=== PATIENT | male | born 1960 | race Caucasian/White ===

== ENCOUNTER 2023-10-28 09:11 | Outpatient (OUT) | payer OTHER, SELFPAY ==
[2023-10-28 10:10] LABS: Estimated Average Glucose 111 mg/dL; Glycohemoglobin A1C 5.5 % (4.5-6.2)
[2023-10-28 10:23] LABS: Basophils Absolute Auto 0.1 10^3/uL (0.0-0.1); Basophils Percent Auto 0.8 % (0.2-2.0); Eosinophils Absolute Auto 0.1 10^3/uL (0.0-0.7); Eosinophils Percent Auto 1.1 % (0.9-7.0); Hematocrit 40.8 % (42.0-54.0); Hemoglobin 12.8 g/dL (14.0-18.0); Immature Granulocytes Abs Auto 0.09 10^3/uL (0.00-0.03); Immature Granulocytes Pct Auto 0.8 % (0.0-0.5); Lymphocytes Absolute Auto 1.6 10^3/uL (1.2-3.8); Lymphocytes Percent Auto 14.5 % (20.5-60.0); Mean Corpuscular HGB Conc 31.4 g/dL (29.9-35.2); Mean Corpuscular Hemoglobin 26.3 pg (25.9-34.0); Mean Platelet Volume 9.5 fL (9.5-13.5); Monocytes Absolute Auto 0.8 10^3/uL (0.3-0.8); Monocytes Percent Auto 7.4 % (1.7-12.0); Neutrophils Absolute Auto 8.4 10^3/uL (1.4-6.5); Neutrophils Percent Auto 75.4 % (43.0-75.0); Platelet Count 280 10^3/uL (150-450); Red Blood Count 4.86 10^6/uL (4.70-6.10); White Blood Count 11.1 10^3/uL (4.0-11.0)
[2023-10-28 12:57] LABS: Alanine Aminotransferase 21 U/L (16-63); Albumin Globulin Ratio 0.7; Albumin Level 3.2 g/dL (3.4-5.0); Alkaline Phosphatase 62 U/L (46-116); Anion Gap 11.7; Aspartate Amino Transferase 21 U/L (15-37); Bilirubin Total 0.1 mg/dL (0.2-1.0); Calcium 8.9 mg/dL (8.5-10.1); Carbon Dioxide 30.3 mmol/L (21.0-32.0); Chloride 101 mmol/L (98-107); Chol HDL Ratio 3.5; Cholesterol 130 mg/dL (<=200); Estimated GFR (African America 52 (>=60); Estimated GFR (Non-African Ame 43 (>=60); Globulin 4.7 g/dL; Glucose 103 mg/dL (74-106); HDL Cholesterol 37 mg/dL (40-60); Sodium 139 mmol/L (136-145); Total Protein 7.9 g/dL (6.4-8.2); Triglycerides 166 mg/dL (<=150); Uric Acid 4.2 mg/dL (3.5-7.2); VLDL CHOLESTEROL 33.2 mg/dL
[2023-10-28 13:05] LABS: Prostate Specific Antigen Scrn 0.45 ng/mL (<=4.00)
[2023-10-29 14:07] LABS: Insulin 31.8 uIU/mL (2.6-24.9)
== END 2023-10-28 09:12 | disposition home or self-care (01) ==
PROVIDERS: PCP Nurse Practitioner Family; Visit Provider Nurse Practitioner Family
DX: Z00.00 Encounter for general adult medical examination without abnormal findings (principal); Z12.5 Encounter for screening for malignant neoplasm of prostate
CPT/HCPCS: 36415; 80053; 80061; 83036; 83525; 84550; 85025; G0103

== ENCOUNTER 2024-03-01 21:07 | Emergency (ER) | payer OTHER, SELFPAY ==
--- OUTSIDE RECORDS SUMMARY | 2024-03-01 21:13 | XMS_ITS | CCD ---
Author Organization [facility] Inform ion Partnership [facility] Care Team Providers Care Attendant Child Activity Name Role Phone JANESSA DAVALOS Attending Unavailable JANESSA DAVALOS Consulting Unavailable JANESSA DAVALOS Primary Care Unavailable JANESSA DAVALOS Admitting Unavailable Results Test Name Value Interpretation Reference Range Facil ity CBC AUTO DIFFon 08-29-2022 BASO # 0.1 103/ul Normal 0.0-0.1 [facility] Comment on above: Performed By: #### C BC #### [facility] [address] [place] [address] Dr. Med Angulo Basophils/100 WBC (Bld) 0.6 % Normal 0.2-2.0 [facility] Comment on above: Performed By: #### C BC #### [facility] [address] [address] [address] Med Angulo EO # 0.2 103/ul Normal 0.0-0.7 [facility] Comment on above: Performed By: #### C BC #### [facility] [address] [address] [address] Med Angulo Eosinophils/100 WBC (Bld) 1.3 % Normal 0.9-7.[address] [facility] Comment on above: Performed By: #### C BC #### [facility] [address] [address] [address] Med Anguol Erythrocyte distribution width (RBC) [Ratio] 13.8 % Normal 11.0-15.0 [facility] Comment on above: Performed By: #### C BC #### [facility] [address] [place] [address] Dr. Med Angulo Hematocrit (Bld) [Volume fraction] 40.6 % Critically low 42.0-54.0 [facility] Comment on above: Performed By: #### C BC #### [facility] [address] [place] [address] Dr. Med Angulo Hemoglobin (Bld) [Mass/Vol] 13.7 g/dL Critically low 14.0-18.0 [facility] Comment on above: Performed By: #### C BC #### [facility] [address] [place] [address] Dr. Med Angulo IG # 0.13 10e3/ul Critically high 0.00-0.03 [facility] Comment on above: Performed By: #### C BC #### [facility] [address] [place] [address] Dr. Med Angulo IG % 1.0 % Critically high 0.0-0.5 [facility] Comment on above: Performed By: #### C BC #### [facility] [address] [place] [address] Dr. Med Angulo LYMPH # 2.1 103/ul Normal 1.2-3.8 [facility] Comment on above: Performed By: #### C BC #### [facility] [address] [place] [address] Dr. Med Angulo Lymphocytes/100 WBC (Bld) 16.9 % Critically low 20.5-60.0 [facility] Comment on above: Performed By: #### C BC #### [facility] [address] [place] [address] Dr. Med Angulo MANUAL DIFF REQ NO Normal [facility] Comment on above: Performed By: #### C BC #### [facility] [address] [place] [address] Dr. Med Angulo MCH (RBC) [Entitic mass] 28.7 pg Normal 25.9-34.0 [facility] Comment on above: Performed By: #### C BC #### [facility] [address] [place] [address] Dr. Med Angulo MCHC (RBC) [Mass/Vol] 33.7 g/dL Normal 29.9-35.[address] [facility] Comment on above: Performed By: #### C BC #### [facility] [address] [address] [address] Med Angulo MCV (RBC) [Entitic vol] 85.1 fL Normal 80.0-94.0 [facility] Comment on above: Performed By: #### C BC #### [facility] [id number] Med Angulo MONO # 0.8 103/ul Normal 0.3-0.[address] [facility] Comment on above: Performed By: #### C BC #### [facility] [address] [address] [address] Med Angulo Monocytes/100 WBC (Bld) 6.4 % Normal 1.7-12.0 [facility] Comment on above: Performed By: #### C BC #### [facility] [address] [place] [address] Dr. Med Angulo NEUT # 9.3 103/ul Critically high 1.4-6.5 [facility] Comment on above: Performed By: #### C BC #### [facility] [address] [place] [address] Dr. Med Angulo Neutrophils/100 WBC (Bld) 73.8 % Normal 43.0-75.0 [facility] Comment on above: Performed By: #### C BC #### [facility] [address] [place] [address] Dr. Med Angulo Platelet mean volume (Bld) [Entitic vol] 9.8 fL Normal 9.5-13.[address] [facility] Comment on above: Performed By: #### C BC #### [facility] [address] [place] [address] Dr. Med Angulo PLT 292 103/ul Normal 150-[address] [facility] Comment on above: Performed By: #### C BC #### [facility] [address] [place], [place] [id number] Dr. Med Angulo RBC 4.77 106/ul Normal 4.70-6.[address] [facility] Comment on above: Performed By: #### C BC #### [facility] [address] [place], [place] [id number] Dr. Med Angulo WBC 12.6 103/ul Critically high 4.0-11.0 [facility] Comment on above: Performed By: #### C BC #### [facility] [address] [place] [address] Dr. Med Angulo GLYCOHEMOGLOBIN A1Con 2021 ADA RECOMMENDATION SEE BELOW Normal [facility] Comment on above: Result Comment: ADA RECOMMENDED LIMIT 4.0 - 6.0 ADA THERAPEUTIC TARGET < 7.0 ACTION SUGGESTED > 7.0 Performed By: #### A 1C #### [facility] [address] [place] [address] Dr. Med Angulo Glucose [Mass/Vol] 111 mg/dL Normal [facility] Comment on above: Performed By: #### A 1C #### [facility] [address] [place] [address] Dr. Med Angulo HbA1c (Bld) [Mass fraction] 5.5 % Normal 4.5-6.2 [facility] Comment on above: Performed By: #### A 1C #### [facility] [address] [place] [address] Dr. Med Angulo LIPID PROFILEon 08-29-2022 CHOL-HDL RATIO NORM SEE BELOW Normal [facility] Comment on above: Result Comment: 3.3 - 4.4 LOW RISK 4.4 - 7.1 AVERAGE RISK 7.1 - 11.0 MODERATE RISK >11.0 HIGH RISK Performed By: #### L IPID, CMP #### [facility] [address] [place] [address] Dr. Med Angulo Cholesterol [Mass/Vol] 128 mg/dL Normal <=[address] [facility] Comment on above: Performed By: #### L IPID, CMP #### [facility] [address] [place] [address] Dr. Med Angulo Cholesterol in HDL [Mass/Vol] 31 mg/dL Critically low 40-60 [facility] Comment on above: Performed By: #### L IPID, CMP #### [facility] [address] [place] [address] Dr. Med Angulo Cholesterol in LDL [Mass/Vol] 43.4 mg/dL Normal [facility] Comment on above: Performed By: #### L IPID, CMP #### [facility] [address] [address] [address] Med Angulo Cholesterol.total/Cho lesterol in HDL [Mass ratio] 4.1 {ratio} Normal [facility] Comment on above: Performed By: #### L IPID, CMP #### [facility] [address] [address] [address] Med Angulo HDL NORMAL > or = 60 mg/dl - LOW CARDIOVASCULAR RISK <40 mg/dl - HIGH CARDIOVASCULAR RISK Normal [facility] Comment on above: Performed By: #### L IPID, CMP #### [facility] [address] [address] [address] Med Angulo LDL CALC NORMAL SEE BELOW Normal [facility] Comment on above: Result Comment: <100 mg/dl OPTIMAL 100 - 129 mg/dl NEAR OR ABOVE OPTIMAL 130 - 159 mg/dl BORDERLINE HIGH 160 - 189 mg/dl HIGH >190 mg/dl VERY HIGH Performed By: #### L IPID, CMP #### [facility] [address] [address] [address] Med Angulo Triglyceride [Mass/Vol] 268 mg/dL Critically high <=[address] [facility] Comment on above: Performed By: #### L IPID, CMP #### [facility] [address] [address] [address] Med Angulo VLDL CALC 53.6 mg/dL Normal [facility] Comment on above: Performed By: #### L IPID, CMP #### [facility] [address] [address] [address] Med Angulo PROF 14(COMP METB)on 022 Albumin [Mass/Vol] 3.8 g/dL Normal 3.4-5.0 [facility] Comment on above: Performed By: #### L IPID, CMP #### [facility] [address] [address] [address] Med Angulo Albumin/Globulin [Mass ratio] 0.9 {ratio} Normal [facility] Comment on above: Performed By: #### L IPID, CMP #### [facility] [address] [address] [address] Med Angulo ALP [Catalytic activity/Vol] 63 U/L Normal 46-116 [facility] Comment on above: Performed By: #### L IPID, CMP #### [facility] [address] [address] [address] Med Angulo ALT [Catalytic activity/Vol] 60 U/L Normal 16-63 [facility] Comment on above: Performed By: #### L IPID, CMP #### [facility] [address] [address] [address] Med Angulo Anion gap [Moles/Vol] 12.5 mmol/L Normal [facility] Comment on above: Performed By: #### L IPID, CMP #### [facility] [address] [address] [address] Med Angulo AST [Catalytic activity/Vol] 40 U/L Critically high 15-37 [facility] Comment on above: Performed By: #### L IPID, CMP #### [facility] [address] [address] [address] Med Angulo Bilirubin [Mass/Vol] 0.5 mg/dL Normal 0.2-1.0 [facility] Comment on above: Performed By: #### L IPID, CMP #### [facility] [address] [address] [address] Med Angulo Calcium [Mass/Vol] 9.2 mg/dL Normal 8.5-10.1 [facility] Comment on above: Performed By: #### L IPID, CMP #### [facility] [address] [address] [address] Med Angulo Chloride [Moles/Vol] 99 mmol/L Normal 98-107 [facility] Comment on above: Performed By: #### L IPID, CMP #### [facility] [address] [address] [address] Med Angulo CO2 [Moles/Vol] 29.9 mmol/L Normal 21.0-32.0 [facility] Comment on above: Performed By: #### L IPID, CMP #### [facility] [address] [place] [address] Dr. Med Angulo Creatinine [Mass/Vol] 1.83 mg/dL Critically high 0.70-1.30 [facility] Comment on above: Performed By: #### L IPID, CMP #### [facility] [address] [place] [address] Dr. Med Angulo EGFR-AF GUATEMALAN 46 mL/min/1.73m2 Critically low >=60 [facility] Comment on above: Performed By: #### L IPID, CMP #### [facility] [address] [place] [address] Dr. Med Angulo EGFR-NON AF GUATEMALAN 38 mL/min/1.73m2 Critically low >=60 [facility] Comment on above: Performed By: #### L IPID, CMP #### [facility] [address] [place] [address] Dr. Med Angulo Globulin (S) [Mass/Vol] 4.4 g/dL Normal [facility] Comment on above: Performed By: #### L IPID, CMP #### [facility] [address] [place] [address] Dr. Med Angulo Glucose [Mass/Vol] 95 mg/dL Normal 74-106 [facility] Comment on above: Performed By: #### L IPID, CMP #### [facility] [address] [place] [address] Dr. Med Angulo Potassium [Moles/Vol] 4.4 mmol/L Normal 3.5-5.[address] [facility] Comment on above: Performed By: #### L IPID, CMP #### [facility] [address] [place] [address] Dr. Med Angulo Protein [Mass/Vol] 8.2 g/dL Normal 6.4-8.2 [facility] Comment on above: Performed By: #### L IPID, CMP #### [facility] [address] [place] [address] Dr. Med Angulo Sodium [Moles/Vol] 137 mmol/L Normal 136-145 [facility] Comment on above: Performed By: #### L IPID, CMP #### [facility] [address] [address] [address] Med Angulo Urea nitrogen [Mass/Vol] 26.0 mg/dL Critically high 7.0-18.0 [facility] Comment on above: Performed By: #### L IPID, CMP #### [facility] [address] [address] [address] Med Angulo Urea nitrogen/Creatinine [Mass ratio] 14.2 mg/mg Normal [facility] Comment on above: Performed By: #### L IPID, CMP #### [facility] [address] [place] [address] Dr. Mde Angulo Encounters Encounter Date Encounter Type Care Provider Facility Start: 09-03-2022 Encounter for genera l adult medical examination without abnormal findings JANESSA DAVALOS [facility] Start: 08-29-2022 End: 08-30-2022 ambulatory JANESSAGUZMAN DAVALOS Facility:[facility] Start: 08-29-2022 End: 08-30-2022 Encounter for general adult medical examination without abnormal findings JANESSA DAVALOS Facility:[facility] Payers Date Payer Category Payer Unknown [id number] 1960 Unknown [id number] Summary Purpose Family History No Family History Records Found Advance Directives No Advanced Directives Records Found Additional Source Comments (unrecognized sect ion and content) No Status Records Found INFORMATION SOURCE (unrecogn ized section and content) DATE CREATED AUTHOR 09/03/2022 [facility] FOR RECORDS PERTAINING TO PATIENTS WHO ARE OR HAVE BEEN ENROLLED IN A CHEMICAL DEPENDENCY/SUBSTANCEABUSE PROGRAM, SOME INFORMATION MAY BE OMITTED. This clinical summary was aggregated from multiple sources. Caution should be exercised in using it in the provision of clinical care. This summary normalizes information from multiple sources, and as a consequence, information in this document may materially change the coding, format and clinical context of patient data. In addition, data may be omitted in some cases. CLINICAL DECISIONS SHOULD BE BASED ON THE PRIMARY CLINICAL RECORDS. [facility] provides no warranty or guarantee of the accuracy or completeness of information in this document.
[2024-03-01 21:21] VITALS: BP 164/82; PULSE 55; TEMP 37.2; O2SAT 98; BMI 38.7
--- NOTE | 2024-03-01 21:39 | ED.SKABFB1 ---
HPI - Skin/Abscess/Foreign Bdy General Chief complaint: Skin/Abscess/Foreign Body Stated complaint: POSS POISON JAVIER/RASH Time Seen by Provider: 03/01/24 21:20 Source: patient Mode of arrival: walk-in Limitations: no limitations History of Present Illness HPI narrative: 64-year-old male presents for what he believes is poison javier. He is complaining of a pruritic red rash present on his face and hands. It started a few days ago after pulling some weeds which in retrospect he believes was poison javier. No difficulty breathing or swallowing. No drainage. Related Data Home Medications ?Medication ?Instructions ?Recorded ?Confirmed lisinopril 20 1 tab PO DAILY 03/01/24 03/01/24 mg-hydrochlorothiazide 12.5 mg tablet metformin 1,000 mg tablet 500 mg PO BID 03/01/24 03/01/24 metoprolol tartrate 100 mg tablet 100 mg PO Q12H 03/01/24 03/01/24 spironolactone 25 mg tablet 25 mg PO Q12H 03/01/24 03/01/24 Previous Rx's ?Medication ?Instructions ?Recorded prednisone 10 mg tablet See Rx Instructions .Route 03/01/24 .COMPLEX #18 tabs Allergies Allergy/AdvReac Type Severity Reaction Status Date / Time No Known Drug Allergies Allergy Verified 03/01/24 21:27 Review of Systems ROS Narrative A ten point review of systems is negative except as noted above. Exam Narrative Exam Narrative: Nurses note and vital signs reviewed and patient is not hypoxic. General: The patient appears well and in no apparent distress. Patient is resting comfortably on cart. Skin: Warm, dry, no pallor noted. There is erythematous raised rash present on his face and both hands. Head: Normocephalic, atraumatic Eye: Normal conjunctiva, no drainage Ears, Nose, Mouth, and Throat: oral mucosa is moist. Nares patent. Cardiovascular: Regular Rate and Rhythm Respiratory: Patient is in no distress, no accessory muscle use Back: non-tender GI: Soft and nontender Musculoskeletal: The patient has no evidence of calf tenderness, no pitting edema, symmetrical pulses noted bilaterally Neurological: A&O, normal speech Psychiatric: Cooperative Constitutional Vital Signs, click to edit/add: Last Vital Signs Temp 99 F 03/01/24 21:21 Pulse 55 L 03/01/24 21:21 Resp 20 03/01/24 21:21 BP 164/82 H 03/01/24 21:21 Pulse Ox 98 03/01/24 21:21 O2 Del Method Room Air 03/01/24 21:21 Course Vital Signs Vital signs: Vital Signs Temperature 99 F 03/01/24 21:21 Pulse Rate 55 L 03/01/24 21:21 Respiratory Rate 20 03/01/24 21:21 Blood Pressure 164/82 H 03/01/24 21:21 Pulse Oximetry 98 03/01/24 21:21 Oxygen Delivery Method Room Air 03/01/24 21:21 Temperature 99 F 03/01/24 21:21 Pulse Rate 55 L 03/01/24 21:21 Respiratory Rate 20 03/01/24 21:21 Blood Pressure 164/82 H 03/01/24 21:21 Pulse Oximetry 98 03/01/24 21:21 Oxygen Delivery Method Room Air 03/01/24 21:21 MDM - Skin/Abscess/Foreign Bdy MDM Narrative Medical decision making narrative: My clinical impression is that the patient has poison javier dermatitis. He was given IM Solu-Medrol and placed on a short course of prednisone. He is on metformin but does not have the ability to check his blood sugars at home. Treatment diagnosis and follow-up were discussed with the patient. Differential Diagnosis Differential diagnosis: Likely viral exanthem, cellulitis and contact dermatitis Discharge Plan Discharge Stand Alone Forms: Portal Instructions Chief Complaint: Skin/Abscess/Foreign Body Clinical Impression: Poison javier dermatitis Patient Disposition: Home, Self-Care Time of Disposition Decision: 21:37 Condition: Good Mode of Transportation: Private Vehicle Prescriptions / Home Meds: New prednisone 10 mg tablet See Rx Instructions .ROUTE .COMPLEX Qty: 18 0RF Rx Instructions: 3 by mouth daily for three days then 2 by mouth daily for three days then 1 by mouth daily for three days No Action lisinopril-hydrochlorothiazide 20-12.5 mg tablet 1 tab PO DAILY metformin 1,000 mg tablet 500 mg PO BID metoprolol tartrate 100 mg tablet 100 mg PO Q12H spironolactone 25 mg tablet 25 mg PO Q12H Print Language: Turkish Instructions: Poison Javier (ED) Referrals: JANESSA DAVALOS [Primary Care Provider] - 1 week
[2024-03-01] MEDS: METHYLPREDNISOLONE SOD SUCC PF 125 MG/2 ML VIAL IM (21:44)
== END 2024-03-01 21:50 | disposition home or self-care (01) ==
PROVIDERS: Emergency Provider Emergency Medicine; PCP Nurse Practitioner Family
DX: L23.7 Allergic contact dermatitis due to plants, except food (principal)
CPT/HCPCS: 96372; 99284; J2919

== ENCOUNTER 2024-03-30 10:40 | Outpatient (OUT) | payer OTHER, SELFPAY ==
--- OUTSIDE RECORDS SUMMARY | 2024-03-30 10:44 | XMS_ITS | CCD ---
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 Med Angulo Basophils/100 WBC (Bld) 0.6 % Normal 0.2-2.0 [facility] Comment on above: Performed By: #### C BC #### [facility] [address] [address] [address] Med Angulo EO # 0.2 103/ul Normal 0.0-0.7 [facility] Comment on above: Performed By: #### C BC #### [facility] [address] [address] [address] Med Angulo Eosinophils/100 WBC (Bld) 1.3 % Normal 0.9-7.0 [facility] Comment on above: Performed By: #### C BC #### [facility] [address] [address] [address] Med Angulo Erythrocyte distribution width (RBC) [Ratio] 13.8 % Normal 11.0-15.0 [facility] Comment on above: Performed By: #### C BC #### [facility] [address] [place] [address] Dr. Med Angulo Hematocrit (Bld) [Volume fraction] 40.6 % Critically low 42.0-54.0 [facility] Comment on above: Performed By: #### C BC #### [facility] [address] [place] [address] Dr. Med Angulo Hemoglobin (Bld) [Mass/Vol] 13.7 g/dL Critically low 14.0-18.0 [facility] Comment on above: Performed By: #### C BC #### [facility] [address] [place] [address] Dr. Med Angulo IG # 0.13 10e3/ul Critically high 0.00-0.03 [facility] Comment on above: Performed By: #### C BC #### [facility] [address] [place] [address] Dr. Med Angulo IG % 1.0 % Critically high 0.0-0.5 [facility] Comment on above: Performed By: #### C BC #### [facility] [address] [place] [address] Dr. Med Angulo LYMPH # 2.1 103/ul Normal 1.2-3.8 [facility] Comment on above: Performed By: #### C BC #### [facility] [address] [place] [address] Dr. Med Angulo Lymphocytes/100 WBC (Bld) 16.9 % Critically low 20.5-60.0 [facility] Comment on above: Performed By: #### C BC #### [facility] [address] [place] [address] Dr. Med Angulo MANUAL DIFF REQ NO Normal [facility] Comment on above: Performed By: #### C BC #### [facility] [address] [place] [address] Dr. Med Angulo MCH (RBC) [Entitic mass] 28.7 pg Normal 25.9-34.0 [facility] Comment on above: Performed By: #### C BC #### [facility] [address] [place] [address] Dr. Med Angulo MCHC (RBC) [Mass/Vol] 33.7 g/dL Normal 29.9-35.2 [facility] Comment on above: Performed By: #### C BC #### [facility] [address] [address] [address] Med Angulo MCV (RBC) [Entitic vol] 85.1 fL Normal 80.0-94.0 [facility] Comment on above: Performed By: #### C BC #### [facility] [id number] Med Angulo MONO # 0.8 103/ul Normal 0.3-0.8 [facility] Comment on above: Performed By: #### C BC #### [facility] [address] [address] [address] Med Angulo Monocytes/100 WBC (Bld) 6.4 % Normal 1.7-12.0 [facility] Comment on above: Performed By: #### C BC #### [facility] [address] [place] [address] Dr. Med Angulo NEUT # 9.3 103/ul Critically high 1.4-6.5 [facility] Comment on above: Performed By: #### C BC #### [facility] [address] [place] [address] Dr. Med Angulo Neutrophils/100 WBC (Bld) 73.8 % Normal 43.0-75.0 [facility] Comment on above: Performed By: #### C BC #### [facility] [address] [place] [address] Dr. Med Angulo Platelet mean volume (Bld) [Entitic vol] 9.8 fL Normal 9.5-13.5 [facility] Comment on above: Performed By: #### C BC #### [facility] [address] [place] [address] Dr. Med Angulo PLT 292 103/ul Normal 150-450 [facility] Comment on above: Performed By: #### C BC #### [facility] [address] [place], [place] [id number] Dr. Med Angulo RBC 4.77 106/ul Normal 4.70-6.10 [facility] Comment on above: Performed By: #### C BC #### [facility] [address] [place], [place] [id number] Dr. Med Angulo WBC 12.6 103/ul Critically high 4.0-11.0 [facility] Comment on above: Performed By: #### C BC #### [facility] [address] [place] [address] Dr. Med Angulo GLYCOHEMOGLOBIN A1Con 2021 ADA RECOMMENDATION SEE BELOW Normal [facility] Comment on above: Result Comment: ADA RECOMMENDED LIMIT 4.0 - 6.0 ADA THERAPEUTIC TARGET < 7.0 ACTION SUGGESTED > 7.0 Performed By: #### A 1C #### [facility] [address] [place] [address] Dr. Med Angulo Glucose [Mass/Vol] 111 mg/dL Normal [facility] Comment on above: Performed By: #### A 1C #### [facility] [address] [place] [address] Dr. Med Angulo HbA1c (Bld) [Mass fraction] 5.5 % Normal 4.5-6.2 [facility] Comment on above: Performed By: #### A 1C #### [facility] [address] [place] [address] Dr. Med Angulo LIPID PROFILEon 08-29-2022 CHOL-HDL RATIO NORM SEE BELOW Normal [facility] Comment on above: Result Comment: 3.3 - 4.4 LOW RISK 4.4 - 7.1 AVERAGE RISK 7.1 - 11.0 MODERATE RISK >11.0 HIGH RISK Performed By: #### L IPID, CMP #### [facility] [address] [place] [address] Dr. Med Angulo Cholesterol [Mass/Vol] 128 mg/dL Normal <=200 [facility] Comment on above: Performed By: #### L IPID, CMP #### [facility] [address] [place] [address] Dr. Med Angulo Cholesterol in HDL [Mass/Vol] 31 mg/dL Critically low 40-60 [facility] Comment on above: Performed By: #### L IPID, CMP #### [facility] [address] [place] [address] Dr. Med Angulo Cholesterol in LDL [Mass/Vol] 43.4 mg/dL Normal [facility] Comment on above: Performed By: #### L IPID, CMP #### [facility] [address] [address] [address] Med Angulo Cholesterol.total/Cho lesterol in HDL [Mass ratio] 4.1 {ratio} Normal [facility] Comment on above: Performed By: #### L IPID, CMP #### [facility] [address] [address] [address] Med Angulo HDL NORMAL > or = 60 mg/dl - LOW CARDIOVASCULAR RISK <40 mg/dl - HIGH CARDIOVASCULAR RISK Normal [facility] Comment on above: Performed By: #### L IPID, CMP #### [facility] [address] [address] [address] Med Angulo LDL CALC NORMAL SEE BELOW Normal [facility] Comment on above: Result Comment: <100 mg/dl OPTIMAL 100 - 129 mg/dl NEAR OR ABOVE OPTIMAL 130 - 159 mg/dl BORDERLINE HIGH 160 - 189 mg/dl HIGH >190 mg/dl VERY HIGH Performed By: #### L IPID, CMP #### [facility] [address] [address] [address] Med Angulo Triglyceride [Mass/Vol] 268 mg/dL Critically high <=150 [facility] Comment on above: Performed By: #### L IPID, CMP #### [facility] [address] [address] [address] Med Angulo VLDL CALC 53.6 mg/dL Normal [facility] Comment on above: Performed By: #### L IPID, CMP #### [facility] [address] [address] [address] Med Angulo PROF 14(COMP METB)on 022 Albumin [Mass/Vol] 3.8 g/dL Normal 3.4-5.0 [facility] Comment on above: Performed By: #### L IPID, CMP #### [facility] [address] [address] [address] Med Angulo Albumin/Globulin [Mass ratio] 0.9 {ratio} Normal [facility] Comment on above: Performed By: #### L IPID, CMP #### [facility] [address] [address] [address] Med Angulo ALP [Catalytic activity/Vol] 63 U/L Normal 46-116 [facility] Comment on above: Performed By: #### L IPID, CMP #### [facility] [address] [address] [address] Med Angulo ALT [Catalytic activity/Vol] 60 U/L Normal 16-63 [facility] Comment on above: Performed By: #### L IPID, CMP #### [facility] [address] [address] [address] Med Angulo Anion gap [Moles/Vol] 12.5 mmol/L Normal Th [facility] Comment on above: Performed By: #### L IPID, CMP #### [facility] [address] [address] [address] Med Angulo AST [Catalytic activity/Vol] 40 U/L Critically high 15-37 [facility] Comment on above: Performed By: #### L IPID, CMP #### [facility] [address] [address] [address] Med Angulo Bilirubin [Mass/Vol] 0.5 mg/dL Normal 0.2-1.0 [facility] Comment on above: Performed By: #### L IPID, CMP #### [facility] [address] [address] [address] Med Angulo Calcium [Mass/Vol] 9.2 mg/dL Normal 8.5-10.1 [facility] Comment on above: Performed By: #### L IPID, CMP #### [facility] [address] [address] [address] Med Angulo Chloride [Moles/Vol] 99 mmol/L Normal 98-107 [facility] Comment on above: Performed By: #### L IPID, CMP #### [facility] [address] [address] [address] Med Angulo CO2 [Moles/Vol] 29.9 mmol/L Normal 21.0-32.0 [facility] Comment on above: Performed By: #### L IPID, CMP #### [facility] [address] [place] [address] Dr. Med Angulo Creatinine [Mass/Vol] 1.83 mg/dL Critically high 0.70-1.30 [facility] Comment on above: Performed By: #### L IPID, CMP #### [facility] [address] [place] [address] Dr. Med Angulo EGFR-AF LUXEMBOURGER 46 mL/min/1.73m2 Critically low >=60 [facility] Comment on above: Performed By: #### L IPID, CMP #### [facility] [address] [place] [address] Dr. Med Angulo EGFR-NON AF LUXEMBOURGER 38 mL/min/1.73m2 Critically low >=60 [facility] Comment on above: Performed By: #### L IPID, CMP #### [facility] [address] [place] [address] Dr. Med Angulo Globulin (S) [Mass/Vol] 4.4 g/dL Normal [facility] Comment on above: Performed By: #### L IPID, CMP #### [facility] [address] [place] [address] Dr. Med Angulo Glucose [Mass/Vol] 95 mg/dL Normal 74-106 [facility] Comment on above: Performed By: #### L IPID, CMP #### [facility] [address] [place] [address] Dr. Med Angulo Potassium [Moles/Vol] 4.4 mmol/L Normal 3.5-5.1 [facility] Comment on above: Performed By: #### L IPID, CMP #### [facility] [address] [place] [address] Dr. Med Angulo Protein [Mass/Vol] 8.2 g/dL Normal 6.4-8.2 [facility] Comment on above: Performed By: #### L IPID, CMP #### [facility] [address] [place] [address] Dr. Med Angulo Sodium [Moles/Vol] 137 mmol/L Normal 136-145 [facility] Comment on above: Performed By: #### L IPID, CMP #### [facility] [address] [address] [address] Med Angulo Urea nitrogen [Mass/Vol] 26.0 mg/dL Critically high 7.0-18.0 [facility] Comment on above: Performed By: #### L IPID, CMP #### [facility] [address] [address] [address] Med Angulo Urea nitrogen/Creatinine [Mass ratio] 14.2 mg/mg Normal [facility] Comment on above: Performed By: #### L IPID, CMP #### [facility] [address] [place] [address] Dr. Med Angulo Encounters Encounter Date Encounter Type Care Provider Facility Start: 09-03-2022 Encounter for genera l adult medical examination without abnormal findings JANESSA DAVALOS [facility] Start: 08-29-2022 End: 08-30-2022 ambulatory JANESSAGUZMAN DAVALOS Facility:[facility] Start: 08-29-2022 End: 08-30-2022 Encounter for general adult medical examination without abnormal findings JANESSA DAVALOS Facility:[facility] Payers Date Payer Category Payer Unknown [id number] 1960 Unknown [id number] Summary Purpose Family History No Family History Records Found Advance Directives No Advanced Directives Records Found Additional Source Comments (unrecognized sect ion and content) No Status Records Found INFORMATION SOURCE (unrecogn ized section and content) DATE CREATED AUTHOR 09/03/2022 [facility] FOR RECORDS PERTAINING TO PATIENTS WHO ARE [...] BE BASED ON THE PRIMARY CLINICAL RECORDS. [facility] provides no warranty or guarantee of the accuracy or completeness of information in this document.
[2024-03-30 12:02] LABS: Estimated Average Glucose 120 mg/dL; Glycohemoglobin A1C 5.8 % (4.5-6.2)
== END 2024-03-30 10:41 | disposition home or self-care (01) ==
PROVIDERS: PCP Nurse Practitioner Family; Visit Provider Nurse Practitioner Family
DX: E11.9 Type 2 diabetes mellitus without complications (principal)
CPT/HCPCS: 36415; 83036

== ENCOUNTER 2024-09-20 09:45 | Outpatient (OUT) | payer OTHER, SELFPAY ==
--- OUTSIDE RECORDS SUMMARY | 2024-09-20 10:04 | XMS_ITS | CCD ---
Author Organization [facility] Inform ion Partnership [facility] Care Team Providers Care Mental Retardation Nurse Name Role Phone JANESSA DAVALOS Attending Unavailable JANESSA DAVALOS Consulting Unavailable JANESSA DAVALOS Primary Care Unavailable JANESSA DAVALOS Admitting Unavailable Results Test Name Value Interpretation Reference Range Facil ity CBC AUTO DIFFon 08-29-2022 BASO # 0.1 103/ul Normal 0.0-0.1 [facility] Comment on above: Performed By: #### C BC #### [facility] [address] [place] [address] Dr. Med Angulo Basophils/100 WBC (Bld) 0.6 % Normal 0.2-2.0 [facility] Comment on above: Performed By: #### C BC #### [facility] [address] [address] [address] Med Angulo EO # 0.2 103/ul Normal 0.0-0.7 [facility] Comment on above: Performed By: #### C BC #### [facility] [address] [address] [address] Med Angulo Eosinophils/100 WBC (Bld) 1.3 % Normal 0.9-7.0 [facility] Comment on above: Performed By: #### C BC #### [facility] [address] [address] [address] Med Angulo Erythrocyte distribution width (RBC) [Ratio] 13.8 % Normal 11.0-15.0 [facility] Comment on above: Performed By: #### C BC #### [facility] [address] [place] [address] Dr. Med Angulo Hematocrit (Bld) [Volume fraction] 40.6 % Critically low 42.0-54.0 [facility] Comment on above: Performed By: #### C BC #### [facility] [address] [place] [address] Dr. Med Angulo Hemoglobin (Bld) [Mass/Vol] 13.7 g/dL Critically low 14.0-18.0 [facility] Comment on above: Performed By: #### C BC #### [facility] [address] [place] [address] Dr. Med Angulo IG # 0.13 10e3/ul Critically high 0.00-0.03 [facility] Comment on above: Performed By: #### C BC #### [facility] [address] [place] [address] Dr. Med Angulo IG % 1.0 % Critically high 0.0-0.5 [facility] Comment on above: Performed By: #### C BC #### [facility] [address] [place] [address] Dr. Med Angulo LYMPH # 2.1 103/ul Normal 1.2-3.8 [facility] Comment on above: Performed By: #### C BC #### [facility] [address] [place] [address] Dr. Med Angulo Lymphocytes/100 WBC (Bld) 16.9 % Critically low 20.5-60.0 [facility] Comment on above: Performed By: #### C BC #### [facility] [address] [place] [address] Dr. Med Angulo MANUAL DIFF REQ NO Normal [facility] Comment on above: Performed By: #### C BC #### [facility] [address] [place] [address] Dr. Med Angulo MCH (RBC) [Entitic mass] 28.7 pg Normal 25.9-34.0 [facility] Comment on above: Performed By: #### C BC #### [facility] [address] [place] [address] Dr. Med Angulo MCHC (RBC) [Mass/Vol] 33.7 g/dL Normal 29.9-35.2 [facility] Comment on above: Performed By: #### C BC #### [facility] [address] [address] [address] Med Angulo MCV (RBC) [Entitic vol] 85.1 fL Normal 80.0-94.0 [facility] Comment on above: Performed By: #### C BC #### [facility] [id number] Med Angulo MONO # 0.8 103/ul Normal 0.3-0.8 [facility] Comment on above: Performed By: #### C BC #### [facility] [address] [address] [address] Med Angulo Monocytes/100 WBC (Bld) 6.4 % Normal 1.7-12.0 [facility] Comment on above: Performed By: #### C BC #### [facility] [address] [place] [address] Dr. Med Angulo NEUT # 9.3 103/ul Critically high 1.4-6.5 [facility] Comment on above: Performed By: #### C BC #### [facility] [address] [place] [address] Dr. Med Angulo Neutrophils/100 WBC (Bld) 73.8 % Normal 43.0-75.0 [facility] Comment on above: Performed By: #### C BC #### [facility] [address] [place] [address] Dr. Med Angulo Platelet mean volume (Bld) [Entitic vol] 9.8 fL Normal 9.5-13.5 [facility] Comment on above: Performed By: #### C BC #### [facility] [address] [place] [address] Dr. Med Angulo PLT 292 103/ul Normal 150-450 [facility] Comment on above: Performed By: #### C BC #### [facility] [address] [place], [place] [id number] Dr. Med Angulo RBC 4.77 106/ul Normal 4.70-6.10 [facility] Comment on above: Performed By: #### C BC #### [facility] [address] [place], [place] [id number] Dr. Med Angulo WBC 12.6 103/ul Critically high 4.0-11.0 [facility] Comment on above: Performed By: #### C BC #### [facility] [address] [place] [address] Dr. Med Angulo GLYCOHEMOGLOBIN A1Con 2021 ADA RECOMMENDATION SEE BELOW Normal [facility] Comment on above: Result Comment: ADA RECOMMENDED LIMIT 4.0 - 6.0 ADA THERAPEUTIC TARGET < 7.0 ACTION SUGGESTED > 7.0 Performed By: #### A 1C #### [facility] [address] [place] [address] Dr. Med Angulo Glucose [Mass/Vol] 111 mg/dL Normal [facility] Comment on above: Performed By: #### A 1C #### [facility] [address] [place] [address] Dr. Med Angulo HbA1c (Bld) [Mass fraction] 5.5 % Normal 4.5-6.2 [facility] Comment on above: Performed By: #### A 1C #### [facility] [address] [place] [address] Dr. Med Angulo LIPID PROFILEon 08-29-2022 CHOL-HDL RATIO NORM SEE BELOW Normal [facility] Comment on above: Result Comment: 3.3 - 4.4 LOW RISK 4.4 - 7.1 AVERAGE RISK 7.1 - 11.0 MODERATE RISK >11.0 HIGH RISK Performed By: #### L IPID, CMP #### [facility] [address] [place] [address] Dr. Med Angulo Cholesterol [Mass/Vol] 128 mg/dL Normal <=200 [facility] Comment on above: Performed By: #### L IPID, CMP #### [facility] [address] [place] [address] Dr. Med Angulo Cholesterol in HDL [Mass/Vol] 31 mg/dL Critically low 40-60 [facility] Comment on above: Performed By: #### L IPID, CMP #### [facility] [address] [place] [address] Dr. Med Angulo Cholesterol in LDL [Mass/Vol] 43.4 mg/dL Normal [facility] Comment on above: Performed By: #### L IPID, CMP #### [facility] [address] [address] [address] Med Angulo Cholesterol.total/Cho lesterol in HDL [Mass ratio] 4.1 {ratio} Normal [facility] Comment on above: Performed By: #### L IPID, CMP #### [facility] [address] [address] [address] Med Angulo HDL NORMAL > or = 60 mg/dl - LOW CARDIOVASCULAR RISK <40 mg/dl - HIGH CARDIOVASCULAR RISK Normal [facility] Comment on above: Performed By: #### L IPID, CMP #### [facility] [address] [address] [address] Med Angulo LDL CALC NORMAL SEE BELOW Normal [facility] Comment on above: Result Comment: <100 mg/dl OPTIMAL 100 - 129 mg/dl NEAR OR ABOVE OPTIMAL 130 - 159 mg/dl BORDERLINE HIGH 160 - 189 mg/dl HIGH >190 mg/dl VERY HIGH Performed By: #### L IPID, CMP #### [facility] [address] [address] [address] Med Angulo Triglyceride [Mass/Vol] 268 mg/dL Critically high <=150 [facility] Comment on above: Performed By: #### L IPID, CMP #### [facility] [address] [address] [address] Med Angulo VLDL CALC 53.6 mg/dL Normal [facility] Comment on above: Performed By: #### L IPID, CMP #### [facility] [address] [address] [address] Med Angulo PROF 14(COMP METB)on 022 Albumin [Mass/Vol] 3.8 g/dL Normal 3.4-5.0 [facility] Comment on above: Performed By: #### L IPID, CMP #### [facility] [address] [address] [address] Med Angulo Albumin/Globulin [Mass ratio] 0.9 {ratio} Normal [facility] Comment on above: Performed By: #### L IPID, CMP #### [facility] [address] [address] [address] Med Angulo ALP [Catalytic activity/Vol] 63 U/L Normal 46-116 [facility] Comment on above: Performed By: #### L IPID, CMP #### [facility] [address] [address] [address] Med Angulo ALT [Catalytic activity/Vol] 60 U/L Normal 16-63 [facility] Comment on above: Performed By: #### L IPID, CMP #### [facility] [address] [address] [address] Med Angulo Anion gap [Moles/Vol] 12.5 mmol/L Normal [facility] Comment on above: Performed By: #### L IPID, CMP #### [facility] [address] [address] [address] Med Angulo AST [Catalytic activity/Vol] 40 U/L Critically high 15-37 [facility] Comment on above: Performed By: #### L IPID, CMP #### [facility] [address] [address] [address] Med Angulo Bilirubin [Mass/Vol] 0.5 mg/dL Normal 0.2-1.0 [facility] Comment on above: Performed By: #### L IPID, CMP #### [facility] [address] [address] [address] Med Angulo Calcium [Mass/Vol] 9.2 mg/dL Normal 8.5-10.1 [facility] Comment on above: Performed By: #### L IPID, CMP #### [facility] [address] [address] [address] Med Angulo Chloride [Moles/Vol] 99 mmol/L Normal 98-107 [facility] Comment on above: Performed By: #### L IPID, CMP #### [facility] [address] [address] [address] Med Angulo CO2 [Moles/Vol] 29.9 mmol/L Normal 21.0-32.0 [facility] Comment on above: Performed By: #### L IPID, CMP #### [facility] [address] [place] [address] Dr. Med Angulo Creatinine [Mass/Vol] 1.83 mg/dL Critically high 0.70-1.30 [facility] Comment on above: Performed By: #### L IPID, CMP #### [facility] [address] [place] [address] Dr. Med Angulo EGFR-AF TUNISIAN 46 mL/min/1.73m2 Critically low >=60 [facility] Comment on above: Performed By: #### L IPID, CMP #### [facility] [address] [place] [address] Dr. Med Angulo EGFR-NON AF TUNISIAN 38 mL/min/1.73m2 Critically low >=60 [facility] Comment on above: Performed By: #### L IPID, CMP #### [facility] [address] [place] [address] Dr. Med Angulo Globulin (S) [Mass/Vol] 4.4 g/dL Normal [facility] Comment on above: Performed By: #### L IPID, CMP #### [facility] [address] [place] [address] Dr. Med Angulo Glucose [Mass/Vol] 95 mg/dL Normal 74-106 [facility] Comment on above: Performed By: #### L IPID, CMP #### [facility] [address] [place] [address] Dr. Med Angulo Potassium [Moles/Vol] 4.4 mmol/L Normal 3.5-5.1 [facility] Comment on above: Performed By: #### L IPID, CMP #### [facility] [address] [place] [address] Dr. Med Angulo Protein [Mass/Vol] 8.2 g/dL Normal 6.4-8.2 [facility] Comment on above: Performed By: #### L IPID, CMP #### [facility] [address] [place] [address] Dr. Med Angulo Sodium [Moles/Vol] 137 mmol/L Normal 136-145 [facility] Comment on above: Performed By: #### L IPID, CMP #### [facility] [address] [address] [address] Med Angulo Urea nitrogen [Mass/Vol] 26.0 mg/dL Critically high 7.0-18.0 [facility] Comment on above: Performed By: #### L IPID, CMP #### [facility] [address] [address] [address] Med Angulo Urea nitrogen/Creatinine [Mass ratio] 14.2 mg/mg Normal [facility] Comment on above: Performed By: #### L IPID, CMP #### [facility] [address] [place] [address] Dr. Med Angulo Encounters Encounter Date Encounter Type Care Provider Facility Start: 09-03-2022 Encounter for genera l adult medical examination without abnormal findings JANESSA DAVALOS [facility] Start: 08-29-2022 End: 08-30-2022 ambulatory JANESSAGUZMAN DAVALOS Facility:[facility] Start: 08-29-2022 End: 08-30-2022 Encounter for general adult medical examination without abnormal findings JANESSA DAVALOS Facility:[facility] Payers Date Payer Category Payer Unknown [id number] 1960 Unknown [id number] Summary Purpose Family History No Family History Records Found Advance Directives No Advanced Directives Records Found Additional Source Comments (unrecognized sect ion and content) No Status Records Found INFORMATION SOURCE (unrecogn ized section and content) DATE CREATED AUTHOR 09/03/2022 [facility] FOR RECORDS PERTAINING TO PATIENTS WHO [...] BE BASED ON THE PRIMARY CLINICAL RECORDS. [facility]. provides no warranty or guarantee of the accuracy or completeness of information in this document.
[2024-09-20 10:05] LABS: Bilirubin Urine NEGATIVE (NEGATIVE); Blood Urine MODERATE (NEGATIVE); Clarity Urine CLEAR (CLEAR); Color Urine LT. YELLOW (YELLOW); Glucose Urine UA NEGATIVE (NEGATIVE); Ketones Urine NEGATIVE (NEGATIVE); Leukocyte Esterase Urine SMALL (NEGATIVE); Nitrite Urine POSITIVE (NEGATIVE); Protein Urine TRACE mg/dL (NEG/TRACE); Urobilinogen Urine 0.2 EU/dL (0.2-1.0)
[2024-09-20 10:40] LABS: Bacteria Urine SMALL #/HPF (NONE SEEN); Mucus Urine NONE SEEN (NONE SEEN)
[2024-09-20 10:41] LABS: Cast Seen? NONE SEEN #/LPF (NONE SEEN); Crystals Seen? None Seen #/HPF (None Seen); Squamous Epithelial Cell Urine RARE #/LPF (NONE/RARE); Urine Culture Indicated ALREADY ORDERED
== END 2024-09-20 09:46 | disposition home or self-care (01) ==
LOC: LAB 09:46
PROVIDERS: PCP Nurse Practitioner Family; Visit Provider Nurse Practitioner Family
DX: R31.9 Hematuria, unspecified (principal)
CPT/HCPCS: 81001; 87086; 87150; 87186

== ENCOUNTER 2024-10-08 07:12 | Outpatient (OUT) | payer OTHER, SELFPAY ==
[2024-10-08 07:53] LABS: Bilirubin Urine NEGATIVE (NEGATIVE); Blood Urine SMALL (NEGATIVE); Clarity Urine CLEAR (CLEAR); Color Urine LT. YELLOW (YELLOW); Glucose Urine UA NEGATIVE (NEGATIVE); Ketones Urine NEGATIVE (NEGATIVE); Leukocyte Esterase Urine NEGATIVE (NEGATIVE); Nitrite Urine NEGATIVE (NEGATIVE); Protein Urine NEGATIVE (NEG/TRACE); Urobilinogen Urine 0.2 EU/dL (0.2-1.0)
[2024-10-08 08:04] LABS: Bacteria Urine TRACE #/HPF (NONE SEEN); Cast Seen? NONE SEEN #/LPF (NONE SEEN); Crystals Seen? None Seen #/HPF (None Seen); Mucus Urine NONE SEEN (NONE SEEN); Squamous Epithelial Cell Urine FEW #/LPF (NONE/RARE); WBC Urine 0-2 #/HPF (NONE SEEN)
[2024-10-08 17:34] LABS: BOX Test Reference Lab FIRELANDS
== END 2024-10-08 07:13 | disposition home or self-care (01) ==
LOC: LAB 07:13
PROVIDERS: PCP Nurse Practitioner Family; Visit Provider Nurse Practitioner Family
DX: N39.0 Urinary tract infection, site not specified (principal)
CPT/HCPCS: 36415; 81001; 87086

== ENCOUNTER 2024-11-11 08:02 | Day surgery (SDC) | payer OTHER, SELFPAY ==
--- OUTSIDE RECORDS SUMMARY | 2024-11-11 08:06 | XMS_ITS | CCD ---
Author Organization [facility] Team Providers Care Special Education Inclusion Teacher Name Role Phone JESSICA MURPHY Attending Unavailable JESSICA MURPHY Consulting Unavailable JESSICA MURPHY Primary Care Unavailable JESSICA MURPHY Admitting Unavailable NAKITA MENJIVAR Attending Unavailable JESSICA MURPHY Referring Unavailable NAKITA MENJIVAR Attending Unavailable NAKITA MENJIVAR Admitting Unavailable JESSICA MURPHY Primary Care Physician [phone] Nikolai ACOSTA Attending Unavailable Allergies Allergy Classification Reported Allergen(s) Allergy Type Date of Onset Reaction(s) Facility (2 sources) No Known Medication Allergies; Translations: [No Known Medication Allergies] Propensity to adverse reactions (disorder) [facility] Repository Medications Current Medications Medication Drug Class(es) Dates Sig (Normalized) Sig (Original) allopurinol 300 mg oral tablet (2 sources) Xanthine Oxidase Inhibitor Start: 5 allopurinol 300 mg Tab Oral, Refills(s) 0 Start Date: 10/24/24 Status: Ordered FLUoxetine 10 mg oral capsule (2 sources) Serotonin Reuptake Inhibitor Start: 5 FLUoxetine 10 mg Cap 10 mg = 1 cap(s), Refills(s) 0 Start Date: 10/24/24 Status: Ordered hydroCHLOROthiazide 12.5 mg / lisinopril 20 mg oral tablet (2 sources) Thiazide Diuretic, Angiotensin Converting Enzyme Inhibitor Start: 5 hydrochlorothiazid e-lisinopril 12.5 mg-20 mg Tab 1 tab(s), Refill(s) 0 Start Date: 10/24/24 Status: Ordered metFORMIN hydrochloride 1000 mg oral tablet (2 sources) Biguanide Start: 5 metformin 1000 mg Tab 1,000 mg = 1 tab(s), Refills(s) 0 Start Date: 10/24/24 Status: Ordered 24 hr metoprolol succinate 100 mg extended release oral tablet (2 sources) beta-Adrenergic Jenn Start: 5 take 1 tablet by mouth once daily metoprolol succinate 100 mg ER Tab 100 mg = 1 tab(s), Oral, Daily, Refills(s) 0 Start Date: 10/24/24 Status: Ordered spironolactone 25 mg oral tablet (2 sources) Aldosterone Antagonist Start: 5 take 1 tablet by mouth twice daily spironolactone 25 mg Tab 25 mg, Oral, BID, Refills(s) 0 Start Date: 10/24/24 Status: Ordered sulfamethoxazole 800 mg / trimethoprim 160 mg oral tablet (2 sources) Dihydrofolate Reductase Inhibitor Antibacterial, Sulfonamide Antimicrobial Start: 5 End: 5 Bactrim D.S. 800 mg-160 mg Tab See Instructions, 24 tab(s), Refill(s) 0, 1 tab po BID x 7d, then 1 tab po QD x 10d, [id number], 182, cm, 10/24/24 9:12:00 EST, Height/Length Dosing, 130, kg, 10/24/24 9:12:00 EST, Weight Dosing Start Date: 10/24/24 Stop Date: 11/11/24 Status: Ordered Problems Problem Classification Problem Date Documented Da te Episodic/Chronic Essential hypertension (2 sources) Benign hypertension 10-24-2024 Chronic Genitourinary symptoms and ill-defined conditions (3 sources) Giorgio hematuria; Translations: [Blood in urine] Onset: 10-23-2024 10-23-2024 Episodic Hyperplasia of prostate (3 sources) Benign prostatic hypertrophy with outflow obstruction; Translations: [Benign prostatic hyperplasia with lower urinary tract symptoms] Onset: 10-24-2024 10-24-2024 Chronic Other diseases of kidney and ureters (1 source) Urinary tract obstruction; Translations: [Other obstructive and reflux uropathy] Onset: 10-24-2024 Episodic Other gastrointestinal disorders (2 sources) Constipation 10-24-2024 Episodic Other gastrointestinal disorders (1 source) Constipation, unspecified; Translations: [Constipation, unspecified] Onset: 10-24-2024 Episodic Other screening for suspected conditions (not mental disorders or infectious disease) (1 source) Encounter for screening for malignant neoplasm of prostate; Translations: [Screening for malignant neoplasm done] Onset: 10-24-2024 Episodic Unclassified (2 sources) Patient encounter status 10-24-2024 Results Test Name Value Interpretation Reference Range Facil itkandice C Urineon 10-26-2024 Bacteria identified Cx Nom (U) Microbiology PROCEDURE: Urine Culture [R1] SOURCE: U Random BODY SITE: COLLECTED DATE/TIME: 10/24/2024 09:29 EST RECEIVED DATE/TIME: 10/24/2024 17:59 EST START DATE/TIME: 10/24/2024 17:59 EST FREE TEXT SOURCE: NAKITA MENJIVAR PA-C, PA-C, NAKITA Madison FINAL REPORTS Final Report [] Verified Date/Time: 10/26/2024 09:28 EST No growth at 2 days. Performing Locations R1: This test was performed at: [facility], [address] [place] [address], [id number] , , Normal [facility] Comment on above: Performed By: #### [id number] #### [facility] [address] [place] [address] Urology Office/Clinic Noteon 10-24-2024 Urology Office/Clinic Note Urology Office/Clinic Note Chief Complaint gross hematuria HPI Staff 64yr old male referred by Jessica Murphy NP for gross hematuria. Had gross hematuria several times over the past year. Saw PCP late September after having another episode. Asx at the time, however Urine Cx did end up showing E Coli. Did not always have culture-proven UTIs at the time of hematuria. Repeat urine Cx in early Oct was negative. Dysuria: denies Incomplete bladder emptying: denies Hematuria: pt states he started seeing the blood again last night after straining to pass a hard stool Frequency: almost always Urgency: less than 1 in 5x Nocturia: Stream: 4x for the past few years Leaking: sometimes Post void dripping: denies Wearing pads/ Depends: denies Urge incontinence: denies Stress incontinence: denies Incontinence without Sensory Awareness: denies Abdominal pain: denies Flank pain: denies Sexual complaints: denies Review of Systems PHQ Score Initial Depression Screen Score: 0 SCORE no fever, chills, malaise, myalgia. no rash/lesions. no chest pain, palpitations, or SOB. no abdominal pain, nausea, vomiting. Physical Exam Vitals & Measurements T: 37 ???C(Temporal Artery) HR: 75(Peripheral) RR: 16 BP: 138/70 HT: 72 in HT: 182 cm WT: 130 kg WT: 286.601 lb BMI: 39.25 General: nontoxic, NAD Mouth: moist mucosa Lungs: normal respiratory effort Cardio: regular rate, good distal perfusion Abdomen: nondistended, no suprapubic distention or tenderness, no CVA tenderness Neurologic: Grossly normal Skin: No rashes or suspicious lesions Assessment/Plan 1. Gross hematuria (R31.0: Gross hematuria) Urine today is dark red/brown. Still able to see through it. Pt Asx. 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 The patient is aware that a distinct etiology of the hematuria may not be clear upon conclusion of the workup. Will initiate hematuria workup to include upper urinary tract imaging, as well as evaluation of the urinary cells with urine cytology and possible a FISH test. A cystoscopy will be scheduled to rule out lower urinary tract pathology. The rationale for this workup has been discussed, and all questions have been answered. The risks and benefits for cystoscopy have been discussed. The risks include bleeding, infection, and irritation of the bladder and urinary channel, among others. The patient, after being informed of procedural details and after questions have been answered, wishes to proceed. Full informed consent has been obtained. Will order Local anesthesia. Antibiotics have been sent to pharmacy for procedure. -Urine sent for Cx today, will start empiric abx. Bactrim BID x 7d. Then will reduce to QD until scope to hopefully prevent him from re-bleed (so that PRW able to see during scope). -Schedule CTU. -Return for scope & cytology collection. Ordered: E&M of New Patient Moderate 45-59 Min 62308 Urine Culture 2. Constipation (K59.00: Constipation, unspecified) Recommended aggressive bowel management. Ordered: E&M of New Patient Moderate 45-59 Min [id number] 3. BPH with obstruction/lower urinary tract symptoms (N40.1: Benign prostatic hyperplasia with lower urinary tract symptoms) IPSS 13 QOL 3 - frequency (5), urgency (1), weak stream (3), nocturia (4) Has never tried meds previously. Can consider starting alpha jenn after scope (pt seemed a bit overwhelmed by information today so focused on #1). 4. Prostate cancer screening (Z12.5: Encounter for screening for malignant neoplasm of prostate) Called PCP office, they are faxing over result from Oct 2023. Can update once the bleeding stops/scope complete. Other obstructive and reflux uropathy (N13.8: Other obstructive and reflux uropathy) Orders: sulfamethoxazole-tri methoprim, See Instructions, 24 tab(s), Refill(s) 0, 1 tab po BID x 7d, then 1 tab po QD x 10d, [facility] #[id number], 182, cm, 10/24/24 9:12:00 EST, Height/Length Dosing, 130, kg, 10/24/24 9:12:00 EST, Weight Dosing Follow-up With When Contact Information [facility] Additional Instructions: For procedure as scheduled. Patient Education Constipation, Adult Hematuria, Adult Problem List/Past Medical History Ongoing Benign hypertension (high blood pressure) BPH with obstruction/lower urinary tract symptoms Constipation Gross hematuria Prostate cancer screening Historical No qualifying data Procedure/Surgical History Colonoscopy. Medications allopurinol 300 mg Tab, Oral Bactrim D.S. 800 mg-160 mg Tab, See Instructions FLUoxetine 10 mg Cap, 10 mg= 1 cap(s) hydrochlorothiazide- lisinopril 12.5 mg-20 mg Tab, 1 tab(s) metformin 1000 mg Tab, 1000 mg= 1 tab (more content not included)... Normal [facility] Comment on above: Result Comment: Elec tronically Signed By: TIARA PAYTON, NAKITA Madison\.br\Date and Time Signed: 10/24/24 13:53 EST CBC AUTO DIFFon 08-29-2022 BASO # 0.1 103/ul Normal 0.0-0.1 [facility] Comment on above: Performed By: #### C BC #### [facility] [address] [address] [address] Med Angulo Basophils/100 WBC (Bld) 0.6 % Normal 0.2-2.0 [facility] Comment on above: Performed By: #### C BC #### [facility] [address] [address] [address] Med Angulo EO # 0.2 103/ul Normal 0.0-0.7 [facility] Comment on above: Performed By: #### C BC #### [facility] [address] [address] [address] Med Angulo Eosinophils/100 WBC (Bld) 1.3 % Normal 0.9-7.0 [facility] Comment on above: Performed By: #### C BC #### [facility] [address] [place] [address] Dr. Med Angulo Erythrocyte distribution width (RBC) [Ratio] 13.8 % Normal 11.0-15.0 [facility] Comment on above: Performed By: #### C BC #### [facility] [address] [address] [address] Med Angulo Hematocrit (Bld) [Volume fraction] 40.6 % Critically low 42.0-54.0 [facility] Comment on above: Performed By: #### C BC #### [facility] [address] [place] [address] Dr. Med Angulo Hemoglobin (Bld) [Mass/Vol] 13.7 g/dL Critically low 14.0-18.0 [facility] Comment on above: Performed By: #### C BC #### [facility] [address] [address] [address] Med Angulo IG # 0.13 10e3/ul Critically high 0.00-0.03 [facility] Comment on above: Performed By: #### C BC #### [facility] [address] [address] [address] Med Angulo IG % 1.0 % Critically high 0.0-0.5 [facility] Comment on above: Performed By: #### C BC #### [facility] [address] [place] [address] Dr. Med Angulo LYMPH # 2.1 103/ul Normal 1.2-3.8 [facility] Comment on above: Performed By: #### C BC #### [facility] [address] [place] [address] Dr. Med Angulo Lymphocytes/100 WBC (Bld) 16.9 % Critically low 20.5-60.0 [facility] Comment on above: Performed By: #### C BC #### [facility] [address] [place] [address] Dr. Med Angulo MANUAL DIFF REQ NO Normal [facility] Comment on above: Performed By: #### C BC #### [facility] [address] [place] [address] Dr. Med Angulo MCH (RBC) [Entitic mass] 28.7 pg Normal 25.9-34.0 [facility] Comment on above: Performed By: #### C BC #### [facility] [address] [place] [address] Dr. Med Angulo MCHC (RBC) [Mass/Vol] 33.7 g/dL Normal 29.9-35.2 [facility] Comment on above: Performed By: #### C BC #### [facility] [address] [place] [address] Dr. Med Angulo MCV (RBC) [Entitic vol] 85.1 fL Normal 80.0-94.0 [facility] Comment on above: Performed By: #### C BC #### [facility] [address] [place] [address] Dr. Med Angulo MONO # 0.8 103/ul Normal 0.3-0.8 [facility] Comment on above: Performed By: #### C BC #### [facility] [address] [place] [address] Dr. Med Angulo Monocytes/100 WBC (Bld) 6.4 % Normal 1.7-12.0 [facility] Comment on above: Performed By: #### C BC #### [facility] [address] [address] [address] Med Angulo NEUT # 9.3 103/ul Critically high 1.4-6.5 [facility] Comment on above: Performed By: #### C BC #### [facility] [address] [address] [address] Med Angulo Neutrophils/100 WBC (Bld) 73.8 % Normal 43.0-75.0 [facility] Comment on above: Performed By: #### C BC #### [facility] [address] [address] [address] Med Angulo Platelet mean volume (Bld) [Entitic vol] 9.8 fL Normal 9.5-13.5 [facility] Comment on above: Performed By: #### C BC #### [facility] [address] [address] [address] Med Angulo PLT 292 103/ul Normal 150-450 [facility] Comment on above: Performed By: #### C BC #### [facility] [address] [address] [address] Med Angulo RBC 4.77 106/ul Normal 4.70-6.10 [facility] Comment on above: Performed By: #### C BC #### [facility] [address] [address] [address] Med Angulo WBC 12.6 103/ul Critically high 4.0-11.0 [facility] Comment on above: Performed By: #### C BC #### [facility] [address] [address] [address] Med Angulo GLYCOHEMOGLOBIN A1Con 2021 ADA RECOMMENDATION SEE BELOW Normal [facility] Comment on above: Result Comment: ADA RECOMMENDED LIMIT 4.0 - 6.0 ADA THERAPEUTIC TARGET < 7.0 ACTION SUGGESTED > 7.0 Performed By: #### A 1C #### [facility] [address] [place] [address] Dr. Med Angulo Glucose [Mass/Vol] 111 mg/dL Normal [facility] Comment on above: Performed By: #### A 1C #### [facility] [address] [address] [address] Med Angulo HbA1c (Bld) [Mass fraction] 5.5 % Normal 4.5-6.2 [facility] Comment on above: Performed By: #### A 1C #### [facility] [address] [place] [address] Dr. Med Angulo LIPID PROFILEon 08-29-2022 CHOL-HDL RATIO NORM SEE BELOW Normal [facility] Comment on above: Result Comment: 3.3 - 4.4 LOW RISK 4.4 - 7.1 AVERAGE RISK 7.1 - 11.0 MODERATE RISK >11.0 HIGH RISK Performed By: #### L IPID, CMP #### [facility] [address] [place] [address] Dr. Med Angulo Cholesterol [Mass/Vol] 128 mg/dL Normal <=200 [facility] Comment on above: Performed By: #### L IPID, CMP #### [facility] [address] [address] [address] Med Angulo Cholesterol in HDL [Mass/Vol] 31 mg/dL Critically low 40-60 [facility] Comment on above: Performed By: #### L IPID, CMP #### [facility] [address] [place] [address] Dr. Med Angulo Cholesterol in LDL [Mass/Vol] 43.4 mg/dL Normal [facility] Comment on above: Performed By: #### L IPID, CMP #### [facility] [address] [address] [address] Med Angulo Cholesterol.total/Cho lesterol in HDL [Mass ratio] 4.1 {ratio} Normal [facility] Comment on above: Performed By: #### L IPID, CMP #### [facility] [address] [place] [address] Dr. Med Angulo HDL NORMAL > or = 60 mg/dl - LOW CARDIOVASCULAR RISK <40 mg/dl - HIGH CARDIOVASCULAR RISK Normal [facility] Comment on above: Performed By: #### L IPID, CMP #### [facility] [address] [place] [address] Dr. Med Angulo LDL CALC NORMAL SEE BELOW Normal [facility] Comment on above: Result Comment: <100 mg/dl OPTIMAL 100 - 129 mg/dl NEAR OR ABOVE OPTIMAL 130 - 159 mg/dl BORDERLINE HIGH 160 - 189 mg/dl HIGH >190 mg/dl VERY HIGH Performed By: #### L IPID, CMP #### [facility] [address] [address] [address] Med Angulo Triglyceride [Mass/Vol] 268 mg/dL Critically high <=150 [facility] Comment on above: Performed By: #### L IPID, CMP #### [facility] [address] [address] [address] eMd Angulo VLDL CALC 53.6 mg/dL Normal [facility] Comment on above: Performed By: #### L IPID, CMP #### [facility] [address] [place] [address] Dr. Med Angulo PROF 14(COMP METB)on 022 Albumin [Mass/Vol] 3.8 g/dL Normal 3.4-5.0 [facility] Comment on above: Performed By: #### L IPID, CMP #### [facility] [address] [address] [address] Med Angulo Albumin/Globulin [Mass ratio] 0.9 {ratio} Normal [facility] Comment on above: Performed By: #### L IPID, CMP #### [facility] [address] [address] [address] Med Angulo ALP [Catalytic activity/Vol] 63 U/L Normal 46-116 [facility] Comment on above: Performed By: #### L IPID, CMP #### [facility] [address] [address] [address] Med nAgulo ALT [Catalytic activity/Vol] 60 U/L Normal 16-63 [facility] Comment on above: Performed By: #### L IPID, CMP #### [facility] [address] [address] [address] Med Angulo Anion gap [Moles/Vol] 12.5 mmol/L Normal [facility] Comment on above: Performed By: #### L IPID, CMP #### [facility] [address] [address] [address] Med Angulo AST [Catalytic activity/Vol] 40 U/L Critically high 15-37 [facility] Comment on above: Performed By: #### L IPID, CMP #### [facility] [address] [address] [address] Med Angulo Bilirubin [Mass/Vol] 0.5 mg/dL Normal 0.2-1.0 [facility] Comment on above: Performed By: #### L IPID, CMP #### [facility] [address] [address] [address] Med Angulo Calcium [Mass/Vol] 9.2 mg/dL Normal 8.5-10.1 [facility] Comment on above: Performed By: #### L IPID, CMP #### [facility] [address] [address] [address] Med Angulo Chloride [Moles/Vol] 99 mmol/L Normal 98-107 [facility] Comment on above: Performed By: #### L IPID, CMP #### [facility] [address] [address] [address] Med Angulo CO2 [Moles/Vol] 29.9 mmol/L Normal 21.0-32.0 [facility] Comment on above: Performed By: #### L IPID, CMP #### [facility] [address] [address] [address] Med Angulo Creatinine [Mass/Vol] 1.83 mg/dL Critically high 0.70-1.30 [facility] Comment on above: Performed By: #### L IPID, CMP #### [facility] [address] [address] [address] Med Angulo EGFR-AF FINNISH 46 mL/min/1.73m2 Critically low >=60 [facility] Comment on above: Performed By: #### L IPID, CMP #### [facility] [address] [address] [address] Med Angulo EGFR-NON AF FINNISH 38 mL/min/1.73m2 Critically low >=60 [facility] Comment on above: Performed By: #### L IPID, CMP #### [facility] [address] [place] [address] Dr. Med Angulo Globulin (S) [Mass/Vol] 4.4 g/dL Normal [facility] Comment on above: Performed By: #### L IPID, CMP #### [facility] [address] [place] [address] Dr. Med Angulo Glucose [Mass/Vol] 95 mg/dL Normal 74-106 [facility] Comment on above: Performed By: #### L IPID, CMP #### [facility] [address] [place] [address] Dr. Med Angulo Potassium [Moles/Vol] 4.4 mmol/L Normal 3.5-5.1 [facility] Comment on above: Performed By: #### L IPID, CMP #### [facility] [address] [place] [address] Dr. Med Angulo Protein [Mass/Vol] 8.2 g/dL Normal 6.4-8.2 [facility] Comment on above: Performed By: #### L IPID, CMP #### [facility] [address] [place] [address] Dr. Med Angulo Sodium [Moles/Vol] 137 mmol/L Normal 136-145 [facility] Comment on above: Performed By: #### L IPID, CMP #### [facility] [address] [place] [address] Dr. Med Angulo Urea nitrogen [Mass/Vol] 26.0 mg/dL Critically high 7.0-18.0 [facility] Comment on above: Performed By: #### L IPID, CMP #### [facility] [address] [place] [address] Dr. Med Angulo Urea nitrogen/Creatinine [Mass ratio] 14.2 mg/mg Normal [facility] Comment on above: Performed By: #### L IPID, CMP #### [facility] [address] [place] [address] Dr. Med Angulo Vital Signs Date Time Vital Sign Value Performing Clinician Emmanuelle crowe 10-24-2024 08:56-0500 Blood Pressure Location NAKITA MENJIVAR [facility] 10-24-2024 08:56-0500 Body temperature 98.6 [degF] NAKITA MENJIVAR [facility] 10-24-2024 08:56-0500 Diastolic blood pressure 70 mm[Hg] NAKITA MENJIVAR [facility] 10-24-2024 08:56-0500 Heart rate 75 /min NAKITA MENJIVAR [facility] 10-24-2024 08:56-0500 Respiratory rate 16 /min NAKITA MENJIVAR [facility] 10-24-2024 08:56-0500 Systolic blood pressure 138 mm[Hg] NAKITA MENJIVAR [facility] Encounters Encounter Date Encounter Type Care Provider Facility Start: 11-11-2024 ambulatory Nikolai Montano ty:[id number] Start: 10-24-2024 End: 10-24-2024 Lab Drop off NAKITA MENJIVAR [facility] Start: 10-24-2024 End: 10-24-2024 ambulatory NAKITA MENJIVAR Facility:[facility] Start: 10-24-2024 End: 10-24-2024 Patient encounter procedure NAKITA MENJIVAR [facility] [facility] Start: 10-11-2024 ambulatory NAKITA MENJIVAR Facility :[facility] Start: 12-03-2022 Encounter for genera l adult medical examination without abnormal findings JESSICA MURPHY [facility] Start: 08-29-2022 End: 08-30-2022 ambulatory JESSICA MURPHY Facility:[facility] Start: 08-29-2022 End: 08-30-2022 Encounter for general adult medical examination without abnormal findings JESSICA MURPHY Facility:[facility] Procedures Date Procedure Procedure Detail Performing Clinician Colonoscopy NAKITA MENJIVAR Immunizations Immunization Date Immunization Notes Care Provider Yaakov hough 07-02-2024 SARS-CoV-2 (COVID-19 ) mRNA-1273 vaccine NAKITA MENJIVAR [facility] Payers Date Payer Category Payer Unknown [id number] 1960 Unknown [id number] 1960 Unknown [id number] 1960 Unknown [id number] 1960 Unknown [id number] Social History Date Type Detail Facility Start: 10-24-2024 Tobacco smoking status Never s moked tobacco (finding) [facility] Tobacco smoking status Never [facility] Sex Assigned At Male [facility] Functional Status Date Assessment Result Facility 10-24-2024 Functional Status N/A [facility] Evaluation + Plan note 10-24-2024 Note Date & Type Note Facility 10-24-2024 Evaluation + Plan note Diagnostic Tests PendingUrine Culture 10/24/24 [facility] Hospital Discharge instructions 10-24-2024 Note Date & Type Note Facility 10-24-2024 Hospital Discharg e instructions Patient Education 10/24/2024 09:44:19 Constipation, Adult Constipation, Adult Constipation is when a person has fewer than three bowel movements in a week, has difficulty having a bowel movement, or has stools (feces) that are dry, hard, or larger than normal. Constipation may be caused by an underlying condition. It may become worse with age if a person takes certain medicines and does not take in enough fluids. Follow these instructions at home: Eating and drinking Eat foods that have a lot of fiber, such as beans, whole grains, and fresh fruits and vegetables. Limit foods that are low in fiber and high in fat and processed sugars, such as fried or sweet foods. These include spanish fries, hamburgers, cookies, candies, and soda. Drink enough fluid to keep your urine pale yellow. General instructions Exercise regularly or as told by your health care provider. Try to do 150 minutes of moderate exercise each week. Use the bathroom when you have the urge to go. Do not hold it in. Take btvm-kkq-kkptswg and prescription medicines only as told by your health care provider. This includes any fiber supplements. During bowel movements: ?Practice deep breathing while relaxing the lower abdomen. ?Practice pelvic floor relaxation. Watch your condition for any changes. Let your health care provider know about them. Keep all follow-up visits as told by your health care provider. This is important. Contact a health care provider if: You have pain that gets worse. You have a fever. You do not have a bowel movement after 4 days. You vomit. You are not hungry or you lose weight. You are bleeding from the opening between the buttocks (anus). You have thin, pencil-like stools. Get help right away if: You have a fever and your symptoms suddenly get worse. You leak stool or have blood in your stool. Your abdomen is bloated. You have severe pain in your abdomen. You feel dizzy or you faint. Summary Constipation is when a person has fewer than three bowel movements in a week, has difficulty having a bowel movement, or has stools (feces) that are dry, hard, or larger than normal. Eat foods that have a lot of fiber, such as beans, whole grains, and fresh fruits and vegetables. Drink enough fluid to keep your urine pale yellow. Take dmzo-uuy-ikqujwi and prescription medicines only as told by your health care provider. This includes any fiber supplements. This information is not intended to replace advice given to you by your health care provider. Make sure you discuss any questions you have with your health care provider. Document Revised: 08/02/2023 Document Reviewed: 08/02/2023 [employer] Patient Education 2023 [employer]. 10/23/2024 16:04:03 Hematuria, Adult Hematuria, Adult Hematuria is blood in the urine. Blood may be visible in the urine, or it may be identified with a test. This condition can be caused by infections of the bladder, urethra, kidney, or prostate. Other possible causes include: Kidney stones. Cancer of the urinary tract. Too much calcium in the urine. Conditions that are passed from parent to child (inherited conditions). Exercise that requires a lot of energy. Infections can usually be treated with medicine, and a kidney stone usually will pass through your urine. If neither of these is the cause of your hematuria, more tests may be needed to identify the cause of your symptoms. It is very important to tell your health care provider about any blood in your urine, even if it is painless or the blood stops without treatment. Blood in the urine, when it happens and then stops and then happens again, can be a symptom of a very serious condition, including cancer. There is no pain in the initial stages of many urinary cancers. Follow these instructions at home: Medicines Take brrm-fsz-ecliuzo and prescription medicines only as told by your health care provider. If you were prescribed an antibiotic medicine, take it as told by your health care provider. Do not stop taking the antibiotic even if you start to feel better. Eating and drinking Drink enough fluid to keep your urine pale yellow. It is recommended that you drink 3 4 quarts (2.8 3.8 L) a day. If you have been diagnosed with an infection, drinking cranberry juice in addition to large amounts of water is recommended. Avoid caffeine, tea, and carbonated beverages. These tend to irritate the bladder. Avoid alcohol because it may irritate the prostate (in males). General instructions If you have been diagnosed with a kidney stone, follow your health care provider's instructions about straining your urine to catch the stone. Empty your bladder often. Avoid holding urine for long periods of time. If you are female: ?After a bowel movement, wipe from front to back and use each piece of toilet paper only once. ?Empty your bladder before and after sex. Pay attention to any changes in your symptoms. Tell your health care provider about any changes or any new symptoms. It is up to you to get the results of any tests. Ask your health care provider, or the department that is doing the test, when your results will be ready. Keep all follow-up visits. This is important. Contact a health care provider if: You develop back pain. You have a fever or chills. You have nausea or vomiting. Your symptoms do not improve after 3 days. Your symptoms get worse. Get help right away if: You develop severe vomiting and are unable to take medicine without vomiting. You develop severe pain in your back or abdomen even though you are taking medicine. You pass a large amount of blood in your urine. You pass blood clots in your urine. You feel very weak or like you might faint. You faint. Summary Hematuria is blood in the urine. It has many possible causes. It is very important that you tell your health care provider about any blood in your urine, even if it is painless or the blood stops without treatment. Take mtsb-nqi-wwbocid and prescription medicines only as told by your health care provider. Drink enough fluid to keep your urine pale yellow. This information is not intended to replace advice given to you by your health care provider. Make sure you discuss any questions you have with your health care provider. Document Revised: 05/19/2021 Document Reviewed: 05/19/2021 [employer] Patient Education 2023 [employer]. Follow Up Care 10/15/2024 09:45:52 With:[facility] Address: When: Unknown Comments:For procedure as scheduled. With:[facility] Address: When: Unknown Comments:For procedure as scheduled. [facility] Clinical Note 10-24-2024 Note Date & Type Note Facility 10-24-2024 Note Patient Education Gastroenterology Constipation, Adult Constipation is when a person has fewer than three bowel movements in a week, has difficulty having a bowel movement, or has stools (feces) that are dry, hard, or larger than normal. Constipation may be caused by an underlying condition. It may become worse with age if a person takes certain medicines and does not take in enough fluids. Follow these instructions at home: Eating and drinking ??? Eat foods that have a lot of fiber, such as beans, whole grains, and fresh fruits and vegetables. ??? Limit foods that are low in fiber and high in fat and processed sugars, such as fried or sweet foods. These include spanish fries, hamburgers, cookies, candies, and soda. ??? Drink enough fluid to keep your urine pale yellow. General instructions ??? Exercise regularly or as told by your health care provider. Try to do 150 minutes of moderate exercise each week. ??? Use the bathroom when you have the urge to go. Do not hold it in. ??? Take muev-crb-jdbahkc and prescription medicines only as told by your health care provider. This includes any fiber supplements. ??? During bowel movements: ? Practice deep breathing while relaxing the lower abdomen. ? Practice pelvic floor relaxation. ??? Watch your condition for any changes. Let your health care provider know about them. ??? Keep all follow-up visits as told by your health care provider. This is important. Contact a health care provider if: ??? You have pain that gets worse. ??? You have a fever. ??? You do not have a bowel movement after 4 days. ??? You vomit. ??? You are not hungry or you lose weight. ??? You are bleeding from the opening between the buttocks (anus). ??? You have thin, pencil-like stools. Get help right away if: ??? You have a fever and your symptoms suddenly get worse. ??? You leak stool or have blood in your stool. ??? Your abdomen is bloated. ??? You have severe pain in your abdomen. ??? You feel dizzy or you faint. Summary ??? Constipation is when a person has fewer than three bowel movements in a week, has difficulty having a bowel movement, or has stools (feces) that are dry, hard, or larger than normal. ??? Eat foods that have a lot of fiber, such as beans, whole grains, and fresh fruits and vegetables. ??? Drink enough fluid to keep your urine pale yellow. ??? Take asgy-tdb-mixqthc and prescription medicines only as told by your health care provider. This includes any fiber supplements. This information is not intended to replace advice given to you by your health care provider. Make sure you discuss any questions you have with your health care provider. Document Revised: 08/02/2023 Document Reviewed: 08/02/2023 [employer] Patient Education ? 2023 [employer]. Urology Hematuria, Adult Hematuria is blood in the urine. Blood may be visible in the urine, or it may be identified with a test. This condition can be caused by infections of the bladder, urethra, kidney, or prostate. Other possible causes include: ??? Kidney stones. ??? Cancer of the urinary tract. ??? Too much calcium in the urine. ??? Conditions that are passed from parent to child (inherited conditions). ??? Exercise that requires a lot of energy. Infections can usually be treated with medicine, and a kidney stone usually will pass through your urine. If neither of these is the cause of your hematuria, more tests may be needed to identify the cause of your symptoms. It is very important to tell your health care provider about any blood in your urine, even if it is painless or the blood stops without treatment. Blood in the urine, when it happens and then stops and then happens again, can be a symptom of a very serious condition, including cancer. There is no pain in the initial stages of many urinary cancers. Follow these instructions at home: Medicines ??? Take nely-okk-jzzgwhk and prescription medicines only as told by your health care provider. ??? If you were prescribed an antibiotic medicine, take it as told by your health care provider. Do not stop taking the antibiotic even if you start to feel better. Eating and drinking ??? Drink enough fluid to keep your urine pale yellow. It is recommended that you drink 3?4 quarts (2.8?3.8 L) a day. If you have been diagnosed with an infection, drinking cranberry juice in addition to large amounts of water is recommended. ??? Avoid caffeine, tea, and carbonated beverages. These tend to irritate the bladder. ??? Avoid alcohol because it may irritate the prostate (in males). General instructions ??? If you have been diagnosed with a kidney stone, follow your health care provider's instructions about straining your urine to catch the stone. ??? Empty your bladder often. Avoid holding urine for long periods of time. ??? If you are female: ? After a bowel movement, wipe from front to back and u (more content not included)... [facility] Hospital course Narrative Note Date & Type Note Facility Hospital course Narrative No data available for this section [facility] Hospital Discharge instructions Note Date & Type Note Facility Hospital Discharge instructions No data available for this section [facility] Progress note Note Date & Type Note Facility Progress note No data available for this section [facility] Summary Purpose Family History No Family History Records FoundNo Family History Records Found No data available for this section No data available for this section No Family History Records Found Advance Directives No Advanced Directives Records FoundNo Advanced Directives Records FoundNo Advanced Directives Records Found Additional Source Comments (unrecognized sect ion and content) No Status Records FoundNo Status Records FoundNo Status Records Found INFORMATION SOURCE (unrecogn ized section and content) DATE CREATED AUTHOR [facility]2022 [facility] DATE CREATED AUTHOR AUTHOR'S ORGANIZ ATION 10/25/[address] [facility] DATE CREATED AUTHOR AUTHOR'S ORGANIZ ATION 11/01/[address] [facility] Patient Care team informatio n (unrecognized section and content) Personnel Name: JESSICA MURPHY CNP Address: Address: [address] [place] [address] Personnel Name: JESSICA MURPHY CNP Address: Address: [address] [place] [address] FOR RECORDS PERTAINING TO PATIENTS WHO ARE [...] BE BASED ON THE PRIMARY CLINICAL RECORDS. [facility] [employer] [facility]. provides no warranty or guarantee of the accuracy or completeness of information in this document.
[2024-11-11] MEDS: LIDOCAINE 2% JELLY 10 ML UR (09:04)
[2024-11-11 09:09] VITALS: BP 145/83; BP 146/75; PULSE 50; PULSE 52; O2SAT 97; O2SAT 99
--- NOTE | 2024-11-11 09:16 | PM.URSON ---
Urology Surgery Operative Note Operative Note Procedure Date: 11/11/24 Time Out Performed: yes Pre-op Diagnosis: Gross hematuria. BPH with LUTS. Post-op Diagnosis: same as pre-op Procedures performed: 1. Cystoscopy. 2. Bladder wash for cytology. Anesthesia: local Primary Surgeon: Nikolai Rust Complications: None Estimated blood loss (mL): 0 Findings: 1. Bilobar obstruction of the prostate. 2. Severe bladder damage in the form of thick trabeculation and diffuse deep diverticuli. 3. Diffuse cystitis cystica lesions in the bladder. Specimens: Bladder wash for cytology Drains: None Indications for Procedures: This gentleman has had a long history of bladder outlet obstructive symptoms. He has had recurrent urinary tract infections for which he has been on several courses of antibiotics. He has also had intermittent gross hematuria. He now presents for cystoscopy and bladder wash for cytology. He has signed an informed consent after risks were explained. Detailed description of Procedure: The patient was kept on his gurney bed and brought into the endoscopy suite. He was in the supine position. Timeout was done by all parties in the room. We all agreed upon the patient's identification and the planned procedures for this patient. Genitalia were sterilely prepped and draped in the usual fashion. 2% lidocaine gel was passed per urethra. I started by passing a flexible cystoscope per urethra and into the bladder. The anterior urethra was normal. The prostatic urethra revealed bilobar obstruction. Panendoscopy in the bladder revealed striking findings of the following: #1. Extremely thick trabeculation. 2. Diffuse diverticuli most of which were very deep. 3. Diffuse cystitis cystica lesions. There was no evidence of any bladder tumors concerning for cancer. The scope was retroflexed and no new findings were noted. A vigorous wash was taken and sent for cytology. The scope was then removed. He was then discharged to home. Impression: #1. This gentleman has significant bladder damage and recurrent urinary tract infections along with significant bladder outlet obstructive symptoms. All of these are a result of his prostatic choking effect on his urinary channel. Plan: #1. He will start Cipro 500 twice daily for 1 month. 1 refill has been sent. 2. He will start Flomax twice daily. 3. Follow-up will be in 1 month with me.
== END 2024-11-11 09:25 | disposition home or self-care (01) ==
PROVIDERS: PCP Nurse Practitioner Family; Visit Provider Urology
PROC: (CPT 52000; principal; 2024-11-11 08:30)
DX: R31.0 Gross hematuria (principal); I10 Essential (primary) hypertension; E11.9 Type 2 diabetes mellitus without complications; F32.A Depression, unspecified; M10.9 Gout, unspecified; N40.1 Benign prostatic hyperplasia with lower urinary tract symptoms; N32.89 Other specified disorders of bladder; Z87.440 Personal history of urinary (tract) infections; N32.3 Diverticulum of bladder; N13.8 Other obstructive and reflux uropathy
CPT/HCPCS: 52000; 88112; 99999

== ENCOUNTER 2024-12-14 07:30 | Outpatient (OUT) | payer OTHER, SELFPAY ==
--- OUTSIDE RECORDS SUMMARY | 2024-12-14 07:32 | XMS_ITS | CCD ---
Author Organization [facility] Care Team Providers Care Poultry Vaccinator Name Role Phone JESSICA MURPHY Attending Unavailable JESSICA MURPHY Consulting Unavailable JESSICA MURPHY Primary Care Unavailable JESSICA MURPHY Admitting Unavailable NAKITA MENJIVAR Attending Unavailable JESSICA MURPHY Referring Unavailable NAKITA MENJIVAR Attending Unavailable NAKITA MENJIVAR Admitting Unavailable JESSICA MURPHY Primary Care Physician Nikolai ACOSTA Attending Unavailable Nikolai ACOSTA Attending Unavailable Allergies Allergy Classification Reported Allergen(s) Allergy Type Date of Onset Reaction(s) Facility (2 sources) No Known Medication Allergies; Translations: [No Known Medication Allergies] Propensity to adverse reactions (disorder) [facility] Medications Current Medications Medication Drug [...] oral tablet (2 sources) beta-Adrenergic Jenn Start: take 1 tablet by mouth once daily [...] then 1 tab po QD x 10d, [id number], 182, cm, 10/24/24 9:12:00 EST, Height/Length Dosing, [...] Locations R1: This test was performed at: [facility], [address] [place] [address], [facility] , , Normal [facility] Comment on above: Performed By: #### 2 [id number] #### [facility] [address] [place] [address] Urology Office/Clinic Noteon 10-24-2024 Urology Office/Clinic Note [...] E&M of New Patient Moderate 45-59 Min 08998 Urine Culture 2. Constipation (K59.00: Constipation, unspecified) Recommended aggressive bowel management. 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 Normal [facility] Comment on above: Result Comment: Elec tronically Signed By: NAKITA MENJIVAR PA-C\.br\Date and Time Signed: 10/24/24 13:53 EST CBC AUTO DIFFon 08-29-2022 BASO # 0.1 103/ul Normal 0.0-0.1 [facility] Comment on above: Performed By: #### C BC #### [facility] [address] [address] [address] Med Angulo Basophils/100 WBC (Bld) 0.6 % Normal 0.2-2.0 [facility] Comment on above: Performed By: #### C BC #### [facility] [address] [address] [address] Med Angulo EO # 0.2 103/ul Normal 0.0-0.7 [facility] Comment on above: Performed By: #### C BC #### [facility] [address] [address] [address] Med Angulo Eosinophils/100 WBC (Bld) 1.3 % Normal 0.9-7.0 [facility] Comment on above: Performed By: #### C BC #### [facility] [address] [place] [address] Dr. Med Angulo Erythrocyte distribution width (RBC) [Ratio] 13.8 % Normal 11.0-15.0 [facility] Comment on above: Performed By: #### C BC #### [facility] [address] [place] [address] Dr. Med Angulo Hematocrit (Bld) [Volume fraction] 40.6 % Critically low 42.0-54.0 [facility] Comment on above: Performed By: #### C BC #### [facility] [address] [place] [address] Dr. Med Angulo Hemoglobin (Bld) [Mass/Vol] 13.7 g/dL Critically low 14.0-18.0 [facility] Comment on above: Performed By: #### C BC #### [facility] [address] [place] [address] Dr. Med Angulo IG # 0.13 10e3/ul Critically high 0.00-0.03 [facility] Comment on above: Performed By: #### C BC #### [facility] [address] [address] [address] Med Angulo IG % 1.0 % Critically high 0.0-0.5 [facility] Comment on above: Performed By: #### C BC #### [facility] [address] [address] [address] Med Angulo LYMPH # 2.1 103/ul Normal 1.2-3.8 [facility] Comment on above: Performed By: #### C BC #### [facility] [address] [address] [address] Med Angulo Lymphocytes/100 WBC (Bld) 16.9 % Critically low 20.5-60.0 [facility] Comment on above: Performed By: #### C BC #### [facility] [address] [address] [address] Med Angulo MANUAL DIFF REQ NO Normal [facility] Comment on above: Performed By: #### C BC #### [facility] [address] [place] [address] Dr. Med Angulo MCH (RBC) [Entitic mass] 28.7 pg Normal 25.9-34.0 [facility] Comment on above: Performed By: #### C BC #### [facility] [address] [place] [address] Dr. Med Angulo MCHC (RBC) [Mass/Vol] 33.7 g/dL Normal 29.9-35.2 [facility] Comment on above: Performed By: #### C BC #### [facility] [address] [place] [address] Dr. Med Angulo MCV (RBC) [Entitic vol] 85.1 fL Normal 80.0-94.0 [facility] Comment on above: Performed By: #### C BC #### [facility] [address] [place] [address] Dr. Med Angulo MONO # 0.8 103/ul Normal 0.3-0.8 [facility] Comment on above: Performed By: #### C BC #### [facility] [address] [place] [address] Dr. Med Angulo Monocytes/100 WBC (Bld) 6.4 % Normal 1.7-12.0 [facility] Comment on above: Performed By: #### C BC #### [facility] [id number] Med Angulo NEUT # 9.3 103/ul Critically high 1.4-6.5 [facility] Comment on above: Performed By: #### C BC #### [facility] [id number] Med Angulo Neutrophils/100 WBC (Bld) 73.8 % Normal 43.0-75.0 [facility] Comment on above: Performed By: #### C BC #### [facility] [address] [address] [address] Med Angulo Platelet mean volume (Bld) [Entitic vol] 9.8 fL Normal 9.5-13.5 [facility] Comment on above: Performed By: #### C BC #### [facility] [address] [address] [address] Med Angulo PLT 292 103/ul Normal 150-450 [facility] Comment on above: Performed By: #### C BC #### [facility] [address] [address] [address] Med Angulo RBC 4.77 106/ul Normal 4.70-6.10 [facility] Comment on above: Performed By: #### C BC #### [facility] [address] [address] [address] Med Angulo WBC 12.6 103/ul Critically high 4.0-11.0 [facility] Comment on above: Performed By: #### C BC #### [facility] [address] [address] [address] Med Angulo GLYCOHEMOGLOBIN A1Con 2021 ADA RECOMMENDATION SEE BELOW Normal [facility] Comment on above: Result Comment: ADA RECOMMENDED LIMIT 4.0 - 6.0 ADA THERAPEUTIC TARGET < 7.0 ACTION SUGGESTED > 7.0 Performed By: #### A 1C #### [facility] [id number] Med Angulo Glucose [Mass/Vol] 111 mg/dL Normal [facility] Comment on above: Performed By: #### A 1C #### [facility] [address] [address] [address] Med Angulo HbA1c (Bld) [Mass fraction] 5.5 % Normal 4.5-6.2 [facility] Comment on above: Performed By: #### A 1C #### [facility] [address] [address] [address] Med Angulo LIPID PROFILEon 08-29-2022 CHOL-HDL RATIO NORM SEE BELOW Normal [facility] Comment on above: Result Comment: 3.3 - 4.4 LOW RISK 4.4 - 7.1 AVERAGE RISK 7.1 - 11.0 MODERATE RISK >11.0 HIGH RISK Performed By: #### L IPID, CMP #### [facility] [address] [address] [address] Med Angulo Cholesterol [Mass/Vol] 128 mg/dL Normal <=200 [facility] Comment on above: Performed By: #### L IPID, CMP #### [facility] [address] [address] [address] Med Angulo Cholesterol in HDL [Mass/Vol] 31 mg/dL Critically low 40-60 [facility] Comment on above: Performed By: #### L IPID, CMP #### [facility] [address] [address] [address] Med Angulo Cholesterol in LDL [Mass/Vol] 43.4 mg/dL Normal [facility] Comment on above: Performed By: #### L IPID, CMP #### [facility] [address] [address] [address] Med Angulo Cholesterol.total/Cho lesterol in HDL [Mass ratio] 4.1 {ratio} Normal [facility] Comment on above: Performed By: #### L IPID, CMP #### [facility] [address] [address] [address] Med Angulo HDL NORMAL > or = 60 mg/dl - LOW CARDIOVASCULAR RISK <40 mg/dl - HIGH CARDIOVASCULAR RISK Normal [facility] Comment on above: Performed By: #### L IPID, CMP #### [facility] [address] [address] [address] Med Angulo LDL CALC NORMAL SEE BELOW Normal [facility] Comment on above: Result Comment: <100 mg/dl OPTIMAL 100 - 129 mg/dl NEAR OR ABOVE OPTIMAL 130 - 159 mg/dl BORDERLINE HIGH 160 - 189 mg/dl HIGH >190 mg/dl VERY HIGH Performed By: #### L IPID, CMP #### [facility] [address] [place] [address] Dr. Med Angulo Triglyceride [Mass/Vol] 268 mg/dL Critically high <=150 [facility] Comment on above: Performed By: #### L IPID, CMP #### [facility] [address] [address] [address] Med Angulo VLDL CALC 53.6 mg/dL Normal [facility] Comment on above: Performed By: #### L IPID, CMP #### [facility] [address] [place] [address] Dr. Med Angulo PROF 14(COMP METB)on 022 Albumin [Mass/Vol] 3.8 g/dL Normal 3.4-5.0 [facility] Comment on above: Performed By: #### L IPID, CMP #### [facility] [address] [place] [address] Dr. Med Angulo Albumin/Globulin [Mass ratio] 0.9 {ratio} Normal [facility] Comment on above: Performed By: #### L IPID, CMP #### [facility] [address] [place] [address] Dr. Med Angulo ALP [Catalytic activity/Vol] 63 U/L Normal 46-116 [facility] Comment on above: Performed By: #### L IPID, CMP #### [facility] [address] [address] [address] Med Angulo ALT [Catalytic activity/Vol] 60 U/L Normal 16-63 [facility] Comment on above: Performed By: #### L IPID, CMP #### [facility] [address] [place] [address] Dr. Med Angulo Anion gap [Moles/Vol] 12.5 mmol/L Normal [facility] Comment on above: Performed By: #### L IPID, CMP #### [facility] [address] [address] [address] Med Angulo AST [Catalytic activity/Vol] 40 U/L Critically high 15-37 [facility] Comment on above: Performed By: #### L IPID, CMP #### [facility] [address] [address] [address] Med Angulo Bilirubin [Mass/Vol] 0.5 mg/dL Normal 0.2-1.0 [facility] Comment on above: Performed By: #### L IPID, CMP #### [facility] [address] [address] [address] Med Angulo Calcium [Mass/Vol] 9.2 mg/dL Normal 8.5-10.1 [facility] Comment on above: Performed By: #### L IPID, CMP #### [facility] [address] [address] [address] Med Angulo Chloride [Moles/Vol] 99 mmol/L Normal 98-107 [facility] Comment on above: Performed By: #### L IPID, CMP #### [facility] [address] [address] [address] Med Angulo CO2 [Moles/Vol] 29.9 mmol/L Normal 21.0-32.0 [facility] Comment on above: Performed By: #### L IPID, CMP #### [facility] [address] [address] [address] Med Angulo Creatinine [Mass/Vol] 1.83 mg/dL Critically high 0.70-1.30 [facility] Comment on above: Performed By: #### L IPID, CMP #### [facility] [address] [place] [address] Dr. Med Angulo EGFR-AF ROMANIAN 46 mL/min/1.73m2 Critically low >=60 [facility] Comment on above: Performed By: #### L IPID, CMP #### [facility] [address] [place] [address] Dr. Med Angulo EGFR-NON AF ROMANIAN 38 mL/min/1.73m2 Critically low >=60 [facility] Comment on above: Performed By: #### L IPID, CMP #### [facility] [address] [place] [address] Dr. Med Angulo Globulin (S) [Mass/Vol] 4.4 g/dL Normal [facility] Comment on above: Performed By: #### L IPID, CMP #### [facility] [address] [place] [address] Dr. Med Angulo Glucose [Mass/Vol] 95 mg/dL Normal 74-106 [facility] Comment on above: Performed By: #### L IPID, CMP #### [facility] [address] [place] [address] Dr. Med Angulo Potassium [Moles/Vol] 4.4 mmol/L Normal 3.5-5.1 [facility] Comment on above: Performed By: #### L IPID, CMP #### [facility] [address] [place] [address] Dr. Med Angulo Protein [Mass/Vol] 8.2 g/dL Normal 6.4-8.2 [facility] Comment on above: Performed By: #### L IPID, CMP #### [facility] [address] [place] [address] Dr. Med Angulo Sodium [Moles/Vol] 137 mmol/L Normal 136-145 [facility] Comment on above: Performed By: #### L IPID, CMP #### [facility] [address] [place] [address] Dr. Med Angulo Urea nitrogen [Mass/Vol] 26.0 mg/dL Critically high 7.0-18.0 [facility] Comment on above: Performed By: #### L IPID, CMP #### [facility] [address] [place] [address] Dr. Med Angulo Urea nitrogen/Creatinine [Mass ratio] 14.2 mg/mg Normal [facility] Comment on above: Performed By: #### L IPID, CMP #### [facility] [address] [place] [address] Dr. Med Angulo Vital Signs Date Time Vital Sign Value Performing Clinician Emmanuelle crowe 10-24-2024 08:56-0500 Blood Pressure Location NAKITA MENJIVAR [facility] 10-24-2024 08:56-0500 Body temperature 98.6 [degF] NAKITA MENJIVAR [facility] 10-24-2024 08:56-0500 Diastolic blood pressure 70 mm[Hg] NAKITA TIARA [facility] 10-24-2024 08:56-0500 Heart rate 75 /min NAKITA MENJIVAR [facility] 10-24-2024 08:56-0500 Respiratory rate 16 /min NAKITA MENJIVAR [facility] 10-24-2024 08:56-0500 Systolic blood pressure 138 mm[Hg] NAKITA MENJIVAR [facility] Encounters Encounter Date Encounter Type Care Provider Facility Start: 12-20-2024 ambulatory Nikolai ACOSTA Facili ty:[facility] Start: 11-11-2024 End: 11-11-2024 ambulatory Nikolai ACOSTA Facility:CD:[id number] Start: 10-24-2024 End: 10-24-2024 Lab Drop off NAKITA MENJIVAR [facility] Start: 10-24-2024 End: 10-24-2024 ambulatory NAKITA MENJIVAR Facility:[facility] Start: 10-24-2024 End: 10-24-2024 Patient encounter procedure NAKITA MENJIVAR [facility] Start: 10-11-2024 ambulatory NAKITA TIARA Facility :[facility] Start: 09-03-2022 Encounter for genera l adult medical examination without abnormal findings JESSICA MURPHY [facility] Start: 08-29-2022 End: 08-30-2022 ambulatory JESSICA MURPHY Facility:[facility] Start: 08-29-2022 End: 08-30-2022 Encounter for general adult medical examination without abnormal findings JESSICA MURPHY Facility:[facility] Procedures Date Procedure Procedure Detail Performing Clinician Colonoscopy NAKITA MENJIVAR Immunizations Immunization Date Immunization Notes Care Provider Fa cility 07-02-2024 SARS-CoV-2 (COVID-19 ) [id number] vaccine NAKITA MENJIVAR [facility] Payers Date Payer Category Payer Unknown [id number] 1960 Unknown [id number] 1960 Unknown [id number] [id number] [id number] 1960 Unknown [id number] 2.16.8 [id number] 1960 Unknown [id number] [id number] [id number] 1960 Unknown [id number] 2.16.8 [id number] 1960 Unknown [id number] [id number] [id number] Social History Date Type Detail Facility Start: 10-24-2024 Tobacco smoking status Never s moked tobacco (finding) [facility] Tobacco smoking status Never [facility] Sex Assigned At Male [facility] Functional Status Date Assessment Result Facility 10-24-2024 Functional Status N/A [facility] Evaluation + Plan note 10-24-2024 Note Date & Type Note Facility 10-24-2024 Evaluation + Plan note Diagnostic Tests PendingUrine Culture 10/24/24 [facility] Hospital Discharge instructions 10-24-2024 Note Date [...] as fried or sweet foods. These include slovak fries, hamburgers, cookies, candies, and soda. Drink enough fluid to keep your urine pale yellow. General instructions Exercise regularly or as told by your health care provider. Try to do 150 minutes of moderate exercise each week. Use the bathroom when you have the urge to go. Do not hold it in. Take joce-nsi-didewxw and prescription medicines only as told by [...] to keep your urine pale yellow. Take elqw-qmv-akfcrwz and prescription medicines only as told by your health care provider. This includes any fiber supplements. This information is not intended to replace advice given to you by your health care provider. Make sure you discuss any questions you have with your health care provider. Document Revised: 08/02/2023 Document Reviewed: 08/02/2023 [employer] Patient Education 2023 [employer]. 10/23/2024 16:04:03 Hematuria, Adult Hematuria, Adult Hematuria [...] Follow these instructions at home: Medicines Take tewl-cze-sntqcfa and prescription medicines only as told by [...] or the blood stops without treatment. Take pbuz-ekk-ocaqekd and prescription medicines only as told by your health care provider. Drink enough fluid to keep your urine pale yellow. This information is not intended to replace advice given to you by your health care provider. Make sure you discuss any questions you have with your health care provider. Document Revised: 05/19/2021 Document Reviewed: 05/19/2021 Elsevier Patient Education 2023 [employer]. Follow Up Care 10/15/2024 09:45:52 With:[facility] Address: When: Unknown Comments:For procedure as scheduled. With:[facility] Address: When: Unknown Comments:For procedure as scheduled. [facility] Jennifer Clinical Note 10-24-2024 Note Date & Type [...] as fried or sweet foods. These include slovak fries, hamburgers, cookies, candies, and soda. ??? Drink enough fluid to keep your urine pale yellow. General instructions ??? Exercise regularly or as told by your health care provider. Try to do 150 minutes of moderate exercise each week. ??? Use the bathroom when you have the urge to go. Do not hold it in. ??? Take ukll-tzn-igteuuq and prescription medicines only as told by [...] keep your urine pale yellow. ??? Take mege-nvu-jfpqvkl and prescription medicines only as told by your health care provider. This includes any fiber supplements. This information is not intended to replace advice given to you by your health care provider. Make sure you discuss any questions you have with your health care provider. Document Revised: 08/02/2023 Document Reviewed: 08/02/2023 [employer] Patient Education ? 2023 [employer]. Urology Hematuria, Adult Hematuria is blood in [...] these instructions at home: Medicines ??? Take jhrh-opz-loaqopf and prescription medicines only as told by [...] back and u (more content not included)... [facility] Hospital course Narrative Note Date & Type Note Facility Hospital course Narrative No data available for this section [facility] Hospital Discharge instructions Note Date & Type Note Facility Hospital Discharge instructions No data available for this section [facility] Progress note Note Date & Type Note Facility Progress note No data available for this section [facility] Summary Purpose Family History No Family History [...] and content) DATE CREATED AUTHOR 09/03/2022 [facility] DATE CREATED AUTHOR AUTHOR'S ORGANIZ ATION 10/25/2024 [facility] DATE CREATED AUTHOR AUTHOR'S ORGANIZ ATION 11/21/2024 [facility] Patient Care team informatio n (unrecognized section and content) Personnel Name: JESSICA MURPHY CNP Address: Address: [address] [place] [address] Personnel Name: JESSICA MURPHY CNP Address: Address: [address] [place] [address] FOR RECORDS PERTAINING TO PATIENTS WHO ARE [...] BE BASED ON THE PRIMARY CLINICAL RECORDS. [employer] [facility]. provides no warranty or guarantee of the accuracy or completeness of information in this document.
--- NOTE | 2024-12-14 07:35 | CT_ITS ---
The [address] [address] Patient Name: HARMAN LE MRN: [id number] date: 1960 Sex: M Assigned Patient Location: CT Current Patient Location: CT Accession/Order Number: [id number] Exam Date: 12/14/2024 13:23 Report Date: 12/14/2024 13:35 At the request of: NAKITA SYED Procedure: CT abdomen pelvis wo/w con CT Abdomen and Pelvis with and withoutcontrast TECHNIQUE: Axial imaging with 2-D reconstruction.100 cc of Visipaque 270. The CT exam was performed using one or more the following dose reduction techniques: Automated exposure control, adjustment of the MA and/or Kv according to patient size, or use of the iterative reconstruction technique. COMPARISON: None History: Gross hematuria for one year. Prostatomegaly. LIMITATIONS: None LOWER THORAX Unremarkable LIVER: Unremarkable GALLBLADDER: No gallbladder abnormality identified. BILE DUCTS: No dilatation SPLEEN: Unremarkable PANCREAS: Unremarkable ADRENAL GLANDS: Unremarkable KIDNEYS:6.9 x 6.3 x 6.0 cm heterogeneous solid mass mid to inferior pole left kidney. Extension into the renal pelvis. Bilateral renal cysts. Largest on the right measuring up to 6.2 cm. Punctate left nephrolithiasis. No hydronephrosis or hydroureter. AORTA: No abdominal aortic aneurysm identified. RETROPERITONEUM: There are mildly prominent periaortic lymph nodes. Largest is a short axis dimension up to 13 mm. MESENTERY:Unremarkable SMALL BOWEL: The small bowel loops are nondistended. APPENDIX: The appendix is normal. COLON: Moderate constipation URINARY BLADDER: Urinary bladder is unremarkable. REPRODUCTIVE SYSTEM: Reproductive structures are unremarkable. PNEUMOPERITONEUM: None PERITONEAL FLUID:None BONY STRUCTURES: Degenerative change. No bony lesion. ABDOMINAL WALL: Unremarkable CT/CT abdomen pelvis wo/w con IMPRESSION: 6.9 cm heterogeneous solid mass in the mid and inferior pole of the left kidney. A concern for malignancy. Urologic consultation recommended. Left the periaortic lymphadenopathy with maximal short axis dimension of 13 mm. Metastasis needs to be excluded. No distant metastasis identified. May consider PET/CT imaging. Moderate constipation. Bilateral renal cysts. Impression dictated by: Dedrick Marshall M.D.12/14/2024 1:35 PM Dictation Location: [place] [address] Electronically authenticated by: [id number] Y Date: 12/14/2024 13:35
[2024-12-14 07:45] LABS: Estimated GFR (African America 56 (>=60 mL/min/1.73m^2); Estimated GFR (Non-African Ame 46 (>=60 mL/min/1.73m^2)
== END 2024-12-14 07:31 | disposition home or self-care (01) ==
LOC: CT 07:30
PROVIDERS: PCP Nurse Practitioner Family; Visit Provider Physician Assistant
DX: R31.0 Gross hematuria (principal); N28.89 Other specified disorders of kidney and ureter; K59.00 Constipation, unspecified
CPT/HCPCS: 36415; 74178; 82565; Q9966

== ENCOUNTER 2025-03-11 07:12 | Emergency (ER) | payer OTHER, SELFPAY ==
[2025-03-11] VITALS (9 sets, daily range): BP systolic 144; BP diastolic 76; PULSE 49–77; TEMP 37.2; O2SAT 98–99; BMI 37.3
--- NOTE | 2025-03-11 07:23 | ECG_ITS ---
The [facility] Test Date: 2025-03-11 Pat Name: HARMAN LE Department: Room: - Gender: Male Roll Tender: : 1960 Requested By: [id number] Order Number: [id number] Reading MD: SUBHASH HERNANDEZ M.D. Measurements Intervals [place] Rate: 55 P: 42 NC: 134 QRS: 66 QRSD: 92 T: 57 QT: 416 QTc: 406 Interpretive Statements 1100 Sinus rhythm 9110 normal ECG No previous ECG available for comparison Electronically Signed On 03-11-2025 14:17:46 EDT by SUBHASH HERNANDEZ M.D.
--- OUTSIDE RECORDS SUMMARY | 2025-03-11 07:26 | XMS_ITS | CCD ---
Author Organization [facility] Care Team Providers Care [employer] Supervisor Name Role Phone JESSICA DAVALOS Attending Unavailable SUSANNAH, JESSICA Consulting Unavailable SUSANNAH, JESSICA Primary Care Unavailable SUSANNAH, JESSICA Admitting Unavailable TIARANAKITA Attending Unavailable SUSANNAH, JESSICA S Referring Unavailable TIARANAKITA Attending Unavailable TIARA, NAKITA [place] Admitting Unavailable SUSANNAH, JESSICA S Primary Care Physician [phone] Nikolai ACOSTA Attending Unavailable Nikolai ACOSTA Attending Unavailable Nikolai ACOSTA Attending Unavailable Unavailable Primary Care Provider Unavailvijaya Davalos CNP, Jessica S Primary Care Provider ROB ROMERO Referring Unavailable SUSANNAH, JESSICA S Primary Care Unavailable ROMEROROB NICHOLS Referring Unavailable SUSANNAH, JESSICA S Primary Care Unavailable TAMANNA ZHU Referring Unavailable SUSANNAH, JESSICA S Primary Care Unavailable ABOUASSALY, BING Referring Unavailable SUSANNAH, JESSICA S Primary Care Unavailable Joseph'ANABG FINNEY Admitting Unavailable O'ANABG FINNEY Attending Unavailable ABOUASSALY, BING Referring Unavailable ABOUASSALY, BING Referring Unavailable ROB ROMERO Referring Unavailable SUSANNAH, JESSICA S Primary Care Unavailable ABOUASSALY, BING Referring Unavailable ABOUASSALY, BING Attending Unavailable SELF Referring Unavailable SUSANNAH, JESSICA S Primary Care Unavailable ABOUASSALY, BING Attending Unavailable ABOUASSALY BING Admitting Unavailable Allergies Allergy Classification Reported Allergen(s) Allergy Type Date of Onset Reaction(s) Facility (2 sources) No Known Medication Allergies; Translations: [No Known Medication Allergies] Propensity to adverse reactions (disorder) [facility] Repository (6 sources) tamsulosin; Translations: [TAMSULOSIN] Drug Allergy 5 Other: See Comments [facility] Medications Current Medications Medication Drug Class(es) Dates Sig (Normalized) Sig (Original) acetaminophen 325 mg oral tablet (3 sources) Start: 02-28-2025 take 2 tablets by mouth every six hours as needed acetaminophen (TYLENOL) 325 mg tablet Take 2 tablets by mouth every 6 hours as needed for pain. 40 tablet 02/28/2025 3:04 PM EDT 02/28/2025 Active allopurinol 300 mg oral tablet (2 sources) Xanthine Oxidase Inhibitor Start: 10-24-2024 allopurinol 300 mg Tab Oral, Refills(s) 0 Start Date: 10/24/24 Status: Ordered docusate sodium 100 mg oral capsule (3 sources) Start: 02-28-2025 End: 03-14-2025 take 1 capsule by mouth twice daily in the evening docusate sodium (COLACE) 100 mg capsule Take 1 capsule by mouth two times a day for 14 days. Stop taking if you develop diarrhea or loose stools 28 capsule 02/28/2025 3:04 PM EDT 02/28/2025 03/14/2025 Active dutasteride 0.5 mg oral capsule (9 sources) 5-alpha Reductase Inhibitor take 1 capsule by mouth once daily dutasteride (AVODART) 0.5 mg capsule Take 0.5 mg by mouth once daily. Active FLUoxetine 10 mg oral capsule (11 sources) Serotonin Reuptake Inhibitor Start: 10-24-2024 FLUoxetine 10 mg Cap 10 mg = 1 cap(s), Refills(s) 0 Start Date: 10/24/24 Status: Ordered hydroCHLOROthiazide 12.5 mg / lisinopril 20 mg oral tablet (8 sources) Thiazide Diuretic, Angiotensin Converting Enzyme Inhibitor Start: 10-24-2024 hydrochlorothiazid e-lisinopril 12.5 mg-20 mg Tab 1 tab(s), Refill(s) 0 Start Date: 10/24/24 Status: Ordered take 1 tablet by melo once daily lisinopril-hydroCHLOROthiazide (ZESTORET IC) 20-12.5 mg per tablet Take 1 tablet by mouth once daily. Active metFORMIN hydrochloride 1000 mg oral tablet (11 sources) Biguanide Start: 10-24-2024 metformin 1000 mg Tab 1,000 mg = 1 tab(s), Refills(s) 0 Start Date: 10/24/24 Status: Ordered metFORMIN (GLUCO PHAGE) 1,000 mg tablet Take 500 mg by mouth two times a day. Active 24 hr metoprolol succinate 100 mg extended release oral tablet (11 sources) beta-Adrenergic Robles Start: 10-24-2024 take 100 mg by mouth once daily metoprolol succinate ER (TOPROL XL) 100 mg Take 100 mg by mouth once daily. 10/24/2024 Active take 1 tablet by mouth twice kandi ly metoprolol tartrate, short acting, (LOPRESSOR) 100 mg tablet Take 100 mg by mouth two times a day. 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 8 tablet 02/28/2025 3:04 PM EDT 02/28/2025 03/03/2025 Active spironolactone 25 mg oral tablet (11 sources) Aldosterone Antagonist Start: 10-24-2024 take 1 tablet by mouth twice daily spironolactone 25 mg Tab 25 mg, Oral, BID, Refills(s) 0 Start Date: 10/24/24 Status: Ordered sulfamethoxazole 800 mg / trimethoprim 160 mg oral tablet (2 sources) Dihydrofolate Reductase Inhibitor Antibacterial, Sulfonamide Antimicrobial Start: 10-24-2024 End: 11-11-2024 Bactrim D.S. 800 mg-160 mg Tab See Instructions, 24 tab(s), Refill(s) 0, 1 tab po BID x 7d, then 1 tab po QD x 10d, [id number], 182, cm, 10/24/24 9:12:00 EST, Height/Length Dosing, 130, kg, 10/24/24 9:12:00 EST, Weight Dosing Start Date: 10/24/24 Stop Date: 11/11/24 Status: Ordered tamsulosin hydrochloride 0.4 mg oral capsule (9 sources) alpha-Adrenergic Robles Start: 11-11-2024 take 1 capsule by mouth every twelve hours tamsulosin (FLOMAX) 0.4 mg Take 1 capsule by mouth every 12 hours. 11/11/2024 Active Completed/Discontinued Medications Medication Drug Class(es) Dates Sig (Normalized) Sig (Original) 5 ml iron sucrose 20 mg/ml injection (1 source) Parenteral Iron Replacement Start: 02-17-2025 End: 02-17-2025 200 mg, INTRAVENOUS, ONCE, 1 dose, On 02/17/25 at 0930, May administer up to 200 mg via IV push over 5-10 minutes. Please conduct a 30 minute post-dose observation. Problems Active Problems Problem Classification Problem Date Documented Da te Episodic/Chronic Acute and unspecified renal failure (2 sources) Acute renal failure syndrome; Translations: [Acute kidney failure, unspecified] Onset: 03-04-2025 02-28-2025 Episodic Deficiency and other anemia (11 sources) Iron deficiency anemia; Translations: [Iron deficiency anemia, unspecified] Onset: 02-10-2025 02-10-2025 Episodic Deficiency and other anemia (1 source) Iron deficiency anemia, unspecified; Translations: [Iron deficiency anemia, unspecified iron deficiency anemia type] Onset: 02-10-2025 Episodic Diabetes mellitus without complication (13 sources) Type 2 diabetes mellitus; Translations: [Type 2 diabetes mellitus without complications] Onset: 02-07-2025 02-07-2025 Chronic Essential hypertension (15 sources) Benign hypertension; Translations: [Hypertensive disorder] Onset: 02-07-2025 10-24-2024 Chronic Fluid and electrolyte disorders (1 source) Hyperkalemia; Translations: [Hyperkalemia] 03-10-2025 Episodic Genitourinary symptoms and ill-defined conditions (3 sources) Beth hematuria; Translations: [Blood in urine] Onset: 10-23-2024 10-23-2024 Episodic Hyperplasia of prostate (16 sources) Benign prostatic hypertrophy with outflow obstruction; Translations: [Benign prostatic hyperplasia with lower urinary tract symptoms] Onset: 10-24-2024 10-24-2024 Chronic Mood disorders (12 sources) Depressive disorder; Translations: [Depression, unspecified depression type] Onset: 02-07-2025 02-07-2025 Chronic Mood disorders (1 source) Mood disorders; Translations: [Depression, unspecified depression type] Onset: 02-07-2025 Neoplasms of unspecified nature or uncertain behavior (4 sources) Neoplasm of uncertain behavior of left kidney; 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] Onset: 01-03-2025 01-03-2025 Episodic Other diseases of kidney and ureters (6 sources) Renal mass; Translations: [Other specified disorders of kidney and ureter] Onset: 02-28-2025 01-06-2025 Chronic Other diseases of kidney and ureters (1 source) Other specified disorders of kidney and ureter; Translations: [Renal mass, left] Onset: 01-24-2025 Chronic Other diseases of kidney and ureters (1 source) Urinary tract obstruction; Translations: [Other obstructive and reflux uropathy] Onset: 10-24-2024 Episodic Other diseases of kidney and ureters (1 source) Other obstructive and reflux uropathy; Translations: [BPH with obstruction/lower urinary tract symptoms] Onset: 02-07-2025 Episodic Other gastrointestinal disorders (11 sources) Intestinal malabsorption; Translations: [Intestinal malabsorption, unspecified] Onset: 02-10-2025 02-10-2025 Chronic Other gastrointestinal disorders (1 source) Intestinal malabsorption, unspecified; Translations: [Intestinal malabsorption, unspecified type (HCC)] Onset: 02-10-2025 Chronic Other gastrointestinal disorders (2 sources) Constipation 10-24-2024 Episodic Other gastrointestinal disorders (1 source) Constipation, unspecified; Translations: [Constipation, unspecified] Onset: 10-24-2024 Episodic Other nutritional; endocrine; and metabolic disorders (12 sources) Obesity caused by energy imbalance; Translations: [Class 2 obesity due to excess calories without serious comorbidity in adult, unspecified BMI] Onset: 02-07-2025 02-07-2025 Chronic Other nutritional; endocrine; and metabolic disorders (1 source) Other obesity due to excess calories; Translations: [Class 2 obesity due to excess calories without serious comorbidity in adult, unspecified BMI] Onset: 02-07-2025 Chronic Other screening for suspected conditions (not mental disorders or infectious disease) (4 sources) Encounter for screening for malignant neoplasm of prostate; Translations: [Screening for malignant neoplasm done] Onset: 10-24-2024 Episodic Residual codes; unclassified (12 sources) Obstructive sleep apnea syndrome; Translations: [Obstructive sleep apnea (adult) (pediatric)] Onset: 02-07-2025 02-07-2025 Chronic Residual codes; unclassified (1 source) Obstructive sleep apnea (adult) (pediatric); Translations: [ROSA M (obstructive sleep apnea)] Onset: 02-07-2025 Chronic Unclassified (2 sources) Patient encounter status 10-24-2024 Unclassified (1 source) Class 2 obesity due to excess calories without serious comorbidity in adult, unspecified BMI; Translations: [Class 2 obesity due to excess calories without serious comorbidity in adult, unspecified BMI] Onset: 02-07-2025 Past or Other Problems Problem Classification Problem Date Documented Da te Episodic/Chronic Unclassified (1 source) Preprocedural examination done 02-07-2025 Results Test Name Value Interpretation Reference Range Facility [facility] 03-05-2025 CNPN Telephone (FVUROL) SKYLER LE ([id number]) 1960 M Date Time Provider Department 03/05/25 BING ARVIZU During your visit today, we recorded the following information about you: Angela Luis 03/05/2025 1:52 PM Signed Patient needs the provider to complete [place] paperwork for his medical leave. Patient gave provider the paperwork at his office visit on 01/03/25. Please advise Allergies As of Date: 03/05/2025 Noted Allergy Reaction FLOMAX (TAMSULOSIN) 02/27/2025 14 - Other: See Comments Comments: dizziness and back pain Date Reviewed: 02/28/2025 Reviewed by: Latrice Hathaway, RN - Fully Assessed Reason for Visit: Patient Question [0548] Prescriptions as of 03/05/2025 - acetaminophen (TYLENOL) 325 mg tablet Take 2 tablets by mouth every 6 hours as needed for pain. - docusate sodium (COLACE) 100 mg capsule Take 1 capsule by mouth two times a day for 14 days. Stop taking if you develop diarrhea or loose stools - metoprolol tartrate, short acting, (LOPRESSOR) 100 mg tablet Take 100 mg by mouth two times a day. - dutasteride (AVODART) 0.5 mg capsule Take 0.5 mg by mouth once daily. - tamsulosin (FLOMAX) 0.4 mg Take 1 capsule by mouth every 12 hours. - spironolactone (ALDACTONE) 25 mg tablet Take 25 mg by mouth two times a day. - metFORMIN (GLUCOPHAGE) 1,000 mg tablet Take 500 mg by mouth two times a day. - FLUoxetine (PROZAC) 10 mg capsule Take 10 mg by mouth once daily. Problem List As Of Date 03/05/2025 Noted Resolved BPH with obstruction/lower urinary tract sympto*02/07/2025 Depression [F32.A] 02/07/2025 Type 2 diabetes mellitus without complications *02/07/2025 Hypertension [I10] 02/07/2025 ROSA M (obstructive sleep apnea) [G47.33] 02/07/2025 Class 2 obesity due to excess calories without *02/07/2025 Iron deficiency anemia, unspecified [D50.9] 02/10/2025 Intestinal malabsorption (HCC) [K90.9] 02/10/2025 Kidney mass [N28.89] 02/28/2025 Encounter Status:Closed by ANGELA LUIS on 03/05/25 Normal [facility] Renal function 2000 panelon 03-04-2025 Albumin [Mass/Vol] 3.6 g/dL Low 3.9-4.9 [facility] Comment on above: Order Comment: Speci men Type: TISSUE SPECIMEN Ordering Facility: [facility] Address: [address] [place] [address] Performed By: #### 6 6121-5 #### [facility] CLIA [id number] [address] [place] [address] [place] Anion gap [Moles/Vol] 14 mmol/L Normal 8-[address] [facility] Comment on above: Order Comment: Speci men Type: TISSUE SPECIMEN Ordering Facility: [facility] Address: [address] [place] [address] Performed By: #### 6 6121-5 #### [facility] CLIA [id number] [address] [place], [place] [id number] [place] Calcium [Mass/Vol] 9.4 mg/dL Normal 8.5-10.2 [facility] Comment on above: Order Comment: Speci men Type: TISSUE SPECIMEN Ordering Facility: [facility] Address: [address] [place] [address] Performed By: #### 6 6121-5 #### [facility] CLIA [id number] [address] [place], [place] [id number] [place] Chloride [Moles/Vol] 98 mmol/L Normal 98-107 [facility] Comment on above: Order Comment: Speci men Type: TISSUE SPECIMEN Ordering Facility: [facility] Address: [address] [place] [address] Performed By: #### 6 6121-5 #### [facility] CLIA [id number] [address] [place] [address] [place] CO2 [Moles/Vol] 21 mmol/L Low 22-[address] [facility] Comment on above: Order Comment: Speci men Type: TISSUE SPECIMEN Ordering Facility: [facility] Address: [address] [place] [address] Performed By: #### 6 6121-5 #### [facility] CLIA [id number] [address] [place], [place] [address] [place] Creatinine [Mass/Vol] 2.08 mg/dL High 0.73-1.[address] [facility] Comment on above: Order Comment: Speci men Type: TISSUE SPECIMEN Ordering Facility: [facility] Address: [address] [place], [place] [id number] Performed By: #### 6 6121-5 #### [facility] CLIA [id number] [address] [place], [place] [address] [place] Creatinine and Glomerular filtration rate.predicted panel (S/P/Bld) 34 mL/min/1.73m??? Low >=[address] [facility] Comment on above: Order Comment: Speci men Type: TISSUE SPECIMEN Ordering Facility: [facility] Address: [address] [place] [address] Result Comment: Samantha mated Glomerular Filtration Rate (eGFR) is calculated using the 2020 CKD-EPI creatinine equation. This equation utilizes serum creatinine, sex, and age as parameters. The creatinine assay has traceable calibration to isotope dilution-mass spectrometry. Refer to KDIGO guidelines for clinical interpretation. In patients with unstable renal function, e.g. those with acute kidney injury, the eGFR may not accurately reflect actual GFR. Performed By: #### 6 6121-5 #### [facility] CLIA [id number] [address] [place] [address] [place] Glucose [Mass/Vol] 115 mg/dL High 74-99 [facility] Comment on above: Order Comment: Miguelina thomas Type: TISSUE SPECIMEN Ordering Facility: [facility] Address: [address] [place] [address] Result Comment: The [place] Diabetes Association (ADA) provides guidance for cutoff values for fasting glucose and random glucose. The ADA defines fasting as no caloric intake for at least 8 hours. Fasting plasma glucose results between 100 to 125 mg/dL indicate increased risk for diabetes (prediabetes). Fasting plasma glucose results greater than or equal to 126 mg/dL meet the criteria for diagnosis of diabetes. In the absence of unequivocal hyperglycemia, results should be confirmed by repeat testing. In a patient with classic symptoms of hyperglycemia or hyperglycemic crisis, random plasma glucose results greater than or equal to 200 mg/dL meet the criteria for diagnosis of diabetes. Reference: Standards of Medical Care in Diabetes 2016, [place] Diabetes Association. Diabetes Care. 2016.39(Suppl 1). Performed By: #### 6 6121-5 #### [facility] CLIA [id number] [address] [place] [address] [place] Phosphate [Mass/Vol] 3.1 mg/dL Normal 2.7-4.8 [facility] Comment on above: Order Comment: Miguelina thomas Type: TISSUE SPECIMEN Ordering Facility: [facility] Address: [address] [place] [address] Performed By: #### 6 6121-5 #### [facility] CLIA [id number] [address] [place] [address] [place] Potassium [Moles/Vol] 5.6 mmol/L High 3.7-5.[address] [facility] Comment on above: Order Comment: Speci men Type: TISSUE SPECIMEN Ordering Facility: [facility] Address: [address] [place] [address] Performed By: #### 6 6121-5 #### [facility] CLIA [id number] [address] [place] [address] [place] Sodium [Moles/Vol] 133 mmol/L Low 136-144 [facility] Comment on above: Order Comment: Speci men Type: TISSUE SPECIMEN Ordering Facility: [facility] Address: [address] [place] [address] Performed By: #### 6 6121-5 #### [facility] CLIA [id number] [address] [place] [address] [place] Urea nitrogen [Mass/Vol] 33 mg/dL High 9-[address] [facility] Comment on above: Order Comment: Speci men Type: TISSUE SPECIMEN Ordering Facility: [facility] Address: [address] [place] [address] Performed By: #### 6 6121-5 #### [facility] [place] [id number] [address] [place] [address] [place] ANES POSTPROC EVALon 025 ANES POSTPROC EVAL HNO ID: [id number] Author: BETH MASTERSON DO Service: Anesthesiology Author Type: Anesthesiologist Type: Anesthesia Postprocedure Evaluation Filed: 02/28/2025 07:22 Note Text: POST ANESTHESIA EVALUATION NOTE : 1960 Procedure Summary Date: 02/27/25 Room / Location: OR01A / [facility] OR Anesthesia Start: 743 Anesthesia Stop: 1222 Procedure: ROBOTIC LAPAROSCOPIC NEPHRECTOMY RADICAL (Left) 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 Post Anesthesia Patient Status Patient Evaluation: PACU. PACU/ICU Patient Condition: stable. Anticipated Disposition: inpatient floor planned admission. Neurological Status: aware and responsive. Pulmonary Status: breathing comfortably on supplemental oxygen Airway Control: returned to baseline unsupported. Cardiovascular Status: stable. Pain Management: clinically adequate Postoperative Hydration: acceptable. Intraoperative Events: no significant anesthesia events Post Operative Nausea/Vomiting Status: no significant post operative nausea or vomiting Recommendation: continue current plan of care. Anesthesia Observations No Documentation SIGNATURE: Beth Masterson DO PATIENT NAME: Skyler Le DATE: February 28, 2025 TIME: 7:22 AM CSN: [id number] Normal [facility] Basic metabolic 2000 panelon 02-28-2025 Anion gap [Moles/Vol] 15 mmol/L Normal 8-15 [facility] Comment on above: Order Comment: Miguelina thomas Type: BLOOD SPECIMEN Ordering Facility: [facility] Address: [address] [place] [address] Performed By: #### 2 4321-2 #### [facility] CLIA [id number] [place] [address] [place] Calcium [Mass/Vol] 8.9 mg/dL Normal 8.5-10.2 [facility] Comment on above: Order Comment: Miguelina thomas Type: BLOOD SPECIMEN Ordering Facility: [facility] Address: [address] [place] [address] Performed By: #### 2 4321-2 #### [facility] CLIA [id number] [address] [place] [address] [place] Chloride [Moles/Vol] 99 mmol/L Normal 98-107 [facility] Comment on above: Order Comment: Speci men Type: BLOOD SPECIMEN Ordering Facility: [facility] Address: [address] [place] [address] Performed By: #### 2 4321-2 #### [facility] CLIA [id number] [address] [place] [address] [place] CO2 [Moles/Vol] 21 mmol/L Low 22-30 [facility] Comment on above: Order Comment: Speci men Type: BLOOD SPECIMEN Ordering Facility: [facility] Address: [address] [place] [address] Performed By: #### 2 4321-2 #### [facility] CLIA [id number] [address] [place] [address] [place] Creatinine [Mass/Vol] 2.00 mg/dL High 0.73-1.22 [facility] Comment on above: Order Comment: Speci men Type: BLOOD SPECIMEN Ordering Facility: [facility] Address: [address] [place] [address] Performed By: #### 2 4321-2 #### [facility] CLIA [id number] [address] [place] [address] [place] Creatinine and Glomerular filtration rate.predicted panel (S/P/Bld) 36 mL/min/1.73m??? Low >=60 [facility] Comment on above: Order Comment: Speci men Type: BLOOD SPECIMEN Ordering Facility: [facility] Address: [address] [place] [address] Result Comment: Samantha mated Glomerular Filtration Rate (eGFR) is calculated using the 2020 CKD-EPI creatinine equation. This equation utilizes serum creatinine, sex, and age as parameters. The creatinine assay has traceable calibration to isotope dilution-mass spectrometry. Refer to KDIGO guidelines for clinical interpretation. In patients with unstable renal function, e.g. those with acute kidney injury, the eGFR may not accurately reflect actual GFR. Performed By: #### 2 4321-2 #### [facility] CLIA [id number] [place] [address] [place] Glucose [Mass/Vol] 131 mg/dL High 74-99 [facility] Comment on above: Order Comment: Ryliei men Type: BLOOD SPECIMEN Ordering Facility: [facility] Address: [address] [place] [address] Result Comment: The [place] Diabetes Association (ADA) provides guidance for cutoff values for fasting glucose and random glucose. The ADA defines fasting as no caloric intake for at least 8 hours. Fasting plasma glucose results between 100 to 125 mg/dL indicate increased risk for diabetes (prediabetes). Fasting plasma glucose results greater than or equal to 126 mg/dL meet the criteria for diagnosis of diabetes. In the absence of unequivocal hyperglycemia, results should be confirmed by repeat testing. In a patient with classic symptoms of hyperglycemia or hyperglycemic crisis, random plasma glucose results greater than or equal to 200 mg/dL meet the criteria for diagnosis of diabetes. Reference: Standards of Medical Care in Diabetes 2016, [place] [employer]. Diabetes Care. 2016.39(Suppl 1). Performed By: #### 2 4321-2 #### [facility] CLIA [id number] [address] [place] [address] [place] Potassium [Moles/Vol] 4.6 mmol/L Normal 3.7-5.1 [facility] Comment on above: Order Comment: Miguelina thomas Type: BLOOD SPECIMEN [facility] [facility] Address: [address] [place] [address] Performed By: #### 2 4321-2 #### [facility] CLIA [id number] [address] [place] [address] [place] Sodium [Moles/Vol] 135 mmol/L Low 136-144 [facility] Comment on above: Order Comment: Speci men Type: BLOOD SPECIMEN Ordering Facility: [facility] Address: [address] [place] [address] Performed By: #### 2 4321-2 #### [facility] CLIA [id number] [address] [place] [address] [place] Urea nitrogen [Mass/Vol] 28 mg/dL High 9-24 [facility] Comment on above: Order Comment: Ryliei men Type: BLOOD SPECIMEN Ordering Facility: [facility] Address: [address] [place] [address] Performed By: #### 2 4321-2 #### [facility] CLIA [id number] [place] [address] [place] Anion gap [Moles/Vol] 11 mmol/L Normal 8-15 [facility] Comment on above: Order Comment: Speci men Type: BLOOD SPECIMEN Ordering Facility: [facility] Address: [address] [place] [address] Performed By: #### 2 4321-2 #### [facility] CLIA [id number] [address] [place] [address] [place] Calcium [Mass/Vol] 8.3 mg/dL Low 8.5-10.2 [facility] Comment on above: Order Comment: Speci men Type: BLOOD SPECIMEN Ordering Facility: [facility] Address: [address] [place] [address] Performed By: #### 2 4321-2 #### [facility] CLIA [id number] [address] [place] [address] [place] Chloride [Moles/Vol] 101 mmol/L Normal 98-107 [facility] Comment on above: Order Comment: Speci men Type: BLOOD SPECIMEN Ordering Facility: [facility] Address: [address] [place] [address] Performed By: #### 2 4321-2 #### [facility] CLIA [id number] [address] [place] [address] [place] CO2 [Moles/Vol] 22 mmol/L Normal 22-30 [facility] Comment on above: Order Comment: Speci men Type: BLOOD SPECIMEN Ordering Facility: [facility] Address: [address] [place] [address] Performed By: #### 2 4321-2 #### [facility] CLIA [id number] [address] [place] [address] [place] Creatinine [Mass/Vol] 1.99 mg/dL High 0.73-1.22 [facility] Comment on above: Order Comment: Speci men Type: BLOOD SPECIMEN Ordering Facility: [facility] Address: [address] [place] [address] Performed By: #### 2 4321-2 #### [facility] CLIA [id number] [address] [place] [address] [place] Creatinine and Glomerular filtration rate.predicted panel (S/P/Bld) 36 mL/min/1.73m??? Low >=60 [facility] Comment on above: Order Comment: Miguelina thomas Type: BLOOD SPECIMEN Ordering Facility: [facility] Address: [address] [place] [address] Result Comment: Samantha mated Glomerular Filtration Rate (eGFR) is calculated using the 2020 CKD-EPI creatinine equation. This equation utilizes serum creatinine, sex, and age as parameters. The creatinine assay has traceable calibration to isotope dilution-mass spectrometry. Refer to KDIGO guidelines for clinical interpretation. In patients with unstable renal function, e.g. those with acute kidney injury, the eGFR may not accurately reflect actual GFR. Performed By: #### 2 4321-2 #### [facility] CLIA [id number] [address] [place] [address] [place] Glucose [Mass/Vol] 142 mg/dL High 74-99 [facility] Comment on above: Order Comment: Miguelina thomas Type: BLOOD SPECIMEN Ordering Facility: [facility] Address: [address] [place] [address] Result Comment: The [place] Diabetes [employer] (ADA) provides guidance for cutoff values for fasting glucose and random glucose. The ADA defines fasting as no caloric intake for at least 8 hours. Fasting plasma glucose results between 100 to 125 mg/dL indicate increased risk for diabetes (prediabetes). Fasting plasma glucose results greater than or equal to 126 mg/dL meet the criteria for diagnosis of diabetes. In the absence of unequivocal hyperglycemia, results should be confirmed by repeat testing. In a patient with classic symptoms of hyperglycemia or hyperglycemic crisis, random plasma glucose results greater than or equal to 200 mg/dL meet the criteria for diagnosis of diabetes. Reference: Standards of Medical Care in Diabetes 2016, [place] Diabetes Association. Diabetes Care. 2016.39(Suppl 1). Performed By: #### 2 4321-2 #### [facility] CLIA [id number] [address] [place] [id number] [place] Potassium [Moles/Vol] 5.8 mmol/L High 3.7-5.1 [facility] Comment on above: Order Comment: Speci men Type: BLOOD SPECIMEN Ordering Facility: [facility] Address: [address] [place] [address] Performed By: #### 2 4321-2 #### [facility] CLIA [id number] [address] [place] [address] [place] Sodium [Moles/Vol] 134 mmol/L Low 136-144 [facility] Comment on above: Order Comment: Speci men Type: BLOOD SPECIMEN Ordering Facility: [facility] Address: [address] [place] [address] Performed By: #### 2 4321-2 #### [facility] CLIA [id number] [address] [place] [address] [place] Urea nitrogen [Mass/Vol] 29 mg/dL High 9-24 [facility] Comment on above: Order Comment: Speci men Type: BLOOD SPECIMEN Ordering Facility: [facility] Address: [address] [place] [address] Performed By: #### 2 4321-2 #### [facility] CLIA [id number] [address] [place] [address] [place] CBC panel Auto (Bld)on 02-28 Erythrocyte distribution width (RBC) [Ratio] 16.5 % High 11.5-15.0 [facility] Comment on above: Order Comment: Speci men Type: BLOOD SPECIMEN Ordering Facility: [facility] Address: [address] [place] [address] Performed By: #### 5 8410-2 #### [facility] CLIA [id number] [address] [place] [address] [place] Hematocrit (Bld) [Volume fraction] 30.1 % Low 39.0-51.0 [facility] Comment on above: Order Comment: Speci men Type: BLOOD SPECIMEN Ordering Facility: [facility] Address: [address] [place] [address] Performed By: #### 5 8410-2 #### [facility] CLIA [id number] [address] [place] [address] [place] Hemoglobin (Bld) [Mass/Vol] 9.2 g/dL Low 13.0-17.0 [facility] Comment on above: Order Comment: Speci men Type: BLOOD SPECIMEN Ordering Facility: [facility] Address: [address] [place] [address] Performed By: #### 5 8410-2 #### [facility] CLIA [id number] [address] [place] [address] [place] MCH (RBC) [Entitic mass] 24.0 pg Low 26.0-34.0 [facility] Comment on above: Order Comment: Speci men Type: BLOOD SPECIMEN Ordering Facility: [facility] Address: [address] [place] [address] Performed By: #### 5 8410-2 #### [facility] CLIA [id number] [address] [place] [address] [place] MCHC (RBC) [Mass/Vol] 30.6 g/dL Normal 30.5-36.0 [facility] Comment on above: Order Comment: Speci men Type: BLOOD SPECIMEN Ordering Facility: [facility] Address: [address] [place] [address] Performed By: #### 5 8410-2 #### [facility] CLIA [id number] [address] [place] [address] [place] MCV (RBC) [Entitic vol] 78.4 fL Low 80.0-100.0 [facility] Comment on above: Order Comment: Speci men Type: BLOOD SPECIMEN Ordering Facility: [facility] Address: [address] [place] [address] Performed By: #### 5 8410-2 #### [facility] CLIA [id number] [address] [place] [address] [place] Nucleated RBC (Bld) [#/Vol] 10*3/uL Normal <0.01 [facility] Comment on above: Order Comment: Speci men Type: BLOOD SPECIMEN Ordering Facility: [facility] Address: [address] [place] [address] Performed By: #### 5 8410-2 #### [facility] CLIA [id number] [address] [place] [address] [place] Platelet mean volume (Bld) [Entitic vol] 9.1 fL Normal 9.0-12.7 [facility] Comment on above: Order Comment: Speci men Type: BLOOD SPECIMEN Ordering Facility: [facility] Address: [address] [place] [address] Performed By: #### 5 8410-2 #### [facility] CLIA [id number] [address] [place] [address] [place] Platelets (Bld) [#/Vol] 243 10*3/uL Normal 150-400 [facility] Comment on above: Order Comment: Speci men Type: BLOOD SPECIMEN Ordering Facility: [facility] Address: [address] [place] [address] Performed By: #### 5 8410-2 #### [facility] CLIA [id number] [address] [place] [address] [place] RBC (Bld) [#/Vol] 3.84 10*6/uL Low 4.20-6.00 [facility] Comment on above: Order Comment: Speci men Type: BLOOD SPECIMEN Ordering Facility: [facility] Address: [address] [place] [address] Performed By: #### 5 8410-2 #### [facility] CLIA [id number] [address] [place] [address] [place] WBC (Bld) [#/Vol] 12.56 10*3/uL High 3.70-11.00 [facility] Comment on above: Order Comment: Speci men Type: BLOOD SPECIMEN Ordering Facility: [facility] Address: [address] [place] [address] Performed By: #### 5 8410-2 #### [facility] CLIA [id number] [address] [place] [address] [place] NURSING PROGon 02-28-2025 NURSING PROG HNO ID: [id number] Author: ANABEL BARNETT RN Service: Nursing Author Type: Registered Nurse Type: Nursing Progress Note Filed: 02/28/2025 00:41 Note Text: 2221- BP 137/73 HR 57. metoprolol due with no parameters purple team paged about whether to give or hold metoprolol due to pt HR. Waiting for orders 2350: BP 134/72 HR 54. Second page sent to purple team about whether to hold or give metoprolol. Waiting for orders [facility] THERAPY NTon 02-28-2025 THERAPY NT HNO ID: [id number] Author: CAROL ARITA, NINOSKA Service: Respiratory Therapy Author Type: Registered Resp Therapist Type: Therapy (PT/OT/Speech/Resp) Filed: 02/28/2025 03:56 Note Text: RESPIRATORY THERAPY PROGRESS NOTE SERVICE DATE: 02/28/2025 SERVICE TIME: 0000 Patient has home CPAP present, shiela team paged for CPAP orders. SIGNATURE: Carol Arita RRT PATIENT NAME: Skyler Le DATE: February 28, 2025 TIME: 3:54 AM [facility]-OPon 02-27-2025 ANES PRE-OP HNO ID: [id number] Author: BETH MASTERSON DO Service: Anesthesiology Author Type: Anesthesiologist Type: Anesthesia Preprocedure Evaluation Filed: 02/27/2025 07:13 Note Text: ANESTHESIOLOGY DAY OF SURGERY NOTE : 1960 Procedure Information Date/Time: 02/27/2530 Procedure: ROBOTIC LAPAROSCOPIC NEPHRECTOMY PARTIAL (Left: Abdomen quadrant upper) Location: OR01A / [facility] OR Surgeons: Bing Arvizu MD Estimated body mass index is 37.3 kg/m? as calculated from the following: Height as of 02/07/25: 182.9 cm (6'). Weight as of 02/07/25: 124.7 kg (275 lb). Most recent hematocrit and potassium results: Hematocrit 35.9 01/24/2025 Potassium 4.5 01/24/2025 Relevant Problems ANESTHESIA (+) ROSA M (obstructive sleep apnea) CARDIO (+) Hypertension ENDO (+) Type 2 diabetes mellitus without complications (HCC) PULMONARY (+) ROSA M (obstructive sleep apnea) Patient denies history of general anesthesia before. Denies family issues with anesthesia. I - PHYSICAL EVALUATION AIRWAY Patient intubated: No. Tracheostomy tube not present Mallampati: III. TM distance: >3 FB. Neck ROM: full ROM without neurological symptoms. Mouth opening: adequate. Short neck: yes. Thick neck: yes Taylor present: no Lip Bite Test: II Microretrognathia/Micro nagthia/Recessed Chin: No DENTAL Dental findings: teeth intact and missing tooth/teeth. II - ANESTHESIA PLAN ASA Score: 3 Anesthetic Plan: general Airway type: ETT The patient is not a current smoker. NPO Status: adequate Beta Robles Administration of chronic beta robles medication not planned. Monitoring Plan Monitoring plan: standard ASA and invasive hemodynamic monitoring. Monitoring method: arterial Line Post Procedure Analgesic Plan Postoperative analgesic plan: parenteral or oral opioids, multimodal analgesia and per surgical service. Informed Consent Anesthetic risks, benefits, alternatives, personnel and consent discussed: yes. Patient / Responsible Libertarian agrees to proceed: yes Patient / Surrogate agrees to blood products: Yes Significant changes in the patient condition since the History and Physical, not otherwise documented in primary service progress note: no. Potential Anesthesia issues that may suggest increased risk of complications or contraindication to planned procedure: none. Discussed the possibility of lip / dental damage: yes Vitals Value Taken Time BP 145/87 02/27/25 0647 Pulse 50 02/27/25 0647 Resp 18 02/27/25 0647 Temp 36.6 ?C (97.9 ?F) 02/27/25 0647 SpO2 98 % 02/27/25 0647 Facility-Administered Medications as of 02/27/2025 Medication Dose Route Frequency lidocaine (PF) 10 mg/mL (1 %) 1-2 mg injection (XYLOCAINE) 0.1-0.2 mL INTRADERMAL PRN lactated ringers iv infusion 5-30 mL/hr INTRAVENOUS CONTINUOUS NaCl 0.9% iv flush bag 20 mL INTRAVENOUS PRN heparin 5,000 Units injection 5,000 Units SUBCUTANEOUS ONCE ceFAZolin 3 g in D5W 100 mL (ANCEF) 3 g INTRAVENOUS Pre-Op Once [COMPLETED] acetaminophen 1,000 mg tab(s) (TYLENOL) 1,000 mg ORAL ONCE [COMPLETED] promethazine 12.5 mg tab(s) (PHENERGAN) 12.5 mg ORAL NOW Outpatient Medications as of 02/27/2025 Medication Sig metoprolol succinate ER (TOPROL XL) 100 mg Take 100 mg by mouth once daily. tamsulosin (FLOMAX) 0.4 mg Take 1 capsule by mouth every 12 hours. I have interviewed and examined the patient. I have reviewed the medical record and/or the pre-anesthesia evaluation, pertinent labs, and test results. This contains updated information obtained within 48 hours of Surgery/Procedure. SIGNATURE: Beth Masterson DO PATIENT NAME: Skyler Le DATE: February 27, 2025 TIME: 7:12 AM CSN: [id number] Normal [facility] ARTERIAL BLOOD GASESon 02-27 Base deficit (BldA) [Moles/Vol] -3 mmol/L Low -2-0 [facility] Comment on above: Order Comment: Speci men Type: ARTERIAL BLOOD SPECIMENOrdering Facility: [facility] Address: [address] [place] [address] Performed By: #### A LLBG ####[facility] [id number] [place] [address] [place] Calcium.ionized (Bld) [Mass/Vol] 1.24 mmol/L Normal 1.08-1.30 [facility] Comment on above: Order Comment: Speci men Type: ARTERIAL BLOOD SPECIMENOrdering Facility: [facility] Address: [address] [place] [address] Performed By: #### A LLBG ####[facility] [id number] [address] [place] Calcium.ionized adjusted to pH 7.4 (BldA) [Moles/Vol] 1.20 mmol/L Normal 1.08-1.30 [facility] Comment on above: Order Comment: Speci men Type: ARTERIAL BLOOD SPECIMENOrdering Facility: [facility] Address: [address] [place] [address] Performed By: #### A LLBG ####[facility] [id number] [address] [place] Carboxyhemoglobin (BldA) [Mass fraction] 1.4 % Normal 0.0-2.0 [facility] Comment on above: Order Comment: Speci men Type: ARTERIAL BLOOD SPECIMENOrdering Facility: [facility] Address: [address] [place] [address] Result Comment: Carb oxyhemoglobin Reference Range for Smokers: 2.0-8.0% Performed By: #### A LLBG ####[facility] [id number] [place] [id number] [place] Chloride [Moles/Vol] 103 mmol/L Normal 97-105 [facility] Comment on above: Order Comment: Speci men Type: ARTERIAL BLOOD SPECIMENOrdering Facility: [facility] Address: [address] [place] [address] Performed By: #### A LLBG ####[facility] [id number] [place] [address] [place] CO2 (Bld) [Partial pressure] 41 mm Hg Normal 36-46 [facility] Comment on above: Order Comment: Speci men Type: ARTERIAL BLOOD SPECIMENOrdering Facility: [facility] Address: [address] [place] [address] Performed By: #### A LLBG ####[facility] [id number] [address] [place] CO2 adjusted to patient's actual temperature (Bld) [Partial pressure] Normal [facility] Comment on above: Order Comment: Speci men Type: ARTERIAL BLOOD SPECIMENOrdering Facility: [facility] Address: [address] [place] [address] Performed By: #### A LLBG ####[facility] [id number] [place] [id number] [place] Glucose [Mass/Vol] 190 mg/dL High 60-105 [facility] Comment on above: Order Comment: Speci men Type: ARTERIAL BLOOD SPECIMENOrdering Facility: [facility] Address: [address] [place] [address] Performed By: #### A LLBG ####[facility] [id number] [place] [address] [place] HCO3 (Bld) [Moles/Vol] 22 mmol/L Normal 22-26 [facility] Comment on above: Order Comment: Speci men Type: ARTERIAL BLOOD SPECIMENOrdering Facility: [facility] Address: [address] [place] [address] Performed By: #### A LLBG ####[facility]ORY[facility] [id number] [address] [place] Hematocrit (Bld) [Volume fraction] 33.9 % Low 39.0-51.0 [facility] Comment on above: Order Comment: Speci men Type: ARTERIAL BLOOD SPECIMENOrdering Facility: [facility] Address: [address] [place] [address] Performed By: #### A LLBG ####[facility]ORYCLIA [id number] [place] [address] [place] Hemoglobin (Bld) [Mass/Vol] 11.0 g/dL Low 13.0-17.0 [facility] Comment on above: Order Comment: Speci men Type: ARTERIAL BLOOD SPECIMENOrdering Facility: [facility] Address: [address] [place] [address] Performed By: #### A LLBG ####[facility]ORYCLIA [id number] [place] [address] [place] Lactate [Moles/Vol] 2.7 mmol/L High 0.5-2.2 [facility] Comment on above: Order Comment: Speci men Type: ARTERIAL BLOOD SPECIMENOrdering Facility: [facility] Address: [address] [place] [address] Performed By: #### A LLBG ####[facility]ORYCLIA [id number] [address] [place] Methemoglobin (Bld) [Mass fraction] 0.8 % Normal 0.0-1.5 [facility] Comment on above: Order Comment: Speci men Type: ARTERIAL BLOOD SPECIMENOrdering Facility: [facility] Address: [address] [place] [address] Performed By: #### A LLBG ####[facility]ORYCLIA [id number] [place] [address] [place] Oxygen (Bld) [Partial pressure] 179 mm Hg High 85-95 [facility] Comment on above: Order Comment: Speci men Type: ARTERIAL BLOOD SPECIMENOrdering Facility: [facility] Address: [address] [place] [address] Performed By: #### A LLBG ####[facility]ORYCLIA [id number] [place] [address] [place] Oxygen adjusted to patient's actual temperature (Bld) [Partial pressure] Normal [facility] Comment on above: Order Comment: Speci men Type: ARTERIAL BLOOD SPECIMENOrdering Facility: [facility] Address: [address] [place] [address] Performed By: #### A LLBG ####[facility]ORYCLIA [id number] [place] [address] [place] Oxyhemoglobin (BldA) [Mass fraction] 97 % Normal 95-98 [facility] Comment on above: Order Comment: Speci men Type: ARTERIAL BLOOD SPECIMENOrdering Facility: [facility] Address: [address] [place] [address] Performed By: #### A LLBG ####[facility]ORYCLIA [id number] [place] [address] [place] pH (Bld) 7.35 [pH] Normal 7.35-7.45 [facility] Comment on above: Order Comment: Speci men Type: ARTERIAL BLOOD SPECIMENOrdering Facility: [facility] Address: [address] [place] [address] Performed By: #### A LLBG ####[facility]ATORYCLIA [id number] [place] [address] [place] pH adjusted to patient's actual temperature (Bld) Normal [facility] Comment on above: Order Comment: Speci men Type: ARTERIAL BLOOD SPECIMENOrdering Facility: [facility] Address: [address] [place] [address] Performed By: #### A LLBG ####[facility]ATORYCLIA [id number] [place] [address] [place] Potassium [Moles/Vol] 5.5 mmol/L High 3.5-5.0 [facility] Comment on above: Order Comment: Speci men Type: ARTERIAL BLOOD SPECIMENOrdering Facility: [facility] Address: [address] [place] [address] Performed By: #### A LLBG ####[facility]ORYCLIA [id number] [place] [address] [place] Sodium [Moles/Vol] 135 mmol/L Low 136-144 [facility] Comment on above: Order Comment: Speci men Type: ARTERIAL BLOOD SPECIMENOrdering Facility: [facility] Address: [address] [place] [address] Performed By: #### A LLBG ####[facility]IA [id number] [place] [address] [place] Base deficit (BldA) [Moles/Vol] -3 mmol/L Low -2-0 [facility] Comment on above: Order Comment: Speci men Type: ARTERIAL BLOOD SPECIMEN Ordering Facility: [facility] Address: [address] [place] [address] Performed By: #### A LLBG #### [facility] CLIA [id number] [address] [place] [address] [place] Calcium.ionized (Bld) [Mass/Vol] 1.24 mmol/L Normal 1.08-1.30 [facility] Comment on above: Order Comment: Speci men Type: ARTERIAL BLOOD SPECIMEN Ordering Facility: [facility] Address: [address] [place] [address] Performed By: #### A LLBG #### [facility] CLIA [id number] [address] [place] [address] [place] Calcium.ionized adjusted to pH 7.4 (BldA) [Moles/Vol] 1.20 mmol/L Normal 1.08-1.30 [facility] Comment on above: Order Comment: Speci men Type: ARTERIAL BLOOD SPECIMEN Ordering Facility: [facility] Address: [address] [place] [address] Performed By: #### A LLBG #### [facility] CLIA [id number] [address] [place] [address] [place] Carboxyhemoglobin (BldA) [Mass fraction] 0.8 % Normal 0.0-2.0 [facility] Comment on above: Order Comment: Speci men Type: ARTERIAL BLOOD SPECIMEN Ordering Facility: [facility] Address: [address] [place] [address] Result Comment: Carb oxyhemoglobin Reference Range for Smokers: 2.0-8.0% Performed By: #### A LLBG #### [facility] CLIA [id number] [address] [place] [address] [place] Chloride [Moles/Vol] 102 mmol/L Normal 97-105 [facility] Comment on above: Order Comment: Speci men Type: ARTERIAL BLOOD SPECIMEN Ordering Facility: [facility] Address: [address] [place] [address] Performed By: #### A LLBG #### [facility] CLIA [id number] [address] [place] [address] [place] CO2 (Bld) [Partial pressure] 43 mm Hg Normal 36-46 [facility] Comment on above: Order Comment: Speci men Type: ARTERIAL BLOOD SPECIMEN [facility] [facility] Address: [address] [place] [address] Performed By: #### A LLBG #### [facility] CLIA [id number] [address] [place] [address] [place] CO2 adjusted to patient's actual temperature (Bld) [Partial pressure] Normal [facility] Comment on above: Order Comment: Speci men Type: ARTERIAL BLOOD SPECIMEN Ordering Facility: [facility] Address: [address] [place] [address] Performed By: #### A LLBG #### [facility] CLIA [id number] [address] [place] [address] [place] Glucose [Mass/Vol] 214 mg/dL High 60-105 [facility] Comment on above: Order Comment: Speci men Type: ARTERIAL BLOOD SPECIMEN Ordering Facility: [facility] Address: [address] [place] [address] Performed By: #### A LLBG #### [facility] CLIA [id number] [address] [place] [address] [place] HCO3 (Bld) [Moles/Vol] 22 mmol/L Normal 22-26 [facility] Comment on above: Order Comment: Speci men Type: ARTERIAL BLOOD SPECIMEN Ordering Facility: [facility] Address: [address] [place] [address] Performed By: #### A LLBG #### [facility] CLIA [id number] [address] [place] [address] [place] Hematocrit (Bld) [Volume fraction] 33.9 % Low 39.0-51.0 [facility] Comment on above: Order Comment: Speci men Type: ARTERIAL BLOOD SPECIMEN Ordering Facility: [facility] Address: [address] [place] [address] Performed By: #### A LLBG #### [facility] CLIA [id number] [address] [place] [address] [place] Hemoglobin (Bld) [Mass/Vol] 11.0 g/dL Low 13.0-17.0 [facility] Comment on above: Order Comment: Speci men Type: ARTERIAL BLOOD SPECIMEN Ordering Facility: [facility] Address: [address] [place] [address] Performed By: #### A LLBG #### [facility] CLIA [id number] [address] [place] [address] [place] Lactate [Moles/Vol] 2.2 mmol/L Normal 0.5-2.2 [facility] Comment on above: Order Comment: Speci men Type: ARTERIAL BLOOD SPECIMEN Ordering Facility: [facility] Address: [address] [place] [address] Performed By: #### A LLBG #### [facility] CLIA [id number] [address] [place] [address] [place] Methemoglobin (Bld) [Mass fraction] 0.9 % Normal 0.0-1.5 [facility] Comment on above: Order Comment: Speci men Type: ARTERIAL BLOOD SPECIMEN Ordering Facility: [facility] Address: [address] [place] [address] Performed By: #### A LLBG #### [facility] CLIA [id number] [address] [place] [address] [place] Oxygen (Bld) [Partial pressure] 169 mm Hg High 85-95 [facility] Comment on above: Order Comment: Speci men Type: ARTERIAL BLOOD SPECIMEN Ordering Facility: [facility] Address: [address] [place] [address] Performed By: #### A LLBG #### [facility] CLIA [id number] [address] [place] [address] [place] Oxygen adjusted to patient's actual temperature (Bld) [Partial pressure] Normal [facility] Comment on above: Order Comment: Speci men Type: ARTERIAL BLOOD SPECIMEN Ordering Facility: [facility] Address: [address] [place] [address] Performed By: #### A LLBG #### [facility] CLIA [id number] [address] [place] [address] [place] Oxyhemoglobin (BldA) [Mass fraction] 97 % Normal 95-98 [facility] Comment on above: Order Comment: Speci men Type: ARTERIAL BLOOD SPECIMEN Ordering Facility: [facility] Address: [address] [place] [address] Performed By: #### A LLBG #### [facility] CLIA [id number] [address] [place] [address] [place] pH (Bld) 7.34 [pH] Low 7.35-7.45 [facility] Comment on above: Order Comment: Speci men Type: ARTERIAL BLOOD SPECIMEN Ordering Facility: [facility] Address: [address] [place] [address] Performed By: #### A LLBG #### [facility] CLIA [id number] [address] [place] [address] [place] pH adjusted to patient's actual temperature (Bld) Normal [facility] Comment on above: Order Comment: Speci men Type: ARTERIAL BLOOD SPECIMEN Ordering Facility: [facility] Address: [address] [place] [address] Performed By: #### A LLBG #### [facility] CLIA [id number] [address] [place] [address] [place] Potassium [Moles/Vol] 5.9 mmol/L High 3.5-5.0 [facility] Comment on above: Order Comment: Speci men Type: ARTERIAL BLOOD SPECIMEN Ordering Facility: [facility] Address: [address] [place] [address] Performed By: #### A LLBG #### [facility] CLIA [id number] [address] [place] [address] [place] Sodium [Moles/Vol] 135 mmol/L Low 136-144 [facility] Comment on above: Order Comment: Speci men Type: ARTERIAL BLOOD SPECIMEN Ordering Facility: [facility] Address: [address] [place] [address] Performed By: #### A LLBG #### [facility] CLIA [id number] [address] [place] [address] [place] Base deficit (BldA) [Moles/Vol] -2 mmol/L Normal -2-0 [facility] Comment on above: Order Comment: Speci men Type: ARTERIAL BLOOD SPECIMEN Ordering Facility: [facility] Address: [address] [place] [address] Performed By: #### A LLBG #### [facility] IA [id number] [address] [place] [address] [place] Calcium.ionized (Bld) [Mass/Vol] 1.24 mmol/L Normal 1.08-1.30 [facility] Comment on above: Order Comment: Speci men Type: ARTERIAL BLOOD SPECIMEN Ordering Facility: [facility] Address: [address] [place] [address] Performed By: #### A LLBG #### [facility] CLIA [id number] [address] [place] [address] [place] Calcium.ionized adjusted to pH 7.4 (BldA) [Moles/Vol] 1.21 mmol/L Normal 1.08-1.30 [facility] Comment on above: Order Comment: Speci men Type: ARTERIAL BLOOD SPECIMEN Ordering Facility: [facility] Address: [address] [place], [place] [id number] Performed By: #### A LLBG #### [facility] CLIA [id number] [address] [place] [address] [place] Carboxyhemoglobin (BldA) [Mass fraction] 1.5 % Normal 0.0-2.0 [facility] Comment on above: Order Comment: Speci men Type: ARTERIAL BLOOD SPECIMEN Ordering Facility: [facility] Address: [address] [place] [address] Result Comment: Carb oxyhemoglobin Reference Range for Smokers: 2.0-8.0% Performed By: #### A LLBG #### [facility] CLIA [id number] [address] [place] [address] [place] Chloride [Moles/Vol] 103 mmol/L Normal 97-105 [facility] Comment on above: Order Comment: Speci men Type: ARTERIAL BLOOD SPECIMEN Ordering Facility: [facility] Address: [address] [place] [address] Performed By: #### A LLBG #### [facility] CLIA [id number] [address] [place] [address] [place] CO2 (Bld) [Partial pressure] 43 mm Hg Normal 36-46 [facility] Comment on above: Order Comment: Speci men Type: ARTERIAL BLOOD SPECIMEN Ordering Facility: [facility] Address: [address] [place] [address] Performed By: #### A LLBG #### [facility] CLIA [id number] [address] [place] [address] [place] CO2 adjusted to patient's actual temperature (Bld) [Partial pressure] Normal [facility] Comment on above: Order Comment: Speci men Type: ARTERIAL BLOOD SPECIMEN Ordering Facility: [facility] Address: [address] [place] [address] Performed By: #### A LLBG #### [facility] CLIA [id number] [address] [place] [address] [place] Glucose [Mass/Vol] 183 mg/dL High 60-105 [facility] Comment on above: Order Comment: Speci men Type: ARTERIAL BLOOD SPECIMEN Ordering Facility: [facility] Address: [address] [place] [address] Performed By: #### A LLBG #### [facility] CLIA [id number] [address] [place] [address] [place] HCO3 (Bld) [Moles/Vol] 23 mmol/L Normal 22-26 [facility] Comment on above: Order Comment: Speci men Type: ARTERIAL BLOOD SPECIMEN Ordering Facility: [facility] Address: [address] [place] [address] Performed By: #### A LLBG #### [facility] CLIA [id number] [address] [place] [address] [place] Hematocrit (Bld) [Volume fraction] 32.5 % Low 39.0-51.0 [facility] Comment on above: Order Comment: Speci men Type: ARTERIAL BLOOD SPECIMEN Ordering Facility: [facility] Address: [address] [place] [address] Performed By: #### A LLBG #### [facility] CLIA [id number] [address] [place] [address] [place] Hemoglobin (Bld) [Mass/Vol] 10.5 g/dL Low 13.0-17.0 [facility] Comment on above: Order Comment: Speci men Type: ARTERIAL BLOOD SPECIMEN Ordering Facility: [facility] Address: [address] [place] [address] Performed By: #### A LLBG #### [facility] CLIA [id number] [address] [place] [address] [place] Lactate [Moles/Vol] 1.8 mmol/L Normal 0.5-2.2 [facility] Comment on above: Order Comment: Speci men Type: ARTERIAL BLOOD SPECIMEN Ordering Facility: [facility] Address: [address] [place] [address] Performed By: #### A LLBG #### [facility] CLIA [id number] [address] [place] [address] [place] Methemoglobin (Bld) [Mass fraction] 0.6 % Normal 0.0-1.5 [facility] Comment on above: Order Comment: Speci men Type: ARTERIAL BLOOD SPECIMEN Ordering Facility: [facility] Address: [address] [place] [address] Performed By: #### A LLBG #### [facility] CLIA [id number] [address] [place] [address] [place] Oxygen (Bld) [Partial pressure] 168 mm Hg High 85-95 [facility] Comment on above: Order Comment: Speci men Type: ARTERIAL BLOOD SPECIMEN Ordering Facility: [facility] Address: [address] [place] [address] Performed By: #### A LLBG #### [facility] CLIA [id number] [address] [place] [address] Oxygen adjusted to patient's actual temperature (Bld) [Partial pressure] Normal [facility] Comment on above: Order Comment: Speci men Type: ARTERIAL BLOOD SPECIMEN Ordering Facility: [facility] Address: [address] [place] [address] Performed By: #### A LLBG #### [facility] CLIA [id number] [address] [place] [address] [place] Oxyhemoglobin (BldA) [Mass fraction] 97 % Normal 95-98 [facility] Comment on above: Order Comment: Speci men Type: ARTERIAL BLOOD SPECIMEN Ordering Facility: [facility] Address: [address] [place] [address] Performed By: #### A LLBG #### [facility] CLIA [id number] [address] [place] [address] [place] pH (Bld) 7.35 [pH] Normal 7.35-7.45 [facility] Comment on above: Order Comment: Speci men Type: ARTERIAL BLOOD SPECIMEN Ordering Facility: [facility] Address: [address] [place] [address] Performed By: #### A LLBG #### [facility] CLIA [id number] [address] [place] [address] [place] pH adjusted to patient's actual temperature (Bld) Normal [facility] Comment on above: Order Comment: Speci men Type: ARTERIAL BLOOD SPECIMEN Ordering Facility: [facility] Address: [address] [place] [address] Performed By: #### A LLBG #### [facility] CLIA [id number] [address] [place] [address] [place] Potassium [Moles/Vol] 5.9 mmol/L High 3.5-5.0 [facility] Comment on above: Order Comment: Speci men Type: ARTERIAL BLOOD SPECIMEN Ordering Facility: [facility] Address: [address] [place] [address] Performed By: #### A LLBG #### [facility] CLIA [id number] [address] [place] [address] [place] Sodium [Moles/Vol] 135 mmol/L Low 136-144 [facility] Comment on above: Order Comment: Speci men Type: ARTERIAL BLOOD SPECIMEN Ordering Facility: [facility] Address: [address] [place] [address] Performed By: #### A LLBG #### [facility] CLIA [id number] [address] [place] [address] [place] Basic metabolic 2000 panelon 02-27-2025 Anion gap [Moles/Vol] 11 mmol/L Normal 8-15 [facility] Comment on above: Order Comment: Speci men Type: BLOOD SPECIMEN Ordering Facility: [facility] Address: [address] [place] [address] Performed By: #### 2 4321-2 #### [facility] CLIA [id number] [address] [place] [address] [place] Calcium [Mass/Vol] 8.3 mg/dL Low 8.5-10.2 [facility] Comment on above: Order Comment: Speci men Type: BLOOD SPECIMEN Ordering Facility: [facility] Address: [address] [place] [address] Performed By: #### 2 4321-2 #### [facility] CLIA [id number] [address] [place] [address] [place] Chloride [Moles/Vol] 102 mmol/L Normal 98-107 [facility] Comment on above: Order Comment: Speci men Type: BLOOD SPECIMEN Ordering Facility: [facility] Address: [address] [place] [address] Performed By: #### 2 4321-2 #### [facility] CLIA [id number] [address] [place] [address] [place] CO2 [Moles/Vol] 22 mmol/L Normal 22-30 [facility] Comment on above: Order Comment: Speci men Type: BLOOD SPECIMEN Ordering Facility: [facility] Address: [address] [place] [address] Performed By: #### 2 4321-2 #### [facility] CLIA [id number] [address] [place] [address] [place] Creatinine [Mass/Vol] 1.52 mg/dL High 0.73-1.22 [facility] Comment on above: Order Comment: Speci men Type: BLOOD SPECIMEN Ordering Facility: [facility] Address: [address] [place] [address] Performed By: #### 2 4321-2 #### [facility] CLIA [id number] [address] [place] [address] [place] Creatinine and Glomerular filtration rate.predicted panel (S/P/Bld) 50 mL/min/1.73m??? Low >=60 [facility] Comment on above: Order Comment: Speci men Type: BLOOD SPECIMEN Ordering Facility: [facility] Address: [address] [place] [address] Result Comment: Samantha mated Glomerular Filtration Rate (eGFR) is calculated using the 2020 CKD-EPI creatinine equation. This equation utilizes serum creatinine, sex, and age as parameters. The creatinine assay has traceable calibration to isotope dilution-mass spectrometry. Refer to KDIGO guidelines for clinical interpretation. In patients with unstable renal function, e.g. those with acute kidney injury, the eGFR may not accurately reflect actual GFR. Performed By: #### 2 4321-2 #### [facility] CLIA [id number] [place] [address] [place] Glucose [Mass/Vol] 178 mg/dL High 74-99 [facility] Comment on above: Order Comment: Speci men Type: BLOOD SPECIMEN Ordering Facility: [facility] Address: [address] [place] [address] Result Comment: The [place] Diabetes [employer] (ADA) provides guidance for cutoff values for fasting glucose and random glucose. The ADA defines fasting as no caloric intake for at least 8 hours. Fasting plasma glucose results between 100 to 125 mg/dL indicate increased risk for diabetes (prediabetes). Fasting plasma glucose results greater than or equal to 126 mg/dL meet the criteria for diagnosis of diabetes. In the absence of unequivocal hyperglycemia, results should be confirmed by repeat testing. In a patient with classic symptoms of hyperglycemia or hyperglycemic crisis, random plasma glucose results greater than or equal to 200 mg/dL meet the criteria for diagnosis of diabetes. Reference: Standards of Medical Care in Diabetes 2016, [place] [employer] Association. Diabetes Care. 2016.39(Suppl 1). Performed By: #### 2 4321-2 #### [facility] CLIA [id number] [address] [place] [address] [place] Potassium [Moles/Vol] 5.4 mmol/L High 3.7-5.1 [facility] Comment on above: Order Comment: Speci men Type: BLOOD SPECIMEN Ordering Facility: [facility] Address: [address] [place] [address] Performed By: #### 2 4321-2 #### [facility] CLIA [id number] [address] [place] [address] [place] Sodium [Moles/Vol] 135 mmol/L Low 136-144 [facility] Comment on above: Order Comment: Speci men Type: BLOOD SPECIMEN Ordering Facility: [facility] Address: [address] [place] [address] Performed By: #### 2 4321-2 #### [facility] CLIA [id number] [address] [place] [address] [place] Urea nitrogen [Mass/Vol] 27 mg/dL High 9-24 [facility] Comment on above: Order Comment: Speci men Type: BLOOD SPECIMEN Ordering Facility: [facility] Address: [address] [place] [address] Performed By: #### 2 4321-2 #### [facility] CLIA [id number] [address] [place] [address] [place] CBC panel Auto (Bld)on 02-27 Erythrocyte distribution width (RBC) [Ratio] 16.7 % High 11.5-15.0 [facility] Comment on above: Order Comment: Speci men Type: BLOOD SPECIMEN Ordering Facility: [facility] Address: [address] [place] [address] Performed By: #### 5 8410-2 #### [facility] CLIA [id number] [address] [place] [address] [place] Hematocrit (Bld) [Volume fraction] 32.1 % Low 39.0-51.0 [facility] Comment on above: Order Comment: Speci men Type: BLOOD SPECIMEN Ordering Facility: [facility] Address: [address] [place] [address] Performed By: #### 5 8410-2 #### [facility] CLIA [id number] [address] [place] [address] [place] Hemoglobin (Bld) [Mass/Vol] 10.3 g/dL Low 13.0-17.0 [facility] Comment on above: Order Comment: Speci men Type: BLOOD SPECIMEN Ordering Facility: [facility] Address: [address] [place] [address] Performed By: #### 5 8410-2 #### [facility] CLIA [id number] [address] [place] [address] [place] MCH (RBC) [Entitic mass] 24.7 pg Low 26.0-34.0 [facility] Comment on above: Order Comment: Speci men Type: BLOOD SPECIMEN Ordering Facility: [facility] Address: [address] [place] [address] Performed By: #### 5 8410-2 #### [facility] CLIA [id number] [address] [place] [address] [place] MCHC (RBC) [Mass/Vol] 32.1 g/dL Normal 30.5-36.0 [facility] Comment on above: Order Comment: Speci men Type: BLOOD SPECIMEN Ordering Facility: [facility] Address: [address] [place] [address] Performed By: #### 5 8410-2 #### [facility] CLIA [id number] [address] [place] [address] [place] MCV (RBC) [Entitic vol] 77.0 fL Low 80.0-100.0 [facility] Comment on above: Order Comment: Speci men Type: BLOOD SPECIMEN Ordering Facility: [facility] Address: [address] [place] [address] Performed By: #### 5 8410-2 #### [facility] CLIA [id number] [address] [place] [address] [place] Nucleated RBC (Bld) [#/Vol] 10*3/uL Normal <0.01 [facility] Comment on above: Order Comment: Speci men Type: BLOOD SPECIMEN Ordering Facility: [facility] Address: [address] [place] [address] Performed By: #### 5 8410-2 #### [facility] CLIA [id number] [address] [place] [address] [place] Platelet mean volume (Bld) [Entitic vol] 9.0 fL Normal 9.0-12.7 [facility] Comment on above: Order Comment: Speci men Type: BLOOD SPECIMEN Ordering Facility: [facility] Address: [address] [place] [address] Performed By: #### 5 8410-2 #### [facility] CLIA [id number] [address] [place] [address] [place] Platelets (Bld) [#/Vol] 264 10*3/uL Normal 150-400 [facility] Comment on above: Order Comment: Speci men Type: BLOOD SPECIMEN Ordering Facility: [facility] Address: [address] [place] [address] Performed By: #### 5 8410-2 #### [facility] CLIA [id number] [address] [place] [address] [place] RBC (Bld) [#/Vol] 4.17 10*6/uL Low 4.20-6.00 [facility] Comment on above: Order Comment: Speci men Type: BLOOD SPECIMEN Ordering Facility: [facility] Address: [address] [place] [id number] Performed By: #### 5 8410-2 #### [facility] CLIA [id number] [address] [place] [address] [place] WBC (Bld) [#/Vol] 13.92 10*3/uL High 3.70-11.00 [facility] Comment on above: Order Comment: Speci men Type: BLOOD SPECIMEN Ordering Facility: [facility] Address: [address] [place] [id number] Performed By: #### 5 8410-2 #### [facility] CLIA [id number] CNDSon 02-27-2025 [facility] HNO ID: [id number] Author: BING ARVIZU MD Service: Urology Author Type: Nurse Practitioner Type: Discharge Summary Filed: 02/28/2025 13:01 Note Text: Attestation signed by Bing Arvizu MD at 02/28/2025 1:01 PM The above noted history, physical, assessment and plan were reviewed with the provider and critical portions of the HANDP were confirmed. I agree with the plan above and provided direct supervision of the above provider during this patient's care. Bing Arvizu MD DISCHARGE SUMMARY UROLOGY PATIENT NAME: Skyler Le ADMISSION DATE: 02/27/2025 DISCHARGE DATE: 02/28/2025 Attending Physician: Bing Arvizu MD Code Status: Not on file Highest Readmission Risk Score: 2 The 30 day readmissions risk score is derived from an internally validated risk model which evaluates patient level characteristics, utilization history, medication orders and lab results up until the day of discharge. Patients with a score of 39 or above are considered highest risk for readmission. Specific patient level drivers will be listed at the bottom of the summary. Reason for Hospitalization: scheduled surgery Final Diagnosis: left renal cell carcinoma Operations During Hospitalization: 1) left robotic radical nephrectomy [complicated] 2) robotic retroperitoneal lymph node dissection Procedures During Hospitalization: Intubation Hospital Course: Patient was admitted for the above surgery. Patient was transferred to the recovery unit and then to the regular nursing floor. Diet was slowly advanced as tolerated. Activity level was gradually increased. Pain was controlled on oral medications. Catheter removed prior to discharge and patient voiding without difficulty. The patient was seen and examined, then deemed fit for discharge. Transitions of Care Critical Issues: SPECIALIST FOLLOW-UP: Dr. Arvizu LABS AND PROCEDURES PENDING AT DISCHARGE: Pathology Results (will call in 7-10 days with results ) Consulting Teams During Hospitalization: None Treatment Team: Attending Provider: Bing Arvizu MD Patient Condition @ Discharge: Good Discharge Disposition: Home with Relative Information Provided to Patient: Copy was reviewed and provided at discharge ALLERGIES No Known Allergies Discharge Medications: Medication List START taking these medications acetaminophen 325 mg tablet Commonly known as: TylenoL Take 2 tablets by mouth every 6 hours as needed for pain. docusate sodium 100 mg capsule Commonly known as: COLACE Take 1 capsule by mouth two times a day for 14 days. Stop taking if you develop diarrhea or loose stools oxyCODONE IR 5 mg immediate release tablet Commonly known as: ROXICODONE Take 1 tablet by mouth every 6 hours as needed for pain for up to 3 days. CONTINUE taking these medications dutasteride 0.5 mg capsule Commonly known as: AVODART FLUoxetine 10 mg capsule Commonly known as: PROzac metFORMIN 1,000 mg tablet Commonly known as: GLUCOPHAGE metoprolol tartrate (short acting) 100 mg tablet Commonly known as: LOPRESSOR spironolactone 25 mg tablet Commonly known as: ALDACTONE tamsulosin 0.4 mg Commonly known as: FLOMAX STOP taking these medications lisinopril-hydroCHLOROt hiazide 20-12.5 mg per tablet Commonly known as: ZESTORETIC Where to Get Your Medications These medications were sent to [facility] [address] [place] [address] Hours: Monday-Monday: 7am-7pm, Sat: 9am-1pm acetaminophen 325 mg tablet docusate sodium 100 mg capsule oxyCODONE IR 5 mg immediate release tablet Plan of Care: Plan of care discussed with Provider, RN, Patient Future Appointments: No future appointments. The patient's risk for 30-day readmission is determined using the following contributing factors: Predictive Model Details 2% (Low) Factor Value Calculated 02/27/2025 06:21 -165% Hospital Unit [facility] OPERATING ROOM [facility] READMISSION RISK Model -19% Admissions (365d) 0 -12% Admissions (90d) 0 -11% ED visits (365d) 0 8% Length of Stay (d) 0 -7% [facility] -6% Admissions (60d) 0 -6% Observations (365d) 0 6% Admission Provider Speciality UROLOGY 5% Memo Scale N/A I have performed the navw-fl-bsui and relevant services for a total of >30 minutes. SIGNATURE: Tamanna Zhu APRN.CNP DATE: February 27, 2025 TIME: 12:52 PM Normal [facility] NURSING PROGon 02-27-2025 NURSING PROG HNO ID: [id number] Author: LATRICE HATHAWAY RN Service: Nursing Author Type: Registered Nurse Type: Nursing Progress Note Filed: 02/27/2025 18:39 Note Text: Transfer Note: PATIENT NAME: Skyler Le Patient Location: [place] [address]/BD5M-[id number] Room: [place] [address] Patient transferred into room/unit PK312 in stable condition.Cl6020. Actions taken: Oriented to unit,care and orders. murguia draining clear;yellow urine. IVF infusing patient stated had allergy to flomax. Had dizziness and back pain. Messaged added allergy. flomax not given Normal [facility] OPERATIVE NOon 02-27-2025 OPERATIVE NO HNO ID: [id number] Author: BING ARVIZU MD Service: Urology Author Type: Physician Type: Operative Report Filed: 02/27/2025 12:01 Note Text: OPERATIVE/PROCEDURE REPORT LOG ID: [id number] Surgery/Procedure Date: 02/27/2025 Incision/Procedure Start Time: 8:27 AM Incision Close/Procedure End Time: 12:20 PM Surgeon(s)/Proceduralis t(s) and Ice Cream Van Vendor(s): Surgeons and Role: * Bing Arvizu MD - Primary * Dallas Bullard MD - Resident - Assisting Physician Ice Cream Van Vendor: Yovany Fountain PA-C Procedure(s): 1) left robotic radical nephrectomy [complicated] 2) robotic retroperitoneal lymph node dissection Anesthesia: General Indications: 65 year old male with history of left renal neoplasm suspicious for renal cell carcinoma. 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 Also had a suspicious lymph node in the perihilar area. After discussion of risks, benefits, complications, and alternatives, patient elected to proceed with left robotic radical nephrectomy and retroperitoneal lymph node dissection. Operative Findings: Enormous kidney and perinephric fat. Tumor may have enlarged in size. There was a small hematoma subcapsular likely related to the recent biopsy. The size of the kidney increase the complexity of the case and added over 1 hour to the surgical time. Bulky suspicious perihilar lymph nodes were excised. Excellent hemostasis the conclusion the case. No other unusual findings. Procedure Details: Patient was brought to the operating room, and multidisciplinary surgical huddle confirmed the correct patient, operative plan, perioperative antibiotics, pertinent medical history, drug allergies, and necessary equipment. General anesthesia was induced and perioperative antibiotics Ancef 2 g IV were administered. Patient was placed in right lateral decubitus position with the left side up, prepped, and draped in the usual sterile fashion. We gained access to the abdomen for CO2 insufflation with a Veress needle of the lateral border of the rectus muscle in line with the 11th rib. After access was obtained, the 12-mm port was inserted and the camera was inserted. No adhesions were noted. An 8-mm port was placed in the usual spot as well as an 8-mm port medial to the anterior superior iliac spine to perform this. An additional robot port was placed laterally to allow retraction during the case. We then placed a 12-mm personal care assistant port. The robot was then docked, and the colon was dropped off the lateral wall. The plane was found between the mesentery and Gerota's fascia. The ureter was identified and we were able to follow this up to the renal vein. Dissection was carried to the hilum and both the renal artery and vein were exposed. We then identified the adrenal gland and due to the high-grade nature of the tumor we decided to excise the adrenal gland with the kidney and mass. Once the renal hilum was well-defined we fired an Endo stapler, white load. There was excellent hemostasis and occlusion of the renal hilum. We then turned our attention to the perihilar lymph nodes. These were prominent. We used the vessel sealer to excise lymph nodes along the periaortic area from the renal artery inferiorly for a total of 5 cm. All lymphatics and blood vessels were controlled with the vessel sealer. We then released upper pole attachments and entered the avascular plane outside of the perinephric fat. We then identified the gonadal vein and ureter inferiorly and doubly clipped and transected both. We then entered the avascular plane laterally and mobilized the kidney off of the lateral abdominal wall. We then freed up all remaining attachments and although we try to place in an Endo Catch bag the specimen was too large to fit in our largest Endo Catch bag. We did however place the perihilar lymph nodes in the Endo Catch bag. We then proceeded to ensure excellent hemostasis with bipolar electrocautery or clips as needed. The robot was undocked. The 12-mm personal care assistant port was decided to be our extraction site. The personal care assistant port was then extended and the specimen containing the kidney and mass were extracted. Extraction incision was closed with 2 0 PDS sutures. The remainder of the skin incisions were irrigated out and closed subcuticularly using 4-0 Vicryl suture. Dressings were applied. The patient was awoken from anesthesia and taken to PACU in stable condition. The patient was awakened from anesthesia, extubated in the operating room, and taken to the recovery room in stable condition. Pre-Op/Pre-Procedure Diagnosis: Left renal cell carcinoma Post-Op/Post-Procedure Diagnosis: Same Estimated Blood Loss: 100 cc Specimens: Left kidney and renal cell carcinoma, retroperitoneal lymph nodes Implantable Devices: None Drains: 16 Bahamian Murguia catheter Complications: None Accidental Punctures/Lacerations: None SURGEON: MD MASON Tinoco (more content not included)... [facility] TYPE + SCREENon 02-27-2025 ABO O [facility] Comment on above: Order Comment: Speci men Type: BLOOD SPECIMENOrdering Facility: [facility] Address: [address] [place] [address] Performed By: #### T SCR ####[facility] [id number] [place] [id number] Rh Nom (Bld) Positive [facility] Comment on above: Order Comment: Speci men Type: BLOOD SPECIMENOrdering Facility: [facility] Address: [address] [place] [address] Performed By: #### T SCR ####[facility] [id number] [place] [id number] TYPE AND SCREEN EXPIRATION 03/02/2025 23:59 [facility] Comment on above: Order Comment: Speci men Type: BLOOD SPECIMENOrdering Facility: [facility] Address: [address] [place] [address] Performed By: #### T SCR ####[facility] BANKCLIA [id number] [place] [id number] [facility] DEE[facility] Telephone (JOVI) SKYLER LE ([id number]) 1960 M Date Time Provider Department 02/10/25 ROB ROMERO During your visit today, we recorded the following information about you: Rob Romero APRN.TYPO MACHINE OPERATOR 02/10/2025 9:37 AM Signed I have ordered two Venofer Infusions for patient . [facility] location for this patient [facility] to have these completed. Annalee Oro, RN 02/14/2025 2:49 PM Addendum I called [facility] this am at 10 am. RN notified of Venofer order. States will speak to pharmacist and nurse manager forms and arrange patient to get Venofer Infusion.[phone] Mehul notified. Allergies As of Date: 02/10/2025 (No Known Allergies) Date Reviewed: 02/07/2025 Reviewed by: Elisa Fontanez LPN - Fully Assessed Reason for Visit: Patient Update [1234] Prescriptions as of 02/14/2025 - dutasteride (AVODART) 0.5 mg capsule Take 0.5 mg by mouth once daily. - tamsulosin (FLOMAX) 0.4 mg Take 1 capsule by mouth every 12 hours. - spironolactone (ALDACTONE) 25 mg tablet Take 25 mg by mouth two times a day. - metoprolol succinate ER (TOPROL XL) 100 mg Take 100 mg by mouth once daily. - metFORMIN (GLUCOPHAGE) 1,000 mg tablet Take 500 mg by mouth two times a day. - lisinopril-hydroCHLOROt hiazide (ZESTORETIC) 20-12.5 mg per tablet Take 1 tablet by mouth once daily. - FLUoxetine (PROZAC) 10 mg capsule Take 10 mg by mouth once daily. Problem List As Of Date 02/10/2025 Noted Resolved BPH with obstruction/lower urinary tract sympto*02/07/2025 Depression [F32.A] 02/07/2025 Type 2 diabetes mellitus without complications *02/07/2025 Hypertension [I10] 02/07/2025 ROSA M (obstructive sleep apnea) [G47.33] 02/07/2025 Class 2 obesity due to excess calories without *02/07/2025 Iron deficiency anemia, unspecified [D50.9] 02/10/2025 Intestinal malabsorption (HCC) [K90.9] 02/10/2025 Encounter Status:Closed by ROB ROMERO on [facility]10/25 [facility] ([id number]) 1960 M Date Time Provider Department 02/10/25 ROB ROMERO During your visit today, we recorded the following information about you: Allergies As of Date: 02/10/2025 (No Known Allergies) Date Reviewed: 02/07/2025 Reviewed by: Elisa Fontanez LPN - Fully Assessed Reason for Visit: Results [95] Prescriptions as of 02/10/2025 - dutasteride (AVODART) 0.5 mg capsule Take 0.5 mg by mouth once daily. - tamsulosin (FLOMAX) 0.4 mg Take 1 capsule by mouth every 12 hours. - spironolactone (ALDACTONE) 25 mg tablet Take 25 mg by mouth two times a day. - metoprolol succinate ER (TOPROL XL) 100 mg Take 100 mg by mouth once daily. - metFORMIN (GLUCOPHAGE) 1,000 mg tablet Take 500 mg by mouth two times a day. - lisinopril-hydroCHLOROt hiazide (ZESTORETIC) 20-12.5 mg per tablet Take 1 tablet by mouth once daily. - FLUoxetine (PROZAC) 10 mg capsule Take 10 mg by mouth once daily. Problem List As Of Date 02/10/2025 Noted Resolved BPH with obstruction/lower urinary tract sympto*02/07/2025 Depression [F32.A] 02/07/2025 Type 2 diabetes mellitus without complications *02/07/2025 Hypertension [I10] 02/07/2025 ROSA M (obstructive sleep apnea) [G47.33] 02/07/2025 Class 2 obesity due to excess calories without *02/07/2025 Encounter Status:Closed by ROB ROMERO on 02/10/[address] [facility] 02-07-2025 ECG COMPLETE Ventricular Rate : 5 1 BPM Atrial Rate : 51 BPM P-R Interval : 136 ms QRS Duration : 86 ms Q-T Interval : 452 ms QTC Calculation(Bazett) : 416 ms Calculated P [place] : 50 degrees Calculated R [place] : 44 degrees Calculated T [place] : 55 degrees SINUS BRADYCARDIA OTHERWISE NORMAL ECG Confirmed by FRANC SHIPMAN MD ([id number]) on 02/26/2025 3:20:12 PM NAME : SKYLER LE PID : [id number] : 1960 Gender : Male Race : ORD : [id number] Procedure Date : Feb 07 2025 13:03:37 Edit Date : Feb 26 2025 15:20:17 Diagnosis: SINUS BRADYCARDIA OTHERWISE NORMAL ECG Confirmed by FRANC SHIPMAN MD ([id number]) on 02/26/2025 3:20:12 PM Test Reason : Z01.818 Pre-op evaluation Location : 145 : [place] Overread By : FRANC SHIPMAN MD Edited By : FRANC SHIPMAN MD Referred By : BING ARVIZU Acquired by : August gonzalez [facility] Ferritin SerPl-mCncon 2024 Ferritin [Mass/Vol] 131.0 ng/mL Normal 30.3-565.[address] [facility] Comment on above: Order Comment: Speci men Type: BLOOD SPECIMEN [facility] Facility[facility] Address: [address] [place] [address] Performed By: #### C ONABO #### [facility] [id number] [address] [place] [address] [place] HISTORY PHYSICALon HISTORY PHYSICAL HNO ID: [id number] Author: ROB ROMERO APRN.CNP Service: ? Author Type: Nurse Practitioner Type: H&P Filed: 02/17/2025 08:06 Note Text: [facility] HISTORY AND PHYSICAL EXAMINATION SERVICE DATE: 02/07/2025 SERVICE TIME: 2:02 PM PRIMARY CARE PHYSICIAN: Jessica Davalos CNP, CNP REASON FOR VISIT: Skyler Le is a 65 year old male who is scheduled for Left - ROBOTIC LAPAROSCOPIC NEPHRECTOMY PARTIAL at the request of Dr. Bing Arvizu for consultation. My final recommendation will be communicated back to the requesting physician by way of shared medical record or letter. Assessment Patient has the following medical conditions which may affect charanjit-operative course: Depression Assessment: stable on medication Denies any suicidal ideation Type 2 diabetes mellitus without complications (HCC) Assessment: stable on oral medication To get updated labs BPH with obstruction/lower urinary tract symptoms Assessment: SEE HPI On medication Hypertension Assessment: Stable on medication Today BP: 144/72 To take medication morning of surgery Does not complain of any chest pain, shortness of breath, lower extremity edema, or palpitations ROSA M (obstructive sleep apnea) Assessment: compliant with CPAP I - PHYSICAL EVALUATION AIRWAY Patient intubated: No. Tracheostomy tube not present Mallampati: IV. TM distance: >3 FB. Neck ROM: full ROM without neurological symptoms. Mouth opening: adequate. Short neck: yes. Thick neck: yes Taylor present: no Lip Bite Test: II Microretrognathia/Micro nagthia/Recessed Chin: No DENTAL Dental findings: teeth intact. II - ANESTHESIA PLAN Anesthetic plan additional comments: *PACC/TCI - anesthesia choice. Beta Robles Monitoring Plan Post Procedure Analgesic Plan ANESTHESIA FINDINGS: Intubation History: No prior intubation Significant Anesthesia Considerations: none Airway History: No prior intubation Ku Activity Status Index: METS: Walk indoors, such as around the house (1.75 METs) Do light work around the house, such as dusting or washing dishes (2.70 METs) Take care of self; that is eating, dressing, bathing, using the toilet (2.75 METs) Walk a block or two on level ground (2.75 METs) Do moderate work around the house, such as vacuuming, sweeping floors, or carrying in groceries (3.50 METs) Do yardwork, such as raking leaves, weeding, or pushing a power mower (4.50 METs) Climb a flight of stairs or walk up a hill (5.50 METs) DASI Score: 23.45 Patient denies any chest pain or undue shortness of breath with the above physical activity. Clinical Frailty Scale: 3. Well, with treated comorbid disease STOP-Bang Score: STOP-Bang Score: 0 (ROSA M compliant with CPAP ) [id number] Score: Age: 65-74 Sex: male CHF history: No Hypertension history: Yes Stroke/TIA/thromboembol ism history: No Vascular disease history: No Diabetes history: Yes [id number] Score: 3 ARISCAT Score: Age: 51-80 Preoperative SpO2: >=96% Respiratory infection in the last month: No Preoperative anemia: No Surgical incision: upper abdominal Duration of surgery: >3 hrs Emergency procedure: No ARISCAT Score: 41 Prepared for surgery: This patient is optimally prepared for surgery 02/10/2025 Ordered two doses or Venofer infusions scheduled 02/17 and 02/19 CONSULTS: Patient does not require consults for optimization at this time. The Following Tests/Procedures Have Been Initiated: Orders Placed This Encounter Iron and TIBC Standing Status: Future Expected Date: 02/07/2025 Expiration Date: 05/09/2025 Ferritin Standing Status: Future Expected Date: 02/07/2025 Expiration Date: 05/09/2025 Hemoglobin A1C Standing Status: Future Expected Date: 02/07/2025 Expiration Date: 05/09/2025 dutasteride (AVODART) 0.5 mg capsule Sig: Take 0.5 mg by mouth once daily. tamsulosin (FLOMAX) 0.4 mg Sig: Take 1 capsule by mouth every 12 hours. spironolactone (ALDACTONE) 25 mg tablet Sig: Take 25 mg by mouth two times a day. metoprolol succinate ER (TOPROL XL) 100 mg Sig: Take 100 mg by mouth once daily. metFORMIN (GLUCOPHAGE) 1,000 mg tablet Sig: Take 500 mg by mouth two times a day. lisinopril-hydroCHLOROt hiazide (ZESTORETIC) 20-12.5 mg per tablet Sig: Take 1 tablet by mouth once daily. FLUoxetine (PROZAC) 10 mg capsule Sig: Take 10 mg by mouth once daily. ECG (IN OFFICE) Planned Anesthetic: Per anesthesia choice Subjective CHIEF COMPLAINT: Neoplasm of left kidney HPI: 64 year old male with a hx of BPH w/ LUTS presenting for evaluation of a renal mass seen on CT A/P on 12/14/2024. The patient reports that a renal tumor was discovered following an episode of hematuria. Initial evaluation included a cystoscopy and urine cytology, which were negative for malignant cells. Subsequent CT imaging revealed a renal tumor REVIEW OF SYST (more content not included)... Normal [facility] HbA1c (Bld)on 02-07-2025 Average glucose Estimated from glycated hemoglobin (Bld) [Mass/Vol] 108 mg/dL Normal [facility] Comment on above: Order Comment: Speci men Type: BLOOD SPECIMEN [facility]: [facility] Address: [address] [place] [address] Result Comment: eAG: (Estimated average glucose) is a calculated value from HgbA1c and is access service representative of the average blood glucose level in the last 2-3 month period. Performed By: #### 5 5454-3 #### [facility] CLIA [id number] [address] [place] [address] [place] HbA1c (Bld) [Mass fraction] 5.4 % Normal 4.3-5.[address] [facility] Comment on above: Order Comment: Speci men Type: BLOOD SPECIMEN Ordering Facility: [facility] Address: [address] [place] [address] Result Comment: Amer [place] Diabetes Association guidelines indicate that patients with HgbA1c in the range 5.7-6.4% are at increased risk for development of diabetes, and intervention by lifestyle modification may be beneficial. HgbA1c greater or equal to 6.5% is considered diagnostic of diabetes. Performed By: #### 5 5454-3 #### [facility] CLIA [id number] [address] [place] [address] [place] Iron and Iron binding capaci ty panelon 02-07-2025 Iron [Mass/Vol] 23 ug/dL Low 41-[address] [facility] Comment on above: Order Comment: Speci men Type: BLOOD SPECIMEN Ordering Facility: [facility] Address: [address] [place] [address] Performed By: #### C ONABO #### [facility] CLIA [id number] [address] [place] [address] [place] Iron binding capacity [Mass/Vol] 247 ug/dL Normal 232-[address] [facility] Comment on above: Order Comment: Speci men Type: BLOOD SPECIMEN [facility]ing Facility: [facility] Address: [address] [place] [address] Performed By: #### C ONABO #### [facility] CLIA [id number] [address] [place], [place] [id number] [place] Iron/TIBC [Molar ratio] 9.3 % Low 15.0-57.[address] [facility] Comment on above: Order Comment: Speci men Type: BLOOD SPECIMEN [facility]ing Facility: [facility] Address: [address] [place] [address] Performed By: #### C ONABO #### [facility] CLIA [id number] [address] [place] [address] [place] BRIEF OP NOTon 01-24-2025 BRIEF OP NOT HNO ID: [id number] Author: YOVANY ESTRADA DO Service: Radiology Author Type: Physician Type: Brief Op Note Filed: 01/24/2025 11:55 Note Text: BRIEF OPERATIVE / PROCEDURE NOTE LOG ID: [id number] SURGERY/PROCEDURE DATE: 01/24/2025 INCISION/PROCEDURE START TIME: 11:39 AM INCISION CLOSE/PROCEDURE END TIME: 11:52 AM SURGEON(S)/PROCEDURALIS T(S) AND COAL HAULER OPERATOR(S): Surgeons and Role: * Yovany Estrada, - Primary No Additional Staff SURGERY/PROCEDURE(S): US guided left renal mass biopsy with moderate sedation. ANESTHESIA: Procedural Sedation FINDINGS: Hypoechoic, solid appearing left lower pole renal mass, correlating with prior imaging. ESTIMATED BLOOD LOSS: Minimal. SPECIMENS: 4-18G cores placed in formalin and sent to surgical pathology. COMPLICATIONS: None PRE-OP/PRE-PROCEDURE DIAGNOSIS: Left renal mass POST-OP/POST-PROCEDURE DIAGNOSIS: Same as Preop SIGNATURE: Yovany Estrada DO PATIENT NAME: Skyler Le DATE: January 24, 2025 TIME: 11:[address] [facility] Bacteria Ur Culton Bacteria identified Cx Nom (U) ORGANISM ID: 1 <10,000 CFU/ml Normal urogenital rudy Normal [facility] Comment on above: Performed By: #### 6 6121-5 #### [facility] CLIA [id number] [address] [place] [address] [place] CBC W Auto Differential pane l (Bld)on 01-24-2025 Basophils (Bld) [#/Vol] 0.07 10*3/uL Normal <0.[address] [facility] Comment on above: Order Comment: Speci men Type: TISSUE SPECIMEN Ordering Facility: [facility] Address: [address] [place] [address] Performed By: #### 6 6121-5 #### [facility] CLIA [id number] [address] [place] [address] [place] Basophils/100 WBC (Bld) 0.5 % Normal [facility] Comment on above: Order Comment: Speci men Type: TISSUE SPECIMEN Ordering Facility: [facility] Address: [address] [place] [address] Performed By: #### 6 6121-5 #### [facility] CLIA [id number] [address] [place] [address] [place] Differential cell count method Nom (Bld) Auto Normal [facility] Comment on above: Order Comment: Speci men Type: TISSUE SPECIMEN Ordering Facility: [facility] Address: [address] [place] [address] Performed By: #### 6 6121-5 #### [facility] CLIA [id number] [address] [place] [address] [place] Eosinophils (Bld) [#/Vol] 0.09 10*3/uL Normal <0.[address] [facility] Comment on above: Order Comment: Speci men Type: TISSUE SPECIMEN Ordering Facility: [facility] Address: [address] [place] [address] Performed By: #### 6 6121-5 #### [facility] CLIA [id number] [address] [place] [address] [place] Eosinophils/100 WBC (Bld) 0.7 % Normal [facility] Comment on above: Order Comment: Speci men Type: TISSUE SPECIMEN Ordering Facility: [facility] Address: [address] [place] [address] Performed By: #### 6 6121-5 #### [facility] CLIA [id number] [address] [place] [address] [place] Erythrocyte distribution width (RBC) [Ratio] 15.0 % Normal 11.5-15.[address] [facility] Comment on above: Order Comment: Speci men Type: TISSUE SPECIMEN Ordering Facility: [facility] Address: [address] [place] [address] Performed By: #### 6 6121-5 #### [facility] CLIA [id number] [address] [place] [address] [place] Hematocrit (Bld) [Volume fraction] 35.9 % Low 39.0-51.[address] [facility] Comment on above: Order Comment: Speci men Type: TISSUE SPECIMEN Ordering Facility: [facility] Address: [address] [place] [address] Performed By: #### 6 6121-5 #### [facility] CLIA [id number] [address] [place] [address] [place] Hemoglobin (Bld) [Mass/Vol] 11.1 g/dL Low 13.0-17.[address] [facility] Comment on above: Order Comment: Speci men Type: TISSUE SPECIMEN Ordering Facility: [facility] Address: [address] [place] [address] Performed By: #### 6 6121-5 #### [facility] CLIA [id number] [address] [place] [address] [place] Immature granulocytes (Bld) [#/Vol] 0.09 10*3/uL Normal <0.[address] [facility] Comment on above: Order Comment: Speci men Type: TISSUE SPECIMEN Ordering Facility: [facility] Address: [address] [place] [address] Performed By: #### 6 6121-5 #### [facility] CLIA [id number] [address] [place] [address] [place] Immature granulocytes/100 WBC (Bld) 0.7 % Normal [facility] Comment on above: Order Comment: Speci men Type: TISSUE SPECIMEN Ordering Facility: [facility] Address: [address] [place] [address] Performed By: #### 6 6121-5 #### [facility] CLIA [id number] [address] [place] [address] [place] Lymphocytes (Bld) [#/Vol] 1.32 10*3/uL Normal 1.00-4.[address] [facility] Comment on above: Order Comment: Speci men Type: TISSUE SPECIMEN Ordering Facility: [facility] Address: [address] [place] [address] Performed By: #### 6 6121-5 #### [facility] CLIA [id number] [address] [place] [address] [place] Lymphocytes/100 WBC (Bld) 10.3 % Normal [facility] Comment on above: Order Comment: Speci men Type: TISSUE SPECIMEN Ordering Facility: [facility] Address: [address] [place] [address] Performed By: #### 6 6121-5 #### [facility] CLIA [id number] [address] [place] [address] [place] MCH (RBC) [Entitic mass] 24.5 pg Low 26.0-34.[address] [facility] Comment on above: Order Comment: Speci men Type: TISSUE SPECIMEN Ordering Facility: [facility] Address: [address] [place] [address] Performed By: #### 6 6121-5 #### [facility] CLIA [id number] [address] [place] [address] [place] MCHC (RBC) [Mass/Vol] 30.9 g/dL Normal 30.5-36.[address] [facility] Comment on above: Order Comment: Speci men Type: TISSUE SPECIMEN Ordering Facility: [facility] Address: [address] [place] [address] Performed By: #### 6 6121-5 #### [facility] CLIA [id number] [address] [place] [address] [place] MCV (RBC) [Entitic vol] 79.2 fL Low 80.0-100.[address] [facility] Comment on above: Order Comment: Speci men Type: TISSUE SPECIMEN Ordering Facility: [facility] Address: [address] [place] [address] Performed By: #### 6 6121-5 #### [facility] CLIA [id number] [address] [place] [address] [place] Monocytes (Bld) [#/Vol] 1.09 10*3/uL High <0.[address] [facility] Comment on above: Order Comment: Speci men Type: TISSUE SPECIMEN Ordering Facility: [facility] Address: [address] [place] [address] Performed By: #### 6 6121-5 #### [facility] CLIA [id number] [address] [place] [address] [place] Monocytes/100 WBC (Bld) 8.5 % Normal [facility] Comment on above: Order Comment: Speci men Type: TISSUE SPECIMEN Ordering Facility: [facility] Address: [address] [place] [address] Performed By: #### 6 6121-5 #### [facility] CLIA [id number] [address] [place] [address] [place] Neutrophils (Bld) [#/Vol] 10.14 10*3/uL High 1.45-7.[address] [facility] Comment on above: Order Comment: Speci men Type: TISSUE SPECIMEN Ordering Facility: [facility] Address: [address] [place] [address] Performed By: #### 6 6121-5 #### [facility] CLIA [id number] [address] [place] [address] [place] Neutrophils/100 WBC (Bld) 79.3 % Normal [facility] Comment on above: Order Comment: Speci men Type: TISSUE SPECIMEN Ordering Facility: [facility] Address: [address] [place] [address] Performed By: #### 6 6121-5 #### [facility] CLIA [id number] [address] [place] [address] [place] Nucleated RBC (Bld) [#/Vol] 10*3/uL Normal <0.[address] [facility] Comment on above: Order Comment: Speci men Type: TISSUE SPECIMEN Ordering Facility: [facility] Address: [address] [place] [address] Performed By: #### 6 6121-5 #### [facility] CLIA [id number] [address] [place] [address] [place] Nucleated RBC/100 WBC (Bld) [Ratio] 0.0 /[address] [facility] Comment on above: Order Comment: Speci men Type: TISSUE SPECIMEN Ordering Facility: [facility] Address: [address] [place] [address] Performed By: #### 6 6121-5 #### [facility] CLIA [id number] [address] [place] [address] [place] Platelet mean volume (Bld) [Entitic vol] 9.7 fL Normal 9.0-12.[address] [facility] Comment on above: Order Comment: Speci men Type: TISSUE SPECIMEN Ordering Facility: [facility] Address: [address] [place] [address] Performed By: #### 6 6121-5 #### [facility] CLIA [id number] [address] [place] [address] [place] Platelets (Bld) [#/Vol] 310 10*3/uL Normal 150-[address] [facility] Comment on above: Order Comment: Speci men Type: TISSUE SPECIMEN Ordering Facility: [facility] Address: [address] [place] [address] Performed By: #### 6 6121-5 #### [facility] CLIA [id number] [address] [place] [address] [place] RBC (Bld) [#/Vol] 4.53 10*6/uL Normal 4.20-6.00 [facility] Comment on above: Order Comment: Speci men Type: TISSUE SPECIMEN Ordering Facility: [facility] Address: [address] [place] [address] Performed By: #### 6 6121-5 #### [facility] CLIA [id number] [address] [place] [address] [place] WBC (Bld) [#/Vol] 12.80 10*3/uL High 3.70-11.00 [facility] Comment on above: Order Comment: Speci men Type: TISSUE SPECIMEN Ordering Facility: [facility] Address: [address] [place] [address] Performed By: #### 6 6121-5 #### [facility] CLIA [id number] [address] [place] [address] [place] CONFIRM BLOOD TYPEon 25-2 025 ABO O Normal [facility] Comment on above: Order Comment: Speci men Type: BLOOD SPECIMEN Ordering Facility: [facility] Address: [address] [place] [address] Performed By: #### C ONABO #### [facility] CLIA [id number] [address] [place] [address] [place] Rh Nom (Bld) Positive Normal [facility] Comment on above: Order Comment: Speci men Type: BLOOD SPECIMEN Ordering Facility: [facility] Address: [address] [place] [address] Performed By: #### C ONABO #### [facility] CLIA [id number] [address] [place] [address] [place] Comprehensive metabolic 2000 panelon 01-24-2025 Albumin [Mass/Vol] 3.8 g/dL Low 3.9-4.9 [facility] Comment on above: Order Comment: Speci men Type: TISSUE SPECIMEN Ordering Facility: [facility] Address: [address] [place] [address] Performed By: #### 6 6121-5 #### [facility] CLIA [id number] [address] [place] [address] [place] ALP [Catalytic activity/Vol] 66 U/L Normal 38-[address] [facility] Comment on above: Order Comment: Speci men Type: TISSUE SPECIMEN Ordering Facility: [facility] Address: [address] [place] [address] Performed By: #### 6 6121-5 #### [facility] CLIA [id number] [address] [place] [address] [place] ALT [Catalytic activity/Vol] 8 U/L Low 10-[address] [facility] Comment on above: Order Comment: Speci men Type: TISSUE SPECIMEN Ordering Facility: [facility] Address: [address] [place] [address] Performed By: #### 6 6121-5 #### [facility] CLIA [id number] [address] [place] [address] [place] Anion gap [Moles/Vol] 11 mmol/L Normal 8-[address] [facility] Comment on above: Order Comment: Speci men Type: TISSUE SPECIMEN Ordering Facility: [facility] Address: [address] [place] [address] Performed By: #### 6 6121-5 #### [facility] CLIA [id number] [address] [place] [address] [place] AST [Catalytic activity/Vol] 12 U/L Low 14-[address] [facility] Comment on above: Order Comment: Speci men Type: TISSUE SPECIMEN Ordering Facility: [facility] Address: [address] [place] [address] Performed By: #### 6 6121-5 #### [facility] CLIA [id number] [address] [place] [address] [place] Bilirubin [Mass/Vol] 0.4 mg/dL Normal 0.2-1.3 [facility] Comment on above: Order Comment: Speci men Type: TISSUE SPECIMEN Ordering Facility: [facility] Address: [address] [place] [address] Performed By: #### 6 6121-5 #### [facility] CLIA [id number] [address] [place] [address] [place] Calcium [Mass/Vol] 9.2 mg/dL Normal 8.5-10.2 [facility] Comment on above: Order Comment: Speci men Type: TISSUE SPECIMEN Ordering Facility: [facility] Address: [address] [place] [address] Performed By: #### 6 6121-5 #### [facility] CLIA [id number] [address] [place] [address] [place] Chloride [Moles/Vol] 98 mmol/L Normal 98-107 [facility] Comment on above: Order Comment: Speci men Type: TISSUE SPECIMEN Ordering Facility: [facility] Address: [address] [place] [address] Performed By: #### 6 6121-5 #### [facility] CLIA [id number] [address] [place] [address] [place] CO2 [Moles/Vol] 28 mmol/L Normal 22-[address] [facility] Comment on above: Order Comment: Speci men Type: TISSUE SPECIMEN Ordering Facility: [facility] Address: [address] [place], [place] [address] Performed By: #### 6 6121-5 #### [facility] CLIA [id number] [address] [place] [address] [place] Creatinine [Mass/Vol] 1.44 mg/dL High 0.73-1.[address] [facility] Comment on above: Order Comment: Miguelina thomas Type: TISSUE SPECIMEN Ordering Facility: [facility] Address: [address] [place] [address] Performed By: #### 6 6121-5 #### [facility] CLIA [id number] [address] [place] [address] [place] Creatinine and Glomerular filtration rate.predicted panel (S/P/Bld) 54 mL/min/1.73m??? Low >=[address] [facility] Comment on above: Order Comment: Miguelina thomas Type: TISSUE SPECIMEN Ordering Facility: [facility] Address: [address] [place] [address] Result Comment: Samantha mated Glomerular Filtration Rate (eGFR) is calculated using the 2020 CKD-EPI creatinine equation. This equation utilizes serum creatinine, sex, and age as parameters. The creatinine assay has traceable calibration to isotope dilution-mass spectrometry. Refer to KDIGO guidelines for clinical interpretation. In patients with unstable renal function, e.g. those with acute kidney injury, the eGFR may not accurately reflect actual GFR. Performed By: #### 6 6121-5 #### [facility] CLIA [id number] [address] [place] [address] [place] Glucose [Mass/Vol] 112 mg/dL High 74-99 [facility] Comment on above: Order Comment: Miguelina thomas Type: TISSUE SPECIMEN Ordering Facility: [facility] Address: [address] [place] [address] Result Comment: The [place] Diabetes [employer] (ADA) provides guidance for cutoff values for fasting glucose and random glucose. The ADA defines fasting as no caloric intake for at least 8 hours. Fasting plasma glucose results between 100 to 125 mg/dL indicate increased risk for diabetes (prediabetes). Fasting plasma glucose results greater than or equal to 126 mg/dL meet the criteria for diagnosis of diabetes. In the absence of unequivocal hyperglycemia, results should be confirmed by repeat testing. In a patient with classic symptoms of hyperglycemia or hyperglycemic crisis, random plasma glucose results greater than or equal to 200 mg/dL meet the criteria for diagnosis of diabetes. Reference: Standards of Medical Care in Diabetes 2016, [place] [employer] Association. Diabetes Care. 2016.39(Suppl 1). Performed By: #### 6 6121-5 #### [facility] CLIA [id number] [address] [place] [address] [place] Potassium [Moles/Vol] 4.5 mmol/L Normal 3.7-5.[address] [facility] Comment on above: Order Comment: Speci men Type: TISSUE SPECIMEN Ordering Facility: [facility] Address: [address] [place] [address] Performed By: #### 6 6121-5 #### [facility] CLIA [id number] [address] [place] [address] [place] Protein [Mass/Vol] 7.6 g/dL Normal 6.3-8.0 [facility] Comment on above: Order Comment: Speci men Type: TISSUE SPECIMEN Ordering Facility: [facility] Address: [address] [place] [address] Performed By: #### 6 6121-5 #### [facility] CLIA [id number] [address] [place] [address] [place] Sodium [Moles/Vol] 137 mmol/L Normal 136-144 [facility] Comment on above: Order Comment: Speci men Type: TISSUE SPECIMEN Ordering Facility: [facility] Address: [address] [place] [address] Performed By: #### 6 6121-5 #### [facility] CLIA [id number] [address] [place] [address] [place] Urea nitrogen [Mass/Vol] 24 mg/dL Normal 9-[address] [facility] Comment on above: Order Comment: Speci men Type: TISSUE SPECIMEN Ordering Facility: [facility] Address: [address] [place], [place] [address] Performed By: #### 6 6121-5 #### [facility] CLIA [id number] [address] [place] [address] [place] HISTORY PHYSICALon HISTORY PHYSICAL HNO ID: [id number] Author: YOVANY ESTRADA DO Service: Radiology Author Type: Resident Type: H&P Filed: 01/24/2025 10:38 Note Text: Attestation signed by Yovany Estrada DO at 01/24/2025 10:38 AM Radiology Attending Note I evaluated the patient and personally participated in the amaya components. I agree with the resident's findings and plan as documented and have discussed the case and management of the patient's care with the resident. Left lower pole renal mass on recent prior imaging. Planning imaging guided targeted left renal mass biopsy. Signature: Yovany Estrada DO Date: 01/24/2025 Time: 10:37 AM RADIOLOGY PROCEDURAL SEDATION HISTORY AND PHYSICAL EXAM SERVICE DATE: 01/24/2025 SERVICE TIME: 9:43 AM Subjective HPI: This is a 65 year old male who presents with left renal mass here for image guided biopsy with moderate sedation. PROCEDURE SCHEDULED: Procedure(s) with comments: BIOPSY KIDNEY PERCUTANEOUS (N/A) - KIDNEY BIOPSY RADIOLOGY ORDER PLACED: Radiology (1440h ago, onward) Start Ordered 01/03/25 0000 IMAGING GUIDED BIOPSY RENAL Routine 01/03/25 1533 PAST ANESTHESIA HISTORY: No history of adverse event No past medical history on file. No past surgical history on file. Prior to Admission medications as of 01/03/25 1437 Not on File ALLERGIES No Known Allergies Objective PHYSICAL EXAM: The remainder of the physical exam is noncontributory. AIRWAY: Neck Full Range of Motion: Yes LUNGS: Lungs clear to auscultation, Good diaphragmatic excursion CARDIAC: Normal S1 and S2; no rubs, murmurs, or gallops Assessment/Plan Imaging guided kidney mass biopsy under moderate sedation ASA Class: ASA Class: Patient with mild systemic disease Provisional Diagnosis/Treatment Plan: Imaging guided kidney mass biopsy under moderate sedation Sedation Goal: Moderate SIGNATURE: Santy Dale MD PATIENT NAME: Skyler Le DATE: January 24, 2025 TIME: 9:[address] [facility] NURSING PROGon 01-24-2025 NURSING PROG HNO ID: [id number] Author: SIA OTTO RN Service: ? Author Type: Registered Nurse Type: Nursing Progress Note Filed: 01/27/2025 08:15 Note Text: Completed post procedure phone call. Skyler is feeling well and has returned to his baseline diet and activity. Skyler denies questions or concerns related to his kidney biopsy appointment on 01/24/25 and had no surgical site concerns. Normal [facility] PT EDon 01-24-2025 PT ED HNO ID: [id number] Author: ML MATA RN Service: Radiology Author Type: Registered Nurse Type: Patient Education Filed: 01/24/2025 10:57 Note Text: AMBULATORY PATIENT EDUCATION TOPIC: HEALTH PROMOTION: Follow up management READINESS TO LEARN COGNITIVE ABILITY: Alert and oriented MOTIVATION TO LEARN: Interested FAMILY SUPPORT: High - Very involved in pt care INSTRUCTION PROVIDED TO: Patient PATIENT LEARNS BEST BY: Verbal Instruction FACTORS AFFECTING LEARNING: Emotional Factors: Anxious PHYSICAL LIMITATIONS AFFECTING LEARNING: None LEARNING RESPONSE DIAGNOSIS: left kidney mass METHOD OF INSTRUCTION: Individual instruction PATIENT / FAMILY RESPONSE: Verbalizes understanding of: POST-PROCEDURE INSTRUCTIONS-Correct actions to take to reduce post procedure complications FOLLOW-UP PLAN: Reinforce - Repeat previous content SUPPLEMENTAL MATERIAL: None REFERRAL (RECOMMENDATION): None Electronically Signed By Ml Mata RN In Department: HOSP MAIN FB[address] [facility] PT panel Coag (PPP)on 2024 INR Coag (PPP) [Relative time] 1.1 {INR} Normal 0.9-1.[address] [facility] Comment on above: Order Comment: Miguelina thomas Type: TISSUE SPECIMEN Ordering Facility: [facility] Address: [address] [place] [address] Result Comment: Leticia min K Antagonist (VKA) Therapeutic Range: INR 2 to 3 (Target INR of 2.5) Note: For patients treated with VKA drugs, such as warfarin, the [place] [employer] 2012 Guideline recommends a therapeutic INR range of 2 to 3 (target INR of 2.5). This recommendation includes high-risk patients with antiphospholipid syndrome with previous arterial or venous thromboembolism, current-generation mechanical or bioprosthetic aortic heart valve replacement. Note: Patients with mechanical aortic valve replacement and additional risk factors for thromboembolic events (atrial fibrillation, previous thromboembolism, LV dysfunction, hypercoagulable conditions) or an older generation mechanical AVR (i.e., ball in-Cage) or any mechanical MVR should have a INR therapeutic range of 2.5 to 3.5 (target INR of 3). Dallastt GH, et al. Chest 2012, 141:7S-47S Waqas RA, et al. [facility] 2017, 70: 252-289 Performed By: #### 6 6121-5 #### [facility] CLIA [id number] [address] [place] [address] [place] PT Coag (PPP) [Time] 12.1 s Normal 9.7-13.0 [facility] Comment on above: Order Comment: Miguelina thomas Type: TISSUE SPECIMEN Ordering Facility: [facility] Address: [address] [place] [address] Performed By: #### 6 6121-5 #### [facility] CLIA [id number] [address] [place] [address] [place] Pathology biopsy report Carlos (Tiss)on 01-24-2025 AP DISCLAIMER Normal [facility] Comment on above: Order Comment: Miguelina thomas Type: TISSUE SPECIMEN Ordering Facility: [facility] Address: [address] [place] [address] Result Comment: Zahira craig Developed Test (LDT) Disclaimer: Performance characteristics of immunohistochemical, immunofluorescent, and chromogenic in-situ hybridization tests have been determined by the performing laboratory within [facility] Pathology and Laboratory Medicine Department ([facility], [facility], [facility], [facility], [facility], [facility], or [facility]) in a manner consistent with CLIA requirements. One or more of these tests may not have been cleared or approved by the FDA. [facility] is regulated under CLIA as qualified to perform high-complexity testing. These tests are used for clinical purposes. These should not be regarded as investigational or for research. Positive and negative controls stain appropriately. Performed By: #### 6 6121-5 #### [facility] CLIA [id number] [address] [place] [address] [place] CASE REPORT Normal [facility] Comment on above: Order Comment: Speci men Type: TISSUE SPECIMEN Ordering Facility: [facility] Address: [address] [place] [address] Result Comment: Surg [facility] Pathology Report Case: [id number] Authorizing Provider: Bg Navas MD Collected: 01/24/2025 11:40 AM Ordering Location: [place] [address] Received: 01/24/2025 04:48 PM Pathologist: Becky Cox MD Specimen: Kidney, Mass, Left, Biopsy Performed By: #### 6 6121-5 #### [facility] CLIA [id number] [address] [place] [address] [place] CLINICAL HISTORY left renal lesion Normal [facility] Comment on above: Order Comment: Speci men Type: TISSUE SPECIMEN Ordering Facility: [facility] Address: [address] [place] [address] Performed By: #### 6 6121-5 #### [facility] CLIA [id number] [address] [place] [address] [place] DIAGNOSIS COMMENT Normal [facility] Comment on above: Order Comment: Speci men Type: TISSUE SPECIMEN Ordering Facility: [facility] Address: [address] [place] [address] Result Comment: Immu nohistochemical stains to aid in classification of the tumor were performed on block A1 and demonstrates the following: PAX8: Positive CAM5.2: Positive CA 9: Positive RAHEEM: Positive P63: Negative GATA3: Negative This immunophenotype, in conjunction with morphology supports the diagnosis of a renal cell carcinoma with tumor cell necrosis and sarcomatoid differentiation. Although definitive subtype of the tumor cannot be determined within this biopsy specimen due to the poorly differentiated nature of the tumor, overall, I would favor a clear cell renal cell carcinoma subtype. Additionally noted within the background renal parenchyma are rare scattered glomeruli with thickened glomerular basement membranes in the background of ischemic glomerular changes (most likely secondary to mass effect from the tumor). Clinical history of diabetes and low albumin is noted. Given these findings, I cannot exclude a superimposed primary/secondary renal disease process. Further medical kidney workup can be performed on the final resection specimen, should there be sufficient background renal parenchyma for evaluation. The background renal parenchyma was seen in consultation with Dr. Brandon Mitchell of medical kidney pathology. This case was reviewed at genitourinary pathology consensus conference on 01/28/25 and Drs. Magui Elizalde, Dio Baez, Lety Knapp, and Magui Spencer agree with the above interpretation. 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 See comment. at 1113 EDT Performed By: #### 6 6121-5 #### [facility] CLIA [id number] [address] [place] [address] OF [facility] Normal [facility] Comment on above: Order Comment: Speci men Type: TISSUE SPECIMEN Ordering Facility: [facility] Address: [address] [place] [address] Result Comment: Diag nostic interpretation performed at: [facility], [address] [place] [address] CLIA# [id number] Epic Ambulatory Analysts: Zack Baez MD Performed By: #### 6 6121-5 #### [facility] CLIA [id number] [address] [place] [address] [place] GROSS DESCRIPTION Normal [facility] Comment on above: Order Comment: Speci men Type: TISSUE SPECIMEN Ordering Facility: [facility] Address: [address] [place] [address] Result Comment: Mayte mena, Mass, Left, Biopsy Received in formalin are multiple segments of cylindrical tissue aggregating to 2.0 x 0.4 x 0.1 cm, sabillon and of a soft and friable consistency. Totally submitted in one cassette. Gross examination performed at [facility], [address] [place] [address] JT 01/24/2025 5:57 PM Performed By: #### 6 6121-5 #### [facility] CLIA [id number] [address] [place] [address] [place] MICROSCOPIC DESCRIPTION Normal [facility] Comment on above: Order Comment: Speci men Type: TISSUE SPECIMEN Ordering Facility: [facility] Address: [address] [place] [address] Result Comment: Slid es reveal 4 cores of renal cortex with diffuse involvement with tumor. 15 glomeruli are sampled, 3 of which are globally sclerotic. The majority of the remaining glomeruli diffuse ischemic type changes with wrinkling of the glomular basement membranes, highlighted with PAS, trichrome and Farrell staining. Two glomeruli demonstrate thickening of the glomerular basement membranes but overt membranous features are not appreciated on Farrell staining. No proliferative glomerulonephritis is seen. Performed By: #### 6 6121-5 #### [facility] CLIA [id number] [address] [place] [address] [place] TYPE + SCREENon 01-24-2025 ABO O Normal [facility] Comment on above: Order Comment: Speci men Type: BLOOD SPECIMEN Ordering Facility: [facility] Address: [address] [place] [address] Performed By: #### T SCR #### [facility] CLIA [id number] [address] [place] [address] OF [place]IT Rh Nom (Bld) Positive Normal [facility] Comment on above: Order Comment: Speci men Type: BLOOD SPECIMEN Ordering Facility: [facility] Address: [address] [place] [address] Performed By: #### T SCR #### [facility] CLIA [id number] [address] [place] [address] OF [place] TYPE AND SCREEN EXPIRATION 01/27/2025 23:[address] [facility] Comment on above: Order Comment: Speci men Type: BLOOD SPECIMEN Ordering Facility: [facility] Address: [address] [place] [address] Performed By: #### T SCR #### [facility] CLIA [id number] [address] [place] [address] OF KIT US BIOPSY RENALon 01-24-2025 US BIOPSY RENAL * * *Final Report* * * DATE OF EXAM: Jan 24 2025 12:27PM [facility] [place] BIOPSY RENAL / 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 Estrada COAL HAULER OPERATOR(S): None. CONSENT: The risks, benefits, treatment options, potential complications and personnel involved were discussed with the patient. All questions were answered and consent was obtained. The patient indicated willingness to proceed. The staff physician personally verified consent. TIME OUT: A time out was performed immediately prior to procedure start with the nursing, anesthesia and interventional team, correctly identifying the patient name, date of , procedure, anatomy (including marking of site and side), patient position, procedure consent form, relevant diagnostic and radiology test results, antibiotic administration, safety precautions, and procedure-specific equipment needs. RESULT: PROCEDURE: After performing the time out, the left lower pole renal mass was localized with ultrasound, images were obtained and archived. The left flank was prepped and draped in the usual sterile fashion. Under direct ultrasound guidance, 4 passes were made into the left renal mass using an 18 gauge core biopsy needle. The procedure was performed by the: attending radiologist, without an personal care assistant. ANESTHESIA/SEDATION: Conscious sedation: Versed: 1.0 mg IV Fentanyl: 50 mcg IV Local anesthesia: Lidocaine 1%: 10 cc Vital signs were monitored by the nurse. START TIME/TIMEOUT TIME: 11:30 END TIME: 11:52 INTRA-SERVICE (SEDATION) TIME: 22 minutes PATIENT MONITORING: The staff physician personally supervised and directed an independent trained observer who assisted in monitoring the patient?s level of consciousness and physiological status throughout the procedure. SIGNIFICANT COMPLICATIONS: None MINOR COMPLICATIONS: None SIGN-OUT DISCUSSION: Completed ESTIMATED BLOOD LOSS: Minimal SPECIMENS: 4 core biopsy specimen(s) were placed in formalin and sent to surgical pathology BIOPSY DEVICE: 18 gauge Corvocet core biopsy needle. IMPRESSION: ULTRASOUND GUIDED LEFT RENAL MASS BIOPSY DESCRIBED. v 09.09.21 Junior Assistant Manager: YANY Transcribe Date/Time: Jan 24 2025 12:25P Dictated by : YOVANY ESTRADA DO This examination was interpreted and the report reviewed and electronically signed by: YOVANY ESTRADA DO on Jan 24 2025 1:25PM EST [id number] Normal [facility] aPTT PPPon 01-24-2025 aPTT Coag (PPP) [Time] 31.6 s Normal 23.0-32.[address] [facility] Comment on above: Order Comment: Speci men Type: TISSUE SPECIMEN Ordering Facility: [facility] Address: [address] [place] [address] Performed By: #### 6 6121-5 #### [facility] CLIA [id number] [address] [place] [address] OF [place]IT NURSING PROGon 01-20-2025 NURSING PROG HNO ID: [id number] Author: NICHOLE DAMON, RN Service: Radiology Author Type: Registered Nurse Type: Nursing Progress Note Filed: 01/20/2025 10:10 Note Text: Pre-procedure instructions: Contacted patient and confirmed appt. for kidney mass biopsy scheduled on 01/24/25, at [facility]. If instructions are not followed your procedure may need to be cancelled or rescheduled. Diet: Do not eat solid food after midnight the night before your procedure. You may have water until your arrival time. Medications: IF ok with your Prescribing Provider: RADIOLOGY RECOMMENDS THESE MEDICATION RESTRICTIONS Metformin: Stop metformin oral hypoglycemic the day of this procedure You may take your other medications with water on the day of your procedure. Labs: Lab work needs to be drawn on the day of your procedure at the [facility], desk J1-4. Arrival: Please bring your Photo ID and Insurance Card. A general consent may need to be signed. Arrival at 8:30am to desk J1-4 (Lab) Then proceed to desk QB-1 ([facility]) and check in for your procedure. Property Investor/Transportation: How will you be arriving for your procedure? Private car. You will need a responsible adult to accompany you to and from the procedure. Your light truck driver is required to stay with you until you are taken into the Procedure room. Recovery expectations: You can expect to be at the hospital for the majority of the day. Please do not schedule any other appointments the day of your procedure. Written instructions provided to patient via [employer] If you have any questions please call [phone] [facility] Sarai 01-09-2025 CARLY Telephone ([facility]) MIMISKYLER RAJAN ([id number]) 1960 M Date Time Provider Department 01/09/25 BING ARVIZU During your visit today, we recorded the following information about you: Orquidea Terrazas 01/09/2025 10:27 AM Signed Left voice message on patients phone and also 's Irene to call Interventional Radiology to schedule his biopsy. They have left 2 messages to call to schedule appointment. Allergies As of Date: 01/09/2025 (No Known Allergies) Date Reviewed: 01/03/2025 Reviewed by: Guerita Worley RN - Fully Assessed Reason for Visit: BIOPSY APPOINTMENT [Other] Problem List As Of Date: 01/09/2025 (None) Encounter Status:Closed by ORQUIDEA TERRAZAS on 01/09/25 [facility] Basic metabolic 2000 panelon 01-03-2025 Anion gap [Moles/Vol] 15 mmol/L 8 - 15 mmol/L [facility] Calcium [Mass/Vol] 8.8 mg/dL 8.5 - 10. 2 mg/dL [facility] Chloride [Moles/Vol] 100 mmol/L 98 - 10 7 mmol/L [facility] CO2 [Moles/Vol] 23 mmol/L 22 - 30 mmol/L [facility] Creatinine [Mass/Vol] 1.46 mg/dL High 0.73 - 1.22 mg/dL [facility] GFR/1.73 sq M.predicted among non-blacks MDRD (S/P/Bld) [Vol rate/Area] 53 mL/min/{1.73_m2} Low - PINF [facility] Comment on above: Estimated Glomerular Filtration Rate (eGFR) is calculated using the 202 CKD-EPI creatinine equation. This equation utilizes serum creatinine, sex, and age as parameters. The creatinine assay has traceable calibration to isotope dilution-mass spectrometry. Refer to KDIGO guidelines for clinical interpretation. In patients with unstable renal function, e.g. those with acute kidney injury, the eGFR may not accurately reflect actual GFR. Glucose [Mass/Vol] 115 mg/dL High 74 - 99 mg/dL [facility] Comment on above: The [place] Diabete s Association (ADA) provides guidance for cutoff values for fasting glucose and random glucose. The ADA defines fasting as no caloric intake for at least 8 hours. Fasting plasma glucose results between 100 to 125 mg/dL indicate increased risk for diabetes (prediabetes). Fasting plasma glucose results greater than or equal to 126 mg/dL meet the criteria for diagnosis of diabetes. In the absence of unequivocal hyperglycemia, results should be confirmed by repeat testing. In a patient with classic symptoms of hyperglycemia or hyperglycemic crisis, random plasma glucose results greater than or equal to 200 mg/dL meet the criteria for diagnosis of diabetes. Reference: Standards of Medical Care in Diabetes 2016, [place] Diabetes Association. Diabetes Care. 2016.39(Suppl 1). Interpretation and review of laboratory results Abnormal [facility] Potassium [Moles/Vol] 4 mmol/L 3.7 - 5.1 mmol/L [facility] Sodium [Moles/Vol] 138 mmol/L 136 - 144 mmol/L [facility] Urea nitrogen [Mass/Vol] 18 mg/dL 9 - 24 mg/dL [facility] Anion gap [Moles/Vol] 15 mmol/L Normal 8-15 [facility] Comment on above: Order Comment: Miguelina thomas Type: BLOOD SPECIMEN Ordering Facility: [facility] Address: [address] [place] [address] Performed By: #### 2 4321-2 #### [facility] CLIA [id number] [address] [place] [address] [place] Calcium [Mass/Vol] 8.8 mg/dL Normal 8.5-10.2 [facility] Comment on above: Order Comment: Miguelina thomas Type: BLOOD SPECIMEN Ordering Facility: [facility] Address: [address] [place] [address] Performed By: #### 2 4321-2 #### [facility] CLIA [id number] [address] [place] [address] [place] Chloride [Moles/Vol] 100 mmol/L Normal 98-107 [facility] Comment on above: Order Comment: Miguelina thomas Type: BLOOD SPECIMEN Ordering Facility: [facility] Address: [address] [place] [address] Performed By: #### 2 4321-2 #### [facility] CLIA [id number] [address] [place] [address] [place] CO2 [Moles/Vol] 23 mmol/L Normal 22-30 [facility] Comment on above: Order Comment: Miguelina thomas Type: BLOOD SPECIMEN Ordering Facility: [facility] Address: [address] [place] [address] Performed By: #### 2 4321-2 #### [facility] CLIA [id number] [address] [place] [address] [place] Creatinine [Mass/Vol] 1.46 mg/dL High 0.73-1.22 [facility] Comment on above: Order Comment: Miguelina men Type: BLOOD SPECIMEN Ordering Facility: [facility] Address: [address] [place] [address] Performed By: #### 2 4321-2 #### [facility] CLIA [id number] [address] [place] [address] [place] Creatinine and Glomerular filtration rate.predicted panel (S/P/Bld) 53 mL/min/1.73m??? Low >=60 [facility] Comment on above: Order Comment: Miguelina men Type: BLOOD SPECIMEN Ordering Facility: [facility] Address: [address] [place] [address] Result Comment: Samantha mated Glomerular Filtration Rate (eGFR) is calculated using the 2020 CKD-EPI creatinine equation. This equation utilizes serum creatinine, sex, and age as parameters. The creatinine assay has traceable calibration to isotope dilution-mass spectrometry. Refer to KDIGO guidelines for clinical interpretation. In patients with unstable renal function, e.g. those with acute kidney injury, the eGFR may not accurately reflect actual GFR. Performed By: #### 2 4321-2 #### [facility] CLIA [id number] [place] [address] [place] Glucose [Mass/Vol] 115 mg/dL High 74-99 [facility] Comment on above: Order Comment: Miguelina thomas Type: BLOOD SPECIMEN Ordering Facility: [facility] Address: [address] [place] [address] Result Comment: The [place] Diabetes Association (ADA) provides guidance for cutoff values for fasting glucose and random glucose. The ADA defines fasting as no caloric intake for at least 8 hours. Fasting plasma glucose results between 100 to 125 mg/dL indicate increased risk for diabetes (prediabetes). Fasting plasma glucose results greater than or equal to 126 mg/dL meet the criteria for diagnosis of diabetes. In the absence of unequivocal hyperglycemia, results should be confirmed by repeat testing. In a patient with classic symptoms of hyperglycemia or hyperglycemic crisis, random plasma glucose results greater than or equal to 200 mg/dL meet the criteria for diagnosis of diabetes. Reference: Standards of Medical Care in Diabetes 2016, [place] Diabetes Association. Diabetes Care. 2016.39(Suppl 1). Performed By: #### 2 4321-2 #### [facility] CLIA [id number] [address] [place] [address] [place] Potassium [Moles/Vol] 4.0 mmol/L Normal 3.7-5.1 [facility] Comment on above: Order Comment: Miguelina thomas Type: BLOOD SPECIMEN Ordering Facility: [facility] Address: [address] [place] [address] Performed By: #### 2 4321-2 #### [facility] CLIA [id number] [address] [place] [address] [place] Sodium [Moles/Vol] 138 mmol/L Normal 136-144 [facility] Comment on above: Order Comment: Miguelina thomas Type: BLOOD SPECIMEN Ordering Facility: [facility] Address: [address] [place] [address] Performed By: #### 2 4321-2 #### [facility] CLIA [id number] [address] [place] [address] [place] Urea nitrogen [Mass/Vol] 18 mg/dL Normal 9-24 [facility] Comment on above: Order Comment: Miguelina thomas Type: BLOOD SPECIMEN Ordering Facility: [facility] Address: [address] [place] [address] Performed By: #### 2 4321-2 #### [facility] CLIA [id number] [address] [place] [address] [place] CNOVon 01-03-2025 CNOV Office Visit (URFMOB ) SKYLER LE ([id number]) 1960 M Date Time Provider Department 01/03/25 2:20 PM BING ARVIZU During your visit today, we recorded the following information about you: Pulse Blood pressure 58/minute 149/70 Bing Arvizu MD 01/03/2025 3:11 PM Signed [facility] [place] NEW PATIENT HISTORY AND PHYSICAL EXAM PATIENT INFO: Skyler Le 64 year old REFERRING M.D.: SELF CHIEF COMPLAINT: The patient is a 64-year-old male presenting for evaluation of a renal tumor.Renal mass HISTORY: Skyler Le is a 64 year old male with a hx of BPH w/ LUTS presenting for evaluation of a renal mass seen on CT A/P on 12/14/2024. The patient reports that a renal tumor was discovered following an episode of hematuria. Initial evaluation included a cystoscopy and urine cytology, which were negative for malignant cells. Subsequent CT imaging revealed a renal tumor. He denies any prior abdominal surgeries. The patient has a history of BPH and was previously prescribed Flomax, which he discontinued approximately 1-1.5 months ago due to persistent side effects, including lightheadedness, dizziness, and nausea. He reports that the medication initially improved his symptoms, but the benefits have since diminished following discontinuation. A recent post-void residual ultrasound showed a residual volume of 37 mL, which he was informed was within normal limits. He has not yet completed recent blood work to assess renal function and denies any known renal insufficiency. He has a family history of renal issues on his mother's side, though he is uncertain of the specific diagnoses. 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 Negative urine cytology LABS No results found for: PSA No results found for: CREAT CT A/P 12/14/2024 IMPRESSION: 6.9 cm heterogenous solid mass in the mid and inferior pole of the left kidney. A concern for malignancy. Urologic consultation recommended. Left the periaortic lymphadenopathy with maximal short axis dimension of 13 mm. Metastasis needs to be excluded. No distant metastasis identified. May consider PET/CT imaging. Moderate constipation. Bilateral renal cysts. Labs: - Urine cytology: Negative for malignant cells Tests: - Cystoscopy: No malignant findings Imaging: - CT scan of the abdomen and pelvis: Left renal mass measuring approximately 7 cm with extension into the collecting system; multiple bilateral renal cysts - Ultrasound (bladder): Post-void residual volume of 37 mL (within normal limits) No past medical history on file. No past surgical history on file. REVIEW OF SYSTEMS: (positive in bold) GENERAL: Recent weight gain/loss, fatigue, weakness, fever, night sweats MUSCLE/JOINTS/BONE: Back pain, joint pain, joint swelling CARDIOVASCULAR: Chest pain, heart attack GASTROINTESTINAL: Abdominal pain, fecal incontinence HEAD AND NECK: Blurry vision, double vision, cataracts, loss of vision, dryness NEUROLOGIC: Numbness, tingling SKIN: Redness, rash, nodules/bumps, hair loss, color change in hands or feet RESPIRATORY: Cough, shortness of breath ENDOCRINE: Diabetes, thyroid problems THROAT: Frequent sore throats, hoarseness PHYSICAL EXAM: General: Alert AND oriented, no acute distress Skin: Normal HEENT: Pupils equal, round. Oral cavity, oropharynx clear Neck: Supple, no mass Breast: Deferred Respiratory: Clear to auscultation, bilaterally Cardiovascular: Regular rate and rhythm, no murmurs, rubs, or gallops Abdomen: Soft, non-tender, non-distended, no masses palpable, no hepatosplenomegaly, normal bowel sounds Genitourinary: Deferred MSK: Back is non-tender Extremities: No clubbing, cyanosis, or edema Constitutional: Well-nourished, No physical deformities. Normally developed. Good grooming. Neck: Neck symmetrical, not swollen, Normal tracheal position. Eyes: Normal conjunctivae, normal eyelids. Ears, Nose, Mouth, and Throat: Left ear no scars, no lesions, no masses. Right ear no scars, no lesions, no masses. Nose no scars, no lesions, no sydnee. Normal hearing. Normal lips. Respiratory: NL effort, no retraction or pursed-lip breathing Cardiovascular: Normal temperature, normal extremity pulses, no swelling, no varicosities. Skin: No paleness, no jaundice, no cyanosis. No lesion, no ulcer, no rash Lymphatic: No enlargement of neck, axillae, groin. Neurologic/Psychiatric: Oriented to time, oriented to place, oriented to person. No depression, no anxiety, no agitation. Musculosckeletal: Normal gait and station of head and neck Extr (more content not included)... Normal [facility] 01-03-2025 [facility] Telephone (IRRFV) SKYLER LE ([id number]) 1960 M Date Time Provider Department 01/03/25 BING ARVIZU [facility] During your visit today, we recorded the following information about you: Mercy Walker 01/03/2025 3:48 PM Signed RADIOLOGY CALL CENTER INTAKE DATE: 01/03/2025 TIME: 3:46pm REQUESTING STAFF: Bing Arvizu MD PHONE/PAGER: [phone] SPECIFICS OF THE REQUEST: Renal Biopsy SPECIAL REQUESTS: TISSUE SAMPLE, LABWORK: N/A IS THIS REQUEST PART OF A RESEARCH PROTOCOL: No MEDICAL DIAGNOSIS: Neoplasm of uncertain behavior of left kidney TYPE AND DATE OF THE EXAM THAT IS THE BASIS OF THE REQUEST: CT Date: 12/14/2024 IMAGING: OUTSIDE [facility] Films: Where is study now: in patient's chart Note to all persons requesting biopsies: All biopsy requests will be scheduled as quickly as possible, based on the clinical urgency, availability of appointment times, the need to hold anti-thrombolytic therapy (aspirin, blood thinners) and the patient?s schedule, including the 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 If a percutaneous biopsy or drainage is not felt to be safe or an alternative method for establishing a diagnosis is possible, this will be discussed directly with the requesting physician. Sia Kendall LPN 01/06/2025 7:59 AM Signed BX. COORDINATOR INFORMATION LAB RESULTS: No results found for: INR No results found for: APTT No results found for: PLT No current outpatient medications on file. No current facility-administered medications for this visit. ALLERGIES No Known Allergies FILMS SENT TO WORKSTATION: GUIDELINES FOR HOLDING ANTI-PLATELET AND ANTI- COAGULATION THERAPY: none on file NURSE SIGNATURE: Sia Kendall LPN DATE: January 06, 2025 TIME: 7:59 AM Rivas Santana MD 01/06/2025 9:24 AM Signed RADIOLOGIST REQUEST / APPROVAL FORM STAFF RADIOLOGIST:Max PROCEDURE TO BE DONE UNDER: US PROCEDURE REQUESTED: CORE Requested PROCEDURE: Approved TIME SLOT NEEDED: 1 Hour NOTES: Left lower pole renal mass with calyceal involvement, need to differentiate RCC versus urothelial for management. SPECIAL LABS/ PROCESSING: Routine Pre-procedure labs: CBC: ordered INR: ordered COVID: not needed SIR Bleeding risk category for this procedure: intermediate-high risk. Reference from [facility] Hydrometeorological Technician: [email or web address] STAFF SIGNATURE: Rivas Santana MD DATE: January 06, 2025 TIME: 9:21 AM Jamar Carlton 01/06/2025 2:03 PM Signed Left vm for patient to call back- 1st attempt Chani Dacosta 01/07/2025 4:21 PM Signed Called pt to schedule and a message was left. 2nd attempt Chani Dacosta 01/10/2025 9:08 AM Signed Spoke pt and scheduled biopsy for 01/24/25. Nichole Damon RN 01/20/2025 10:14 AM Signed Addended by: NICHOLE DAMON on: 01/20/2025 10:14 AM Modules accepted: Orders Allergies As of Date: 01/03/2025 (No Known Allergies) Date Reviewed: 01/03/2025 Reviewed by: Guerita Worley RN - Fully Assessed Reason for Visit: REnal Biopsy [Other] Primary Visit Diagnosis:Renal mass, left [N28.89] Problem List As Of Date: 01/03/2025 (None) Encounter Status:Closed by JAMAR CARLTON on 01/06/25 [facility] Ambulatory Visit Summaryon 0 12-20-2024 Ambulatory Visit Summary Ambulatory Visit Summary SKYLER LE :1960 Visit Date:12/20/2024 Ambulatory Visit Instructions Your Diagnosis Renal mass BPH with obstruction/lower urinary tract symptoms Cystitis cystica Constipation Your Care Team Attending Physician - Nikolai ACOSTA MD Primary Care Physician - JESSICA DAVALOS CNP This Is Your Medications List dutasteride (dutasteride 0.5 mg Cap) Contact prescribing physician if questions or concerns allopurinol (allopurinol 300 mg Tab) ciprofloxacin (ciprofloxacin 500 mg Tab) fluoxetine (FLUoxetine 10 mg Cap) hydrochlorothiazide-lis inopril (hydrochlorothiazide-li sinopril 12.5 mg-20 mg Tab) metformin (metformin 1000 mg Tab) metoprolol (metoprolol succinate 100 mg ER Tab) spironolactone (spironolactone 25 mg Tab) Procedures Performed Cystoscopy (11/11/2024), Colonoscopy. Discharge Vitals Temperature (Temporal Artery) 37 ???C Heart Rate (Peripheral) 70 Respiratory Rate 16 Blood Pressure 131/78 Height 182 cm Height 72 in Weight 125.4 kg Weight 276.459 lb BMI 37.86 What to do next You Need to Schedule the Following Appointments Follow Up with KARLA JAMES, Nikolai Berry, ELÍASL When: Where: [facility] [address], [place] [address]- Someone Will Contact You Regarding These Appointments [facility] External Ambulatory Referral, Service not offered at [facility], Urology, [facility], 12/20/24 8:54:00 EDT, Renal mass Medications What How Much When Instructions New dutasteride (dutasteride 0.5 mg Cap) 1 Capsules By Mouth Every day Duration: 30 Days Refills: 11 Pickup at [facility] #[id number] Unchanged allopurinol (allopurinol 300 mg Tab) By Mouth Contact prescribing physician if questions or concerns Unchanged ciprofloxacin (ciprofloxacin 500 mg Tab) Contact prescribing physician if questions or concerns Unchanged fluoxetine (FLUoxetine 10 mg Cap) 1 Capsules Contact prescribing physician if questions or concerns Unchanged hydrochlorothiazide-lis inopril (hydrochlorothiazide-li sinopril 12.5 mg-20 mg Tab) 1 Tablets Contact prescribing physician if questions or concerns Unchanged metformin (metformin 1000 mg Tab) 1 Tablets Contact prescribing physician if questions or concerns Unchanged metoprolol (metoprolol succinate 100 mg ER Tab) 1 Tablets By Mouth Every day Contact prescribing physician if questions or concerns Unchanged spironolactone (spironolactone 25 mg Tab) 25 Milligram By Mouth 2 times a day Contact prescribing physician if questions or concerns Pharmacy Information [facility] #[id number]: [address] [place], [place] [id number] [phone] Allergies No Known Medication Allergies Problems Ongoing - Any problem that you are currently receiving treatment for. Benign hypertension (high blood pressure) BPH with obstruction/lower urinary tract symptoms Constipation Depression Diabetes Gout Gross hematuria Prostate cancer screening Renal mass Patient Survey You may receive a survey via text or e-mail asking about your office visit. Please share your experience with us by completing your survey. We appreciate your feedback and thank you for choosing us for your care. Education Materials Transurethral Resection of the Prostate Transurethral resection of the prostate (TURP) is the removal, or resection, of part of the prostate tissue. This procedure is done to treat an enlarged prostate gland (benign prostatic hyperplasia). The goal of TURP is to remove enough prostate tissue to allow for a normal flow of urine. The procedure will allow you to empty your bladder more completely when you urinate so that you can urinate less often. In a transurethral resection, a thin telescope with a light, a camera, and an electric cutting edge (resectoscope) is passed through the urethra and into the prostate. The opening of the urethra is at the end of the penis. Tell a health care provider about: ??? Any allergies you have. ??? All medicines you are taking, including vitamins, herbs, eye drops, creams, and gdde-aak-zfpwpph medicines. ??? Any problems you or family members have had with anesthetic medicines. ??? Any bleeding problems you have. ??? Any surgeries you have had. ??? Any medical conditions you have. ??? Any prostate infections you have had. What are the risks? Generally, this is a safe procedure. However, problems may occur, including: ??? Infection. ??? Bleeding. ??? Allergic reactions to medicines. ??? Blood in the urine (hematuria). ??? Damage to nearby structures or organs. Other problems may occur, but they are rare. They include: ??? Dry ejaculation, or having no semen come out during orgasm. ??? Erectile dysfunction, or being unable to have or keep an erection. ??? Scarring that leads to narrowing of the urethra. This narrowing may block the flow of urine. ??? Inability to control when you urinate (incontinen (more content not included)... Normal [facility] Urology Office/Clinic Noteon 12-20-2024 Urology Office/Clinic Note Urology Office/Clinic Note Chief Complaint 2 month f/u to cysto with CT scan HPI Staff 64yr old male pt here for 1mo f/u to cysto done 11/11/24. Pathology negative for high grade urothelial carcinoma. Previous Dx: gross hematuria, constipation, BPH with obstruction/lower urinary tract symptoms, prostate cancer screening Pt has complaints of urinary frequency and weak stream almost always and urgency less than half the time. Nocturia x4. IPSS score today is 17 Denies dysuria, states that he does seem to have a little visible blood in urine if he is constipated and has to strain for a bowel movement. Cipro 500mg BID. Flomax discontinued. PVR today is 37ml. History of Present Illness Tests reviewed: cysto, bladder wash, CT I have reviewed the previous health record information and history for this patient from Dr. Acosta. I have reviewed and verified the staff HPI to be accurate for this encounter. Review of Systems PHQ Score Initial Depression Screen Score: 0 SCORE ROS - Provider Constitutional: denies weight loss, denies hot flashes. Eyes: denies eye problems. Gastrointestinal: denies nausea, denies vomiting. Cardiovascular: denies chest pain or angina. Integumentary: no dryness Musculoskeletal: denies musculoskeletal symptoms. ENMT: denies otolaryngeal symptoms. Respiratory: no shortness of breath. Heme/Lymph: denies easy bleeding tendency, denies easy bruising tendency. Psychiatric: no confusion, no anxiety. Genitourinary: See HPI. Physical Exam Vitals & Measurements T: 37 ???C(Temporal Artery) HR: 70(Peripheral) RR: 16 BP: 131/78 HT: 182 cm HT: 72 in WT: 125.4 kg WT: 276.459 lb BMI: 37.86 General Appearance: alert, no distress, well nourished, well developed male. Assessment/Plan 1. Renal mass (N28.89: Other specified disorders of kidney and ureter) Cysto 11/11/24 - Neg for b.t. Bladder wash neg for HG. CT AP w/wo con 12/14/24 [facility] - A 6.9 x 6.3 x 6.0 cm heterogenous solid mass mid to Left IP, concerning for malignancy. Mildly prominent periaortic lymph nodes, largest 13 mm. Metastasis needs to be excluded. Extension into renal pelvis. BL renal cysts largest on R 6.2 cm. Punctate L renal stone. No hydro. Cre 1.53, GFR 46 Reviewed imaging with pt, almost 7 cm concern for renal cancer and high risk for metastasis. This is causing hematuria. This s #1 priority, require immediate management. Unable to view image through [facility] portal, cannot assess if he would be a better candidate for partial or total nephrectomy. No strenuous activity for 6 wks, may be able to due light duty after 10 days-2 wks. Pt is concerned with being able to take time off work. Stressed the importance of immediate intervention and risk of fatality if not addressed immediately. Will refer to lap robotic surgeon. Follow up pending below or sooner if needed. Pt understands and agrees with plan. -Refer to lap robotic surgeon -Retrieve image from [facility] 2. BPH with obstruction/lower urinary tract symptoms (N40.1: Benign prostatic hyperplasia with lower urinary tract symptoms) PSA: 10/28/23 - 0.45 Cysto 11/11/24 - Bilobar obstruction. Extremely thick trabeculation. Diffuse diverticuli most of which were very deep. Started Flomax 0.4 mg bid. PVR 37 cc. IPSS 17 (13). No longer Flomax 0.4 mg bid, did like how Flomax helped his sx but had lightheadedness with bid and qd dosing. Could add 5-FERMÍN but will take 6 mos for full effect. May alleviate some sx but will still require formal TURP. Med will not protect the bladder from further damage. Reviewed cysto findings with pt including severe bladder damage d/t prostate obstructing channel. This degree will require TURP which would relieve obstruction and allow bladder to work less. Cannot reverse current bladder damage but would prevent further damage. -Update PSA -Start Dutasteride 0.5 mg qd. SEs discussed. Sent to . 3. 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 Started Cipro 500 mg bid x 1 month with 1 refill. Still taking Cipro 500 mg bid. 4. Constipation (K59.00: Constipation, unspecified) Has started taking fiber. [place] flomax helped with his constipation. Educated pt on bladder/bowel regimen. -Aggressive bowel management Follow-up With When Contact Information Nikolia ACOSTA MD, URL [facility] [address] [place] [address]- Additional Instructions: f/u pending referral to surgeon Patient Education Transurethral Resection of the Prostate Benign Prostatic Hyperplasia Renal Mass I, Janeth Huynh, personally scribed for Dr. Acosta on 12/20/2024 08:52:10. . Documentation recorded by the scribe, Janeth Huynh, accurately reflects the services(s) I performed and decisions made by me. Authenticated by Dr. Acosta on 12/20/2024 08:56:59. Problem List/Past Medical History Ongoing Benign hypertension (high blood pressure) BPH with obst (more content not included)... Normal [facility] Comment on above: Result Comment: Elec tronically Signed By: Nikolai ACOSTA MD\.br\Date and Time Signed: 12/20/24 08:57 EDT\.br\Electronically Co-Signed By: Janeth Huynh\.br\Date and Time Co-Signed: 12/20/24 08:52 EDT\.br\Electronically Co-Signed By: Janeth Huynh\.br\Date and Time Co-Signed: 12/20/24 08:55 EDT C Urineon 10-26-2024 Bacteria identified Cx Nom [...] Locations R1: This test was performed at: [facility], [address] [place] [address], [id number]- , [place], Normal [facility] Comment on above: Performed By: #### 2 [id number] #### [facility] [address] [place] [address] Urology Office/Clinic Noteon 10-24-2024 Urology Office/Clinic Note Urology Office/Clinic Note Chief Complaint gross hematuria HPI Staff 64yr old male referred by Jessica Davalos NP for gross hematuria. Had gross hematuria [...] E&M of New Patient Moderate 45-59 Min 12551 Urine Culture 2. Constipation (K59.00: Constipation, unspecified) Recommended aggressive bowel management. Ordered: E&M of New Patient Moderate 45-59 Min 88814 3. BPH with obstruction/lower urinary tract symptoms (N40.1: Benign prostatic hyperplasia with lower urinary tract symptoms) IPSS 13 QOL 3 - frequency (5), urgency (1), weak stream (3), nocturia (4) Has never tried meds previously. Can consider starting alpha robles after scope (pt seemed a bit overwhelmed by information today so focused on #1). 4. Prostate cancer screening (Z12.5: Encounter for screening for malignant neoplasm of prostate) Called PCP office, they are faxing over result from Oct 2023. Can update once the bleeding stops/scope complete. Other obstructive and reflux uropathy (N13.8: Other obstructive and reflux uropathy) Orders: sulfamethoxazole-trimet hoprim, See Instructions, 24 tab(s), Refill(s) 0, 1 tab po BID x 7d, then 1 tab po QD x 10d, [id number], 182, cm, 10/24/24 9:12:00 EST, Height/Length Dosing, 130, kg, 10/24/24 9:12:00 EST, Weight Dosing Follow-up With When Contact Information [facility] Additional Instructions: For procedure as [...] 10 mg Cap, 10 mg= 1 cap(s) hydrochlorothiazide-lis inopril 12.5 mg-20 mg Tab, 1 tab(s) metformin 1000 mg Tab, 1000 mg= 1 tab (more content not included)... Normal [facility] Comment on above: Result Comment: Elec tronically Signed By: TIARA PAYTON, NAKITA [place]\.br\Date and Time Signed: 10/24/24 13:53 EST CBC AUTO DIFFon 08-29-2022 BASO # 0.1 103/ul Normal 0.0-0.1 [facility] Comment on above: Performed By: #### C BC #### [facility] [address] [address] [address] Med Angulo Basophils/100 WBC (Bld) 0.6 % Normal 0.2-2.0 [facility] Comment on above: Performed By: #### C BC #### [facility] [address] [address] [address] Med Angulo EO # 0.2 103/ul Normal 0.0-0.7 [facility] Comment on above: Performed By: #### C BC #### [facility] [address] [address] [address] Med Angulo Eosinophils/100 WBC (Bld) 1.3 % Normal 0.9-7.0 [facility] Comment on above: Performed By: #### C BC #### [facility] [address] [place] [address] Dr. Med Angulo Erythrocyte distribution width (RBC) [Ratio] 13.8 % Normal 11.0-15.0 [facility] Comment on above: Performed By: #### C BC #### [facility] [address] [place] [address] Dr. Med Angulo Hematocrit (Bld) [Volume fraction] 40.6 % Critically low 42.0-54.0 [facility] Comment on above: Performed By: #### C BC #### [facility] [address] [place] [address] Dr. Med Angulo Hemoglobin (Bld) [Mass/Vol] 13.7 g/dL Critically low 14.0-18.0 [facility] Comment on above: Performed By: #### C BC #### [facility] [address] [place] [address] Dr. Med Angulo IG # 0.13 10e3/ul Critically high 0.00-0.03 [facility] Comment on above: Performed By: #### C BC #### [facility] [address] [place] [address] Dr. Med Angulo IG % 1.0 % Critically high 0.0-0.5 [facility] Comment on above: Performed By: #### C BC #### [facility] [address] [place] [address] Dr. Med Angulo LYMPH # 2.1 103/ul Normal 1.2-3.8 [facility] Comment on above: Performed By: #### C BC #### [facility] [address] [place] [address] Dr. Med Angulo Lymphocytes/100 WBC (Bld) 16.9 % Critically low 20.5-60.0 [facility] Comment on above: Performed By: #### C BC #### [facility] [address] [place] [address] Dr. Med Angulo MANUAL DIFF REQ NO Normal [facility] Comment on above: Performed By: #### C BC #### [facility] [address] [address] [address] Med Angulo MCH (RBC) [Entitic mass] 28.7 pg Normal 25.9-34.0 [facility] Comment on above: Performed By: #### C BC #### [facility] [address] [address] [address] Med Angulo MCHC (RBC) [Mass/Vol] 33.7 g/dL Normal 29.9-35.2 [facility] Comment on above: Performed By: #### C BC #### [facility] [address] [address] [address] Med Angulo MCV (RBC) [Entitic vol] 85.1 fL Normal 80.0-94.0 [facility] Comment on above: Performed By: #### C BC #### [facility] [address] [place] [address] Dr. Med Angulo MONO # 0.8 103/ul Normal 0.3-0.8 [facility] Comment on above: Performed By: #### C BC #### [facility] [address] [place] [address] Dr. Med Angulo Monocytes/100 WBC (Bld) 6.4 % Normal 1.7-12.0 [facility] Comment on above: Performed By: #### C BC #### [facility] [address] [place] [address] Dr. Med Angulo NEUT # 9.3 103/ul Critically high 1.4-6.5 [facility] Comment on above: Performed By: #### C BC #### [facility] [address] [place] [address] Dr. Med Angulo Neutrophils/100 WBC (Bld) 73.8 % Normal 43.0-75.0 [facility] Comment on above: Performed By: #### C BC #### [facility] [address] [place] [address] Dr. Med Angulo Platelet mean volume (Bld) [Entitic vol] 9.8 fL Normal 9.5-13.5 [facility] Comment on above: Performed By: #### C BC #### [facility] [address] [address] [address] Med Angulo PLT 292 103/ul Normal 150-450 [facility] Comment on above: Performed By: #### C BC #### [facility] [address] [place] [address] Dr. Med Angulo RBC 4.77 106/ul Normal 4.70-6.10 [facility] Comment on above: Performed By: #### C BC #### [facility] [address] [address] [address] Med Angulo WBC 12.6 103/ul Critically high 4.0-11.0 [facility] Comment on above: Performed By: #### C BC #### [facility] [address] [place] [address] Dr. Med Angulo GLYCOHEMOGLOBIN A1Con 2021 ADA RECOMMENDATION SEE BELOW Normal [facility] Comment on above: Result Comment: ADA RECOMMENDED LIMIT 4.0 - 6.0 ADA THERAPEUTIC TARGET < 7.0 ACTION SUGGESTED > 7.0 Performed By: #### A 1C #### [facility] [address] [place] [address] Dr. Med Angulo Glucose [Mass/Vol] 111 mg/dL Normal [facility] Comment on above: Performed By: #### A 1C #### [facility] [address] [place] [address] Dr. Med Angulo HbA1c (Bld) [Mass fraction] 5.5 % Normal 4.5-6.2 [facility] Comment on above: Performed By: #### A 1C #### [facility] [address] [place] [address] Dr. Med Angulo LIPID PROFILEon 08-29-2022 CHOL-HDL RATIO NORM SEE BELOW Normal [facility] Comment on above: Result Comment: 3.3 - 4.4 LOW RISK 4.4 - 7.1 AVERAGE RISK 7.1 - 11.0 MODERATE RISK >11.0 HIGH RISK Performed By: #### L IPID, CMP #### [facility] [address] [address] [address] Med Angulo Cholesterol [Mass/Vol] 128 mg/dL Normal <=200 [facility] Comment on above: Performed By: #### L IPID, CMP #### [facility] [address] [address] [address] Med Angulo Cholesterol in HDL [Mass/Vol] 31 mg/dL Critically low 40-60 [facility] Comment on above: Performed By: #### L IPID, CMP #### [facility] [address] [address] [address] Med Angulo Cholesterol in LDL [Mass/Vol] 43.4 mg/dL Normal [facility] Comment on above: Performed By: #### L IPID, CMP #### [facility] [address] [address] [address] Med Angulo Cholesterol.total/Cho lesterol in HDL [Mass ratio] 4.1 {ratio} Normal [facility] Comment on above: Performed By: #### L IPID, CMP #### [facility] [address] [address] [address] Med Angulo HDL NORMAL > or = 60 mg/dl - LO W CARDIOVASCULAR RISK <40 mg/dl - HIGH CARDIOVASCULAR RISK Normal [facility] Comment on above: Performed By: #### L IPID, CMP #### [facility] [address] [address] [address] Med Angulo LDL CALC NORMAL SEE BELOW Normal [facility] Comment on above: Result Comment: <100 mg/dl OPTIMAL 100 - 129 mg/dl NEAR OR ABOVE OPTIMAL 130 - 159 mg/dl BORDERLINE HIGH 160 - 189 mg/dl HIGH >190 mg/dl VERY HIGH Performed By: #### L IPID, CMP #### [facility] [address] [address] [address] Med Angulo Triglyceride [Mass/Vol] 268 mg/dL Critically high <=150 [facility] Comment on above: Performed By: #### L IPID, CMP #### [facility] [address] [address] [address] Med Angulo VLDL CALC 53.6 mg/dL Normal [facility] Comment on above: Performed By: #### L IPID, CMP #### [facility] [address] [place] [address] Dr. Med Angulo PROF 14(COMP METB)on 022 Albumin [Mass/Vol] 3.8 g/dL Normal 3.4-5.0 [facility] Comment on above: Performed By: #### L IPID, CMP #### [facility] [address] [place] [address] Dr. Med Angulo Albumin/Globulin [Mass ratio] 0.9 {ratio} Normal [facility] Comment on above: Performed By: #### L IPID, CMP #### [facility] [address] [place] [address] Dr. Med Angulo ALP [Catalytic activity/Vol] 63 U/L Normal 46-116 [facility] Comment on above: Performed By: #### L IPID, CMP #### [facility] [address] [place] [address] Dr. Med Angulo ALT [Catalytic activity/Vol] 60 U/L Normal 16-63 [facility] Comment on above: Performed By: #### L IPID, CMP #### [facility] [address] [place] [address] Dr. Med Angulo Anion gap [Moles/Vol] 12.5 mmol/L Normal [facility] Comment on above: Performed By: #### L IPID, CMP #### [facility] [address] [place] [address] Dr. Med Angulo AST [Catalytic activity/Vol] 40 U/L Critically high 15-37 [facility] Comment on above: Performed By: #### L IPID, CMP #### [facility] [address] [place] [address] Dr. Med Angulo Bilirubin [Mass/Vol] 0.5 mg/dL Normal 0.2-1.0 [facility] Comment on above: Performed By: #### L IPID, CMP #### [facility] [address] [place] [address] Dr. Med Angulo Calcium [Mass/Vol] 9.2 mg/dL Normal 8.5-10.1 [facility] Comment on above: Performed By: #### L IPID, CMP #### [facility] [address] [address] [address] Med Angulo Chloride [Moles/Vol] 99 mmol/L Normal 98-107 [facility] Comment on above: Performed By: #### L IPID, CMP #### [facility] [address] [address] [address] Med Angulo CO2 [Moles/Vol] 29.9 mmol/L Normal 21.0-32.0 [facility] Comment on above: Performed By: #### L IPID, CMP #### [facility] [address] [place] [address] Dr. Med Angulo Creatinine [Mass/Vol] 1.83 mg/dL Critically high 0.70-1.30 [facility] Comment on above: Performed By: #### L IPID, CMP #### [facility] [address] [place] [address] Dr. Med Angulo EGFR-AF SALVADOREAN 46 mL/min/1.73m2 Critically low >=60 [facility] Comment on above: Performed By: #### L IPID, CMP #### [facility] [address] [place] [address] Dr. Med Angulo EGFR-NON AF SALVADOREAN 38 mL/min/1.73m2 Critically low >=60 [facility] Comment on above: Performed By: #### L IPID, CMP #### [facility] [address] [place] [address] Dr. Med Angulo Globulin (S) [Mass/Vol] 4.4 g/dL Normal [facility] Comment on above: Performed By: #### L IPID, CMP #### [facility] [address] [place] [address] Dr. Med Angulo Glucose [Mass/Vol] 95 mg/dL Normal 74-106 [facility] Comment on above: Performed By: #### L IPID, CMP #### [facility] [address] [address] [address] Med Angulo Potassium [Moles/Vol] 4.4 mmol/L Normal 3.5-5.1 [facility] Comment on above: Performed By: #### L IPID, CMP #### [facility] [address] [address] [address] Med Angulo Protein [Mass/Vol] 8.2 g/dL Normal 6.4-8.2 [facility] Comment on above: Performed By: #### L IPID, CMP #### [facility] [address] [address] [address] Med Angulo Sodium [Moles/Vol] 137 mmol/L Normal 136-145 [facility] Comment on above: Performed By: #### L IPID, CMP #### [facility] [address] [address] [address] Med Angulo Urea nitrogen [Mass/Vol] 26.0 mg/dL Critically high 7.0-18.0 [facility] Comment on above: Performed By: #### L IPID, CMP #### [facility] [address] [address] [address] Med Angulo Urea nitrogen/Creatinine [Mass ratio] 14.2 mg/mg Normal [facility] Comment on above: Performed By: #### L IPID, CMP #### [facility] [address] [place] [address] Dr. Med Angulo Vital Signs Date Time Vital Sign Value Performing Clinician Facility 02-27-2025 11:00-0400 SaO2% (BldA) [Mass fraction] 100 % [facility] Comment on above: Order Comment: Specimen Type: ARTERIAL B LOOD SPECIMENOrdering Facility: [facility] Address: [address] [place] [address] Performed By: #### A LLBG ####[facility] [id number] [place] [address] [place] 02-27-2025 10:07-0400 SaO2% (BldA) [Mass fraction] 99 % [facility] Comment on above: Order Comment: Specimen Type: ARTERIAL B LOOD SPECIMEN Ordering Facility: [facility] Address: [address] [place] [address] Performed By: #### A LLBG #### [facility] [place] [id number] [id number] [facility] 02-27-2025 09:07-0400 SaO2% (BldA) [Mass fraction] 100 % BING ARVIZU [facility] Comment on above: Order Comment: Specimen Type: ARTERIAL B LOOD SPECIMEN Ordering Facility: [facility] Address: [address] [place], [place] [id number] Performed By: #### A LLBG #### [facility] CLIA [id number] [place], [place] [id number] [facility] 02-17-2025 09:13-0400 Body temperature 98.4 [degF] Chair Rockford Work Phone: [facility] 02-17-2025 09:13-0400 Diastolic blood pressure 80 mm[Hg] Chair Rockford Work Phone: [facility] 02-17-2025 09:13-0400 Heart rate 63 /min Chair Rockford Work Phone: [facility] 02-17-2025 09:13-0400 Respiratory rate 16 /min Chair Rockford Work Phone: [facility] 02-17-2025 09:13-0400 SaO2% (BldA) [Mass fraction] 98 % Chair Rockford Work Phone: [facility] 02-17-2025 09:13-0400 Systolic blood pressure 136 mm[Hg] Chair Rockford Work Phone: [facility] 02-07-2025 13:47-0400 Body height 182.9 cm Pacc 2 Work Phone: [facility] 02-07-2025 13:47-0400 Body mass index (BMI) [Ratio] 37.3 kg/m2 Pacc 2 Work Phone: [facility] 02-07-2025 13:47-0400 Body temperature 98.49 [degF] Pacc 2 Work Phone: [facility] 02-07-2025 13:47-0400 Body weight 124.74 kg Pacc 2 Work Phone: [facility] 02-07-2025 13:47-0400 Diastolic blood pressure 72 mm[Hg] Pacc 2 Work Phone: [facility] 02-07-2025 13:47-0400 Heart rate 48 /min Pacc 2 Work Phone: [facility] 02-07-2025 13:47-0400 Respiratory rate 16 /min Pacc 2 Work Phone: [facility] 02-07-2025 13:47-0400 SaO2% (BldA) [Mass fraction] 99 % Pacc 2 Work Phone: [facility] 02-07-2025 13:47-0400 Systolic blood pressure 144 mm[Hg] Pacc 2 Work Phone: [facility] 01-03-2025 14:37-0400 Diastolic blood pressure 70 mm[Hg] Bing ortega MD Work Phone: [facility] 01-03-2025 14:37-0400 Heart rate 58 /min Bing Arvizu MD Work Phone: [facility] 01-03-2025 14:37-0400 Systolic blood pressure 149 mm[Hg] Bing woodson MD Work Phone: [facility] 10-24-2024 08:56-0500 Blood Pressure Location NAKITA MENJIVAR [facility] 10-24-2024 08:56-0500 Body temperature 98.6 [degF] NAKITA MENJIVAR [facility] 10-24-2024 08:56-0500 Diastolic blood pressure 70 mm[Hg] NAKITA MENJIVAR [facility] 10-24-2024 08:56-0500 Heart rate 75 /min NAKITA MENJIVAR [facility] 10-24-2024 08:56-0500 Respiratory rate 16 /min NAKITA MENJIVAR [facility] 10-24-2024 08:56-0500 Systolic blood pressure 138 mm[Hg] NAKITA MENJIVAR [facility] Encounters Encounter Date Encounter Type Care Provider Facility Start: 03-14-2025 ambulatory Nikolai Montano ty:[facility] [place] Start: 03-10-2025 End: 03-10-2025 Orders Only Tamanna Pradeepcz SFDC CONSULTANT.TYPO MACHINE OPERATOR Work Phone: [facility] Comment on above: Hyperkalemia (Primar y Dx) Start: 03-05-2025 End: 03-05-2025 Telephone encounter Bing Arvizu MD Work Phone: Urology Comment on above: Patient Question Start: 03-04-2025 End: 03-04-2025 ambulatory TAMANNA DAFNE Facility:[facility] Start: 02-28-2025 End: 02-28-2025 Orders Only Tamanna Pradeepcz SFDC CONSULTANT.TYPO MACHINE OPERATOR Work Phone: [facility] Comment on above: ODALIS (acute kidney in jury) (Primary Dx) Start: 02-27-2025 End: 02-28-2025 Evaluation and management of inpatient JESSICA DAVALOS Facility:[facility] Start: 02-19-2025 End: 02-19-2025 ambulatory ROB ROMERO Facility:[facility] Start: 02-17-2025 End: 02-17-2025 ambulatory Chair Yany [place] Work Phone: Hematology/Oncology Comment on above: Intestinal malabsorp tion, unspecified type (HCC) (Primary Dx); Iron deficiency anemia, unspecified iron deficiency anemia type Start: 02-10-2025 End: 02-10-2025 Telephone encounter Rob Romero APRN.CNP Work Phone: Pre Anesthesia Comment on above: Results Iron deficiency anem ia, unspecified iron deficiency anemia type (Primary Dx); Intestinal malabsorption, unspecified type (HCC) Patient Update Start: 02-07-2025 End: 02-07-2025 ambulatory ROB ROMERO Facility:[facility] Start: 02-07-2025 End: 02-07-2025 Admission to establishment [address] [address] Work Phone: Pre Anesthesia Start: 02-07-2025 End: 02-07-2025 Anesthesia consultation [address] [address] Work Phone: Pre Anesthesia Comment on above: Pre-op evaluation (P rimary Dx); Depression, unspecified depression type; Type 2 diabetes mellitus without complication, unspecified whether 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 supervisor insulin use ([facility]); BPH with obstruction/lower urinary tract symptoms; Hypertension, unspecified type; ROSA M (obstructive sleep apnea); Class 2 obesity due to excess calories without serious comorbidity in adult, unspecified BMI Start: 02-07-2025 End: 02-07-2025 Preprocedural examination done [address] [address] Work Phone: [facility] Start: 02-07-2025 End: 02-07-2025 ambulatory BING ARVIZU Facility:[facility] Start: 02-07-2025 Encounter for other preprocedural examination ROB ROMERO [facility] Start: 01-24-2025 End: 01-24-2025 ambulatory BING ARVIZU Facility:[facility] Start: 01-20-2025 End: 01-20-2025 Orders Only Nichole Damon RN Angio Comment on above: Renal mass, left (Pr imary Dx); Abnormal blood chemistry Start: 01-09-2025 End: 01-09-2025 Telephone encounter Bing Arvizu MD Work Phone: Urology Comment on above: BIOPSY APPOINTMENT Start: 01-04-2025 End: 03-06-2025 Follow-up encounter Bing Arvizu MD Work Phone: Urology Start: 01-03-2025 End: 01-03-2025 Patient encounter procedure Bing Arvizu MD Work Phone: Urology Comment on above: Screening for nephro romeo (Primary Dx); Neoplasm of uncertain behavior of left kidney Start: 01-03-2025 End: 01-03-2025 ambulatory Bing Arvizu MD Work Phone: Urology Start: 01-03-2025 End: 01-06-2025 Telephone encounter Bing Arvizu MD Work Phone: [facility] Comment on above: REnal Biopsy Start: 12-20-2024 End: 12-20-2024 ambulatory Nikolai ACOSTA Facility:[facility] Start: 11-11-2024 End: 11-11-2024 ambulatory Nikolai ACOSTA Facility:CD:[id number] Start: 10-24-2024 End: 10-24-2024 Lab Drop off NAKITA MENJIVAR [facility] Start: 10-24-2024 End: 10-24-2024 ambulatory NAKITA MENJIVAR Facility[facility] Start: 10-24-2024 End: 10-24-2024 Patient encounter procedure NAKITA MENJIVAR [facility] Start: 10-11-2024 ambulatory NAKITA MENJIVAR Facility :[facility] Start: 09-03-2022 Encounter for genera l adult medical examination without abnormal findings JESSICA DAVALOS [facility] Start: 08-29-2022 End: 08-30-2022 ambulatory JESSICA DAVALOS Facility:[facility] Start: 08-29-2022 End: 08-30-2022 Encounter for general adult medical examination without abnormal findings JESSICA DAVALOS Facility:[facility] Procedures Date Procedure Procedure Detail Performing Clinician Start: 02-27-2025 Antibody screen BING ARVIZU Comment on above: Order Comment: Speci men Type: BLOOD SPECIMENOrdering Facility: [facility] Address: [address] [place] [address] Performed By: #### T SCR ####[facility] [id number] [address] Start: 01-24-2025 Antibody screen TOREY ROMERO Comment on above: Order Comment: Speci men Type: BLOOD SPECIMEN Ordering Facility: [facility] Address: [address] [place] [address] Performed By: #### T SCR #### [facility] CLIA [id number] [facility] DESK [address] OF [place] Colonoscopy NAKITA MENJIVAR Plan of Treatment Date Care Activity Detail Author Start: 2034 RSV Vaccine (1 - 1-d ose 75+ series) RSV Vaccine (1 - 1-dose 75+ series) [facility] Start: 01-04-2028 Diabetes Screening Diabetes Screenin g [facility] Start: 08-10-2025 Hemoglobin A1c measurement HbA1C [facility] Start: 06-02-2025 Influenza vaccination Influenz a Vaccine (Season Ended) [facility] Start: 03-10-2025 End: 06-09-2025 Renal function 2000 panel - Serum or Plasma [facility] Work Phone: Comment on above: Expected: 03/10/2025 , Expires: 06/09/2025 Start: 02-28-2025 End: 05-30-2025 Renal function 2000 panel - Serum or Plasma RENAL FUNCTION PANEL Lab Routine ODALIS (acute kidney injury) Expected: 02/28/2025, Expires: 05/30/2025 [facility] Work Phone: Comment on above: Expected: 02/28/2025 , Expires: 05/30/2025 Start: 02-27-2025 End: 02-27-2025 Admission to same day surgery center 02/27/2025 11:30 AM EDT - 02/27/2025 3:15 PM EDT Surgery [facility] Operating Room [address] [place] [address] Bing Arvizu MD [address] [place] [id number] ROBOTIC LAPAROSCOPIC NEPHRECTOMY PARTIAL [facility] Room Comment on above: ROBOTIC LAPAROSCOPIC NEPHRECTOMY PARTIAL Start: 02-27-2025 End: 02-27-2025 Laparoscopy surg partial nephrectomy ROBOTIC LAPAROSCOPIC NEPHRECTOMY PARTIAL Neoplasm of uncertain behavior of left kidney 02/27/2025 11:30 AM EDT [facility] OR Start: 02-27-2025 Subsequent hospital visit by physician 02/27/2025 11:30 AM EDT Hospital Encounter [facility] Operating Room [address] [place] [address] Bing Arvizu MD [address] [place] [address] 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] [facility] Comment on above: Neoplasm of uncertai n behavior of left kidney [D41.02] Start: 02-27-2025 End: 02-27-2025 Admission to same day surgery center 02/27/2025 7:30 AM EDT - 02/27/2025 11:15 AM EDT Surgery [facility] Operating Room [address] [place] [address] Bing Arvizu MD [address] [place] [address] ROBOTIC LAPAROSCOPIC NEPHRECTOMY PARTIAL [facility] Operating Room Comment on above: ROBOTIC LAPAROSCOPIC NEPHRECTOMY PARTIAL Start: 02-27-2025 End: 02-27-2025 Laparoscopy surg partial nephrectomy ROBOTIC LAPAROSCOPIC NEPHRECTOMY PARTIAL Neoplasm of uncertain behavior of left kidney 02/27/2025 7:30 AM EDT [facility] OR Start: 02-27-2025 Subsequent hospital visit by physician 02/27/2025 7:30 AM EDT Hospital Encounter [facility] Operating Room [address] [place] [address] Bing Arvizu MD [address] [place] [address] 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] [facility] Operating Room Comment on above: Neoplasm of uncertai n behavior of left kidney [D41.02] Start: 02-19-2025 End: 02-19-2025 ambulatory 02/19/2025 9:00 AM EDT [facility] Hematology/Oncology [address] [place] [address] [place] [address] [facility] Comment on above: [facility] Start: 02-07-2025 End: 05-09-2025 Ferritin [Mass/volume] in Serum or Plasma [facility] Comment on above: Expected: 02/07/2025 , Expires: 05/09/2025 Start: 02-07-2025 End: 05-09-2025 Hemoglobin A1c in Blood [facility] Comment on above: Expected: 02/07/2025 , Expires: 05/09/2025 Start: 02-07-2025 End: 05-09-2025 Iron and Iron binding capacity panel - Serum or Plasma [facility] Work Phone: Comment on above: Expected: 02/07/2025 , Expires: 05/09/2025 Start: 02-07-2025 End: 02-07-2025 Anesthesia consultation 02/07/2025 1:40 PM EDT PAT Pre Anesthesia [address] [place] [address] 2, Pacc Hallock [address] [place] [address] DOS 02/27 Pre Anesthesia Comment on above: DOS 02/27 Start: 02-06-2025 Subsequent hospital visit by physician 02/06/2025 Hospital Encounter [facility] Operating Room [address] [place] [address] Bing Arvizu MD [address] [place], [place] [id number] 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] [facility] Operating Room Comment on above: Neoplasm of uncertai n behavior of left kidney [D41.02] Start: 01-24-2025 End: 04-25-2025 CBC panel - Blood by Automated count COMPLETE BLOOD COUNT Lab STAT Renal mass, left Expected: 01/24/2025, Expires: 04/25/2025 [facility] Work Phone: Comment on above: Expected: 01/24/2025 , Expires: 04/25/2025 Start: 01-24-2025 End: 04-25-2025 PT panel - Platelet poor plasma by Coagulation assay PROTHROMBIN TIME Lab STAT Renal mass, left Expected: 01/24/2025, Expires: 04/25/2025 [facility] Comment on above: Expected: 01/24/2025 , Expires: 04/25/2025 Start: 01-24-2025 End: 01-24-2025 Admission to same day surgery center 01/24/2025 11:00 AM EDT - 01/24/2025 12:00 PM EDT Surgery Angio [address] [place] [address] Bg Navas MD [address], [address] [address] BIOPSY KIDNEY PERCUTANEOUS Angio Comment on above: BIOPSY KIDNEY PERCUT ANEOUS Start: 01-24-2025 End: 01-24-2025 Renal biopsy prq trocar/needle BIOPSY KIDNEY PERCUTANEOUS Neoplasm of uncertain behavior of left kidney 01/24/2025 11:00 AM EDT [facility] ANGIO HB6 Start: 01-24-2025 Subsequent hospital visit by physician 01/24/2025 11:00 AM EDT Hospital Encounter Angio [address] [place] [address] Bg Navas MD [address], [address] [address] 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] Angio Comment on above: Neoplasm of uncertai n behavior of left kidney [D41.02] Start: 01-06-2025 End: 04-07-2025 CBC W Auto Differential panel - Blood COMPLETE BLOOD COUNT AND DIFFERENTIAL Lab Routine Renal mass, left Expected: 01/06/2025, Expires: 04/07/2025 [facility] Work Phone: Comment on above: Expected: 01/06/2025 , Expires: 04/07/2025 Start: 01-06-2025 End: 04-07-2025 PT panel - Platelet poor plasma by Coagulation assay PROTHROMBIN TIME Lab Routine Renal mass, left Expected: 01/06/2025, Expires: 04/07/2025 [facility] Comment on above: Expected: 01/06/2025 , Expires: 04/07/2025 Start: 01-03-2025 End: 04-04-2025 aPTT in Platelet poor plasma by Coagulation assay ACTIVATED PARTIAL THROMBOPLASTIN TIME Lab Routine Neoplasm of uncertain behavior of left kidney Expected: 01/03/2025, Expires: 04/04/2025 [facility] Comment on above: Expected: 01/03/2025 , Expires: 04/04/2025 Start: 01-03-2025 End: 04-04-2025 Bacteria identified in Urine by Culture BACTERIAL CULTURE, URINE Microbiology Routine Neoplasm of uncertain behavior of left kidney Expected: 01/03/2025, Expires: 04/04/2025 [facility] Comment on above: Expected: 01/03/2025 , Expires: 04/04/2025 Start: 01-03-2025 End: 04-04-2025 CBC W Auto Differential panel - Blood COMPLETE BLOOD COUNT AND DIFFERENTIAL Lab Routine Neoplasm of uncertain behavior of left kidney Expected: 01/03/2025, Expires: 04/04/2025 [facility] Work Phone: Comment on above: Expected: 01/03/2025 , Expires: 04/04/2025 Start: 01-03-2025 End: 04-04-2025 Comprehensive metabolic 2000 panel - Serum or Plasma COMPREHENSIVE METABOLIC PANEL Lab Routine Neoplasm of uncertain behavior of left kidney Expected: 01/03/2025, Expires: 04/04/2025 [facility] Comment on above: Expected: 01/03/2025 , Expires: 04/04/2025 Start: 01-03-2025 End: 04-04-2025 CONFIRM BLOOD TYPE CONFIRM BLOOD TYPE Blood Bank Routine Neoplasm of uncertain behavior of left kidney Expected: 01/03/2025, Expires: 04/04/2025 [facility] Comment on above: Expected: 01/03/2025 , Expires: 04/04/2025 Start: 01-03-2025 End: 04-04-2025 PT panel - Platelet poor plasma by Coagulation assay PROTHROMBIN TIME Lab Routine Neoplasm of uncertain behavior of left kidney Expected: 01/03/2025, Expires: 04/04/2025 [facility] Comment on above: Expected: 01/03/2025 , Expires: 04/04/2025 Start: 01-03-2025 End: 04-04-2025 TYPE + SCREEN TYPE + SCREEN Blood Bank Routine Neoplasm of uncertain behavior of left kidney Expected: 01/03/2025, Expires: 04/04/2025 [facility] Comment on above: Expected: 01/03/2025 , Expires: 04/04/2025 Start: 12-31-2024 Covid-19 Vaccine ( season) Covid-19 Vaccine ( season) [facility] Start: 10-02-2024 Advance Directive Discussion Advance Directive Discussion [facility] Start: 06-02-2024 Influenza vaccination Influenza Vacc ine (#1) [facility] Start: 2019 RSV Vaccine (1 - Ris k 60-74 years 1-dose series) RSV Vaccine (1 - Risk 60-74 years 1-dose series) [facility] Start: 2014 Prostate specific antigen measurement Prostate Cancer Screening Discussion [facility] Start: 2009 Pneumococcal Vaccine : 50+ (1 of 1 - PCV) Pneumococcal Vaccine: 50+ (1 of 1 - PCV) [facility] Start: 2009 Shingrix Vaccine (1 of 2) Shingrix Vaccine (1 of 2) [facility] Start: 01-06-2004 Prostate specific antigen measurement Prostate Cancer Screening Discussion [facility] Start: 01-06-2004 Screening for malign ant neoplasm of colon [facility] Start: 1994 Lipid panel Lipid Screening [facility] Start: 1978 Pneumococcal Vaccine : 50+ (1 of 2 - PCV) Pneumococcal Vaccine: 50+ (1 of 2 - PCV) [facility] Start: 1978 Urine microalbumin profile DTaP,Tdap,Td Vaccine (1 - Tdap) [facility] Start: 1977 Annual PCP Team Lye Peel Operator lianne Disease Visit Annual PCP Team Chronic Disease Visit [facility] Start: 1977 Anxiety Screening Anxiety Screening [facility] Start: 1977 BP Controlled (<130/80) BP Controlle d (<130/80) [facility] Start: 1977 Depression Screening Depression Scre ening [facility] Start: 1977 Hepatitis B surface antibody level LDL Cholesterol [facility] Start: 1977 Hepatitis C screening Hepatitis C Sc palka [facility] Start: 1977 HIV screening HIV Screening [facility] Start: 1969 Diabetic foot examination Diabetic Foot Exam [facility] Start: 1969 Glaucoma screening Dilated Retinal E xam [facility] Start: 1969 Hepatitis B screening Urine Al bumin:Creatinine Ratio [facility] Start: 01-06-1964 Hemoglobin A1c measurement HbA1C [facility] ECG COMPLETE ECG COMPLETE ECG Routine Pre-op evaluation Depression, unspecified depression type Type 2 diabetes mellitus without complication, unspecified whether 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 supervisor insulin use (HCC) BPH with obstruction/lower urinary tract symptoms Hypertension, unspecified type ROSA M (obstructive sleep apnea) Class 2 obesity due to excess calories without serious comorbidity in adult, unspecified BMI Ordered: 02/07/2025 [facility] Comment on above: Ordered: 02/07/2025 Guidance for percutaneous biopsy of Kidney IMAGING GUIDED BIOPSY RENAL Radiology Routine Neoplasm of uncertain behavior of left kidney Ordered: 01/03/2025 [facility] Work Phone: Comment on above: Ordered: 01/03/2025 Laparoscopy surg partial nephrectomy ROBOTIC LAPAROSCOPIC NEPHRECTOMY PARTIAL Neoplasm of uncertain behavior of left kidney [facility] OR Immunizations Immunization Date Immunization Notes Care Provider Yaakov hough 07-02-2024 SARS-CoV-2 (COVID-19 ) [id number] vaccine NAKITA TIARA [facility] Payers Date Payer Category Payer Private Health Insurance [facility] [id number] 2023 Unknown [id number] 1959 Unknown [id number] 1959 Unknown [id number] 1959 Unknown [id number] 1959 Unknown [id number] 1959 Unknown [id number] 1959 Unknown [id number] 1959 Unknown [id number] Social History Date Type Detail Facility Start: 10-24-2024 End: 02-07-2025 Tobacco smoking status Never smoked tobacco (finding) [facility] Tobacco smoking status Never [facility] Start: 01-03-2025 End: 02-07-2025 Sex Assigned At Male [facility] Tobacco smoking stat [facility] Tobacco smoking consumption unknown [facility] Start: 01-03-2025 End: 02-07-2025 History of Social function [facility] Start: 1960 [facility] at [facility] Start: 02-07-2025 Tobacco use and exposure Smokeless tobacco non-user [facility] Start: 02-07-2025 Alcoholic beverage intake Current drinker of alcohol (finding) [facility] Start: 02-07-2025 Alcohol Comment once a year, if that [facility] Start: 1960 [facility] Start: 03-02-2025 Gender identity Identifies as male gender (finding) [facility] Start: 03-02-2025 Sexual orientation Heterosexual (julito blakely) [facility] Functional Status Date Assessment Result Facility 02-28-2025 Are you deaf, or do you have serious difficulty hearing No 02/28/2025 3:36 PM EDT Latrice Hathaway, JUANA No [facility] 02-28-2025 Are you blind, or do you have serious difficulty seeing, even when wearing glasses No 02/28/2025 3:36 PM EDT Latrice Hathaway, JUANA No [facility] 02-28-2025 Do you have serious difficulty walking or climbing stairs No 02/28/2025 3:36 PM EDT Latrice Hathaway, JUANA No [facility] 02-28-2025 Do you have difficul ty dressing or bathing No 02/28/2025 3:36 PM EDT Latrice Hathaway, JUANA No [facility] 02-28-2025 Because of a physica l, mental, or emotional condition, do you have difficulty doing errands alone such as visiting a physician's office or shopping No 02/28/2025 3:36 PM EDT Latrice Hathaway, JUANA No [facility] 10-24-2024 Functional Status N/A [facility] Mental Status Date Assessment Result Facility 02-28-2025 Because of a physica l, mental, or emotional condition, do you have serious difficulty concentrating, remembering, or making decisions No 02/28/2025 3:36 PM EDT Latrice Hathaway, JUANA No [facility] Clinical Notes 10-24-2024 to 03-05-2025 Telephone Encounter - Angela Luis - 03/05/2025 1:49 PM EDTTelephone Encounter - Angela Luis - 03/05/2025 1:49 PM EDTPatient Bing Morelos MD - 01/03/2025 2:20 PM EDT Note Date & Type Note Facility 03-05-2025 Telephone encounter Note Patient needs the provider to complete FMLA paperwork for his medical leave. Patient gave provider the paperwork at his office visit on 01/03/25. Please advise [facility] 03-05-2025 Miscellaneous Notes Patient needs the provider to complete FMLA paperwork for his medical leave. Patient gave provider the paperwork at his office visit on 01/03/25. Please advise documented in this encounter [facility] 02-28-2025 Note HNO ID: [id number] Author: TAMANNA ZHU APRN.CNP Service: Urology Author Type: Nurse Practitioner Type: Progress Notes Filed: 03/10/2025 09:26 Note Text: Documentation Query Please clarify the diagnosis associated with the clinical indicators for this patient Provider Response: {Please select the appropriate option:[id number]:: Hyperkalemia supported by: Continued Lab Monitoring, Continued Symptom Monitoring, and Other, please specify treatment if hyperkalemia with IV furosemide, dextrose/insulin , This document will become part of the patient's medical record. Tamanna Zhu APRN.CNP [facility] 02-28-2025 Note HNO ID: [id number] Author: JUAN ANTONIO KATZ CPhT Service: ? Author Type: [place] Type: Plan of Care Filed: 02/28/2025 15:07 Note Text: PHARMACY BEDSIDE DELIVERY SERVICE Patient Name: Skyler Le The marked outpatient medications were Filled at: [place] and delivered to the patient's bedside to self Medication List START taking these medications acetaminophen 325 mg tablet Commonly known as: TylenoL Take 2 tablets by mouth every 6 hours as needed for pain. docusate sodium 100 mg capsule Commonly known as: COLACE Take 1 capsule by mouth two times a day for 14 days. Stop taking if you develop diarrhea or loose stools oxyCODONE IR 5 mg immediate release tablet Commonly known as: ROXICODONE Take 1 tablet by mouth every 6 hours as needed for pain for up to 3 days. CONTINUE taking these medications dutasteride 0.5 mg capsule Commonly known as: AVODART FLUoxetine 10 mg capsule Commonly known as: PROzac metFORMIN 1,000 mg tablet Commonly known as: GLUCOPHAGE metoprolol tartrate (short acting) 100 mg tablet Commonly known as: LOPRESSOR spironolactone 25 mg tablet Commonly known as: ALDACTONE tamsulosin 0.4 mg Commonly known as: FLOMAX You might also be taking other medications not listed above. If you have questions about any of your other medications, talk to the person who prescribed them or your Primary Care Provider. STOP taking these medications lisinopril-hydroCHLOROthiazide 20-12.5 mg per tablet Commonly known as: ZESTORETIC Juan Antonio Katz CPhT PAGER: [phone] February 28, 2025 3:07 PM [facility] 02-28-2025 Note HNO ID: [id number] Author: BING ARVIZU MD Service: Urology Author Type: Physician Type: Progress Notes Filed: 02/28/2025 07:52 Note Text: COUNTS INCLUDE 234 BEDS AT THE [facility] UROLOGY PROGRESS NOTE Name: Skyler Le Bed: [id number] Date: 02/28/2025 After Hours [facility] Urology Service Pager: [phone] ASSESSMENT AND PLAN Skyler Le is a 65 year old male with PMHx of left renal mass biopsy proven RCC with sarcomatoid differentiation now 1 Day Post-Op s/p robotic left radical nephrectomy and RPLND Interval Doing well, surprised at how little pain he has Has not ambulated AF VSS on CPAP overnight HH 9.2 from 10.3 Cr 1.99 from 1.52 K 5.8, will treat, touch of lasix and insulin/D5 UOP 2L Diet - K controlled diet Activity - OOB to chair and Ambulate with assistance DVT prophylaxis - Heparin SQ and PAS Stockings on Antibiotics - Perioperative antibiotics Drains - Murguia to be removed today once ambulating Discharge planning - D/c today versus tomorrow pending diet, ambulation, pain control Dallas Bullard MD Urology Resident (PGY-5) For weekend or after 5pm issues, please page the urology on-call pager at: [phone] for [facility] [phone] for [place] call taker resident/fellow/staff in [facility] for all other [facility] hospitals SUBJECTIVE -see above Objective Vital Signs BP 133/77 Pulse (!) 51 Temp 36.4 ?C (97.5 ?F) (Oral) Resp 16 Ht 182.9 cm (6' 0.01 ) Wt 124.7 kg (275 lb) SpO2 97% BMI 37.29 kg/m? Body mass index is 37.29 kg/m?. Input and Output Intake/Output Summary (Last 24 hours) at 02/28/2025 0747 Last data filed at 02/28/2025 0659 Gross per 24 hour Intake 4070 ml Output 2000 ml Net 2070 ml Physical Exam General: Well-appearing, no acute distress CV: RRR, warm well perfused Lungs: No IWOB, no audible wheezing, equilateral chest rise Abdomen: Soft, non-tender, non-distended Wound: Incision clean, dry, and intact : Murguia catheter present and Urine clear Extremities: Normal. No cyanosis, clubbing, or edema Recent Labs 02/28/25 0553 02/27/25 1234 WBC 12.56* 13.92* HB 9.2* 10.3* HCT 30.1* 32.1* PLT 243 264 NA 134* 135* K 5.8* 5.4* CHLOR 101 102 CO2 22 22 BUN 29* 27* CREAT 1.99* 1.52* GLUC 142* 178* Imaging reviewed Dallas Bullard MD Personal Pager: For weekend or after 5pm issues, please page the urology on-call pager at: [phone] for [facility] [phone] for [place] call taker resident/fellow/staff in [facility] for all other [facility] hospitals The above noted history, physical, assessment and plan were reviewed with the provider and critical portions of the HANDP were confirmed. I agree with the plan above and provided direct supervision of the above provider during this patient's care. Bnig Arvizu MD [facility] 02-27-2025 Note HNO ID: [id number] Author: BETH MASTERSON DO Service: Nursing Author Type: Anesthesiologist Type: Anesthesia Procedure Notes Filed: 02/28/2025 07:22 Note Text: ANESTHESIOLOGY PROCEDURE NOTE A-Line General Information Procedure Start Time/Medication Administration: 02/27/2025 8:00 AM Procedure End Time: 02/27/2025 8:05 AM Patient location during procedure: OR Timeout Performed Pre-procedure: timeout performed Consent Obtained: Yes Indications: continuous blood pressure monitoring Staffing SRNA: Tianna Diego SRNA Performed by: ELICIA Preparation Sterility Preparation: hand hygiene performed prior to procedure, sterile gloves, drapes, and procedure tray, surgical cap used, mask used, sterile drape used during line insertion, skin prep agent completely dried prior to procedure Site Prep: Chlorhexidine Procedure Details Catheter Type: arterial line Catheter Size: 20 G Catheter Length: 5.25 in Guidewire Used: Yes Guidewire Removed Intact: Yes Laterality: right Site: radial artery Ultrasound Guided: No Line Secured: occlusive biodressing Events Events: patient tolerated procedure well with no complications Comments I supervised the procedure for the duration of anesthesia. By signing, I attest that I have identified and re-evaluated the patient immediately before the procedure of anesthesia and I am satisfied that my anesthetic plan is suitable for the patient's condition and procedure. Beth Masterson, SIGNATURE: Ciera Honeycutt APRN.CRNA PATIENT NAME: Skyler Le DATE: February 27, 2025 TIME: 9:04 AM CSN: [id number] [facility] 02-27-2025 Note HNO ID: [id number] Author: CIERA HONEYCUTT APRN.EQUIPMENT STERILIZER Service: Nursing Author Type: Nurse Electronic Coils Supervisor Type: Anesthesia Procedure Notes Filed: 02/27/2025 09:12 Note Text: ANESTHESIOLOGY PROCEDURE NOTE PIV General Information Procedure Start Time/Medication Administration: 02/27/2025 8:05 AM Procedure End Time: 02/27/2025 8:07 AM Patient Location: OR Staffing SRNA: Tianna Diego SRNA Performed by: ELICIA Preparation Sterility Preparation: hand hygiene performed prior to procedure, surgical cap used, mask used Site Prep: Chloraprep Procedure Details Indication: need for IV access Needle Size/Type: 16 gauge angiocath Orientation: Right Location: Hand Imaging Guidance Used: No SIGNATURE: Ciera Honeycutt APRN.CRNA PATIENT NAME: Skyler Le DATE: February 27, 2025 TIME: 9:03 AM CSN: [id number] [facility] 02-27-2025 Note HNO ID: [id number] Author: CIERA HONEYCUTT APRN.CRNA Service: Nursing Author Type: Nurse Electronic Coils Supervisor Type: Anesthesia Procedure Notes Filed: 02/27/2025 09:12 Note Text: ANESTHESIOLOGY PROCEDURE NOTE Airway General Information Procedure Start Time/Medication Administration: 02/27/2025 7:56 AM Procedure End Time: 02/27/2025 7:59 AM Patient location during procedure: OR Patient identity confirmed: arm band, care outreach team member and patient Staffing Anesthesiologist: Beth Masterson DO EQUIPMENT STERILIZER: Ciera Honeycutt APRN.EQUIPMENT STERILIZER SRNA: Tianna Diego SRNA Performed by: ELICIA Indications and Patient Condition Indications for airway management: anesthesia Preoxygenated: yes anesthesia circuit Patient position: sniffing Method: asleep Difficult Mask: No (two handed with oral airway) Airway Accessory: oral airway (100mm) Final Airway Details Final airway type: endotracheal airway Final Endotracheal Airway: ETT Cuffed: yes Successful intubation technique: video laryngoscopy Devices used: Glidescope and intubating stylet Endotracheal tube insertion site: oral Blade size: #4 ETT size (mm): 8.0 Measured from: lips Measurement (cm): 23 Placement verified by: chest auscultation and capnometry Cormack-Lehane Classification: grade I - full view of glottis Number of attempts at approach: 1 Airway not difficult Comments Small mouth opening, MP IV, grade 1 view with glidescope Two handed mask with oral airway SIGNATURE: Ciera Honeycutt APRN.EQUIPMENT STERILIZER PATIENT NAME: Skyler Le DATE: February 27, 2025 TIME: 9:00 AM CSN: [id number] [facility] 02-10-2025 Telephone encounter Note I have ordered two Venofer Infusions for patient . The best location for this patient [facility] to have these completed. Rob GUZMANC [facility] 02-10-2025 Miscellaneous Notes I have ordered two Venofer Infusions for patient . The best location for this patient is the [facility] to have these completed. Rob COSBY documented in this encounter [facility] 02-07-2025 Instructions Rob Romero APRN.CNP - 02/07/2025 2:16 PM EDT PATIENT PREOPERATIVE INSTRUCTIONS Bing Arvizu MD has scheduled you for your procedure at this surgery center: [facility]: [phone] --[id number] [id number]. Please check in on the 1st floor at registration desk 6. Please read below carefully for your personalized instructions. Dietary Restrictions: - No solid food after midnight. - You may have 12 ounces of clear liquids (water, clear juices such as apple juice or gatorade, carbonated beverages, clear tea, black coffee, jello) until 2 hours before scheduled arrival at facility. Medications: Unless instructed differently below, stay on all of your medications until your surgery. If you start any new medications after today's visit, please contact your surgeon. Please take these medications the morning of surgery: Prozac, Metoprolol Preoperative Instructions for Patient's with Diabetes Mellitus/ Prediabetes Oral/ Injectable Medication Instructions - Metformin - HOLD DAY OF SURGERY If you are currently using a [id number] injectable or oral medication for diabetes or weight loss such as Dulaglutide (Trulicity), Exenatide (Byetta, Bydureon), Liraglutide (Victoza, Saxenda), Semaglutide (Ozempic, Wegovy, Rybelsus), or Tirzepatide (Mounjaro), the medicine should be stopped at least 7 days before surgery. These medicines can cause food to remain in your stomach for a very long time and increase the risks from surgery and anesthesia. Not stopping the medication for a long enough time may result in your surgery being rescheduled. If you start any new medications after today's visit, please contact the surgeon's office. Blood Thinning Medications: - Stop NSAIDS (Ibuprofen, Advil, Aleve, Motrin, Celebrex, Mobic, etc.) 7 days before surgery, as directed by your surgeon. - Stop Aspirin 7 days before surgery, as directed by your surgeon. - Stop ALL herbal and dietary supplements 7 days before surgery. - You may take Tylenol (Acetaminophen) or any of your pain medications that do not contain aspirin or NSAIDS as needed. Important Reminders: - If you use CPAP/BIPAP, bring the machine with you to the surgery center. - Candy, mints, and tobacco products are NOT permitted the morning of surgery. - Hearing aids, dentures and glasses may be worn the morning of surgery. - NO jewelry, body piercings, makeup, hairpins or contacts are to be worn the day of surgery. If you develop symptoms such as a fever, cold, or flu, or have other changes to your health within TWO DAYS of scheduled surgery or the morning of surgery, please contact the surgery center above. Personal Belongings: -Please have photo ID and insurance cards. -If you do not have a copy of advance directives on file with us, please bring a copy with you on the day of surgery. - Leave ALL valuables and money at home or with family members. For Outpatient Procedures: - YOU MUST HAVE A RESPONSIBLE WOODS RIDER TAKE YOU HOME. A PHYSICIAN PRACTICE COORDINATOR OR BLENDER / COOK CANNOT BE MADE A RESPONSIBLE WOODS RIDER. - We recommend that a responsible person stays with you overnight to take care of you. - You cannot stay in a hotel alone after outpatient surgery. You will not be permitted to have your surgery, if you do not have someone to take care of you. Arrival Time for Surgery: - The Surgery Center or hospital where you are having surgery will call the afternoon before surgery (or Monday for Monday surgery) with a scheduled arrival time. - If you have not heard by 4 pm, please contact the surgery center above. Please be aware that emergency situations arise, which may delay or change your surgical time. If this happens, we will notify you as soon as possible and regret any inconvenience. If you already have an Advance Directive, please fax a copy to [phone] or email to for it to be added to your chart. If you do not have an Advance Directive, you can find the appropriate form and more information at [email or web address]. We recommend that you complete the Advance Directive form found on the website and bring it with you the day of your surgery. It can be witnessed and scanned into your chart that day. Rob Romero APRN.DEEP documented in this encounter [facility] 02-07-2025 History and physical note Images from the original note were not included. [facility] HISTORY AND PHYSICAL EXAMINATION SERVICE DATE: 02/07/2025 SERVICE TIME: 2:02 PM PRIMARY CARE PHYSICIAN: Jessica Davalos CNP, TYPO MACHINE OPERATOR REASON FOR VISIT: Skyler Le is a 65 year old male who is scheduled for Left - ROBOTIC LAPAROSCOPIC NEPHRECTOMY PARTIAL at the request of Dr. Bing Arvizu for consultation. My final recommendation will be communicated back to the requesting physician by way of shared medical record or letter. Assessment Patient has the following medical conditions which may affect charanjit-operative course: Depression Assessment: stable on medication Denies any suicidal ideation Type 2 diabetes mellitus without complications (HCC) Assessment: stable on oral medication To get updated labs BPH with obstruction/lower urinary tract symptoms Assessment: SEE HPI On medication Hypertension Assessment: Stable on medication Today BP: 144/72 To take medication morning of surgery Does not complain of any chest pain, shortness of breath, lower extremity edema, or palpitations ROSA M (obstructive sleep apnea) Assessment: compliant with CPAP I - PHYSICAL EVALUATION AIRWAY Patient intubated: No. Tracheostomy tube not present Mallampati: IV. TM distance: >3 FB. Neck ROM: full ROM without neurological symptoms. Mouth opening: adequate. Short neck: yes. Thick neck: yes Taylor present: no Lip Bite Test: II Microretrognathia/Micronagthia/Re cessed Chin: No DENTAL Dental findings: teeth intact. II - ANESTHESIA PLAN Anesthetic plan additional comments: *PACC/TCI - anesthesia choice. Beta Robles Monitoring Plan Post Procedure Analgesic Plan ANESTHESIA FINDINGS: Intubation History: No prior intubation Significant Anesthesia Considerations: none Airway History: No prior intubation Ku Activity Status Index: METS: Walk indoors, such as around the house (1.75 METs) Do light work around the house, such as dusting or washing dishes (2.70 METs) Take care of self; that is eating, dressing, bathing, using the toilet (2.75 METs) Walk a block or two on level ground (2.75 METs) Do moderate work around the house, such as vacuuming, sweeping floors, or carrying in groceries (3.50 METs) Do yardwork, such as raking leaves, weeding, or pushing a power mower (4.50 METs) Climb a flight of stairs or walk up a hill (5.50 METs) DASI Score: 23.45 Patient denies any chest pain or undue shortness of breath with the above physical activity. Clinical Frailty Scale: 3. Well, with treated comorbid disease STOP-Bang Score: STOP-Bang Score: 0 (ROSA M compliant with CPAP ) [id number] Score: Age: 65-74 Sex: male CHF history: No Hypertension history: Yes Stroke/TIA/thromboembolism history: No Vascular disease history: No Diabetes history: Yes [id number] Score: 3 ARISCAT Score: Age: 51-80 Preoperative SpO2: >=96% Respiratory infection in the last month: No Preoperative anemia: No Surgical incision: upper abdominal Duration of surgery: >3 hrs Emergency procedure: No ARISCAT Score: 41 Prepared for surgery: This patient is optimally prepared for surgery pending LABS and EKG. CONSULTS: Patient does not require consults for optimization at this time. The Following Tests/Procedures Have Been Initiated: Orders Placed This Encounter Iron and TIBC Standing Status: Future Expected Date: 02/07/2025 Expiration Date: 05/09/2025 Ferritin Standing Status: Future Expected Date: 02/07/2025 Expiration Date: 05/09/2025 Hemoglobin A1C Standing Status: Future Expected Date: 02/07/2025 Expiration Date: 05/09/2025 dutasteride (AVODART) 0.5 mg capsule Sig: Take 0.5 mg by mouth once daily. tamsulosin (FLOMAX) 0.4 mg Sig: Take 1 capsule by mouth every 12 hours. spironolactone (ALDACTONE) 25 mg tablet Sig: Take 25 mg by mouth two times a day. metoprolol succinate ER (TOPROL XL) 100 mg Sig: Take 100 mg by mouth once daily. metFORMIN (GLUCOPHAGE) 1,000 mg tablet Sig: Take 500 mg by mouth two times a day. lisinopril-hydroCHLOROthiazide (ZESTORETIC) 20-12.5 mg per tablet Sig: Take 1 tablet by mouth once daily. FLUoxetine (PROZAC) 10 mg capsule Sig: Take 10 mg by mouth once daily. ECG (IN OFFICE) Planned Anesthetic: Per anesthesia choice Subjective CHIEF COMPLAINT: Neoplasm of left kidney HPI: 64 year old male with a hx of BPH w/ LUTS presenting for evaluation of a renal mass seen on CT A/P on 12/14/2024. The patient reports that a renal tumor was discovered following an episode of hematuria. Initial evaluation included a cystoscopy and urine cytology, which were negative for malignant cells. Subsequent CT imaging revealed a renal tumor REVIEW OF SYSTEMS: PAIN ASSESSMENT: General: No weight loss, malaise or fevers. Neuro: No history of TIA's, stroke, TUBE HANDLER tumor, impaired sensorium, hemiplegia, paraplegia or quadraplegia. No neurological symptoms or problems. Respiratory: Positive for ROSA M compliant with CPAP, Negative for No history of current cough or dyspnea, or pneumonia in the past 6 weeks. No history of respiratory/pulmonary symptoms or problems Cardiovascular: Positive for: Hypertension GI: No history of GI symptoms or problems. No history of esophageal varices, recent ascites, or ETOH greater than 2 drinks per day. : See HPI +BPH Endocrine: Diabetes Mellitus on oral agent Hematology: No history of bleeding or clotting disorder. Pt is not taking anti-coagulation or platelet medications. No history of hematological symptoms or problems. Oncology: No history of CA metastasis, chemo within 30 days, or radiotherapy within 90 days. Has not lost 10% of body wt in 6 months. No history of oncological symptoms or problems. Psych: Depression Marijuana use: No Musculoskeletal: Negative for joint pain or swelling, back pain or muscle pain. Skin: Negative for lesions, rash and itching. Implanted Devices: No The patient has the following: ACTIVE PROBLEM LIST Bph With Obstruction/Lower Urinary Tract Symptoms Depression Type 2 Diabetes Mellitus Without Complications (Hcc) Hypertension Rosa M (Obstructive Sleep Apnea) Class 2 Obesity Due to Excess Calories Without Serious Comorbidity in Adult Covid Immunization Dates Current Care Gaps Covid-19 Vaccine ( season) Overdue since 12/31/2024 07/02/2024 Imm Admin: COVID-19 original vaccine, full dose, monovalent (MODERNA) 06/29/2024 Outside Immunization: COVID-19, subunit, rS-nanoparticle, adjuvanted, PF, 5 mcg/0.5 mL 07/08/2023 Imm Admin: COVID-19 vaccine, age 12+ yr (MODERNA) 07/30/2022 Imm Admin: COVID-19 vaccine, age 12+ yr, bivalent ([facility]) 02/26/2022 Imm Admin: COVID-19 original vaccine, age 12+ yr, monovalent ([facility] - [facility]) Only the first 5 history entries have been loaded, but more history exists. PAST MEDICAL HISTORY Diagnosis Date Depression Diabetes (HCC) Hypertension ROSA M on CPAP PAST SURGICAL HISTORY Procedure Laterality Date COLONOSCOPY SCREENING KIDNEY BIOPSY 01/24/2025 No family history on file. Social History Tobacco Use Smoking status: Never Smokeless tobacco: Never Substance Use Topics Alcohol use: Yes Comment: once a year, if that Drug use: Not Currently Prior to Admission medications as of 02/07/25 1405 Medication Sig Last Dose Taking dutasteride (AVODART) 0.5 mg capsule Take 0.5 mg by mouth once daily. Yes tamsulosin (FLOMAX) 0.4 mg Take 1 capsule by mouth every 12 hours. Yes spironolactone (ALDACTONE) 25 mg tablet Take 25 mg by mouth two times a day. Yes metoprolol succinate ER (TOPROL XL) 100 mg Take 100 mg by mouth once daily. Yes metFORMIN (GLUCOPHAGE) 1,000 mg tablet Take 500 mg by mouth two times a day. Yes lisinopril-hydroCHLOROthiazide (ZESTORETIC) 20-12.5 mg per tablet Take 1 tablet by mouth once daily. Yes FLUoxetine (PROZAC) 10 mg capsule Take 10 mg by mouth once daily. Yes No medication comments found. ALLERGIES No Known Allergies Objective PHYSICAL EXAM: VITALS: BP 144/72 Pulse 48 Temp (Src) 98.5 (Oral) Resp 16 Ht 6' 0 (1.83m) Wt 275 lb (124.7kg) SpO2 99% BMI 37.29 kg/(m^2). General: Alert and oriented, No acute distress, Obese Skin: Normal color, no rash, no lesions. HEENT: EOM, pupils equal, round and reactive. Cardiovascular: Pulse regular. Pulse regular and PAC Lungs: Normal breath sounds, no wheezes or crackles. Abdomen: Positive bowel sounds Extremities: No deformity, no edema or tenderness, no joint swelling or clubbing. Neurological: Normal cognition and motor skills. Gait normal. No weakness or sensory deficit. Pulses: Radial pulses; left 2+ / right 2+. Diagnostic tests reviewed for today's visit: Lab Value Units Date High Low HB 11.1 g/dL 01/24/2025 17.0 13.0 HCT 35.9 % 01/24/2025 51.0 39.0 WBC 12.80 k/uL 01/24/2025 11.00 3.70 PLT 310 k/uL 01/24/2025 400 150 NA 137 mmol/L 01/24/2025 144 136 K 4.5 mmol/L 01/24/2025 5.1 3.7 GLUC 112 mg/dL 01/24/2025 99 74 BUN 24 mg/dL 01/24/2025 24 9 CREAT 1.44 mg/dL 01/24/2025 1.22 0.73 PTSEC 12.1 sec 01/24/2025 13.0 9.7 INR 1.1 no uni* 01/24/2025 1.3 0.9 APTT 31.6 sec 01/24/2025 32.4 23.0 ALT 8 U/L 01/24/2025 54 10 AST 12 U/L 01/24/2025 40 14 TBILI 0.4 mg/dL 01/24/2025 1.3 0.2 TSH No results within date range. Lab Value Units Date High Low HCGQT No results within date range. UHCG No results within date range. HCG, BODY* No results within date range. Lab Value Units Date High Low ABORHD No results within date range. ABSCREEN No results within date range. No results found for: HBA1C All in Epic Instructions Given to Patient: Instructions located in the after visit summary. Patient given verbal and written preop instructions and voices comprehension and compliance. SIGNATURE: Rob Romero APRN.CNP PATIENT NAME: Skyler Le DATE: 02/07/2025 TIME: 2:13 PM [facility] 02-07-2025 History and physical note Images from the original note were not included. [facility] HISTORY AND PHYSICAL EXAMINATION SERVICE DATE: 02/07/2025 SERVICE TIME: 2:02 PM PRIMARY CARE PHYSICIAN: Jessica Davalos CNP, DEEP REASON FOR VISIT: Skyler Le is a 65 year old male who is scheduled for Left - ROBOTIC LAPAROSCOPIC NEPHRECTOMY PARTIAL at the request of Dr. Bing Arvizu for consultation. My final recommendation will be communicated back to the requesting physician by way of shared medical record or letter. Assessment Patient has the following medical conditions which may affect charanjit-operative course: Depression Assessment: stable on medication Denies any suicidal ideation Type 2 diabetes mellitus without complications (HCC) Assessment: stable on oral medication To get updated labs BPH with obstruction/lower urinary tract symptoms Assessment: SEE HPI On medication Hypertension Assessment: Stable on medication Today BP: 144/72 To take medication morning of surgery Does not complain of any chest pain, shortness of breath, lower extremity edema, or palpitations ROSA M (obstructive sleep apnea) Assessment: compliant with CPAP I - PHYSICAL EVALUATION AIRWAY Patient intubated: No. Tracheostomy tube not present Mallampati: IV. TM distance: >3 FB. Neck ROM: full ROM without neurological symptoms. Mouth opening: adequate. Short neck: yes. Thick neck: yes Taylor present: no Lip Bite Test: II Microretrognathia/Micronagthia/Re cessed Chin: No DENTAL Dental findings: teeth intact. II - ANESTHESIA PLAN Anesthetic plan additional comments: *PACC/TCI - anesthesia choice. Beta Robles Monitoring Plan Post Procedure Analgesic Plan ANESTHESIA FINDINGS: Intubation History: No prior intubation Significant Anesthesia Considerations: none Airway History: No prior intubation Ku Activity Status Index: METS: Walk indoors, such as around the house (1.75 METs) Do light work around the house, such as dusting or washing dishes (2.70 METs) Take care of self; that is eating, dressing, bathing, using the toilet (2.75 METs) Walk a block or two on level ground (2.75 METs) Do moderate work around the house, such as vacuuming, sweeping floors, or carrying in groceries (3.50 METs) Do yardwork, such as raking leaves, weeding, or pushing a power mower (4.50 METs) Climb a flight of stairs or walk up a hill (5.50 METs) DASI Score: 23.45 Patient denies any chest pain or undue shortness of breath with the above physical activity. Clinical Frailty Scale: 3. Well, with treated comorbid disease STOP-Bang Score: STOP-Bang Score: 0 (ROSA M compliant with CPAP ) [id number] Score: Age: 65-74 Sex: male CHF history: No Hypertension history: Yes Stroke/TIA/thromboembolism history: No Vascular disease history: No Diabetes history: Yes [id number] Score: 3 ARISCAT Score: Age: 51-80 Preoperative SpO2: >=96% Respiratory infection in the last month: No Preoperative anemia: No Surgical incision: upper abdominal Duration of surgery: >3 hrs Emergency procedure: No ARISCAT Score: 41 Prepared for surgery: This patient is optimally prepared for surgery pending LABS and EKG. CONSULTS: Patient does not require consults for optimization at this time. The Following Tests/Procedures Have Been Initiated: Orders Placed This Encounter Iron and TIBC Standing Status: Future Expected Date: 02/07/2025 Expiration Date: 05/09/2025 Ferritin Standing Status: Future Expected Date: 02/07/2025 Expiration Date: 05/09/2025 Hemoglobin A1C Standing Status: Future Expected Date: 02/07/2025 Expiration Date: 05/09/2025 dutasteride (AVODART) 0.5 mg capsule Sig: Take 0.5 mg by mouth once daily. tamsulosin (FLOMAX) 0.4 mg Sig: Take 1 capsule by mouth every 12 hours. spironolactone (ALDACTONE) 25 mg tablet Sig: Take 25 mg by mouth two times a day. metoprolol succinate ER (TOPROL XL) 100 mg Sig: Take 100 mg by mouth once daily. metFORMIN (GLUCOPHAGE) 1,000 mg tablet Sig: Take 500 mg by mouth two times a day. lisinopril-hydroCHLOROthiazide (ZESTORETIC) 20-12.5 mg per tablet Sig: Take 1 tablet by mouth once daily. FLUoxetine (PROZAC) 10 mg capsule Sig: Take 10 mg by mouth once daily. ECG (IN OFFICE) Planned Anesthetic: Per anesthesia choice Subjective CHIEF COMPLAINT: Neoplasm of left kidney HPI: 64 year old male with a hx of BPH w/ LUTS presenting for evaluation of a renal mass seen on CT A/P on 12/14/2024. The patient reports that a renal tumor was discovered following an episode of hematuria. Initial evaluation included a cystoscopy and urine cytology, which were negative for malignant cells. Subsequent CT imaging revealed a renal tumor REVIEW OF SYSTEMS: PAIN ASSESSMENT: General: No weight loss, malaise or fevers. Neuro: No history of TIA's, stroke, TUBE HANDLER tumor, impaired sensorium, hemiplegia, paraplegia or quadraplegia. No neurological symptoms or problems. Respiratory: Positive for ROSA M compliant with CPAP, Negative for No history of current cough or dyspnea, or pneumonia in the past 6 weeks. No history of respiratory/pulmonary symptoms or problems Cardiovascular: Positive for: Hypertension GI: No history of GI symptoms or problems. No history of esophageal varices, recent ascites, or ETOH greater than 2 drinks per day. : See HPI +BPH Endocrine: Diabetes Mellitus on oral agent Hematology: No history of bleeding or clotting disorder. Pt is not taking anti-coagulation or platelet medications. No history of hematological symptoms or problems. Oncology: No history of CA metastasis, chemo within 30 days, or radiotherapy within 90 days. Has not lost 10% of body wt in 6 months. No history of oncological symptoms or problems. Psych: Depression Marijuana use: No Musculoskeletal: Negative for joint pain or swelling, back pain or muscle pain. Skin: Negative for lesions, rash and itching. Implanted Devices: No The patient has the following: ACTIVE PROBLEM LIST Bph With Obstruction/Lower Urinary Tract Symptoms Depression Type 2 Diabetes Mellitus Without Complications (Hcc) Hypertension Rosa M (Obstructive Sleep Apnea) Class 2 Obesity Due to Excess Calories Without Serious Comorbidity in Adult Covid Immunization Dates Current Care Gaps Covid-19 Vaccine ( season) Overdue since 12/31/2024 07/02/2024 Imm Admin: COVID-19 original vaccine, full dose, monovalent (MODERNA) 06/29/2024 Outside Immunization: COVID-19, subunit, rS-nanoparticle, adjuvanted, PF, 5 mcg/0.5 mL 07/08/2023 Imm Admin: COVID-19 vaccine, age 12+ yr (MODERNA) 07/30/2022 Imm Admin: COVID-19 vaccine, age 12+ yr, bivalent (PFIZER-BIONTECH) 02/26/2022 Imm Admin: COVID-19 original vaccine, age 12+ yr, monovalent (PFIZER-BIONTECH - FERNANDEZ TOP) Only the first 5 history entries have been loaded, but more history exists. PAST MEDICAL HISTORY Diagnosis Date Depression Diabetes (HCC) Hypertension ROSA M on CPAP PAST SURGICAL HISTORY Procedure Laterality Date COLONOSCOPY SCREENING KIDNEY BIOPSY 01/24/2025 No family history on file. Social History Tobacco Use Smoking status: Never Smokeless tobacco: Never Substance Use Topics Alcohol use: Yes Comment: once a year, if that Drug use: Not Currently Prior to Admission medications as of 02/07/25 1405 Medication Sig Last Dose Taking dutasteride (AVODART) 0.5 mg capsule Take 0.5 mg by mouth once daily. Yes tamsulosin (FLOMAX) 0.4 mg Take 1 capsule by mouth every 12 hours. Yes spironolactone (ALDACTONE) 25 mg tablet Take 25 mg by mouth two times a day. Yes metoprolol succinate ER (TOPROL XL) 100 mg Take 100 mg by mouth once daily. Yes metFORMIN (GLUCOPHAGE) 1,000 mg tablet Take 500 mg by mouth two times a day. Yes lisinopril-hydroCHLOROthiazide (ZESTORETIC) 20-12.5 mg per tablet Take 1 tablet by mouth once daily. Yes FLUoxetine (PROZAC) 10 mg capsule Take 10 mg by mouth once daily. Yes No medication comments found. ALLERGIES No Known Allergies Objective PHYSICAL EXAM: VITALS: BP 144/72 Pulse 48 Temp (Src) 98.5 (Oral) Resp 16 Ht 6' 0 (1.83m) Wt 275 lb (124.7kg) SpO2 99% BMI 37.29 kg/(m^2). General: Alert and oriented, No acute distress, Obese Skin: Normal color, no rash, no lesions. HEENT: EOM, pupils equal, round and reactive. Cardiovascular: Pulse regular. Pulse regular and PAC Lungs: Normal breath sounds, no wheezes or crackles. Abdomen: Positive bowel sounds Extremities: No deformity, no edema or tenderness, no joint swelling or clubbing. Neurological: Normal cognition and motor skills. Gait normal. No weakness or sensory deficit. Pulses: Radial pulses; left 2+ / right 2+. Diagnostic tests reviewed for today's visit: Lab Value Units Date High Low HB 11.1 g/dL 01/24/2025 17.0 13.0 HCT 35.9 % 01/24/2025 51.0 39.0 WBC 12.80 k/uL 01/24/2025 11.00 3.70 PLT 310 k/uL 01/24/2025 400 150 NA 137 mmol/L 01/24/2025 144 136 K 4.5 mmol/L 01/24/2025 5.1 3.7 GLUC 112 mg/dL 01/24/2025 99 74 BUN 24 mg/dL 01/24/2025 24 9 CREAT 1.44 mg/dL 01/24/2025 1.22 0.73 PTSEC 12.1 sec 01/24/2025 13.0 9.7 INR 1.1 no uni* 01/24/2025 1.3 0.9 APTT 31.6 sec 01/24/2025 32.4 23.0 ALT 8 U/L 01/24/2025 54 10 AST 12 U/L 01/24/2025 40 14 TBILI 0.4 mg/dL 01/24/2025 1.3 0.2 TSH No results within date range. Lab Value Units Date High Low HCGQT No results within date range. UHCG No results within date range. HCG, BODY* No results within date range. Lab Value Units Date High Low ABORHD No results within date range. ABSCREEN No results within date range. No results found for: HBA1C All in Epic Instructions Given to Patient: Instructions located in the after visit summary. Patient given verbal and written preop instructions and voices comprehension and compliance. SIGNATURE: Rob Romero APRN.CNP PATIENT NAME: Skyler Le DATE: 02/07/2025 TIME: 2:13 PM documented in this encounter [facility] 01-09-2025 Telephone encounter Note Left voice message on patients phone and also 's Irene to call [facility] to schedule his biopsy. They have left 2 messages to call to schedule appointment. [facility] 01-09-2025 Miscellaneous Notes Left voice message on patients phone and also 's Irene to call [facility] to schedule his biopsy. They have left 2 messages to call to schedule appointment. documented in this encounter [facility] 01-06-2025 Telephone encounter Note Left vm for patient to call back- attempt [facility] 01-06-2025 Miscellaneous Notes Left vm for patient to call back- 1st attempt RADIOLOGIST REQUEST / APPROVAL FORM STAFF RADIOLOGIST:Max PROCEDURE TO BE DONE UNDER: US PROCEDURE REQUESTED: CORE Requested PROCEDURE: Approved TIME SLOT NEEDED: 1 Hour NOTES: Left lower pole renal mass with calyceal involvement, need to differentiate RCC versus urothelial for management. SPECIAL LABS/ PROCESSING: Routine Pre-procedure labs: CBC: ordered INR: ordered COVID: not needed SIR Bleeding risk category for this procedure: intermediate-high risk. Reference from [facility] Hydrometeorological Technician: [email or web address] STAFF SIGNATURE: Rivas Santana MD DATE: January 06, 2025 TIME: 9:21 AM BX. COORDINATOR INFORMATION LAB RESULTS: No results found for: INR No results found for: APTT No results found for: PLT No current outpatient medications on file. No current facility-administered medications for this visit. ALLERGIES No Known Allergies FILMS SENT TO WORKSTATION: GUIDELINES FOR HOLDING ANTI-PLATELET AND ANTI- COAGULATION THERAPY: none on file NURSE SIGNATURE: Sia Kendall LPN DATE: January 06, 2025 TIME: 7:59 AM Summary: Renal biopsy RADIOLOGY CALL CENTER INTAKE DATE: 01/03/2025 TIME: 3:46pm REQUESTING STAFF: Bing Arvizu MD PHONE/PAGER: [phone] SPECIFICS OF THE REQUEST: Renal Biopsy SPECIAL REQUESTS: TISSUE SAMPLE, LABWORK: N/A IS THIS REQUEST PART OF A RESEARCH PROTOCOL: No MEDICAL DIAGNOSIS: Neoplasm of uncertain behavior of left kidney TYPE AND DATE OF THE EXAM THAT IS THE BASIS OF THE REQUEST: CT Date: 12/14/2024 IMAGING: OUTSIDE [facility] Films: Where is study now: in patient's chart Note to all persons requesting biopsies: All biopsy requests will be scheduled as quickly as possible, based on the clinical urgency, availability of appointment times, the need to hold anti-thrombolytic therapy (aspirin, blood thinners) and the patient s schedule, including the 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 If a percutaneous biopsy or drainage is not felt to be safe or an alternative method for establishing a diagnosis is possible, this will be discussed directly with the requesting physician. documented in this encounter [facility] 01-06-2025 Telephone encounter Note RADIOLOGIST REQUEST / APPROVAL FORM STAFF RADIOLOGIST:Max PROCEDURE TO BE DONE UNDER: US PROCEDURE REQUESTED: CORE Requested PROCEDURE: Approved TIME SLOT NEEDED: 1 Hour NOTES: Left lower pole renal mass with calyceal involvement, need to differentiate RCC versus urothelial for management. SPECIAL LABS/ PROCESSING: Routine Pre-procedure labs: CBC: ordered INR: ordered COVID: not needed SIR Bleeding risk category for this procedure: intermediate-high risk. Reference from [facility] Hydrometeorological Technician: [email or web address] STAFF SIGNATURE: Rivas Santana MD DATE: January 06, 2025 TIME: 9:21 AM [facility] 01-06-2025 Telephone encounter Note BX. COORDINATOR INFORMATION LAB RESULTS: No results found for: INR No results found for: APTT No results found for: PLT No current outpatient medications on file. No current facility-administered medications for this visit. ALLERGIES No Known Allergies FILMS SENT TO WORKSTATION: GUIDELINES FOR HOLDING ANTI-PLATELET AND ANTI- COAGULATION THERAPY: none on file NURSE SIGNATURE: Sia Kendall LPN DATE: January 06, 2025 TIME: 7:59 AM [facility] 01-03-2025 Telephone encounter Note Summary: Renal biopsy RADIOLOGY CALL CENTER INTAKE DATE: 01/03/2025 TIME: 3:46pm REQUESTING STAFF: Bing Arvizu MD PHONE/PAGER: [phone] SPECIFICS OF THE REQUEST: Renal Biopsy SPECIAL REQUESTS: TISSUE SAMPLE, LABWORK: N/A IS THIS REQUEST PART OF A RESEARCH PROTOCOL: No MEDICAL DIAGNOSIS: Neoplasm of uncertain behavior of left kidney TYPE AND DATE OF THE EXAM THAT IS THE BASIS OF THE REQUEST: CT Date: 12/14/2024 IMAGING: OUTSIDE [facility] Films: Where is study now: in patient's chart Note to all persons requesting biopsies: All biopsy requests will be scheduled as quickly as possible, based on the clinical urgency, availability of appointment times, the need to hold anti-thrombolytic therapy (aspirin, blood thinners) and the patient s schedule, including the 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 If a percutaneous biopsy or drainage is not felt to be safe or an alternative method for establishing a diagnosis is possible, this will be discussed directly with the requesting physician. [facility] 01-03-2025 Note Addended by: BING STEELE on: 01/03/2025 03:33 PM Modules accepted: Orders [facility] 01-03-2025 Miscellaneous Notes Addended by: BING ARVIZU on: 01/03/2025 03:33 PM Modules accepted: Orders documented in this encounter [facility] 01-03-2025 History of Present illness Narrative COUNTS INCLUDE 234 BEDS AT THE [facility] NEW PATIENT HISTORY AND PHYSICAL EXAM PATIENT INFO: Skyler Le 64 year old REFERRING M.D.: SELF CHIEF COMPLAINT: The patient is a 64-year-old male presenting for evaluation of a renal tumor.Renal mass HISTORY: Skyler Le is a 64 year old male with a hx of BPH w/ LUTS presenting for evaluation of a renal mass seen on CT A/P on 12/14/2024. The patient reports that a renal tumor was discovered following an episode of hematuria. Initial evaluation included a cystoscopy and urine cytology, which were negative for malignant cells. Subsequent CT imaging revealed a renal tumor. He denies any prior abdominal surgeries. The patient has a history of BPH and was previously prescribed Flomax, which he discontinued approximately 1-1.5 months ago due to persistent side effects, including lightheadedness, dizziness, and nausea. He reports that the medication initially improved his symptoms, but the benefits have since diminished following discontinuation. A recent post-void residual ultrasound showed a residual volume of 37 mL, which he was informed was within normal limits. He has not yet completed recent blood work to assess renal function and denies any known renal insufficiency. He has a family history of renal issues on his mother's side, though he is uncertain of the specific diagnoses. 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 Negative urine cytology LABS No results found for: PSA No results found for: CREAT CT A/P 12/14/2024 IMPRESSION: 6.9 cm heterogenous solid mass in the mid and inferior pole of the left kidney. A concern for malignancy. Urologic consultation recommended. Left the periaortic lymphadenopathy with maximal short axis dimension of 13 mm. Metastasis needs to be excluded. No distant metastasis identified. May consider PET/CT imaging. Moderate constipation. Bilateral renal cysts. Labs: - Urine cytology: Negative for malignant cells Tests: - Cystoscopy: No malignant findings Imaging: - CT scan of the abdomen and pelvis: Left renal mass measuring approximately 7 cm with extension into the collecting system; multiple bilateral renal cysts - Ultrasound (bladder): Post-void residual volume of 37 mL (within normal limits) No past medical history on file. No past surgical history on file. REVIEW OF SYSTEMS: (positive in bold) GENERAL: Recent weight gain/loss, fatigue, weakness, fever, night sweats MUSCLE/JOINTS/BONE: Back pain, joint pain, joint swelling CARDIOVASCULAR: Chest pain, heart attack GASTROINTESTINAL: Abdominal pain, fecal incontinence HEAD & NECK: Blurry vision, double vision, cataracts, loss of vision, dryness NEUROLOGIC: Numbness, tingling SKIN: Redness, rash, nodules/bumps, hair loss, color change in hands or feet RESPIRATORY: Cough, shortness of breath ENDOCRINE: Diabetes, thyroid problems THROAT: Frequent sore throats, hoarseness PHYSICAL EXAM: General: Alert & oriented, no acute distress Skin: Normal HEENT: Pupils equal, round. Oral cavity, oropharynx clear Neck: Supple, no mass Breast: Deferred Respiratory: Clear to auscultation, bilaterally Cardiovascular: Regular rate and rhythm, no murmurs, rubs, or gallops Abdomen: Soft, non-tender, non-distended, no masses palpable, no hepatosplenomegaly, normal bowel sounds Genitourinary: Deferred MSK: Back is non-tender Extremities: No clubbing, cyanosis, or edema Constitutional: Well-nourished, No physical deformities. Normally developed. Good grooming. Neck: Neck symmetrical, not swollen, Normal tracheal position. Eyes: Normal conjunctivae, normal eyelids. Ears, Nose, Mouth, and Throat: Left ear no scars, no lesions, no masses. Right ear no scars, no lesions, no masses. Nose no scars, no lesions, no sydnee. Normal hearing. Normal lips. Respiratory: NL effort, no retraction or pursed-lip breathing Cardiovascular: Normal temperature, normal extremity pulses, no swelling, no varicosities. Skin: No paleness, no jaundice, no cyanosis. No lesion, no ulcer, no rash Lymphatic: No enlargement of neck, axillae, groin. Neurologic/Psychiatric: Oriented to time, oriented to place, oriented to person. No depression, no anxiety, no agitation. Musculosckeletal: Normal gait and station of head and neck Extremities: Extremities normal, no deformities, edema, clubbing or skin discoloration Abdomen: Normal abdominal exam, Abdomen soft, non-tender. Bowel sounds normal. No masses, organomegaly Participation of a fellow, resident, medical student, or advanced practice provider student in performing the sensitive examination was discussed with the patient or authorized access service representative. The patient or authorized access service representative has agreed to proceed with the sensitive examination. IMPRESSION/PLAN: 64-year-old gentleman with recent gross hematuria found to have a left renal neoplasm suspicious for either renal cell carcinoma or urothelial carcinoma. We had a long discussion about the differences in management of these 2 malignancies. Patient does have diabetes. I do not have a baseline kidney function. Recommend baseline BMP today. Also recommend percutaneous biopsy to determine if urothelial versus renal cell carcinoma. If it is a renal cell can consider partial nephrectomy given the likely renal insufficiency and risks of developing it due to his diabetes and other medical conditions. If it is urothelial then he will need a robotic nephro ureterectomy. Described the procedures in detail. Will schedule him for the kidney mass biopsy as well as surgery for the kidney. Discussed R/B/A of a robotic/laparoscopic, possible open left partial nephrectomy. Discussed risks of bleeding (possibly requiring transfusion), infection, injury to adjacent structures (e.g. spleen, pancreas, aorta, among other structures). Discussed possible need for conversion to a radical nephrectomy, or conversion to an open procedure. We talked about possible medical complications including, but not limited to cardiac, respiratory and renal complications, as well as DVT/PE and other life threatening or minor complications. We talked about the possibility of urine leak and/or delayed renal bleeding requiring intervention. Patient understood these risks 1. Screening for nephropathy (Z13.89) Recent blood work pending; no known kidney function issues reported by the patient. - Ordered BMP to assess current kidney function; patient to complete lab work today. 2. 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 Differential diagnosis includes renal cell carcinoma and urothelial carcinoma. No cancer cells detected in previous urine cytology. No prior abdominal surgeries. - Ordered imaging-guided biopsy of the kidney tumor to determine histological type; results expected within 3 days post-procedure. - Scheduled surgical intervention tentatively for February 06, pending biopsy results. - Discussed potential surgical outcomes: partial nephrectomy if renal cell carcinoma is confirmed, or radical nephroureterectomy if urothelial carcinoma is identified. - Advised patient on post-biopsy care, including taking it easy for a few days to minimize bleeding risk. - Patient understands and agrees with the proposed plan. PATIENT INSTRUCTIONS: We discussed your kidney tumor: - The tumor in your left kidney is approximately 7 centimeters in size. Based on its location and characteristics, it may be either kidney cancer or urothelial cancer. - A biopsy of the tumor has been ordered to determine the type of cancer. This will help guide the surgical plan. The biopsy will be performed by a radiologist within the next two weeks. You will be contacted to schedule this procedure. - The biopsy will involve numbing the area and inserting a needle through your side to collect samples. You may need to take it easy for a few days afterward due to the risk of bleeding. The radiologist will provide specific post-procedure instructions. - Once the biopsy results are available (typically within three days), we will determine whether surgery will involve removing just the tumor or the entire kidney and ureter. If the tumor is kidney cancer, we will aim to preserve as much of the kidney as possible. If it is urothelial cancer, the entire kidney and ureter will need to be removed to prevent recurrence. - Surgery is tentatively planned for mid-January. My management technician will contact you to confirm the date. We discussed your kidney function: - Blood work has been ordered to assess your current kidney function. Please complete this lab test today in the hospital lobby. - The results will help determine whether your right kidney can adequately support your body if the left kidney is removed. Your right kidney appears normal on imaging, though it is not particularly large. We discussed your history of BPH (benign prostatic hyperplasia): - You reported that Flomax caused side effects, including lightheadedness, dizziness, and nausea. You should not take Flomax due to these side effects. Next steps: - Complete your blood work today. - Await a call to schedule your kidney biopsy within the next two weeks. - My management technician will contact you to confirm the date of your surgery, tentatively planned for mid. - If you have any questions or concerns, please contact our office. The patient consented to the use of [employer] software for draft documentation of the visit consistent with [facility] s Notice of Privacy Practices. By signing my name below, I, Al Finney, attest that this documentation has been prepared under the direction and in the presence of Dr. Arvizu. Electronically signed, Hu Knox Provider Attestation: Bing Aceves MD, personally performed the services described in this documentation. All medical record entries made by the scribe were at my direction and in my presence. I have reviewed the chart and discharge instructions (if applicable) and agree that the record reflects my personal performance and is accurate and complete. Dr. Bing Arvizu MD January 03, 2025 3:10 PM New Patient is sent as a consult from Dr. Bobo Acosta for my opinion regarding left renal neoplasm. My final recommendations will be communicated back to the requesting physician by way of Medical Record. documented in this encounter [facility] 01-03-2025 Note HNO ID: [id number] Author: BING ARVIZU MD Service: ? Author Type: Physician Type: Progress Notes Filed: 01/03/2025 15:11 Note Text: [facility] [place] NEW PATIENT HISTORY AND PHYSICAL EXAM PATIENT INFO: Skyler Le 64 year old REFERRING M.D.: SELF CHIEF COMPLAINT: The patient is a 64-year-old male presenting for evaluation of a renal tumor.Renal mass HISTORY: Skyler Le is a 64 year old male with a hx of BPH w/ LUTS presenting for evaluation of a renal mass seen on CT A/P on 12/14/2024. The patient reports that a renal tumor was discovered following an episode of hematuria. Initial evaluation included a cystoscopy and urine cytology, which were negative for malignant cells. Subsequent CT imaging revealed a renal tumor. He denies any prior abdominal surgeries. The patient has a history of BPH and was previously prescribed Flomax, which he discontinued approximately 1-1.5 months ago due to persistent side effects, including lightheadedness, dizziness, and nausea. He reports that the medication initially improved his symptoms, but the benefits have since diminished following discontinuation. A recent post-void residual ultrasound showed a residual volume of 37 mL, which he was informed was within normal limits. He has not yet completed recent blood work to assess renal function and denies any known renal insufficiency. He has a family history of renal issues on his mother's side, though he is uncertain of the specific diagnoses. 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 Negative urine cytology LABS No results found for: PSA No results found for: CREAT CT A/P 12/14/2024 IMPRESSION: 6.9 cm heterogenous solid mass in the mid and inferior pole of the left kidney. A concern for malignancy. Urologic consultation recommended. Left the periaortic lymphadenopathy with maximal short axis dimension of 13 mm. Metastasis needs to be excluded. No distant metastasis identified. May consider PET/CT imaging. Moderate constipation. Bilateral renal cysts. Labs: - Urine cytology: Negative for malignant cells Tests: - Cystoscopy: No malignant findings Imaging: - CT scan of the abdomen and pelvis: Left renal mass measuring approximately 7 cm with extension into the collecting system; multiple bilateral renal cysts - Ultrasound (bladder): Post-void residual volume of 37 mL (within normal limits) No past medical history on file. No past surgical history on file. REVIEW OF SYSTEMS: (positive in bold) GENERAL: Recent weight gain/loss, fatigue, weakness, fever, night sweats MUSCLE/JOINTS/BONE: Back pain, joint pain, joint swelling CARDIOVASCULAR: Chest pain, heart attack GASTROINTESTINAL: Abdominal pain, fecal incontinence HEAD AND NECK: Blurry vision, double vision, cataracts, loss of vision, dryness NEUROLOGIC: Numbness, tingling SKIN: Redness, rash, nodules/bumps, hair loss, color change in hands or feet RESPIRATORY: Cough, shortness of breath ENDOCRINE: Diabetes, thyroid problems THROAT: Frequent sore throats, hoarseness PHYSICAL EXAM: General: Alert AND oriented, no acute distress Skin: Normal HEENT: Pupils equal, round. Oral cavity, oropharynx clear Neck: Supple, no mass Breast: Deferred Respiratory: Clear to auscultation, bilaterally Cardiovascular: Regular rate and rhythm, no murmurs, rubs, or gallops Abdomen: Soft, non-tender, non-distended, no masses palpable, no hepatosplenomegaly, normal bowel sounds Genitourinary: Deferred MSK: Back is non-tender Extremities: No clubbing, cyanosis, or edema Constitutional: Well-nourished, No physical deformities. Normally developed. Good grooming. Neck: Neck symmetrical, not swollen, Normal tracheal position. Eyes: Normal conjunctivae, normal eyelids. Ears, Nose, Mouth, and Throat: Left ear no scars, no lesions, no masses. Right ear no scars, no lesions, no masses. Nose no scars, no lesions, no sydnee. Normal hearing. Normal lips. Respiratory: NL effort, no retraction or pursed-lip breathing Cardiovascular: Normal temperature, normal extremity pulses, no swelling, no varicosities. Skin: No paleness, no jaundice, no cyanosis. No lesion, no ulcer, no rash Lymphatic: No enlargement of neck, axillae, groin. Neurologic/Psychiatric: Oriented to time, oriented to place, oriented to person. No depression, no anxiety, no agitation. Musculosckeletal: Normal gait and station of head and neck Extremities: Extremities normal, no deformities, edema, clubbing or skin discoloration Abdomen: Normal abdominal exam, Abdomen soft, non-tender. Bowel sounds normal. No masses, organomegaly Participation of a fellow, resident, medical s (more content not included)... [facility] 12-20-2024 Note Patient Education Urology Transurethral Resection of the Prostate Transurethral resection of the prostate (TURP) is the removal, or resection, of part of the prostate tissue. This procedure is done to treat an enlarged prostate gland (benign prostatic hyperplasia). The goal of TURP is to remove enough prostate tissue to allow for a normal flow of urine. The procedure will allow you to empty your bladder more completely when you urinate so that you can urinate less often. In a transurethral resection, a thin telescope with a light, a camera, and an electric cutting edge (resectoscope) is passed through the urethra and into the prostate. The opening of the urethra is at the end of the penis. Tell a health care provider about: ??? Any allergies you have. ??? All medicines you are taking, including vitamins, herbs, eye drops, creams, and yxhh-hzl-jgbyoao medicines. ??? Any problems you or family members have had with anesthetic medicines. ??? Any bleeding problems you have. ??? Any surgeries you have had. ??? Any medical conditions you have. ??? Any prostate infections you have had. What are the risks? Generally, this is a safe procedure. However, problems may occur, including: ??? Infection. ??? Bleeding. ??? Allergic reactions to medicines. ??? Blood in the urine (hematuria). ??? Damage to nearby structures or organs. Other problems may occur, but they are rare. They include: ??? Dry ejaculation, or having no semen come out during orgasm. ??? Erectile dysfunction, or being unable to have or keep an erection. ??? Scarring that leads to narrowing of the urethra. This narrowing may block the flow of urine. ??? Inability to control when you urinate (incontinence). ??? Deep vein thrombosis. This is a blood clot that can develop in your leg. ??? TURP syndrome. This can happen when you lose too much sodium during or after the procedure. Some signs and symptoms of this condition include: ? Weakness. ? Headaches. ? Nausea or vomiting. ? Muscle cramping. What happens before the procedure? When to stop eating and drinking Follow instructions from your health care provider about what you may eat and drink before your procedure. These may include: ??? 8 hours before your procedure ? Stop eating most foods. Do not eat meat, fried foods, or fatty foods. ? Eat only light foods, such as toast or crackers. ? All liquids are okay except energy drinks and alcohol. ??? 6 hours before your procedure ? Stop eating. ? Drink only clear liquids, such as water, clear fruit juice, black coffee, plain tea, and sports drinks. ? Do not drink energy drinks or alcohol. ??? 2 hours before your procedure ? Stop drinking all liquids. ? You may be allowed to take medicines with small sips of water. If you do not follow your health care provider's instructions, your procedure may be delayed or canceled. Medicines Ask your health care provider about: ??? Changing or stopping your regular medicines. This is especially important if you are taking diabetes medicines or blood thinners. ??? Taking medicines such as aspirin and ibuprofen. These medicines can thin your blood. Do not take these medicines unless your health care provider tells you to take them. ??? Taking pewr-yjg-xymnhbd medicines, vitamins, herbs, and supplements. Surgery safety Ask your health care provider what steps will be taken to help prevent infection. These steps may include: ??? Removing hair at the surgery site. ??? Washing skin with a germ-killing soap. ??? Taking antibiotic medicine. General instructions ??? Do not use any products that contain nicotine or tobacco for at least 4 weeks before the procedure. These products include cigarettes, chewing tobacco, and vaping devices, such as e-cigarettes. If you need help quitting, ask your health care provider. ??? If you will be going home right after the procedure, plan to have a responsible adult: ? Take you home from the hospital or clinic. You will not be allowed to drive. ? Care for you for the time you are told. What happens during the procedure? An IV will be inserted into one of your veins. ??? You will be given one or more of the following: ? A medicine to help you relax (sedative). ? A medicine to make you fall asleep (general anesthetic). ? A medicine that is injected into your spine to numb the area below and slightly above the injection site (spinal anesthetic). ??? Your legs will be placed in foot rests (stirrups) so that your legs are apart and your knees are bent. ??? The resectoscope will be passed through your urethra to your prostate. ??? Parts of your prostate will be resected using the cutting edge of the resectoscope. ??? Fluid will be passed to rinse out the cut tissues (irrigation). ??? The resectoscope will be removed. ??? A small, thin tube (catheter) will be passed through your urethra and into your bladder. The cathete (more content not included)... [facility] 10-24-2024 Evaluation + Plan note Diagnostic Tests PendingUrine Culture 10/24/24 [facility] 10-24-2024 Hospital Discharge instructions Patient Education 10/24/2024 09:44:19 Constipation, Adult [...] as fried or sweet foods. These include guatemalan fries, hamburgers, cookies, candies, and soda. Drink enough fluid to keep your urine pale yellow. General instructions Exercise regularly or as told by your health care provider. Try to do 150 minutes of moderate exercise each week. Use the bathroom when you have the urge to go. Do not hold it in. Take cdme-aec-ieqpthc and prescription medicines only as told by [...] to keep your urine pale yellow. Take tpnj-bis-yhwtrys and prescription medicines only as told by your health care provider. This includes any fiber supplements. This information is not intended to replace advice given to you by your health care provider. Make sure you discuss any questions you have with your health care provider. Document Revised: 08/02/2023 Document Reviewed: 08/02/2023 [employer] Patient Education 2023 [employer]. 10/23/2024 16:04:03 Hematuria, Adult Hematuria, Adult Hematuria [...] Follow these instructions at home: Medicines Take ddwh-oiu-baiapho and prescription medicines only as told by [...] or the blood stops without treatment. Take zewa-okg-ndyfbhn and prescription medicines only as told by your health care provider. Drink enough fluid to keep your urine pale yellow. This information is not intended to replace advice given to you by your health care provider. Make sure you discuss any questions you have with your health care provider. Document Revised: 05/19/2021 Document Reviewed: 05/19/2021 [employer] Patient Education 2023 [employer]. Follow Up Care 10/15/2024 09:45:52 With:[facility] Address: When: Unknown Comments:For procedure as scheduled. With:[facility] Address: When: Unknown Comments:For procedure as scheduled. [facility] [employer] 10-24-2024 Note Patient Education Gastroenterology Constipation, Adult [...] as fried or sweet foods. These include guatemalan fries, hamburgers, cookies, candies, and soda. ??? Drink enough fluid to keep your urine pale yellow. General instructions ??? Exercise regularly or as told by your health care provider. Try to do 150 minutes of moderate exercise each week. ??? Use the bathroom when you have the urge to go. Do not hold it in. ??? Take zvkc-jaq-qusqwjm and prescription medicines only as told by [...] keep your urine pale yellow. ??? Take ybyg-glt-lvgidia and prescription medicines only as told by your health care provider. This includes any fiber supplements. This information is not intended to replace advice given to you by your health care provider. Make sure you discuss any questions you have with your health care provider. Document Revised: 08/02/2023 Document Reviewed: 08/02/2023 [employer] Patient Education ? 2023 [employer]. Urology Hematuria, Adult Hematuria is blood in [...] these instructions at home: Medicines ??? Take gwfw-sth-dlddurh and prescription medicines only as told by [...] back and u (more content not included)... 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 [facility] Diagnosis Renal mass, left- Primary Unspecified disorder of kidney and ureter Abnormal blood chemistry Other abnormal blood chemistry 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 [facility] Pre-op evaluation- Primary Preoperative examination, unspecified Depression, unspecified depression type Type 2 diabetes mellitus without complication, unspecified whether halfway insulin use (HCC) BPH with obstruction/lower urinary tract symptoms Hypertrophy of prostate with urinary obstruction and other lower urinary tract symptoms (LUTS) Hypertension, unspecified type ROSA M (obstructive sleep apnea) Obstructive sleep apnea (adult) (pediatric) Class 2 obesity due to excess calories without serious comorbidity in adult, unspecified BMI 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 * Assessment & Plan Note - Rob Romero APRN.CNP - 02/07/2025 2:13 PM EDTAssociated Problem(s): ROSA M (obstructive sleep apnea) Assessment: compliant with CPAP * Assessment & Plan Note - Rob Romero APRN.CNP - 02/07/2025 2:12 PM EDTAssociated Problem(s): Hypertension Assessment: Stable on medication Today BP: 144/72 To take medication morning of surgery Does not complain of any chest pain, shortness of breath, lower extremity edema, or palpitations * Assessment & Plan Note - Rob Romero APRN.CNP - 02/07/2025 2:12 PM EDTAssociated Problem(s): BPH with obstruction/lower urinary tract symptoms Assessment: SEE HPI On medication * Assessment & Plan Note - Rob Romero APRN.CNP - 02/07/2025 2:11 PM EDTAssociated Problem(s): Type 2 diabetes mellitus without complications (HCC) Assessment: stable on oral medication To get updated labs * Assessment & Plan Note - Rob Romero APRN.CNP - 02/07/2025 2:11 PM EDTAssociated Problem(s): Depression Assessment: stable on medication Denies any suicidal ideation documented in this encounter [facility] note* Diagnosis Pre-op evaluation- Primary Preoperative examination, unspecified Depression, unspecified depression type Type 2 diabetes mellitus without complication, unspecified whether 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 supervisor insulin use (HCC) BPH with obstruction/lower urinary tract symptoms Hypertrophy of prostate with urinary obstruction and other lower urinary tract symptoms (LUTS) Hypertension, unspecified type ROSA M (obstructive sleep apnea) Obstructive sleep apnea (adult) (pediatric) Class 2 obesity due to excess calories without serious comorbidity in adult, unspecified BMI Iron deficiency anemia, unspecified iron deficiency anemia type Iron deficiency anemia, unspecified iron deficiency anemia type- Primary Intestinal malabsorption, unspecified type (HCC) 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 documented in this encounter [facility] note* Diagnosis Pre-op evaluation- Primary Preoperative examination, unspecified Depression, unspecified depression type Type 2 diabetes mellitus without complication, unspecified whether 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 supervisor insulin use (HCC) BPH with obstruction/lower urinary tract symptoms Hypertrophy of prostate with urinary obstruction and other lower urinary tract symptoms (LUTS) Hypertension, unspecified type ROSA M (obstructive sleep apnea) Obstructive sleep apnea (adult) (pediatric) Class 2 obesity due to excess calories without serious comorbidity in adult, unspecified BMI Iron deficiency anemia, unspecified iron deficiency anemia type Intestinal malabsorption, unspecified type (HCC)- Primary Iron deficiency anemia, unspecified iron deficiency anemia type 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 documented in this encounter [facility] note* Diagnosis Pre-op evaluation- Primary Preoperative examination, unspecified Depression, unspecified depression type Type 2 diabetes mellitus without complication, unspecified whether halfway insulin use (HCC) BPH with obstruction/lower urinary tract symptoms Hypertrophy of prostate with urinary obstruction and other lower urinary tract symptoms (LUTS) Hypertension, unspecified type ROSA M (obstructive sleep apnea) Obstructive sleep apnea (adult) (pediatric) Class 2 obesity due to excess calories without serious comorbidity in adult, unspecified BMI Iron deficiency anemia, unspecified iron deficiency anemia type ODALIS (acute kidney injury)- Primary Acute kidney failure, unspecified documented in this encounter [facility] note* Diagnosis Pre-op evaluation- Primary Preoperative examination, unspecified Depression, unspecified depression type Type 2 diabetes mellitus without complication, unspecified whether halfway insulin use (HCC) BPH with obstruction/lower urinary tract symptoms Hypertrophy of prostate with urinary obstruction and other lower urinary tract symptoms (LUTS) Hypertension, unspecified type ROSA M (obstructive sleep apnea) Obstructive sleep apnea (adult) (pediatric) Class 2 obesity due to excess calories without serious comorbidity in adult, unspecified BMI Iron deficiency anemia, unspecified iron deficiency anemia type Hyperkalemia- Primary Hyperpotassemia documented in this encounter [facility] course Narrative No data available for this section [facility] Hospital Discharge instructions No data available for this section [facility] Progress note No data available for this section [facility] reason for visit Narrative* [place] Prior Authorization (Routine) - Authorized Specialty Diagnoses / Procedures Referred By Cassandra mccauley Referred To Contact Diagnoses Intestinal malabsorption, unspecified type (HCC) Iron deficiency anemia, unspecified iron deficiency anemia type Procedures IRON SUCROSE INJECTION PER 1 MG Rob Romero, [employer] CONSULTANT.TYPO MACHINE OPERATOR [address] [place] [address] Phone: tel: fax: Rob Romero, [employer] CONSULTANT.TYPO MACHINE OPERATOR [address] [place] [address] Phone: tel: fax: Referral ID Status Reason Start Date Expiration Date V isits Requested Visits Authorized [id number] Authorized 02/10/2025 10/01/2025 99 99 [facility] Summary Purpose Family History No Family History Records FoundNo Family History Records Found No data available for this section No data available for this section No Family History Records FoundNo Family History Records FoundNo Family History Records Found Advance Directives No Advanced Directives Records FoundNo Advanced Directives Records FoundNo Advanced Directives Records FoundNo Advanced Directives Records FoundNo Advanced Directives Records Found Additional Source Comments (unrecognized sect ion and content) No Status Records FoundNo Status Records FoundNo Status Records FoundNo Status Records FoundNo Status Records Found INFORMATION SOURCE (unrecogn ized section and content) DATE CREATED AUTHOR 09/03/2022 [facility] DATE CREATED AUTHOR AUTHOR'S ORGANIZ ATION 10/25/2024 [facility] DATE CREATED AUTHOR AUTHOR'S ORGANIZ ATION 12/21/2024 [facility] DATE CREATED AUTHOR AUTHOR'S ORGANIZ ATION 03/05/[address] [facility] DATE CREATED AUTHOR AUTHOR'S ORGANIZ ATION 03/10/2025 [facility] Patient Care team informatio n (unrecognized section and content) Airport Operations Supervisor Relationship Specialty Start Date End Date Jessica Davalos CNP [address] [id number] PCP - General Internal Medicine 02/07/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 Relationship Specialty Start Date End Date Jessica Davalos CNP [address] [place] [address] PCP - General Internal Medicine 02/07/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 Relationship Specialty Start Date End Date Jessica Davalos CNP [address] [id number] PCP - General Internal Medicine 02/07/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 Relationship Specialty Start Date End Date Jessica Davalos CNP [address] [place] [address] PCP - General Internal Medicine 02/07/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 Relationship Specialty Start Date End Date Jessica Davalos CNP [address] [place] [address] PCP - General Internal Medicine 02/07/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 Relationship Specialty Start Date End Date Jessica Davalos CNP [address] [place] [address] PCP - General Internal Medicine 02/07/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 Relationship Specialty Start Date End Date Jessica Davalos CNP [address] [place] [address] PCP - General Internal Medicine 02/07/25 Source Comments (unrecognize d section and content) In the event this informatio n is protected by the Federal Confidentiality of Alcohol and Drug Abuse Patient Records regulations: The Federal rules restrict any use of the information to criminally investigate or prosecute any alcohol or drug abuse patient.[facility] the event this information is protected by the Federal Confidentiality of Alcohol and Drug Abuse Patient Records regulations: The Federal rules restrict any use of the information to criminally investigate or prosecute any alcohol or drug abuse patient.[facility] the event this information is protected by the Federal Confidentiality of Alcohol and Drug Abuse Patient Records regulations: The Federal rules restrict any use of the information to criminally investigate or prosecute any alcohol or drug abuse patient.[facility] the event this information is protected by the Federal Confidentiality of Alcohol and Drug Abuse Patient Records regulations: The Federal rules restrict any use of the information to criminally investigate or prosecute any alcohol or drug abuse patient.[facility] the event this information is protected by the Federal Confidentiality of Alcohol and Drug Abuse Patient Records regulations: The Federal rules restrict any use of the information to criminally investigate or prosecute any alcohol or drug abuse patient.[facility] the event this information is protected by the Federal Confidentiality of Alcohol and Drug Abuse Patient Records regulations: The Federal rules restrict any use of the information to criminally investigate or prosecute any alcohol or drug abuse patient.[facility] the event this information is protected by the Federal Confidentiality of Alcohol and Drug Abuse Patient Records regulations: The Federal rules restrict any use of the information to criminally investigate or prosecute any alcohol or drug abuse patient.[facility] the event this information is protected by the Federal Confidentiality of Alcohol and Drug Abuse Patient Records regulations: The Federal rules restrict any use of the information to criminally investigate or prosecute any alcohol or drug abuse patient.[facility] the event this information is protected by the Federal Confidentiality of Alcohol and Drug Abuse Patient Records regulations: The Federal rules restrict any use of the information to criminally investigate or prosecute any alcohol or drug abuse patient.[facility] the event this information is protected by the Federal Confidentiality of Alcohol and Drug Abuse Patient Records regulations: The Federal rules restrict any use of the information to criminally investigate or prosecute any alcohol or drug abuse patient.[facility] the event this information is protected by the Federal Confidentiality of Alcohol and Drug Abuse Patient Records regulations: The Federal rules restrict any use of the information to criminally investigate or prosecute any alcohol or drug abuse patient.[facility] the event this information is protected by the Federal Confidentiality of Alcohol and Drug Abuse Patient Records regulations: The Federal rules restrict any use of the information to criminally investigate or prosecute any alcohol or drug abuse patient.[facility] the event this information is protected by the Federal Confidentiality of Alcohol and Drug Abuse Patient Records regulations: The Federal rules restrict any use of the information to criminally investigate or prosecute any alcohol or drug abuse patient.[facility] the event this information is protected by the Federal Confidentiality of Alcohol and Drug Abuse Patient Records regulations: The Federal rules restrict any use of the information to criminally investigate or prosecute any alcohol or drug abuse patient.[facility] the event this information is protected by the Federal Confidentiality of Alcohol and Drug Abuse Patient Records regulations: The Federal rules restrict any use of the information to criminally investigate or prosecute any alcohol or drug abuse patient.[facility] Reason for Visit (unrecogniz ed section and content) Reason Comments Consult Specialty Diagnoses / Procedures Referred By Cassandra t Referred To Contact Urology / UROLOGY Diagnoses Renal mass renal mass Procedures OFFICE/OUTPATIENT NEW MODERATE MDM 45 MINUTES NEW UROL Self Bing Arvizu MD [address] [place] [address] Phone: tel: fax: Referral ID Status Reason Start Date Expiration Date Visits Re quested Visits Authorized [id number] Closed 01/03/2025 10/01/2025 1 1 Reason Comments REnal Biopsy Reason Comments BIOPSY APPOINTMENT Reason Comments Pre-Op Visit Specialty Diagnoses / Procedures Referred By Cassandra mccauley Referred To Contact Anesthesiology / ANESTHESIOLOGY Diagnoses DOS 02/27 ROBOTIC LAPAROSCOPIC NEPHRECTOMY PARTIAL [30907] - Abdomen quadrant upper - Left Procedures COMPLETE PACC Bing Arvizu MD [address] [place] [address] Phone: tel: fax: 2, Pacc [address] [place] [address] Phone: tel:[phone] Referral ID Status Reason Start Date Expiration Date V isits Requested Visits Authorized [id number] New Request 02/07/2025 05/08/2025 1 1 Reason Comments Results Reason Comments Patient Update Reason Comments Patient Question FOR RECORDS PERTAINING TO PATIENTS WHO ARE [...] BE BASED ON THE PRIMARY CLINICAL RECORDS. [facility]. provides no warranty or guarantee of the accuracy or completeness of information in this document.
[2025-03-11 07:32] LABS: Basophils Absolute Auto 0.1 10^3/uL (0.0-0.1); Basophils Percent Auto 0.6 % (0.2-2.0); Eosinophils Absolute Auto 0.2 10^3/uL (0.0-0.7); Eosinophils Percent Auto 1.2 % (0.9-7.0); Hemoglobin 10.7 g/dL (14.0-18.0); Immature Granulocytes Pct Auto 2.3 % (0.0-0.5); Lymphocytes Absolute Auto 1.7 10^3/uL (1.2-3.8); Lymphocytes Percent Auto 13.1 % (20.5-60.0); Mean Corpuscular HGB Conc 31.5 g/dL (29.9-35.2); Mean Corpuscular Hemoglobin 24.7 pg (25.9-34.0); Mean Corpuscular Volume 78.5 fL (80.0-94.0); Mean Platelet Volume 9.1 fL (9.5-13.5); Monocytes Absolute Auto 0.8 10^3/uL (0.3-0.8); Monocytes Percent Auto 6.5 % (1.7-12.0); Neutrophils Absolute Auto 9.8 10^3/uL (1.4-6.5); Neutrophils Percent Auto 76.3 % (43.0-75.0); Platelet Count 384 10^3/uL (150-450); Red Blood Count 4.33 10^6/uL (4.70-6.10); Red Cell Distribution Width 16.7 % (11.0-15.0); White Blood Count 12.9 10^3/uL (4.0-11.0)
[2025-03-11 07:45] LABS: Alanine Aminotransferase 20 U/L (16-63); Albumin Globulin Ratio 0.5; Albumin Level 2.8 g/dL (3.4-5.0); Alkaline Phosphatase 84 U/L (46-116); Anion Gap 17.6; Aspartate Amino Transferase 15 U/L (15-37); BUN Creatinine Ratio 16.2; Bilirubin Total 0.2 mg/dL (0.2-1.0); Calcium 9.2 mg/dL (8.5-10.1); Carbon Dioxide 24.7 mmol/L (21.0-32.0); Chloride 99 mmol/L (98-107); Estimated GFR (African America 35 (>=60 mL/min/1.73m^2); Estimated GFR (Non-African Ame 29 (>=60 mL/min/1.73m^2); Globulin 5.1 g/dL; Glucose 166 mg/dL (74-106); Potassium 5.3 mmol/L (3.5-5.1); Sodium 136 mmol/L (136-145); Total Protein 7.9 g/dL (6.4-8.2)
[2025-03-11] MEDS: 0.9 % SODIUM CHLORIDE 1,000 ML 1000 ML IV (08:12)
[2025-03-11 09:30] LABS: Anion Gap 16.5; BUN Creatinine Ratio 17.8; Calcium 8.9 mg/dL (8.5-10.1); Carbon Dioxide 23.5 mmol/L (21.0-32.0); Chloride 102 mmol/L (98-107); Estimated GFR (African America 38 (>=60 mL/min/1.73m^2); Estimated GFR (Non-African Ame 31 (>=60 mL/min/1.73m^2); Glucose 101 mg/dL (74-106); Sodium 137 mmol/L (136-145)
--- NOTE | 2025-03-11 09:40 | ED_ITS ---
HPI HPI - General Adult General Chief complaint: Recheck/Abnormal Lab/Rx Stated complaint: abnormal lab values Time Seen by Provider: 03/11/25 07:21 Source: patient Mode of arrival: walk-in Limitations: no limitations History of Present Illness HPI narrative: The patient is coming to the ER after he recently had a blood workup showed that his potassium 6.3, patient recently had nephrectomy after concern for kidney mass, he had the procedure done February 15 and he has been watching his blood workup closely for elevated potassium The patient mentioned that he did eat over the last few days a few things that could contain potassium including broccoli and green veggies The patient denies any complaints Related Data Home Medications ?Medication ?Instructions ?Recorded ?Confirmed lisinopril 20 1 tab PO DAILY 03/01/2411/02 mg-hydrochlorothiazide 12.5 mg tablet metformin 1,000 mg tablet 1,000 mg PO BID 03/01/2407/26 spironolactone 25 mg tablet 25 mg PO Q12H 03/01/2407/26 allopurinol 300 mg tablet 600 mg PO DAILY 11/07/2407/26 fluoxetine 10 mg capsule 10 mg PO DAILY 11/07/2411/02 metoprolol succinate 100 mg 100 mg PO DAILY 11/07/24 0 11/11/24 capsule sprinkle, ext. release 24 hr Previous Rx's ?Medication ?Instructions ?Recorded ciprofloxacin HCl 500 mg tablet 500 mg PO Q12H #60 tab s 11/11/24 tamsulosin 0.4 mg capsule 0.4 mg PO .Twice daily #60 c aps 11/11/24 Allergies Allergy/AdvReac Type Severity Reaction Status Date / Time No Known Drug Allergies Allergy Verified 03/11/25 07:16 Opioid HPI Opioid Management Most Recent Opioid Data: Last Pain Scale 0 Today, 07:31 Last ED Pain Assessment Today, 07:31 Review of Systems ROS Status of ROS 10 or more systems reviewed and unremark able except as noted in history and below [facility] Medical History (Updated 03/11/25 @ 09:43 by Brianne Kunz MD) Constipation ?K59.00 - Constipation, unspecified (ICD-10) Gout ?M10.9 - Gout, unspecified (ICD-10) Depression ?F32.A - Depression, unspecified (ICD-10) Diabetes ?E11.9 - Type 2 diabetes mellitus without complications (ICD-10) BPH (benign prostatic hyperplasia) ?N40.0 - Benign prostatic hyperplasia without lower urinary tract symptoms (ICD-10) Hypertension ?I10 - Essential (primary) hypertension (ICD-10) Gross hematuria ?R31.0 - Gross hematuria (ICD-10) Surgical History (Updated 11/07/24 @ 13:38 by Cassidy Marino, RN) Hx of colonoscopy ?Z98.890 - Other specified postprocedural states (ICD-10) Family History (Updated 11/07/24 @ 13:40 by Cassidy Marino, RN) Other Family history of diabetes mellitus Family history of stroke Social History (Updated 11/11/24 @ 08:17 by Isabella Rdoriguez) Within the past year, how often did you have a drink containing alcohol: never Score interpretation: A score less than 4 is consistent with normal alcohol consumption. Smoking status: Never smoker Non-prescribed substance use: denies use Little interest or pleasure in doing things: not at all Feeling down, depressed, or hopeless: not at all Exam Narrative Exam Narrative: Nurses notes and vital signs reviewed and patient is not hypoxic. General: Well-appearing and in no apparent distress. Skin: Warm, dry, no pallor noted. No rash. Head: Normocephalic, atraumatic. Neck: Supple, non-tender. Cardiovascular: Regular Rate and Rhythm without murmur, gallop or rub. Respiratory: No accessory muscle use or respiratory distress. Lungs are clear to auscultation, no wheezing, rales or rhonchi Chest Wall: no tenderness Back: No midline thoracic or lumbar vertebral tenderness. No CVA tenderness Musculoskeletal: normal ROM, no calf or popliteal tenderness, no lower extremity edema/swelling GI: Abdomen is soft, non-distended. Normal bowel sounds. No masses appreciated. No tenderness to palpation. No rebound, guarding, or rigidity noted. Neurological: A&O x4. No cranial nerve dysfunction observed. No truncal ataxia. Moves all extremities. Sensation intact. Psychiatric: Cooperative and interactive. Normal mood and affect. Constitutional Vital Signs, click to edit/add: Last Vital Signs Temp 98.9 F 03/11/25 07:16 Pulse 50 L 03/11/25 09:00 Resp 18 03/11/25 09:00 BP 144/76 H 03/11/25 07:16 Pulse Ox 98 03/11/25 07:31 O2 Del Method Room Air 03/11/25 07:31 Course Vital Signs Vital signs: Vital Signs Temperature 98.9 F 03/11/25 07:16 Pulse Rate 77 03/11/25 07:16 Respiratory Rate 20 03/11/25 07:16 Blood Pressure 144/76 H 03/11/25 07:16 Pulse Oximetry 99 03/11/25 07:16 Oxygen Delivery Method Room Air 03/11/25 07:16 Temperature 98.9 F 03/11/25 07:16 Pulse Rate 50 L 03/11/25 09:00 Respiratory Rate 18 03/11/25 09:00 Blood Pressure 144/76 H 03/11/25 07:16 Pulse Oximetry 98 03/11/25 07:31 Oxygen Delivery Method Room Air 03/11/25 07:31 Medical Decision Making MDM Narrative Medical decision making narrative: The patient blood workup showed that the potassium was 5.3 in addition to a mild acute kidney injury with creatinine of 2.2 I did review the patient blood work recently the potassium was 6.3 yesterday in addition to 2.1 creatinine Patient was provided with 1 L of fluid after which his potassium was 5 The patient EKG showed no acute elevation of the ST or any T wave peaking that could correlate with elevated potassium and the heart rate was 55 The patient was discharged to continue avoiding any potassium containing food in addition to. He had his lisinopril stopped by his primary care Patient will follow-up with his urologist in 3 days I tried calling his urologist Dr.Al salazar in [facility] for review and he was out of the office The patient is to follow up with primary care physician in next 2-3 days or to return to the emergency department should any of the signs or symptoms worsen or new symptoms develop. The patient agrees with the following Diagnosis and Treatment plan and the patient will be discharged home. Lab Data Labs: Lab Results 03/11/25 03/11/25 Range/Units 07:22 09:18 WBC 12.9 H (4.0-11.0) 10^3/uL RBC 4.33 L (4.70-6.10) 10^6/uL Hgb 10.7 L (14.0-18.0) g/dL Hct 34.0 L (42.0-54.0) % MCV 78.5 L (80.0-94.0) fL MCH 24.7 L (25.9-34.0) pg MCHC 31.5 (29.9-35.2) g/dL RDW 16.7 H (11.0-15.0) % Plt Count 384 (150-450) 10^3/uL MPV 9.1 L (9.5-13.5) fL Neut % (Auto) 76.3 H (43.0-75.0) % Lymph % (Auto) 13.1 L (20.5-60.0) % Clarke % (Auto) 6.5 (1.7-12.0) % Eos % (Auto) 1.2 (0.9-7.0) % Baso % (Auto) 0.6 (0.2-2.0) % Neut # (Auto) 9.8 H (1.4-6.5) 10^3/uL Lymph # (Auto) 1.7 (1.2-3.8) 10^3/uL Clarke # (Auto) 0.8 (0.3-0.8) 10^3/uL Eos # (Auto) 0.2 (0.0-0.7) 10^3/uL Baso # (Auto) 0.1 (0.0-0.1) 10^3/uL Abs Immat Gran (auto) 0.30 H (0.00-0.03) 10^3/uL Imm/Tot Granulo (auto) 2.3 H (0.0-0.5) % Sodium 136 137 (136-145) mmol/L Potassium 5.3 H 5.0 (3.5-5.1) mmol/L Chloride 99 102 (98-107) mmol/L Carbon Dioxide 24.7 23.5 (21.0-32.0) mmol/L Anion Gap 17.6 16.5 BUN 37.0 H 38.0 H (7.0-18.0) mg/dL Creatinine 2.29 H 2.14 H (0.70-1.30) mg/dL Est GFR ( Amer) 35 L 38 L (>=60 mL/min/1.73m^2) Est GFR (Non-Af Amer) 29 L 31 L (>=60 mL/min/1.73m^2) BUN/Creatinine Ratio 16.2 17.8 Glucose 166 H 101 (74-106) mg/dL Calcium 9.2 8.9 (8.5-10.1) mg/dL Total Bilirubin 0.2 (0.2-1.0) mg/dL AST 15 (15-37) U/L ALT 20 (16-63) U/L Alkaline Phosphatase 84 (46-116) U/L Total Protein 7.9 (6.4-8.2) g/dL Albumin 2.8 L (3.4-5.0) g/dL Globulin 5.1 g/dL Albumin/Globulin Ratio 0.5 Discharge Plan Discharge Chief Complaint: Recheck/Abnormal Lab/Rx Clinical Impression: Hyperkalemia, ODALIS (acute kidney injury) Patient Disposition: Home, Self-Care Time of Disposition Decision: 09:42 Condition: Good Prescriptions / Home Meds: No Action lisinopril-hydrochlorothiazide 20-12.5 mg tablet 1 tab PO DAILY metformin 1,000 mg tablet 1,000 mg PO BID spironolactone 25 mg tablet 25 mg PO Q12H metoprolol succinate 100 mg capsule,sprinkle,ER 24hr 100 mg PO DAILY allopurinol 300 mg tablet 600 mg PO DAILY fluoxetine 10 mg capsule 10 mg PO DAILY ciprofloxacin HCl 500 mg tablet 500 mg PO Q12H Qty: 60 1RF tamsulosin 0.4 mg capsule 0.4 mg PO .Twice daily Qty: 60 8RF Print Language: [place] Island[place] Instructions: Potassium Content of Foods List (ED), Hyperkalemia (ED) Referrals: JANESSA DAVALOS [Primary Care Provider, Family Practice] - 1 week Discharge Date/Time: 03/11/25 09:51
== END 2025-03-11 09:51 | disposition home or self-care (01) ==
PROVIDERS: Emergency Provider Emergency Medicine; PCP Nurse Practitioner Family
DX: E87.5 Hyperkalemia (principal); N17.9 Acute kidney failure, unspecified; R79.9 Abnormal finding of blood chemistry, unspecified
CPT/HCPCS: 36415; 80048; 80053; 85025; 93005; 99284

== ENCOUNTER 2025-03-15 10:16 | Outpatient (OUT) | payer OTHER, SELFPAY ==
--- OUTSIDE RECORDS SUMMARY | 2025-03-03 10:05 | XMS_ITS ---
Author Organization The [facility] in [place] Address [address] [place] [address] Care Team Providers Care Line Person Name Role Phone Jessica Murphy Primary Care Provider REASON FOR VISIT update from urology Medications Medication SIG (Take, Route, Frequency, Duration) Notes Start Date End Date Status Dutasteride 03/03/2025 Active Encounters Encounter Location Date Provider Diagnosis [facility] [address] [place] [address] 03/03/2025 Jessica Murphy HTN (hypertension) I10 Assessments Encounter Date Diagnosis (ICD Code) Assessment Notes Treatment Notes Treatment Clinical Notes Section Notes 03/03/2025 HTN (hypertension) (ICD-10 - I10) Plan Of Treatment Medication Medication Name Sig Start Date Stop Date Notes Dutasteride 03/03/2025 Lisinopril-hydroCHLOROthiazi de 20-12.5 MG TAKE 1 TABLET BY MOUTH DAILY Progress Notes * Skyler LE DDOB:1960 (65 yo M)Acc No.[id number]:03/03/2025 Patient: Mary Skyler BANUELOS :1960 A ge:65 Y S ex:Male Address:[address] [place] [phone] * Refills Stop Lisinopril-hydroCHLOROthiazide Tablet, 20-12.5 MG, TAKE 1 TABLET BY MOUTH DAILY Start Dutasteride * true * Date: Generated for Printi ng/Faxing/eTransmitting on: 0 03/15/2025 10:20 AM EDT
--- OUTSIDE RECORDS SUMMARY | 2025-03-04 10:04 | XMS_ITS ---
Author Organization The [facility] in [place] Address [address] [place] [address] Care Team Providers Care Flatwork Finisher Hand Name Role Phone Jessica Murphy Primary Care Provider REASON FOR VISIT b/p check Vital Signs Height 71 in 03/04/2025 Encounters Encounter Location Date Provider Diagnosis [facility] [address] [place] [address] 03/04/2025 Jessica Murphy Plan Of Treatment No Information Progress Notes * Skyler LE DDOB:1960 (65 yo M)Acc No.[id number]:03/04/2025 Patient: Mary BANUELOSSkyler :1960 A ge:65 Y S ex:Male Address:[address] [place] [phone] Subjective: * Chief Complaints: * B /p check * Medical History: * Surgical History: * Hospitalization/Major Diagno stic Procedure: * Medications: Objective: * Vitals: H t: 71 in, Ht-cm: 180.34 cm. * Physical Examination: Assessment: Plan: * Treatment: * Procedure Codes: * true * Date: Generated for Tyei ng/Faleonardog/eTransmitting on: 0 03/15/2025 10:21 AM EDT
--- OUTSIDE RECORDS SUMMARY | 2025-03-04 10:15 | XMS_ITS ---
Author Organization The [facility] in [place] Address [address] [place] [address] Care Team Providers Care Womens Volleyball Coach Name Role Phone Jessica Murphy Primary Care Provider REASON FOR VISIT bp Vital Signs Blood pressure systolic 132 mm Hg 03/04/20 25 Blood pressure diastolic 76 mm Hg 025 Height 71 in 03/04/2025 Encounters Encounter Location Date Provider Diagnosis [facility] [address] [place] [address] 03/04/2025 Jessica Murphy Plan Of Treatment No Information Progress Notes * Skyler LE DDOB:1960 (65 yo M)Acc No.[id number]:03/04/2025 UNLOCKED PROGRESS NOTE BP Check Patient: Mary BANUELOS Skyler Navarro Provider: Elle Murphy ([facility]), CONSTRUCTION CRAFT LABORER :1960 A ge:65 Y S ex:Male Date:03/04/2025 Address:[address] [place], [place] [phone] Check In:02:00 PM ESTCheck O ut:02:49 PM EST Subjective: * Chief Complaints: * 1 . Bp. * Medical History: Objective: * Vitals: H t: 71 in, BP:132/76mm Hg, Ht-cm: 180.34 cm. Assessment: Plan: * Treatment: * * Electronic signature of Julee Mireles NP, TOPPER PRESS OPERATOR AUTOMATIC.CONSTRUCTION CRAFT [id number] on 03/15/2025 at 10:21 AM EDT Sign off status: Pending Visit Status: C RICARDO (Check Out) * Provider: Elle Murphy ([facility]), CONSTRUCTION CRAFT LABORER Date: 0 03/04/2025 Generated for Rock adame/Ha/Alfonso on: 0 03/15/2025 10:21 AM EDT
--- OUTSIDE RECORDS SUMMARY | 2025-03-14 23:59 | XMS_ITS | Continuity of Care Document ---
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 Discharge Disposition: Home (Routine DC) Attending Physician: Nikolai ACOSTA MD Encounter Type: Clinic Allergies, Adverse Reactions, Alerts No Known Medication Allergies Assessment and Plan Future Appointments Appointment Date:09/26/2025 09:45:00 AM Scheduled Provider:Nikolai ACOSTA MD Location:[facility] Appointment Type:URO Office Visit Diagnostic Tests Pending * BUN 03/14/25 * Creatinine 03/14/25 * Potassium Level 03/14/25 Immunizations Given and Recorded Vaccine Date Status Refusal Reason SARS-CoV-2 (COVID-19) mRNA-1273 vaccine 07/02/24 G iven SARS-CoV-2 (COVID-19) mRNAMUL.[id number] 07/30/22 Recorded SARSCoV2 mRNA(ipokcgdtm-lgxg-tmxlea) vac 02/26/22 Recorded SARS-CoV-2 (COVID-19) mRNA BNT-162b2 vax 08/29/21 Recorded SARS-CoV-2 (COVID-19) mRNA BNT-162b2 vax 01/21/21 Recorded SARS-CoV-2 (COVID-19) mRNA BNT-162b2 vax 12/31/20 Recorded Medications acetaminophen Refills(s) 0 Start Date: 03/14/25 Status: Ordered Repeat number: 1 allopurinol 300 mg Tab Oral, Refills(s) 0 Start Date: 10/24/24 Status: Ordered Repeat number: 1 ciprofloxacin 500 mg Tab Refills(s) 0 Start Date: 03/14/25 Status: Ordered Repeat number: 1 Colace Oral, BID, Refills(s) 0 Start Date: 03/14/25 Status: Ordered Repeat number: 1 dutasteride 0.5 mg Cap 0.5 mg = 1 cap(s), Oral, Daily, X 30 day(s), # 30 cap(s), Refills(s) 11, Pharmacy: [id number], 182, cm, 12/20/24 8:18:00 EDT, Height/Length Dosing, 125.4, kg, 12/20/24 8:18:00 EDT, Weight Dosing Start Date: 12/20/24 Stop Date: 12/15/25 Status: Ordered Quantity: 30.0 Unit: cap(s) Repeat number: 12 FLUoxetine 10 mg Cap 10 mg = 1 cap(s), Refills(s) 0 Start Date: 10/24/24 Status: Ordered Repeat number: 1 hydrochlorothiazide-lisinopril 12.5 mg-20 mg Tab 1 tab(s), Refill(s) 0 Start Date: 10/24/24 Status: Ordered Repeat number: 1 metformin 1000 mg Tab 1,000 mg = 1 tab(s), Refills(s) 0 Start Date: 10/24/24 Status: Ordered Repeat number: 1 metoprolol succinate 100 mg ER Tab 100 mg = 1 tab(s), Oral, Daily, Refills(s) 0 Start Date: 10/24/24 Status: Ordered Repeat number: 1 spironolactone 25 mg Tab 25 mg, Oral, BID, Refills(s) 0 Start Date: 10/24/24 Status: Ordered Repeat number: 1 Problem List Condition Confirmation Course Effective Dates Status Health [facility] Informant Benign hypertension (high blood pressure) Confirmed Active BPH with obstruction/lower urinary tract symptoms Confirmed Active Constipation Confirmed Active Cystitis cystica Confirmed Active Depression Confirmed Active Diabetes Confirmed Active Diverticulum of urinary bladder Confirmed 11/11/24 Active Gross hematuria Confirmed Active Gout Confirmed Active Prostate cancer screening Confirmed Active Renal cell carcinoma Confirmed Active Sarcomatoid renal cell carcinoma Confirmed Active Renal mass Confirmed Active Procedures Procedure Date Related Diagnosis Body Site Status Cystoscopy 11/11/24 Completed Colonoscopy Completed Social History Social History Type Response Smoking Status Never (less than 100 in lifetime);Never; Concerns about tobacco use in household: No entered on: 12/20/24 Sex Male Sex Representation Male (finding) Hospital Discharge Instructions Patient Education 03/14/2025 08:40:04 Kidney Cancer Kidney Cancer Kidney cancer is a type of cancer in which an abnormal growth of cells (tumor) forms in one or bothkidneys. The kidneys filter waste from your blood and make urine. Kidney cancer may spread to otherparts of your body. This type of cancer may also be called renal cell carcinoma. What are the causes? The cause of this condition is not known. What increases the risk? You may be more likely to develop kidney cancer if: ??? You are over age 60. ??? You have certain conditions that are passed from parent to child (inherited). These include vonHippel-Lindau disease, tuberous sclerosis, and hereditary papillary renal carcinoma. ??? You smoke or have been exposed to certain chemicals. ??? You have advanced kidney disease, especially if you need to use a machine to clean your blood (dialysis). ??? You are obese. ??? You have high blood pressure (hypertension). ??? You are male. What are the signs or symptoms? At first, kidney cancer may not cause any symptoms. As the cancer grows, symptoms may include: ??? Blood in the urine. ??? Pain in the upper back or abdomen, just below the rib cage. You may feel pain on one or both sides of your body. ??? Tiredness (fatigue). ??? Weight loss that cannot be explained. ??? Fever. How is this diagnosed? This condition may be diagnosed based on: ??? Your symptoms. ??? Your medical history. ??? A physical exam. You may also have tests, such as: ??? Blood and urine tests. ??? X-rays. ??? Imaging tests, such as CT scans, MRIs, and PET scans. ??? Angiogram. This is when dye is injected into your blood to show your blood vessels. ??? Intravenous pyelogram. This is when dye is injected into your blood to show your kidneys and the other organs that help with making and storing urine. ??? Biopsy. This is when a piece of tissue is removed from your kidney and looked at under a microscope. Your cancer will be assessed (staged), based on how severe it is and how much it has spread. How is this treated? Treatment depends on the type and stage of the cancer. Treatment may include: ??? Surgery to remove: ??? Just the tumor (nephron-sparing surgery). ??? The entire kidney (nephrectomy). ??? The kidney, some of the healthy tissue around it, nearby lymph nodes, and sometimes the adrenalgland (radical nephrectomy). ??? Medicines to: ??? Kill cancer cells (chemotherapy). ??? Help your body's disease-fighting system (immune system) fight cancer cells. This is known as immunotherapy. ??? Radiation therapy. This uses high-energy rays to kill cancer cells. ??? Targeted therapy to only attack genes and proteins that allow a tumor to grow. This type of therapy tries to limit damage to your healthy cells. ??? Cryoablation. This uses gas or liquid to freeze cancer cells. It is sent through a needle. ??? Radiofrequency ablation. This uses high-energy radio waves to destroy cancer cells. It is sent through a needle-like probe. ??? Embolization. This is a procedure to block the artery that supplies blood to the tumor. Follow these instructions at home: Eating and drinking ??? Some of your treatments may affect your appetite and your ability to chew and swallow. If you have problems eating, or if you do not have an appetite, meet with an expert in diet and nutrition (dietitian). ??? If you have side effects that affect eating, it may help to: ??? Eat smaller meals more often. ??? Eat bland or soft foods. ??? Avoid foods that are hot, spicy, or hard to swallow. ??? Drink shakes or supplements that are high in nutrition and calories. ??? Do not drink alcohol. Lifestyle ??? Do not use any products that contain nicotine or tobacco. These products include cigarettes, chewing tobacco, and vaping devices, such as e-cigarettes. If you need help quitting, ask your health care provider. ??? Get enough sleep. Most adults need 6???8 hours of sleep each night. During treatment, you may need more sleep. General instructions ??? Take xlns-qbu-nbrezih and prescription medicines only as told by your health care provider. ??? Consider joining a support group. This can help you cope with the stress of having kidney cancer. ??? Work with your health care provider to manage any side effects of treatment. ??? Keep all follow-up visits. Your health care provider will want to make sure your treatment is working. Where to find more information ??? [place] [employer]: cancer.org ??? National Cancer [place] (NCI): cancer.gov Contact a health care provider if: ??? You bruise or bleed easily. ??? You lose weight without trying. ??? You have new or worse fatigue or weakness. ??? You have a fever. ??? Your pain suddenly increases. ??? You have more blood in your urine. ??? Your skin or the white parts of your eyes turn yellow (jaundice). Get help right away if: ??? You have chest pain. ??? You are short of breath. ??? You have irregular heartbeats (palpitations). These symptoms may be an emergency. Get help right away. Call 911. ??? Do not wait to see if the symptoms will go away. ??? Do not drive yourself to the hospital. This information is not intended to replace advice given to you by your health care provider. Make sure you discuss any questions you have with your health care provider. Document Revised: 02/28/2023 Document Reviewed: 02/28/2023 [employer] Patient Education ?? 2023 [employer]. Follow Up Care 12/20/2024 09:17:13 With:KARLA JAMES, Nikolai Berry, URL Address: [address] [place] [address]- When: Unknown Patient Care team information Care Team Personnel Name: JANESSA DAVALOS CNP Member Role: Primary Care Physician Address: [address] [facility], [facility] [address]- Telecom: Care Team Related Persons Name: TAYE LE Name: TAYE LE Insurance Providers Guarantor name: HARMAN LE [facility] Plan Information #: 1 Payer: MICHELLE Payer Identifier: [id number] Member Number: [id number] Group Number: [id number] Subscriber Identifier: [id number] Relationship to Subscriber: Self Coverage Type: PRIVATE HEALTH INSURANCE Coverage Verification Date: 25 Telecom: MICHELLE Address: NA
--- OUTSIDE RECORDS SUMMARY | 2025-03-15 10:20 | XMS_ITS | CCD ---
Author Organization [facility]iniSyne Care Team Providers Care Revenue Inspector Name Role Phone JESSICA DAVALOS Attending Unavailable SUSANNAH, JESSICA Consulting Unavailable SUSANNAH, JESSICA Primary Care Unavailable SUSANNAH, JESSICA Admitting Unavailable TIARA, NAKITA Madison Attending Unavailable SUSANNAH, JESSICA S Referring Unavailable TIARANAKITA MCGARRY Attending Unavailable NAKITA MENJIVAR E Admitting Unavailable SUSANNAH, JESSICA S Primary Care Physician Unavailable Primary Care Provider Unavailvijaya Davalos CNP, Jessica S Primary Care Provider [phone] BG NAVAS Admitting Unavailable BG NAVAS Attending Unavailable ABOUASSALY, BING Referring Unavailable ROMERO, ROB L Referring Unavailable SUSANNAH, JESSICA S Primary Care Unavailable ROMERO, ROB L Referring Unavailable SUSANNAH, JESSICA S Primary Care Unavailable ROMERO, ROB L Referring Unavailable SUSANNAH, JESSICA S Primary Care Unavailable ABOUASSALY, BING Referring Unavailable SUSANNAH, JESSICA S Primary Care Unavailable ZAJACZ, TAMANNA Referring Unavailable SUSANNAH, JESSICA S Primary Care Unavailable ZAJACZ, TAMANNA Referring Unavailable SUSANNAH, JESSICA S Primary Care Unavailable ABOUASSALY, BING Referring Unavailable ABOUASSALY, BING Attending Unavailable SELF Referring Unavailable ABOUASSALY, BING Referring Unavailable ABOUASSALY, BING Admitting Unavailable ABOUASSALY, BING Attending Unavailable SUSANNAH, JESSICA S Primary Care Unavailable Nikolai ACOSTA Attending Unavailable Nikolai ACOSTA Attending Unavailable Nikolai ACOSTA Attending Unavailable Allergies Allergy Classification Reported Allergen(s) Allergy Type Date of Onset Reaction(s) Facility (2 sources) No Known Medication Allergies; Translations: [No Known Medication Allergies] Propensity to adverse reactions (disorder) [facility] Repository (10 sources) tamsulosin; Translations: [TAMSULOSIN] Drug Allergy 5 Other: See Comments [facility] Medications Current Medications Medication Drug Class(es) Dates Sig (Normalized) Sig (Original) Acetaminophen (8 sources) Start: 03-14-2025 acetaminophen Refills(s) 0 Start Date: 03/14/25 Status: Ordered Repeat number: 1 Start: 02-28-2025 take 2 tablets by mo uth every six hours as needed acetaminophen (TYLENOL) 325 mg tablet Take 2 tablets by mouth every 6 hours as needed for pain. 40 tablet 02/28/2025 3:04 PM EDT 02/28/2025 Active allopurinol 300 mg oral tablet (3 sources) Xanthine Oxidase Inhibitor Start: 10-24-2024 allopurinol 300 mg Tab Oral, Refills(s) 0 Start Date: 10/24/24 Status: Ordered Repeat number: 1 ciprofloxacin 500 mg oral tablet (1 source) Quinolone Antimicrobial Start: 03-14-2025 ciprofloxacin 500 mg Tab Refills(s) 0 Start Date: 03/14/25 Status: Ordered Repeat number: 1 Colace (8 sources) Start: 03-14-2025 Colace Oral, B ID, Refills(s) 0 Start Date: 03/14/25 Status: Ordered Repeat number: 1 Start: 02-28-2025 End: 03-14-2025 take 1 capsule by mouth twice daily in the evening docusate sodium (COLACE) 100 mg capsule Take 1 capsule by mouth two times a day for 14 days. Stop taking if you develop diarrhea or loose stools 28 capsule 02/28/2025 3:04 PM EDT 02/28/2025 03/14/2025 Active dutasteride 0.5 mg oral capsule (14 sources) 5-alpha Reductase Inhibitor Start: 12-20-2024 End: 12-15-2025 take 1 capsule by mouth once daily dutasteride 0.5 mg Cap 0.5 mg = 1 cap(s), Oral, Daily, X 30 day(s), # 30 cap(s), Refills(s) 11, Pharmacy: [id number], 182, cm, 12/20/24 8:18:00 EDT, Height/Length Dosing, 125.4, kg, 12/20/24 8:18:00 EDT, Weight Dosing Start Date: 12/20/24 Stop Date: 12/15/25 Status: Ordered Quantity: 30.0 Unit: cap(s) Repeat number: 12 FLUoxetine 10 mg oral capsule (16 sources) Serotonin Reuptake Inhibitor Start: 10-24-2024 FLUoxetine 10 mg Cap 10 mg = 1 cap(s), Refills(s) 0 Start Date: 10/24/24 Status: Ordered Repeat number: 1 hydroCHLOROthiazide 12.5 mg / lisinopril 20 mg oral tablet (9 sources) Thiazide Diuretic, Angiotensin Converting Enzyme Inhibitor Start: 10-24-2024 hydrochlorothiazid e-lisinopril 12.5 mg-20 mg Tab 1 tab(s), Refill(s) 0 Start Date: 10/24/24 Status: Ordered Repeat number: 1 take 1 tablet by melo th once daily lisinopril-hydroCHLOROthiazide (ZESTORET IC) 20-12.5 mg per tablet Take 1 tablet by mouth once daily. Active metFORMIN hydrochloride 1000 mg oral tablet (16 sources) Biguanide Start: 10-24-2024 metformin 1000 mg Tab 1,000 mg = 1 tab(s), Refills(s) 0 Start Date: 10/24/24 Status: Ordered Repeat number: 1 metFORMIN (GLUCO PHAGE) 1,000 mg tablet Take 500 mg by mouth two times a day. Active 24 hr metoprolol succinate 100 mg extended release oral tablet (16 sources) beta-Adrenergic Robles Start: 10-24-2024 take 1 tablet by mouth once daily metoprolol succinate 100 mg ER Tab 100 mg = 1 tab(s), Oral, Daily, Refills(s) 0 Start Date: 10/24/24 Status: Ordered Repeat number: 1 take 1 tablet by mouth twice kandi [...] 03/03/2025 Active spironolactone 25 mg oral tablet (16 sources) Aldosterone Antagonist Start: 10-24-2024 take 1 tablet by mouth twice daily spironolactone 25 mg Tab 25 mg, Oral, BID, Refills(s) 0 Start Date: 10/24/24 Status: Ordered Repeat number: 1 sulfamethoxazole 800 mg / trimethoprim 160 mg oral tablet (2 sources) Dihydrofolate Reductase Inhibitor Antibacterial, Sulfonamide Antimicrobial Start: 10-24-2024 End: 11-11-2024 Bactrim D.S. 800 mg-160 mg Tab See Instructions, 24 tab(s), Refill(s) 0, 1 tab po BID x 7d, then 1 tab po QD x 10d, [facility] #[id number], 182, cm, 10/24/24 9:12:00 EST, Height/Length Dosing, 130, kg, 10/24/24 9:12:00 EST, Weight Dosing Start Date: 10/24/24 Stop Date: 11/11/24 Status: Ordered tamsulosin hydrochloride 0.4 mg oral capsule (13 sources) alpha-Adrenergic Robles Start: 11-11-2024 take 1 capsule by mouth every twelve hours tamsulosin (FLOMAX) 0.4 mg Take 1 capsule by mouth every 12 hours. 11/11/2024 Active Completed/Discontinued Medications Medication Drug Class(es) Dates Sig (Normalized) Sig (Original) 5 ml iron sucrose 20 mg/ml injection (1 source) Parenteral Iron Replacement Start: 02-17-2025 End: 02-17-2025 200 mg, INTRAVENOUS, ONCE, 1 dose, On Mon02/17/25 at 0930, May administer up to 200 mg via IV push over 5-10 minutes. Please conduct a 30 minute post-dose observation. Problems Active Problems Problem Classification Problem Date Documented Da te Episodic/Chronic Acute and unspecified renal failure (2 sources) Acute renal failure syndrome; Translations: [Acute kidney failure, unspecified] Onset: 03-04-2025 02-28-2025 Episodic Cancer of kidney and renal pelvis (3 sources) Malignant tumor of kidney; Translations: [Malignant neoplasm of unspecified kidney, except renal pelvis] Onset: 03-14-2025 Chronic Deficiency and other anemia (15 sources) Iron deficiency anemia; Translations: [Iron deficiency anemia, unspecified] Onset: 02-10-2025 02-10-2025 Episodic Deficiency and other anemia (1 source) Iron deficiency anemia, unspecified; Translations: [Iron deficiency anemia, unspecified iron deficiency anemia type] Onset: 02-10-2025 Episodic Diabetes mellitus without complication (18 sources) Type 2 diabetes mellitus; Translations: [Type 2 diabetes mellitus without complications] Onset: 02-07-2025 02-07-2025 Chronic Essential hypertension (20 sources) Benign hypertension; Translations: [Hypertensive disorder] Onset: 02-07-2025 10-24-2024 Chronic Fluid and electrolyte disorders (2 sources) Hyperkalemia; Translations: [Hyperkalemia] Onset: 03-10-2025 03-10-2025 Episodic Genitourinary symptoms and ill-defined conditions (4 sources) Beth hematuria; Translations: [Blood in urine] Onset: 10-23-2024 10-23-2024 Episodic Gout and other crystal arthropathies (1 source) Gout 11-07-2024 Chronic Hyperplasia of prostate (20 sources) Benign prostatic hypertrophy with outflow obstruction; Translations: [Benign prostatic hyperplasia with lower urinary tract symptoms] Onset: 10-24-2024 10-24-2024 Chronic Mood disorders (17 sources) Depressive disorder; Translations: [Depression, unspecified depression type] Onset: 02-07-2025 02-07-2025 Chronic Mood disorders (1 source) Mood disorders; Translations: [Depression, unspecified depression type] Onset: 02-07-2025 Neoplasms of unspecified nature or uncertain behavior (4 sources) Neoplasm of uncertain behavior of left kidney; 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] Onset: 01-03-2025 01-03-2025 Episodic Other diseases of bladder and urethra (1 source) Diverticulum of bladder Onset: 11-11-2024 03-11-2025 Chronic Other diseases of kidney and ureters (11 sources) Renal mass; Translations: [Other specified disorders [...] symptoms] Onset: 02-07-2025 Episodic Other gastrointestinal disorders (15 sources) Intestinal malabsorption; Translations: [Intestinal malabsorption, unspecified] Onset: 02-10-2025 02-10-2025 Chronic Other gastrointestinal disorders (1 source) Intestinal malabsorption, unspecified; Translations: [Intestinal malabsorption, unspecified type (HCC)] Onset: 02-10-2025 Chronic Other gastrointestinal disorders (3 sources) Constipation 10-24-2024 Episodic Other gastrointestinal disorders (1 source) Constipation, unspecified; Translations: [Constipation, unspecified] Onset: 10-24-2024 Episodic Other nutritional; endocrine; and metabolic disorders (16 sources) Obesity caused by energy imbalance; Translations: [...] done] Onset: 10-24-2024 Episodic Residual codes; unclassified (16 sources) Obstructive sleep apnea syndrome; Translations: [Obstructive sleep apnea (adult) (pediatric)] Onset: 02-07-2025 02-07-2025 Chronic Residual codes; unclassified (1 source) Obstructive sleep apnea (adult) (pediatric); Translations: [ROSA M (obstructive sleep apnea)] Onset: 02-07-2025 Chronic Unclassified (3 sources) Patient encounter status 10-24-2024 Unclassified (1 source) Class 2 obesity due to excess calories without serious comorbidity in adult, unspecified BMI; Translations: [Class 2 obesity due to excess calories without serious comorbidity in adult, unspecified BMI] Onset: 02-07-2025 Urinary tract infections (2 sources) Cystitis; Translations: [Other cystitis without hematuria] Onset: 03-14-2025 Episodic Past or Other Problems Problem Classification Problem Date Documented Da te Episodic/Chronic Unclassified (1 source) Preprocedural examination done 02-07-2025 Results Test Name Value Interpretation Reference Range Facility [facility] 03-12-2025 CNPDeepak Telephone (FVUROL) SKYLER LE ([id number]) 1960 M Date Time Provider Department 03/12/25 BING ARVIZU During your visit today, we recorded the following information about you: Darrell Justin RN 03/12/2025 1:35 PM Signed FLMA forms completed and faxed to [facility]. Fax confirmation received. Completed forms placed at the front office help to be scanned into patients chart. Darrell Justin RN Allergies As of Date: 03/12/2025 Noted Allergy Reaction FLOMAX (TAMSULOSIN) 02/27/2025 14 - Other: See Comments Comments: dizziness and back pain Date Reviewed: 02/28/2025 Reviewed by: Latrice Hathaway RN - Fully Assessed Prescriptions as of 03/12/2025 - acetaminophen (TYLENOL) 325 mg tablet Take [...] once daily. Problem List As Of Date 03/12/2025 Noted Resolved BPH with obstruction/lower urinary tract sympto*02/07/2025 Depression [F32.A] 02/07/2025 Type 2 diabetes mellitus without complications *02/07/2025 Hypertension [I10] 02/07/2025 ROSA M (obstructive sleep apnea) [G47.33] 02/07/2025 Class 2 obesity due to excess calories without *02/07/2025 Iron deficiency anemia, unspecified [D50.9] 02/10/2025 Intestinal malabsorption (HCC) [K90.9] 02/10/2025 Kidney mass [N28.89] 02/28/2025 Encounter Status:Closed by DARRELL JUSTIN on 03/12/25 [facility] ([id number]) 1960 M Date Time Provider Department 03/11/25 TAMANNA ZHU FVPRAMelanie During your visit today, we recorded the following information about you: Tamanna Zhu APRN.PATTERN SETTER 03/11/2025 9:31 AM Signed Spoke with Mr. Le this morning regarding hyperkalemia on recent labs, K 5.6 - patient is asymptomatic, confirmed has been off of his lisinopril/HCTZ since discharge. Scr is stable around 2. Ordered repeat BMP today with the understanding that if results were concerning for hyperkalemia he may need to go to the ED for further evaluation. Dr. Arvizu updated, order for BMP placed. Pt will have labs obtained today. Allergies As of Date: 03/11/2025 Noted Allergy Reaction FLOMAX (TAMSULOSIN) 02/27/2025 14 - Other: See Comments Comments: dizziness and back pain Date Reviewed: 02/28/2025 Reviewed by: Latrice Hathaway, JUANA - Fully Assessed Prescriptions as of 03/11/2025 - acetaminophen (TYLENOL) 325 mg tablet Take [...] once daily. Problem List As Of Date 03/11/2025 Noted Resolved BPH with obstruction/lower urinary tract sympto*02/07/2025 Depression [F32.A] 02/07/2025 Type 2 diabetes mellitus without complications *02/07/2025 Hypertension [I10] 02/07/2025 ROSA M (obstructive sleep apnea) [G47.33] 02/07/2025 Class 2 obesity due to excess calories without *02/07/2025 Iron deficiency anemia, unspecified [D50.9] 02/10/2025 Intestinal malabsorption (HCC) [K90.9] 02/10/2025 Kidney mass [N28.89] 02/28/2025 Other instructions from your clinician: Spoke with Mr. Le this morning regarding hyperkalemia on recent labs, K 5.6 - patient is asymptomatic, confirmed has been off of his lisinopril/HCTZ since discharge. Scr is stable around 2. Ordered repeat BMP today with the understanding that if results were concerning for hyperkalemia he may need to go to the ED for further evaluation. Dr. Arvizu updated, order for BMP placed. Pt will have labs obtained today. Encounter Status:Closed by TAMANNA ZHU on 03/11/25 [facility] CNPN Telephone (AVPRAD) SKYLER LE ([id number]) 1960 M Date Time Provider Department 03/11/25 AUREA RODRIGUEZ During your visit today, we recorded the following information about you: Aurea Rodriguez MD 03/11/2025 6:15 AM Signed Spoke with patient this morning regarding critical lab value of K 6.1. Cr continues to rise now 2.16 from 2.08, and 1.99 on discharge. Patient overall feels well. Denies any chest pain, shortness of breath, heart palpitations. Instructed patient to go to local ED for evaluation given hyperkalemia. Explained the risks of hyperkalemia including life threatening arrhythmias. Patient understands and agrees to plan. He plans to go to ED closer to home as [place] is almost an hour away. All questions answered. Patient inquiring about his pathology results, will follow up with Dr. Arvizu. Aurea Rodriguez MD Urology Resident PGY-1 Pager Allergies As of Date: 03/11/2025 Noted Allergy Reaction FLOMAX (TAMSULOSIN) 02/27/2025 14 - Other: See Comments Comments: dizziness and back pain Date Reviewed: 02/28/2025 Reviewed by: Latrice Hathaway, RN - Fully Assessed Prescriptions as of 03/11/2025 - acetaminophen (TYLENOL) 325 mg tablet Take [...] once daily. Problem List As Of Date 03/11/2025 Noted Resolved BPH with obstruction/lower urinary tract sympto*02/07/2025 Depression [F32.A] 02/07/2025 Type 2 diabetes mellitus without complications *02/07/2025 Hypertension [I10] 02/07/2025 ROSA M (obstructive sleep apnea) [G47.33] 02/07/2025 Class 2 obesity due to excess calories without *02/07/2025 Iron deficiency anemia, unspecified [D50.9] 02/10/2025 Intestinal malabsorption (HCC) [K90.9] 02/10/2025 Kidney mass [N28.89] 02/28/2025 Encounter Status:Closed by AUREA RODRIGUEZ on 03/11/25 [facility] Renal function 2000 panelon 03-10-2025 Albumin [Mass/Vol] 3.9 g/dL Normal 3.9-4.9 [facility] Comment on above: Order Comment: Speci men Type: BLOOD SPECIMEN Ordering Facility: [facility] Address: [address] [place] [address] Performed By: #### C ONABO #### [facility] [place] [id number] [address] [place] [address] [place] Anion gap [Moles/Vol] 15 mmol/L Normal 8-[address] [facility] Comment on above: Order Comment: Speci men Type: BLOOD SPECIMEN Ordering Facility: [facility] Address: [address] [place] [address] Performed By: #### C ONABO #### [facility] CLIA [id number] [address] [place] [address] [place] Calcium [Mass/Vol] 9.8 mg/dL Normal 8.5-10.2 [facility] Comment on above: Order Comment: Speci men Type: BLOOD SPECIMEN Ordering Facility: [facility] Address: [address] [place] [address] Performed By: #### C ONABO #### [facility] CLIA [id number] [address] [place] [address] [place] Chloride [Moles/Vol] 100 mmol/L Normal 98-107 [facility] Comment on above: Order Comment: Speci men Type: BLOOD SPECIMEN Ordering Facility: [facility] Address: [address] [place] [address] Performed By: #### C ONABO #### [facility] CLIA [id number] [address] [place] [address] [place] CO2 [Moles/Vol] 19 mmol/L Low 22-30 [facility] Comment on above: Order Comment: Speci men Type: BLOOD SPECIMEN Ordering Facility: [facility] Address: [address] [place] [address] Performed By: #### C ONABO #### [facility] CLIA [id number] [address] [place] [address] [place] Creatinine [Mass/Vol] 2.16 mg/dL High 0.73-1.[address] [facility] Comment on above: Order Comment: Speci men Type: BLOOD SPECIMEN Ordering Facility: [facility] Address: [address] [place] [address] Performed By: #### C ONABO #### [facility] CLIA [id number] [address] [place] [address] [place] Creatinine and Glomerular filtration rate.predicted panel (S/P/Bld) 33 mL/min/1.73m??? Low >=60 [facility] Comment on above: Order Comment: Speci men Type: BLOOD SPECIMEN Ordering Facility: [facility] Address: [address] [place] [address] Result Comment: Samantha mated Glomerular Filtration Rate [...] accurately reflect actual GFR. Performed By: #### C ONABO #### [facility] CLIA [id number] [address] [place] [address] [place] Glucose [Mass/Vol] 94 mg/dL Normal 74-99 [facility] Comment on above: Order Comment: Speci men Type: BLOOD SPECIMEN Ordering Facility: [facility] Address: [address] [place] [address] Result Comment: The [place] Diabetes Association (ADA) provides guidance for cutoff [...] Standards of Medical Care in Diabetes 2016, [place] [employer]. Diabetes Care. 2016.39(Suppl 1). Performed By: #### C ONABO #### [facility] CLIA [id number] [address] [place] [address] [place] Phosphate [Mass/Vol] 3.7 mg/dL Normal 2.7-4.8 [facility] Comment on above: Order Comment: Miguelina thomas Type: BLOOD SPECIMEN Ordering Facility: [facility] Address: [address] [place] [address] Performed By: #### C ONABO #### [facility] CLIA [id number] [address] [place] [address] [place] Potassium [Moles/Vol] 6.2 mmol/L Critically high 3.7-5.1 [facility] Comment on above: Order Comment: Speci men Type: BLOOD SPECIMEN Ordering Facility: [facility] Address: [address] [place] [address] Performed By: #### C ONABO #### [facility] CLIA [id number] [address] [place] [address] [place] Sodium [Moles/Vol] 134 mmol/L Low 136-144 [facility] Comment on above: Order Comment: Speci men Type: BLOOD SPECIMEN Ordering Facility: [facility] Address: [address] [place] [address] Performed By: #### C ONABO #### [facility] CLIA [id number] [address] [place] [address] [place] Urea nitrogen [Mass/Vol] 31 mg/dL High 9-24 [facility] Comment on above: Order Comment: Speci men Type: BLOOD SPECIMEN Ordering Facility: [facility] Address: [address] [place] [address] Performed By: #### C ONABO #### [facility] CLIA [id number] [address] [place] [address] [facility] Sarai 03-05-2025 CARLY Telephone (TAYLOR) SKYLER LE ([id number]) 1960 M Date Time Provider Department 03/05/25 BING ARVIZU During your visit today, we recorded the following information about you: Angela Lius 03/05/2025 1:52 PM Signed Patient needs the provider to complete FMLA paperwork for his medical leave. Patient gave provider the paperwork at his office visit on 01/03/25. Please advise Allergies As of Date: 03/05/2025 Noted Allergy Reaction FLOMAX (TAMSULOSIN) 02/27/2025 14 - Other: See Comments Comments: dizziness and back pain Date Reviewed: 02/28/2025 Reviewed by: Latrice Hathaway RN - Fully Assessed Reason for Visit: Patient Question [4769] Prescriptions as of 03/05/2025 - acetaminophen (TYLENOL) [...] Status:Closed by ANGELA LUIS on 03/05/25 Normal [facility] Renal function 2000 panelon 03-04-2025 Albumin [Mass/Vol] 3.6 g/dL Low 3.9-4.9 [facility] Comment on above: Order Comment: Speci men Type: TISSUE SPECIMEN Ordering Facility: [facility] Address: [address] [id number] Performed By: #### 6 6121-5 #### [facility] CLIA [id number] [address] [place] [address] [place] Anion gap [Moles/Vol] 14 mmol/L Normal 8-[address] [facility] Comment on above: Order Comment: Speci men Type: TISSUE SPECIMEN Ordering Facility: [facility] Address: [address] [place] [address] Performed By: #### 6 6121-5 #### [facility] CLIA [id number] [address] [place] [address] [place] Calcium [Mass/Vol] 9.4 mg/dL Normal 8.5-10.2 [facility] Comment on above: Order Comment: Speci men Type: TISSUE SPECIMEN Ordering Facility: [facility] Address: [address] [place] [address] Performed By: #### 6 6121-5 #### [facility] CLIA [id number] [address] [place] [address] [place] Chloride [Moles/Vol] 98 mmol/L Normal 98-107 [facility] Comment on above: Order Comment: Speci men Type: TISSUE SPECIMEN Ordering Facility: [facility] Address: [address] [place] [address] Performed By: #### 6 6121-5 #### [facility] CLIA [id number] [address] [place] [address] [place] CO2 [Moles/Vol] 21 mmol/L Low 22-30 [facility] Comment on above: Order Comment: Speci men Type: TISSUE SPECIMEN Ordering Facility: [facility] Address: [address] [place] [address] Performed By: #### 6 6121-5 #### [facility] CLIA [id number] [address] [place] [address] [place] Creatinine [Mass/Vol] 2.08 mg/dL High 0.73-1.[address] [facility] Comment on above: Order Comment: Miguelina thomas Type: TISSUE SPECIMEN Ordering Facility: [facility] Address: [address] [place] [address] Performed By: #### 6 6121-5 #### [facility] CLIA [id number] [address] [place] [address] [place] Creatinine and Glomerular filtration rate.predicted panel (S/P/Bld) 34 mL/min/1.73m??? Low >=60 [facility] Comment on above: Order Comment: Miguelina thomas Type: TISSUE SPECIMEN Ordering Facility: [facility] Address: [address] [place] [address] Result Comment: Samantha mated Glomerular Filtration Rate [...] GFR. Performed By: #### 6 6121-5 #### [facility] CLIA [id number] [address] [place] [address] [place] Glucose [Mass/Vol] 115 mg/dL High 74-99 [facility] Comment on above: Order Comment: Miguelina thomas Type: TISSUE SPECIMEN Ordering Facility: [facility] Address: [address] [place] [address] Result Comment: The [place] Diabetes Association (ADA) provides guidance for cutoff [...] Standards of Medical Care in Diabetes 2016, [place] [employer]. Diabetes Care. 2016.39(Suppl 1). Performed By: #### 6 6121-5 #### [facility] CLIA [id number] [address] [place], [place] [address] [place] Phosphate [Mass/Vol] 3.1 mg/dL Normal 2.7-4.8 [facility] Comment on above: Order Comment: Speci men Type: TISSUE SPECIMEN Ordering Facility: [facility] Address: [address] [place] [address] Performed By: #### 6 6121-5 #### [facility] CLIA [id number] [address] [place] [address] [place] Potassium [Moles/Vol] 5.6 mmol/L High 3.7-5.[address] [facility] Comment on above: Order Comment: Speci men Type: TISSUE SPECIMEN Ordering Facility: [facility] Address: [address] [place], [place] [address] Performed By: #### 6 6121-5 #### [facility] CLIA [id number] [address] [place] [address] [place] Sodium [Moles/Vol] 133 mmol/L Low 136-144 [facility] Comment on above: Order Comment: Speci men Type: TISSUE SPECIMEN Ordering Facility: [facility] Address: [address] [place], [place] [address] Performed By: #### 6 6121-5 #### [facility] CLIA [id number] [address] [place], [place] [address] [place] Urea nitrogen [Mass/Vol] 33 mg/dL High 9-24 [facility] Comment on above: Order Comment: Speci men Type: TISSUE SPECIMEN Ordering Facility: [facility] Address: [address] [place], [place] [address] Performed By: #### 6 6121-5 #### [facility] CLIA [id number] [address] [place] [address] [place] [address] [place] ANES POSTPROC EVALon 025 ANES POSTPROC EVAL HNO ID: [id number] Author: BETH MASTERSON DO Service: Anesthesiology Author Type: Anesthesiologist Type: Anesthesia Postprocedure Evaluation Filed: 02/28/2025 07:22 Note Text: POST ANESTHESIA EVALUATION NOTE : 1960 Procedure Summary Date: 02/27/25 Room / Location: ORA / [facility] OR Anesthesia Start: 743 Anesthesia Stop: 2 Procedure: ROBOTIC LAPAROSCOPIC NEPHRECTOMY RADICAL (Left) Diagnosis: [...] February 28, 2025 TIME: 7:22 AM CSN: [id number] Normal [facility] Basic metabolic 2000 panelon 02-28-2025 Anion gap [Moles/Vol] 15 mmol/L Normal 8-15 [facility] Comment on above: Order Comment: Speci men Type: BLOOD SPECIMENOrdering Facility: [facility] Address: [address] [place] [address] Performed By: #### 2 4321-2 ####[facility] [id number] [place] [id number] [place] Calcium [Mass/Vol] 8.9 mg/dL Normal 8.5-10.2 [facility] Comment on above: Order Comment: Speci men Type: BLOOD SPECIMENOrdering Facility: [facility] Address: [address] [place] [address] Performed By: #### 2 4321-2 ####[facility] [id number] [place] [id number] [place] Chloride [Moles/Vol] 99 mmol/L Normal 98-107 [facility] Comment on above: Order Comment: Speci men Type: BLOOD SPECIMENOrdering Facility: [facility] Address: [address] [place] [address] Performed By: #### 2 4321-2 ####[facility] [id number] [place] [id number] [place] CO2 [Moles/Vol] 21 mmol/L Low 22-30 [facility] Comment on above: Order Comment: Speci men Type: BLOOD SPECIMENOrdering Facility: [facility] Address: [address] [place] [address] Performed By: #### 2 4321-2 ####[facility] [id number] [place] [id number] [place] Creatinine [Mass/Vol] 2.00 mg/dL High 0.73-1.22 [facility] Comment on above: Order Comment: Speci men Type: BLOOD SPECIMENOrdering Facility: [facility] Address: [address] [place] [address] Performed By: #### 2 4321-2 ####[facility] [id number] [place] [id number] [place] Creatinine and Glomerular filtration rate.predicted panel (S/P/Bld) 36 mL/min/1.73m??? Low >=60 [facility] Comment on above: Order Comment: Speci men Type: BLOOD SPECIMENOrdering Facility: [facility] Address: [address] [place] [address] Result Comment: Samantha mated Glomerular Filtration Rate [...] actual GFR. Performed By: #### 2 4321-2 ####[facility] [id number] [place] [address] [place] Glucose [Mass/Vol] 131 mg/dL High 74-99 [facility] Comment on above: Order Comment: Miguelina thomas Type: BLOOD SPECIMENOrdering Facility: [facility] Address: [address] [place] [address] Result Comment: The [place] Diabetes Association (ADA) provides guidance for cutoff [...] Standards of Medical Care in Diabetes 2016, [place] [employer]. Diabetes Care. 2016.39(Suppl 1). Performed By: #### 2 4321-2 ####[facility] [id number] [place] [id number] [place] Potassium [Moles/Vol] 4.6 mmol/L Normal 3.7-5.1 [facility] Comment on above: Order Comment: Miguelina thomas Type: BLOOD SPECIMENOrdering Facility: [facility] Address: [address] [place] [address] Performed By: #### 2 4321-2 ####[facility] [id number] [place] [id number] [place] Sodium [Moles/Vol] 135 mmol/L Low 136-144 [facility] Comment on above: Order Comment: Speci men Type: BLOOD SPECIMENOrdering Facility: [facility] Address: [address] [place] [address] Performed By: #### 2 4321-2 ####[facility]ORYCL[facility] [id number] [place] [id number] [place] Urea nitrogen [Mass/Vol] 28 mg/dL High 9-24 [facility] Comment on above: Order Comment: Speci men Type: BLOOD SPECIMENOrdering Facility: [facility] Address: [address] [place] [address] Performed By: #### 2 4321-2 ####[facility]ORY[facility]IA [id number] [place] [address] [place] Anion gap [Moles/Vol] 11 mmol/L Normal 8-15 [facility] Comment on above: Order Comment: Speci men Type: BLOOD SPECIMENOrdering Facility: [facility] Address: [address] [place] [address] Performed By: #### 2 4321-2 ####[facility]ORYCLIA [id number] [place] [address] [place] Calcium [Mass/Vol] 8.3 mg/dL Low 8.5-10.2 [facility] Comment on above: Order Comment: Speci men Type: BLOOD SPECIMENOrdering Facility: [facility] Address: [address] [place] [address] Performed By: #### 2 4321-2 ####[facility]ORYCLIA [id number] [place] [id number] [place] Chloride [Moles/Vol] 101 mmol/L Normal 98-107 [facility] Comment on above: Order Comment: Speci men Type: BLOOD SPECIMENOrdering Facility: [facility] Address: [address] [place] [address] Performed By: #### 2 4321-2 ####[facility]ORYCLIA [id number] [place] [address] [place] CO2 [Moles/Vol] 22 mmol/L Normal 22-30 [facility] Comment on above: Order Comment: Miguelina william Type: BLOOD SPECIMENOrdering Facility: [facility] Address: [address] [place] [address] Performed By: #### 2 4321-2 ####[facility] [id number] [place] [id number] [place] Creatinine [Mass/Vol] 1.99 mg/dL High 0.73-1.22 [facility] Comment on above: Order Comment: Miguelina men Type: BLOOD SPECIMENOrdering Facility: [facility] Address: [address] [place] [address] Performed By: #### 2 4321-2 ####[facility]ORYCLIA [id number] [address] [facility] Creatinine and Glomerular filtration rate.predicted panel (S/P/Bld) 36 mL/min/1.73m??? Low >=60 [facility] Comment on above: Order Comment: Miguelina william Type: BLOOD SPECIMENOrdering Facility: [facility] Address: [address] [place] [address] Result Comment: Samantha mated Glomerular Filtration Rate [...] actual GFR. Performed By: #### 2 4321-2 ####[facility]ORYCLIA [id number] [place] [id number] [place] Glucose [Mass/Vol] 142 mg/dL High 74-99 [facility] Comment on above: Order Comment: Miguelina thomas Type: BLOOD SPECIMENOrdering Facility: [facility] Address: [address] [place] [address] Result Comment: The [place] Diabetes Association (ADA) provides guidance for cutoff [...] Standards of Medical Care in Diabetes 2016, [place] [employer]. Diabetes Care. 2016.39(Suppl 1). Performed By: #### 2 4321-2 ####[facility]ORYCLIA [id number] [place] [address] [place] Potassium [Moles/Vol] 5.8 mmol/L High 3.7-5.1 [facility] Comment on above: Order Comment: Miguelina thomas Type: BLOOD SPECIMENOrdering Facility: [facility] Address: [address] [place] [address] Performed By: #### 2 4321-2 ####[facility]ORYCL[facility] [id number] [place] [id number] [place] Sodium [Moles/Vol] 134 mmol/L Low 136-144 [facility] Comment on above: Order Comment: Miguelina thomas Type: BLOOD SPECIMENOrdering Facility: [facility] Address: [address] [place] [address] Performed By: #### 2 4321-2 ####[facility]ORYCLIA [id number] [place] [id number] [place] Urea nitrogen [Mass/Vol] 29 mg/dL High 9-24 [facility] Comment on above: Order Comment: Miguelina thomas Type: BLOOD SPECIMENOrdering Facility: [facility] Address: [facility] [place] [address] Performed By: #### 2 4321-2 ####[facility]ORYCLIA [id number] [place] [id number] [place] CBC panel Auto (Bld)on 02-28 Erythrocyte distribution width (RBC) [Ratio] 16.5 % High 11.5-15.0 [facility] Comment on above: Order Comment: Speci men Type: BLOOD SPECIMENOrdering Facility: [facility] Address: [address] [place] [address] Performed By: #### 5 8410-2 ####[facility]ORYCLIA [id number] [address] [place] Hematocrit (Bld) [Volume fraction] 30.1 % Low 39.0-51.0 [facility] Comment on above: Order Comment: Speci men Type: BLOOD SPECIMENOrdering Facility: [facility] Address: [address] [place] [address] Performed By: #### 5 8410-2 ####[facility]ORYCLIA [id number] [address] [place] Hemoglobin (Bld) [Mass/Vol] 9.2 g/dL Low 13.0-17.0 [facility] Comment on above: Order Comment: Speci men Type: BLOOD SPECIMENOrdering Facility: [facility] Address: [address] [place] [address] Performed By: #### 5 8410-2 ####[facility]ORYCLIA [id number] [place] [address] [place] MCH (RBC) [Entitic mass] 24.0 pg Low 26.0-34.0 [facility] Comment on above: Order Comment: Speci men Type: BLOOD SPECIMENOrdering Facility: [facility] Address: [address] [place] [address] Performed By: #### 5 8410-2 ####[facility]ORYCLIA [id number] [address] [place] MCHC (RBC) [Mass/Vol] 30.6 g/dL Normal 30.5-36.0 [facility] Comment on above: Order Comment: Speci men Type: BLOOD SPECIMENOrdering Facility: [facility] Address: [address] [place] [address] Performed By: #### 5 8410-2 ####[facility]ORYCLIA [id number] [place] [id number] [place] MCV (RBC) [Entitic vol] 78.4 fL Low 80.0-100.0 [facility] Comment on above: Order Comment: Speci men Type: BLOOD SPECIMENOrdering Facility: [facility] Address: [address] [place] [address] Performed By: #### 5 8410-2 ####[facility]ORYCLIA [id number] [place] [id number] [place] Nucleated RBC (Bld) [#/Vol] 10*3/uL Normal <0.01 [facility] Comment on above: Order Comment: Speci men Type: BLOOD SPECIMENOrdering Facility: [facility] Address: [address] [place] [address] Performed By: #### 5 8410-2 ####[facility]ORYCLIA [id number] [place] [address] [place] Platelet mean volume (Bld) [Entitic vol] 9.1 fL Normal 9.0-12.7 [facility] Comment on above: Order Comment: Speci men Type: BLOOD SPECIMENOrdering Facility: [facility] Address: [address] [place] [address] Performed By: #### 5 8410-2 ####[facility]ORYCLIA [id number] [place] [address] [place] Platelets (Bld) [#/Vol] 243 10*3/uL Normal 150-400 [facility] Comment on above: Order Comment: Speci men Type: BLOOD SPECIMENOrdering Facility: [facility] Address: [address] [place] [address] Performed By: #### 5 8410-2 ####[facility]ORYCLIA [id number] [place] [address] [place] RBC (Bld) [#/Vol] 3.84 10*6/uL Low 4.20-6.00 [facility] Comment on above: Order Comment: Speci men Type: BLOOD SPECIMENOrdering Facility: [facility] Address: [address] [place] [address] Performed By: #### 5 8410-2 ####[facility]ORYCLIA [id number] [place] [address] [place] WBC (Bld) [#/Vol] 12.56 10*3/uL High 3.70-11.00 [facility] Comment on above: Order Comment: Speci men Type: BLOOD SPECIMENOrdering Facility: [facility] Address: [facility] [place] [address] Performed By: #### 5 8410-2 ####[facility]ORYCLIA [id number] [place] [address] [facility] NURSING PROGon 02-28-2025 NURSING PROG HNO ID: [id number] Author: ANABEL BARNETT, JUANA Service: Nursing Author Type: Registered Nurse Type: Nursing Progress Note Filed: 02/28/2025 00:41 Note Text: 2222- BP 137/73 HR 57. metoprolol due with no parameters shiela team paged about whether to give or hold metoprolol due to pt HR. Waiting for orders 2350: BP 134/72 HR 54. Second page sent to shiela team about whether to hold or give metoprolol. Waiting for orders [facility] THERAPY NTon 02-28-2025 THERAPY NT HNO ID: [id number] Author: CAROL ARITA, NINOSKA Service: Respiratory Therapy Author Type: Registered Resp Therapist Type: Therapy (PT/OT/Speech/Resp) Filed: 02/28/2025 03:56 Note Text: RESPIRATORY THERAPY PROGRESS NOTE SERVICE DATE: 02/28/2025 SERVICE TIME: 0000 Patient has home CPAP present, shiela team paged for CPAP orders. SIGNATURE: Carol Arita RRT PATIENT NAME: Skyler Le DATE: February 28, 2025 TIME: 3:54 AM PAGER/CONTACT #: [facility] ANES PRE-OPon 02-27-2025 ANES PRE-OP HNO ID: [id number] Author: BETH MASTERSON DO Service: Anesthesiology Author Type: Anesthesiologist Type: Anesthesia Preprocedure Evaluation Filed: 02/27/2025 07:13 Note Text: ANESTHESIOLOGY DAY OF SURGERY NOTE : 1960 Procedure Information Date/Time: 02/27/25729 Procedure: ROBOTIC LAPAROSCOPIC NEPHRECTOMY PARTIAL (Left: Abdomen quadrant upper) Location: [facility] OR01A / [facility] Surgeons: Bing Arvizu [...] and consent discussed: yes. Patient / Responsible [employer] agrees to proceed: yes Patient / Surrogate [...] February 27, 2025 TIME: 7:12 AM CSN: [id number] Normal [facility] ARTERIAL BLOOD GASESon 02-27 Base deficit (BldA) [Moles/Vol] -3 mmol/L Low -2-0 [facility] Comment on above: Order Comment: Speci men Type: ARTERIAL BLOOD SPECIMENOrdering Facility: [facility] Address: [address] [place] [address] Performed By: #### A LLBG ####[facility]ORYCLIA [id number] [place] [address] [place] Calcium.ionized (Bld) [Mass/Vol] 1.24 mmol/L Normal 1.08-1.30 [facility] Comment on above: Order Comment: Speci men Type: ARTERIAL BLOOD SPECIMENOrdering Facility: [facility] Address: [address] [place] [address] Performed By: #### A LLBG ####[facility]ORYCLIA [id number] [place] [address] [place] Calcium.ionized adjusted to pH 7.4 (BldA) [Moles/Vol] 1.20 mmol/L Normal 1.08-1.30 [facility] Comment on above: Order Comment: Speci men Type: ARTERIAL BLOOD SPECIMENOrdering Facility: [facility] Address: [address] [place] [address] Performed By: #### A LLBG ####[facility]ORYCLIA [id number] [address] [place] Carboxyhemoglobin (BldA) [Mass fraction] 1.4 % Normal 0.0-2.0 [facility] Comment on above: Order Comment: Speci men Type: ARTERIAL BLOOD SPECIMENOrdering Facility: [facility] Address: [address] [place] [address] Result Comment: Carb oxyhemoglobin Reference Range for Smokers: 2.0-8.0% Performed By: #### A LLBG ####[facility]ORYCLIA [id number] [place] [address] [place] Chloride [Moles/Vol] 103 mmol/L Normal 97-105 [facility] Comment on above: Order Comment: Speci men Type: ARTERIAL BLOOD SPECIMENOrdering Facility: [facility] Address: [address] [place] [address] Performed By: #### A LLBG ####[facility]ORYCLIA [id number] [address] [place] CO2 (Bld) [Partial pressure] 41 mm Hg Normal 36-46 [facility] Comment on above: Order Comment: Speci men Type: ARTERIAL BLOOD SPECIMENOrdering Facility: [facility] Address: [address] [place] [address] Performed By: #### A LLBG ####[facility]ORYCLIA [id number] [address] [place] CO2 adjusted to patient's actual temperature (Bld) [Partial pressure] Normal [facility] Comment on above: Order Comment: Speci men Type: ARTERIAL BLOOD SPECIMENOrdering Facility: [facility] Address: [address] [place] [address] Performed By: #### A LLBG ####[facility]ORYCLIA [id number] [place] [id number] [place] Glucose [Mass/Vol] 190 mg/dL High 60-105 [facility] Comment on above: Order Comment: Speci men Type: ARTERIAL BLOOD SPECIMENOrdering Facility: [facility] Address: [address] [place] [address] Performed By: #### A LLBG ####[facility]ORYCLIA [id number] [place] [address] [place] HCO3 (Bld) [Moles/Vol] 22 mmol/L Normal 22-26 [facility] Comment on above: Order Comment: Speci men Type: ARTERIAL BLOOD SPECIMENOrdering Facility: [facility] Address: [address] [place] [address] Performed By: #### A LLBG ####[facility]ORYCLIA [id number] [place] [address] [place] Hematocrit (Bld) [Volume fraction] 33.9 % Low 39.0-51.0 [facility] Comment on above: Order Comment: Speci men Type: ARTERIAL BLOOD SPECIMENOrdering Facility: [facility] Address: [address] [place] [address] Performed By: #### A LLBG ####[facility]ORYCLIA [id number] [place] [id number] [place] Hemoglobin (Bld) [Mass/Vol] 11.0 g/dL Low 13.0-17.0 [facility] Comment on above: Order Comment: Speci men Type: ARTERIAL BLOOD SPECIMENOrdering Facility: [facility] Address: [address] [place] [address] Performed By: #### A LLBG ####[facility]ORYCLIA [id number] [place] [id number] [place] Lactate [Moles/Vol] 2.7 mmol/L High 0.5-2.2 [facility] Comment on above: Order Comment: Speci men Type: ARTERIAL BLOOD SPECIMENOrdering Facility: [facility] Address: [address] [place] [address] Performed By: #### A LLBG ####[facility]ORYCLIA [id number] [place] [id number] [place] Methemoglobin (Bld) [Mass fraction] 0.8 % Normal 0.0-1.5 [facility] Comment on above: Order Comment: Speci men Type: ARTERIAL BLOOD SPECIMENOrdering Facility: [facility] Address: [address] [place] [address] Performed By: #### A LLBG ####[facility]ORYCLIA [id number] [place] [id number] [facility] [place] Oxygen (Bld) [Partial pressure] 179 mm Hg High 85-95 [facility] Comment on above: Order Comment: Speci men Type: ARTERIAL BLOOD SPECIMENOrdering Facility: [facility] Address: [address] [place] [address] Performed By: #### A LLBG ####[facility]ORYCLIA [id number] [address] [place] Oxygen adjusted to patient's actual temperature (Bld) [Partial pressure] Normal [facility] Comment on above: Order Comment: Speci men Type: ARTERIAL BLOOD SPECIMENOrdering Facility: [facility] Address: [address] [place] [address] Performed By: #### A LLBG ####[facility]ORYCLIA [id number] [place] [id number] [place] Oxyhemoglobin (BldA) [Mass fraction] 97 % Normal 95-98 [facility] Comment on above: Order Comment: Speci men Type: ARTERIAL BLOOD SPECIMENOrdering Facility: [facility] Address: [address] [place] [address] Performed By: #### A LLBG ####[facility]ORYCLIA [id number] [place] [id number] [place] pH (Bld) 7.35 [pH] Normal 7.35-7.45 [facility] Comment on above: Order Comment: Speci men Type: ARTERIAL BLOOD SPECIMENOrdering Facility: [facility] Address: [address] [place] [address] Performed By: #### A LLBG ####[facility]ORYCLIA [id number] [place] [address] [place] pH adjusted to patient's actual temperature (Bld) Normal [facility] Comment on above: Order Comment: Speci men Type: ARTERIAL BLOOD SPECIMENOrdering Facility: [facility] Address: [address] [place] [address] Performed By: #### A LLBG ####[facility]ORYCLIA [id number] [place] [address] [place] Potassium [Moles/Vol] 5.5 mmol/L High 3.5-5.0 [facility] Comment on above: Order Comment: Speci men Type: ARTERIAL BLOOD SPECIMENOrdering Facility: [facility] Address: [address] [place] [address] Performed By: #### A LLBG ####[facility]ORYCLIA [id number] [place] [address] [place] Sodium [Moles/Vol] 135 mmol/L Low 136-144 [facility] Comment on above: Order Comment: Speci men Type: ARTERIAL BLOOD SPECIMENOrdering Facility: [facility] Address: [address] [place] [address] Performed By: #### A LLBG ####[facility]ORYCLIA [id number] [place] [address] [place] Base deficit (BldA) [Moles/Vol] -3 mmol/L Low -2-0 [facility] Comment on above: Order Comment: Speci men Type: ARTERIAL BLOOD SPECIMENOrdering Facility: [facility] Address: [address] [place] [address] Performed By: #### A LLBG ####[facility]ORYCLIA [id number] [place] [address] [place] Calcium.ionized (Bld) [Mass/Vol] 1.24 mmol/L Normal 1.08-1.30 [facility] Comment on above: Order Comment: Speci men Type: ARTERIAL BLOOD SPECIMENOrdering Facility: [facility] Address: [address] [place] [address] Performed By: #### A LLBG ####[facility]ORYCLIA [id number] [place] [address] [place] Calcium.ionized adjusted to pH 7.4 (BldA) [Moles/Vol] 1.20 mmol/L Normal 1.08-1.30 [facility] Comment on above: Order Comment: Speci men Type: ARTERIAL BLOOD SPECIMENOrdering Facility: [facility] Address: [address] [place] [address] Performed By: #### A LLBG ####[facility] LABORATORYCLIA [id number] [place] [address] [place] Carboxyhemoglobin (BldA) [Mass fraction] 0.8 % Normal 0.0-2.0 [facility] Comment on above: Order Comment: Speci men Type: ARTERIAL BLOOD SPECIMENOrdering Facility: [facility] Address: [address] [place] [address] Result Comment: Carb oxyhemoglobin Reference Range for Smokers: 2.0-8.0% Performed By: #### A LLBG ####[facility]ORATORYCLIA [id number] [place] [address] [place] Chloride [Moles/Vol] 102 mmol/L Normal 97-105 [facility] Comment on above: Order Comment: Speci men Type: ARTERIAL BLOOD SPECIMENOrdering Facility: [facility] Address: [address] [place] [address] Performed By: #### A LLBG ####[facility]ORATORYCLIA [id number] [place] [id number] [place] CO2 (Bld) [Partial pressure] 43 mm Hg Normal 36-46 [facility] Comment on above: Order Comment: Speci men Type: ARTERIAL BLOOD SPECIMENOrdering Facility: [facility] Address: [address] [place] [address] Performed By: #### A LLBG ####[facility]ORATORYCLIA [id number] [address] [place] CO2 adjusted to patient's actual temperature (Bld) [Partial pressure] Normal [facility] Comment on above: Order Comment: Speci men Type: ARTERIAL BLOOD SPECIMENOrdering Facility: [facility] Address: [address] [place] [address] Performed By: #### A LLBG ####[facility]ORATORYCLIA [id number] [place] [address] [place] Glucose [Mass/Vol] 214 mg/dL High 60-105 [facility] Comment on above: Order Comment: Speci men Type: ARTERIAL BLOOD SPECIMENOrdering Facility: [facility] Address: [address] [place] [address] Performed By: #### A LLBG ####[facility]ORATORYCLIA [id number] [place] [address] [place] HCO3 (Bld) [Moles/Vol] 22 mmol/L Normal 22-26 [facility] Comment on above: Order Comment: Speci men Type: ARTERIAL BLOOD SPECIMENOrdering Facility: [facility] Address: [address] [place] [address] Performed By: #### A LLBG ####[facility]ORATORYCLIA [id number] [place] [address] [place] Hematocrit (Bld) [Volume fraction] 33.9 % Low 39.0-51.0 [facility] Comment on above: Order Comment: Speci men Type: ARTERIAL BLOOD SPECIMENOrdering Facility: [facility] Address: [address] [place] [address] Performed By: #### A LLBG ####[facility]ORATORYCLIA [id number] [place] [id number] [place] Hemoglobin (Bld) [Mass/Vol] 11.0 g/dL Low 13.0-17.0 [facility] Comment on above: Order Comment: Speci men Type: ARTERIAL BLOOD SPECIMENOrdering Facility: [facility] Address: [address] [place] [address] Performed By: #### A LLBG ####[facility]ORATORYCLIA [id number] [place] [address] [place] Lactate [Moles/Vol] 2.2 mmol/L Normal 0.5-2.2 [facility] Comment on above: Order Comment: Speci men Type: ARTERIAL BLOOD SPECIMENOrdering Facility: [facility] Address: [address] [place] [address] Performed By: #### A LLBG ####[facility]ATORYCLIA [id number] [place] [address] [place] Methemoglobin (Bld) [Mass fraction] 0.9 % Normal 0.0-1.5 [facility] Comment on above: Order Comment: Speci men Type: ARTERIAL BLOOD SPECIMENOrdering Facility: [facility] Address: [address] [place] [address] Performed By: #### A LLBG ####[facility]ORATORYCLIA [id number] [place] [address] [place] Oxygen (Bld) [Partial pressure] 169 mm Hg High 85-95 [facility] Comment on above: Order Comment: Speci men Type: ARTERIAL BLOOD SPECIMENOrdering Facility: [facility] Address: [address] [place] [address] Performed By: #### A LLBG ####[facility]ORATORYCLIA [id number] [address] [place] Oxygen adjusted to patient's actual temperature (Bld) [Partial pressure] Normal [facility] Comment on above: Order Comment: Speci men Type: ARTERIAL BLOOD SPECIMENOrdering Facility: [facility] Address: [address] [place] [address] Performed By: #### A LLBG ####[facility]ORATORYCLIA [id number] [place] [id number] [place] Oxyhemoglobin (BldA) [Mass fraction] 97 % Normal 95-98 [facility] Comment on above: Order Comment: Speci men Type: ARTERIAL BLOOD SPECIMENOrdering Facility: [facility] Address: [address] [place] [address] Performed By: #### A LLBG ####[facility]ORATORYCLIA [id number] [place] [address] [place] pH (Bld) 7.34 [pH] Low 7.35-7.45 [facility] Comment on above: Order Comment: Speci men Type: ARTERIAL BLOOD SPECIMENOrdering Facility: [facility] Address: [address] [place] [address] Performed By: #### A LLBG ####[facility]ORATORYCLIA [id number] [address] [place] pH adjusted to patient's actual temperature (Bld) Normal [facility] Comment on above: Order Comment: Speci men Type: ARTERIAL BLOOD SPECIMENOrdering Facility: [facility] Address: [address] [place] [address] Performed By: #### A LLBG ####[facility]ATORYCLIA [id number] [place] [address] [place] Potassium [Moles/Vol] 5.9 mmol/L High 3.5-5.0 [facility] Comment on above: Order Comment: Speci men Type: ARTERIAL BLOOD SPECIMENOrdering Facility: [facility] Address: [address] [place] [address] Performed By: #### A LLBG ####[facility]ORATORYCLIA [id number] [place] [address] [place] Sodium [Moles/Vol] 135 mmol/L Low 136-144 [facility] Comment on above: Order Comment: Speci men Type: ARTERIAL BLOOD SPECIMENOrdering Facility: [facility] Address: [address] [place] [address] Performed By: #### A LLBG ####[facility]ORATORYCLIA [id number] [place] [address] [place] Base deficit (BldA) [Moles/Vol] -2 mmol/L Normal -2-0 [facility] Comment on above: Order Comment: Speci men Type: ARTERIAL BLOOD SPECIMENOrdering Facility: [facility] Address: [address] [place] [address] Performed By: #### A LLBG ####[facility]ORATORYCLIA [id number] [address] [place] Calcium.ionized (Bld) [Mass/Vol] 1.24 mmol/L Normal 1.08-1.30 [facility] Comment on above: Order Comment: Speci men Type: ARTERIAL BLOOD SPECIMENOrdering Facility: [facility] Address: [address] [place] [address] Performed By: #### A LLBG ####[facility]ORATORYCLIA [id number] [address] [place] Calcium.ionized adjusted to pH 7.4 (BldA) [Moles/Vol] 1.21 mmol/L Normal 1.08-1.30 [facility] Comment on above: Order Comment: Speci men Type: ARTERIAL BLOOD SPECIMENOrdering Facility: [facility] Address: [address] [place] [address] Performed By: #### A LLBG ####[facility]ORATORYCLIA [id number] [address] STATES OF [facility] Carboxyhemoglobin (BldA) [Mass fraction] 1.5 % Normal 0.0-2.0 [facility] Comment on above: Order Comment: Speci men Type: ARTERIAL BLOOD SPECIMENOrdering Facility: [facility] Address: [address] [place] [address] Result Comment: Carb oxyhemoglobin Reference Range for Smokers: 2.0-8.0% Performed By: #### A LLBG ####[facility]ORATORYCLIA [id number] [address] [place] Chloride [Moles/Vol] 103 mmol/L Normal 97-105 [facility] Comment on above: Order Comment: Speci men Type: ARTERIAL BLOOD SPECIMENOrdering Facility: [facility] Address: [address] [place] [address] Performed By: #### A LLBG ####[facility]ORATORYCLIA [id number] [address] [place] CO2 (Bld) [Partial pressure] 43 mm Hg Normal 36-46 [facility] Comment on above: Order Comment: Speci men Type: ARTERIAL BLOOD SPECIMENOrdering Facility: [facility] Address: [address] [place] [address] Performed By: #### A LLBG ####[facility]ORATORYCLIA [id number] [address] [place] CO2 adjusted to patient's actual temperature (Bld) [Partial pressure] Normal [facility] Comment on above: Order Comment: Speci men Type: ARTERIAL BLOOD SPECIMENOrdering Facility: [facility] Address: [address] [place] [address] Performed By: #### A LLBG ####[facility]ORATORYCLIA [id number] [place] [address] [place] Glucose [Mass/Vol] 183 mg/dL High 60-105 [facility] Comment on above: Order Comment: Speci men Type: ARTERIAL BLOOD SPECIMENOrdering Facility: [facility] Address: [address] [place] [address] Performed By: #### A LLBG ####[facility]ORATORYCLIA [id number] [place] [address] [place] HCO3 (Bld) [Moles/Vol] 23 mmol/L Normal 22-26 [facility] Comment on above: Order Comment: Speci men Type: ARTERIAL BLOOD SPECIMENOrdering Facility: [facility] Address: [address] [place] [address] Performed By: #### A LLBG ####[facility]ORATORYCLIA [id number] [place] [address] [place] Hematocrit (Bld) [Volume fraction] 32.5 % Low 39.0-51.0 [facility] Comment on above: Order Comment: Speci men Type: ARTERIAL BLOOD SPECIMENOrdering Facility: [facility] Address: [address] [place] [address] Performed By: #### A LLBG ####[facility]ATORYCLIA [id number] [place] [address] [place] Hemoglobin (Bld) [Mass/Vol] 10.5 g/dL Low 13.0-17.0 [facility] Comment on above: Order Comment: Speci men Type: ARTERIAL BLOOD SPECIMENOrdering Facility: [facility] Address: [address] [place] [address] Performed By: #### A LLBG ####[facility]ATORYCLIA [id number] [place] [id number] [place] Lactate [Moles/Vol] 1.8 mmol/L Normal 0.5-2.2 [facility] Comment on above: Order Comment: Speci men Type: ARTERIAL BLOOD SPECIMENOrdering Facility: [facility] Address: [address] [place] [address] Performed By: #### A LLBG ####[facility]ATORYCLIA [id number] [place] [address] [place] Methemoglobin (Bld) [Mass fraction] 0.6 % Normal 0.0-1.5 [facility] Comment on above: Order Comment: Speci men Type: ARTERIAL BLOOD SPECIMENOrdering Facility: [facility] Address: [address] [place] [address] Performed By: #### A LLBG ####[facility]ORATORYCLIA [id number] [place] [address] [place] Oxygen (Bld) [Partial pressure] 168 mm Hg High 85-95 [facility] Comment on above: Order Comment: Speci men Type: ARTERIAL BLOOD SPECIMENOrdering Facility: [facility] Address: [address] [place] [address] Performed By: #### A LLBG ####[facility]ORATORYCLIA [id number] [place] [address] [place] Oxygen adjusted to patient's actual temperature (Bld) [Partial pressure] Normal [facility] Comment on above: Order Comment: Speci men Type: ARTERIAL BLOOD SPECIMENOrdering Facility: [facility] Address: [address] [place] [address] Performed By: #### A LLBG ####[facility]ATORYCLIA [id number] [place] [id number] [place] Oxyhemoglobin (BldA) [Mass fraction] 97 % Normal 95-98 [facility] Comment on above: Order Comment: Speci men Type: ARTERIAL BLOOD SPECIMENOrdering Facility: [facility] Address: [address] [place] [address] Performed By: #### A LLBG ####[facility]ATORYCLIA [id number] [place] [id number] [place] pH (Bld) 7.35 [pH] Normal 7.35-7.45 [facility] Comment on above: Order Comment: Speci men Type: ARTERIAL BLOOD SPECIMENOrdering Facility: [facility] Address: [address] [place] [address] Performed By: #### A LLBG ####[facility]ATORYCLIA [id number] [address] pH adjusted to patient's actual temperature (Bld) Normal [facility] Comment on above: Order Comment: Speci men Type: ARTERIAL BLOOD SPECIMENOrdering Facility: [facility] Address: [address] [place] [address] Performed By: #### A LLBG ####[facility]ATORYCLIA [id number] [place] [address] [place] Potassium [Moles/Vol] 5.9 mmol/L High 3.5-5.0 [facility] Comment on above: Order Comment: Speci men Type: ARTERIAL BLOOD SPECIMENOrdering Facility: [facility] Address: [address] [place] [address] Performed By: #### A LLBG ####[facility]ORATORYCLIA [id number] [place] [id number] [place] Sodium [Moles/Vol] 135 mmol/L Low 136-144 [facility] Comment on above: Order Comment: Speci men Type: ARTERIAL BLOOD SPECIMENOrdering Facility: [facility] Address: [address] [place] [address] Performed By: #### A LLBG ####[facility]ATORYCLIA [id number] [place] [id number] [place] Basic metabolic 2000 panelon 02-27-2025 Anion gap [Moles/Vol] 11 mmol/L Normal 8-15 [facility] Comment on above: Order Comment: Speci men Type: BLOOD SPECIMENOrdering Facility: [facility] Address: [address] [place] [address] Performed By: #### 2 4321-2 ####[facility] LABORATORYCLIA [id number] [place] [address] [place] Calcium [Mass/Vol] 8.3 mg/dL Low 8.5-10.2 [facility] Comment on above: Order Comment: Speci men Type: BLOOD SPECIMENOrdering Facility: [facility] Address: [address] [place] [address] Performed By: #### 2 4321-2 ####[facility] LABORATORYCLIA [id number] [place] [address] [place] Chloride [Moles/Vol] 102 mmol/L Normal 98-107 [facility] Comment on above: Order Comment: Speci men Type: BLOOD SPECIMENOrdering Facility: [facility] Address: [address] [place] [address] Performed By: #### 2 4321-2 ####[facility]ORATORYCLIA [id number] [place] [id number] [place] CO2 [Moles/Vol] 22 mmol/L Normal 22-30 [facility] Comment on above: Order Comment: Speci men Type: BLOOD SPECIMENOrdering Facility: [facility] Address: [address] [place] [address] Performed By: #### 2 4321-2 ####[facility]ORATORYCLIA [id number] [place] [id number] [place] Creatinine [Mass/Vol] 1.52 mg/dL High 0.73-1.22 [facility] Comment on above: Order Comment: Speci men Type: BLOOD SPECIMENOrdering Facility: [facility] Address: [address] [place] [address] Performed By: #### 2 4321-2 ####[facility]ATORYCLIA [id number] [place] [id number] [place] Creatinine and Glomerular filtration rate.predicted panel (S/P/Bld) 50 mL/min/1.73m??? Low >=60 [facility] Comment on above: Order Comment: Miguelina thomas Type: BLOOD SPECIMENOrdering Facility: [facility] Address: [address] [place] [address] Result Comment: Samantha mated Glomerular Filtration Rate [...] actual GFR. Performed By: #### 2 4321-2 ####[facility] LABORATORYCLIA [id number] [place] [address] [place] Glucose [Mass/Vol] 178 mg/dL High 74-99 [facility] Comment on above: Order Comment: Miguelina thomas Type: BLOOD SPECIMENOrdering Facility: [facility] Address: [address] [place] [address] Result Comment: The [place] [employer] (ADA) provides guidance for cutoff [...] Standards of Medical Care in Diabetes 2016, [place] [employer]. Diabetes Care. 2016.39(Suppl 1). Performed By: #### 2 4321-2 ####[facility]ORATORYCLIA [id number] [place] [id number] [place] Potassium [Moles/Vol] 5.4 mmol/L High 3.7-5.1 [facility] Comment on above: Order Comment: Miguelina thomas Type: BLOOD SPECIMENOrdering Facility: [facility] Address: [address] [place] [address] Performed By: #### 2 4321-2 ####[facility]ORATORYCLIA [id number] [place] [id number] [place] Sodium [Moles/Vol] 135 mmol/L Low 136-144 [facility] Comment on above: Order Comment: Speci men Type: BLOOD SPECIMENOrdering Facility: [facility] Address: [address] [place] [address] Performed By: #### 2 4321-2 ####[facility]ORATORYCLIA [id number] [place] [id number] [place] Urea nitrogen [Mass/Vol] 27 mg/dL High 9-24 [facility] Comment on above: Order Comment: Speci men Type: BLOOD SPECIMENOrdering Facility: [facility] Address: [address] [place] [address] Performed By: #### 2 4321-2 ####[facility]ORATORYCLIA [id number] [place] [id number] [place] CBC panel Auto (Bld)on 02-27 Erythrocyte distribution width (RBC) [Ratio] 16.7 % High 11.5-15.0 [facility] Comment on above: Order Comment: Speci men Type: BLOOD SPECIMENOrdering Facility: [facility] Address: [address] [place] [address] Performed By: #### 5 8410-2 ####[facility]ORATORYCLIA [id number] [place] [id number] [place] Hematocrit (Bld) [Volume fraction] 32.1 % Low 39.0-51.0 [facility] Comment on above: Order Comment: Speci men Type: BLOOD SPECIMENOrdering Facility: [facility] Address: [address] [place] [address] Performed By: #### 5 8410-2 ####[facility]ORATORYCLIA [id number] [place] [id number] [place] Hemoglobin (Bld) [Mass/Vol] 10.3 g/dL Low 13.0-17.0 [facility] Comment on above: Order Comment: Speci men Type: BLOOD SPECIMENOrdering Facility: [facility] Address: [address] [place] [address] Performed By: #### 5 8410-2 ####[facility]ATORYCLIA [id number] [address] MCH (RBC) [Entitic mass] 24.7 pg Low 26.0-34.0 [facility] Comment on above: Order Comment: Speci men Type: BLOOD SPECIMENOrdering Facility: [facility] Address: [address] [place] [address] Performed By: #### 5 8410-2 ####[facility]ATORYCLIA [id number] [address] MCHC (RBC) [Mass/Vol] 32.1 g/dL Normal 30.5-36.0 [facility] Comment on above: Order Comment: Speci men Type: BLOOD SPECIMENOrdering Facility: [facility] Address: [address] [place] [address] Performed By: #### 5 8410-2 ####[facility]ATORYCLIA [id number] [address] [place] MCV (RBC) [Entitic vol] 77.0 fL Low 80.0-100.0 [facility] Comment on above: Order Comment: Speci men Type: BLOOD SPECIMENOrdering Facility: [facility] Address: [address] [place] [address] Performed By: #### 5 8410-2 ####[facility]ATORYCLIA [id number] [address] [place] Nucleated RBC (Bld) [#/Vol] 10*3/uL Normal <0.01 [facility] Comment on above: Order Comment: Speci men Type: BLOOD SPECIMENOrdering Facility: [facility] Address: [address] [place] [address] Performed By: #### 5 8410-2 ####[facility]ATORYCLIA [id number] [place] [address] [place] Platelet mean volume (Bld) [Entitic vol] 9.0 fL Normal 9.0-12.7 [facility] Comment on above: Order Comment: Speci men Type: BLOOD SPECIMENOrdering Facility: [facility] Address: [address] [place] [address] Performed By: #### 5 8410-2 ####[facility]ORYCLIA [id number] [place] [id number] [place] Platelets (Bld) [#/Vol] 264 10*3/uL Normal 150-400 [facility] Comment on above: Order Comment: Speci men Type: BLOOD SPECIMENOrdering Facility: [facility] Address: [address] [place] [address] Performed By: #### 5 8410-2 ####[facility]ATORYCLIA [id number] [place] [address] [place] RBC (Bld) [#/Vol] 4.17 10*6/uL Low 4.20-6.00 [facility] Comment on above: Order Comment: Speci men Type: BLOOD SPECIMENOrdering Facility: [facility] Address: [address] [place] [address] Performed By: #### 5 8410-2 ####[facility]ATORYCLIA [id number] [place] [id number] [place] WBC (Bld) [#/Vol] 13.92 10*3/uL High 3.70-11.00 [facility] Comment on above: Order Comment: Speci men Type: BLOOD SPECIMENOrdering Facility: [facility] Address: [address] [place] [address] Performed By: #### 5 8410-2 ####[facility]ATORYCLIA [id number] [place] [id number] [facility] [place] CNDSon 02-27-2025 CNDS HNO ID: [id number] Author: BING ARVIZU MD Service: Urology Author [...] Your Medications These medications were sent to [facility] [address] [place] [address] Hours: Monday-Monday: 7am-7pm, Sat: 9am-1pm acetaminophen 325 [...] 8% Length of Stay (d) 0 -7% [facility] -6% Admissions (60d) 0 -6% Observations (365d) 0 6% Admission Provider Speciality UROLOGY 5% Memo Scale N/A I have performed the [id number] and relevant services for a total of >30 minutes. SIGNATURE: Tamanna Zhu APRN.PATTERN SETTER DATE: February 27, 2025 TIME: 12:52 PM Normal [facility] NURSING PROGon 02-27-2025 NURSING PROG HNO ID: [id number] Author: LATRICE HATHAWAY, RN Service: Nursing Author Type: Registered Nurse Type: Nursing Progress Note Filed: 02/27/2025 18:39 Note Text: Transfer Note: PATIENT NAME: Skyler Le Patient Location: [place] [address] Room: [place] [address] Patient transferred into room/unit PK312 in stable condition.[id number]. Actions taken: Oriented to unit,care and orders. murguia draining clear;yellow urine. IVF infusing patient stated had allergy to flomax. Had dizziness and back pain. Messaged added allergy. flomax not given Normal [facility] OPERATIVE NOon 02-27-2025 OPERATIVE NO HNO ID: [id number] Author: BING ARVIZU MD Service: Urology Author Type: Physician Type: Operative Report Filed: 02/27/2025 12:01 Note Text: OPERATIVE/PROCEDURE REPORT LOG ID: [id number] Surgery/Procedure Date: 02/27/2025 Incision/Procedure Start Time: 8:27 AM Incision Close/Procedure End Time: 12:20 PM Surgeon(s)/Proceduralis t(s) and Manager Willow(s): Surgeons and Role: * Bing Arvizu MD - Primary * Dallas Bullard MD - Resident - Assisting Physician Manager Willow: Yovany Fountain PA-C Procedure(s): 1) left robotic [...] the case. We then placed a 12-mm visitor information assistant port. The robot was then docked, [...] needed. The robot was undocked. The 12-mm visitor information assistant port was decided to be our extraction site. The visitor information assistant port was then extended and the [...] lymph nodes Implantable Devices: None Drains: 16 Urdu Murguia catheter Complications: None Accidental Punctures/Lacerations: None SURGEON: MD MASON Tinoco (more content not included)... Normal [facility] Pathology biopsy report Carlos (Tiss)on 02-27-2025 AP DISCLAIMER Normal [facility] Comment on above: Order Comment: Speci men Type: TISSUE SPECIMEN [facility] Address: [address] [place], [place] [id number] Result Comment: Zahira Alvarez Test (LDT) Disclaimer: Performance characteristics of immunohistochemical, immunofluorescent, and chromogenic in-situ hybridization tests have been determined by the performing laboratory within [facility]'s Bing Gray Pathology and Laboratory Medicine Department ([facility], [facility], [facility], [facility], [facility], [facility], or [facility]) in a manner consistent with CLIA requirements. One or more of these tests may not have been cleared or approved by the FDA. [facility] is regulated under CLIA as qualified to perform high-complexity testing. These tests are used for clinical purposes. These should not be regarded as investigational or for research. Positive and negative controls stain appropriately. Performed By: #### 6 6121-5 #### [facility] CLIA [id number] [address] [place], [place] [address] [facility] CLIA [id number] [address] [place] [address] OF [facility] BLOCK FOR ADDITIONAL BIOMARKERS/MOLECULAR STUDIES Normal [facility] Comment on above: Order Comment: Speci men Type: TISSUE SPECIMEN Ordering Facility: [facility] Address: [address] [place] [address] Result Comment: Carmen l metastasis: B16 Kidney primary: B6, B20 Performed By: #### 6 6121-5 #### [facility] CLIA [id number] [address] [place] [address] LABORATORY CLIA [id number] [address] [place] [address] OF [facility] CASE REPORT Normal [facility] Comment on above: Order Comment: Speci men Type: TISSUE SPECIMEN Ordering Facility: [facility] Address: [address] [place] [address] Result Comment: Surg ical Pathology Report Case: [id number] Authorizing Provider: Bing Arvizu MD Collected: 02/27/2025 11:37 AM Ordering Location: [facility] Received: 02/27/2025 12:13 PM Operating Room Pathologist: Shasta Middleton MD Specimens: A) - Lymph Node (Specify Site in Comments), para aortic lymph nodes B) - Kidney, Left, Resection, radical nephrectomy Performed By: #### 6 6121-5 #### 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 CLIA [id number] [address] [place] [address] LABORATORY CLIA [id number] [address] [place] [address] DIAGNOSIS COMMENT Normal [facility] Comment on above: Order Comment: Speci william Type: TISSUE SPECIMEN Ordering Facility: [facility] Address: [address] [place] [address] Result Comment: Immu nohistochemical stains were performed (blocks B6 and B20) with slightly varying results: PAX8 is strongly and diffusely positive in both blocks, while CAIX is patchy positive (box-shaped); GATA3 and p63 are both negative in B20, while GATA3 is weak with negative p63 in B6. Although challenging to be definitive in the tumor lineage (renal cell carcinoma vs. urothelial carcinoma), the overall histologic and immunohistochemical features are more consistent with a renal cell carcinoma. In an attempt to further subclassify the tumor, additional stains were performed (B6) with the following results: INI-1 and FH are both retained (normal), while 2SC is negative. We are unfortunately not able to reach a definitive subtype and felt it best to use the unclassified designation for this renal cell carcinoma. Drs. Becky Cox and Justo Patrick have both reviewed this case and concurs with the tumor classification. Performed By: #### 6 6121-5 #### [facility] CLIA [id number] [address] [place] [address] LABORATORY CLIA [id number] [address] [place] [address] FINAL DIAGNOSIS Normal [facility] Comment on above: Order Comment: Miguelina thomas Type: TISSUE SPECIMEN Ordering Facility: [facility] Address: [address] [place] [address] Result Comment: A. L ymph nodes, para-aortic, regional resection: - Metastatic renal cell carcinoma with sarcomatoid differentiation in one of two lymph nodes (1/2). B. Kidney, left, radical nephrectomy: - Renal cell carcinoma, unclassified, with sarcomatoid differentiation, grade 4, 8 cm. - Tumor invades perinephric fat, renal sinus, and pelvis. - Margins are negative for tumor. - Metastatic renal cell carcinoma with sarcomatoid differentiation in one hilar lymph node (10/02). - Portion of benign adrenal gland. at 1356 EDT Performed By: #### 6 6121-5 #### [facility] CLIA [id number] [address] [place] [address] LABORATORY CLIA [id number] [address] [place] [address] FINAL PERFORMING LAB Normal [facility] Comment on above: Order Comment: Speci men Type: TISSUE SPECIMEN Ordering Facility: [facility] Address: [address] [place] [address] Result Comment: Diag nostic interpretation performed at: [facility], [address] [place] [address] CLIA# [id number] [employer] Furnace Tender: Zack Baez MD Performed By: #### 6 6121-5 #### [facility] CLIA [id number] [address] [place] [address] LABORATORY CLIA [id number] [address] [place] [address] GROSS DESCRIPTION Normal [facility] Comment on above: Order Comment: Speci men Type: TISSUE SPECIMEN Ordering Facility: [facility] Address: [address] [place] [address] Result Comment: A. L ymph Node (Specify Site in Comments) Received in formalin designated periaortic lymph nodes are multiple segments of yellow fatty tissue which aggregate to 6.8 x 4.2 x 2.4 cm. The specimen is serially sectioned revealing sabillon-pink to sabillon-white lymph nodes which measure up to 3.8 x 3 x 2.1 cm. The largest lymph node has focal areas of necrosis present. The lymph nodes are totally submitted as follows: A1-A10 1 lymph node serially sectioned, A11 1 lymph node bisected. BF February 27, 2025 2:55 PM Gross examination performed at [facility], [address] [place] [address] B. Kidney, Left, Resection Received in formalin labeled radical nephrectomy is a left kidney surrounded by an irregular envelope of fibroadipose tissue weighing 2585 g and measuring 34.5 x 18.5 x 10.2 cm. A 15.4 cm in length by 0.3 cm in diameter segment of ureter is present and is unremarkable. The specimen is received with inferior fat peeled back and inferior capsule exposed and torn. A photograph is taken. The outer surface of the kidney is inked black. The kidney itself measures 15 x 8 x 7 cm. An 8 x 7 x 6 cm mass is identified in the inferior pole. This mass is sabillon, firm and lobulated with approximately 20% multifocal hemorrhage. The mass grossly involves the renal sinus. The mass extends 1 cm into the perirenal fat and is located approximately 0.5 cm from the inked outer surface. Also identified is a 5 x 5 x 4 cm multilocular cystic cavity located in the superior pole, 3.5 cm from the mass, 0.3 cm from the inked outer surface containing hemorrhagic fluid and clotted blood. A 13 x 7 x 2.5 cm area of clotted blood grossly dissects along the posterior aspect of the kidney between the perinephric fat and renal capsule. A sabillon-white, firm lymph node is identified at the hilum measuring 2 cm in greatest dimension. An additional multilocular cyst filled with clear serous fluid is identified within the midpole measuring 2.5 x 1.5 x 1.2 cm. The remaining renal parenchyma is sabillon-brown with an ill-defined corticomedullary demarcation. A partially disrupted adrenal gland is present measuring 6 x 1.8 x 1.4 cm. Sectioning the adrenal gland reveals no involvement by mass. Normal adrenal outline is present, but the external surface has a knobby appearance. Sectioning reveals the lopez-yellow adrenal cortex to be coarsely nodular. Yellow-orange nodules are present measuring 0.2 to 0.4 cm in greatest dimension. Scant red-brown medullary tissue is present. Photographs are taken. Black Pickler sections are submitted as follows: B1 ureter margin B2 vascular margins B3 mass with closest relationship to soft tissue resection margin (inked black) B4 mass invading perinephric fat B5-B7 mass with renal sinus B8 mass with adjacent uninvolved parenchyma B9 additional section of mass invading perinephric fat B10 mass with adjacent dissecting area from inferior pole B11 cyst with adjacent dissecting area from superior pole B12 scheduling representative cyst from superior and mid pole B13-B14 adrenal gland with disrupted and nodular areas B15-B16 hilar lymph node KSZ February 28, 2025 [place] [address] Additional sections of mass are submitted in cassettes B17-B22. WE March 07, 2025 11:29 AM Gross examination performed at [facility], [address] [place] [address] Performed By: #### 6 6121-5 #### [facility] CLIA [id number] [address] [place] [address] LABORATORY CLIA [id number] [address] [place] [address] SYNOPTIC REPORT Normal [facility] Comment on above: Order Comment: Speci men Type: TISSUE SPECIMEN Ordering Facility: [facility] Address: [address] [place] [address] Result Comment: NIKKO EY: Nephrectomy KIDNEY: RESECTION - All Specimens 8th Edition - Protocol posted: 03/20/2024 SPECIMEN Procedure: Radical nephrectomy Specimen Laterality: Left TUMOR Tumor Focality: Unifocal Tumor Size: Greatest Dimension (Centimeters): 8 cm Histologic Type: Renal cell carcinoma, NOS Histologic Grade (WHO / ISUP): G4, extreme nuclear pleomorphism and / or multinucleated giant cells and / or rhabdoid and / or sarcomatoid differentiation: Sarcomatoid differentiation identified Tumor Extent: Extends into perinephric tissue (beyond renal capsule) Tumor Extent: Extends into renal sinus Tumor Extent: Extends into pelvicalyceal system Histologic Features: Sarcomatoid features present Percentage of Sarcomatoid Element: 20 % Tumor Necrosis: Present Percentage of Tumor Necrosis: 20 % Lymphatic and / or Vascular Invasion: Present MARGINS Margin Status: All margins negative for invasive carcinoma REGIONAL LYMPH NODES Regional Lymph Node Status: : Tumor present in regional lymph node(s) Number of Lymph Nodes with Tumor: 2 Lázaro Site(s) with Tumor: Hilar Lázaro Site(s) with Tumor: Paraaortic Size of Largest Lázaro Metastatic Deposit: 3.8 cm Extranodal Extension (NASEEM): Present Number of Lymph Nodes Examined: 3 pTNM CLASSIFICATION (AJCC 8th Edition) Reporting of pT, pN, and (when applicable) pM categories is based on information available to the pathologist at the time the report is issued. As per the AJCC (Chapter 1, 8th Ed.) it is the managing physician's responsibility to establish the final pathologic stage based upon all pertinent information, including but potentially not limited to this pathology report. pT Category: pT3a pN Category: pN1 ADDITIONAL FINDINGS Additional Findings in Kidney: Papillary adenoma(s) Additional Findings in Kidney: Cortical cysts Performed By: #### 6 6121-5 #### [facility] CLIA [id number] [address] [facility] [address]K [address] LABORATORY CLIA [id number] [address] TYPE + SCREENon 02-27-2025 ABO O [facility] Comment on above: Order Comment: Speci men Type: BLOOD SPECIMENOrdering Facility: [facility] Address: [address] [place] [address] Performed By: #### T SCR ####[facility] [id number] [address] Rh Nom (Bld) Positive [facility] Comment on above: Order Comment: Speci men Type: BLOOD SPECIMENOrdering Facility: [facility] Address: [address] [place] [address] Performed By: #### T SCR ####[facility] [id number] [address] TYPE AND SCREEN EXPIRATION 03/02/2025 23:59 [facility] Comment on above: Order Comment: Speci men Type: BLOOD SPECIMENOrdering Facility: [facility] Address: [address] [place] [address] Performed By: #### T SCR ####[facility] [id number] [address] CNPNon 02-10-2025 CNPDeepak Telephone ([facility]) MIMISKYLER RAJAN ([id number]) 1960 M Date Time Provider Department 02/10/25 ROB ROMERO During your visit today, we recorded the following information about you: Rob Romero, ENOCH.PATTERN SETTER 02/10/2025 9:37 AM Signed I have ordered two Venofer Infusions for patient . The best location for this patient is the [facility] to have these completed. Annalee Oro RN 02/14/2025 2:49 PM Addendum I called [facility] this am at 10 am. RN notified of Venofer order. States will speak to pharmacist and nurse client integration manager and arrange patient to get Venofer Infusion.[phone] Mehul notified. Allergies As of Date: 02/10/2025 [...] Encounter Status:Closed by ROB ROMERO on 02/10/25 [facility] Telephone (JOVI) SKYLER LE ([id number]) 1960 M Date Time Provider Department 02/10/25 [...] Status:Closed by ROB ROMERO on 02/10/25 Normal [facility] ECG COMPLETEon 02-07-2025 ECG COMPLETE Ventricular Rate : 5 1 BPM Atrial Rate : 51 BPM P-R Interval : 136 ms QRS Duration : 86 ms Q-T Interval : 452 ms QTC Calculation(Bazett) : 416 ms Calculated P [place] : 50 degrees Calculated R [place] : 44 degrees Calculated T [place] : 55 degrees SINUS BRADYCARDIA OTHERWISE NORMAL ECG Confirmed by FRANC SHIPMAN MD ([id number]) on 02/26/2025 3:20:12 PM NAME : SKYLER LE PID : [id number] : 1960 Gender : Male Race : ORD : [id number] Procedure Date : Feb 07 2025 13:03:37 Edit Date : Feb 26 2025 15:20:17 Diagnosis: SINUS BRADYCARDIA OTHERWISE NORMAL ECG Confirmed by FRANC SHIPMAN MD ([id number]) on 02/26/2025 3:20:12 PM Test Reason : Z01.818 Pre-op evaluation Location : 145 : [facility] Overread By : FRANC SHIPMAN MD Edited By : FRANC SHIPMAN MD Referred By : BING ARVIZU Acquired by : am, Normal [facility] Ferritin SerPl-mCncon 2024 Ferritin [Mass/Vol] 131.0 ng/mL Normal 30.3-565.7 [facility] Comment on above: Order Comment: Speci men Type: BLOOD SPECIMEN Ordering Facility: [facility] Address: [address] [place] [address] Performed By: #### C ONABO #### [facility] CLIA [id number] [address] [place] [address] [place] [address] [place] HISTORY PHYSICALon HISTORY PHYSICAL HNO ID: [id number] Author: ROB ROMERO APRN.PATTERN SETTER Service: ? Author Type: Nurse Practitioner Type: [...] 0 (ROSA M compliant with CPAP ) [id number] Score: Age: 65-74 Sex: male CHF history: No Hypertension history: Yes Stroke/TIA/thromboembol ism history: No Vascular disease history: No Diabetes history: Yes NCT3ES1-ZJPx Score: 3 ARISCAT Score: Age: 51-80 Preoperative [...] OF SYST (more content not included)... Normal [facility] HbA1c (Bld)on 02-07-2025 Average glucose Estimated from glycated hemoglobin (Bld) [Mass/Vol] 108 mg/dL Normal [facility] Comment on above: Order Comment: Miguelina thomas Type: BLOOD SPECIMEN Ordering Facility: [facility] Address: [address] [place] [address] Result Comment: eAG: (Estimated average glucose) is a calculated value from HgbA1c and is scheduling representative of the average blood glucose level in the last 2-3 month period. Performed By: #### 5 5454-3 #### [facility] CLIA [id number] [address] [place] [address] [place] HbA1c (Bld) [Mass fraction] 5.4 % Normal 4.3-5.6 [facility] Comment on above: Order Comment: Miguelina thomas Type: BLOOD SPECIMEN Ordering Facility: [facility] Address: [address] [place] [address] Result Comment: [place] Diabetes Association guidelines indicate that patients with HgbA1c in the range 5.7-6.4% are at increased risk for development of diabetes, and intervention by lifestyle modification may be beneficial. HgbA1c greater or equal to 6.5% is considered diagnostic of diabetes. Performed By: #### 5 5454-3 #### [facility] CLIA [id number] [address] [place] [address] [place] Iron and Iron binding capaci ty panelon 02-07-2025 Iron [Mass/Vol] 23 ug/dL Low 41-186 [facility] Comment on above: Order Comment: Miguelina thomas Type: BLOOD SPECIMEN Ordering Facility: [facility] Address: [address] [place] [address] Performed By: #### C ONABO #### [facility] CLIA [id number] [address] [place] [address] [place] Iron binding capacity [Mass/Vol] 247 ug/dL Normal 232-386 [facility] Comment on above: Order Comment: Speci men Type: BLOOD SPECIMEN Ordering Facility: [facility] Address: [address] [place] [address] Performed By: #### C ONABO #### [facility] CLIA [id number] [address] [place] [address] [place] Iron/TIBC [Molar ratio] 9.3 % Low 15.0-57.0 [facility] Comment on above: Order Comment: Speci men Type: BLOOD SPECIMEN Ordering Facility: [facility] Address: [address] [place] [address] Performed By: #### C ONABO #### [facility] CLIA [id number] [address] [place] [address] [place] BRIEF OP NOTon 01-24-2025 BRIEF OP NOT HNO ID: [id number] Author: YOVANY ESTRADA DO Service: Radiology Author Type: Physician Type: Brief Op Note Filed: 01/24/2025 11:55 Note Text: BRIEF OPERATIVE / PROCEDURE NOTE LOG ID: [id number] SURGERY/PROCEDURE DATE: 01/24/2025 INCISION/PROCEDURE START TIME: 11:39 AM INCISION CLOSE/PROCEDURE END TIME: 11:52 AM SURGEON(S)/PROCEDURALIS T(S) AND CANCER PROGRAM COORDINATOR(S): Surgeons and Role: * Yovany Estrada DO - Primary No Additional Staff SURGERY/PROCEDURE(S): US [...] January 24, 2025 TIME: 11:53 AM Normal [facility] Bacteria Ur Culton 5 Bacteria identified Cx Nom (U) ORGANISM ID: 1 <10,000 CFU/ml Normal urogenital rudy Normal [facility] Comment on above: Performed By: #### 6 6121-5 #### [facility] CLIA [id number] [address] [place] [address] [place] CBC W Auto Differential pane l (Bld)on 01-24-2025 Basophils (Bld) [#/Vol] 0.07 10*3/uL Normal <0.11 [facility] Comment on above: Order Comment: Speci men Type: TISSUE SPECIMEN Ordering Facility: [facility] Address: [address] [place] [address] Performed By: #### 6 6121-5 #### [facility] CLIA [id number] [address] [place] [address] [place] Basophils/100 WBC (Bld) 0.5 % Normal [facility] Comment on above: Order Comment: Speci men Type: TISSUE SPECIMEN Ordering Facility: [facility] Address: [address] [place] [address] Performed By: #### 6 6121-5 #### [facility] CLIA [id number] [address] [place] [address] [place] Differential cell count method Nom (Bld) Auto Normal [facility] Comment on above: Order Comment: Speci men Type: TISSUE SPECIMEN Ordering Facility: [facility] Address: [address] [place] [address] Performed By: #### 6 6121-5 #### [facility] CLIA [id number] [address] [place] [address] [place] Eosinophils (Bld) [#/Vol] 0.09 10*3/uL Normal <0.46 [facility] Comment on above: Order Comment: Speci men Type: TISSUE SPECIMEN Ordering Facility: [facility] Address: [address] [place] [address] Performed By: #### 6 6121-5 #### [facility] CLIA [id number] [address] [place] [address] [place] Eosinophils/100 WBC (Bld) 0.7 % Normal [facility] Comment on above: Order Comment: Speci men Type: TISSUE SPECIMEN Ordering Facility: [facility] Address: [address] [place] [address] Performed By: #### 6 6121-5 #### [facility] CLIA [id number] [address] [place] [address] [place] Erythrocyte distribution width (RBC) [Ratio] 15.0 % Normal 11.5-15.0 [facility] Comment on above: Order Comment: Speci men Type: TISSUE SPECIMEN Ordering Facility: [facility] Address: [address] [place] [address] Performed By: #### 6 6121-5 #### [facility] CLIA [id number] [address] [place] [address] [place] Hematocrit (Bld) [Volume fraction] 35.9 % Low 39.0-51.0 [facility] Comment on above: Order Comment: Speci men Type: TISSUE SPECIMEN Ordering Facility: [facility] Address: [address] [place] [address] Performed By: #### 6 6121-5 #### [facility] CLIA [id number] [address] [place] [address] [place] Hemoglobin (Bld) [Mass/Vol] 11.1 g/dL Low 13.0-17.0 [facility] Comment on above: Order Comment: Speci men Type: TISSUE SPECIMEN Ordering Facility: [facility] Address: [address] [place] [address] Performed By: #### 6 6121-5 #### [facility] CLIA [id number] [address] [place] [address] [place] Immature granulocytes (Bld) [#/Vol] 0.09 10*3/uL Normal <0.10 [facility] Comment on above: Order Comment: Speci men Type: TISSUE SPECIMEN Ordering Facility: [facility] Address: [address] [place] [address] Performed By: #### 6 6121-5 #### [facility] CLIA [id number] [address] [place] [address] [place] Immature granulocytes/100 WBC (Bld) 0.7 % Normal [facility] Comment on above: Order Comment: Speci men Type: TISSUE SPECIMEN Ordering Facility: [facility] Address: [address] [place] [address] Performed By: #### 6 6121-5 #### [facility] CLIA [id number] [address] [place] [address] [place] Lymphocytes (Bld) [#/Vol] 1.32 10*3/uL Normal 1.00-4.00 [facility] Comment on above: Order Comment: Speci men Type: TISSUE SPECIMEN Ordering Facility: [facility] Address: [address] [place] [address] Performed By: #### 6 6121-5 #### [facility] CLIA [id number] [address] [place] [address] [place] Lymphocytes/100 WBC (Bld) 10.3 % Normal [facility] Comment on above: Order Comment: Speci men Type: TISSUE SPECIMEN Ordering Facility: [facility] Address: [address] [place] [address] Performed By: #### 6 6121-5 #### [facility] CLIA [id number] [address] [place] [address] [place] MCH (RBC) [Entitic mass] 24.5 pg Low 26.0-34.0 [facility] Comment on above: Order Comment: Speci men Type: TISSUE SPECIMEN Ordering Facility: [facility] Address: [address] [place] [address] Performed By: #### 6 6121-5 #### [facility] CLIA [id number] [address] [place] [address] [place] MCHC (RBC) [Mass/Vol] 30.9 g/dL Normal 30.5-36.[address] [facility] Comment on above: Order Comment: Speci men Type: TISSUE SPECIMEN Ordering Facility: [facility] Address: [address] [place] [address] Performed By: #### 6 6121-5 #### [facility] CLIA [id number] [address] [place] [address] [place] MCV (RBC) [Entitic vol] 79.2 fL Low 80.0-100.0 [facility] Comment on above: Order Comment: Speci men Type: TISSUE SPECIMEN Ordering Facility: [facility] Address: [address] [place] [address] Performed By: #### 6 6121-5 #### [facility] CLIA [id number] [address] [place] [address] [place] Monocytes (Bld) [#/Vol] 1.09 10*3/uL High <0.87 [facility] Comment on above: Order Comment: Speci men Type: TISSUE SPECIMEN Ordering Facility: [facility] Address: [address] [place] [address] Performed By: #### 6 6121-5 #### [facility] CLIA [id number] [address] [place] [address] [place] Monocytes/100 WBC (Bld) 8.5 % Normal [facility] Comment on above: Order Comment: Speci men Type: TISSUE SPECIMEN Ordering Facility: [facility] Address: [address] [place] [address] Performed By: #### 6 6121-5 #### [facility] CLIA [id number] [address] [place] [address] [place] Neutrophils (Bld) [#/Vol] 10.14 10*3/uL High 1.45-7.50 [facility] Comment on above: Order Comment: Speci men Type: TISSUE SPECIMEN Ordering Facility: [facility] Address: [address] [place] [address] Performed By: #### 6 6121-5 #### [facility] CLIA [id number] [address] [place] [address] [place] Neutrophils/100 WBC (Bld) 79.3 % Normal [facility] Comment on above: Order Comment: Speci men Type: TISSUE SPECIMEN Ordering Facility: [facility] Address: [address] [place] [address] Performed By: #### 6 6121-5 #### [facility] CLIA [id number] [address] [place] [address] [place] Nucleated RBC (Bld) [#/Vol] 10*3/uL Normal <0.01 [facility] Comment on above: Order Comment: Speci men Type: TISSUE SPECIMEN Ordering Facility: [facility] Address: [address] [place] [address] Performed By: #### 6 6121-5 #### [facility] CLIA [id number] [address] [place] [address] [place] Nucleated RBC/100 WBC (Bld) [Ratio] 0.0 /100 WBC Normal [facility] Comment on above: Order Comment: Speci men Type: TISSUE SPECIMEN Ordering Facility: [facility] Address: [address] [place] [address] Performed By: #### 6 6121-5 #### [facility] CLIA [id number] [address] [place] [address] [place] Platelet mean volume (Bld) [Entitic vol] 9.7 fL Normal 9.0-12.7 [facility] Comment on above: Order Comment: Speci men Type: TISSUE SPECIMEN Ordering Facility: [facility] Address: [address] [place] [address] Performed By: #### 6 6121-5 #### [facility] CLIA [id number] [address] [place] [address] [place] Platelets (Bld) [#/Vol] 310 10*3/uL Normal 150-400 [facility] Comment on above: Order Comment: Speci men Type: TISSUE SPECIMEN Ordering Facility: [facility] Address: [address] [place] [address] Performed By: #### 6 6121-5 #### [facility] CLIA [id number] [address] [place] [address] [place] RBC (Bld) [#/Vol] 4.53 10*6/uL Normal 4.20-6.00 [facility] Comment on above: Order Comment: Speci men Type: TISSUE SPECIMEN Ordering Facility: [facility] Address: [address] [place] [address] Performed By: #### 6 6121-5 #### [facility] CLIA [id number] [address] [place] [address] [place] WBC (Bld) [#/Vol] 12.80 10*3/uL High 3.70-11.00 [facility] Comment on above: Order Comment: Speci men Type: TISSUE SPECIMEN Ordering Facility: [facility] Address: [address] [place] [address] Performed By: #### 6 6121-5 #### [facility] CLIA [id number] [address] [place] [address] [place] CONFIRM BLOOD TYPEon 025 ABO O Normal [facility] Comment on above: Order Comment: Speci men Type: BLOOD SPECIMEN Ordering Facility: [facility] Address: [address] [place] [address] Performed By: #### C ONABO #### [facility] CLIA [id number] [address] [place] [address] [place] Rh Nom (Bld) Positive Normal [facility] Comment on above: Order Comment: Speci men Type: BLOOD SPECIMEN Ordering Facility: [facility] Address: [address] [place] [address] Performed By: #### C ONABO #### [facility] CLIA [id number] [address] [place] [address] [place] [facility] Comprehensive metabolic 2000 panelon 01-24-2025 Albumin [Mass/Vol] 3.8 g/dL Low 3.9-4.9 [facility] Comment on above: Order Comment: Speci men Type: TISSUE SPECIMEN Ordering Facility: [facility] Address: [address] [place] [address] Performed By: #### 6 6121-5 #### [facility] CLIA [id number] [address] [place] [address] [place] ALP [Catalytic activity/Vol] 66 U/L Normal 38-113 [facility] Comment on above: Order Comment: Speci men Type: TISSUE SPECIMEN Ordering Facility: [facility] Address: [address] [place] [address] Performed By: #### 6 6121-5 #### [facility] CLIA [id number] [address] [place], [place] [address] [place] ALT [Catalytic activity/Vol] 8 U/L Low 10-54 [facility] Comment on above: Order Comment: Speci men Type: TISSUE SPECIMEN Ordering Facility: [facility] Address: [address] [place] [address] Performed By: #### 6 6121-5 #### [facility] CLIA [id number] [address] [id number] [address] [place] Anion gap [Moles/Vol] 11 mmol/L Normal 8-[address] [facility] Comment on above: Order Comment: Speci men Type: TISSUE SPECIMEN Ordering Facility: [facility] Address: [address] [place] [address] Performed By: #### 6 6121-5 #### [facility] CLIA [id number] [address] [place] [address] [place] AST [Catalytic activity/Vol] 12 U/L Low 14-40 [facility] Comment on above: Order Comment: Speci men Type: TISSUE SPECIMEN Ordering Facility: [facility] Address: [address] [place] [address] Performed By: #### 6 6121-5 #### [facility] CLIA [id number] [address] [place] [address] [place] Bilirubin [Mass/Vol] 0.4 mg/dL Normal 0.2-1.3 [facility] Comment on above: Order Comment: Speci men Type: TISSUE SPECIMEN Ordering Facility: [facility] Address: [address] [place] [address] Performed By: #### 6 6121-5 #### [facility] CLIA [id number] [address] [place] [address] [place] Calcium [Mass/Vol] 9.2 mg/dL Normal 8.5-10.2 [facility] Comment on above: Order Comment: Speci men Type: TISSUE SPECIMEN Ordering Facility: [facility] Address: [address] [place] [address] Performed By: #### 6 6121-5 #### [facility] CLIA [id number] [address] [place] [address] [place] Chloride [Moles/Vol] 98 mmol/L Normal 98-107 [facility] Comment on above: Order Comment: Speci men Type: TISSUE SPECIMEN Ordering Facility: [facility] Address: [address] [place], [place] [address] Performed By: #### 6 6121-5 #### [facility] CLIA [id number] [address] [place] [address] [place] CO2 [Moles/Vol] 28 mmol/L Normal 22-30 [facility] Comment on above: Order Comment: Speci men Type: TISSUE SPECIMEN Ordering Facility: [facility] Address: [address] [place] [address] Performed By: #### 6 6121-5 #### [facility] CLIA [id number] [address] [place] [address] [place] Creatinine [Mass/Vol] 1.44 mg/dL High 0.73-1.[address] [facility] Comment on above: Order Comment: Speci men Type: TISSUE SPECIMEN Ordering Facility: [facility] Address: [address] [place] [address] Performed By: #### 6 6121-5 #### [facility] CLIA [id number] [address] [place] [address] [place] Creatinine and Glomerular filtration rate.predicted panel (S/P/Bld) 54 mL/min/1.73m??? Low >=60 [facility] Comment on above: Order Comment: Speci men Type: TISSUE SPECIMEN Ordering Facility: [facility] Address: [address] [place] [address] Result Comment: Samantha mated Glomerular Filtration Rate [...] GFR. Performed By: #### 6 6121-5 #### [facility] CLIA [id number] [address] [place], [place] [address] [place] Glucose [Mass/Vol] 112 mg/dL High 74-99 [facility] Comment on above: Order Comment: Speci men Type: TISSUE SPECIMEN Ordering Facility: [facility] Address: [address] [place] [address] Result Comment: The [place] Diabetes Association (ADA) provides guidance for cutoff [...] Standards of Medical Care in Diabetes 2016, [place] [employer]. Diabetes Care. 2016.39(Suppl 1). Performed By: #### 6 6121-5 #### [facility] CLIA [id number] [address] [place] [address] [place] Potassium [Moles/Vol] 4.5 mmol/L Normal 3.7-5.[address] [facility] Comment on above: Order Comment: Speci men Type: TISSUE SPECIMEN Ordering Facility: [facility] Address: [address] [place] [address] Performed By: #### 6 6121-5 #### [facility] CLIA [id number] [address] [place] [address] [place] Protein [Mass/Vol] 7.6 g/dL Normal 6.3-8.0 [facility] Comment on above: Order Comment: Speci men Type: TISSUE SPECIMEN Ordering Facility: [facility] Address: [address] [place] [address] Performed By: #### 6 6121-5 #### [facility] CLIA [id number] [address] [place] [address] [place] Sodium [Moles/Vol] 137 mmol/L Normal 136-144 [facility] Comment on above: Order Comment: Speci men Type: TISSUE SPECIMEN Ordering Facility: [facility] Address: [address] [place] [address] Performed By: #### 6 6121-5 #### [facility] CLIA [id number] [address] [place] [address] Urea nitrogen [Mass/Vol] 24 mg/dL Normal 9-24 [facility] Comment on above: Order Comment: Miguelina william Type: TISSUE SPECIMEN Ordering Facility: [facility] Address: [address] [place] [address] Performed By: #### 6 6121-5 #### [facility] CLIA [id number] [address] [place] [address] OF [facility] HISTORY PHYSICALon HISTORY PHYSICAL HNO ID: [id number] Author: YOVANY ESTRADA DO Service: Radiology Author [...] January 24, 2025 TIME: 9:43 AM Normal [facility] NURSING PROGon 01-24-2025 NURSING PROG HNO ID: [id number] Author: SIA OTTO RN Service: ? Author Type: Registered Nurse Type: Nursing Progress Note Filed: 01/27/2025 08:15 Note Text: Completed post procedure phone call. Skyler is feeling well and has returned to his baseline diet and activity. Skyler denies questions or concerns related to his kidney biopsy appointment on 01/24/25 and had no surgical site concerns. Normal [facility] PT EDon 01-24-2025 PT ED HNO ID: [id number] Author: ML MATA, JUANA Service: Radiology Author Type: Registered Nurse Type: [...] RN In Department: HOSP MAIN FB36 Normal [facility] PT panel Coag (PPP)on 2024 INR Coag (PPP) [Relative time] 1.1 {INR} Normal 0.9-1.3 [facility] Comment on above: Order Comment: Miguelina thomas Type: TISSUE SPECIMEN Ordering Facility: [facility] Address: [address] [place] [address] Result Comment: Leticia min K Antagonist (VKA) Therapeutic Range: INR 2 to 3 (Target INR of 2.5) Note: For patients treated with VKA drugs, such as warfarin, the [place] [employer] 2012 Guideline recommends [...] 2.5 to 3.5 (target INR of 3). Waqar JAEGER, et al. Chest 2012, 141:7S-47S Waqas RA, et al. [facility] 2017, 70: 252-289 Performed By: #### 6 6121-5 #### [facility] CLIA [id number] [address] [place] [address] [place] PT Coag (PPP) [Time] 12.1 s Normal 9.7-13.0 [facility] Comment on above: Order Comment: Miguelina thomas Type: TISSUE SPECIMEN Ordering Facility: [facility] Address: [address] [place] [address] Performed By: #### 6 6121-5 #### [facility] CLIA [id number] [address] [place] [address] OF [facility] Pathology biopsy report Carlos (Tiss)on 01-24-2025 AP DISCLAIMER Normal [facility] Comment on above: Order Comment: Speci men Type: TISSUE SPECIMEN Ordering Facility: [facility] Address: [address] [place] [address] Result Comment: Zahira craig Developed Test (LDT) Disclaimer: Performance characteristics of immunohistochemical, immunofluorescent, and chromogenic in-situ hybridization tests have been determined by the performing laboratory within [facility]'s [facility] Pathology and Laboratory Medicine Department ([facility], [facility], [facility], [facility], [facility], [facility], or [facility]) in a manner consistent with CLIA requirements. One or more of these tests may not have been cleared or approved by the FDA. [facility] is regulated under CLIA as qualified to perform high-complexity testing. These tests are used for clinical purposes. These should not be regarded as investigational or for research. Positive and negative controls stain appropriately. Performed By: #### 6 6121-5 #### [facility] CLIA [id number] [address] [place] [address] [place] CASE REPORT Normal [facility] Comment on above: Order Comment: Speci men Type: TISSUE SPECIMEN Ordering Facility: [facility] Address: [address] [place] [address] Result Comment: Surg ica Pathology Report Case: [id number] Authorizing Provider: Bg Navas MD Collected: 01/24/2025 11:40 AM Ordering Location: [place] [address] Received: 01/24/2025 04:48 PM Pathologist: Becky Cox MD Specimen: Kidney, Mass, Left, Biopsy Performed By: #### 6 6121-5 #### [facility] CLIA [id number] [address] [place] [address] [place] CLINICAL HISTORY left renal lesion Normal [facility] Comment on above: Order Comment: Speci men Type: TISSUE SPECIMEN Ordering Facility: [facility] Address: [address] [place] [address] Performed By: #### 6 6121-5 #### [facility] CLIA [id number] [address] [place] [address] DIAGNOSIS COMMENT Normal [facility] Comment on above: Order Comment: Speci men Type: TISSUE SPECIMEN Ordering Facility: [facility] Address: [address] [place] [address] Result Comment: Immu nohistochemical stains to aid [...] genitourinary pathology consensus conference on 01/28/25 and Dio Black C. Kao, S. Williamson, and Magui Spencer agree with the above interpretation. Performed By: #### 6 6121-5 #### 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 See comment. at 1113 EDT Performed By: #### 6 6121-5 #### [facility] CLIA [id number] [address] [place] [address] OF [facility] FINAL PERFORMING LAB Normal [facility] Comment on above: Order Comment: Speci men Type: TISSUE SPECIMEN Ordering Facility: [facility] Address: [address] [place] [address] Result Comment: Diag nostic interpretation performed at: [facility], [address] [place] [address] CLIA# [id number] [employer] Tender: Zack Baez MD Performed By: #### 6 6121-5 #### [facility] CLIA [id number] [address] [place] [address] GROSS DESCRIPTION Normal [facility] Comment on above: Order Comment: Speci men Type: TISSUE SPECIMEN Ordering Facility: [facility] Address: [address] [place] [address] Result Comment: Mayte mena, Mass, Left, Biopsy Received in formalin are multiple segments of cylindrical tissue aggregating to 2.0 x 0.4 x 0.1 cm, sabillon and of a soft and friable consistency. Totally submitted in one cassette. Gross examination performed at [facility], [address] [place] [address] JT 01/24/2025 5:57 PM Performed By: #### 6 6121-5 #### [facility] CLIA [id number] [address] [place] [address] [place] MICROSCOPIC DESCRIPTION Normal [facility] Comment on above: Order Comment: Speci men Type: TISSUE SPECIMEN Ordering Facility: [facility] Address: [address] [place] [address] Result Comment: Slid es reveal 4 cores [...] seen. Performed By: #### 6 6121-5 #### [facility] CLIA [id number] [address] [place] [address] [place] TYPE + SCREENon 01-24-2025 ABO O Normal [facility] Comment on above: Order Comment: Speci men Type: BLOOD SPECIMEN Ordering Facility: [facility] Address: [address] [place] [address] Performed By: #### T SCR #### [facility] CLIA [id number] [address] [place] [address] [place] Rh Nom (Bld) Positive Normal [facility] Comment on above: Order Comment: Speci men Type: BLOOD SPECIMEN Ordering Facility: [facility] Address: [address] [place] [address] Performed By: #### T SCR #### [facility] CLIA [id number] [address] [place] [address] [place] TYPE AND SCREEN EXPIRATION 01/27/2025 23:59 Normal [facility] Comment on above: Order Comment: Speci men Type: BLOOD SPECIMEN Ordering Facility: [facility] Address: [address] [place] [address] Performed By: #### T SCR #### [facility] CLIA [id number] [address] [place] [address] [place] US BIOPSY RENALon 01-24-2025 US BIOPSY RENAL * * *Final Report* * * DATE OF EXAM: Jan 24 2025 12:27PM [facility] 1070 - US BIOPSY RENAL / 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 Estrada CANCER PROGRAM COORDINATOR(S): None. CONSENT: The risks, benefits, treatment options, [...] performed by the: attending radiologist, without an visitor information assistant. ANESTHESIA/SEDATION: Conscious sedation: Versed: 1.0 mg [...] GUIDED LEFT RENAL MASS BIOPSY DESCRIBED. v .9.21 Sales Manager: YANY Transcribe Date/Time: Jan 24 2025 12:25P Dictated by : YOVANY ESTRADA DO This examination was interpreted and the report reviewed and electronically signed by: YOVANY ESTRADA DO on Jan 24 2025 1:25PM EST [id number] Normal [facility] aPTT PPPon 01-24-2025 aPTT Coag (PPP) [Time] 31.6 s Normal 23.0-32.4 [facility] Comment on above: Order Comment: Speci men Type: TISSUE SPECIMEN Ordering Facility: [facility] Address: [address] [place] [address] Performed By: #### 6 6121-5 #### [facility] CLIA [id number] [address] [place] [address] OF [place] NURSING PROGon 01-20-2025 NURSING PROG HNO ID: [id number] Author: NICHOLE DAMON RN Service: Radiology Author Type: Registered Nurse Type: Nursing Progress Note Filed: 01/20/2025 10:10 Note Text: Pre-procedure instructions: Contacted patient and confirmed appt. for kidney mass biopsy scheduled on 01/24/25, at [facility]. If instructions are not followed your procedure [...] the day of your procedure at the [facility] Lab, desk J1-4. Arrival: Please bring your Photo ID and Insurance Card. A general consent may need to be signed. Arrival at 8:30am to desk J1-4 (Lab) Then proceed to desk QB-1 ([facility]) and check in for your procedure. Compressor Station Chief Engineer/Transportation: How will you be arriving for your procedure? Private car. You will need a responsible adult to accompany you to and from the procedure. Your automobile drivers is required to stay with you until you are taken into the Procedure room. Recovery expectations: You can expect to be at the hospital for the majority of the day. Please do not schedule any other appointments the day of your procedure. Written instructions provided to patient via [employer] If you have any questions please call [phone] Normal [facility] Sarai 01-09-2025 CNPN Telephone ([facility]) SKYLER LE ([id number]) 1960 M Date Time Provider Department 01/09/25 BING ARVIZUKristi During your visit today, we recorded the following information about you: Orquidea Terrazas 01/09/2025 10:27 AM Signed Left voice message on patients phone and also 's Irene to call Interventional Radiology to schedule his biopsy. They have left 2 messages to call to schedule appointment. Allergies As of Date: 01/09/2025 (No Known Allergies) Date Reviewed: 01/03/2025 Reviewed by: Darrell Justin, JUANA - Fully Assessed Reason for Visit: BIOPSY APPOINTMENT [Other] Problem List As Of Date: 01/09/2025 (None) Encounter Status:Closed by ORQUIDEA TERRAZAS on 01/09/25 [facility] Basic metabolic 2000 panelon 01-03-2025 Anion gap [Moles/Vol] 15 mmol/L 8 - 15 mmol/L [facility] Calcium [Mass/Vol] 8.8 mg/dL 8.5 - 10. 2 mg/dL [facility] Chloride [Moles/Vol] 100 mmol/L 98 - 10 7 mmol/L [facility] CO2 [Moles/Vol] 23 mmol/L 22 - 30 mmol/L [facility] Creatinine [Mass/Vol] 1.46 mg/dL High 0.73 - 1.22 mg/dL [facility] GFR/1.73 sq M.predicted among non-blacks MDRD (S/P/Bld) [Vol rate/Area] 53 mL/min/{1.73_m2} Low - PINF [facility] Comment on above: Estimated Glomerular Filtration [...] 115 mg/dL High 74 - 99 mg/dL [facility] Comment on above: The [place] Di[employer] s Association (ADA) provides guidance for [...] Standards of Medical Care in Diabetes 2016, [place] [employer]. Diabetes Care. 2016.39(Suppl 1). Interpretation and review of laboratory results Abnormal [facility] Potassium [Moles/Vol] 4 mmol/L 3.7 - 5.1 mmol/L [facility] Sodium [Moles/Vol] 138 mmol/L 136 - 144 mmol/L [facility] Urea nitrogen [Mass/Vol] 18 mg/dL 9 - 24 mg/dL [facility] Anion gap [Moles/Vol] 15 mmol/L Normal 8-15 [facility] Comment on above: Order Comment: Miguelina thomas Type: BLOOD SPECIMENOrdering Facility: [facility] Address: [address] [place] [address] Performed By: #### 2 4321-2 ####OMAR LABORATORYCLIA [id number] [place] [address] [place] Calcium [Mass/Vol] 8.8 mg/dL Normal 8.5-10.2 [facility] Comment on above: Order Comment: Speci men Type: BLOOD SPECIMENOrdering Facility: [facility] Address: [address] [place] [address] Performed By: #### 2 4321-2 ####[facility] LABORATORYCLIA [id number] [place] [id number] [place] Chloride [Moles/Vol] 100 mmol/L Normal 98-107 [facility] Comment on above: Order Comment: Speci men Type: BLOOD SPECIMENOrdering Facility: [facility] Address: [address] [place] [address] Performed By: #### 2 4321-2 ####[facility] LABORATORYCLIA [id number] [place] [id number] [place] CO2 [Moles/Vol] 23 mmol/L Normal 22-30 [facility] Comment on above: Order Comment: Speci men Type: BLOOD SPECIMENOrdering Facility: [facility] Address: [address] [place] [address] Performed By: #### 2 4321-2 ####[facility] LABORATORYCLIA [id number] [place] [id number] [place] Creatinine [Mass/Vol] 1.46 mg/dL High 0.73-1.22 [facility] Comment on above: Order Comment: Speci men Type: BLOOD SPECIMENOrdering Facility: [facility] Address: [address] [place] [address] Performed By: #### 2 4321-2 ####[facility] LABORATORYCLIA [id number] [place] [id number] [facility] OF [place] Creatinine and Glomerular filtration rate.predicted panel (S/P/Bld) 53 mL/min/1.73m??? Low >=60 [facility] Comment on above: Order Comment: Speci men Type: BLOOD SPECIMENOrdering Facility: [facility] Address: [address] [place] [address] Result Comment: Samantha mated Glomerular Filtration Rate [...] actual GFR. Performed By: #### 2 4321-2 ####OMAR LABORATORYCLIA [id number] [place] [id number] [place] Glucose [Mass/Vol] 115 mg/dL High 74-99 [facility] Comment on above: Order Comment: Miguelina thomas Type: BLOOD SPECIMENOrdering Facility: [facility] Address: [address] [place] [address] Result Comment: The [place] Diabetes Association (ADA) provides guidance for cutoff [...] Standards of Medical Care in Diabetes 2016, [place] Diabetes Association. Diabetes Care. 2016.39(Suppl 1). Performed By: #### 2 4321-2 ####OMAR LABORATORYCLIA [id number] [place] [id number] [place] Potassium [Moles/Vol] 4.0 mmol/L Normal 3.7-5.1 [facility] Comment on above: Order Comment: Miguelina thomas Type: BLOOD SPECIMENOrdering Facility: [facility] Address: [address] [place] [address] Performed By: #### 2 4321-2 ####OMAR LABORATORYCLIA [id number] [place] [id number] [place] Sodium [Moles/Vol] 138 mmol/L Normal 136-144 [facility] Comment on above: Order Comment: Miguelina william Type: BLOOD SPECIMENOrdering Facility: [facility] Address: [address] [place] [address] Performed By: #### 2 4321-2 ####[facility] LABORATORYCLIA [id number] [place] [address] [place] Urea nitrogen [Mass/Vol] 18 mg/dL Normal 9-24 [facility] Comment on above: Order Comment: Speci men Type: BLOOD SPECIMENOrdering Facility: [facility] Address: [address] [place] [address] Performed By: #### 2 4321-2 ####[facility] LABORATORYCLIA [id number] [place] [id number] [facility] CNOVon 01-03-2025 CNOV Office Visit (URFMOB ) SKYLER LE ([id number]) 1960 Date Time Provider Department 01/03/25 2:20 PM BING ARVIZU During your visit today, we recorded the following information about you: Pulse Blood pressure 58/minute 149/70 Bing Arvizu MD 01/03/2025 3:11 PM Signed [facility] NEW PATIENT HISTORY AND [...] neck Extr (more content not included)... Normal [facility] 01-03-2025 [facility] Telephone (IRRFV) SKYLER LE ([id number]) 1960 M Date Time Provider Department 01/03/25 BING ARVIZU [facility] During your visit today, we recorded the following information about you: Mercy Walker 01/03/2025 3:48 PM Signed RADIOLOGY CALL CENTER INTAKE DATE: 01/03/2025 TIME: 3:46pm REQUESTING STAFF: Bing Arvizu MD PHONE/PAGER: [phone] SPECIFICS OF THE REQUEST: Renal Biopsy SPECIAL REQUESTS: TISSUE SAMPLE, LABWORK: N/A IS THIS REQUEST PART OF A RESEARCH PROTOCOL: No MEDICAL DIAGNOSIS: Neoplasm of uncertain behavior of left kidney TYPE AND DATE OF THE EXAM THAT IS THE BASIS OF THE REQUEST: CT Date: 12/14/2024 IMAGING: OUTSIDE [facility] Films: Where is study now: in patient's chart Note to all persons requesting biopsies: All biopsy requests will be scheduled as quickly as possible, based on the clinical urgency, availability of appointment times, the need to hold anti-thrombolytic therapy (aspirin, blood thinners) and the patient?s schedule, including the need for an available automobile drivers. If a percutaneous biopsy or drainage is [...] for this procedure: intermediate-high risk. Reference from [facility]: https://[facility].policytech. 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 Constipation Your Care Team Attending Physician - KARLA JAMES, Nikolai Berry Primary Care Physician - JESSICA DAVALOS CNP [...] Follow Up with KARLA JAMES, Nikolai Berry, URL When: Where: [facility] [address] , [place] [address]- Someone Will Contact You Regarding These Appointments [facility] External Ambulatory Referral, Service not offered at [facility], Urology, [facility], 12/20/24 8:54:00 EDT, Renal mass Medications What How Much When Instructions New dutasteride (dutasteride 0.5 mg Cap) 1 Capsules By Mouth Every day Duration: 30 Days Refills: 11 Pickup at [email or web address] #[email or web address] Unchanged allopurinol (allopurinol 300 mg Tab) By [...] physician if questions or concerns Pharmacy Information [email or web address] #[id number]: [address] [place], [place] [id number] [phone] Allergies No Known Medication Allergies Problems Ongoing [...] including vitamins, herbs, eye drops, creams, and tckk-wjx-vxatizs medicines. ??? Any problems you or family [...] urinate (incontinen (more content not included)... Normal [facility] Office/Clinic Noteon 12-20-2024 Urology Office/Clinic Note [...] for HG. CT AP w/wo con 12/14/24 [facility] - A 6.9 x 6.3 x 6.0 [...] immediate management. Unable to view image through [facility] portal, cannot assess if he would be [...] to lap robotic surgeon -Retrieve image from [facility] 2. BPH with obstruction/lower urinary tract symptoms [...] (K59.00: Constipation, unspecified) Has started taking fiber. [place] flomax helped with his constipation. Educated pt on bladder/bowel regimen. -Aggressive bowel management Follow-up With When Contact Information Nikolai ACOSTA MD, URL [facility] [address], [facility] [place] [address]- Additional Instructions: f/u pending referral to surgeon Patient Education Transurethral Resection of the Prostate Benign Prostatic Hyperplasia Renal Mass I, Jaenth Huynh, personally scribed for Dr. Acosta on 12/20/2024 08:52:10. . Documentation recorded by the scribJaneth madison, accurately reflects the services(s) I performed and decisions made by me. Authenticated by Dr. Acosta on 12/20/2024 08:56:59. Problem List/Past Medical History Ongoing Benign hypertension (high blood pressure) BPH with obst (more content not included)... Normal [facility] Comment on above: Result Comment: Elec tronically Signed By: Nikolia ACOSTA MD\.br\Date and Time Signed: 12/20/24 08:57 [...] Locations R1: This test was performed at: [facility], [address] [place] [address], [address]- , , [facility] Comment on above: Performed By: #### 2 [id number] #### [facility] [address] [place] [address] Urology Office/Clinic Noteon 10-24-2024 Urology Office/Clinic Note [...] E&M of New Patient Moderate 45-59 Min 85296 Urine Culture 2. Constipation (K59.00: Constipation, unspecified) Recommended aggressive bowel management. Ordered: E&M of New Patient Moderate 45-59 Min 17424 3. BPH with obstruction/lower urinary tract symptoms [...] then 1 tab po QD x 10d, [facility] #[id number], 182, cm, 10/24/24 9:12:00 EST, Height/Length Dosing, 130, kg, 10/24/24 9:12:00 EST, Weight Dosing Follow-up With When Contact Information [facility] [place] Additional Instructions: For procedure as scheduled. [...] 1 tab (more content not included)... Normal [facility] Comment on above: Result Comment: Elec tronically Signed By: NAKITA MENJIVAR PA-C\.br\Date and Time Signed: 10/24/24 13:53 EST CBC AUTO DIFFon 08-29-2022 BASO # 0.1 103/ul Normal 0.0-0.1 [facility] Comment on above: Performed By: #### C BC #### [facility] [address] [place] [address] [address] Med Angulo Basophils/100 WBC (Bld) 0.6 % Normal 0.2-2.0 [facility] Comment on above: Performed By: #### C BC #### [facility] [address] [place] [address] [address] Med Angulo EO # 0.2 103/ul Normal 0.0-0.7 [facility] Comment on above: Performed By: #### C BC #### [facility] [address] [place] [address] [address] Med Angulo Eosinophils/100 WBC (Bld) 1.3 % Normal 0.9-7.0 [facility] Comment on above: Performed By: #### C BC #### [facility] [address] [place] [address] Dr. Med Angulo Erythrocyte distribution width (RBC) [Ratio] 13.8 % Normal 11.0-15.0 [facility] Comment on above: Performed By: #### C BC #### [facility] [address] [place] [address] Dr. Med Angulo Hematocrit (Bld) [Volume fraction] 40.6 % Critically low 42.0-54.0 [facility] Comment on above: Performed By: #### C BC #### [facility] [address] [place] [address] Dr. Med Angulo Hemoglobin (Bld) [Mass/Vol] 13.7 g/dL Critically low 14.0-18.0 [facility] Comment on above: Performed By: #### C BC #### [facility] [address] [place] [address] Dr. Med Angulo IG # 0.13 10e3/ul Critically high 0.00-0.03 [facility] Comment on above: Performed By: #### C BC #### [facility] [address] [place] [address] [address] Med Angulo IG % 1.0 % Critically high 0.0-0.5 [facility] Comment on above: Performed By: #### C BC #### [facility] [address] [place] [address] Dr. Med Angulo LYMPH # 2.1 103/ul Normal 1.2-3.8 [facility] Comment on above: Performed By: #### C BC #### [facility] [address] [place] [address] Dr. Med Angulo Lymphocytes/100 WBC (Bld) 16.9 % Critically low 20.5-60.0 [facility] Comment on above: Performed By: #### C BC #### [facility] [address] [place] [address] Dr. Med Angulo MANUAL DIFF REQ NO Normal [facility] Comment on above: Performed By: #### C BC #### [facility] [address] [place] [address] Dr. Med Angulo MCH (RBC) [Entitic mass] 28.7 pg Normal 25.9-34.0 [facility] Comment on above: Performed By: #### C BC #### [facility] [address] [place] [address] Dr. Med Angulo MCHC (RBC) [Mass/Vol] 33.7 g/dL Normal 29.9-35.2 [facility] Comment on above: Performed By: #### C BC #### [facility] [address] [place] [address] Dr. Med Angulo MCV (RBC) [Entitic vol] 85.1 fL Normal 80.0-94.0 [facility] Comment on above: Performed By: #### C BC #### [facility] [address] [place] [address] Dr. Med Angulo MONO # 0.8 103/ul Normal 0.3-0.8 [facility] Comment on above: Performed By: #### C BC #### [facility] [address] [place] [address] Dr. Med Angulo Monocytes/100 WBC (Bld) 6.4 % Normal 1.7-12.0 [facility] Comment on above: Performed By: #### C BC #### [facility] [address] [place] [address] [address] Med Angulo NEUT # 9.3 103/ul Critically high 1.4-6.5 [facility] Comment on above: Performed By: #### C BC #### [facility] [address] [place] [id number] [address] Med Angulo Neutrophils/100 WBC (Bld) 73.8 % Normal 43.0-75.0 [facility] Comment on above: Performed By: #### C BC #### [facility] [address] [place] [address] [address] Med Angulo Platelet mean volume (Bld) [Entitic vol] 9.8 fL Normal 9.5-13.5 [facility] Comment on above: Performed By: #### C BC #### [facility] [address] [place] [address] [address] Med Angulo PLT 292 103/ul Normal 150-450 [facility] Comment on above: Performed By: #### C BC #### [facility] [address] [place] [address] [address] Med Angulo RBC 4.77 106/ul Normal 4.70-6.10 [facility] Comment on above: Performed By: #### C BC #### [facility] [address] [place] [address] [address] Med Angulo WBC 12.6 103/ul Critically high 4.0-11.0 [facility] Comment on above: Performed By: #### C BC #### [facility] [address] [place] [address] [address] Med Angulo GLYCOHEMOGLOBIN A1Con 2021 ADA RECOMMENDATION SEE BELOW Normal [facility] Comment on above: Result Comment: ADA RECOMMENDED LIMIT 4.0 - 6.0 ADA THERAPEUTIC TARGET < 7.0 ACTION SUGGESTED > 7.0 Performed By: #### A 1C #### [facility] [address] [place] [id number] [address] Med Angulo Glucose [Mass/Vol] 111 mg/dL Normal [facility] Comment on above: Performed By: #### A 1C #### [facility] [address] [place] [address] [address] Med Angulo HbA1c (Bld) [Mass fraction] 5.5 % Normal 4.5-6.2 [facility] Comment on above: Performed By: #### A 1C #### [facility] [address] [place] [address] [address] Med Angulo LIPID PROFILEon 08-29-2022 CHOL-HDL RATIO NORM SEE BELOW Normal [facility] Comment on above: Result Comment: 3.3 - 4.4 LOW RISK 4.4 - 7.1 AVERAGE RISK 7.1 - 11.0 MODERATE RISK >11.0 HIGH RISK Performed By: #### L IPID, CMP #### [facility] [address] [place] [address] [address] Med Angulo Cholesterol [Mass/Vol] 128 mg/dL Normal <=200 [facility] Comment on above: Performed By: #### L IPID, CMP #### [facility] [address] [place] [address] [address] Med Angulo Cholesterol in HDL [Mass/Vol] 31 mg/dL Critically low 40-60 [facility] Comment on above: Performed By: #### L IPID, CMP #### [facility] [address] [place] [address] [address] Med Angulo Cholesterol in LDL [Mass/Vol] 43.4 mg/dL Normal [facility] Comment on above: Performed By: #### L IPID, CMP #### [facility] [address] [place] [address] [address] Med Angulo Cholesterol.total/Cho lesterol in HDL [Mass ratio] 4.1 {ratio} Normal [facility] Comment on above: Performed By: #### L IPID, CMP #### [facility] [address] [place] [address] [address] Med Angulo HDL NORMAL > or = 60 mg/dl - LO W CARDIOVASCULAR RISK <40 mg/dl - HIGH CARDIOVASCULAR RISK Normal [facility] Comment on above: Performed By: #### L IPID, CMP #### [facility] [address] [place] [address] [address] Med Angulo LDL CALC NORMAL SEE BELOW Normal [facility] Comment on above: Result Comment: <100 mg/dl OPTIMAL 100 - 129 mg/dl NEAR OR ABOVE OPTIMAL 130 - 159 mg/dl BORDERLINE HIGH 160 - 189 mg/dl HIGH >190 mg/dl VERY HIGH Performed By: #### L IPID, CMP #### [facility] [address] [place] [address] [address] Med Angulo Triglyceride [Mass/Vol] 268 mg/dL Critically high <=150 [facility] Comment on above: Performed By: #### L IPID, CMP #### [facility] [address] [place] [address] [address] Med Angulo VLDL CALC 53.6 mg/dL Normal [facility] Comment on above: Performed By: #### L IPID, CMP #### [facility] [address] [place] [address] Dr. Med Angulo PROF 14(COMP METB)on 022 Albumin [Mass/Vol] 3.8 g/dL Normal 3.4-5.0 [facility] Comment on above: Performed By: #### L IPID, CMP #### [facility] [address] [place] [address] Dr. Med Angulo Albumin/Globulin [Mass ratio] 0.9 {ratio} Normal [facility] Comment on above: Performed By: #### L IPID, CMP #### [facility] [address] [place] [address] [address] Med Angulo ALP [Catalytic activity/Vol] 63 U/L Normal 46-116 [facility] Comment on above: Performed By: #### L IPID, CMP #### [facility] [address] [place] [address] [address] Med Angulo ALT [Catalytic activity/Vol] 60 U/L Normal 16-63 [facility] Comment on above: Performed By: #### L IPID, CMP #### [facility] [address] [place] [address] [address] Med Angulo Anion gap [Moles/Vol] 12.5 mmol/L Normal [facility] Comment on above: Performed By: #### L IPID, CMP #### [facility] [address] [place] [address] [address] Med Angulo AST [Catalytic activity/Vol] 40 U/L Critically high 15-37 [facility] Comment on above: Performed By: #### L IPID, CMP #### [facility] [address] [place] [address] Dr. Med Angulo Bilirubin [Mass/Vol] 0.5 mg/dL Normal 0.2-1.0 [facility] Comment on above: Performed By: #### L IPID, CMP #### [facility] [address] [place] [address] Dr. Med Angulo Calcium [Mass/Vol] 9.2 mg/dL Normal 8.5-10.1 [facility] Comment on above: Performed By: #### L IPID, CMP #### [facility] [address] [place] [address] Dr. Med Angulo Chloride [Moles/Vol] 99 mmol/L Normal 98-107 [facility] Comment on above: Performed By: #### L IPID, CMP #### [facility] [address] [place] [address] Dr. Med Angulo CO2 [Moles/Vol] 29.9 mmol/L Normal 21.0-32.0 [facility] Comment on above: Performed By: #### L IPID, CMP #### [facility] [address] [place] [address] Dr. Med Angulo Creatinine [Mass/Vol] 1.83 mg/dL Critically high 0.70-1.30 [facility] Comment on above: Performed By: #### L IPID, CMP #### [facility] [address] [place] [address] Dr. Med Angulo EGFR-AF TONGAN 46 mL/min/1.73m2 Critically low >=60 [facility] Comment on above: Performed By: #### L IPID, CMP #### [facility] [address] [place] [address] Dr. Med Angulo EGFR-NON AF TONGAN 38 mL/min/1.73m2 Critically low >=60 [facility] Comment on above: Performed By: #### L IPID, CMP #### [facility] [address] [place] [address] Dr. Med Angulo Globulin (S) [Mass/Vol] 4.4 g/dL Normal [facility] Comment on above: Performed By: #### L IPID, CMP #### [facility] [address] [place] [address] Dr. Med Angulo Glucose [Mass/Vol] 95 mg/dL Normal 74-106 [facility] Comment on above: Performed By: #### L IPID, CMP #### [facility] [address] [place] [address] Dr. Med Angulo Potassium [Moles/Vol] 4.4 mmol/L Normal 3.5-5.1 [facility] Comment on above: Performed By: #### L IPID, CMP #### [facility] [address] [place] [address] Dr. Med Angulo Protein [Mass/Vol] 8.2 g/dL Normal 6.4-8.2 [facility] Comment on above: Performed By: #### L IPID, CMP #### [facility] [address] [place] [address] Dr. Med Angulo Sodium [Moles/Vol] 137 mmol/L Normal 136-145 [facility] Comment on above: Performed By: #### L IPID, CMP #### [facility] [address] [place] [address] Dr. Med Angulo Urea nitrogen [Mass/Vol] 26.0 mg/dL Critically high 7.0-18.0 [facility] Comment on above: Performed By: #### L IPID, CMP #### [facility] [address] [place] [address] Dr. Med Angulo Urea nitrogen/Creatinine [Mass ratio] 14.2 mg/mg Normal [facility] Comment on above: Performed By: #### L IPID, CMP #### [facility] [address] [place] [address] Dr. Med Angulo Vital Signs Date Time Vital Sign Value Performing Clinician Facility 02-27-2025 11:00-0400 SaO2% (BldA) [Mass fraction] 100 % [facility] Comment on above: Order Comment: Specimen Type: ARTERIAL B LOOD SPECIMENOrdering Facility: [facility] Address: [address] [place] [address] Performed By: #### A LLBG ####[facility] [id number] [place] [id number] [facility] 02-27-2025 10:07-0400 SaO2% (BldA) [Mass fraction] 99 % [facility] Comment on above: Order Comment: Specimen Type: ARTERIAL B LOOD SPECIMENOrdering Facility: [facility] Address: [address] [place] [address] Performed By: #### A LLBG ####[facility]ATORYCLIA [id number] [place] [id number] [facility] 02-27-2025 09:07-0400 SaO2% (BldA) [Mass fraction] 100 % [facility] Comment on above: Order Comment: Specimen Type: ARTERIAL B LOOD SPECIMENOrdering Facility: [facility] Address: [address] [place] [address] Performed By: #### A LLBG ####[facility]ORY[facility] [id number] [place] [id number] [facility] 02-17-2025 09:13-0400 Body temperature 98.4 [degF] Chair DorsaVI Work Phone: [facility] 02-17-2025 09:13-0400 Diastolic blood pressure 80 mm[Hg] Chair DorsaVI Work Phone: [facility] 02-17-2025 09:13-0400 Heart rate 63 /min Chair Hamlin Work Phone: [facility] 02-17-2025 09:13-0400 Respiratory rate 16 /min Chair DorsaVI Work Phone: [facility] 02-17-2025 09:13-0400 SaO2% (BldA) [Mass fraction] 98 % Chair Wily Work Phone: [facility] [facility] 02-17-2025 09:13-0400 Systolic blood pressure 136 mm[Hg] Chair Wily Work Phone: [facility] 02-07-2025 13:47-0400 Body height 182.9 cm Pacc 2 Work Phone: [facility] 02-07-2025 13:47-0400 Body mass index (BMI) [Ratio] 37.3 kg/m2 Pacc 2 Work Phone: [facility] 02-07-2025 13:47-0400 Body temperature 98.49 [degF] Pacc 2 Work Phone: [facility] 02-07-2025 13:47-0400 Body weight 124.74 kg Pacc 2 Work Phone: [facility] 02-07-2025 13:47-0400 Diastolic blood pressure 72 mm[Hg] Pacc 2 Work Phone: [facility] 02-07-2025 13:47-0400 Heart rate 48 /min Pacc 2 Work Phone: [facility] 02-07-2025 13:47-0400 Respiratory rate 16 /min Pacc 2 Work Phone: [facility] 02-07-2025 13:47-0400 SaO2% (BldA) [Mass fraction] 99 % Pacc 2 Work Phone: [facility] 02-07-2025 13:47-0400 Systolic blood pressure 144 mm[Hg] Pacc 2 Work Phone: [facility] 01-03-2025 14:37-0400 Diastolic blood pressure 70 mm[Hg] Bing ortega MD Work Phone: [facility] 01-03-2025 14:37-0400 Heart rate 58 /min Bing Arvizu MD Work Phone: [facility] 01-03-2025 14:37-0400 Systolic blood pressure 149 mm[Hg] Bing woodson MD Work Phone: [facility] 10-24-2024 08:56-0500 Blood Pressure Location NAKITA MENJIVAR [facility] 10-24-2024 08:56-0500 Body temperature 98.6 [degF] NAKITA MENJIVAR [facility] 10-24-2024 08:56-0500 Diastolic blood pressure 70 mm[Hg] NAKITA MENJIVAR [facility] 10-24-2024 08:56-0500 Heart rate 75 /min NAKITA MENJIVAR [facility] 10-24-2024 08:56-0500 Respiratory rate 16 /min NAKITA MENJIVAR [facility] 10-24-2024 08:56-0500 Systolic blood pressure 138 mm[Hg] NAKITA MENJIVAR [facility] Encounters Encounter Date Encounter Type Care Provider Facility Start: 03-14-2025 ambulatory [facility] Start: 03-14-2025 End: 03-14-2025 Patient encounter procedure Nikolai ACOSTA [facility] Start: 03-12-2025 End: 03-12-2025 Follow-up encounter Bing Arvizu MD Work Phone: Urology Start: 03-12-2025 End: 03-12-2025 Telephone encounter Bing Arvizu MD Work Phone: Urology Start: 03-11-2025 End: 03-11-2025 Telephone encounter Tamanna Zhu RESEARCH PROFESSOR OF BIOSTATISTICS.PATTERN SETTER Work Phone: Provider Adult Start: 03-10-2025 End: 03-10-2025 Orders Only Tamanna Zhu RESEARCH PROFESSOR OF BIOSTATISTICS.PATTERN SETTER Work Phone: [facility] Comment on above: Hyperkalemia (Primar y Dx) Start: 03-05-2025 End: 03-05-2025 Telephone encounter Bing Arvizu MD Work Phone: Urology Comment on above: Patient Question Start: 03-04-2025 End: 03-04-2025 ambulatory TAMANNA ZHU Facility:[facility] Start: 02-28-2025 End: 02-28-2025 Orders Only Tamanna Zhu RESEARCH PROFESSOR OF BIOSTATISTICS.PATTERN SETTER Work Phone: [facility] Comment on above: ODALIS (acute kidney in jury) (Primary Dx) Start: 02-27-2025 End: 02-28-2025 Evaluation and management of inpatient BING ARVIZU Facility:[facility] Start: 02-19-2025 End: 02-19-2025 ambulatory ROB ROMERO Facility:[facility] Start: 02-17-2025 End: 02-17-2025 ambulatory Chair Yany Wily Work Phone: Hematology/Oncology Comment on above: Intestinal malabsorp tion, unspecified type (HCC) (Primary Dx); Iron deficiency anemia, unspecified iron deficiency anemia type Start: 02-10-2025 End: 02-10-2025 Telephone encounter Rob Romero RESEARCH PROFESSOR OF BIOSTATISTICS.PATTERN SETTER Work Phone: Pre Anesthesia Comment on above: Results Iron deficiency anem ia, unspecified iron deficiency anemia type (Primary Dx); Intestinal malabsorption, unspecified type (HCC) Patient Update Start: 02-07-2025 End: 02-07-2025 ambulatory ROB ROMERO Facility:[facility] Start: 02-07-2025 Encounter for other preprocedural examination BG NAVAS [facility] Start: 02-07-2025 End: 02-07-2025 Admission to establishment [facility] 2 Work Phone: Pre Anesthesia Start: 02-07-2025 End: 02-07-2025 Anesthesia consultation [place] [id number] Work Phone: Pre Anesthesia Comment on above: Pre-op evaluation (P rimary Dx); Depression, unspecified depression type; Type 2 diabetes mellitus without complication, unspecified whether mcc insulin use (HCC); BPH with obstruction/lower urinary tract symptoms; Hypertension, unspecified type; ROSA M (obstructive sleep apnea); Class 2 obesity due to excess calories without serious comorbidity in adult, unspecified BMI Start: 02-07-2025 End: 02-07-2025 Preprocedural examination done [place] [id number] Work Phone: [facility] Start: 02-07-2025 End: 02-07-2025 [facility] Start: 01-24-2025 End: 01-24-2025 ambulatory [facility] Facility:[facility] Start: 01-20-2025 End: 01-20-2025 Orders Only [...] Start: 12-20-2024 End: 12-20-2024 ambulatory Nikolai ACOSTA Facility:[facility] Start: 11-11-2024 End: 11-11-2024 ambulatory Nikolai ACOSTA Facility:[id number] Start: 10-24-2024 End: 10-24-2024 Lab Drop off NAKITA MENJIVAR [facility] Start: 10-24-2024 End: 10-24-2024 ambulatory NAKITA Gricelda TIARA Facility[facility] Start: 10-24-2024 End: 10-24-2024 Patient encounter procedure NAKITA RICERY [facility] Start: 10-11-2024 ambulatory NAKITAWILLIAM MENJIVAR Facility :[facility] [place] Start: 09-03-2022 Encounter for genera l adult medical examination without abnormal findings JESSICA DAVALOS [facility] Start: 08-29-2022 End: 08-30-2022 ambulatory JESSICA DAVALOS Facility:[facility] Start: 08-29-2022 End: 08-30-2022 Encounter for general adult medical examination without abnormal findings JESSICA DAVALOS Facility: Procedures Date Procedure Procedure Detail Performing Clinician Start: 02-27-2025 Antibody screen BING ARVIZU Comment on above: Order Comment: Speci men Type: BLOOD SPECIMENOrdering Facility: [facility] Address: [address] [place] [address] Performed By: #### T SCR ####[facility] [id number] [address] Start: 01-24-2025 Antibody screen BG NAVAS Comment on above: Order Comment: Speci men Type: BLOOD SPECIMEN Ordering Facility: [facility] Address: [address] [place] [address] Performed By: #### T SCR #### [facility] CLIA [id number] [address] [place] [address] Start: 11-11-2024 Cystoscopy Nikolai SANDERS Colonoscopy NAKITA MENJIVAR Plan of Treatment Date Care Activity Detail Author Start: 2034 RSV Vaccine (1 - 1-d ose 75+ series) RSV Vaccine (1 - 1-dose 75+ series) [facility] Start: 01-04-2028 Diabetes Screening Diabetes Screenin g [facility] Start: 08-10-2025 Hemoglobin A1c measurement HbA1C [facility] Start: 06-02-2025 Influenza vaccination Influenz a Vaccine (Season Ended) [facility] Start: 03-17-2025 End: 03-17-2025 ambulatory 03/17/2025 1:00 PM EDT Visit (SP) Office Hematology/Oncology [address] [place] [address] Ernesto Phoenix MD [address] [place] [address] renal cell carcinoma Hematology/Oncology Comment on above: renal cell carcinoma Start: 03-10-2025 End: 06-09-2025 Renal function 2000 panel - Serum or Plasma [facility] Work Phone: Comment on above: Expected: 03/10/2025 , Expires: 06/09/2025 Start: 02-28-2025 End: 05-30-2025 Renal function 2000 panel - Serum or Plasma RENAL FUNCTION PANEL Lab Routine ODALIS (acute kidney injury) Expected: 02/28/2025, Expires: 05/30/2025 [facility] Work Phone: Comment on above: Expected: 02/28/2025 , Expires: 05/30/2025 Start: 02-27-2025 End: 02-27-2025 Admission to same day surgery center 02/27/2025 11:30 AM EDT - 02/27/2025 3:15 PM EDT Surgery [facility] Operating Room [address] [place] [address] Bing Arvizu MD [address] [place] [address] ROBOTIC LAPAROSCOPIC NEPHRECTOMY PARTIAL [facility] Operating Room Comment on above: ROBOTIC LAPAROSCOPIC NEPHRECTOMY PARTIAL Start: 02-27-2025 End: 02-27-2025 Laparoscopy surg partial nephrectomy ROBOTIC LAPAROSCOPIC NEPHRECTOMY PARTIAL Neoplasm of uncertain behavior of left kidney 02/27/2025 11:30 AM EDT [facility] Start: 02-27-2025 Subsequent hospital visit by physician 02/27/2025 11:30 AM EDT Hospital Encounter [facility] Operating Room [address] [place] [address] Bing Arvizu MD [address] [place] [address] 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] [facility] Operating Room Comment on above: Neoplasm of uncertai n behavior of left kidney [D41.02] Start: 02-27-2025 End: 02-27-2025 Admission to same day surgery center 02/27/2025 7:30 AM EDT - 02/27/2025 11:15 AM EDT Surgery [facility] Operating Room [address] [place] [address] Bing Arvizu MD [address] [place] [address] ROBOTIC LAPAROSCOPIC NEPHRECTOMY PARTIAL [facility] Operating Room Comment on above: ROBOTIC LAPAROSCOPIC NEPHRECTOMY PARTIAL Start: 02-27-2025 End: 02-27-2025 Laparoscopy surg partial nephrectomy ROBOTIC LAPAROSCOPIC NEPHRECTOMY PARTIAL Neoplasm of uncertain behavior of left kidney 02/27/2025 7:30 AM EDT [facility] Start: 02-27-2025 Subsequent hospital visit by physician 02/27/2025 7:30 AM EDT Hospital Encounter [facility] Operating Room [address] [place] [address] Bing Arvizu MD [address] [place] [address] 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] [facility] Operating Room Comment on above: Neoplasm of uncertai n behavior of left kidney [D41.02] Start: 02-19-2025 End: 02-19-2025 ambulatory 02/19/2025 9:00 AM EDT [facility] Hematology/Oncology [address] [place] [address] [place] [address] [facility] Hematology/Oncology Comment on above: [facility] Start: 02-07-2025 End: 05-09-2025 Ferritin [Mass/volume] in Serum or Plasma [facility] Comment on above: Expected: 02/07/2025 , Expires: 05/09/2025 Start: 02-07-2025 End: 05-09-2025 Hemoglobin A1c in Blood [facility] Comment on above: Expected: 02/07/2025 , Expires: 05/09/2025 Start: 02-07-2025 End: 05-09-2025 Iron and Iron binding capacity panel - Serum or Plasma [facility] Work Phone: Comment on above: Expected: 02/07/2025 , Expires: 05/09/2025 Start: 02-07-2025 End: 02-07-2025 Anesthesia consultation 02/07/2025 1:40 PM EDT PAT Pre Anesthesia [address] [place] [address] 2, Pacc [place] [address] [place] [address] DOS 02/27 Pre Anesthesia Comment on above: DOS 02/27 Start: 02-06-2025 Subsequent hospital visit by physician 02/06/2025 Hospital Encounter [facility] Operating Room [address] [place] [address] Bing Arvizu MD [address] [place] [address] 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] [facility] Operating Room Comment on above: Neoplasm of uncertai n behavior of left kidney [D41.02] Start: 01-24-2025 End: 04-25-2025 CBC panel - Blood by Automated count COMPLETE BLOOD COUNT Lab STAT Renal mass, left Expected: 01/24/2025, Expires: 04/25/2025 [facility] Work Phone: Comment on above: Expected: 01/24/2025 , Expires: 04/25/2025 Start: 01-24-2025 End: 04-25-2025 PT panel - Platelet poor plasma by Coagulation assay PROTHROMBIN TIME Lab STAT Renal mass, left Expected: 01/24/2025, Expires: 04/25/2025 [facility] Comment on above: Expected: 01/24/2025 , Expires: 04/25/2025 Start: 01-24-2025 End: 01-24-2025 Admission to same day surgery center 01/24/2025 11:00 AM EDT - 01/24/2025 12:00 PM EDT Surgery Angio [address] [place] [address] Bg Navas MD [address], [address] [address] BIOPSY KIDNEY PERCUTANEOUS Angio Comment on above: BIOPSY KIDNEY PERCUT ANEOUS Start: 01-24-2025 End: 01-24-2025 Renal biopsy prq trocar/needle BIOPSY KIDNEY PERCUTANEOUS Neoplasm of uncertain behavior of left kidney 01/24/2025 11:00 AM EDT ANGIO HB6 Start: 01-24-2025 Subsequent hospital visit by physician 01/24/2025 11:00 AM EDT Hospital Encounter [facility] [address] [place] [address] Bg Navas MD [address], [address] [address] 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] Angio Comment on above: Neoplasm of uncertai n behavior of left kidney [D41.02] Start: 01-06-2025 End: 04-07-2025 CBC W Auto Differential panel - Blood COMPLETE BLOOD COUNT AND DIFFERENTIAL Lab Routine Renal mass, left Expected: 01/06/2025, Expires: 04/07/2025 [facility] Work Phone: Comment on above: Expected: 01/06/2025 , Expires: 04/07/2025 Start: 01-06-2025 End: 04-07-2025 PT panel - Platelet poor plasma by Coagulation assay PROTHROMBIN TIME Lab Routine Renal mass, left Expected: 01/06/2025, Expires: 04/07/2025 [facility] Comment on above: Expected: 01/06/2025 , Expires: 04/07/2025 Start: 01-03-2025 End: 04-04-2025 aPTT in Platelet poor plasma by Coagulation assay ACTIVATED PARTIAL THROMBOPLASTIN TIME Lab Routine Neoplasm of uncertain behavior of left kidney Expected: 01/03/2025, Expires: 04/04/2025 [facility] Comment on above: Expected: 01/03/2025 , Expires: 04/04/2025 Start: 01-03-2025 End: 04-04-2025 Bacteria identified in Urine by Culture BACTERIAL CULTURE, URINE Microbiology Routine Neoplasm of uncertain behavior of left kidney Expected: 01/03/2025, Expires: 04/04/2025 [facility] Comment on above: Expected: 01/03/2025 , Expires: 04/04/2025 Start: 01-03-2025 End: 04-04-2025 CBC W Auto Differential panel - Blood COMPLETE BLOOD COUNT AND DIFFERENTIAL Lab Routine Neoplasm of uncertain behavior of left kidney Expected: 01/03/2025, Expires: 04/04/2025 [facility] Work Phone: Comment on above: Expected: 01/03/2025 , Expires: 04/04/2025 Start: 01-03-2025 End: 04-04-2025 Comprehensive metabolic 2000 panel - Serum or Plasma COMPREHENSIVE METABOLIC PANEL Lab Routine Neoplasm of uncertain behavior of left kidney Expected: 01/03/2025, Expires: 04/04/2025 [facility] Comment on above: Expected: 01/03/2025 , Expires: 04/04/2025 Start: 01-03-2025 End: 04-04-2025 CONFIRM BLOOD TYPE CONFIRM BLOOD TYPE Blood Bank Routine Neoplasm of uncertain behavior of left kidney Expected: 01/03/2025, Expires: 04/04/2025 [facility] Comment on above: Expected: 01/03/2025 , Expires: 04/04/2025 Start: 01-03-2025 End: 04-04-2025 PT panel - Platelet poor plasma by Coagulation assay PROTHROMBIN TIME Lab Routine Neoplasm of uncertain behavior of left kidney Expected: 01/03/2025, Expires: 04/04/2025 [facility] Comment on above: Expected: 01/03/2025 , Expires: 04/04/2025 Start: 01-03-2025 End: 04-04-2025 TYPE + SCREEN TYPE + SCREEN Blood Bank Routine Neoplasm of uncertain behavior of left kidney Expected: 01/03/2025, Expires: 04/04/2025 [facility] Comment on above: Expected: 01/03/2025 , Expires: 04/04/2025 Start: 12-31-2024 Covid-19 Vaccine ( season) Covid-19 Vaccine ( season) [facility] Start: 10-02-2024 Advance Directive Discussion Advance Directive Discussion [facility] Start: 06-02-2024 Influenza vaccination Influenza Vacc ine (#1) [facility] Start: 2019 RSV Vaccine (1 - Ris k 60-74 years 1-dose series) RSV Vaccine (1 - Risk 60-74 years 1-dose series) [facility] Start: 2014 Prostate specific antigen measurement Prostate Cancer Screening Discussion [facility] Start: 2009 Pneumococcal Vaccine : 50+ (1 of 1 - PCV) Pneumococcal Vaccine: 50+ (1 of 1 - PCV) [facility] Start: 2009 Shingrix Vaccine (1 of 2) Shingrix Vaccine (1 of 2) [facility] Start: 01-06-2004 Prostate specific antigen measurement Prostate Cancer Screening Discussion [facility] Start: 01-06-2004 Screening for malign ant neoplasm of colon [facility] Start: 1994 Lipid panel Lipid Screening [facility] Start: 1978 Pneumococcal Vaccine : 50+ (1 of 2 - PCV) Pneumococcal Vaccine: 50+ (1 of 2 - PCV) [facility] Start: 1978 Urine microalbumin profile DTaP,Tdap,Td Vaccine (1 - Tdap) [facility] Start: 1977 Annual PCP Team Physician Advisor lianne Disease Visit Annual PCP Team Chronic Disease Visit [facility] Start: 1977 Anxiety Screening Anxiety Screening [facility] Start: 1977 BP Controlled (<130/80) BP Controlle d (<130/80) [facility] Start: 1977 Depression Screening Depression Scre ening [facility] Start: 1977 Hepatitis B surface antibody level LDL Cholesterol [facility] Start: 1977 Hepatitis C screening Hepatitis C Sc reening [facility] Start: 1977 HIV screening [facility] Start: 1969 Diabetic foot examination Diabetic Foot Exam [facility] Start: 1969 Glaucoma screening Dilated Retinal E xam [facility] Start: 1969 Hepatitis B screening Urine Al bumin:Creatinine Ratio [facility] Start: 01-06-1964 Hemoglobin A1c measurement HbA1C [facility] ECG COMPLETE ECG COMPLETE ECG Routine Pre-op evaluation Depression, unspecified depression type Type 2 diabetes mellitus without complication, unspecified whether mcc insulin use (HCC) BPH with obstruction/lower urinary tract symptoms Hypertension, unspecified type ROSA M (obstructive sleep apnea) Class 2 obesity due to excess calories without serious comorbidity in adult, unspecified BMI Ordered: 02/07/2025 [facility] Comment on above: Ordered: 02/07/2025 Guidance for percutaneous biopsy of Kidney IMAGING GUIDED BIOPSY RENAL Radiology Routine Neoplasm of uncertain behavior of left kidney Ordered: 01/03/2025 [facility] Work Phone: Comment on above: Ordered: 01/03/2025 Laparoscopy surg partial nephrectomy ROBOTIC LAPAROSCOPIC NEPHRECTOMY PARTIAL Neoplasm of uncertain behavior of left kidney [facility] Immunizations Immunization Date Immunization Notes Care Provider Yaakov hough 07-02-2024 SARS-CoV-2 (COVID-19 ) mRNA-1273 vaccine NAKITA MENJIVAR [facility] 07-30-2022 SARS-CoV-2 (COVID-19 ) [id number] Nikolai ACOSTA [facility] 02-26-2022 SARS-CoV-2 mRNA (ueguimqqynh-ibox-dazqh se) vaccine Nikolai ACOSTA [facility] 08-29-2021 SARS-CoV-2 (COVID-19 ) mRNA BNT-162b2 vax Nikolai ACOSTA [facility] 01-21-2021 SARS-CoV-2 (COVID-19 ) mRNA BNT-162b2 ayad ACOSTA [facility] 12-31-2020 SARS-CoV-2 (COVID-19 ) mRNA BNT-162b2 ayad ACOSTA [facility] Payers Date Payer Category Payer Private Health Insurance [id number] 2023 Unknown [id number] 1959 Unknown [id number] 1959 Unknown [id number] 1959 Unknown [id number] 2.16.8 [id number] 1959 Unknown [id number] [id number] 1959 Unknown [id number] 2.16.8 [id number] 1959 Unknown [id number] 2.16.8 [id number] 1959 Unknown [id number] [id number] Social History Date Type Detail Facility Start: 10-24-2024 End: 12-20-2024 Tobacco smoking status Never smoked tobacco (finding) [facility] Tobacco smoking status Never [facility] Start: 01-03-2025 End: 02-07-2025 Sex Assigned At Male [facility] consumption unknown [facility] Start: 01-03-2025 End: 02-07-2025 History of Social function [facility] Start: 1960 Sex assigned at Not on file [facility] Start: 02-07-2025 Tobacco use and exposure Smokeless tobacco non-user [facility] Start: 02-07-2025 Alcoholic beverage intake Current drinker of alcohol (finding) [facility] Start: 02-07-2025 Alcohol Comment once a year, if that [facility] Start: 1960 Sex assigned at Male [facility] Start: 03-02-2025 Gender identity Identifies as male gender (finding) [facility] Start: 03-02-2025 Sexual orientation Heterosexual (julito blakely) [facility] Sexual Orientation [facility] Start: 05-21-2013 Sex Male (finding) [facility] Functional Status Date Assessment Result Facility 02-28-2025 Are you deaf, or do you have serious difficulty hearing No 02/28/2025 3:36 PM Latrice Pike RN No [facility] 02-28-2025 Are you blind, or do you have serious difficulty seeing, even when wearing glasses No 02/28/2025 3:36 PM Latrice Pike RN No [facility] 02-28-2025 Do you have serious difficulty walking or climbing stairs No 02/28/2025 3:36 PM Latrice Pike RN No [facility] 02-28-2025 Do you have difficul ty dressing or bathing No 02/28/2025 3:36 PM Latrice Pike, JUANA No [facility] 02-28-2025 Because of a physica l, mental, or emotional condition, do you have difficulty doing errands alone such as visiting a physician's office or shopping No 02/28/2025 3:36 PM Latrice Pike, JUANA No [facility] 10-24-2024 Functional Status N/A [facility] Mental Status Date Assessment Result Facility 02-28-2025 Because of a physica l, mental, or emotional condition, do you have serious difficulty concentrating, remembering, or making decisions No 02/28/2025 3:36 PM Latrice Pike, JUANA No [facility] Clinical Notes 10-24-2024 to 03-14-2025 Telephone Encounter - Bing Arvizu MD - 03/12/2025 2:10 PM EDTTelephone Encounter - Bing Arvizu MD - 03/12/2025 2:10 PM EDTTelephone Encounter - Darrell Justin RN - 03/12/2025 1:30 PM EDT Note Date & Type Note Facility 03-14-2025 Hospital Discharge instructions Patient Education 03/14/2025 08:40:04 Kidney Cancer Kidney Cancer Kidney cancer is a type of cancer in which an abnormal growth of cells (tumor) forms in one or both kidneys. The kidneys filter waste from your blood and make urine. Kidney cancer may spread to other parts of your body. This type of cancer may also be called renal cell carcinoma. What are the causes? The cause of this condition is not known. What increases the risk? You may be more likely to develop kidney cancer if: You are over age 60. You have certain conditions that are passed from parent to child (inherited). These include von Hippel-Lindau disease, tuberous sclerosis, and hereditary papillary renal carcinoma. You smoke or have been exposed to certain chemicals. You have advanced kidney disease, especially if you need to use a machine to clean your blood (dialysis). You are obese. You have high blood pressure (hypertension). You are male. What are the signs or symptoms? At first, kidney cancer may not cause any symptoms. As the cancer grows, symptoms may include: Blood in the urine. Pain in the upper back or abdomen, just below the rib cage. You may feel pain on one or both sides of your body. Tiredness (fatigue). Weight loss that cannot be explained. Fever. How is this diagnosed? This condition may be diagnosed based on: Your symptoms. Your medical history. A physical exam. You may also have tests, such as: Blood and urine tests. X-rays. Imaging tests, such as CT scans, MRIs, and PET scans. Angiogram. This is when dye is injected into your blood to show your blood vessels. Intravenous pyelogram. This is when dye is injected into your blood to show your kidneys and the other organs that help with making and storing urine. Biopsy. This is when a piece of tissue is removed from your kidney and looked at under a microscope. Your cancer will be assessed (staged), based on how severe it is and how much it has spread. How is this treated? Treatment depends on the type and stage of the cancer. Treatment may include: Surgery to remove: ?Just the tumor (nephron-sparing surgery). ?The entire kidney (nephrectomy). ?The kidney, some of the healthy tissue around it, nearby lymph nodes, and sometimes the adrenal gland (radical nephrectomy). Medicines to: ?Kill cancer cells (chemotherapy). ?Help your body's disease-fighting system (immune system) fight cancer cells. This is known as immunotherapy. Radiation therapy. This uses high-energy rays to kill cancer cells. Targeted therapy to only attack genes and proteins that allow a tumor to grow. This type of therapy tries to limit damage to your healthy cells. Cryoablation. This uses gas or liquid to freeze cancer cells. It is sent through a needle. Radiofrequency ablation. This uses high-energy radio waves to destroy cancer cells. It is sent through a needle-like probe. Embolization. This is a procedure to block the artery that supplies blood to the tumor. Follow these instructions at home: Eating and drinking Some of your treatments may affect your appetite and your ability to chew and swallow. If you have problems eating, or if you do not have an appetite, meet with an expert in diet and nutrition (dietitian). If you have side effects that affect eating, it may help to: ?Eat smaller meals more often. ?Eat bland or soft foods. ?Avoid foods that are hot, spicy, or hard to swallow. ?Drink shakes or supplements that are high in nutrition and calories. Do not drink alcohol. Lifestyle Do not use any products that contain nicotine or tobacco. These products include cigarettes, chewing tobacco, and vaping devices, such as e-cigarettes. If you need help quitting, ask your health care provider. Get enough sleep. Most adults need 6 8 hours of sleep each night. During treatment, you may need more sleep. General instructions Take qlcy-nvl-ugzuyss and prescription medicines only as told by your health care provider. Consider joining a support group. This can help you cope with the stress of having kidney cancer. Work with your health care provider to manage any side effects of treatment. Keep all follow-up visits. Your health care provider will want to make sure your treatment is working. Where to find more information [place] [employer]: cancer.org [place] [employer] [place] (NCI): cancer.gov Contact a health care provider if: You bruise or bleed easily. You lose weight without trying. You have new or worse fatigue or weakness. You have a fever. Your pain suddenly increases. You have more blood in your urine. Your skin or the white parts of your eyes turn yellow (jaundice). Get help right away if: You have chest pain. You are short of breath. You have irregular heartbeats (palpitations). These symptoms may be an emergency. Get help right away. Call 911. Do not wait to see if the symptoms will go away. Do not drive yourself to the hospital. This information is not intended to replace advice given to you by your health care provider. Make sure you discuss any questions you have with your health care provider. Document Revised: 02/28/2023 Document Reviewed: 02/28/2023 [employer] Patient Education 2023 [employer]. Follow Up Care 12/20/2024 09:17:13 With:KARLA JAMES, Nikolai Berry, URL Address: [address] [place] [address]- When: Unknown [facility] 03-12-2025 Telephone encounter Note FINAL DIAGNOSIS A. Lymph nodes, para-aortic, regional resection: - Metastatic renal cell carcinoma with sarcomatoid differentiation in one of two lymph nodes (10/03). B. Kidney, left, radical nephrectomy: - Renal cell carcinoma, unclassified, with sarcomatoid differentiation, grade 4, 8 cm. - Tumor invades perinephric fat, renal sinus, and pelvis. - Margins are negative for tumor. - Metastatic renal cell carcinoma with sarcomatoid differentiation in one hilar lymph node (10/02). - Portion of benign adrenal gland. Called and gave the pathology report. Told him that this was very aggressive renal cell carcinoma. I recommend referral to medical oncology to talk about adjuvant options. Patient understood and agreed. He is recovering well from surgery otherwise. We talked about staying away from strenuous activity for 6 weeks after surgery. Bing Arvizu MD [facility] Work Phone: 03-12-2025 Miscellaneous Notes FINAL DIAGNOSIS A. Lymph nodes, para-aortic, regional resection: - Metastatic renal cell carcinoma with sarcomatoid differentiation in one of two lymph nodes (10/03). B. Kidney, left, radical nephrectomy: - Renal cell carcinoma, unclassified, with sarcomatoid differentiation, grade 4, 8 cm. - Tumor invades perinephric fat, renal sinus, and pelvis. - Margins are negative for tumor. - Metastatic renal cell carcinoma with sarcomatoid differentiation in one hilar lymph node (10/02). - Portion of benign adrenal gland. Called and gave the pathology report. Told him that this was very aggressive renal cell carcinoma. I recommend referral to medical oncology to talk about adjuvant options. Patient understood and agreed. He is recovering well from surgery otherwise. We talked about staying away from strenuous activity for 6 weeks after surgery. Bing Arvizu MD documented in this encounter [facility] 03-12-2025 Miscellaneous Notes FLMA forms completed and faxed to [employer]. Fax confirmation received. Completed forms placed at the front office help to be scanned into patients chart. Darrell Justin RN documented in this encounter [facility] 03-12-2025 Telephone encounter Note FLMA forms completed and faxed to [facility]. Fax confirmation received. Completed forms placed at the front office help to be scanned into patients chart. Darrell Justin RN [facility] 03-11-2025 Instructions Tamanna Zhu, RESEARCH PROFESSOR OF BIOSTATISTICS.PATTERN SETTER - 03/11/2025 9:31 AM EDT Spoke with Mr. Le this morning regarding hyperkalemia on recent labs, K 5.6 - patient is asymptomatic, confirmed has been off of his lisinopril/HCTZ since discharge. Scr is stable around 2. Ordered repeat BMP today with the understanding that if results were concerning for hyperkalemia he may need to go to the ED for further evaluation. Dr. Arvizu updated, order for BMP placed. Pt will have labs obtained today. documented in this encounter [facility] 03-11-2025 Telephone encounter Note Spoke with patient this morning regarding critical lab value of K 6.1. Cr continues to rise now 2.16 from 2.08, and 1.99 on discharge. Patient overall feels well. Denies any chest pain, shortness of breath, heart palpitations. Instructed patient to go to local ED for evaluation given hyperkalemia. Explained the risks of hyperkalemia including life threatening arrhythmias. Patient understands and agrees to plan. He plans to go to ED closer to home as [place] is almost an hour away. All questions answered. Patient inquiring about his pathology results, will follow up with Dr. Arvizu. Aurea Rodriguez MD Urology Resident PGY-1 Pager [facility] Work Phone: 03-11-2025 Miscellaneous Notes Spoke with patient this morning regarding critical lab value of K 6.1. Cr continues to rise now 2.16 from 2.08, and 1.99 on discharge. Patient overall feels well. Denies any chest pain, shortness of breath, heart palpitations. Instructed patient to go to local ED for evaluation given hyperkalemia. Explained the risks of hyperkalemia including life threatening arrhythmias. Patient understands and agrees to plan. He plans to go to ED closer to home as [place] is almost an hour away. All questions answered. Patient inquiring about his pathology results, will follow up with Dr. Arvizu. Aurea Rodriguez MD Urology Resident PGY-1 Pager documented in this encounter [facility] 03-05-2025 Telephone encounter Note Patient needs the provider to complete FMLA paperwork for his medical leave. Patient gave provider the paperwork at his office visit on 01/03/25. Please advise [facility] 03-05-2025 Miscellaneous Notes Patient needs the provider to complete FMLA paperwork for his medical leave. Patient gave provider the paperwork at his office visit on 01/03/25. Please advise documented in this encounter [facility] 02-28-2025 Note HNO ID: [id number] Author: TAMANNA ZHU APRN.CNP Service: Urology Author Type: Nurse Practitioner Type: Progress Notes Filed: 03/10/2025 09:26 Note Text: Documentation Query Please clarify the diagnosis associated with the clinical indicators for this patient Provider Response: {Please select the appropriate option:[id number]:: Hyperkalemia supported by: Continued Lab Monitoring, Continued Symptom Monitoring, and Other, please specify treatment if hyperkalemia with IV furosemide, dextrose/insulin , This document will become part of the patient's medical record. Tamanna Zhu APRN.CNP [facility] 02-28-2025 Note HNO ID: [id number] Author: TAMANNA ZHU APRN.CNP Service: Urology Author Type: Nurse Practitioner Type: Progress Notes Filed: 03/12/2025 10:45 Note Text: Documentation Query Please clarify the diagnosis associated with the clinical indicators {Please select the appropriate option:[id number]:: Acute kidney injury , This document will become part of the patient's medical record. [facility] 02-28-2025 Note HNO ID: [id number] Author: TAMANNA ZHU APRN.CNP Service: Urology Author Type: Nurse Practitioner Type: Progress Notes Filed: 03/12/2025 10:45 Note Text: Documentation Query Please specify a diagnosis associated with the Clinical Indicators for this patient {Please select the appropriate option:[id number]:: Obesity Class 2 This document will become part of the patient's medical record. Tamanna Zhu APRN.DEEP [facility] 02-28-2025 Note HNO ID: [id number] Author: JUAN ANTONIO KATZ CPhT Service: ? Author Type: Teaching Manager Type: Plan of Care Filed: 02/28/2025 15:07 Note Text: PHARMACY BEDSIDE DELIVERY SERVICE Patient Name: Skyler Le The marked outpatient medications were Filled at: [facility] and delivered to the patient's bedside to [...] as: ZESTORETIC Juan Antonio Katz CPhT PAGER: [phone] February 28, 2025 3:07 PM [facility] 02-28-2025 Note HNO ID: [id number] Author: BING ARVIZU MD Service: Urology Author Type: Physician Type: Progress Notes Filed: 02/28/2025 07:52 Note Text: [facility] UROLOGY PROGRESS NOTE Name: Skyler Le Bed: [id number] Date: 02/28/2025 After Hours [facility] Urology Service Pager: [phone] ASSESSMENT AND PLAN Skyler Le is a [...] please page the urology on-call pager at: [phone] for [facility] [phone] for [place] dough sheeter resident/fellow/staff in [facility] for all other [facility] hospitals SUBJECTIVE -see above Objective Vital [...] please page the urology on-call pager at: [phone] for [facility] [phone] for [place] dough sheeter resident/fellow/staff in [facility] for all other [facility] hospitals The above noted history, physical, assessment and plan were reviewed with the provider and critical portions of the HANDP were confirmed. I agree with the plan above and provided direct supervision of the above provider during this patient's care. Bing Arvizu MD [facility] 02-27-2025 Note HNO ID: [id number] Author: BETH MASTERSON DO Service: Nursing Author [...] for the patient's condition and procedure. Beth Masterson DO SIGNATURE: Ciera Honeycutt APRN.PRODUCT SAFETY SPECIALIST PATIENT NAME: Skyler Le DATE: February 27, 2025 TIME: 9:04 AM CSN: [id number] [facility] 02-27-2025 Note HNO ID: [id number] Author: CIERA HONEYCUTT APRN.PRODUCT SAFETY SPECIALIST Service: Nursing Author Type: Nurse Digital Media Director Type: Anesthesia Procedure Notes Filed: 02/27/2025 09:12 Note Text: ANESTHESIOLOGY PROCEDURE NOTE PIV General Information Procedure Start Time/Medication Administration: 02/27/2025 8:05 AM Procedure End Time: 02/27/2025 8:07 AM Patient Location: OR Staffing SRNA: Tianna Diego SRNA Performed by: SRNA Preparation Sterility Preparation: hand hygiene performed prior to procedure, surgical cap used, mask used Site Prep: Chloraprep Procedure Details Indication: need for IV access Needle Size/Type: 16 gauge angiocath Orientation: Right Location: Hand Imaging Guidance Used: No SIGNATURE: Ciera Honeycutt APRN.PRODUCT SAFETY SPECIALIST PATIENT NAME: Skyler Le DATE: February 27, 2025 TIME: 9:03 AM CSN: [id number] [facility] 02-27-2025 Note HNO ID: [id number] Author: CIERA HONEYCUTT APRN.PRODUCT SAFETY SPECIALIST Service: Nursing Author Type: Nurse Digital Media Director Type: Anesthesia Procedure Notes Filed: 02/27/2025 09:12 Note Text: ANESTHESIOLOGY PROCEDURE NOTE Airway General Information Procedure Start Time/Medication Administration: 02/27/2025 7:56 AM Procedure End Time: 02/27/2025 7:59 AM Patient location during procedure: OR 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 The best location for this patient is the [facility] to have these completed. Rob COSBY [facility] 02-10-2025 Miscellaneous Notes I have ordered two Venofer Infusions for patient . The best location for this patient is the [facility] to have these completed. Rob GUZMANC documented in this encounter [facility] 02-07-2025 Instructions Rob Romero APRN.CNP - 02/07/2025 2:16 PM EDT PATIENT PREOPERATIVE INSTRUCTIONS Bing Arvizu MD has scheduled you for your procedure at this surgery center: [facility]: [phone] --[phone] [phone]. Please check in on the 1st floor [...] SURGERY If you are currently using a arkp-sil-grsb injectable or oral medication for diabetes or [...] Procedures: - YOU MUST HAVE A RESPONSIBLE PLOW HOLDER TAKE YOU HOME. A DEPARTMENTAL BUYER OR CASH APPLICATIONS ANALYST CANNOT BE MADE A RESPONSIBLE PLOW HOLDER. - We recommend that a responsible person [...] Advance Directive, please fax a copy to [phone] or email to for it to be [...] Rob Romero APRN.DEEP documented in this encounter [facility] 02-07-2025 History and physical note Images from the original note were not included. [facility] HISTORY AND PHYSICAL EXAMINATION SERVICE DATE: 02/07/2025 SERVICE TIME: 2:02 PM PRIMARY CARE PHYSICIAN: Jessica Davalos CNP, PATTERN SETTER REASON FOR VISIT: Skyler Le is a [...] 0 (ROSA M compliant with CPAP ) [id number] Score: Age: 65-74 Sex: male CHF history: No Hypertension history: Yes Stroke/TIA/thromboembolism history: No Vascular disease history: No Diabetes history: Yes [id number] Score: 3 ARISCAT Score: Age: 51-80 Preoperative [...] fevers. Neuro: No history of TIA's, stroke, PIECER UP tumor, impaired sensorium, hemiplegia, paraplegia or quadraplegia. [...] Admin: COVID-19 vaccine, age 12+ yr, bivalent ([employer]) 02/26/2022 Imm Admin: COVID-19 original vaccine, age 12+ yr, monovalent ([employer]) Only the first 5 [...] Skyler Le DATE: 02/07/2025 TIME: 2:13 PM [facility] 02-07-2025 History and physical note Images [...] 0 (ROSA M compliant with CPAP ) [id number] Score: Age: 65-74 Sex: male CHF history: No Hypertension history: Yes Stroke/TIA/thromboembolism history: No Vascular disease history: No Diabetes history: Yes [id number] Score: 3 ARISCAT Score: Age: 51-80 Preoperative [...] fevers. Neuro: No history of TIA's, stroke, PIECER UP tumor, impaired sensorium, hemiplegia, paraplegia or quadraplegia. [...] Immunization Dates Current Care Gaps Covid-19 Vaccine () Overdue since 12/31/2024 07/02/2024 Imm Admin: COVID-19 original vaccine, full dose, monovalent (MODERNA) 06/29/2024 Outside Immunization: COVID-19, subunit, rS-nanoparticle, adjuvanted, PF, 5 mcg/0.5 mL 07/08/2023 Imm Admin: COVID-19 vaccine, age 12+ yr (MODERNA) 07/30/2022 Imm Admin: COVID-19 vaccine, age 12+ yr, bivalent ([employer]) 02/26/2022 Imm Admin: COVID-19 original vaccine, age 12+ yr, monovalent ([employer] - [employer] TOP) Only the first 5 [...] TIME: 2:13 PM documented in this encounter [facility] 01-09-2025 Telephone encounter Note Left voice message on patients phone and also 's Irene to call Interventional Radiology to schedule his biopsy. They have left 2 messages to call to schedule appointment. [facility] 01-09-2025 Miscellaneous Notes Left voice message on patients phone and also 's Irene to call Interventional Radiology to schedule his biopsy. They have left 2 messages to call to schedule appointment. documented in this encounter [facility] 01-06-2025 Telephone encounter Note Left vm for patient to call back- 1st attempt [facility] 01-06-2025 Miscellaneous Notes Left vm for [...] for this procedure: intermediate-high risk. Reference from [facility] Branch Banker: [email or web address] STAFF SIGNATURE: Rivas Santana MD DATE: January [...] 3:46pm REQUESTING STAFF: Bing Arvizu MD PHONE/PAGER: [phone] SPECIFICS OF THE REQUEST: Renal Biopsy SPECIAL REQUESTS: TISSUE SAMPLE, LABWORK: N/A IS THIS REQUEST PART OF A RESEARCH PROTOCOL: No MEDICAL DIAGNOSIS: Neoplasm of uncertain behavior of left kidney TYPE AND DATE OF THE EXAM THAT IS THE BASIS OF THE REQUEST: CT Date: 12/14/2024 IMAGING: OUTSIDE [facility] Films: Where is study now: in patient's chart Note to all persons requesting biopsies: All biopsy requests will be scheduled as quickly as possible, based on the clinical urgency, availability of appointment times, the need to hold anti-thrombolytic therapy (aspirin, blood thinners) and the patient s schedule, including the need for an available automobile drivers. If a percutaneous biopsy or drainage is not felt to be safe or an alternative method for establishing a diagnosis is possible, this will be discussed directly with the requesting physician. documented in this encounter [facility] 01-06-2025 Telephone encounter Note RADIOLOGIST REQUEST [...] for this procedure: intermediate-high risk. Reference from [facility] Branch [employer]er: [email or web address] STAFF SIGNATURE: Rivas Santana MD DATE: January 06, 2025 TIME: 9:21 AM [facility] 01-06-2025 Telephone encounter Note BX. COORDINATOR [...] DATE: January 06, 2025 TIME: 7:59 AM [facility] 01-03-2025 Telephone encounter Note Summary: Renal biopsy RADIOLOGY CALL CENTER INTAKE DATE: 01/03/2025 TIME: 3:46pm REQUESTING STAFF: Bing Arvizu MD PHONE/PAGER: [phone] SPECIFICS OF THE REQUEST: Renal Biopsy SPECIAL REQUESTS: TISSUE SAMPLE, LABWORK: N/A IS THIS REQUEST PART OF A RESEARCH PROTOCOL: No MEDICAL DIAGNOSIS: Neoplasm of uncertain behavior of left kidney TYPE AND DATE OF THE EXAM THAT IS THE BASIS OF THE REQUEST: CT Date: 12/14/2024 IMAGING: OUT[facility]IDE [facility] Films: Where is study now: in patient's chart Note to all persons requesting biopsies: All biopsy requests will be scheduled as quickly as possible, based on the clinical urgency, availability of appointment times, the need to hold anti-thrombolytic therapy (aspirin, blood thinners) and the patient s schedule, including the need for an available automobile drivers. If a percutaneous biopsy or drainage is not felt to be safe or an alternative method for establishing a diagnosis is possible, this will be discussed directly with the requesting physician. [facility] 01-03-2025 Note Addended by: BING STEELE on: 01/03/2025 03:33 PM Modules accepted: Orders [facility] 01-03-2025 Miscellaneous Notes Addended by: BING ARVIZU on: 01/03/2025 03:33 PM Modules accepted: Orders documented in this encounter [facility] 01-03-2025 History of Present illness Narrative [facility] [place] NEW PATIENT HISTORY AND PHYSICAL EXAM PATIENT [...] was discussed with the patient or authorized scheduling representative. The patient or authorized scheduling representative has agreed to proceed with the [...] Surgery is tentatively planned for mid-January. My maintenance scheduler will contact you to confirm the date. [...] within the next two weeks. - My maintenance scheduler will contact you to confirm the date of your surgery, tentatively planned for mid-January. - If you have any questions or concerns, please contact our office. The patient consented to the use of [facility] software for draft documentation of the visit consistent with [facility] s Notice of Privacy Practices. By signing my name below, Al Aceves, attest that this documentation has been prepared under the direction and in the presence of Dr. Arvizu. Electronically signed, Wale Knox Provider Attestation: Bing Aceves MD, personally [...] of Medical Record. documented in this encounter [facility] 01-03-2025 Note HNO ID: [id number] Author: BING ARVIZU MD Service: ? Author Type: Physician Type: Progress Notes Filed: 01/03/2025 15:11 Note Text: [facility] HISTORY AND PHYSICAL EXAM PATIENT [...] resident, medical s (more content not included)... [facility] 12-20-2024 Note Patient Education Urology Transurethral Resection [...] including vitamins, herbs, eye drops, creams, and ijgi-ubg-denucap medicines. ??? Any problems you or family [...] tells you to take them. ??? Taking znde-vjl-opkrmml medicines, vitamins, herbs, and supplements. Surgery safety [...] bladder. The cathete (more content not included)... [facility] 10-24-2024 Evaluation + Plan note Diagnostic Tests PendingUrine Culture 10/24/24 [facility] 10-24-2024 Hospital Discharge instructions Patient Education [...] as fried or sweet foods. These include arabic fries, hamburgers, cookies, candies, and soda. Drink enough fluid to keep your urine pale yellow. General instructions Exercise regularly or as told by your health care provider. Try to do 150 minutes of moderate exercise each week. Use the bathroom when you have the urge to go. Do not hold it in. Take cjhh-ujq-zguxrhz and prescription medicines only as told by [...] to keep your urine pale yellow. Take iwew-sph-wmpzaqo and prescription medicines only as told by your health care provider. This includes any fiber supplements. This information is not intended to replace advice given to you by your health care provider. Make sure you discuss any questions you have with your health care provider. Document Revised: 08/02/2023 Document Reviewed: 08/02/2023 [employer] Patient Education 2023 [employer]. 10/23/2024 16:04:03 Hematuria, Adult Hematuria, Adult Hematuria [...] Follow these instructions at home: Medicines Take jrob-pzy-uqyfron and prescription medicines only as told by [...] or the blood stops without treatment. Take hmml-mym-pusghgx and prescription medicines only as told by your health care provider. Drink enough fluid to keep your urine pale yellow. This information is not intended to replace advice given to you by your health care provider. Make sure you discuss any questions you have with your health care provider. Document Revised: 05/19/2021 Document Reviewed: 05/19/2021 [employer] Patient Education 2023 [employer]. Follow Up Care 10/15/2024 09:45:52 With:[facility] Address: When: Unknown Comments:For procedure as scheduled. [facility] Address: When: Unknown Comments:For procedure as scheduled. [facility] Jennifer 10-24-2024 Note Patient Education Gastroenterology Constipation, Adult [...] as fried or sweet foods. These include arabic fries, hamburgers, cookies, candies, and soda. ??? Drink enough fluid to keep your urine pale yellow. General instructions ??? Exercise regularly or as told by your health care provider. Try to do 150 minutes of moderate exercise each week. ??? Use the bathroom when you have the urge to go. Do not hold it in. ??? Take exud-wxb-vscetdm and prescription medicines only as told by [...] keep your urine pale yellow. ??? Take xjim-hdl-bmhnann and prescription medicines only as told by your health care provider. This includes any fiber supplements. This information is not intended to replace advice given to you by your health care provider. Make sure you discuss any questions you have with your health care provider. Document Revised: 08/02/2023 Document Reviewed: 08/02/2023 [employer] Patient Education ? 2023 [employer]. Urology Hematuria, Adult Hematuria is blood in [...] these instructions at home: Medicines ??? Take rlsz-uid-bdqqfun and prescription medicines only as told by [...] back and u (more content not included)... [facility] Evaluation + Plan note Future Appointments Appointment Date:09/26/2025 09:45:00 AM Scheduled Provider:Nikolai ACOSTA MD Location:[facility] Appointment Type:URO Office Visit Diagnostic Tests PendingBUN 03/14/25Creatinine 03/14/25Potassium Level 03/14/[address] 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 [facility] Diagnosis Renal mass, left- Primary Unspecified disorder of kidney and ureter Abnormal blood chemistry Other abnormal blood chemistry 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 [facility] Diagnosis Pre-op evaluation- Primary Preoperative examination, unspecified Depression, unspecified depression type Type 2 diabetes mellitus without complication, unspecified whether tank terminal gauger insulin use (HCC) BPH with obstruction/lower urinary [...] any suicidal ideation documented in this encounter [facility] note* Diagnosis Pre-op evaluation- Primary Preoperative examination, unspecified Depression, unspecified depression type Type 2 diabetes mellitus without complication, unspecified whether mcc insulin use (HCC) BPH with obstruction/lower urinary [...] kidney and ureter documented in this encounter [facility] note* Diagnosis Pre-op evaluation- Primary Preoperative examination, unspecified Depression, unspecified depression type Type 2 diabetes mellitus without complication, unspecified whether mcc insulin use (HCC) BPH with obstruction/lower urinary [...] kidney and ureter documented in this encounter [facility] note* Diagnosis Pre-op evaluation- Primary Preoperative examination, unspecified Depression, unspecified depression type Type 2 diabetes mellitus without complication, unspecified whether mcc insulin use (HCC) BPH with obstruction/lower urinary [...] kidney failure, unspecified documented in this encounter [facility] note* Diagnosis Pre-op evaluation- Primary Preoperative examination, unspecified Depression, unspecified depression type Type 2 diabetes mellitus without complication, unspecified whether mcc insulin use (HCC) BPH with obstruction/lower urinary [...] Hyperkalemia- Primary Hyperpotassemia documented in this encounter [facility] course Narrative No data available for this section [facility] Hospital Discharge instructions No data available for this section [facility] Progress note No data available for this section [facility] reason for visit Narrative* Randolph Prior Authorization (Routine) - Authorized Specialty Diagnoses / Procedures Referred By Cassandra mccauley Referred To Contact Diagnoses Intestinal malabsorption, unspecified type (HCC) Iron deficiency anemia, unspecified iron deficiency anemia type Procedures IRON SUCROSE INJECTION PER 1 MG Rob Romero, RESEARCH PROFESSOR OF BIOSTATISTICS.PATTERN SETTER [address] [place] [address] Phone: tel: fax: Rob Romero, RESEARCH PROFESSOR OF BIOSTATISTICS.PATTERN SETTER [address] [place] [address] Phone: tel: fax: Referral ID Status Reason Start Date Expiration Date V isits Requested Visits Authorized [id number] Authorized 02/10/2025 10/01/2025 99 99 [facility] Summary Purpose Family History No Family History Records FoundNo Family History Records Found No data available for this section No data available for this section No Family History Records FoundNo Family History Records FoundNo Family History Records FoundNo Family History Records Found No data available for this section Advance Directives No Advanced Directives Records FoundNo [...] section and content) DATE CREATED AUTHOR 09/03/2022 [facility] DATE CREATED AUTHOR AUTHOR'S ORGANIZ ATION 10/25/2024 [facility] DATE CREATED AUTHOR AUTHOR'S ORGANIZ ATION 03/11/2025 [facility] DATE CREATED AUTHOR AUTHOR'S ORGANIZ ATION 03/12/2025 [facility] DATE CREATED AUTHOR AUTHOR'S ORGANIZ ATION 03/14/2025 [facility] DATE CREATED AUTHOR AUTHOR'S ORGANIZ ATION 03/14/2025 [facility] Patient Care team informatio n (unrecognized section and content) Personnel Name: JESSICA DAVALOS CNP Address: [address] [place] [address] Telecom: Revenue Inspector Relationship Specialty Start Date End Date Jessica Davalos CNP [address] [place] [address] PCP - General Internal Medicine 02/07/25 Revenue Inspector Relationship Specialty Start Date End Date Jessica Davalos CNP [address] [place] [address] PCP - General Internal Medicine 02/07/25 Revenue Inspector Relationship Specialty Start Date End Date Jessica Davalos CNP [address] [place], [place] [address] PCP - General Internal Medicine 02/07/25 Revenue Inspector Relationship Specialty Start Date End Date Jessica Davalos CNP [address] [place], [place] [address] PCP - General Internal Medicine 02/07/25 Revenue Inspector Relationship Specialty Start Date End Date Jessica Davalos CNP [address] [place], [place] [address] PCP - General Internal Medicine 02/07/25 Revenue Inspector Relationship Specialty Start Date End Date Jessica Davalos CNP [address] [place] [address] PCP - General Internal Medicine 02/07/25 Revenue Inspector Relationship Specialty Start Date End Date Jessica Davalos CNP [address] [place] [address] PCP - General Internal Medicine 02/07/25 Revenue Inspector Relationship Specialty Start Date End Date Jessica Davalos CNP [address] [place] [address] PCP - General Internal Medicine 02/07/25 Revenue Inspector Relationship Specialty Start Date End Date Jessica Davalos CNP [address] [place] [address] PCP - General Internal Medicine 02/07/25 Source Comments (unrecognize d section and content) In the event this informatio n is protected by the Federal Confidentiality of Alcohol and Drug Abuse Patient Records regulations: The Federal rules restrict any use of the information to criminally investigate or prosecute any alcohol or drug abuse patient.[facility] the event this information is protected by the Federal Confidentiality of Alcohol and Drug Abuse Patient Records regulations: The Federal rules restrict any use of the information to criminally investigate or prosecute any alcohol or drug abuse patient.[facility] the event this information is protected by the Federal Confidentiality of Alcohol and Drug Abuse Patient Records regulations: The Federal rules restrict any use of the information to criminally investigate or prosecute any alcohol or drug abuse patient.[facility] Hospital[facility] the event this information is protected by the Federal Confidentiality of Alcohol and Drug Abuse Patient Records regulations: The Federal rules restrict any use of the information to criminally investigate or prosecute any alcohol or drug abuse patient.[facility] Hospital[facility] the event this information is protected by the Federal Confidentiality of Alcohol and Drug Abuse Patient Records regulations: The Federal rules restrict any use of the information to criminally investigate or prosecute any alcohol or drug abuse patient.[facility] Hospital[facility] the event this information is protected by the Federal Confidentiality of Alcohol and Drug Abuse Patient Records regulations: The Federal rules restrict any use of the information to criminally investigate or prosecute any alcohol or drug abuse patient.[facility] Hospital[facility] the event this information is protected by the Federal Confidentiality of Alcohol and Drug Abuse Patient Records regulations: The Federal rules restrict any use of the information to criminally investigate or prosecute any alcohol or drug abuse patient.[facility] Hospital[facility] the event this information is protected by the Federal Confidentiality of Alcohol and Drug Abuse Patient Records regulations: The Federal rules restrict any use of the information to criminally investigate or prosecute any alcohol or drug abuse patient.[facility] Hospital[facility] the event this information is protected by the Federal Confidentiality of Alcohol and Drug Abuse Patient Records regulations: The Federal rules restrict any use of the information to criminally investigate or prosecute any alcohol or drug abuse patient.[facility] Hospital[facility] the event this information is protected by the Federal Confidentiality of Alcohol and Drug Abuse Patient Records regulations: The Federal rules restrict any use of the information to criminally investigate or prosecute any alcohol or drug abuse patient.[facility] Hospital[facility] the event this information is protected by the Federal Confidentiality of Alcohol and Drug Abuse Patient Records regulations: The Federal rules restrict any use of the information to criminally investigate or prosecute any alcohol or drug abuse patient.[facility] Hospital[facility] the event this information is protected by the Federal Confidentiality of Alcohol and Drug Abuse Patient Records regulations: The Federal rules restrict any use of the information to criminally investigate or prosecute any alcohol or drug abuse patient.[facility] Hospital[facility] the event this information is protected by the Federal Confidentiality of Alcohol and Drug Abuse Patient Records regulations: The Federal rules restrict any use of the information to criminally investigate or prosecute any alcohol or drug abuse patient.[facility] Hospital[facility] the event this information is protected by the Federal Confidentiality of Alcohol and Drug Abuse Patient Records regulations: The Federal rules restrict any use of the information to criminally investigate or prosecute any alcohol or drug abuse patient.[facility] HospitalIn the event this information is protected by the Federal Confidentiality of Alcohol and Drug Abuse Patient Records regulations: The Federal rules restrict any use of the information to criminally investigate or prosecute any alcohol or drug abuse patient.[facility] HospitalIn the event this information is protected by the Federal Confidentiality of Alcohol and Drug Abuse Patient Records regulations: The Federal rules restrict any use of the information to criminally investigate or prosecute any alcohol or drug abuse patient.[facility] Hospital[facility] the event this information is protected by the Federal Confidentiality of Alcohol and Drug Abuse Patient Records regulations: The Federal rules restrict any use of the information to criminally investigate or prosecute any alcohol or drug abuse patient.[facility] HospitalIn the event this information is protected by the Federal Confidentiality of Alcohol and Drug Abuse Patient Records regulations: The Federal rules restrict any use of the information to criminally investigate or prosecute any alcohol or drug abuse patient.[facility] Hospital[facility] the event this information is protected by the Federal Confidentiality of Alcohol and Drug Abuse Patient Records regulations: The Federal rules restrict any use of the information to criminally investigate or prosecute any alcohol or drug abuse patient.[facility] Reason for Visit (unrecogniz ed section and content) Reason Comments Consult Specialty Diagnoses / Procedures Referred By Cassandra mccauley Referred To Contact Urology / UROLOGY Diagnoses Renal mass renal mass Procedures OFFICE/OUTPATIENT NEW MODERATE MDM 45 MINUTES NEW UROL Self Bing Arvizu MD [address] [place] [address] Phone: tel: fax: Referral ID Status Reason Start Date Expiration Date Visits Re quested Visits Authorized [id number] Closed 01/03/2025 10/01/2025 1 1 Reason Comments REnal Biopsy Reason Comments BIOPSY APPOINTMENT Reason Comments Pre-Op Visit Specialty Diagnoses / Procedures Referred By Cassandra mccauley Referred To Contact Anesthesiology / ANESTHESIOLOGY Diagnoses DOS 02/27 ROBOTIC LAPAROSCOPIC NEPHRECTOMY PARTIAL [11948] - Abdomen quadrant upper - Left Procedures [facility] Bing Arvizu MD [address] [place] [address] Phone: tel: fax: 2, [facility] [address] [place] [address] Phone: tel:[phone] Referral ID Status Reason Start Date Expiration Date V isits Requested Visits Authorized [id number] New Request 02/07/2025 05/08/2025 1 1 Reason [...] BE BASED ON THE PRIMARY CLINICAL RECORDS. [facility] [email or web address] [facility]. provides no warranty or guarantee of the accuracy or completeness of information in this document.
--- OUTSIDE RECORDS SUMMARY | 2025-03-15 10:21 | XMS_ITS | Encounter Summary ---
Author Organization [facility] Address [facility] [place] [address] Care Team Providers Care Oracle Soa Architect Name Role Phone KatherineJessica Leyla ADAME Primary Care Provider + Source Comments In the event this information is protected by the Federal Confidentiality of Alcohol and Drug AbusePatient Records regulations: The Federal rules restrict any use of the information to criminally investigate or prosecute any alcohol or drug abuse patient.[facility] Encounter Details Date Type Department Care Team (Late st Contact Info) Description 03/12/2025 Results Follow-Up Urology [address] [place] [address] Rivera Arvizu MD [address] [place] [address] Social History Tobacco Use Types Packs/Day Years Used Date Smoking Tobacco: Never Smokeless Tobacco: Never Alcohol Use Standard Drinks/Week Comments Yes 0 (1 standard drink = 0.6 oz pur e alcohol) once a year, if that Area Deprivation Index Answer Date Roland rded National Score (1-100), lower number is lower ri sk 78 01/03/2025 State Score (1-10), lower number is lower risk 6 01/03/2025 Data from: https://www.neighborhoodatlas.[facility]/. Last address used for calculation [address] 01/03/2025 Sex and Gender Information Value Date Recorded Sex Assigned at Male 03/02/2025 11:28 PM EDT Legal Sex Male 8:56 AM EDT Gender Identity Male 03/02/2025 11:28 PM EDT Sexual Orientation Straight 03/02/2025 11 :28 PM EDT documented as of this encounter Functional Status * Are you deaf or do you have serious difficulty hearing? Answer Date of Assessment Author No 02/28/2025 3:36 PM EDT Trent Adler RN * Are you blind or do you have serious difficulty seeing, even when wearing glasses? Answer Date of Assessment Author No 02/28/2025 3:36 PM EDT Trent Adler RN * Do you have serious difficulty walking or climbing stairs? Answer Date of Assessment Author No 02/28/2025 3:36 PM EDT Trent Adler RN * Do you have difficulty dressing or bathing? Answer Date of Assessment Author No 02/28/2025 3:36 PM EDT Trent Adler RN * Because of a physical, mental, or emotional condition, do you have difficulty doing errands alone such as visiting a doctor's office or shopping? Answer Date of Assessment Author No 02/28/2025 3:36 PM SARAHYT Trent Adler RN documented as of this encounter Mental Status * Because of a physical, mental, or emotional condition, do you have serious difficulty concentrating, remembering, or making decisions? Answer Entry Date Author No 02/28/2025 3:36 PM SARAHYT Trent Adler RN documented in this encounter Miscellaneous Notes * Telephone Encounter - Rivera Arvizu MD - 03/12/2025 2:10 PM EDT FINAL DIAGNOSIS A. Lymph nodes, para-aortic, regional [...] strenuous activity for 6 weeks after surgery. Rivera Arvizu MD documented in this encounter Plan of Treatment Upcoming Encounters Date Type Department Care Team (Latest Contact Info) Description 03/18/2025 4:00 PM EDT Visit (SP) Office Hematology/Oncology [address] [place] [address] [place] [address] Ernesto Phoenix MD [address] [place] [address] [place] [address] renal cell carcinoma documented as of this encounter Visit Diagnoses Not on filedocumented in this encounter Care Teams Oracle Soa Architect Relationship Specialty Start Date End Date Jessica Murphy CNP [address] [place] [address] PCP - General Internal Medicine 02/07/25 documented as of this encounter
--- OUTSIDE RECORDS SUMMARY | 2025-03-15 10:21 | XMS_ITS | Clinical Summary ---
Author Organization [facility] Address [address] [place], [place] [id number] Care Team Providers Care Heart Specialist Name Role Phone Jessica Murphy CNP Primary Care Provider +1 Allergies Active Allergy Reactions Criticality Noted Date Comments Tamsulosin Other: See Comments 02/27/2025 dizziness and back pain Medications dutasteride (AVODART) 0.5 mg capsule Take 0.5 mg by mouth once daily. Active tamsulosin (FLOMAX) 0.4 mg Take 1 capsule by mouth every 12 hours. Active spironolactone (ALDACTONE) 25 mg tablet Take 25 mg by mouth two times a day. Active metFORMIN (GLUCOPHAGE) 1,000 mg tablet Take 500 mg by mouth two times a day. Active FLUoxetine (PROZAC) 10 mg capsule Take 10 mg by mouth once daily. Active acetaminophen (TYLENOL) 325 mg tablet Take 2 tablets by mouth every 6 hours as needed for pain. 40 tablet 02/28/2025 3:04 PM EDT Active metoprolol tartrate, short acting, (LOPRESSOR) 100 mg tablet Take 100 mg by mouth two times a day. Active metoprolol succinate ER (TOPROL XL) 100 mg Take 100 mg by mouth once daily. 5 025 Discontinued lisinopril-hyd roCHLOROthiazi de (ZESTORETIC) 20-12.5 mg per tablet Take 1 tablet by mouth once daily. 025 Discontinued docusate sodium (COLACE) 100 mg capsule Take 1 capsule by mouth two times a day for 14 days. Stop taking if you develop diarrhea or loose stools 28 capsule 02/28/2025 3:04 PM EDT 025 oxyCODONE IR (ROXICODONE) 5 mg immediate release tabletIndicati ons:Neoplasm of uncertain behavior of left kidney Take 1 tablet by mouth every 6 hours as needed for pain for up to 3 days. 8 tablet 02/28/2025 3:04 PM EDT 025 Active Problems Problem Noted Date Diagnosed Date Kidney mass 02/28/2025 Iron deficiency anemia, unspecified 02/10/2025 Intestinal malabsorption 02/10/2025 BPH with obstruction/lower urinary tract symptom s 02/07/2025 Assessment & Plan (02/07/2025 2:12 PM EDT): Assessment: SEE HPI On medication Depression 02/07/2025 Assessment & Plan (02/07/2025 2:11 PM EDT): Assessment: stable on medication Denies any suicidal ideation Type 2 diabetes mellitus without complications 0 02/07/2025 Assessment & Plan (02/07/2025 2:11 PM EDT): Assessment: stable on oral medication To get updated labs Hypertension 02/07/2025 Assessment & Plan (02/07/2025 2:12 PM EDT): Assessment: Stable on medication Today BP: 144/72 To take medication morning of surgery Does not complain of any chest pain, shortness of breath, lower extremity edema, or palpitations ROSA M (obstructive sleep apnea) 02/07/2025 Assessment & Plan (02/07/2025 2:13 PM EDT): Assessment: compliant with CPAP Class 2 obesity due to exces s calories without serious comorbidity in adult 02/07/2025 Encounters Date Type Department Care Team Description 03/12/2025 Results Follow-Up Urology [address] [place] [address] Bing Arvizu MD 03/12/2025 Telephone Urology [address] [place] [phone] Bing Arvizu MD 03/11/2025 Telephone [facility] Provider Adult [id number] [place] [address] Tamanna Zhu, PROJECTOR OPERATOR.FISHER REEF NET 03/11/2025 Telephone [facility] Provider Adult [address] [address] Aurea Rodriguez MD 03/10/2025 Patient Update [facility] Provider Adult [id number] [place] [address] Tamanna Zhu PROJECTOR OPERATOR.FISHER REEF NET 03/10/2025 Travel 03/10/2025 [place] [address] Tamanna Zhu PROJECTOR OPERATOR.FISHER REEF NET Hyperkalemia (Primary Dx) 03/05/2025 [id number] [place], [place] [phone] Bing Arvizu MD Patient Question 02/28/2025 Orders Only [facility] [address] [address] Tamanna Zhu, PROJECTOR OPERATOR.FISHER REEF NET ODALIS (acute kidney injury) (Primary Dx) 02/27/2025 7:44 AM EDT Anesthesia Event [facility] Operating Room [address] [place], [place] [id number] Giorgio Masterson DO 02/27/2025 7:30 AM EDT - 02/27/2025 11:00 AM EDT Surgery [facility] Operating Room [address] [place] [address] Bing Arvizu MD LAPAROSCOPIC HAND ASSISTED NEPHRECTOMY INCLUDING PARTIAL URETERECTOMY 02/27/2025 6:20 AM EDT - 02/28/2025 4:00 PM EDT Hospital Encounter [facility] PK[address]A [address] [place] [address] Bing Arvizu MD 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] Discharge Disposition: Home 02/27/2025 Travel 02/19/2025 9:00 AM EDT Infusion Center Hematology/Oncology [address] [place] [address] [place] [address] Intestinal malabsorption, unspecified type (HCC) (Primary Dx); Iron deficiency anemia, unspecified iron deficiency anemia type 02/17/2025 9:00 AM EDT [facility] Hematology/Oncology [address] [place] [address] [place] [address] Intestinal malabsorption, unspecified type (HCC) (Primary Dx); Iron deficiency anemia, unspecified iron deficiency anemia type 02/14/2025 Patient Msg Cancer Appts [address] [place] [address] Provider, [facility] Iron Infusion 02/10/2025 Orders Only Pre Anesthesia [address] [place] [address] Veronica Romero, PROJECTOR OPERATOR.FISHER REEF NET 02/10/2025 Telephone Pre Anesthesia [address] [facility] [place] [place] [address] Veronica Romero, PROJECTOR OPERATOR.FISHER REEF NET Patient Update 02/10/2025 Orders Only Pre Anesthesia [address] [place] [address] Veronica Romero, PROJECTOR OPERATOR.FISHER REEF NET Iron deficiency anemia, unspecified iron deficiency anemia type (Primary Dx); Intestinal malabsorption, unspecified type (HCC) 02/10/2025 Telephone Pre Anesthesia [address] [place] [address] Veronica Romero, PROJECTOR OPERATOR.FISHER REEF NET Results 02/07/2025 1:40 PM EDT PAT Pre Anesthesia [address] [place] [address] 2, Pacc [place] Pre-op evaluation (Primary Dx); Depression, unspecified depression type; Type 2 diabetes mellitus without complication, unspecified 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); BPH with obstruction/lower urinary tract symptoms; Hypertension, unspecified type; ROSA M (obstructive sleep apnea); Class 2 obesity due to excess calories without serious comorbidity in adult, unspecified BMI; Iron deficiency anemia, unspecified iron deficiency anemia type 02/06/2025 Travel 01/29/2025 Travel 01/29/2025 Results Follow-Up Urology [address] [place] [address] Bing Arvizu MD 01/24/2025 11:00 AM EDT - 01/24/2025 12:00 PM EDT Surgery Angio [address] [place] [address] Yovany Estrada DO BIOPSY KIDNEY PERCUTANEOUS 01/24/2025 9:15 AM EDT - 01/24/2025 2:19 PM EDT Hospital Encounter [facility] MAIN FB36 [address] [place] [address] Bg Naavs MD 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] Discharge Disposition: Home 01/20/2025 Orders Only Angio [address] [place] [address] Nichole Daugherty RN Renal mass, left (Primary Dx); Abnormal blood chemistry 01/20/2025 Patient Msg Angio [address] [place] [address] Provider, [facility] pre procedure instructions for 01/24/25 01/17/2025 Travel 01/09/2025 Telephone Urology [address] [place] [id number] Bing Arvizu MD BIOPSY APPOINTMENT 01/06/2025 Patient Msg Pre Anesthesia [address] [place] [address] Provider, [facility] PACC Appointment 01/04/2025 Results Follow-Up Urology [address] [place] [id number] Bing Arvizu MD 01/03/2025 2:20 PM EDT Office Visit Urology [address] [place] [address] Bing Arvizu MD Screening for nephropathy (Primary Dx); Neoplasm of uncertain behavior of left kidney 01/03/2025 Patient Update Urology [address] [place] [id number] Bing Arvizu MD 01/03/2025 Telephone [facility] INTERVENTIONAL RADIOLOGY [address] [place] [address] Bing Arvizu MD REnal Biopsy 01/03/2025 Travel from Last 3 Months Social History Tobacco Use Types Packs/Day Years Used Date Smoking Tobacco: Never Smokeless Tobacco: Never Tobacco Cessation:Counseling Given: Not Answered Alcohol Use Standard Drinks/Week Comments Yes 0 (1 standard drink = 0.6 oz pur e alcohol) once a year, if that Area Deprivation Index Answer Date Roland rded National Score (1-100), lower number is lower [place] [id number] 01/03/2025 State Score (1-10), lower number is lower risk 6 01/03/2025 Data from: https://www.neighborhoodatlas.medicine.[facility].edu/. Last address used for calculation [address] [facility] 01/03/2025 Sex and Gender Information Value Date Recorded Sex Assigned at Male 03/02/2025 11:28 PM EDT Legal Sex Male 8:56 AM EDT Gender Identity Male 03/02/2025 11:28 PM EDT Sexual Orientation Straight 03/02/2025 11 :28 PM EDT Last Filed Vital Signs Vital Sign Reading Time Taken Comments Blood Pressure 141/74 02/28/2025 11:04 AM EDT Pulse 88 02/28/2025 11:04 AM EDT Temperature 37.3 C (99.1 F) 02/28/2025 11:04 AM EDT Respiratory Rate 16 02/28/2025 11:04 AM EDT Oxygen Saturation 94% 02/28/2025 11:04 AM EDT Inhaled Oxygen Concentration - - Weight 124.7 kg (275 lb) 02/27/2025 3:10 PM EDT Height 182.9 cm (6' 0.01 ) 02/27/2025 3:10 PM ED T Body Mass Index 37.29 02/27/2025 3:10 PM EDT Plan of Treatment Upcoming Encounters Date Type Department Care Team (Latest Contact Info) Description 03/18/2025 4:00 PM EDT Visit (SP) Office Hematology/Oncology [address] [place] [address] [place] [address] Ernesto Phoenix MD [address] [place] [address] [place] [address] renal cell carcinoma Health Maintenance Due Date Last Done Comments Diabetic Foot Exam 1969 Dilated Retinal Exam 1969 Urine Albumin:Creatinine Ratio 1969 Annual PCP Team Chronic Dise ase Visit 1977 Anxiety Screening 1977 Hepatitis C Screening 1977 LDL Cholesterol 1977 DTaP,Tdap,Td Vaccine (1 - Tdap) 1978 Pneumococcal Vaccine: 50+ (1 of 2 - PCV) 1978 CT Colonography 01/06/2004 Cologuard (FIT-DNA) 01/06/2004 Colonoscopy 01/06/2004 Colorectal Cancer Screening 01/06/2004 Fecal Occult Blood 01/06/2004 Prostate Cancer Screening Discussion 01/06/2004 Sigmoidoscopy 01/06/2004 Shingrix Vaccine (1 of 2) 2009 RSV Vaccine (1 - Risk 60-74 years 1-dose series) 2019 Advance Directive Discussion 10/02/2024 Covid-19 Vaccine (8 - 2023-2 5 season) 2024 07/02/2024, 06/29/2024, 07/08/2023, Additional history exists Influenza Vaccine (Season Ended) 2025 HbA1C 08/10/2025 02/07/2025 Procedures Procedure Name Priority Date/Time Associated Diagnosis Comments EXTERNAL LAB 03/13/2025 8:58 AM EDT EXTERNAL IMAGING 03/13/2025 8:58 AM EDT EXTERNAL LAB 03/13/2025 8:58 AM EDT EXTERNAL PROCEDURE 03/13/2025 8: 58 AM EDT EXTERNAL LAB 03/13/2025 8:58 AM EDT RENAL FUNCTION PANEL Routine 03/10/2025 2:38 PM EDT Hyperkalemia RENAL FUNCTION PANEL Routine 03/04/2025 9:53 AM EDT ODALIS (acute kidney injury) GLUCOSE, BLOOD (POC) Routine 02/28/2025 12:37 PM EDT BASIC METABOLIC PANEL Timed 02/28/2025 10:43 AM EDT GLUCOSE, BLOOD (POC) Routine 02/28/2025 10:29 AM EDT GLUCOSE, BLOOD (POC) Routine 02/28/2025 9:30 AM EDT GLUCOSE, BLOOD (POC) Routine 02/28/2025 8:57 AM EDT GLUCOSE, BLOOD (POC) Routine 02/28/2025 7:59 AM EDT BASIC METABOLIC PANEL Routine 02/28/2025 5:53 AM EDT COMPLETE BLOOD COUNT Routine 02/28/2025 5:53 AM EDT GLUCOSE, BLOOD (POC) Routine 02/27/2025 9:57 PM EDT GLUCOSE, BLOOD (POC) Routine 02/27/2025 8:04 PM EDT GLUCOSE, BLOOD (POC) Routine 02/27/2025 5:44 PM EDT BASIC METABOLIC PANEL STAT 02/27/2025 12:34 PM EDT COMPLETE BLOOD COUNT STAT 02/27/2025 12:34 PM EDT GLUCOSE, BLOOD (POC) Routine 02/27/2025 12:31 PM EDT ARTERIAL BLOOD GAS, POC Routine 02/27/2025 11:50 AM EDT SURGICAL PATHOLOGY Routine 02/27/2025 11 :37 AM EDT Neoplasm of uncertain behavior of left kidney ARTERIAL BLOOD GASES STAT 02/27/2025 11:00 AM EDT ARTERIAL BLOOD GAS, POC Routine 02/27/2025 10:39 AM EDT ARTERIAL BLOOD GASES STAT 02/27/2025 10:07 AM EDT ARTERIAL BLOOD GASES STAT 02/27/2025 9:07 AM EDT ARTERIAL BLOOD GAS, POC Routine 02/27/2025 9:00 AM EDT TYPE + SCREEN Routine 02/27/2025 8:10 AM EDT Neoplasm of uncertain behavior of left kidney PERIPHERAL IV PLACEMENT Routine 02/27/2025 8:05 AM EDT ARTL CATHJ/CANNULJ MNTR/TRANSFUSION SPX PRQ Routine 02/27/2025 8:00 AM EDT INTUBATION Routine 02/27/2025 7:56 AM EDT LAPAROSCOPY NEPHRECTOMY W/PARTIAL URETERECT 02/27/2025 7:43 AM EDT Neoplasm of uncertain behavior of left kidney GLUCOSE, BLOOD (POC) Routine 02/27/2025 6:53 AM EDT HEMOGLOBIN A1C Routine 02/07/2025 2:41 PM EDT Pre-op evaluation FERRITIN BLD Routine 02/07/2025 2:41 PM EDT Pre-op evaluation IRON + TIBC Routine 02/07/2025 2:41 PM EDT Pre-op evaluation ECG COMPLETE 02/07/2025 1:03 PM EDT ECG COMPLETE Routine 02/07/2025 1:03 PM EDT Pre-op evaluation Depression, unspecified depression type Type 2 diabetes mellitus without complication, unspecified whether detention insulin use (HCC) BPH with obstruction/lower urinary tract symptoms Hypertension, unspecified type ROSA M (obstructive sleep apnea) Class 2 obesity due to excess calories without serious comorbidity in adult, unspecified BMI US IMAGING GUIDED BIOPSY RENAL Routine 01/24/2025 12:27 PM EDT SURGICAL PATHOLOGY Routine 01/24/2025 11 :40 AM EDT Neoplasm of uncertain behavior of left kidney RENAL BIOPSY PRQ TROCAR/NEEDLE 01/24/2025 10:49 AM EDT Neoplasm of uncertain behavior of left kidney BACTERIAL CULTURE, URINE Routine 01/24/2025 10:19 AM EDT Neoplasm of uncertain behavior of left kidney GLUCOSE, BLOOD (POC) Routine 01/24/2025 10:15 AM EDT CONFIRM BLOOD TYPE Routine 01/24/2025 8: 40 AM EDT Neoplasm of uncertain behavior of left kidney TYPE + SCREEN Routine 01/24/2025 8:35 AM EDT Neoplasm of uncertain behavior of left kidney PROTHROMBIN TIME STAT 01/24/2025 8:35 AM EDT Renal mass, left ACTIVATED PTT Routine 01/24/2025 8:35 AM EDT Neoplasm of uncertain behavior of left kidney COMPREHENSIVE METABOLIC PANEL Routine 01/24/2025 8:35 AM EDT Neoplasm of uncertain behavior of left kidney CBC + DIFF STAT 01/24/2025 8:35 AM EDT Neoplasm of uncertain behavior of left kidney BASIC METABOLIC PANEL Routine 01/03/2025 3:39 PM EDT Screening for nephropathy CT OUTSIDE CD DICOM IMPORT 12/14/2024 from Last 3 Months Results * EXTERNAL LAB (03/13/2025 8:58 AM EDT) Only the most recent of3 resultswithin the time period is included. us External Provider PA-C LABORATORY Final Res ult * EXTERNAL IMAGING (03/13/2025 8:58 AM EDT) Anatomical Region Laterality Modality Other us External Provider PA-C RADIOLOGY Final Res ult * EXTERNAL PROCEDURE (03/13/2025 8:58 AM EDT) us External Provider PA-C PROCEDURE Final Res ult * (ABNORMAL) RENAL FUNCTION PANEL (03/10/2025 2:38 PM EDT) Only the most recent of2 resultswithin the time period is included. Pathologist [facility] Albumin 3.9 3.9 - 4.9 g/dL 03/11/2025 3:52 AM [facility] Calcium, Total 9.8 8.5 - 10.2 mg/dL 03/11/2025 3:52 AM [facility] Phosphorus 3.7 2.7 - 4.8 mg/dL 03/11/2025 3:52 AM [facility] Glucose 94 74 - 99 mg/dL 03/11/2025 3:52 AM [facility] Comment: The [place] Diabetes Association (ADA) provides guidance for cutoff [...] Standards of Medical Care in Diabetes 2016, [place] [employer]. Diabetes Care. 2016.39(Suppl 1). BUN 31(H) 9 - 24 mg/dL 03/11/2025 3:52 AM [facility] Creatinine 2.16(H) 0.73 - 1.22 mg/dL 03/11/2025 3:52 AM [facility] Sodium 134(L) 136 - 144 mmol/L 03/11/2025 3:52 AM [facility] Potassium 6.2(HH) 3.7 - 5.1 mmol/L 03/11/2025 3:52 AM [facility] Chloride 100 98 - 107 mmol/L 03/11/2025 3:52 AM [facility] CO2 19(L) 22 - 30 mmol/L 03/11/2025 3:52 AM [facility] Anion Gap 15 8 - 15 mmol/L 03/11/2025 3:52 AM [facility] Estimated Glomerular Filtration Rate 33(L) >=60 mL/min/1. 73m 03/11/2025 3:52 AM EDT [facility] Comment:Estimated Glomerular Filtration Rate (eGFR) is calculated using the 2020 CKD-EPI creatinine equation. This equation utilizes serum creatinine, sex, and age as parameters. The creatinine assay has traceable calibration to isotope dilution- mass spectrometry. Refer to KDIGO guidelines for clinical interpretation. In patients with unstable renal function, e.g. those with acute kidney injury, the eGFR may not accurately reflect actual GFR. Blood BLOOD SPECIMEN / Unknown Venipuncture / Unknown 03/10/2025 2:38 PM EDT 03/10/2025 2:39 PM EDT us Tamanna Zhu APRN.FISHER REEF NET LABORATORY Final Resul t Performing Organization Address [facility] Co de Phone Number [facility] [address] [place] [address], [place] * (ABNORMAL) GLUCOSE, BLOOD (POC) (02/28/2025 12:37 PM EDT) Only the most recent of11 resultswithin the time period is included. [facility] Glucose, Point of Care 143(A) 74 - 99 mg/dL [facility] Comment: Location:[facility], [address] [place] [address], [facility] The Accu-Chek Inform II glucose meter has not been approved for testing on patients receiving intensive medical intervention or therapy and results from this point of care glucose test should not be used for patient management decisions in these cases. Inaccurate results may also occur from other interfering factors, such as N-acetylcysteine (blood concentrations of greater than 5mg/dL), galactose, extremes of hematocrit (<10 or >65), or high doses of ascorbic acid (vitamin C) greater than 3mg/dL. Consider alternate testing mechanisms (e.g. core lab, blood gas instrument) in the above situations. 02/28/2025 12:3 7 PM EDT us Bing Arvizu MD POC TESTING Final Resul t Performing Organization Address [facility] Co de Phone Number [facility] POINT OF CARE [facility] [address] [place], [place] * (ABNORMAL) BASIC METABOLIC PANEL (02/28/2025 10:43 AM EDT) Only the most recent of4 resultswithin the time period is included. [facility] Signature Glucose 131(H) 74 - 99 mg/dL 02/28/2025 12:03 PM EDT [facility] Comment: The [place] Diabetes Association (ADA) provides guidance for cutoff [...] Standards of Medical Care in Diabetes 2016, [place] [employer]. Diabetes Care. 2016.39(Suppl 1). BUN 28(H) 9 - 24 mg/dL [facility]2025 [facility] Creatinine 2.00(H) 0.73 - 1.22 mg/dL 02/28/2025 12:03 PM [facility] Sodium 135(L) 136 - 144 mmol/L 02/28/2025 12:03 PM EDT [facility] Potassium 4.6 3.7 - 5.1 mmol/L 02/28/2025 12:03 PM EDT [facility] Chloride 99 98 - 107 mmol/L 02/28/2025 12:03 PM EDT [facility] CO2 21(L) 22 - 30 mmol/L 02/28/2025 12:03 PM EDT [facility] Anion Gap 15 8 - 15 mmol/L 02/28/2025 12:03 PM [facility] Calcium, Total 8.9 8.5 - 10.2 mg/dL 02/28/2025 12:03 PM EDT [facility] Estimated Glomerular Filtration Rate 36(L) >=60 mL/min/1. 73m 02/28/2025 12:03 PM EDT [facility] Comment:Estimated Glomerular Filtration Rate (eGFR) is calculated using the 2020 CKD-EPI creatinine equation. This equation utilizes serum creatinine, sex, and age as parameters. The creatinine assay has traceable calibration to isotope dilution- mass spectrometry. Refer to KDIGO guidelines for clinical interpretation. In patients with unstable renal function, e.g. those with acute kidney injury, the eGFR may not accurately reflect actual GFR. Blood BLOOD SPECIMEN / Unknown Venipuncture / Unknown 02/28/2025 10:43 AM EDT 02/28/2025 11:44 AM EDT us Bing Arvziu MD LABORATORY Final Resul t [facility] [address] [place] [address], * (ABNORMAL) COMPLETE BLOOD COUNT (02/28/2025 5:53 AM EDT) Only the most recent of2 resultswithin the time period is included. WBC 12.56(H) 3.70 - 11.00 k/uL 02/28/2025 6:19 AM [facility] RBC 3.84(L) 4.20 - 6.00 m/uL 02/28/2025 6:19 AM [facility] Hemoglobin 9.2(L) 13.0 - 17.0 g/dL 02/28/2025 6:19 AM [facility] Hematocrit 30.1(L) 39.0 - 51.0 % 02/28/2025 6:19 AM [facility] MCV 78.4(L) 80.0 - 100.0 fL 02/28/2025 6:19 [facility] MCH 24.0(L) 26.0 - 34.0 pg 02/28/2025 6:19 AM [facility] MCHC 30.6 30.5 - 36.0 g/dL 02/28/2025 6:19 AM [facility] RDW-CV 16.5(H) 11.5 - 15.0 % 02/28/2025 6:19 [facility] Platelet Count 243 150 - 400 k/uL 02/28/2025 6:19 AM EDT [facility] MPV 9.1 9.0 - 12.7 fL 02/28/2025 6:19 AM EDT [facility] Absolute nRBC <0.01 <0.01 k/uL 02/28/2025 6:19 AM EDT [facility] Blood BLOOD SPECIMEN / Unknown Venipuncture / Unknown 02/28/2025 5:53 AM EDT 02/28/2025 6:06 AM EDT us Bing Arvizu MD LABORATORY Final Resul t [facility] [address] [place] [address], * (ABNORMAL) ARTERIAL BLOOD GAS, POC (02/27/2025 11:50 AM EDT) Only the most recent of3 resultswithin the time period is included. pH, Arterial 7.351 7.350 - 7.450 pH units Perfusion [facility] pCO2, Arterial 39.9 35.0 - 45.0 mmHg [facility] pO2, Arterial 161(A) 80 - 105 mmHg Perfusion [facility] Base Excess (POCT) -3(A) -2 - 3 mmol/L [facility] HCO3 (POCT) 22.1 22.0 - 26.0 mmol/L [facility] sO2 (POCT) 99(A) 95 - 98 % Perfusion [facility] Sodium (POCT) 133(A) 138 - 146 mmol/L [facility] Potassium (POCT) 5.4(A) 3.5 - 4.9 mmol/L [facility] Glucose (POCT) 179(A) 74 - 99 mg/dL [facility] Ionized Ca (POCT) 1.18 1.12 - 1.32 mmol/L Perfusion [facility] Hemoglobin (POCT) 10.5(A) 12.0 - 17.0 g/dL [facility] Hematocrit (POCT) 31(A) 38 - 51 %PCV Perfusion [facility] 02/27/2025 11:5 0 AM EDT Narrative [facility] POINT OF CARE - 02/27/2025 11:50 AM EDT Location:[facility] [address] [place] [address], [address] [place] Bing Arvizu MD POC TESTING Final Resul t [facility] POINT OF CARE Perfusion [address] * SURGICAL PATHOLOGY (02/27/2025 11:37 AM EDT) Only the most recent of2 resultswithin the time period is included. Case Report Surgical Pathology Report Case: [id number] Authorizing Provider: Bing Arvizu MD Collected: 02/27/2025 11:37 AM Ordering Location: [facility] Received: 02/27/2025 12:13 PM Operating Room Pathologist: Shasta Middleton MD Specimens: A) - Lymph Node (Specify Site in Comments), para aortic lymph nodes B) - Kidney, Left, Resection, radical nephrectomy 03/11/2025 1:56 PM EDT [facility] FINAL DIAGNOSIS A. Lymph nodes, para-aortic, regional [...] (10/02). - Portion of benign adrenal gland. 03/11/2025 1:56 PM EDT [facility] at 1356 EDT Diagnosis Comment Immunohistochemical stains were performed (blocks B6 and B20) [...] case and concurs with the tumor classification. 03/11/2025 1:56 PM EDT [facility] Block for additional Biomarkers/Mo lecular studies Lázaro metastasis: B16 Kidney primary: B6, B20 03/11/2025 1:56 PM EDT [facility] Synoptic Report KIDNEY: Nephrectomy KIDNEY: RESECTION - All Specimens 8th [...] adenoma(s) Additional Findings in Kidney: Cortical cysts 03/11/2025 1:56 PM EDT [facility] Gross Description A. Lymph Node (Specify Site in Comments) Received in [...] 2025 2:55 PM Gross examination performed at [facility], [address] [place] [address] B. Kidney, Left, Resection Received in formalin [...] medullary tissue is present. Photographs are taken. Charrer sections are submitted as follows: B1 ureter [...] adjacent dissecting area from superior pole B12 associate financial representative cyst from superior and mid pole B13-B14 adrenal gland with disrupted and nodular areas B15-B16 hilar lymph node KSZ February 28, 2025 Gross examination performed at [address] [address] Additional sections of mass are submitted in cassettes B17-B22. 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] 03/11/2025 1:56 PM EDT [facility] Performing Lab Diagnostic interpretation performed at: [facility], [address] [place] [address], [place] [id number] CLIA# [id number] Record Retrieval Specialist: Zack Baez MD 03/11/2025 1:56 PM EDT [facility] Disclaimer Laboratory Developed Test (LDT) Disclaimer: Performance characteristics of immunohistochemical, immunofluorescent, and chromogenic in-situ hybridization tests have been determined by the performing laboratory within [facility]'s [facility] Pathology and Laboratory Medicine Department ([facility], [facility], [facility], [facility], [facility], [facility], or [facility]) in a manner consistent with CLIA requirements. One or more of these tests may not have been cleared or approved by the FDA. [facility] is regulated under CLIA as qualified to perform high-complexity testing. These tests are used for clinical purposes. These should not be regarded as investigational or for research. Positive and negative controls stain appropriately. 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 pH, Arterial 7.35 7.35 - 7.45 02/27/2025 11:18 AM EDT [facility] pH, Temp Corrected, Arterial 02/27/2025 11:18 AM EDT [facility] pCO2, Arterial 41 36 - 46 mm Hg 02/27/2025 11:18 AM EDT [facility] pCO2, Temp Corrected, Arterial 02/27/2025 11:18 AM EDT [facility] pO2, Arterial 179(H) 85 - 95 mm Hg 02/27/2025 11:18 AM EDT [facility] pO2, Temp Corrected, Arterial 02/27/2025 11:18 AM EDT [facility] Bicarbonate, Arterial 22 22 - 26 mmol/L 02/27/2025 11:18 AM EDT [facility] O2 Saturation, Arterial 100(H) 95 - 98 % 02/27/2025 11:18 AM EDT [facility] Base Deficit, Arterial -3(L) -2 - 0 mmol/L 02/27/2025 11:18 AM [facility] Oxyhemoglobin, Arterial 97 95 - 98 % 02/27/2025 11:18 AM [facility] Carboxyhemoglo bin, Arterial 1.4 0.0 - 2.0 % 02/27/2025 11:18 AM [facility] Comment:Carboxyhemoglobin Re ference Range for Smokers: 2.0-8.0% Methemoglobin, Arterial 0.8 0.0 - 1.5 % 02/27/2025 11:18 AM [facility] Sodium, Whole Blood 135(L) 136 - 144 mmol/L 02/27/2025 11:18 AM [facility] Potassium, Whole Blood 5.5(H) 3.5 - 5.0 mmol/L 02/27/2025 11:18 AM [facility] Chloride, Whole Blood 103 97 - 105 mmol/L 02/27/2025 11:18 AM [facility] Calcium Ionized, Whole Blood 1.24 1.08 - 1.30 mmol/L 02/27/2025 11:18 AM [facility] Calcium Ionized, pH corrected 1.20 1.08 - 1.30 mmol/L 02/27/2025 11:18 AM [facility] Glucose, Whole Blood 190(H) 60 - 105 mg/dL 02/27/2025 11:18 AM [facility] Lactate 2.7(H) 0.5 - 2.2 mmol/L 02/27/2025 11:18 AM [facility] Hemoglobin, Whole Blood 11.0(L) 13.0 - 17.0 g/dL 02/27/2025 11:18 AM [facility] Hematocrit, Whole Blood 33.9(L) 39.0 - 51.0 % 02/27/2025 11:18 AM [facility] Blood, Arterial BLOOD SPECIMEN / Unknown 02/27/2025 11:00 AM EDT 02/27/2025 11:04 AM EDT Giorgio Masterson DO BLOOD GASES Final Resul t Performing Organization Address City/State/[facility] de Phone Number [facility] [address] [place] [address], * TYPE + SCREEN (02/27/2025 8:10 AM EDT) Only the most recent of2 resultswithin the time period is included. 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] us Bing Arvizu MD BLOOD BANK Final Resul t Performing Organization Address [facility] Co de Phone Number [facility] [address] [place] [address], * PERIPHERAL IV PLACEMENT (02/27/2025 8:05 AM EDT) Narrative Ciera Honeycutt, PROJECTOR OPERATOR.BOARDMARKER - 02/27/2025 8:05 AM EDT Ciera Honeycutt, PROJECTOR OPERATOR.BOARDMARKER 02/27/2025 9:12 AM PIV General Information Procedure Start Time/Medication Administration: [...] Right Location: Hand Imaging Guidance Used: No us Giorgio Masterson DO ANESTHESIA ORDERABLES Edite d Result - Final * ARTL CATHJ/CANNULJ MNTR/TRANSFUSION SPX PRQ (02/27/2025 8:00 AM EDT) Narrative Giorgio Masterson DO - 02/27/2025 8:00 AM EDT Giorgio Masterson DO 02/28/2025 7:22 AM A-Line General Information Procedure Start Time/Medication Administration: [...] suitable for the patient's condition and procedure. 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 Staffing Anesthesiologist: Giorgio Masterson DO BOARDMARKER: Ciera Honeycutt APRN.BOARDMARKER SRNA: Tianna Diego SRNA Performed by: ELICIA [...] glidescope Two handed mask with oral airway us Giorgio Masterson DO ANESTHESIA ORDERABLES Edite d Result - Final * (ABNORMAL) IRON AND TIBC (02/07/2025 2:41 PM EDT) Iron 23(L) 41 - 186 ug/dL 02/08/2025 2:23 PM EDT [facility] TIBC 247 232 - 386 ug/dL 02/08/2025 2:23 PM EDT [facility] Transferrin Saturation 9.3(L) 15.0 - 57.0 % 02/08/2025 2:23 PM EDT [facility] Blood BLOOD SPECIMEN / Unknown Venipuncture / Unknown 02/07/2025 2:41 PM EDT 02/07/2025 2:42 PM EDT Veronica Romero APRN.[facility] Fin al Result [facility] [address] [address], * HEMOGLOBIN A1C (02/07/2025 2:41 PM EDT) Hemoglobin A1C 5.4 4.3 - 5.6 % 02/08/2025 4:25 PM EDT [facility] Comment:[place] Diabetes As sociation guidelines indicate that patients with HgbA1c in the range 5.7-6.4% are at increased risk for development of diabetes, and intervention by lifestyle modification may be beneficial. HgbA1c greater or equal to 6.5% is considered diagnostic of diabetes. Estimated Average Glucose 108 mg/dL 02/08/2025 4:25 PM EDT [facility] Comment:eAG: (Estimated aver age glucose) is a calculated value from HgbA1c and is associate financial representative of the average blood glucose level in the last 2-3 month period. Blood BLOOD SPECIMEN / Unknown Venipuncture / Unknown 02/07/2025 2:41 PM EDT 02/07/2025 2:42 PM EDT Veronica Romero PROJECTOR OPERATOR.[facility] Fin al Result Performing Organization Address [facility]/ZIP Co de Phone Number [facility] [place] [address], * FERRITIN (02/07/2025 2:41 PM EDT) Ferritin 131.0 30.3 - 565.7 ng/mL 02/08/2025 2:34 PM EDT [facility] Blood BLOOD SPECIMEN / Unknown Venipuncture / Unknown 02/07/2025 2:41 PM EDT 02/07/2025 2:42 PM EDT Veronica Romero APRN.[facility] Fin al Result Performing Organization Address [facility] Co de Phone Number [facility] [address] [place] [address], [place] * ECG COMPLETE (02/07/2025 1:03 PM EDT) Ventricular Rate 51 BPM [facility] Atrial Rate 51 BPM [facility] P-R Interval 136 ms [facility] QRS Duration 86 ms [facility] QT Interval 452 ms [facility] QTC Calculation ([place]) 416 ms [facility] Calculated P [place] 50 degrees [facility] Calculated R [place] 44 degrees [facility] Calculated T [place] 55 degrees [facility] 02/07/2025 1:03 PM EDT [facility]ressions [facility] - 02/26/2025 3:20 PM EDT SINUS BRADYCARDIA OTHERWISE NORMAL ECG Confirmed by FRANC SHIPMAN MD ([id number]) on 02/26/2025 3:20:12 PM Narrative [facility] - 02/26/2025 3:20 PM EDT NAME : HARMAN LE PID : [id number] : 1960 Gender : Male Race : ORD : [id number] Procedure Date : Feb 07 2025 13:03:37 Edit Date : Feb 26 2025 15:20:17 Diagnosis: SINUS BRADYCARDIA OTHERWISE NORMAL ECG Confirmed by FRANC SHIPMAN MD ([id number]) on 02/26/2025 3:20:12 PM Test Reason : Z01.818 Pre-op evaluation Location : 145 : LOCARD Overread By : FRANC SHIPMAN MD Edited By : FRANC SHIPMAN MD Referred By : BING ARVIZU Acquired by : am, us Veronica Romero PROJECTOR OPERATOR.[facility]ISHER REE[employer] NET EKG Fin al Result [facility] [place] [address] * US IMAGING GUIDED BIOPSY RENAL (01/24/2025 12:27 PM EDT) Anatomical Region Laterality Modality Ultrasound 01/24/2025 12:2 7 PM EDT Impressions 01/24/2025 1:27 PM EDT IMPRESSION: ULTRASOUND GUIDED LEFT RENAL MASS BIOPSY DESCRIBED. 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 Estrada MILL SUPERVISOR(S): None. CONSENT: The risks, benefits, treatment options, [...] performed by the: attending radiologist, without an assistant womens volleyball coach. ANESTHESIA/SEDATION: Conscious sedation: Versed: 1.0 mg IV [...] DEVICE: 18 gauge Corvocet core biopsy needle. 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 Estrada MILL SUPERVISOR(S): None. CONSENT: The risks, benefits, treatment options, [...] performed by the: attending radiologist, without an assistant womens volleyball coach. ANESTHESIA/SEDATION: Conscious sedation: Versed: 1.0 mg IV [...] DEVICE: 18 gauge Corvocet core biopsy needle. IMPRESSION IMPRESSION: ULTRASOUND GUIDED LEFT RENAL MASS BIOPSY DESCRIBED. v 12.9.21 Head Waiter/Waitress Banquet: PSCB Transcribe Date/Time: Jan 24 2025 12:25P Dictated by : YOVANY ESTRADA DO This examination was interpreted and the report reviewed and electronically signed by: YOVANY ESTRADA DO on Jan 24 2025 1:25PM EST us [facility] Final Result * BACTERIAL CULTURE, URINE (01/24/2025 10:19 AM EDT) Culture, Urine <10,000 CFU/ml Normal urogenital rudy 01/25/2025 12:38 PM EDT [facility] Urine MID-STREAM URINE SPECIMEN / Unknown Non Blood / Unknown 01/24/2025 10:19 AM EDT 01/24/2025 11:38 AM EDT Bing Arvizu MD MICROBIOLOGY Final Resul t Performing Organization Address City/[facility] Co de Phone Number [facility] [address] [place] [address], * CONFIRM BLOOD TYPE (01/24/2025 8:40 AM EDT) ABO O 01/24/2025 11:31 AM EDT [facility] Rh(D) Positive 01/24/2025 11:31 AM EDT [facility] Blood BLOOD SPECIMEN / Unknown Venipuncture / Unknown 01/24/2025 8:40 AM EDT 01/24/2025 8:40 AM EDT Bing Arvizu MD BLOOD BANK Final Resul t Performing Organization Address [facility] de Phone Number [facility] [address] [place] [address], * PROTHROMBIN TIME (01/24/2025 8:35 AM EDT) PT Sec 12.1 9.7 - 13.0 sec 01/24/2025 9:13 AM EDT [facility] INR 1.1 0.9 - 1.3 01/24/2025 9:13 AM EDT [facility] Comment: Vitamin K Antagonist (VKA) Therapeutic Range: INR 2 to 3 (Target INR of 2.5) Note: For patients treated with VKA drugs, such as warfarin, the [place] [employer] 2012 Guideline recommends [...] to 3.5 (target INR of 3). Waqar GH, et al. Chest 2012, 141:7S-47S Waqas RA, et al. [facility] 2017, 70: 252-289 Blood BLOOD SPECIMEN / Unknown Venipuncture / Unknown 01/24/2025 8:35 AM EDT 01/24/2025 8:35 AM EDT us Syl Bar PROJECTOR OPERATOR.[facility] Final Result [facility] [address] [place] [address], * (ABNORMAL) COMPREHENSIVE METABOLIC PANEL (01/24/2025 8:35 AM EDT) Pathologist [facility] Protein, Total 7.6 6.3 - 8.0 g/dL 01/24/2025 11:46 AM EDT [facility] Albumin 3.8(L) 3.9 - 4.9 g/dL 01/24/2025 11:46 AM EDT [facility] Calcium, Total 9.2 8.5 - 10.2 mg/dL 01/24/2025 11:46 AM EDT [facility] Bilirubin, Total 0.4 0.2 - 1.3 mg/dL 01/24/2025 11:46 AM EDT [facility] Alkaline Phosphatase 66 38 - 113 U/L 01/24/2025 11:46 AM EDT [facility] AST 12(L) 14 - 40 U/L 01/24/2025 11:46 AM EDT [facility] ALT 8(L) 10 - 54 U/L 01/24/2025 11:46 AM EDT [facility] Glucose 112(H) 74 - 99 mg/dL 01/24/2025 11:46 AM [facility] Comment: The [place] Diabetes Association (ADA) provides guidance for cutoff [...] Standards of Medical Care in Diabetes 2016, [place] Diabetes Association. Diabetes Care. 2016.39(Suppl 1). BUN 24 9 - 24 mg/dL 01/24/2025 11:46 AM [facility] Creatinine 1.44(H) 0.73 - 1.22 mg/dL 01/24/2025 11:46 AM [facility] Sodium 137 136 - 144 mmol/L 01/24/2025 11:46 AM [facility] Potassium 4.5 3.7 - 5.1 mmol/L 01/24/2025 11:46 AM [facility] Chloride 98 98 - 107 mmol/L 01/24/2025 11:46 AM [facility] CO2 28 22 - 30 mmol/L 01/24/2025 11:46 AM [facility] Anion Gap 11 8 - 15 mmol/L 01/24/2025 11:46 AM [facility] Estimated Glomerular Filtration Rate 54(L) >=60 mL/min/1. 73m 01/24/2025 11:46 AM [facility] Comment:Estimated Glomerular Filtration Rate (eGFR) is calculated using the 2020 CKD-EPI creatinine equation. This equation utilizes serum creatinine, sex, and age as parameters. The creatinine assay has traceable calibration to isotope dilution- mass spectrometry. Refer to KDIGO guidelines for clinical interpretation. In patients with unstable renal function, e.g. those with acute kidney injury, the eGFR may not accurately reflect actual GFR. Blood BLOOD SPECIMEN / Unknown Venipuncture / Unknown 01/24/2025 8:35 AM EDT 01/24/2025 8:35 AM EDT us Bing Arvizu MD LABORATORY Final Resul t [facility] [address] [facility] [address] [place] [address], [place] * (ABNORMAL) COMPLETE BLOOD COUNT AND DIFFERENTIAL (01/24/2025 8:35 AM EDT) WBC 12.80(H) 3.70 - 11.00 k/uL 01/24/2025 9:05 AM EDT [facility] RBC 4.53 4.20 - 6.00 m/uL 01/24/2025 9:05 AM EDT [facility] Hemoglobin 11.1(L) 13.0 - 17.0 g/dL 01/24/2025 9:05 AM EDT [facility] Hematocrit 35.9(L) 39.0 - 51.0 % 01/24/2025 9:05 AM EDT [facility] MCV 79.2(L) 80.0 - 100.0 fL 01/24/2025 9:05 AM EDT [facility] MCH 24.5(L) 26.0 - 34.0 pg 01/24/2025 9:05 AM EDT [facility] MCHC 30.9 30.5 - 36.0 g/dL 01/24/2025 9:05 AM EDT [facility] RDW-CV 15.0 11.5 - 15.0 % 01/24/2025 9:05 AM EDT [facility] Platelet Count 310 150 - 400 k/uL 01/24/2025 9:05 AM EDT [facility] MPV 9.7 9.0 - 12.7 fL 01/24/2025 9:05 AM EDT [facility] Neutrophils % 79.3 % 01/24/2025 9:05 AM EDT [facility] Abs Neut 10.14(H) 1.45 - 7.50 k/uL 01/24/2025 9:05 AM EDT [facility] Lymphocytes % 10.3 % 01/24/2025 9:05 AM EDT [facility] Abs Lymph 1.32 1.00 - 4.00 k/uL 01/24/2025 9:05 AM EDT [facility] Monocytes % 8.5 % 01/24/2025 9:05 AM EDT [facility] Abs [place] 1.09(H) <0.87 k/uL 01/24/2025 9:05 AM EDT [facility] Eosinophils % 0.7 % 01/24/2025 9:05 AM EDT [facility] Abs Eosin 0.09 <0.46 k/uL 01/24/2025 9:05 AM EDT [facility] Basophils % 0.5 % 01/24/2025 9:05 AM EDT [facility] Abs Baso 0.07 <0.11 k/uL 01/24/2025 9:05 AM EDT [facility] Immature Granulocytes % 0.7 % 01/24/2025 9:05 AM EDT [facility] Abs Immature Gran 0.09 <0.10 k/uL 01/24/2025 9:05 AM EDT [facility] NRBC 0.0 /100 WBC 01/24/2025 9:05 AM EDT [facility] Absolute nRBC <0.01 <0.01 k/uL 01/24/2025 9:05 AM EDT [facility] Diff Type Auto 01/24/2025 9:05 AM EDT [facility] Blood BLOOD SPECIMEN / Unknown Venipuncture / Unknown 01/24/2025 8:35 AM EDT 01/24/2025 8:35 AM EDT us Bing Arvizu MD LABORATORY Final Resul t [facility] [address] [facility] [address] [address], * ACTIVATED PARTIAL THROMBOPLASTIN TIME (01/24/2025 8:35 AM EDT) APTT 31.6 23.0 - 32.4 sec 01/24/2025 9:13 AM EDT [facility] Blood BLOOD SPECIMEN / Unknown Venipuncture / Unknown 01/24/2025 8:35 AM EDT 01/24/2025 8:35 AM EDT Narrative [facility] - 01/24/2025 9:13 AM EDT Unfractionated Heparin Therapeutic Ranges: Standard Heparin Nomogram: 53 to 78 seconds (anti-Xa level of 0.3 to 0.7 U/ml) Low Dose/ACS Nomogram: 49 to 67 seconds (anti-Xa level of 0.2 to 0.5 U/ml) Stroke Treatment Nomogram: 49 to 67 seconds (anti-Xa level of 0.2 to 0.5 U/ml) Note: The APTT therapeutic range has been determined for the current lot of laboratory APTT reagent in use throughout the [facility]. Bing Arvizu MD LABORATORY Final Resul t [facility] [address] [address], [place] * CT-CT ABDOMEN PELVIS WO/W CON IMPORT (12/14/2024) Anatomical Region Laterality Modality Other 12/14/2024 Narrative 12/21/2024 10:58 AM EDT Images were obtained outside of [facility] Procedure Note Provider, [facility] [place] - 12/21/2024 Images were obtained outside of [facility] Cc Provider RADIOLOGY Final Result from Last 3 Months Insurance [facility] Care Teams Heart Specialist Relationship Specialty Start Date End Date Jessica Murphy CNP [address] [place] [address] PCP - General Internal Medicine 02/07/25
--- OUTSIDE RECORDS SUMMARY | 2025-03-15 10:21 | XMS_ITS | Encounter Summary ---
Author Organization [facility] Address [address] [place] [address] Care Team Providers Care Envelope Patternmaker Name Role Phone KatherineSuzanneJessicahank Mayer CNP Primary Care Provider + Source Comments In the event this information is protected by the Federal Confidentiality of Alcohol and Drug AbusePatient Records regulations: The Federal rules restrict any use of the information to criminally investigate or prosecute any alcohol or drug abuse patient.[facility] Encounter Details Date Type Department Care Team ([facility] Contact Info) Description 01/04/2025 Results Follow-Up Urology [address] [place] [id number] [place] [address] [place] [address] Social History Tobacco Use Types Packs/Day Years Used Date Smoking Tobacco: Never Assessed Area Deprivation Index Answer Date Roland rded National Score (1-100), lower number is lower ri sk 78 01/03/2025 State Score (1-10), lower number is lower risk 6 01/03/2025 Data from: https://www.neighborhoodatlas.medicine.[facility].edu/. Last address used for calculation [address] [place] [address] 01/03/2025 Sex and Gender Information Value Date Recorded Sex Assigned at Male 03/02/2025 11:28 PM EDT Legal Sex Male 8:56 AM EDT Gender Identity Male 03/02/2025 11:28 PM EDT Sexual Orientation Straight 03/02/2025 11 :28 PM EDT documented as of this encounter Plan of Treatment Upcoming Encounters Date Type Department Care Team (Latest Contact Info) Description 03/18/2025 4:00 PM EDT Visit (SP) Office Hematology/Oncology [address] [place] [address] [place] [address] Ernesto Phoenix MD [address] [place] [address] renal cell carcinoma documented as of this encounter Visit Diagnoses Not on filedocumented in this encounter Care Teams Envelope Patternmaker Relationship Specialty Start Date End Date Jessica Murphy, L D RN [address] [place] [address] PCP - General Internal Medicine 02/07/25 documented as of this encounter
--- OUTSIDE RECORDS SUMMARY | 2025-03-15 10:21 | XMS_ITS | Encounter Summary ---
Author Organization [facility] Address [facility] [place] [address] Care Team Providers Care Engineering Supervisor Name Role Phone KatherineJessica Leyla ADAME Primary Care Provider + Source Comments In the event this information is protected by the Federal Confidentiality of Alcohol and Drug AbusePatient Records regulations: The Federal rules restrict any use of the information to criminally investigate or prosecute any alcohol or drug abuse patient.[facility] Encounter Details Date Type Department Care Team (Late st Contact Info) Description 03/12/2025 Telephone Urology [address] [place] [address] Rivera Arviuz MD [address] [place] [address] Social History Tobacco Use Types [...] is lower risk 6 01/03/2025 Data from: https://www.neighborhoodatlas.[facility]/. Last address used for calculation [address] 01/03/2025 Sex and Gender Information Value Date [...] 02/28/2025 3:36 PM EDT Trent Adler RN documented as of this encounter Mental Status * Because of a physical, mental, or emotional condition, do you have serious difficulty concentrating, remembering, or making decisions? Answer Entry Date Author No 02/28/2025 3:36 PM EDT Trent Adler RN documented in this encounter Miscellaneous Notes * Telephone Encounter - Guerita Worley RN - 03/12/2025 1:30 PM EDT [facility] forms completed and faxed to [place]. Fax confirmation received. Completed forms placed at the front end wheel loader operator to be scanned into patients chart. Guerita Worley RN documented in this encounter Plan of Treatment Upcoming Encounters Date Type Department Care Team (Latest Contact Info) Description 03/18/2025 4:00 PM EDT Visit (SP) Office Hematology/Oncology [address] [place] [address] [place] [address] Ernesto Phoenix MD [address] [place] [address] renal cell carcinoma documented as of this encounter Visit Diagnoses Not on filedocumented in this encounter Care Teams Engineering Supervisor Relationship Specialty Start Date End Date Jessica Murphy CNP [address] [place] [address] PCP - General Internal Medicine 02/07/25 documented as of this encounter
--- OUTSIDE RECORDS SUMMARY | 2025-03-15 10:21 | XMS_ITS | Encounter Summary ---
Author Organization [facility] Address [address] [place] [address] Care Team Providers Care Battery Mechanic Name Role Phone Jessica Murphy CNP Primary Care Provider + Source Comments In the event this information is protected by the Federal Confidentiality of Alcohol and Drug AbusePatient Records regulations: The Federal rules restrict any use of the information to criminally investigate or prosecute any alcohol or drug abuse patient.[facility] Encounter Details Date Type Department Care Team (Late st Contact Info) Description 01/06/2025 Patient Msg Pre Anesthesia [address] [place] [address] Provider, Ccf [facility]ACC Appointment Social History Tobacco Use Types Packs/Day Years Used Date Smoking Tobacco: Never Assessed Area Deprivation Index Answer Date Roland rded National Score (1-100), lower number is lower ri sk 78 01/03/2025 State Score (1-10), lower number is lower risk 6 01/03/2025 Data from: https://www.neighborhoodatlas.medicine.[facility].edu/. Last address used for calculation [address] [place] [address] 01/03/2025 Sex and Gender Information Value Date [...] 4:00 PM EDT Visit (SP) Office Hematology/Oncology [address] [place] [address] Ernesto Phoenix MD [address] [place] [address] renal cell carcinoma documented as of this encounter Visit Diagnoses Not on filedocumented in this encounter Care Teams Battery Mechanic Relationship Specialty Start Date End Date Jessica Murphy CNP [address] [place] [address] PCP - General Internal Medicine 02/07/25 documented as of this encounter
--- OUTSIDE RECORDS SUMMARY | 2025-03-15 10:21 | XMS_ITS | Encounter Summary ---
Author Organization [facility] Address [address] [place] [address] Care Team Providers Care Stock And Station Agent Name Role Phone Jessica Murphy CNP Primary Care Provider + Source Comments In the event this information is protected by the Federal Confidentiality of Alcohol and Drug AbusePatient Records regulations: The Federal rules restrict any use of the information to criminally investigate or prosecute any alcohol or drug abuse patient.[facility] Encounter Details Date Type Department Care Team (Late st Contact Info) Description 01/20/2025 Patient Msg Angio [address] [place] [address] Provider, Ccf pre procedure instructions for 01/24/25 Social History Tobacco Use Types Packs/Day Years Used Date Smoking Tobacco: Never Assessed Area Deprivation Index Answer Date Roland rded National Score (1-100), lower number is lower ri sk 78 01/03/2025 State Score (1-10), lower number is lower risk 6 01/03/2025 Data from: https://www.neighborhoodatlas.medicine.[facility].edu/. Last address used for calculation [address] [place] [address] 01/03/2025 Sex and Gender Information Value Date [...] PM EDT Visit (SP) Office Hematology/Oncology [address] [place] [address] Ernesto Phoenix MD [address] [place] [address] renal cell carcinoma documented as of this encounter Visit Diagnoses Not on filedocumented in this encounter Care Teams Stock And Station Agent Relationship Specialty Start Date End Date Jessica Murphy CNP [address] [place] [address] PCP - General Internal Medicine 02/07/25 documented as of this encounter
--- OUTSIDE RECORDS SUMMARY | 2025-03-15 10:21 | XMS_ITS | Encounter Summary ---
Author Organization [facility] Address [address] [place] [address] Care Team Providers Care Ur Coordinator Name Role Phone Katherine Jessica Mayer CNP Primary Care Provider + Source Comments In the event this information is protected by the Federal Confidentiality of Alcohol and Drug AbusePatient Records regulations: The Federal rules restrict any use of the information to criminally investigate or prosecute any alcohol or drug abuse patient.[facility] Encounter Details Date Type Department Care Team (Late st Contact Info) Description 03/10/2025 Patient Update [facility] Provider Adult [address] [id number] Tamanna Zhu, [facility] [address] [phone] Social History Tobacco Use Types Packs/Day Years [...] is lower risk 6 01/03/2025 Data from: https://www.neighborhoodatlas.[facility]/. Last address used for calculation [address] 01/03/2025 Sex and Gender Information Value Date [...] Trent Adler RN documented in this encounter Plan of Treatment Upcoming Encounters Date Type Department Care Team (Latest Contact Info) Description 03/18/2025 4:00 PM EDT Visit (SP) Office Hematology/Oncology [address] [place] [address] [place] [address] Ernesto Phoenix MD [address] [place] [address] [place] [address] renal cell carcinoma documented as of this encounter Visit Diagnoses Not on filedocumented in this encounter Care Teams Ur Coordinator Relationship Specialty Start Date End Date Jessica Murphy, COMMANDING OFFICER [employer] [address] [place] [address] PCP - General Internal Medicine 02/07/25 documented as of this encounter
--- OUTSIDE RECORDS SUMMARY | 2025-03-15 10:21 | XMS_ITS | Encounter Summary ---
Author Organization [facility] Address [address] [place] [address] Care Team Providers Care Junior Media Buyer Name Role Phone Katherine Jessica Mayer CNP Primary Care Provider + Source Comments In the event this information is protected by the Federal Confidentiality of Alcohol and Drug AbusePatient Records regulations: The Federal rules restrict any use of the information to criminally investigate or prosecute any alcohol or drug abuse patient.[facility] Encounter Details Date Type Department Care Team ([facility] Contact Info) Description 02/14/2025 Patient Msg Cancer Appts [address] [place] [address] Provider, Ccf Iron Infusion Social History Tobacco Use Types Packs/Day Years [...] is lower risk 6 01/03/2025 Data from: https://www.neighborhoodatlas.medicine.[facility].edu/. Last address used for calculation [address] [place] [address] 01/03/2025 Sex and Gender Information Value Date [...] PM EDT Visit (SP) Office Hematology/Oncology [address] [place] [address] Ernesto Phoenix MD [address] [place] [address] renal cell carcinoma documented as of this encounter Visit Diagnoses Not on filedocumented in this encounter Care Teams Junior Media Buyer Relationship Specialty Start Date End Date Jessica Murphy CNP [address] [place] [address] PCP - General Internal Medicine 02/07/25 documented as of this encounter
--- OUTSIDE RECORDS SUMMARY | 2025-03-15 10:21 | XMS_ITS | Patient Health Record ---
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 Name Role Phone Jessica Murphy Primary Care Provider Allergies No Known Allergies Results Component Value Reference Range Notes UA (Urinalysis, Dipstix only - w/o micro) (Not yet reviewed by provider) Interpretation: Performing Lab: Notes/Report: GLUCOSE + 0 - 133 MG/DL ALBUMIN - NEG - NEG MG/DL BILIRUBIN - NEG - NEG MG/DL SPECIFIC GRAVITY 1.005 1.001 - 1.035 KETONES - NEG - NEG MG/DL BLOOD, UR + PH, UR 5 5 - 9 UROBILNOGEN - 0.2 - 1 MG/DL NITRITE + NEG - NEG ESTERASE (ATILIO) ++ NEG - NEG MG/DL GLYCOHEMOGLOBIN A1C Reviewed date:04/01/2024 03:43:33 PM Interpretation: Performing Lab: Notes/Report: [facility] , Glycohemoglobin A1C 5.8 4.5-6.2 % ADA RECOMMENDED LIMIT 4.0 - 6.0 ADA THERAPEUTIC TARGET < 7.0 ACTION SUGGESTED > 7.0 Estimated Average Glucose 120 Performing Lab: see note ML - [facility] LB UA RANDOM W or MICROSCOPIC Reviewed date:09/23/2024 09:32:27 AM Interpretation: Performing Lab: Notes/Report: [facility] , Color Urine LT. YELLOW YELLOW Clarity Urine CLEAR CLEAR Specific [place] Urine 1.020 1.005-1.025 pH Urine 6.0 5.0-9.0 Protein Urine TRACE NEG/TRACE mg/dL Glucose Urine UA NEGATIVE NEGATIVE mg/dL Bilirubin Urine NEGATIVE NEGATIVE Ketones Urine NEGATIVE NEGATIVE mg/dL Blood Urine MODERATE NEGATIVE Nitrite Urine POSITIVE NEGATIVE Urobilinogen Urine 0.2 0.2-1.0 EU/dL Leukocyte Esterase Urine SMALL NEGATIVE WBC Urine 10-20 NONE SEEN #/HPF RBC Urine 5-10 0-2 #/HPF Bacteria Urine SMALL NONE SEEN #/HPF Mucus Urine NONE SEEN NONE SEEN Squamous Epithelial Cell Urine RARE NONE/RARE #/LPF Crystals Seen? None Seen None Seen #/HPF Cast Seen? NONE SEEN NONE SEEN #/LPF Urine Culture Indicated ALREADY ORDERED Performing Lab: see note ML - [facility] LB Urine Culture, Routine Reviewed date:09/24/2024 09:00:01 AM Interpretation: Performing Lab: Notes/Report: [facility] , Urine Culture, Routine See Below For Report Urine Culture, Routine Organism: Escherichia coli. : O:ESCHCO Isolated Organism: 1.1 Antibiotic Interpretation JENNYFER Status Urine Culture, Routine *ABNORMAL* Urine Culture, Routine Organism: Escherichia coli. : O:ESCHCO Isolated Organism: 1.1 Antibiotic Interpretation JENNYFER Status Urine Culture, Routine Greater than 100, 000 colony forming units per mL Urine Culture, Routine Organism: Escherichia coli. : O:ESCHCO Isolated Organism: 1.1 Antibiotic Interpretation JENNYFER Status Urine Culture, Routine Escherichia coli. Urine Culture, Routine Organism: Escherichia coli. : O:ESCHCO Isolated Organism: 1.1 Antibiotic Interpretation JENNYFER Status Urine Culture, Routine Organism: Escheri branden coli. : Urine Culture, Routine Organism: Escherichia coli. : O:ESCHCO Isolated Organism: 1.1 Antibiotic Interpretation JENNYFER Status Urine Culture, Routine *ABNORMAL* Urine Culture, Routine Organism: Escherichia coli. : O:ESCHCO Isolated Organism: 1.1 Antibiotic Interpretation JENNYFER Status Urine Culture, Routine Cefazolin <=4 ug/mL Urine Culture, Routine Organism: Escherichia coli. : O:ESCHCO Isolated Organism: 1.1 Antibiotic Interpretation JENNYFER Status Urine Culture, Routine Cefazolin with an JENNYFER <=16 predicts susceptibility Urine Culture, Routine Organism: Escherichia coli. : O:ESCHCO Isolated Organism: 1.1 Antibiotic Interpretation JENNYFER Status Urine Culture, Routine to the oral agent s cefaclor, cefdinir, cefpodoxime, Urine Culture, Routine Organism: Escherichia coli. : O:ESCHCO Isolated Organism: 1.1 Antibiotic Interpretation JENNYFER Status Urine Culture, Routine cefprozil, cefuro roxanen, cephalexin, and loracarbef when Urine Culture, Routine Organism: Escherichia coli. : O:ESCHCO Isolated Organism: 1.1 Antibiotic Interpretation JENNYFER Status Urine Culture, Routine used for therapy of uncomplicated urinary tract Urine Culture, Routine Organism: Escherichia coli. : O:ESCHCO Isolated Organism: 1.1 Antibiotic Interpretation JENNYFER Status Urine Culture, Routine infections due to E. coli, Klebsiella pneumoniae, and Urine Culture, Routine Organism: Escherichia coli. : O:ESCHCO Isolated Organism: 1.1 Antibiotic Interpretation JENNYFER Status Urine Culture, Routine Proteus mirabilis. Urine Culture, Routine Organism: Escherichia coli. : O:ESCHCO Isolated Organism: 1.1 Antibiotic Interpretation JENNYFER Status Urine Culture, Routine Greater than 100, 000 colony forming units per mL Urine Culture, Routine Organism: Escherichia coli. : O:ESCHCO Isolated Organism: 1.1 Antibiotic Interpretation JENNYFER Status Urine Culture, Routine See Below For Report Urine Culture, Routine Organism: Escherichia coli. : O:ESCHCO Isolated Organism: 1.1 Antibiotic Interpretation JENNYFER Status Urine Culture, [facility], Routine Organism: Escherichia coli. : O:ESCHCO Isolated Organism: 1.1 Antibiotic Interpretation JENNYFER Status Urine Culture, Routine [address] [place], [place] [id number] Urine Culture, Routine Organism: Escherichia coli. : O:ESCHCO Isolated Organism: 1.1 Antibiotic Interpretation JENNYFER Status Urine Culture, Routine Fish Salter: Kunal Dewey PhD, Phone: [phone] Urine Culture, Routine Organism: Escherichia coli. : O:ESCHCO Isolated Organism: 1.1 Antibiotic Interpretation JENNYFER Status Urine Culture, Routine See Below For Report Urine Culture, Routine Organism: Escherichia coli. : O:ESCHCO Isolated Organism: 1.1 Antibiotic Interpretation JENNYFER Status Urine Culture, Routine AMOXICILLIN/CLAVU LANIC ACID S F Urine Culture, Routine Organism: Escherichia coli. : O:ESCHCO Isolated Organism: 1.1 Antibiotic Interpretation JENNYFER Status Urine Culture, Routine Ampicillin S F Urine Culture, Routine Organism: Escherichia coli. : O:ESCHCO Isolated Organism: 1.1 Antibiotic Interpretation JENNYFER Status Urine Culture, Routine Cefepime S F Urine Culture, Routine Organism: Escherichia coli. : O:ESCHCO Isolated Organism: 1.1 Antibiotic Interpretation JENNYFER Status Urine Culture, Routine Ceftriaxone S F Urine Culture, Routine Organism: Escherichia coli. : O:ESCHCO Isolated Organism: 1.1 Antibiotic Interpretation JENNYFER Status Urine Culture, Routine Cefuroxime S F Urine Culture, Routine Organism: Escherichia coli. : O:ESCHCO Isolated Organism: 1.1 Antibiotic Interpretation JENNYFER Status Urine Culture, Routine Ciprofloxacin S F Urine Culture, Routine Organism: Escherichia coli. : O:ESCHCO Isolated Organism: 1.1 Antibiotic Interpretation JENNYFER Status Urine Culture, Routine Ertapenem S F Urine Culture, Routine Organism: Escherichia coli. : O:ESCHCO Isolated Organism: 1.1 Antibiotic Interpretation JENNYFER Status Urine Culture, Routine Gentamicin S F Urine Culture, Routine Organism: Escherichia coli. : O:ESCHCO Isolated Organism: 1.1 Antibiotic Interpretation JENNYFER Status Urine Culture, Routine Imipenem S F Urine Culture, Routine Organism: Escherichia coli. : O:ESCHCO Isolated Organism: 1.1 Antibiotic Interpretation JENNYFER Status Urine Culture, Routine Levofloxacin S F Urine Culture, Routine Organism: Escherichia coli. : O:ESCHCO Isolated Organism: 1.1 Antibiotic Interpretation JENNYFER Status Urine Culture, Routine Meropenem S F Urine Culture, Routine Organism: Escherichia coli. : O:ESCHCO Isolated Organism: 1.1 Antibiotic Interpretation JENNYFER Status Urine Culture, Routine Nitrofurantoin S F Urine Culture, Routine Organism: Escherichia coli. : O:ESCHCO Isolated Organism: 1.1 Antibiotic Interpretation JENNYFER Status Urine Culture, Routine Tetracycline S F Urine Culture, Routine Organism: Escherichia coli. : O:ESCHCO Isolated Organism: 1.1 Antibiotic Interpretation JENNYFER Status Urine Culture, Routine Tobramycin S F Urine Culture, Routine Organism: Escherichia coli. : O:ESCHCO Isolated Organism: 1.1 Antibiotic Interpretation JENNYFER Status Urine Culture, Routine Trimethoprim/Sulf amethoxa zole S F Urine Culture, Routine Organism: Escherichia coli. : O:ESCHCO Isolated Organism: 1.1 Antibiotic Interpretation JENNYFER Status Urine Culture, Routine Piperacillin/Tazo bactam S F Urine Culture, Routine Organism: Escherichia coli. 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 legend CT abdomen pelvis wo con Reviewed date:12/16/2024 04:14:13 PM Interpretation: Performing Lab: Notes/Report: Source Facility: [facility] [place] [address] CT Scan Report Signed Patient: HARMAN LE MR#: [id number] : 1960 Acct:[id number] Age/Sex: 64 / M ADM Date: 12/14/24 Loc: CT Attending Dr: Nirmala SYED Ordering Physician: Nirmala Lake Date of Service: 12/14/24 Procedure(s): CT abdomen pelvis wo/w con Accession Number(s): [id number] cc: JESSICA MURPHY [place] [address] Patient Name: HARMAN LE MRN: [id number] date: 1960 Sex: M Assigned Patient Location: CT Current Patient Location: CT Accession/Order Number: [id number] Exam Date: 12/14/2024 13:23 Report Date: 12/14/2024 13:35 At the request of: NIRMALA SYED Procedure: CT abdomen pelvis wo/w con CT Abdomen and Pelvis with and withoutcontrast TECHNIQUE: Axial imaging with 2-D reconstruction.100 cc of Visipaque 270. The CT exam was performed using one or more the following dose reduction techniques: Automated exposure control, adjustment of the MA and/or Kv according to patient size, or use of the iterative reconstruction technique. COMPARISON: None History: Gross hematuria for one year. Prostatomegaly. LIMITATIONS: None LOWER THORAX Unremarkable LIVER: Unremarkable GALLBLADDER: No gallbladder abnormality identified. BILE DUCTS: No dilatation SPLEEN: Unremarkable PANCREAS: Unremarkable ADRENAL GLANDS: Unremarkable KIDNEYS:6.9 x 6.3 x 6.0 cm heterogeneous solid mass mid to inferior pole left kidney. Extension into the renal pelvis. Bilateral renal cysts. Largest on the right measuring up to 6.2 cm. Punctate left nephrolithiasis. No hydronephrosis or hydroureter. AORTA: No abdominal aortic aneurysm identified. RETROPERITONEUM: There are mildly prominent periaortic lymph nodes. Largest is a short axis dimension up to 13 mm. MESENTERY:Unremarkable SMALL BOWEL: The small bowel loops are nondistended. APPENDIX: The appendix is normal. COLON: Moderate constipation URINARY BLADDER: Urinary bladder is unremarkable. REPRODUCTIVE SYSTEM: Reproductive structures are unremarkable. PNEUMOPERITONEUM: None PERITONEAL FLUID:None BONY STRUCTURES: Degenerative change. No bony lesion. ABDOMINAL WALL: Unremarkable CT/CT abdomen pelvis wo/w con IMPRESSION: 6.9 cm heterogeneous solid mass in the mid and inferior pole of the left kidney. A concern for malignancy. Urologic consultation recommended. Left the periaortic lymphadenopathy with maximal short axis dimension of 13 mm. Metastasis needs to be excluded. No distant metastasis identified. May consider PET/CT imaging. Moderate constipation. Bilateral renal cysts. Impression dictated by: Dedrick Marshall M.D.12/14/2024 1:35 PM Dictation Location: [place] [address] Electronically authenticated by: [id number] Y Date: 12/14/2024 13:35 Dictated By: Dedrick Marshall D.O. Signed By: 12/14/241336 DD/ 34 TD/TT: Hydrotechnical Specialist: [place] [address] CT Scan Report Signed Patient: HARMAN LE MR#: [id number] : 1960 Acct:[id number] Age/Sex: 64 / M ADM Date: 12/14/24 Loc: CT Attending Dr: Claudette SYED Ordering Physician: Nirmala Lake Date of Service: 12/14/24 Procedure(s): CT abd omen pelvis wo/w con Accession Number(s): [id number] cc: JESSICA MURPHY [place] [id number] Patient Name: HARMAN LE MRN: [id number] date: 1960 Sex: M Assigned Patient Location: CT Current Patient Loca tion: CT Accession/Order Numb er: [id number] Exam Date: 12/14/2024 13:23 Report Date: 12/14/2024 13:35 At the request of: NIRMALA SYED Procedure: CT abdome n pelvis wo/w con CT Abdomen and Pelvi s with and withoutcontrast TECHNIQUE: Axial helen ging with 2-D reconstruction.100 cc of Visipaque 270. The CT exam was performe d using one or more the following dose reduction techniques: Automate d exposure control, adjustment of the MA and/or Kv according to patient size, or use of the iterative reconstruction technique. COMPARISON: None History: Gross hemat uria for one year. Prostatomegaly. LIMITATIONS: None LOWER THORAX Unremarkable LIVER: Unremarkable GALLBLADDER: No gallbladder abnormality identified. BILE DUCTS: No dilatation SPLEEN: Unremarkable PANCREAS: Unremarkable ADRENAL GLANDS: Unremarkable KIDNEYS:6.9 x 6.3 x 6.0 cm heterogeneous solid mass mid to inferior pole left kidney. Extension in to the renal pelvis. Bilateral renal cysts. Largest on the right measuring up to 6.2 cm. Punctate left nephrolithiasis. No hydronephrosis or hydroureter. AORTA: No abdominal aortic aneurysm identified. RETROPERITONEUM: The re are mildly prominent periaortic lymph nodes. Largest is a short axis dime nsion up to 13 mm. MESENTERY:Unremarkable SMALL BOWEL: The sma ll bowel loops are nondistended. APPENDIX: The append ix is normal. COLON: Moderate constipation URINARY BLADDER: Uri nary bladder is unremarkable. REPRODUCTIVE SYSTEM: Reproductive structures are unremarkable. PNEUMOPERITONEUM: None PERITONEAL FLUID:None BONY STRUCTURES: Degenerative change. No bony lesion. ABDOMINAL WALL: Unremarkable C T/CT abdomen pelvis wo/w con IMPRESSION: 6.9 cm heterogeneous solid mass in the mid and inferior pole of the left kidney. A concern for malignancy. Urologic consultation recommended. Left th e periaortic lymphadenopathy with maximal short axis dimension of 13 mm. Metastasis needs to be excluded. No distant metastasis identified. May cons ider PET/CT imaging. Moderate constipation. Bilateral renal cysts. Impression dictated by: Dedrick Marshall M.D.12/14/2024 1:35 PM Dictation Location: [place] [address] Electronically authenticated by: [id number] Y Date: 12/14/2024 13:35 Dictated By: Dao Marshall D.O. Signed By: 12/14/241336 DD/ 34 TD/TT: Hydrotechnical Specialist: CBC AUTO DIFF Reviewed date:03/11/2025 09:50:30 AM Interpretation: Performing Lab: Notes/Report: [facility] , White Blood Count 12.9 4.0-11.0 10 3/uL Red Blood Count 4.33 4.70-6.10 10 6/uL Hemoglobin 10.7 14.0-18.0 g/dL Hematocrit 34.0 42.0-54.0 % Mean Corpuscular Volume 78.5 80.0-94.0 fL Mean Corpuscular Hemoglobin 24.7 25.9-34.0 pg Mean Corpuscular HGB Conc 31.5 29.9-35.2 g/dL Red Cell Distribution Width 16.7 11.0-15.0 % Platelet Count 384 150-450 10 3/uL Mean Platelet Volume 9.1 9.5-13.5 fL Neutrophils Percent Auto 76.3 43.0-75.0 % Lymphocytes Percent Auto 13.1 20.5-60.0 % Monocytes Percent Auto 6.5 1.7-12.0 % Eosinophils Percent Auto 1.2 0.9-7.0 % Basophils Percent Auto 0.6 0.2-2.0 % Immature Granulocytes Pct Auto 2.3 0.0-0.5 % Neutrophils Absolute Auto 9.8 1.4-6.5 10 3/uL Lymphocytes Absolute Auto 1.7 1.2-3.8 10 3/uL Monocytes Absolute Auto 0.8 0.3-0.8 10 3/uL Eosinophils Absolute Auto 0.2 0.0-0.7 10 3/uL Basophils Absolute Auto 0.1 0.0-0.1 10 3/uL Immature Granulocytes Abs Auto 0.30 0.00-0.03 10 3/uL Performing Lab: see note ML - [facility] LB PROF 14(COMP METB) Reviewed date:03/11/2025 09:50:30 AM Interpretation: Performing Lab: Notes/Report: [facility] , Sodium 136 136-145 mmol/L Potassium 5.3 3.5-5.1 mmol/L Chloride 99 98-107 mmol/L Carbon Dioxide 24.7 21.0-32.0 mmol/L Anion Gap 17.6 Glucose 166 74-106 mg/dL Blood Urea Nitrogen 37.0 7.0-18.0 mg/dL Creatinine 2.29 0.70-1.30 mg/dL Estimated GFR ( Yasmine 35 >=60 mL/min/1.73m 2 Estimated GFR (Non- Janis 29 >=60 mL/min/1.73m 2 BUN Creatinine Ratio 16.2 Calcium 9.2 8.5-10.1 mg/dL Bilirubin Total 0.2 0.2-1.0 mg/dL Aspartate Amino Transferase 15 15-37 U/L Alanine Aminotransferase 20 16-63 U/L Alkaline Phosphatase 84 46-116 U/L Total Protein 7.9 6.4-8.2 g/dL Albumin Level 2.8 3.4-5.0 g/dL Globulin 5.1 Albumin Globulin Ratio 0.5 Performing Lab: see note - [facility] LB PROF CHEM 8 (BAS METB) Reviewed date:03/11/2025 09:50:30 AM Interpretation: Performing Lab: Notes/Report: [facility] , Sodium 137 136-145 mmol/L Potassium 5.0 3.5-5.1 mmol/L Chloride 102 98-107 mmol/L Carbon Dioxide 23.5 21.0-32.0 mmol/L Anion Gap 16.5 Glucose 101 74-106 mg/dL Blood Urea Nitrogen 38.0 7.0-18.0 mg/dL Creatinine 2.14 0.70-1.30 mg/dL Estimated GFR ( Yasmine 38 >=60 mL/min/1.73m 2 Estimated GFR (Non- Janis 31 >=60 mL/min/1.73m 2 BUN Creatinine Ratio 17.8 Calcium 8.9 8.5-10.1 mg/dL Performing Lab: see note - [facility] LB ECG 12 lead Reviewed date:03/12/2025 09:58:55 AM Interpretation: Performing Lab: Notes/Report: Source Facility: [facility] [place] [address] Electrocardiograph Report Signed Patient: HARMAN LE MR#: [id number] : 1960 Acct:[id number] Age/Sex: 65 / M ADM Date: 03/11/25 Loc: ER Attending Dr: Ordering Physician: Brianne Kunz Date of Service: 03/11/25 Procedure(s): ECG 12 lead Accession Number(s): [id number] cc: [facility] Test Date: 2025-03-11 Pat Name: HARMAN LE Department: Room: - 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 Measurements Intervals Watkins Rate: 55 P: 42 WY: 134 QRS: 66 QRSD: 92 T: 57 QT: 416 QTc: 406 Interpretive Statements 1100 Sinus rhythm 9110 normal ECG No previous ECG available for comparison Electronically Signed On 03-11-2025 14:17:46 EDT by SUBHASH HERNANDEZ M.D. 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 Measurements Intervals [place] Rate: 55 P: 42 WY: 134 QRS: 66 QRSD: 92 T: 57 QT: 416 QTc: 406 Interpretive Statements 1100 Sinus rhythm 9110 normal ECG No previous ECG avai lable for comparison Electronically Urszula d On 03-11-2025 14:17:46 EDT by SUBHASH HERNANDEZ M.D. Dictated By: SUBHASH HERNANDEZ Signed By: 03/11/251417 DD/ 7 TD/TT: Hydrotechnical Specialist: DALILA Perry or MICROSCOPIC Reviewed date:10/10/2024 04:48:34 PM Interpretation: Performing Lab: Notes/Report: [facility] , Color Urine LT. YELLOW YELLOW Clarity Urine CLEAR CLEAR Specific [place] Urine 1.020 1.005-1.025 pH Urine 6.0 5.0-9.0 Protein Urine NEGATIVE NEG/TRACE mg/dL Glucose Urine UA NEGATIVE NEGATIVE mg/dL Bilirubin Urine NEGATIVE NEGATIVE Ketones Urine NEGATIVE NEGATIVE mg/dL Blood Urine SMALL NEGATIVE Nitrite Urine NEGATIVE NEGATIVE Urobilinogen Urine 0.2 0.2-1.0 EU/dL Leukocyte Esterase Urine NEGATIVE NEGATIVE WBC Urine 0-2 NONE SEEN #/HPF RBC Urine 2-5 0-2 #/HPF Bacteria Urine TRACE NONE SEEN #/HPF Mucus Urine NONE SEEN NONE SEEN Squamous Epithelial Cell Urine FEW NONE/RARE #/LPF Crystals Seen? None Seen None Seen #/HPF Cast Seen? NONE SEEN NONE SEEN #/LPF Performing Lab: see note [facility] CREATININE Reviewed date:12/16/2024 04:07:05 PM Interpretation: Performing Lab: Notes/Report: [facility] , Creatinine 1.53 0.70-1.30 mg/dL Estimated GFR ( Yasmine 56 >=60 mL/min/1.73m 2 Estimated GFR (Non- Janis 46 >=60 mL/min/1.73m 2 Performing Lab: see note - [facility] LB Box Test Reviewed date:10/10/2024 03:21:54 PM Interpretation: Performing Lab: Notes/Report: URINE CULTURE [facility] , BOX Test Sent Out URINE CULTURE BOX Test Reference Lab [facility] BOX Test Date Sent 10/08/24 BOX Test Result SEE SCANNED REPORT Performing Lab: see note - [facility] Reason For Referral Diagnosis 1 Hematuria (R31.9) Referral Organization [facility] Referring Provider First Name Jessica Referring Provider Last Name Katherine Referring Provider Speciality [facility] stacy Referred Provider Nikolai Rust Referred Provider Specialty Urology Referral Priority Routine Medications Medication SIG (Take, Route, Frequency, Duration) Notes Start Date End Date Status Metoprolol Tartrate 100 MG TAKE 1 TABLET BY MOUTH TWICE DAILY for 90 Active Allopurinol 300 MG TAKE 2 TABLETS BY MO UT EVERY DAY for 90 days Active Spironolactone 25 MG 1 tablet Oral BID f or 90 days Active Dutasteride 03/03/2025 Active metFORMIN HCl 1000 MG TAKE 1/2 TABLET BY MOUTH TWICE DAILY for 90 days Active Cipro 500 MG 1 tablet Orally ever y 12 hrs for 10 days 09/20/2024 Active PROzac 10 MG 1 capsule Orally Onc e a day for 30 days 09/20/2024 Active Social History Tobacco Use: Social History Observation Description Date Details (start date - stop date) Never Smoker NA - NA Tobacco Use/Smoking Question Answer Notes Patient is a nonsmoker Alcohol Screen (Audit-C) Question Answer Notes Did you have a drink containing alcohol in the p ast year? No Points 0 Interpretation Negative Problems Problem Type SNOMED Code ICD Code Onset Dates Problem Status W/U Status Risk Notes Problem Hypertension (58898804) HTN (hypertension) (I10) Active confirmed Problem Gout (43978321) Gout (M10.9) Active confirmed Problem Hematuria (43260116) Hematuria (R31.9) Active confirmed Problem Disorder of kidney and/or ureter (646844324) Left kidney mass (N28.89) Active confirmed Problem Type II diabetes mellitus without complication (136583052) Diabetes (E11.9) Active confirmed Vital Signs Blood pressure diastolic 76 mm Hg 03/04/2025 Height 71 in 03/04/2025 Blood pressure systolic 132 mm Hg 03/04/2025 Weight 264 lbs 09/20/2024 BMI 36.82 kg/m2 09/20/2024 Encounters Encounter Location Date Provider Diagnosis [facility] [address] [place] [address] 09/23/2024 Jessica Murphy [facility] [address] [place] [address] 09/23/2024 Jessica Murphy [facility] [address] [place] [address] 03/04/2025 Jessica Murphy [facility] [address] [place] [address] 09/23/2024 Jessica Murphy [facility] [address] [place] [address] 10/07/2024 Jessica Murphy UTI (urinary tract infection) N39.0 [facility] [address] [place] [address] 10/10/2024 Jessica Murphy [facility] [address] [place] [address] 10/10/2024 Jessica Murphy Hematuria R31.9 [facility] [address] [place] [address] 11/29/2024 Jessica Murphy [facility] [address] [place] [address] 03/03/2025 Jessica Murphy HTN (hypertension) I10 [facility] [address] [place] [address] 03/04/2025 Jessica Murphy [facility] [address] [place] [address] 09/20/2024 Jessica Murphy Blood in urine R31.9 ; Wellness examination Z00.00 ; Depression F32.A ; HTN (hypertension) I10 ; Diabetes E11.9 and Gout M10.9 Assessments Encounter Date Diagnosis (ICD Code) Assessment Notes Treatment Notes Treatment Clinical Notes Section Notes 09/20/2024 Blood in urine (ICD-10 - R31.9) us K and B? 09/20/2024 Wellness examination (ICD-10 - Z00.00) ROS done exam done send labs elsewhere? did not do cologuard last year no repeat CMP check KF? 10/07/2024 UTI (urinary tract infection) (ICD-10 - N39.0) 10/10/2024 Hematuria (ICD-10 - R31.9) 03/03/2025 HTN (hypertension) (ICD-10 - I10) 09/20/2024 Depression (ICD-10 - F32.A) restart fu one month 09/20/2024 HTN (hypertension) (ICD-10 - I10) 09/20/2024 Diabetes (ICD-10 - E11.9) 09/20/2024 Gout (ICD-10 - M10.9) Plan Of Treatment Pending Test Test Name Order Date CMP (COMPLETE METABOLIC PANEL) 3 CMP (COMPLETE METABOLIC PANEL) 4 UA (URINALYSIS, COMPLETE) 09/20/2024 UA (URINALYSIS, COMPLETE) 10/07/2024 HEMOGLOBIN A1C (GLYCO) 09/27/2023 HEMOGLOBIN A1C (GLYCO) 09/20/2024 INSULIN, TOTAL 09/20/2024 INSULIN, TOTAL 09/27/2023 LIPID PANEL (CHOL/TRIG/HDL/LDL) 09/20/20 24 LIPID PANEL (CHOL/TRIG/HDL/LDL) 09/27/20 23 CBC WITH DIFF 09/27/2023 CBC WITH DIFF 09/20/2024 PSA, PROSTATE-SPECIFIC ANTIGEN 3 URIC ACID 09/27/2023 URIC ACID 09/20/2024 Urine Culture 09/20/2024 Urine Culture 10/07/2024 UA (Urinalysis, Dipstix only - w/o micro ) 09/20/2024 PSA, TOTAL 09/20/2024 STOOL OCCULT BLOOD 09/20/2024 GLYCOHEMOGLOBIN A1C 01/29/2024 URINE MICROSCOPIC ONLY 10/07/2024 THYROID PANEL (T4/TSH/FREE T3) 4 Insurance Providers Payer Name Payer Address Payer Phone Subscriber Number Group Number Insured Name Patient Relationship to Insured Coverage Start Date Coverage End Date [employer] [address] [address] [place] [phone] [id number] Harman Le Self - patient is the insured Medical (General) History Surgical History Surgery Date(Month/Year) Cyst Removal Teeth Extraction
--- OUTSIDE RECORDS SUMMARY | 2025-03-15 10:21 | XMS_ITS | Encounter Summary ---
Author Organization [facility] Address [facility] [place] [address] Care Team Providers Care Contour Band Saw Operator Vertical Name Role Phone KatherineJessica Leyla ADAME Primary Care Provider + Source Comments In the event this information is protected by the Federal Confidentiality of Alcohol and Drug AbusePatient Records regulations: The Federal rules restrict any use of the information to criminally investigate or prosecute any alcohol or drug abuse patient.[facility] Encounter Details Date Type Department Care Team (Late st Contact Info) Description 03/11/2025 Telephone [facility] Provider Adult [address] [place], [place] [phone] Aurea Rodriguez MD [address] [place] [id number] Social History Tobacco Use Types Packs/Day [...] is lower risk 6 01/03/2025 Data from: https://www.neighborhoodatlas.[facility]/. Last address used for calculation [address] [facility] [facility] [address] 01/03/2025 Sex and Gender Information Value [...] encounter Miscellaneous Notes * Telephone Encounter - Aurea Rodriguez MD - 03/11/2025 6:09 AM EDT Spoke with patient this morning regarding critical [...] understands and agrees to plan. He plans togo to ED closer to home as [place] is almost an hour away. All questions answered. Patient inquiring about his pathology results, will follow up with Dr. Arvizu. Aurea Rodriguez MD Urology Resident PGY-1 Pager documented in this encounter Plan of Treatment Upcoming Encounters Date Type Department Care Team (Latest Contact Info) Description 03/18/2025 4:00 PM EDT Visit (SP) Office Hematology/Oncology [address] [place] [address] [place] [address] Ernesto Phoenix MD [address] [place] [address] [place] [address] renal cell carcinoma documented as of this encounter Visit Diagnoses Not on filedocumented in this encounter Care Teams Contour Band Saw Operator Vertical Relationship Specialty Start Date End Date Jessica Murphy CNP [address] [place] [address] PCP - General Internal Medicine 02/07/25 documented as of this encounter
--- OUTSIDE RECORDS SUMMARY | 2025-03-15 10:21 | XMS_ITS | Encounter Summary ---
Author Organization [facility] Address [address] [place] [address] Care Team Providers Care Computer Graphic Designer Name Role Phone Katherine Jessica Mayer CNP Primary Care Provider + Source Comments In the event this information is protected by the Federal Confidentiality of Alcohol and Drug AbusePatient Records regulations: The Federal rules restrict any use of the information to criminally investigate or prosecute any alcohol or drug abuse patient.[facility] Encounter Details Date Type Department Care Team (Late st Contact Info) Description 03/11/2025 Telephone [facility] Provider Adult [id number] [phone] Tamanna Zhu APRN.PRODUCTION ENGINEER [address] [phone] Social History Tobacco Use Types Packs/Day Years [...] is lower risk 6 01/03/2025 Data from: https://www.neighborhoodatlas.[facility]/. Last address used for calculation [address] 01/03/2025 Sex and Gender Information Value [...] Trent Adler RN documented in this encounter Patient Instructions * Patient Instructions* Tamanna Zhu APRN.PRODUCTION ENGINEER - 03/11/2025 9:31 AM EDT Spoke with Mr. Stokes this morning regarding hyperkalemia on recent labs, [...] labs obtained today. documented in this encounter Plan of Treatment Upcoming Encounters Date Type Department Care Team (Latest Contact Info) Description 03/18/2025 4:00 PM EDT Visit (SP) Office Hematology/Oncology [address] [place] [address] Ernesto Phoenix MD [address] [place] [address] renal cell carcinoma documented as of this encounter Visit Diagnoses Not on filedocumented in this encounter Care Teams Computer Graphic Designer Relationship Specialty Start Date End Date Jessica Murphy CNP [address] [place] [address] PCP - General Internal Medicine 02/07/25 documented as of this encounter
--- OUTSIDE RECORDS SUMMARY | 2025-03-15 10:21 | XMS_ITS | Encounter Summary ---
Author Organization [facility] Address [address] [place] [address] Care Team Providers Care Green Meat Grader Name Role Phone KatherineSuzanneJessicahank Mayer CNP Primary Care Provider + Source Comments In the event this information is protected by the Federal Confidentiality of Alcohol and Drug AbusePatient Records regulations: The Federal rules restrict any use of the information to criminally investigate or prosecute any alcohol or drug abuse patient.[facility] Encounter Details Date Type Department Care Team ([facility] Contact Info) Description 01/29/2025 Results Follow-Up Urology [address] [place] [phone] [place] [address] [place] [address] Social History Tobacco Use Types Packs/Day Years Used Date Smoking Tobacco: Never Assessed Area Deprivation Index Answer Date Roland rded National Score (1-100), lower number is lower ri sk 78 01/03/2025 State Score (1-10), lower number is lower risk 6 01/03/2025 Data from: https://www.neighborhoodatlas.medicine.[facility].edu/. Last address used for calculation [address] [place] [address] 01/03/2025 Sex and Gender Information Value Date [...] 4:00 PM EDT Visit (SP) Office Hematology/Oncology [address] [place] [address] [place] [address] Ernesto Phoenix MD [address] [facility] [address] [facility] [place] [address] renal cell carcinoma documented as of this encounter Visit Diagnoses Not on filedocumented in this encounter Care Teams Green Meat Grader Relationship Specialty Start Date End Date Jessica Murphy, ORDER ENTRY REPRESENTATIVE [address] [place] [address] PCP - General Internal Medicine 02/07/25 documented as of this encounter
--- OUTSIDE RECORDS SUMMARY | 2025-03-15 10:21 | XMS_ITS | Encounter Summary ---
Author Organization [facility] Address [address] [id number] Care Team Providers Care Disintegrator Feeder Name Role Phone Jessica Murphy CNP Primary Care Provider + Source Comments In the event this information is protected by the Federal Confidentiality of Alcohol and Drug AbusePatient Records regulations: The Federal rules restrict any use of the information to criminally investigate or prosecute any alcohol or drug abuse patient.[facility] Encounter Details Date Type Department Care Team (Late st Contact Info) Description 03/10/2025 Orders [address] [facility] [id number] [phone] Tamanna Zhu, [facility] [address] [place] [address] Hyperkalemia (Primary Dx) Social History Tobacco Use Types Packs/Day Years [...] is lower risk 6 01/03/2025 Data from: https://www.neighborhoodatlas.[facility]/. Last address used for calculation [address] 01/03/2025 Sex and Gender Information Value [...] 4:00 PM EDT Visit (SP) Office Hematology/Oncology [address] [place] [address] [place] [address] Ernesto Phoenix MD [address] [place] [address] [place] [address] renal cell carcinoma documented as of this encounter Results * (ABNORMAL) RENAL FUNCTION PANEL (03/10/2025 2:38 PM EDT) Albumin 3.9 3.9 - 4.9 g/dL 03/11/2025 3:52 AM EDT [facility] Calcium, Total 9.8 8.5 - 10.2 mg/dL 03/11/2025 3:52 AM T [facility] Phosphorus 3.7 2.7 - 4.8 mg/dL 03/11/2025 3:52 AM EDT [facility] Glucose 94 74 - 99 mg/dL 03/11/2025 3:52 AM [facility] Comment: The [place] Diabetes Association (ADA) provides guidance for cutoff [...] Standards of Medical Care in Diabetes 2016, [place] Diabetes Association. Diabetes Care. 2016.39(Suppl 1). BUN 31(H) 9 - 24 mg/dL 03/11/2025 3:52 AM [facility] Creatinine 2.16(H) 0.73 - 1.22 mg/dL 03/11/2025 3:52 AM T [facility] Sodium 134(L) 136 - 144 mmol/L 03/11/2025 3:52 AM [facility] Potassium 6.2(HH) 3.7 - 5.1 mmol/L 03/11/2025 3:52 AM [facility] Chloride 100 98 - 107 mmol/L 03/11/2025 3:52 AM [facility] CO2 19(L) 22 - 30 mmol/L 03/11/2025 3:52 AM T [facility] Anion Gap 15 8 - 15 mmol/L 03/11/2025 3:52 AM EDT [facility] Estimated Glomerular Filtration Rate 33(L) >=60 mL/min/1. 73m 03/11/2025 3:52 AM EDT [facility] Comment:Estimated Glomerular Filtration Rate (eGFR) is [...] PM EDT 03/10/2025 2:39 PM EDT us Taamnna Zhu APRN.ANIMAL SCIENTIST LABORATORY Final Resul t [facility] [address] [place] [address], documented in this encounter Visit Diagnoses Diagnosis Hyperkalemia- Primary Hyperpotassemia documented in this encounter Care Teams Disintegrator Feeder Relationship Specialty Start Date End Date Jessica Murphy CNP [address] [place] [address] PCP - General Internal Medicine 02/07/25 documented as of this encounter
--- OUTSIDE RECORDS SUMMARY | 2025-03-15 10:21 | XMS_ITS | Encounter Summary ---
Author Organization [facility] Address [facility] [place] [address] Care Team Providers Care Data Modeling Architect Name Role Phone KatherineJessica Leyla ADAME Primary Care Provider + Source Comments In the event this information is protected by the Federal Confidentiality of Alcohol and Drug AbusePatient Records regulations: The Federal rules restrict any use of the information to criminally investigate or prosecute any alcohol or drug abuse patient.[facility] Reason for Visit * Reason Comments Patient Question Encounter Details Date Type Department Care Team (Late st Contact Info) Description 03/05/2025 Telephone Urology [address] [place] [address] Rivera Arvizu MD [address] [place] [address] Patient Question Social History Tobacco Use Types Packs/Day Years [...] is lower risk 6 01/03/2025 Data from: https://www.neighborhoodatlas.[facility]/. Last address used for calculation [address] 01/03/2025 Sex and Gender Information Value [...] encounter Miscellaneous Notes * Telephone Encounter - Angela Luis - 03/05/2025 1:49 PM EDT Patient needs the provider to complete FMLA paperwork for his medical leave. Patient gave provider the paperwork at his office visit on 01/03/25. Please advise documented in this encounter Plan of Treatment Upcoming Encounters Date Type Department Care Team (Latest Contact Info) Description 03/18/2025 4:00 PM EDT Visit (SP) Office Hematology/Oncology [address] [place] [place] [address] Ernesto Phoenix MD [address] [place] [address] [place] [address] renal cell carcinoma documented as of this encounter Visit Diagnoses Not on filedocumented in this encounter Care Teams Data Modeling Architect Relationship Specialty Start Date End Date Jessica Murphy CNP [address] [place] [address] PCP - General Internal Medicine 02/07/25 documented as of this encounter
--- OUTSIDE RECORDS SUMMARY | 2025-03-15 10:21 | XMS_ITS | Encounter Summary ---
Author Organization [facility] Address [address] [place] [address] Care Team Providers Care Automobile Radiator Mechanic Name Role Phone Jessica Murphy CNP Primary Care Provider + Source Comments In the event this information is protected by the Federal Confidentiality of Alcohol and Drug AbusePatient Records regulations: The Federal rules restrict any use of the information to criminally investigate or prosecute any alcohol or drug abuse patient.[facility] Encounter Details Date Type Department Care Team (Latest Contact Info) Description 03/10/2025 Travel Social History Tobacco Use Types Packs/Day Years [...] is lower risk 6 01/03/2025 Data from: https://www.neighborhoodatlas.medicine.[facility].edu/. Last address used for calculation [address] [place] [address] 01/03/2025 Sex and Gender Information Value Date [...] 4:00 PM EDT Visit (SP) Office Hematology/Oncology [address] [place] [address] [place] [address] Ernesto Phoenix MD [address] [place] [place] [address] renal cell carcinoma documented as of this encounter Visit Diagnoses Not on filedocumented in this encounter Care Teams Automobile Radiator Mechanic Relationship Specialty Start Date End Date Jessica Murphy CNP [address] [place] [address] PCP - General Internal Medicine 02/07/25 documented as of this encounter
[2025-03-15 11:00] LABS: Estimated GFR (African America 38 (>=60 mL/min/1.73m^2); Estimated GFR (Non-African Ame 31 (>=60 mL/min/1.73m^2); Potassium 5.6 mmol/L (3.5-5.1)
== END 2025-03-15 10:17 | disposition home or self-care (01) ==
PROVIDERS: PCP Nurse Practitioner Family; Visit Provider Urology
DX: C64.9 Malignant neoplasm of unspecified kidney, except renal pelvis (principal)
CPT/HCPCS: 36415; 82565; 84132; 84520

== ENCOUNTER 2025-03-24 14:38 | Outpatient (OUT) | payer OTHER, SELFPAY ==
--- OUTSIDE RECORDS SUMMARY | 2025-03-03 10:05 | XMS_ITS ---
Author Organization The [facility] in [place] Address [address] [place] [address] Care Team Providers Care Conference Assistant Name Role Phone Jessica Murphy Primary Care Provider REASON FOR VISIT update from urology Medications Medication SIG (Take, Route, Frequency, Duration) Notes Start Date End Date Status Dutasteride 03/03/2025 Active Encounters Encounter Location Date Provider Diagnosis [facility] [address] [place] [address] 03/03/2025 Jessica Murphy HTN (hypertension) I10 Assessments Encounter Date Diagnosis (ICD Code) Assessment Notes Treatment Notes Treatment Clinical Notes Section Notes 03/03/2025 HTN (hypertension) (ICD-10 - I10) Plan Of Treatment Medication Medication Name Sig Start Date Stop Date Notes Dutasteride 03/03/2025 Lisinopril-hydroCHLOROthiazi de 20-12.5 MG TAKE 1 TABLET BY MOUTH DAILY Progress Notes * Skyler LE DDOB:1960 (65 yo M)Acc No.[id number]:03/03/2025 Patient: Mary Skyler BANUELOS :1960 A ge:65 Y S ex:Male Address:[address] [place] [phone] * Refills Stop Lisinopril-hydroCHLOROthiazide Tablet, 20-12.5 MG, TAKE 1 TABLET BY MOUTH DAILY Start Dutasteride * true * Date: Generated for Printi ng/Faxing/eTransmitting on: 0 03/24/2025 02:43 PM EDT
--- OUTSIDE RECORDS SUMMARY | 2025-03-18 16:00 | XMS_ITS | Encounter Summary ---
Author Organization [facility] Address [address] [place], [place] [id number] Care Team Providers Care Gang Mower Operator Name Role Phone Jessica Murphy CNP Primary Care Provider + Source Comments In the event this information is protected by the Federal Confidentiality of Alcohol and Drug AbusePatient Records regulations: The Federal rules restrict any use of the information to criminally investigate or prosecute any alcohol or drug abuse patient.[facility] Reason for Referral * Consult, Test, Treat (Routine) - Authorized Specialty Diagnoses / Procedures Referred By Cassandra mccauley Referred To Contact Nephrology Diagnoses Renal cell carcinoma of left kidney (HCC) Procedures CONSULT TO NEPHROLOGY OFFICE/OUTPATIENT [facility] 60 MINUTES Ernesto Phoenix MD [address] [place] [address] [place] [address] Phone: tel: fax: Referral ID Status Reason Start Date Expiration Date Visits Requested Visits Authorized [id number] Authorized PCP Requested Referral 04/01/2025 03/18/2026 1 1 * MRI/CT (Routine) - New Request Specialty Diagnoses / Procedures Referred By Contac t Referred To Contact MR IMAGING Diagnoses Renal cell carcinoma of left kidney (HCC) Procedures MRI BRAIN WO IVCON MRI BRAIN BRAIN STEM W/O CONTRAST MATERIAL Ernesto Phoenix MD [address] [place] [address] Phone: tel: fax: [place] [address] Referral ID Status Reason Start Date Expiration Date Visits Requested Visits Authorized [id number] New Request Auto-Generat ed Referral 04/01/2025 04/17/2026 1 1 * Diagnostic Procedure Only (Routine) - Authorized Specialty Diagnoses / Procedures Referred By [facility] Referred To Contact MOLECULAR & FUNCTIONAL IMAGING Diagnoses Renal cell carcinoma of left kidney (HCC) Procedures NM PET/CT SKULL-THIGH INITIAL PET IMAGING CT ATTENUATION SKULL BASE MID-THIGH Ernesto Phoenix MD [address] [place] [address] [place] [address] Phone: tel: fax: Molecular Imaging [address] [place] [address] Phone: tel: Referral ID Status Reason Start Date Expiration Date Visits Requested Visits Authorized [id number] Authorized Auto-Generat ed Referral 04/01/2025 04/17/2026 1 1 Reason for Visit * Reason Comments Renal Cell Cancer Consult * Consult, Test, Treat (Routine) - Closed Specialty Diagnoses / Procedures Referred By [facility] Referred To Contact Hematology/Oncology / HEMATOLOGY/ONCOLOGY Diagnoses Renal cell carcinoma (HCC) renal cell carcinoma ref [facility] Rivera Celaya MD Procedures OFFICE/OUTPATIENT NEW MODERATE MDM 45 MINUTES [place] [address] [place] [address] Phone: tel: Ernesto Phoenix MD [address] [place] [address] Phone: tel: fax: Referral ID Status Reason Start Date Expiration Date Visits Re quested Visits Authorized [id number] Closed 03/17/2025 10/01/2025 1 1 Encounter Details Date Type Department Care Team (Latest Contact Info) Description 03/18/2025 4:00 PM EDT Visit (SP) Office Hematology/Oncology [address] [place] [address] [place] [address] Ernesto Phoenix MD [address] [place] [address] Renal cell carcinoma of left kidney (HCC) (Primary Dx) Social History Tobacco Use Types [...] is lower risk 6 01/03/2025 Data from: https://www.neighborhoodatlas.[facility].edu/. Last address used for calculation [address] [facility] 01/03/2025 Sex and Gender Information Value Date Recorded Sex Assigned at Male 03/02/2025 11:28 PM EDT Legal Sex Male 8:56 AM EDT Gender Identity Male 03/02/2025 11:28 PM EDT Sexual Orientation Straight 03/02/2025 11 :28 PM EDT documented as of this encounter Last Filed Vital Signs Vital Sign Reading Time Taken Comments Blood Pressure 144/74 03/18/2025 3:57 PM EDT Pulse 43 03/18/2025 3:57 PM EDT Temperature 36.1 C (97 F) 03/18/2025 3:57 PM EDT Respiratory Rate 16 03/18/2025 3:57 PM EDT Oxygen Saturation 100% 03/18/2025 3:57 PM EDT Inhaled Oxygen Concentration - - Weight 121.3 kg (267 lb 6.7 oz) 03/18/2025 3:57 PM EDT Height 182.9 cm (6' 0.01 ) 03/18/2025 3:57 PM ED T Body Mass Index 36.26 03/18/2025 3:57 PM EDT documented in this encounter Functional Status * Are you [...] this encounter Patient Instructions * Patient Instructions* Ernesto Phoenix MD - 03/18/2025 4:24 PM EDT Ordered PET scan and MRI brain Refer to nephrology Chemo teach for keytruda Schedule keytruda treatment in 2 weeks F/u in 2 weeks documented in this encounter Progress Notes * Ernesto Phoenix MD - 03/18/2025 4:00 PM EDT Images from the original note were not included. PATIENT NAME: Skyler Neil [facility] NO.: [id number] ATTENDING PHYSICIAN: Ernesto Phoenix MD DATE OF SERVICE: March Dear Dr. Rivera Arvizu [address] [facility] [address] thank you for referring Skyler Stokes for an opinion regarding Kidney cancer. CHIEF COMPLAINT: Kidney cancer HPI: Skyler Stokes is a 65 year old year old male with PMH of DM, HTN, BPH referred to us for RCC. Underwent left robotic radical nephrectomy and robotic retroperitoneal lymph node dissection on 02/27/25. Operative Findings: Enormous kidney and perinephric fat. Tumor may have enlarged in size. There wasa small hematoma subcapsular likely related to the recent biopsy. The size of the kidney increase the complexity of the case and added over 1 hour to the surgical time. Bulky suspicious perihilar lymph nodes were excised. Excellent hemostasis the conclusion the case. No other unusual findings. Doing well - Works in [employer] and [employer]. - No smoking - No alcohol. - No family h/o cancer. - No major complaints. Current Outpatient Medications Medication Sig docusate sodium (COLACE ORAL) Take by mouth. allopurinol (ZYLOPRIM) 300 mg tablet TAKE 2 TABLETS BY MOUTH EVERY DAY for 90 days acetaminophen (TYLENOL) 325 mg tablet Take 2 tablets by mouth every 6 hours as needed for pain. metoprolol tartrate, short acting, (LOPRESSOR) 100 mg tablet Take 100 mg by mouth two times a day. dutasteride (AVODART) 0.5 mg capsule Take 0.5 mg by mouth once daily. spironolactone (ALDACTONE) 25 mg tablet Take 25 mg by mouth two times a day. metFORMIN (GLUCOPHAGE) 1,000 mg tablet Take 500 mg by mouth two times a day. FLUoxetine (PROZAC) 10 mg capsule Take 10 mg by mouth once daily. No current facility-administered medications for this visit. ALLERGIES Allergen Reactions Flomax [Tamsulosin] Other: See Comments dizziness and back pain PAST MEDICAL HISTORY Diagnosis Date Depression Diabetes (HCC) Hypertension ROSA M on CPAP PAST SURGICAL HISTORY Procedure Laterality Date COLONOSCOPY SCREENING KIDNEY BIOPSY 01/24/2025 No family history on file. Social History Tobacco Use Smoking status: Never Smokeless tobacco: Never Substance Use Topics Alcohol use: Yes Comment: once a year, if that Drug use: Not Currently REVIEW OF SYSTEMS GENERAL: No weight loss, malaise or fevers. No night sweats. HEENT: Negative for headaches, No changes in hearing or vision, no nose bleeds or other nasal problems. RESPIRATORY: Negative for cough, wheezing and shortness of breath CARDIOVASCULAR: Negative for chest pain, leg swelling and palpitations GI: Negative for abdominal discomfort, blood in stools or black stools and change in bowel habits : Negative for dysuria, frequency and incontinence MUSCULOSKELETAL: Negative for joint pain or swelling, back pain, and muscle pain. SKIN: Negative for lesions, rash, and itching. HEMATOLOGY/LYMPHOLOGY Negative for prolonged bleeding, bruising easily, and swollen nodes. NEURO: Negative for numbness or tingling of hands/feet. No weakness. PHYSICAL EXAMINATION: There were no vitals taken for this visit. There were no vitals taken for this visit. Last 3 Encounter Wt Readings: Date: Wt: 02/07/2025 124.7 kg (275 lb) 01/03/2025 124.7 kg (275 lb) General appearance:ECOG PERFORMANCE STATUS: 0- Fully active, able to carry on all pre-disease performance w/o restriction. Patient in NAD. Skin: Skin color, texture, turgor normal. No rashes or lesions. Eyes: Anicteric sclera. Pupils are equally round and reactive to light. Extraocular movements are intact. Breast: No palpable breast masses. No nipple change or discharge. Lymph Nodes: No cervical, supraclavicular, axillary or inguinal adenopathy. Oropharynx: Lips, mucosa, and tongue normal. Back: No pain to percussion. Negative SLR test Lungs clear to auscultation, No wheezing or rhonchi Heart: RRR without murmur, gallop, or rubs. Abdomen soft, non-tender. No masses, organomegaly.Scar seen Extremities: No deformities. No edema Neuro: Gait and speech normal. Reflexes normal and symmetric. Muscular strength intact. Sensation grossly intact. Rectal: Deferred : Deferred LABS: Glucose (mg/dL) Date Value 03/10/2025 94 Potassium (mmol/L) Date Value 03/10/2025 6.2 Sodium (mmol/L) Date Value 03/10/2025 134 Chloride (mmol/L) Date Value 03/10/2025 100 CO2 (mmol/L) Date Value 03/10/2025 19 Creatinine (mg/dL) Date Value 03/10/2025 2.16 BUN (mg/dL) Date Value 03/10/2025 31 Anion Gap (mmol/L) Date Value 03/10/2025 15 Calcium, Total (mg/dL) Date Value 03/10/2025 9.8 Protein, Total (g/dL) Date Value 01/24/2025 7.6 Albumin (g/dL) Date Value 03/10/2025 3.9 Bilirubin, Total (mg/dL) Date Value 01/24/2025 0.4 Alkaline Phosphatase (U/L) Date Value 01/24/2025 66 AST (U/L) Date Value 01/24/2025 12 ALT (U/L) Date Value 01/24/2025 8 WBC Date Value Ref Range Status 02/28/2025 12.56 (H) 3.70 - 11.00 k/uL Final RBC Date Value Ref Range Status 02/28/2025 3.84 (L) 4.20 - 6.00 m/uL Final Hemoglobin Date Value Ref Range Status 02/28/2025 9.2 (L) 13.0 - 17.0 g/dL Final Hematocrit Date Value Ref Range Status 02/28/2025 30.1 (L) 39.0 - 51.0 % Final MCV Date Value Ref Range Status 02/28/2025 78.4 (L) 80.0 - 100.0 fL Final MCH Date Value Ref Range Status 02/28/2025 24.0 (L) 26.0 - 34.0 pg Final MCHC Date Value Ref Range Status 02/28/2025 30.6 30.5 - 36.0 g/dL Final RDW-CV Date Value Ref Range Status 02/28/2025 16.5 (H) 11.5 - 15.0 % Final Platelet Count Date Value Ref Range Status 02/28/2025 243 150 - 400 k/uL Final MPV Date Value Ref Range Status 02/28/2025 9.1 9.0 - 12.7 fL Final Abs Neut Date Value Ref Range Status 01/24/2025 10.14 (H) 1.45 - 7.50 k/uL Final Lymphocytes % Date Value Ref Range Status 01/24/2025 10.3 % Final Abs Lymph Date Value Ref Range Status 01/24/2025 1.32 1.00 - 4.00 k/uL Final Monocytes % Date Value Ref Range Status 01/24/2025 8.5 % Final Abs Flathead Date Value Ref Range Status 01/24/2025 1.09 (H) <0.87 k/uL Final Abs Eosin Date Value Ref Range Status 01/24/2025 0.09 <0.46 k/uL Final Basophils % Date Value Ref Range Status 01/24/2025 0.5 % Final Abs Baso Date Value Ref Range Status 01/24/2025 0.07 <0.11 k/uL Final PATH: SURGICAL PATHOLOGY: [id number] Order: [id number] Collected 02/27/2025 11:37 AM Status: Final result Dx: Neoplasm of uncertain behavior of lef... Test Result Released: Yes (seen) 0 Result Notes View Follow-Up Encounter Component Resulting Agency FINAL DIAGNOSIS A. Lymph nodes, para-aortic, regional [...] of benign adrenal gland. at 1356 EDT Diagnosis Comment CCM Immunohistochemical stains were performed (blocks B6 and [...] case and concurs with the tumor classification. Block for additional Biomarkers/Molecular studies CCM Lázaro metastasis: B16 Kidney primary: B6, B20 Synoptic Report KIDNEY: Nephrectomy 8th Edition - Protocol posted: 03/20/2024KIDNEY: RESECTION - All Specimens SPECIMEN Procedure Radical nephrectomy Specimen Laterality Left TUMOR Tumor Focality Unifocal Tumor Size Greatest Dimension (Centimeters): 8 cm Histologic Type Renal cell carcinoma, NOS Histologic Grade (WHO / ISUP) G4, extreme nuclear pleomorphism and / or multinucleated giant cells and / or rhabdoid and / or sarcomatoid differentiation: Sarcomatoid differentiation identified Tumor Extent Extends into perinephric tissue (beyond renal capsule) Extends into renal sinus Extends into pelvicalyceal system Histologic Features Sarcomatoid features present Percentage of Sarcomatoid Element 20 % Tumor Necrosis Present Percentage of Tumor Necrosis 20 % Lymphatic and / or Vascular Invasion Present MARGINS Margin Status All margins negative for invasive carcinoma REGIONAL LYMPH NODES Regional Lymph Node Status Tumor present in regional lymph node(s) Number of Lymph Nodes with Tumor 2 Lázaro Site(s) with Tumor Hilar Paraaortic Size of Largest Lázaro Metastatic Deposit 3.8 cm Extranodal Extension (NASEEM) Present Number of Lymph Nodes Examined 3 pTNM CLASSIFICATION (AJCC 8th Edition) Reporting of pT, pN, and (when applicable) pM categories is based on information available to the pathologist at the time the report is issued. As per the AJCC (Chapter 1, 8th Ed.) it is the managingphysician's responsibility to establish the final pathologic stage based upon all pertinent information, including but potentially not limited to this pathology report. pT Category pT3a pN Category pN1 ADDITIONAL FINDINGS Additional Findings in Kidney Papillary adenoma(s) Cortical cysts IMAGING: ASSESSMENT AND PLAN: Skyler Stokes is a 65 year old year old male referred to us for left renal cell carcinoma. H/o DM, HTN, BPH PLAN: 1. Renal cell carcinoma of left kidney (HCC) - ICD9: 189.0, ICD10: C64.2 - Underwent left robotic radical nephrectomy and robotic retroperitoneal lymph node dissection on 02/27/25. - Final pathology showed renal cell carcinoma sarcomatoid differentiation, grade 4, metastatic renal cell carcinoma in 2 out of 3 lymph nodes, pT3a pN1, stage III. - Ordered PET scan and MRI brain for complete staging - Will start him on adjuvant Keytruda. - Refer to nephrology for the CKD - All his questions answered in detail - Follow-up in [address] Rivera Arviuz [address] [facility] [address] thank you for allowing me to participate in Skyler Stokes [facility], if there areany questions or concerns please do not hesitate to contact me at the number below. I spent a total of 60 minutes on the date of the service which included preparing to see the patient, [id number] patient care, completing clinical documentation, obtaining and/or reviewing separately obtained history, performing a medically appropriate examination, counseling and educating the pat ient/family/caregiver, ordering medications, tests, or procedures, communicating with other HCPs (not separately reported), independently interpreting results (not separately reported), communicatingresults to the patient/family/caregiver, and care coordination (not separately reported). Ernesto Phoenix MD. Hematology/Medical Oncology [facility] [phone] CC: documented in this encounter Plan of Treatment Upcoming Encounters Date Type Department Care Team (Latest Contact Info) Description 04/01/2025 8:45 AM EDT Appointment Radiology Pet CT [address] [place] [address] [place] [address] Pet scan 04/01/2025 11:00 AM EDT Nurse Visit Hematology/Oncology [address] [place] [address] [place] [address] 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 RN [address] [place] [address] [place] [address] Chemo ed Keytruda 04/07/2025 1:15 PM EDT Office Visit [facility] [address] [place] [address] [place] [address] Follow up with lab chemotx Keytruda 04/07/2025 1:30 PM EDT Visit (SP) Office Hematology/Oncology [facility] [place] [address] Ernesto Phoenix MD [address] [place] [address] [place] [address] Follow up with lab chemotx Keytruda 04/07/2025 2:00 PM EDT [facility] Hematology/Oncology [address] [place] [address] Follow up with lab chemotx Keytruda Scheduled Orders Name Type Priority Associated Diagnoses Orde r Schedule NM PET/CT SKULL-THIGH INITIAL Radiology Routine Renal cell carcinoma of left kidney (HCC) Expected: 04/01/2025, Expires: 04/17/2026 MRI BRAIN WO IVCON Radiology Routine Renal cell carcinoma of left kidney (HCC) Expected: 04/01/2025 (Approximate), Expires: 04/17/2026 documented as of this encounter Visit Diagnoses Diagnosis Renal cell carcinoma of left kidney (HCC)- Primary documented in this encounter Care Teams Gang Mower Operator Relationship Specialty Start Date End Date Jessica Murphy MATERIAL LISTER [address] [place] [address] PCP - General Internal Medicine 02/07/25 documented as of this encounter
--- OUTSIDE RECORDS SUMMARY | 2025-03-24 14:42 | XMS_ITS | Encounter Summary ---
Author Organization [facility] Address [address] [place] [address] Care Team Providers Care Laundry Manager Name Role Phone Jessica Murphy CNP Primary Care Provider + Source Comments In the event this information is protected by the Federal Confidentiality of Alcohol and Drug AbusePatient Records regulations: The Federal rules restrict any use of the information to criminally investigate or prosecute any alcohol or drug abuse patient.[facility] Encounter Details Date Type Department Care Team (Late st Contact Info) Description 01/06/2025 Patient Msg Pre Anesthesia [address] [place] [address] Provider, [facility] Appointment Social History Tobacco Use Types Packs/Day Years Used Date Smoking Tobacco: Never Assessed Area Deprivation Index Answer Date Roland rded National Score (1-100), lower number is lower ri sk 78 01/03/2025 State Score (1-10), lower number is lower risk 6 01/03/2025 Data from: https://www.neighborhoodatlas.medicine.[facility].edu/. Last address used for calculation [address] [place] [address] 01/03/2025 Sex and Gender Information Value Date [...] 8:45 AM EDT Appointment Radiology Pet CT [address] [place] [address] Pet scan 04/01/2025 11:00 AM EDT Nurse Visit Hematology/Oncology [address] [place] [address] [place] [address] 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, RN [address] [place] [address] Chemo ed Keytruda 04/07/2025 1:15 PM EDT Office Visit [facility] [address] [place] [address] [place] [address] Follow up with lab chemotx Keytruda 04/07/2025 1:30 PM EDT Visit (SP) Office Hematology/Oncology [address] [place] [address] Ernesto Phoenix MD [address] [place] [address] [place] [address] Follow up with lab chemotx Keytruda 04/07/2025 2:00 PM EDT [facility] Hematology/Oncology [address] [place] [address] [place] [address] Follow up with lab chemotx Keytruda documented as of this encounter Visit Diagnoses Not on filedocumented in this encounter Care Teams Laundry Manager Relationship Specialty Start Date End Date Jessica Murphy CNP [address] [place] [address] PCP - General Internal Medicine 02/07/25 documented as of this encounter
--- OUTSIDE RECORDS SUMMARY | 2025-03-24 14:42 | XMS_ITS | Encounter Summary ---
Author Organization [facility] Address [address] [id number] Care Team Providers Care It Network Administrator Name Role Phone Jessica Murphy CNP Primary Care Provider + Source Comments In the event this information is protected by the Federal Confidentiality of Alcohol and Drug AbusePatient Records regulations: The Federal rules restrict any use of the information to criminally investigate or prosecute any alcohol or drug abuse patient.[facility] Encounter Details Date Type Department Care Team (Late st Contact Info) Description 03/10/2025 Orders Only [facility] [address] [id number] Tamanna Zhu, [facility] [address] [place] [address] Hyperkalemia (Primary Dx) Social History Tobacco Use [...] is lower risk 6 01/03/2025 Data from: https://www.neighborhoodatlas.[facility]/. Last address used for calculation [address] 01/03/2025 Sex and Gender Information Value [...] AM EDT Appointment Radiology [address] [place] [address] Pet scan 04/01/2025 11:00 AM EDT Nurse Visit Hematology/Oncology [address] [place] [address] 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, RN [address] [place] [address] Chemo ed Keytruda 04/07/2025 1:15 PM EDT Office Visit [facility] [address] [place] [address] Follow up with lab chemotx Keytruda 04/07/2025 1:30 PM EDT Visit (SP) Office Hematology/Oncology [address] [place] [address] [place] [address] Ernesto Phoenix MD [address] [place] [address] Follow up with lab chemotx Keytruda 04/07/2025 2:00 PM EDT [facility] Hematology/Oncology [address] [place] [address] [place] [address] Follow up with lab chemotx Keytruda documented as of this encounter Results * (ABNORMAL) RENAL FUNCTION PANEL (03/10/2025 2:38 PM EDT) [facility] Albumin 3.9 3.9 - 4.9 g/dL 03/11/2025 3:52 AM EDT [facility] Calcium, Total 9.8 8.5 - 10.2 mg/dL 03/11/2025 3:52 AM EDT [facility] Phosphorus 3.7 2.7 - 4.8 mg/dL 03/11/2025 3:52 AM EDT [facility] Glucose 94 74 - 99 mg/dL 03/11/2025 3:52 AM T [facility] Comment: The [place] Diabetes Association (ADA) provides guidance for cutoff [...] Standards of Medical Care in Diabetes 2016, [place] Diabetes Association. Diabetes Care. 2016.39(Suppl 1). BUN 31(H) 9 - 24 mg/dL 03/11/2025 3:52 AM EDT [facility] Creatinine 2.16(H) 0.73 - 1.22 mg/dL 03/11/2025 3:52 AM EDT [facility] Sodium 134(L) 136 - 144 mmol/L 03/11/2025 3:52 AM EDT [facility] Potassium 6.2(HH) 3.7 - 5.1 mmol/L 03/11/2025 3:52 AM EDT [facility] Chloride 100 98 - 107 mmol/L 03/11/2025 3:52 AM EDT [facility] CO2 19(L) 22 - 30 mmol/L 03/11/2025 3:52 AM EDT [facility] Anion Gap 15 8 - 15 mmol/L 03/11/2025 3:52 AM EDT [facility] Estimated Glomerular Filtration Rate 33(L) >=60 mL/min/1. 73m 03/11/2025 3:52 AM EDT [facility] Comment:Estimated Glomerular Filtration Rate (eGFR) is [...] 03/10/2025 2:39 PM EDT us Tamanna Zhu APRN.[facility] Final Resul t [facility] [address] [address], documented in this encounter Visit Diagnoses Diagnosis Hyperkalemia- Primary Hyperpotassemia documented in this encounter Care Teams It Network Administrator Relationship Specialty Start Date End Date Jessica Murphy CNP [address] [place] [address] PCP - General Internal Medicine 02/07/25 documented as of this encounter
--- OUTSIDE RECORDS SUMMARY | 2025-03-24 14:42 | XMS_ITS | Patient Health Record ---
Author Organization [facility] in [place] Address [address] [place] [address] Care Team Providers Care Skirt Trimmer Name Role Phone Jessica Murphy Primary Care [...] ESTERASE (ATILIO) ++ NEG - NEG MG/DL Urine Culture, Routine Reviewed date:09/24/2024 09:00:01 AM Interpretation: Performing Lab: Notes/Report: [facility] , Urine Culture, Routine See Below For Report Urine Culture, Routine Organism: 1.1 O:ESCHCO Isolated Organism: Escherichia coli. : Antibiotic Interpretation JENNYFER Status Urine Culture, Routine *ABNORMAL* Urine Culture, Routine Organism: 1.1 O:ESCHCO Isolated Organism: Escherichia coli. : Antibiotic Interpretation JENNYFER Status Urine Culture, Routine Greater than 100, 000 colony forming units per mL Urine Culture, Routine Organism: 1.1 O:ESCHCO Isolated Organism: Escherichia coli. : Antibiotic Interpretation JENNYFER Status Urine Culture, Routine Escherichia coli. Urine Culture, Routine Organism: 1.1 O:ESCHCO Isolated Organism: Escherichia coli. : Antibiotic Interpretation JENNYFER Status Urine Culture, Routine Organism: Escheri branden coli. : Urine Culture, Routine Organism: 1.1 O:ESCHCO Isolated Organism: Escherichia coli. : Antibiotic Interpretation JENNYFER Status Urine Culture, Routine *ABNORMAL* Urine Culture, Routine Organism: 1.1 O:ESCHCO Isolated Organism: Escherichia coli. : Antibiotic Interpretation JENNYFER Status Urine Culture, Routine Cefazolin <=4 ug/mL Urine Culture, Routine Organism: 1.1 O:ESCHCO Isolated Organism: Escherichia coli. : Antibiotic Interpretation JENNYFER Status Urine Culture, Routine Cefazolin with an JENNYFER <=16 predicts susceptibility Urine Culture, Routine Organism: 1.1 O:ESCHCO Isolated Organism: Escherichia coli. : Antibiotic Interpretation JENNYFER Status Urine Culture, Routine to the oral agent s cefaclor, cefdinir, cefpodoxime, Urine Culture, Routine Organism: 1.1 O:ESCHCO Isolated Organism: Escherichia coli. : Antibiotic Interpretation JENNYFER Status Urine Culture, Routine cefprozil, cefuro roxanne, cephalexin, and loracarbef when Urine Culture, Routine Organism: 1.1 O:ESCHCO Isolated Organism: Escherichia coli. : Antibiotic Interpretation JENNYFER Status Urine Culture, Routine used for therapy of uncomplicated urinary tract Urine Culture, Routine Organism: 1.1 O:ESCHCO Isolated Organism: Escherichia coli. : Antibiotic Interpretation JENNYFER Status Urine Culture, Routine infections due to E. coli, Klebsiella pneumoniae, and Urine Culture, Routine Organism: 1.1 O:ESCHCO Isolated Organism: Escherichia coli. : Antibiotic Interpretation JENNYFER Status Urine Culture, Routine Proteus mirabilis. Urine Culture, Routine Organism: 1.1 O:ESCHCO Isolated Organism: Escherichia coli. : Antibiotic Interpretation JENNYFER Status Urine Culture, Routine Greater than 100, 000 colony forming units per mL Urine Culture, Routine Organism: 1.1 O:ESCHCO Isolated Organism: Escherichia coli. : Antibiotic Interpretation JENNYFER Status Urine Culture, Routine See Below For Report Urine Culture, Routine Organism: 1.1 O:ESCHCO Isolated Organism: Escherichia coli. : Antibiotic Interpretation JENNYFER Status Urine Culture, Routine Performed at: [facility] Urine Culture, Routine Organism: 1.1 O:ESCHCO Isolated Organism: Escherichia coli. : Antibiotic Interpretation JENNYFER Status Urine Culture, Routine [address] [place], [place] [id number] Urine Culture, Routine Organism: 1.1 O:ESCHCO Isolated Organism: Escherichia coli. : Antibiotic Interpretation JENNYFER Status Urine Culture, Routine Flour Inspector: Kunal Dewey PhD, Phone: [phone] Urine Culture, Routine Organism: 1.1 O:ESCHCO Isolated Organism: Escherichia coli. : Antibiotic Interpretation JENNYFER Status Urine Culture, Routine See Below For Report Urine Culture, Routine Organism: 1.1 O:ESCHCO Isolated Organism: Escherichia coli. : Antibiotic Interpretation JENNYFER Status Urine Culture, Routine AMOXICILLIN/CLAVU LANIC ACID S F Urine Culture, Routine Organism: 1.1 O:ESCHCO Isolated Organism: Escherichia coli. : Antibiotic Interpretation JENNYFER Status Urine Culture, Routine Ampicillin S F Urine Culture, Routine Organism: 1.1 O:ESCHCO Isolated Organism: Escherichia coli. : Antibiotic Interpretation JENNYFER Status Urine Culture, Routine Cefepime S F Urine Culture, Routine Organism: 1.1 O:ESCHCO Isolated Organism: Escherichia coli. : Antibiotic Interpretation JENNYFER Status Urine Culture, Routine Ceftriaxone S F Urine Culture, Routine Organism: 1.1 O:ESCHCO Isolated Organism: Escherichia coli. : Antibiotic Interpretation JENNYFER Status Urine Culture, Routine Cefuroxime S F Urine Culture, Routine Organism: 1.1 O:ESCHCO Isolated Organism: Escherichia coli. : Antibiotic Interpretation JENNYFER Status Urine Culture, Routine Ciprofloxacin S F Urine Culture, Routine Organism: 1.1 O:ESCHCO Isolated Organism: Escherichia coli. : Antibiotic Interpretation JENYNFER Status Urine Culture, Routine Ertapenem S F Urine Culture, Routine Organism: 1.1 O:ESCHCO Isolated Organism: Escherichia coli. : Antibiotic Interpretation JENNYFER Status Urine Culture, Routine Gentamicin S F Urine Culture, Routine Organism: 1.1 O:ESCHCO Isolated Organism: Escherichia coli. : Antibiotic Interpretation JENNYFER Status Urine Culture, Routine Imipenem S F Urine Culture, Routine Organism: 1.1 O:ESCHCO Isolated Organism: Escherichia coli. : Antibiotic Interpretation JENNYFER Status Urine Culture, Routine Levofloxacin S F Urine Culture, Routine Organism: 1.1 O:ESCHCO Isolated Organism: Escherichia coli. : Antibiotic Interpretation JENNYFER Status Urine Culture, Routine Meropenem S F Urine Culture, Routine Organism: 1.1 O:ESCHCO Isolated Organism: Escherichia coli. : Antibiotic Interpretation JENNYFER Status Urine Culture, Routine Nitrofurantoin S F Urine Culture, Routine Organism: 1.1 O:ESCHCO Isolated Organism: Escherichia coli. : Antibiotic Interpretation JENNYFER Status Urine Culture, Routine Tetracycline S F Urine Culture, Routine Organism: 1.1 O:ESCHCO Isolated Organism: Escherichia coli. : Antibiotic Interpretation JENNYFER Status Urine Culture, Routine Tobramycin S F Urine Culture, Routine Organism: 1.1 O:ESCHCO Isolated Organism: Escherichia coli. : Antibiotic Interpretation JENNYFER Status Urine Culture, Routine Trimethoprim/Sulf amethoxa zole S F Urine Culture, Routine Organism: 1.1 O:ESCHCO Isolated Organism: Escherichia coli. : Antibiotic Interpretation JENNYFER Status Urine Culture, Routine Piperacillin/Tazo bactam S F Urine Culture, Routine Organism: 1.1 O:ESCHCO Isolated Organism: Escherichia coli. : Antibiotic Interpretation JENNYFER Status Performing Lab: see note SEE REPORT - [place] [facility] Id information not found for OBX-specific media operator legend LC - [facility] LB UA RANDOM W or MICROSCOPIC Reviewed date:10/10/2024 04:48:34 PM Interpretation: Performing Lab: Notes/Report: [facility] , Color Urine LT. YELLOW YELLOW Clarity Urine CLEAR CLEAR Specific Monona Urine 1.020 1.005-1.025 pH Urine 6.0 5.0-9.0 [...] NONE SEEN #/LPF Performing Lab: see note ML - [facility] LB Box Test Reviewed date:10/10/2024 03:21:54 PM Interpretation: Performing Lab: Notes/Report: URINE CULTURE [facility] , BOX Test Sent Out URINE CULTURE BOX Test Reference Lab [facility] BOX Test Date Sent 10/08/24 BOX Test Result SEE SCANNED REPORT Performing Lab: see note ML - [facility] LB CT abdomen pelvis wo con Reviewed date:12/16/2024 04:14:13 PM Interpretation: Performing Lab: Notes/Report: Source Facility: [facility]-[address] [place] [address] [place] [address] CT Scan Report Signed Patient: HARMAN LE MR#: [id number] : 1960 Acct:[id number] Age/Sex: 64 / M ADM Date: 12/14/24 Loc: CT Attending Dr: Nirmala SYED Ordering Physician: Nirmala Lake Date of Service: 12/14/24 Procedure(s): CT abdomen pelvis wo/w con Accession Number(s): [id number] cc: JESSICA MURPHY [place] [address] Patient Name: HARMAN LE MRN: [id number] date: 1960 Sex: M Assigned Patient Location: CT Current Patient Location: CT Accession/Order Number: [id number] Exam Date: 12/14/2024 13:23 Report Date: 12/14/2024 [...] Dedrick Marshall M.D.12/14/2024 1:35 PM Dictation Location: [place] [address] Electronically authenticated by: [id number] Y Date: 12/14/2024 13:35 Dictated By: Dedrick Marshall D.O. Signed By: 12/14/241336 DD/ 34 TD/TT: Layout Operator: [place] [address] CT Scan Report Signed Patient: HARMAN LE MR#: [id number] : 1960 Acct:[id number] Age/Sex: 64 / M ADM Date: 12/14/24 Loc: CT Attending Dr: Claudette SYED Ordering Physician: Nirmala Lake Date of Service: 12/14/24 Procedure(s): CT abd omen pelvis wo/w con Accession Number(s): [id number] cc: JESSICA MURPHY [place] [address] Patient Name: HARMAN LE MRN: [id number] date: 1960 Sex: M Assigned Patient Location: CT Current Patient Loca tion: CT Accession/Order Numb er: [id number] Exam Date: 12/14/2024 13:23 Report Date: 12/14/2024 [...] Dedrick Marshall M.D.12/14/2024 1:35 PM Dictation Location: [place] [address] Electronically authenticated by: [id number] Y Date: 12/14/2024 13:35 Dictated By: Dao Marshall D.O. Signed By: 12/14/241336 DD/ 34 TD/TT: Layout Operator: CBC AUTO DIFF Reviewed date:03/11/2025 09:50:30 AM Interpretation: Performing Lab: Notes/Report: [facility] , White Blood Count 12.9 4.0-11.0 10 [...] Performing Lab: see note ML - [facility] LB PROF CHEM 8 (BAS METB) Reviewed date:03/11/2025 09:50:30 AM Interpretation: Performing Lab: Notes/Report: [facility] , Sodium 137 136-145 mmol/L Potassium 5.0 3.5-5.1 mmol/L Chloride 102 98-107 mmol/L Carbon Dioxide 23.5 21.0-32.0 mmol/L Anion Gap 16.5 Glucose 101 74-106 mg/dL Blood Urea Nitrogen 38.0 7.0-18.0 mg/dL Creatinine 2.14 0.70-1.30 mg/dL Estimated GFR ( Yasmine 38 >=60 mL/min/1.73m 2 Estimated GFR (Non- Janis 31 >=60 mL/min/1.73m 2 BUN Creatinine Ratio 17.8 Calcium 8.9 8.5-10.1 mg/dL Performing Lab: see note ML - [facility] LB ECG 12 lead Reviewed date:03/12/2025 09:58:55 AM Interpretation: Performing Lab: Notes/Report: Source Facility: [place] [address] [place] [address] Electrocardiograph Report Signed Patient: HARMAN LE MR#: [id number] : 1960 Acct:[id number] Age/Sex: 65 / M ADM Date: 03/11/25 Loc: ER Attending Dr: Ordering Physician: Brianne Kunz Date of Service: 03/11/25 Procedure(s): ECG 12 lead Accession Number(s): [id number] cc: [facility] Test Date: 2025-03-11 Pat Name: HARMAN LE Department: Room: - Gender: Male Wagon Person: : 1960 Requested By: 1854 Order Number: [id number] Reading MD: SUBHASH HERNANDEZ M.D. Measurements Intervals [place] Rate: 55 P: 42 ND: 134 QRS: 66 QRSD: 92 T: 57 QT: 416 QTc: 406 Interpretive Statements 1100 Sinus rhythm 9110 normal ECG No previous ECG available for comparison Electronically Signed On 03-11-2025 14:17:46 EDT by SUBHASH HERNANDEZ M.D. Dictated By: SUBHASH HERNANDEZ Signed By: 03/11/25 1418 DD/ 0728 TD/TT: Layout Operator: [place] [address] Electrocardiograph Report Signed Patient: HARMAN LE MR#: [id number] : 1960 Acct:[id number] Age/Sex: 65 / M ADM Date: 03/11/25 Loc: ER Attending Dr: Ordering Physician: Brianne Kunz Date of Service: 03/11/25 Procedure(s): ECG 12 lead Accession Number(s): [id number] cc: [facility] Test Date: 2025-03-11 Pat Name: HARMAN GUERA Melanie Department: 79 Room: - Gender: Male Wagon Person: : 1960 Yamileth cherry By: 1854 Order Number: [id number] Reading MD: SUBHASH HERNANDEZ M.D. Measurements Intervals [place] Rate: 55 P: 42 ND: 134 QRS: 66 QRSD: 92 T: 57 QT: 416 QTc: 406 Interpretive Statements 1100 Sinus rhythm 9110 normal ECG No previous ECG avai lable for comparison Electronically Urszula d On 03-11-2025 14:17:46 EDT by SUBHASH HERNANDEZ M.D. Dictated By: SUBHASH HERNANDEZ Signed By: 03/11/25 1418 DD/ 0728 TD/TT: Layout Operator: PROF Packer(COMP METB) Reviewed date:03/11/2025 09:50:30 AM Interpretation: Performing Lab: Notes/Report: [facility] , Sodium 136 136-145 mmol/L Potassium 5.3 [...] Globulin Ratio 0.5 Performing Lab: see note ML - [facility] LB CREATININE Reviewed date:12/16/2024 04:07:05 PM Interpretation: Performing Lab: Notes/Report: [facility] , Creatinine 1.53 0.70-1.30 mg/dL Estimated GFR ( Yasmine 56 >=60 mL/min/1.73m 2 Estimated GFR (Non- Janis 46 >=60 mL/min/1.73m 2 Performing Lab: see note ML - [facility] UA RANDOM W or MICROSCOPIC Reviewed date:09/23/2024 09:32:27 AM Interpretation: Performing Lab: Notes/Report: [facility] , Color Urine LT. YELLOW YELLOW Clarity Urine CLEAR CLEAR Specific Monona Urine 1.020 1.005-1.025 pH Urine 6.0 5.0-9.0 [...] ORDERED Performing Lab: see note ML - [facility] LB GLYCOHEMOGLOBIN A1C Reviewed date:04/01/2024 03:43:33 PM Interpretation: Performing Lab: Notes/Report: [facility] , Glycohemoglobin A1C 5.8 4.5-6.2 % > 7.0 ACTION SUGGESTED ADA THERAPEUTIC TARGET < 7.0 ADA RECOMMENDED LIMIT 4.0 - 6.0 Estimated Average Glucose 120 Performing Lab: see note ML - [facility] LB POTASSIUM Reviewed date:03/20/2025 10:32:46 AM Interpretation: Performing Lab: Notes/Report: [facility] , Potassium 5.6 3.5-5.1 mmol/L Performing Lab: see note ML - [facility] LB CREATININE Reviewed date:03/20/2025 10:32:46 AM Interpretation: Performing Lab: Notes/Report: [facility] , Creatinine 2.14 0.70-1.30 mg/dL Estimated GFR ( Yasmine 38 >=60 mL/min/1.73m 2 Estimated GFR (Non- Janis 31 >=60 mL/min/1.73m 2 Performing Lab: see note ML - [facility] LB BUN Reviewed date:03/20/2025 10:32:46 AM Interpretation: Performing Lab: Notes/Report: [facility] , Blood Urea Nitrogen 35.0 7.0-18.0 mg/dL Performing Lab: see note ML - [facility] LB Reason For Referral Diagnosis 1 Hematuria (R31.9) Referral Organization [facility] Referring Provider First Name Jessica Referring Provider Last Name Katherine [facility] Referred Provider Nikolai Rust Referred Provider [...] Status W/U Status Risk Notes Problem Hypertension (61297432) HTN (hypertension) (I10) Active confirmed Problem Gout (16784932) Gout (M10.9) Active confirmed Problem Hematuria (08111042) Hematuria (R31.9) Active confirmed Problem Disorder of kidney and/or ureter (553576811) Left kidney mass (N28.89) Active confirmed Problem Type II diabetes mellitus without complication (187734183) Diabetes (E11.9) Active confirmed Vital Signs Blood pressure diastolic 76 mm Hg 03/04/2025 Height 71 in 03/04/2025 Blood pressure systolic 132 mm Hg 03/04/2025 Weight 264 lbs 09/20/2024 BMI 36.82 kg/m2 09/20/2024 Encounters Encounter Location Date Provider Diagnosis [facility] [address] [facility] [place] [address] 09/23/2024 Jessica Murphy [facility] [address] [facility] [place] [address] 09/23/2024 Jessica Murphy [facility] [address] [facility] [place] [address] 03/04/2025 Jessica Murphy [facility] [address] [facility] [place] [address] 09/23/2024 Jessica Murphy [facility] [address] [facility] [place] [address] 10/07/2024 Jessica Murphy UTI (urinary tract infection) N39.0 [facility] [address] [facility] [place] [address] 10/10/2024 Jessica Murphy [facility] [address] [facility] [place] [address] 10/10/2024 Jessica Murphy Hematuria R31.9 [facility] [address] [facility] [place] [address] 11/29/2024 Jessica Murphy [facility] [address] [facility] [place] [address] 03/03/2025 Jessica Murphy HTN (hypertension) I10 [facility] [address] [facility] [place] [address] 03/04/2025 Jessica Murphy [facility] [address] [facility] [place] [address] 09/20/2024 Jessica Murphy Blood in urine R31.9 [...] Coverage End Date [employer] [address] [address] [place] [address] [id number] Harman Le Self - patient is the insured Medical (General) History Surgical History Surgery Date(Month/Year) Cyst Removal Teeth Extraction
--- OUTSIDE RECORDS SUMMARY | 2025-03-24 14:43 | XMS_ITS | Encounter Summary ---
Author Organization [facility] Address [address] [place], [place] [id number] Care Team Providers Care Director Child Abuse Therapy Name Role Phone Jessica Murphy CNP Primary Care Provider + Source Comments In the event this information is protected by the Federal Confidentiality of Alcohol and Drug AbusePatient Records regulations: The Federal rules restrict any use of the information to criminally investigate or prosecute any alcohol or drug abuse patient.[facility] Encounter Details Date Type Department Care Team (Latest Contact Info) Description 03/18/2025 Travel Social History Tobacco Use Types Packs/Day [...] is lower risk 6 01/03/2025 Data from: https://www.neighborhoodatlas.medicine.[facility].edu/. Last address used for calculation [address] [place] [address] 01/03/2025 Sex and Gender Information Value Date [...] EDT Appointment Radiology Pet CT [address] [place] [address] Pet scan 04/01/2025 11:00 AM EDT Nurse Visit Hematology/Oncology [address] [place] [address] 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 RN [address] [place] [address] Chemo ed Keytruda 04/07/2025 1:15 PM EDT Office Visit [facility] [address] [place] [address] Follow up with lab chemotx Keytruda 04/07/2025 1:30 PM EDT Visit (SP) Office Hematology/Oncology [address] [place] [address] [place] [address] Ernesto [place] MD [address] [place] [address] [place] [address] Follow up with lab chemotx Keytruda 04/07/2025 2:00 PM EDT [facility] Hematology/Oncology [address] [place] [address] [place] [address] Follow up with lab chemotx Keytruda documented as of this encounter Visit Diagnoses Not on filedocumented in this encounter Care Teams Director Child Abuse Therapy Relationship Specialty Start Date End Date Jessica Murphy, TRANSCRIPTION [address] [place] [address] PCP - General Internal Medicine 02/07/25 documented as of this encounter
--- OUTSIDE RECORDS SUMMARY | 2025-03-24 14:43 | XMS_ITS | Encounter Summary ---
Author Organization [facility] Address [address] [place] [address] Care Team Providers Care Sole Dyer Name Role Phone Katherine Jessica Mayer CNP Primary Care Provider + Source Comments In the event this information is protected by the Federal Confidentiality of Alcohol and Drug AbusePatient Records regulations: The Federal rules restrict any use of the information to criminally investigate or prosecute any alcohol or drug abuse patient.[facility] Encounter Details Date Type Department Care Team (Late st Contact Info) Description 03/11/2025 Telephone [facility] Provider Adult [address] [place] [phone] Tamanna Zhu APRN.RENDERER [address] [place] [phone] Social History Tobacco Use Types Packs/Day Years [...] risk 6 01/03/2025 Data from: https://www.neighborhoodatlas.[facility]/. Last address used for calculation [address] 01/03/2025 Sex and Gender Information Value [...] Patient Instructions * Patient Instructions* Tamanna Zhu APRN.RENDERER - 03/11/2025 9:31 AM EDT Spoke with [...] AM EDT Appointment Radiology Pet CT [address] [place] [address] Pet scan 04/01/2025 11:00 AM EDT Nurse Visit Hematology/Oncology [address] [place] [address] [place] [address] 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, RN [address] [place] [place] [address] Chemo ed Keytruda 04/07/2025 1:15 PM EDT Office Visit [facility] [address] [place] [address] [place] [address] Follow up with lab chemotx Keytruda 04/07/2025 1:30 PM EDT Visit (SP) Office Hematology/Oncology [address] [place] [address] [place] [address] Ernesto Phoenix MD [address] [place] [address] [place] [address] Follow up with lab chemotx Keytruda 04/07/2025 2:00 PM EDT [facility] Hematology/Oncology [address] [place] [address] [place] [address] Follow up with lab chemotx Keytruda documented as of this encounter Visit Diagnoses Not on filedocumented in this encounter Care Teams Sole Dyer Relationship Specialty Start Date End Date Jessica Murphy CNP [address] [place] [address] PCP - General Internal Medicine 02/07/25 documented as of this encounter
--- OUTSIDE RECORDS SUMMARY | 2025-03-24 14:43 | XMS_ITS | Encounter Summary ---
Author Organization [facility] Address [facility] [place] [address] Care Team Providers Care Video Editing Intern Name Role Phone KatherineJessica Leyla ADAME Primary Care Provider + Source Comments In the event this information is protected by the Federal Confidentiality of Alcohol and Drug AbusePatient Records regulations: The Federal rules restrict any use of the information to criminally investigate or prosecute any alcohol or drug abuse patient.[facility] Encounter Details Date Type Department Care Team (Late st Contact Info) Description 03/11/2025 Telephone [facility] Provider Adult [address] [place], [place] [phone] Aurea Rodriguez MD [address] [place] [address] Social History Tobacco Use Types Packs/Day [...] risk 6 01/03/2025 Data from: https://www.neighborhoodatlas.[facility]/. Last address used for calculation [address] [facility] 01/03/2025 Sex and Gender Information Value [...] togo to ED closer to home as [place] is almost [place] hour away. All questions answered. Patient inquiring about his pathology results, will follow up with Dr. Arvizu. Aurea Rodriguez MD Urology Resident PGY-1 Pager documented in this encounter Plan of Treatment Upcoming Encounters Date Type Department Care Team (Latest Contact Info) Description 04/01/2025 8:45 AM EDT Appointment Radiology Pet CT [address] [facility] [place] [address] Pet scan 04/01/2025 11:00 AM EDT Nurse Visit Hematology/Oncology [address] [place] [address] [place] [address] 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 RN [address] [place] [address] [place] [address] Chemo ed Keytruda 04/07/2025 1:15 PM EDT Office Visit [facility] [address] [place] [address] [place] [address] Follow up with lab chemotx Keytruda 04/07/2025 1:30 PM EDT Visit (SP) Office Hematology/Oncology [address] [place] [address] [place] [address] Ernesto Phoenix MD [address] [place] [address] [place] [address] Follow up with lab chemotx Keytruda 04/07/2025 2:00 PM EDT [facility] Hematology/Oncology [address] [place] [address] [place] [address] Follow up with lab chemotx Keytruda documented as of this encounter Visit Diagnoses Not on filedocumented in this encounter Care Teams Video Editing Intern Relationship Specialty Start Date End Date Jessica Murphy CNP [address] [place] [address] PCP - General Internal Medicine 02/07/25 documented as of this encounter
--- OUTSIDE RECORDS SUMMARY | 2025-03-24 14:43 | XMS_ITS | Encounter Summary ---
Author Organization [facility] Address [facility] [place] [address] Care Team Providers Care Assistant Professor Of English Name Role Phone KatherineJessica Leyla ADAME Primary Care Provider + Source Comments In the event this information is protected by the Federal Confidentiality of Alcohol and Drug AbusePatient Records regulations: The Federal rules restrict any use of the information to criminally investigate or prosecute any alcohol or drug abuse patient.[facility] Encounter Details Date Type Department Care Team (Late st Contact Info) Description 03/12/2025 Telephone Urology [address] [place] [address] Rivera Arvizu MD [address] [place] [address] Social History Tobacco Use Types [...] is lower risk 6 01/03/2025 Data from: https://www.neighborhoodatlas.[facility]/. Last address used for calculation [address] 01/03/2025 Sex and Gender Information Value Date [...] EDT FLMA forms completed and faxed to [facility]. Fax confirmation received. Completed forms placed at the test desk operator to be scanned into patients chart. Guerita Worley RN documented in this encounter Plan of Treatment Upcoming Encounters Date Type Department Care Team (Latest Contact Info) Description 04/01/2025 8:45 AM EDT Appointment Radiology Pet [facility] [address] [address] Pet scan 04/01/2025 11:00 AM EDT Nurse Visit Hematology/Oncology [address] [place] [address] [place] [address] 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, RN [address] [place] [address] [place] [address] Chemo ed Keytruda 04/07/2025 1:15 PM EDT Office Visit [facility] [address] [place] [address] [place] [address] Follow up with lab chemotx Keytruda 04/07/2025 1:30 PM EDT Visit (SP) Office Hematology/Oncology [address] [place] [address] [place] [address] Ernesto Phoenix MD [address] [place] [address] [place] [address] Follow up with lab chemotx Keytruda 04/07/2025 2:00 PM EDT Infusion Center Hematology/Oncology [address] [place] [address] [place] [address] Follow up with lab chemotx Keytruda documented as of this encounter Visit Diagnoses Not on filedocumented in this encounter Care Teams Assistant Professor Of English Relationship Specialty Start Date End Date Jessica Murphy CNP [address] [place] [address] PCP - General Internal Medicine 02/07/25 documented as of this encounter
--- OUTSIDE RECORDS SUMMARY | 2025-03-24 14:43 | XMS_ITS | Encounter Summary ---
Author Organization [facility] Address [facility] [place] [address] Care Team Providers Care Metal Template Maker Name Role Phone KatherineJessica Leyla ADAME Primary Care Provider + Source Comments In the event this information is protected by the Federal Confidentiality of Alcohol and Drug AbusePatient Records regulations: The Federal rules restrict any use of the information to criminally investigate or prosecute any alcohol or drug abuse patient.[facility] Encounter Details Date Type Department Care Team (Late st Contact Info) Description 03/12/2025 Results Follow-Up Urology [address] [place] [address] Rivera Arvizu MD [address] [place] [address] Social History Tobacco Use Types [...] is lower risk 6 01/03/2025 Data from: https://www.neighborhoodatlas.[facility]/. Last address used for calculation [address] [...] activity for 6 weeks after surgery. Rivera Arviuz MD documented in this encounter Plan of Treatment Upcoming Encounters Date Type Department Care Team (Latest Contact Info) Description 04/01/2025 8:45 AM EDT Appointment Radiology Pet CT [address] [place] [address] [place] [address] Pet scan 04/01/2025 11:00 AM EDT Nurse Visit Hematology/Oncology [address] [place] [address] [place] [address] 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 RN [address] [place] [place] [address] [place] [address] Chemo ed Keytruda 04/07/2025 1:15 PM EDT Office Visit [facility] [address] [place] [address] [place] [address] Follow up with lab chemotx Keytruda 04/07/2025 1:30 PM EDT Visit (SP) Office Hematology/Oncology [address] [place] [address] [place] [address] Ernesto Phoenix MD [address] [place] [place] [address] [place] [address] Follow up with lab chemotx Keytruda 04/07/2025 2:00 PM EDT [facility] Center Hematology/Oncology [address] [place] [address] [place] [address] Follow up with lab chemotx Keytruda documented as of this encounter Visit Diagnoses Not on filedocumented in this encounter Care Teams Metal Template Maker Relationship Specialty Start Date End Date Jessica Murphy, SUMMER CAMP COUNSELOR [address] [place] [address] PCP - General Internal Medicine 02/07/25 documented as of this encounter
--- OUTSIDE RECORDS SUMMARY | 2025-03-24 14:43 | XMS_ITS | Encounter Summary ---
Author Organization [facility] Address [address] [place], [place] [id number] Care Team Providers Care Hydro Plant Operator Name Role Phone Jessica Murphy CNP Primary Care Provider + Source Comments In the event this information is protected by the Federal Confidentiality of Alcohol and Drug AbusePatient Records regulations: The Federal rules restrict any use of the information to criminally investigate or prosecute any alcohol or drug abuse patient.[facility] Encounter Details Date Type Department Care Team [...] is lower risk 6 01/03/2025 Data from: https://www.neighborhoodatlas.medicine.[facility].edu/. Last address used for calculation [address] [place] [address] 01/03/2025 Sex and Gender Information Value Date [...] EDT Appointment Radiology Pet CT [address] [place] [address] Pet scan 04/01/2025 11:00 AM EDT Nurse Visit Hematology/Oncology [address] [place] [address] 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 RN [address] [place] [address] Chemo ed Keytruda 04/07/2025 1:15 PM EDT Office Visit [facility] [address] [place] [address] Follow up with lab chemotx Keytruda 04/07/2025 1:30 PM EDT Visit (SP) Office Hematology/Oncology [address] [place] [address] [place] [address] Ernesto Phoenix MD [address] [place] [address] [place] [address] Follow up with lab chemotx Keytruda 04/07/2025 2:00 PM EDT [facility] Center Hematology/Oncology [address] [place] [address] [place] [address] Follow up with lab chemotx Keytruda documented as of this encounter Visit Diagnoses Not on filedocumented in this encounter Care Teams Hydro Plant Operator Relationship Specialty Start Date End Date Jessica Murphy, NUCLEAR WEAPONS MECHANICAL SPECIALIST [address] [place] [address] PCP - General Internal Medicine 02/07/25 documented as of this encounter
--- OUTSIDE RECORDS SUMMARY | 2025-03-24 14:43 | XMS_ITS | Encounter Summary ---
Author Organization [facility] Address [address] [place], [place] [id number] Care Team Providers Care Access Service Representative Name Role Phone Jessica Murphy Leyla ADAME Primary Care Provider + Source Comments In the event this information is protected by the Federal Confidentiality of Alcohol and Drug AbusePatient Records regulations: The Federal rules restrict any use of the information to criminally investigate or prosecute any alcohol or drug abuse patient.[facility] Encounter Details Date Type Department Care Team (Late st Contact Info) Description 03/20/2025 Telephone Hematology/Oncology [address] [place] [address] [place] [address] Ernesto Phoenix MD [address] [place] [address] [address] [place] [id number] Social History Tobacco Use Types Packs/Day Years [...] is lower risk 6 01/03/2025 Data from: https://www.neighborhoodatlas.[facility]/. Last address used for calculation [address] 01/03/2025 Sex and Gender Information Value [...] encounter Miscellaneous Notes * Telephone Encounter - Tamika Evans RPh - 03/20/2025 9:32 AM EDT Orders entered and routed in a separate encounter. Tayo Evans PharmD, BCOP * Telephone Encounter - Huyen Burden - 03/20/2025 8:53 AM EDT Patient is scheduled to begin on 04/07. Huyen Burden * Telephone Encounter - Ernesto Phoenix MD - 03/20/2025 8:31 AM EDT Please load keytruda 200mg every 3 weeks and schedule it. Thank you documented in this encounter Plan of Treatment Upcoming Encounters Date Type Department Care Team (Latest Contact Info) Description 04/01/2025 8:45 AM EDT Appointment Radiology Pet CT [address] [place] [address] [place] [address] Pet scan 04/01/2025 11:00 AM EDT Nurse Visit Hematology/Oncology [address] [place] [address] [place] [address] 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 RN [address] [place] [address] [place] [address] Chemo ed Keytruda 04/07/2025 1:15 PM EDT Office Visit [facility] [address] [place] [address] [place] [address] Follow up with lab chemotx Keytruda 04/07/2025 1:30 PM EDT Visit (SP) Office Hematology/Oncology [address] [place] [address] [place] [address] Ernesto Phoenix MD [address] [place] [address] [place] [address] Follow up with lab chemotx Keytruda 04/07/2025 2:00 PM EDT [facility] Center Hematology/Oncology [address] [place] [address] [place] [address] Follow up with lab chemotx Keytruda documented as of this encounter Visit Diagnoses Not on filedocumented in this encounter Care Teams Access Service Representative Relationship Specialty Start Date End Date Jessica Murphy, SHOW DOG TRAINER [address] [place] [address] PCP - General Internal Medicine 02/07/25 documented as of this encounter
--- OUTSIDE RECORDS SUMMARY | 2025-03-24 14:43 | XMS_ITS | Encounter Summary ---
Author Organization [facility] Address [address] [place] [address] Care Team Providers Care Shipyard Supervisor Name Role Phone Katherine Jessica Mayer CNP Primary Care Provider + Source Comments In the event this information is protected by the Federal Confidentiality of Alcohol and Drug AbusePatient Records regulations: The Federal rules restrict any use of the information to criminally investigate or prosecute any alcohol or drug abuse patient.[facility] Encounter Details Date Type Department Care Team (Late st Contact Info) Description 03/10/2025 Patient Update [facility] Provider Adult [address] [id number] Tamanna Zhu, [facility] [address] [place] [id number] Social History Tobacco Use Types Packs/Day Years [...] lower risk 6 01/03/2025 Data from: https://www.neighborhoodatlas.[facility]/. Last address used for calculation [address] 01/03/2025 Sex and Gender Information Value [...] Appointment Radiology [address] [place] [address] Pet scan 04/01/2025 11:00 AM EDT Nurse Visit Hematology/Oncology [address] [place] [address] 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 RN [address] [place] [address] Chemo ed Keytruda 04/07/2025 1:15 PM EDT Office Visit [facility] [address] [place] [address] [place] [address] Follow up with lab chemotx Keytruda 04/07/2025 1:30 PM EDT Visit (SP) Office Hematology/Oncology [address] [place] [address] [place] [address] Ernesto Phoenix MD [address] [place] [address] [place] [address] Follow up with lab chemotx Keytruda 04/07/2025 2:00 PM EDT [facility] Center Hematology/Oncology [address] [place] [address] [place] [address] Follow up with lab chemotx Keytruda documented as of this encounter Visit Diagnoses Not on filedocumented in this encounter Care Teams Shipyard Supervisor Relationship Specialty Start Date End Date Jessica Murphy, MUCKER COFFERDAM [address] [place] [address] PCP - General Internal Medicine 02/07/25 documented as of this encounter
--- OUTSIDE RECORDS SUMMARY | 2025-03-24 14:43 | XMS_ITS | Encounter Summary ---
Author Organization [facility] Address [address] [place], [place] [id number] Care Team Providers Care Schedule Manager Name Role Phone KatherineJessica Leyla ADAME Primary Care Provider + Source Comments In the event this information is protected by the Federal Confidentiality of Alcohol and Drug AbusePatient Records regulations: The Federal rules restrict any use of the information to criminally investigate or prosecute any alcohol or drug abuse patient.[facility] Encounter Details Date Type Department Care Team (Late st Contact Info) Description 03/20/2025 Orders Only Hematology/Oncology [address] [address] [facility] [address] [place] [address] Social History Tobacco Use Types Packs/Day Years [...] risk 6 01/03/2025 Data from: https://www.neighborhoodatlas.[facility]/. Last address used for calculation [address] 01/03/2025 Sex and Gender Information Value Date [...] AM EDT Appointment Radiology Pet CT [address] [place] [address] Pet scan 04/01/2025 11:00 AM EDT Nurse Visit Hematology/Oncology [address] [place] [address] 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, RN [address] [place] [address] Chemo ed Keytruda 04/07/2025 1:15 PM EDT Office Visit [facility] [address] [place] [address] [place] [address] Follow up with lab chemotx Keytruda 04/07/2025 1:30 PM EDT Visit (SP) Office Hematology/Oncology [address] [place] [address] [place] [address] Ernesto Phoenix MD [address] [place] [address] [place] [address] Follow up with lab chemotx Keytruda 04/07/2025 2:00 PM EDT [facility] Center Hematology/Oncology [address] [place] [address] [place] [address] Follow up with lab chemotx Keytruda documented as of this encounter Visit Diagnoses Not on filedocumented in this encounter Care Teams Schedule Manager Relationship Specialty Start Date End Date Jessica Murphy, CUSTOMS AND BORDER PROTECTION INSPECTOR [address] [place] [address] PCP - General Internal Medicine 02/07/25 documented as of this encounter
--- OUTSIDE RECORDS SUMMARY | 2025-03-24 14:44 | XMS_ITS | Clinical Summary ---
Author Organization [facility] Address [address] [place], [place] [id number] Care Team Providers Care Production Lapping Machine Operator Name Role Phone Jessica Murphy CNP Primary Care Provider +1 Allergies Active Allergy Reactions Criticality Noted Date Comments Tamsulosin Other: See Comments 02/27/2025 dizziness and back pain Medications dutasteride (AVODART) 0.5 mg capsule Take 0.5 mg by mouth once daily. Active spironolactone (ALDACTONE) 25 mg tablet Take 25 mg by mouth two times a day. Active metFORMIN (GLUCOPHAGE) 1,000 mg tablet Take 500 mg by mouth two times a day. Active FLUoxetine (PROZAC) 10 mg capsule Take 10 mg by mouth once daily. Active acetaminophen (TYLENOL) 325 mg tablet Take 2 tablets by mouth every 6 hours as needed for pain. 40 tablet 5 3:04 PM EDT 02/29/20 25 Active metoprolol tartrate, short acting, (LOPRESSOR) 100 mg tablet Take 100 mg by mouth two times a day. Active docusate sodium (COLACE ORAL) Take by mouth. 03/14/20 25 Active allopurinol (ZYLOPRIM) 300 mg tablet TAKE 2 TABLETS BY MOUTH EVERY DAY for 90 days 09/07/20 22 Active tamsulosin (FLOMAX) 0.4 mg Take 1 capsule by mouth every 12 hours. 11/11/19 25 025 Discontinued(Di scontinued by Patient) metoprolol succinate ER (TOPROL XL) 100 mg Take 100 mg by mouth once daily. 01/ 025 Discontinued lisinopril-hyd roCHLOROthiazi de (ZESTORETIC) 20-12.5 mg per tablet Take 1 tablet by mouth once daily. 025 Discontinued docusate sodium (COLACE) 100 mg capsule Take 1 capsule by mouth two times a day for 14 days. Stop taking if you develop diarrhea or loose stools 28 capsule 5 3:04 PM EDT 02/29/20 025 oxyCODONE IR (ROXICODONE) 5 mg immediate release tabletIndicati ons:Neoplasm of uncertain behavior of left kidney Take 1 tablet by mouth every 6 hours as needed for pain for up to 3 days. 8 tablet 5 3:04 PM EDT 02/29/20 025 Active Problems Problem Noted Date Diagnosed Date Renal cell carcinoma of left kidney 03/18/2025 Cancer Staging:Clinical: Unsigned Pathologic:Stage III(pT3a, pN1, cM0) - Unsigned Kidney mass 02/28/2025 Iron deficiency anemia, unspecified [...] Encounters Date Type Department Care Team Description 03/20/2025 Orders Only Hematology/Oncology [address] [facility] [place] [address] Tamika Evans RPh 03/20/2025 Telephone Hematology/Oncology [address] [place] [address] Ernesto Phoenix MD 03/18/2025 4:00 PM EDT Visit (SP) Office Hematology/Oncology [address] [place] [address] Ernesto Phoenix MD Renal cell carcinoma of left kidney (HCC) (Primary Dx) 03/18/2025 Travel 03/12/2025 Results Follow-Up Urology [id number] [place], [place] [id number] Bing Arvizu MD 03/12/2025 Telephone [address] [place], [place] [phone] Bing Arvizu MD 03/11/2025 Telephone [facility] Provider Adult [id number] [place] [address] Tamanna Zhu APRN.FUEL STORAGE TECHNICIAN 03/11/2025 Telephone [facility] Provider Adult [address] [place] [address] Aurea Rodriguez MD 03/10/2025 Patient Update [facility] Provider Adult [id number] [place] [address] Tamanna Zhu APRN.DEEP 03/10/2025 Travel 03/10/2025 Orders Only [facility] [address] [place] [address] Tamanna Zhu APRN.FUEL STORAGE TECHNICIAN Hyperkalemia (Primary Dx) 03/05/2025 Telephone [id number] [place] [phone] Bing Arvizu MD Patient Question 02/28/2025 Orders Only [facility] [address] [place] [address] Tamanna Zhu APRN.DEEP ODALIS (acute kidney injury) (Primary Dx) 02/27/2025 7:44 AM EDT Anesthesia Event [facility] Operating Room [address] [place] [address] Giorgio Masterson DO 02/27/2025 7:30 AM EDT - 02/27/2025 11:00 AM EDT Surgery [facility] Operating Room [address] [place] [address] Bing Arvizu MD LAPAROSCOPIC HAND ASSISTED NEPHRECTOMY INCLUDING PARTIAL URETERECTOMY 02/27/2025 6:20 AM EDT - 02/28/2025 4:00 PM EDT Hospital Encounter [facility] [id number] [id number] [place] [address] Bing Arvizu MD 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] Discharge Disposition: Home 02/27/2025 Travel 02/19/2025 9:00 AM EDT Infusion Center Hematology/Oncology [address] [place] [address] [place] [address] Intestinal malabsorption, unspecified type (HCC) (Primary Dx); Iron deficiency anemia, unspecified iron deficiency anemia type 02/17/2025 9:00 AM EDT Infusion Center Hematology/Oncology [address] [place] [address] [place] [address] Intestinal malabsorption, unspecified type (HCC) (Primary Dx); Iron deficiency anemia, unspecified iron deficiency anemia type 02/14/2025 Patient Msg Cancer Appts [address] [place] [address] Provider, [facility] Iron Infusion 02/10/2025 Orders Only Pre Anesthesia [address] [place] [address] Veronica Romero APRN.DEEP 02/10/2025 Telephone Pre Anesthesia [address] [place] [address] Veronica Romero TREE GIRDLER.FUEL STORAGE TECHNICIAN Patient Update 02/10/2025 Orders Only Pre Anesthesia [address] [place] [address] Veronica Romero, TREE GIRDLER.DEEP Iron deficiency anemia, unspecified iron deficiency anemia type (Primary Dx); Intestinal malabsorption, unspecified type (HCC) 02/10/2025 Telephone Pre Anesthesia [address] [place] [address] Veronica Romero, TREE GIRDLER.FUEL STORAGE TECHNICIAN Results 02/07/2025 1:40 PM EDT PAT Pre Anesthesia [address] [place] [address] 2, Pacc [place] Pre-op evaluation (Primary Dx); Depression, unspecified depression type; Type 2 diabetes mellitus without complication, unspecified whether terminal worker insulin use (HCC); BPH with obstruction/lower urinary tract symptoms; Hypertension, unspecified type; ROSA M (obstructive sleep apnea); Class 2 obesity due to excess calories without serious comorbidity in adult, unspecified BMI; Iron deficiency anemia, unspecified iron deficiency anemia type 02/06/2025 Travel 01/29/2025 Travel 01/29/2025 Results Follow-Up Urology [address] [place] [address] Bing Arvizu MD 01/24/2025 11:00 AM EDT - 01/24/2025 12:00 PM EDT Surgery Angio [address] [place] [address] Yovany Estrada, BIOPSY KIDNEY PERCUTANEOUS 01/24/2025 9:15 AM EDT - 01/24/2025 2:19 PM EDT Hospital Encounter [facility] MA[facility] FB36 [address] [place] [address] Bg Navas MD 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] Discharge Disposition: Home 01/20/2025 Orders Only Angio [address] [place] [address] Nichole Daugherty RN Renal mass, left (Primary Dx); Abnormal blood chemistry 01/20/2025 Patient Msg Angio [address] [place] [address] Provider, [facility] pre procedure instructions for 01/24/25 01/17/2025 Travel 01/09/2025 Telephone Urology [address] [place] [address] Bing Arvizu MD BIOPSY APPOINTMENT 01/06/2025 Patient Msg Pre Anesthesia [address] [place] [address] Provider, [facility] PACC Appointment 01/04/2025 Results Follow-Up Urology [address] [place] [address] Bing Arvizu MD 01/03/2025 2:20 PM EDT Office Visit Urology [address] [place] [address] Bing Arvizu MD Screening for nephropathy (Primary Dx); Neoplasm of uncertain behavior of left kidney 01/03/2025 Patient Update Urology [address] [place] [address] Bing Arvizu MD 01/03/2025 Telephone [facility] INTERVENTIONAL RADIOLOGY [address] [place] [address] Bing Arvizu MD REnal Biopsy 01/03/2025 Travel from Last 3 Months Immunizations Immunization Administration Dates Next Due COVID-19 vaccine (NOVAVAX) 06/29/2024 Social History Tobacco Use Types Packs/Day Years [...] is lower risk 6 01/03/2025 Data from: https://www.neighborhoodatlas.medicine.[facility].edu/. Last address used for calculation [address] [place] [address] 01/03/2025 Sex and Gender Information Value Date [...] Mass Index 36.26 03/18/2025 3:57 PM EDT Plan of Treatment Upcoming Encounters Date Type Department Care Team (Latest Contact Info) Description 04/01/2025 8:45 AM EDT Appointment Radiology Pet CT [address] [facility] [place] [address] Pet scan 04/01/2025 11:00 AM EDT Nurse Visit Hematology/Oncology [address] [place] [address] [place] [address] 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, RN [address] [place] [address] [place] [address] Chemo ed Keytruda 04/07/2025 1:15 PM EDT Office Visit [facility] Laboratory [address] [place] [address] [place] [address] Follow up with lab chemotx Keytruda 04/07/2025 1:30 PM EDT Visit (SP) Office Hematology/Oncology [address] [place] [address] [place] [address] Ernesto Phoenix MD [address] [place] [address] [place] [address] Follow up with lab chemotx Keytruda 04/07/2025 2:00 PM EDT Infusion Center Hematology/Oncology [address] [place] [address] [place] [address] Follow up with lab chemotx [facility]tr[facility] Health Maintenance Due Date Last Done Comments Diabetic Foot Exam 1969 Dilated Retinal Exam 1969 Urine Albumin:Creatinine Ratio 1969 Annual PCP Team Chronic Dise ase Visit 1977 Anxiety Screening 1977 Hepatitis C Screening 1977 LDL Cholesterol 1977 DTaP,Tdap,Td Vaccine (1 - Tdap) 1978 Pneumococcal Vaccine: 50+ (1 of 2 - PCV) 1978 Shingrix Vaccine (1 of 2) 1978 CT Colonography 01/06/2004 Cologuard (FIT-DNA) 01/06/2004 Colonoscopy 01/06/2004 Colorectal Cancer Screening 01/06/2004 Fecal Occult Blood 01/06/2004 Prostate Cancer Screening Discussion 01/06/2004 Sigmoidoscopy 01/06/2004 RSV Vaccine (1 - Risk 60-74 years [...] 2 diabetes mellitus without complication, unspecified whether terminal worker insulin use (HCC) BPH with obstruction/lower urinary [...] 01/03/2025 3:39 PM EDT Screening for nephropathy from Last 3 Months Results * EXTERNAL [...] of2 resultswithin the time period is included. Albumin 3.9 3.9 - 4.9 g/dL 03/11/2025 3:52 AM [facility] Calcium, Total 9.8 8.5 - 10.2 mg/dL 03/11/2025 3:52 AM [facility] Phosphorus 3.7 2.7 - 4.8 mg/dL 03/11/2025 3:52 AM [facility] Glucose 94 74 - 99 mg/dL 03/11/2025 3:52 AM [facility] Comment: The [place] Diabetes Association (ADA) provides guidance for cutoff [...] Standards of Medical Care in Diabetes 2016, [place] [employer] Association. Diabetes Care. 2016.39(Suppl 1). BUN 31(H) 9 - 24 mg/dL 03/11/2025 3:52 AM [facility] Creatinine 2.16(H) 0.73 - 1.22 mg/dL 03/11/2025 3:52 AM [facility] Sodium 134(L) 136 - 144 mmol/L 03/11/2025 3:52 AM [facility] Potassium 6.2(HH) 3.7 - 5.1 mmol/L 03/11/2025 3:52 AM [facility] Chloride 100 98 - 107 mmol/L 03/11/2025 3:52 AM [facility] CO2 19(L) 22 - 30 mmol/L 03/11/2025 3:52 AM [facility] Anion Gap 15 8 - 15 mmol/L 03/11/2025 3:52 AM [facility] Estimated Glomerular Filtration Rate 33(L) >=60 mL/min/1. 73m 03/11/2025 3:52 AM [facility] Comment:Estimated Glomerular Filtration Rate [...] 03/10/2025 2:39 PM EDT us Tamanna Zhu TREE GIRDLER.FUEL STORAGE TECHNICIAN LABORATORY Final Resul t Performing Organization Address [facility] Co de Phone Number [facility] [address], [place] * (ABNORMAL) GLUCOSE, BLOOD (POC) (02/28/2025 12:37 PM EDT) Only the most recent of11 resultswithin the time period is included. [facility], Point of Care 143(A) 74 - 99 mg/dL [facility] Comment: Location:[facility], [address] [place] [address], [facility] The Accu-Chek Inform II glucose meter has [...] TESTING Final Resul t Performing Organization Address [facility] Co de Phone Number [facility] POINT OF CARE [place] [address] [address] [place], [place] * (ABNORMAL) BASIC METABOLIC PANEL (02/28/2025 10:43 AM EDT) Only the most recent of4 resultswithin the time period is included. [facility] Signature Glucose 131(H) 74 - 99 mg/dL 02/28/2025 12:03 PM [facility] Comment: The [place] Diabetes Association (ADA) provides guidance for cutoff [...] Standards of Medical Care in Diabetes 2016, [place] Diabetes Association. Diabetes Care. 2016.39(Suppl 1). BUN 28(H) 9 - 24 mg/dL 02/28/2025 12:03 PM [facility] Creatinine 2.00(H) 0.73 - 1.22 mg/dL 02/28/2025 12:03 PM [facility] Sodium 135(L) 136 - 144 mmol/L 02/28/2025 12:03 PM [facility] Potassium 4.6 3.7 - 5.1 mmol/L 02/28/2025 12:03 PM [facility] Chloride 99 98 - 107 mmol/L 02/28/2025 12:03 PM [facility] CO2 21(L) 22 - 30 mmol/L 02/28/2025 12:03 PM [facility] Anion Gap 15 8 - 15 mmol/L 02/28/2025 12:03 PM [facility] Calcium, Total 8.9 8.5 - 10.2 mg/dL 02/28/2025 12:03 PM [facility] Estimated Glomerular Filtration Rate 36(L) >=60 mL/min/1. 73m 02/28/2025 12:03 PM [facility] Comment:Estimated Glomerular Filtration Rate (eGFR) is [...] EDT 02/28/2025 11:44 AM EDT us Bing Arvizu MD LABORATORY Final Resul t [facility] [address] [place] [address], * (ABNORMAL) COMPLETE BLOOD COUNT (02/28/2025 5:53 AM EDT) Only the most recent of2 resultswithin the time period is included. WBC 12.56(H) 3.70 - 11.00 k/uL 02/28/2025 6:19 [facility] RBC 3.84(L) 4.20 - 6.00 m/uL 02/28/2025 6:19 AM EDT [facility] Hemoglobin 9.2(L) 13.0 - 17.0 g/dL 02/28/2025 6:19 [facility] Hematocrit 30.1(L) 39.0 - 51.0 % 02/28/2025 6:19 AM [facility] MCV 78.4(L) 80.0 - 100.0 fL 02/28/2025 6:19 AM [facility] MCH 24.0(L) 26.0 - 34.0 pg 02/28/2025 6:19 AM EDT [facility] MCHC 30.6 30.5 - 36.0 g/dL 02/28/2025 6:19 AM [facility] RDW-CV 16.5(H) 11.5 - 15.0 % 02/28/2025 6:19 AM [facility] Platelet Count 243 150 - 400 k/uL 02/28/2025 6:19 AM EDT [facility] MPV 9.1 9.0 - 12.7 fL 02/28/2025 6:19 AM [facility] Absolute nRBC <0.01 <0.01 k/uL 02/28/2025 6:19 AM EDT [facility] Blood BLOOD SPECIMEN / Unknown Venipuncture / Unknown 02/28/2025 5:53 AM EDT 02/28/2025 6:06 AM EDT us Bing Arvizu MD LABORATORY Final Resul t Performing Organization Address City/[facility]/ZIP Co de Phone Number [facility] [address] [place] [address], [place] * (ABNORMAL) ARTERIAL BLOOD GAS, POC (02/27/2025 11:50 AM EDT) Only the most recent of3 resultswithin the time period is included. pH, Arterial 7.351 7.350 - 7.450 pH units Perfusion [facility] pCO2, Arterial 39.9 35.0 - 45.0 mmHg [facility] pO2, Arterial 161(A) 80 - 105 mmHg [facility] Base Excess (POCT) -3(A) -2 - 3 mmol/L [facility] HCO3 (POCT) 22.1 22.0 - 26.0 mmol/L [facility] sO2 (POCT) 99(A) 95 - 98 % [facility] Sodium (POCT) 133(A) 138 - 146 mmol/L [facility] Potassium (POCT) 5.4(A) 3.5 - 4.9 mmol/L [facility] Glucose (POCT) 179(A) 74 - 99 mg/dL [facility] Ionized Ca (POCT) 1.18 1.12 - 1.32 mmol/L [facility] Hemoglobin (POCT) 10.5(A) 12.0 - 17.0 g/dL [facility] Hematocrit (POCT) 31(A) 38 - 51 %PCV [facility] 02/27/2025 11:5 0 AM EDT Narrative [facility] POINT OF CARE - 02/27/2025 11:50 AM EDT Location:Perfusion [facility], [address] [place] [address], [address] Bing Arvizu MD POC TESTING Final Resul t Performing Organization Address City/[facility]/ZIP Co de Phone Number [facility] POINT OF CARE Perfusion [facility] [address] [place], [place] * SURGICAL PATHOLOGY (02/27/2025 11:37 AM EDT) Only the most recent of2 resultswithin the time period is included. Case Report Surgical Pathology Report Case: [id number] Authorizing Provider: Bing Arvizu MD Collected: 02/27/2025 11:37 AM Ordering Location: [facility] Received: 02/27/2025 12:13 PM Operating Room Pathologist: Shasta Middleton MD Specimens: A) - Lymph Node (Specify Site in Comments), para aortic lymph nodes B) - Kidney, Left, Resection, radical nephrectomy 03/11/2025 1:56 PM EDT [facility] FINAL DIAGNOSIS A. Lymph nodes, [...] benign adrenal gland. 03/11/2025 1:56 PM EDT [facility] at 1356 EDT Diagnosis Comment [...] the tumor classification. 03/11/2025 1:56 PM EDT [facility] Block for additional Biomarkers/Mo lecular studies Lázaro metastasis: B16 Kidney primary: B6, B20 03/11/2025 1:56 PM EDT [facility] Synoptic Report KIDNEY: Nephrectomy KIDNEY: [...] Kidney: Cortical cysts 03/11/2025 1:56 PM EDT [facility] Gross Description A. Lymph Node [...] 2025 2:55 PM Gross examination performed at [facility], [address] [place] [address] B. Kidney, Left, Resection Received in formalin [...] medullary tissue is present. Photographs are taken. Mens Locker Room Attendant sections are submitted as follows: B1 ureter [...] adjacent dissecting area from superior pole B12 quality control representative cyst from superior and mid pole B13-B14 adrenal gland with disrupted and nodular areas B15-B16 hilar lymph node KSZ February 28, 2025 [place] [address] Additional sections of mass are submitted in cassettes B17-B22. 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] 03/11/2025 1:56 PM EDT [facility] Performing Lab Diagnostic interpretation performed at: [facility], [address] [place] [address], [place] [address] CLIA# [id number] Financial Risk Manager: Zack Baez MD 03/11/2025 1:56 PM EDT [facility] Disclaimer Laboratory Developed Test (LDT) Disclaimer: Performance characteristics of immunohistochemical, immunofluorescent, and chromogenic in-situ hybridization tests have been determined by the performing laboratory within [facility]'s [facility] Pathology and Laboratory Medicine Department ([facility], [facility], [facility], [facility], [facility], [facility], or [facility]) in a manner consistent with CLIA requirements. One or more of these tests may not have been cleared or approved by the FDA. [facility] is regulated under CLIA as qualified to perform high-complexity testing. These tests are used for clinical purposes. These should not be regarded as investigational or for research. Positive and negative controls stain appropriately. 03/11/2025 1:56 PM EDT [facility] Tissue LYMPH NODE ASPIRATE / Unknown [...] Arvizu MD SURGICAL PATHOLOGY Final Re sult [facility] [address] [place] [address], [facility] [address] [place] [address], * (ABNORMAL) ARTERIAL BLOOD GASES (02/27/2025 11:00 AM EDT) Only the most recent of3 resultswithin the time period is included. pH, Arterial 7.35 7.35 - 7.45 02/27/2025 11:18 AM EDT [facility] pH, Temp Corrected, Arterial 02/27/2025 11:18 AM EDT [facility] pCO2, Arterial 41 36 - 46 mm Hg 02/27/2025 11:18 AM EDT [facility] pCO2, Temp Corrected, Arterial 02/27/2025 11:18 AM EDT [facility] pO2, Arterial 179(H) 85 - 95 mm Hg 02/27/2025 11:18 AM EDT [facility] pO2, Temp Corrected, Arterial 02/27/2025 11:18 AM EDT [facility] Bicarbonate, Arterial 22 22 - 26 mmol/L 02/27/2025 11:18 AM EDT [facility] O2 Saturation, Arterial 100(H) 95 - 98 % 02/27/2025 11:18 AM EDT [facility] Base Deficit, Arterial -3(L) -2 - 0 mmol/L 02/27/2025 11:18 AM EDT [facility] Oxyhemoglobin, Arterial 97 95 - 98 % 02/27/2025 11:18 AM EDT [facility] Carboxyhemoglo bin, Arterial 1.4 0.0 - 2.0 % 02/27/2025 11:18 AM EDT [facility] Comment:Carboxyhemoglobin Re ference Range for Smokers: 2.0-8.0% Methemoglobin, Arterial 0.8 0.0 - 1.5 % 02/27/2025 11:18 AM EDT [facility] Sodium, Whole Blood 135(L) 136 - 144 mmol/L 02/27/2025 11:18 AM EDT [facility] Potassium, Whole Blood 5.5(H) 3.5 - 5.0 mmol/L 02/27/2025 11:18 AM EDT [facility] Chloride, Whole Blood 103 97 - 105 mmol/L 02/27/2025 11:18 AM EDT [facility] Calcium Ionized, Whole Blood 1.24 1.08 - 1.30 mmol/L 02/27/2025 11:18 AM EDT [facility] Calcium Ionized, pH corrected 1.20 1.08 - 1.30 mmol/L 02/27/2025 11:18 AM EDT [facility] Glucose, Whole Blood 190(H) 60 - 105 mg/dL 02/27/2025 11:18 AM EDT [facility] Lactate 2.7(H) 0.5 - 2.2 mmol/L 02/27/2025 11:18 AM EDT [facility] Hemoglobin, Whole Blood 11.0(L) 13.0 - 17.0 g/dL 02/27/2025 11:18 AM EDT [facility] Hematocrit, Whole Blood 33.9(L) 39.0 - 51.0 % 02/27/2025 11:18 AM EDT [facility] Blood, Arterial BLOOD SPECIMEN / Unknown 02/27/2025 11:00 AM EDT 02/27/2025 11:04 AM EDT us Giorgio Masterson DO BLOOD GASES Final Resul t [facility] [address] [place] [address], * TYPE + SCREEN (02/27/2025 8:10 AM EDT) Only the most recent of2 resultswithin the time period is included. 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] us Bing Arvizu MD BLOOD BANK Final Resul t Performing Organization Address City/State/[facility] Co de Phone Number [facility] [address] * PERIPHERAL IV PLACEMENT (02/27/2025 8:05 AM EDT) Narrative Ciera Honeycutt, TREE GIRDLER.DRIVER/GUIDE - 02/27/2025 8:05 AM EDT Ciera Honeycutt, TREE GIRDLER.DRIVER/GUIDE 02/27/2025 9:12 AM PIV General Information Procedure [...] PRQ (02/27/2025 8:00 AM EDT) Narrative Giorgio Masterson, DO - 02/27/2025 8:00 AM EDT Giorgio Masterson, 02/28/2025 7:22 AM A-Line General Information Procedure [...] patient's condition and procedure. Giorgio Masterson DO Giorgio Masterson DO ANESTHESIA ORDERABLES Edite d Result - Final * Airway (02/27/2025 7:56 AM EDT) Narrative Ciera Honeycutt APRN.DRIVER/GUIDE - 02/27/2025 7:56 AM EDT Ciera Honeycutt APRN.DRIVER/GUIDE 02/27/2025 9:12 AM Airway General Information Procedure Start Time/Medication Administration: 02/27/2025 7:56 AM Procedure End Time: 02/27/2025 7:59 AM Patient location during procedure: OR Patient identity confirmed: arm band, care call or contact centre team leader and patient Staffing Anesthesiologist: Giorgio Masterson DO DRIVER/GUIDE: Ciera Honeycutt APRN.DRIVER/GUIDE SRNA: Tianna Diego SRNA Performed by: ELICIA [...] - 186 ug/dL 02/08/2025 2:23 PM EDT [facility] TIBC 247 232 - 386 ug/dL 02/08/2025 2:23 PM EDT [facility] Transferrin Saturation 9.3(L) 15.0 - 57.0 % 02/08/2025 2:23 PM EDT [facility] Blood BLOOD SPECIMEN / Unknown Venipuncture / Unknown 02/07/2025 2:41 PM EDT 02/07/2025 2:42 PM EDT Veronica Romero APRN.[facility] Fin al Result [facility] [address] [place] [address], * HEMOGLOBIN A1C (02/07/2025 2:41 PM EDT) Hemoglobin A1C 5.4 4.3 - 5.6 % 02/08/2025 4:25 PM EDT [facility] Comment:[place] Diabetes As sociation guidelines indicate that patients with HgbA1c in the range 5.7-6.4% are at increased risk for development of diabetes, and intervention by lifestyle modification may be beneficial. HgbA1c greater or equal to 6.5% is considered diagnostic of diabetes. Estimated Average Glucose 108 mg/dL 02/08/2025 4:25 PM EDT [facility] Comment:eAG: (Estimated aver age glucose) is a calculated value from HgbA1c and is quality control representative of the average blood glucose level in the last 2-3 month period. Blood BLOOD SPECIMEN / Unknown Venipuncture / Unknown 02/07/2025 2:41 PM EDT 02/07/2025 2:42 PM EDT Veronica Romero APRN.[facility] Fin al Result Performing Organization Address [facility] Co de Phone Number [facility] [address] [place] [address], * FERRITIN (02/07/2025 2:41 PM EDT) Ferritin 131.0 30.3 - 565.7 ng/mL 02/08/2025 2:34 PM EDT [facility] Blood BLOOD SPECIMEN / Unknown Venipuncture / Unknown 02/07/2025 2:41 PM EDT 02/07/2025 2:42 PM EDT Veronica Romero APRN.[facility] Fin al Result Performing Organization Address [facility] de Phone Number [facility] [address] [place] [address], * ECG COMPLETE (02/07/2025 1:03 PM EDT) Ventricular Rate 51 BPM [facility] Atrial Rate 51 BPM [facility] P-R Interval 136 ms [facility] QRS Duration 86 ms [facility] QT Interval 452 ms [facility] QTC Calculation (Bazett) 416 ms [facility] Calculated P [place] 50 degrees [facility] Calculated R [place] 44 degrees [facility] Calculated T [place] 55 degrees [facility] 02/07/2025 1:03 PM EDT Impressions [facility] - 02/26/2025 3:20 PM EDT SINUS BRADYCARDIA OTHERWISE NORMAL ECG Confirmed by FRANC SHIPMAN MD ([id number]) on 02/26/2025 3:20:12 PM Narrative [facility] - 02/26/2025 3:20 PM EDT NAME : HARMAN LE PID : [id number] : 1960 Gender : Male Race : ORD : [id number] Procedure Date : Feb 07 2025 13:03:37 [...] Acquired by : am, us Veronica Romero TREE GIRDLER.FUEL STORAGE TECHNICIAN EKG Fin al Result Performing Organization Address City/State/[facility] Co de Phone Number [facility] [address] [place] [address] * US IMAGING GUIDED BIOPSY RENAL (01/24/2025 12:27 PM EDT) Anatomical Region Laterality Modality Ultrasound 01/24/2025 12:2 7 PM EDT Impressions 01/24/2025 1:27 PM EDT IMPRESSION: ULTRASOUND GUIDED LEFT RENAL MASS BIOPSY DESCRIBED. v 12.9.21 Switch Coupler: YANY Transcribe Date/Time: Jan 24 2025 12:25P Dictated by : YOVANY ESTRADA DO This examination was interpreted and the report reviewed and electronically signed by: YOVANY ESTRADA DO on Jan 24 2025 1:25PM EST Narrative 01/24/2025 1:27 PM EDT * * *Final Report* * * DATE OF EXAM: Jan 24 2025 12:27PM [facility] [place] BIOPSY RENAL / 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 Estrada SUBWAY GUARD(S): None. CONSENT: The risks, benefits, treatment options, [...] performed by the: attending radiologist, without an orthotics assistant. ANESTHESIA/SEDATION: Conscious sedation: Versed: 1.0 mg [...] Corvocet core biopsy needle. 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 Estrada SUBWAY GUARD(S): None. CONSENT: The risks, benefits, treatment options, [...] performed by the: attending radiologist, without an orthotics assistant. ANESTHESIA/SEDATION: Conscious sedation: Versed: 1.0 mg [...] LEFT RENAL MASS BIOPSY DESCRIBED. v 12.9.21 Switch Coupler: YANY Transcribe Date/Time: Jan 24 2025 12:25P Dictated by : YOVANY ESTRADA DO This examination was interpreted and the report reviewed and electronically signed by: YOVANY ESTRADA DO on Jan 24 2025 1:25PM EST us [facility] Provider [facility] Final Result * BACTERIAL CULTURE, URINE (01/24/2025 10:19 AM EDT) Culture, Urine <10,000 CFU/ml Normal urogenital rudy 01/25/2025 12:38 PM EDT [facility] Urine MID-STREAM URINE SPECIMEN / Unknown Non Blood / Unknown 01/24/2025 10:19 AM EDT 01/24/2025 11:38 AM EDT Bing Arvizu MD MICROBIOLOGY Final Resul t Performing Organization Address City/[facility]/ZIP Co de Phone Number [facility] [address] [place] [address], * CONFIRM BLOOD TYPE (01/24/2025 8:40 AM EDT) ABO O 01/24/2025 11:31 AM EDT CC [facility] BLOOD B[facility] Rh(D) Positive 01/24/2025 11:31 AM EDT CC [facility] BLO[facility] Blood BLOOD SPECIMEN / Unknown Venipuncture / Unknown 01/24/2025 8:40 AM EDT 01/24/2025 8:40 AM EDT Bing Arvizu MD BLOOD BANK Final Resul t Performing Organization Address City/[facility] de Phone Number [facility] [address] [place] [address], [place] * PROTHROMBIN TIME (01/24/2025 8:35 AM EDT) PT Sec 12.1 9.7 - 13.0 sec 01/24/2025 9:13 AM EDT [facility] INR 1.1 0.9 - 1.3 01/24/2025 9:13 AM EDT [facility] Comment: Vitamin K Antagonist (VKA) Therapeutic Range: INR 2 to 3 (Target INR of 2.5) Note: For patients treated with VKA drugs, such as warfarin, the [place] College of Chest Physicians 2012 Guideline recommends [...] Chest 2012, 141:7S-47S Waqas RA, et al. [facility] 2017, 70: 252-289 Blood BLOOD SPECIMEN / Unknown Venipuncture / Unknown 01/24/2025 8:35 AM EDT 01/24/2025 8:35 AM EDT us Syl Bar TREE GIRDLER.[facility] Final Result [facility] [address] [place] [address], * (ABNORMAL) COMPREHENSIVE METABOLIC PANEL (01/24/2025 8:35 AM EDT) Protein, Total 7.6 6.3 - 8.0 g/dL 01/24/2025 11:46 AM EDT [facility] Albumin 3.8(L) 3.9 - 4.9 g/dL 01/24/2025 11:46 AM EDT [facility] Calcium, Total 9.2 8.5 - 10.2 mg/dL 01/24/2025 11:46 AM EDT [facility] Bilirubin, Total 0.4 0.2 - 1.3 mg/dL 01/24/2025 11:46 AM EDT [facility] Alkaline Phosphatase 66 38 - 113 U/L 01/24/2025 11:46 AM EDT [facility] AST 12(L) 14 - 40 U/L 01/24/2025 11:46 AM EDT [facility] ALT 8(L) 10 - 54 U/L 01/24/2025 11:46 AM EDT [facility] Glucose 112(H) 74 - 99 mg/dL 01/24/2025 11:46 AM EDT [facility] Comment: The [place] Diabetes Association (ADA) provides guidance for cutoff [...] Standards of Medical Care in Diabetes 2016, [place] Diabetes Association. Diabetes Care. 2016.39(Suppl 1). BUN 24 9 - 24 mg/dL 01/24/2025 11:46 AM T [facility] Creatinine 1.44(H) 0.73 - 1.22 mg/dL 01/24/2025 11:46 AM T [facility] Sodium 137 136 - 144 mmol/L 01/24/2025 11:46 AM T [facility] Potassium 4.5 3.7 - 5.1 mmol/L 01/24/2025 11:46 AM T [facility] Chloride 98 98 - 107 mmol/L 01/24/2025 11:46 AM T [facility] CO2 28 22 - 30 mmol/L 01/24/2025 11:46 AM T [facility] Anion Gap 11 8 - 15 mmol/L 01/24/2025 11:46 AM T [facility] Estimated Glomerular Filtration Rate 54(L) >=60 mL/min/1. 73m 01/24/2025 11:46 AM [facility] Comment:Estimated Glomerular Filtration Rate [...] Bing Arvizu MD LABORATORY Final Resul t [facility] [address] [facility] Desk [address] [address], * (ABNORMAL) COMPLETE BLOOD COUNT AND DIFFERENTIAL (01/24/2025 8:35 AM EDT) WBC 12.80(H) 3.70 - 11.00 k/uL 01/24/2025 9:05 AM EDT [facility] RBC 4.53 4.20 - 6.00 m/uL 01/24/2025 9:05 AM EDT [facility] Hemoglobin 11.1(L) 13.0 - 17.0 g/dL 01/24/2025 9:05 AM EDT [facility] Hematocrit 35.9(L) 39.0 - 51.0 % 01/24/2025 9:05 AM EDT [facility] MCV 79.2(L) 80.0 - 100.0 fL 01/24/2025 9:05 AM EDT [facility] MCH 24.5(L) 26.0 - 34.0 pg 01/24/2025 9:05 AM EDT [facility] MCHC 30.9 30.5 - 36.0 g/dL 01/24/2025 9:05 AM EDT [facility] RDW-CV 15.0 11.5 - 15.0 % 01/24/2025 9:05 AM EDT [facility] Platelet Count 310 150 - 400 k/uL 01/24/2025 9:05 AM EDT [facility] MPV 9.7 9.0 - 12.7 fL 01/24/2025 9:05 AM EDT [facility] Neutrophils % 79.3 % 01/24/2025 9:05 AM EDT [facility] Abs Neut 10.14(H) 1.45 - 7.50 k/uL 01/24/2025 9:05 AM EDT [facility] Lymphocytes % 10.3 % 01/24/2025 9:05 AM EDT [facility] Abs Lymph 1.32 1.00 - 4.00 k/uL 01/24/2025 9:05 AM EDT [facility] Monocytes % 8.5 % 01/24/2025 9:05 AM EDT [facility] Abs [place] 1.09(H) <0.87 k/uL 01/24/2025 9:05 AM EDT [facility] Eosinophils % 0.7 % 01/24/2025 9:05 AM EDT [facility] Abs Eosin 0.09 <0.46 k/uL 01/24/2025 9:05 AM EDT [facility] Basophils % 0.5 % 01/24/2025 9:05 AM EDT [facility] Abs Baso 0.07 <0.11 k/uL 01/24/2025 9:05 AM EDT [facility] Immature Granulocytes % 0.7 % 01/24/2025 9:05 AM EDT [facility] Abs Immature Gran 0.09 <0.10 k/uL 01/24/2025 9:05 AM EDT [facility] NRBC 0.0 /100 WBC 01/24/2025 9:05 AM EDT [facility] Absolute nRBC <0.01 <0.01 k/uL 01/24/2025 9:05 AM EDT [facility] Diff Type Auto 01/24/2025 9:05 AM EDT [facility] Blood BLOOD SPECIMEN / Unknown Venipuncture / Unknown 01/24/2025 8:35 AM EDT 01/24/2025 8:35 AM EDT us Bing Arvizu MD LABORATORY Final Resul t [facility] [address] [place] [address], * ACTIVATED PARTIAL THROMBOPLASTIN TIME (01/24/2025 8:35 AM EDT) APTT 31.6 23.0 - 32.4 sec 01/24/2025 9:13 AM EDT [facility] Blood BLOOD SPECIMEN / Unknown Venipuncture / Unknown 01/24/2025 8:35 AM EDT 01/24/2025 8:35 AM EDT Narrative [facility] - 01/24/2025 9:13 AM EDT [...] laboratory APTT reagent in use throughout the [facility]. us Bing Arvizu MD LABORATORY Final Resul t [facility] [address] [address], [place] from Last 3 Months Insurance [facility] Care Teams Production Lapping Machine Operator Relationship Specialty Start Date End Date Jessica Murphy CNP [address] [id number] PCP - General Internal Medicine 02/07/25
--- OUTSIDE RECORDS SUMMARY | 2025-03-24 14:44 | XMS_ITS ---
Author Organization [facility] Address [address] [place], [place] [id number] Care Team Providers Care Housekeeper Child Care Name Role Phone Jessica Murphy CNP Primary Care Provider + Active Problems Problem Noted Date Diagnosed Date [...] calories without serious comorbidity in adult 02/07/2025 Current Treatment and Therapy Plans AMB PEMBROLIZUMAB 200 D1 - Q21D* Plan Start Date:04/07/2025 Plan Provider:Ernesto Phoenix MD Linked Problems Renal cell carcinoma of left kidney (HCC) Treatment Medications Current Day (Day 1 , Cycle 1 - Planned for 04/07/2025) Next Day (Day 1, Cycle 2 - Planned for 04/28/2025) pembrolizumab IV infusion (KEYTRUDA) pembrolizumab 200 mg in NaCl 0.9% 58 mL (KEYTRUDA) pembrolizumab 200 mg in NaCl 0.9% 58 mL (KEYTRUDA) Other Current Plans IRON SUCROSE X 2 DOSES - OVER 2 WEEKS* Plan Start Date:02/17/2025 Plan Provider:Veronica Romero APRN.RESEARCH RECRUITER Linked Problems Intestinal malabsorption, un specified type (HCC)Iron deficiency anemia, unspecified iron deficiency anemia type Treatment Medications iron sucrose (VENOFER) Past Treatment and Therapy Plans No past plan information found.
--- OUTSIDE RECORDS SUMMARY | 2025-03-24 14:44 | XMS_ITS | Encounter Summary ---
Author Organization [facility] Address [address] [place] [address] Care Team Providers Care Lineman Service Or Work Dispatcher Name Role Phone Jessica Murphy CNP Primary Care Provider + Source Comments In the event this information is protected by the Federal Confidentiality of Alcohol and Drug AbusePatient Records regulations: The Federal rules restrict any use of the information to criminally investigate or prosecute any alcohol or drug abuse patient.[facility] Encounter Details Date Type Department Care Team (Late st Contact Info) Description 01/20/2025 Patient Msg Angio [address] [place] [address] Provider, Ccf pre procedure instructions for 01/24/25 Social History Tobacco Use Types Packs/Day Years Used Date Smoking Tobacco: Never Assessed Area Deprivation Index Answer Date Roland rded National Score (1-100), lower number is lower ri sk 78 01/03/2025 State Score (1-10), lower number is lower risk 6 01/03/2025 Data from: https://www.neighborhoodatlas.medicine.[facility].edu/. Last address used for calculation [address] [place] [address] 01/03/2025 Sex and Gender Information Value Date [...] AM EDT Appointment Radiology Pet CT [address] [facility] [place] [address] Pet scan 04/01/2025 11:00 AM EDT Nurse Visit Hematology/Oncology [address] [place] [address] [place] [address] 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, RN [address] [place] [address] Chemo ed Keytruda 04/07/2025 1:15 PM EDT Office Visit [facility] [address] [place] [address] [place] [address] Follow up with lab chemotx Keytruda 04/07/2025 1:30 PM EDT Visit (SP) Office Hematology/Oncology [address] [place] [address] [place] [address] Ernesto Phoenix MD [address] [place] [address] [place] [address] Follow up with lab chemotx Keytruda 04/07/2025 2:00 PM EDT Infusion Center Hematology/Oncology [address] [place] [address] [place] [address] Follow up with lab chemotx Keytruda documented as of this encounter Visit Diagnoses Not on filedocumented in this encounter Care Teams Lineman Service Or Work Dispatcher Relationship Specialty Start Date End Date Jessica Murphy CNP [address] [place] [address] PCP - General Internal Medicine 02/07/25 documented as of this encounter
--- OUTSIDE RECORDS SUMMARY | 2025-03-24 14:44 | XMS_ITS | Encounter Summary ---
Author Organization [facility] Address [address] [place] [id number] Care Team Providers Care Horticulture Instructor Name Role Phone Katherine Jessica Mayer CNP Primary Care Provider + Source Comments In the event this information is protected by the Federal Confidentiality of Alcohol and Drug AbusePatient Records regulations: The Federal rules restrict any use of the information to criminally investigate or prosecute any alcohol or drug abuse patient.[facility] Encounter Details Date Type Department Care Team ([facility] Contact Info) Description 02/14/2025 Patient Msg Cancer Appts [address] [place] [address] Provider, Ccf Iron Infusion Social History Tobacco [...] is lower risk 6 01/03/2025 Data from: https://www.neighborhoodatlas.medicine.[facility].edu/. Last address used for calculation [address] [place] [address] 01/03/2025 Sex and Gender Information Value Date [...] Pet CT [address] [facility] [place] [address] Pet scan 04/01/2025 11:00 AM EDT Nurse Visit Hematology/Oncology [address] [place] [address] [place] [address] 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, RN [address] [facility] [place] [address] Chemo ed Keytruda 04/07/2025 1:15 PM EDT Office Visit [facility] [address] [facility] [place] [address] Follow up with lab chemotx Keytruda 04/07/2025 1:30 PM EDT Visit (SP) Office Hematology/Oncology [address] [place] [address] [place] [address] Ernesto Phoenix MD [address] [place] [address] [place] [address] Follow up with lab chemotx Keytruda 04/07/2025 2:00 PM EDT [facility] Center Hematology/Oncology [address] [place] [address] [place] [address] Follow up with lab chemotx Keytruda documented as of this encounter Visit Diagnoses Not on filedocumented in this encounter Care Teams Horticulture Instructor Relationship Specialty Start Date End Date Jessica Murphy, FINANCIAL RECRUITER [address] [place] [address] PCP - General Internal Medicine 02/07/25 documented as of this encounter
--- OUTSIDE RECORDS SUMMARY | 2025-03-24 14:44 | XMS_ITS | Encounter Summary ---
Author Organization [facility] Address [address] [place] [address] Care Team Providers Care Sales Account Associate Name Role Phone KatherineSuzanneJessicahank Mayer CNP Primary Care Provider + Source Comments In the event this information is protected by the Federal Confidentiality of Alcohol and Drug AbusePatient Records regulations: The Federal rules restrict any use of the information to criminally investigate or prosecute any alcohol or drug abuse patient.[facility] Encounter Details Date Type Department Care Team ([facility] Contact Info) Description 01/29/2025 Results Follow-Up Urology [address] [id number] [place] [address] [place] [address] Social History Tobacco Use Types Packs/Day Years Used Date Smoking Tobacco: Never Assessed Area Deprivation Index Answer Date Roland rded National Score (1-100), lower number is lower ri sk 78 01/03/2025 State Score (1-10), lower number is lower risk 6 01/03/2025 Data from: https://www.neighborhoodatlas.medicine.[facility].edu/. Last address used for calculation [address] [place] [address] 01/03/2025 Sex and Gender Information Value Date [...] AM EDT Appointment Radiology Pet CT [address] [place] [address] Pet scan 04/01/2025 11:00 AM EDT Nurse Visit Hematology/Oncology [address] [place] [address] [place] [address] 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, RN [address] [place] [address] [place] [address] Chemo ed Keytruda 04/07/2025 1:15 PM EDT Office Visit [facility] [address] [place] [address] Follow up with lab chemotx Keytruda 04/07/2025 1:30 PM EDT Visit (SP) Office Hematology/Oncology [address] [place] [address] [place] [address] Ernesto Phoenix MD [address] [place] [address] [place] [address] Follow up with lab chemotx Keytruda 04/07/2025 2:00 PM EDT [facility] Center Hematology/Oncology [address] [place] [address] [place] [address] Follow up with lab chemotx Keytruda documented as of this encounter Visit Diagnoses Not on filedocumented in this encounter Care Teams Sales Account Associate Relationship Specialty Start Date End Date Jessica Murphy CNP [address] [place] [address] PCP - General Internal Medicine 02/07/25 documented as of this encounter
[2025-03-24 15:23] LABS: Estimated GFR (African America 38 (>=60 mL/min/1.73m^2); Estimated GFR (Non-African Ame 31 (>=60 mL/min/1.73m^2); Potassium 5.1 mmol/L (3.5-5.1)
== END 2025-03-24 14:39 | disposition home or self-care (01) ==
LOC: LAB 14:40
PROVIDERS: PCP Nurse Practitioner Family; Visit Provider Urology
DX: C64.9 Malignant neoplasm of unspecified kidney, except renal pelvis (principal)
CPT/HCPCS: 36415; 82565; 84132; 84520

== ENCOUNTER 2025-03-31 13:36 | Outpatient (OUT) | payer OTHER, SELFPAY ==
--- NOTE | 2025-03-31 13:40 | MR_ITS ---
The [address] [address] Patient Name: HARMAN LE MRN: [id number] date: 1960 Sex: M Assigned Patient Location: MRI Current Patient Location: MRI Accession/Order Number: [id number] Exam Date: 03/31/2025 14:50 Report Date: 03/31/2025 14:56 At the request of: PETE CALHOUN MD Procedure: MR head/brain wo con EXAMINATION: MRI OF THE BRAIN WITHOUT CONTRAST CLINICAL HISTORY: Renal Cell Carcinoma COMPARISON: None TECHNIQUE: Multiecho, multiplanar imaging of the brain was performed without enhancement. FINDINGS: No evidence of restriction diffusion is an diffusion-weighted imaging. No evidence of blood products are seen on T2 Star imaging. Cortical atrophy with mild chronic microvascular ischemic changes. This appears to extend into the elsy. Medulla and cerebellum appear unremarkable. Intraorbital contents appear unremarkable. No significant paranasal sinus disease. MR/MR head/brain wo con IMPRESSION: NO ACUTE INTRACRANIAL ABNORMALITY. CORTICAL ATROPHY WITH MILD CHRONIC MICROVASCULAR ISCHEMIC CHANGES. Impression dictated by: Russell Lepe Jr. DDrewODrew 03/31/2025 2:56 PM Dictation Location: [employer] [facility] [employer] Electronically authenticated by: [id number] Y Date: 03/31/2025 14:56
== END 2025-03-31 13:37 | disposition home or self-care (01) ==
LOC: MRI 13:36
PROVIDERS: PCP Nurse Practitioner Family; Visit Provider Student in an Organized Health Care Education/Training Program
DX: C64.2 Malignant neoplasm of left kidney, except renal pelvis (principal)
CPT/HCPCS: 70551

== ENCOUNTER 2025-05-05 12:39 | Outpatient (OUT) | payer OTHER, SELFPAY ==
--- OUTSIDE RECORDS SUMMARY | 2025-03-03 10:05 | XMS_ITS ---
Author Organization The [facility] in [place] Address [address] [place] [address] Care Team Providers Care Engineering Leader Name Role Phone Jessica Murphy Primary Care Provider REASON FOR VISIT update from urology Medications Medication SIG (Take, Route, Frequency, Duration) Notes Start Date End Date Status Dutasteride 03/03/2025 Active Encounters Encounter Location Date Provider Diagnosis [facility] [address] [place] [address] 03/03/2025 Jessica Murphy HTN (hypertension) I10 Assessments Encounter Date Diagnosis (ICD Code) Assessment Notes Treatment Notes Treatment Clinical Notes Section Notes 03/03/2025 HTN (hypertension) (ICD-10 - I10) Plan Of Treatment Medication Medication Name Sig Start Date Stop Date Notes Dutasteride 03/03/2025 Lisinopril-hydroCHLOROthiazi de 20-12.5 MG TAKE 1 TABLET BY MOUTH DAILY Progress Notes * Skyler LE DDOB:1960 (65 yo M)Acc No.[id number]:03/03/2025 Patient: Mary Skyler BANUELOS :1960 A ge:65 Y S ex:Male Address:[address] [place] [phone] * Refills Stop Lisinopril-hydroCHLOROthiazide Tablet, 20-12.5 MG, TAKE 1 TABLET BY MOUTH DAILY Start Dutasteride * true * Date: Generated for Printi ng/Faxing/eTransmitting on: 0 05/05/2025 12:41 PM EDT
--- OUTSIDE RECORDS SUMMARY | 2025-03-04 10:04 | XMS_ITS ---
Author Organization The [facility] in [place] Address [address] [place] [address] Care Team Providers Care Geriatric Psychiatrist Name Role Phone Jessica Murphy Primary Care Provider REASON FOR VISIT b/p check Vital Signs Height 71 in 03/04/2025 Encounters Encounter Location Date Provider Diagnosis [facility] [address] [place] [address] 03/04/2025 Jessica Murphy Plan Of Treatment No Information Progress Notes * Skyler LE DDOB:1960 (65 yo M)Acc No.[id number]:03/04/2025 Patient: Mary BANUELOSSkyler :1960 A ge:65 Y S ex:Male Address:[address] [place] [phone] Subjective: * Chief Complaints: * B /p check * Medical History: * Surgical History: * Hospitalization/Major Diagno stic Procedure: * Medications: Objective: * Vitals: H t: 71 in, Ht-cm: 180.34 cm. * Physical Examination: Assessment: Plan: * Treatment: * Procedure Codes: * true * Date: Generated for Tyei ng/Faleonardog/eTransmitting on: 0 05/05/2025 12:41 PM EDT
--- OUTSIDE RECORDS SUMMARY | 2025-03-04 10:15 | XMS_ITS ---
Author Organization The [facility] [place] Address [address] [place] [address] Care Team Providers Care Driver Name Role Phone Jessica Murphy Primary Care Provider REASON FOR VISIT bp Vital Signs Blood pressure systolic 132 mm Hg 03/04/20 25 Blood pressure diastolic 76 mm Hg 025 Height 71 in 03/04/2025 Encounters Encounter Location Date Provider Diagnosis [facility] [address] [place] [address] 03/04/2025 Jessica Murphy Plan Of Treatment No Information Progress Notes * Skyler LE DDOB:1960 (65 yo M)Acc No.[id number]:03/04/2025 BP Check Patient: Mary BANUELOSSkyler Provider: Elle Murphy ([facility]), CHILD THERAPIST :1960 A ge:65 Y S ex:Male Date:03/04/2025 Address:[address] [place], [place] [phone] Check In:02:00 PM ESTCheck O ut:02:49 PM EST Subjective: * Chief Complaints: * 1 . Bp. * Active Problem List I10 HTN (hypertension) Modified On:09/27/2023W/U Status:confirmed E11.9 Diabetes Modified On:09/27/2023W/U Status:confirmed M10.9 Gout Modified On:09/20/2024W/U Status:confirmed R31.9 Hematuria Modified On:10/10/2024W/U Status:confirmed N28.89 Left kidney mass Modified On:12/16/2024W/U Status:confirmed * Medical History: Objective: * Vitals: H t: 71 in, BP:132/76mm Hg, Ht-cm: 180.34 cm. Assessment: Plan: * Treatment: * * Sign off status: Completed Visit Status: C RICARDO (Check Out) true * Provider: Elle Murphy ([facility]), CHILD THERAPIST Date: 0 03/04/2025 Generated for Rock adame/Ha/Bangitting on: 05/05/2025 12:41 PM EDT
--- OUTSIDE RECORDS SUMMARY | 2025-04-17 13:30 | XMS_ITS | Encounter Summary ---
Author Organization [facility] Address [address] [place] [address] Care Team Providers Care Milking System Installer Name Role Phone Jessica Murphy CNP Primary Care Provider + 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 RN Unavailable [phone] Ernesto Phoenix MD Unavailable +4 Gerald Young MD Unavailable +[phone] Madelin Mc RN Unavailable Unavailable Myrtle Holland Unavailable Unavailable Yesica Calderon RD Unavailable Source Comments In the event this information is protected by the Federal Confidentiality of Alcohol and Drug AbusePatient Records regulations: The Federal rules restrict any use of the information to criminally investigate or prosecute any alcohol or drug abuse patient.[facility] Reason for Visit * Reason Comments Nutrition Assessment * Consult, Test, Treat (Routine) - Closed Specialty Diagnoses / Procedures Referred By Cassandra t Referred To Contact Nutrition / [facility] Diagnoses Renal cell carcinoma of left kidney (HCC) Renal cell carcinoma of left kidney (HCC) [C64.2] Procedures SYNCHRONOUS AUDIO-ONLY VISIT EST HIGH MDM 40 MIN PROVIDER SPECIALTY PHONE CALL [facility] [address] [place] [address] Phone: tel: Yesica Calderon, RD [address] [place] [address] Phone: tel: Referral ID Status Reason Start Date Expiration Date Visits Re quested Visits Authorized [id number] Closed 04/17/2025 10/01/2025 1 1 Encounter Details Date Type Department Care Team (Late st Contact Info) Description 04/17/2025 1:30 PM EDT Education Nutrition Therapy [address] [place] [address] Yesica Calderon, RD [address] [place] [address] Nutrition Assessment Social History Tobacco Use Types Packs/Day Years [...] lower risk 6 01/03/2025 Data from: https://www.neighborhoodatlas.medicine.[facility].edu/. Last address used for calculation [address] [...] of Assessment Author No 02/28/2025 3:36 PM EDTrent French RN * Because of a physical, mental, or emotional condition, do you have difficulty doing errands alone such as visiting a doctor's office or shopping? Answer Date of Assessment Author No 02/28/2025 3:36 PM Trent Pike RN documented as of this encounter Mental Status * Because of a physical, mental, or emotional condition, do you have serious difficulty concentrating, remembering, or making decisions? Answer Entry Date Author No 02/28/2025 3:36 PM Trent Pike RN documented in this encounter Progress Notes * Yesica Calderon, RD - 04/17/2025 1:29 PM EDT [facility] Nutrition Therapy: Virtual Consult - Initial Assessment I have communicated my name and active licensure. The patient???s identity and physical location were verified at the time of this visit. Either the patient or their legal hostess party sales representative has been informed of the risks and benefits of -- and alternatives to -- treatment through a remote evaluation and consents to proceed with the evaluation remotely. 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 RECOMMENDED MALNUTRITION DIAGNOSIS: UNABLE TO IDENTIFY MALNUTRITION AT THIS TIME NUTRITION CARE PLAN Nutrition Intervention 04/17/2025: Encourage consistent meal timing and complete meals/snacks during night shifts. Recommend potassium-controlled diet due to renal impairment. Reinforce hydration and fiber intake to support bowel regularity. Educate on renal-friendly food choices and label reading. Recommend food journal to monitor intake and symptoms. Provide nutrition education materials tailored to renal function and GI symptoms. Nutrition Monitoring & Evaluation: Monitor food and fluid intake via food journal. Reassess GI symptoms and bowel regimen effectiveness. Monitor lab values: BUN, creatinine, potassium, eGFR. Evaluate weight trends and dietary adherence. Assess readiness to implement dietary changes at next visit. Need for Follow up: as needed Skyler Stokes is a 65-year-old male with renal cell carcinoma on pembrolizumab, presenting withsigns of renal impairment and GI symptoms. Labs show elevated BUN and creatinine, low sodium, and reduced eGFR, suggesting compromised renal function. The patient reports constipation and inconsistent intake due to working night shifts. Diet history reveals incomplete intake data and reliance on processed beverages (Sita tea). No supplements or alcohol are reported. Anthropometrics show a weight of 122.6 kg and height of 178 cm, but no prior weights are available to assess weight change or BMI. Nutrition education was provided, and a renal-friendly, fiber-rich diet was recommended. Monitoring will focus on intake, symptoms, and lab trends. 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 Resting Metabolic Rate: 2017 Food Insecurity: Not on file Education Materials Provided: Renal Diet Basics READINESS TO LEARN Cognitive ability: Alert and oriented Motivation to learn: Eager Family support: Unable to assess - Family not present Instruction provided to: Patient Patient learns best by: Multiple Methods Factors affecting learning: None Physical limitations affecting learning: None Referred by: Dr. Mo OKT Billing Type: Initial Assess 3 units SIGNATURE: Yesica Calderon RD PATIENT NAME: Skyler Stokes DATE: April 17, 2025 TIME: 1:37 PM PAGER: documented in this encounter Plan of Treatment Upcoming Encounters Date Type Department Care Team (Latest Contact Info) Description 05/09/2025 9:00 AM EDT Office Visit [facility] [address] [place] [address] [place] [address] 3 week lab follow up chemotx Keytruda 05/09/2025 9:20 AM EDT Visit (SP) Office Hematology/Oncology [address] [place] [address] Ernesto Phoenix MD [address] [place] [address] 3 week lab follow up chemotx Keytruda 05/09/2025 9:45 AM EDT [facility] Hematology/Oncology [address] [place] [address] 3 week lab follow up chemotx Keytruda 06/06/2025 11:15 AM EDT Results Only [facility] [address] [place] [address] Young 06/20/2025 12:30 PM EDT Visit (SP) Office Hematology/Oncology [address] [place] [id number] Gerald Young MD [address] [place] [address] follow up per pt req documented as of this encounter Visit Diagnoses Diagnosis Type 2 diabetes mellitus without complication, unspecified whether termite control servicer insulin use (HCC)- Primary 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 documented in this encounter Care Teams Milking System Installer Relationship Specialty Start Date End Date Jessica Murphy CNP [address] [place] [address] PCP - General Internal Medicine 02/07/25 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, JUANA [address] [address] Specialty Ropewalk Rope Maker Hematology/Oncology 03/28/25 Ernesto Phoenix MD [address] [address] Physician Hematology/Oncology 03/28/25 [place] [address] [place] [address] Physician Hematology 04/09/25 Madelin Mc, RN Specialty Ropewalk Rope Maker Hematology/Oncology 04/09/25 Myrtle Holland LSW Nurse Informaticist 04/11/[address] [place] [address] Nutrition 04/17/25 documented as of this encounter
--- OUTSIDE RECORDS SUMMARY | 2025-05-05 12:41 | XMS_ITS | Encounter Summary ---
Author Organization [facility] Address [address] [place], [place] [address] Care Team Providers Care Germination Worker Name Role Phone Jessica Murphy CNP Primary Care Provider + 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 RN Unavailable Ernesto Phoenix MD Unavailable +[phone] Gerald Young MD Unavailable + Madelin Mc RN Unavailable Unavailable Myrtle Holland Unavailable Unavailable Yesica Calderon RD Unavailable Source Comments In the event this information is protected by the Federal Confidentiality of Alcohol and Drug AbusePatient Records regulations: The Federal rules restrict any use of the information to criminally investigate or prosecute any alcohol or drug abuse patient.[facility] Encounter Details Date Type Department Care Team (Late st Contact Info) Description 04/09/2025 Telephone Hematology/Oncology [address] [place] [address] [place] [address] Ernesto Phoenix MD [address] [place] [address] [place] [address] Social History Tobacco Use Types Packs/Day Years [...] is lower risk 6 01/03/2025 Data from: https://www.neighborhoodatlas.[facility]/. Last address used for calculation [address] 01/03/2025 Sex and Gender Information Value [...] 02/28/2025 3:36 PM SARAHYT Trent Adler RN * Do you have serious difficulty walking or climbing stairs? Answer Date of Assessment Author No 02/28/2025 3:36 PM Trent Pike RN * Do you have difficulty dressing or bathing? Answer Date of Assessment Author No 02/28/2025 3:36 PM SARAHYT Trent Adler RN * Because of a [...] Trent Pike RN documented in this encounter Miscellaneous Notes * Telephone Encounter - Tamika Evans RPh - 04/09/2025 3:[address] Young ordered medications already. Tayo Evans, PharmD, BCOP * Telephone Encounter - Ernesto Phoenix MD - 04/09/2025 2:15 PM EDT recommending keytruda lenvatinib for this pt. Please change the treatment plan from cabo Nivo to Lucho Pem. I am sorry for the change in plan of treatment. Thank you. documented in this encounter Plan of Treatment Upcoming Encounters Date Type Department Care Team (Latest Contact Info) Description 05/09/2025 9:00 AM EDT Office Visit [facility] [address] [place] [address] [place] [address] 3 week lab follow up chemotx Keytruda 05/09/2025 9:20 AM EDT Visit (SP) Office Hematology/Oncology [address] [place] [address] Ernesto Phoenix MD [address] [place] [address] 3 week lab follow up chemotx Keytruda 05/09/2025 9:45 AM EDT [facility] Hematology/Oncology [address] [place] [address] 3 week lab follow up chemotx Keytruda 06/06/2025 11:15 AM EDT Results Only [facility] [address] [facility] [place] [address] Young 06/20/2025 12:30 PM EDT Visit (SP) Office Hematology/Oncology [address] [place] [id number] Gerald Young MD [address] [place] [address] follow up per pt req documented as of this encounter Visit Diagnoses Not on filedocumented in this encounter Care Teams Germination Worker Relationship Specialty Start Date End Date Jessica Murphy CNP [address] [place] [address] PCP - General Internal Medicine 02/07/25 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, RN [address] [place] [address] [place] [address] Specialty Waste Minimization Technician Hematology/Oncology 03/28/25 Ernesto Phoenix MD [address] [place] [address] [place] [address] Physician Hematology/Oncology 03/28/25 [place] [address] [place] [address] Physician Hematology 04/09/25 Madelin Mc, RN Specialty Waste Minimization Technician Hematology/Oncology 04/09/25 Myrtle Holland LSW Draughtsman 04/11/[address] [place] [address] Nutrition 04/17/25 documented as of this encounter
--- OUTSIDE RECORDS SUMMARY | 2025-05-05 12:41 | XMS_ITS | Encounter Summary ---
Author Organization [facility] Address [facility] [place] [address] Care Team Providers Care Loss Claim Clerk Name Role Phone Jessica Murphy CNP Primary Care Provider + 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 RN Unavailable [phone] Ernesto Phoenix MD Unavailable + Gerald Young MD Unavailable + Madelin Mc RN Unavailable Unavailable Myrtle Holland Unavailable Unavailable Yesica Calderon RD Unavailable Source Comments In the event this information is protected by the Federal Confidentiality of Alcohol and Drug AbusePatient Records regulations: The Federal rules restrict any use of the information to criminally investigate or prosecute any alcohol or drug abuse patient.[facility] Encounter Details Date Type Department Care Team (Late st Contact Info) Description 04/23/2025 Patient [facility] HB-[address] [place] [address] Tamika Evans, [address] [place] [address] Free Drug application Social History Tobacco Use Types Packs/Day Years [...] is lower risk 6 01/03/2025 Data from: https://www.neighborhoodatlas.medicine.[facility]/. Last address used for calculation [address] [facility] [facility] 01/03/2025 Sex and Gender Information Value Date [...] 02/28/2025 3:36 PM Trent Pike RN * Because of a physical, mental, [...] Trent Pike RN documented in this encounter Plan of Treatment Upcoming Encounters Date Type Department Care Team (Latest Contact Info) Description 05/09/2025 9:00 AM EDT Office Visit [facility] [address] [place] [address] 3 week lab follow up chemotx Keytruda 05/09/2025 9:20 AM EDT Visit (SP) Office Hematology/Oncology [address] [place] [address] Ernesto Phoenix MD [address] [place] [address] 3 week lab follow up chemotx Keytruda 05/09/2025 9:45 AM EDT [facility] Hematology/Oncology [address] [facility] [address] 3 week lab follow up chemotx Keytruda 06/06/2025 11:15 AM EDT Results Only [facility] [address] [facility] [place] [address] Young 06/20/2025 12:30 PM EDT Visit (SP) Office Hematology/Oncology [address] [place] [address] Gerald Young MD [address] [place] [address] follow up per pt req documented as of this encounter Visit Diagnoses Not on filedocumented in this encounter Care Teams Loss Claim Clerk Relationship Specialty Start Date End Date Jessica Murphy CNP [address] [place] [address] PCP - General Internal Medicine 02/07/25 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, JUANA [address] [place] [address] Specialty Referral Specialist Hematology/Oncology 03/28/25 Ernesto Phoenix MD [address] [place] [address] Physician Hematology/Oncology 03/28/25 [place] [address] [place] [address] Physician Hematology 04/09/25 Madelin Mc, RN Specialty Referral Specialist Hematology/Oncology 04/09/25 Myrtle Holland LSW Boiler Installer 04/11/[address] [place] [address] Nutrition 04/17/25 documented as of this encounter
--- OUTSIDE RECORDS SUMMARY | 2025-05-05 12:41 | XMS_ITS | Encounter Summary ---
Author Organization [facility] Address [address] [place], [place] [address] Care Team Providers Care Grading Machine Feeder Name Role Phone Jessica Murphy CNP Primary Care Provider + 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 RN Unavailable [phone] Ernesto Phoenix MD Unavailable + Gerald Young [...] Care Team (Late st Contact Info) Description 04/21/2025 Orders Only Hematology/Oncology [address] [place] [address] Luz Maria Mcrae APRN.[facility] [address] [place] [address] Renal cell carcinoma of left kidney (HCC) [...] is lower risk 6 01/03/2025 Data from: https://www.neighborhoodatlas.[facility]/. Last address used for calculation [address] 01/03/2025 Sex and Gender Information Value [...] Description 05/09/2025 9:00 AM EDT Office Visit [facility] [address] [place] [address] [place] [address] 3 week lab follow up chemotx Keytruda 05/09/2025 9:20 AM EDT Visit (SP) Office Hematology/Oncology [address] [facility] [place] [address] Ernesto Phoenix MD [address] [place] [address] 3 week lab follow up chemotx Keytruda 05/09/2025 9:45 AM EDT [facility] Hematology/Oncology [address] [place] [address] [place] [address] 3 week lab follow up chemotx Keytruda 06/06/2025 11:15 AM EDT Results Only [facility] [address] [place] [address] [place] [address] Young 06/20/2025 12:30 PM EDT Visit (SP) Office Hematology/Oncology [address] [id number] Gerald Young MD [address] [place] [address] follow up per pt req Scheduled Orders Name Type Priority Associated Diagnoses Orde r Schedule MISC SEND OUT TST 1 Lab Routine Renal cell carcinoma of left kidney (HCC) Expected: 05/09/2025, Expires: 05/10/2025 documented as of this encounter Visit Diagnoses Diagnosis Renal cell carcinoma of left kidney (HCC)- Primary documented in this encounter Care Teams Grading Machine Feeder Relationship Specialty Start Date End Date Jessica Murphy CNP [address] [place] [address] PCP - General Internal Medicine 02/07/25 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 RN [address] [facility] [place] [address] Specialty Reproduction Order Processor Hematology/Oncology 03/28/25 Ernesto Phoenix MD [address] [place] [address] Physician Hematology/Oncology 03/28/25 [place] [address] [place] [address] Physician Hematology 04/09/25 Madelin Mc, RN Specialty Reproduction Order Processor Hematology/Oncology 04/09/25 Myrtle Holland LSW Corridor Redevelopment Manager 04/11/[address] [place] [address] Nutrition 04/17/25 documented as of this encounter
--- OUTSIDE RECORDS SUMMARY | 2025-05-05 12:41 | XMS_ITS | Encounter Summary ---
Author Organization [facility] Address [address] [place] [address] Care Team Providers Care Meter Supervisor Name Role Phone Jessica Murphy CNP Primary Care Provider + 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 RN Unavailable [phone] Ernesto Phoenix MD Unavailable +8 Gerald Young MD Unavailable +[phone] Madelin Mc RN Unavailable Unavailable Myrtle Holland Unavailable Unavailable Yesica Calderon RD Unavailable Source Comments In the event this information is protected by the Federal Confidentiality of Alcohol and Drug AbusePatient Records regulations: The Federal rules restrict any use of the information to criminally investigate or prosecute any alcohol or drug abuse patient.[facility] Encounter Details Date Type Department Care Team (Late st Contact Info) Description 03/10/2025 Patient Update [facility] Provider Adult [address] [id number] Tamanna Zhu APRN.[employer] ARCHITECT [address] [place] [address] Social History Tobacco Use Types Packs/Day Years [...] is lower risk 6 01/03/2025 Data from: https://www.neighborhoodatlas.[facility]/. Last address used for calculation [address] 01/03/2025 Sex and Gender Information Value [...] Description 05/09/2025 9:00 AM EDT Office Visit [facility] [address] [facility] [place] [address] 3 week lab follow up chemotx Keytruda 05/09/2025 9:20 AM EDT Visit (SP) Office Hematology/Oncology [address] [place] [address] Ernesto Phoenix MD [address] [place] [place] [address] 3 week lab follow up chemotx Keytruda 05/09/2025 9:45 AM EDT [facility] Hematology/Oncology [address] [place] [address] 3 week lab follow up chemotx Keytruda 06/06/2025 11:15 AM EDT Results Only [facility] [address] [place] [address] Young 06/20/2025 12:30 PM EDT Visit (SP) Office Hematology/Oncology [address] [place] [address] Gerald Young MD [address] [place] [address] follow up per pt req documented as of this encounter Visit Diagnoses Not on filedocumented in this encounter Care Teams Meter Supervisor Relationship Specialty Start Date End Date Jessica Murphy CNP [address] [place] [address] PCP - General Internal Medicine 02/07/25 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, RN [address] [facility] [place] [address] Specialty Programmer Engineering And Scientific Hematology/Oncology 03/28/25 Ernesto Phoenix MD [address] [facility] [place] [address] Physician Hematology/Oncology 03/28/25 [place] [address] [place] [address] Physician Hematology 04/09/25 Madelin Mc, RN Specialty Programmer Engineering And Scientific Hematology/Oncology 04/09/25 Myrtle Holland LSW Personal Financial Advisor 04/11/[address] [place] [address] Nutrition 04/17/25 documented as of this encounter
--- OUTSIDE RECORDS SUMMARY | 2025-05-05 12:41 | XMS_ITS | Encounter Summary ---
Author Organization [facility] Address [address] [place] [address] Care Team Providers Care Lens Inserter Name Role Phone Jessica Murphy CNP Primary Care Provider + 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 RN Unavailable [phone] Ernesto Phoenix MD Unavailable + Gerald Young [...] any alcohol or drug abuse patient.[facility] Encounter Details Date Type Department Care Team (Late st Contact Info) Description 04/09/2025 Patient [facility] HB-[address] [place] [address] Isabela Kenny, [facility] [address] [facility] [address] [place], [facility] [employer] Prescription Social History Tobacco Use Types Packs/Day Years [...] is lower risk 6 01/03/2025 Data from: https://www.neighborhoodatlas.medicine.[facility]/. Last address used for calculation [address] 01/03/2025 Sex and Gender Information Value [...] Description 05/09/2025 9:00 AM EDT Office Visit [facility] [address] [place] [address] 3 week lab follow up chemotx Keytruda 05/09/2025 9:20 AM EDT Visit (SP) Office Hematology/Oncology [address] [facility] [place] [address] Ernesto Phoenix MD [address] [facility] [place] [address] 3 week lab follow up chemotx Keytruda 05/09/2025 9:45 AM EDT [facility] Hematology/Oncology [address] [facility] [place] [address] 3 week lab follow up chemotx Keytruda 06/06/2025 11:15 AM EDT Results Only [facility] [address] [facility] [place] [address] Young 06/20/2025 12:30 PM EDT Visit (SP) Office Hematology/Oncology [address] [place] [address] Gerald Young MD [address] [place] [address] follow up per pt req documented as of this encounter Visit Diagnoses Not on filedocumented in this encounter Care Teams Lens Inserter Relationship Specialty Start Date End Date Jessica Murphy CNP [address] [place] [address] PCP - General Internal Medicine 02/07/25 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 RN [address] [place] [address] Specialty Coffee Bar Attendant Hematology/Oncology 03/28/25 Ernesto Phoenix MD [address] [facility] [place] [address] Physician Hematology/Oncology 03/28/25 [place] [address] [place] [address] Physician Hematology 04/09/25 Madelin Mc, RN Specialty Coffee Bar Attendant Hematology/Oncology 04/09/25 Myrtle Holland LSW Doughnut Glazier 04/11/[address] [place] [address] Nutrition 04/17/25 documented as of this encounter
--- OUTSIDE RECORDS SUMMARY | 2025-05-05 12:41 | XMS_ITS | Encounter Summary ---
Author Organization [facility] Address [address] [place], [place] [id number] Care Team Providers Care Computer Repair Instructor Name Role Phone Jessica Murphy CNP Primary Care Provider + 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 RN Unavailable [phone] Ernesto Phoenix MD Unavailable + Gerald Young MD Unavailable + Madelin Mc RN Unavailable Unavailable Myrtle Holland Unavailable Unavailable Yesica Calderon RD Unavailable Source Comments In the event this information is protected by the Federal Confidentiality of Alcohol and Drug AbusePatient Records regulations: The Federal rules restrict any use of the information to criminally investigate or prosecute any alcohol or drug abuse patient.[facility] Reason for Visit * Reason Comments Care Coordination C1D1 Post Treatment Call & Oral Anti-Cancer Agent Follow Up Encounter Details Date Type Department Care Team (Late st Contact Info) Description 04/21/2025 Telephone Hematology/Oncology [address] [place] [address] [place] [address] Riya Villeda, JUANA [address] [place] [address] [place] [address] Care Coordination (C1D1 Post Treatment Call & Oral Anti-Cancer Agent Follow Up) Social History Tobacco Use Types Packs/Day Years [...] is lower risk 6 01/03/2025 Data from: https://www.neighborhoodatlas.[facility].edu/. Last address used for calculation [address] 01/03/2025 Sex and Gender Information Value [...] encounter Miscellaneous Notes * Telephone Encounter - Riya Villeda RN - 04/21/2025 1:02 PM EDT CYCLE 1/DAY 1 POST TREATMENT CALL ORAL ANTI-CANCER AGENTS FOLLOW-UP PHONE CALL/VISIT Today's date: April 21, 2025 Treatment Regimen: Pembrolizumab C1D1 Date: 04/18/25 Called patient to follow-up on symptom management. Spoke with patient. Patient identified by name and date of . YES Patient is on cycle 1, week 1, day 4 of Lenvatinib for Kidney Cancer. SYMPTOM ASSESSMENT Neuro: None CV/Resp: None GI/: Appetite: decreased appetite, Fluid intake: Drinking fluids. Unable to provide an estimated amount,and Bladder/Urinary Changes: None Integument: Itching - Intermittent itching on his arms. Denies rash. Activity: Patient reported decreased energy level - Not new. No worse since starting treatment. Reports he went back to work last night. Pain: No=0 (pain 0 on a scale of 0-10). Fever: No Chills: No Pt verbalizes correct dose of Lenvatinib (10 mg/day). Any new referrals needed? No Reinforced CURRENT treatment education based on current and anticipated symptoms. Discussed port/line care and patient verbalizes understanding: Not Applicable Patient instructed to contact office or after hours Hematology/Oncology fellow for: temperature >= 100.4; questions or concerns. Patient verbalized understanding of when to seek medical attention and after hours number protocol. Does the patient need interventions or same day appointment:No ADDITIONAL FOLLOW UP: The next outreach call is due on: Advised pt to call w/ any questions or concerns and was scheduledNA The following lab tests are due: CBC, CMP on 05/09/25 Verified patient is aware of next appointment in the cancer center: Yes. Verified patient verbalized how to correctly refill the oral agent prescription. Yes Does the patient have any financial difficulties affording this medication? No Patient verbalizes understanding of when to seek Medical Attention? YES Patient verbalizes understanding of after-hours and weekend phone number? YES Patient verbalized importance of medication compliance in taking the oral agent as prescribed. Patient instructed to call if unable to comply. Riya Sessler, RN documented in this encounter Plan of Treatment Upcoming Encounters Date Type Department Care Team (Latest Contact Info) Description 05/09/2025 9:00 AM EDT Office Visit [facility] [address] [place] [address] 3 week lab follow up chemotx Keytruda 05/09/2025 9:20 AM EDT Visit (SP) Office Hematology/Oncology [address] [place] [address] Ernesto Phoenix MD [address] [place] [place] [address] 3 week lab follow up chemotx Keytruda 05/09/2025 9:45 AM EDT [facility] Hematology/Oncology [address] [place] [place] [address] 3 week lab follow up chemotx Keytruda 06/06/2025 11:15 AM EDT Results Only [facility] [address] [place] [address] Young 06/20/2025 12:30 PM EDT Visit (SP) Office Hematology/Oncology [address] [place] [address] Gerald Young MD [address] [place] [address] follow up per pt req documented as of this encounter Visit Diagnoses Not on filedocumented in this encounter Care Teams Computer Repair Instructor Relationship Specialty Start Date End Date Jessica Murphy CNP [address] [place] [address] PCP - General Internal Medicine 02/07/25 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 RN [address] [place] [address] Specialty Foam Cutting Supervisor Hematology/Oncology 03/28/25 Ernesto Phoenix MD [address] [place] [address] [place] [address] Physician Hematology/Oncology 03/28/25 [place] [address] [place] [address] Physician Hematology 04/09/25 Madelin Mc, RN Specialty Foam Cutting Supervisor Hematology/Oncology 04/09/25 Myrtle Holland LSW Snailer 04/11/25 Yesica Calderon, DARYL [address] [place] [address] Nutrition 04/17/25 documented as of this encounter
--- OUTSIDE RECORDS SUMMARY | 2025-05-05 12:41 | XMS_ITS | Encounter Summary ---
Author Organization [facility] Address [address] [place], [place] [id number] Care Team Providers Care Personnel Training Officer Name Role Phone Jessica Murphy CNP Primary Care Provider + 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 RN Unavailable [phone] Ernesto Phoenix MD Unavailable [phone] Gerald Young MD Unavailable + Madelin Mc RN Unavailable Unavailable Myrtle Holland Unavailable Unavailable Yesica Calderon RD Unavailable Source Comments In the event this information is protected by the Federal Confidentiality of Alcohol and Drug AbusePatient Records regulations: The Federal rules restrict any use of the information to criminally investigate or prosecute any alcohol or drug abuse patient.[facility] Reason for Visit * Reason Comments Lab Orders Encounter Details Date Type Department Care Team (Late st Contact Info) Description 04/15/2025 Telephone Hematology/Oncology [address] [place] [address] [place] [address] Ernesto Phoenix MD [address] [place] [address] [place] [address] Lab Orders Social History Tobacco Use Types Packs/Day Years [...] is lower risk 6 01/03/2025 Data from: https://www.neighborhoodatlas.medicine.[facility]/. Last address used for calculation [address] 01/03/2025 Sex and Gender Information Value [...] Trent Pike RN * Do you have serious difficulty [...] encounter Miscellaneous Notes * Telephone Encounter - Isabella Ovalle MA - 04/15/2025 3:[address] labs for treatment on 04/18 if needed. Isabella Ovalle MA documented in this encounter Plan of Treatment Upcoming Encounters Date Type Department Care Team (Latest Contact Info) Description 05/09/2025 9:00 AM EDT Office Visit [facility] [address] [place] [address] 3 week lab follow up chemotx Keytruda 05/09/2025 9:20 AM EDT Visit (SP) Office Hematology/Oncology [address] [place] [address] Ernesto Phoenix MD [address] [place] [address] 3 week lab follow up chemotx Keytruda 05/09/2025 9:45 AM EDT [facility] Hematology/Oncology [address] [place] [address] 3 week lab follow up chemotx Keytruda 06/06/2025 11:15 AM EDT Results Only [facility] [address] [place] [address] Young 06/20/2025 12:30 PM EDT Visit (SP) Office Hematology/Oncology [address] [place] [address] Gerald Young MD [address] [place], [place] [id number] follow up per pt req documented as of this encounter Results * THYROID STIMULATING HORMONE (04/18/2025 9:36 AM EDT) TSH 2.410 0.270 - 4.200 mIU/L 04/18/2025 7:05 PM EDT [facility] Blood BLOOD SPECIMEN / Unknown Venipuncture / Unknown 04/18/2025 9:36 AM EDT 04/18/2025 9:36 AM EDT Rajwinder Camara PA-C LABORATORY Final Result [facility] [address] [facility] [address] [place] [address], [place] * (ABNORMAL) COMPREHENSIVE METABOLIC PANEL (04/18/2025 9:28 AM EDT) [facility] Protein, Total 7.6 6.3 - 8.0 g/dL 04/18/2025 9:43 AM EDT [facility] Albumin 4.2 3.9 - 4.9 g/dL 04/18/2025 9:43 AM EDT [facility] Calcium, Total 9.2 8.5 - 10.2 mg/dL 04/18/2025 9:43 AM EDT [facility] Bilirubin, Total 0.2 0.2 - 1.3 mg/dL 04/18/2025 9:43 AM EDT [facility] Alkaline Phosphatase 81 38 - 113 U/L 04/18/2025 9:43 AM EDT [facility] AST 12(L) 14 - 40 U/L 04/18/2025 9:43 AM EDT [facility] ALT 10 10 - 54 U/L 04/18/2025 9:43 AM EDT [facility] Glucose 115(H) 74 - 99 mg/dL 04/18/2025 9:43 AM EDT [facility] Comment: The [place] Diabetes Association (ADA) provides guidance for cutoff [...] Standards of Medical Care in Diabetes 2016, [place] Diabetes Association. Diabetes Care. 2016.39(Suppl 1). BUN 33(H) 9 - 24 mg/dL 04/18/2025 9:43 AM EDT [facility] Creatinine 2.13(H) 0.73 - 1.22 mg/dL 04/18/2025 9:43 AM EDT [facility] Sodium 135(L) 136 - 144 mmol/L 04/18/2025 9:43 AM EDT [facility] Potassium 4.7 3.7 - 5.1 mmol/L 04/18/2025 9:43 AM EDT [facility] Chloride 103 98 - 107 mmol/L 04/18/2025 9:43 AM EDT [facility] CO2 22 22 - 30 mmol/L 04/18/2025 9:43 AM EDT [facility] Anion Gap 10 8 - 15 mmol/L 04/18/2025 9:43 AM EDT [facility] Estimated Glomerular Filtration Rate 34(L) >=60 mL/min/1. 73m 04/18/2025 9:43 AM EDT [facility] Comment:Estimated Glomerular Filtration Rate [...] BLOOD SPECIMEN / Unknown Venipuncture / Unknown 04/18/2025 9:28 AM EDT 04/18/2025 9:28 AM EDT us Rajwinder Camara PA-C LABORATORY Final Result [facility] [address] [place] [address] * (ABNORMAL) COMPLETE BLOOD COUNT AND DIFFERENTIAL (04/18/2025 9:20 AM EDT) WBC 9.89 3.70 - 11.00 k/uL 04/18/2025 9:23 AM EDT [facility] RBC 4.17(L) 4.20 - 6.00 m/uL 04/18/2025 9:23 AM EDT [facility] Hemoglobin 10.7(L) 13.0 - 17.0 g/dL 04/18/2025 9:23 AM EDT [facility] Hematocrit 33.6(L) 39.0 - 51.0 % 04/18/2025 9:23 AM EDT [facility] MCV 80.6 80.0 - 100.0 fL 04/18/2025 9:23 AM EDT [facility] MCH 25.7(L) 26.0 - 34.0 pg 04/18/2025 9:23 AM EDT [facility] MCHC 31.8 30.5 - 36.0 g/dL 04/18/2025 9:23 AM EDT [facility] RDW-CV 20.0(H) 11.5 - 15.0 % 04/18/2025 9:23 AM EDT [facility] Platelet Count 206 150 - 400 k/uL 04/18/2025 9:23 AM EDT [facility] MPV 9.2 9.0 - 12.7 fL 04/18/2025 9:23 AM EDT [facility] Neutrophils % 76.3 % 04/18/2025 9:23 AM EDT [facility] Abs Neut 7.55(H) 1.45 - 7.50 k/uL 04/18/2025 9:23 AM EDT [facility] Lymphocytes % 15.5 % 04/18/2025 9:23 AM EDT [facility] Abs Lymph 1.53 1.00 - 4.00 k/uL 04/18/2025 9:23 AM EDT [facility] Monocytes % 5.3 % 04/18/2025 9:23 AM EDT [facility] Abs Pacific 0.52 <0.87 k/uL 04/18/2025 9:23 AM EDT [facility] Eosinophils % 1.4 % 04/18/2025 9:23 AM EDT [facility] Abs Eosin 0.14 <0.46 k/uL 04/18/2025 9:23 AM EDT [facility] Basophils % 0.4 % 04/18/2025 9:23 AM EDT [facility] Abs Baso 0.04 <0.11 k/uL 04/18/2025 9:23 AM EDT [facility] Immature Granulocytes % 1.1 % 04/18/2025 9:23 AM EDT [facility] Abs Immature Gran 0.11(H) <0.10 k/uL 04/18/2025 9:23 AM EDT [facility] NRBC 0.0 /100 WBC 04/18/2025 9:23 AM EDT [facility] Absolute nRBC <0.01 <0.01 k/uL 04/18/2025 9:23 AM EDT [facility] Diff Type Auto 04/18/2025 9:23 AM EDT [facility] Blood BLOOD SPECIMEN / Unknown Venipuncture / Unknown 04/18/2025 9:20 AM EDT 04/18/2025 9:20 AM EDT Rajwinder Camara PA-C LABORATORY Final Result [facility] [address] [place] [address] documented in this encounter Visit Diagnoses Diagnosis Renal cell carcinoma of left kidney (HCC)- Primary High risk medication use Encounter for long-term (current) use of other medications Thyroid nodule Nontoxic uninodular goiter documented in this encounter Care Teams Personnel Training Officer Relationship Specialty Start Date End Date Jessica Murphy, DEEP [address] [place] [address] PCP - General Internal Medicine 02/07/25 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 RN [address] [place] [address] Specialty Supervisor Machine Workers Hematology/Oncology 03/28/25 Ernesto Phoenix MD [address] [place] [address] Physician Hematology/Oncology 03/28/25 [place] [address] [place] [address] Physician Hematology 04/09/25 Madelin Mc RN Specialty Supervisor Machine Workers Hematology/Oncology 04/09/25 Myrtle Holland LSW Anesthesiology Crna 04/11/[address] [place] [address] Nutrition 04/17/25 documented as of this encounter
--- OUTSIDE RECORDS SUMMARY | 2025-05-05 12:41 | XMS_ITS | Clinical Summary ---
Author Organization [facility] tem Address [id number] [address] [place] [address] Care Team Providers Care Rag Washer Name Role Phone Unavailable Primary Care Provider Unavailabl e Social History Tobacco Use Types Packs/Day Years Used Date Smoking Tobacco: Never Assessed Childcare Answer Date Recorded Childcare Unknown 03/13/2019 Employment Answer Date Recorded Employment Unknown 03/13/2019 Purpose - Life Answer Date Recorded Purpose and direction in life Unknown Sex and Gender Information Value Date Recorded Sex Assigned at Not on file Legal Sex Male 12:12 PM EDT Gender Identity Not on file Sexual Orientation Not on file Plan of Treatment Not on file Medical Devices Not on file
--- OUTSIDE RECORDS SUMMARY | 2025-05-05 12:41 | XMS_ITS | Clinical Summary ---
Author Organization [facility] Address [address] [place], [place] [id number] Care Team Providers Care Die Tripper Name Role Phone Jessica Murphy CNP Primary Care Provider + 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 RN Unavailable [phone] Enresto Phoenix MD Unavailable [phone] Gerald Young MD Unavailable [phone] Madelin Mc RN Unavailable Unavailable Myrtle Holland Unavailable Unavailable Yesica Calderon RD Unavailable Allergies Active Allergy Reactions Criticality Noted Date [...] hours as needed for pain. 40 tablet 3:04 PM EDT 02/29/20 25 Active metoprolol tartrate, short acting, (LOPRESSOR) 100 mg tablet Take 100 mg by mouth two times a day. Active docusate sodium (COLACE ORAL) Take 1 capsule by mouth two times a day. 03/14/20 25 Active allopurinol (ZYLOPRIM) 300 mg tablet Take 300 mg by mouth two times a day. 09/07/20 Active prochlorperazine (COMPAZINE) 10 mg tablet Take 1 tablet by mouth every 6 hours as needed. 100 tablet 2 5 9:20 AM EDT 03/28/20 Active ondansetron (ZOFRAN) 8 mg tablet Take 1 tablet by mouth every 8 hours as needed for nausea/vomi ting. 90 tablet 2 5 9:20 AM EDT 03/28/20 25 Active inulin (FIBER GUMMIES PO) Take 1 each by mouth two times a day. Active lenvatinib (LENVIMA) 10 mg/day (10 mg x 1) capsule Take 2 capsules by mouth once daily. 60 capsule 2 5 9:20 AM EDT 04/09/20 25 Active sennosides (SENNA LAX PO) Take by mouth. Active bisacodyl EC (DULCOLAX, BISACODYL,) 5 mg EC tablet Take 5 mg by mouth once daily as needed for constipatio n. 2024 Discontinued(D iscontinued by another Health Care Provider) cabozantinib (CABOMETYX) 40 mg tablet Take 1 tablet (40 mg) by mouth once daily. 30 tablet 1 04/02/20 25 2024 Discontinued cabozantinib (CABOMETYX) 40 mg tablet Take 1 tablet (40 mg) by mouth once daily. 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 60 capsule 2 04/09/20 25 2024 Discontinued Active Problems Problem Noted Date Diagnosed Date Secondary malignant neoplasm of retroperitoneal lymph nodes 04/09/2025 Renal cell carcinoma of left kidney 03/18/2025 [...] Encounters Date Type Department Care Team Description 04/23/2025 Patient [facility] PHARMACY HB-3 [address] [place] [address] Tamika Evans [facility] Free Drug application 04/21/2025 Telephone Hematology/Oncolog y 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); Renal cell carcinoma of left kidney (HCC) 04/18/2025 9:40 AM EDT Visit (SP) Office Hematology/Oncolog y [address] [facility] [place] [address] Ernesto Phoenix MD Renal cell carcinoma of left kidney (HCC) (Primary Dx) 04/18/2025 Social Work Hematology/Oncolog y [address] [facility] [place] [address] Myrtle Holland LSW 04/18/2025 Telephone Hematology/Oncolog y [address] [facility] [place] [address] Riya Villeda, RN Care Coordination (Lenvatinib Start Date) 04/18/2025 Education Hematology/Oncolog y [address] [facility] [place] [address] Riya Villeda, JUANA Oral Anti-cancer Agent Education (Lenvatinib) 04/18/2025 Travel 04/17/2025 1:30 PM EDT Education Nutrition Therapy [address] [place] [address] Yesica Calderon, DARYL Nutrition Assessment 04/16/2025 Travel 04/15/2025 Telephone Hematology/Oncolog y [address] [facility] [place] [address] Ernesto Phoenix MD Lab Orders 04/11/2025 Social Work Hematology/Oncolog y [address] [facility] [place] [address] Myrtle Holland LSW 04/10/2025 Telephone Hematology/Oncolog y [address] [facility] [place] [address] 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, RN Care Coordination (Treatment plan) 04/10/2025 Telephone [facility] [address] [place] [address] [place] [address] Isabela Kenny [facility] Medication Authorization (Lenvima) 04/09/2025 1:00 PM EDT Visit (SP) Office [place]ematology/[place] y [address] [place] [address] Gerald Young MD 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); Renal cell carcinoma of left kidney (HCC); High risk medication use; Thyroid nodule 04/09/2025 Telephone [place]ematology/[place] [address] [place] [address] Madelin Mc RN Nm Pet Request 04/09/2025 Telephone Hematology/Oncolog y [address] [facility] [place] [address] Ernesto Phoenix MD 04/09/2025 Patient [facility] PHARMACY HB-3 [address] [place] [address] Isabela Kenny [facility] Cabometyx Prescription 04/09/2025 Refill [facility] [address] [place] [phone] Isabela Kenny [facility] Refill Request 04/07/2025 1:20 PM EDT Visit (SP) Office Hematology/Oncolog y [address] [place] [address] [place] [address] Ernesto Phoenix MD Renal cell carcinoma of left kidney (HCC) (Primary Dx) 04/07/2025 1:00 PM EDT Nurse Visit Hematology/Oncolog y [address] [place] [address] [place] [address] 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 RN Renal cell carcinoma of left kidney (HCC) (Primary Dx) 04/07/2025 Telephone Cancer Appts [address] [place] [address] Ernesto Phoenix MD Referral Information 04/07/2025 Abstract Hematology/Oncolog y [address] [facility] [place] [address] Aminata Flor RN Research ([id number] Informed Consent) 04/07/2025 Travel 04/07/2025 Orders Only Hematology/Oncolog y [address] [place] [address] Ernesto Phoenix MD Renal cell carcinoma of left kidney (HCC) (Primary Dx) 04/02/2025 Telephone [facility] [address] [facility] [place] [address] Isabela Kenny, [facility] Medication Update (Cabometyx) 04/02/2025 Telephone Urology [address] [place] [address] Bing Arvizu MD Release back to work letter 04/02/2025 Telephone Hematology/Oncolog y [address] [place] [address] Ernesto Phoenix MD Nephrology Referral 04/02/2025 Orders Only Hematology/Oncolog y [address] [place] [address] Tamika Evans [facility] 04/02/2025 Telephone Hematology/Oncolog y [address] [place] [address] Ernesto Phoenix MD 04/01/2025 11:00 AM EDT Nurse Visit Hematology/Oncolog y [address] [place] [address] 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 RN Encounter for education (Primary Dx); Renal cell carcinoma of left kidney (HCC) 04/01/2025 8:45 AM EDT - 04/01/2025 11:59 PM EDT Hospital Encounter Radiology Pet CT [address] [place] [address] Renal cell carcinoma of left kidney (HCC) [C64.2] Discharge Disposition: Home 04/01/2025 Get Medical Advice Hematology/Oncolog y [address] [place] [address] Ernesto Phoenix MD Fmnd paper work 03/28/2025 Telephone Hematology/Oncolog y [address] [place] [address] Herlinda Mosquead, RN Care Coordination (Treatment prep) 03/20/2025 Orders Only Hematology/Oncolog y [address] [place] [address] Tamika Evans ollie 03/20/2025 Telephone Hematology/Oncolog y [address] [facility] [place] [address] Ernesto Phoenix MD 03/18/2025 4:00 PM EDT Visit (SP) Office Hematology/Oncolog y [address] [place] [address] Ernesto Phoenix MD Renal cell carcinoma of left kidney (HCC) (Primary Dx) 03/18/2025 Travel 03/12/2025 Results Follow-Up Urology [id number] [place], [place] [phone] Bing Arvizu MD 03/12/2025 Telephone Urology [address] [place], [place] [phone] Bing Arvizu MD 03/11/2025 Telephone [facility] Provider Adult [address] [place] [address] Tamanna Zhu, OCCUPATIONAL HEALTH AND SAFETY OFFICER.VASCULAR SONOGRAPHER 03/11/2025 Telephone [facility] Provider Adult [address] [place] [address] Aurea Rodriguez MD 03/10/2025 Patient Update [facility] Provider Adult [address] [place] [address] Tamanna Zhu OCCUPATIONAL HEALTH AND SAFETY OFFICER.VASCULAR SONOGRAPHER 03/10/2025 Travel 03/10/[address] [facility] [address] [place], [place] [id number] Tamanna Zhu OCCUPATIONAL HEALTH AND SAFETY OFFICER.VASCULAR SONOGRAPHER Hyperkalemia (Primary Dx) 03/05/2025 Telephone [address]rology [address] [place], [place] [phone] Bing Arvizu MD Patient Question 02/28/2025 Orders Only [facility] [address] [place] [address] Tamanna Zhu APRN.VASCULAR SONOGRAPHER ODALIS (acute kidney injury) (Primary Dx) 02/27/2025 7:44 AM EDT Anesthesia Event [facility] Operating Room [address] [place], [place] [phone] Giorgio Masterson DO 02/27/2025 7:30 AM EDT - 02/27/2025 11:00 AM EDT Surgery [facility] Operating Room [address] [place] [address] Bing Arvizu MD LAPAROSCOPIC HAND ASSISTED NEPHRECTOMY INCLUDING PARTIAL URETERECTOMY 02/27/2025 6:20 AM EDT - 02/28/2025 4:00 PM EDT Hospital Encounter [facility] PK[address]A [address] [place] [address] Bing Arvizu MD 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] Discharge Disposition: Home 02/27/2025 Travel 02/19/2025 9:00 AM EDT Infusion Center Hematology/Oncolog y [address] [facility] [place] [address] Intestinal malabsorption, unspecified type (HCC) (Primary Dx); Iron deficiency anemia, unspecified iron deficiency anemia type 02/17/2025 9:00 AM EDT Infusion Center Hematology/Oncolog y [address] [facility] [place] [address] Intestinal malabsorption, unspecified type (HCC) (Primary Dx); Iron deficiency anemia, unspecified iron deficiency anemia type 02/14/2025 Patient Msg Cancer Appts [address] [facility] [place] [address] Provider, [facility] Iron Infusion 02/10/2025 Orders Only Pre Anesthesia [address] [place] [address] Veronica Romero, OCCUPATIONAL HEALTH AND SAFETY OFFICER.VASCULAR SONOGRAPHER 02/10/2025 Telephone Pre Anesthesia [address] [place] [address] Veronica Romero, OCCUPATIONAL HEALTH AND SAFETY OFFICER.VASCULAR SONOGRAPHER Patient Update 02/10/2025 Orders Only Pre Anesthesia [address] [place] [address] Veronica Romero, OCCUPATIONAL HEALTH AND SAFETY OFFICER.VASCULAR SONOGRAPHER Iron deficiency anemia, unspecified iron deficiency anemia type (Primary Dx); Intestinal malabsorption, unspecified type (HCC) 02/10/2025 Telephone Pre Anesthesia [address] [place] [address] Veronica Romero, OCCUPATIONAL HEALTH AND SAFETY OFFICER.VASCULAR SONOGRAPHER Results 02/07/2025 1:40 PM EDT PAT Pre Anesthesia [address] [place] [address] 2, [facility] Giorgio Pre-op evaluation (Primary Dx); Depression, unspecified depression type; Type 2 diabetes mellitus without complication, unspecified whether 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 Last address used for calculation [address] [facility] 01/03/2025 Sex and Gender Information Value Date Recorded Sex Assigned at Male 03/02/2025 11:28 PM EDT Legal Sex Male 8:56 AM EDT Gender Identity Male 03/02/2025 11:28 PM EDT Sexual Orientation Straight 03/02/2025 11 :28 PM EDT Last Filed Vital Signs Vital Sign Reading Time Taken Comments Blood Pressure 124/58 04/18/2025 9:33 AM EDT Pulse 52 04/18/2025 9:33 AM EDT Temperature 36.3 C (97.3 F) 04/18/2025 9:33 AM EDT Respiratory Rate 16 04/18/2025 9:33 AM EDT Oxygen Saturation 97% 04/18/2025 9:3 3 AM EDT Inhaled Oxygen Concentration - - Weight 120.9 kg (266 lb 8.6 oz) 04/18/2025 9:33 AM EDT Height 177 cm (5' 9.69 ) 04/18/2025 9:3 3 AM EDT no shoes verified by 2 Body Mass Index 38.59 04/18/2025 9:33 AM EDT Plan of Treatment Upcoming Encounters Date Type Department Care Team (Latest Contact Info) Description 05/09/2025 9:00 AM EDT Office Visit [facility] [address] [facility] [place] [address] 3 week lab follow up chemotx Keytruda 05/09/2025 9:20 AM EDT Visit (SP) Office Hematology/Oncology [address] [facility] [place] [address] Ernesto Phoenix MD [address] [facility] [place] [address] 3 week lab follow up chemotx Keytruda 05/09/2025 9:45 AM EDT [facility] Hematology/Oncology [address] [facility] [place] [address] 3 week lab follow up chemotx Keytruda 06/06/2025 11:15 AM EDT Results Only [facility] [address] [facility] [place] [address] Young 06/20/2025 12:30 PM EDT Visit (SP) Office Hematology/Oncology [address] [place] [address] Gerald Young MD [address] [place] [address] follow up per pt req Health Maintenance Due Date Last Done Comments Diabetic Foot Exam 1969 Dilated Retinal Exam 1969 Urine Albumin:Creatinine Ratio 1969 Annual PCP Team Chronic Disease Visit 1977 Anxiety Screening 1977 Hepatitis C [...] (1 - Risk 60-74 years 1-dose series) 01/05 Advance Directive Discussion 10/02/2024 Influenza Vaccine (#1) 2025 HbA1C 08/10/2025 02/07/2025 Procedures Procedure Name Priority Date/Time Associated Diagnosis Comments CARDIAC 04/18/2025 11:43 AM EDT ECG COMPLETE 04/18/2025 10:47 AM EDT TSH BLD Routine 04/18/2025 9:36 AM EDT Renal cell carcinoma of left kidney (HCC) High risk medication use Thyroid nodule COMPREHENSIVE METABOLIC PANEL Routine 04/18/2025 9:28 AM EDT Renal cell carcinoma of left kidney (HCC) High risk medication use Thyroid nodule CBC + DIFF Routine 04/18/2025 9:20 AM EDT Renal cell carcinoma of left kidney (HCC) High risk medication use Thyroid nodule EXTERNAL IMAGING 04/08/2025 9:39 AM EDT [facility] Routine 2:28 PM EDT Renal cell carcinoma of left kidney (HCC) LD LACTATE DEHYDRO Routine 04/07/2025 2: 28 PM EDT Renal cell carcinoma of left kidney (HCC) COMPREHENSIVE METABOLIC PANEL Routine 04/07/2025 2:28 PM EDT Renal cell carcinoma of left kidney (HCC) CBC + DIFF Routine 04/07/2025 2:28 PM EDT Renal cell carcinoma of left kidney (HCC) [facility] Routine 04/07/2025 2 :28 PM EDT Renal cell carcinoma of left kidney (HCC) NM PET/CT SKULL-THIGH INITIAL Routine 04/01/2025 10:37 AM EDT Renal cell carcinoma of left kidney (HCC) GLUCOSE, BLOOD (POC) Routine 04/01/2025 8:55 AM EDT EXTERNAL LAB 03/13/2025 8:58 AM [...] PM EDT ARTERIAL BLOOD GAS, POC Routine 02/28/20 11:50 AM EDT SURGICAL PATHOLOGY Routine 02/27/2025 11:37 AM EDT Neoplasm of uncertain behavior of left kidney ARTERIAL BLOOD GASES STAT 02/27/2025 11:00 AM EDT ARTERIAL BLOOD GAS, POC Routine 02/28/20 10:39 AM EDT ARTERIAL BLOOD GASES STAT 02/27/2025 10:07 AM EDT ARTERIAL BLOOD GASES STAT 02/27/2025 9:07 AM EDT ARTERIAL BLOOD GAS, POC Routine 02/28/20 9:00 AM EDT TYPE + SCREEN Routine 02/27/2025 8:10 AM EDT Neoplasm of uncertain behavior of left kidney PERIPHERAL IV PLACEMENT Routine 02/28/20 8:05 AM EDT ARTL CATHJ/CANNULJ MNTR/TRANSFUSION SPX [...] 2 diabetes mellitus without complication, unspecified whether remote computer terminal operator insulin use (HCC) BPH with obstruction/lower urinary tract symptoms Hypertension, unspecified type ROSA M (obstructive sleep apnea) Class 2 obesity due to excess calories without serious comorbidity in adult, unspecified BMI from Last 3 Months Results * CARDIAC (04/18/2025 11:43 AM EDT) Narrative 04/18/2025 11:43 AM EDT Ordered by an unspecified provider. us [facility] Provider CARDIOLOGY Final Result * THYROID STIMULATING HORMONE (04/18/2025 9:36 AM EDT) TSH 2.410 0.270 - 4.200 mIU/L 04/18/2025 7:05 PM EDT [facility] Blood BLOOD SPECIMEN / Unknown Venipuncture / Unknown 04/18/2025 9:36 AM EDT 04/18/2025 9:36 AM EDT us Rajwinder Camara PA-C LABORATORY Final Result [facility] [address] [facility] [address] [address], * (ABNORMAL) COMPREHENSIVE METABOLIC PANEL (04/18/2025 9:28 AM EDT) Only the most recent of2 resultswithin the time period is included. [facility] Protein, Total 7.6 6.3 - 8.0 g/dL 04/18/2025 9:43 AM [facility] Albumin 4.2 3.9 - 4.9 g/dL 04/18/2025 9:43 AM T [facility] Calcium, Total 9.2 8.5 - 10.2 mg/dL 04/18/2025 9:43 AM [facility] Bilirubin, Total 0.2 0.2 - 1.3 mg/dL 04/18/2025 9:43 AM [facility] Alkaline Phosphatase 81 38 - 113 U/L 04/18/2025 9:43 AM [facility] AST 12(L) 14 - 40 U/L 04/18/2025 9:43 AM [facility] ALT 10 10 - 54 U/L 04/18/2025 9:43 AM [facility] Glucose 115(H) 74 - 99 mg/dL 04/18/2025 9:43 AM [facility] Comment: The [place] Diabetes [...] 9 - 24 mg/dL 04/18/2025 9:43 AM [facility] Creatinine 2.13(H) 0.73 - 1.22 mg/dL 04/18/2025 9:43 AM EDT [facility] Sodium 135(L) 136 - 144 mmol/L 04/18/2025 9:43 AM EDT [facility] Potassium 4.7 3.7 - 5.1 mmol/L 04/18/2025 9:43 AM EDT [facility] Chloride 103 98 - 107 mmol/L 04/18/2025 9:43 AM EDT [facility] CO2 22 22 - 30 mmol/L 04/18/2025 9:43 AM EDT [facility] Anion Gap 10 8 - 15 mmol/L 04/18/2025 9:43 AM EDT [facility] Estimated Glomerular Filtration Rate 34(L) >=60 mL/min/1. 73m 04/18/2025 9:43 AM EDT [facility] Comment:Estimated Glomerular Filtration Rate (eGFR) [...] 9:28 AM EDT 04/18/2025 9:28 AM EDT Rajwinder Camara PA-C LABORATORY Final Result [facility] [address] [place] [address] * (ABNORMAL) COMPLETE BLOOD COUNT AND DIFFERENTIAL (04/18/2025 9:20 AM EDT) Only the most recent of2 resultswithin the time period is included. WBC 9.89 3.70 - 11.00 k/uL 04/18/2025 9:23 AM EDT [facility] RBC 4.17(L) 4.20 - 6.00 m/uL 04/18/2025 9:23 AM EDT [facility] Hemoglobin 10.7(L) 13.0 - 17.0 g/dL 04/18/2025 9:23 AM EDT [facility] Hematocrit 33.6(L) 39.0 - 51.0 % 04/18/2025 9:23 AM EDT [facility] MCV 80.6 80.0 - 100.0 fL 04/18/2025 9:23 AM EDT [facility] MCH 25.7(L) 26.0 - 34.0 pg 04/18/2025 9:23 AM EDT [facility] MCHC 31.8 30.5 - 36.0 g/dL 04/18/2025 9:23 AM T [facility] RDW-CV 20.0(H) 11.5 - 15.0 % 04/18/2025 9:23 AM EDT [facility] Platelet Count 206 150 - 400 k/uL 04/18/2025 9:23 AM EDT [facility] MPV 9.2 9.0 - 12.7 fL 04/18/2025 9:23 AM EDT [facility] Neutrophils % 76.3 % 04/18/2025 9:23 AM EDT [facility] Abs Neut 7.55(H) 1.45 - 7.50 k/uL 04/18/2025 9:23 AM EDT [facility] Lymphocytes % 15.5 % 04/18/2025 9:23 AM EDT [facility] Abs Lymph 1.53 1.00 - 4.00 k/uL 04/18/2025 9:23 AM EDT [facility] Monocytes % 5.3 % 04/18/2025 9:23 AM EDT [facility] Abs [place] 0.52 <0.87 k/uL 04/18/2025 9:23 AM EDT [facility] Eosinophils % 1.4 % 04/18/2025 9:23 AM EDT [facility] Abs Eosin 0.14 <0.46 k/uL 04/18/2025 9:23 AM EDT [facility] Basophils % 0.4 % 04/18/2025 9:23 AM EDT [facility] Abs Baso 0.04 <0.11 k/uL 04/18/2025 9:23 AM EDT [facility] Immature Granulocytes % 1.1 % 04/18/2025 9:23 AM EDT [facility] Abs Immature Gran 0.11(H) <0.10 k/uL 04/18/2025 9:23 AM EDT [facility] NRBC 0.0 /100 WBC 04/18/2025 9:23 AM EDT [facility] Absolute nRBC <0.01 <0.01 k/uL 04/18/2025 9:23 AM EDT [facility] Diff Type Auto 04/18/2025 9:23 AM EDT [facility] Blood BLOOD SPECIMEN / Unknown Venipuncture / Unknown 04/18/2025 9:20 AM EDT 04/18/2025 9:20 AM EDT us Rajwinder Camara PA-C LABORATORY Final Result [facility] [address] [place] [address] * EXTERNAL IMAGING (04/08/2025 9:39 AM EDT) Anatomical Region Laterality Modality Other us External Provider PA-C RADIOLOGY Final Res ult * [facility] (04/07/2025 2:28 PM EDT) [facility] Result Status See Report for Final Results FMI Order Test ID: [id number] 04/18/2025 9:53 AM EDT [facility] Microsatellite Status MSI-High Not Detected 04/18/2025 9:53 AM EDT [facility] Blood Tumor Mutational [place] 3 Muts/Mb 04/18/2025 9:53 AM EDT [facility] ctDNA Tumor Fraction Low (< 1.0%) 04/18/2025 9:53 AM EDT [facility] Blood Venipuncture / Unknown 04/07/2025 2:28 PM EDT 04/07/2025 2:28 PM EDT Narrative This result has genomic variants that were not included in this document. Ernesto Phoenix MD LABORATORY Final Res ult [facility] [address] [place] [address], * (ABNORMAL) LACTATE DEHYDROGENASE (04/07/2025 2:28 PM EDT) LD 116(L) 135 - 225 U/L 04/07/2025 3:00 PM EDT [facility] Blood BLOOD SPECIMEN / Unknown Venipuncture / Unknown 04/07/2025 2:28 PM EDT 04/07/2025 2:28 PM EDT Ernesto Phoenix MD LABORATORY Final Res ult [facility] [address] [place] [address] * [facility] 1 (04/07/2025 2:28 PM EDT) Test 1 04/14/2025 3:02 PM EDT [facility] Comment:Research Test Results 1 04/14/2025 3:02 PM EDT [facility] Comment:Research Referral Lab 1 04/14/2025 3:02 PM EDT [facility] Comment:Research Blood VENOUS BLOOD SPECIMEN / Unknown Venipuncture / Unknown 04/07/2025 2:28 PM EDT 04/07/2025 2:28 PM EDT us Ernesto Phoenix MD LABORATORY Final Res ult [facility] [address] [facility] [address] [place] [address], [place] * NM PET/CT SKULL-THIGH INITIAL (04/01/2025 10:37 AM EDT) Anatomical Region Laterality Modality Nuclear Medicine , Nuclear Medicine 04/01/2025 10:3 7 AM EDT Narrative 04/01/2025 3:37 PM EDT * * *Final Report* * * DATE OF EXAM: Apr 01 2025 10:37AM NRN 0060 - NM PET/CT SKULL-THIGH INIT / PROCEDURE REASON: Renal cell carcinoma of left kidney (HCC) * * * * Physician Interpretation * * * * RESULT: EXAMINATION: BODY FDG PET-CT CLINICAL HISTORY: Renal cell carcinoma of left kidney. Status post left radical nephrectomy and retroperitoneal lymph node dissection 02/27/2025 EXAM CATEGORY: Initial treatment strategy. TECHNIQUE: Radiopharmaceutical was administered intravenously followed by PET imaging from the eyes to thighs. Free breathing, low dose CT of the same body region was acquired without IV contrast for attenuation correction and anatomic localization. Unenhanced imaging is limited for the evaluation of some pathology and the acquired CT was not designed to produce diagnostic CT scan quality. Physiologic/non-pathologic uptake in some body regions could confound or obscure some pathology. * CT Dose-Length Product (DLP): 417 mGy*cm * CT Dose Reduction Employed: Yes * Blood glucose: 104 mg/dL * Injection site: Right Forearm-Antecubital * Injected activity: 16.6 mCi * Uptake Time: 60 minutes * Radiopharmaceutical: [id number] (FDG) COMPARISON: No previous FDG PET/CT available CORRELATION: [facility] [facility] abdomen/pelvis 12/14/2024 RESULT: REFERENCES: FDG uptake is used as a surrogate marker for glucose metabolism. All reported standardized uptake values represent maximum SUV (SUVmax) per body weight, unless otherwise specified. SUV reference values, as follows: * Blood Pool (Descending Aorta): SUVmax 2.2 * Background Liver: SUVmax 3.5; SUVmean 2.1 Localizer Images: No additional findings. HEAD AND NECK: Head: No radiotracer avid lesion or mass effect in the imaged intracranial compartment. Aerodigestive Tract: No radiotracer avid lesion. Lymph Nodes: No radiotracer avid lymphadenopathy. Neck Soft Tissues: Focal uptake localizing to the inferior right thyroid lobe measures SUV max 3.7. CHEST: Lungs & Pleura: No radiotracer avid mass, nodule, or consolidation. No pleural effusion. Lymph Nodes: No radiotracer avid lymphadenopathy. Mediastinum: No radiotracer avid mass. Cardiovascular: Blood pool activity. No pericardial effusion. Normal heart size. Coronary artery calcifications. Chest Wall: Foci of uptake along the posterior/inferior left chest wall are likely postsurgical/inflammatory. Bilateral gynecomastia. ABDOMEN AND PELVIS: Hepatobiliary: No radiotracer avid lesion. Spleen: No radiotracer avid lesion. No splenomegaly. Pancreas: No radiotracer avid lesion. Adrenals: No radiotracer avid nodule. Urinary Tract: Postsurgical changes of left nephrectomy. There is a centrally photopenic, peripherally mildly metabolically active probable postoperative seroma within the nephrectomy bed and tracking inferiorly anterior to the left psoas muscle. For example, the component at the nephrectomy bed measures 9.0 x 4.6 cm in axial dimension with peripheral activity measuring SUV max 3.4 and a component anterior to the left psoas measures 3.5 x 3.0 cm in axial dimension with peripheral activity measuring SUV max 3.4. Photopenic, presumed right renal cysts. GI Tract: No radiotracer avid lesion. No bowel dilation. Peritoneum: No radiotracer avid lesion. No ascites. Lymph Nodes: A tracer avid left para-aortic node measures SUV max 6.4, 1.7 x 1.5 cm (4:208). Vasculature: Blood pool activity. Vascular calcifications without an abdominal aortic aneurysm. Pelvic Organs: Suboptimal PET evaluation of this body region given patient motion between the PET and CT acquisitions. No radiotracer avid lesion. MUSCULOSKELETAL: Bones: No radiotracer avid lesion. Degenerative changes. Soft Tissues: No radiotracer avid lesion. IMPRESSION PRIMARY DISEASE SITE: * Left nephrectomy. There is a centrally photopenic, peripherally mildly metabolically active probable postoperative seroma within the nephrectomy bed and tracking inferiorly anterior to the left psoas muscle. Clinical correlation is recommended if there is concern for superimposed infectious/inflammatory process. Attention on follow-up recommended to ensure resolution. LÁZARO DISEASE: * Metabolically active enlarged left para-aortic retroperitoneal metastatic node. METASTATIC DISEASE: * No metabolically active distant metastases. ADDITIONAL FINDINGS: * Focal metabolic activity at the inferior right thyroid lobe. Further characterization with thyroid ultrasound recommended. * Foci of uptake along the posterior/inferior left chest wall, likely postsurgical/inflammatory. Transcribe Date/Time: Apr 01 2025 2:38P Dictated by: IRENE POWER MD This examination was interpreted and the report reviewed and electronically signed by: IRENE POWER MD on Apr 01 2025 3:34PM EST Thank you for allowing us to participate in the care of your patient. Should there be any questions regarding this interpretation, please call [phone]. If you are unable to reach us at the number above, please feel free to contact [facility] at [phone]. Procedure Note Provider, [facility] - 04/01/2025 * * *Final Report* * * DATE OF EXAM: Apr 01 2025 10:37AM NRN [id number] - NM PET/CT SKULL-THIGH INIT / PROCEDURE REASON: Renal cell carcinoma of left kidney (HCC) * * * * Physician Interpretation * * * * RESULT: EXAMINATION: BODY FDG PET-CT CLINICAL HISTORY: Renal cell carcinoma of left kidney. Status post left radical nephrectomy and retroperitoneal lymph node dissection 02/27/2025 EXAM CATEGORY: Initial treatment strategy. TECHNIQUE: Radiopharmaceutical was administered intravenously followed by PET imaging from the eyes to thighs. Free breathing, low dose CT of the same body region was acquired without IV contrast for attenuation correction and anatomic localization. Unenhanced imaging is limited for the evaluation of some pathology and the acquired CT was not designed to produce diagnostic CT scan quality. Physiologic/non-pathologic uptake in some body regions could confound or obscure some pathology. * CT Dose-Length Product (DLP): 417 mGy*cm * CT Dose Reduction Employed: Yes * Blood glucose: 104 mg/dL * Injection site: Right Forearm-Antecubital * Injected activity: 16.6 mCi * Uptake Time: 60 minutes * Radiopharmaceutical: T56-Pgfpjsyqgnlcjqqkib (FDG) COMPARISON: No previous FDG PET/CT available CORRELATION: OS CT abdomen/pelvis 12/14/2024 RESULT: REFERENCES: FDG uptake is used as a surrogate marker for glucose metabolism. All reported standardized uptake values represent maximum SUV (SUVmax) per body weight, unless otherwise specified. SUV reference values, as follows: * Blood Pool (Descending Aorta): SUVmax 2.2 * Background Liver: SUVmax 3.5; SUVmean 2.1 Localizer Images: No additional findings. HEAD AND NECK: Head: No radiotracer avid lesion or mass effect in the imaged intracranial compartment. Aerodigestive Tract: No radiotracer avid lesion. Lymph Nodes: No radiotracer avid lymphadenopathy. Neck Soft Tissues: Focal uptake localizing to the inferior right thyroid lobe measures SUV max 3.7. CHEST: Lungs & Pleura: No radiotracer avid mass, nodule, or consolidation. No pleural effusion. Lymph Nodes: No radiotracer avid lymphadenopathy. Mediastinum: No radiotracer avid mass. Cardiovascular: Blood pool activity. No pericardial effusion. Normal heart size. Coronary artery calcifications. Chest Wall: Foci of uptake along the posterior/inferior left chest wall are likely postsurgical/inflammatory. Bilateral gynecomastia. ABDOMEN AND PELVIS: Hepatobiliary: No radiotracer avid lesion. Spleen: No radiotracer avid lesion. No splenomegaly. Pancreas: No radiotracer avid lesion. Adrenals: No radiotracer avid nodule. Urinary Tract: Postsurgical changes of left nephrectomy. There is a centrally photopenic, peripherally mildly metabolically active probable postoperative seroma within the nephrectomy bed and tracking inferiorly anterior to the left psoas muscle. For example, the component at the nephrectomy bed measures 9.0 x 4.6 cm in axial dimension with peripheral activity measuring SUV max 3.4 and a component anterior to the left psoas measures 3.5 x 3.0 cm in axial dimension with peripheral activity measuring SUV max 3.4. Photopenic, presumed right renal cysts. GI Tract: No radiotracer avid lesion. No bowel dilation. Peritoneum: No radiotracer avid lesion. No ascites. Lymph Nodes: A tracer avid left para-aortic node measures SUV max 6.4, 1.7 x 1.5 cm (4:208). Vasculature: Blood pool activity. Vascular calcifications without an abdominal aortic aneurysm. Pelvic Organs: Suboptimal PET evaluation of this body region given patient motion between the PET and CT acquisitions. No radiotracer avid lesion. MUSCULOSKELETAL: Bones: No radiotracer avid lesion. Degenerative changes. Soft Tissues: No radiotracer avid lesion. IMPRESSION PRIMARY DISEASE SITE: * Left nephrectomy. There is a centrally photopenic, peripherally mildly metabolically active probable postoperative seroma within the nephrectomy bed and tracking inferiorly anterior to the left psoas muscle. Clinical correlation is recommended if there is concern for superimposed infectious/inflammatory process. Attention on follow-up recommended to ensure resolution. LÁZARO DISEASE: * Metabolically active enlarged left para-aortic retroperitoneal metastatic node. METASTATIC DISEASE: * No metabolically active distant metastases. ADDITIONAL FINDINGS: * Focal metabolic activity at the inferior right thyroid lobe. Further characterization with thyroid ultrasound recommended. * Foci of uptake along the posterior/inferior left chest wall, likely postsurgical/inflammatory. Transcribe Date/Time: Apr 01 2025 2:38P Dictated by: IRENE POWER MD This examination was interpreted and the report reviewed and electronically signed by: IRENE POWER MD on Apr 01 2025 3:34PM EST Thank you for allowing us to participate in the care of your patient. Should there be any questions regarding this interpretation, please call [phone]. If you are unable to reach us at the number above, please feel free to contact [facility] at [phone]. us Ernesto Phoenix MD NM-PAMA Final Res ult * (ABNORMAL) GLUCOSE, BLOOD (POC) (04/01/2025 8:55 AM EDT) Only the most recent of11 resultswithin the time period is included. Pathologist [facility] Glucose, Point of Care 104(A) 74 - 99 mg/dL [facility] Comment: Location:[facility], [address] [place] [address] , [place], [place], [address] The Accu-Chek Inform II glucose meter has [...] blood gas instrument) in the above situations. 04/01/2025 8:55 AM EDT us [facility] Provider POC TESTING Final Result [facility] POINT OF CARE [address] [place] [place], [place] * EXTERNAL LAB (03/13/2025 8:58 AM EDT) [...] resultswithin the time period is included. Pathologist [facility] Albumin 3.9 3.9 - 4.9 g/dL 03/11/2025 3:52 AM EDT [facility] Calcium, Total 9.8 8.5 - 10.2 mg/dL 03/11/2025 3:52 AM EDT [facility] Phosphorus 3.7 2.7 - 4.8 mg/dL 03/11/2025 3:52 AM EDT [facility] Glucose 94 74 - 99 mg/dL 03/11/2025 3:52 AM EDT [facility] Comment: The [place] [employer] Association [...] 9 - 24 mg/dL 03/11/2025 3:52 AM T [facility] Creatinine 2.16(H) 0.73 - 1.22 mg/dL 03/11/2025 3:52 AM EDT [facility] Sodium 134(L) 136 - 144 mmol/L 03/11/2025 3:52 AM EDT [facility] Potassium 6.2(HH) 3.7 - 5.1 mmol/L 03/11/2025 3:52 AM EDT [facility] Chloride 100 98 - 107 mmol/L 03/11/2025 3:52 AM EDT [facility] CO2 19(L) 22 - 30 mmol/L 03/11/2025 3:52 AM EDT [facility] Anion Gap 15 8 - 15 mmol/L 03/11/2025 3:52 AM T [facility] Estimated Glomerular Filtration Rate 33(L) >=60 mL/min/1. 73m 03/11/2025 3:52 AM [facility] Comment:Estimated Glomerular Filtration Rate [...] 03/10/2025 2:39 PM EDT us Tamanna Zhu OCCUPATIONAL HEALTH AND SAFETY OFFICER.VASCULAR SONOGRAPHER LABORATORY Final Resul t [facility] [address] [facility] [address] [place] [address], [place] * (ABNORMAL) BASIC METABOLIC PANEL (02/28/2025 10:43 AM EDT) Only the most recent of3 resultswithin the time period is included. Glucose 131(H) 74 - 99 mg/dL 02/28/2025 12:03 PM EDT [facility] Comment: The [place] Diabetes [employer] (ADA) provides [...] 9 - 24 mg/dL 02/28/2025 12:03 PM EDT [facility] Creatinine 2.00(H) 0.73 - 1.22 mg/dL 02/28/2025 12:03 PM EDT [facility] Sodium 135(L) 136 - 144 mmol/L 02/28/2025 12:03 PM EDT [facility] Potassium 4.6 3.7 - 5.1 mmol/L 02/28/2025 12:03 PM EDT [facility] Chloride 99 98 - 107 mmol/L 02/28/2025 12:03 PM EDT [facility] CO2 21(L) 22 - 30 mmol/L 02/28/2025 12:03 PM EDT [facility] Anion Gap 15 8 - 15 mmol/L 02/28/2025 12:03 PM EDT [facility] Calcium, Total 8.9 8.5 - 10.2 mg/dL 02/28/2025 12:03 PM EDT [facility] Estimated Glomerular Filtration Rate 36(L) >=60 mL/min/1. 73m 02/28/2025 12:03 PM EDT [facility] Comment:Estimated Glomerular Filtration Rate (eGFR) is [...] Bing Arvizu MD LABORATORY Final Resul t [facility] [address] [place] [address], * (ABNORMAL) COMPLETE BLOOD COUNT (02/28/2025 5:53 AM EDT) Only the most recent of2 resultswithin the time period is included. WBC 12.56(H) 3.70 - 11.00 k/uL 02/28/2025 6:19 [facility] RBC 3.84(L) 4.20 - 6.00 m/uL 02/28/2025 6:19 AM [facility] Hemoglobin 9.2(L) 13.0 - 17.0 g/dL 02/28/2025 6:19 AM [facility] Hematocrit 30.1(L) 39.0 - 51.0 % 02/28/2025 6:19 AM [facility] MCV 78.4(L) 80.0 - 100.0 fL 02/28/2025 6:19 AM [facility] MCH 24.0(L) 26.0 - 34.0 pg 02/28/2025 6:19 AM [facility] MCHC 30.6 30.5 - 36.0 g/dL 02/28/2025 6:19 AM [facility] RDW-CV 16.5(H) 11.5 - 15.0 % 02/28/2025 6:19 AM [facility] Platelet Count 243 150 - 400 k/uL 02/28/2025 6:19 AM EDT [facility] MPV 9.1 9.0 - 12.7 fL 02/28/2025 6:19 AM EDT [facility] Absolute nRBC <0.01 <0.01 k/uL 02/28/2025 6:19 AM EDT [facility] Blood BLOOD SPECIMEN / Unknown Venipuncture / Unknown 02/28/2025 5:53 AM EDT 02/28/2025 6:06 AM EDT us Bing Arvizu MD LABORATORY Final Resul t [facility] [address] [place] [address], * (ABNORMAL) ARTERIAL BLOOD GAS, POC (02/27/2025 11:50 AM EDT) Only the most recent of3 resultswithin the time period is included. pH, Arterial 7.351 7.350 - 7.450 pH units [facility] pCO2, Arterial 39.9 35.0 - 45.0 mmHg [facility] pO2, Arterial 161(A) 80 - 105 mmHg [facility] Base Excess (POCT) -3(A) -2 - 3 mmol/L [facility] HCO3 (POCT) 22.1 22.0 - 26.0 mmol/L [facility] sO2 (POCT) 99(A) 95 - 98 % [facility] Sodium (POCT) 133(A) 138 - 146 mmol/L [facility] Potassium (POCT) 5.4(A) 3.5 - 4.9 mmol/L [facility] Glucose (POCT) 179(A) 74 - 99 mg/dL [facility] Ionized Ca (POCT) 1.18 1.12 - 1.32 mmol/L [facility] Hemoglobin (POCT) 10.5(A) 12.0 - 17.0 g/dL [facility] Hematocrit (POCT) 31(A) 38 - 51 %PCV [facility] 02/27/2025 11:5 0 AM EDT Narrative [facility] POINT OF CARE - 02/27/2025 11:50 AM EDT Location:[facility], [address] [place] [address], [address] us Bing Arvizu MD POC TESTING Final Resul t [facility] POINT OF CARE Perfusion [address] * SURGICAL PATHOLOGY (02/27/2025 11:37 AM EDT) Case Report Surgical Pathology Report Case: [id number] Authorizing Provider: Bing Arvizu MD Collected: 02/27/2025 11:37 AM Ordering Location: [facility] Received: 02/27/2025 12:13 PM Operating Room Pathologist: Shasta Middleton MD Specimens: A) - Lymph Node (Specify Site in Comments), para aortic lymph nodes B) - Kidney, Left, Resection, radical nephrectomy 03/11/2025 1:56 PM EDT [facility] FINAL DIAGNOSIS A. Lymph nodes, [...] sarcomatoid differentiation in one hilar lymph node (1/1). - Portion of benign adrenal gland. 03/11/2025 1:56 PM EDT [facility] at 1356 EDT Diagnosis Comment [...] the tumor classification. 03/11/2025 1:56 PM EDT [facility] Block for additional Biomarkers/Mo lecular studies Lázaro metastasis: B16 Kidney primary: B6, B20 03/11/2025 1:56 PM EDT [facility] Synoptic Report KIDNEY: Nephrectomy KIDNEY: [...] Kidney: Cortical cysts 03/11/2025 1:56 PM EDT [facility] Gross Description A. Lymph Node [...] 2025 2:55 PM Gross examination performed at [facility], [address] [place] [address] B. Kidney, Left, Resection Received in formalin [...] medullary tissue is present. Photographs are taken. Warper Creeler sections are submitted as follows: B1 ureter [...] adjacent dissecting area from superior pole B12 community health program representative cyst from superior and mid pole B13-B14 adrenal gland with disrupted and nodular areas B15-B16 hilar lymph node KSZ February 28, 2025 Gross examination performed at [address] [address] Additional sections of mass are submitted in cassettes B17-B22. 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] 03/11/2025 1:56 PM EDT [facility] Performing Lab Diagnostic interpretation performed at: [facility], [address] [place] [address], [place] [address] CLIA# [id number] Home Health Care Social Worker: Zack Baez MD 03/11/2025 1:56 PM EDT [facility] Disclaimer Laboratory Developed Test (LDT) Disclaimer: Performance characteristics of immunohistochemical, immunofluorescent, and chromogenic in-situ hybridization tests have been determined by the performing laboratory within [facility]'s [facility] Pathology and Laboratory Medicine Department ([facility], [facility], [facility], [facility], [facility], [facility], or [facility]) in a manner consistent with CLIA requirements. One or more of these tests may not have been cleared or approved by the FDA. [facility] is regulated under CLIA as qualified to perform high-complexity testing. These tests are used for clinical purposes. These should not be regarded as investigational or for research. Positive and negative controls stain appropriately. 03/11/2025 1:56 PM EDT [facility] Tissue LYMPH NODE ASPIRATE / Unknown [...] Arvizu MD SURGICAL PATHOLOGY Final Re sult [facility] [address] [facility] [address] [place] [address], [facility] [address] [place] [address], * (ABNORMAL) ARTERIAL BLOOD GASES (02/27/2025 11:00 AM EDT) Only the most recent of3 resultswithin the time period is included. pH, Arterial 7.35 7.35 - 7.45 02/27/2025 11:18 AM EDT [facility] pH, Temp Corrected, Arterial 02/27/2025 11:18 AM EDT [facility] pCO2, Arterial 41 36 - 46 mm Hg 02/27/2025 11:18 AM EDT [facility] pCO2, Temp Corrected, Arterial 02/27/2025 11:18 AM EDT [facility] pO2, Arterial 179(H) 85 - 95 mm Hg 02/27/2025 11:18 AM EDT [facility] pO2, Temp Corrected, Arterial 02/27/2025 11:18 AM EDT [facility] Bicarbonate, Arterial 22 22 - 26 mmol/L 02/27/2025 11:18 AM EDT [facility] O2 Saturation, Arterial 100(H) 95 - 98 % 02/27/2025 11:18 AM EDT [facility] Base Deficit, Arterial -3(L) -2 - 0 mmol/L 02/27/2025 11:18 [facility] Oxyhemoglobin, Arterial 97 95 - 98 % 02/27/2025 11:18 AM [facility] Carboxyhemoglo bin, Arterial 1.4 0.0 - 2.0 % 02/27/2025 11:18 AM [facility] Comment:Carboxyhemoglobin Re ference Range for Smokers: 2.0-8.0% Methemoglobin, Arterial 0.8 0.0 - 1.5 % 02/27/2025 11:18 AM [facility] Sodium, Whole Blood 135(L) 136 - 144 mmol/L 02/27/2025 11:18 AM [facility] Potassium, Whole Blood 5.5(H) 3.5 - 5.0 mmol/L 02/27/2025 11:18 AM [facility] Chloride, Whole Blood 103 97 - 105 mmol/L 02/27/2025 11:18 AM [facility] Calcium Ionized, Whole Blood 1.24 1.08 - 1.30 mmol/L 02/27/2025 11:18 AM [facility] Calcium Ionized, pH corrected 1.20 1.08 - 1.30 mmol/L 02/27/2025 11:18 AM [facility] Glucose, Whole Blood 190(H) 60 - 105 mg/dL 02/27/2025 11:18 AM [facility] Lactate 2.7(H) 0.5 - 2.2 mmol/L 02/27/2025 11:18 AM [facility] Hemoglobin, Whole Blood 11.0(L) 13.0 - 17.0 g/dL 02/27/2025 11:18 AM [facility] Hematocrit, Whole Blood 33.9(L) 39.0 - 51.0 % 02/27/2025 11:18 AM [facility] Blood, Arterial BLOOD SPECIMEN / Unknown 02/27/2025 11:00 AM EDT 02/27/2025 11:04 AM EDT us Giorgio Masterson DO BLOOD GASES Final Resul t [facility] [address] [place] [address], * TYPE + SCREEN (02/27/2025 8:10 AM EDT) ABO O 02/27/2025 9:31 AM EDT [facility] Rh(D) Positive 02/27/2025 9:31 AM EDT [facility] Antibody Screen Negative 02/27/2025 9:31 AM EDT [facility] Type and Screen Expiration 03/02/2025 23:59 02/27/2025 9:31 AM EDT [facility] Blood BLOOD SPECIMEN / Unknown 02/27/2025 8:10 AM EDT 02/27/2025 8:22 AM EDT Comment:Pre-op diagnosis: 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] us Bing Arvizu MD BLOOD BANK Final Resul t [facility] [address] [place] [address], * PERIPHERAL IV PLACEMENT (02/27/2025 8:05 AM EDT) Narrative Ciera Honeycutt, OCCUPATIONAL HEALTH AND SAFETY OFFICER.ACUTE CARE OCCUPATIONAL THERAPIST - 02/27/2025 8:05 AM EDT Ciera Honeycutt, OCCUPATIONAL HEALTH AND SAFETY OFFICER.ACUTE CARE OCCUPATIONAL THERAPIST 02/27/2025 9:12 AM PIV General Information Procedure [...] (02/27/2025 7:56 AM EDT) Narrative Ciera Honeycutt APRN.ACUTE CARE OCCUPATIONAL THERAPIST - 02/27/2025 7:56 AM EDT Ciera Honeycutt APRN.ACUTE CARE OCCUPATIONAL THERAPIST 02/27/2025 9:12 AM Airway General Information Procedure Start Time/Medication Administration: 02/27/2025 7:56 AM Procedure End Time: 02/27/2025 7:59 AM Patient location during procedure: OR Patient identity confirmed: arm band, care steam cleaner and patient Staffing Anesthesiologist: Giorgio Masterson DO ACUTE CARE OCCUPATIONAL THERAPIST: Ciera Honeycutt APRN.ACUTE CARE OCCUPATIONAL THERAPIST SRNA: Tianna Diego SRNA Performed by: ELICIA [...] - 186 ug/dL 02/08/2025 2:23 PM EDT [facility] TIBC 247 232 - 386 ug/dL 02/08/2025 2:23 PM EDT [facility] Transferrin Saturation 9.3(L) 15.0 - 57.0 % 02/08/2025 2:23 PM EDT [facility] Blood BLOOD SPECIMEN / Unknown Venipuncture / Unknown 02/07/2025 2:41 PM EDT 02/07/2025 2:42 PM EDT us Veronica Romero APRN.VASCULAR SONOGRAPHER LABORATORY Fin al Result [facility] [address] [place] [address], * HEMOGLOBIN A1C (02/07/2025 2:41 PM EDT) Hemoglobin A1C 5.4 4.3 - 5.6 % 02/08/2025 4:25 PM EDT [facility] Comment:[place] Diabetes As sociation guidelines indicate that patients with HgbA1c in the range 5.7-6.4% are at increased risk for development of diabetes, and intervention by lifestyle modification may be beneficial. HgbA1c greater or equal to 6.5% is considered diagnostic of diabetes. Estimated Average Glucose 108 mg/dL 02/08/2025 4:25 PM EDT [facility] Comment:eAG: (Estimated aver age glucose) is a calculated value from HgbA1c and is community health program representative of the average blood glucose level in the last 2-3 month period. Blood BLOOD SPECIMEN / Unknown Venipuncture / Unknown 02/07/2025 2:41 PM EDT 02/07/2025 2:42 PM EDT Veronica Romero APRN.CNP LABORATORY Fin al Result Performing Organization Address City/[facility]/ZIP Co de Phone Number [facility] [facility] [address] [place] [address], [place] * FERRITIN (02/07/2025 2:41 PM EDT) Pathologist [facility] Ferritin 131.0 30.3 - 565.7 ng/mL 02/08/2025 2:34 PM EDT [facility] Blood BLOOD SPECIMEN / Unknown Venipuncture / Unknown 02/07/2025 2:41 PM EDT 02/07/2025 2:42 PM EDT Veronica Romero APRN.CNP LABORATORY Fin al Result Performing Organization Address [facility] Co de Phone Number [facility] [address] [place] [address], [place] * ECG COMPLETE (02/07/2025 1:03 PM [...] ms [facility] Calculated P [place] 50 degrees [facility] Calculated R [place] 44 degrees [facility] Calculated T [place] 55 degrees [facility] 02/07/2025 1:03 PM EDT Impressions [facility] - 02/26/2025 3:20 PM EDT SINUS BRADYCARDIA OTHERWISE NORMAL ECG Confirmed by VLASTARIS MD, FRANC ([id number]) on 02/26/2025 3:20:12 PM Narrative [facility] - 02/26/2025 3:20 PM EDT NAME : HARMAN LE PID : [id number] : 1960 Gender : Male Race : ORD : [id number] Procedure Date : Feb 07 2025 13:03:37 Edit Date : Feb 26 2025 15:20:17 Diagnosis: SINUS BRADYCARDIA OTHERWISE NORMAL ECG Confirmed by FRANC SHIPMAN MD ([id number]) on 02/26/2025 3:20:12 PM Test Reason : Z01.818 Pre-op evaluation Location : 145 : [place]ARD Overread By : FRANC SHIPMAN MD Edited By : FRANC SHIPMAN MD Referred By : BING ARVIZU Acquired by : am, Veronica Romero OCCUPATIONAL HEALTH AND SAFETY OFFICER.VASCULAR SONOGRAPHER EKG Fin al Result Performing Organization Address City/State/[facility] Co de Phone Number [facility] [address] [place], [place] [phone] from Last 3 Months Insurance [facility] Care Teams Die Tripper Relationship Specialty Start Date End Date Jessica Murphy CNP [address] [place], [place] [id number] PCP - General Internal Medicine 02/07/25 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 RN [address] [place] [address] [place] [address] Specialty Human Intelligence Hematology/Oncology 03/28/25 Ernesto Phoenix MD [address] [place] [address] [place] [address] Physician Hematology/Oncology 03/28/25 [place] [address] [place] [address] Physician Hematology 04/09/25 Madelin Mc, RN Specialty Human Intelligence Hematology/Oncology 04/09/25 Myrtle Holland LSW Waist Presser 04/11/25 Yesica Calderon, DARYL [address] [place] [address] Nutrition 04/17/25
--- OUTSIDE RECORDS SUMMARY | 2025-05-05 12:41 | XMS_ITS ---
Author Organization [facility] Address [address] [place], [place] [id number] Care Team Providers Care Knowledge Manager Name Role Phone Jessica Murphy CNP Primary Care Provider + 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 RN Unavailable [phone] Ernesto Phoenix MD Unavailable +-7 Gerald Young MD Unavailable +[phone] Madelin Mc RN Unavailable Unavailable Myrtle Holland Unavailable Unavailable Yesica Calderon RD Unavailable Active Problems Problem Noted Date Diagnosed Date [...] Current Treatment and Therapy Plans AMB PEMBROLIZUMAB 200MG - Q21D* Plan Start Date:04/18/2025 Plan Provider:Gerald Young MD Linked Problems 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) Treatment Medications Current Day (Day 1 , Cycle 2 - Planned for 05/09/2025) Next Day (Day 1, Cycle 3 - Planned for 05/30/2025) pembrolizumab IV infusion (KEYTRUDA) pembrolizumab 200 mg in NaCl 0.9% 58 mL (KEYTRUDA) pembrolizumab 200 mg in NaCl 0.9% 58 mL (KEYTRUDA) Other Current Plans IRON SUCROSE X 2 DOSES - OVER 2 WEEKS* Plan Start Date:02/17/2025 Plan Provider:Veronica Romero APRN.AIRPORT DRIVER Linked Problems Intestinal malabsorption, un specified type (HCC)Iron deficiency anemia, unspecified iron deficiency anemia type Treatment Medications iron sucrose (VENOFER) Past Treatment and Therapy Plans ONCOLOGY REGIMEN Plan Name Start Date Discontinue Date Treatment Medications Discontinue Reason Plan Provider Cycles AMB NIVOLUMAB 480 D1 - Q28D 5 04/09/2025 nivolumab iv infusion (OPDIVO) Other Vennepured Ernesto moreau MD Treatment not started AMB PEMBROLIZUMAB 200 D1 - Q21D 5 04/02/2025 pembrolizumab IV infusion (KEYTRUDA) Other Robepured Ernesto moreau MD Treatment not started
--- OUTSIDE RECORDS SUMMARY | 2025-05-05 12:41 | XMS_ITS | Encounter Summary ---
Author Organization [facility] Address [address] [place] [address] Care Team Providers Care Bulldozer Engineer Name Role Phone Jessica Murphy CNP Primary Care Provider + 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 RN Unavailable [phone] Ernesto Phoenix MD Unavailable +-1 Gerald Young MD Unavailable [phone] Madelin Mc RN Unavailable Unavailable Myrtle Holland Unavailable Unavailable Yesica Calderon RD Unavailable Source Comments In the event this information is protected by the Federal Confidentiality of Alcohol and Drug AbusePatient Records regulations: The Federal rules restrict any use of the information to criminally investigate or prosecute any alcohol or drug abuse patient.[facility] Reason for Visit * Reason Comments Nm Pet Request Encounter Details Date Type Department Care Team (Late st Contact Info) Description 04/09/2025 Telephone Hematology/Oncology [address] [place] [address] Madelin Mc, RN Nm Pet Request Social History Tobacco Use Types Packs/Day Years [...] is lower risk 6 01/03/2025 Data from: https://www.neighborhoodatlas.medicine.[facility]/. Last address used for calculation [address] 01/03/2025 Sex and Gender Information Value [...] encounter Miscellaneous Notes * Telephone Encounter - Madelin Mc RN - 04/09/2025 4:21 PM EDT This form is used for MAIN CAMPUS APPOINTMENTS ONLY. Is this request for a Main [place] PET scan appointment? Yes: Publication Specialist: Alexandro Yusuf RN Who do we call to schedule this appointment? Patient Requesting Staff Dr. Young Area Code + Phone/Pager: N/A PET Orders (A delay in scheduling will result if the orders are not present at time of review): Internal ADDITIONAL ACTION MAY BE REQUIRED IF PATIENTS OON INSURANCE OR SELF PAY COVERAGE HAS NOT BEEN CLEARED FOR REQUESTED APPOINTMENT. Scheduling: SHA: As soon as insurance will allow What account will this PET appointment be linked to? P/F Type of PET: Oncology: Are there additional diagnostic CT scans required to be done at time of PET scan? No Is the request for a PET MR ? No What account will diagnostic testing appointment be linked to? P/F Will the patient need anesthesia? NO Send requests to P [facility] documented in this encounter Plan of Treatment Upcoming Encounters Date Type Department Care Team (Latest Contact Info) Description 05/09/2025 9:00 AM EDT Office Visit [facility] [address] [place] [address] 3 week lab follow up chemotx Keytruda 05/09/2025 9:20 AM EDT Visit (SP) Office Hematology/Oncology [address] [facility] [address] Ernesto Phoenix MD [address] [facility] [place] [address] 3 week lab follow up chemotx Keytruda 05/09/2025 9:45 AM EDT [facility] Hematology/Oncology [address] [place] [address] 3 week lab follow up chemotx Keytruda 06/06/2025 11:15 AM EDT Results Only [facility] [address] [place] [address] Young 06/20/2025 12:30 PM EDT Visit (SP) Office Hematology/Oncology [address] [place] [address] Gerald Young MD [address] [place] [address] follow up per pt req documented as of this encounter Visit Diagnoses Not on filedocumented in this encounter Care Teams Bulldozer Engineer Relationship Specialty Start Date End Date Jessica Murphy CNP [address] [place] [address] PCP - General Internal Medicine 02/07/25 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 RN [address] [place] [address] Specialty Archery Instructor Hematology/Oncology 03/28/25 Ernesto Phoenix MD [address] [place] [address] Physician Hematology/Oncology 03/28/25 [place] [address] [place] [id number] Physician Hematology 04/09/25 Madelin Mc, RN Specialty Archery Instructor Hematology/Oncology 04/09/25 Myrtle Holland LSW Factory Engineer 04/11/[address] [place] [address] Nutrition 04/17/25 documented as of this encounter
--- OUTSIDE RECORDS SUMMARY | 2025-05-05 12:42 | XMS_ITS | Encounter Summary ---
Author Organization [facility] Address [address] [place] [address] Care Team Providers Care Sanitary Engineer Name Role Phone Jessica Murphy CNP Primary Care Provider + 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 RN Unavailable [phone] Ernesto Phoenix MD Unavailable +2 Gerald Young MD Unavailable +-[phone] Madelin Mc RN Unavailable Unavailable Myrtle Holland Unavailable Unavailable Yesica Calderon RD Unavailable Source Comments In the event this information is protected by the Federal Confidentiality of Alcohol and Drug AbusePatient Records regulations: The Federal rules restrict any use of the information to criminally investigate or prosecute any alcohol or drug abuse patient.[facility] Encounter Details Date Type Department Care Team (Late st Contact Info) Description 02/14/2025 Patient Msg Cancer Appts [address] [place] [address] Provider, Ccf Iron Infusion Social History Tobacco [...] is lower risk 6 01/03/2025 Data from: https://www.neighborhoodatlas.medicine.[facility].edu/. Last address used for calculation [address] 01/03/2025 Sex and Gender Information Value [...] 05/09/2025 9:00 AM EDT Office Visit [facility] [address] [place] [address] [place] [address] 3 week lab follow up chemotx Keytruda 05/09/2025 9:20 AM EDT Visit (SP) Office Hematology/Oncology [address] [facility] [address] [address] Ernesto Phoenix MD [address] [facility] [address] 3 week lab follow up chemotx Keytruda 05/09/2025 9:45 AM EDT [facility] Hematology/Oncology [address] [facility] [place] [address] 3 week lab follow up chemotx Keytruda 06/06/2025 11:15 AM EDT Results Only [facility] [address] [facility] [place] [address] Young 06/20/2025 12:30 PM EDT Visit (SP) Office Hematology/Oncology [address] [place], [place] [id number] Gerald Young MD [address] [facility] [facility] [place] [place] [address] follow up per pt req documented as of this encounter Visit Diagnoses Not on filedocumented in this encounter Care Teams Sanitary Engineer Relationship Specialty Start Date End Date Jessica Murphy CNP [address] [place] [address] PCP - General Internal Medicine 02/07/25 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 RN [address] [place] [address] [place] [address] Specialty Mds Coordinator Hematology/Oncology 03/28/25 Ernesto Phoenix MD [address] [facility] [place] [address] Physician Hematology/Oncology 03/28/25 [place] [address] [place] [address] Physician Hematology 04/09/25 Madelin Mc RN Specialty Mds Coordinator Hematology/Oncology 04/09/25 Myrtle Holland LSW Skin Grader 04/11/[address] [place] [address] Nutrition 04/17/25 documented as of this encounter
--- OUTSIDE RECORDS SUMMARY | 2025-05-05 12:42 | XMS_ITS | Encounter Summary ---
Author Organization [facility] Address [address] [place] [address] Care Team Providers Care Director Private Music Therapy Agency Name Role Phone Jessica Murphy CNP Primary Care Provider + 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 RN Unavailable [phone] Ernesto Phoenix MD Unavailable +1 Gerald Young MD Unavailable +[phone] Madelin Mc RN Unavailable Unavailable Myrtle Holland [...] Info) Description 01/20/2025 Patient Msg Angio [address] [place] [address] Provider, Ccf pre procedure instructions for 01/24/25 Social History Tobacco Use Types Packs/Day Years Used Date Smoking Tobacco: Never Assessed Area Deprivation Index Answer Date Roland rded National Score (1-100), lower number is lower ri sk 78 01/03/2025 State Score (1-10), lower number is lower risk 6 01/03/2025 Data from: https://www.neighborhoodatlas.medicine.[facility].edu/. Last address used for calculation [address] [...] Description 05/09/2025 9:00 AM EDT Office Visit [facility] Laboratory [address] [place] [address] [place] [address] 3 week lab follow up chemotx Keytruda 05/09/2025 9:20 AM EDT Visit (SP) Office Hematology/Oncology [address] [facility] [place] [address] Ernesto Phoenix MD [address] [facility] [facility] [place] [address] 3 week lab follow up chemotx Keytruda 05/09/2025 9:45 AM EDT [facility] Hematology/Oncology [address] [facility] [place] [address] 3 week lab follow up chemotx Keytruda 06/06/2025 11:15 AM EDT Results Only [facility] [address] [facility] [facility] [place] [address] Young 06/20/2025 12:30 PM EDT Visit (SP) Office Hematology/Oncology [address] [place], [place] [address] Gerald Young MD [address] [place] [address] follow up per pt req documented as of this encounter Visit Diagnoses Not on filedocumented in this encounter Care Teams Director Private Music Therapy Agency Relationship Specialty Start Date End Date Jessica Murphy, FERRIS WHEEL ATTENDANT [address] [place] [address] PCP - General Internal Medicine 02/07/25 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, RN [address] [facility] [place] [address] Specialty Au Pair Hematology/Oncology 03/28/25 Ernesto Phoenix MD [address] [facility] [facility] [place] [address] Physician Hematology/Oncology 03/28/25 [place] [address] [place] [address] Physician Hematology 04/09/25 Madelin Mc RN Specialty Au Pair Hematology/Oncology 04/09/25 Myrtle Holland LSW Home Energy Consultant Supervisor 04/11/[address] [place] [address] Nutrition 04/17/25 documented as of this encounter
--- OUTSIDE RECORDS SUMMARY | 2025-05-05 12:42 | XMS_ITS | Encounter Summary ---
Author Organization [facility] Address [address] [place], [place] [id number] Care Team Providers Care Filteration Operator Name Role Phone Jessica Murphy CNP Primary Care Provider + 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 RN Unavailable Ernetso Phoenix MD Unavailable +3 Gerald Young MD Unavailable + Madelin Mc RN Unavailable Unavailable Myrtle Holland Unavailable Unavailable Yesica Calderon RD Unavailable Source Comments In the event this information is protected by the Federal Confidentiality of Alcohol and Drug AbusePatient Records regulations: The Federal rules restrict any use of the information to criminally investigate or prosecute any alcohol or drug abuse patient.[facility] Encounter Details Date Type Department Care Team (Late st Contact Info) Description 04/02/2025 Telephone Hematology/Oncology [address] [place] [address] [place] [address] Ernesto Phoenix MD [address] [place] [address] [place] [address] Social History Tobacco Use Types Packs/Day [...] is lower risk 6 01/03/2025 Data from: https://www.neighborhoodatlas.[facility]/. Last address used for calculation [address] 01/03/2025 Sex and Gender Information Value [...] Telephone Encounter - Tamika Evans RPh - 04/02/2025 2:24 PM EDT Plan updated this morning to Opdivo. Tayo Evans, PharmD, BCOP * Telephone Encounter - Raya Pulido - 04/02/2025 2:10 PM EDT Chemo Ed added as requested. Raya Pulido PSS * Telephone Encounter - 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 RN - 04/02/2025 1:47 PM EDT Pt calls with questions regarding change in treatment. Discussed new medications with patient briefly. PSS: please add pt to my ed schedule for Monday when he is here for his other appointments. Pharmacy: please make changes per Dr Ring's request. Thanks 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, RN * Telephone Encounter - Ernesto Phoenix MD - 04/02/2025 9:09 AM EDT I spoke with him now. I sent cabozantinib to our pharmacy. Please cancel keytruda and order Opdivo once a month. We will do opdivo plus cabozantinib. Thank you documented in this encounter Plan of Treatment Upcoming Encounters Date Type Department Care Team (Latest Contact Info) Description 05/09/2025 9:00 AM EDT Office Visit [facility] [address] [place] [address] [place] [address] 3 week lab follow up chemotx Keytruda 05/09/2025 9:20 AM EDT Visit (SP) Office Hematology/Oncology [address] [facility] [place] [address] Ernesto Phoenix MD [address] [facility] [place] [address] 3 week lab follow up chemotx Keytruda 05/09/2025 9:45 AM EDT [facility] Hematology/Oncology [address] [place] [address] [place] [address] 3 week lab follow up chemotx Keytruda 06/06/2025 11:15 AM EDT Results Only [facility] [address] [place] [address] [place] [address] Young 06/20/2025 12:30 PM EDT Visit (SP) Office Hematology/Oncology [address] [place] [address] Gerald Young MD [address] [place] [address] follow up per pt req documented as of this encounter Visit Diagnoses Not on filedocumented in this encounter Care Teams Filteration Operator Relationship Specialty Start Date End Date Jessica Murphy CNP [address] [place] [address] PCP - General Internal Medicine 02/07/25 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 RN [address] [place] [address] [place] [address] Specialty Aircraft Refueller Hematology/Oncology 03/28/25 Ernesto Phoenix MD [address] [place] [address] [place] [address] Physician Hematology/Oncology 03/28/25 [place] [address] [place] [address] Physician Hematology 04/09/25 Madelin Mc, RN Specialty Aircraft Refueller Hematology/Oncology 04/09/25 Myrtle Holland LSW Source Water Protection Specialist 04/11/[address] [place] [address] Nutrition 04/17/25 documented as of this encounter
--- OUTSIDE RECORDS SUMMARY | 2025-05-05 12:42 | XMS_ITS | Encounter Summary ---
Author Organization [facility] Address [facility] [place] [address] Care Team Providers Care Padder Cushion Name Role Phone Jessica Murphy CNP Primary Care Provider + 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 RN Unavailable [phone] Ernesto Phoenix MD Unavailable +6 Gerald Young MD Unavailable [phone] Madelin Mc RN Unavailable Unavailable Myrtle Holland Unavailable Unavailable Yesica Calderon RD Unavailable Source Comments In the event this information is protected by the Federal Confidentiality of Alcohol and Drug AbusePatient Records regulations: The Federal rules restrict any use of the information to criminally investigate or prosecute any alcohol or drug abuse patient.[facility] Encounter Details Date Type Department Care Team (Late st Contact Info) Description 01/06/2025 Patient Msg Pre Anesthesia [address] [place] [address] Provider, Ccf PACC Appointment Social History Tobacco Use Types Packs/Day Years Used Date Smoking Tobacco: Never Assessed Area Deprivation Index Answer Date Roland rded National Score (1-100), lower number is lower ri sk 78 01/03/2025 State Score (1-10), lower number is lower risk 6 01/03/2025 Data from: https://www.neighborhoodatlas.medicine.[facility].edu/. Last address used for calculation [address] [...] 9:00 AM EDT Office Visit [facility] [address] [place] [address] [place] [address] 3 week lab follow up chemotx Keytruda 05/09/2025 9:20 AM EDT Visit (SP) Office Hematology/Oncology [address] [facility] [place] [address] Ernesto Phoenix MD [address] [facility] [place] [address] 3 week lab follow up chemotx Keytruda 05/09/2025 9:45 AM EDT [facility] Hematology/Oncology [address] [place] [address] [place] [address] 3 week lab follow up chemotx Keytruda 06/06/2025 11:15 AM EDT Results Only [facility] [address] [facility] [place] [address] Young 06/20/2025 12:30 PM EDT Visit (SP) Office Hematology/Oncology [address] [place] [address] Gerald Young MD [address] [place] [address] follow up per pt req documented as of this encounter Visit Diagnoses Not on filedocumented in this encounter Care Teams Padder Cushion Relationship Specialty Start Date End Date Jessica Murphy, FERRY OPERATOR [address] [place] [address] PCP - General Internal Medicine 02/07/25 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, RN [address] [facility] [place] [address] Specialty Shellfish Shucker Hematology/Oncology 03/28/25 Ernesto Phoenix MD [address] [facility] [place] [address] Physician Hematology/Oncology 03/28/25 [place] [address] [place] [address] Physician Hematology 04/09/25 Madelin Mc RN Specialty Shellfish Shucker Hematology/Oncology 04/09/25 Myrtle Holland LSW Director Global Sales 04/11/[address] [place] [address] Nutrition 04/17/25 documented as of this encounter
--- OUTSIDE RECORDS SUMMARY | 2025-05-05 12:42 | XMS_ITS | Patient Health Record ---
Author Organization [facility] in [place] Address [address] [place] [address] Care Team Providers Care Coating Machine Operator Name Role Phone Jessica Murphy Primary Care Provider Allergies No Known Allergies Results Component Value Reference Range Notes Urine Culture, Routine Reviewed date:09/24/2024 09:00:01 AM [...] JENNYFER Status Urine Culture, Routine [facility]formed [facility]rine Culture, Routine Organism: Escherichia coli. : O:ESCHCO Isolated Organism: 1.1 Antibiotic Interpretation JENNYFER Status Urine Culture, Routine [address] [place], [place] [id number] Urine Culture, Routine Organism: Escherichia coli. : O:ESCHCO Isolated Organism: 1.1 Antibiotic Interpretation JENNYFER Status Urine Culture, Routine Slitter Creaser Slotter Helper: Kunal Dewey PhD, Phone: [phone] Urine Culture, Routine Organism: Escherichia coli. : [...] LC - [facility] LB SEE REPORT - Office Clerk Assistant Id information not found for OBX-specific zinc skimmer legend UA RANDOM W or MICROSCOPIC Reviewed date:10/10/2024 04:48:34 PM Interpretation: Performing Lab: Notes/Report: [facility] , Color Urine LT. YELLOW YELLOW Clarity Urine CLEAR CLEAR Specific Carson Urine 1.020 1.005-1.025 pH Urine 6.0 5.0-9.0 [...] #/LPF Performing Lab: see note ML - [facility] LB CREATININE Reviewed date:12/16/2024 04:07:05 PM Interpretation: Performing Lab: Notes/Report: [facility] , Creatinine 1.53 0.70-1.30 mg/dL Estimated GFR ( Yasmine 56 >=60 mL/min/1.73m 2 Estimated GFR (Non- Janis 46 >=60 mL/min/1.73m 2 Performing Lab: see note - [facility] PROF CHEM 8 (BAS METB) Reviewed date:03/11/2025 09:50:30 AM Interpretation: Performing Lab: Notes/Report: [facility] , Sodium 137 136-145 mmol/L [...] Performing Lab: see note ML - [facility] LB MR head/brain wo con Reviewed date:03/31/2025 03:42:23 PM Interpretation: Performing Lab: Notes/Report: Source Facility: [facility]-[address] [place] [address] [place] [address] Magnetic Resonance Report Signed Patient: HARMAN LE MR#: [id number] : 1960 Acct:[id number] Age/Sex: 65 / M ADM Date: 03/31/25 Loc: MRI Attending Dr: Pete Calhoun M.D. Ordering Physician: Pete Calhoun M.D. Date of Service: 03/31/25 Procedure(s): MR head/brain wo con Accession Number(s): [id number] cc: JESSICA MURPHY ; Pete Calhoun M.D. The [place] [address] Patient Name: HARMAN LE MRN: [id number] date: 1960 Sex: M Assigned Patient Location: MRI Current Patient Location: MRI Accession/Order Number: [id number] Exam Date: 03/31/2025 14:50 Report Date: 03/31/2025 14:56 At the request of: PETE CALHOUN MD Procedure: MR head/brain wo con EXAMINATION: MRI OF THE BRAIN WITHOUT CONTRAST CLINICAL HISTORY: Renal Cell Carcinoma COMPARISON: None TECHNIQUE: Multiecho, multiplanar imaging of the brain was performed without enhancement. FINDINGS: No evidence of restriction diffusion is an diffusion-weighted imaging. No evidence of blood products are seen on T2 Star imaging. Cortical atrophy with mild chronic microvascular ischemic changes. This appears to extend into the elsy. Medulla and cerebellum appear unremarkable. Intraorbital contents appear unremarkable. No significant paranasal sinus disease. MR/MR head/brain wo con IMPRESSION: NO ACUTE INTRACRANIAL ABNORMALITY. CORTICAL ATROPHY WITH MILD CHRONIC MICROVASCULAR ISCHEMIC CHANGES. Impression dictated by: Russell Lepe Jr., D.O. 03/31/2025 2:56 PM Dictation Location: [place] [address] Electronically authenticated by: [id number] Y Date: 03/31/2025 14:56 Dictated By: Russell Lepe M.D. Signed By: 03/31/25 1458 DD/ 55 TD/TT: Sulfur Burner: [place] [address] Magnetic Resonance Report Signed Patient: HARMAN LE MR#: [id number] : 1960 Acct:[id number] Age/Sex: 65 / M ADM Date: 03/31/25 Loc: MRI Attending Dr: Pete Calhoun M.D. Ordering Physician: Pete Calhoun M.D. Date of Service: 03/31/25 Procedure(s): MR head/brain wo con Accession Number(s): [id number] cc: JESSICA MURPHY ; Pete Calhoun M.D. [place] [address] Patient Name: HARMAN LE MRN: [id number] date: 1960 Sex: M Assigned Patient Location: MRI Current Patient Loca tion: MRI Accession/Order Numb er: [id number] Exam Date: 03/31/2025 14:50 Report Date: 03/31/2025 14:56 At the request of: PETE CALHOUN MD Procedure: MR head/b rain wo con EXAMINATION: MRI OF THE BRAIN WITHOUT CONTRAST CLINICAL HISTORY: Re nal Cell Carcinoma COMPARISON: None TECHNIQUE: Multiecho , multiplanar imaging of the brain was performed without enhancement. FINDINGS: No evidence of restriction diffusion is an diffusion-weighted imaging. No evidence of blood products are seen on T2 Star imaging. Cortical atrophy with mild chronic microvascular ischemic changes. This appears to extend into the elsy. Medulla and cerebellum appear unremarkable. Intraorbital contents appear unremarkable. No significant paranasal sinus disease. M R/MR head/brain wo con IMPRESSION: NO ACUTE INTRACRANIA L ABNORMALITY. CORTICAL ATROPHY WIT H MILD CHRONIC MICROVASCULAR ISCHEMIC CHANGES. Impression dictated by: Melanie James Jr..Flei 03/31/2025 2:56 PM Dictation Location: [place] [address] Electronically authenticated by: [id number] Y Date: 03/31/2025 14:56 Dictated By: Russell Lepe M.D. Signed By: 03/31/25 1458 DD/ 1456 TD/TT: Sulfur Burner: POTASSIUM Reviewed date:03/25/2025 09:30:11 AM Interpretation: Performing Lab: Notes/Report: [facility] , Potassium 5.1 3.5-5.1 mmol/L Performing Lab: see note - [facility] LB CREATININE Reviewed date:03/25/2025 09:30:01 AM Interpretation: Performing Lab: Notes/Report: [facility] , Creatinine 2.15 0.70-1.30 mg/dL Estimated GFR ( Yasmine 38 >=60 mL/min/1.73m 2 Estimated GFR (Non- Janis 31 >=60 mL/min/1.73m 2 Performing Lab: see note ML - [facility] LB BUN Reviewed date:03/25/2025 09:30:11 AM Interpretation: Performing Lab: Notes/Report: [facility] , Blood Urea Nitrogen 35.0 7.0-18.0 mg/dL Performing Lab: see note - [facility] LB ECG 12 lead Reviewed date:03/12/2025 09:58:55 AM Interpretation: Performing Lab: Notes/Report: Source Facility: [place] [address] [place] [address] Electrocardiograph Report Signed Patient: HARMAN LE MR#: [id number] : 1960 Acct:[id number] Age/Sex: 65 / M ADM Date: 03/11/25 Loc: ER Attending Dr: Ordering Physician: Brianne Kunz Date of Service: 03/11/25 Procedure(s): ECG 12 lead Accession Number(s): [id number] cc: [facility] Test Date: 2025-03-11 Pat Name: HARMAN LE Department: Room: - Gender: Male Vaccine Specialist: : 1960 Requested By: 1854 Order Number: [id number] Reading MD: SUBHASH HERNANDEZ M.D. Measurements Intervals Cascade Rate: 55 P: 42 TN: 134 QRS: 66 QRSD: 92 T: 57 QT: 416 QTc: 406 Interpretive Statements 1100 Sinus rhythm 9110 normal ECG No previous ECG available for comparison Electronically Signed On 03-11-2025 14:17:46 EDT by SUBHASH HERNANDEZ M.D. Dictated By: SUBHASH HERNANDEZ Signed By: 03/11/25 141 DD/ 7 TD/TT: Sulfur Burner: [place] [address] Electrocardiograph Report Signed Patient: HARMAN LE MR#: [id number] : 1960 Acct:[id number] Age/Sex: 65 / M ADM Date: 03/11/25 Loc: ER Attending Dr: Ordering Physician: Brianne Kunz Date of Service: 03/11/25 Procedure(s): ECG 12 lead Accession Number(s): [id number] cc: [facility] Test Date: 2025-03-11 Pat Name: HARMAN NIÑO Department: 79 Room: - Gender: Male Vaccine Specialist: : 1960 Requ ested By: 1854 Order Number: [id number] Reading MD: SUBHASH HERNANDEZ M.D. Measurements Intervals Cascade Rate: 55 P: 42 TN: 134 QRS: 66 QRSD: 92 T: 57 QT: 416 QTc: 406 Interpretive Statements 1100 Sinus rhythm 9110 normal ECG No previous ECG avai lable for comparison Electronically Urszula d On 03-11-2025 14:17:46 EDT by SUBHASH HERNANDEZ M.D. Dictated By: SUBHASH HERNANDEZ Signed By: 03/11/251417 DD/ 7 TD/TT: Sulfur Burner: PROF Packer(COMP METB) Reviewed date:03/11/2025 09:50:30 AM Interpretation: Performing Lab: Notes/Report: [facility] , Sodium 136 136-145 mmol/L [...] 0.5 Performing Lab: see note ML - [facility] LB CBC AUTO DIFF Reviewed date:03/11/2025 09:50:30 AM Interpretation: Performing Lab: Notes/Report: [facility] , White Blood Count 12.9 4.0-11.0 [...] 3/uL Performing Lab: see note ML - [facility] LB CT abdomen pelvis wo con Reviewed date:12/16/2024 04:14:13 PM Interpretation: Performing Lab: Notes/Report: Source Facility: [place] [address] CT Scan Report Signed Patient: HARMAN LE MR#: [id number] : 1960 Acct:[id number] Age/Sex: 64 / M ADM Date: 12/14/24 Loc: CT Attending Dr: Nirmala SYED Ordering Physician: Nirmala Lake Date of Service: 12/14/24 Procedure(s): CT abdomen pelvis wo/w con Accession Number(s): [id number] cc: JESSICA MURPHY [place] [id number] Patient Name: HARMAN LE MRN: [id number] date: 1960 Sex: M Assigned Patient Location: CT Current Patient Location: CT Accession/Order Number: [id number] Exam Date: 12/14/2024 13:23 Report Date: 12/14/2024 [...] Dedrick Marshall M.D.12/14/2024 1:35 PM Dictation Location: [place] [address] Electronically authenticated by: [id number] Y Date: 12/14/2024 13:35 Dictated By: Dedrick Marshall D.O. Signed By: 12/14/24 1337 DD/ 34 TD/TT: Sulfur Burner: [place] [address] CT Scan Report Signed Patient: HARMAN LE MR#: [id number] : 1960 Acct:[id number] Age/Sex: 64 / M ADM Date: 12/14/24 Loc: CT Attending Dr: Claudette SYED Ordering Physician: Nirmala Lake Date of Service: 12/14/24 Procedure(s): CT abd omen pelvis wo/w con Accession Number(s): [id number] cc: JESSICA MURPHY [facility] [address] [place], [place] [address] Patient Name: HARMAN LE MRN: [id number] date: 1960 Sex: M Assigned Patient Location: CT Current Patient Loca tion: CT Accession/Order Numb er: [id number] Exam Date: 12/14/2024 13:23 Report Date: 12/14/2024 [...] Dedrick Marshall M.D.12/14/2024 1:35 PM Dictation Location: [place] [address] Electronically authenticated by: [id number] Y Date: 12/14/2024 13:35 Dictated By: Dao Marshall D.O. Signed By: 12/14/247 DD/ 34 TD/TT: Sulfur Burner: Box Test Reviewed date:10/10/2024 03:21:54 PM Interpretation: Performing Lab: Notes/Report: URINE CULTURE [facility] , BOX Test Sent Out URINE CULTURE BOX Test Reference Lab [facility] BOX Test Date Sent 10/08/24 BOX Test Result SEE SCANNED REPORT Performing Lab: see note ML - [facility] LB UA RANDOM W or MICROSCOPIC Reviewed date:09/23/2024 09:32:27 AM Interpretation: Performing Lab: Notes/Report: [facility] , Color Urine LT. YELLOW YELLOW Clarity Urine CLEAR CLEAR Specific Carson Urine 1.020 1.005-1.025 pH Urine 6.0 5.0-9.0 [...] ORDERED Performing Lab: see note ML - [facility] LB UA (Urinalysis, Dipstix only - w/o micro) [...] ESTERASE (ATILIO) ++ NEG - NEG MG/DL POTASSIUM Reviewed date:03/20/2025 10:32:46 AM Interpretation: Performing Lab: Notes/Report: [facility] , Potassium 5.6 3.5-5.1 mmol/L Performing Lab: see note ML - [facility] LB CREATININE Reviewed date:03/20/2025 10:32:46 AM Interpretation: Performing Lab: Notes/Report: [facility] , Creatinine 2.14 0.70-1.30 mg/dL Estimated GFR ( Yasmine 38 >=60 mL/min/1.73m 2 Estimated GFR (Non- Janis 31 >=60 mL/min/1.73m 2 Performing Lab: see note - [facility] LB BUN Reviewed date:03/20/2025 10:32:46 AM Interpretation: Performing Lab: Notes/Report: [facility] , Blood Urea Nitrogen 35.0 7.0-18.0 mg/dL Performing Lab: see note ML - [facility] LB Reason For Referral Diagnosis 1 Hematuria (R31.9) Referral Organization [facility] Referring Provider First Name Jessica Referring Provider Last Name Katherine Referring Provider Speciality [facility] stacy Referred Provider Nikolai Rust Referred Provider Specialty Urology Referral Priority Routine Medications Medication SIG (Take, Route, Frequency, Duration) Notes Start Date End Date Status Metoprolol Tartrate 100 MG TAKE 1 TABLET BY MOUTH TWICE DAILY for 90 Active Allopurinol 300 MG TAKE 2 TABLETS BY [facility] EVERY DAY for 90 days Active Spironolactone [...] Status W/U Status Risk Notes Problem Hypertension (41097110) HTN (hypertension) (I10) Active confirmed Problem Gout (52776102) Gout (M10.9) Active confirmed Problem Hematuria (06690389) Hematuria (R31.9) Active confirmed Problem Disorder of kidney and/or ureter (155239636) Left kidney mass (N28.89) Active confirmed Problem Malignant tumor of kidney (415229435) Renal cell carcinoma of left kidney (C64.2) Active confirmed Problem Type II diabetes mellitus without complication (347913006) Diabetes (E11.9) Active confirmed Vital Signs Blood pressure diastolic 76 mm Hg 03/04/2025 Height 71 in 03/04/2025 Blood pressure systolic 132 mm Hg 03/04/2025 Weight 264 lbs 09/20/2024 BMI 36.82 kg/m2 09/20/2024 Encounters Encounter Location Date Provider Diagnosis [facility] [address] [place] [address] 09/23/2024 Jessica Murphy [facility] [address] [place] [address] 09/23/2024 Jessica Murphy [facility] [address] [place] [address] 03/04/2025 Jessica Murphy [facility] [address] [place] [address] 09/23/2024 Jessica Murphy [facility] [address] [place] [address] 10/07/2024 Jessica Murphy UTI (urinary tract infection) N39.0 [facility] [address] [place] [address] 10/10/2024 Jessica Murphy [facility] [address] [place] [address] 10/10/2024 Jessica Murphy Hematuria R31.9 [facility] [address] [place] [address] 11/29/2024 Jessica Murphy [facility] [address] [place] [address] 03/03/2025 Jessica Murphy HTN (hypertension) I10 [facility] [address] [place] [address] 03/04/2025 Jessica Katherine [facility] [address] [place] [address] 09/20/2024 Jessica Murphy Blood in urine R31.9 [...] Coverage End Date [employer] [address] [address] [place] [address] [id number] Harman Le Self - patient is the insured Medical (General) History Surgical History Surgery Date(Month/Year) Cyst Removal Teeth Extraction
--- OUTSIDE RECORDS SUMMARY | 2025-05-05 12:42 | XMS_ITS | Encounter Summary ---
Author Organization [facility] Address [address] [place], [place] [address] Care Team Providers Care Yard Crane Operator Name Role Phone Jessica Murphy CNP Primary Care Provider + 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 RN Unavailable [phone] Ernesto Phoenix MD Unavailable + Gerald Young [...] any alcohol or drug abuse patient.[facility] Reason for Visit * Reason Comments Care Coordination Treatment prep Encounter Details Date Type Department Care Team ([facility] st Contact Info) Description 03/28/2025 Telephone Hematology/Oncology [facility] [place] [address] 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, RN [address] [place] [address] [place] [address] Care Coordination (Treatment prep) Social History Tobacco Use Types Packs/Day Years [...] is lower risk 6 01/03/2025 Data from: https://www.neighborhoodatlas.medicine.[facility]/. Last address used for calculation [address] 01/03/2025 Sex and Gender Information Value [...] encounter Miscellaneous Notes * Telephone Encounter - 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 RN - 03/28/2025 12:45 PM EDT Pt will be in for education on Monday. Please sign pending orders. Thanks 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 RN documented in this encounter Plan of Treatment Upcoming Encounters Date Type Department Care Team (Latest Contact Info) Description 05/09/2025 9:00 AM EDT Office Visit [facility] [address] [place] [address] [place] [address] 3 week lab follow up chemotx Keytruda 05/09/2025 9:20 AM EDT Visit (SP) Office Hematology/Oncology [address] [place] [address] [place] [address] Ernesto Phoenix MD [address] [place] [address] 3 week lab follow up chemotx Keytruda 05/09/2025 9:45 AM EDT [facility] Center Hematology/Oncology [address] [place] [address] 3 week lab follow up chemotx Keytruda 06/06/2025 11:15 AM EDT Results Only [facility] [address] [place] [address] Young 06/20/2025 12:30 PM EDT Visit (SP) Office Hematology/Oncology [address] [place] [address] Gerald Young MD [address] [place] [address] follow up per pt req documented as of this encounter Visit Diagnoses Diagnosis Renal cell carcinoma of left kidney (HCC)- Primary documented in this encounter Care Teams Yard Crane Operator Relationship Specialty Start Date End Date Jessica Murphy CNP [address] [place] [address] PCP - General Internal Medicine 02/07/25 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, RN [address] [place] [address] Specialty Piano Refinisher Hematology/Oncology 03/28/25 Ernesto Phoenix MD [address] [place] [address] Physician Hematology/Oncology 03/28/25 [place] [address] [place] [address] Physician Hematology 04/09/25 Madelin Mc, JUANA Specialty Piano Refinisher Hematology/Oncology 04/09/25 Myrtle Holland LSW Fuel Retrofitting Technician 04/11/[address] [place] [address] Nutrition 04/17/25 documented as of this encounter
--- NOTE | 2025-05-05 12:54 | CA_ITS ---
Patient Name: HARMAN LE MR#: [id number] : 1960 Exam Date: 05/05/2025 Ordering Doctor: PETE CALHOUN ECHOCARDIOGRAM REPORT PROCEDURE: CA ECHO DOPPLER COMPLETE INDICATIONS: Therapy with cardiotoxic agents for Renal Cell CA COMPARISON: None. DESCRIPTION: COMPLETE ECHOCARDIOGRAM Real-time transthoracic echocardiography with 2D, M-mode, spectral and color flow Doppler performed. QUALITY: Technical quality was good. LEFT VENTRICLE: Normal chamber size. Moderate concentric left ventricular hypertrophy. Global left ventricular systolic function is normal. Global longitudinal strain is normal at -20.2%. LV EF: Calculated left ventricular ejection fraction is 66%. DIASTOLIC: Normal diastolic function. ATRIAL SEPTUM: LEFT ATRIUM: Normal chamber size. RIGHT ATRIUM: Normal chamber size. RIGHT VENTRICLE: Normal chamber size. Normal right ventricular systolic function. TRICUSPID VALVE: Normal mobility and thickness. No stenosis with trivial regurgitation. No evidence of pulmonary hypertension. RVSP 20 mmHg. MITRAL VALVE: Normal mobility and thickness. No evidence of mitral valve stenosis. There is no mitral annular calcification. No mitral regurgitation. AORTIC VALVE: No visible sclerosis. Normal leaflet mobility. No evidence of aortic valve stenosis. Mild aortic regurgitation. AORTIC ROOT: Normal size aortic root measuring 3.9 cm. The ascending aorta is borderline in size, measures 3.7 cm. PULMONIC VALVE: Normal thickness and mobility. No stenosis. No regurgitation. PERICARDIUM: No evidence of pericardial effusion. IVC: Collapses with inspiration. Normal size PLEURA: CONCLUSION: 1. Moderate concentric left ventricular hypertrophy with normal systolic function. Calculated LVEF is 66%. Global longitudinal strain is normal at -20.2%. 2. Normal right ventricular size and systolic function. 3. Mild aortic regurgitation. 4. Normal diastolic function. 5. Normal right-sided pressures. Adult Echocardiography Procedure Report Left Ventricle LVEDD (3.7 - 5.6 cm): 5.04 cm LVESD (2.2 - 4.0 cm): 3.53 cm LVIVS thickness (0.6 - 1.2 cm): 1.45 cm LVPW thickness (0.5 - 1.0 cm): 1.27 cm e': 0.09 m/s E - e': 9.02 LVOT Diameter 2.57 cm Left Ventricular Ejection Fraction: 66 % Left Atrium LA Volume Index (2D A2C): 30.99 ml/m2 Left Atrium Systolic Dimension: 4.54 cm Mitral Valve MV E to A Ratio: 0.93 Mitral Valve A-Wave Peak Velocity: 0.87 m/s Mitral Valve E-Wave Peak Velocity: 0.81 m/s Right Ventricle RV Internal Diastolic Dimension: 4.61 cm Aorta AO Root Diam: 3.91 cm Ascending Ao Diam: 3.73 cm Aortic Valve Peak Velocity(Antegrade Flow): 1.28 m/s Peak Gradient(Antegrade Flow): 6.58 mm[Hg] Mean Velocity(Antegrade Flow): 0.86 m/s Mean Gradient(Antegrade Flow): 3.40 mm[Hg] Velocity Time Integral: 30.31 cm Tricuspid Valve Peak Velocity (Regurgitant Flow): 1.14 m/s, 2.06 m/s Pulmonic Valve Peak Velocity: 0.87 m/s Peak Gradient: 3.15 mm[Hg], 2.85 mm[Hg] Right Atrium Right Atrium Systolic Pressure: 128.15 ml, 128.15 ml Dictated by: Varun Oden M.D. on 05/05/2025 at 19:04 Approved by: Varun Oden M.D. on 05/05/2025 at 19:09
== END 2025-05-05 12:40 | disposition home or self-care (01) ==
LOC: CARD 12:39
PROVIDERS: PCP Nurse Practitioner Family; Visit Provider Student in an Organized Health Care Education/Training Program
DX: C64.2 Malignant neoplasm of left kidney, except renal pelvis (principal)
CPT/HCPCS: 93242; 93306; 93356

== ENCOUNTER 2025-05-24 10:15 | Outpatient (OUT) | payer OTHER, SELFPAY ==
--- OUTSIDE RECORDS SUMMARY | 2025-05-24 10:19 | XMS_ITS | CCD ---
Author Organization [facility] Care Team Providers Care Mophead Trimmer And Wrapper Name Role Phone JESSICA DAVALOS Attending Unavailable JESSICA DAVALOS Consulting Unavailable SUSANNAH, JESSICA Primary Care Unavailable SUSANNAH, JESSICA Admitting Unavailable Susannah HUSKER OPERATOR-C, Jessica Orozco Attending Provider [phone] NIRMALA MENJIVAR Attending Unavailable JESSICA DAVALOS S Referring Unavailable NIRMALA MENJIVAR Attending Unavailable NIRMALA MENJIVAR Admitting Unavailable JESSICA DAVALOS Primary Care Physician [phone] Nikolai Acosta MD Attending Provider [phone] Unavailable Primary Care Provider Unavailvijaya Davalos CNP, Jessica S Primary Care Provider [phone] Nikolai ACOSTA Attending Unavailable Nikolai ACOSTA Attending Unavailable Nikolai ACOSTA Attending Unavailable Nikolai ACOSTA Attending Unavailable Panda ARIAS, Valerie Hernandez Unavailable [phone] Ernesto Phoenix MD Unavailable [phone] BING ARVIZU Attending Unavailable SELF Referring Unavailable BING ARVIZU Referring Unavailable BING ARVIZU Admitting Unavailable BING ARVIZU Attending Unavailable SUSANNAH, JESSICA S Primary Care Unavailable Susannah, Jessica Pam Admitting Unavailable Susannah, Jessicahank Orozco Attending Unavailable Nikolai Acosta Admitting Unavailable Nikolai Acosta Attending Unavailable Hector JAMES, Jeannine Navarro Unavailable Alexandro ARIAS, Madelin Rich Unavailable Unavailable Skyler BOYD, Myrtle Unavailable Unavailable Yesica Calderon RD Unavailable Susannah HUSKER OPERATOR-C, Jessica Orozco Primary Care Provider Carlitos JAMES, Felton Attending Provider [place] Phoenix MD Unavailable [phone] SUSANNAH, JESSICA S Primary Care Unavailable VENNEPUREDDY, ERNESTO Referring Unavailable SUSANNAH, JESSICA S Primary Care Unavailable VENNEPUREDDY, ERNESTO Referring Unavailable SUSANNAH, JESSICA S Primary Care Unavailable ZAJACZ, TAMANNA Referring Unavailable SUSANNAH, JESSICA S Primary Care Unavailable VENNEPUREDDY, ERNESTO Referring Unavailable SUSANNAH, JESSICA S Primary Care Unavailable VENNEPUREDDY, ERNESTO Referring Unavailable VENNEPUREDDY, ERNESTO Attending Unavailable SUSANNAH, JESSICA S Primary Care Unavailable VENNEPUREDDY, ERNESTO Referring Unavailable JEANNINE YOUNG Attending Unavailable LUIS BING Referring Unavailable SUSANNAH, JESSICA S Primary Care Unavailable ELAINAALY, BING Referring Unavailable VENNEPUREDDY, ERNESTO Attending Unavailable SUSANNAH, JESSICA S Primary Care Unavailable SUSANNAH, JESSICA S Primary Care Unavailable VENNEPUREDDY, ERNESTO Referring Unavailable VENNEPUREDDY, ERNESTO Attending Unavailable SUSANNAH, JESSICA S Primary Care Unavailable VENNEPUREDDY, ERNESTO Referring Unavailable SUSANNAH, JESSICA S Primary Care Unavailable SUSANNAH, JESSICA S Primary Care Unavailable VENNEPUREDDY, ERNESTO Referring Unavailable VENNEPUREDDY, ERNESTO Attending Unavailable SUSANNAH, JESSICA S Primary Care Unavailable ROMERO, ROB L Referring Unavailable SUSANNAH, JESSICA S Primary Care Unavailable ROMERO, ROB L Referring Unavailable SUSANNAH, JESSICA S Primary Care Unavailable ZAJACZ, TAMANNA Referring Unavailable SUSANNAH, JESSICA S Primary Care Unavailable YESICA CALDERON Attending Unavailable SUSANNAH, JESSICA S Primary Care Unavailable SUSANNAH, JESSICA S Primary Care Unavailable VENNEPUREDDY, ERNESTO Referring Unavailable VENNEPUREDDY, ERNESTO Attending Unavailable SUSANNAH, JESSICA S Primary Care Unavailable VENNEPUREDDY, ERNESTO Referring Unavailable SUSANNAH, JESSICA S Primary Care Unavailable VENNEPUREDDY, ERNESTO Referring Unavailable SUSANNAH, JESSICA S Primary Care Unavailable VENNEPUREDDY, ERNESTO Referring Unavailable SUSANNAH, JESSICA S Primary Care Unavailable ABOUASSALY, BING Referring Unavailable SUSANNAH, JESSICA S Primary Care Unavailable ROMERO, ROB L Referring Unavailable SUSANNAH, JESSICA S Primary Care Unavailable VENNEPUREDDY, ERNESTO Referring Unavailable SHADSSALY, BING Referring Unavailable BG NAVAS Attending Unavailable BG NAVAS Admitting Unavailable Allergies Allergy Classification Reported Allergen(s) Allergy Type Date of Onset Reaction(s) Facility (2 sources) No Known Medication Allergies; Translations: [No Known Medication Allergies] Propensity to adverse reactions (disorder) [facility] Repository (20 sources) tamsulosin; Translations: [TAMSULOSIN] Drug Allergy Other: See Comments [facility] Medications Current Medications Medication Drug Class(es) Dates Sig (Normalized) Sig (Original) acetaminophen 325 mg oral tablet (20 sources) Start: 04-22-2025 take 1 tablet by mouth every six hours as needed Acetaminophen (Tylenol) 325 mg tablet Active 325 MG PO Every 6 hours as needed April 22, 2025 12:00am Complies with drug therapy Start: 03-14-2025 acetaminophen Refills(s) 0 Start Date: 03/14/25 Status: Ordered Repeat number: 1 Start: 02-28-2025 take 2 tablets by mo uth every six hours as needed acetaminophen (TYLENOL) 325 mg tablet Take 2 tablets by mouth every 6 hours as needed for pain. 40 tablet 02/28/2025 3:04 PM EDT 02/28/2025 Active allopurinol 300 mg oral tablet (20 sources) Xanthine Oxidase Inhibitor Start: 09-07-2022 take 1 tablet by mouth twice daily allopurinol (ZYLOPRIM) 300 mg tablet Take 300 mg by mouth two times a day. 09/07/2022 Active Start: 09-07-2022 take 2 tablets by mo uth once daily allopurinol (ZYLOPRIM) 300 mg tablet TAKE 2 TABLETS BY MOUTH EVERY DAY for 90 days 09/07/2022 Active ciprofloxacin 500 mg oral tablet (1 source) Quinolone Antimicrobial Start: 03-14-2025 ciprofloxacin 500 mg Tab Refills(s) 0 Start Date: 03/14/25 Status: Ordered Repeat number: 1 docusate sodium 100 mg oral capsule (20 sources) Start: 04-22-2025 take 1 capsule by mouth once daily Docusate Sodium (Colace) 100 mg capsule Active 100 MG PO Daily April 22, 2025 12:00am Complies with drug therapy Start: 03-14-2025 take 1 capsule by mo uth twice daily docusate sodium (COLACE ORAL) Take 1 capsule by mouth two times a day. 03/14/2025 Active Start: 03-14-2025 docusate sodiu m (COLACE ORAL) Take by mouth. 03/14/2025 Active Start: 03-14-2025 Colace Oral, B ID, Refills(s) [...] 03/14/2025 Active dutasteride 0.5 mg oral capsule (20 sources) 5-alpha Reductase Inhibitor Start: 12-20-2024 End: 12-15-2025 take 1 capsule by mouth once daily Dutasteride (Avodart) 0.5 mg capsule Active 0.5 MG PO Daily April 22, 2025 12:00am Complies with drug therapy FLUoxetine 10 mg oral capsule (20 sources) Serotonin Reuptake Inhibitor Start: 10-24-2024 take 1 capsule by mouth once daily Fluoxetine (Prozac) 10 mg capsule Active 10 MG PO Daily April 22, 2025 12:00am Complies with drug therapy furosemide 40 mg oral tablet (3 sources) Loop Diuretic Start: 05-10-2025 take 1 tablet by mouth every twelve hours furosemide (LASIX) 40 mg tablet Take 1 tablet by mouth every 12 hours. 05/10/2025 Active hydroCHLOROthiazide 12.5 mg / lisinopril 20 mg oral tablet (9 sources) Thiazide Diuretic, Angiotensin Converting Enzyme Inhibitor Start: 10-24-2024 hydrochlorothiaz jeanie-lisinopril 12.5 mg-20 mg Tab 1 tab(s), Refill(s) 0 Start Date: 10/24/24 Status: Ordered Repeat number: 1 take 1 tablet by melo th once daily lisinopril-hydroCHLOROthiazide (ZESTORET IC) 20-12.5 mg per tablet Take 1 tablet by mouth once daily. Active Inulin (20 sources) take 1 dose by mouth twice daily inulin (FIBER GUMMIES PO) Take 1 each by mouth two times a day. Active lenvatinib 10 mg oral capsule (19 sources) Kinase Inhibitor Start: 04-22-2025 take 1 capsule by mouth once daily Lenvatinib (Lenvima) 10 mg/day (10 mg x 1) capsule Active 10 MG PO Daily April 22, 2025 12:00am Complies with drug therapy Start: 04-09-2025 take 2 capsules by m outh once daily in the morning lenvatinib (LENVIMA) 10 mg/day (10 mg x 1) capsule Take 2 capsules by mouth once daily. 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 60 capsule 2 04/09/2025 Active metFORMIN hydrochloride 500 mg oral tablet (20 sources) Biguanide Start: 04-22-2025 take 1 tablet by mouth twice daily Metformin 500 mg tablet Active 500 MG PO Twice daily April 22, 2025 12:00am Complies with drug therapy Start: 10-24-2024 metformin 1000 mg Tab 1,000 mg = 1 tab(s), Refills(s) 0 Start Date: 10/24/24 Status: Ordered Repeat number: 1 metFORMIN (GLUCO PHAGE) 1,000 mg tablet Take 500 mg by mouth two times a day. Active metoprolol tartrate 100 mg oral tablet (20 sources) beta-Adrenergic Robles Start: 04-22-2025 take 1 tablet by mouth twice daily Metoprolol Tartrate 100 mg tablet Active 100 MG PO Twice daily April 22, 2025 12:00am Complies with drug therapy Start: 10-24-2024 take 1 tablet by melo th once daily metoprolol succinate 100 mg ER Tab 100 mg = 1 tab(s), Oral, Daily, Refills(s) 0 Start Date: 10/24/24 Status: Ordered Repeat number: 1 ondansetron 8 mg oral tablet (20 sources) Serotonin-3 Receptor Antagonist Start: 03-28-2025 take 1 tablet by mouth every eight hours as needed ondansetron (ZOFRAN) 8 mg tablet Take 1 tablet by mouth every 8 hours as needed for nausea/vomiting. 90 tablet 2 04/18/2025 9:20 AM EDT 03/28/2025 Active oxyCODONE hydrochloride 5 mg oral tablet [...] 02/28/2025 3:04 PM EDT 02/28/2025 03/03/2025 Active 4 ml pembrolizumab 25 mg/ml injection (1 source) Programmed Receptor-1 Blocking Antibody Start: 04-22-2025 Pembrolizumab (Keytruda) 25 mg/mL solution Active 200 MG IV EVERY 3 WEEKS April 22, 2025 12:00am administer over 30 mins Complies with drug therapy prochlorperazine 10 mg oral tablet (20 sources) Phenothiazine Start: 03-28-2025 take 1 tablet by mouth every six hours as needed prochlorperazine (COMPAZINE) 10 mg tablet Take 1 tablet by mouth every 6 hours as needed. 100 tablet 2 04/18/2025 9:20 AM EDT 03/28/2025 Active sennosides (SENNA LAX PO) (12 sources) sennosides (IRMA A LAX PO) Take by mouth. Active sodium polystyrene sulfonate 250 mg/ml oral suspension (4 sources) Start: 05-12-2025 SPS, WITH SORBITOL, 15-20 gram/60 mL susp suspension TAKE 60ML BY MOUTH FOR 1 DOSE 60 mL 05/12/2025 Active spironolactone 25 mg oral tablet (20 sources) Aldosterone Antagonist Start: 10-24-2024 End: 05-16-2025 take 1 tablet by mouth twice daily Spironolactone 25 mg tablet Active 25 MG PO Twice daily April 22, 2025 12:00am Complies with drug therapy sulfamethoxazole 800 mg / trimethoprim 160 mg oral tablet (2 sources) Dihydrofolate Reductase Inhibitor Antibacterial, Sulfonamide Antimicrobial Start: 10-24-2024 End: 11-11-2024 Bactrim D.S. 800 mg-160 mg Tab See Instructions, 24 tab(s), Refill(s) 0, 1 tab po BID x 7d, then 1 tab po QD x 10d, [id number], 182, cm, 10/24/24 9:12:00 EST, Height/Length Dosing, 130, kg, 10/24/24 9:12:00 EST, Weight Dosing Start Date: 10/24/24 Stop Date: 11/11/24 Status: Ordered Completed/Discontinued Medications Medication Drug Class(es) Dates Sig (Normalized) Sig (Original) bisacodyl 5 mg delayed release oral tablet (16 sources) Stimulant Laxative End: 04-18-2025 take 1 tablet by mouth once daily as needed for constipation bisacodyl EC (DULCOLAX, BISACODYL,) 5 mg EC tablet Take 5 mg by mouth once daily as needed for constipation. 04/18/2025 Discontinued (Discontinued by another Health Care Provider) cabozantinib 40 mg oral tablet (7 sources) Kinase Inhibitor Start: 04-02-2025 End: 05-02-2025 take 1 tablet by mouth once daily cabozantinib (CABOMETYX) 40 mg tablet Take 1 tablet (40 mg) by mouth once daily. 30 tablet 1 04/09/2025 04/09/2025 Discontinued (Changing Therapy/Dosage Form) 5 ml iron sucrose 20 mg/ml injection (1 source) Parenteral Iron Replacement Start: 02-17-2025 End: 02-17-2025 200 mg, INTRAVENOUS, ONCE, 1 dose, On Mon02/17/25 at 0930, May administer up to 200 mg via IV push over 5-10 minutes. Please conduct a 30 minute post-dose observation. NaCl 0.9% 500 mL (1 source) Start: 04-18-2025 End: 04-18-2025 INTRAVENOUS, at 999 mL/hr, Administer over 0.5 Hours, ONCE, 1 dose, On Mon04/18/25 at 1100 pembrolizumab 200 mg in NaCl 0.9% 66 mL (KEYTRUDA) (1 source) Start: 04-18-2025 End: 04-18-2025 200 mg, INTRAVENOUS, Administer over 30 Minutes, ONCE, 1 dose, On Mon04/18/25 at 1130, Approx Total Volume: 66 mL EXP: 04/22/2025 1115 Refrigerated Administer with 0.2 micron filter. tamsulosin hydrochloride 0.4 mg oral capsule (14 sources) alpha-Adrenergic Robles Start: 11-11-2024 End: 03-18-2025 take 1 capsule by mouth every twelve hours tamsulosin (FLOMAX) 0.4 mg Take 1 capsule by mouth every 12 hours. 11/11/2024 03/18/2025 Discontinued (Discontinued by Patient) Problems Active Problems Problem Classification Problem Date Documented Da te Episodic/Chronic Acute and unspecified renal failure (2 sources) Acute renal failure syndrome; Translations: [Acute kidney failure, unspecified] Onset: 03-04-2025 02-28-2025 Episodic Administrative/social admission (2 sources) Patient encounter status; Translations: [Counseling, unspecified] Onset: 04-01-2025 04-01-2025 Episodic Cancer of kidney and renal pelvis (20 sources) Malignant tumor of kidney; Translations: [Malignant neoplasm of unspecified kidney, except renal pelvis] Onset: 03-14-2025 Chronic Chronic kidney disease (4 sources) Chronic kidney disease stage 4; Translations: [Chronic kidney disease, stage 4 (severe)] 04-22-2025 Chronic Diabetes mellitus with complications (2 sources) Disorder of kidney due to diabetes mellitus; Translations: [Type 2 diabetes mellitus with diabetic nephropathy] 04-22-2025 Chronic Diabetes mellitus without complication (20 sources) Type 2 diabetes mellitus; Translations: [Type [...] urinary tract symptoms] Onset: 10-24-2024 10-24-2024 Chronic Hypertension with complications and secondary hypertension (2 sources) Hypertensive renal disease; Translations: [Hypertensive chronic kidney disease with stage 1 through stage 4 chronic kidney disease, or unspecified chronic kidney disease] 04-22-2025 Chronic Mood disorders (20 sources) Depressive disorder; Translations: [Depression, unspecified depression type] Onset: 02-07-2025 02-07-2025 Chronic Mood disorders (1 source) Mood disorders; Translations: [Depression, unspecified depression type] Onset: 02-07-2025 Other aftercare (3 sources) Taking high risk medication; Translations: [Other nursing home (current) drug therapy] 04-09-2025 Episodic Other aftercare (1 source) Other termite exterminator helper (current) drug therapy; Translations: [High risk medication use] Onset: 04-09-2025 Episodic Other diseases of bladder and urethra (1 source) Diverticulum of bladder Onset: 11-11-2024 03-11-2025 Chronic Other diseases of kidney and ureters (20 sources) Renal mass; Translations: [Other specified disorders of kidney and ureter] Onset: 02-28-2025 01-06-2025 Chronic Other diseases of kidney and ureters (1 source) Other specified disorders of kidney and ureter; Translations: [Renal mass, left] Onset: 01-24-2025 Chronic Other diseases of kidney and ureters (1 source) Urinary tract obstruction; Translations: [Other obstructive and reflux uropathy] Onset: 10-24-2024 Episodic Other gastrointestinal disorders (20 sources) Intestinal malabsorption; Translations: [Intestinal malabsorption, unspecified] Onset: 02-10-2025 02-10-2025 Chronic Other gastrointestinal disorders (1 source) Intestinal malabsorption, unspecified; Translations: [Intestinal malabsorption, unspecified type (HCC)] Onset: 02-10-2025 Chronic Other gastrointestinal disorders (3 sources) Constipation 10-24-2024 Episodic Other gastrointestinal disorders (1 source) Constipation, unspecified; Translations: [Constipation, unspecified] Onset: 10-24-2024 Episodic Other nutritional; endocrine; and metabolic disorders (20 sources) Obesity caused by energy imbalance; Translations: [Class 2 obesity due to excess calories without serious comorbidity in adult, unspecified BMI] Onset: 02-07-2025 02-07-2025 Chronic Other nutritional; endocrine; and metabolic disorders (1 source) Other obesity due to excess calories; Translations: [Class 2 obesity due to excess calories without serious comorbidity in adult, unspecified BMI] Onset: 02-07-2025 Chronic Other nutritional; endocrine; and metabolic disorders (2 sources) Hyperuricemia; Translations: [Hyperuricemia without signs of inflammatory arthritis and tophaceous disease] 04-22-2025 Episodic Residual codes; unclassified (20 sources) Obstructive sleep apnea syndrome; Translations: [Obstructive sleep apnea (adult) (pediatric)] Onset: 02-07-2025 02-07-2025 Chronic Residual codes; unclassified (1 source) Obstructive sleep apnea (adult) (pediatric); Translations: [ROSA M (obstructive sleep apnea)] Onset: 02-07-2025 Chronic Residual codes; unclassified (2 sources) History of nephrectomy; Translations: [Acquired absence of kidney] 04-22-2025 Episodic Secondary malignancies (20 sources) Secondary malignant neoplasm of retroperitoneal lymph nodes; Translations: [Secondary and unspecified malignant neoplasm of intra-abdominal lymph nodes] Onset: 04-09-2025 04-09-2025 Chronic Secondary malignancies (1 source) Secondary and unspecified malignant neoplasm of intra-abdominal lymph nodes; Translations: [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)] Onset: 04-09-2025 Chronic Thyroid disorders (4 sources) Thyroid nodule; Translations: [Nontoxic single thyroid nodule] Onset: 04-09-2025 04-09-2025 Chronic Unclassified (3 sources) Patient encounter status 10-24-2024 Unclassified (1 source) Renal Cell Cancer Onset: 05-16-2025 Unclassified (1 source) Class 2 obesity due to excess calories without serious comorbidity in adult, unspecified BMI; Translations: [Class 2 obesity due to excess calories without serious comorbidity in adult, unspecified BMI] Onset: 02-07-2025 Urinary tract infections (2 sources) Cystitis; Translations: [Other cystitis without hematuria] Onset: 03-14-2025 Episodic Past or Other Problems Problem Classification Problem Date Documented Date Episodic/Chronic Deficiency and other anemia (20 sources) Iron deficiency anemia; Translations: [Iron deficiency anemia, unspecified] Onset: 02-10-2025 02-10-2025 Episodic Deficiency and other anemia (1 source) Iron deficiency anemia, unspecified; Translations: [Iron deficiency anemia, unspecified iron deficiency anemia type] Onset: 02-10-2025 Episodic Neoplasms of unspecified nature or uncertain behavior (4 sources) Neoplasm of uncertain behavior of left kidney; 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] Onset: 01-03-2025 01-03-2025 Episodic Other diseases of kidney and ureters (1 source) Other obstructive and reflux uropathy; Translations: [BPH with obstruction/lower urinary tract symptoms] Onset: 02-07-2025 Episodic Other screening for suspected conditions (not mental disorders or infectious disease) (4 sources) Encounter for screening for malignant neoplasm of prostate; Translations: [Screening for malignant neoplasm done] Onset: 10-24-2024 Episodic Unclassified (1 source) Preprocedural examination done 02-07-2025 Results Test Name Value Interpretation Reference Range Facility [facility] 05-20-2025 [facility] Telephone ([facility]OP[facility]) SKYLER LE ([id number]) 1960 M Date Time Provider Department 05/20/25 TAMIKA MADISON SDOP[facility] During your visit today, we recorded the following information about you: Tamika Madison ollie 05/20/2025 8:38 AM Signed [facility] Patient Support fax received stating Skyler has been approved for free Lenvima until 10/01/2025. Tayo Madison, PharmD, BCOP Allergies As of Date: 05/20/2025 Noted Allergy Reaction FLOMAX (TAMSULOSIN) 02/27/2025 14 - Other: See Comments Comments: dizziness and back pain Date Reviewed: 05/16/2025 Reviewed by: Isabella Javier MA - Fully Assessed Reason for Visit: Medication Assistance Program [4078] Cmt: Lenvima free drug application approved Prescriptions as of 05/20/2025 - furosemide (LASIX) 40 mg tablet Take 1 tablet by mouth every 12 hours. - SPS, WITH SORBITOL, 15-20 gram/60 mL susp suspension TAKE 60ML BY MOUTH FOR 1 DOSE - sennosides (SENNA LAX PO) Take by mouth. - lenvatinib (LENVIMA) 10 mg/day (10 mg x 1) capsule Take 2 capsules by mouth once daily. - inulin (FIBER GUMMIES PO) Take 1 each by mouth two times a day. - prochlorperazine (COMPAZINE) 10 mg tablet Take 1 tablet by mouth every 6 hours as needed. - ondansetron (ZOFRAN) 8 mg tablet Take 1 tablet by mouth every 8 hours as needed for nausea/vomiting. - docusate sodium (COLACE ORAL) Take 1 capsule by mouth two times a day. - allopurinol (ZYLOPRIM) 300 mg tablet Take 300 mg by mouth two times a day. - acetaminophen (TYLENOL) 325 mg tablet Take 2 tablets by mouth every 6 hours as needed for pain. - metoprolol tartrate, short acting, (LOPRESSOR) 100 mg tablet Take 100 mg by mouth two times a day. - dutasteride (AVODART) 0.5 mg capsule Take 0.5 mg by mouth once daily. - metFORMIN (GLUCOPHAGE) 1,000 mg tablet Take 500 mg by mouth two times a day. - FLUoxetine (PROZAC) 10 mg capsule Take 10 mg by mouth once daily. Problem List As Of Date 05/20/2025 Noted Resolved BPH with obstruction/lower urinary tract sympto*02/07/2025 Depression [F32.A] 02/07/2025 Type 2 diabetes mellitus without complications *02/07/2025 Hypertension [I10] 02/07/2025 ROSA M (obstructive sleep apnea) [G47.33] 02/07/2025 Class 2 obesity due to excess calories without *02/07/2025 Iron deficiency anemia, unspecified [D50.9] 02/10/2025 Intestinal malabsorption (HCC) [K90.9] 02/10/2025 Kidney mass [N28.89] 02/28/2025 Renal cell carcinoma of left kidney (HCC) [C64.*03/18/2025 Secondary malignant 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 Encounter Status:Closed by TAMIKA MADISON on 05/20/25 Normal [facility] CBC W Auto Differential pane l (Bld)on 05-16-2025 Basophils (Bld) [#/Vol] 0.13 10*3/uL High <0.11 [facility] Comment on above: Order Comment: Speci men Type: BLOOD SPECIMENOrdering Facility: [facility] Address: [address] [place] [address] Performed By: #### 5 7021-8 ####[facility] LABCLIA [id number] [place] [address] Basophils/100 WBC (Bld) 1.1 % Normal [facility] Comment on above: Order Comment: Speci men Type: BLOOD SPECIMENOrdering Facility: [facility] Address: [address] [place] [address] Performed By: #### 5 7021-8 ####[facility] LABCLIA [id number] [place] [address] Differential cell count method Nom (Bld) Auto Normal [facility] Comment on above: Order Comment: Speci men Type: BLOOD SPECIMENOrdering Facility: [facility] Address: [address] [place] [address] Performed By: #### 5 7021-8 ####[facility] LABCLIA [id number] [place] [address] Eosinophils (Bld) [#/Vol] 0.20 10*3/uL Normal <0.46 [facility] Comment on above: Order Comment: Speci men Type: BLOOD SPECIMENOrdering Facility: [facility] Address: [address] [place] [address] Performed By: #### 5 7021-8 ####[facility]CLIA [id number] [place] [address] Eosinophils/100 WBC (Bld) 1.8 % Normal [facility] Comment on above: Order Comment: Speci men Type: BLOOD SPECIMENOrdering Facility: [facility] Address: [address] [place] [address] Performed By: #### 5 7021-8 ####[facility]CLIA [id number] [place] [address] Erythrocyte distribution width (RBC) [Ratio] 18.8 % High 11.5-15.0 [facility] Comment on above: Order Comment: Speci men Type: BLOOD SPECIMENOrdering Facility: [facility] Address: [address] [place] [address] Performed By: #### 5 7021-8 ####[facility] LABCLIA [id number] [place] [address] Hematocrit (Bld) [Volume fraction] 37.2 % Low 39.0-51.0 [facility] Comment on above: Order Comment: Speci men Type: BLOOD SPECIMENOrdering Facility: [facility] Address: [address] [place] [address] Performed By: #### 5 7021-8 ####[facility] LABCLIA [id number] [place] [address] Hemoglobin (Bld) [Mass/Vol] 12.4 g/dL Low 13.0-17.0 [facility] Comment on above: Order Comment: Speci men Type: BLOOD SPECIMENOrdering Facility: [facility] Address: [address] [place] [address] Performed By: #### 5 7021-8 ####[facility] LABCLIA [id number] [place] [address] Immature granulocytes (Bld) [#/Vol] 0.05 10*3/uL Normal <0.10 [facility] Comment on above: Order Comment: Speci men Type: BLOOD SPECIMENOrdering Facility: [facility] Address: [address] [place] [address] Performed By: #### 5 7021-8 ####[facility] LABCLIA [id number] [place] [address] Immature granulocytes/100 WBC (Bld) 0.4 % Normal [facility] Comment on above: Order Comment: Speci men Type: BLOOD SPECIMENOrdering Facility: [facility] Address: [address] [place] [address] Performed By: #### 5 7021-8 ####[facility] LABCLIA [id number] [place] [address] Lymphocytes (Bld) [#/Vol] 1.58 10*3/uL Normal 1.00-4.00 [facility] Comment on above: Order Comment: Speci men Type: BLOOD SPECIMENOrdering Facility: [facility] Address: [address] [place] [address] Performed By: #### 5 7021-8 ####[facility] LABCLIA [id number] [place] [address] Lymphocytes/100 WBC (Bld) 13.9 % Normal [facility] Comment on above: Order Comment: Speci men Type: BLOOD SPECIMENOrdering Facility: [facility] Address: [address] [place] [address] Performed By: #### 5 7021-8 ####[facility] LABCLIA [id number] [place] [address] MCH (RBC) [Entitic mass] 26.7 pg Normal 26.0-34.0 [facility] Comment on above: Order Comment: Speci men Type: BLOOD SPECIMENOrdering Facility: [facility] Address: [address] [place] [address] Performed By: #### 5 7021-8 ####[facility] LABCLIA [id number] [place] [address] MCHC (RBC) [Mass/Vol] 33.3 g/dL Normal 30.5-36.0 [facility] Comment on above: Order Comment: Speci men Type: BLOOD SPECIMENOrdering Facility: [facility] Address: [address] [place] [address] Performed By: #### 5 7021-8 ####[facility] LABCLIA [id number] [place] [address] MCV (RBC) [Entitic vol] 80.0 fL Normal 80.0-100.0 [facility] Comment on above: Order Comment: Speci men Type: BLOOD SPECIMENOrdering Facility: [facility] Address: [address] [place] [address] Performed By: #### 5 7021-8 ####[facility] LABCLIA [id number] [place] [address] Monocytes (Bld) [#/Vol] 0.91 10*3/uL High <0.87 [facility] Comment on above: Order Comment: Speci men Type: BLOOD SPECIMENOrdering Facility: [facility] Address: [address] [place] [address] Performed By: #### 5 7021-8 ####[facility] LABCLIA [id number] [place] [address] Monocytes/100 WBC (Bld) 8.0 % Normal [facility] Comment on above: Order Comment: Speci men Type: BLOOD SPECIMENOrdering Facility: [facility] Address: [address] [place] [address] Performed By: #### 5 7021-8 ####[facility] LABCLIA [id number] [place] [address] Neutrophils (Bld) [#/Vol] 8.53 10*3/uL High 1.45-7.50 [facility] Comment on above: Order Comment: Speci men Type: BLOOD SPECIMENOrdering Facility: [facility] Address: [address] [place] [address] Performed By: #### 5 7021-8 ####[facility] LABCLIA [id number] [place] [address] Neutrophils/100 WBC (Bld) 74.8 % Normal [facility] Comment on above: Order Comment: Speci men Type: BLOOD SPECIMENOrdering Facility: [facility] Address: [address] [place] [address] Performed By: #### 5 7021-8 ####[facility] LABCLIA [id number] [place] [address] Nucleated RBC (Bld) [#/Vol] 10*3/uL Normal <0.01 [facility] Comment on above: Order Comment: Speci men Type: BLOOD SPECIMENOrdering Facility: [facility] Address: [address] [place] [address] Performed By: #### 5 7021-8 ####[facility] LABCLIA [id number] [place] [address] Nucleated RBC/100 WBC (Bld) [Ratio] 0.0 /100 WBC Normal [facility] Comment on above: Order Comment: Speci men Type: BLOOD SPECIMENOrdering Facility: [facility] Address: [address] [place] [address] Performed By: #### 5 7021-8 ####[facility] LABCLIA [id number] [place] [address] Platelet mean volume (Bld) [Entitic vol] 9.2 fL Normal 9.0-12.7 [facility] Comment on above: Order Comment: Speci men Type: BLOOD SPECIMENOrdering Facility: [facility] Address: [address] [place] [address] Performed By: #### 5 7021-8 ####[facility] LABCLIA [id number] [place] [address] Platelets (Bld) [#/Vol] 256 10*3/uL Normal 150-400 [facility] Comment on above: Order Comment: Speci men Type: BLOOD SPECIMENOrdering Facility: [facility] Address: [address] [place] [address] Performed By: #### 5 7021-8 ####[facility] LABIA [id number] [place] [address] RBC (Bld) [#/Vol] 4.65 10*6/uL Normal 4.20-6.00 [facility] Comment on above: Order Comment: Speci men Type: BLOOD SPECIMENOrdering Facility: [facility] Address: [address] [place] [address] Performed By: #### 5 7021-8 ####[facility] LABIA [id number] [place] [address] WBC (Bld) [#/Vol] 11.40 10*3/uL High 3.70-11.00 [facility] Comment on above: Order Comment: Speci men Type: BLOOD SPECIMENOrdering Facility: [facility] Address: [address] [place], [place] [address] Performed By: #### 5 7021-8 ####[facility] LABIA [id number] [place] [address] CNOVSPon 05-16-2025 OVS Visit (SP) Office (HEMASA) SKYLER LE ([id number]) 1960 M Date Time Provider Department 05/16/25 9:20 AM ERNESTO [place] During your visit today, we recorded the following information about you: Temperature Pulse Respiration Blood pressure 97.2 degrees 51/minute 16/minute 139/80 Weight Height 116.9 kg 1.78 m Ernesto Phoenix MD 05/16/2025 9:45 AM Signed PATIENT NAME: Skyler Le CLINIC NO.: [id number] ATTENDING PHYSICIAN: Ernesto Phoenix MD DATE OF SERVICE: 05/16/[address] Bing Arvizu [address] [address] [facility] [address] thank you for referring Skyler Le for an opinion regarding Kidney cancer. Some of the elements of this note have been copied from my previous progress note dated 05/09/25. All the information has been reviewed carefully. CHIEF COMPLAINT: Kidney cancer HPI: Skyler Le is a 65 year old year old [...] unusual findings. Doing well - Works in [employer]. - No smoking - No alcohol. - No family h/o cancer. - No major complaints. 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 METASTATIC DISEASE: No metabolically active distant metastases - MRI brain - Normal. - Doing well - No major complaints. 04/18/25: - Seen by on 04/09/25 - Doing well - No major complaints. - Seeing nephrology on Monday05/09/25: - Cycle 2 keytruda today - ECHO showed normal EF on 05/05/25 - Seen by nephrology 1 week ago. 05/16/25: - Doing well - No major complaints - - Nephrology. Next appt in june. - Started lasix on Monday Current Outpatient Medications Medication Sig SPS, WITH SORBITOL, 15-20 gram/60 mL susp suspension TAKE 60ML BY MOUTH FOR 1 DOSE sennosides (SENNA LAX PO) Take by mouth. lenvatinib (LENVIMA) 10 mg/day (10 mg x 1) capsule Take 2 capsules by mouth once daily. inulin (FIBER GUMMIES PO) Take 1 each by mouth two times a day. prochlorperazine (COMPAZINE) 10 mg tablet Take 1 tablet by mouth every 6 hours as needed. ondansetron (ZOFRAN) 8 mg tablet Take 1 tablet by mouth every 8 hours as needed for nausea/vomiting. docusate sodium (COLACE ORAL) Take 1 capsule by mouth two times a day. allopurinol (ZYLOPRIM) 300 mg tablet Take 300 mg by mouth two times a day. acetaminophen (TYLENOL) 325 mg tablet Take 2 [...] numbness or tingling of hands/feet. No weakness. All negative except mentioned in HPI. PHYSICAL EXAMINATION: There were no vitals taken for this visit. There were no (more content not included)... Normal [facility] Comprehensive metabolic 2000 panelon 05-16-2025 Albumin [Mass/Vol] 4.3 g/dL Normal 3.9-4.9 [facility] Comment on above: Order Comment: Speci men Type: BLOOD SPECIMENOrdering Facility: [facility] Address: [address] [place] [address] Performed By: #### 2 4323-8 ####[facility] LABCLIA [id number] [place] [address] ALP [Catalytic activity/Vol] 91 U/L Normal 38-113 [facility] Comment on above: Order Comment: Speci men Type: BLOOD SPECIMENOrdering Facility: [facility] Address: [address] [place] [address] Performed By: #### 2 4323-8 ####[facility] LABCLIA [id number] [place] [address] ALT [Catalytic activity/Vol] 11 U/L Normal 10-54 [facility] Comment on above: Order Comment: Speci men Type: BLOOD SPECIMENOrdering Facility: [facility] Address: [address] [place] [address] Performed By: #### 2 4323-8 ####[facility] LABCLIA [id number] [place] [address] Anion gap [Moles/Vol] 12 mmol/L Normal 8-15 [facility] Comment on above: Order Comment: Speci men Type: BLOOD SPECIMENOrdering Facility: [facility] Address: [address] [place] [address] Performed By: #### 2 4323-8 ####[facility] LABCLIA [id number] [place] [address] AST [Catalytic activity/Vol] 15 U/L Normal 14-40 [facility] Comment on above: Order Comment: Speci men Type: BLOOD SPECIMENOrdering Facility: [facility] Address: [address] [place], [place] [address] Performed By: #### 2 4323-8 ####[facility] LABCLIA [id number] [place] [address] Bilirubin [Mass/Vol] 0.2 mg/dL Normal 0.2-1.3 [facility] Comment on above: Order Comment: Speci men Type: BLOOD SPECIMENOrdering Facility: [facility] Address: [address] [place], [place] [address] Performed By: #### 2 4323-8 ####[facility] LABCLIA [id number] [place] [address] Calcium [Mass/Vol] 9.3 mg/dL Normal 8.5-10.2 [facility] Comment on above: Order Comment: Speci men Type: BLOOD SPECIMENOrdering Facility: [facility] Address: [address] [place] [address] Performed By: #### 2 4323-8 ####[facility] LABCLIA [id number] [place] [address] Chloride [Moles/Vol] 99 mmol/L Normal 98-107 [facility] Comment on above: Order Comment: Speci men Type: BLOOD SPECIMENOrdering Facility: [facility] Address: [address] [place] [address] Performed By: #### 2 4323-8 ####[facility] LABCLIA [id number] [place] [address] CO2 [Moles/Vol] 23 mmol/L Normal 22-30 [facility] Comment on above: Order Comment: Speci men Type: BLOOD SPECIMENOrdering Facility: [facility] Address: [address] [place], [place] [address] Performed By: #### 2 4323-8 ####[facility] LABCLIA [id number] [place] [address] Creatinine [Mass/Vol] 2.97 mg/dL High 0.73-1.22 [facility] Comment on above: Order Comment: Miguelina thomas Type: BLOOD SPECIMENOrdering Facility: [facility] Address: [address] [place] [address] Performed By: #### 2 4323-8 ####[facility] LABCLIA [id number] [place] [address] eGFRcr SerPlBld CKD-EPI 2020 22 mL/min/1.73m??? Low >=60 [facility] Comment on above: Order Comment: Miguelina thomas Type: BLOOD SPECIMENOrdering Facility: [facility] Address: [address] [place] [address] Result Comment: Samantha mated Glomerular Filtration Rate [...] reflect actual GFR. Performed By: #### 2 4323-8 ####[facility] LABCLIA [id number] [place] [address] Glucose [Mass/Vol] 102 mg/dL High 74-99 [facility] Comment on above: Order Comment: Miguelina thomas Type: BLOOD SPECIMENOrdering Facility: [facility] Address: [address] [place], [place] [address] Result Comment: The [place] Diabetes [employer] (ADA) provides guidance for cutoff [...] Standards of Medical Care in Diabetes 2016, [place] [employer]. Diabetes Care. 2016.39(Suppl 1). Performed By: #### 2 4323-8 ####[facility] LABCLIA [id number] [place] [address] Potassium [Moles/Vol] 4.9 mmol/L Normal 3.7-5.1 [facility] Comment on above: Order Comment: Speci men Type: BLOOD SPECIMENOrdering Facility: [facility] Address: [address] [place] [address] Performed By: #### 2 4323-8 ####[facility] LABCLIA [id number] [place] [address] Protein [Mass/Vol] 7.5 g/dL Normal 6.3-8.0 [facility] Comment on above: Order Comment: Speci men Type: BLOOD SPECIMENOrdering Facility: [facility] Address: [address] [place] [address] Performed By: #### 2 4323-8 ####[facility] LABCLIA [id number] [place] [address] Sodium [Moles/Vol] 134 mmol/L Low 136-144 [facility] Comment on above: Order Comment: Speci men Type: BLOOD SPECIMENOrdering Facility: [facility] Address: [address] [place] [address] Performed By: #### 2 4323-8 ####[facility] LABCLIA [id number] [place] [address] Urea nitrogen [Mass/Vol] 51 mg/dL High 9-24 [facility] Comment on above: Order Comment: Speci men Type: BLOOD SPECIMENOrdering Facility: [facility] Address: [address] [place] [id number] Performed By: #### 2 4323-8 ####[facility] LABCLIA [id number] [place] [address] CNPNon 05-12-2025 [facility] Telephone (HEMASA) SKYLER LE ([id number]) 1960 M Date Time Provider Department 05/12/25 VALERIE MOSQUEDA HEMASA During your visit today, we recorded the following information about you: Valerie Mosqueda, JUANA 05/12/2025 8:54 AM Signed Pt calls stating he has a prescription that he picked up at the pharmacy that he knew nothing about and isn't sure if he's suppose to take it or not. Pt was prescribed sodium polystyrene sulfonate and isn't sure why. Reviewed Dr Ring's progress note from Monday which states he's prescribing for elevated potassium. Encouraged pt to take it this morning. Pt scheduled to come in on Monday for labs and follow up. Pt aware of this and verbalized understanding. JUANA Son Adarsh, MD 05/12/2025 9:04 AM Signed OK fine. Thank you Allergies As of Date: 05/12/2025 Noted Allergy Reaction FLOMAX (TAMSULOSIN) 02/27/2025 14 - Other: See Comments Comments: dizziness and back pain Date Reviewed: 05/09/2025 Reviewed by: Brigida Mata RN - Fully Assessed Reason for Visit: Care Coordination [7270] Cmt: Medication question Prescriptions as of 05/12/2025 - SPS, WITH SORBITOL, 15-20 gram/60 mL susp suspension TAKE 60ML BY MOUTH FOR 1 DOSE - sennosides (SENNA LAX PO) Take by mouth. - lenvatinib (LENVIMA) 10 mg/day (10 mg x 1) capsule Take 2 capsules by mouth once daily. - inulin (FIBER GUMMIES PO) Take 1 each by mouth two times a day. - prochlorperazine (COMPAZINE) 10 mg tablet Take 1 tablet by mouth every 6 hours as needed. - ondansetron (ZOFRAN) 8 mg tablet Take 1 tablet by mouth every 8 hours as needed for nausea/vomiting. - docusate sodium (COLACE ORAL) Take 1 capsule by mouth two times a day. - allopurinol (ZYLOPRIM) 300 mg tablet Take 300 mg by mouth two times a day. - acetaminophen (TYLENOL) 325 mg tablet Take 2 tablets by mouth every 6 hours as needed for pain. - metoprolol tartrate, short acting, (LOPRESSOR) 100 mg tablet Take 100 mg by mouth two times a day. - dutasteride (AVODART) 0.5 mg capsule Take 0.5 mg by mouth once daily. - spironolactone (ALDACTONE) 25 mg tablet Take 25 mg by mouth two times a day. - metFORMIN (GLUCOPHAGE) 1,000 mg tablet Take 500 mg by mouth two times a day. - FLUoxetine (PROZAC) 10 mg capsule Take 10 mg by mouth once daily. 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 His spironolactone was d/c'd and this was changed to lasix. Pt unsure of dose at this time. Valerie Mosqueda RN Allergies As of Date: 05/12/2025 Noted Allergy Reaction FLOMAX (TAMSULOSIN) 02/27/2025 14 - Other: See Comments Comments: dizziness and back pain Date Reviewed: 05/09/2025 Reviewed by: Brigida Mata RN - Fully Assessed Reason for Visit: Care Coordination [5871] Cmt: Medication update Prescriptions as of 05/12/2025 - SPS, WITH SORBITOL, 15-20 gram/60 mL susp suspension TAKE 60ML BY MOUTH FOR 1 DOSE - sennosides (SENNA LAX PO) Take by mouth. - lenvatinib (LENVIMA) 10 mg/day (10 mg x 1) capsule Take 2 capsules by mouth once daily. - inulin (FIBER GUMMIES PO) Take 1 each by mouth two times a day. - prochlorperazine (COMPAZINE) 10 mg tablet Take 1 tablet by mouth every 6 hours as needed. - ondansetron (ZOFRAN) 8 mg tablet Take 1 tablet by mouth every 8 hours as needed for nausea/vomiting. - docusate sodium (COLACE ORAL) Take 1 capsule by mouth two times a day. - allopurinol (ZYLOPRIM) 300 mg tablet Take 300 mg by mouth two times a day. - acetaminophen (TYLENOL) 325 mg tablet Take 2 tablets by mouth every 6 hours as needed for pain. - metoprolol tartrate, short acting, (LOPRESSOR) 100 mg tablet Take 100 mg by mouth two times a day. - dutasteride (AVODART) 0.5 mg capsule Take 0.5 mg by mouth once daily. - spironolactone (ALDACTONE) 25 mg tablet Take 25 mg by mouth two times a day. - metFORMIN (GLUCOPHAGE) 1,000 mg tablet Take 500 mg by mouth two times a day. - FLUoxetine (PROZAC) 10 mg capsule Take 10 mg by mouth once daily. 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.*03/18/2025 Secondary malignant 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 Encounter Status:Closed by VALERIE MOSQUEDA on 05/12/25 Normal [facility] CBC W Auto Differential pane l (Bld)on 05-09-2025 Basophils (Bld) [#/Vol] 0.09 10*3/uL Normal <0.11 [facility] Comment on above: Order Comment: Speci men Type: BLOOD SPECIMENOrdering Facility: [facility] Address: [address] [place] [address] Performed By: #### 5 7021-8 ####[facility] LABCLIA [id number] [place] [address] Basophils/100 WBC (Bld) 0.9 % Normal [facility] Comment on above: Order Comment: Speci men Type: BLOOD SPECIMENOrdering Facility: [facility] Address: [address] [place] [address] Performed By: #### 5 7021-8 ####[facility] LABCLIA [id number] [place] [address] Differential cell count method Nom (Bld) Auto Normal [facility] Comment on above: Order Comment: Speci men Type: BLOOD SPECIMENOrdering Facility: [facility] Address: [address] [place] [address] Performed By: #### 5 7021-8 ####[facility] LABCLIA [id number] [place] [address] Eosinophils (Bld) [#/Vol] 0.17 10*3/uL Normal <0.46 [facility] Comment on above: Order Comment: Speci men Type: BLOOD SPECIMENOrdering Facility: [facility] Address: [address] [place] [address] Performed By: #### 5 7021-8 ####[facility] LABCLIA [id number] [place] [address] Eosinophils/100 WBC (Bld) 1.6 % Normal [facility] Comment on above: Order Comment: Speci men Type: BLOOD SPECIMENOrdering Facility: [facility] Address: [address] [place] [address] Performed By: #### 5 7021-8 ####[facility] LABCLIA [id number] [place] [address] Erythrocyte distribution width (RBC) [Ratio] 19.9 % High 11.5-15.0 [facility] Comment on above: Order Comment: Speci men Type: BLOOD SPECIMENOrdering Facility: [facility] Address: [address] [place] [address] Performed By: #### 5 7021-8 ####[facility] LABCLIA [id number] [place] [address] Hematocrit (Bld) [Volume fraction] 34.3 % Low 39.0-51.0 [facility] Comment on above: Order Comment: Speci men Type: BLOOD SPECIMENOrdering Facility: [facility] Address: [address] [place] [address] Performed By: #### 5 7021-8 ####[facility] LABCLIA [id number] [place] [address] Hemoglobin (Bld) [Mass/Vol] 11.6 g/dL Low 13.0-17.0 [facility] Comment on above: Order Comment: Speci men Type: BLOOD SPECIMENOrdering Facility: [facility] Address: [address] [place] [address] Performed By: #### 5 7021-8 ####[facility] LABCLIA [id number] [place] [address] Immature granulocytes (Bld) [#/Vol] 0.04 10*3/uL Normal <0.10 [facility] Comment on above: Order Comment: Speci men Type: BLOOD SPECIMENOrdering Facility: [facility] Address: [address] [place] [address] Performed By: #### 5 7021-8 ####[facility] LABCLIA [id number] [place] [address] Immature granulocytes/100 WBC (Bld) 0.4 % Normal [facility] Comment on above: Order Comment: Speci men Type: BLOOD SPECIMENOrdering Facility: [facility] Address: [address] [place] [address] Performed By: #### 5 7021-8 ####[facility] LABCLIA [id number] [place] [address] Lymphocytes (Bld) [#/Vol] 1.82 10*3/uL Normal 1.00-4.00 [facility] Comment on above: Order Comment: Speci men Type: BLOOD SPECIMENOrdering Facility: [facility] Address: [address] [place] [address] Performed By: #### 5 7021-8 ####[facility] LABCLIA [id number] [place] [address] Lymphocytes/100 WBC (Bld) 17.3 % Normal [facility] Comment on above: Order Comment: Speci men Type: BLOOD SPECIMENOrdering Facility: [facility] Address: [address] [place] [address] Performed By: #### 5 7021-8 ####[facility] LABCLIA [id number] [place] [address] MCH (RBC) [Entitic mass] 26.8 pg Normal 26.0-34.0 [facility] Comment on above: Order Comment: Speci men Type: BLOOD SPECIMENOrdering Facility: [facility] Address: [address] [place] [address] Performed By: #### 5 7021-8 ####[facility] LABCLIA [id number] [place] [address] MCHC (RBC) [Mass/Vol] 33.8 g/dL Normal 30.5-36.0 [facility] Comment on above: Order Comment: Speci men Type: BLOOD SPECIMENOrdering Facility: [facility] Address: [address] [place] [address] Performed By: #### 5 7021-8 ####[facility] LABCLIA [id number] [place] [address] MCV (RBC) [Entitic vol] 79.2 fL Low 80.0-100.0 [facility] Comment on above: Order Comment: Speci men Type: BLOOD SPECIMENOrdering Facility: [facility] Address: [address] [place] [address] Performed By: #### 5 7021-8 ####[facility] LABCLIA [id number] [place] [address] Monocytes (Bld) [#/Vol] 0.87 10*3/uL High <0.87 [facility] Comment on above: Order Comment: Speci men Type: BLOOD SPECIMENOrdering Facility: [facility] Address: [address] [place] [address] Performed By: #### 5 7021-8 ####[facility] LABCLIA [id number] [place] [address] Monocytes/100 WBC (Bld) 8.3 % Normal [facility] Comment on above: Order Comment: Speci men Type: BLOOD SPECIMENOrdering Facility: [facility] Address: [address] [place] [address] Performed By: #### 5 7021-8 ####[facility] LABCLIA [id number] [place] [address] Neutrophils (Bld) [#/Vol] 7.54 10*3/uL High 1.45-7.50 [facility] Comment on above: Order Comment: Speci men Type: BLOOD SPECIMENOrdering Facility: [facility] Address: [address] [place] [address] Performed By: #### 5 7021-8 ####[facility] LABCLIA [id number] [place] [address] Neutrophils/100 WBC (Bld) 71.5 % Normal [facility] Comment on above: Order Comment: Speci men Type: BLOOD SPECIMENOrdering Facility: [facility] Address: [address] [place] [address] Performed By: #### 5 7021-8 ####[facility] LABCLIA [id number] [place] [address] Nucleated RBC (Bld) [#/Vol] 10*3/uL Normal <0.01 [facility] Comment on above: Order Comment: Speci men Type: BLOOD SPECIMENOrdering Facility: [facility] Address: [address] [place] [address] Performed By: #### 5 7021-8 ####[facility] LABCLIA [id number] [place] [address] Nucleated RBC/100 WBC (Bld) [Ratio] 0.0 /100 WBC Normal [facility] Comment on above: Order Comment: Speci men Type: BLOOD SPECIMENOrdering Facility: [facility] Address: [address] [place] [address] Performed By: #### 5 7021-8 ####[facility] LABCLIA [id number] [place] [address] Platelet mean volume (Bld) [Entitic vol] 9.2 fL Normal 9.0-12.7 [facility] Comment on above: Order Comment: Speci men Type: BLOOD SPECIMENOrdering Facility: [facility] Address: [address] [place] [address] Performed By: #### 5 7021-8 ####[facility] LABIA [id number] [place] [address] Platelets (Bld) [#/Vol] 227 10*3/uL Normal 150-400 [facility] Comment on above: Order Comment: Speci men Type: BLOOD SPECIMENOrdering Facility: [facility] Address: [address] [place] [address] Performed By: #### 5 7021-8 ####[facility] [id number] [place] [address] RBC (Bld) [#/Vol] 4.33 10*6/uL Normal 4.20-6.00 [facility] Comment on above: Order Comment: Speci men Type: BLOOD SPECIMENOrdering Facility: [facility] Address: [address] [place] [address] Performed By: #### 5 7021-8 ####[facility] LABIA [id number] [place] [address] WBC (Bld) [#/Vol] 10.53 10*3/uL Normal 3.70-11.00 [facility] Comment on above: Order Comment: Speci men Type: BLOOD SPECIMENOrdering Facility: [facility] Address: [address] [place] [address] Performed By: #### 5 7021-8 ####[facility] LABIA [id number] [place] [address] CNOVSPon 05-09-2025 CNOVSP Visit (SP) Office (HEMASA) SKYLER LE ([id number]) 1960 M Date Time Provider Department 05/09/25 9:20 AM [facility] During your visit today, we recorded the following information about you: Temperature Pulse Respiration Blood pressure 98.3 degrees 52/minute 16/minute 146/81 Weight Height 119.2 kg 1.78 m Ernesto Phoenix MD 05/09/2025 11:02 AM Signed PATIENT NAME: Skyler Le CLINIC NO.: [id number] ATTENDING PHYSICIAN: Ernesto Phoenix MD DATE OF SERVICE: 05/09/[address] Bing Arvizu [address] [facility] [address] thank you for referring Skyler Le for an opinion regarding Kidney cancer. Some of the elements of this note have been copied from my previous progress note dated 04/18/25. All the information has been reviewed carefully. CHIEF COMPLAINT: Kidney cancer HPI: Skyler Le is a 65 year old year old [...] unusual findings. Doing well - Works in [employer]. - No smoking - No alcohol. - No family h/o cancer. - No major complaints. 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 METASTATIC DISEASE: No metabolically active distant metastases - MRI brain - Normal. - Doing well - No major complaints. 04/18/25: - Seen by on 04/09/25 - Doing well - No major complaints. - Seeing nephrology on Monday05/09/25: - Cycle 2 keytruda today - ECHO showed normal EF on 05/05/25 - Seen by nephrology 1 week ago. - Current Outpatient Medications Medication Sig sennosides (SENNA LAX PO) Take by mouth. lenvatinib (LENVIMA) 10 mg/day (10 mg x 1) capsule Take 2 capsules by mouth once daily. inulin (FIBER GUMMIES PO) Take 1 each by mouth two times a day. prochlorperazine (COMPAZINE) 10 mg tablet Take 1 tablet by mouth every 6 hours as needed. ondansetron (ZOFRAN) 8 mg tablet Take 1 tablet by mouth every 8 hours as needed for nausea/vomiting. docusate sodium (COLACE ORAL) Take 1 capsule by mouth two times a day. allopurinol (ZYLOPRIM) 300 mg tablet Take 300 mg by mouth two times a day. acetaminophen (TYLENOL) 325 mg tablet Take 2 [...] numbness or tingling of hands/feet. No weakness. All negative except mentioned in HPI. PHYSICAL EXAMINATION: There were no vitals taken for this visit. There were no vitals taken for this visit. Last 3 Encounter Wt Readings: Date: Wt: 02/07/2025 124.7 kg (275 lb) 01/03/2025 124.7 kg (275 lb) General appearance:ECOG PERFORMANCE STATUS: 0- Fully active, able to car (more content not included)... Normal [facility] Comprehensive metabolic 2000 panelon 05-09-2025 Albumin [Mass/Vol] 4.2 g/dL Normal 3.9-4.9 [facility] Comment on above: Order Comment: Speci men Type: BLOOD SPECIMENOrdering Facility: [facility] Address: [address] [place] [address] Performed By: #### 1 9123-9, 62050-0 ####[facility] LABCLIA [id number] [place] [address] ALP [Catalytic activity/Vol] 89 U/L Normal 38-113 [facility] Comment on above: Order Comment: Speci men Type: BLOOD SPECIMENOrdering Facility: [facility] Address: [address] [id number] Performed By: #### 1 9123-9, 84634-7 ####[facility] LABCLIA [id number] [place] [address] ALT [Catalytic activity/Vol] 10 U/L Normal 10-54 [facility] Comment on above: Order Comment: Speci men Type: BLOOD SPECIMENOrdering Facility: [facility] Address: [address] [place] [address] Performed By: #### 1 9123-9, ####[facility] LABCLIA [id number] [place] [address] Anion gap [Moles/Vol] 10 mmol/L Normal 8-15 [facility] Comment on above: Order Comment: Speci men Type: BLOOD SPECIMENOrdering Facility: [facility] Address: [address] [place] [address] Performed By: #### 1 9123-9, 41679-2 ####[facility] LABCLIA [id number] [place] [address] AST [Catalytic activity/Vol] 13 U/L Low 14-40 [facility] Comment on above: Order Comment: Speci men Type: BLOOD SPECIMENOrdering Facility: [facility] Address: [address] [place] [address] Performed By: #### 1 9123-9, ####[facility] LABCLIA [id number] [place] [address] Bilirubin [Mass/Vol] 0.3 mg/dL Normal 0.2-1.3 [facility] Comment on above: Order Comment: Speci men Type: BLOOD SPECIMENOrdering Facility: [facility] Address: [address] [place] [address] Performed By: #### 1 9123-9, ####[facility] LABCLIA [id number] [place] [address] Calcium [Mass/Vol] 9.6 mg/dL Normal 8.5-10.2 [facility] Comment on above: Order Comment: Speci men Type: BLOOD SPECIMENOrdering Facility: [facility] Address: [address] [place] [address] Performed By: #### 1 9123-9, 32166-5 ####[facility] LABCLIA [id number] [place] [address] Chloride [Moles/Vol] 105 mmol/L Normal 98-107 [facility] Comment on above: Order Comment: Speci men Type: BLOOD SPECIMENOrdering Facility: [facility] Address: [address] [place] [address] Performed By: #### 1 9123-9, ####[facility] LABCLIA [id number] [place] [address] CO2 [Moles/Vol] 20 mmol/L Low 22-30 [facility] Comment on above: Order Comment: Speci men Type: BLOOD SPECIMENOrdering Facility: [facility] Address: [address] [place] [address] Performed By: #### 1 9123-9, ####[facility] LABCLIA [id number] [place] [address] Creatinine [Mass/Vol] 2.47 mg/dL High 0.73-1.22 [facility] Comment on above: Order Comment: Speci men Type: BLOOD SPECIMENOrdering Facility: [facility] Address: [address] [place] [address] Performed By: #### 1 9123-9, ####[facility] LABCLIA [id number] [place] [address] eGFRcr SerPlBld CKD-EPI 2020 28 mL/min/1.73m??? Low >=60 [facility] Comment on above: Order Comment: Speci men Type: BLOOD SPECIMENOrdering Facility: [facility] Address: [address] [place] [address] Result Comment: Samantha mated Glomerular Filtration Rate [...] accurately reflect actual GFR. Performed By: #### 1 9123-9, ####[facility] LABCLIA [id number] [place] [address] Glucose [Mass/Vol] 91 mg/dL Normal 74-99 [facility] Comment on above: Order Comment: Speci men Type: BLOOD SPECIMENOrdering Facility: [facility] Address: [address] [place] [address] Result Comment: The [place] Diabetes Association (ADA) provides guidance for cutoff [...] Standards of Medical Care in Diabetes 2016, [place] [employer]. Diabetes Care. 2016.39(Suppl 1). Performed By: #### 1 9123-9, 45310-4 ####[facility] LABCLIA [id number] [place] [address] Potassium [Moles/Vol] 5.4 mmol/L High 3.7-5.1 [facility] Comment on above: Order Comment: Speci men Type: BLOOD SPECIMENOrdering Facility: [facility] Address: [address] [place] [address] Performed By: #### 1 9123-9, ####[facility] LABCLIA [id number] [place] [address] Protein [Mass/Vol] 7.6 g/dL Normal 6.3-8.0 [facility] Comment on above: Order Comment: Speci men Type: BLOOD SPECIMENOrdering Facility: [facility] Address: [address] [place], [place] [address] Performed By: #### 1 9123-9, 32249-3 ####[facility] LABCLIA [id number] [place] [address] Sodium [Moles/Vol] 135 mmol/L Low 136-144 [facility] Comment on above: Order Comment: Speci men Type: BLOOD SPECIMENOrdering Facility: [facility] Address: [address] [place] [address] Performed By: #### 1 9123-9, 23279-3 ####[facility] LABCLIA [id number] [place] [address] Urea nitrogen [Mass/Vol] 34 mg/dL High 9-24 [facility] Comment on above: Order Comment: Speci men Type: BLOOD SPECIMENOrdering Facility: [facility] Address: [address] [place] [address] Performed By: #### 1 9123-9, 94035-2 ####[facility] LABCLIA [id number] [place] [address] Magnesium SerPl-mCncon 05-09 Magnesium [Mass/Vol] 1.8 mg/dL Normal 1.7-2.3 [facility] Comment on above: Order Comment: Speci men Type: BLOOD SPECIMENOrdering Facility: [facility] Address: [address] [place] [address] Performed By: #### 1 9123-9, 68336-8 ####[facility] LABCLIA [id number] [place] [address] Urinalysis complete panel (U )on 05-09-2025 Bacteria LM.HPF (Urine sed) [#/Area] Negative Normal Negative [facility] Comment on above: Order Comment: Speci men Type: URINE SPECIMENOrdering Facility: [facility] Address: [address] [place] [address] Performed By: #### 2 4356-8 ####[facility] LABCLIA [id number] [place] [address] [place] Bilirubin Ql (U) Negative Normal Negative [facility] Comment on above: Order Comment: Speci men Type: URINE SPECIMENOrdering Facility: [facility] Address: [address] [place] [address] Performed By: #### 2 4356-8 ####[facility] LABCLIA [id number] [address] [place] [address] [place] Clarity (Unsp spec) Clear Normal Clear [facility] Comment on above: Order Comment: Speci men Type: URINE SPECIMENOrdering Facility: [facility] Address: [address] [place] [address] Performed By: #### 2 4356-8 ####[facility] LABCLIA [id number] [place] [id number] [place] Color (U) Yellow Normal Yellow [facility] Comment on above: Order Comment: Speci men Type: URINE SPECIMENOrdering Facility: [facility] Address: [address] [place] [address] Performed By: #### 2 4356-8 ####[facility] LABCLIA [id number] [place] [id number] [place] Epithelial cells LM.HPF (Urine sed) [#/Area] None Seen Normal [facility] Comment on above: Order Comment: Speci men Type: URINE SPECIMENOrdering Facility: [facility] Address: [address] [place] [address] Performed By: #### 2 4356-8 ####[facility] LABCLIA [id number] [address] [place] [address] [place] Glucose Test strip (U) [Mass/Vol] Negative Normal Negative [facility] Comment on above: Order Comment: Speci men Type: URINE SPECIMENOrdering Facility: [facility] Address: [address] [place] [address] Performed By: #### 2 4356-8 ####[facility] LABCLIA [id number] [address] [place] [address] [place] Hemoglobin Ql (U) Negative Normal Negative [facility] Comment on above: Order Comment: Speci men Type: URINE SPECIMENOrdering Facility: [facility] Address: [address] [place] [address] Performed By: #### 2 4356-8 ####[facility] LABCLIA [id number] [place] [address] [place] Hyaline casts (Urine sed) [#/Area] 0 /[LPF] Normal 0 /LPF [facility] Comment on above: Order Comment: Speci men Type: URINE SPECIMENOrdering Facility: [facility] Address: [address] [place] [address] Performed By: #### 2 4356-8 ####[facility] LABCLIA [id number] [place] [address] [place] Ketones Ql (U) Negative Normal Negative [facility] Comment on above: Order Comment: Speci men Type: URINE SPECIMENOrdering Facility: [facility] Address: [address] [place] [address] Performed By: #### 2 4356-8 ####[facility] LABCLIA [id number] [place] [address] [place] Leukocyte esterase Test strip Ql (U) Negative Normal Negative [facility] Comment on above: Order Comment: Speci men Type: URINE SPECIMENOrdering Facility: [facility] Address: [address] [place] [address] Performed By: #### 2 4356-8 ####[facility] LABCLIA [id number] [place] [address] [place] Nitrite Ql (U) Negative Normal Negative [facility] Comment on above: Order Comment: Speci men Type: URINE SPECIMENOrdering Facility: [facility] Address: [address] [place] [address] Performed By: #### 2 4356-8 ####[facility] LABCLIA [id number] [place] [address] [place] pH (U) 6.0 [pH] Normal 5.0-8.0 [facility] Comment on above: Order Comment: Speci men Type: URINE SPECIMENOrdering Facility: [facility] Address: [address] [place] [address] Performed By: #### 2 4356-8 ####[facility] LABIA [id number] [place] [address] [place] Protein (U) [Mass/Vol] 1+ Abnormal Negative [facility] Comment on above: Order Comment: Speci men Type: URINE SPECIMENOrdering Facility: [facility] Address: [address] [place] [address] Performed By: #### 2 4356-8 ####[facility] [id number] [place] [address] [place] RBC LM.HPF (Urine sed) [#/Area] 0-2 /HPF Normal 0-2 /HPF [facility] Comment on above: Order Comment: Speci men Type: URINE SPECIMENOrdering Facility: [facility] Address: [address] [place] [address] Performed By: #### 2 4356-8 ####[facility] [id number] [place] [address] [place] Specific gravity (U) [Rel density] 1.017 Normal 1.005-1.030 [facility] Comment on above: Order Comment: Speci men Type: URINE SPECIMENOrdering Facility: [facility] Address: [address] [place] [address] Performed By: #### 2 4356-8 ####[facility] LABIA [id number] [place] [address] [place] Urobilinogen Ql (U) 0.2 EU/dL Normal 0.2-1.0 EU/dL [facility] Comment on above: Order Comment: Speci men Type: URINE SPECIMENOrdering Facility: [facility] Address: [address] [place] [address] Performed By: #### 2 4356-8 ####[facility] [id number] [address] [place] WBC LM.HPF (Urine sed) [#/Area] 0-5 /HPF Normal 0-5 /HPF [facility] Comment on above: Order Comment: Speci men Type: URINE SPECIMENOrdering Facility: [facility] Address: [address] [place] [address] Performed By: #### 2 4356-8 ####[facility] [id number] [address] [place] CNPLoren 04-21-20[facility] SKYLER LE ([id number]) 1960 M Date Time Provider Department 04/21/25 STEPHAN ROMERO During your visit today, we recorded the following information about you: Stephan Romero RN 04/21/2025 1:08 PM Signed CYCLE 1/DAY 1 POST TREATMENT CALL ORAL [...] Drinking fluids. Unable to provide an estimated amount, and Bladder/Urinary Changes: None Integument: Itching - Intermittent [...] w/ any questions or concerns and was scheduled NA The following lab tests are due: CBC, [...] instructed to call if unable to comply. Stephan Romero RN Allergies As of Date: 04/21/2025 Noted Allergy Reaction FLOMAX (TAMSULOSIN) 02/27/2025 14 - Other: See Comments Comments: dizziness and back pain Date Reviewed: 04/18/2025 Reviewed by: Brigida Mata RN - Fully Assessed Reason for Visit: Care Coordination [0727] Cmt: C1D1 Post Treatment Call AND Oral Anti-Cancer Agent Follow Up Prescriptions as of 04/21/2025 - sennosides (SENNA LAX PO) Take by mouth. - lenvatinib (LENVIMA) 10 mg/day (10 mg x 1) capsule Take 2 capsules by mouth once daily. - inulin (FIBER GUMMIES PO) Take 1 each by mouth two times a day. - prochlorperazine (COMPAZINE) 10 mg tablet Take 1 tablet by mouth every 6 hours as needed. - ondansetron (ZOFRAN) 8 mg tablet Take 1 tablet by mouth every 8 hours as needed for nausea/vomiting. - docusate sodium (COLACE ORAL) Take 1 capsule by mouth two times a day. - allopurinol (ZYLOPRIM) 300 mg tablet Take 300 mg by mouth two times a day. - acetaminophen (TYLENOL) 325 mg tablet Take 2 tablets by mouth every 6 hours as needed for pain. - metoprolol tartrate, short acting, (LOPRESSOR) 100 mg tablet Take 100 mg by mouth two times a day. - dutasteride (AVODART) 0.5 mg capsule Take 0.5 mg by mouth once daily. - spironolactone (ALDACTONE) 25 mg tablet Take 25 mg by mouth two times a day. - metFORMIN (GLUCOPHAGE) 1,000 mg tablet Take 500 mg by mouth two times a day. - FLUoxetine (PROZAC) 10 mg capsule Take 10 mg by mouth once daily. 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/07/2025 Depression [F32.A] 02/07/2025 Type 2 diabetes mellitus without complications *02/07/2025 Hypertension [I10] 02/07/2025 ROSA M (obstructive sleep apnea) [G47.33] 02/07/2025 Class 2 obesity due to excess calories without *02/07/2025 Iron deficiency anemia, unspecified [D50.9] 02/10/2025 Intestinal malabsorption (HCC) [K90.9] 02/10/2025 Kidney mass [N28.89] 02/28/2025 Renal cell carcinoma of left kidney (HCC) [C64.*03/18/2025 Secondary malignant 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 Encounter Status:Closed by STEPHAN ROMERO on 04/21/25 Normal [facility] CBC W Auto Differential pane l (Bld)on 04-18-2025 Basophils (Bld) [#/Vol] 0.04 10*3/uL [facility] Basophils/100 WBC (Bld) 0.4 % [facility] Differential cell count method Nom (Bld) Auto [facility] Eosinophils (Bld) [#/Vol] 0.14 10*3/uL [facility] Eosinophils/100 WBC (Bld) 1.4 % [facility] Erythrocyte distribution width (RBC) [Ratio] 20 % High 11.5 - 15.0 % [facility] Hematocrit (Bld) [Volume fraction] 33.6 % Low 39.0 - 51.0 % [facility] Hemoglobin (Bld) [Mass/Vol] 10.7 g/dL Low 13.0 - 17.0 g/dL [facility] Immature granulocytes (Bld) [#/Vol] 0.11 10*3/uL High NINF [facility] Immature granulocytes/100 WBC (Bld) 1.1 % [facility] Interpretation and review of laboratory results Abnormal [facility] Lymphocytes (Bld) [#/Vol] 1.53 10*3/uL [facility] Lymphocytes/100 WBC (Bld) 15.5 % [facility] MCH (RBC) [Entitic mass] 25.7 pg Low 26.0 - 34.0 pg [facility] MCHC (RBC) [Mass/Vol] 31.8 g/dL 30.5 - 36.0 g/dL [facility] MCV (RBC) [Entitic vol] 80.6 fL 80.0 - 100.0 fL [facility] Monocytes (Bld) [#/Vol] 0.52 10*3/uL [facility] Monocytes/100 WBC (Bld) 5.3 % [facility] Neutrophils (Bld) [#/Vol] 7.55 10*3/uL High [facility] Neutrophils/100 WBC (Bld) 76.3 % [facility] Nucleated RBC (Bld) [#/Vol] [facility] Nucleated RBC/100 WBC (Bld) [Ratio] 0 % /100 WBC [facility] Platelet mean volume (Bld) [Entitic vol] 9.2 fL 9.0 - 12.7 fL [facility] Platelets (Bld) [#/Vol] 206 10*3/uL [facility] RBC (Bld) [#/Vol] 4.17 10*6/uL Low 4.20 - 6.0 0 m/uL [facility] WBC (Bld) [#/Vol] 9.89 10*3/uL [facility] Basophils (Bld) [#/Vol] 0.04 10*3/uL Normal <0.11 [facility] Comment on above: Order Comment: Speci men Type: BLOOD SPECIMENOrdering Facility: [facility] Address: [address] [place] [address] Performed By: #### 5 7021-8 ####[facility] LABCLIA [id number] [place] [address] Basophils/100 WBC (Bld) 0.4 % Normal [facility] Comment on above: Order Comment: Speci men Type: BLOOD SPECIMENOrdering Facility: [facility] Address: [address] [place] [address] Performed By: #### 5 7021-8 ####[facility] LABCLIA [id number] [place] [address] Differential cell count method Nom (Bld) Auto Normal [facility] Comment on above: Order Comment: Speci men Type: BLOOD SPECIMENOrdering Facility: [facility] Address: [address] [place], [place] [address] Performed By: #### 5 7021-8 ####[facility] LABCLIA [id number] [place] [address] Eosinophils (Bld) [#/Vol] 0.14 10*3/uL Normal <0.46 [facility] Comment on above: Order Comment: Speci men Type: BLOOD SPECIMENOrdering Facility: [facility] Address: [address] [place] [address] Performed By: #### 5 7021-8 ####[facility] LABCLIA [id number] [place] [address] Eosinophils/100 WBC (Bld) 1.4 % Normal [facility] Comment on above: Order Comment: Speci men Type: BLOOD SPECIMENOrdering Facility: [facility] Address: [address] [place] [address] Performed By: #### 5 7021-8 ####[facility] LABCLIA [id number] [place] [address] Erythrocyte distribution width (RBC) [Ratio] 20.0 % High 11.5-15.0 [facility] Comment on above: Order Comment: Speci men Type: BLOOD SPECIMENOrdering Facility: [facility] Address: [address] [place] [address] Performed By: #### 5 7021-8 ####[facility] LABCLIA [id number] [place] [address] Hematocrit (Bld) [Volume fraction] 33.6 % Low 39.0-51.0 [facility] Comment on above: Order Comment: Speci men Type: BLOOD SPECIMENOrdering Facility: [facility] Address: [address] [place] [address] Performed By: #### 5 7021-8 ####[facility] LABCLIA [id number] [place] [address] Hemoglobin (Bld) [Mass/Vol] 10.7 g/dL Low 13.0-17.0 [facility] Comment on above: Order Comment: Speci men Type: BLOOD SPECIMENOrdering Facility: [facility] Address: [address] [place] [address] Performed By: #### 5 7021-8 ####[facility] LABCLIA [id number] [place] [address] Immature granulocytes (Bld) [#/Vol] 0.11 10*3/uL High <0.10 [facility] Comment on above: Order Comment: Speci men Type: BLOOD SPECIMENOrdering Facility: [facility] Address: [address] [place] [address] Performed By: #### 5 7021-8 ####[facility] LABCLIA [id number] [place] [address] Immature granulocytes/100 WBC (Bld) 1.1 % Normal [facility] Comment on above: Order Comment: Speci men Type: BLOOD SPECIMENOrdering Facility: [facility] Address: [address] [place] [address] Performed By: #### 5 7021-8 ####[facility] LABCLIA [id number] [place] [address] Lymphocytes (Bld) [#/Vol] 1.53 10*3/uL Normal 1.00-4.00 [facility] Comment on above: Order Comment: Speci men Type: BLOOD SPECIMENOrdering Facility: [facility] Address: [address] [place] [address] Performed By: #### 5 7021-8 ####[facility] LABCLIA [id number] [place] [address] Lymphocytes/100 WBC (Bld) 15.5 % Normal [facility] Comment on above: Order Comment: Speci men Type: BLOOD SPECIMENOrdering Facility: [facility] Address: [address] [place] [address] Performed By: #### 5 7021-8 ####[facility] LABCLIA [id number] [place] [address] MCH (RBC) [Entitic mass] 25.7 pg Low 26.0-34.0 [facility] Comment on above: Order Comment: Speci men Type: BLOOD SPECIMENOrdering Facility: [facility] Address: [address] [place] [address] Performed By: #### 5 7021-8 ####[facility] LABCLIA [id number] [place] [address] MCHC (RBC) [Mass/Vol] 31.8 g/dL Normal 30.5-36.0 [facility] Comment on above: Order Comment: Speci men Type: BLOOD SPECIMENOrdering Facility: [facility] Address: [address] [place] [address] Performed By: #### 5 7021-8 ####[facility] LABIA [id number] [place] [address] MCV (RBC) [Entitic vol] 80.6 fL Normal 80.0-100.0 [facility] Comment on above: Order Comment: Speci men Type: BLOOD SPECIMENOrdering Facility: [facility] Address: [address] [place] [address] Performed By: #### 5 7021-8 ####[facility] LABCLIA [id number] [place] [address] Monocytes (Bld) [#/Vol] 0.52 10*3/uL Normal <0.87 [facility] Comment on above: Order Comment: Speci men Type: BLOOD SPECIMENOrdering Facility: [facility] Address: [address] [place] [address] Performed By: #### 5 7021-8 ####[facility] LABCLIA [id number] [place] [address] Monocytes/100 WBC (Bld) 5.3 % Normal [facility] Comment on above: Order Comment: Speci men Type: BLOOD SPECIMENOrdering Facility: [facility] Address: [address] [place] [address] Performed By: #### 5 7021-8 ####[facility] LABCLIA [id number] [place] [address] Neutrophils (Bld) [#/Vol] 7.55 10*3/uL High 1.45-7.50 [facility] Comment on above: Order Comment: Speci men Type: BLOOD SPECIMENOrdering Facility: [facility] Address: [address] [place] [address] Performed By: #### 5 7021-8 ####[facility] LABCLIA [id number] [place] [address] Neutrophils/100 WBC (Bld) 76.3 % Normal [facility] Comment on above: Order Comment: Speci men Type: BLOOD SPECIMENOrdering Facility: [facility] Address: [address] [place] [address] Performed By: #### 5 7021-8 ####[facility] LABCLIA [id number] [place] [address] Nucleated RBC (Bld) [#/Vol] 10*3/uL Normal <0.01 [facility] Comment on above: Order Comment: Speci men Type: BLOOD SPECIMENOrdering Facility: [facility] Address: [address] [place] [address] Performed By: #### 5 7021-8 ####[facility] LABCLIA [id number] [place] [address] Nucleated RBC/100 WBC (Bld) [Ratio] 0.0 /100 WBC Normal [facility] Comment on above: Order Comment: Speci men Type: BLOOD SPECIMENOrdering Facility: [facility] Address: [address] [place] [address] Performed By: #### 5 7021-8 ####[facility] LABCLIA [id number] [place] [address] Platelet mean volume (Bld) [Entitic vol] 9.2 fL Normal 9.0-12.7 [facility] Comment on above: Order Comment: Speci men Type: BLOOD SPECIMENOrdering Facility: [facility] Address: [address] [place] [address] Performed By: #### 5 7021-8 ####[facility] LABCLIA [id number] [place] [address] Platelets (Bld) [#/Vol] 206 10*3/uL Normal 150-400 [facility] Comment on above: Order Comment: Speci men Type: BLOOD SPECIMENOrdering Facility: [facility] Address: [address] [place] [address] Performed By: #### 5 7021-8 ####[facility] LABCLIA [id number] [place] [address] RBC (Bld) [#/Vol] 4.17 10*6/uL Low 4.20-6.00 [facility] Comment on above: Order Comment: Speci men Type: BLOOD SPECIMENOrdering Facility: [facility] Address: [address] [place] [address] Performed By: #### 5 7021-8 ####[facility] LABCLIA [id number] [place] [address] WBC (Bld) [#/Vol] 9.89 10*3/uL Normal 3.70-11.00 [facility] Comment on above: Order Comment: Speci men Type: BLOOD SPECIMENOrdering Facility: [facility] Address: [address] [place] [address] Performed By: #### 5 7021-8 ####[facility] LABCLIA [id number] [place] [address] CNNURSEon 04-18-2025 CNNURSE Nurse Visit (HEMASA) SKYLER LE ([id number]) 1960 M Date Time Provider Department 04/18/25 10:00 AM LANDEN NURSE MICHAEL RODRIGUES During your visit today, we recorded the following information about you: Osmany Echevarria MA 04/18/2025 10:53 AM Signed Patient identified by 2 identifiers. EKG performed as ordered. Osmany Echevarria MA Referring Provider: ERNESTO PHOENIX [[id number]] Allergies As of Date: 04/18/2025 Noted Allergy Reaction FLOMAX (TAMSULOSIN) 02/27/2025 14 - Other: See Comments Comments: dizziness and back pain Date Reviewed: 04/18/2025 Reviewed by: Osmany Echevarria MA - Fully Assessed Primary Visit Diagnosis:High risk medication use [Z79.899] Other Visit Diagnosis:Renal cell carcinoma of left kidney (HCC) [C64.2] Prescriptions as of 04/18/2025 - sennosides (SENNA LAX PO) Take by mouth. - lenvatinib (LENVIMA) 10 mg/day (10 mg x 1) capsule Take 2 capsules by mouth once daily. - inulin (FIBER GUMMIES PO) Take 1 each by mouth two times a day. - prochlorperazine (COMPAZINE) 10 mg tablet Take 1 tablet by mouth every 6 hours as needed. - ondansetron (ZOFRAN) 8 mg tablet Take 1 tablet by mouth every 8 hours as needed for nausea/vomiting. - docusate sodium (COLACE ORAL) Take 1 capsule by mouth two times a day. - allopurinol (ZYLOPRIM) 300 mg tablet Take 300 mg by mouth two times a day. - acetaminophen (TYLENOL) 325 mg tablet Take 2 tablets by mouth every 6 hours as needed for pain. - metoprolol tartrate, short acting, (LOPRESSOR) 100 mg tablet Take 100 mg by mouth two times a day. - dutasteride (AVODART) 0.5 mg capsule Take 0.5 mg by mouth once daily. - spironolactone (ALDACTONE) 25 mg tablet Take 25 mg by mouth two times a day. - metFORMIN (GLUCOPHAGE) 1,000 mg tablet Take 500 mg by mouth two times a day. - FLUoxetine (PROZAC) 10 mg capsule Take 10 mg by mouth once daily. 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 Encounter Status:Closed by OSMANY ECHEVARRIA on 04/18/[address] [facility] CNOVSPon 04-18-2025 CNOVSP Visit (SP) Office (HEMASA) SKYLER LE ([id number]) 1960 M Date Time Provider Department 04/18/25 9:40 AM ERNESTO PHOENIX During your visit today, we recorded the following information about you: Temperature Pulse Respiration Blood pressure 97.3 degrees 52/minute 16/minute 124/58 Weight Height 120.9 kg 1.77 m Ernesto Phoenix MD 04/18/2025 10:33 AM Signed PATIENT NAME: Skyler Le CLINIC NO.: [id number] ATTENDING PHYSICIAN: Ernesto Phoenix MD DATE OF SERVICE: 04/18/[address] Bing Arvizu [address] [facility] [address] thank you for referring Skyler Le for an opinion regarding Kidney cancer. Some of the elements of this note have been copied from my previous progress note dated 04/07/25. All the information has been reviewed carefully. CHIEF COMPLAINT: Kidney cancer HPI: Skyler Le is a 65 year old year old [...] unusual findings. Doing well - Works in [employer]. - No smoking - No alcohol. - No family h/o cancer. - No major complaints. 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 METASTATIC DISEASE: No metabolically active distant metastases - MRI brain - Normal. - Doing well - No major complaints. 04/18/25: - Seen by on 04/09/25 - Doing well - No major complaints. - Seeing nephrology on Monday Current Outpatient Medications Medication Sig sennosides (SENNA LAX PO) Take by mouth. lenvatinib (LENVIMA) 10 mg/day (10 mg x 1) capsule Take 2 capsules by mouth once daily. inulin (FIBER GUMMIES PO) Take 1 each by mouth two times a day. prochlorperazine (COMPAZINE) 10 mg tablet Take 1 tablet by mouth every 6 hours as needed. ondansetron (ZOFRAN) 8 mg tablet Take 1 tablet by mouth every 8 hours as needed for nausea/vomiting. docusate sodium (COLACE ORAL) Take 1 capsule by mouth two times a day. allopurinol (ZYLOPRIM) 300 mg tablet Take 300 mg by mouth two times a day. acetaminophen (TYLENOL) 325 mg tablet Take 2 [...] Laterality Date COLONOSCOPY SCREENING KIDNEY BIOPSY 01/24/2025 History reviewed. No pertinent family history. Social History Tobacco Use Smoking status: Never [...] numbness or tingling of hands/feet. No weakness. All negative except mentioned in HPI. PHYSICAL EXAMINATION: There were no vitals taken for this visit. There were no vitals taken for this visit. Last 3 Encounter Wt Readings: Date: Wt: 02/07/2025 124.7 kg (275 lb) 01/03/2025 124.7 kg (275 lb) General appearance:ECOG PERFORMANCE STATUS: 0- Fully active, able to carry on all pre-disease performance w/o restriction. Patient in NAD. Skin: Skin color, t (more content not included)... Normal [facility] 04-18-2025 CNPN Telephone (HEMASA) SKYLER LE ([id number]) 1960 M Date Time Provider Department 04/18/25 STEPHAN ROMERO During your visit today, we recorded the following information about you: Stephan Romero RN 04/18/2025 10:50 AM Signed Patient started/will start taking Lenvatinib on 04/18/25. Stephan Romero RN Allergies As of Date: 04/18/2025 Noted Allergy Reaction FLOMAX (TAMSULOSIN) 02/27/2025 14 - Other: See Comments Comments: dizziness and back pain Date Reviewed: 04/18/2025 Reviewed by: Osmany Echevarria MA - Fully Assessed Reason for Visit: Care Coordination [4617] Cmt: Lenvatinib Start Date Prescriptions as of 04/18/2025 - sennosides (SENNA LAX PO) Take by mouth. - lenvatinib (LENVIMA) 10 mg/day (10 mg x 1) capsule Take 2 capsules by mouth once daily. - inulin (FIBER GUMMIES PO) Take 1 each by mouth two times a day. - prochlorperazine (COMPAZINE) 10 mg tablet Take 1 tablet by mouth every 6 hours as needed. - ondansetron (ZOFRAN) 8 mg tablet Take 1 tablet by mouth every 8 hours as needed for nausea/vomiting. - docusate sodium (COLACE ORAL) Take 1 capsule by mouth two times a day. - allopurinol (ZYLOPRIM) 300 mg tablet Take 300 mg by mouth two times a day. - acetaminophen (TYLENOL) 325 mg tablet Take 2 tablets by mouth every 6 hours as needed for pain. - metoprolol tartrate, short acting, (LOPRESSOR) 100 mg tablet Take 100 mg by mouth two times a day. - dutasteride (AVODART) 0.5 mg capsule Take 0.5 mg by mouth once daily. - spironolactone (ALDACTONE) 25 mg tablet Take 25 mg by mouth two times a day. - metFORMIN (GLUCOPHAGE) 1,000 mg tablet Take 500 mg by mouth two times a day. - FLUoxetine (PROZAC) 10 mg capsule Take 10 mg by mouth once daily. 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 Encounter Status:Closed by STEPHAN ROMERO on 04/18/25 Normal [facility] 2000 panelOrdered By: Noemi Manzano on 04-18-2025 Albumin [Mass/Vol] 4.2 g/dL 3.9 - 4.9 g/dL [facility] ALP [Catalytic activity/Vol] 81 U/L 38 - 113 U/L [facility] ALT [Catalytic activity/Vol] 10 U/L 10 - 54 U/L [facility] Anion gap [Moles/Vol] 10 mmol/L 8 - 15 mmol/L [facility] AST [Catalytic activity/Vol] 12 U/L Low 14 - 40 U/L [facility] Bilirubin [Mass/Vol] 0.2 mg/dL 0.2 - 1 .3 mg/dL [facility] Calcium [Mass/Vol] 9.2 mg/dL 8.5 - 10. 2 mg/dL [facility] Chloride [Moles/Vol] 103 mmol/L 98 - 10 7 mmol/L [facility] CO2 [Moles/Vol] 22 mmol/L 22 - 30 mmol/L [facility] Creatinine [Mass/Vol] 2.13 mg/dL High 0.73 - 1.22 mg/dL [facility] GFR/1.73 sq M.predicted among non-blacks MDRD (S/P/Bld) [Vol rate/Area] 34 mL/min/{1.73_m2} Low - PINF [facility] Comment on above: Estimated Glomerular Filtration Rate [...] 115 mg/dL High 74 - 99 mg/dL [facility] Comment on above: The [place] Diabete s Association (ADA) provides guidance for [...] Standards of Medical Care in Diabetes 2016, [place] Diabetes Association. Diabetes Care. 2016.39(Suppl 1). Interpretation and review of laboratory results Abnormal [facility] Potassium [Moles/Vol] 4.7 mmol/L 3.7 - 5.1 mmol/L [facility] Protein [Mass/Vol] 7.6 g/dL 6.3 - 8.0 g/dL [facility] Sodium [Moles/Vol] 135 mmol/L Low 136 - 144 mmol/L [facility] Urea nitrogen [Mass/Vol] 33 mg/dL High 9 - 24 mg/dL [facility] Comprehensive metabolic 2000 panelon 04-18-2025 Albumin [Mass/Vol] 4.2 g/dL Normal 3.9-4.9 [facility] Comment on above: Order Comment: Speci men Type: BLOOD SPECIMENOrdering Facility: [facility] Address: [address] [place] [address] Performed By: #### 2 4323-8 ####[facility] LABCLIA [id number] [place] [address] ALP [Catalytic activity/Vol] 81 U/L Normal 38-113 [facility] Comment on above: Order Comment: Speci men Type: BLOOD SPECIMENOrdering Facility: [facility] Address: [address] [place] [address] Performed By: #### 2 4323-8 ####[facility] LABCLIA [id number] [place] [address] ALT [Catalytic activity/Vol] 10 U/L Normal 10-54 [facility] Comment on above: Order Comment: Speci men Type: BLOOD SPECIMENOrdering Facility: [facility] Address: [address] [place] [address] Performed By: #### 2 4323-8 ####[facility] LABCLIA [id number] [place] [address] Anion gap [Moles/Vol] 10 mmol/L Normal 8-15 [facility] Comment on above: Order Comment: Speci men Type: BLOOD SPECIMENOrdering Facility: [facility] Address: [address] [place] [address] Performed By: #### 2 4323-8 ####[facility] LABCLIA [id number] [place] [address] AST [Catalytic activity/Vol] 12 U/L Low 14-40 [facility] Comment on above: Order Comment: Speci men Type: BLOOD SPECIMENOrdering Facility: [facility] Address: [address] [place] [address] Performed By: #### 2 4323-8 ####[facility] LABCLIA [id number] [place] [address] Bilirubin [Mass/Vol] 0.2 mg/dL Normal 0.2-1.3 [facility] Comment on above: Order Comment: Speci men Type: BLOOD SPECIMENOrdering Facility: [facility] Address: [address] [place] [address] Performed By: #### 2 4323-8 ####[facility] LABCLIA [id number] [place] [address] Calcium [Mass/Vol] 9.2 mg/dL Normal 8.5-10.2 [facility] Comment on above: Order Comment: Speci men Type: BLOOD SPECIMENOrdering Facility: [facility] Address: [address] [place] [address] Performed By: #### 2 4323-8 ####[facility] LABCLIA [id number] [place] [address] Chloride [Moles/Vol] 103 mmol/L Normal 98-107 [facility] Comment on above: Order Comment: Speci men Type: BLOOD SPECIMENOrdering Facility: [facility] Address: [address] [place] [address] Performed By: #### 2 4323-8 ####[facility] LABCLIA [id number] [place] [address] CO2 [Moles/Vol] 22 mmol/L Normal 22-30 [facility] Comment on above: Order Comment: Speci men Type: BLOOD SPECIMENOrdering Facility: [facility] Address: [address] [place] [address] Performed By: #### 2 4323-8 ####[facility] LABCLIA [id number] [place] [address] Creatinine [Mass/Vol] 2.13 mg/dL High 0.73-1.22 [facility] Comment on above: Order Comment: Speci men Type: BLOOD SPECIMENOrdering Facility: [facility] Address: [address] [place] [address] Performed By: #### 2 4323-8 ####[facility] LABCLIA [id number] [place] [address] eGFRcr SerPlBld CKD-EPI 2020 34 mL/min/1.73m??? Low >=60 [facility] Comment on above: Order Comment: Speci men Type: BLOOD SPECIMENOrdering Facility: [facility] Address: [address] [place] [address] Result Comment: Samantha mated Glomerular Filtration Rate [...] reflect actual GFR. Performed By: #### 2 4323-8 ####[facility] LABCLIA [id number] [place] [address] Glucose [Mass/Vol] 115 mg/dL High 74-99 [facility] Comment on above: Order Comment: Speci men Type: BLOOD SPECIMENOrdering Facility: [facility] Address: [address] [place], [place] [id number] Result Comment: The [place] Diabetes Association (ADA) provides guidance for cutoff [...] Standards of Medical Care in Diabetes 2016, [place] Diabetes Association. Diabetes Care. 2016.39(Suppl 1). Performed By: #### 2 4323-8 ####[facility] LABCLIA [id number] [place] [address] Potassium [Moles/Vol] 4.7 mmol/L Normal 3.7-5.1 [facility] Comment on above: Order Comment: Speci men Type: BLOOD SPECIMENOrdering Facility: [facility] Address: [address] [place] [address] Performed By: #### 2 4323-8 ####[facility] LABCLIA [id number] [place] [address] Protein [Mass/Vol] 7.6 g/dL Normal 6.3-8.0 [facility] Comment on above: Order Comment: Speci men Type: BLOOD SPECIMENOrdering Facility: [facility] Address: [address] [place] [address] Performed By: #### 2 4323-8 ####[facility] LABCLIA [id number] [place] [address] Sodium [Moles/Vol] 135 mmol/L Low 136-144 [facility] Comment on above: Order Comment: Speci men Type: BLOOD SPECIMENOrdering Facility: [facility] Address: [address] [place] [address] Performed By: #### 2 4323-8 ####[facility] LABCLIA [id number] [place] [address] Urea nitrogen [Mass/Vol] 33 mg/dL High 9-24 [facility] Comment on above: Order Comment: Speci men Type: BLOOD SPECIMENOrdering Facility: [facility] Address: [address] [place] [address] Performed By: #### 2 4323-8 ####[facility] LABCLIA [id number] [place] [address] THYROID STIMULATING HORMONEo n 04-18-2025 TSH Qn 2.41 m[IU]/L [facility] TSH Qnon 04-18-2025 Interpretation and review of laboratory results Normal [facility] TSH SerPl-aCncon 04-18-2025 TSH Qn 2.410 m[IU]/L Normal 0.270-4.200 [facility] Comment on above: Order Comment: Speci men Type: BLOOD SPECIMENOrdering Facility: [facility] Address: [address] [place] [address] Performed By: #### 3 016-3 ####[facility] LABCLIA [id number] [place] [id number] [facility] CNPNon 04-15-2025 CNPN Telephone (HEMASA) SKYLER LE ([id number]) 1960 M Date Time Provider Department 04/15/25 ERNESTO PHOENIX HEMASA During your visit today, we recorded the following information about you: Isabella Javier MA 04/15/2025 3:[address] labs for treatment on 04/18 if needed. Isabella Javier MA Allergies As of Date: 04/15/2025 Noted Allergy Reaction FLOMAX (TAMSULOSIN) 02/27/2025 14 - Other: See Comments Comments: dizziness and back pain Date Reviewed: 04/15/2025 Reviewed by: Helen Felipe APRN.[employer] - Fully Assessed Reason for Visit: Lab Orders [1688] Primary Visit Diagnosis:Renal cell carcinoma of left kidney (HCC) [C64.2] Other Visit Diagnoses:High risk medication use [Z79.899] Thyroid nodule [E04.1] Order(s):COMPREHENSIVE METABOLIC PANEL [SQCMP] Order #: [id number] FUTURE COMPLETE BLOOD COUNT AND DIFFERENTIAL [SQCBCDIF] Order #: [id number] FUTURE THYROID STIMULATING HORMONE [SQTSH] Order #: [id number] FUTURE Prescriptions as of 04/29/2025 - sennosides (SENNA LAX PO) Take by mouth. - lenvatinib (LENVIMA) 10 mg/day (10 mg x 1) capsule Take 2 capsules by mouth once daily. - inulin (FIBER GUMMIES PO) Take 1 each by mouth two times a day. - prochlorperazine (COMPAZINE) 10 mg tablet Take 1 tablet by mouth every 6 hours as needed. - ondansetron (ZOFRAN) 8 mg tablet Take 1 tablet by mouth every 8 hours as needed for nausea/vomiting. - docusate sodium (COLACE ORAL) Take 1 capsule by mouth two times a day. - allopurinol (ZYLOPRIM) 300 mg tablet Take 300 mg by mouth two times a day. - acetaminophen (TYLENOL) 325 mg tablet Take 2 tablets by mouth every 6 hours as needed for pain. - metoprolol tartrate, short acting, (LOPRESSOR) 100 mg tablet Take 100 mg by mouth two times a day. - dutasteride (AVODART) 0.5 mg capsule Take 0.5 mg by mouth once daily. - spironolactone (ALDACTONE) 25 mg tablet Take 25 mg by mouth two times a day. - metFORMIN (GLUCOPHAGE) 1,000 mg tablet Take 500 mg by mouth two times a day. - FLUoxetine (PROZAC) 10 mg capsule Take 10 mg by mouth once daily. 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 Was the PA documented within the ePA workqueue?: No Rx Plan: Other: [facility] Drug: Lenvima Cover My Meds Amaya: N/A Determination: Denied PA Denied because: Plan EXCLUSION Prior Authorization/Case #: [id number] Prior Authorization Expiration: Time to PA Submission in CMM: 15 min Time to PA Determination in CMM: 1 day Additional Information: Fax PA form to [facility] 04/09/2025 For questions relating to this submission, please contact [facility] at [phone] Tamika Madison [facility] 04/11/2025 1:40 PM Signed Sameer Young and Alban, The Lenvima ordered for Skyler is not covered by his insurance at all. It is a plan exclusion. There is no option for an appeal. The only option for Skyler would be to apply for free drug through the special education bus driver. This process could take some time. The authorization for Ketyruda is still pending. His insurance plan will cover Cabometyx still, if you wish to go back to that plan. We would still need to change the immunotherapy back to Opdivo and obtain that authorization though. Please advise us on how you would like to move forward. Thank you Tayo Madison PharmD, Tamika Mckeon, [facility] 04/11/2025 2:02 PM Signed Tamika Madison [facility] 04/11/2025 2:02 PM Signed We do have some Lenvima in our drug repository we could use to get him started while we apply for free drug. Tayo Madison PharmD, Ernesto Kaufman MD 04/11/2025 3:19 PM Signed OK to use Lenvima from our drug repository then while waiting for free drug. Thank you Tamika Madison [facility] 04/11/2025 3:28 PM Signed Myrtle please work Skyler up for Repository fill of Lenvima. Thank you Tayo Madison PharmD, Myrtle Galvin LSW 04/11/2025 3:43 PM Signed Kt, I am working on the drug repository form now. Thanks, Stephan Ellington RN 04/11/2025 4:31 PM Signed Clerical: Pt will need education when here on 04/18. Please add him to my schedule that day since Valerie is out. Thanks! JUANA Orosco Kristen 04/14/2025 7:20 AM Signed Scheduled patient for Chemo Education with Karena 04/18 as per message below. Deana Gold Pss Allergies As of Date: 04/10/2025 Noted Allergy Reaction FLOMAX (TAMSULOSIN) 02/27/2025 14 - Other: See Comments Comments: dizziness and back pain Date Reviewed: 04/09/2025 Reviewed by: Nikki Bailey RN - Fully Assessed Reason for Visit: Medication Authorization [1699] Cmt: Lenvima Prescriptions as of 04/14/2025 - lenvatinib (LENVIMA) 10 mg/day (10 mg x 1) capsule Take 2 capsules by mouth once daily. - bisacodyl EC (DULCOLAX, BISACODYL,) 5 mg EC tablet Take 5 mg by mouth once daily as needed for constipation. - inulin (FIBER GUMMIES PO) Take 1 each by mouth two times a day. - prochlorperazine (COMPAZINE) 10 mg tablet Take 1 tablet by mouth every 6 hours as needed. - ondansetron (ZOFRAN) 8 mg tablet Take 1 tablet by mouth every 8 hours as needed for nausea/vomiting. - docusate sodium (COLACE ORAL) Take 1 capsule by mouth two times a day. - allopurinol (ZYLOPRIM) 300 mg tablet Take 300 mg by mouth two times a day. - acetaminophen (TYLENOL) 325 mg tablet Take 2 tablets by mouth every 6 hours as needed for pain. - metoprolol tartrate, short acting, (LOPRESSOR) 100 mg tablet Take 100 mg by mouth two times a day. - dutasteride (AVODART) 0.5 mg capsule Take 0.5 mg by mouth once daily. - spironolactone (ALDACTONE) 25 mg tablet Take 25 mg by mouth two times a day. - metFORMIN (GLUCOPHAGE) 1,000 mg tablet Take 500 mg by mouth two times a day. - FLUoxetine (PROZAC) 10 mg capsule Take 10 mg by mouth once daily. 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 Treatment plan changed for a third time yesterday. Pt will now be getting keytruda and lenvatinib. Keytruda single agent was approved initially before changed to opdivo. So will that approval still stand now with the lenvatinib? Pharmacy is working on lenvatinib authorization now. I need some guidance from pharmacy as to what we should do here. Not sure if treatment is still an option for Monday or if we just need to push this back a week? Please advise JUANA Son Adarsh, MD 04/10/2025 12:58 PM Signed We can do the keytruda infusion on Monday. We can start Lenvatinib once we get it. Thank you Valerie Mosqueda RN 04/10/2025 3:03 PM Signed Pharmacy: has Keytruda been approved? Please advise JUANA Son Kathryn [facility] 04/10/2025 3:20 PM Signed Keytruda has not been approved, we were advised to push treatment out until approved. The initial approval was withdrawn when the plan was changed to Opdivo, the PA team has to resubmit for Keytruda approval again. Tayo Madison, Giorgio, OP Valerie Msoqueda RN 04/10/2025 3:32 PM Signed PSS: can you push pt's appointments on Monday out until later in the week please. Regimen was entered by Dr Young on 04/09. Thanks JUANA Son Brittany 04/10/2025 3:40 PM Signed Call placed to patient, no answer. Left detailed message on VM to call back to reschedule. Tentatively rescheduled patient for 04/18 starting @ 8:15 am if he can make this appointment. Pearl Mrogan 04/10/2025 3:54 PM Signed Patient called back and confirmed RV and treatment for Wednesday 04/18. Tamika Cooney, [facility] 04/11/2025 9:50 AM Signed Follow up call placed to [facility]. Web Operations Administrator confirmed that they received the fax 04/10/25 for Lenvima prior authorization. Their TAT is 4-10 business days for prior authorizations. Tayo Madison, AnuradhaD, BCOP Allergies As of Date: 04/10/2025 Noted Allergy Reaction FLOMAX (TAMSULOSIN) 02/27/2025 14 - Other: See Comments Comments: dizziness and back pain Date Reviewed: 04/09/2025 Reviewed by: Nikki Bailey RN - Fully Assessed Reason for Visit: Care Coordination [9120] Cmt: Treatment plan Prescriptions as of 04/11/2025 - lenvatinib (LENVIMA) 20 mg/day (10 mg x 2) capsules Take 2 capsules by mouth once daily. - bisacodyl EC (DULCOLAX, BISACODYL,) 5 mg EC tablet Take 5 mg by mouth once daily as needed for constipation. - inulin (FIBER GUMMIES PO) Take 1 each by mouth two times a day. - prochlorperazine (COMPAZINE) 10 mg tablet Take 1 tablet by mouth every 6 hours as needed. - ondansetron (ZOFRAN) 8 mg tablet Take 1 tablet by mouth every 8 hours as needed for nausea/vomiting. - docusate sodium (COLACE ORAL) Take 1 capsule by mouth two times a day. - allopurinol (ZYLOPRIM) 300 mg tablet Take 300 mg by mouth two times a day. - acetaminophen (TYLENOL) 325 mg tablet Take 2 tablets by mouth every 6 hours as needed for pain. - metoprolol tartrate, short acting, (LOPRESSOR) 100 mg tablet Take 100 mg by mouth two times a day. - dutasteride (AVODART) 0.5 mg capsule Take 0.5 mg by mouth once daily. - spironolactone (ALDACTONE) 25 mg tablet Take 25 mg by mouth two times a day. - metFORMIN (GLUCOPHAGE) 1,000 mg tablet Take 500 mg by mouth two times a day. - FLUoxetine (PROZAC) 10 mg capsule Take 10 mg by mouth once daily. Problem List As Of Date 04/10/2025 Noted Resolved BPH with obstruction/lower urinary tract sympto*02/07/2025 Depression [F32.A] 02/07/2025 Type 2 diabetes mellitus without complications *02/07/2025 Hypertension [I10] 02/07/2025 ROSA M (obstructive sleep apnea) [G47.33] 02/07/2025 Class 2 obesity due to excess calories without *02/07/2025 Iron deficiency anemia, unspecified [D50.9] 02/10/2025 Intestinal malabsorption (HCC) [K90.9] 02/10/2025 Kidney mass [N28.89] 02/28/2025 Renal cell carcinoma of left kidney (HCC) [C64.*03/18/2025 Secondary malignant 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 Encounter Status:Closed by KAMRAN LEONG on 04[facility]11/[facility] Visit (SP) Office (HEMCA3) SKYLER LE ([id number]) 1960 M Date Time Provider Department 04/09/25 1:00 PM JEANNINE YOUNG HEMCA3 During your visit today, we recorded the following information about you: Temperature Pulse Respiration Blood pressure 97.2 degrees 44/minute 20/minute 123/53 Weight Height 122.6 kg 1.78 m Nikki Bailey RN 04/09/2025 2:13 PM Signed Additional intake questions: Has the patient had fever, nausea, vomiting, diarrhea, constipation, fatigue for > 1 week? No Does the patient have a decreased appetite? No Does patient want to see a Field Enumerator? No (yes to any of above refer patient to schedulers for dietitian appointment) ) Does patient have any new or increased numbness or tingling of extremities? No Is patient interested in fertility information? No Does patient need any prescription refills? No Does patient have an advanced directive in place? No, Patient referred to [facility] Electronically Signed By: JUANA Pablo Timothy D, MD 04/09/2025 2:13 PM Signed [facility], [facility] Department of Hematology AND Medical Oncology PATIENT NAME: Skyler Le CLINIC NO: [id number] ATTENDING PHYSICIAN: Jeannine Young MD DATE OF SERVICE: 04/09/2025 Skyler Le is a 65 year old male with metastatic unclassified renal cell carcinoma. He is referred for second opinion. Consultation requested by Dr. Phoenix for an opinion regarding treatment. My final recommendations will be communicated back to the requesting physician by way of shared Medical record or letter to requesting physician via US mail. HPI Mr. Corona was found to have a left renal mass and biopsy showed renal cell carcinoma with tumor necrosis and sarcomatoid differentiation. He then underwent left robotic radical nephrectomy on February 27, 2025. Pathology showed an unclassified renal cell carcinoma. He had lymph node metastases documented in surgery and a postoperative PET CT scan showed retroperitoneal lymph node metastasis. Initially the plan was to give him adjuvant pembrolizumab but when the scan showed evidence of metastatic disease, the plan shifted to nivolumab plus Cabometyx. He comes in now to see me. PAST MEDICAL HISTORY Diagnosis Date Depression Diabetes (HCC) Hypertension ROSA M on CPAP PAST SURGICAL HISTORY Procedure Laterality Date COLONOSCOPY SCREENING KIDNEY BIOPSY 01/24/2025 Left robotic radical nephrectomy Current Outpatient Medications on File Prior to Visit Medication Sig bisacodyl EC (DULCOLAX, BISACODYL,) 5 mg EC tablet Take 5 mg by mouth once daily as needed for constipation. inulin (FIBER GUMMIES PO) Take 1 each by mouth two times a day. prochlorperazine (COMPAZINE) 10 mg tablet Take 1 tablet by mouth every 6 hours as needed. ondansetron (ZOFRAN) 8 mg tablet Take 1 tablet by mouth every 8 hours as needed for nausea/vomiting. docusate sodium (COLACE ORAL) Take 1 capsule by mouth two times a day. allopurinol (ZYLOPRIM) 300 mg tablet Take 300 mg by mouth two times a day. acetaminophen (TYLENOL) 325 mg tablet Take 2 [...] mouth once daily. No current facility-administered medications on file prior to visit. BP 123/53 Pulse (!) 44 Temp 36.2 ?C (97.2 ?F) Resp 20 Ht 178 cm (5' 10.08 ) Wt 122.6 kg (270 lb 4.5 oz) SpO2 98% BMI 38.69 kg/m? GEN: Overweight man in no distress accompanied by his Results: Kidney biopsy on January 24, 2025 was read as renal cell carcinoma with tumor cell necrosis and sarcomatoid differentiation, grade 4. PAX8: Positive CAM5.2: Positive CA 9: Positive RAHEEM: Positive P63: Negative GATA3: Negative Pathology from his radical nephrectomy showed renal cell carcinoma, unclassified, with sarcomatoid differentiation, grade 4. It measured 8 cm. The tumor invaded perinephric fat, renal sinus and pelvis. Margins were negative. Metastatic renal cell carcinoma with sarcomatoid differentiation was seen in 1 hilar lymph node and 1 of 2 periaortic lymph nodes. Immunohistochemical stains were performed (blocks B6 and B20) with slightly varying results: PAX8 is strongly and diffusely positive in both blocks, while CAIX is patchy positive (box-shaped); GATA3 and p63 are both negative in B20, while GATA3 is weak with negative p63 in B6. Although challenging to be definitive in the tumor lineage (renal cell carcinoma vs. urothelial carcinoma), the overall histologic an (more content not included)... Normal [facility] CBC W Auto Differential pane l (Bld)on 04-07-2025 Basophils (Bld) [#/Vol] 0.05 10*3/uL [facility] Basophils/100 WBC (Bld) 0.6 % [facility] Differential cell count method Nom (Bld) Auto [facility] Eosinophils (Bld) [#/Vol] 0.13 10*3/uL [facility] Eosinophils/100 WBC (Bld) 1.5 % [facility] Erythrocyte distribution width (RBC) [Ratio] 19.2 % High 11.5 - 15.0 % [facility] Hematocrit (Bld) [Volume fraction] 33.4 % Low 39.0 - 51.0 % [facility] Hemoglobin (Bld) [Mass/Vol] 10.6 g/dL Low 13.0 - 17.0 g/dL [facility] Immature granulocytes (Bld) [#/Vol] 0.11 10*3/uL High [facility] Immature granulocytes/100 WBC (Bld) 1.3 % [facility] Interpretation and review of laboratory results Abnormal [facility] Lymphocytes (Bld) [#/Vol] 1.25 10*3/uL [facility] Lymphocytes/100 WBC (Bld) 14.7 % [facility] MCH (RBC) [Entitic mass] 25.3 pg Low 26.0 - 34.0 pg [facility] MCHC (RBC) [Mass/Vol] 31.7 g/dL 30.5 - 36.0 g/dL [facility] MCV (RBC) [Entitic vol] 79.7 fL Low 80.0 - 100.0 fL [facility] Monocytes (Bld) [#/Vol] 0.76 10*3/uL [facility] Monocytes/100 WBC (Bld) 8.9 % [facility] Neutrophils (Bld) [#/Vol] 6.23 10*3/uL [facility] Neutrophils/100 WBC (Bld) 73 % [facility] Nucleated RBC (Bld) [#/Vol] [facility] Nucleated RBC/100 WBC (Bld) [Ratio] 0 % /100 WBC [facility] Platelet mean volume (Bld) [Entitic vol] 8.8 fL Low 9.0 - 12.7 fL [facility] Platelets (Bld) [#/Vol] 197 10*3/uL [facility] RBC (Bld) [#/Vol] 4.19 10*6/uL Low 4.20 - 6.0 0 m/uL [facility] WBC (Bld) [#/Vol] 8.53 10*3/uL [facility] Basophils (Bld) [#/Vol] 0.05 10*3/uL Normal <0.11 [facility] Comment on above: Order Comment: Speci men Type: BLOOD SPECIMENOrdering Facility: [facility] Address: [address] [place] [address] Performed By: #### 5 7021-8 ####[facility] LABCLIA [id number] [place] [address] Basophils/100 WBC (Bld) 0.6 % Normal [facility] Comment on above: Order Comment: Speci men Type: BLOOD SPECIMENOrdering Facility: [facility] Address: [address] [place] [address] Performed By: #### 5 7021-8 ####[facility] LABCLIA [id number] [place] [address] Differential cell count method Nom (Bld) Auto Normal [facility] Comment on above: Order Comment: Speci men Type: BLOOD SPECIMENOrdering Facility: [facility] Address: [address] [place] [address] Performed By: #### 5 7021-8 ####[facility] LABCLIA [id number] [place] [address] Eosinophils (Bld) [#/Vol] 0.13 10*3/uL Normal <0.46 [facility] Comment on above: Order Comment: Speci men Type: BLOOD SPECIMENOrdering Facility: [facility] Address: [address] [place] [address] Performed By: #### 5 7021-8 ####[facility] LABCLIA [id number] [place] [address] Eosinophils/100 WBC (Bld) 1.5 % Normal [facility] Comment on above: Order Comment: Speci men Type: BLOOD SPECIMENOrdering Facility: [facility] Address: [address] [place] [address] Performed By: #### 5 7021-8 ####[facility] LABCLIA [id number] [place] [address] Erythrocyte distribution width (RBC) [Ratio] 19.2 % High 11.5-15.0 [facility] Comment on above: Order Comment: Speci men Type: BLOOD SPECIMENOrdering Facility: [facility] Address: [address] [place] [address] Performed By: #### 5 7021-8 ####[facility] LABCLIA [id number] [place] [address] Hematocrit (Bld) [Volume fraction] 33.4 % Low 39.0-51.0 [facility] Comment on above: Order Comment: Speci men Type: BLOOD SPECIMENOrdering Facility: [facility] Address: [address] [place] [address] Performed By: #### 5 7021-8 ####[facility] LABCLIA [id number] [place] [address] Hemoglobin (Bld) [Mass/Vol] 10.6 g/dL Low 13.0-17.0 [facility] Comment on above: Order Comment: Speci men Type: BLOOD SPECIMENOrdering Facility: [facility] Address: [address] [place] [address] Performed By: #### 5 7021-8 ####[facility] LABCLIA [id number] [place] [address] Immature granulocytes (Bld) [#/Vol] 0.11 10*3/uL High <0.10 [facility] Comment on above: Order Comment: Speci men Type: BLOOD SPECIMENOrdering Facility: [facility] Address: [address] [place] [address] Performed By: #### 5 7021-8 ####[facility] LABCLIA [id number] [place] [address] Immature granulocytes/100 WBC (Bld) 1.3 % Normal [facility] Comment on above: Order Comment: Speci men Type: BLOOD SPECIMENOrdering Facility: [facility] Address: [address] [place] [address] Performed By: #### 5 7021-8 ####[facility] LABCLIA [id number] [place] [address] Lymphocytes (Bld) [#/Vol] 1.25 10*3/uL Normal 1.00-4.00 [facility] Comment on above: Order Comment: Speci men Type: BLOOD SPECIMENOrdering Facility: [facility] Address: [address] [place] [address] Performed By: #### 5 7021-8 ####[facility] LABCLIA [id number] [place] [address] Lymphocytes/100 WBC (Bld) 14.7 % Normal [facility] Comment on above: Order Comment: Speci men Type: BLOOD SPECIMENOrdering Facility: [facility] Address: [address] [place] [address] Performed By: #### 5 7021-8 ####[facility] LABCLIA [id number] [place] [address] MCH (RBC) [Entitic mass] 25.3 pg Low 26.0-34.0 [facility] Comment on above: Order Comment: Speci men Type: BLOOD SPECIMENOrdering Facility: [facility] Address: [address] [place] [address] Performed By: #### 5 7021-8 ####[facility] LABCLIA [id number] [place] [address] MCHC (RBC) [Mass/Vol] 31.7 g/dL Normal 30.5-36.0 [facility] Comment on above: Order Comment: Speci men Type: BLOOD SPECIMENOrdering Facility: [facility] Address: [address] [place] [address] Performed By: #### 5 7021-8 ####[facility] LABCLIA [id number] [place] [address] MCV (RBC) [Entitic vol] 79.7 fL Low 80.0-100.0 [facility] Comment on above: Order Comment: Speci men Type: BLOOD SPECIMENOrdering Facility: [facility] Address: [address] [place] [address] Performed By: #### 5 7021-8 ####[facility] LABCLIA [id number] [place] [address] Monocytes (Bld) [#/Vol] 0.76 10*3/uL Normal <0.87 [facility] Comment on above: Order Comment: Speci men Type: BLOOD SPECIMENOrdering Facility: [facility] Address: [address] [place] [address] Performed By: #### 5 7021-8 ####[facility] LABCLIA [id number] [place] [address] Monocytes/100 WBC (Bld) 8.9 % Normal [facility] Comment on above: Order Comment: Speci men Type: BLOOD SPECIMENOrdering Facility: [facility] Address: [address] [place] [address] Performed By: #### 5 7021-8 ####[facility] LABCLIA [id number] [place] [address] Neutrophils (Bld) [#/Vol] 6.23 10*3/uL Normal 1.45-7.50 [facility] Comment on above: Order Comment: Speci men Type: BLOOD SPECIMENOrdering Facility: [facility] Address: [address] [place] [address] Performed By: #### 5 7021-8 ####[facility] LABCLIA [id number] [place] [address] Neutrophils/100 WBC (Bld) 73.0 % Normal [facility] Comment on above: Order Comment: Speci men Type: BLOOD SPECIMENOrdering Facility: [facility] Address: [address] [place] [address] Performed By: #### 5 7021-8 ####[facility] LABCLIA [id number] [place] [address] Nucleated RBC (Bld) [#/Vol] 10*3/uL Normal <0.01 [facility] Comment on above: Order Comment: Speci men Type: BLOOD SPECIMENOrdering Facility: [facility] Address: [address] [place] [address] Performed By: #### 5 7021-8 ####[facility] LABCLIA [id number] [place] [address] Nucleated RBC/100 WBC (Bld) [Ratio] 0.0 /100 WBC Normal [facility] Comment on above: Order Comment: Speci men Type: BLOOD SPECIMENOrdering Facility: [facility] Address: [address] [place] [address] Performed By: #### 5 7021-8 ####[facility] LABCLIA [id number] [place] [address] Platelet mean volume (Bld) [Entitic vol] 8.8 fL Low 9.0-12.7 [facility] Comment on above: Order Comment: Speci men Type: BLOOD SPECIMENOrdering Facility: [facility] Address: [address] [place] [address] Performed By: #### 5 7021-8 ####[facility] LABCLIA [id number] [place] [address] Platelets (Bld) [#/Vol] 197 10*3/uL Normal 150-400 [facility] Comment on above: Order Comment: Speci men Type: BLOOD SPECIMENOrdering Facility: [facility] Address: [address] [place] [address] Performed By: #### 5 7021-8 ####[facility] LABCLIA [id number] [place] [address] RBC (Bld) [#/Vol] 4.19 10*6/uL Low 4.20-6.00 [facility] Comment on above: Order Comment: Speci men Type: BLOOD SPECIMENOrdering Facility: [facility] Address: [address] [place], [place] [address] Performed By: #### 5 7021-8 ####[facility] LABIA [id number] [place] [address] WBC (Bld) [#/Vol] 8.53 10*3/uL Normal 3.70-11.00 [facility] Comment on above: Order Comment: Speci men Type: BLOOD SPECIMENOrdering Facility: [facility] Address: [address] [place], [place] [id number] Performed By: #### 5 7021-8 ####[facility] LABIA [id number] [place] [address] [facility] 04-07-2025 [facility] Nurse Visit (HEMASA) SKYLER LE ([id number]) 1960 M Date Time Provider Department 04/07/25 1:00 PM VALERIE MOSQUEDA HEMASA During your visit today, we recorded the following information about you: Valerie Mosqueda, RN 04/07/2025 3:36 PM Signed ONCOLOGY PATIENT EDUCATION NOTE TOPIC: Immunotherapy, Medications: Opdivo daughter and patient here today for education for treatment of Kidney Cancer Anticipated/Scheduled start date: TBD READINESS TO LEARN: COGNITIVE ABILITY: Alert and oriented MOTIVATION TO LEARN: Interested FAMILY SUPPORT: High - Very involved in pt care INSTRUCTION PROVIDED TO: Patient and Daughter INSTRUCTION PROVIDED BY: Nurse Coordinator PATIENT LEARNS BEST BY: Multiple Methods FACTORS AFFECTING LEARNING: None PHYSICAL LIMITATIONS AFFECTING LEARNING: None LEARNING RESPONSE METHOD OF INSTRUCTION: Individual instruction Written instruction/Handouts Verbal instruction PATIENT/FAMILY RESPONSE: Verbalizes understanding of: CHEMOTHERAPY-Regimen, toxicity and side effects INFECTION MANAGEMENT-Signs and symptoms of an infection and importance of contacting the physician MEDICAL REGIMEN-Importance of following prescribed medical regimen MEDICATION DOSE MISSED-Correct action to take if medication dose is missed MEDICATION PRESCRIBED-Accurate knowledge of prescribed medication prior to discharge MEDICATION ROUTE-Correct route for administration of the prescribed medication MEDICATION SIDE EFFECTS-Side effects associated with the medication that warrant a call to the physician PATIENT SAFETY PRINCIPLES SYMPTOM MANAGEMENT-Correct actions to take to manage symptoms associated with his/her disease/illness WORSENING CONDITION-Signs and symptoms of a worsening condition that warrant a call to the physician Information received as demonstrated by interest and questions FOLLOW UP PLAN: Patient instructed to call with any further issues Recommend - Recommend continued instruction and follow up as directed Follow up phone call. Contact information given. SUPPLEMENTAL MATERIAL: Written material was provided at this visit with the following information: - Immunotherapy education was provided by a pharmacist NO message sent to pharmacy on teams and they are short staffed today. - Side effect management information was provided/discussed including but not limited to: abdominal discomfort, anemia, appetite changes, arthralgia, bowel habit changes, chest pain, diet, electrolyte disturbances, fatigue, hand-foot syndrome, headache, hypersensitivity reaction, infection, mouth hygiene, mucositis, myalgia, nausea/vomitting, neutropenia, peripheral neuropathy, rash, risk for DVT, shortness of breath, skin changes, taste changes, thrombocytopenia, vision disorder/distrubance, pneumonitis, gastritis, thyroiditis, hepatitis YES - Provided important phone numbers and contacts during and after hours. YES - Provided information on symptoms that require immediate assistance. YES - Provided Chemotherapy Immunotherapy when to call handouts YES - Preventing infection. YES - Treatment schedule and confirmation of appointment times. YES - Available support groups. NA - The importance of contraception during the course of chemotherapy NA - Prescriptions for anti-emetics or treatment prep was given: Compazine and Zofran. YES - Neutropenic fever protocol discussed with patient, which included the importance of reporting any fever of 100.4F (38.0C) or greater to the healthcare team as noted on the provided wallet card and/or magnet. YES - Pt has My Journey binder at home from treatment last week. He will remove the keytruda info and will replace it with opdivo/cabozantinib - Pt requesting recent progress notes to be printed off for him to submit to his employer for an extension that the surgeon gave him. Printed and given to pt. Time Spent: 45 minutes REFERRAL (RECOMMENDATION): N/A Valerie Mosqueda RN ORAL ANTI-CANCER AGENTS EDUCATION daughter and patient here today for oral medication education of cabozantinib for Kidney Cancer Anticipated/Scheduled start date: TBD medication was denied by insurance so pharmacy is working on an appeal. READINESS TO LEARN Cognitive Ability: Alert and oriented Motivation to Learn: Interested Family Support: High - Very involved in pt care Instruction Provided to: Patient and Daughter Patient learns best by: Multiple Methods Factors affecting learning: None Physical limitation affecting learning: None AMAYA ASSESSMENT: 1.) Verified that patient knows that the oral agents are for cancer and are taken by mouth. Yes 2.) Medication review completed during visit. Yes 3.) Patient is able to swallow pills. Yes 4.) Patient is able to read the drug label/information. Yes 5.) Patient is able to open the medication bottles and packages. Yes (more content not included)... Normal [facility] CNOVSPon 04-07-2025 CNOVSP Visit (SP) Office (HEMASA) SKYLER LE ([id number]) 1960 M Date Time Provider Department 04/07/25 1:20 PM ERNESTO PHOENIX During your visit today, we recorded the following information about you: Temperature Pulse Respiration Blood pressure 97 degrees 43/minute 18/minute 119/79 Weight 122.6 kg Ernesto Phoenix MD 04/07/2025 2:27 PM Addendum PATIENT NAME: Skyler Le CLINIC NO.: [id number] ATTENDING PHYSICIAN: Ernesto Phoenix MD DATE OF SERVICE: 04/07/[address] Bing Arvizu [id number] [address] [facility] [address] thank you for referring Skyler Le for an opinion regarding Kidney cancer. Some of the elements of this note have been copied from my previous progress note dated 03/18/25. All the information has been reviewed carefully. CHIEF COMPLAINT: Kidney cancer HPI: Skyler Le is a 65 year old year old [...] unusual findings. Doing well - Works in [place]. - No smoking - No alcohol. - No family h/o cancer. - No major complaints. 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 METASTATIC DISEASE: No metabolically active distant metastases - MRI brain - Normal. - Doing well - No major complaints. Current Outpatient Medications [...] seen Extremities: No deformities. No edema Neuro: Gai (more content not included)... Normal [facility] 04-07-2025 [facility] Telephone (NCCAP) SKYLER LE ([id number]) 1960 M Date Time Provider Department 04/07/25 [facility] During your visit today, we recorded the following information about you: Pearl Burden 04/07/2025 2:28 PM Signed Sent email to [facility] to refer patient to for second opinion. Pearl Morgan 04/09/2025 9:18 AM Signed FYI: Patient is scheduled with Dr. Young on 04/09. Pearl Burden Allergies As of Date: 04/07/2025 Noted Allergy Reaction FLOMAX (TAMSULOSIN) 02/27/2025 14 - Other: See Comments Comments: dizziness and back pain Date Reviewed: 04/07/2025 Reviewed by: Osmany Echevarria MA - Fully Assessed Reason for Visit: Referral Information [4621] Prescriptions as of 04/09/2025 - cabozantinib (CABOMETYX) 40 mg tablet Take 1 tablet (40 mg) by mouth once daily. - bisacodyl EC (DULCOLAX, BISACODYL,) 5 mg EC tablet Take 5 mg by mouth once daily as needed for constipation. - inulin (FIBER GUMMIES PO) Take 1 each by mouth two times a day. - prochlorperazine (COMPAZINE) 10 mg tablet Take 1 tablet by mouth every 6 hours as needed. - ondansetron (ZOFRAN) 8 mg tablet Take 1 tablet by mouth every 8 hours as needed for nausea/vomiting. - docusate sodium (COLACE ORAL) Take 1 capsule by mouth two times a day. - allopurinol (ZYLOPRIM) 300 mg tablet Take 300 mg by mouth two times a day. - acetaminophen (TYLENOL) 325 mg tablet Take 2 tablets by mouth every 6 hours as needed for pain. - metoprolol tartrate, short acting, (LOPRESSOR) 100 mg tablet Take 100 mg by mouth two times a day. - dutasteride (AVODART) 0.5 mg capsule Take 0.5 mg by mouth once daily. - spironolactone (ALDACTONE) 25 mg tablet Take 25 mg by mouth two times a day. - metFORMIN (GLUCOPHAGE) 1,000 mg tablet Take 500 mg by mouth two times a day. - FLUoxetine (PROZAC) 10 mg capsule Take 10 mg by mouth once daily. Problem List As Of Date 04/07/2025 Noted Resolved BPH with obstruction/lower urinary tract sympto*02/07/2025 Depression [F32.A] 02/07/2025 Type 2 diabetes mellitus without complications *02/07/2025 Hypertension [I10] 02/07/2025 ROSA M (obstructive sleep apnea) [G47.33] 02/07/2025 Class 2 obesity due to excess calories without *02/07/2025 Iron deficiency anemia, unspecified [D50.9] 02/10/2025 Intestinal malabsorption (HCC) [K90.9] 02/10/2025 Kidney mass [N28.89] 02/28/2025 Renal cell carcinoma of left kidney (HCC) [C64.*03/18/2025 Encounter Status:Closed by PEARL BURDEN on 04/09/25 Normal [facility] Comprehensive metabolic 2000 panelOrdered By: Domenic Matias on 04-07-2025 Albumin [Mass/Vol] 4.1 g/dL 3.9 - 4.9 g/dL [facility] ALP [Catalytic activity/Vol] 75 U/L 38 - 113 U/L [facility] ALT [Catalytic activity/Vol] 8 U/L Low 10 - 54 U/L [facility] Anion gap [Moles/Vol] 8 mmol/L 8 - 15 mmol/L [facility] AST [Catalytic activity/Vol] 10 U/L Low 14 - 40 U/L [facility] Bilirubin [Mass/Vol] 0.2 mg/dL 0.2 - 1 .3 mg/dL [facility] Calcium [Mass/Vol] 9.7 mg/dL 8.5 - 10. 2 mg/dL [facility] Chloride [Moles/Vol] 100 mmol/L 98 - 10 7 mmol/L [facility] CO2 [Moles/Vol] 25 mmol/L 22 - 30 mmol/L [facility] Creatinine [Mass/Vol] 1.96 mg/dL High 0.73 - 1.22 mg/dL [facility] GFR/1.73 sq M.predicted among non-blacks MDRD (S/P/Bld) [Vol rate/Area] 37 mL/min/{1.73_m2} Low - PINF [facility] Comment on above: Estimated Glomerular Filtration Rate [...] not accurately reflect actual GFR. Glucose [Mass/Vol] 99 mg/dL 74 - 99 mg/dL [facility] Comment on above: The [place] Diabete s Association (ADA) provides guidance for [...] Standards of Medical Care in Diabetes 2016, [place] Diabetes Association. Diabetes Care. 2016.39(Suppl 1). Interpretation and review of laboratory results Abnormal [facility] Potassium [Moles/Vol] 4.7 mmol/L 3.7 - 5.1 mmol/L [facility] Protein [Mass/Vol] 7.1 g/dL 6.3 - 8.0 g/dL [facility] Sodium [Moles/Vol] 133 mmol/L Low 136 - 144 mmol/L [facility] Urea nitrogen [Mass/Vol] 27 mg/dL High 9 - 24 mg/dL [facility] Comprehensive metabolic 2000 panelon 04-07-2025 Albumin [Mass/Vol] 4.1 g/dL Normal 3.9-4.9 [facility] Comment on above: Order Comment: Speci men Type: BLOOD SPECIMENOrdering Facility: [facility] Address: [address] [place] [address] Performed By: #### 2 532-0, ####[facility] LABCLIA [id number] [place] [address] ALP [Catalytic activity/Vol] 75 U/L Normal 38-113 [facility] Comment on above: Order Comment: Speci men Type: BLOOD SPECIMENOrdering Facility: [facility] Address: [address] [place] [address] Performed By: #### 2 532-0, ####[facility] LABCLIA [id number] [place] [address] ALT [Catalytic activity/Vol] 8 U/L Low 10-54 [facility] Comment on above: Order Comment: Speci men Type: BLOOD SPECIMENOrdering Facility: [facility] Address: [address] [place] [address] Performed By: #### 2 532-0, ####[facility] LABCLIA [id number] [place] [address] Anion gap [Moles/Vol] 8 mmol/L Normal 8-15 [facility] Comment on above: Order Comment: Speci men Type: BLOOD SPECIMENOrdering Facility: [facility] Address: [address] [place] [address] Performed By: #### 2 532-0, ####[facility] LABCLIA [id number] [place] [address] AST [Catalytic activity/Vol] 10 U/L Low 14-40 [facility] Comment on above: Order Comment: Speci men Type: BLOOD SPECIMENOrdering Facility: [facility] Address: [address] [place] [address] Performed By: #### 2 532-0, ####[facility] LABCLIA [id number] [place] [address] Bilirubin [Mass/Vol] 0.2 mg/dL Normal 0.2-1.3 [facility] Comment on above: Order Comment: Speci men Type: BLOOD SPECIMENOrdering Facility: [facility] Address: [address] [place] [address] Performed By: #### 2 532-0, ####[facility] LABCLIA [id number] [place] [address] Calcium [Mass/Vol] 9.7 mg/dL Normal 8.5-10.2 [facility] Comment on above: Order Comment: Speci men Type: BLOOD SPECIMENOrdering Facility: [facility] Address: [address] [place] [address] Performed By: #### 2 532-0, ####[facility] LABCLIA [id number] [place] [address] Chloride [Moles/Vol] 100 mmol/L Normal 98-107 [facility] Comment on above: Order Comment: Speci men Type: BLOOD SPECIMENOrdering Facility: [facility] Address: [address] [place] [address] Performed By: #### 2 532-0, ####[facility] LABCLIA [id number] [place] [address] CO2 [Moles/Vol] 25 mmol/L Normal 22-30 [facility] Comment on above: Order Comment: Speci men Type: BLOOD SPECIMENOrdering Facility: [facility] Address: [address] [place], [place] [address] Performed By: #### 2 532-0, ####[facility] LABCLIA [id number] [place] [address] Creatinine [Mass/Vol] 1.96 mg/dL High 0.73-1.22 [facility] Comment on above: Order Comment: Speci men Type: BLOOD SPECIMENOrdering Facility: [facility] Address: [address] [place] [address] Performed By: #### 2 532-0, 24070-9 ####[facility] LABCLIA [id number] [place] [address] Creatinine and Glomerular filtration rate.predicted panel (S/P/Bld) 37 mL/min/1.73m??? Low >=60 [facility] Comment on above: Order Comment: Miguelina thomas Type: BLOOD SPECIMENOrdering Facility: [facility] Address: [address] [place] [address] Result Comment: Samantha mated Glomerular Filtration Rate [...] reflect actual GFR. Performed By: #### 2 532-0, 90671-5 ####[facility] LABCLIA [id number] [place] [address] Glucose [Mass/Vol] 99 mg/dL Normal 74-99 [facility] Comment on above: Order Comment: Miguelina thomas Type: BLOOD SPECIMENOrdering Facility: [facility] Address: [address] [place] [address] Result Comment: The [place] Diabetes Association (ADA) provides guidance for cutoff [...] Standards of Medical Care in Diabetes 2016, [place] Diabetes Association. Diabetes Care. 2016.39(Suppl 1). Performed By: #### 2 532-0, ####[facility] LABCLIA [id number] [place] [address] Potassium [Moles/Vol] 4.7 mmol/L Normal 3.7-5.1 [facility] Comment on above: Order Comment: Speci men Type: BLOOD SPECIMENOrdering Facility: [facility] Address: [address] [place] [address] Performed By: #### 2 532-0, ####[facility] LABCLIA [id number] [place] [address] Protein [Mass/Vol] 7.1 g/dL Normal 6.3-8.0 [facility] Comment on above: Order Comment: Speci men Type: BLOOD SPECIMENOrdering Facility: [facility] Address: [address] [place] [address] Performed By: #### 2 532-0, ####[facility] LABCLIA [id number] [place] [address] Sodium [Moles/Vol] 133 mmol/L Low 136-144 [facility] Comment on above: Order Comment: Speci men Type: BLOOD SPECIMENOrdering Facility: [facility] Address: [address] [place] [address] Performed By: #### 2 532-0, ####[facility] LABCLIA [id number] [place] [address] Urea nitrogen [Mass/Vol] 27 mg/dL High 9-24 [facility] Comment on above: Order Comment: Speci men Type: BLOOD SPECIMENOrdering Facility: [facility] Address: [address] [place] [address] Performed By: #### 2 532-0, ####[facility] LABCLIA [id number] [place] [address] LACTATE DEHYDROGENASEon 07-0 LDH [Catalytic activity/Vol] 116 U/L Low 135 - 225 U/L [facility] LDH SerPl-cCncon 04-07-2025 LDH [Catalytic activity/Vol] 116 U/L Low 135-225 [facility] Comment on above: Order Comment: Speci men Type: BLOOD SPECIMENOrdering Facility: [facility] Address: [address] [place] [address] Performed By: #### 2 532-0, 41301-9 ####[facility] LABCLIA [id number] [place] [address] LDH [Catalytic activity/Vol] on 04-07-2025 Interpretation and review of laboratory results Abnormal [facility] MISC SEND OUT TST 1on 2024 MISC SCAN TEST RESULTS 1 Normal [facility] Comment on above: Order Comment: Speci men Type: BLOOD SPECIMENOrdering Facility: [facility] Address: [address] [place] [address] Result Comment: Rese arch Performed By: #### M ISC1 ####[facility] LABCLIA [id number] [place] [address] [place] REFERRAL LAB 1 (DROP-DOWN) Normal [facility] Comment on above: Order Comment: Speci men Type: BLOOD SPECIMENOrdering Facility: [facility] Address: [address] [place] [address] Result Comment: Rese arch Performed By: #### M ISC1 ####[facility] LABCLIA [id number] [place] [address] [place] TEST 1 Normal [facility] Comment on above: Order Comment: Speci men Type: BLOOD SPECIMENOrdering Facility: [facility] Address: [address] [place] [address] Result Comment: Rese arch Performed By: #### M ISC1 ####[facility] LABCLIA [id number] [place] [id number] [place] CNPLoren 04-02-2025 CNPN Telephone (FVUROL) LESKYLER MYLES ([id number]) 1960 M Date Time Provider Department 04/02/25 BING ARVIZU During your visit today, we recorded the following information about you: Tamiko Jimenes 04/02/2025 4:02 PM Addendum Patient called into office requesting a release back to work letter from recent surgery with Dr. Arvizu. He is asking for release date of 04/14/2025. Patient can be reached on number listed in [employer] as home/mobile. Krzysztof Gil MA 04/03/2025 10:37 AM Signed Sent letter to patient via [employer] message for patient advising a return to work letter has been sent to his [employer] Krzysztof Gil MA Allergies As of Date: 04/02/2025 Noted Allergy Reaction FLOMAX (TAMSULOSIN) 02/27/2025 14 - Other: See Comments Comments: dizziness and back pain Date Reviewed: 03/18/2025 Reviewed by: Isabella Javier MA - Fully Assessed Reason for Visit: Release back to work letter [Other] Prescriptions as of 04/03/2025 - cabozantinib (CABOMETYX) 40 mg tablet Take 1 tablet (40 mg) by mouth once daily. - bisacodyl EC (DULCOLAX, BISACODYL,) 5 mg EC tablet Take 5 mg by mouth once daily as needed for constipation. - inulin (FIBER GUMMIES PO) Take 1 each by mouth two times a day. - prochlorperazine (COMPAZINE) 10 mg tablet Take 1 tablet by mouth every 6 hours as needed. - ondansetron (ZOFRAN) 8 mg tablet Take 1 tablet by mouth every 8 hours as needed for nausea/vomiting. - docusate sodium (COLACE ORAL) Take 1 capsule by mouth two times a day. - allopurinol (ZYLOPRIM) 300 mg tablet Take 300 mg by mouth two times a day. - acetaminophen (TYLENOL) 325 mg tablet Take 2 tablets by mouth every 6 hours as needed for pain. - metoprolol tartrate, short acting, (LOPRESSOR) 100 mg tablet Take 100 mg by mouth two times a day. - dutasteride (AVODART) 0.5 mg capsule Take 0.5 mg by mouth once daily. - spironolactone (ALDACTONE) 25 mg tablet Take 25 mg by mouth two times a day. - metFORMIN (GLUCOPHAGE) 1,000 mg tablet Take 500 mg by mouth two times a day. - FLUoxetine (PROZAC) 10 mg capsule Take 10 mg by mouth once daily. Problem List As Of Date 04/02/2025 Noted Resolved BPH with obstruction/lower urinary tract sympto*02/07/2025 Depression [F32.A] 02/07/2025 Type 2 diabetes mellitus without complications *02/07/2025 Hypertension [I10] 02/07/2025 ROSA M (obstructive sleep apnea) [G47.33] 02/07/2025 Class 2 obesity due to excess calories without *02/07/2025 Iron deficiency anemia, unspecified [D50.9] 02/10/2025 Intestinal malabsorption (HCC) [K90.9] 02/10/2025 Kidney mass [N28.89] 02/28/2025 Renal cell carcinoma of left kidney (HCC) [C64.*03/18/2025 Letter Text Encounter Status:Closed by KRZYSZTOF GIL on 04/03/25 [facility] CNPN Telephone (SDOPRX) SKYLER LE ([id number]) 1960 M Date Time Provider Department 04/02/25 ISABELA DE LA FUENTE SDOPRX During your visit today, we recorded the following information about you: Isabela De La Fuente [facility] 04/07/2025 1:44 PM Signed Ambulatory Pharmacy Prior Authorization Note Provider Intervention Required?: No - Pharmacy completed on your behalf. Was the PA documented within the ePA workqueue?: No Rx Plan: Other: JeffreyRezeechristiano Drug: Cabometyx Cover My Meds Amaya: NA Determination: Denied PA Denied because: Step therapy requirement - Patient's insurance prefers P[employer]/Lenvima first line Prior Authorization/Case #: [id number] Prior Authorization Expiration: Time to PA Submission in CMM: 30 min Time to PA Determination in CMM: 3 days Additional Information: Appeal was faxed to [employer] at (Phone #: ) For questions relating to this submission, please contact [facility] at [phone] Isabela De La Fuente RPh 04/09/2025 11:36 AM Addendum Approval received. Must fill at [facility]. New script pended. Pharmacy contact # . Sent [employer] Message to patient updating him on status of medication. Appeal follow-up: Called 04/09/25 : Notified case is in clinical review and could take up to 30 business days. Informed leasing representative that was unacceptable and to please candy the case urgent. Web Operations Administrator marked appeal high priority. Case #[id number] Allergies As of Date: 04/02/2025 Noted Allergy Reaction FLOMAX (TAMSULOSIN) 02/27/2025 14 - Other: See Comments Comments: dizziness and back pain Date Reviewed: 03/18/2025 Reviewed by: Isabella Javier MA - Fully Assessed Reason for Visit: Medication Update [3198] Cmt: Cabometyx Prescriptions as of 04/09/2025 - lenvatinib (LENVIMA) 20 mg/day (10 mg x 2) capsules Take 2 capsules by mouth once daily. - bisacodyl EC (DULCOLAX, BISACODYL,) 5 mg EC tablet Take 5 mg by mouth once daily as needed for constipation. - inulin (FIBER GUMMIES PO) Take 1 each by mouth two times a day. - prochlorperazine (COMPAZINE) 10 mg tablet Take 1 tablet by mouth every 6 hours as needed. - ondansetron (ZOFRAN) 8 mg tablet Take 1 tablet by mouth every 8 hours as needed for nausea/vomiting. - docusate sodium (COLACE ORAL) Take 1 capsule by mouth two times a day. - allopurinol (ZYLOPRIM) 300 mg tablet Take 300 mg by mouth two times a day. - acetaminophen (TYLENOL) 325 mg tablet Take 2 tablets by mouth every 6 hours as needed for pain. - metoprolol tartrate, short acting, (LOPRESSOR) 100 mg tablet Take 100 mg by mouth two times a day. - dutasteride (AVODART) 0.5 mg capsule Take 0.5 mg by mouth once daily. - spironolactone (ALDACTONE) 25 mg tablet Take 25 mg by mouth two times a day. - metFORMIN (GLUCOPHAGE) 1,000 mg tablet Take 500 mg by mouth two times a day. - FLUoxetine (PROZAC) 10 mg capsule Take 10 mg by mouth once daily. Problem List As Of Date 04/02/2025 Noted Resolved BPH with obstruction/lower urinary tract sympto*02/07/2025 Depression [F32.A] 02/07/2025 Type 2 diabetes mellitus without complications *02/07/2025 Hypertension [I10] 02/07/2025 ROSA M (obstructive sleep apnea) [G47.33] 02/07/2025 Class 2 obesity due to excess calories without *02/07/2025 Iron deficiency anemia, unspecified [D50.9] 02/10/2025 Intestinal malabsorption (HCC) [K90.9] 02/10/2025 Kidney mass [N28.89] 02/28/2025 Renal cell carcinoma of left kidney (HCC) [C64.*03/18/2025 Encounter Status:Closed by ISABELA DE LA FUENTE on 04/09/[address] [facility] CNPN Telephone (HEMASA) SKYLER LE ([id number]) 1960 M Date Time Provider Department 04/02/25 KENNYSOLOMONSOLANGEERNESTO During your visit today, we recorded the following information about you: Pao FrancoNirmala Lisa 04/02/2025 2:19 PM Signed Referral and records faxed to Dr. Urbina. Steve- please follow up on this, Alla Art Deana 04/07/2025 2:[address] Urbina officel. Their office has received this referral and will be calling patient soon to get scheduled. Deana Alla Art Pao FrancoNirmala 04/10/2025 3:44 PM Signed Patient is scheduled with Dr. Urbina on 04/21/25 @ 3:40. Allergies As of Date: 04/02/2025 Noted Allergy Reaction FLOMAX (TAMSULOSIN) 02/27/2025 14 - Other: See Comments Comments: dizziness and back pain Date Reviewed: 03/18/2025 Reviewed by: Isabella Javier MA - Fully Assessed Reason for Visit: Nephrology Referral [Other] Prescriptions as of 04/10/2025 - lenvatinib (LENVIMA) 20 mg/day (10 mg x 2) capsules Take 2 capsules by mouth once daily. - bisacodyl EC (DULCOLAX, BISACODYL,) 5 mg EC tablet Take 5 mg by mouth once daily as needed for constipation. - inulin (FIBER GUMMIES PO) Take 1 each by mouth two times a day. - prochlorperazine (COMPAZINE) 10 mg tablet Take 1 tablet by mouth every 6 hours as needed. - ondansetron (ZOFRAN) 8 mg tablet Take 1 tablet by mouth every 8 hours as needed for nausea/vomiting. - docusate sodium (COLACE ORAL) Take 1 capsule by mouth two times a day. - allopurinol (ZYLOPRIM) 300 mg tablet Take 300 mg by mouth two times a day. - acetaminophen (TYLENOL) 325 mg tablet Take 2 tablets by mouth every 6 hours as needed for pain. - metoprolol tartrate, short acting, (LOPRESSOR) 100 mg tablet Take 100 mg by mouth two times a day. - dutasteride (AVODART) 0.5 mg capsule Take 0.5 mg by mouth once daily. - spironolactone (ALDACTONE) 25 mg tablet Take 25 mg by mouth two times a day. - metFORMIN (GLUCOPHAGE) 1,000 mg tablet Take 500 mg by mouth two times a day. - FLUoxetine (PROZAC) 10 mg capsule Take 10 mg by mouth once daily. Problem List As Of Date 04/02/2025 Noted Resolved BPH with obstruction/lower urinary tract sympto*02/07/2025 Depression [F32.A] 02/07/2025 Type 2 diabetes mellitus without complications *02/07/2025 Hypertension [I10] 02/07/2025 ROSA M (obstructive sleep apnea) [G47.33] 02/07/2025 Class 2 obesity due to excess calories without *02/07/2025 Iron deficiency anemia, unspecified [D50.9] 02/10/2025 Intestinal malabsorption (HCC) [K90.9] 02/10/2025 Kidney mass [N28.89] 02/28/2025 Renal cell carcinoma of left kidney (HCC) [C64.*03/18/2025 Encounter Status:Closed by NIRMALA FELIZ on 04/10/25 [facility] CNNURSEon 04-01-2025 CNNURSE Nurse Visit (HEMASA) SKYLER LE ([id number]) 1960 M Date Time Provider Department 04/01/25 11:00 AM VALERIE MOSQUEDA During your visit today, we recorded the following information about you: Travis Viveros RPh 04/01/2025 11:52 AM Signed [facility] Department of Pharmacy Oncology Pharmacy Medication Education Patient Name: Skyler Rajan Mimi Primary Oncologist: Alban Diagnosis: Renal cell carcinoma L kidney Skyler Rajan Mimi is a 65 year old patient here today for medication education for IV PEMBROLIZUMAB . Drug Interactions: Clinically significant interactions with chemotherapy, immunosuppression, or other standard of care treatment plan medications anticipated: No. There are no pertinent drug interactions identified. Patient was counseled accordingly. Allergies: Patient confirmed allergies documented in Epic are correct: Yes Was medication education provided?: Yes Medication Education: Administration and schedule: PEMBROLIZUMAB 200 D1 - Q21D Potential side effects discussed: yes PO chemo: Not applicable Was medication reconciliation performed?: Yes Changes made to medication list? Yes The following medications were updated within the home medication list: Medications ADDED to home medication list: Gummy fiber Dulcolax 5mg Medications UPDATED on home medication list: Allopurinol docusate Current Outpatient Medications Medication Sig bisacodyl EC (DULCOLAX, BISACODYL,) 5 mg EC tablet Take 5 mg by mouth once daily as needed for constipation. inulin (FIBER GUMMIES PO) Take 1 each by mouth two times a day. prochlorperazine (COMPAZINE) 10 mg tablet Take 1 tablet by mouth every 6 hours as needed. ondansetron (ZOFRAN) 8 mg tablet Take 1 tablet by mouth every 8 hours as needed for nausea/vomiting. docusate sodium (COLACE ORAL) Take 1 capsule by mouth two times a day. allopurinol (ZYLOPRIM) 300 mg tablet Take 300 mg by mouth two times a day. acetaminophen (TYLENOL) 325 mg tablet Take 2 [...] No current facility-administered medications for this visit. - Chemotherapy education was provided by a pharmacist YES -Thank you for allowing us to participate in the care of this patient. I spent 15 time (15 minute increments) with the patient Travis Viveros, Valerie Swann RN 04/01/2025 2:25 PM Signed ONCOLOGY PATIENT EDUCATION NOTE TOPIC: Immunotherapy, Medications: keytruda patient here today for education for treatment of Kidney Cancer Anticipated/Scheduled start date: 04/07/25 READINESS TO LEARN: COGNITIVE ABILITY: Alert and oriented MOTIVATION TO LEARN: Interested FAMILY SUPPORT: High - Very involved in pt care INSTRUCTION PROVIDED TO: Patient INSTRUCTION PROVIDED BY: Nurse Coordinator AND pharmacist PATIENT LEARNS BEST BY: Multiple Methods FACTORS AFFECTING LEARNING: None PHYSICAL LIMITATIONS AFFECTING LEARNING: None LEARNING RESPONSE METHOD OF INSTRUCTION: Individual instruction Written instruction/Handouts Verbal instruction PATIENT/FAMILY RESPONSE: Verbalizes understanding of: CHEMOTHERAPY-Regimen, toxicity and side effects INFECTION MANAGEMENT-Signs and symptoms of an infection and importance of contacting the physician MEDICAL REGIMEN-Importance of following prescribed medical regimen MEDICATION PRESCRIBED-Accurate knowledge of prescribed medication prior to discharge MEDICATION ROUTE-Correct route for administration of the prescribed medication MEDICATION SIDE EFFECTS-Side effects associated with the medication that warrant a call to the physician PATIENT SAFETY PRINCIPLES SYMPTOM MANAGEMENT-Correct actions to take to manage symptoms associated with his/her disease/illness WORSENING CONDITION-Signs and symptoms of a worsening condition that warrant a call to the physician Information received as demonstrated by interest and questions FOLLOW UP PLAN: Patient instructed to call with any further issues Recommend - Recommend continued instruction and follow up as directed Follow up phone call. Contact information given. SUPPLEMENTAL MATERIAL: Written material was provided at this visit with the following information: - Immunotherapy education was provided by a pharmacist YES - Side effect management information was provided/discussed including but not limited to: abdominal discomfort, anemia, appetite changes, arthralgia, bowel habit changes, chest pain, diet, (more content not included)... [facility] GLUCOSE, BLOOD (POC)on 04-01 Glucose [Mass/Vol] 104 mg/dL Abnormal 74 - 99 mg/dL [facility] Comment on above: Location:[facility], [address] [place] [address] , [place], [place], [address] The Accu-Chek Inform II glucose meter has [...] blood gas instrument) in the above situations. Interpretation and review of laboratory results Abnormal [facility] PET/CT SKULL-THIGH INITon 04-01-2025 NM PET/CT SKULL-THIGH INIT * * *Final Report* * * DATE [...] designed to produce diagnostic CT scan quality. Physiologic/non-patholo gic uptake in some body regions could confound or obscure some pathology. * CT Dose-Length Product (DLP): 417 mGy*cm * CT Dose Reduction Employed: Yes * Blood glucose: 104 mg/dL * Injection site: Right Forearm-Antecubital * Injected activity: 16.6 mCi * Uptake Time: 60 minutes * Radiopharmaceutical: V07-Eydchpagnbqzomjgon (FDG) COMPARISON: No previous FDG PET/CT available CORRELATION: [facility] CT abdomen/pelvis 12/14/2024 RESULT: REFERENCES: FDG uptake [...] lobe measures SUV max 3.7. CHEST: Lungs and Pleura: No radiotracer avid mass, nodule, or consolidation. No pleural effusion. Lymph Nodes: No radiotracer avid lymphadenopathy. Mediastinum: No radiotracer avid mass. Cardiovascular: Blood pool activity. No pericardial effusion. Normal heart size. Coronary artery calcifications. Chest Wall: Foci of uptake along the posterior/inferior left chest wall are likely postsurgical/inflammato ry. Bilateral gynecomastia. ABDOMEN AND PELVIS: Hepatobiliary: No [...] Attention on follow-up recommended to ensure resolution. KARIS DISEASE: * Metabolically active enlarged left para-aortic retroperitoneal metastatic node. METASTATIC DISEASE: * No metabolically active distant metastases. ADDITIONAL FINDINGS: * Focal metabolic activity at the inferior right thyroid lobe. Further characterization with thyroid ultrasound recommended. * Foci of uptake along the posterior/inferior left chest wall, likely postsurgical/inflammato ry. Transcribe Date/Time: Flex 1 2025 2:38P Dictated by: IRENE POWER MD This examination was interpreted and the report reviewed and electronically signed by: IRENE POWER MD on Apr 01 2025 3:34PM EST Thank you for allowing us to participate in the care of your patient. Should there be any questi (more content not included)... Normal [facility] PET+CT Guidance for localiza tion of tumor of Skull base to mid-thigh-- W 18F-FDG Nikita 04-01-2025 * * *Final Report* * * DATE [...] designed to produce diagnostic CT scan quality. Physiologic/non-patholo gic uptake in some body regions could confound or obscure some pathology. * CT Dose-Length Product (DLP): 417 mGy*cm * CT Dose Reduction Employed: Yes * Blood glucose: 104 mg/dL * Injection site: Right Forearm-Antecubital * Injected activity: 16.6 mCi * Uptake Time: 60 minutes * Radiopharmaceutical: N90-Gilbavmlsfxsfbhbjc (FDG) COMPARISON: No previous FDG PET/CT available CORRELATION: [facility] CT abdomen/pelvis 12/14/2024 RESULT: REFERENCES: FDG uptake [...] the posterior/inferior left chest wall are likely postsurgical/inflammato ry. Bilateral gynecomastia. ABDOMEN AND PELVIS: Hepatobiliary: No [...] Attention on follow-up recommended to ensure resolution. KARIS DISEASE: * Metabolically active enlarged left para-aortic retroperitoneal metastatic node. METASTATIC DISEASE: * No metabolically active distant metastases. ADDITIONAL FINDINGS: * Focal metabolic activity at the inferior right thyroid lobe. Further characterization with thyroid ultrasound recommended. * Foci of uptake along the posterior/inferior left chest wall, likely postsurgical/inflammato ry. Transcribe Date/Time: Apr 01 2025 2:38P Dictated by: IRENE POWER MD This examination was interpreted and the report reviewed and electronica (more content not included)... DIVISION OF RADIOLOGY Provider, [facility] - 04/01/2025 * * *Final Report* * [...] designed to produce diagnostic CT scan quality. Physiologic/non-patholo gic uptake in some body regions could confound or obscure some pathology. * CT Dose-Length Product (DLP): 417 mGy*cm * CT Dose Reduction Employed: Yes * Blood glucose: 104 mg/dL * Injection site: Right Forearm-Antecubital * Injected activity: 16.6 mCi * Uptake Time: 60 minutes * Radiopharmaceutical: I99-Ecqeopiifsmpnlqama (FDG) COMPARISON: No previous FDG PET/CT available CORRELATION: [facility] CT abdomen/pelvis 12/14/2024 RESULT: REFERENCES: FDG uptake [...] the posterior/inferior left chest wall are likely postsurgical/inflammato ry. Bilateral gynecomastia. ABDOMEN AND PELVIS: Hepatobiliary: No [...] Attention on follow-up recommended to ensure resolution. KARIS DISEASE: * Metabolically active enlarged left para-aortic retroperitoneal metastatic node. METASTATIC DISEASE: * No metabolically active distant metastases. ADDITIONAL FINDINGS: * Focal metabolic activity at the inferior right thyroid lobe. Further characterization with thyroid ultrasound recommended. * Foci of uptake along the posterior/inferior left chest wall, likely postsurgical/inflammato ry. Transcribe Date/Time: Apr 01 2025 2:38P Dictated by: IRENE POWER MD This examination was interpreted and the report reviewed and electroni (more content not included)... [facility] Radiology Study observation (narrative) [facility] PET+CT Guidance for localiza tion of tumor of Skull base to mid-thigh-- W 18F-FDG IVOrdered By: [facility] Provider on 04-01-2025 [facility] 03-28-2025 CNPN Telephone (HEMASA) SKYLER LE ([id number]) 1960 M Date Time Provider Department 03/28/25 VALERIE MOSQUEDA During your visit today, we recorded the following information about you: Valerie Mosqueda RN 03/28/2025 12:45 PM Signed Pt will be in for education on Monday. Please sign pending orders. 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 - lenvatinib (LENVIMA) 10 mg/day (10 mg x 1) capsule Take 2 capsules by mouth once daily. - inulin (FIBER GUMMIES PO) Take 1 each by mouth two times a day. - prochlorperazine (COMPAZINE) 10 mg tablet Take 1 tablet by mouth every 6 hours as needed. - ondansetron (ZOFRAN) 8 mg tablet Take 1 tablet by mouth every 8 hours as needed for nausea/vomiting. - docusate sodium (COLACE ORAL) Take 1 capsule by mouth two times a day. - allopurinol (ZYLOPRIM) 300 mg tablet Take 300 mg by mouth two times a day. - acetaminophen (TYLENOL) 325 mg tablet Take 2 tablets by mouth every 6 hours as needed for pain. - metoprolol tartrate, short acting, (LOPRESSOR) 100 mg tablet Take 100 mg by mouth two times a day. - dutasteride (AVODART) 0.5 mg capsule Take 0.5 mg by mouth once daily. - spironolactone (ALDACTONE) 25 mg tablet Take 25 mg by mouth two times a day. - metFORMIN (GLUCOPHAGE) 1,000 mg tablet Take 500 mg by mouth two times a day. - FLUoxetine (PROZAC) 10 mg capsule Take 10 mg by mouth once daily. Problem List As Of Date 03/28/2025 Noted Resolved BPH with obstruction/lower urinary tract sympto*02/07/2025 Depression [F32.A] 02/07/2025 Type 2 diabetes mellitus without complications *02/07/2025 Hypertension [I10] 02/07/2025 ROSA M (obstructive sleep apnea) [G47.33] 02/07/2025 Class 2 obesity due to excess calories without *02/07/2025 Iron deficiency anemia, unspecified [D50.9] 02/10/2025 Intestinal malabsorption (HCC) [K90.9] 02/10/2025 Kidney mass [N28.89] 02/28/2025 Renal cell carcinoma of left kidney (HCC) [C64.*03/18/2025 Prescriptions ordered this encounter Disp Refills Start End PROCHLORPERAZINE MALEATE 10 MG TABLET 100 * 2 03/28/2025 Route: PO Sig: Take 1 tablet by mouth every 6 hours as needed. ONDANSETRON HCL 8 MG TABLET 90 t* 2 03/28/2025 Route: PO Sig: Take 1 tablet by mouth every 8 hours as needed for nausea/vomiting. Encounter Status:Closed by VALERIE MOSQUEDA on 05/12/[address] [facility] Sarai 03-20-2025 CNPN Telephone (HEMASA) SKYLER LE ([id number]) 1960 M Date Time Provider Department 03/20/25 ERNESTO PHOENIX During your visit today, we recorded the following information about you: Ernesto Phoenix MD 03/20/2025 8:32 AM Signed Please load keytruda 200mg every 3 weeks and schedule it. Thank you Pearl Burden 03/20/2025 8:54 AM Signed Patient is scheduled to begin on 04/07. Tamika Cooney [facility] 03/20/2025 9:32 AM Signed Orders entered and routed in a separate encounter. Tayo Madison, PharmD, BCOP Allergies As of Date: 03/20/2025 Noted Allergy Reaction FLOMAX (TAMSULOSIN) 02/27/2025 14 - Other: See Comments Comments: dizziness and back pain Date Reviewed: 03/18/2025 Reviewed by: Isabella Javier MA - Fully Assessed Prescriptions as of 03/20/2025 - docusate sodium (COLACE ORAL) Take by mouth. - allopurinol (ZYLOPRIM) 300 mg tablet TAKE 2 TABLETS BY MOUTH EVERY DAY for 90 days - acetaminophen (TYLENOL) 325 mg tablet Take 2 tablets by mouth every 6 hours as needed for pain. - metoprolol tartrate, short acting, (LOPRESSOR) 100 mg tablet Take 100 mg by mouth two times a day. - dutasteride (AVODART) 0.5 mg capsule Take 0.5 mg by mouth once daily. - spironolactone (ALDACTONE) 25 mg tablet Take 25 mg by mouth two times a day. - metFORMIN (GLUCOPHAGE) 1,000 mg tablet Take 500 mg by mouth two times a day. - FLUoxetine (PROZAC) 10 mg capsule Take 10 mg by mouth once daily. Problem List As Of Date 03/20/2025 Noted Resolved BPH with obstruction/lower urinary tract sympto*02/07/2025 Depression [F32.A] 02/07/2025 Type 2 diabetes mellitus without complications *02/07/2025 Hypertension [I10] 02/07/2025 ROSA M (obstructive sleep apnea) [G47.33] 02/07/2025 Class 2 obesity due to excess calories without *02/07/2025 Iron deficiency anemia, unspecified [D50.9] 02/10/2025 Intestinal malabsorption (HCC) [K90.9] 02/10/2025 Kidney mass [N28.89] 02/28/2025 Renal cell carcinoma of left kidney (HCC) [C64.*03/18/2025 Encounter Status:Closed by TAMIKA MADISON on 03/20/[address] [facility] CNOVSPon 03-18-2025 CNOVSP Visit (SP) Office (HEMASA) SKYLER LE ([id number]) 1960 M Date Time Provider Department 03/18/25 4:00 PM ERNESTO PHOENIX During your visit today, we recorded the following information about you: Temperature Pulse Respiration Blood pressure 97 degrees 43/minute 16/minute 144/74 Weight Height 121.3 kg 1.829 m Ernesto Phoenix MD 03/18/2025 4:41 PM Signed PATIENT NAME: Skyler Le CLINIC NO.: [id number] ATTENDING PHYSICIAN: Ernesto Phoenix MD DATE OF SERVICE: March Dear Dr. Bing Arvizu [address] [facility] [address] thank you for referring Skyler Le for an opinion regarding Kidney cancer. CHIEF COMPLAINT: Kidney cancer HPI: Skyler Le is a 65 year old year old [...] unusual findings. Doing well - Works in [employer] and [employer]. - No smoking - No alcohol. - [...] 100 CO2 (mmol/L) Date Value 03/10/2025 19 (more content not included)... 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 Your Care Team Attending Physician - Nikolai ACOSTA MD Primary Care Physician - JESSICA DAVALOS CNP This Is Your Medications List ciprofloxacin (ciprofloxacin 500 mg Tab) dutasteride (dutasteride 0.5 mg Cap) Contact prescribing physician if questions or concerns acetaminophen allopurinol (allopurinol 300 mg Tab) docusate (Colace) fluoxetine (FLUoxetine 10 mg Cap) hydrochlorothiazide-lis inopril (hydrochlorothiazide-li sinopril 12.5 mg-20 mg Tab) metformin (metformin 1000 mg Tab) metoprolol (metoprolol succinate 100 mg ER Tab) spironolactone (spironolactone 25 mg Tab) Procedures Performed Cystoscopy (11/11/2024), Colonoscopy. Discharge Vitals Heart Rate (Peripheral) 50 Blood Pressure 150/82 Height 182 cm Height 72 in Weight 121 kg Weight 266.759 lb BMI 36.53 What to do next You Need to Schedule the Following Appointments Follow Up with KARLA JAMES, Nikolai Berry, URL When: Where: [address] [place] [address]- Medications What How Much When Instructions New ciprofloxacin (ciprofloxacin 500 mg Tab) Unchanged dutasteride (dutasteride 0.5 mg Cap) 1 Capsules By Mouth Every day Duration: 30 Days Unchanged acetaminophen Contact prescribing physician if questions or concerns Unchanged allopurinol (allopurinol 300 mg Tab) By Mouth Contact prescribing physician if questions or concerns Unchanged docusate (Colace) By Mouth 2 times a day Contact [...] Contact prescribing physician if questions or concerns Allergies No Known Medication Allergies Problems Ongoing - Any problem that you are currently receiving treatment for. Benign hypertension (high blood pressure) BPH with obstruction/lower urinary tract symptoms Constipation Cystitis cystica Depression Diabetes Diverticulum of urinary bladder Gout Gross hematuria Prostate cancer screening Renal cell carcinoma Renal mass Sarcomatoid renal cell carcinoma Patient Survey You may receive a survey via text or e-mail asking about your office visit. Please share your experience with us by completing your survey. We appreciate your feedback and thank you for choosing us for your care. Education Materials Kidney Cancer Kidney cancer is a type [...] other organs that help with making and (more content not included)... Normal [facility] Urology Office/Clinic Noteon 03-14-2025 Urology Office/Clinic Note Urology Office/Clinic Note Chief Complaint f/u HPI Staff 65 year old male patient here for 3 month follow up. Previous Dx: renal mass, BOH with obstruction/LUTS, cystitis cystica, constipation. Urology consult 01/03/25, Had US guided renal mass biopsy done 01/24/25 and path report is in system. Pt started dutasteride 0.5 mg qd last OV. S/P cysto 11/11/24 Patient denies any dysuria or gross hematuria. Denies any flank or abdomen pain. Has frequency, emptying completely, sometimes urgency. Patient still taking dutasteride. History of Present Illness Tests reviewed: reviewed nephrectomy path. I have reviewed the previous health record information and history for this patient from Dr. Acosta I have reviewed and verified the staff HPI to be accurate for this encounter. There have been no associated fever, chills, flank pain, or blood in the urine. Denies any urinary infections since last encounter. Review of Systems PHQ Score Initial [...] See HPI. Physical Exam Vitals & Measurements HR: 50(Peripheral) BP: 150/82 HT: 72 in HT: 182 cm WT: 121 kg WT: 266.759 lb BMI: 36.53 General Appearance: alert, no distress, well nourished, well developed male. Assessment/Plan 1. 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 Bladder wash neg for HG. CT AP w/wo con 12/14/24 [facility] - 6.9 x 6.3 x 6.0 cm heterogenous solid mass mid to Left IP, concerning for malignancy. Mildly prominent periaortic lymph nodes, largest 13 mm. Metastasis needs to be excluded. Extension into renal pelvis. BL renal cysts largest on R 6.2 cm. Punctate L renal stone. No hydro. Cre 1.53, GFR [address] Arvizu for renal mass. Was seen 01/03/25. S/p US guided L renal mass biopsy 01/24/[address] Yovany Estrada. Path ~RCC with tumor cell necrosis and sarcomatoid differentiation, ISUP grade 4. S/p L radical nephrectomy 02/27/25. Path ~metastatic RCC with sarcomatoid differentiation in 1 of 2 lymph nodes. Tumor invades perinephric fat, renal sinus, and pelvis. Negative margins. Metastatic RCC with sarcomatoid differentiation in one hilar lymph node. Pt states his L kidney was very large. Has a consultation with oncology due to path results. Denies post op complications however recently in the ER earlier this week, went to [facility]. Pt's potassium was 6.2 and Cr was 2.0. Pt states his potassium was rechecked and has decreased into normal range (per pt). -Proceed with onc consultation at [facility] -Will provide pt with orders for BUN, Cr, Potassium 2. 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 Extremely thick trabeculation. Diffuse diverticuli most of which were very deep. Started Flomax 0.4 mg bid. PVR 03/21/25 - 37 cc. IPSS 15 (17) Failed Flomax due to lightheadedness on qd and bid dosing. Started on Finasteride 5 mg qd at prior OV. Pt states he is voiding frequently. Pt states Finasteride is not as good as the Flomax however unable to tolerate Flomax. Pt has only been taking 5-FERMÍN for 3 months, has not received full affect. -Cont Finasteride -F/up in 6 mos 3. Cystitis cystica (N30.80: Other cystitis without hematuria) S/p Cysto 11/11/24 - Diffuse C.C lesions. Started Cipro 500 mg bid x 1 month with 1 refill. Pt completed course without complications. Follow-up With When Contact Information KARLA JAMES, Nikolai Berry, URL [address] [place] [address]- Additional Instructions: 6 mos Patient Education Kidney Cancer I, Yessenia Chandra, personally scribed for Dr. Acosta on 03/14/2025 08:43:59. . Documentation recorded by the scribe, Yessenia Chandra, accurately reflects the services(s) I performed and decisions made by me. Authenticated by Dr. Acosta on 03/14/2025 08:48:24. Problem List/Past Medical History Ongoing Benign hypertension (high blood pressure) BPH with obstruction/lower urinary tract symptoms Constipation Cystitis cystica Depression Diabetes Diverticulum of urinary bladder Gout Gross hematuria Prostate cancer screening Renal cell carcinoma Renal mass Sarcomatoid renal cell carcinoma Historical No qualifying data Procedure/Surgical History Cystoscopy (11/11/2024), Colonoscopy. Medications acetaminoph (more content not included)... [facility] Comment on above: Result Comment: Elec tronically Signed By: Nikolai ACOSTA MD\.br\Date and Time Signed: 03/14/25 08:48 EDT\.br\Electronically Co-Signed By: Yessenia Chandra\.br\Date and Time Co-Signed: 03/14/25 08:45 EDT\.br\Electronically Co-Signed By: Yessenia Chandra\.br\Date and Time Co-Signed: 03/14/25 08:47 EDT CNPNon 06-11-2025 DEEPN Telephone (FVUROL) SKYLER LE ([id number]) 1960 M Date Time Provider Department 03/12/25 BING ARVIZU FVUROL During your visit today, we recorded the following information about you: Darrell Justin RN 03/12/2025 1:35 PM Signed FLMA forms completed and faxed to [place]. Fax confirmation received. Completed forms placed at the front elevator operator to be scanned into patients chart. Darrell [...] Encounter Status:Closed by DARRELL JUSTIN on 03/12/25 [facility] 03-11-2025 CNPN Telephone (AVPRAD) SKYLER LE ([id number]) 1960 M Date Time Provider Department 03/11/25 AUREA RODRIGUEZ AVPRAD During your visit today, we recorded the [...] go to ED closer to home as [place] is almost an hour away. All questions [...] Encounter Status:Closed by AUREA RODRIGUEZ on 03/11/25 [facility] CNPN Telephone (FVPRAD) SKYLER LE ([id number]) 1960 Date Time Provider Department 03/11/25 TAMANNA ZHU FVPRAD During your visit today, we recorded the following information about you: Tamanna Zhu APRN.[employer] 03/11/2025 9:31 AM Signed Spoke with Mr. [...] Encounter Status:Closed by TAMANNA ZHU on 03/11/25 [facility] Renal function 2000 panelon 03-10-2025 Albumin [Mass/Vol] 3.9 g/dL Normal 3.9-4.9 [facility] Comment on above: Order Comment: Speci william Type: BLOOD SPECIMENOrdering Facility: [facility] Address: [address] [place] [address] Performed By: #### 2 4362-6 ####[facility] LABCLIA [id number] [place] [address] [place] Anion gap [Moles/Vol] 15 mmol/L Normal 8-15 [facility] Comment on above: Order Comment: Speci men Type: BLOOD SPECIMENOrdering Facility: [facility] Address: [address] [place] [address] Performed By: #### 2 4362-6 ####[facility] LABCLIA [id number] [place] [address] [place] Calcium [Mass/Vol] 9.8 mg/dL Normal 8.5-10.2 [facility] Comment on above: Order Comment: Ryliei men Type: BLOOD SPECIMENOrdering Facility: [facility] Address: [address] [place] [address] Performed By: #### 2 4362-6 ####[facility] LABCLIA [id number] [place] [id number] [place] Chloride [Moles/Vol] 100 mmol/L Normal 98-107 [facility] Comment on above: Order Comment: Speci men Type: BLOOD SPECIMENOrdering Facility: [facility] Address: [address] [place] [address] Performed By: #### 2 4362-6 ####[facility] LABCLIA [id number] [place] [address] [place] CO2 [Moles/Vol] 19 mmol/L Low 22-30 [facility] Comment on above: Order Comment: Speci men Type: BLOOD SPECIMENOrdering Facility: [facility] Address: [address] [place] [address] Performed By: #### 2 4362-6 ####[facility] LABCLIA [id number] [address] [place] Creatinine [Mass/Vol] 2.16 mg/dL High 0.73-1.22 [facility] Comment on above: Order Comment: Speci men Type: BLOOD SPECIMENOrdering Facility: [facility] Address: [address] [place] [address] Performed By: #### 2 4362-6 ####[facility] LABIA [id number] [address] STATES OF [facility] Creatinine and Glomerular filtration rate.predicted panel (S/P/Bld) 33 mL/min/1.73m??? Low >=60 [facility] Comment on above: Order Comment: Speci men Type: BLOOD SPECIMENOrdering Facility: [facility] Address: [address] [place] [address] Result Comment: Samantha mated Glomerular Filtration Rate [...] reflect actual GFR. Performed By: #### 2 4362-6 ####[facility] [id number] [place] [address] [place] Glucose [Mass/Vol] 94 mg/dL Normal 74-99 [facility] Comment on above: Order Comment: Speci men Type: BLOOD SPECIMENOrdering Facility: [facility] Address: [address] [place] [address] Result Comment: The [place] Diabetes Association (ADA) provides guidance for cutoff [...] Standards of Medical Care in Diabetes 2016, [place] [employer] Association. Diabetes Care. 2016.39(Suppl 1). Performed By: #### 2 4362-6 ####[facility] LABIA [id number] [place] [id number] [place] Phosphate [Mass/Vol] 3.7 mg/dL Normal 2.7-4.8 [facility] Comment on above: Order Comment: Ryliei men Type: BLOOD SPECIMENOrdering Facility: [facility] Address: [address] [place] [address] Performed By: #### 2 4362-6 ####[facility] [id number] [place] [address] [place] Potassium [Moles/Vol] 6.2 mmol/L Critically high 3.7-5.1 [facility] Comment on above: Order Comment: Ryliei men Type: BLOOD SPECIMENOrdering Facility: [facility] Address: [address] [place] [address] Performed By: #### 2 4362-6 ####[facility] [id number] [place] [address] [place] Sodium [Moles/Vol] 134 mmol/L Low 136-144 [facility] Comment on above: Order Comment: Speci men Type: BLOOD SPECIMENOrdering Facility: [facility] Address: [address] [place] [address] Performed By: #### 2 4362-6 ####[facility] [id number] [place] [address] [place] Urea nitrogen [Mass/Vol] 31 mg/dL High 9-24 [facility] Comment on above: Order Comment: Speci men Type: BLOOD SPECIMENOrdering Facility: [facility] Address: [address] [place] [address] Performed By: #### 2 4362-6 ####[facility] [id number] [place] [id number] [facility] OF [place] Sarai 03-05-2025 CARLY Telephone (TAYLOR) SKYLER LE ([id number]) 1960 M Date Time Provider Department 03/05/25 [...] Fully Assessed Reason for Visit: Patient Question [8290] Prescriptions as of 03/05/2025 - acetaminophen (TYLENOL) [...] Status:Closed by ANGELA LUIS on 03/05/25 [facility] Renal function 2000 panelon 03-04-2025 Albumin [Mass/Vol] 3.6 g/dL Low 3.9-4.9 [facility] Comment on above: Order Comment: Speci men Type: BLOOD SPECIMENOrdering Facility: [facility] Address: [address] [place] [address] Performed By: #### 2 4362-6 ####[facility] LABCLIA [id number] [place] [address] [place] Anion gap [Moles/Vol] 14 mmol/L Normal 8-15 [facility] Comment on above: Order Comment: Speci men Type: BLOOD SPECIMENOrdering Facility: [facility] Address: [address] [place] [address] Performed By: #### 2 4362-6 ####[facility] LABCLIA [id number] [place] [address] [place] Calcium [Mass/Vol] 9.4 mg/dL Normal 8.5-10.2 [facility] Comment on above: Order Comment: Speci men Type: BLOOD SPECIMENOrdering Facility: [facility] Address: [address] [place] [address] Performed By: #### 2 4362-6 ####[facility] LABCLIA [id number] [place] [address] [place] Chloride [Moles/Vol] 98 mmol/L Normal 98-107 [facility] Comment on above: Order Comment: Speci men Type: BLOOD SPECIMENOrdering Facility: [facility] Address: [address] [place] [address] Performed By: #### 2 4362-6 ####[facility] LABCLIA [id number] [place] [address] [place] CO2 [Moles/Vol] 21 mmol/L Low 22-30 [facility] Comment on above: Order Comment: Speci men Type: BLOOD SPECIMENOrdering Facility: [facility] Address: [address] [place], [place] [address] Performed By: #### 2 4362-6 ####[facility] LABCLIA [id number] [place] [address] [place] Creatinine [Mass/Vol] 2.08 mg/dL High 0.73-1.22 [facility] Comment on above: Order Comment: Miguelina thomas Type: BLOOD SPECIMENOrdering Facility: [facility] Address: [address] [place] [address] Performed By: #### 2 4362-6 ####[facility] LABCLIA [id number] [place] [address] [place] Creatinine and Glomerular filtration rate.predicted panel (S/P/Bld) 34 mL/min/1.73m??? Low >=60 [facility] Comment on above: Order Comment: Miguelina thomas Type: BLOOD SPECIMENOrdering Facility: [facility] Address: [address] [place] [address] Result Comment: Samantha mated Glomerular Filtration Rate [...] reflect actual GFR. Performed By: #### 2 4362-6 ####[facility] LABCLIA [id number] [place] [address] [place] Glucose [Mass/Vol] 115 mg/dL High 74-99 [facility] Comment on above: Order Comment: Miguelina thomas Type: BLOOD SPECIMENOrdering Facility: [facility] Address: [address] [place] [address] Result Comment: The [place] Diabetes Association (ADA) provides guidance for cutoff [...] Standards of Medical Care in Diabetes 2016, [place] Diabetes Association. Diabetes Care. 2016.39(Suppl 1). Performed By: #### 2 4362-6 ####[facility] LABCLIA [id number] [address] [address] [place] Phosphate [Mass/Vol] 3.1 mg/dL Normal 2.7-4.8 [facility] Comment on above: Order Comment: Speci men Type: BLOOD SPECIMENOrdering Facility: [facility] Address: [address] [place] [address] Performed By: #### 2 4362-6 ####[facility] LABCLIA [id number] [place] [address] [place] Potassium [Moles/Vol] 5.6 mmol/L High 3.7-5.1 [facility] Comment on above: Order Comment: Speci men Type: BLOOD SPECIMENOrdering Facility: [facility] Address: [address] [place] [address] Performed By: #### 2 4362-6 ####[facility] LABIA [id number] [address] [address] [place] Sodium [Moles/Vol] 133 mmol/L Low 136-144 [facility] Comment on above: Order Comment: Speci men Type: BLOOD SPECIMENOrdering Facility: [facility] Address: [address] [place], [place] [address] Performed By: #### 2 4362-6 ####[facility] LABCLIA [id number] [address] [address] [place] Urea nitrogen [Mass/Vol] 33 mg/dL High 9-24 [facility] Comment on above: Order Comment: Speci men Type: BLOOD SPECIMENOrdering Facility: [facility] Address: [address] [place], [place] [address] Performed By: #### 2 4362-6 ####[facility] LABCLIA [id number] [facility] [id number] [place], [place] [address] [place] ANES POSTPROC EVALon 025 ANES POSTPROC EVAL HNO ID: [id number] Author: BETH MASTERSON DO Service: Anesthesiology Author Type: Anesthesiologist Type: Anesthesia Postprocedure Evaluation Filed: 02/28/2025 07:22 Note Text: POST ANESTHESIA EVALUATION NOTE : 1960 Procedure Summary Date: 02/27/25 Room / Location: ORA / OR Anesthesia Start: 743 Anesthesia Stop: 1222 [...] February 28, 2025 TIME: 7:22 AM CSN: [id number] [facility] Basic metabolic 2000 panelon 02-28-2025 Anion gap [Moles/Vol] 15 mmol/L Normal 8-15 [facility] Comment on above: Order Comment: Speci men Type: BLOOD SPECIMENOrdering Facility: [facility] Address: [address] [place] [address] Performed By: #### 2 4321-2 ####[facility] [id number] [place] [address] [place] Calcium [Mass/Vol] 8.9 mg/dL Normal 8.5-10.2 [facility] Comment on above: Order Comment: Speci men Type: BLOOD SPECIMENOrdering Facility: [facility] Address: [address] [place] [address] Performed By: #### 2 4321-2 ####[facility]ORYCL[facility] [id number] [place] [id number] [place] Chloride [Moles/Vol] 99 mmol/L Normal 98-107 [facility] Comment on above: Order Comment: Speci men Type: BLOOD SPECIMENOrdering Facility: [facility] Address: [address] [place] [address] Performed By: #### 2 4321-2 ####[facility]ORY[facility] [id number] [place] [id number] [place] CO2 [Moles/Vol] 21 mmol/L Low 22-30 [facility] Comment on above: Order Comment: Speci men Type: BLOOD SPECIMENOrdering Facility: [facility] Address: [address] [place] [address] Performed By: #### 2 4321-2 ####[facility]ORY[facility] [id number] [place] [address] [place] Creatinine [Mass/Vol] 2.00 mg/dL High 0.73-1.22 [facility] Comment on above: Order Comment: Speci men Type: BLOOD SPECIMENOrdering Facility: [facility] Address: [address] [place] [address] Performed By: #### 2 4321-2 ####[facility]ORY[facility] [id number] [place] [id number] [place] Creatinine and Glomerular filtration rate.predicted panel (S/P/Bld) 36 mL/min/1.73m??? Low >=60 [facility] Comment on above: Order Comment: Speci men Type: BLOOD SPECIMENOrdering Facility: [facility] Address: [address] [place] [address] Result Comment: Samantha mated Glomerular Filtration Rate [...] actual GFR. Performed By: #### 2 4321-2 ####[facility] LABORATORYCLIA [id number] [place] [address] [place] Glucose [Mass/Vol] 131 mg/dL High 74-99 [facility] Comment on above: Order Comment: Miguelina thomas Type: BLOOD SPECIMENOrdering Facility: [facility] Address: [address] [place] [address] Result Comment: The [place] Diabetes Association (ADA) provides guidance for cutoff [...] Standards of Medical Care in Diabetes 2016, [place] Diabetes Association. Diabetes Care. 2016.39(Suppl 1). Performed By: #### 2 4321-2 ####[facility] LABORATORYCLIA [id number] [place] [id number] [place] Potassium [Moles/Vol] 4.6 mmol/L Normal 3.7-5.1 [facility] Comment on above: Order Comment: Miguelina thomas Type: BLOOD SPECIMENOrdering Facility: [facility] Address: [address] [place] [id number] Performed By: #### 2 4321-2 ####[facility] LABORATORYCLIA [id number] [place] [id number] [place] Sodium [Moles/Vol] 135 mmol/L Low 136-144 [facility] Comment on above: Order Comment: Speci men Type: BLOOD SPECIMENOrdering Facility: [facility] Address: [address] [place] [address] Performed By: #### 2 4321-2 ####[facility]ORYCL[facility] [id number] [place] [address] [place] Urea nitrogen [Mass/Vol] 28 mg/dL High 9-24 [facility] Comment on above: Order Comment: Speci men Type: BLOOD SPECIMENOrdering Facility: [facility] Address: [address] [place] [address] Performed By: #### 2 4321-2 ####[facility]ORYCLIA [id number] [place] [address] [place] Anion gap [Moles/Vol] 11 mmol/L Normal 8-15 [facility] Comment on above: Order Comment: Speci men Type: BLOOD SPECIMEN [facility] Address: [address] [place] [address] Performed By: #### 2 4321-2 #### [facility] CLIA [id number] [address] [place] [address] [place] Calcium [Mass/Vol] 8.3 mg/dL Low 8.5-10.2 [facility] Comment on above: Order Comment: Speci men Type: BLOOD SPECIMEN [facility] Address: [address] [place] [address] Performed By: #### 2 4321-2 #### [facility] CLIA [id number] [place] [address] [place] Chloride [Moles/Vol] 101 mmol/L Normal 98-107 [facility] Comment on above: Order Comment: Speci men Type: BLOOD SPECIMEN [facility] Address: [address] [place] [address] Performed By: #### 2 4321-2 #### [facility] CLIA [id number] [place] [address] [place] CO2 [Moles/Vol] 22 mmol/L Normal 22-30 [facility] Comment on above: Order Comment: Miguelina thomas Type: BLOOD SPECIMEN [facility] Address: [address] [place] [address] Performed By: #### 2 4321-2 #### [facility] CLIA [id number] [place] [address] [place] Creatinine [Mass/Vol] 1.99 mg/dL High 0.73-1.22 [facility] Comment on above: Order Comment: Miguelina thomas Type: BLOOD SPECIMEN [facility] Address: [address] [place] [address] Performed By: #### 2 4321-2 #### [facility] CLIA [id number] [address] [place] [address] [place] Creatinine and Glomerular filtration rate.predicted panel (S/P/Bld) 36 mL/min/1.73m??? Low >=60 [facility] Comment on above: Order Comment: Miguelina william Type: BLOOD SPECIMEN [facility] Address: [address] [place] [address] Result Comment: Samantha mated Glomerular Filtration Rate [...] GFR. Performed By: #### 2 4321-2 #### [facility] CLIA [id number] [address] [place] [address] [place] Glucose [Mass/Vol] 142 mg/dL High 74-99 [facility] Comment on above: Order Comment: Miguelina william Type: BLOOD SPECIMEN [facility] Address: [address] [place] [address] Result Comment: The [place] Diabetes Association (ADA) provides guidance for cutoff [...] Standards of Medical Care in Diabetes 2016, [place] Diabetes Association. Diabetes Care. 2016.39(Suppl 1). Performed By: #### 2 4321-2 #### [facility] CLIA [id number] [address] [place] [address] [place] Potassium [Moles/Vol] 5.8 mmol/L High 3.7-5.1 [facility] Comment on above: Order Comment: Ryliei william Type: BLOOD SPECIMEN [facility] Address: [address] [place] [address] Performed By: #### 2 4321-2 #### [facility] CLIA [id number] [address] [place] [address] [place] Sodium [Moles/Vol] 134 mmol/L Low 136-144 [facility] Comment on above: Order Comment: Miguelina thomas Type: BLOOD SPECIMEN [facility] Address: [address] [place] [address] Performed By: #### 2 4321-2 #### [facility] CLIA [id number] [address] [place] [address] [place] Urea nitrogen [Mass/Vol] 29 mg/dL High 9-24 [facility] Comment on above: Order Comment: Speci men Type: BLOOD SPECIMEN [facility] Address: [address] [place] [address] Performed By: #### 2 4321-2 #### [facility] CLIA [id number] [address] [place] [address] [place] CBC panel Auto (Bld)on 02-28 Erythrocyte distribution width (RBC) [Ratio] 16.5 % High 11.5-15.0 [facility] Comment on above: Order Comment: Speci men Type: BLOOD SPECIMEN [facility] Address: [address] [place] [address] Performed By: #### 5 8410-2 #### [facility] CLIA [id number] [address] [place] [address] Hematocrit (Bld) [Volume fraction] 30.1 % Low 39.0-51.0 [facility] Comment on above: Order Comment: Speci men Type: BLOOD SPECIMEN [facility] Address: [address] [place] [address] Performed By: #### 5 8410-2 #### [facility] CLIA [id number] [address] [place] [address] [place] Hemoglobin (Bld) [Mass/Vol] 9.2 g/dL Low 13.0-17.0 [facility] Comment on above: Order Comment: Speci men Type: BLOOD SPECIMEN [facility]: [facility] Address: [address] [place] [address] Performed By: #### 5 8410-2 #### [facility] CLIA [id number] [address] [place] [address] [place] MCH (RBC) [Entitic mass] 24.0 pg Low 26.0-34.0 [facility] Comment on above: Order Comment: Speci men Type: BLOOD SPECIMEN [facility]: [facility] Address: [address] [place] [address] Performed By: #### 5 8410-2 #### [facility] CLIA [id number] [address] [place] [address] [place] MCHC (RBC) [Mass/Vol] 30.6 g/dL Normal 30.5-36.0 [facility] Comment on above: Order Comment: Speci men Type: BLOOD SPECIMEN [facility]: [facility] Address: [address] [place] [address] Performed By: #### 5 8410-2 #### [facility] CLIA [id number] [address] [place] [address] [place] MCV (RBC) [Entitic vol] 78.4 fL Low 80.0-100.0 [facility] Comment on above: Order Comment: Speci men Type: BLOOD SPECIMEN [facility] [facility] Address: [address] [place] [address] Performed By: #### 5 8410-2 #### [facility] CLIA [id number] [address] [place] [address] [place] Nucleated RBC (Bld) [#/Vol] 10*3/uL Normal <0.01 [facility] Comment on above: Order Comment: Speci men Type: BLOOD SPECIMEN Ordering Facility: [facility] Address: [address] [place] [address] Performed By: #### 5 8410-2 #### [facility] CLIA [id number] [address] [place] [address] [place] Platelet mean volume (Bld) [Entitic vol] 9.1 fL Normal 9.0-12.7 [facility] Comment on above: Order Comment: Speci men Type: BLOOD SPECIMEN Ordering Facility: [facility] Address: [address] [place] [address] Performed By: #### 5 8410-2 #### [facility] CLIA [id number] [address] [place] [address] [place] Platelets (Bld) [#/Vol] 243 10*3/uL Normal 150-400 [facility] Comment on above: Order Comment: Speci men Type: BLOOD SPECIMEN Ordering Facility: [facility] Address: [address] [place] [address] Performed By: #### 5 8410-2 #### [facility] CLIA [id number] [address] [place] [address] [place] RBC (Bld) [#/Vol] 3.84 10*6/uL Low 4.20-6.00 [facility] Comment on above: Order Comment: Speci men Type: BLOOD SPECIMEN Ordering Facility: [facility] Address: [address] [place] [address] Performed By: #### 5 8410-2 #### [facility] CLIA [id number] [address] [place] [address] [place] WBC (Bld) [#/Vol] 12.56 10*3/uL High 3.70-11.00 [facility] Comment on above: Order Comment: Speci men Type: BLOOD SPECIMEN Ordering Facility: [facility] Address: [address] [place] [address] Performed By: #### 5 8410-2 #### [facility] CLIA [id number] [place], [place] [address] [place] NURSING PROGon 02-28-2025 NURSING PROG HNO ID: [id number] Author: ANABEL BARNETT, RN Service: Nursing Author Type: Registered Nurse [...] hold or give metoprolol. Waiting for orders [facility] THERAPY NTon 02-28-2025 THERAPY NT HNO ID: [id number] Author: CAROL ARITA, NINOSKA Service: Respiratory Therapy Author Type: Registered Resp Therapist Type: Therapy (PT/OT/Speech/Resp) Filed: 02/28/2025 03:56 Note Text: RESPIRATORY THERAPY PROGRESS NOTE SERVICE DATE: 02/28/2025 SERVICE TIME: 0000 Patient has home CPAP present, purple team paged for CPAP orders. SIGNATURE: Carol Arita RRT PATIENT NAME: Skyler Le DATE: February 28, 2025 TIME: 3:54 AM PAGER/CONTACT #: [facility] ANES PRE-OPon 02-27-2025 ANES PRE-OP HNO ID: [id number] Author: BETH MASTERSON DO Service: Anesthesiology Author [...] and consent discussed: yes. Patient / Responsible Constitution Party agrees to proceed: yes Patient / [...] ?F) 02/27/25 0647 SpO2 98 % 02/27/25 06 Facility-Administered Medications as of 02/27/2025 Medication Dose [...] February 27, 2025 TIME: 7:12 AM CSN: [id number] Normal [facility] ARTERIAL BLOOD GASESon 02-27 Base deficit (BldA) [Moles/Vol] -3 mmol/L Low -2-0 [facility] Comment on above: Order Comment: Miguelina thomas Type: ARTERIAL BLOOD SPECIMEN Ordering Facility: [facility] Address: [address] [place] [address] Performed By: #### A LLBG #### [facility] CLIA [id number] [address] [place] [address] [place] Calcium.ionized (Bld) [Mass/Vol] 1.24 mmol/L Normal 1.08-1.30 [facility] Comment on above: Order Comment: Miguelina thomas Type: ARTERIAL BLOOD SPECIMEN Ordering Facility: [facility] Address: [address] [place] [address] Performed By: #### A LLBG #### [facility] CLIA [id number] [address] [place] [address] [place] Calcium.ionized adjusted to pH 7.4 (BldA) [Moles/Vol] 1.20 mmol/L Normal 1.08-1.30 [facility] Comment on above: Order Comment: Speci men Type: ARTERIAL BLOOD SPECIMEN Ordering Facility: [facility] Address: [address] [place] [address] Performed By: #### A LLBG #### [facility] CLIA [id number] [address] [place] [address] [place] Carboxyhemoglobin (BldA) [Mass fraction] 1.4 % Normal 0.0-2.0 [facility] Comment on above: Order Comment: Speci men Type: ARTERIAL BLOOD SPECIMEN Ordering Facility: [facility] Address: [address] [place] [address] Result Comment: Carb oxyhemoglobin Reference Range for Smokers: 2.0-8.0% Performed By: #### A LLBG #### [facility] CLIA [id number] [address] [place] [address] [place] Chloride [Moles/Vol] 103 mmol/L Normal 97-105 [facility] Comment on above: Order Comment: Speci men Type: ARTERIAL BLOOD SPECIMEN Ordering Facility: [facility] Address: [address] [place] [address] Performed By: #### A LLBG #### [facility] CLIA [id number] [address] [place] [address] [place] CO2 (Bld) [Partial pressure] 41 mm Hg Normal 36-46 [facility] Comment on above: Order Comment: Speci men Type: ARTERIAL BLOOD SPECIMEN Ordering Facility: [facility] Address: [address] [place] [address] Performed By: #### A LLBG #### [facility] CLIA [id number] [address] [place] [address] [place] CO2 adjusted to patient's actual temperature (Bld) [Partial pressure] Normal [facility] Comment on above: Order Comment: Speci men Type: ARTERIAL BLOOD SPECIMEN Ordering Facility: [facility] Address: [address] [place] [address] Performed By: #### A LLBG #### [facility] CLIA [id number] [address] [place] [address] [place] Glucose [Mass/Vol] 190 mg/dL High 60-105 [facility] Comment on above: Order Comment: Speci men Type: ARTERIAL BLOOD SPECIMEN Ordering Facility: [facility] Address: [address] [place] [address] Performed By: #### A LLBG #### [facility] CLIA [id number] [address] [place] [address] [place] HCO3 (Bld) [Moles/Vol] 22 mmol/L Normal 22-26 [facility] Comment on above: Order Comment: Speci men Type: ARTERIAL BLOOD SPECIMEN Ordering Facility: [facility] Address: [address] [place] [address] Performed By: #### A LLBG #### [facility] CLIA [id number] [address] [place] [address] [place] Hematocrit (Bld) [Volume fraction] 33.9 % Low 39.0-51.0 [facility] Comment on above: Order Comment: Speci men Type: ARTERIAL BLOOD SPECIMEN Ordering Facility: [facility] Address: [address] [place] [address] Performed By: #### A LLBG #### [facility] CLIA [id number] [address] [place] [address] [place] Hemoglobin (Bld) [Mass/Vol] 11.0 g/dL Low 13.0-17.0 [facility] Comment on above: Order Comment: Speci men Type: ARTERIAL BLOOD SPECIMEN Ordering Facility: [facility] Address: [address] [place] [address] Performed By: #### A LLBG #### [facility] CLIA [id number] [address] [place] [address] [place] Lactate [Moles/Vol] 2.7 mmol/L High 0.5-2.2 [facility] Comment on above: Order Comment: Speci men Type: ARTERIAL BLOOD SPECIMEN Ordering Facility: [facility] Address: [address] [place] [address] Performed By: #### A LLBG #### [facility] CLIA [id number] [address] [place] [address] [place] Methemoglobin (Bld) [Mass fraction] 0.8 % Normal 0.0-1.5 [facility] Comment on above: Order Comment: Speci men Type: ARTERIAL BLOOD SPECIMEN Ordering Facility: [facility] Address: [address] [place] [address] Performed By: #### A LLBG #### [facility] CLIA [id number] [address] [place] [address] [place] Oxygen (Bld) [Partial pressure] 179 mm Hg High 85-95 [facility] Comment on above: Order Comment: Speci men Type: ARTERIAL BLOOD SPECIMEN Ordering Facility: [facility] Address: [address] [place] [address] Performed By: #### A LLBG #### [facility] IA [id number] [address] [place] [address] [place] Oxygen adjusted to patient's actual temperature (Bld) [Partial pressure] Normal [facility] Comment on above: Order Comment: Speci men Type: ARTERIAL BLOOD SPECIMEN Ordering Facility: [facility] Address: [address] [place] [address] Performed By: #### A LLBG #### [facility] IA [id number] [address] [place] [address] [place] Oxyhemoglobin (BldA) [Mass fraction] 97 % Normal 95-98 [facility] Comment on above: Order Comment: Speci men Type: ARTERIAL BLOOD SPECIMEN Ordering Facility: [facility] Address: [address] [place] [address] Performed By: #### A LLBG #### [facility] CLIA [id number] [address] [place] [address] [place] pH (Bld) 7.35 [pH] Normal 7.35-7.45 [facility] Comment on above: Order Comment: Speci men Type: ARTERIAL BLOOD SPECIMEN Ordering Facility: [facility] Address: [address] [place] [address] Performed By: #### A LLBG #### [facility] CLIA [id number] [address] [place] [address] [place] pH adjusted to patient's actual temperature (Bld) Normal [facility] Comment on above: Order Comment: Speci men Type: ARTERIAL BLOOD SPECIMEN Ordering Facility: [facility] Address: [address] [place] [address] Performed By: #### A LLBG #### [facility] CLIA [id number] [address] [place] [address] [place] Potassium [Moles/Vol] 5.5 mmol/L High 3.5-5.0 [facility] Comment on above: Order Comment: Speci men Type: ARTERIAL BLOOD SPECIMEN Ordering Facility: [facility] Address: [address] [place] [address] Performed By: #### A LLBG #### [facility] CLIA [id number] [address] [place] [address] [place] Sodium [Moles/Vol] 135 mmol/L Low 136-144 [facility] Comment on above: Order Comment: Speci men Type: ARTERIAL BLOOD SPECIMEN Ordering Facility: [facility] Address: [address] [place] [address] Performed By: #### A LLBG #### [facility] CLIA [id number] [address] [place] [address] [place] Base deficit (BldA) [Moles/Vol] -3 mmol/L Low -2-0 [facility] Comment on above: Order Comment: Speci men Type: ARTERIAL BLOOD SPECIMEN Ordering Facility: [facility] Address: [address] [place] [address] Performed By: #### A LLBG #### [facility] CLIA [id number] [address] [place] [address] [place] Calcium.ionized (Bld) [Mass/Vol] 1.24 mmol/L Normal 1.08-1.30 [facility] Comment on above: Order Comment: Speci men Type: ARTERIAL BLOOD SPECIMEN Ordering Facility: [facility] Address: [address] [place] [address] Performed By: #### A LLBG #### [facility] CLIA [id number] [address] [place] [address] [place] Calcium.ionized adjusted to pH 7.4 (BldA) [Moles/Vol] 1.20 mmol/L Normal 1.08-1.30 [facility] Comment on above: Order Comment: Speci men Type: ARTERIAL BLOOD SPECIMEN Ordering Facility: [facility] Address: [address] [place] [address] Performed By: #### A LLBG #### [facility] CLIA [id number] [address] [place] [address] [place] Carboxyhemoglobin (BldA) [Mass fraction] 0.8 % Normal 0.0-2.0 [facility] Comment on above: Order Comment: Speci men Type: ARTERIAL BLOOD SPECIMEN Ordering Facility: [facility] Address: [address] [place] [address] Result Comment: Carb oxyhemoglobin Reference Range for Smokers: 2.0-8.0% Performed By: #### A LLBG #### [facility] IA [id number] [address] [place] [address] [place] Chloride [Moles/Vol] 102 mmol/L Normal 97-105 [facility] Comment on above: Order Comment: Speci men Type: ARTERIAL BLOOD SPECIMEN Ordering Facility: [facility] Address: [address] [place] [address] Performed By: #### A LLBG #### [facility] CLIA [id number] [address] [place] [address] [place] CO2 (Bld) [Partial pressure] 43 mm Hg Normal 36-46 [facility] Comment on above: Order Comment: Speci men Type: ARTERIAL BLOOD SPECIMEN Ordering Facility: [facility] Address: [address] [place] [address] Performed By: #### A LLBG #### [facility] CLIA [id number] [address] [place] [address] [place] CO2 adjusted to patient's actual temperature (Bld) [Partial pressure] Normal [facility] Comment on above: Order Comment: Speci men Type: ARTERIAL BLOOD SPECIMEN Ordering Facility: [facility] Address: [address] [place] [address] Performed By: #### A LLBG #### [facility] CLIA [id number] [address] [place] [address] [place] Glucose [Mass/Vol] 214 mg/dL High 60-105 [facility] Comment on above: Order Comment: Speci men Type: ARTERIAL BLOOD SPECIMEN Ordering Facility: [facility] Address: [address] [place] [address] Performed By: #### A LLBG #### [facility] CLIA [id number] [address] [place] [address] [place] HCO3 (Bld) [Moles/Vol] 22 mmol/L Normal 22-26 [facility] Comment on above: Order Comment: Speci men Type: ARTERIAL BLOOD SPECIMEN Ordering Facility: [facility] Address: [address] [place] [address] Performed By: #### A LLBG #### [facility] CLIA [id number] [address] [place] [address] [place] Hematocrit (Bld) [Volume fraction] 33.9 % Low 39.0-51.0 [facility] Comment on above: Order Comment: Speci men Type: ARTERIAL BLOOD SPECIMEN Ordering Facility: [facility] Address: [address] [place] [address] Performed By: #### A LLBG #### [facility] CLIA [id number] [address] [place] [address] [place] Hemoglobin (Bld) [Mass/Vol] 11.0 g/dL Low 13.0-17.0 [facility] Comment on above: Order Comment: Speci men Type: ARTERIAL BLOOD SPECIMEN Ordering Facility: [facility] Address: [address] [place] [address] Performed By: #### A LLBG #### [facility] CLIA [id number] [address] [place] [address] [place] Lactate [Moles/Vol] 2.2 mmol/L Normal 0.5-2.2 [facility] Comment on above: Order Comment: Speci men Type: ARTERIAL BLOOD SPECIMEN Ordering Facility: [facility] Address: [address] [place] [address] Performed By: #### A LLBG #### [facility] CLIA [id number] [address] [place] [address] [place] Methemoglobin (Bld) [Mass fraction] 0.9 % Normal 0.0-1.5 [facility] Comment on above: Order Comment: Speci men Type: ARTERIAL BLOOD SPECIMEN Ordering Facility: [facility] Address: [address] [place] [address] Performed By: #### A LLBG #### [facility] CLIA [id number] [address] [place] [address] [place] Oxygen (Bld) [Partial pressure] 169 mm Hg High 85-95 [facility] Comment on above: Order Comment: Speci men Type: ARTERIAL BLOOD SPECIMEN Ordering Facility: [facility] Address: [address] [place] [address] Performed By: #### A LLBG #### [facility] IA [id number] [address] [place] [address] [place] Oxygen adjusted to patient's actual temperature (Bld) [Partial pressure] Normal [facility] Comment on above: Order Comment: Speci men Type: ARTERIAL BLOOD SPECIMEN Ordering Facility: [facility] Address: [address] [place] [address] Performed By: #### A LLBG #### [facility] CLIA [id number] [address] [place] [address] [place] Oxyhemoglobin (BldA) [Mass fraction] 97 % Normal 95-98 [facility] Comment on above: Order Comment: Speci men Type: ARTERIAL BLOOD SPECIMEN Ordering Facility: [facility] Address: [address] [place] [address] Performed By: #### A LLBG #### [facility] IA [id number] [address] [place] [address] [place] pH (Bld) 7.34 [pH] Low 7.35-7.45 [facility] Comment on above: Order Comment: Speci men Type: ARTERIAL BLOOD SPECIMEN Ordering Facility: [facility] Address: [address] [place] [address] Performed By: #### A LLBG #### [facility] CLIA [id number] [address] [place] [address] [place] pH adjusted to patient's actual temperature (Bld) Normal [facility] Comment on above: Order Comment: Speci men Type: ARTERIAL BLOOD SPECIMEN Ordering Facility: [facility] Address: [address] [place] [address] Performed By: #### A LLBG #### [facility] CLIA [id number] [address] [place] [address] [place] Potassium [Moles/Vol] 5.9 mmol/L High 3.5-5.0 [facility] Comment on above: Order Comment: Speci men Type: ARTERIAL BLOOD SPECIMEN Ordering Facility: [facility] Address: [address] [place] [address] Performed By: #### A LLBG #### [facility] IA [id number] [address] [place] [address] [place] Sodium [Moles/Vol] 135 mmol/L Low 136-144 [facility] Comment on above: Order Comment: Speci men Type: ARTERIAL BLOOD SPECIMEN Ordering Facility: [facility] Address: [address] [place] [address] Performed By: #### A LLBG #### [facility] CLIA [id number] [address] [place] [address] [place] Base deficit (BldA) [Moles/Vol] -2 mmol/L Normal -2-0 [facility] Comment on above: Order Comment: Speci men Type: ARTERIAL BLOOD SPECIMEN Ordering Facility: [facility] Address: [address] [place] [address] Performed By: #### A LLBG #### [facility] CLIA [id number] [address] [place] [address] [place] Calcium.ionized (Bld) [Mass/Vol] 1.24 mmol/L Normal 1.08-1.30 [facility] Comment on above: Order Comment: Speci men Type: ARTERIAL BLOOD SPECIMEN Ordering Facility: [facility] Address: [address] [place] [address] Performed By: #### A LLBG #### [facility] CLIA [id number] [address] [place] [address] [place] Calcium.ionized adjusted to pH 7.4 (BldA) [Moles/Vol] 1.21 mmol/L Normal 1.08-1.30 [facility] Comment on above: Order Comment: Speci men Type: ARTERIAL BLOOD SPECIMEN Ordering Facility: [facility] Address: [address] [place] [address] Performed By: #### A LLBG #### [facility] CLIA [id number] [address] [place] [address] [place] Carboxyhemoglobin (BldA) [Mass fraction] 1.5 % Normal 0.0-2.0 [facility] Comment on above: Order Comment: Speci men Type: ARTERIAL BLOOD SPECIMEN Ordering Facility: [facility] Address: [address] [place] [address] Result Comment: Carb oxyhemoglobin Reference Range for Smokers: 2.0-8.0% Performed By: #### A LLBG #### [facility] CLIA [id number] [address] [place] [address] [place] Chloride [Moles/Vol] 103 mmol/L Normal 97-105 [facility] Comment on above: Order Comment: Speci men Type: ARTERIAL BLOOD SPECIMEN Ordering Facility: [facility] Address: [address] [place] [address] Performed By: #### A LLBG #### [facility] CLIA [id number] [address] [place] [address] [place] CO2 (Bld) [Partial pressure] 43 mm Hg Normal 36-46 [facility] Comment on above: Order Comment: Speci men Type: ARTERIAL BLOOD SPECIMEN Ordering Facility: [facility] Address: [address] [place] [address] Performed By: #### A LLBG #### [facility] CLIA [id number] [address] [place] [address] [place] CO2 adjusted to patient's actual temperature (Bld) [Partial pressure] Normal [facility] Comment on above: Order Comment: Speci men Type: ARTERIAL BLOOD SPECIMEN Ordering Facility: [facility] Address: [address] [place] [address] Performed By: #### A LLBG #### [facility] CLIA [id number] [address] [place] [address] [place] Glucose [Mass/Vol] 183 mg/dL High 60-105 [facility] Comment on above: Order Comment: Speci men Type: ARTERIAL BLOOD SPECIMEN Ordering Facility: [facility] Address: [address] [place] [address] Performed By: #### A LLBG #### [facility] CLIA [id number] [address] [place] [address] [place] HCO3 (Bld) [Moles/Vol] 23 mmol/L Normal 22-26 [facility] Comment on above: Order Comment: Speci men Type: ARTERIAL BLOOD SPECIMEN Ordering Facility: [facility] Address: [address] [place] [address] Performed By: #### A LLBG #### [facility] CLIA [id number] [address] [place] [address] [place] Hematocrit (Bld) [Volume fraction] 32.5 % Low 39.0-51.0 [facility] Comment on above: Order Comment: Speci men Type: ARTERIAL BLOOD SPECIMEN Ordering Facility: [facility] Address: [address] [place] [address] Performed By: #### A LLBG #### [facility] CLIA [id number] [address] [place] [address] [place] Hemoglobin (Bld) [Mass/Vol] 10.5 g/dL Low 13.0-17.0 [facility] Comment on above: Order Comment: Speci men Type: ARTERIAL BLOOD SPECIMEN Ordering Facility: [facility] Address: [address] [place] [address] Performed By: #### A LLBG #### [facility] CLIA [id number] [address] [place] [address] [place] Lactate [Moles/Vol] 1.8 mmol/L Normal 0.5-2.2 [facility] Comment on above: Order Comment: Speci men Type: ARTERIAL BLOOD SPECIMEN Ordering Facility: [facility] Address: [address] [place] [address] Performed By: #### A LLBG #### [facility] CLIA [id number] [address] [place] [address] [place] Methemoglobin (Bld) [Mass fraction] 0.6 % Normal 0.0-1.5 [facility] Comment on above: Order Comment: Speci men Type: ARTERIAL BLOOD SPECIMEN Ordering Facility: [facility] Address: [address] [place] [address] Performed By: #### A LLBG #### [facility] CLIA [id number] [address] [place] [address] [place] Oxygen (Bld) [Partial pressure] 168 mm Hg High 85-95 [facility] Comment on above: Order Comment: Speci men Type: ARTERIAL BLOOD SPECIMEN Ordering Facility: [facility] Address: [address] [place] [address] Performed By: #### A LLBG #### [facility] CLIA [id number] [address] [place] [address] [place] Oxygen adjusted to patient's actual temperature (Bld) [Partial pressure] Normal [facility] Comment on above: Order Comment: Speci men Type: ARTERIAL BLOOD SPECIMEN Ordering Facility: [facility] Address: [address] [place] [address] Performed By: #### A LLBG #### [facility] [facility] CLIA [id number] [address] [place] [address] [place] Oxyhemoglobin (BldA) [Mass fraction] 97 % Normal 95-98 [facility] Comment on above: Order Comment: Speci men Type: ARTERIAL BLOOD SPECIMEN Ordering Facility: [facility] Address: [address] [place] [address] Performed By: #### A LLBG #### [facility] CLIA [id number] [address] [place] [address] [place] pH (Bld) 7.35 [pH] Normal 7.35-7.45 [facility] Comment on above: Order Comment: Speci men Type: ARTERIAL BLOOD SPECIMEN Ordering Facility: [facility] Address: [address] [place] [address] Performed By: #### A LLBG #### [facility] CLIA [id number] [address] [place] [address] [place] pH adjusted to patient's actual temperature (Bld) Normal [facility] Comment on above: Order Comment: Speci men Type: ARTERIAL BLOOD SPECIMEN Ordering Facility: [facility] Address: [address] [place] [address] Performed By: #### A LLBG #### [facility] CLIA [id number] [address] [place] [address] [place] Potassium [Moles/Vol] 5.9 mmol/L High 3.5-5.0 [facility] Comment on above: Order Comment: Speci men Type: ARTERIAL BLOOD SPECIMEN Ordering Facility: [facility] Address: [address] [place] [address] Performed By: #### A LLBG #### [facility] CLIA [id number] [address] [place] [address] [place] Sodium [Moles/Vol] 135 mmol/L Low 136-144 [facility] Comment on above: Order Comment: Speci men Type: ARTERIAL BLOOD SPECIMEN Ordering Facility: [facility] Address: [address] [place] [address] Performed By: #### A LLBG #### [facility] CLIA [id number] [address] [place] [address] [place] Basic metabolic 2000 panelon 02-27-2025 Anion gap [Moles/Vol] 11 mmol/L Normal 8-15 [facility] Comment on above: Order Comment: Speci men Type: BLOOD SPECIMEN Ordering Facility: [facility] Address: [address] [place] [address] Performed By: #### 2 4321-2 #### [facility] CLIA [id number] [address] [place] [address] [place] Calcium [Mass/Vol] 8.3 mg/dL Low 8.5-10.2 [facility] Comment on above: Order Comment: Speci men Type: BLOOD SPECIMEN Ordering Facility: [facility] Address: [address] [place] [address] Performed By: #### 2 4321-2 #### [facility] CLIA [id number] [address] [place] [address] [place] Chloride [Moles/Vol] 102 mmol/L Normal 98-107 [facility] Comment on above: Order Comment: Speci men Type: BLOOD SPECIMEN Ordering Facility: [facility] Address: [address] [place] [address] Performed By: #### 2 4321-2 #### [facility] CLIA [id number] [address] [place] [address] [place] CO2 [Moles/Vol] 22 mmol/L Normal 22-30 [facility] Comment on above: Order Comment: Speci men Type: BLOOD SPECIMEN Ordering Facility: [facility] Address: [address] [place] [address] Performed By: #### 2 4321-2 #### [facility] CLIA [id number] [address] [place] [address] [place] Creatinine [Mass/Vol] 1.52 mg/dL High 0.73-1.22 [facility] Comment on above: Order Comment: Speci men Type: BLOOD SPECIMEN Ordering Facility: [facility] Address: [address] [place] [address] Performed By: #### 2 4321-2 #### [facility] CLIA [id number] [address] [place] [address] [place] Creatinine and Glomerular filtration rate.predicted panel (S/P/Bld) 50 mL/min/1.73m??? Low >=60 [facility] Comment on above: Order Comment: Speci men Type: BLOOD SPECIMEN Ordering Facility: [facility] Address: [address] [place] [address] Result Comment: Samantha mated Glomerular Filtration Rate [...] GFR. Performed By: #### 2 4321-2 #### [facility] CLIA [id number] [address] [place] [address] [place] Glucose [Mass/Vol] 178 mg/dL High 74-99 [facility] Comment on above: Order Comment: Miguelina thomas Type: BLOOD SPECIMEN Ordering Facility: [facility] Address: [address] [place] [address] Result Comment: The [place] Diabetes Association (ADA) provides guidance for cutoff [...] Standards of Medical Care in Diabetes 2016, [place] Diabetes Association. Diabetes Care. 2016.39(Suppl 1). Performed By: #### 2 4321-2 #### [facility] CLIA [id number] [place] [address] [place] Potassium [Moles/Vol] 5.4 mmol/L High 3.7-5.1 [facility] Comment on above: Order Comment: Miguelina thomas Type: BLOOD SPECIMEN Ordering Facility: [facility] Address: [address] [place] [address] Performed By: #### 2 4321-2 #### [facility] CLIA [id number] [address] [place] [address] [place] Sodium [Moles/Vol] 135 mmol/L Low 136-144 [facility] Comment on above: Order Comment: Miguelina thomas Type: BLOOD SPECIMEN Ordering Facility: [facility] Address: [address] [place] [address] Performed By: #### 2 4321-2 #### [facility] CLIA [id number] [address] [place] [address] [place] Urea nitrogen [Mass/Vol] 27 mg/dL High 9-24 [facility] Comment on above: Order Comment: Speci men Type: BLOOD SPECIMEN Ordering Facility: [facility] Address: [address] [place] [address] Performed By: #### 2 4321-2 #### [facility] CLIA [id number] [address] [place] [address] [place] CBC panel Auto (Bld)on 02-27 Erythrocyte distribution width (RBC) [Ratio] 16.7 % High 11.5-15.0 [facility] Comment on above: Order Comment: Speci men Type: BLOOD SPECIMEN Ordering Facility: [facility] Address: [address] [place] [address] Performed By: #### 5 8410-2 #### [facility] CLIA [id number] [address] [place] [address] [place] Hematocrit (Bld) [Volume fraction] 32.1 % Low 39.0-51.0 [facility] Comment on above: Order Comment: Speci men Type: BLOOD SPECIMEN Ordering Facility: [facility] Address: [address] [place] [address] Performed By: #### 5 8410-2 #### [facility] CLIA [id number] [address] [place] [address] [place] Hemoglobin (Bld) [Mass/Vol] 10.3 g/dL Low 13.0-17.0 [facility] Comment on above: Order Comment: Speci men Type: BLOOD SPECIMEN Ordering Facility: [facility] Address: [address] [place] [address] Performed By: #### 5 8410-2 #### [facility] CLIA [id number] [address] [place] [address] [place] MCH (RBC) [Entitic mass] 24.7 pg Low 26.0-34.0 [facility] Comment on above: Order Comment: Speci men Type: BLOOD SPECIMEN Ordering Facility: [facility] Address: [address] [place] [address] Performed By: #### 5 8410-2 #### [facility] CLIA [id number] [address] [place] [address] [place] MCHC (RBC) [Mass/Vol] 32.1 g/dL Normal 30.5-36.0 [facility] Comment on above: Order Comment: Speci men Type: BLOOD SPECIMEN Ordering Facility: [facility] Address: [address] [place] [address] Performed By: #### 5 8410-2 #### [facility] CLIA [id number] [address] [place] [address] [place] MCV (RBC) [Entitic vol] 77.0 fL Low 80.0-100.0 [facility] Comment on above: Order Comment: Speci men Type: BLOOD SPECIMEN Ordering Facility: [facility] Address: [address] [place] [address] Performed By: #### 5 8410-2 #### [facility] CLIA [id number] [address] [place] [address] [place] Nucleated RBC (Bld) [#/Vol] 10*3/uL Normal <0.01 [facility] Comment on above: Order Comment: Speci men Type: BLOOD SPECIMEN Ordering Facility: [facility] Address: [address] [place] [address] Performed By: #### 5 8410-2 #### [facility] CLIA [id number] [address] [place] [address] [place] Platelet mean volume (Bld) [Entitic vol] 9.0 fL Normal 9.0-12.7 [facility] Comment on above: Order Comment: Speci men Type: BLOOD SPECIMEN Ordering Facility: [facility] Address: [address] [place] [address] Performed By: #### 5 8410-2 #### [facility] CLIA [id number] [address] [place], [place] [address] [place] Platelets (Bld) [#/Vol] 264 10*3/uL Normal 150-400 [facility] Comment on above: Order Comment: Speci men Type: BLOOD SPECIMEN Ordering Facility: [facility] Address: [address] [place] [address] Performed By: #### 5 8410-2 #### [facility] CLIA [id number] [address] [place] [address] [place] RBC (Bld) [#/Vol] 4.17 10*6/uL Low 4.20-6.00 [facility] Comment on above: Order Comment: Speci men Type: BLOOD SPECIMEN Ordering Facility: [facility] Address: [address] [place] [address] Performed By: #### 5 8410-2 #### [facility] CLIA [id number] [address] [place] [address] [place] WBC (Bld) [#/Vol] 13.92 10*3/uL High 3.70-11.00 [facility] Comment on above: Order Comment: Speci men Type: BLOOD SPECIMEN Ordering Facility: [facility] Address: [address] [place] [address] Performed By: #### 5 8410-2 #### [facility] CLIA [id number] [address] [place] CNDSon 02-27-2025 CNDS HNO ID: [id number] Author: BING ARVIZU MD Service: Urology Author [...] Your Medications These medications were sent to [facility] [address] [place] [address] Hours: Monday-Monday: 7am-7pm, Sat: 9am-1pm acetaminophen 325 [...] 8% Length of Stay (d) 0 -7% [facility] -6% Admissions (60d) 0 -6% Observations (365d) 0 6% Admission Provider Speciality UROLOGY 5% Memo Scale N/A I have performed the [id number] and relevant services for a total of >30 minutes. SIGNATURE: Tamanna Zhu APRN.CNP DATE: February 27, 2025 TIME: 12:52 PM [facility] NURSING PROGon 02-27-2025 NURSING PROG HNO ID: [id number] Author: LATRICE HATHAWAY RN Service: Nursing Author Type: Registered Nurse Type: Nursing Progress Note Filed: 02/27/2025 18:39 Note Text: Transfer Note: PATIENT NAME: Skyler Le Patient Location: [place] [address]/BK9C-[id number] Room: [place] [address] Patient transferred into room/unit PK312 in stable condition.[id number]. Actions taken: Oriented to unit,care and orders. murguia draining clear;yellow urine. IVF infusing patient stated had allergy to flomax. Had dizziness and back pain. Meghann Hernández added allergy. flomax not given [facility] OPERATIVE NOon 02-27-2025 OPERATIVE NO HNO ID: [id number] Author: BING ARVIZU MD Service: Urology Author Type: Physician Type: Operative Report Filed: 02/27/2025 12:01 Note Text: OPERATIVE/PROCEDURE REPORT LOG ID: [id number] Surgery/Procedure Date: 02/27/2025 Incision/Procedure Start Time: 8:27 AM Incision Close/Procedure End Time: 12:20 PM Surgeon(s)/Proceduralis t(s) and Loader Helper(s): Surgeons and Role: * Bing Arvizu MD - Primary * Dallas Bullard MD - Resident - Assisting Physician Loader Helper: Yovany Fountain PA-C Procedure(s): 1) left robotic [...] the case. We then placed a 12-mm photo studio assistant port. The robot was then docked, [...] needed. The robot was undocked. The 12-mm photo studio assistant port was decided to be our extraction site. The photo studio assistant port was then extended and the [...] lymph nodes Implantable Devices: None Drains: 16 Maltese Murguia catheter Complications: None Accidental Punctures/Lacerations: None SURGEON: MD MASON Tinoco (more content not included)... [facility] Pathology biopsy report Carlos (Tiss)on 02-27-2025 AP DISCLAIMER [facility] Comment on above: Order Comment: Speci men Type: TISSUE SPECIMEN Ordering Facility: [facility] Address: [address] [place] [address] Result Comment: Zahira craig Developed Test (LDT) Disclaimer: Performance characteristics of immunohistochemical, immunofluorescent, and chromogenic in-situ hybridization tests have been determined by the performing laboratory within [facility] Pathology and Laboratory Medicine Department ([facility], [facility], [facility], [facility], [facility], [facility], or [facility]) in a manner consistent with CLIA [...] By: #### 6 6121-5 #### [facility] CLIA [id number] [address] [place], [place] [address] [address] OF [facility] CLIA [id number] [place] [address] OF [facility] BLOCK FOR ADDITIONAL BIOMARKERS/MOLECULAR STUDIES [facility] Comment on above: Order Comment: Speci men Type: TISSUE SPECIMEN Ordering Facility: [facility] Address: [address] [place] [address] Result Comment: Carmen l metastasis: B16 Kidney primary: B6, B20 Performed By: #### 6 6121-5 #### [facility] CLIA [id number] [address] [place] [address] LABORATORY CLIA [id number] [address] [place] [address] CASE REPORT [facility] Comment on above: Order Comment: Speci men Type: TISSUE SPECIMEN Ordering Facility: [facility] Address: [address] [place] [address] Result Comment: [facility] Pathology Report Case: [id number] Authorizing Provider: Bing Arvizu MD Collected: 02/27/2025 11:37 AM Ordering Location: [facility] Received: 02/27/2025 12:13 PM Operating Room Pathologist: Shasta Middleton MD Specimens: A) - Lymph Node (Specify Site in Comments), para aortic lymph nodes B) - Kidney, Left, Resection, radical nephrectomy Performed By: #### 6 6121-5 #### [facility] CLIA [id number] [address] [place] [address] LABORATORY CLIA [id number] [address] [place] [address] OF [facility] CLINICAL HISTORY [facility] Comment on above: Order Comment: Speci men Type: TISSUE SPECIMEN Ordering Facility: [facility] Address: [address] [place] [address] Result Comment: 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 Performed By: #### 6 6121-5 #### [facility] CLIA [id number] [address] [place] [address] LABORATORY CLIA [id number] [address] [place] [address] FINAL DIAGNOSIS [facility] Comment on above: Order Comment: Speci men Type: TISSUE SPECIMEN Ordering Facility: [facility] Address: [address] [place] [address] Result Comment: A. L ymph nodes, para-aortic, regional resection: - Metastatic renal cell carcinoma with sarcomatoid differentiation in one of two lymph nodes (1/). B. Kidney, left, radical nephrectomy: - Renal cell carcinoma, unclassified, with sarcomatoid differentiation, grade 4, 8 cm. - Tumor invades perinephric fat, renal sinus, and pelvis. - Margins are negative for tumor. - Metastatic renal cell carcinoma with sarcomatoid differentiation in one hilar lymph node (10/02). - Portion of benign adrenal gland. at 1356 EDT Performed By: #### 6 6121-5 #### [facility] CLIA [id number] [address] [place] [address] LABORATORY CLIA [id number] [address] [place] [address] [place] FINAL PERFORMING LAB Normal [facility] Comment on above: Order Comment: Speci men Type: TISSUE SPECIMEN Ordering Facility: [facility] Address: [address] [place] [address] Result Comment: Diag nostic interpretation performed at: [facility], [address] [place] [address], [place] [address] CLIA# [id number] Cloth Spreader Screen Printing: Zack Baez MD Performed By: #### 6 6121-5 #### [facility] CLIA [id number] [address] [place] [address] LABORATORY CLIA [id number] [address] [place] [address] GROSS DESCRIPTION [facility] Comment on above: Order Comment: Speci men Type: TISSUE SPECIMEN Ordering Facility: [facility] Address: [address] [place] [address] Result Comment: A. L ymph Node (Specify [...] 2025 2:55 PM Gross examination performed at [facility], [address] [place] [address] B. Kidney, Left, Resection Received in formalin [...] medullary tissue is present. Photographs are taken. Web Operations Administrator sections are submitted as follows: B1 ureter [...] adjacent dissecting area from superior pole B12 leasing representative cyst from superior and mid pole B13-B14 adrenal gland with disrupted and nodular areas B15-B16 hilar lymph node HI February 28, 2025 Gross examination performed at [facility] [id number] [place] [address] Additional sections of mass are submitted in cassettes B17-B22. WE March 07, 2025 11:29 AM Gross examination performed at [facility], [address] [place] [address] Performed By: #### 6 6121-5 #### [facility] CLIA [id number] [address] [facility] [address] OF [facility] CLIA [id number] [address] SYNOPTIC REPORT [facility] Comment on above: Order Comment: Speci men Type: TISSUE SPECIMEN Ordering Facility: [facility] Address: [address] [place] [address] Result Comment: NIKKO EY: Nephrectomy KIDNEY: RESECTION [...] Number of Lymph Nodes with Tumor: 2 Karis Site(s) with Tumor: Hilar Karis Site(s) with Tumor: Paraaortic Size of Largest Karis Metastatic Deposit: 3.8 cm Extranodal Extension (NASEEM): [...] cysts Performed By: #### 6 6121-5 #### [facility] CLIA [id number] [address] [facility] [id number] [place], [place] [address] [facility] CLIA [id number] TYPE + SCREENon 02-27-2025 ABO O [facility] Comment on above: Order Comment: Speci men Type: BLOOD SPECIMENOrdering Facility: [facility] Address: [address] [place] [address] Performed By: #### T SCR ####[facility] [id number] [address] OF [place] Rh Nom (Bld) Positive [facility] Comment on above: Order Comment: Speci men Type: BLOOD SPECIMENOrdering Facility: [facility] Address: [address] [place] [address] Performed By: #### T SCR ####[facility] [id number] [address] TYPE AND SCREEN EXPIRATION 03/02/2025 23:59 [facility] Comment on above: Order Comment: Speci men Type: BLOOD SPECIMENOrdering Facility: [facility] Address: [address] [place] [address] Performed By: #### T SCR ####[facility] [id number] [address] OF [place] CNPLoren 02-10-2025 CAR[facility] Telephone (JOVI) SKYLER LE ([id number]) 1960 M Date Time Provider Department 02/10/25 [...] Encounter Status:Closed by ROB [facility]10[facility] SK[facility] LE ([id number]) 1960 M Date Time Provider Department 02/10/25 ROB ROMERO During your visit today, we recorded the following information about you: Rob Romero APRN.[facility] 02/10/2025 9:37 AM Signed I have ordered two Venofer Infusions for patient . [facility] to have these completed. Annalee Oro RN 02/14/2025 2:49 PM Addendum I called [facility] this am at 10 am. RN notified of Venofer order. States will speak to pharmacist and nurse manager commercial and arrange patient to get Venofer Infusion.[phone] Mehul notified. Allergies As of Date: 02/10/2025 [...] Status:Closed by ROB ROMERO on 02/10/25 [facility] ECG COMPLETEon 02-07-2025 ECG COMPLETE Ventricular Rate : 5 1 BPM Atrial Rate : 51 BPM P-R Interval : 136 ms QRS Duration : 86 ms Q-T Interval : 452 ms QTC Calculation(Bazett) : 416 ms Calculated P [place] : 50 degrees Calculated R [place] : 44 degrees Calculated T [place] : 55 degrees SINUS BRADYCARDIA OTHERWISE NORMAL ECG Confirmed by FRANC SHIPMAN MD ([id number]) on 02/26/2025 3:20:12 PM NAME : SKYLER LE PID : [id number] : 1960 Gender : Male Race : ORD : [id number] Procedure Date : Feb 07 2025 13:03:37 Edit Date : Feb 26 2025 15:20:17 Diagnosis: SINUS BRADYCARDIA OTHERWISE NORMAL ECG Confirmed by FRANC SHIPMAN MD ([id number]) on 02/26/2025 3:20:12 PM Test Reason : Z01.818 Pre-op evaluation Location : 145 : [place] Overread By : FRANC SHIPMAN MD Edited By : FRANC SHIPMAN MD Referred By : BING ARVIZU Acquired by : am, [facility] Ferritin SerPl-mCncon 2024 Ferritin [Mass/Vol] 131.0 ng/mL Normal 30.3-565.7 [facility] Comment on above: Order Comment: Speci men Type: BLOOD SPECIMENOrdering Facility: [facility] Address: [address] [place] [address] Performed By: #### 2 276-4, 58485-0 ####[facility]IA [id number] [place] [address] [place] HISTORY PHYSICALon HISTORY PHYSICAL HNO ID: [id number] Author: ROB ROMERO APRN.CNP Service: ? Author Type: Nurse Practitioner Type: H&P Filed: 02/17/2025 08:06 Note Text: [facility] HISTORY AND PHYSICAL EXAMINATION SERVICE DATE: 02/07/2025 SERVICE TIME: 2:02 PM PRIMARY CARE PHYSICIAN: Jessica Davalos CNP, [employer] REASON FOR VISIT: Skyler Le is a [...] 0 (ROSA M compliant with CPAP ) [id number] Score: Age: 65-74 Sex: male CHF history: No Hypertension history: Yes Stroke/TIA/thromboembol ism history: No Vascular disease history: No Diabetes history: Yes [id number] Score: 3 ARISCAT Score: Age: 51-80 Preoperative [...] OF SYST (more content not included)... [facility] HbA1c (Bld)on 02-07-2025 Average glucose Estimated from glycated hemoglobin (Bld) [Mass/Vol] 108 mg/dL [facility] Comment on above: Order Comment: Miguelina thomas Type: BLOOD SPECIMENOrdering Facility: [facility] Address: [address] [place] [address] Result Comment: eAG: (Estimated average glucose) is a calculated value from HgbA1c and is leasing representative of the average blood glucose level in the last 2-3 month period. Performed By: #### 5 5454-3 ####[facility] [id number] [place] [address] [place] HbA1c (Bld) [Mass fraction] 5.4 % Normal 4.3-5.6 [facility] Comment on above: Order Comment: Miguelina thomas Type: BLOOD SPECIMENOrdering Facility: [facility] Address: [address] [place] [address] Result Comment: [place] Diabetes Association guidelines indicate that patients with HgbA1c in the range 5.7-6.4% are at increased risk for development of diabetes, and intervention by lifestyle modification may be beneficial. HgbA1c greater or equal to 6.5% is considered diagnostic of diabetes. Performed By: #### 5 5454-3 ####[facility] [id number] [place] [address] [place] Iron and Iron binding capaci ty panelon 02-07-2025 Iron [Mass/Vol] 23 ug/dL Low 41-186 [facility] Comment on above: Order Comment: Miguelina thomas Type: BLOOD SPECIMENOrdering Facility: [facility] Address: [address] [place] [address] Performed By: #### 2 276-4, 96577-7 ####[facility] [id number] [place] [address] [place] Iron binding capacity [Mass/Vol] 247 ug/dL Normal 232-386 [facility] Comment on above: Order Comment: Miguelina men Type: BLOOD SPECIMENOrdering Facility: [facility] Address: [address] [place], [place] [address] Performed By: #### 2 276-4, 24175-4 ####[facility] [id number] [place] [id number] [place] Iron/TIBC [Molar ratio] 9.3 % Low 15.0-57.0 [facility] Comment on above: Order Comment: Speci men Type: BLOOD SPECIMENOrdering Facility: [facility] Address: [address] [place], [place] [address] Performed By: #### 2 276-4, 97348-6 ####[facility] [id number] [place] [id number] [place] BRIEF OP NOTon 01-24-2025 BRIEF OP NOT HNO ID: [id number] Author: YOVANY ESTRADA DO Service: Radiology Author Type: Physician Type: Brief Op Note Filed: 01/24/2025 11:55 Note Text: BRIEF OPERATIVE / PROCEDURE NOTE LOG ID: [id number] SURGERY/PROCEDURE DATE: 01/24/2025 INCISION/PROCEDURE START TIME: 11:39 AM INCISION CLOSE/PROCEDURE END TIME: 11:52 AM SURGEON(S)/PROCEDURALIS T(S) AND BIBLICAL STUDIES PROFESSOR(S): Surgeons and Role: * Yovany Estrada DO [...] January 24, 2025 TIME: 11:53 AM Normal [facility] Bacteria Ur Culton Bacteria identified Cx Nom (U) ORGANISM ID: 1 <10,000 CFU/ml Normal urogenital rudy Normal [facility] Comment on above: Performed By: #### 6 30-4 ####[facility]CL[facility] [id number] [address], [place] [address] [place] CBC W Auto Differential pane l (Bld)on 01-24-2025 Basophils (Bld) [#/Vol] 0.07 10*3/uL Normal <0.11 [facility] Comment on above: Order Comment: Speci men Type: BLOOD SPECIMENOrdering Facility: [facility] Address: [address] [place] [address] Performed By: #### 5 7021-8 ####[facility]CL[facility] [id number] [place] [address] [place] Basophils/100 WBC (Bld) 0.5 % Normal [facility] Comment on above: Order Comment: Speci men Type: BLOOD SPECIMENOrdering Facility: [facility] Address: [address] [place] [address] Performed By: #### 5 7021-8 ####[facility] [id number] [place] [address] [place] Differential cell count method Nom (Bld) Auto Normal [facility] Comment on above: Order Comment: Speci men Type: BLOOD SPECIMENOrdering Facility: [facility] Address: [address] [place] [address] Performed By: #### 5 7021-8 ####[facility] [id number] [place] [address] [place] Eosinophils (Bld) [#/Vol] 0.09 10*3/uL Normal <0.46 [facility] Comment on above: Order Comment: Speci men Type: BLOOD SPECIMENOrdering Facility: [facility] Address: [address] [place] [address] Performed By: #### 5 7021-8 ####[facility] [id number] [id number] [address] [place] Eosinophils/100 WBC (Bld) 0.7 % Normal [facility] Comment on above: Order Comment: Speci men Type: BLOOD SPECIMENOrdering Facility: [facility] Address: [address] [place] [address] Performed By: #### 5 7021-8 ####[facility] [id number] [place] [address] [place] Erythrocyte distribution width (RBC) [Ratio] 15.0 % Normal 11.5-15.0 [facility] Comment on above: Order Comment: Speci men Type: BLOOD SPECIMENOrdering Facility: [facility] Address: [address] [place] [address] Performed By: #### 5 7021-8 ####[facility] [id number] [place] [address] [place] Hematocrit (Bld) [Volume fraction] 35.9 % Low 39.0-51.0 [facility] Comment on above: Order Comment: Speci men Type: BLOOD SPECIMENOrdering Facility: [facility] Address: [address] [place] [address] Performed By: #### 5 7021-8 ####[facility] [id number] [place] [address] [place] Hemoglobin (Bld) [Mass/Vol] 11.1 g/dL Low 13.0-17.0 [facility] Comment on above: Order Comment: Speci men Type: BLOOD SPECIMENOrdering Facility: [facility] Address: [address] [place] [address] Performed By: #### 5 7021-8 ####[facility] [id number] [place] [address] [place] Immature granulocytes (Bld) [#/Vol] 0.09 10*3/uL Normal <0.10 [facility] Comment on above: Order Comment: Speci men Type: BLOOD SPECIMENOrdering Facility: [facility] Address: [address] [place] [address] Performed By: #### 5 7021-8 ####[facility] [id number] [place] [address] [place] [facility] Immature granulocytes/100 WBC (Bld) 0.7 % Normal [facility] Comment on above: Order Comment: Speci men Type: BLOOD SPECIMENOrdering Facility: [facility] Address: [address] [place] [address] Performed By: #### 5 7021-8 ####[facility] [id number] [place] [address] [place] Lymphocytes (Bld) [#/Vol] 1.32 10*3/uL Normal 1.00-4.00 [facility] Comment on above: Order Comment: Speci men Type: BLOOD SPECIMENOrdering Facility: [facility] Address: [address] [place] [address] Performed By: #### 5 7021-8 ####[facility] [id number] [place] [address] [place] Lymphocytes/100 WBC (Bld) 10.3 % Normal [facility] Comment on above: Order Comment: Speci men Type: BLOOD SPECIMENOrdering Facility: [facility] Address: [address] [place] [address] Performed By: #### 5 7021-8 ####[facility] [id number] [place] [address] [place] MCH (RBC) [Entitic mass] 24.5 pg Low 26.0-34.0 [facility] Comment on above: Order Comment: Speci men Type: BLOOD SPECIMENOrdering Facility: [facility] Address: [address] [place] [address] Performed By: #### 5 7021-8 ####[facility] [id number] [place] [address] [place] MCHC (RBC) [Mass/Vol] 30.9 g/dL Normal 30.5-36.0 [facility] Comment on above: Order Comment: Speci men Type: BLOOD SPECIMENOrdering Facility: [facility] Address: [address] [place] [address] Performed By: #### 5 7021-8 ####[facility] [id number] [place] [address] [place] MCV (RBC) [Entitic vol] 79.2 fL Low 80.0-100.0 [facility] Comment on above: Order Comment: Speci men Type: BLOOD SPECIMENOrdering Facility: [facility] Address: [address] [place] [address] Performed By: #### 5 7021-8 ####[facility] [id number] [place] [address] [place] Monocytes (Bld) [#/Vol] 1.09 10*3/uL High <0.87 [facility] Comment on above: Order Comment: Speci men Type: BLOOD SPECIMENOrdering Facility: [facility] Address: [address] [place] [address] Performed By: #### 5 7021-8 ####[facility] [id number] [place] [address] [place] Monocytes/100 WBC (Bld) 8.5 % Normal [facility] Comment on above: Order Comment: Speci men Type: BLOOD SPECIMENOrdering Facility: [facility] Address: [address] [place] [address] Performed By: #### 5 7021-8 ####[facility] [id number] [place] [id number] [place] Neutrophils (Bld) [#/Vol] 10.14 10*3/uL High 1.45-7.50 [facility] Comment on above: Order Comment: Speci men Type: BLOOD SPECIMENOrdering Facility: [facility] Address: [address] [place] [address] Performed By: #### 5 7021-8 ####[facility] [id number] [place] [address] [place] Neutrophils/100 WBC (Bld) 79.3 % Normal [facility] Comment on above: Order Comment: Speci men Type: BLOOD SPECIMENOrdering Facility: [facility] Address: [address] [place] [address] Performed By: #### 5 7021-8 ####[facility] [id number] [place] [address] [place] Nucleated RBC (Bld) [#/Vol] 10*3/uL Normal <0.01 [facility] Comment on above: Order Comment: Speci men Type: BLOOD SPECIMENOrdering Facility: [facility] Address: [address] [place] [address] Performed By: #### 5 7021-8 ####[facility] [id number] [place] [address] [place] Nucleated RBC/100 WBC (Bld) [Ratio] 0.0 /100 WBC Normal [facility] Comment on above: Order Comment: Speci men Type: BLOOD SPECIMENOrdering Facility: [facility] Address: [address] [place] [address] Performed By: #### 5 7021-8 ####[facility] [id number] [place] [id number] [place] Platelet mean volume (Bld) [Entitic vol] 9.7 fL Normal 9.0-12.7 [facility] Comment on above: Order Comment: Speci men Type: BLOOD SPECIMENOrdering Facility: [facility] Address: [address] [place] [address] Performed By: #### 5 7021-8 ####[facility] [id number] [place] [address] [place] Platelets (Bld) [#/Vol] 310 10*3/uL Normal 150-400 [facility] Comment on above: Order Comment: Speci men Type: BLOOD SPECIMENOrdering Facility: [facility] Address: [address] [place] [address] Performed By: #### 5 7021-8 ####[facility] [id number] [place] [address] [place] RBC (Bld) [#/Vol] 4.53 10*6/uL Normal 4.20-6.00 [facility] Comment on above: Order Comment: Speci men Type: BLOOD SPECIMENOrdering Facility: [facility] Address: [address] [place] [address] Performed By: #### 5 7021-8 ####[facility] [id number] [place] [address] [place] WBC (Bld) [#/Vol] 12.80 10*3/uL High 3.70-11.00 [facility] Comment on above: Order Comment: Speci men Type: BLOOD SPECIMENOrdering Facility: [facility] Address: [address] [place] [address] Performed By: #### 5 7021-8 ####[facility] [id number] [place] [address] [place] CONFIRM BLOOD TYPEon 025 ABO O Normal [facility] Comment on above: Order Comment: Speci men Type: BLOOD SPECIMENOrdering Facility: [facility] Address: [address] [place] [address] Performed By: #### C ONABO ####[facility] BANKIA [id number] [place] [address] [place] Rh Nom (Bld) Positive Normal [facility] Comment on above: Order Comment: Speci men Type: BLOOD SPECIMENOrdering Facility: [facility] Address: [address] [place] [address] Performed By: #### C ONAB ####[facility] [id number] [place] [id number] [place] Comprehensive metabolic 2000 panelon 01-24-2025 Albumin [Mass/Vol] 3.8 g/dL Low 3.9-4.9 [facility] Comment on above: Order Comment: Speci men Type: BLOOD SPECIMENOrdering Facility: [facility] Address: [address] [place] [address] Performed By: #### 2 4323-8 ####[facility]CL[facility] [id number] [place] [address] [place] ALP [Catalytic activity/Vol] 66 U/L Normal 38-113 [facility] Comment on above: Order Comment: Speci men Type: BLOOD SPECIMENOrdering Facility: [facility] Address: [address] [place] [address] Performed By: #### 2 4323-8 ####[facility]CL[facility] [id number] [place] [address] [place] ALT [Catalytic activity/Vol] 8 U/L Low 10-54 [facility] Comment on above: Order Comment: Speci men Type: BLOOD SPECIMENOrdering Facility: [facility] Address: [address] [place] [address] Performed By: #### 2 4323-8 ####[facility]CL[facility] [id number] [place] [id number] [place] Anion gap [Moles/Vol] 11 mmol/L Normal 8-15 [facility] Comment on above: Order Comment: Speci men Type: BLOOD SPECIMENOrdering Facility: [facility] Address: [address] [place], [place] [address] Performed By: #### 2 4323-8 ####[facility] [id number] [place] [id number] [place] AST [Catalytic activity/Vol] 12 U/L Low 14-40 [facility] Comment on above: Order Comment: Speci men Type: BLOOD SPECIMENOrdering Facility: [facility] Address: [address] [place] [address] Performed By: #### 2 4323-8 ####[facility] [id number] [place] [address] [place] Bilirubin [Mass/Vol] 0.4 mg/dL Normal 0.2-1.3 [facility] Comment on above: Order Comment: Speci men Type: BLOOD SPECIMENOrdering Facility: [facility] Address: [address] [place] [address] Performed By: #### 2 4323-8 ####[facility] [id number] [place] [address] [place] Calcium [Mass/Vol] 9.2 mg/dL Normal 8.5-10.2 [facility] Comment on above: Order Comment: Speci men Type: BLOOD SPECIMENOrdering Facility: [facility] Address: [address] [place] [address] Performed By: #### 2 4323-8 ####[facility] [id number] [place] [address] [place] Chloride [Moles/Vol] 98 mmol/L Normal 98-107 [facility] Comment on above: Order Comment: Speci men Type: BLOOD SPECIMENOrdering Facility: [facility] Address: [address] [place] [address] Performed By: #### 2 4323-8 ####[facility] [id number] [place] [id number] [place] CO2 [Moles/Vol] 28 mmol/L Normal 22-30 [facility] Comment on above: Order Comment: Speci men Type: BLOOD SPECIMENOrdering Facility: [facility] Address: [address] [place] [address] Performed By: #### 2 4323-8 ####[facility] [id number] [place] [id number] [place] Creatinine [Mass/Vol] 1.44 mg/dL High 0.73-1.22 [facility] Comment on above: Order Comment: Speci men Type: BLOOD SPECIMENOrdering Facility: [facility] Address: [address] [place] [address] Performed By: #### 2 4323-8 ####[facility] [id number] [place] [address] [place] Creatinine and Glomerular filtration rate.predicted panel (S/P/Bld) 54 mL/min/1.73m??? Low >=60 [facility] Comment on above: Order Comment: Speci men Type: BLOOD SPECIMENOrdering Facility: [facility] Address: [address] [place] [address] Result Comment: Samantha mated Glomerular Filtration Rate [...] reflect actual GFR. Performed By: #### 2 4323-8 ####[facility] [id number] [place] [id number] [place] Glucose [Mass/Vol] 112 mg/dL High 74-99 [facility] Comment on above: Order Comment: Speci men Type: BLOOD SPECIMENOrdering Facility: [facility] Address: [address] [place] [address] Result Comment: The [place] Diabetes [employer] (ADA) provides guidance for cutoff [...] Standards of Medical Care in Diabetes 2016, [place] [employer]. Diabetes Care. 2016.39(Suppl 1). Performed By: #### 2 4323-8 ####[facility] [id number] [address] [address] [place] Potassium [Moles/Vol] 4.5 mmol/L Normal 3.7-5.1 [facility] Comment on above: Order Comment: Speci men Type: BLOOD SPECIMENOrdering Facility: [facility] Address: [address] [place] [address] Performed By: #### 2 4323-8 ####[facility] [id number] [place] [id number] [place] Protein [Mass/Vol] 7.6 g/dL Normal 6.3-8.0 [facility] Comment on above: Order Comment: Ryliei men Type: BLOOD SPECIMENOrdering Facility: [facility] Address: [address] [place] [address] Performed By: #### 2 4323-8 ####[facility] [id number] [place] [id number] [place] Sodium [Moles/Vol] 137 mmol/L Normal 136-144 [facility] Comment on above: Order Comment: Speci men Type: BLOOD SPECIMENOrdering Facility: [facility] Address: [address] [place] [address] Performed By: #### 2 4323-8 ####[facility] [id number] [address] [address] [place] Urea nitrogen [Mass/Vol] 24 mg/dL Normal 9-24 [facility] Comment on above: Order Comment: Speci men Type: BLOOD SPECIMENOrdering Facility: [facility] Address: [address] [place] [address] Performed By: #### 2 4323-8 ####[facility] [id number] [place] [id number] [place] [address] [place] HISTORY PHYSICALon HISTORY PHYSICAL HNO ID: [id number] Author: YOVANY ESTRADA DO Service: Radiology Author [...] January 24, 2025 TIME: 9:43 AM Normal [facility] NURSING PROGon 01-24-2025 NURSING PROG HNO ID: [id number] Author: SIA OTTO RN Service: ? Author Type: Registered Nurse Type: Nursing Progress Note Filed: 01/27/2025 08:15 Note Text: Completed post procedure phone call. Skyler is feeling well and has returned to his baseline diet and activity. Skyler denies questions or concerns related to his kidney biopsy appointment on 01/24/25 and had no surgical site concerns. Normal [facility] PT EDon 01-24-2025 PT ED HNO ID: [id number] Author: ML MATA RN Service: Radiology Author [...] RN In Department: HOSP MAIN FB36 Normal [facility] PT panel Coag (PPP)on 2024 INR Coag (PPP) [Relative time] 1.1 {INR} Normal 0.9-1.3 [facility] Comment on above: Order Comment: Speci william Type: BLOOD SPECIMENOrdering Facility: [facility] Address: [address] [place] [address] Result Comment: Leticia min K Antagonist (VKA) Therapeutic Range: INR 2 to 3 (Target INR of 2.5) Note: For patients treated with VKA drugs, such as warfarin, the [place] [employer] 2012 Guideline recommends [...] Chest 2012, 141:7S-47S Waqas RA, et al. [facility] 2017, 70: 252-289 Performed By: #### 3 4528-0, 84985-9 ####[facility] [id number] [place] [id number] [place] PT Coag (PPP) [Time] 12.1 s Normal 9.7-13.0 [facility] Comment on above: Order Comment: Speci men Type: BLOOD SPECIMENOrdering Facility: [facility] Address: [address] [place] [address] Performed By: #### 3 4528-0, 07214-7 ####[facility] [id number] [place] [id number] [place] [facility] Pathology biopsy report Carlos (Tiss)on 01-24-2025 AP DISCLAIMER Normal [facility] Comment on above: Order Comment: Speci men Type: TISSUE SPECIMENOrdering Facility: [facility] Address: [address] [place] [address] Result Comment: Zahira craig Developed Test (LDT) Disclaimer: Performance characteristics of immunohistochemical, immunofluorescent, and chromogenic in-situ hybridization tests have been determined by the performing laboratory within [facility] Pathology and Laboratory Medicine Department ([facility], [facility], [facility], [facility], [facility], [facility], or [facility]) in a manner consistent with CLIA requirements. One or more of these tests may not have been cleared or approved by the FDA. [facility] is regulated under CLIA as qualified to perform high-complexity testing. These tests are used for clinical purposes. These should not be regarded as investigational or for research. Positive and negative controls stain appropriately. Performed By: #### 6 6121-5 ####[facility] [id number] [place] [address] [place] CASE REPORT Normal [facility] Comment on above: Order Comment: Speci men Type: TISSUE SPECIMENOrdering Facility: [facility] Address: [address] [place] [address] Result Comment: [facility] Pathology Report Case: [id number] Authorizing Provider: Bg Navas MD Collected: 01/24/2025 11:40 AM Ordering Location: [place] [address] Received: 01/24/2025 04:48 PM Pathologist: Becky Cox MD Specimen: Kidney, Mass, Left, Biopsy Performed By: #### 6 6121-5 ####[facility] [id number] [place] [address] [place] CLINICAL HISTORY left renal lesion Normal [facility] Comment on above: Order Comment: Speci men Type: TISSUE SPECIMENOrdering Facility: [facility] Address: [address] [place] [address] Performed By: #### 6 6121-5 ####[facility] [id number] [place] [address] [place] DIAGNOSIS COMMENT Normal [facility] Comment on above: Order Comment: Speci men Type: TISSUE SPECIMENOrdering Facility: [facility] Address: [address] [place] [address] Result Comment: Immu nohistochemical stains to aid [...] above interpretation. 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 See comment. at 1113 EDT Performed By: #### 6 6121-5 ####[facility] [id number] [place] [address] [place] FINAL PERFORMING LAB Normal [facility] Comment on above: Order Comment: Speci men Type: TISSUE SPECIMENOrdering Facility: [facility] Address: [address] [place] [address] Result Comment: Diag nostic interpretation performed at: [facility], [address] [place] [address] CLIA# [id number] [employer] Spreader Screen Printing: Zack Baez MD Performed By: #### 6 6121-5 ####[facility] [id number] [address] GROSS DESCRIPTION Normal [facility] Comment on above: Order Comment: Speci men Type: TISSUE SPECIMENOrdering Facility: [facility] Address: [address] [place] [address] Result Comment: Mayte mena, Mass, Left, Biopsy Received in formalin are multiple segments of cylindrical tissue aggregating to 2.0 x 0.4 x 0.1 cm, sabillon and of a soft and friable consistency. Totally submitted in one cassette. Gross examination performed at [facility], [address] [place] [address] JT 01/24/2025 5:57 PM Performed By: #### 6 6121-5 ####[facility] [id number] [address] STATES OF I[place] MICROSCOPIC DESCRIPTION Normal [facility] Comment on above: Order Comment: Speci men Type: TISSUE SPECIMENOrdering Facility: [facility] Address: [address] [place] [address] Result Comment: Slid es reveal 4 cores [...] is seen. Performed By: #### 6 6121-5 ####[facility] LABCLIA [id number] [place] [address] [place] TYPE + SCREENon 01-24-2025 ABO O Normal [facility] Comment on above: Order Comment: Speci men Type: BLOOD SPECIMENOrdering Facility: [facility] Address: [address] [place] [address] Performed By: #### T SCR ####[facility] BLOOD BANKIA [id number] [place] [address] [place] Rh Nom (Bld) Positive Normal [facility] Comment on above: Order Comment: Speci men Type: BLOOD SPECIMENOrdering Facility: [facility] Address: [address] [place] [address] Performed By: #### T SCR ####[facility] BLOOD BANKIA [id number] [place] [address] [place] TYPE AND SCREEN EXPIRATION 01/27/2025 23:59 Normal [facility] Comment on above: Order Comment: Speci men Type: BLOOD SPECIMENOrdering Facility: [facility] Address: [address] [place] [address] Performed By: #### T SCR ####[facility] BLOOD BANKIA [id number] [place] [address] [place] US BIOPSY RENALon 01-24-2025 US BIOPSY RENAL * * *Final Report* * * DATE OF EXAM: Jan 24 2025 12:27PM U 1070 - US BIOPSY RENAL / 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 Estrada BIBLICAL STUDIES PROFESSOR(S): None. CONSENT: The risks, benefits, treatment options, [...] performed by the: attending radiologist, without an photo studio assistant. ANESTHESIA/SEDATION: Conscious sedation: Versed: 1.0 mg [...] LEFT RENAL MASS BIOPSY DESCRIBED. v 12.9.21 Treadle Cut Off Saw Operator: YANY Transcribe Date/Time: Jan 24 2025 12:25P Dictated by : YOVANY ESTRADA DO This examination was interpreted and the report reviewed and electronically signed by: YOVANY ESTRADA DO on Jan 24 2025 1:25PM EST [id number] Normal [facility] aPTT PPPon 01-24-2025 aPTT Coag (PPP) [Time] 31.6 s Normal 23.0-32.4 [facility] Comment on above: Order Comment: Speci men Type: BLOOD SPECIMENOrdering Facility: [facility] Address: [address] [place] [address] Performed By: #### 3 4528-0, 08092-5 ####[facility] LABCLIA [id number] [place] [address] [place] NURSING PROGon 01-20-2025 NURSING PROG HNO ID: [id number] Author: NICHOLE DAMON, RN Service: Radiology Author Type: Registered Nurse Type: Nursing Progress Note Filed: 01/20/2025 10:10 Note Text: Pre-procedure instructions: Contacted patient and confirmed appt. for kidney mass biopsy scheduled on 01/24/25, at [facility]. If instructions are not followed your procedure [...] the day of your procedure at the [facility], desk J1-4. Arrival: Please bring your Photo ID and Insurance Card. A general consent may need to be signed. Arrival at 8:30am to desk J1-4 (Lab) Then proceed to desk QB-1 ([facility]) and check in for your procedure. Spinning And Winding Supervisor/Transportation: How will you be arriving for your procedure? Private car. You will need a responsible adult to accompany you to and from the procedure. Your driver guard is required to stay with you until you are taken into the Procedure room. Recovery expectations: You can expect to be at the hospital for the majority of the day. Please do not schedule any other appointments the day of your procedure. Written instructions provided to patient via RedKLEVERt If you have any questions please call [phone] Normal [facility] CNPLoren 01-09-2025 [facility] Telephone (URR) SKYLER LE ([id number]) 1960 M Date Time Provider Department 01/09/25 [facility]ING ARVIZU [facility] During your visit today, we recorded the [...] Encounter Status:Closed by ORQUIDEA TERRAZAS on 01/09/25 [facility] Basic metabolic 2000 panelon 01-03-2025 Anion gap [Moles/Vol] 15 mmol/L 8 - 15 mmol/L [facility] Calcium [Mass/Vol] 8.8 mg/dL 8.5 - 10. 2 mg/dL [facility] Chloride [Moles/Vol] 100 mmol/L 98 - 10 7 mmol/L [facility] CO2 [Moles/Vol] 23 mmol/L 22 - 30 mmol/L [facility] Creatinine [Mass/Vol] 1.46 mg/dL High 0.73 - 1.22 mg/dL [facility] GFR/1.73 sq M.predicted among non-blacks MDRD (S/P/Bld) [Vol rate/Area] 53 mL/min/{1.73_m2} Low - PINF [facility] Comment on above: Estimated Glomerular Filtration Rate [...] 115 mg/dL High 74 - 99 mg/dL [facility] Comment on above: The [place] Diabete s Association (ADA) provides guidance for [...] Standards of Medical Care in Diabetes 2016, [place] Diabetes Association. Diabetes Care. 2016.39(Suppl 1). Interpretation and review of laboratory results Abnormal [facility] Potassium [Moles/Vol] 4 mmol/L 3.7 - 5.1 mmol/L [facility] Sodium [Moles/Vol] 138 mmol/L 136 - 144 mmol/L [facility] Urea nitrogen [Mass/Vol] 18 mg/dL 9 - 24 mg/dL [facility] Anion gap [Moles/Vol] 15 mmol/L Normal 8-15 [facility] Comment on above: Order Comment: Miguelina thomas Type: BLOOD SPECIMEN [facility] Address: [address] [place] [address] Performed By: #### 2 4321-2 #### [facility] CLIA [id number] [address] [place] [address] [place] Calcium [Mass/Vol] 8.8 mg/dL Normal 8.5-10.2 [facility] Comment on above: Order Comment: Miguelina thomas Type: BLOOD SPECIMEN [facility] Address: [address] [place] [address] Performed By: #### 2 4321-2 #### [facility] CLIA [id number] [place] [address] [place] Chloride [Moles/Vol] 100 mmol/L Normal 98-107 [facility] Comment on above: Order Comment: Speci men Type: BLOOD SPECIMEN [facility] Address: [address] [place] [address] Performed By: #### 2 4321-2 #### [facility] CLIA [id number] [address] [place] [address] [place] CO2 [Moles/Vol] 23 mmol/L Normal 22-30 [facility] Comment on above: Order Comment: Speci men Type: BLOOD SPECIMEN [facility] Address: [address] [place] [address] Performed By: #### 2 4321-2 #### [facility] CLIA [id number] [address] [place] [address] [place] Creatinine [Mass/Vol] 1.46 mg/dL High 0.73-1.22 [facility] Comment on above: Order Comment: Speci men Type: BLOOD SPECIMEN [facility] Address: [address] [place] [address] Performed By: #### 2 4321-2 #### [facility] CLIA [id number] [address] [place] [address] [place] Creatinine and Glomerular filtration rate.predicted panel (S/P/Bld) 53 mL/min/1.73m??? Low >=60 [facility] Comment on above: Order Comment: Speci men Type: BLOOD SPECIMEN [facility] Address: [address] [place] [address] Result Comment: Samantha mated Glomerular Filtration Rate [...] GFR. Performed By: #### 2 4321-2 #### [facility] CLIA [id number] [address] [place] [address] [place] Glucose [Mass/Vol] 115 mg/dL High 74-99 [facility] Comment on above: Order Comment: Miguelina thomas Type: BLOOD SPECIMEN [facility] Address: [address] [place] [address] Result Comment: The [place] Diabetes Association (ADA) provides guidance for cutoff [...] Standards of Medical Care in Diabetes 2016, [place] Diabetes Association. Diabetes Care. 2016.39(Suppl 1). Performed By: #### 2 4321-2 #### [facility] CLIA [id number] [address] [place] [address] [place] Potassium [Moles/Vol] 4.0 mmol/L Normal 3.7-5.1 [facility] Comment on above: Order Comment: Miguelina thomas Type: BLOOD SPECIMEN [facility] Address: [address] [place] [address] Performed By: #### 2 4321-2 #### [facility] CLIA [id number] [address] [place] [address] [place] Sodium [Moles/Vol] 138 mmol/L Normal 136-144 [facility] Comment on above: Order Comment: Miguelina thomas Type: BLOOD SPECIMEN [facility] Address: [address] [place] [address] Performed By: #### 2 4321-2 #### [facility] CLIA [id number] [address] [place] [address] [place] Urea nitrogen [Mass/Vol] 18 mg/dL Normal 9-24 [facility] Comment on above: Order Comment: Miguelina thomas Type: BLOOD SPECIMEN [facility] Address: [address] [place] [address] Performed By: #### 2 4321-2 #### [facility] [id number] [address] [place] [address] OF [facility] CNOVon 01-03-2025 CNOV Office Visit (URFMOB ) LESKYLER MYLES ([id number]) 1960 M Date Time Provider Department 01/03/25 2:20 PM BING AR[facility]U During your visit today, we recorded the following information about you: Pulse Blood pressure 58/minute 149/70 Bing Arvizu MD 01/03/2025 3:11 PM Signed [facility] NEW PATIENT HISTORY AND PHYSICAL [...] neck Extr (more content not included)... Normal [facility] 01-03-2025 [facility] Telephone (IRRFV) SKYLER LE ([id number]) 1960 M Date Time Provider Department 01/03/25 BING ARVIZU [facility] During your visit today, we recorded the following information about you: Mercy Walker 01/03/2025 3:48 PM Signed RADIOLOGY CALL CENTER INTAKE DATE: 01/03/2025 TIME: 3:46pm REQUESTING STAFF: Bing Arvizu MD PHONE/PAGER: [phone] SPECIFICS OF THE REQUEST: Renal Biopsy SPECIAL REQUESTS: TISSUE SAMPLE, LABWORK: N/A IS THIS REQUEST PART OF A RESEARCH PROTOCOL: No MEDICAL DIAGNOSIS: Neoplasm of uncertain behavior of left kidney TYPE AND DATE OF THE EXAM THAT IS THE BASIS OF THE REQUEST: CT Date: 12/14/2024 IMAGING: OUTSIDE [facility] Films: Where is study now: in patient's chart Note to all persons requesting biopsies: All biopsy requests will be scheduled as quickly as possible, based on the clinical urgency, availability of appointment times, the need to hold anti-thrombolytic therapy (aspirin, blood thinners) and the patient?s schedule, including the need for an available driver guard. If a percutaneous biopsy or drainage is [...] this procedure: intermediate-high risk. Reference from [facility] Log Manager: https://[facility].policyLightPath Apps. com/dotNet/documents/?d xhrr=53587 STAFF SIGNATURE: Rivas Santana MD DATE: January 06, 2025 TIME: 9:21 AM Jamar Carlton 01/06/2025 2:03 PM Signed Left vm for patient to call back- 1st attempt Chani Dacosta 01/07/2025 4:21 PM Signed Called pt to schedule and a message was left. 2nd attempt Chani Dacosta 01/10/2025 9:08 AM Signed Spoke pt and scheduled biopsy for 01/24/25. Nichole Damon, RN 01/20/2025 10:14 AM Signed Addended by: NICHOLE DAMON on: 01/20/2025 10:14 AM Modules accepted: Orders Allergies As of Date: 01/03/2025 (No Known Allergies) Date Reviewed: 01/03/2025 Reviewed by: Darrell uJstin RN - Fully Assessed Reason for Visit: REnal Biopsy [Other] Primary Visit Diagnosis:Renal mass, left [N28.89] Problem List As Of Date: 01/03/2025 (None) Encounter Status:Closed by JAMAR CARLTON on 01/06/25 [facility] Ambulatory Visit Summaryon 0 12-20-2024 Ambulatory [...] [facility] [address] , [place] [address]- Someone Will Contact You Regarding These Appointments [facility] External Ambulatory Referral, Service not offered at [facility], Urology, [facility], 12/20/24 8:54:00 EDT, Renal mass Medications What How Much When Instructions New dutasteride (dutasteride 0.5 mg Cap) 1 Capsules By Mouth Every day Duration: 30 Days Refills: 11 Pickup at [facility] #78230 Unchanged allopurinol (allopurinol 300 mg Tab) By [...] physician if questions or concerns Pharmacy Information [facility] #36020: [address] [place], [place] [id number] [phone] Allergies No Known Medication Allergies Problems Ongoing [...] including vitamins, herbs, eye drops, creams, and dhyc-pbo-ompvvmd medicines. ??? Any problems you or family [...] (incontinen (more content not included)... Normal [facility] Urology Office/Clinic Noteon 12-20-2024 Urology [...] for HG. CT AP w/wo con 12/14/24 [facility] - A 6.9 x 6.3 x 6.0 [...] immediate management. 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 SEs discussed. Sent to [facility]. 3. 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 Started Cipro 500 mg bid x 1 month with 1 refill. Still taking Cipro 500 mg bid. 4. Constipation (K59.00: Constipation, unspecified) Has started taking fiber. Oto flomax helped with his constipation. Educated pt on bladder/bowel regimen. -Aggressive bowel management Follow-up With When Contact Information KARLA JAMES, Nikolai Berry, URL [facility] [address], [place] [address]- Additional Instructions: f/u pending referral to surgeon [...] with obst (more content not included)... Normal [facility] Comment on above: Result Comment: Elec tronically Signed By: Nikolai ACOSTA MD\.br\Date and Time Signed: 12/20/24 08:57 EDT\.br\Electronically Co-Signed By: Janeth Huynh\.br\Date and Time Co-Signed: 12/20/24 08:52 EDT\.br\Electronically Co-Signed By: Janeth Huynh\.br\Date and Time Co-Signed: 12/20/24 08:55 EDT Jaren 11-11-2024 L --- Specimen: [id number] Received: 11/12/24 Status: ARABELLA Terry Num: [id number] Spec Type: Cytology Subm Dr: Nikolai Acosta MD Tissues: A URINECYTO (URINE) Procedures: Cyto Prepstain, PAPSTN Age/ Patient Sex Location Account Attending Physician Skyler Le 64/M [facility] [id number] Nikolai Acosta MD SPEC NUM: [id number] RECD: 11/12/24 STATUS: ARABELLA TERRY NUM: [id number] [place]: 11/11/[address]: Nikolai Acosta MD ENTERED: 11/12/[address]: SPEC TYPE: Cytology DEPT: [facility] NCYT ENTERED BY: [id number] RECV BY: [id number] ORDERED: Cyto Prepstain, PAPSTN ORDERED: Cyto Prepstain, PAPSTN Pathological Diagnosis Cystoscopy urine: Negative for high-grade urothelial carcinoma. Clinical Information Cystoscopy Gross Description Received fresh is 60 ml pale yellow clear unfixed fluid for cytology said to have been obtained as Urine. ThinPrep preparations are prepared for microscopic examination. (/oh) CPT Codes 46250 Specimen: [id number] Received: 11/12/24 Status: AURORAMalcolm Terry Num: [id number] Spec Type: Cytology Subm Dr: Nikolai Acosta MD Tissues: A URINECYTO (URINE) Procedures: Cyto Prepstain, PAPSTN Patient: Skyler Le [id number] (Continued) Signed (signature on file) Phylicia Altman MD 11/12/24 1522 Normal [facility] C Urineon 10-26-2024 Bacteria identified Cx Nom (U) Microbiology PROCEDURE: Urine Culture [R1] SOURCE: U Random BODY SITE: COLLECTED DATE/TIME: 10/24/2024 09:29 EST RECEIVED DATE/TIME: 10/24/2024 17:59 EST START DATE/TIME: 10/24/2024 17:59 EST FREE TEXT SOURCE: TIARA PAYTON, NIRMALA MENJIVAR PA-C, NIRMALA Madison FINAL REPORTS Final Report [] Verified Date/Time: 10/26/2024 09:28 EST No growth at 2 days. Performing Locations R1: This test was performed at: [facility], [address] [place] [address], [facility] , , Normal [facility] Comment on above: Performed By: #### 2 [id number] #### [facility] [address] [place] [address] Urology Office/Clinic Noteon 10-24-2024 Urology Office/Clinic Note [...] E&M of New Patient Moderate 45-59 Min 68847 Urine Culture 2. Constipation (K59.00: Constipation, unspecified) Recommended aggressive bowel management. 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 [...] 1 tab (more content not included)... Normal [facility] Comment on above: Result Comment: Elec tronically Signed By: NIRMALA MENJIVAR PA-C\.br\Date and Time Signed: 10/24/24 13:53 EST Urine Cultureon 10-08-2024 Bacteria identified Cx Nom (U) No Growth 2 Days PERFORMED BY: [facility] [address] [place] [address] PATHOLOGIST [employer] PHYLICIA ALTMAN M.D. Normal [facility] Comment on above: Performed By: #### C UU #### [address] Urine cultureOrdered By: Suzanne Davalos on 10-08-2024 Bacteria identified Cx Nom (U) Urine culture [facility] CBC AUTO DIFFon 08-29-2022 BASO # 0.1 103/ul Normal 0.0-0.1 [facility] Comment on above: Performed By: #### C BC #### [facility] [address] [place] [address] Dr. Med Angulo Basophils/100 WBC (Bld) 0.6 % Normal 0.2-2.0 [facility] Comment on above: Performed By: #### C BC #### [facility] [address] [address] [address] Med Angulo EO # 0.2 103/ul Normal 0.0-0.7 [facility] Comment on above: Performed By: #### C BC #### [facility] [address] [address] [address] Med Angulo Eosinophils/100 WBC (Bld) 1.3 % Normal 0.9-7.0 [facility] Comment on above: Performed By: #### C BC #### [facility] [address] [address] [address] Med Angulo Erythrocyte distribution width (RBC) [Ratio] 13.8 % Normal 11.0-15.0 [facility] Comment on above: Performed By: #### C BC #### [facility] [address] [place] [address] Dr. Med Angulo Hematocrit (Bld) [Volume fraction] 40.6 % Critically low 42.0-54.0 [facility] Comment on above: Performed By: #### C BC #### [facility] [address] [address] [address] Med Angulo Hemoglobin (Bld) [Mass/Vol] 13.7 g/dL Critically low 14.0-18.0 [facility] Comment on above: Performed By: #### C BC #### [facility] [address] [place] [address] Dr. Med Angulo IG # 0.13 10e3/ul Critically high 0.00-0.03 [facility] Comment on above: Performed By: #### C BC #### [facility] [address] [place] [address] Dr. Med Angulo IG % 1.0 % Critically high 0.0-0.5 [facility] Comment on above: Performed By: #### C BC #### [facility] [address] [place] [address] Dr. Med Angulo LYMPH # 2.1 103/ul Normal 1.2-3.8 [facility] Comment on above: Performed By: #### C BC #### [facility] [address] [place] [address] Dr. Med Angulo Lymphocytes/100 WBC (Bld) 16.9 % Critically low 20.5-60.0 [facility] Comment on above: Performed By: #### C BC #### [facility] [address] [place] [address] Dr. Med Angulo MANUAL DIFF REQ NO Normal [facility] Comment on above: Performed By: #### C BC #### [facility] [address] [place] [address] Dr. Med Angulo MCH (RBC) [Entitic mass] 28.7 pg Normal 25.9-34.0 [facility] Comment on above: Performed By: #### C BC #### [facility] [address] [place] [address] Dr. Med Angulo MCHC (RBC) [Mass/Vol] 33.7 g/dL Normal 29.9-35.2 [facility] Comment on above: Performed By: #### C BC #### [facility] [id number] Med Angulo MCV (RBC) [Entitic vol] 85.1 fL Normal 80.0-94.0 [facility] Comment on above: Performed By: #### C BC #### [facility] [address] [address] [address] Med Angulo MONO # 0.8 103/ul Normal 0.3-0.8 [facility] Comment on above: Performed By: #### C BC #### [facility] [address] [address] [address] Med Angulo Monocytes/100 WBC (Bld) 6.4 % Normal 1.7-12.0 [facility] Comment on above: Performed By: #### C BC #### [facility] [address] [place] [address] Dr. Med Angulo NEUT # 9.3 103/ul Critically high 1.4-6.5 [facility] Comment on above: Performed By: #### C BC #### [facility] [address] [place] [address] Dr. Med Angulo Neutrophils/100 WBC (Bld) 73.8 % Normal 43.0-75.0 [facility] Comment on above: Performed By: #### C BC #### [facility] [address] [place], [place] [address] Dr. eMd Angulo Platelet mean volume (Bld) [Entitic vol] 9.8 fL Normal 9.5-13.5 [facility] Comment on above: Performed By: #### C BC #### [facility] [address] [place] [address] Dr. Med Angulo PLT 292 103/ul Normal 150-450 [facility] Comment on above: Performed By: #### C BC #### [facility] [address] [place], [place] [address] Dr. Med Angulo RBC 4.77 106/ul Normal 4.70-6.10 [facility] Comment on above: Performed By: #### C BC #### [facility] [address] [place] [address] Dr. Med Angulo WBC 12.6 103/ul Critically high 4.0-11.0 [facility] Comment on above: Performed By: #### C BC #### [facility] [address] [address] [address] Med Angulo GLYCOHEMOGLOBIN A1Con 2021 ADA RECOMMENDATION SEE BELOW Normal [facility] Comment on above: Result Comment: ADA RECOMMENDED LIMIT 4.0 - 6.0 ADA THERAPEUTIC TARGET < 7.0 ACTION SUGGESTED > 7.0 Performed By: #### A 1C #### [facility] [address] [address] [address] Med Angulo Glucose [Mass/Vol] 111 mg/dL Normal [facility] Comment on above: Performed By: #### A 1C #### [facility] [address] [address] [address] Med Angulo HbA1c (Bld) [Mass fraction] 5.5 % Normal 4.5-6.2 [facility] Comment on above: Performed By: #### A 1C #### [facility] [address] [address] [address] Med Angulo LIPID PROFILEon 08-29-2022 CHOL-HDL RATIO NORM SEE BELOW Normal [facility] Comment on above: Result Comment: 3.3 - 4.4 LOW RISK 4.4 - 7.1 AVERAGE RISK 7.1 - 11.0 MODERATE RISK >11.0 HIGH RISK Performed By: #### L IPID, CMP #### [facility] [address] [address] [address] Med Angulo Cholesterol [Mass/Vol] 128 mg/dL Normal <=200 [facility] Comment on above: Performed By: #### L IPID, CMP #### [facility] [address] [address] [address] Med Angulo Cholesterol in HDL [Mass/Vol] 31 mg/dL Critically low 40-60 [facility] Comment on above: Performed By: #### L IPID, CMP #### [facility] [address] [address] [address] Med Angulo Cholesterol in LDL [Mass/Vol] 43.4 mg/dL Normal [facility] Comment on above: Performed By: #### L IPID, CMP #### [facility] [address] [address] [address] Med Angulo Cholesterol.total/Cho lesterol in HDL [Mass ratio] 4.1 {ratio} Normal [facility] Comment on above: Performed By: #### L IPID, CMP #### [facility] [address] [address] [address] Med Angulo HDL NORMAL > or = 60 mg/dl - LO W CARDIOVASCULAR RISK <40 mg/dl - HIGH CARDIOVASCULAR RISK Normal [facility] Comment on above: Performed By: #### L IPID, CMP #### [facility] [address] [address] [address] Med Angulo LDL CALC NORMAL SEE BELOW Normal [facility] Comment on above: Result Comment: <100 mg/dl OPTIMAL 100 - 129 mg/dl NEAR OR ABOVE OPTIMAL 130 - 159 mg/dl BORDERLINE HIGH 160 - 189 mg/dl HIGH >190 mg/dl VERY HIGH Performed By: #### L IPID, CMP #### [facility] [address] [address] [address] Med Angulo Triglyceride [Mass/Vol] 268 mg/dL Critically high <=150 [facility] Comment on above: Performed By: #### L IPID, CMP #### [facility] [address] [address] [address] Med Angulo VLDL CALC 53.6 mg/dL Normal [facility] Comment on above: Performed By: #### L IPID, CMP #### [facility] [address] [address] [address] Med Angulo PROF 14(COMP METB)on 022 Albumin [Mass/Vol] 3.8 g/dL Normal 3.4-5.0 [facility] Comment on above: Performed By: #### L IPID, CMP #### [facility] [address] [address] [address] Med Angulo Albumin/Globulin [Mass ratio] 0.9 {ratio} Normal [facility] Comment on above: Performed By: #### L IPID, CMP #### [facility] [address] [address] [address] Med Angulo ALP [Catalytic activity/Vol] 63 U/L Normal 46-116 [facility] Comment on above: Performed By: #### L IPID, CMP #### [facility] [address] [address] [address] Med Angulo ALT [Catalytic activity/Vol] 60 U/L Normal 16-63 [facility] Comment on above: Performed By: #### L IPID, CMP #### [facility] [address] [address] [address] Med Angulo Anion gap [Moles/Vol] 12.5 mmol/L Normal [facility] Comment on above: Performed By: #### L IPID, CMP #### [facility] [address] [address] [address] Med Angulo AST [Catalytic activity/Vol] 40 U/L Critically high 15-37 [facility] Comment on above: Performed By: #### L IPID, CMP #### [facility] [address] [address] [address] Med Angulo Bilirubin [Mass/Vol] 0.5 mg/dL Normal 0.2-1.0 [facility] Comment on above: Performed By: #### L IPID, CMP #### [facility] [address] [address] [address] Med Angulo Calcium [Mass/Vol] 9.2 mg/dL Normal 8.5-10.1 [facility] Comment on above: Performed By: #### L IPID, CMP #### [facility] [address] [address] [address] Med Angulo Chloride [Moles/Vol] 99 mmol/L Normal 98-107 [facility] Comment on above: Performed By: #### L IPID, CMP #### [facility] [address] [address] [address] Med Angulo CO2 [Moles/Vol] 29.9 mmol/L Normal 21.0-32.0 [facility] Comment on above: Performed By: #### L IPID, CMP #### [facility] [address] [address] [address] Med Angulo Creatinine [Mass/Vol] 1.83 mg/dL Critically high 0.70-1.30 [facility] Comment on above: Performed By: #### L IPID, CMP #### [facility] [address] [place] [address] Dr. Med Angulo EGFR-AF SAO TOMEAN 46 mL/min/1.73m2 Critically low >=60 [facility] Comment on above: Performed By: #### L IPID, CMP #### [facility] [address] [place] [address] Dr. Med Angulo EGFR-NON AF SAO TOMEAN 38 mL/min/1.73m2 Critically low >=60 [facility] Comment on above: Performed By: #### L IPID, CMP #### [facility] [address] [place] [address] Dr. Med Angulo Globulin (S) [Mass/Vol] 4.4 g/dL Normal [facility] Comment on above: Performed By: #### L IPID, CMP #### [facility] [address] [place] [address] Dr. Med Angulo Glucose [Mass/Vol] 95 mg/dL Normal 74-106 [facility] Comment on above: Performed By: #### L IPID, CMP #### [facility] [address] [place] [address] Dr. Med Angulo Potassium [Moles/Vol] 4.4 mmol/L Normal 3.5-5.1 [facility] Comment on above: Performed By: #### L IPID, CMP #### [facility] [address] [place] [address] Dr. Med Angulo Protein [Mass/Vol] 8.2 g/dL Normal 6.4-8.2 [facility] Comment on above: Performed By: #### L IPID, CMP #### [facility] [address] [place] [address] Dr. Med Angulo Sodium [Moles/Vol] 137 mmol/L Normal 136-145 [facility] Comment on above: Performed By: #### L IPID, CMP #### [facility] [address] [place], [place] [address] Dr. Med Angulo Urea nitrogen [Mass/Vol] 26.0 mg/dL Critically high 7.0-18.0 [facility] Comment on above: Performed By: #### L IPID, CMP #### [facility] [address] [place], [place] [address] Dr. Med Angulo Urea nitrogen/Creatinine [Mass ratio] 14.2 mg/mg Normal [facility] Comment on above: Performed By: #### L IPID, CMP #### [facility] [address] [place] [address] [address] [address] Med Angulo Vital Signs Date Time Vital Sign Value Performing Clinician Emmanuelle crowe 05-16-2025 09:07-0400 Body height 178 cm Ernesto Phoenix MD Work Phone: [facility] 05-16-2025 09:07-0400 Body mass index (BMI) [Ratio] 36.9 kg/m2 Ernesto Phoenix MD Work Phone: [facility] 05-16-2025 09:07-0400 Body temperature 97.2 [degF] Ernesto Phoenix MD Work Phone: [facility] 05-16-2025 09:07-0400 Body weight 116.9 kg Ernesto Phoenix MD Work Phone: [facility] 05-16-2025 09:07-0400 Diastolic blood pressure 80 mm[Hg] Ernesto Phoenix MD Work Phone: [facility] 05-16-2025 09:07-0400 Heart rate 51 /min Ernesto Phoenix MD Work Phone: [facility] 05-16-2025 09:07-0400 Respiratory rate 16 /min Ernesto Phoenix MD Work Phone: [facility] 05-16-2025 09:07-0400 SaO2% (BldA) [Mass fraction] 98 % Ernesto Phoenix MD Work Phone: [facility] 05-16-2025 09:07-0400 Systolic blood pressure 139 mm[Hg] Ernesto Phoenix MD Work Phone: [facility] 04-22-2025 15:44-0400 Body height 182.88 cm Jessica Susannah HUSKER OPERATOR-C Work Phone: [facility] 04-22-2025 15:44-0400 Body mass index (BMI) [Ratio] 35.8 kg/m2 Jessica Susannah HUSKER OPERATOR-C Work Phone: [facility] 04-22-2025 15:44-0400 Body weight 119.74 kg Jessica Susannah HUSKER OPERATOR-C Work Phone: [facility] 04-22-2025 15:44-0400 Diastolic blood pressure 73 mm[Hg] Jessica Susannah HUSKER OPERATOR-C Work Phone: [facility] 04-22-2025 15:44-0400 Heart rate 45 /min Jessica Susannah HUSKER OPERATOR-C Work Phone: [facility] 04-22-2025 15:44-0400 Respiratory rate 16 /min Jessica Susannah HUSKER OPERATOR-C Work Phone: [facility] 04-22-2025 15:44-0400 SaO2% (BldA) [Mass fraction] 98 % Jessica Susannah HUSKER OPERATOR-C Work Phone: [facility] 04-22-2025 15:44-0400 Systolic blood pressure 151 mm[Hg] Jessica Susannah HUSKER OPERATOR-C Work Phone: [facility] 04-18-2025 09:33-0400 Body height 177 cm Ernesto Phoenix MD Work Phone: [facility] Comment on above: no shoes verified by 2 04-18-2025 09:33-0400 Body mass index (BMI) [Ratio] 38.59 kg/m2 Ernesto Phoenix MD Work Phone: [facility] 04-18-2025 09:33-0400 Body temperature 97.3 [degF] Ernesto Phoenix MD Work Phone: [facility] 04-18-2025 09:33-0400 Body weight 120.9 kg Ernesto Phoenix MD Work Phone: [facility] 04-18-2025 09:33-0400 Diastolic blood pressure 58 mm[Hg] Ernesto Phoenix MD Work Phone: [facility] 04-18-2025 09:33-0400 Heart rate 52 /min Ernesto Phoenix MD Work Phone: [facility] 04-18-2025 09:33-0400 Respiratory rate 16 /min Ernesto Phoenix MD Work Phone: [facility] 04-18-2025 09:33-0400 SaO2% (BldA) [Mass fraction] 97 % Ernesto Phoenix MD Work Phone: [facility] 04-18-2025 09:33-0400 Systolic blood pressure 124 mm[Hg] Ernesto Phoenix MD Work Phone: [facility] 04-09-2025 12:55-0400 Body height 178 cm Jeannine Young MD Work Phone: [facility] 04-09-2025 12:55-0400 Body mass index (BMI) [Ratio] 38.69 kg/m2 Jeannine Young MD Work Phone: [facility] 04-09-2025 12:55-0400 Body temperature 97.2 [degF] Jeannine Young MD Work Phone: [facility] 04-09-2025 12:55-0400 Body weight 122.6 kg Jeannine Young MD Work Phone: [facility] 04-09-2025 12:55-0400 Diastolic blood pressure 53 mm[Hg] Jeannine Young MD Work Phone: [facility] 04-09-2025 12:55-0400 Heart rate 44 /min Jeannine Young MD Work Phone: [facility] Comment on above: md notified 04-09-2025 12:55-0400 Respiratory rate 20 /min Jeannine Young MD Work Phone: [facility] 04-09-2025 12:55-0400 SaO2% (BldA) [Mass fraction] 98 % Jeannine Young MD Work Phone: [facility] 04-09-2025 12:55-0400 Systolic blood pressure 123 mm[Hg] Jeannine Young MD Work Phone: [facility] 04-07-2025 13:35-0400 Body mass index (BMI) [Ratio] 36.65 kg/m2 Ernesto Phoenix MD Work Phone: [facility] 04-07-2025 13:35-0400 Body temperature 97 [degF] Ernesto Phoenix MD Work Phone: [facility] 04-07-2025 13:35-0400 Body weight 122.6 kg Ernesto Phoenix MD Work Phone: [facility] 04-07-2025 13:35-0400 Diastolic blood pressure 79 mm[Hg] Ernesto Phoenix MD Work Phone: [facility] 04-07-2025 13:35-0400 Heart rate 43 /min Ernesto Phoenix MD Work Phone: [facility] 04-07-2025 13:35-0400 Respiratory rate 18 /min Ernesto Phoenix MD Work Phone: [facility] 04-07-2025 13:35-0400 SaO2% (BldA) [Mass fraction] 99 % Ernesto Phoenix MD Work Phone: [facility] 04-07-2025 13:35-0400 Systolic blood pressure 119 mm[Hg] Ernesto Phoenix MD Work Phone: [facility] 03-18-2025 15:57-0400 Body height 182.9 cm Ernesto Phoenix MD Work Phone: [facility] 03-18-2025 15:57-0400 Body mass index (BMI) [Ratio] 36.26 kg/m2 Ernesto Phoenix MD Work Phone: [facility] 03-18-2025 15:57-0400 Body temperature 97 [degF] Ernesto Phoenix MD Work Phone: [facility] 03-18-2025 15:57-0400 Body weight 121.3 kg Ernesto Phoenix MD Work Phone: [facility] 03-18-2025 15:57-0400 Diastolic blood pressure 74 mm[Hg] Ernesto Phoenix MD Work Phone: [facility] 03-18-2025 15:57-0400 Heart rate 43 /min Ernesto Phoenix MD Work Phone: [facility] 03-18-2025 15:57-0400 Respiratory rate 16 /min Ernesto Phoenix MD Work Phone: [facility] 03-18-2025 15:57-0400 SaO2% (BldA) [Mass fraction] 100 % Ernesto Phoenix MD Work Phone: [facility] 03-18-2025 15:57-0400 Systolic blood pressure 144 mm[Hg] Ernesto Phoenix MD Work Phone: [facility] 02-27-2025 11:00-0400 SaO2% (BldA) [Mass fraction] 100 % [facility] Comment on above: Order Comment: Specimen Type: ARTERIAL B LOOD SPECIMEN Ordering Facility: [facility] Address: [address] [place], [place] [address] [address] Performed By: #### A LLBG #### [facility] [place] [id number] [id number] [facility] 02-27-2025 10:07-0400 SaO2% (BldA) [Mass fraction] 99 % [facility] Comment on above: Order Comment: Specimen Type: ARTERIAL B LOOD SPECIMEN Ordering Facility: [facility] Address: [address] [place] [address] Performed By: #### A LLBG #### [facility] [place] [id number] [place] [address] 02-27-2025 09:07-0400 SaO2% (BldA) [Mass fraction] 100 % [facility] Comment on above: Order Comment: Specimen Type: ARTERIAL B LOOD SPECIMEN Ordering Facility: [facility] Address: [address] [place] [address] Performed By: #### A LLBG #### [facility] [place] [id number] [address] [place] [address] 02-17-2025 09:13-0400 Body temperature 98.4 [degF] Chair Wily Work Phone: [facility] 02-17-2025 09:13-0400 Diastolic blood pressure 80 mm[Hg] Chair Forsyth Work Phone: [facility] 02-17-2025 09:13-0400 Heart rate 63 /min Chair Forsyth Work Phone: [facility] 02-17-2025 09:13-0400 Respiratory rate 16 /min Chair Forsyth Work Phone: [facility] 02-17-2025 09:13-0400 SaO2% (BldA) [Mass fraction] 98 % Chair Forsyth Work Phone: [facility] 02-17-2025 09:13-0400 Systolic blood pressure 136 mm[Hg] Chair Wily Work Phone: [facility] 02-07-2025 13:47-0400 Body height 182.9 cm Pacc 2 Work Phone: [facility] 02-07-2025 13:47-0400 Body mass index (BMI) [Ratio] 37.3 kg/m2 Pacc 2 Work Phone: [facility] 02-07-2025 13:47-0400 Body temperature 98.49 [degF] Pacc 2 Work Phone: [facility] 02-07-2025 13:47-0400 Body weight 124.74 kg Pacc 2 Work Phone: [facility] 02-07-2025 13:47-0400 Diastolic blood pressure 72 mm[Hg] Pacc 2 Work Phone: [facility] 02-07-2025 13:47-0400 Heart rate 48 /min Pacc 2 Work Phone: [facility] 02-07-2025 13:47-0400 Respiratory rate 16 /min Pacc 2 Work Phone: [facility] 02-07-2025 13:47-0400 SaO2% (BldA) [Mass fraction] 99 % Pacc 2 Work Phone: [facility] 02-07-2025 13:47-0400 Systolic blood pressure 144 mm[Hg] Pacc 2 Work Phone: [facility] 01-03-2025 14:37-0400 Diastolic blood pressure 70 mm[Hg] Bing Arvizu MD Work Phone: [facility] 01-03-2025 14:37-0400 Heart rate 58 /min Bing Arvizu MD Work Phone: [facility] 01-03-2025 14:37-0400 Systolic blood pressure 149 mm[Hg] Bing Arvizu MD Work Phone: [facility] 10-24-2024 08:56-0500 Blood Pressure Location NIRMALA MENJIVAR [facility] 10-24-2024 08:56-0500 Body temperature 98.6 [degF] NIRMALA MENJIVAR [facility] 10-24-2024 08:56-0500 Diastolic blood pressure 70 mm[Hg] NIRMALA MENJIVAR [facility] 10-24-2024 08:56-0500 Heart rate 75 /min NIRMALA MENJIVAR [facility] 10-24-2024 08:56-0500 Respiratory rate 16 /min NIRMALA MENJIVAR [facility] 10-24-2024 08:56-0500 Systolic blood pressure 138 mm[Hg] NIRMALA MENJIVAR [facility] Encounters Encounter Date Encounter Type Care Provider Facility Start: 09-26-2025 ambulatory Nikolai Montano ty:[facility] Start: 05-20-2025 End: 05-23-2025 ambulatory Tamika Madison [facility] Work Phone: [facility] Comment on above: Free Drug Approval!! !! Start: 05-20-2025 End: 05-23-2025 E-mail encounter from caregiver Tamika DiamondRyanne [facility]ly [facility] Work Phone: [facility] Start: 05-20-2025 End: 05-20-2025 Telephone encounter Tamika Nathan [facility] Work Phone: [facility] Comment on above: Medication Assistanc e Program (Lenvima free drug application approved) Start: 05-16-2025 End: 05-16-2025 Office outpatient visit 15 minutes Ernesto Phoenix MD Work Phone: Hematology/Oncology Comment on above: Renal cell carcinoma of left kidney (HCC) (Primary Dx) Start: 05-16-2025 End: 05-16-2025 ambulatory JESSICA DAVALOS Facility:[facility] Start: 05-12-2025 End: 05-12-2025 Telephone encounter Valerie Mosqueda RN Work Phone: Hematology/Oncology Comment on above: Care Coordination (M edication question) Care Coordination (M edication update) Start: 05-09-2025 End: 05-09-2025 ambulatory JESSICA DAVALOS Facility:[facility] Start: 04-22-2025 End: 04-22-2025 ambulatory Jessica Davalos HUSKER OPERATOR-C Work Phone: [facility] [place] Work Phone: Start: 04-22-2025 End: 04-22-2025 Patient encounter carl Urbina MD -[facility] [place] Work Phone: Start: 04-21-2025 End: 04-21-2025 Telephone encounter Stephan Romero RN Work Phone: Hematology/Oncology Comment on above: Care Coordination (C 1D1 Post Treatment Call & Oral Anti-Cancer Agent Follow Up) Start: 04-18-2025 End: 04-18-2025 Telephone encounter Stephan Romero RN Work Phone: Hematology/Oncology Comment on above: Care Coordination (L envatinib Start Date) Start: 04-18-2025 End: 04-18-2025 Nursing evaluation of patient and report Ma Nurse Michael Ellis Work Phone: Hematology/Oncology Comment on above: High risk medication use (Primary Dx); Renal cell carcinoma of left kidney (HCC) Start: 04-18-2025 End: 04-18-2025 Office outpatient visit 25 minutes Ernesto Phoenix MD Work Phone: Hematology/Oncology Comment on above: Renal cell carcinoma of left kidney (HCC) (Primary Dx) Start: 04-18-2025 End: 04-18-2025 ambulatory Stephan Romero RN Work Phone: Hematology/Oncology Comment on above: Oral Anti-cancer Age nt Education (Lenvatinib) 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); Renal cell carcinoma of left kidney (HCC) Start: 04-17-2025 End: 04-17-2025 ambulatory Yesica Kvng BRITO Work Phone: Nutrition Therapy Start: 04-17-2025 End: 04-17-2025 Nutrition therapy Yesica Calderon DARYL Work Phone: Nutrition Therapy Comment on above: Nutrition Assessment Start: 04-17-2025 End: 04-17-2025 ambulatory JESSICAHANK DAVALOS Facility:[facility] Start: 04-15-2025 End: 04-29-2025 Telephone encounter Ernesto Phoenix MD Work Phone: Hematology/Oncology Comment on above: Lab Orders Start: 04-11-2025 End: 04-11-2025 Social Work Myrtle Holland [facility] Hematology/Oncology Start: 04-10-2025 End: 04-14-2025 Telephone encounter Valerie Mosqueda RN Work Phone: Hematology/Oncology Comment on above: Care Coordination (T reatment plan) Medication Authoriza tion (Lenvima) Start: 04-09-2025 End: 04-09-2025 Refill Isabela De La Fuente [facility] Work Phone: [facility] Comment on above: Refill Request 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); Renal cell carcinoma of left kidney (HCC); High risk medication use; Thyroid nodule Start: 04-07-2025 End: 04-07-2025 Chart abstracting Aminata Lake RN Work Phone: Hematology/Oncology Comment on above: Research (IRB [phone] [id number] Informed Consent) Start: 04-07-2025 End: 04-09-2025 Telephone encounter Ernesto Phoenix MD Work Phone: Cancer Appts Comment on above: Referral Information Start: 04-07-2025 End: 04-07-2025 Office outpatient visit 15 minutes Ernesto Phoenix MD Work Phone: Hematology/Oncology Comment on above: Renal cell carcinoma of left kidney (HCC) (Primary Dx) Start: 04-07-2025 End: 04-07-2025 Nursing evaluation of patient and report Valerie Mosqueda RN Work Phone: Hematology/Oncology Comment on above: Renal cell carcinoma of left kidney (HCC) (Primary Dx) Start: 04-07-2025 End: 04-07-2025 ambulatory JESSICA DAVALOS Facility:[facility] Start: 04-02-2025 End: 04-10-2025 Orders Only Tamika Madison [facility] Work Phone: Hematology/Oncology Comment on above: Release back to work letter Medication Update (C abometyx) Nephrology Referral Start: 04-01-2025 End: 04-01-2025 Nursing evaluation of patient and report Valerie Mosqueda RN Work Phone: Hematology/Oncology Comment on above: Encounter for educat ion (Primary Dx); Renal cell carcinoma of left kidney (HCC) Start: 04-01-2025 End: 04-02-2025 ambulatory Ernesto Phoenix MD Work Phone: Hematology/Oncology Comment on above: Fmla paper work Start: 04-01-2025 End: 04-01-2025 Subsequent hospital visit by physician Arrival Time Radiology Work Phone: Radiology [facility] Comment on above: Renal cell carcinoma of left kidney (HCC) [C64.2] Start: 03-28-2025 End: 05-12-2025 Telephone encounter Valerie Mosqueda RN Work Phone: Hematology/Oncology Comment on above: Care Coordination (T reatment prep) Start: 03-20-2025 End: 03-20-2025 Orders Only Tamika Madison [facility] Work Phone: Hematology/Oncology Start: 03-18-2025 End: 03-18-2025 Office outpatient new 60 minutes Ernesto Phoenix MD Work Phone: Hematology/Oncology Comment on above: Renal cell carcinoma of left kidney (HCC) (Primary Dx) Start: 03-18-2025 End: 03-19-2025 ambulatory JESSICAHANK DAVALOS Facility:[facility] Start: 03-14-2025 End: 03-14-2025 ambulatory Nikolaileonela ACOSTA Facility:[facility] Start: 03-14-2025 End: 03-14-2025 Patient encounter procedure Nikolai ACOSTA [facility] Start: 03-12-2025 End: 03-12-2025 Follow-up encounter Bing Arvizu MD Work Phone: Urology Start: 03-12-2025 End: 03-12-2025 Telephone encounter Bing Arvizu MD Work Phone: Urology Start: 03-11-2025 End: 03-11-2025 Telephone encounter Tamanna Zhu DOCTOR OF CHIROP[employer]CTIC.[employer] AND FEATHER DRILLER Work Phone: [facility] Start: 03-10-2025 End: 03-10-2025 Orders Only Tamanna Zajacz DOCTOR OF CHIROPRACTIC.QUARR[employer] PLUG AND FEATHER DRILLER Work Phone: [facility] Comment on above: Hyperkalemia (Primar y Dx) Start: 03-05-2025 End: 03-05-2025 Telephone encounter Bing Arvizu MD Work Phone: Urology Comment on above: Patient Question Start: 03-04-2025 End: 03-04-2025 ambulatory JESSICA DAVALOS Facility:[facility] Start: 02-28-2025 End: 02-28-2025 Orders Only Tamanna Zajacz DOCTOR OF CHIROPRACTIC.[employer] AND FEATHER DRILLER Work Phone: [facility] Comment on above: ODALIS (acute kidney in jury) (Primary Dx) Start: 02-27-2025 End: 02-28-2025 Evaluation and management of inpatient BING ARVIZU Facility:[facility] Start: 02-19-2025 End: 02-19-2025 ambulatory JESSICAHANK DAVALOS Facility:[facility] Start: 02-17-2025 End: 02-17-2025 ambulatory [...] Patient Update Start: 02-07-2025 End: 02-07-2025 ambulatory [facility] Facility:[facility] Start: 02-07-2025 End: 02-07-2025 Admission to establishment [facility] Work Phone: Pre Anesthesia Start: 02-07-2025 End: 02-07-2025 Anesthesia consultation [place] [address] Work Phone: Pre Anesthesia Comment on above: Pre-op evaluation (P rimary Dx); Depression, unspecified depression type; Type 2 diabetes mellitus without complication, unspecified whether nursing home insulin use (HCC); BPH with obstruction/lower urinary tract symptoms; Hypertension, unspecified type; ROSA M (obstructive sleep apnea); Class 2 obesity due to excess calories without serious comorbidity in adult, unspecified BMI Start: 02-07-2025 End: 02-07-2025 Preprocedural examination done [place] [id number] Work Phone: [facility] Start: 02-07-2025 End: 02-07-2025 ambulatory JESSICA Leyla [facility] Facility:[facility] Start: 02-07-2025 Encounter for other preprocedural examination JESSICA SUSANNAH [facility] Start: 01-29-2025 End: 03-31-2025 Follow-up encounter Bing Arvizu MD Work Phone: Urology Start: 01-24-2025 End: 01-24-2025 ambulatory BING ARVIZU Facility:[facility] Start: 01-20-2025 End: 01-20-2025 Orders [...] 12-20-2024 End: 12-20-2024 ambulatory Nikolai ACOSTA Facility:[facility] Start: 11-11-2024 End: 11-11-2024 ambulatory Nikolai Acosta [facility] Work Phone: Start: 11-11-2024 End: 11-11-2024 Departed Referred Jessica Davalos HUSKER OPERATOR-C Work Phone: [facility] Path [facility] Start: 11-11-2024 End: 11-11-2024 ambulatory Nikolai ACOSTA Facility:[id number] Start: 10-24-2024 End: 10-24-2024 Lab Drop off NIRMALA MENJIVAR [facility] Start: 10-24-2024 End: 10-24-2024 ambulatory NIRMALA MENJIVAR Facility:[facility] Start: 10-24-2024 End: 10-24-2024 Patient encounter procedure NIRMALA MENJIVAR [facility] Start: 10-11-2024 ambulatory NIRMALA MENJIVAR Facility :[facility] Start: 10-08-2024 End: 10-08-2024 ambulatory Jessica Orozco Susannah [facility] Work Phone: Start: 10-08-2024 End: 10-08-2024 Departed Referred Jessica Davalos HUSKER OPERATOR-C Work Phone: [facility] Path Spec [facility] Start: 09-03-2022 Encounter for genera l adult medical examination without abnormal findings JESSICA SUSANNAH [facility] Start: 08-29-2022 End: 08-30-2022 ambulatory JESSICA DAVALOS Facility:[facility] Start: 08-29-2022 End: 08-30-2022 Encounter for general adult medical examination without abnormal findings JESSICA DAVALOS Facility:[facility] Procedures Date Procedure Procedure Detail Performing Clinician Start: 04-01-[address] atten uation skull base mid-thigh Ernesto Phoenix MD Work Phone: Start: 04-01-2025 Gluc bld gluc mntr d ev cleared fda spec home use [facility] Provider Start: 02-27-2025 Antibody screen BING ARVIZU Comment on above: Order Comment: Speci men Type: BLOOD SPECIMENOrdering Facility: [facility] Address: [address] [place] [address] Performed By: #### T SCR ####[facility] BLOOD BANKCLIA [id number] [address] Start: 01-24-2025 Antibody screen JESSICA DAVALOS Comment on above: Order Comment: Speci men Type: BLOOD SPECIMENOrdering Facility: [facility] Address: [address] [place] [address] Performed By: #### T SCR ####[facility] BLOOD BANKCLIA [id number] [address] Start: 11-11-2024 Cystoscopy Nikolai SANDERS Start: 10-08-2024 Urine culture Jessica COSBY Work Phone: Colonoscopy NIRMALA MENJIVAR Plan of Treatment Date Care Activity Detail Author Start: 2034 RSV Vaccine (1 - 1-dose 75+ series) RSV Vaccine (1 - 1-dose 75+ series) [facility] Start: 01-04-2028 Diabetes Screening Diabetes Screening [facility] Start: 08-10-2025 Hemoglobin A1c measurement HbA1C [facility] lianne Start: 06-20-2025 End: 06-20-2025 Follow-up encounter 06/20/2025 12:30 PM EDT Visit (SP) Office Hematology/Oncology [id number] [place], [place] [id number] Jeannine Young MD [address] [place], [place] [id number] follow up per pt req Hematology/Oncolo gy Comment on above: follow up per pt req Start: 06-06-2025 End: 06-06-2025 ambulatory 06/06/2025 11:15 AM EDT Results Only [facility] [address] [place] [address] [place] [address] Young [facility] Comment on above: lab for Dr Young Start: 06-04-2025 End: 09-03-2025 CBC W Auto Differential panel - Blood COMPLETE BLOOD COUNT AND DIFFERENTIAL Lab Routine Renal cell carcinoma of left kidney (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) Expected: 06/04/2025 (Approximate), Expires: 09/03/2025 [facility] Comment on above: Expected: 06/04/2025 (Approximate), Expi res: 09/03/2025 Start: 06-04-2025 End: 09-03-2025 Comprehensive metabolic 2000 panel - Serum or Plasma COMPREHENSIVE METABOLIC PANEL Lab Routine Renal cell carcinoma of left kidney (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) Expected: 06/04/2025 (Approximate), Expires: 09/03/2025 [facility] Comment on above: Expected: 06/04/2025 (Approximate), Expi res: 09/03/2025 Start: 06-04-2025 End: 09-03-2025 Thyrotropin [Units/volume] in Serum or Plasma THYROID STIMULATING HORMONE Lab Routine High risk medication use Expected: 06/04/2025 (Approximate), Expires: 09/03/2025 [facility] Comment on above: Expected: 06/04/2025 (Approximate), Expi res: 09/03/2025 Start: 06-04-2025 End: 09-03-2025 Thyroxine (T4) free [Mass/volume] in Serum or Plasma T4 FREE/FREE THYROXINE Lab Routine High risk medication use Expected: 06/04/2025 (Approximate), Expires: 09/03/2025 [facility] Comment on above: Expected: 06/04/2025 (Approximate), Expi res: 09/03/2025 Start: 06-02-2025 Influenza vaccination [facility] Start: 05-30-2025 End: 08-29-2025 CBC W Auto Differential panel - Blood COMPLETE BLOOD COUNT AND DIFFERENTIAL Lab Routine Renal cell carcinoma of left kidney (HCC) Expected: 05/30/2025 (Approximate), Expires: 08/29/2025 [facility] Work Phone: Comment on above: Expected: 05/30/2025 (Approximate), Expi res: 08/29/2025 Start: 05-30-2025 End: 08-29-2025 Comprehensive metabolic 2000 panel - Serum or Plasma COMPREHENSIVE METABOLIC PANEL Lab Routine Renal cell carcinoma of left kidney (HCC) Expected: 05/30/2025 (Approximate), Expires: 08/29/2025 [facility] Comment on above: Expected: 05/30/2025 (Approximate), Expi res: 08/29/2025 Start: 05-30-2025 End: 08-29-2025 Magnesium [Mass/volume] in Serum or Plasma MAGNESIUM Lab Routine Renal cell carcinoma of left kidney (HCC) Expected: 05/30/2025 (Approximate), Expires: 08/29/2025 [facility] Comment on above: Expected: 05/30/2025 (Approximate), Expi res: 08/29/2025 Start: 05-30-2025 End: 11-28-2025 Protein/Creatinine [Mass Ratio] in Urine PROTEIN / CREATININE RATIO Lab Routine Renal cell carcinoma of left kidney (HCC) Expected: 05/30/2025 (Approximate), Expires: 08/29/2025 [facility] Comment on above: Expected: 05/30/2025 (Approximate), Expi res: 08/29/2025 Start: 05-30-2025 End: 08-29-2025 URINALYSIS, DIPSTICK ONLY URINALYSIS, DIPSTICK ONLY Lab Routine Renal cell carcinoma of left kidney (HCC) Expected: 05/30/2025 (Approximate), Expires: 08/29/2025 [facility] Comment on above: Expected: 05/30/2025 (Approximate), Expi res: 08/29/2025 Start: 05-30-2025 End: 05-30-2025 Follow-up encounter Hematology/Oncolo gy Comment on above: 3 week lab follow up chemotx Keytruda Start: 05-30-2025 End: 05-30-2025 Patient encounter procedure 05/30/2025 9:00 AM EDT Office Visit [facility] [address] [place] [address] 3 week lab follow up chemotx Keytruda [facility] Comment on above: 3 week lab follow up chemotx Keytruda Start: 05-16-2025 End: 05-16-2025 Follow-up encounter 05/16/2025 9:20 AM EDT Visit (SP) Office Hematology/Oncology [address] [facility] [place] [address] Ernesto Phoenix MD [address] [facility] [place] [address] 1 week followup with lab/ Tox check Hematology/Oncolo gy Comment on above: 1 week followup with lab/ Tox check Start: 05-16-2025 End: 05-16-2025 Patient encounter procedure 05/16/2025 9:00 AM EDT Office Visit [facility] [address] [facility] [place] [address] 1 week followup with lab/ Tox check [facility] Comment on above: 1 week followup with lab/ Tox check Start: 05-09-2025 End: 08-08-2025 CBC W Auto Differential panel - Blood COMPLETE BLOOD COUNT AND DIFFERENTIAL Lab Routine Renal cell carcinoma of left kidney (HCC) Expected: 05/09/2025 (Approximate), Expires: 08/08/2025 [facility] Comment on above: Expected: 05/09/2025 (Approximate), Expi res: 08/08/2025 Start: 05-09-2025 End: 08-08-2025 Comprehensive metabolic 2000 panel - Serum or Plasma COMPREHENSIVE METABOLIC PANEL Lab Routine Renal cell carcinoma of left kidney (HCC) Expected: 05/09/2025 (Approximate), Expires: 08/08/2025 [facility] Comment on above: Expected: 05/09/2025 (Approximate), Expi res: 08/08/2025 Start: 05-09-2025 End: 08-08-2025 Magnesium [Mass/volume] in Serum or Plasma MAGNESIUM Lab Routine Renal cell carcinoma of left kidney (HCC) Expected: 05/09/2025 (Approximate), Expires: 08/08/2025 [facility] Comment on above: Expected: 05/09/2025 (Approximate), Expi res: 08/08/2025 Start: 05-09-2025 End: 05-09-2025 Follow-up encounter Hematology/Oncolo gy Comment on above: 3 week lab follow up chemotx Keytruda Start: 05-09-2025 End: 05-09-2025 Patient encounter procedure 05/09/2025 9:00 AM EDT Office Visit [facility] [address] [place] [address] [place] [address] 3 week lab follow up chemotx Keytruda [facility] Comment on above: 3 week lab follow up chemotx Keytruda Start: 05-02-2025 End: 04-18-2026 Echocardiography ECHO Cardiology Routine Renal cell carcinoma of left kidney (HCC) Expected: 05/02/2025 (Approximate), Expires: 04/18/2026 [facility] Work Phone: Comment on above: Expected: 05/02/2025 (Approximate), Expi res: 04/18/2026 Start: 04-18-2025 End: 04-18-2025 Nursing evaluation of patient and report 04/18/2025 10:00 AM EDT Nurse Visit Hematology/Oncology [address] [place] [address] Stephan Romero, RN [address] [place] [address] Chemo Education Added This Date Per Karena Romero Phone Encounter Hematology/Oncolo gy Comment on above: Chemo Education Added This Date Per Gil Romero Phone Encounter Start: 04-18-2025 End: 04-18-2025 Follow-up encounter Hematology/Oncolo gy Comment on above: lab follow up and Opdivo lab follow up and Ke ytruda Start: 04-18-2025 End: 04-18-2025 Patient encounter procedure [facility] Comment on above: lab follow up and Opdivo lab follow up and Ke ytruda Start: 04-17-2025 End: 04-17-2025 Nutrition therapy 04/17/2025 1:30 PM EDT Education Nutrition Therapy [address] [place] [address] Yesica Calderon, RD [address] [place] [address] Renal cell carcinoma of left kidney (HCC) [C64.2] Nutrition Therapy Comment on above: Renal cell carcinoma of left kidney (HCC ) [C64.2] Start: 04-14-2025 End: 04-14-2025 Follow-up encounter Hematology/Oncolo gy Comment on above: lab follow up and Opdivo Start: 04-14-2025 End: 04-14-2025 Patient encounter procedure 04/14/2025 8:30 AM EDT Office Visit [facility] [address] [place] [address] lab follow up and Opdivo [facility] Comment on above: lab follow up and Opdivo Start: 04-07-2025 End: 07-07-2025 [facility] Work Phone: Comment on above: Expected: 04/07/2025, Expires: Start: 04-07-2025 End: 04-07-2025 Follow-up encounter Hematology/Oncolo gy Comment on above: Follow up with lab chemotx Keytruda Start: 04-07-2025 End: 04-07-2025 Patient encounter procedure 04/07/2025 1:15 PM EDT Office Visit [facility] [address] [place] [address] [place] [address] Follow up with lab chemotx Keytruda [facility] Comment on above: Follow up with lab chemotx Keytruda Start: 04-07-2025 End: 04-07-2025 Nursing evaluation of patient and report 04/07/2025 1:00 PM EDT Nurse Visit Hematology/Oncology [address] [place] [address] Valerie Mosqueda RN [address] [place] [address] Chemo Ed opdivo plus cabozantinib Hematology/Oncolo gy Comment on above: Chemo Ed opdivo plus cabozantinib Start: 04-01-2025 End: 04-17-2026 MR Brain WO contrast MRI BRAIN WO IVCON Radiology Routine Renal cell carcinoma of left kidney (HCC) Expected: 04/01/2025 (Approximate), Expires: 04/17/2026 [facility] Comment on above: Expected: 04/01/2025 (Approximate), Expi res: 04/17/2026 Start: 04-01-2025 End: 04-17-2026 PET+CT Guidance for localization of tumor of Skull base to mid-thigh-- W [id number] IV NM PET/CT SKULL-THIGH INITIAL Radiology Routine Renal cell carcinoma of left kidney (HCC) Expected: 04/01/2025, Expires: 04/17/2026 [facility] Work Phone: Comment on above: Expected: 04/01/2025, Expires: Start: 04-01-2025 End: 04-01-2025 Nursing evaluation of patient and report 04/01/2025 11:00 AM EDT Nurse Visit Hematology/Oncology [address] [place] [address] Valerie Mosqueda, RN [address] [place] [address] Chemo ed Keytruda Hematology/Oncolo gy Comment on above: Chemo ed Keytruda Start: 04-01-2025 End: 04-01-2025 Patient encounter procedure 04/01/2025 8:45 AM EDT Appointment Radiology Pet CT [address] [place] [address] Comment on above: Pet scan Start: 03-17-2025 End: 03-17-2025 ambulatory 03/17/2025 1:00 PM EDT Visit (SP) Office Hematology/Oncology [address] [place] [address] Ernesto Phoenix MD [address] [place] [address] renal cell carcinoma Hematology/Oncolo gy Comment on above: renal cell carcinoma Start: 03-10-2025 End: 06-09-2025 Renal function 2000 panel - Serum or Plasma [facility] Work Phone: Comment on above: Expected: 03/10/2025, Expires: Start: 02-28-2025 End: 05-30-2025 Renal function 2000 panel - Serum or Plasma RENAL FUNCTION PANEL Lab Routine ODALIS (acute kidney injury) Expected: 02/28/2025, Expires: 05/30/2025 [facility] Work Phone: Comment on above: Expected: 02/28/2025, Expires: Start: 02-27-2025 End: 02-27-2025 Admission to same day surgery center 02/27/2025 11:30 AM EDT - 02/27/2025 3:15 PM EDT Surgery [facility] Operating Room [address] [place] [address] Bing Arvizu MD [address] [id number] ROBOTIC LAPAROSCOPIC NEPHRECTOMY PARTIAL [facility] Operating Room Comment on above: ROBOTIC LAPAROSCOPIC NEPHRECTOMY PARTIAL Start: 02-27-2025 End: 02-27-2025 Laparoscopy surg partial nephrectomy ROBOTIC LAPAROSCOPIC NEPHRECTOMY PARTIAL Neoplasm of uncertain behavior of left kidney 02/27/2025 11:30 AM EDT [facility] Start: 02-27-2025 Subsequent hospital visit by physician 02/27/2025 11:30 AM EDT Hospital Encounter [facility] Operating Room [address] [place] [address] Bing Arvizu MD [address] [place] [address] 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] [facility] Operating Room Comment on above: Neoplasm of uncertain behavior of left k idney [D41.02] Start: 02-27-2025 End: 02-27-2025 Admission to same day surgery center 02/27/2025 7:30 AM EDT - 02/27/2025 11:15 AM EDT Surgery [facility] Operating Room [address] [place] [address] Bing Arvizu MD [address] [place] [address] ROBOTIC LAPAROSCOPIC NEPHRECTOMY PARTIAL [facility] Operating Room Comment on above: ROBOTIC LAPAROSCOPIC NEPHRECTOMY PARTIAL Start: 02-27-2025 End: 02-27-2025 Laparoscopy surg partial nephrectomy ROBOTIC LAPAROSCOPIC NEPHRECTOMY PARTIAL Neoplasm of uncertain behavior of left kidney 02/27/2025 7:30 AM EDT [facility] Start: 02-27-2025 Subsequent hospital visit by physician 02/27/2025 7:30 AM EDT Hospital Encounter [facility] Operating Room [address] [place] [address] Bing Arvizu MD [address] [place] [address] 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] [facility] Operating Room Comment on above: Neoplasm of uncertain behavior of left k idney [D41.02] Start: 02-19-2025 End: 02-19-2025 ambulatory 02/19/2025 9:00 AM EDT [facility] Hematology/Oncology [address] [place] [address] VENOFER Hematology/Oncolo gy Comment on above: VENOFER Start: 02-07-2025 End: 05-09-2025 Ferritin [Mass/volume] in Serum or Plasma [facility] Comment on above: Expected: 02/07/2025, Expires: Start: 02-07-2025 End: 05-09-2025 Hemoglobin A1c in Blood [facility] Comment on above: Expected: 02/07/2025, Expires: Start: 02-07-2025 End: 05-09-2025 Iron and Iron binding capacity panel - Serum or Plasma [facility] Work Phone: Comment on above: Expected: 02/07/2025, Expires: Start: 02-07-2025 End: 02-07-2025 Anesthesia consultation 02/07/2025 1:40 PM EDT PAT Pre Anesthesia [address] [place] [address] 2, Pacc Finney [address] [place] [address] DOS 02/27 Pre Anesthesia Comment on above: DOS 02/27 Start: 02-06-2025 Subsequent hospital visit by physician 02/06/2025 Hospital Encounter [facility] Operating Room [address] [place] [address] Bing Arvizu MD [address] [place] [address] 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] [facility] Operating Room Comment on above: Neoplasm of uncertain behavior of left k sagarney [D41.02] Start: 01-24-2025 End: 04-25-2025 CBC panel - Blood by Automated count COMPLETE BLOOD COUNT Lab STAT Renal mass, left Expected: 01/24/2025, Expires: 04/25/2025 [facility] Work Phone: Comment on above: Expected: 01/24/2025, Expires: Start: 01-24-2025 End: 04-25-2025 PT panel - Platelet poor plasma by Coagulation assay PROTHROMBIN TIME Lab STAT Renal mass, left Expected: 01/24/2025, Expires: 04/25/2025 [facility] Comment on above: Expected: 01/24/2025, Expires: Start: 01-24-2025 End: 01-24-2025 Admission to same day surgery center 01/24/2025 11:00 AM EDT - 01/24/2025 12:00 PM EDT Surgery [facility] [address] [place] [address] Bg Navas MD [address], [address] [address] BIOPSY KIDNEY PERCUTANEOUS Angio Comment on above: BIOPSY KIDNEY PERCUTANEOUS Start: 01-24-2025 End: 01-24-2025 Renal biopsy prq trocar/needle BIOPSY KIDNEY PERCUTANEOUS Neoplasm of uncertain behavior of left kidney 01/24/2025 11:00 AM EDT ANGIO HB6 Start: 01-24-2025 Subsequent hospital visit by physician 01/24/2025 11:00 AM EDT Hospital Encounter [facility] [address] [place] [address] Bg Navas MD [address], [address] [id number] 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] [facility] Comment on above: Neoplasm of uncertain behavior of left k idney [D41.02] Start: 01-06-2025 End: 04-07-2025 CBC W Auto Differential panel - Blood COMPLETE BLOOD COUNT AND DIFFERENTIAL Lab Routine Renal mass, left Expected: 01/06/2025, Expires: 04/07/2025 [facility] Work Phone: Comment on above: Expected: 01/06/2025, Expires: Start: 01-06-2025 End: 04-07-2025 PT panel - Platelet poor plasma by Coagulation assay PROTHROMBIN TIME Lab Routine Renal mass, left Expected: 01/06/2025, Expires: 04/07/2025 [facility] Comment on above: Expected: 01/06/2025, Expires: Start: 01-03-2025 End: 04-04-2025 aPTT in Platelet poor plasma by Coagulation assay ACTIVATED PARTIAL THROMBOPLASTIN TIME Lab Routine Neoplasm of uncertain behavior of left kidney Expected: 01/03/2025, Expires: 04/04/2025 [facility] Comment on above: Expected: 01/03/2025, Expires: Start: 01-03-2025 End: 04-04-2025 Bacteria identified in Urine by Culture BACTERIAL CULTURE, URINE Microbiology Routine Neoplasm of uncertain behavior of left kidney Expected: 01/03/2025, Expires: 04/04/2025 [facility] Comment on above: Expected: 01/03/2025, Expires: Start: 01-03-2025 End: 04-04-2025 CBC W Auto Differential panel - Blood COMPLETE BLOOD COUNT AND DIFFERENTIAL Lab Routine Neoplasm of uncertain behavior of left kidney Expected: 01/03/2025, Expires: 04/04/2025 [facility] Work Phone: Comment on above: Expected: 01/03/2025, Expires: Start: 01-03-2025 End: 04-04-2025 Comprehensive metabolic 2000 panel - Serum or Plasma COMPREHENSIVE METABOLIC PANEL Lab Routine Neoplasm of uncertain behavior of left kidney Expected: 01/03/2025, Expires: 04/04/2025 [facility] Comment on above: Expected: 01/03/2025, Expires: Start: 01-03-2025 End: 04-04-2025 CONFIRM BLOOD TYPE CONFIRM BLOOD TYPE Blood Bank Routine Neoplasm of uncertain behavior of left kidney Expected: 01/03/2025, Expires: 04/04/2025 [facility] Comment on above: Expected: 01/03/2025, Expires: Start: 01-03-2025 End: 04-04-2025 PT panel - Platelet poor plasma by Coagulation assay PROTHROMBIN TIME Lab Routine Neoplasm of uncertain behavior of left kidney Expected: 01/03/2025, Expires: 04/04/2025 [facility] Comment on above: Expected: 01/03/2025, Expires: Start: 01-03-2025 End: 04-04-2025 TYPE + SCREEN TYPE + SCREEN Blood Bank Routine Neoplasm of uncertain behavior of left kidney Expected: 01/03/2025, Expires: 04/04/2025 [facility] Comment on above: Expected: 01/03/2025, Expires: Start: 12-31-2024 Covid-19 Vaccine ( season) Covid-19 Vaccine () [facility] Start: 10-08-2024 Bacteria identified in Urine by Culture Urine Culture [facility] Start: 10-08-2024 Urine culture [facility] Start: 10-02-2024 Advance Directive Discussion Advance Directive Discussion [facility] Start: 06-02-2024 Influenza vaccination [facility] Start: 2019 RSV Vaccine (1 - Risk 60-74 years 1-dose series) RSV Vaccine (1 - Risk 60-74 years 1-dose series) [facility] Start: 2014 Prostate specific antigen measurement Prostate Cancer Screening Discussion [facility] Start: 2009 Pneumococcal Vaccine: 50+ (1 of 1 - PCV) Pneumococcal Vaccine: 50+ (1 of 1 - PCV) [facility] Start: 2009 Shingrix Vaccine (1 of 2) Shingrix Vaccine (1 of 2) [facility] Start: 01-06-2004 Prostate specific antigen measurement Prostate Cancer Screening Discussion [facility] Start: 01-06-2004 Screening for malignant neoplasm of colon [facility] Start: 1994 Lipid panel Lipid Screening [facility] Start: 1978 Pneumococcal Vaccine: 50+ (1 of 2 - PCV) Pneumococcal Vaccine: 50+ (1 of 2 - PCV) [facility] Start: 1978 Shingrix Vaccine (1 of 2) Shingrix Vaccine (1 of 2) [facility] Start: 1978 Urine microalbumin profile DTaP,Tdap,Td Vaccine (1 - Tdap) [facility] Start: 1977 Annual PCP Team Chronic Disease Visit Annual PCP Team Chronic Disease Visit [facility] Start: 1977 Anxiety Screening Anxiety Screening [facility] Start: 1977 BP Controlled (<130/80) BP Controlled (<130/80) [facility] Start: 1977 Depression Screening Depression Screening [facility] Start: 1977 Hepatitis B surface antibody level LDL Cholesterol [facility] Start: 1977 Hepatitis C screening Hepatitis C Screening [facility] Start: 1977 HIV screening HIV Screening [facility] Start: 1969 Diabetic foot examination Diabetic Foot Exam [facility] Start: 1969 Glaucoma screening Dilated Retinal Exam [facility] Start: 1969 Hepatitis B screening Urine Albumin:Creatinine Ratio [facility] Start: 01-06-1964 Hemoglobin A1c measurement HbA1C [facility] lianne ECG COMPLETE ECG COMPLETE ECG Routine Pre-op evaluation Depression, unspecified depression type Type 2 diabetes mellitus without complication, unspecified whether 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) BPH with obstruction/lower urinary tract symptoms Hypertension, unspecified type ROSA M (obstructive sleep apnea) Class 2 obesity due to excess calories without serious comorbidity in adult, unspecified BMI Ordered: 02/07/2025 [facility] Comment on above: Ordered: 02/07/2025 End: 04-18-2026 ECG COMPLETE ECG COMPLETE ECG Routine Renal cell carcinoma of left kidney (HCC) 1 Occurrences starting 04/18/2025 until 04/18/2026 [facility] Comment on above: 1 Occurrences starting 04/18/2025 until 04/18/2026 Guidance for percuta neous biopsy of Kidney IMAGING GUIDED BIOPSY RENAL Radiology Routine Neoplasm of uncertain behavior of left kidney Ordered: 01/03/2025 [facility] Work Phone: Comment on above: Ordered: 01/03/2025 Laparoscopy surg par tial nephrectomy ROBOTIC LAPAROSCOPIC NEPHRECTOMY PARTIAL Neoplasm of uncertain behavior of left kidney [facility] End: 05-09-2026 PET+CT Guidance for localization of tumor of Skull base to mid-thigh-- W [id number] IV NM PET/CT SKULL-THIGH SUBSEQUENT Radiology Routine Renal cell carcinoma of left kidney (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) 1 Occurrences starting 04/09/2025 until 05/09/2026 [facility] Work Phone: Comment on above: 1 Occurrences starting 04/09/2025 until 05/09/2026 Renal function 2000 panel - Serum or Plasma [facility] US Kidney - bilateral [facility] End: 05-09-2026 US Thyroid gland US THYROID/PARATHYROID Radiology Routine Thyroid nodule 1 Occurrences starting 04/09/2025 until 05/09/2026 [facility] Comment on above: 1 Occurrences starting 04/09/2025 until 05/09/2026 [facility] Immunizations Immunization Date Immunization Notes Care Provider Fa cilityler 07-02-2024 SARS-CoV-2 (COVID-19 ) mRNA-1273 vaccine NIRMALA TIARA [facility] 06-29-2024 COVID-19 vaccine (NOVAVAX) Ernesto Phoenix MD Work Phone: [facility] 07-30-2022 SARS-CoV-2 (COVID-19 ) [id number] Nikolai ACOSTA [facility] 02-26-2022 SARS-CoV-2 mRNA (pgzxjmqakjw-qgjy-icfp ose) vaccine Nikolai ACOSTA [facility] 08-29-2021 SARS-CoV-2 (COVID-19 ) mRNA BNT-162b2 vax Nikolai ACOSTA [facility] 01-21-2021 SARS-CoV-2 (COVID-19 ) mRNA BNT-162b2 vax Nikolai ACOSTA [facility] 12-31-2020 SARS-CoV-2 (COVID-19 ) mRNA BNT-162b2 vax Nikolai ACOSTA [facility] Payers Date Payer Category Payer Self-pay 2023 Private Health Insurance [id number] 2023 Unknown [id number] 1960 Unknown [id number] 1960 Unknown [id number] 1960 Unknown [id number] 1959 Unknown [id number] 1959 Unknown [id number] 1959 Unknown [id number] 1959 Unknown [id number] 1959 Unknown [id number] Unknown [facility] unable to read card [id number] Social History Date Type Detail Facility Tobacco smoking stat [facility] Unknown if ever smoked [facility] Work Phone: Start: 05-21-2013 End: 10-09-2024 Sex Male (finding) [facility] Start: 1960 Sex Assigned At Male [facility] Start: 10-24-2024 End: 02-07-2025 Tobacco smoking status Never smoked tobacco (finding) [facility] Start: 12-20-2024 Tobacco smoking status Never [facility] Start: 01-03-2025 End: 05-15-2025 Sex Assigned At Male [facility] Start: 01-03-2025 End: 05-15-2025 History of Social function [facility] Start: 1960 Sex assigned at Not on file [facility] Start: 02-07-2025 Tobacco use and exposure Smokeless tobacco non-user [facility] Start: 02-07-2025 End: 05-16-2025 Alcoholic beverage intake Current drinker of alcohol (finding) [facility] Start: 02-07-2025 Alcohol Comment once a year, if that [facility] Start: 03-02-2025 Gender identity Identifies as male gender (finding) [facility] Start: 03-02-2025 Sexual orientation Heterosexual (julito blakely) [facility] Sexual Orientation [facility] Functional Status Date Assessment Result Facility 02-28-2025 Are you deaf, or do you have serious difficulty hearing No 02/28/2025 3:36 PM Latrice Pike RN No [facility] 02-28-2025 Are you blind, or do you have serious difficulty seeing, even when wearing glasses No 02/28/2025 3:36 PM Latrice Pike RN No [facility] 02-28-2025 Do you have serious difficulty walking or climbing stairs No 02/28/2025 3:36 PM Latrice Pike RN No [facility] 02-28-2025 Do you have difficul ty dressing or bathing No 02/28/2025 3:36 PM Latrice Pike, JUANA No [facility] 02-28-2025 Because of a physica l, mental, or emotional condition, do you have difficulty doing errands alone such as visiting a physician's office or shopping No 02/28/2025 3:36 PM Latrice Pike RN No [facility] 10-24-2024 Functional Status N/A [facility] Mental Status Date Assessment Result Facility 02-28-2025 Because of a physica l, mental, or emotional condition, do you have serious difficulty concentrating, remembering, or making decisions No 02/28/2025 3:36 PM Latrice Pike, JUANA No [facility] Clinical Notes 10-24-2024 to 05-20-2025 Telephone Encounter - Tamika Madison [facility] - 05/20/2025 8:36 AM EDTTelephone Encounter - Tamika Madison RPh - 05/20/2025 8:36 AM EDTPatient InstructionsPatient InstructionsPatient Instructions Note Date & Type Note Facility 05-20-2025 Telephone encounter Note [facility] Patient Support fax received stating Skyler has been approved for free Lenvima until 10/01/2025. Tayo Madison PharmD, BCOP [facility] 05-20-2025 Miscellaneous Notes [facility] Patient Support fax received stating Skyler has been approved for free Lenvima until 10/01/2025. Tayo Madison PharmD, BCOP documented in this encounter [facility] 05-16-2025 Instructions Ernesto Phoenix MD - 05/16/2025 9:30 AM EDT Due for cycle 3 keytruda on 05/30/25 F/u in 2 weeks documented in this encounter [facility] 05-16-2025 History of Present illness Narrative Images from the original note were not included. PATIENT NAME: Skyler Le CLINIC NO.: [id number] ATTENDING PHYSICIAN: Ernesto Phoenix MD DATE OF SERVICE: 05/16/[address] Bing Arvizu [id number] [address] [facility] [address] thank you for referring Skyler Le for an opinion regarding Kidney cancer. Some of the elements of this note have been copied from my previous progress note dated 05/09/25. All the information has been reviewed carefully. CHIEF COMPLAINT: Kidney cancer HPI: Skyler Le is a 65 year old year old [...] unusual findings. Doing well - Works in [employer]. - No smoking - No alcohol. - No family h/o cancer. - No major complaints. 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 METASTATIC DISEASE: No metabolically active distant metastases - MRI brain - Normal. - Doing well - No major complaints. 04/18/25: - Seen by on 04/09/25 - Doing well - No major complaints. - Seeing nephrology on Monday05/09/25: - Cycle 2 keytruda today - ECHO showed normal EF on 05/05/25 - Seen by nephrology 1 week ago. 05/16/25: - Doing well - No major complaints - - Nephrology. Next appt in june. - Started lasix on Monday Current Outpatient Medications Medication Sig SPS, WITH SORBITOL, 15-20 gram/60 mL susp suspension TAKE 60ML BY MOUTH FOR 1 DOSE sennosides (SENNA LAX PO) Take by mouth. lenvatinib (LENVIMA) 10 mg/day (10 mg x 1) capsule Take 2 capsules by mouth once daily. inulin (FIBER GUMMIES PO) Take 1 each by mouth two times a day. prochlorperazine (COMPAZINE) 10 mg tablet Take 1 tablet by mouth every 6 hours as needed. ondansetron (ZOFRAN) 8 mg tablet Take 1 tablet by mouth every 8 hours as needed for nausea/vomiting. docusate sodium (COLACE ORAL) Take 1 capsule by mouth two times a day. allopurinol (ZYLOPRIM) 300 mg tablet Take 300 mg by mouth two times a day. acetaminophen (TYLENOL) 325 mg tablet Take 2 [...] numbness or tingling of hands/feet. No weakness. All negative except mentioned in HPI. PHYSICAL EXAMINATION: There were no vitals taken [...] : Deferred LABS: Glucose (mg/dL) Date Value 05/09/2025 91 Potassium (mmol/L) Date Value 05/09/2025 5.4 Sodium (mmol/L) Date Value 05/09/2025 135 Chloride (mmol/L) Date Value 05/09/2025 105 CO2 (mmol/L) Date Value 05/09/2025 20 Creatinine (mg/dL) Date Value 05/09/2025 2.47 BUN (mg/dL) Date Value 05/09/2025 34 Anion Gap (mmol/L) Date Value 05/09/2025 10 Calcium, Total (mg/dL) Date Value 05/09/2025 9.6 Protein, Total (g/dL) Date Value 05/09/2025 7.6 Albumin (g/dL) Date Value 05/09/2025 4.2 Bilirubin, Total (mg/dL) Date Value 05/09/2025 0.3 Alkaline Phosphatase (U/L) Date Value 05/09/2025 89 AST (U/L) Date Value 05/09/2025 13 ALT (U/L) Date Value 05/09/2025 10 WBC Date Value Ref Range Status 05/09/2025 10.53 3.70 - 11.00 k/uL Final RBC Date Value Ref Range Status 05/09/2025 4.33 4.20 - 6.00 m/uL Final Hemoglobin Date Value Ref Range Status 05/09/2025 11.6 (L) 13.0 - 17.0 g/dL Final Hematocrit Date Value Ref Range Status 05/09/2025 34.3 (L) 39.0 - 51.0 % Final MCV Date Value Ref Range Status 05/09/2025 79.2 (L) 80.0 - 100.0 fL Final MCH Date Value Ref Range Status 05/09/2025 26.8 26.0 - 34.0 pg Final MCHC Date Value Ref Range Status 05/09/2025 33.8 30.5 - 36.0 g/dL Final RDW-CV Date Value Ref Range Status 05/09/2025 19.9 (H) 11.5 - 15.0 % Final Platelet Count Date Value Ref Range Status 05/09/2025 227 150 - 400 k/uL Final MPV Date Value Ref Range Status 05/09/2025 9.2 9.0 - 12.7 fL Final Abs Neut Date Value Ref Range Status 05/09/2025 7.54 (H) 1.45 - 7.50 k/uL Final Lymphocytes % Date Value Ref Range Status 05/09/2025 17.3 % Final Abs Lymph Date Value Ref Range Status 05/09/2025 1.82 1.00 - 4.00 k/uL Final Monocytes % Date Value Ref Range Status 05/09/2025 8.3 % Final Abs Lamoure Date Value Ref Range Status 05/09/2025 0.87 (H) <0.87 k/uL Final Abs Eosin Date Value Ref Range Status 05/09/2025 0.17 <0.46 k/uL Final Basophils % Date Value Ref Range Status 05/09/2025 0.9 % Final Abs Baso Date Value Ref Range Status 05/09/2025 0.09 <0.11 k/uL Final PATH: SURGICAL PATHOLOGY: [id number] Order: [id number] Collected 02/27/2025 11:37 AM Status: Final result [...] classification. Block for additional Biomarkers/Molecular studies CCM Karis metastasis: B16 Kidney primary: B6, B20 Synoptic [...] Number of Lymph Nodes with Tumor 2 Karis Site(s) with Tumor Hilar Paraaortic Size of Largest Karis Metastatic Deposit 3.8 cm Extranodal Extension (NASEEM) [...] Cortical cysts IMAGING: ASSESSMENT AND PLAN: Skyler Le is a 65 year old year old male referred to us for left renal cell carcinoma. H/o DM, HTN, BPH, CKD Underwent left robotic radical nephrectomy and robotic retroperitoneal lymph node dissection on 02/27/25. - Final pathology showed renal cell carcinoma sarcomatoid differentiation, grade 4, metastatic renal cell carcinoma in 2 out of 3 lymph nodes, pT3a pN1, stage III. PET scan on 04/01/25 showed Metabolically active enlarged left para-aortic retroperitoneal metastatic node measuring 1.7 x 1.5 cm. - MRI brain is unremarkable. - Initial plan was to start him on adjuvant keytruda but given the PET positive left para aortic metastatic retroperitoneal lymph node and aggressive histology of the nephrectomy specimen, We will do IO/TKI. - Seen by on 04/09/25. Recommended Keytruda Lenvatinib. 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 Renal cell carcinoma of left kidney (HCC) - ICD9: 189.0, ICD10: C64.2 - Recd cycle 2 keytruda last week - Continue Lenvatininb. Started Lenvatinib on 04/18/25. - Tolerating well so far without major toxicity. - ECHO showed normal EF on 05/05/25 - Holter monitor results pending. - Creatinine today is 2.97 . Advised him to inform nephrology today - Advised him to stop lasix 40mg bid for now and inform nephrology - Advised him to stop metformin and discuss with PCP. - We will repeat PET scan next month. - All his questions answered in detail - Follow-up in [address] Bing Arvizu [id number] [facility] [id number] thank you for allowing me to participate in Skyler Le care, if there are any questions or concerns please do not hesitate to contact me at the number below. I spent a total of 20 minutes on the date of the service which included preparing to see the patient, [id number] patient care, completing clinical documentation, obtaining and/or reviewing separately obtained history, performing a medically appropriate examination, counseling and educating the patient/family/caregiver, ordering medications, tests, or procedures, communicating with other HCPs (not separately reported), independently interpreting results (not separately reported), communicating results to the patient/family/caregiver, and care coordination (not separately reported). Ernesto Phoenix MD. Hematology/Medical Oncology CC Wily Freed [phone] CC: documented in this encounter [facility] 05-16-2025 Note HNO ID: [id number] Author: ERNESTO PHOENIX MD Service: ? Author Type: Physician Type: Progress Notes Filed: 05/16/2025 09:45 Note Text: PATIENT NAME: Skyler Le [facility] NO.: [id number] ATTENDING PHYSICIAN: Ernesto Phoenix MD DATE OF SERVICE: 05/16/[address] Bing Arvizu [id number] [facility] [address] thank you for referring Skyler Le for an opinion regarding Kidney cancer. Some of the elements of this note have been copied from my previous progress note dated 05/09/25. All the information has been reviewed carefully. CHIEF COMPLAINT: Kidney cancer HPI: Skyler Le is a 65 year old year old [...] unusual findings. Doing well - Works in [employer] and [employer] room. - No smoking - No alcohol. - No family h/o cancer. - No major complaints. 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 METASTATIC DISEASE: No metabolically active distant metastases - MRI brain - Normal. - Doing well - No major complaints. 04/18/25: - Seen by on 04/09/25 - Doing well - No major complaints. - Seeing nephrology on Monday05/09/25: - Cycle 2 keytruda today - ECHO showed normal EF on 05/05/25 - Seen by nephrology 1 week ago. 05/16/25: - Doing well - No major complaints - - Nephrology. Next appt in june. - Started lasix on Monday Current Outpatient Medications Medication Sig SPS, WITH SORBITOL, 15-20 gram/60 mL susp suspension TAKE 60ML BY MOUTH FOR 1 DOSE sennosides (SENNA LAX PO) Take by mouth. lenvatinib (LENVIMA) 10 mg/day (10 mg x 1) capsule Take 2 capsules by mouth once daily. inulin (FIBER GUMMIES PO) Take 1 each by mouth two times a day. prochlorperazine (COMPAZINE) 10 mg tablet Take 1 tablet by mouth every 6 hours as needed. ondansetron (ZOFRAN) 8 mg tablet Take 1 tablet by mouth every 8 hours as needed for nausea/vomiting. docusate sodium (COLACE ORAL) Take 1 capsule by mouth two times a day. allopurinol (ZYLOPRIM) 300 mg tablet Take 300 mg by mouth two times a day. acetaminophen (TYLENOL) 325 mg tablet Take 2 [...] numbness or tingling of hands/feet. No weakness. All negative except mentioned in HPI. PHYSICAL EXAMINATION: There were no vitals taken for this visit. There were no vitals taken for this visit. Last 3 Encounter Wt Readings: Date: Wt: 02/07/2025 124.7 kg (275 lb) 01/03/2025 124.7 kg (275 lb) General appearance:ECOG PERFORMANCE STATUS: 0- Fully active, able to carry on all pre-disease performance w/o restriction. Patient in NAD. Skin: Skin color, texture, turgor normal. N (more content not included)... [facility] 05-12-2025 Telephone encounter Note 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 His spironolactone was d/c'd and this was changed to lasix. Pt unsure of dose at this time. Valerie Mosqueda RN [facility] Work Phone: 05-12-2025 Miscellaneous Notes 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 His spironolactone was d/c'd and this was changed to lasix. Pt unsure of dose at this time. Valerie Mosqueda RN documented in this encounter [facility] 05-12-2025 Telephone encounter Note OK fine. Thank you [facility] 05-12-2025 Miscellaneous Notes OK fine. Thank you Pt calls stating he has a prescription that he picked up at the pharmacy that he knew nothing about and isn't sure if he's suppose to take it or not. Pt was prescribed sodium polystyrene sulfonate and isn't sure why. Reviewed Dr Ring's progress note from Monday which states he's prescribing for elevated potassium. Encouraged pt to take it this morning. Pt scheduled to come in on Monday for labs and follow up. Pt aware of this and verbalized understanding. Valerie Mosqueda RN documented in this encounter [facility] 05-12-2025 Telephone encounter Note Pt calls stating he has a prescription that he picked up at the pharmacy that he knew nothing about and isn't sure if he's suppose to take it or not. Pt was prescribed sodium polystyrene sulfonate and isn't sure why. Reviewed Dr Ring's progress note from Monday which states he's prescribing for elevated potassium. Encouraged pt to take it this morning. Pt scheduled to come in on Monday for labs and follow up. Pt aware of this and verbalized understanding. Valerie Mosqueda RN [facility] Work Phone: 05-09-2025 Note HNO ID: [id number] Author: BRIGITTE SANTAMARIA RN Service: ? Author Type: Registered Nurse Type: Progress Notes Filed: 05/09/2025 11:18 Note Text: AV aware of CMP, IVF and UA ordered. Script for kayexalate sent to pharmacy. Brigitte Santamaria RN [facility] 05-09-2025 Note HNO ID: [id number] Author: ERNESTO PHOENIX MD Service: ? Author Type: Physician Type: Progress Notes Filed: 05/09/2025 11:02 Note Text: PATIENT NAME: Skyler Le CLINIC NO.: [id number] ATTENDING PHYSICIAN: Ernesto Phoenix MD DATE OF SERVICE: 05/09/[address] Bing Arvizu [id number] [address] [facility] [phone] thank you for referring Skyler Le for an opinion regarding Kidney cancer. Some of the elements of this note have been copied from my previous progress note dated 04/18/25. All the information has been reviewed carefully. CHIEF COMPLAINT: Kidney cancer HPI: Skyler Le is a 65 year old year old [...] unusual findings. Doing well - Works in [employer] and [employer] room. - No smoking - No alcohol. - No family h/o cancer. - No major complaints. 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 METASTATIC DISEASE: No metabolically active distant metastases - MRI brain - Normal. - Doing well - No major complaints. 04/18/25: - Seen by on 04/09/25 - Doing well - No major complaints. - Seeing nephrology on Monday05/09/25: - Cycle 2 keytruda today - ECHO showed normal EF on 05/05/25 - Seen by nephrology 1 week ago. - Current Outpatient Medications Medication Sig sennosides (SENNA LAX PO) Take by mouth. lenvatinib (LENVIMA) 10 mg/day (10 mg x 1) capsule Take 2 capsules by mouth once daily. inulin (FIBER GUMMIES PO) Take 1 each by mouth two times a day. prochlorperazine (COMPAZINE) 10 mg tablet Take 1 tablet by mouth every 6 hours as needed. ondansetron (ZOFRAN) 8 mg tablet Take 1 tablet by mouth every 8 hours as needed for nausea/vomiting. docusate sodium (COLACE ORAL) Take 1 capsule by mouth two times a day. allopurinol (ZYLOPRIM) 300 mg tablet Take 300 mg by mouth two times a day. acetaminophen (TYLENOL) 325 mg tablet Take 2 [...] numbness or tingling of hands/feet. No weakness. All negative except mentioned in HPI. PHYSICAL EXAMINATION: There were no vitals taken [...] No nipple change or discharge. Lymph Nodes: (more content not included)... [facility] 04-21-2025 Telephone encounter Note CYCLE 1/DAY 1 POST TREATMENT CALL ORAL [...] Drinking fluids. Unable to provide an estimated amount, and Bladder/Urinary Changes: None Integument: Itching - Intermittent [...] w/ any questions or concerns and was scheduled NA The following lab tests are due: CBC, [...] instructed to call if unable to comply. Stephan Romero RN [facility] Work Phone: 04-21-2025 Miscellaneous Notes CYCLE 1/DAY 1 POST TREATMENT CALL ORAL [...] Drinking fluids. Unable to provide an estimated amount, and Bladder/Urinary Changes: None Integument: Itching - Intermittent [...] w/ any questions or concerns and was scheduled NA The following lab tests are due: CBC, CMP on 05/09/25 Verified patient is aware of next appointment in the [facility]: Yes. Verified patient verbalized how to [...] instructed to call if unable to comply. Stephan Romero RN documented in this encounter [facility] 04-18-2025 Note HNO ID: [id number] Author: MYRTLE HOLLAND LSW Service: ? Author Type: Box Inspector Type: Progress Notes Filed: 04/18/2025 11:54 Note Text: SOCIAL WORK FOLLOW UP NOTE: [facility] Date of service:04/18/2025 Skyler Calvinuld is being seen for a follow up social work visit. Today's visit includes: patient and daughter TOPICS ADDRESSED: [facility] PLAN: Continue follow up as needed Assigned SW listed in Care Team tab: Yes SW met with Patient in the Infusion Room and completed the [facility] paperwork. SW explained the role of an Oncology SW and provided contact information to reach this SW. Patient denied any immediate psychosocial needs. SW will remain available and will follow up as appropriate. Advance Care Planning Goals of Care Date of Discussion: 04/18/2025 DIscussion Participants: Patient In this encounter: Provided education on Advance Directives and offered a copy of the forms. and Advance Directives are not completed. No interest in completing them at this time. SIGNATURE: RUKHSANA Nicholas PATIENT NAME: Skyler Calvinuld DATE: April 18, 2025 TIME: 11:53 AM PAGER/CONTACT #: RUKHSANA Nicholas [facility] 04-18-2025 History of Present illness Narrative SOCIAL WORK FOLLOW UP NOTE: [facility] Date of service:04/18/2025 Skyler Le is being seen for a follow up social work visit. Today's visit includes: patient and daughter TOPICS ADDRESSED: [facility] PLAN: Continue follow up as needed Assigned SW listed in Care Team tab: Yes SW met with Patient in the Infusion Room and completed the [facility] paperwork. SW explained the role of an Oncology SW and provided contact information to reach this SW. Patient denied any immediate psychosocial needs. SW will remain available and will follow up as appropriate. Advance Care Planning Goals of Care Date of Discussion: 04/18/2025 DIscussion Participants: Patient In this encounter: Provided education on Advance Directives and offered a copy of the forms. and Advance Directives are not completed. No interest in completing them at this time. SIGNATURE: RUKHSANA Nicholas PATIENT NAME: Skyler Le DATE: April 18, 2025 TIME: 11:53 AM PAGER/CONTACT #: RUKHSANA Nicholas documented in this encounter [facility] 04-18-2025 Note HNO ID: [id number] Author: OSMANY ECHEVARRIA MA Service: ? Author Type: Library Helper Type: Progress Notes Filed: 04/18/2025 10:53 Note Text: Patient identified by 2 identifiers. EKG performed as ordered. Osmany Echevarria MA [facility] 04-18-2025 History of Present illness Narrative Patient identified by 2 identifiers. EKG performed as ordered. Osmany Echevarria MA documented in this encounter [facility] 04-18-2025 Telephone encounter Note Patient started/will start taking Lenvatinib on 04/18/25. Stephan Romero, RN [facility] Work Phone: 04-18-2025 Miscellaneous Notes Patient started/will start taking Lenvatinib on 04/18/25. Stephan Romero RN documented in this encounter [facility] 04-18-2025 Note HNO ID: [id number] Author: STEPHAN ROMERO RN Service: ? Author Type: Registered Nurse Type: Progress Notes Filed: 04/18/2025 10:49 Note Text: ORAL ANTI-CANCER AGENTS EDUCATION daughter and patient here today for oral medication education of Lenvatinib for Kidney Cancer Anticipated/Scheduled start date: 04/18/25 READINESS TO LEARN Cognitive Ability: Alert and oriented Motivation to Learn: Interested Family Support: High - Very involved in pt care Instruction Provided to: Patient and Daughter Patient learns best by: Multiple Methods Factors affecting learning: None Physical limitation affecting learning: Sensory Deficit Sight: Corrective lenses AMAYA ASSESSMENT: 1.) Verified that patient knows that the oral agents are for cancer and are taken by mouth. Yes 2.) Medication review completed during visit. Yes 3.) Patient is able to swallow pills. Yes 4.) Patient is able to read the drug label/information. Yes 5.) Patient is able to open the medication bottles and packages. Yes 6.) Has patient taken other pills for cancer? No 7.) Is patient experiencing any symptoms that would affect their ability to keep down pills, for example nausea or vomiting? No 8.) Verified that patient understands prescription delivery, benefit investigation and refill process. Yes - Dispensed from [facility] Repository. DRUG-SPECIFIC EDUCATION: 1.) Verified patient knows the drug name. Yes 2.) Verified patient understands the dose and schedule of oral anti cancer agent. Yes 3.) Verified patient knows what to do if a medication dose is missed. Yes 4.) Verified patient understands where to store the drug. Yes 5.) Verified patient understands potential side effects and how to manage them. Yes 6.)Verified patient understands handling precautions of oral anti cancer agent. Yes 7.) Verified patient was given written instructions and understands when and whom to call with questions. Yes 8.) Verified patient understands where and how to return drug. Yes 9.) Verified patient received drug specific adult education handout: Yes Dr Plata has advised he start at 10 mg/day. Pt aware of dose reduction. EVALUATE: The daughter and patient demonstrated an understanding of all the above education using the teach-back method. Yes Instructed to call us with any questions, concerns, and/or unresolved symptoms. Will continue to follow up and provide reinforcement of teaching topics as needed. Stephan Romero RN [facility] 04-18-2025 History of Present illness Narrative ORAL ANTI-CANCER AGENTS EDUCATION daughter and patient here today for oral medication education of Lenvatinib for Kidney Cancer Anticipated/Scheduled start date: 04/18/25 READINESS TO LEARN Cognitive Ability: Alert and oriented Motivation to Learn: Interested Family Support: High - Very involved in pt care Instruction Provided to: Patient and Daughter Patient learns best by: Multiple Methods Factors affecting learning: None Physical limitation affecting learning: Sensory Deficit Sight: Corrective lenses AMAYA ASSESSMENT: 1.) Verified that patient knows that the oral agents are for cancer and are taken by mouth. Yes 2.) Medication review completed during visit. Yes 3.) Patient is able to swallow pills. Yes 4.) Patient is able to read the drug label/information. Yes 5.) Patient is able to open the medication bottles and packages. Yes 6.) Has patient taken other pills for cancer? No 7.) Is patient experiencing any symptoms that would affect their ability to keep down pills, for example nausea or vomiting? No 8.) Verified that patient understands prescription delivery, benefit investigation and refill process. Yes - Dispensed from [facility] Repository. DRUG-SPECIFIC EDUCATION: 1.) Verified patient knows the drug name. Yes 2.) Verified patient understands the dose and schedule of oral anti cancer agent. Yes 3.) Verified patient knows what to do if a medication dose is missed. Yes 4.) Verified patient understands where to store the drug. Yes 5.) Verified patient understands potential side effects and how to manage them. Yes 6.)Verified patient understands handling precautions of oral anti cancer agent. Yes 7.) Verified patient was given written instructions and understands when and whom to call with questions. Yes 8.) Verified patient understands where and how to return drug. Yes 9.) Verified patient received drug specific adult education handout: Yes Dr Plata has advised he start at 10 mg/day. Pt aware of dose reduction. EVALUATE: The daughter and patient demonstrated an understanding of all the above education using the teach-back method. Yes Instructed to call us with any questions, concerns, and/or unresolved symptoms. Will continue to follow up and provide reinforcement of teaching topics as needed. Stephan Romero, RN documented in this encounter [facility] 04-18-2025 Instructions Ernesto Phoenix MD - 04/18/2025 9:50 AM EDT Treatment today and in 3 weeks Start lenvatinib 10mg daily Ordered EKG and 2d echo F/u in 3 weeks documented in this encounter [facility] 04-18-2025 History of Present illness Narrative Images from the original note were not included. PATIENT NAME: Skyler Le CLINIC NO.: [id number] ATTENDING PHYSICIAN: Ernesto Phoenix MD DATE OF SERVICE: 04/18/[address] Bing Arvizu [id number] [facility] [id number] thank you for referring Skyler Le for an opinion regarding Kidney cancer. Some of the elements of this note have been copied from my previous progress note dated 04/07/25. All the information has been reviewed carefully. CHIEF COMPLAINT: Kidney cancer HPI: Skyler Le is a 65 year old year old [...] unusual findings. Doing well - Works in [employer] and [employer]. - No smoking - No alcohol. - No family h/o cancer. - No major complaints. 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 METASTATIC DISEASE: No metabolically active distant metastases - MRI brain - Normal. - Doing well - No major complaints. 04/18/25: - Seen by on 04/09/25 - Doing well - No major complaints. - Seeing nephrology on Monday Current Outpatient Medications Medication Sig sennosides (SENNA LAX PO) Take by mouth. lenvatinib (LENVIMA) 10 mg/day (10 mg x 1) capsule Take 2 capsules by mouth once daily. inulin (FIBER GUMMIES PO) Take 1 each by mouth two times a day. prochlorperazine (COMPAZINE) 10 mg tablet Take 1 tablet by mouth every 6 hours as needed. ondansetron (ZOFRAN) 8 mg tablet Take 1 tablet by mouth every 8 hours as needed for nausea/vomiting. docusate sodium (COLACE ORAL) Take 1 capsule by mouth two times a day. allopurinol (ZYLOPRIM) 300 mg tablet Take 300 mg by mouth two times a day. acetaminophen (TYLENOL) 325 mg tablet Take 2 [...] Laterality Date COLONOSCOPY SCREENING KIDNEY BIOPSY 01/24/2025 History reviewed. No pertinent family history. Social History Tobacco Use Smoking status: Never [...] numbness or tingling of hands/feet. No weakness. All negative except mentioned in HPI. PHYSICAL EXAMINATION: There were no vitals taken [...] : Deferred LABS: Glucose (mg/dL) Date Value 04/18/2025 115 Potassium (mmol/L) Date Value 04/18/2025 4.7 Sodium (mmol/L) Date Value 04/18/2025 135 Chloride (mmol/L) Date Value 04/18/2025 103 CO2 (mmol/L) Date Value 04/18/2025 22 Creatinine (mg/dL) Date Value 04/18/2025 2.13 BUN (mg/dL) Date Value 04/18/2025 33 Anion Gap (mmol/L) Date Value 04/18/2025 10 Calcium, Total (mg/dL) Date Value 04/18/2025 9.2 Protein, Total (g/dL) Date Value 04/18/2025 7.6 Albumin (g/dL) Date Value 04/18/2025 4.2 Bilirubin, Total (mg/dL) Date Value 04/18/2025 0.2 Alkaline Phosphatase (U/L) Date Value 04/18/2025 81 AST (U/L) Date Value 04/18/2025 12 ALT (U/L) Date Value 04/18/2025 10 WBC Date Value Ref Range Status 04/18/2025 9.89 3.70 - 11.00 k/uL Final RBC Date Value Ref Range Status 04/18/2025 4.17 (L) 4.20 - 6.00 m/uL Final Hemoglobin Date Value Ref Range Status 04/18/2025 10.7 (L) 13.0 - 17.0 g/dL Final Hematocrit Date Value Ref Range Status 04/18/2025 33.6 (L) 39.0 - 51.0 % Final MCV Date Value Ref Range Status 04/18/2025 80.6 80.0 - 100.0 fL Final MCH Date Value Ref Range Status 04/18/2025 25.7 (L) 26.0 - 34.0 pg Final MCHC Date Value Ref Range Status 04/18/2025 31.8 30.5 - 36.0 g/dL Final RDW-CV Date Value Ref Range Status 04/18/2025 20.0 (H) 11.5 - 15.0 % Final Platelet Count Date Value Ref Range Status 04/18/2025 206 150 - 400 k/uL Final MPV Date Value Ref Range Status 04/18/2025 9.2 9.0 - 12.7 fL Final Abs Neut Date Value Ref Range Status 04/18/2025 7.55 (H) 1.45 - 7.50 k/uL Final Lymphocytes % Date Value Ref Range Status 04/18/2025 15.5 % Final Abs Lymph Date Value Ref Range Status 04/18/2025 1.53 1.00 - 4.00 k/uL Final Monocytes % Date Value Ref Range Status 04/18/2025 5.3 % Final Abs Lamoure Date Value Ref Range Status 04/18/2025 0.52 <0.87 k/uL Final Abs Eosin Date Value Ref Range Status 04/18/2025 0.14 <0.46 k/uL Final Basophils % Date Value Ref Range Status 04/18/2025 0.4 % Final Abs Baso Date Value Ref Range Status 04/18/2025 0.04 <0.11 k/uL Final PATH: SURGICAL PATHOLOGY: [id number] Order: [id number] Collected 02/27/2025 11:37 AM Status: Final result [...] classification. Block for additional Biomarkers/Molecular studies CCM Karis metastasis: B16 Kidney primary: B6, B20 Synoptic [...] Number of Lymph Nodes with Tumor 2 Karis Site(s) with Tumor Hilar Paraaortic Size of Largest Karis Metastatic Deposit 3.8 cm Extranodal Extension (NASEEM) [...] Cortical cysts IMAGING: ASSESSMENT AND PLAN: Skyler Le is a 65 year old year old male referred to us for left renal cell carcinoma. H/o DM, HTN, BPH, CKD Underwent left robotic radical nephrectomy and robotic retroperitoneal lymph node dissection on 02/27/25. - Final pathology showed renal cell carcinoma sarcomatoid differentiation, grade 4, metastatic renal cell carcinoma in 2 out of 3 lymph nodes, pT3a pN1, stage III. PET scan on 04/01/25 showed Metabolically active enlarged left para-aortic retroperitoneal metastatic node measuring 1.7 x 1.5 cm. - MRI brain is unremarkable. - Initial plan was to start him on adjuvant keytruda but given the PET positive left para aortic metastatic retroperitoneal lymph node and aggressive histology of the nephrectomy specimen, We will do IO/TKI. PLAN: 1. Renal cell carcinoma of left kidney (HCC) - ICD9: 189.0, ICD10: C64.2 - Seen by on 04/09/25. Recommended Keytruda Lenvatinib. - Proceed with cycle 1 keytruda today - Advised him to take Lenvatinib 10mg daily due to low GFR - Side effects explained in detail including immune mediated side effects, nausea vomiting diarrhea hand-foot syndrome cardiotoxicity, cutaneous toxicity etc. - Ordered EKG and 2d echo. - We will repeat PET scan after 2 months. - F/u with nephrology next week. Creatinine is 2.13 today. 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 - All his questions answered in detail - Follow-up in [address] Bing Arvizu [id number] [facility] [phone] thank you for allowing me to participate in [facility], if there are any questions or concerns please do not hesitate to contact me at the number below. I spent a total of 30 minutes on the date of the service which included preparing to see the patient, [id number] patient care, completing clinical documentation, obtaining and/or reviewing separately obtained history, performing a medically appropriate examination, counseling and educating the patient/family/caregiver, ordering medications, tests, or procedures, communicating with other HCPs (not separately reported), independently interpreting results (not separately reported), communicating results to the patient/family/caregiver, and care coordination (not separately reported). Ernesto Phoenix MD. Hematology/Medical Oncology [place] [phone] CC: documented in this encounter [facility] 04-18-2025 Note HNO ID: [id number] Author: ERNESTO PHOENIX MD Service: ? Author Type: Physician Type: Progress Notes Filed: 04/18/2025 10:33 Note Text: PATIENT NAME: [facility] NO.: [id number] ATTENDING PHYSICIAN: Ernesto Phoenix MD DATE OF SERVICE: 04/18/[address] Bing Arvizu [id number] [facility] [address] thank you for referring Skyler Le for an opinion regarding Kidney cancer. Some of the elements of this note have been copied from my previous progress note dated 04/07/25. All the information has been reviewed carefully. CHIEF COMPLAINT: Kidney cancer HPI: Skyler Le is a 65 year old year old [...] unusual findings. Doing well - Works in [employer] and [employer]. - No smoking - No alcohol. - No family h/o cancer. - No major complaints. 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 METASTATIC DISEASE: No metabolically active distant metastases - MRI brain - Normal. - Doing well - No major complaints. 04/18/25: - Seen by on 04/09/25 - Doing well - No major complaints. - Seeing nephrology on Monday Current Outpatient Medications Medication Sig sennosides (SENNA LAX PO) Take by mouth. lenvatinib (LENVIMA) 10 mg/day (10 mg x 1) capsule Take 2 capsules by mouth once daily. inulin (FIBER GUMMIES PO) Take 1 each by mouth two times a day. prochlorperazine (COMPAZINE) 10 mg tablet Take 1 tablet by mouth every 6 hours as needed. ondansetron (ZOFRAN) 8 mg tablet Take 1 tablet by mouth every 8 hours as needed for nausea/vomiting. docusate sodium (COLACE ORAL) Take 1 capsule by mouth two times a day. allopurinol (ZYLOPRIM) 300 mg tablet Take 300 mg by mouth two times a day. acetaminophen (TYLENOL) 325 mg tablet Take 2 [...] Laterality Date COLONOSCOPY SCREENING KIDNEY BIOPSY 01/24/2025 History reviewed. No pertinent family history. Social History Tobacco Use Smoking status: Never [...] numbness or tingling of hands/feet. No weakness. All negative except mentioned in HPI. PHYSICAL EXAMINATION: There were no vitals taken [...] axillary or inguinal adenopathy. Oropharynx: Lips, mucosa, (more content not included)... [facility] 04-18-2025 Note Education (LILIA) SKYLER LE ([id number]) 1960 M Date Time Provider Department 04/18/25 STEPHAN ROMERO Reason for Visit: Oral Anti-cancer Agent Education [0393] Cmt: Lenvatinib Primary Visit Diagnosis:Renal cell carcinoma of left kidney (HCC) [C64.2] During your visit today, we recorded the following information about you: Allergies As of Date: 04/18/2025 Noted Allergy Reaction FLOMAX (TAMSULOSIN) 02/27/2025 14 - Other: See Comments Comments: dizziness and back pain Date Reviewed: 04/18/2025 Reviewed by: Osmany Echevarria MA - Fully Assessed Prescriptions as of 04/18/2025 - sennosides (SENNA LAX PO) Take by mouth. - lenvatinib (LENVIMA) 10 mg/day (10 mg x 1) capsule Take 2 capsules by mouth once daily. - inulin (FIBER GUMMIES PO) Take 1 each by mouth two times a day. - prochlorperazine (COMPAZINE) 10 mg tablet Take 1 tablet by mouth every 6 hours as needed. - ondansetron (ZOFRAN) 8 mg tablet Take 1 tablet by mouth every 8 hours as needed for nausea/vomiting. - docusate sodium (COLACE ORAL) Take 1 capsule by mouth two times a day. - allopurinol (ZYLOPRIM) 300 mg tablet Take 300 mg by mouth two times a day. - acetaminophen (TYLENOL) 325 mg tablet Take 2 tablets by mouth every 6 hours as needed for pain. - metoprolol tartrate, short acting, (LOPRESSOR) 100 mg tablet Take 100 mg by mouth two times a day. - dutasteride (AVODART) 0.5 mg capsule Take 0.5 mg by mouth once daily. - spironolactone (ALDACTONE) 25 mg tablet Take 25 mg by mouth two times a day. - metFORMIN (GLUCOPHAGE) 1,000 mg tablet Take 500 mg by mouth two times a day. - FLUoxetine (PROZAC) 10 mg capsule Take 10 mg by mouth once daily. 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 - lenvatinib (LENVIMA) 10 mg/day (10 mg x 1) capsule Take 2 capsules by mouth once daily. - inulin (FIBER GUMMIES PO) Take 1 each by mouth two times a day. - prochlorperazine (COMPAZINE) 10 mg tablet Take 1 tablet by mouth every 6 hours as needed. - ondansetron (ZOFRAN) 8 mg tablet Take 1 tablet by mouth every 8 hours as needed for nausea/vomiting. - docusate sodium (COLACE ORAL) Take 1 capsule by mouth two times a day. - allopurinol (ZYLOPRIM) 300 mg tablet Take 300 mg by mouth two times a day. - acetaminophen (TYLENOL) 325 mg tablet Take 2 tablets by mouth every 6 hours as needed for pain. - metoprolol tartrate, short acting, (LOPRESSOR) 100 mg tablet Take 100 mg by mouth two times a day. - dutasteride (AVODART) 0.5 mg capsule Take 0.5 mg by mouth once daily. - spironolactone (ALDACTONE) 25 mg tablet Take 25 mg by mouth two times a day. - metFORMIN (GLUCOPHAGE) 1,000 mg tablet Take 500 mg by mouth two times a day. - FLUoxetine (PROZAC) 10 mg capsule Take 10 mg by mouth once daily. Encounter Status:Closed by YESICA CALDERON on 05/01/25 [facility] 04-17-2025 Note HNO ID: [id number] Author: YESICA CALDERON RD Service: ? Author Type: Registered Dietitian Type: Progress Notes Filed: 05/01/2025 19:50 Note Text: [facility] Nutrition Therapy: Virtual Consult - Initial Assessment I have communicated my name and active licensure. The patient?s identity and physical location were verified at the time of this visit. Either the patient or their legal leasing representative has been informed of the risks and benefits of -- and alternatives to -- treatment through a remote evaluation and consents to proceed with the evaluation remotely. 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 Nutrition Monitoring AND Evaluation: Monitor food and fluid intake via food journal. Reassess GI symptoms and bowel regimen effectiveness. Monitor lab values: BUN, creatinine, potassium, eGFR. Evaluate weight trends and dietary adherence. Assess readiness to implement dietary changes at next visit. Need for Follow up: as needed Skyler Le is a 65-year-old male with renal cell carcinoma on pembrolizumab, presenting with signs of renal impairment and GI symptoms. Labs [...] affecting learning: None Referred by: Dr. Mo MNT Billing Type: Initial Assess 3 units SIGNATURE: Yesica Calderon RD PATIENT NAME: Skyler Le DATE: April 17, 2025 TIME: 1:37 PM PAGER: [facility] 04-17-2025 History of Present illness Narrative [facility] Nutrition Therapy: Virtual Consult - Initial Assessment I have communicated my name and active licensure. The patient s identity and physical location were verified at the time of this visit. Either the patient or their legal leasing representative has been informed of the risks and benefits of -- and alternatives to -- treatment through a remote evaluation and consents to proceed with the evaluation remotely. 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 Labs [...] affecting learning: None Referred by: Dr. Mo MNT Billing Type: Initial Assess 3 units SIGNATURE: Yesica Calderon RD PATIENT NAME: Skyler Le DATE: April 17, 2025 TIME: 1:37 PM PAGER: documented in this encounter [facility] 04-15-2025 Telephone encounter Note Please place labs for treatment on 04/18 if needed. Isabella Javier MA [facility] 04-15-[address] labs for treatment on 04/18 if needed. Isabella Javier MA documented in this encounter [facility] 04-14-2025 Telephone encounter Note Scheduled patient for Chemo Education with Karena 04/18 as per message below. Deana Art [facility] 04-14-2025 Miscellaneous Notes Scheduled patient for Chemo Education with Karena 04/18 as per message below. Deana Gold Pss Clerical: Pt will need education when here on 04/18. Please add him to my schedule that day since Valerie is out. Thanks! Stephan Romero, RN Kt, I am working on the drug repository form now. Thanks, Myrtle Myrtle please work Skyler up for Repository fill of Lenvima. Thank you Tayo Madison PharmD, BCOP OK to use Lenvima from our drug repository then while waiting for free drug. Thank you We do have some Lenvima in our drug repository we could use to get him started while we apply for free drug. Anuradha JamesD, BCOP Images from the original note were not included. Sameer Young and Alban, The Lenvima ordered for Skyler is not covered by his insurance at all. It is a plan exclusion. There is no option for an appeal. The only option for Skyler would be to apply for free drug through the special education bus driver. This process could take some time. The authorization for Ketyruda is still pending. His insurance plan will cover Cabometyx still, if you wish to go back to that plan. We would still need to change the immunotherapy back to Opdivo and obtain that authorization though. Please advise us on how you would like to move forward. Thank you Tayo Madison, PharmD, BCOP Ambulatory Pharmacy Prior Authorization Note Provider Intervention Required?: No - Pharmacy completed on your behalf. Was the PA documented within the ePA workqueue?: No Rx Plan: Other: [facility] Drug: Lenvima Cover My Meds Amaya: N/A Determination: Denied PA Denied because: Plan EXCLUSION Prior Authorization/Case #: [id number] Prior Authorization Expiration: Time to PA Submission in CMM: 15 min Time to PA Determination in CMM: 1 day Additional Information: Fax PA form to [facility] 04/09/2025 For questions relating to this submission, please contact [facility] at [phone] Electronically signed by Isabela De La Fuente [facility] at 04/14/2025 8:19 AM EDT documented in this encounter [facility] 04-11-2025 Telephone encounter Note Clerical: Pt will need education when here on 04/18. Please add him to my schedule that day since Valerie is out. Thanks! Stephan Romero, JUANA [facility] Work Phone: 04-11-2025 Note HNO ID: [id number] Author: MYRTLE HOLLAND LSW Service: ? Author Type: Box Inspector Type: Progress Notes Filed: 04/11/2025 15:46 Note Text: SOCIAL WORK FOLLOW UP NOTE: [facility] Date of service:04/11/2025 TOPICS ADDRESSED: [place] [facility] PLAN: Assist with financial support applications and Continue follow up as needed Assigned SW listed in Care Team tab: Yes Referral received to assist with paperwork for the [place] [facility]. SW started the paperwork and will connect with Patient to complete a psychosocial assessment. RUKHSANA Nicholas [facility] 04-11-2025 History of Present illness Narrative SOCIAL WORK FOLLOW UP NOTE: [facility] Date of service:04/11/2025 TOPICS ADDRESSED: [place] [facility] PLAN: Assist with financial support applications and Continue follow up as needed Assigned SW listed in Care Team tab: Yes Referral received to assist with paperwork for the [place] [facility]. SW started the paperwork and will connect with Patient to complete a psychosocial assessment. RUKHSANA Nicholas documented in this encounter [facility] 04-11-2025 Telephone encounter Note Kt, I am working on the drug repository form now. Myrtle Georges [facility] 04-11-2025 Telephone encounter Note Myrtle please work Skyler up for Repository fill of Lenvima. Thank you Tayo Madison PharmD, BCOP [facility] Work Phone: 04-11-2025 Telephone encounter Note OK to use Lenvima from our drug repository then while waiting for free drug. Thank you [facility] 04-11-2025 Telephone encounter Note We do have some Lenvima in our drug repository we could use to get him started while we apply for free drug. Anuradha JamesD, BCOP [facility] 04-11-2025 Telephone encounter Note Images from the original note were not included. [facility] 04-11-2025 Telephone encounter Note Sameer Young and Alban, The Lenvima ordered for Skyler is not covered by his insurance at all. It is a plan exclusion. There is no option for an appeal. The only option for Skyler would be to apply for free drug through the special education bus driver. This process could take some time. The authorization for Ketyruda is still pending. His insurance plan will cover Cabometyx still, if you wish to go back to that plan. We would still need to change the immunotherapy back to Opdivo and obtain that authorization though. Please advise us on how you would like to move forward. Thank you Tayo Madison PharmD, BCOP [facility] 04-11-2025 Telephone encounter Note Follow up call placed to [facility]. Web Operations Administrator confirmed that they received the fax 04/10/25 for Lenvima prior authorization. Their TAT is 4-10 business days for prior authorizations. Tayo Madison PharmD, BCOP T [facility] Work Phone: 04-11-2025 Miscellaneous Notes Follow up call placed to [facility]. Web Operations Administrator confirmed that they received the fax 04/10/25 for Lenvima prior authorization. Their TAT is 4-10 business days for prior authorizations. Tayo Madison PharmD, BCOP Patient called back and confirmed RV and treatment for Wednesday 04/18. Pearl Burden Call placed to patient, no answer. Left detailed message on VM to call back to reschedule. Tentatively rescheduled patient for Monday, 04/18 starting @ 8:15 am if he can make this appointment. Pearl Burden PSS: can you push pt's appointments on Monday out until later in the week please. Regimen was entered by Dr Young on 04/09. Thanks Valerie Mosqueda RN Keytruda has not been approved, we were advised to push treatment out until approved. The initial approval was withdrawn when the plan was changed to Opdivo, the PA team has to resubmit for Keytruda approval again. Tayo Madison, AnuradhaD, BCOP Pharmacy: has Keytruda been approved? Please advise Valerie Mosqueda RN We can do the keytruda infusion on Monday. We can start Lenvatinib once we get it. Thank you Pt calls asking if he's going to be getting treatment on Monday or not. Treatment plan changed for a third time yesterday. Pt will now be getting keytruda and lenvatinib. Keytruda single agent was approved initially before changed to opdivo. So will that approval still stand now with the lenvatinib? Pharmacy is working on lenvatinib authorization now. I need some guidance from pharmacy as to what we should do here. Not sure if treatment is still an option for Monday or if we just need to push this back a week? Please advise Valerie Mosqueda RN documented in this encounter [facility] 04-10-2025 Telephone encounter Note Patient called back and confirmed RV and treatment for Wednesday 04/18. Pearl Burden [facility] 04-10-2025 Telephone encounter Note Patient is scheduled with Dr. Urbina on 04/21/25 @ 3:40. [facility] 04-10-2025 Miscellaneous Notes Patient is scheduled with Dr. Urbina on 04/21/25 @ 3:40. Called Dr Urbina officel. Their office has received this referral and will be calling patient soon to get scheduled. Deana Art Referral and records faxed to Dr. Urbina. Steve- please follow up on this, documented in this encounter [facility] 04-10-2025 Telephone encounter Note Call placed to patient, no answer. Left detailed message on VM to call back to reschedule. Tentatively rescheduled patient for Monday, 04/18 starting @ 8:15 am if he can make this appointment. Pearl Burden [facility] 04-10-2025 Telephone encounter Note PSS: can you push pt's appointments on Monday out until later in the week please. Regimen was entered by Dr Young on 04/09. Thanks Valerie Mosqueda RN [facility] Work Phone: 04-10-2025 Telephone encounter Note Keytruda has not been approved, we were advised to push treatment out until approved. The initial approval was withdrawn when the plan was changed to Opdivo, the PA team has to resubmit for Keytruda approval again. Tayo Madison, AnuradhaD, BCOP [facility] 04-10-2025 Telephone encounter Note Pharmacy: has Keytruda been approved? Please advise Valerie Mosqueda RN [facility] 04-10-2025 Telephone encounter Note We can do the keytruda infusion on Monday. We can start Lenvatinib once we get it. Thank you [facility] 04-10-2025 Telephone encounter Note Pt calls asking if he's going to be getting treatment on Monday or not. Treatment plan changed for a third time yesterday. Pt will now be getting keytruda and lenvatinib. Keytruda single agent was approved initially before changed to opdivo. So will that approval still stand now with the lenvatinib? Pharmacy is working on lenvatinib authorization now. I need some guidance from pharmacy as to what we should do here. Not sure if treatment is still an option for Monday or if we just need to push this back a week? Please advise Valerie Mosqudea RN [facility] 04-10-2025 Telephone encounter Note Ambulatory Pharmacy Prior Authorization Note Provider Intervention Required?: No - Pharmacy completed on your behalf. Was the PA documented within the ePA workqueue?: No Rx Plan: Other: [facility] Drug: Lenvima Cover My Meds Amaya: N/A Determination: Denied PA Denied because: Plan EXCLUSION Prior Authorization/Case #: [id number] Prior Authorization Expiration: Time to PA Submission in CMM: 15 min Time to PA Determination in CMM: 1 day Additional Information: Fax PA form to [facility] 04/09/2025 For questions relating to this submission, please contact [facility] at [phone] Electronically signed by Isabela De La Fuente [facility] at 04/14/2025 8:19 AM [facility] 04-09-2025 Note HNO ID: [id number] Author: JEANNINE YOUNG MD Service: ? Author Type: Physician Type: Progress Notes Filed: 04/09/2025 14:13 Note Text: [facility], MD4 Department of Hematology AND Medical Oncology PATIENT NAME: Skyler Le [facility] NO: [id number] ATTENDING PHYSICIAN: Jeannine Young MD DATE OF SERVICE: 04/09/2025 Skyler Le is a 65 year old male with metastatic unclassified renal cell carcinoma. He is referred for second opinion. Consultation requested by Dr. Phoenix for an opinion regarding treatment. My final recommendations will be communicated back to the requesting physician by way of shared Medical record or letter to requesting physician via US mail. HPI Mr. Corona was found to have a left renal mass and biopsy showed renal cell carcinoma with tumor necrosis and sarcomatoid differentiation. He then underwent left robotic radical nephrectomy on February 27, 2025. Pathology showed an unclassified renal cell carcinoma. He had lymph node metastases documented in surgery and a postoperative PET CT scan showed retroperitoneal lymph node metastasis. Initially the plan was to give him adjuvant pembrolizumab but when the scan showed evidence of metastatic disease, the plan shifted to nivolumab plus Cabometyx. He comes in now to see me. PAST MEDICAL HISTORY Diagnosis Date Depression Diabetes (HCC) Hypertension ROSA M on CPAP PAST SURGICAL HISTORY Procedure Laterality Date COLONOSCOPY SCREENING KIDNEY BIOPSY 01/24/2025 Left robotic radical nephrectomy Current Outpatient Medications on File Prior to Visit Medication Sig bisacodyl EC (DULCOLAX, BISACODYL,) 5 mg EC tablet Take 5 mg by mouth once daily as needed for constipation. inulin (FIBER GUMMIES PO) Take 1 each by mouth two times a day. prochlorperazine (COMPAZINE) 10 mg tablet Take 1 tablet by mouth every 6 hours as needed. ondansetron (ZOFRAN) 8 mg tablet Take 1 tablet by mouth every 8 hours as needed for nausea/vomiting. docusate sodium (COLACE ORAL) Take 1 capsule by mouth two times a day. allopurinol (ZYLOPRIM) 300 mg tablet Take 300 mg by mouth two times a day. acetaminophen (TYLENOL) 325 mg tablet Take 2 [...] mouth once daily. No current facility-administered medications on file prior to visit. BP 123/53 Pulse (!) 44 Temp 36.2 ?C (97.2 ?F) Resp 20 Ht 178 cm (5' 10.08 ) Wt 122.6 kg (270 lb 4.5 oz) SpO2 98% BMI 38.69 kg/m? GEN: Overweight man in no distress accompanied by his Results: Kidney biopsy on January 24, 2025 was read as renal cell carcinoma with tumor cell necrosis and sarcomatoid differentiation, grade 4. PAX8: Positive CAM5.2: Positive CA 9: Positive RAHEEM: Positive P63: Negative GATA3: Negative Pathology from his radical nephrectomy showed renal cell carcinoma, unclassified, with sarcomatoid differentiation, grade 4. It measured 8 cm. The tumor invaded perinephric fat, renal sinus and pelvis. Margins were negative. Metastatic renal cell carcinoma with sarcomatoid differentiation was seen in 1 hilar lymph node and 1 of 2 periaortic lymph nodes. Immunohistochemical stains were performed (blocks B6 and [...] both retained (normal), while 2SC is negative. CT abdomen pelvis December 14, 2024 showed a 6.9 cm heterogeneous solid mass in the mid and inferior pole of the left kidney concerning for malignancy. There was left periaortic lymphadenopathy with maximal short axis dimension of [address] scan skull to thigh on April 01, 2025 showed a 1.7 x 1.5 cm left periaortic lymph node with an SUV max of 6.4. In addition, there was a lesion in the inferior right thyroid lobe with an SUV max of 3.7. MRI brain without contrast on March 31, 2025 showed no persuasive evidence of metastatic disease. ASSESSMENT/PLAN: 1. 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 [facility] 04-09-2025 History of Present illness Narrative [facility] [place], [place] Department of Hematology & Medical Oncology PATIENT NAME: Skyler Le CLINIC NO: [id number] ATTENDING PHYSICIAN: Jeannine Young MD DATE OF SERVICE: 04/09/2025 Skyler Le is a 65 year old male with metastatic unclassified renal cell carcinoma. He is referred for second opinion. Consultation requested by Dr. Phoenix for an opinion regarding treatment. My final recommendations will be communicated back to the requesting physician by way of shared Medical record or letter to requesting physician via US mail. HPI Mr. Corona was found to have a left renal mass and biopsy showed renal cell carcinoma with tumor necrosis and sarcomatoid differentiation. He then underwent left robotic radical nephrectomy on February 27, 2025. Pathology showed an unclassified renal cell carcinoma. He had lymph node metastases documented in surgery and a postoperative PET CT scan showed retroperitoneal lymph node metastasis. Initially the plan was to give him adjuvant pembrolizumab but when the scan showed evidence of metastatic disease, the plan shifted to nivolumab plus Cabometyx. He comes in now to see me. PAST MEDICAL HISTORY Diagnosis Date Depression Diabetes (HCC) Hypertension ROSA M on CPAP PAST SURGICAL HISTORY Procedure Laterality Date COLONOSCOPY SCREENING KIDNEY BIOPSY 01/24/2025 Left robotic radical nephrectomy Current Outpatient Medications on File Prior to Visit Medication Sig bisacodyl EC (DULCOLAX, BISACODYL,) 5 mg EC tablet Take 5 mg by mouth once daily as needed for constipation. inulin (FIBER GUMMIES PO) Take 1 each by mouth two times a day. prochlorperazine (COMPAZINE) 10 mg tablet Take 1 tablet by mouth every 6 hours as needed. ondansetron (ZOFRAN) 8 mg tablet Take 1 tablet by mouth every 8 hours as needed for nausea/vomiting. docusate sodium (COLACE ORAL) Take 1 capsule by mouth two times a day. allopurinol (ZYLOPRIM) 300 mg tablet Take 300 mg by mouth two times a day. acetaminophen (TYLENOL) 325 mg tablet Take 2 [...] mouth once daily. No current facility-administered medications on file prior to visit. BP 123/53 Pulse (!) 44 Temp 36.2 C (97.2 F) Resp 20 Ht 178 cm (5' 10.08 ) Wt 122.6 kg (270 lb 4.5 oz) SpO2 98% BMI 38.69 kg/m GEN: Overweight man in no distress accompanied by his Results: Kidney biopsy on January 24, 2025 was read as renal cell carcinoma with tumor cell necrosis and sarcomatoid differentiation, grade 4. PAX8: Positive CAM5.2: Positive CA 9: Positive RAHEEM: Positive P63: Negative GATA3: Negative Pathology from his radical nephrectomy showed renal cell carcinoma, unclassified, with sarcomatoid differentiation, grade 4. It measured 8 cm. The tumor invaded perinephric fat, renal sinus and pelvis. Margins were negative. Metastatic renal cell carcinoma with sarcomatoid differentiation was seen in 1 hilar lymph node and 1 of 2 periaortic lymph nodes. Immunohistochemical stains were performed (blocks B6 and [...] both retained (normal), while 2SC is negative. CT abdomen pelvis December 14, 2024 showed a 6.9 cm heterogeneous solid mass in the mid and inferior pole of the left kidney concerning for malignancy. There was left periaortic lymphadenopathy with maximal short axis dimension of [address] scan skull to thigh on April 01, 2025 showed a 1.7 x 1.5 cm left periaortic lymph node with an SUV max of 6.4. In addition, there was a lesion in the inferior right thyroid lobe with an SUV max of 3.7. MRI brain without contrast on March 31, 2025 showed no persuasive evidence of metastatic disease. ASSESSMENT/PLAN: 1. 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 I placed orders for both and contacted his primary oncologist about this. - LENVATINIB 20 MG/DAY (10 MG X 2) CAPSULE - NM PET/CT SKULL-THIGH SUBSEQUENT - COMPLETE BLOOD COUNT AND DIFFERENTIAL - COMPREHENSIVE METABOLIC PANEL 2. Renal cell carcinoma of left kidney (HCC) - ICD9: 189.0, ICD10: C64.2 For unclassified renal cell carcinoma, we recommend treatment with lenvatinib and pembrolizumab. I placed orders for both and contacted his primary oncologist about this. - LENVATINIB 20 MG/DAY (10 MG X 2) CAPSULE - NM PET/CT SKULL-THIGH SUBSEQUENT - COMPLETE BLOOD COUNT AND DIFFERENTIAL - COMPREHENSIVE METABOLIC PANEL 3. High risk medication use - ICD9: V58.69, ICD10: Z79.899 While on pembrolizumab, we need to monitor for hypothyroidism. - THYROID STIMULATING HORMONE - T4 FREE/FREE THYROXINE 4. Thyroid nodule - ICD9: 241.0, ICD10: E04.1 I am ordering an ultrasound of the thyroid to workup his lesion seen on the PET scan. - US THYROID/PARATHYROID Jeannine Young MD I will see him back in June after he has had the repeat PET scan done. Medical Decision Making: Problems: Moderate: New problem with uncertain prognosis Data: Unique test result(s) reviewed: 3+ Unique test(s) ordered: 2 Medical Decision Making Level: 4 - Moderate Additional intake questions: Has the patient had fever, nausea, vomiting, diarrhea, constipation, fatigue for > 1 week? No Does the patient have a decreased appetite? No Does patient want to see a Field Enumerator? No (yes to any of above refer patient to schedulers for dietitian appointment) ) Does patient have any new or increased numbness or tingling of extremities? No Is patient interested in fertility information? No Does patient need any prescription refills? No Does patient have an advanced directive in place? No, Patient referred to [facility] documented in this encounter [facility] 04-09-2025 Note HNO ID: [id number] Author: NIKKI BAILEY RN Service: ? Author Type: Registered Nurse Type: Progress Notes Filed: 04/09/2025 14:13 Note Text: Additional intake questions: Has the patient had fever, nausea, vomiting, diarrhea, constipation, fatigue for > 1 week? No Does the patient have a decreased appetite? No Does patient want to see a Field Enumerator? No (yes to any of above refer patient to schedulers for dietitian appointment) ) Does patient have any new or increased numbness or tingling of extremities? No Is patient interested in fertility information? No Does patient need any prescription refills? No Does patient have an advanced directive in place? No, Patient referred to [facility] Electronically Signed By: Nikki Bailey RN [facility] 04-09-2025 Telephone encounter Note Approval received. Must fill at [facility]. New script pended. Pharmacy contact # . Sent [employer] Message to patient updating him on status of medication. Appeal follow-up: Called 04/09/25 : Notified case is in clinical review and could take up to 30 business days. Informed leasing representative that was unacceptable and to please candy the case urgent. Web Operations Administrator marked appeal high priority. Case #[id number] [facility] Work Phone: 04-09-2025 Miscellaneous Notes Approval received. Must fill at [facility]. New script pended. Pharmacy contact # . Sent [employer] Message to patient updating him on status of medication. Appeal follow-up: Called 04/09/25 : Notified case is in clinical review and could take up to 30 business days. Informed leasing representative that was unacceptable and to please candy the case urgent. Web Operations Administrator marked appeal high priority. Case #[id number] Ambulatory Pharmacy Prior Authorization Note Provider Intervention Required?: No - Pharmacy completed on your behalf. Was the PA documented within the ePA workqueue?: No Rx Plan: Other: [facility] Drug: Cabometyx Cover My Meds Amaya: NA Determination: Denied PA Denied because: Step therapy requirement - Patient's insurance prefers Pembro/Lenvima first line Prior Authorization/Case #: [id number] Prior Authorization Expiration: Time to PA Submission in CMM: 30 min Time to PA Determination in CMM: 3 days Additional Information: Appeal was faxed to [facility] at (Phone #: ) For questions relating to this submission, please contact [facility] at [phone] documented in this encounter [facility] 04-09-2025 Telephone encounter Note FYI: Patient is scheduled with Dr. Young on 04/09. Pearl Burden [facility] 04-09-2025 Miscellaneous Notes FYI: Patient is scheduled with Dr. Young on 04/09. Pearl Burden Sent email to [facility] to refer patient to for second opinion. Pearl Burden documented in this encounter [facility] 04-07-2025 Note HNO ID: [id number] Author: VALERIE MOSQUEDA RN Service: ? Author Type: Registered Nurse Type: Progress Notes Filed: 04/07/2025 15:36 Note Text: ONCOLOGY PATIENT EDUCATION NOTE TOPIC: Immunotherapy, Medications: Opdivo daughter and patient here today for education for treatment of Kidney Cancer Anticipated/Scheduled start date: TBD READINESS TO LEARN: COGNITIVE ABILITY: Alert and oriented MOTIVATION TO LEARN: Interested FAMILY SUPPORT: High - Very involved in pt care INSTRUCTION PROVIDED TO: Patient and Daughter INSTRUCTION PROVIDED BY: Nurse Coordinator PATIENT LEARNS BEST BY: Multiple Methods FACTORS AFFECTING LEARNING: None PHYSICAL LIMITATIONS AFFECTING LEARNING: None LEARNING RESPONSE METHOD OF INSTRUCTION: Individual instruction Written instruction/Handouts Verbal instruction PATIENT/FAMILY RESPONSE: Verbalizes understanding of: CHEMOTHERAPY-Regimen, toxicity and side effects INFECTION MANAGEMENT-Signs and symptoms of an infection and importance of contacting the physician MEDICAL REGIMEN-Importance of following prescribed medical regimen MEDICATION DOSE MISSED-Correct action to take if medication dose is missed MEDICATION PRESCRIBED-Accurate knowledge of prescribed medication prior to discharge MEDICATION ROUTE-Correct route for administration of the prescribed medication MEDICATION SIDE EFFECTS-Side effects associated with the medication that warrant a call to the physician PATIENT SAFETY PRINCIPLES SYMPTOM MANAGEMENT-Correct actions to take to manage symptoms associated with his/her disease/illness WORSENING CONDITION-Signs and symptoms of a worsening condition that warrant a call to the physician Information received as demonstrated by interest and questions FOLLOW UP PLAN: Patient instructed to call with any further issues Recommend - Recommend continued instruction and follow up as directed Follow up phone call. Contact information given. SUPPLEMENTAL MATERIAL: Written material was provided at this visit with the following information: - Immunotherapy education was provided by a pharmacist NO message sent to pharmacy on teams and they are short staffed today. - Side effect management information was provided/discussed including but not limited to: abdominal discomfort, anemia, appetite changes, arthralgia, bowel habit changes, chest pain, diet, electrolyte disturbances, fatigue, hand-foot syndrome, headache, hypersensitivity reaction, infection, mouth hygiene, mucositis, myalgia, nausea/vomitting, neutropenia, peripheral neuropathy, rash, risk for DVT, shortness of breath, skin changes, taste changes, thrombocytopenia, vision disorder/distrubance, pneumonitis, gastritis, thyroiditis, hepatitis YES - Provided important phone numbers and contacts during and after hours. YES - Provided information on symptoms that require immediate assistance. YES - Provided Chemotherapy Immunotherapy when to call handouts YES - Preventing infection. YES - Treatment schedule and confirmation of appointment times. YES - Available support groups. NA - The importance of contraception during the course of chemotherapy NA - Prescriptions for anti-emetics or treatment prep was given: Compazine and Zofran. YES - Neutropenic fever protocol discussed with patient, which included the importance of reporting any fever of 100.4F (38.0C) or greater to the healthcare team as noted on the provided wallet card and/or magnet. YES - Pt has My Journey binder at home from treatment last week. He will remove the keytruda info and will replace it with opdivo/cabozantinib - Pt requesting recent progress notes to be printed off for him to submit to his employer for an extension that the surgeon gave him. Printed and given to pt. Time Spent: 45 minutes REFERRAL (RECOMMENDATION): N/A Valerie Mosqueda RN ORAL ANTI-CANCER AGENTS EDUCATION daughter and patient here today for oral medication education of cabozantinib for Kidney Cancer Anticipated/Scheduled start date: TBD medication was denied by insurance so pharmacy is working on an appeal. READINESS TO LEARN Cognitive Ability: Alert and oriented Motivation to Learn: Interested Family Support: High - Very involved in pt care Instruction Provided to: Patient and Daughter Patient learns best by: Multiple Methods Factors affecting learning: None Physical limitation affecting learning: None AMAYA ASSESSMENT: 1.) Verified that patient knows that the oral agents are for cancer and are taken by mouth. Yes 2.) Medication review completed during visit. Yes 3.) Patient is able to swallow pills. Yes 4.) Patient is able to read the drug label/information. Yes 5.) Patient is able to open the medication bottles and packages. Yes 6.) Has patient taken other pills for cancer? No 7.) Is patient experiencing any symptoms that would affect their ability to keep down pills, for example nausea or vomiting? No 8.) Verifi (more content not included)... [facility] 04-07-2025 History of Present illness Narrative ONCOLOGY PATIENT EDUCATION NOTE TOPIC: Immunotherapy, Medications: Opdivo daughter and patient here today for education for treatment of Kidney Cancer Anticipated/Scheduled start date: TBD READINESS TO LEARN: COGNITIVE ABILITY: Alert and oriented MOTIVATION TO LEARN: Interested FAMILY SUPPORT: High - Very involved in pt care INSTRUCTION PROVIDED TO: Patient and Daughter INSTRUCTION PROVIDED BY: Nurse Coordinator PATIENT LEARNS BEST BY: Multiple Methods FACTORS AFFECTING LEARNING: None PHYSICAL LIMITATIONS AFFECTING LEARNING: None LEARNING RESPONSE METHOD OF INSTRUCTION: Individual instruction Written instruction/Handouts Verbal instruction PATIENT/FAMILY RESPONSE: Verbalizes understanding of: CHEMOTHERAPY-Regimen, toxicity and side effects INFECTION MANAGEMENT-Signs and symptoms of an infection and importance of contacting the physician MEDICAL REGIMEN-Importance of following prescribed medical regimen MEDICATION DOSE MISSED-Correct action to take if medication dose is missed MEDICATION PRESCRIBED-Accurate knowledge of prescribed medication prior to discharge MEDICATION ROUTE-Correct route for administration of the prescribed medication MEDICATION SIDE EFFECTS-Side effects associated with the medication that warrant a call to the physician PATIENT SAFETY PRINCIPLES SYMPTOM MANAGEMENT-Correct actions to take to manage symptoms associated with his/her disease/illness WORSENING CONDITION-Signs and symptoms of a worsening condition that warrant a call to the physician Information received as demonstrated by interest and questions FOLLOW UP PLAN: Patient instructed to call with any further issues Recommend - Recommend continued instruction and follow up as directed Follow up phone call. Contact information given. SUPPLEMENTAL MATERIAL: Written material was provided at this visit with the following information: - Immunotherapy education was provided by a pharmacist NO message sent to pharmacy on teams and they are short staffed today. - Side effect management information was provided/discussed including but not limited to: abdominal discomfort, anemia, appetite changes, arthralgia, bowel habit changes, chest pain, diet, electrolyte disturbances, fatigue, hand-foot syndrome, headache, hypersensitivity reaction, infection, mouth hygiene, mucositis, myalgia, nausea/vomitting, neutropenia, peripheral neuropathy, rash, risk for DVT, shortness of breath, skin changes, taste changes, thrombocytopenia, vision disorder/distrubance, pneumonitis, gastritis, thyroiditis, hepatitis YES - Provided important phone numbers and contacts during and after hours. YES - Provided information on symptoms that require immediate assistance. YES - Provided Chemotherapy Immunotherapy when to call handouts YES - Preventing infection. YES - Treatment schedule and confirmation of appointment times. YES - Available support groups. NA - The importance of contraception during the course of chemotherapy NA - Prescriptions for anti-emetics or treatment prep was given: Compazine and Zofran. YES - Neutropenic fever protocol discussed with patient, which included the importance of reporting any fever of 100.4F (38.0C) or greater to the healthcare team as noted on the provided wallet card and/or magnet. YES - Pt has My Journey binder at home from treatment last week. He will remove the keytruda info and will replace it with opdivo/cabozantinib - Pt requesting recent progress notes to be printed off for him to submit to his employer for an extension that the surgeon gave him. Printed and given to pt. Time Spent: 45 minutes REFERRAL (RECOMMENDATION): N/A Valerie Mosqueda RN ORAL ANTI-CANCER AGENTS EDUCATION daughter and patient here today for oral medication education of cabozantinib for Kidney Cancer Anticipated/Scheduled start date: TBD medication was denied by insurance so pharmacy is working on an appeal. READINESS TO LEARN Cognitive Ability: Alert and oriented Motivation to Learn: Interested Family Support: High - Very involved in pt care Instruction Provided to: Patient and Daughter Patient learns best by: Multiple Methods Factors affecting learning: None Physical limitation affecting learning: None AMAYA ASSESSMENT: 1.) Verified that patient knows that the oral agents are for cancer and are taken by mouth. Yes 2.) Medication review completed during visit. Yes 3.) Patient is able to swallow pills. Yes 4.) Patient is able to read the drug label/information. Yes 5.) Patient is able to open the medication bottles and packages. Yes 6.) Has patient taken other pills for cancer? No 7.) Is patient experiencing any symptoms that would affect their ability to keep down pills, for example nausea or vomiting? No 8.) Verified that patient understands prescription delivery, benefit investigation and refill process. Yes medication denied by insurance. Pharmacy is working on an appeal at this time. DRUG-SPECIFIC EDUCATION: 1.) Verified patient knows the drug name. Yes 2.) Verified patient understands the dose and schedule of oral anti cancer agent. Yes 3.) Verified patient knows what to do if a medication dose is missed. Yes 4.) Verified patient understands where to store the drug. Yes 5.) Verified patient understands potential side effects and how to manage them. Yes 6.)Verified patient understands handling precautions of oral anti cancer agent. Yes 7.) Verified patient was given written instructions and understands when and whom to call with questions. Yes 8.) Verified patient understands where and how to return drug. Yes 9.) Verified patient received drug specific adult education handout and neutropenic wallet card Yes EVALUATE: The daughter and patient demonstrated an understanding of all the above education using the teach-back method. Yes Instructed to call us with any questions, concerns, and/or unresolved symptoms. Will continue to follow up and provide reinforcement of teaching topics as needed. Valerie Mosqueda RN documented in this encounter [facility] 04-07-2025 Telephone encounter Note Sent email to [facility] to refer patient to for second opinion. Pearl Burden [facility] 04-07-2025 Telephone encounter Note Called Dr Urbina officel. Their office has received this referral and will be calling patient soon to get scheduled. Deana Gold Pss [facility] 04-07-2025 Instructions Ernesto Phoenix MD - 04/07/2025 2:06 PM EDT Blood work today Refer to [facility] for a second opinion. Med onc with expertise. Schedule treatment next week. documented in this encounter [facility] 04-07-2025 History of Present illness Narrative Summary: [id number] [id number] Informed Consent CASE [id number] ([id number]): Tissue and Body Fluid Analysis from Patients with Cancer and Other Risk- Associated Lesions Patient seen in clinic for informed consent of the above mentioned protocol. Patient agrees to participate in the above mentioned research study. The patient has signed a copy of the informed consent. Patient has contact information for the study team and Dr. Ernesto Phoenix MD . See consent note in Epic. Patient eligible for a pretreatment research blood draw. Aminata Lake, MSN, RN Research Nurse Coordinator documented in this encounter [facility] 04-07-2025 Note HNO ID: [id number] Author: AMINATA LAKE, RN Service: ? Author Type: Registered Nurse Type: Progress Notes Filed: 04/07/2025 14:08 Note Text: Summary: IRB [id number] Informed Consent CASE [id number] ([id number]): Tissue and Body Fluid Analysis from Patients with Cancer and Other Risk- Associated Lesions Patient seen in clinic for informed consent of the above mentioned protocol. Patient agrees to participate in the above mentioned research study. The patient has signed a copy of the informed consent. Patient has contact information for the study team and Dr. Ernesto Phoenix MD . See consent note in Epic. Patient eligible for a pretreatment research blood draw. Aminata Lake, MSN, RN Research Nurse Coordinator [facility] 04-07-2025 History of Present illness Narrative Images from the original note were not included. PATIENT NAME: Skyler Le CLINIC NO.: [id number] ATTENDING PHYSICIAN: Ernesto Phoenix MD DATE OF SERVICE: 04/07/[address] Bing Arvizu [id number] [facility] [id number] thank you for referring Skyler Le for an opinion regarding Kidney cancer. Some of the elements of this note have been copied from my previous progress note dated 03/18/25. All the information has been reviewed carefully. CHIEF COMPLAINT: Kidney cancer HPI: Skyler Le is a 65 year old year old [...] unusual findings. Doing well - Works in [place]. - No smoking - No alcohol. - No family h/o cancer. - No major complaints. 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 METASTATIC DISEASE: No metabolically active distant metastases - MRI brain - Normal. - Doing well - No major complaints. Current Outpatient Medications [...] Range Status 01/24/2025 8.5 % Final Abs Lamoure Date Value Ref Range Status 01/24/2025 1.09 (H) <0.87 k/uL Final Abs Eosin Date Value Ref Range Status 01/24/2025 0.09 <0.46 k/uL Final Basophils % Date Value Ref Range Status 01/24/2025 0.5 % Final Abs Baso Date Value Ref Range Status 01/24/2025 0.07 <0.11 k/uL Final PATH: SURGICAL PATHOLOGY: [id number] Order: [id number] Collected 02/27/2025 11:37 AM Status: Final result [...] classification. Block for additional Biomarkers/Molecular studies CCM Karis metastasis: B16 Kidney primary: B6, B20 Synoptic [...] Number of Lymph Nodes with Tumor 2 Karis Site(s) with Tumor Hilar Paraaortic Size of Largest Karis Metastatic Deposit 3.8 cm Extranodal Extension (NASEEM) [...] Cortical cysts IMAGING: ASSESSMENT AND PLAN: Skyler Le is a 65 year old year old male referred to us for left renal cell carcinoma. H/o DM, HTN, BPH, CKD Underwent left robotic radical nephrectomy and robotic retroperitoneal lymph node dissection on 02/27/25. - Final pathology showed renal cell carcinoma sarcomatoid differentiation, grade 4, metastatic renal cell carcinoma in 2 out of 3 lymph nodes, pT3a pN1, stage III. PLAN: 1. Renal cell carcinoma of left kidney (HCC) - ICD9: 189.0, ICD10: C64.2 - PET scan on 04/01/25 showed Metabolically active enlarged left para-aortic retroperitoneal metastatic node measuring 1.7 x 1.5 cm. - MRI brain is unremarkable. - Initial plan was to start him on adjuvant keytruda but given the PET positive left para aortic metastatic retroperitoneal lymph node and aggressive histology of the nephrectomy specimen, We will do Nivo cabo. - Refer to [facility] for a second opinion. - Check CBC CMP LDH, foundation one - All his questions answered in detail - Follow-up in [address] Bing Arvizu [phone] [facility] [id number] thank you for allowing me to participate in Skyler Le care, if there are any questions or concerns please do not hesitate to contact me at the number below. I spent a total of 20 minutes on the date of the service which included preparing to see the patient, [id number] patient care, completing clinical documentation, obtaining and/or reviewing separately obtained history, performing a medically appropriate examination, counseling and educating the patient/family/caregiver, ordering medications, tests, or procedures, communicating with other HCPs (not separately reported), independently interpreting results (not separately reported), communicating results to the patient/family/caregiver, and care coordination (not separately reported). Ernesto Phoenix MD. Hematology/Medical Oncology [facility] [phone] CC: documented in this encounter [facility] 04-07-2025 Note HNO ID: [id number] Author: ERNESTO PHOENIX MD Service: ? Author Type: Physician Type: Progress Notes Filed: 04/07/2025 14:27 Note Text: PATIENT NAME: Skyler Le CLINIC NO.: [id number] ATTENDING PHYSICIAN: Ernesto Phoenix MD DATE OF SERVICE: 04/07/[address] Bing Arvizu [address] [address] [facility] [address] thank you for referring Skyler Le for an opinion regarding Kidney cancer. Some of the elements of this note have been copied from my previous progress note dated 03/18/25. All the information has been reviewed carefully. CHIEF COMPLAINT: Kidney cancer HPI: Skyler Rashaad Le is a 65 year old year old [...] unusual findings. Doing well - Works in [place]. - No smoking - No alcohol. - No family h/o cancer. - No major complaints. 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 METASTATIC DISEASE: No metabolically active distant metastases - MRI brain - Normal. - Doing well - No major complaints. Current Outpatient Medications [...] Sodium (mmol/L) Date Value 03/10/2025 134 Chloride (mmol/L (more content not included)... [facility] 04-03-2025 Telephone encounter Note Sent letter to patient via [employer], left message for patient advising a return to work letter has been sent to his mychart Krzysztof Gil MA [facility] 04-03-2025 Miscellaneous Notes Sent letter to patient via [employer], [facility] message for patient advising a return to work letter has been sent to his mychart Krzysztof Gil MA Patient called into office requesting a release back to work letter from recent surgery with Dr. Arvizu. He is asking for release date of 04/14/2025. Patient can be reached on number listed in [employer] as home/mobile. documented in this encounter [facility] 04-02-2025 Telephone encounter Note Ambulatory Pharmacy Prior Authorization Note Provider Intervention Required?: No - Pharmacy completed on your behalf. Was the PA documented within the ePA workqueue?: No Rx Plan: Other: [facility]: [facility] Cover My Meds Amaya: NA Determination: Denied PA Denied because: Step therapy requirement - Patient's insurance prefers [employer] first line Prior Authorization/Case #: [id number] Prior Authorization Expiration: Time to PA Submission in CMM: 30 min Time to PA Determination in CMM: 3 days Additional Information: Appeal was faxed to [facility] at (Phone #: ) For questions relating to this submission, please contact [facility] at [phone] [facility] 04-02-2025 Telephone encounter Note Patient called into office requesting a release back to work letter from recent surgery with Dr. Arvizu. He is asking for release date of 04/14/2025. Patient can be reached on number listed in [employer] as home/mobile. [facility] Work Phone: 04-02-2025 Telephone encounter Note Referral and records faxed to Dr. Ubrina. Steve- please follow up on this, [facility] 04-01-2025 Telephone encounter Note Pt in the office today for chemo ed and does not want us to complete these FMLA forms at this time. Pt feels that he sent us the wrong forms, and will reach out to us when he sends the correct ones. Valerie Mosqueda RN [facility] Work Phone: 04-01-2025 Miscellaneous Notes Pt in the office today for chemo ed and does not want us to complete these FMLA forms at this time. Pt feels that he sent us the wrong forms, and will reach out to us when he sends the correct ones. Valerie Mosqueda RN documented in this encounter [facility] 04-01-2025 Note HNO ID: [id number] Author: VALERIE MOSQUEDA RN Service: ? Author Type: Registered Nurse Type: Progress Notes Filed: 04/01/2025 14:25 Note Text: ONCOLOGY PATIENT EDUCATION NOTE TOPIC: Immunotherapy, Medications: keytruda patient here today for education for treatment of Kidney Cancer Anticipated/Scheduled start date: 04/07/25 READINESS TO LEARN: COGNITIVE ABILITY: Alert and oriented MOTIVATION TO LEARN: Interested FAMILY SUPPORT: High - Very involved in pt care INSTRUCTION PROVIDED TO: Patient INSTRUCTION PROVIDED BY: Nurse Coordinator AND pharmacist PATIENT LEARNS BEST BY: Multiple Methods FACTORS AFFECTING LEARNING: None PHYSICAL LIMITATIONS AFFECTING LEARNING: None LEARNING RESPONSE METHOD OF INSTRUCTION: Individual instruction Written instruction/Handouts Verbal instruction PATIENT/FAMILY RESPONSE: Verbalizes understanding of: CHEMOTHERAPY-Regimen, toxicity and side effects INFECTION MANAGEMENT-Signs and symptoms of an infection and importance of contacting the physician MEDICAL REGIMEN-Importance of following prescribed medical regimen MEDICATION PRESCRIBED-Accurate knowledge of prescribed medication prior to discharge MEDICATION ROUTE-Correct route for administration of the prescribed medication MEDICATION SIDE EFFECTS-Side effects associated with the medication that warrant a call to the physician PATIENT SAFETY PRINCIPLES SYMPTOM MANAGEMENT-Correct actions to take to manage symptoms associated with his/her disease/illness WORSENING CONDITION-Signs and symptoms of a worsening condition that warrant a call to the physician Information received as demonstrated by interest and questions FOLLOW UP PLAN: Patient instructed to call with any further issues Recommend - Recommend continued instruction and follow up as directed Follow up phone call. Contact information given. SUPPLEMENTAL MATERIAL: Written material was provided at this visit with the following information: - Immunotherapy education was provided by a pharmacist YES - Side effect management information was provided/discussed including but not limited to: abdominal discomfort, anemia, appetite changes, arthralgia, bowel habit changes, chest pain, diet, electrolyte disturbances, fatigue, headache, hypersensitivity reaction, infection, kidney toxicity, myalgia, nausea/vomitting, neutropenia, rash, risk for DVT, shortness of breath, skin changes, taste changes, thrombocytopenia, pneumonitis, gastritis, thyroiditis, hepatitis YES - Provided important phone numbers and contacts during and after hours. YES - Provided information on symptoms that require immediate assistance. YES - Provided Immunotherapy when to call handouts YES - Preventing infection. YES - Treatment schedule and confirmation of appointment times. YES - Available support groups. NA - The importance of contraception during the course of chemotherapy NA - Prescriptions for anti-emetics or treatment prep was given: Compazine and Zofran. YES - Neutropenic fever protocol discussed with patient, which included the importance of reporting any fever of 100.4F (38.0C) or greater to the healthcare team as noted on the provided wallet card and/or magnet. YES - Cancer Wellness Program Pamphlet. YES - [employer] Information. YES - Patient services information. YES - My Journey binder given to pt at his appointment today. Time Spent: 1 hour 10 minutes REFERRAL (RECOMMENDATION): pt aware of services provided here at our office. -pharmacist spoke with patient today regarding keytruda not being covered by his insurance plan. They will be following up with this with paperwork. Pt will also call his HR rep to see about different insurance options he has through [employer]. Pt did my chart message FMLA forms for our office to fill out. These were printed off at his visit today and pt did not want these forms filled out at this time because they are the wrong forms. Pt will let us know if he has other forms to fill out. Valerie Mosqueda RN [facility] 04-01-2025 History of Present illness Narrative ONCOLOGY PATIENT EDUCATION NOTE TOPIC: Immunotherapy, Medications: keytruda patient here today for education for treatment of Kidney Cancer Anticipated/Scheduled start date: 04/07/25 READINESS TO LEARN: COGNITIVE ABILITY: Alert and oriented MOTIVATION TO LEARN: Interested FAMILY SUPPORT: High - Very involved in pt care INSTRUCTION PROVIDED TO: Patient INSTRUCTION PROVIDED BY: Nurse Coordinator & pharmacist PATIENT LEARNS BEST BY: Multiple Methods FACTORS AFFECTING LEARNING: None PHYSICAL LIMITATIONS AFFECTING LEARNING: None LEARNING RESPONSE METHOD OF INSTRUCTION: Individual instruction Written instruction/Handouts Verbal instruction PATIENT/FAMILY RESPONSE: Verbalizes understanding of: CHEMOTHERAPY-Regimen, toxicity and side effects INFECTION MANAGEMENT-Signs and symptoms of an infection and importance of contacting the physician MEDICAL REGIMEN-Importance of following prescribed medical regimen MEDICATION PRESCRIBED-Accurate knowledge of prescribed medication prior to discharge MEDICATION ROUTE-Correct route for administration of the prescribed medication MEDICATION SIDE EFFECTS-Side effects associated with the medication that warrant a call to the physician PATIENT SAFETY PRINCIPLES SYMPTOM MANAGEMENT-Correct actions to take to manage symptoms associated with his/her disease/illness WORSENING CONDITION-Signs and symptoms of a worsening condition that warrant a call to the physician Information received as demonstrated by interest and questions FOLLOW UP PLAN: Patient instructed to call with any further issues Recommend - Recommend continued instruction and follow up as directed Follow up phone call. Contact information given. SUPPLEMENTAL MATERIAL: Written material was provided at this visit with the following information: - Immunotherapy education was provided by a pharmacist YES - Side effect management information was provided/discussed including but not limited to: abdominal discomfort, anemia, appetite changes, arthralgia, bowel habit changes, chest pain, diet, electrolyte disturbances, fatigue, headache, hypersensitivity reaction, infection, kidney toxicity, myalgia, nausea/vomitting, neutropenia, rash, risk for DVT, shortness of breath, skin changes, taste changes, thrombocytopenia, pneumonitis, gastritis, thyroiditis, hepatitis YES - Provided important phone numbers and contacts during and after hours. YES - Provided information on symptoms that require immediate assistance. YES - Provided Immunotherapy when to call handouts YES - Preventing infection. YES - Treatment schedule and confirmation of appointment times. YES - Available support groups. NA - The importance of contraception during the course of chemotherapy NA - Prescriptions for anti-emetics or treatment prep was given: Compazine and Zofran. YES - Neutropenic fever protocol discussed with patient, which included the importance of reporting any fever of 100.4F (38.0C) or greater to the healthcare team as noted on the provided wallet card and/or magnet. YES - Cancer Wellness Program Pamphlet. YES - [employer] Information. YES - Patient services information. YES - My Journey binder given to pt at his appointment today. Time Spent: 1 hour 10 minutes REFERRAL (RECOMMENDATION): pt aware of services provided here at our office. -pharmacist spoke with patient today regarding keytruda not being covered by his insurance plan. They will be following up with this with paperwork. Pt will also call his HR rep to see about different insurance options he has through [employer]. Pt did my chart message FMLA forms for our office to fill out. These were printed off at his visit today and pt did not want these forms filled out at this time because they are the wrong forms. Pt will let us know if he has other forms to fill out. Valerie Mosqueda RN Images from the original note were not included. [facility] Department of Pharmacy Oncology Pharmacy Medication Education Patient Name: Skyler Le Primary Oncologist: Alban Diagnosis: Renal cell carcinoma L kidney Skyler Le is a 65 year old patient here today for medication education for IV PEMBROLIZUMAB . Drug Interactions: Clinically significant interactions with chemotherapy, immunosuppression, or other standard of care treatment plan medications anticipated: No. There are no pertinent drug interactions identified. Patient was counseled accordingly. Allergies: Patient confirmed allergies documented in Epic are correct: Yes Was medication education provided?: Yes Medication Education: Administration and schedule: PEMBROLIZUMAB 200 D1 - Q21D Potential side effects discussed: yes PO chemo: Not applicable Was medication reconciliation performed?: Yes Changes made to medication list? Yes The following medications were updated within the home medication list: Medications ADDED to home medication list: Gummy fiber Dulcolax 5mg Medications UPDATED on home medication list: Allopurinol docusate Current Outpatient Medications Medication Sig bisacodyl EC (DULCOLAX, BISACODYL,) 5 mg EC tablet Take 5 mg by mouth once daily as needed for constipation. inulin (FIBER GUMMIES PO) Take 1 each by mouth two times a day. prochlorperazine (COMPAZINE) 10 mg tablet Take 1 tablet by mouth every 6 hours as needed. ondansetron (ZOFRAN) 8 mg tablet Take 1 tablet by mouth every 8 hours as needed for nausea/vomiting. docusate sodium (COLACE ORAL) Take 1 capsule by mouth two times a day. allopurinol (ZYLOPRIM) 300 mg tablet Take 300 mg by mouth two times a day. acetaminophen (TYLENOL) 325 mg tablet Take 2 [...] No current facility-administered medications for this visit. - Chemotherapy education was provided by a pharmacist YES -Thank you for allowing us to participate in the care of this patient. I spent 15 time (15 minute increments) with the patient Travis Viveros RPh documented in this encounter [facility] 04-01-2025 Note HNO ID: [id number] Author: RTAVIS VIVEROS RPh Service: ? Author Type: Pharmacist Type: Progress Notes Filed: 04/01/2025 11:52 Note Text: [facility] Department of Pharmacy Oncology Pharmacy Medication Education Patient Name: Skyler Le Primary Oncologist: Alban Diagnosis: Renal cell carcinoma L kidney Skyler Le is a 65 year old patient here today for medication education for IV PEMBROLIZUMAB . Drug Interactions: Clinically significant interactions with chemotherapy, immunosuppression, or other standard of care treatment plan medications anticipated: No. There are no pertinent drug interactions identified. Patient was counseled accordingly. Allergies: Patient confirmed allergies documented in Epic are correct: Yes Was medication education provided?: Yes Medication Education: Administration and schedule: PEMBROLIZUMAB 200 D1 - Q21D Potential side effects discussed: yes PO chemo: Not applicable Was medication reconciliation performed?: Yes Changes made to medication list? Yes The following medications were updated within the home medication list: Medications ADDED to home medication list: Gummy fiber Dulcolax 5mg Medications UPDATED on home medication list: Allopurinol docusate Current Outpatient Medications Medication Sig bisacodyl EC (DULCOLAX, BISACODYL,) 5 mg EC tablet Take 5 mg by mouth once daily as needed for constipation. inulin (FIBER GUMMIES PO) Take 1 each by mouth two times a day. prochlorperazine (COMPAZINE) 10 mg tablet Take 1 tablet by mouth every 6 hours as needed. ondansetron (ZOFRAN) 8 mg tablet Take 1 tablet by mouth every 8 hours as needed for nausea/vomiting. docusate sodium (COLACE ORAL) Take 1 capsule by mouth two times a day. allopurinol (ZYLOPRIM) 300 mg tablet Take 300 mg by mouth two times a day. acetaminophen (TYLENOL) 325 mg tablet Take 2 [...] No current facility-administered medications for this visit. - Chemotherapy education was provided by a pharmacist YES -Thank you for allowing us to participate in the care of this patient. I spent 15 time (15 minute increments) with the patient Travis Viveros, [facility] 04-01-2025 History of Present illness Narrative Radiology Service Progress Note DATE OF SERVICE: April 01, 2025 TIME: 9:06 AM PATIENT WEIGHT: 267LBS PATIENT IDENTITY VERIFICATION COMPLETED USING TWO (2) STANDARD IDENTIFIERS: Name and Date of confirmed by patient verbally. FALL SCREENING: Has the patient had 2 falls in the last year or 1 fall with injury or currently using an Ambulatory Assistive Device (Walker, Cane, Wheelchair, Crutches, etc.)? No PATIENT GENDER DATA: Assigned male at ALLERGIES: Reviewed and unchanged CONTRAST ALLERGY: No EXAM: CT -CONTRAST INDUCED NEPHROPATHY RISK FACTORS: Not applicable CREATININE: Creatinine Date Value Ref Range Status 03/10/2025 2.16 (H) 0.73 - 1.22 mg/dL Final 03/04/2025 2.08 (H) 0.73 - 1.22 mg/dL Final 02/28/2025 2.00 (H) 0.73 - 1.22 mg/dL Final Estimated Glomerular Filtration Rate Date Value Ref Range Status 03/10/2025 33 (L) >=60 mL/min/1.73m Final Comment: Estimated Glomerular Filtration Rate (eGFR) is calculated using the 2020 CKD-EPI creatinine equation. This equation utilizes serum creatinine, sex, and age as parameters. The creatinine assay has traceable calibration to isotope dilution-mass spectrometry. Refer to KDIGO guidelines for clinical interpretation. In patients with unstable renal function, e.g. those with acute kidney injury, the eGFR may not accurately reflect actual GFR. P.O.C.T. RESULTS: POC done: Yes, See Lab Tab April 01, 2025 TREATMENT: N/A IV SITE: Ambulatory: A peripheral IV was started in the Right antecubital site with a Angio cath: 22 gauge. IV SITE APPEARANCE: Clean,Dry and Intact SIGNATURE: Syl Teresa RN PATIENT NAME: Skyler Le DATE: April 01, 2025 TIME: 9:06 AM RADIOLOGY SERVICE PROGRESS NOTE SERVICE DATE: 04/01/2025 SERVICE TIME: 9:08 AM PATIENT IDENTITY VERIFICATION COMPLETED USING TWO (2) STANDARD IDENTIFIERS: Name and Date of confirmed by patient verbally POST EXAM PIV STATUS: Discontinued PROCEDURE TYPE: NM INJECT: PET/CT BODY SCAN. 16.6 mCi F18 FDG. Administered By: . No other medications given.. ADMINISTRATION TIME: 0854 PATIENT DISCHARGED TO: Ambulatory patient, left [place] department area. Is this a therapy: No A Diagnostic radioactive procedure has taken place, with no further precautions necessary other than routine body substance precautions. More information regarding radiation safety can be found using this link: [email or web address] [email or web address]-%20Diagnostic%20Nuclear %20Medicine%20Procedures.pdf SIGNATURE: SOSA Bates) PATIENT NAME: Skyler Le DATE: April 01, 2025 TIME: 9:08 AM PAGER/CONTACT #: documented in this encounter [facility] 04-01-2025 Note HNO ID: [id number] Author: STEPHAN MAYO RT(R) Service: ? Author Type: Technologist Type: Progress Notes Filed: 04/01/2025 09:09 Note Text: RADIOLOGY SERVICE PROGRESS NOTE SERVICE DATE: 04/01/2025 SERVICE TIME: 9:08 AM PATIENT IDENTITY VERIFICATION COMPLETED USING TWO (2) STANDARD IDENTIFIERS: Name and Date of confirmed by patient verbally POST EXAM PIV STATUS: Discontinued PROCEDURE TYPE: NM INJECT: PET/CT BODY SCAN. 16.6 mCi F18 FDG. Administered By: . No other medications given.. ADMINISTRATION TIME: 0854 PATIENT DISCHARGED TO: Ambulatory patient, left [place] department area. Is this a therapy: No A Diagnostic radioactive procedure has taken place, with no further precautions necessary other than routine body substance precautions. More information regarding radiation safety can be found using this link: [email or web address] [email or web address]-% 20Diagnostic%20Nuclear%20Medicine% 20Procedures.pdf SIGNATURE: RT Paulo(R) PATIENT NAME: Skyler Le DATE: April 01, 2025 TIME: 9:08 AM PAGER/CONTACT #: [facility] 04-01-2025 Note HNO ID: [id number] Author: SYL TERESA RN Service: ? Author Type: Registered Nurse Type: Progress Notes Filed: 04/01/2025 09:07 Note Text: Radiology Service Progress Note DATE OF SERVICE: April 01, 2025 TIME: 9:06 AM PATIENT WEIGHT: 267LBS PATIENT IDENTITY VERIFICATION COMPLETED USING TWO (2) STANDARD IDENTIFIERS: Name and Date of confirmed by patient verbally. FALL SCREENING: Has the patient had 2 falls in the last year or 1 fall with injury or currently using an Ambulatory Assistive Device (Walker, Cane, Wheelchair, Crutches, etc.)? No PATIENT GENDER DATA: Assigned male at ALLERGIES: Reviewed and unchanged CONTRAST ALLERGY: No EXAM: CT -CONTRAST INDUCED NEPHROPATHY RISK FACTORS: Not applicable CREATININE: Creatinine Date Value Ref Range Status 03/10/2025 2.16 (H) 0.73 - 1.22 mg/dL Final 03/04/2025 2.08 (H) 0.73 - 1.22 mg/dL Final 02/28/2025 2.00 (H) 0.73 - 1.22 mg/dL Final Estimated Glomerular Filtration Rate Date Value Ref Range Status 03/10/2025 33 (L) >=60 mL/min/1.73m? Final Comment: Estimated Glomerular Filtration Rate (eGFR) is calculated using the 2020 CKD-EPI creatinine equation. This equation utilizes serum creatinine, sex, and age as parameters. The creatinine assay has traceable calibration to isotope dilution-mass spectrometry. Refer to KDIGO guidelines for clinical interpretation. In patients with unstable renal function, e.g. those with acute kidney injury, the eGFR may not accurately reflect actual GFR. P.O.C.T. RESULTS: POC done: Yes, See Lab Tab April 01, 2025 TREATMENT: N/A IV SITE: Ambulatory: A peripheral IV was started in the Right antecubital site with a Angio cath: 22 gauge. IV SITE APPEARANCE: Clean,Dry and Intact SIGNATURE: Syl Teresa RN PATIENT NAME: Skyler Le DATE: April 01, 2025 TIME: 9:06 AM [facility] 03-28-2025 Telephone encounter Note Pt will be in for education on Monday. Please sign pending orders. Thanks Valerie Mosqueda RN [facility] 03-28-2025 Miscellaneous Notes Pt will be in for education on Monday. Please sign pending orders. Thanks Valerie Mosqueda RN documented in this encounter [facility] 03-20-2025 Telephone encounter Note Orders entered and routed in a separate encounter. Tayo Madison PharmD, BCOP [facility] Work Phone: 03-20-2025 Miscellaneous Notes Orders entered and routed in a separate encounter. Anuradha JamesD, BCOP Patient is scheduled to begin on 04/07. Pearl Burden Please load keytruda 200mg every 3 weeks and schedule it. Thank you documented in this encounter [facility] 03-20-2025 Telephone encounter Note Patient is scheduled to begin on 04/07. Pearl Burden [facility] 03-20-2025 Telephone encounter Note Please load keytruda 200mg every 3 weeks and schedule it. Thank you [facility] 03-18-2025 Instructions Ernesto Phoenix MD - 03/18/2025 4:24 PM EDT Ordered PET scan and MRI brain Refer to nephrology Chemo teach for keytruda Schedule keytruda treatment in 2 weeks F/u in 2 weeks documented in this encounter [facility] 03-18-2025 History of Present illness Narrative Images from the original note were not included. PATIENT NAME: Skyler Le CLINIC NO.: [id number] ATTENDING PHYSICIAN: Ernesto Phoenix MD DATE OF SERVICE: March Dear Dr. Bing Arvizu [address] [facility] [address] thank you for referring Skyler Le for an opinion regarding Kidney cancer. CHIEF COMPLAINT: Kidney cancer HPI: Skyler Le is a 65 year old year old [...] unusual findings. Doing well - Works in [employer]. - No smoking - No alcohol. - [...] Range Status 01/24/2025 8.5 % Final Abs Lamoure Date Value Ref Range Status 01/24/2025 1.09 (H) <0.87 k/uL Final Abs Eosin Date Value Ref Range Status 01/24/2025 0.09 <0.46 k/uL Final Basophils % Date Value Ref Range Status 01/24/2025 0.5 % Final Abs Baso Date Value Ref Range Status 01/24/2025 0.07 <0.11 k/uL Final PATH: SURGICAL PATHOLOGY: [id number] Order: [id number] Collected 02/27/2025 11:37 AM Status: Final result [...] classification. Block for additional Biomarkers/Molecular studies CCM Karis metastasis: B16 Kidney primary: B6, B20 Synoptic [...] Number of Lymph Nodes with Tumor 2 Karis Site(s) with Tumor Hilar Paraaortic Size of Largest Karis Metastatic Deposit 3.8 cm Extranodal Extension (NASEEM) [...] Cortical cysts IMAGING: ASSESSMENT AND PLAN: Skyler Le is a 65 year old year old [...] - Follow-up in [address] Bing Arvizu [address] [facility] [phone] thank you for allowing me to participate in Skyler Le care, if there are any questions or concerns please do not hesitate to contact me at the number below. I spent a total of 60 minutes on the date of the service which included preparing to see the patient, grxm-ec-teyz patient care, completing clinical documentation, obtaining and/or reviewing separately obtained history, performing a medically appropriate examination, counseling and educating the patient/family/caregiver, ordering medications, tests, or procedures, communicating with other HCPs (not separately reported), independently interpreting results (not separately reported), communicating results to the patient/family/caregiver, and care coordination (not separately reported). Ernesto Phoenix MD. Hematology/Medical Oncology [facility] [phone] CC: documented in this encounter [facility] 03-18-2025 Note HNO ID: [id number] Author: ERNESTO PHOENIX MD Service: ? Author Type: Physician Type: Progress Notes Filed: 03/18/2025 16:41 Note Text: PATIENT NAME: Skyler Le CLINIC NO.: [id number] ATTENDING PHYSICIAN: Ernesto Phoenix MD DATE OF SERVICE: March Dear Dr. Bing Arvizu [address] [facility] [address] thank you for referring Skyler Le for an opinion regarding Kidney cancer. CHIEF COMPLAINT: Kidney cancer HPI: Skyler Le is a 65 year old year old [...] unusual findings. Doing well - Works in [employer] [place]. - No smoking - No alcohol. - [...] Date Value 03/10/2025 3.9 Bilirubin, Total (mg/dL) (more content not included)... [facility] 03-14-2025 Hospital Discharge instructions Patient Education 03/14/2025 [...] may need more sleep. General instructions Take nfbn-phh-tihnwir and prescription medicines only as told by your health care provider. Consider joining a support group. This can help you cope with the stress of having kidney cancer. Work with your health care provider to manage any side effects of treatment. Keep all follow-up visits. Your health care provider will want to make sure your treatment is working. Where to find more information [place] [employer]: cancer.org National Cancer [place] (NCI): cancer.gov Contact a health care provider [...] provider. Document Revised: 02/28/2023 Document Reviewed: 02/28/2023 [employer] Patient Education 2023 [employer]. Follow Up Care 12/20/2024 09:17:13 With:KARLA JAMES, Nikolai Berry, URL Address: [address] [place] [address]- When: Unknown [facility] 03-14-2025 Note Patient Education Oncology Kidney Cancer Kidney cancer is a type [...] Treatment may include: ??? Surgery to remove: ? Just the tumor (nephron-sparing surgery). ? The entire kidney (nephrectomy). ? The kidney, some of the healthy tissue around it, nearby lymph nodes, and sometimes the adrenal gland (radical nephrectomy). ??? Medicines to: ? Kill cancer cells (chemotherapy). ? Help your body's disease-fighting system (immune system) [...] that affect eating, it may help to: ? Eat smaller meals more often. ? Eat bland or soft foods. ? Avoid foods that are hot, spicy, or hard to swallow. ? Drink shakes or supplements that are high in nutrition and calories. ??? Do not drink alcohol. Lifestyle ??? Do not use any products that contain nicotine or tobacco. These products include cigarettes, chewing tobacco, and vaping devices, such as e-cigarettes. If you need help quitting, ask your health care provider. ??? Get enough sleep. Most adults need 6?8 hours of sleep each night. During treatment, you may need more sleep. General instructions ??? Take higp-ypr-qlpvtdc and prescription medicines only as told by [...] working. Where to find more information ??? [place] [employer]: cancer.org ??? National Cancer [place] (NCI): cancer.gov Contact a health care provider [...] pain. ??? You are short of breath. ?? (more content not included)... [facility] 03-12-2025 Telephone encounter Note FINAL DIAGNOSIS A. [...] 6 weeks after surgery. Bing Arvizu MD [facility] Work Phone: 03-12-2025 Miscellaneous Notes FINAL DIAGNOSIS [...] Bing Arvizu MD documented in this encounter [facility] 03-12-2025 Miscellaneous Notes FLMA forms completed and faxed to [employer]. Fax confirmation received. Completed forms placed at the front elevator operator to be scanned into patients chart. Darrell Justin RN documented in this encounter [facility] 03-12-2025 Telephone encounter Note FLMA forms completed and faxed to [place]. Fax confirmation received. Completed forms placed at the front elevator operator to be scanned into patients chart. Darrell Justin RN [facility] 03-11-2025 Instructions Tamanna Zhu APRN.DEEP - 03/11/2025 9:31 AM EDT Spoke with [...] labs obtained today. documented in this encounter [facility] 03-11-2025 Telephone encounter Note Spoke with patient [...] go to ED closer to home as [place] is almost an hour away. All questions answered. Patient inquiring about his pathology results, will follow up with Dr. Arvizu. Aurea Rodriguez MD Urology Resident PGY-1 Pager [facility] Work Phone: 03-11-2025 Miscellaneous Notes Spoke with [...] go to ED closer to home as [place] is almost an hour away. All questions answered. Patient inquiring about his pathology results, will follow up with Dr. Arvizu. Aurea Rodriguez MD Urology Resident PGY-1 Pager documented in this encounter [facility] 03-05-2025 Telephone encounter Note Patient needs the provider to complete FMLA paperwork for his medical leave. Patient gave provider the paperwork at his office visit on 01/03/25. Please advise [facility] 03-05-2025 Miscellaneous Notes Patient needs the provider to complete FMLA paperwork for his medical leave. Patient gave provider the paperwork at his office visit on 01/03/25. Please advise documented in this encounter [facility] 02-28-2025 Note HNO ID: [id number] Author: TAMANNA ZHU APRN.QUARRY PLUG AND FEATHER DRILLER Service: Urology Author Type: Nurse Practitioner Type: Progress Notes Filed: 03/12/2025 10:45 Note Text: Documentation Query Please specify a diagnosis associated with the Clinical Indicators for this patient {Please select the appropriate option:[id number]:: Obesity Class 2 This document will become part of the patient's medical record. Tamanna Zhu APRN.CNP [facility] 02-28-2025 Note HNO ID: [id number] Author: TAMANNA ZHU APRN.CNP Service: Urology Author Type: Nurse Practitioner Type: Progress Notes Filed: 03/12/2025 10:45 Note Text: Documentation Query Please clarify the diagnosis associated with the clinical indicators {Please select the appropriate option:[id number]:: Acute kidney injury , This document will become part of the patient's medical record. [facility] 02-28-2025 Note HNO ID: [id number] Author: TAMANNA ZHU APRN.CNP Service: Urology Author Type: Nurse Practitioner Type: Progress Notes Filed: 03/10/2025 09:26 Note Text: Documentation Query Please clarify the diagnosis associated with the clinical indicators for this patient Provider Response: {Please select the appropriate option:[id number]:: Hyperkalemia supported by: Continued Lab Monitoring, Continued Symptom Monitoring, and Other, please specify treatment if hyperkalemia with IV furosemide, dextrose/insulin , This document will become part of the patient's medical record. Tamanna Zhu APRN.CNP [facility] 02-28-2025 Note HNO ID: [id number] Author: JUAN ANTONIO KATZ CPhT Service: ? Author Type: Industrial Order Clerk Type: Plan of Care Filed: 02/28/2025 15:07 Note Text: PHARMACY BEDSIDE DELIVERY SERVICE Patient Name: Skyler Le The marked outpatient medications were Filled at: [place] and delivered to the patient's bedside to [...] as: ZESTORETIC Juan Antonio Katz CPhT PAGER: [phone] February 28, 2025 3:07 PM [facility] 02-28-2025 Note HNO ID: [id number] Author: BING ARVIZU MD Service: Urology Author Type: Physician Type: Progress Notes Filed: 02/28/2025 07:52 Note Text: [facility] UROLOGY PROGRESS NOTE Name: Skyler Le Bed: [id number] Date: 02/28/2025 After Hours [facility] Urology Service Pager: [phone] ASSESSMENT AND PLAN Skyler Le is a [...] please page the urology [place]: [phone] for [facility] [phone] for [place] train caller resident/fellow/staff in [place] for all other PSYCHIATRIC hospitals SUBJECTIVE -see above Objective Vital Signs [...] please page the urology [place]: [phone] [address] [place] [phone] for [place] train caller resident/fellow/staff in [facility] for all other PSYCHIATRIC hospitals The above noted history, physical, assessment and plan were reviewed with the provider and critical portions of the HANDP were confirmed. I agree with the plan above and provided direct supervision of the above provider during this patient's care. Bing Arvizu MD [facility] 02-27-2025 Note HNO ID: [id number] Author: BETH MASTERSON DO Service: Nursing Author [...] procedure. Beth Masterson DO SIGNATURE: Ciera Honeycutt APRN.HUMAN RESOURCES SUPERVISOR PATIENT NAME: Skyler Le DATE: February 27, 2025 TIME: 9:04 AM CSN: [id number] [facility] 02-27-2025 Note HNO ID: [id number] Author: CIERA HONEYCUTT APRN.CRNA Service: Nursing Author Type: Nurse Utility Worker Film Processing Type: Anesthesia Procedure Notes Filed: 02/27/2025 09:12 [...] Imaging Guidance Used: No SIGNATURE: Ciera Honeycutt APRN.HUMAN RESOURCES SUPERVISOR PATIENT NAME: Skyler Le DATE: February 27, 2025 TIME: 9:03 AM CSN: [id number] [facility] 02-27-2025 Note HNO ID: [id number] Author: CIERA HONEYCUTT APRN.CRNA Service: Nursing Author Type: Nurse Utility Worker Film Processing Type: Anesthesia Procedure Notes Filed: 02/27/2025 09:12 Note Text: ANESTHESIOLOGY PROCEDURE NOTE Airway General Information Procedure Start Time/Medication Administration: 02/27/2025 7:56 AM Procedure End Time: 02/27/2025 7:59 AM Patient location during procedure: OR Patient identity confirmed: arm band, care medical director/head team physician and patient Staffing Anesthesiologist: Beth Masterson DO HUMAN RESOURCES SUPERVISOR: Ciera Honeycutt APRN.HUMAN RESOURCES SUPERVISOR SRNA: Tianna Diego SRNA Performed by: ELICIA [...] mask with oral airway SIGNATURE: Ciera Honeycutt APRN.CRNA PATIENT NAME: Skyler Le DATE: February 27, 2025 TIME: 9:00 AM CSN: [id number] [facility] 02-10-2025 Telephone encounter Note I have ordered two Venofer Infusions for patient . [facility] this patient [facility] have these completed. Rob Romero HUSKER OPERATOR-C [facility] 02-10-2025 Miscellaneous Notes I have ordered two Venofer Infusions for patient . The best location for this patient is the [facility] to have these completed. Rob COSBY documented in this encounter [facility] [facility] 02-07-2025 Instructions Rob Romero APRN.DEEP - 02/07/2025 2:16 PM EDT PATIENT PREOPERATIVE INSTRUCTIONS Bing Arvizu MD has scheduled you for your procedure at this surgery center: [facility]: [phone] --[id number] [id number]. Please check in on the 1st floor [...] SURGERY If you are currently using a nfvu-qtl-tgyd injectable or oral medication for diabetes or [...] Procedures: - YOU MUST HAVE A RESPONSIBLE TRANSPORTATION ASSISTANT TAKE YOU HOME. A IN FLIGHT CREW MEMBER OR TRAFFIC COUNTER CANNOT BE MADE A RESPONSIBLE TRANSPORTATION ASSISTANT. - We recommend that a responsible person [...] Advance Directive, please fax a copy to [phone] or email to for it to be [...] into your chart that day. Rob Romero APRN.CNP documented in this encounter [facility] 02-07-2025 History and physical note Images from [...] Taylor present: no Lip Bite Test: II Microretrognathia/Micronagthia/Rec essed Chin: No DENTAL Dental findings: teeth intact. [...] 0 (ROSA M compliant with CPAP ) [id number] Score: Age: 65-74 Sex: male CHF history: No Hypertension history: Yes Stroke/TIA/thromboembolism history: No Vascular disease history: No Diabetes history: Yes [id number] Score: 3 ARISCAT Score: Age: 51-80 Preoperative [...] fevers. Neuro: No history of TIA's, stroke, NEIGHBORHOOD CONSERVATION OFFICER tumor, impaired sensorium, hemiplegia, paraplegia or quadraplegia. [...] Admin: COVID-19 vaccine, age 12+ yr, bivalent ([employer]) 02/26/2022 Imm Admin: COVID-19 original vaccine, age 12+ yr, monovalent ([employer]) Only the first 5 [...] Skyler Le DATE: 02/07/2025 TIME: 2:13 PM [facility] 02-07-2025 History and physical note Images from the original note were not included. [facility] HISTORY AND PHYSICAL EXAMINATION SERVICE DATE: 02/07/2025 SERVICE TIME: 2:02 PM PRIMARY CARE PHYSICIAN: Jessica Davalos CNP, [employer]RILLER REASON FOR VISIT: Skyler Le is a [...] Taylor present: no Lip Bite Test: II Microretrognathia/Micronagthia/Rec essed Chin: No DENTAL Dental findings: teeth intact. [...] 0 (ROSA M compliant with CPAP ) [id number] Score: Age: 65-74 Sex: male CHF history: No Hypertension history: Yes Stroke/TIA/thromboembolism history: No Vascular disease history: No Diabetes history: Yes [id number] Score: 3 ARISCAT Score: Age: 51-80 Preoperative [...] fevers. Neuro: No history of TIA's, stroke, NEIGHBORHOOD CONSERVATION OFFICER tumor, impaired sensorium, hemiplegia, paraplegia or quadraplegia. [...] Admin: COVID-19 vaccine, age 12+ yr, bivalent ([employer]) 02/26/2022 Imm Admin: COVID-19 original vaccine, age 12+ yr, monovalent ([employer]) Only the first 5 [...] TIME: 2:13 PM documented in this encounter [facility] 01-09-2025 Telephone encounter Note Left voice message on patients phone and also 's Irene to call [facility] to schedule his biopsy. They have left 2 messages to call to schedule appointment. [facility] 01-09-2025 Miscellaneous Notes Left voice message on patients phone and also 's Irene to call [facility] to schedule his biopsy. They have left 2 messages to call to schedule appointment. documented in this encounter [facility] 01-06-2025 Telephone encounter Note Left vm for patient to call back- 1st attempt [facility] 01-06-2025 Miscellaneous Notes Left vm for patient [...] this procedure: intermediate-high risk. Reference from [facility]: [email or web address] STAFF SIGNATURE: Rivas Santana MD DATE: January [...] 3:46pm REQUESTING STAFF: Bing Arvizu MD PHONE/PAGER: [phone] SPECIFICS OF THE REQUEST: Renal Biopsy SPECIAL REQUESTS: TISSUE SAMPLE, LABWORK: N/A IS THIS REQUEST PART OF A RESEARCH PROTOCOL: No MEDICAL DIAGNOSIS: Neoplasm of uncertain behavior of left kidney TYPE AND DATE OF THE EXAM THAT IS THE BASIS OF THE REQUEST: CT Date: 12/14/2024 IMAGING: OUTSIDE [facility] Films: Where is study now: in patient's chart Note to all persons requesting biopsies: All biopsy requests will be scheduled as quickly as possible, based on the clinical urgency, availability of appointment times, the need to hold anti-thrombolytic therapy (aspirin, blood thinners) and the patient s schedule, including the need for an available driver guard. If a percutaneous biopsy or drainage is not felt to be safe or an alternative method for establishing a diagnosis is possible, this will be discussed directly with the requesting physician. documented in this encounter [facility] 01-06-2025 Telephone encounter Note RADIOLOGIST REQUEST / [...] for this procedure: intermediate-high risk. Reference from [facility] [employer] [facility]: [email or web address].[email or web address]/ [email or web address] STAFF SIGNATURE: Rivas Santana MD DATE: January 06, 2025 TIME: 9:21 AM [facility] 01-06-2025 Telephone encounter Note BX. COORDINATOR INFORMATION [...] DATE: January 06, 2025 TIME: 7:59 AM [facility] 01-03-2025 Telephone encounter Note Summary: Renal biopsy RADIOLOGY CALL CENTER INTAKE DATE: 01/03/2025 TIME: 3:46pm REQUESTING STAFF: Bing Arvizu MD PHONE/PAGER: [phone] SPECIFICS OF THE REQUEST: Renal Biopsy SPECIAL REQUESTS: TISSUE SAMPLE, LABWORK: N/A IS THIS REQUEST PART OF A RESEARCH PROTOCOL: No MEDICAL DIAGNOSIS: Neoplasm of uncertain behavior of left kidney TYPE AND DATE OF THE EXAM THAT IS THE BASIS OF THE REQUEST: CT Date: 12/14/2024 IMAGING: OUTSIDE [facility] Films: Where is study now: in patient's chart Note to all persons requesting biopsies: All biopsy requests will be scheduled as quickly as possible, based on the clinical urgency, availability of appointment times, the need to hold anti-thrombolytic therapy (aspirin, blood thinners) and the patient s schedule, including the need for an available driver guard. If a percutaneous biopsy or drainage is not felt to be safe or an alternative method for establishing a diagnosis is possible, this will be discussed directly with the requesting physician. [facility] 01-03-2025 Note Addended by: BING STEELE on: 01/03/2025 03:33 PM Modules accepted: Orders [facility] 01-03-2025 Miscellaneous Notes Addended by: BING ARVIZU on: 01/03/2025 03:33 PM Modules accepted: Orders documented in this encounter [facility] 01-03-2025 History of Present illness Narrative [facility] NEW PATIENT HISTORY AND PHYSICAL [...] was discussed with the patient or authorized leasing representative. The patient or authorized leasing representative has agreed to proceed with the [...] Surgery is tentatively planned for mid-January. My personnel scheduler will contact you to confirm the [...] within the next two weeks. - My personnel scheduler will contact you to confirm the date of your surgery, tentatively planned for mid. - If you have any questions or concerns, please contact our office. The patient consented to the use of [employer] software for draft documentation of the visit consistent with [facility] s Notice of Privacy Practices. By signing [...] of Medical Record. documented in this encounter [facility] 01-03-2025 Note HNO ID: [id number] Author: BING ARVIZU MD Service: ? Author Type: Physician Type: Progress Notes Filed: 01/03/2025 15:11 Note Text: [facility] H[facility]ORY AND PHYSICAL EXAM PATIENT [...] resident, medical s (more content not included)... [facility] 12-20-2024 Note Patient Education Urology Transurethral Resection [...] including vitamins, herbs, eye drops, creams, and jnfa-zer-erfytve medicines. ??? Any problems you or family [...] tells you to take them. ??? Taking gaei-wri-yyagrro medicines, vitamins, herbs, and supplements. Surgery safety [...] bladder. The cathete (more content not included)... [facility] 10-24-2024 Evaluation + Plan note Diagnostic Tests PendingUrine Culture 10/24/24 [facility] 10-24-2024 Hospital Discharge instructions Patient Education 10/24/2024 [...] as fried or sweet foods. These include estonian fries, hamburgers, cookies, candies, and soda. Drink enough fluid to keep your urine pale yellow. General instructions Exercise regularly or as told by your health care provider. Try to do 150 minutes of moderate exercise each week. Use the bathroom when you have the urge to go. Do not hold it in. Take wzqr-uqq-stuyygq and prescription medicines only as told by [...] to keep your urine pale yellow. Take oewh-ykl-mkcqtqg and prescription medicines only as told by your health care provider. This includes any fiber supplements. This information is not intended to replace advice given to you by your health care provider. Make sure you discuss any questions you have with your health care provider. Document Revised: 08/02/2023 Document Reviewed: 08/02/2023 [employer] Patient Education 2023 [employer] 10/23/2024 16:04:03 Hematuria, Adult Hematuria, Adult Hematuria [...] Follow these instructions at home: Medicines Take iein-yys-tlvzdmd and prescription medicines only as told by [...] or the blood stops without treatment. Take eqlg-awy-iojrynv and prescription medicines only as told by your health care provider. Drink enough fluid to keep your urine pale yellow. This information is not intended to replace advice given to you by your health care provider. Make sure you discuss any questions you have with your health care provider. Document Revised: 05/19/2021 Document Reviewed: 05/19/2021 [employer] Patient Education 2023 [employer]. Follow Up Care 10/15/2024 09:45:52 With:[facility] Address: When: Unknown Comments:For procedure as scheduled. With:[facility] Address: When: Unknown Comments:For procedure as scheduled. [facility] [employer] 10-24-2024 Note Patient Education Gastroenterology Constipation, Adult [...] as fried or sweet foods. These include estonian fries, hamburgers, cookies, candies, and soda. ??? Drink enough fluid to keep your urine pale yellow. General instructions ??? Exercise regularly or as told by your health care provider. Try to do 150 minutes of moderate exercise each week. ??? Use the bathroom when you have the urge to go. Do not hold it in. ??? Take pjjj-tjr-dbfzowg and prescription medicines only as told by [...] keep your urine pale yellow. ??? Take ssyk-hmz-khyiiaj and prescription medicines only as told by your health care provider. This includes any fiber supplements. This information is not intended to replace advice given to you by your health care provider. Make sure you discuss any questions you have with your health care provider. Document Revised: 08/02/2023 Document Reviewed: 08/02/2023 [employer] Patient Education ? 2023 [employer] Urology Hematuria, Adult Hematuria is blood in [...] these instructions at home: Medicines ??? Take aadk-cyj-uaaqipz and prescription medicines only as told by [...] back and u (more content not included)... [facility] Evaluation + Plan note Future Appointments Appointment Date:09/26/2025 09:45:00 AM Scheduled Provider:Nikolai ACOSTA MD Location:[facility] Appointment Type:URO Office Visit Diagnostic Tests PendingBUN 03/14/25Creatinine 03/14/25Potassium Level 03/14/25 [facility] Evaluation note No assessment inform ation available [facility] Work Phone: Evaluation note Diagnosis Screening for nephropathy- Primary 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 [facility] Diagnosis Neoplasm of uncertain behavior of left kidney- Primary 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 [facility] Diagnosis Renal mass, left- Primary Unspecified disorder of kidney and ureter 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 [facility] Diagnosis Renal mass, left- Primary Unspecified disorder of kidney and ureter Abnormal blood chemistry Other abnormal blood chemistry 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 [facility] Diagnosis Pre-op evaluation- Primary Preoperative examination, unspecified Depression, unspecified depression type Type 2 diabetes mellitus without complication, unspecified whether 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) BPH with obstruction/lower urinary [...] any suicidal ideation documented in this encounter [facility] note* Diagnosis Pre-op evaluation- Primary Preoperative examination, unspecified Depression, unspecified depression type Type 2 diabetes mellitus without complication, unspecified whether nursing home insulin use (HCC) BPH with obstruction/lower urinary [...] kidney and ureter documented in this encounter [facility] note* Diagnosis Pre-op evaluation- Primary Preoperative examination, unspecified Depression, unspecified depression type Type 2 diabetes mellitus without complication, unspecified whether 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) BPH with obstruction/lower urinary [...] kidney and ureter [facility] Diagnosis Pre-op evaluation- Primary Preoperative examination, unspecified Depression, unspecified depression type Type 2 diabetes mellitus without complication, unspecified whether 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) BPH with obstruction/lower urinary [...] kidney failure, unspecified [facility] Diagnosis Pre-op evaluation- Primary Preoperative examination, unspecified Depression, unspecified depression type Type 2 diabetes mellitus without complication, unspecified whether nursing home insulin use (HCC) BPH with obstruction/lower urinary [...] Hyperkalemia- Primary Hyperpotassemia [facility] Diagnosis Pre-op evaluation- Primary Preoperative examination, unspecified Depression, unspecified depression type Type 2 diabetes mellitus without complication, unspecified whether 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) BPH with obstruction/lower urinary tract symptoms Hypertrophy of prostate with urinary obstruction and other lower urinary tract symptoms (LUTS) Hypertension, unspecified type ROSA M (obstructive sleep apnea) Obstructive sleep apnea (adult) (pediatric) Class 2 obesity due to excess calories without serious comorbidity in adult, unspecified BMI Iron deficiency anemia, unspecified iron deficiency anemia type Renal cell carcinoma of left kidney (HCC)- Primary documented in this encounter [facility] note* Diagnosis Pre-op evaluation- Primary Preoperative examination, unspecified Depression, unspecified depression type Type 2 diabetes mellitus without complication, unspecified whether 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) BPH with obstruction/lower urinary tract symptoms Hypertrophy of prostate with urinary obstruction and other lower urinary tract symptoms (LUTS) Hypertension, unspecified type ROSA M (obstructive sleep apnea) Obstructive sleep apnea (adult) (pediatric) Class 2 obesity due to excess calories without serious comorbidity in adult, unspecified BMI Iron deficiency anemia, unspecified iron deficiency anemia type Encounter for education- Primary Counseling NOS Renal cell carcinoma of left kidney (HCC) documented in this encounter [facility] note* Diagnosis Pre-op evaluation- Primary Preoperative examination, unspecified Depression, unspecified depression type Type 2 diabetes mellitus without complication, unspecified whether nursing home insulin use (HCC) BPH with obstruction/lower urinary tract symptoms Hypertrophy of prostate with urinary obstruction and other lower urinary tract symptoms (LUTS) Hypertension, unspecified type ROSA M (obstructive sleep apnea) Obstructive sleep apnea (adult) (pediatric) Class 2 obesity due to excess calories without serious comorbidity in adult, unspecified BMI Iron deficiency anemia, unspecified iron deficiency anemia type Renal cell carcinoma of left kidney (HCC) documented in this encounter [facility] note* Diagnosis Pre-op evaluation- Primary Preoperative examination, unspecified Depression, unspecified depression type Type 2 diabetes mellitus without complication, unspecified whether nursing home insulin use (HCC) BPH with obstruction/lower urinary tract symptoms Hypertrophy of prostate with urinary obstruction and other lower urinary tract symptoms (LUTS) Hypertension, unspecified type ROSA M (obstructive sleep apnea) Obstructive sleep apnea (adult) (pediatric) Class 2 obesity due to excess calories without serious comorbidity in adult, unspecified BMI Iron deficiency anemia, unspecified iron deficiency anemia type Renal cell carcinoma of left kidney (HCC)- Primary documented in this encounter [facility] note* Diagnosis Pre-op evaluation- Primary Preoperative examination, unspecified Depression, unspecified depression type Type 2 diabetes mellitus without complication, unspecified whether nursing home insulin use (HCC) BPH with obstruction/lower urinary tract symptoms Hypertrophy of prostate with urinary obstruction and other lower urinary tract symptoms (LUTS) Hypertension, unspecified type ROSA M (obstructive sleep apnea) Obstructive sleep apnea (adult) (pediatric) Class 2 obesity due to excess calories without serious comorbidity in adult, unspecified BMI Iron deficiency anemia, unspecified iron deficiency anemia type Renal cell carcinoma of left kidney (HCC)- Primary [facility] Diagnosis Pre-op evaluation- Primary Preoperative examination, unspecified Depression, unspecified depression type Type 2 diabetes mellitus without complication, unspecified whether 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) BPH with obstruction/lower urinary tract symptoms Hypertrophy of prostate with urinary obstruction and other lower urinary tract symptoms (LUTS) Hypertension, unspecified type ROSA M (obstructive sleep apnea) Obstructive sleep apnea (adult) (pediatric) Class 2 obesity due to excess calories without serious comorbidity in adult, unspecified BMI Iron deficiency anemia, unspecified iron deficiency anemia type 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 Secondary and unspecified malignant neoplasm of intra-abdominal lymph nodes Renal cell carcinoma of left kidney (HCC) High risk medication use Encounter for long-term (current) use of other medications Thyroid nodule Nontoxic uninodular goiter [facility] Diagnosis Pre-op evaluation- Primary Preoperative examination, unspecified Depression, unspecified depression type Type 2 diabetes mellitus without complication, unspecified whether 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) BPH with obstruction/lower urinary tract symptoms Hypertrophy of prostate with urinary obstruction and other lower urinary tract symptoms (LUTS) Hypertension, unspecified type ROSA M (obstructive sleep apnea) Obstructive sleep apnea (adult) (pediatric) Class 2 obesity due to excess calories without serious comorbidity in adult, unspecified BMI Iron deficiency anemia, unspecified iron deficiency anemia type Renal cell carcinoma of left kidney (HCC)- Primary [facility] Diagnosis Pre-op evaluation- Primary Preoperative examination, unspecified Depression, unspecified depression type Type 2 diabetes mellitus without complication, unspecified whether 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) BPH with obstruction/lower urinary tract symptoms Hypertrophy of prostate with urinary obstruction and other lower urinary tract symptoms (LUTS) Hypertension, unspecified type ROSA M (obstructive sleep apnea) Obstructive sleep apnea (adult) (pediatric) Class 2 obesity due to excess calories without serious comorbidity in adult, unspecified BMI Iron deficiency anemia, unspecified iron deficiency anemia type Renal cell carcinoma of left kidney (HCC)- Primary [facility] Diagnosis Pre-op evaluation- Primary Preoperative examination, unspecified Depression, unspecified depression type Type 2 diabetes mellitus without complication, unspecified whether nursing home insulin use (HCC) BPH with obstruction/lower urinary tract symptoms Hypertrophy of prostate with urinary obstruction and other lower urinary tract symptoms (LUTS) Hypertension, unspecified type ROSA M (obstructive sleep apnea) Obstructive sleep apnea (adult) (pediatric) Class 2 obesity due to excess calories without serious comorbidity in adult, unspecified BMI Iron deficiency anemia, unspecified iron deficiency anemia type High risk medication use- Primary Encounter for long-term (current) use of other medications Renal cell carcinoma of left kidney (HCC) documented in this encounter [facility] note* Diagnosis Pre-op evaluation- Primary Preoperative examination, unspecified Depression, unspecified depression type Type 2 diabetes mellitus without complication, unspecified whether nursing home insulin use (HCC) BPH with obstruction/lower urinary tract symptoms Hypertrophy of prostate with urinary obstruction and other lower urinary tract symptoms (LUTS) Hypertension, unspecified type ROSA M (obstructive sleep apnea) Obstructive sleep apnea (adult) (pediatric) Class 2 obesity due to excess calories without serious comorbidity in adult, unspecified BMI Iron deficiency anemia, unspecified iron deficiency anemia type 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 Secondary and unspecified malignant neoplasm of intra-abdominal lymph nodes Renal cell carcinoma of left kidney (HCC) documented in this encounter [facility] note* Diagnosis Onset Date Resolution Status Admit Date Anemia of renal disease acute J joey 2024 3:43pm Chronic kidney disease, stag e IV (severe) acute April 22, 2025 3:43pm Diabetic nephropathy acute April 22, 2025 3:43pm History of nephrectomy, left acute April 22, 2025 3:43pm Hypertensive nephropathy acute April 22, 2025 3:43pm Hyperuricemia acute April 22, 2025 3:43pm [facility] Work Phone: Evaluation note* Diagnosis Pre-op evaluation- Primary Preoperative examination, unspecified Depression, unspecified depression type Type 2 diabetes mellitus without complication, unspecified whether nursing home insulin use (HCC) BPH with obstruction/lower urinary tract symptoms Hypertrophy of prostate with urinary obstruction and other lower urinary tract symptoms (LUTS) Hypertension, unspecified type ROAS M (obstructive sleep apnea) Obstructive sleep apnea (adult) (pediatric) Class 2 obesity due to excess calories without serious comorbidity in adult, unspecified BMI Iron deficiency anemia, unspecified iron deficiency anemia type Renal cell carcinoma of left kidney (HCC)- Primary High risk medication use Encounter for long-term (current) use of other medications Thyroid nodule Nontoxic uninodular goiter [facility] Diagnosis Pre-op evaluation- Primary Preoperative examination, unspecified Depression, unspecified depression type Type 2 diabetes mellitus without complication, unspecified whether 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) BPH with obstruction/lower urinary tract symptoms Hypertrophy of prostate with urinary obstruction and other lower urinary tract symptoms (LUTS) Hypertension, unspecified type ROSA M (obstructive sleep apnea) Obstructive sleep apnea (adult) (pediatric) Class 2 obesity due to excess calories without serious comorbidity in adult, unspecified BMI Iron deficiency anemia, unspecified iron deficiency anemia type Type 2 diabetes mellitus without complication, unspecified whether nursing home insulin use (HCC)- Primary 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 documented in this encounter [facility] note* Diagnosis Pre-op evaluation- Primary Preoperative examination, unspecified Depression, unspecified depression type Type 2 diabetes mellitus without complication, unspecified whether 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) BPH with obstruction/lower urinary tract symptoms Hypertrophy of prostate with urinary obstruction and other lower urinary tract symptoms (LUTS) Hypertension, unspecified type ROSA M (obstructive sleep apnea) Obstructive sleep apnea (adult) (pediatric) Class 2 obesity due to excess calories without serious comorbidity in adult, unspecified BMI Iron deficiency anemia, unspecified iron deficiency anemia type Renal cell carcinoma of left kidney (HCC)- Primary documented in this encounter [facility] note* Diagnosis Pre-op evaluation- Primary Preoperative examination, unspecified Depression, unspecified depression type Type 2 diabetes mellitus without complication, unspecified whether 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) BPH with obstruction/lower urinary tract symptoms Hypertrophy of prostate with urinary obstruction and other lower urinary tract symptoms (LUTS) Hypertension, unspecified type ROSA M (obstructive sleep apnea) Obstructive sleep apnea (adult) (pediatric) Class 2 obesity due to excess calories without serious comorbidity in adult, unspecified BMI Iron deficiency anemia, unspecified iron deficiency anemia type Renal cell carcinoma of left kidney (HCC)- Primary documented in this encounter [facility] course Narrative No data available for this section [facility] Hospital Discharge instructions No data available for this section [facility] Progress note No data available for this section [facility] reason for referral (narrative)No reason for referral [facility] Phone: Reason for visit Narrative* [place] Prior Authorization (Routine) - Authorized Specialty Diagnoses / Procedures Referred By Contac t Referred To Contact Diagnoses Intestinal malabsorption, unspecified type (HCC) Iron deficiency anemia, unspecified iron deficiency anemia type Procedures IRON SUCROSE INJECTION PER 1 MG Rbo Romero DOCTOR OF CHIROPRACTIC.QUARRY PLUG [employer] FEATHER DRILLER [address] [place] [address] Phone: tel: fax: Rob Romero APRN.[employer]ATH[employer] DRILLER [address] [place] [address] Phone: tel: fax: Referral ID Status Reason Start Date Expiration Date V isits Requested Visits Authorized [id number] Authorized 02/10/2025 10/01/2025 99 99 [facility] for visit Narrative* Consult, Test, Treat (Routine) - Closed Specialty Diagnoses / Procedures Referred By Contac t Referred To Contact Hematology / HEMATOLOGY/ONCOLOGY Diagnoses Malignant neoplasm of left kidney, except renal pelvis (HCC) EKG Procedures OFFICE/OUTPATIENT ESTABLISHED MOD [facility] 30 MIN POINT OF CARE TEST Ernesto Phoenix MD [address] [place] [address] Phone: tel: fax: Landen Ellis Nurse Michael [address] [place] [address] Phone: tel: Referral ID Status Reason Start Date Expiration Date Visits Re quested Visits Authorized [id number] Closed 04/18/2025 10/01/2025 1 1 [facility] for visit Narrative* [place] Prior Authorization (Routine) - Authorized Specialty Diagnoses / Procedures Referred By Contac t Referred To Contact Diagnoses 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) Renal cell carcinoma of left kidney (HCC) Procedures INJ PEMBROLIZUMAB Jeannine Young MD [address] [place] [address] Phone: tel: fax: Hematology/Oncology [address] [place] [address] Phone: tel: Referral ID Status Reason Start Date Expiration Date V isits Requested Visits Authorized [id number] Authorized 04/15/2025 10/16/2025 99 99 [facility] Summary Purpose Family History Relationship Condition Age at Onset Recorded Date/T sofie mother Dementia Unknown father Cerebrovascular accident (CVA) Unknown Advance Directives Advance Directive Response Recorded Date/ Time Advance Directives No April 09 4:13pm Chief Complaint and Reason for Visit Chief Complaint Admit Date CKD 3 April 22, 2025 3:43 pm Reason for Visit Admit Date Anemia of renal disease April 22, 2025 3:43pm Chronic kidney disease, stage IV (severe ) April 22, 2025 3:43pm Diabetic nephropathy April 22, 2025 3:4 3pm History of nephrectomy, left April 22, 2025 3:43pm Hypertensive nephropathy April 22, 2025 3:43pm Hyperuricemia April 22, 2025 3:43 pm Additional Source Comments (unrecognized sect ion and content) No Status Records FoundNo Status Records FoundNo Status Records FoundNo Status Records FoundNo Status Records FoundNo Status Records FoundNo Status Records Found INFORMATION SOURCE (unrecogn ized section and content) DATE CREATED AUTHOR 09/03/2022 [facility] DATE CREATED AUTHOR AUTHOR'S ORGANIZ ATION 10/25/2024 [facility] DATE CREATED AUTHOR AUTHOR'S ORGANIZ ATION 03/14/2025 [facility] DATE CREATED AUTHOR AUTHOR'S ORGANIZ ATION 03/17/2025 Gooden Lagrange [facility] DATE CREATED AUTHOR AUTHOR'S ORGANIZ ATION 04/05/2025 [facility] DATE CREATED AUTHOR AUTHOR'S ORGANIZ ATION 04/05/[address] [facility] DATE CREATED AUTHOR AUTHOR'S ORGANIZ ATION 05/21/2025 [facility] Teams (unrecognized sec tion and content) Team Status: Inactive Member Role Status Dates ALEA Cook Attending Provider Active Start: October 08, 2024 End: October 08, 2024 Team Status: Inactive Member Role Status Dates Nikolai Acosta MD Attending Provider Active St art: November 11, 2024 End: November 11, 2024 Mophead Trimmer And Wrapper Relationship Specialty Start Date End Date Jessica Davalos CNP [address] [place] [facility] [place] [place] [address] PCP - General Internal Medicine 02/07/25 Mophead Trimmer And Wrapper Relationship Specialty Start Date End Date Jessica Davalos CNP [address] [place] [address] PCP - General Internal Medicine 02/07/25 Mophead Trimmer And Wrapper Relationship Specialty Start Date End Date Jessica Davalos CNP [address] [place] [facility] [place] [address] PCP - General Internal Medicine 02/07/25 Mophead Trimmer And Wrapper Relationship Specialty Start Date End Date Jessica Davalos CNP [address] [place] [facility] [place] [address] PCP - General Internal Medicine 02/07/25 Mophead Trimmer And Wrapper Relationship Specialty Start Date End Date Jessica Davalos CNP [address] [facility] [place] [address] PCP - General Internal Medicine 02/07/25 Mophead Trimmer And Wrapper Relationship Specialty Start Date End Date Jessica Davalos CNP [address] [place] [facility] [place] [address] PCP - General Internal Medicine 02/07/25 Mophead Trimmer And Wrapper Relationship Specialty Start Date End Date Jessica Davalos CNP [address] [place] [facility] [place] [address] PCP - General Internal Medicine 02/07/25 Mophead Trimmer And Wrapper Relationship Specialty Start Date End Date Jessica Davalos CNP [address] [place] [address] PCP - General Internal Medicine 02/07/25 Mophead Trimmer And Wrapper Relationship Specialty Start Date End Date Jessica Davalos CNP [address] [place] [address] PCP - General Internal Medicine 02/07/25 Mophead Trimmer And Wrapper Relationship Specialty Start Date End Date Jessica Davalos CNP [address] [place] [address] PCP - General Internal Medicine 02/07/25 Mophead Trimmer And Wrapper Relationship Specialty Start Date End Date Jessica Davalos CNP [address] [place] [address] PCP - General Internal Medicine 02/07/25 Mophead Trimmer And Wrapper Relationship Specialty Start Date End Date Jessica Davalos CNP [address] [place] [address] PCP - General Internal Medicine 02/07/25 Mophead Trimmer And Wrapper Relationship Specialty Start Date End Date Jessica Davalos CNP [address] [place] [address] PCP - General Internal Medicine 02/07/25 Valerie Mosqueda RN [address] [facility] [address] [place], [facility] Specialty Instructor Private Hematology/Oncology 03/28/25 Ernesto Phoenix MD [address] [place], [facility] Physician Hematology/Oncology 03/28/25 Mophead Trimmer And Wrapper Relationship Specialty Start Date End Date Jessica Davalos CNP [address] [place] [address] PCP - General Internal Medicine 02/07/25 Valerie Mosqueda RN [address] [place] [address] Specialty Instructor Private Hematology/Oncology 03/28/25 Ernesto Phoenix MD [address] [place] [address] Physician Hematology/Oncology 03/28/25 Mophead Trimmer And Wrapper Relationship Specialty Start Date End Date Jessica Davalos CNP [address] [place] [address] PCP - General Internal Medicine 02/07/25 Valerie Mosqueda RN [address] [facility] [address] Specialty Instructor Private Hematology/Oncology 03/28/25 Ernesto Phoenix MD [address] [place] [address] Physician Hematology/Oncology 03/28/25 Mophead Trimmer And Wrapper Relationship Specialty Start Date End Date Jessica Davalos CNP [address] [place] [address] PCP - General Internal Medicine 02/07/25 Valerie Mosqueda RN [address] [place] [address] Specialty Instructor Private Hematology/Oncology 03/28/25 Ernesto Phoenix MD [address] [place] [address] Physician Hematology/Oncology 03/28/25 Mophead Trimmer And Wrapper Relationship Specialty Start Date End Date Jessica Davalos CNP [address] [place] [address] PCP - General Internal Medicine 02/07/25 Valerie Mosqueda RN [address] [facility] [address] Specialty Instructor Private Hematology/Oncology 03/28/25 Ernesto Phoenix MD [address] [place] [address] Physician Hematology/Oncology 03/28/25 Mophead Trimmer And Wrapper Relationship Specialty Start Date End Date Jessica Davalos CNP [address] [place] [address] PCP - General Internal Medicine 02/07/25 Valerie Mosqueda RN [address] [facility] [address] Specialty Instructor Private Hematology/Oncology 03/28/25 Ernesto Phoenix MD [address] [place] [address] Physician Hematology/Oncology 03/28/25 Mophead Trimmer And Wrapper Relationship Specialty Start Date End Date Jessica Davalos CNP [address] [place] [address] PCP - General Internal Medicine 02/07/25 Valerie Mosqueda RN [address] [place] [address] Specialty Instructor Private Hematology/Oncology 03/28/25 Ernesto Phoenix MD [address] [place] [address] Physician Hematology/Oncology 03/28/25 Mophead Trimmer And Wrapper Relationship Specialty Start Date End Date Jessica Davalos CNP [address] [place] [address] PCP - General Internal Medicine 02/07/25 Valerie Mosqueda, RN [address] [facility] [address] Specialty Instructor Private Hematology/Oncology 03/28/25 Ernesto Phoenix MD [address] [facility] [place] [address] Physician Hematology/Oncology 03/28/25 Mophead Trimmer And Wrapper Relationship Specialty Start Date End Date Jessica Davalos, QU[employer] FEATHER DRILLER [address] [place] [address] PCP - General Internal Medicine 02/07/25 Valerie Mosqueda RN [address] [facility] [place] [address] Specialty Instructor Private Hematology/Oncology 03/28/25 Ernesto Phoenix MD [address] [place] [address] Physician Hematology/Oncology 03/28/25 [place] [address] [place] [id number] Physician Hematology 04/09/25 Madelin Mc RN Specialty Instructor Private Hematology/Oncology 04/09/25 Mophead Trimmer And Wrapper Relationship Specialty Start Date End Date Jessica Davalos CNP [address] [place] [address] PCP - General Internal Medicine 02/07/25 Valerie Mosqueda RN [address] [facility] [place] [address] Specialty Instructor Private Hematology/Oncology 03/28/25 Ernesto Phoenix MD [address] [facility] [place] [address] Physician Hematology/Oncology 03/28/25 [place] [address] [place] [id number] Physician Hematology 04/09/25 Madelin Mc, RN Specialty Instructor Private Hematology/Oncology 04/09/25 Mophead Trimmer And Wrapper Relationship Specialty Start Date End Date Jessica Davalos, QUARR[employer] PL[employer] FEATHER DRILLER [address] [place] [address] PCP - General Internal Medicine 02/07/25 Valerie Mosqueda, JUANA [address] [place] [address] Specialty Instructor Private Hematology/Oncology 03/28/25 Ernesto Phoenix MD [address] [facility] [place] [address] Physician Hematology/Oncology 03/28/25 [place] [address] [place] [id number] Physician Hematology 04/09/25 Madelin Mc, RN Specialty Instructor Private Hematology/Oncology 04/09/25 Mophead Trimmer And Wrapper Relationship Specialty Start Date End Date Jessica Davalos, QUARRY [employer] FEATHER DRILLER [address] [place] [address] PCP - General Internal Medicine 02/07/25 Valerie Mosqueda RN [address] [place] [address] Specialty Instructor Private Hematology/Oncology 03/28/25 Ernesto Phoenix MD [address] [place] [address] Physician Hematology/Oncology 03/28/25 [place] [address] [place] [id number] Physician Hematology 04/09/25 Madelin Mc RN Specialty Instructor Private Hematology/Oncology 04/09/25 Mophead Trimmer And Wrapper Relationship Specialty Start Date End Date Jessica Davalos CNP [address] [place] [address] PCP - General Internal Medicine 02/07/25 Valerie Mosqueda RN [address] [place], [facility] Specialty Instructor Private Hematology/Oncology 03/28/25 Ernesto Phoenix MD [address] [place] [address] Physician Hematology/Oncology 03/28/25 [place] [address] [place] [id number] Physician Hematology 04/09/25 Madelin Mc RN Specialty Instructor Private Hematology/Oncology 04/09/25 Myrtle Holland, OLIVER Box Inspector 04/11/25 Mophead Trimmer And Wrapper Relationship Specialty Start Date End Date Jessica Davalos CNP [address] [place] [address] PCP - General Internal Medicine 02/07/25 Valerie Mosqueda RN [address] [place] [address] Specialty Instructor Private Hematology/Oncology 03/28/25 Ernesto Phoenix MD [address] [place] [address] Physician Hematology/Oncology 03/28/25 [place] [address] [place] [address] Physician Hematology 04/09/25 Madelin Mc RN Specialty Instructor Private Hematology/Oncology 04/09/25 Myrtle Holland LSW Box Inspector 04/11/25 Mophead Trimmer And Wrapper Relationship Specialty Start Date End Date Jessica Davalos CNP [address] [place] [address] PCP - General Internal Medicine 02/07/25 Valerie Mosqueda, JUANA [address] [place] [address] Specialty Instructor Private Hematology/Oncology 03/28/25 Ernesto Phoenix MD [address] [place] [address] Physician Hematology/Oncology 03/28/25 [place] [address] [place] [id number] Physician Hematology 04/09/25 Madelin Mc RN Specialty Instructor Private Hematology/Oncology 04/09/25 Myrtle Holland, [facility] Box Inspector 04/11/[address] [place] [address] Nutrition 04/17/25 Mophead Trimmer And Wrapper Relationship Specialty Start Date End Date Jessica Davalos CNP [address] [place] [address] PCP - General Internal Medicine 02/07/25 Valerie Mosqueda RN [address] [place] [address] Specialty Instructor Private Hematology/Oncology 03/28/25 Ernesto Phoenix MD [address] [place] [address] Physician Hematology/Oncology 03/28/25 [place] [address] [place] [address] Physician Hematology 04/09/25 Madelin Mc RN Specialty Instructor Private Hematology/Oncology 04/09/25 Myrtle Holland, RISK MANAGEMENT INTERN Box Inspector 04/11/25 Yesica Calderon, DARYL [address] [place] [address] Nutrition 04/17/25 Mophead Trimmer And Wrapper Relationship Specialty Start Date End Date Jessica Davalos, DEEP [address] [place] [address] PCP - General Internal Medicine 02/07/25 Valerie Mosqueda, RN [address] [place] [address] Specialty Instructor Private Hematology/Oncology 03/28/25 Ernesto Phoenix MD [address] [place] [address] Physician Hematology/Oncology 03/28/25 [place] [address] [place] [address] Physician Hematology 04/09/25 Madelin Mc RN Specialty Instructor Private Hematology/Oncology 04/09/25 Mytrle Holland, [facility] Box Inspector 04/11/25 Yesica Calderon, DARYL [address] [place] [address] Nutrition 04/17/25 Mophead Trimmer And Wrapper Relationship Specialty Start Date End Date Jessica Davalos CNP [address] [place] [address] PCP - General Internal Medicine 02/07/25 Valerie Mosqueda RN [address] [place] [address] Specialty Instructor Private Hematology/Oncology 03/28/25 Ernesto Phoenix MD [address] [place] [address] Physician Hematology/Oncology 03/28/25 [place] [address] [place] [id number] Physician Hematology 04/09/25 Madelin Mc RN Specialty Instructor Private Hematology/Oncology 04/09/25 Myrtle Holland, RISK MANAGEMENT INTERN Box Inspector 04/11/25 Yesica Calderon, DARYL [facility] [place] [id number] Nutrition 04/17/25 Mophead Trimmer And Wrapper Relationship Specialty Start Date End Date Jessica Davalos CNP [address] [place] [address] PCP - General Internal Medicine 02/07/25 Valerie Mosqueda RN [address] [facility] [place] [address] Specialty Instructor Private Hematology/Oncology 03/28/25 Ernesto Phoenix MD [address] [place] [address] Physician Hematology/Oncology 03/28/25 [place] [address] [place] [address] Physician Hematology 04/09/25 Madelin Mc RN Specialty Instructor Private Hematology/Oncology 04/09/25 Myrtle Holland, [facility] Box Inspector 04/11/25 Yesica Calderon, DARYL [address] [place] [address] Nutrition 04/17/25 Mophead Trimmer And Wrapper Relationship Specialty Start Date End Date Jessica Davalos CNP [address] [place] [address] PCP - General Internal Medicine 02/07/25 Valerie Mosqueda RN [address] [facility] [place] [address] Specialty Instructor Private Hematology/Oncology 03/28/25 Ernesto Phoenix MD [address] [place] [address] [place] [address] Physician Hematology/Oncology 03/28/25 [place] [address] [place] [phone] Physician Hematology 04/09/25 Madelin Mc, JUANA Specialty Instructor Private Hematology/Oncology 04/09/25 Myrtle Holland LSW Box Inspector 04/11/[address] [place] [address] Nutrition 04/17/25 Team Status: Active Member Role Status Dates Jessica Davalos NP-Rodolfo Primary Care Provider Active Team Status: Inactive Member Role Status Dates Jessica Davalos NP-C Primary Care Provider Active Start: April 22, 2025 End: April 22, 2025 Felton Urbina MD Attending Provider Active Star t: April 22, 2025 End: April 22, 2025 Mophead Trimmer And Wrapper Relationship Specialty Start Date End Date Jessica Davalos CNP [address] [place] [address] PCP - General Internal Medicine 02/07/25 Valerie Mosqueda, JUANA [address] [place] [address] Specialty Instructor Private Hematology/Oncology 03/28/25 Ernesto Phoenix MD [address] [place] [address] [place] [address] Physician Hematology/Oncology 03/28/25 [place] [address] [place] [address] Physician Hematology 04/09/25 Madelin Mc RN Specialty Instructor Private Hematology/Oncology 04/09/25 Myrtle Holland, RISK MANAGEMENT INTERN Box Inspector 04/11/25 Yesica Calderon, DARYL [address] [place] [address] Nutrition 04/17/25 Mophead Trimmer And Wrapper Relationship Specialty Start Date End Date Jessica Davalos, DEEP [address] [place] [address] PCP - General Internal Medicine 02/07/25 Valerie Mosqueda, RN [address] [facility] [address] Specialty Instructor Private Hematology/Oncology 03/28/25 Ernesto Phoenix MD [address] [place] [address] Physician Hematology/Oncology 03/28/25 [place] [address] [place] [address] Physician Hematology 04/09/25 Madelin Mc RN Specialty Instructor Private Hematology/Oncology 04/09/25 Myrtle Holland, [facility] Box Inspector 04/11/25 Yesica Calderon, DARYL [address] [place] [address] Nutrition 04/17/25 Mophead Trimmer And Wrapper Relationship Specialty Start Date End Date Jessica Davalos CNP [address] [place] [address] PCP - General Internal Medicine 02/07/25 Valerie Mosqueda, RN [address] [facility] [place] [address] Specialty Instructor Private Hematology/Oncology 03/28/25 Ernesto Phoenix MD [address] [facility] [address] Physician Hematology/Oncology 03/28/25 [place] [address] [place] [id number] Physician Hematology 04/09/25 Madelin Mc RN Specialty Instructor Private Hematology/Oncology 04/09/25 Myrtle Holland, RISK MANAGEMENT INTERN Box Inspector 04/11/25 Yesica Calderon, DARYL [facility] [place] [address] Nutrition 04/17/25 Mophead Trimmer And Wrapper Relationship Specialty Start Date End Date Jessica Davalos CNP [address] [place] [address] PCP - General Internal Medicine 02/07/25 Valerie Mosqueda RN [address] [facility] [place] [address] Specialty Instructor Private Hematology/Oncology 03/28/25 Ernesto Phoenix MD [address] [facility] [address] [place] [id number] Physician Hematology/Oncology 03/28/25 [place] [address] [place] [address] Physician Hematology 04/09/25 Madelin Mc RN Specialty Instructor Private Hematology/Oncology 04/09/25 Myrtle Holland, [facility] Box Inspector 04/11/25 Yesica Calderon, DARYL [address] [place] [address] Nutrition 04/17/25 Mophead Trimmer And Wrapper Relationship Specialty Start Date End Date Jessica Davalos CNP [address] [place] [address] PCP - General Internal Medicine 02/07/25 Valerie Mosqueda RN [address] [facility] [place] [address] Specialty Instructor Private Hematology/Oncology 03/28/25 Ernesto Phoenix MD [address] [place] [address] [place] [address] Physician Hematology/Oncology 03/28/25 [place] [address] [place] [address] Physician Hematology 04/09/25 Madelin Mc RN Specialty Instructor Private Hematology/Oncology 04/09/25 Myrtle Holland LSW Box Inspector 04/11/[address] [place] [address] Nutrition 04/17/25 Goals (unrecognized section and content) Goals may be documented in a n alternate section No data available for this section No data available for this sectionGoals may be documented in an alternate section No data available for this sectionGoals may be documented in an alternate section Source Comments (unrecognize d section and content) In the event this informatio n is protected by the Federal Confidentiality of Alcohol and Drug Abuse Patient Records regulations: The Federal rules restrict any use of the information to criminally investigate or prosecute any alcohol or drug abuse patient.[facility] the event this information is protected by the Federal Confidentiality of Alcohol and Drug Abuse Patient Records regulations: The Federal rules restrict any use of the information to criminally investigate or prosecute any alcohol or drug abuse patient.[facility]ighIn the event this information is protected by the Federal Confidentiality of Alcohol and Drug Abuse Patient Records regulations: The Federal rules restrict any use of the information to criminally investigate or prosecute any alcohol or drug abuse patient.[facility]ighIn the event this information is protected by the Federal Confidentiality of Alcohol and Drug Abuse Patient Records regulations: The Federal rules restrict any use of the information to criminally investigate or prosecute any alcohol or drug abuse patient.[facility]ighIn the event this information is protected by the Federal Confidentiality of Alcohol and Drug Abuse Patient Records regulations: The Federal rules restrict any use of the information to criminally investigate or prosecute any alcohol or drug abuse patient.[facility]ighIn the event this information is protected by the Federal Confidentiality of Alcohol and Drug Abuse Patient Records regulations: The Federal rules restrict any use of the information to criminally investigate or prosecute any alcohol or drug abuse patient.[facility]ighIn the event this information is protected by the Federal Confidentiality of Alcohol and Drug Abuse Patient Records regulations: The Federal rules restrict any use of the information to criminally investigate or prosecute any alcohol or drug abuse patient.[facility]ighIn the event this information is protected by the Federal Confidentiality of Alcohol and Drug Abuse Patient Records regulations: The Federal rules restrict any use of the information to criminally investigate or prosecute any alcohol or drug abuse patient.[facility]ighIn the event this information is protected by the Federal Confidentiality of Alcohol and Drug Abuse Patient Records regulations: The Federal rules restrict any use of the information to criminally investigate or prosecute any alcohol or drug abuse patient.[facility]ighIn the event this information is protected by the Federal Confidentiality of Alcohol and Drug Abuse Patient Records regulations: The Federal rules restrict any use of the information to criminally investigate or prosecute any alcohol or drug abuse patient.[facility]ighIn the event this information is protected by the Federal Confidentiality of Alcohol and Drug Abuse Patient Records regulations: The Federal rules restrict any use of the information to criminally investigate or prosecute any alcohol or drug abuse patient.[facility]ighIn the event this information is protected by the Federal Confidentiality of Alcohol and Drug Abuse Patient Records regulations: The Federal rules restrict any use of the information to criminally investigate or prosecute any alcohol or drug abuse patient.[facility]ighIn the event this information is protected by the Federal Confidentiality of Alcohol and Drug Abuse Patient Records regulations: The Federal rules restrict any use of the information to criminally investigate or prosecute any alcohol or drug abuse patient.[facility]ighIn the event this information is protected by the Federal Confidentiality of Alcohol and Drug Abuse Patient Records regulations: The Federal rules restrict any use of the information to criminally investigate or prosecute any alcohol or drug abuse patient.[facility]ighIn the event this information is protected by the Federal Confidentiality of Alcohol and Drug Abuse Patient Records regulations: The Federal rules restrict any use of the information to criminally investigate or prosecute any alcohol or drug abuse patient.[facility]ighIn the event this information is protected by the Federal Confidentiality of Alcohol and Drug Abuse Patient Records regulations: The Federal rules restrict any use of the information to criminally investigate or prosecute any alcohol or drug abuse patient.[facility]ighIn the event this information is protected by the Federal Confidentiality of Alcohol and Drug Abuse Patient Records regulations: The Federal rules restrict any use of the information to criminally investigate or prosecute any alcohol or drug abuse patient.[facility]ighIn the event this information is protected by the Federal Confidentiality of Alcohol and Drug Abuse Patient Records regulations: The Federal rules restrict any use of the information to criminally investigate or prosecute any alcohol or drug abuse patient.[facility]ighIn the event this information is protected by the Federal Confidentiality of Alcohol and Drug Abuse Patient Records regulations: The Federal rules restrict any use of the information to criminally investigate or prosecute any alcohol or drug abuse patient.[facility]ighIn the event this information is protected by the Federal Confidentiality of Alcohol and Drug Abuse Patient Records regulations: The Federal rules restrict any use of the information to criminally investigate or prosecute any alcohol or drug abuse patient.[facility]ighIn the event this information is protected by the Federal Confidentiality of Alcohol and Drug Abuse Patient Records regulations: The Federal rules restrict any use of the information to criminally investigate or prosecute any alcohol or drug abuse patient.[facility]ighIn the event this information is protected by the Federal Confidentiality of Alcohol and Drug Abuse Patient Records regulations: The Federal rules restrict any use of the information to criminally investigate or prosecute any alcohol or drug abuse patient.[facility]ighIn the event this information is protected by the Federal Confidentiality of Alcohol and Drug Abuse Patient Records regulations: The Federal rules restrict any use of the information to criminally investigate or prosecute any alcohol or drug abuse patient.[facility]ighIn the event this information is protected by the Federal Confidentiality of Alcohol and Drug Abuse Patient Records regulations: The Federal rules restrict any use of the information to criminally investigate or prosecute any alcohol or drug abuse patient.[facility]ighIn the event this information is protected by the Federal Confidentiality of Alcohol and Drug Abuse Patient Records regulations: The Federal rules restrict any use of the information to criminally investigate or prosecute any alcohol or drug abuse patient.[facility]ighIn the event this information is protected by the Federal Confidentiality of Alcohol and Drug Abuse Patient Records regulations: The Federal rules restrict any use of the information to criminally investigate or prosecute any alcohol or drug abuse patient.[facility]ighIn the event this information is protected by the Federal Confidentiality of Alcohol and Drug Abuse Patient Records regulations: The Federal rules restrict any use of the information to criminally investigate or prosecute any alcohol or drug abuse patient.[facility]ighIn the event this information is protected by the Federal Confidentiality of Alcohol and Drug Abuse Patient Records regulations: The Federal rules restrict any use of the information to criminally investigate or prosecute any alcohol or drug abuse patient.[facility]ighIn the event this information is protected by the Federal Confidentiality of Alcohol and Drug Abuse Patient Records regulations: The Federal rules restrict any use of the information to criminally investigate or prosecute any alcohol or drug abuse patient.[facility]ighIn the event this information is protected by the Federal Confidentiality of Alcohol and Drug Abuse Patient Records regulations: The Federal rules restrict any use of the information to criminally investigate or prosecute any alcohol or drug abuse patient.[facility]ighIn the event this information is protected by the Federal Confidentiality of Alcohol and Drug Abuse Patient Records regulations: The Federal rules restrict any use of the information to criminally investigate or prosecute any alcohol or drug abuse patient.[facility]ighIn the event this information is protected by the Federal Confidentiality of Alcohol and Drug Abuse Patient Records regulations: The Federal rules restrict any use of the information to criminally investigate or prosecute any alcohol or drug abuse patient.[facility]ighIn the event this information is protected by the Federal Confidentiality of Alcohol and Drug Abuse Patient Records regulations: The Federal rules restrict any use of the information to criminally investigate or prosecute any alcohol or drug abuse patient.[facility]ighIn the event this information is protected by the Federal Confidentiality of Alcohol and Drug Abuse Patient Records regulations: The Federal rules restrict any use of the information to criminally investigate or prosecute any alcohol or drug abuse patient.[facility]ighIn the event this information is protected by the Federal Confidentiality of Alcohol and Drug Abuse Patient Records regulations: The Federal rules restrict any use of the information to criminally investigate or prosecute any alcohol or drug abuse patient.[facility]ighIn the event this information is protected by the Federal Confidentiality of Alcohol and Drug Abuse Patient Records regulations: The Federal rules restrict any use of the information to criminally investigate or prosecute any alcohol or drug abuse patient.[facility]ighIn the event this information is protected by the Federal Confidentiality of Alcohol and Drug Abuse Patient Records regulations: The Federal rules restrict any use of the information to criminally investigate or prosecute any alcohol or drug abuse patient.[facility]ighIn the event this information is protected by the Federal Confidentiality of Alcohol and Drug Abuse Patient Records regulations: The Federal rules restrict any use of the information to criminally investigate or prosecute any alcohol or drug abuse patient.[facility]ighIn the event this information is protected by the Federal Confidentiality of Alcohol and Drug Abuse Patient Records regulations: The Federal rules restrict any use of the information to criminally investigate or prosecute any alcohol or drug abuse patient.[facility]ighIn the event this information is protected by the Federal Confidentiality of Alcohol and Drug Abuse Patient Records regulations: The Federal rules restrict any use of the information to criminally investigate or prosecute any alcohol or drug abuse patient.[facility]ighIn the event this information is protected by the Federal Confidentiality of Alcohol and Drug Abuse Patient Records regulations: The Federal rules restrict any use of the information to criminally investigate or prosecute any alcohol or drug abuse patient.[facility]ighIn the event this information is protected by the Federal Confidentiality of Alcohol and Drug Abuse Patient Records regulations: The Federal rules restrict any use of the information to criminally investigate or prosecute any alcohol or drug abuse patient.[facility]ighIn the event this information is protected by the Federal Confidentiality of Alcohol and Drug Abuse Patient Records regulations: The Federal rules restrict any use of the information to criminally investigate or prosecute any alcohol or drug abuse patient.[facility]ighIn the event this information is protected by the Federal Confidentiality of Alcohol and Drug Abuse Patient Records regulations: The Federal rules restrict any use of the information to criminally investigate or prosecute any alcohol or drug abuse patient.[facility]ighIn the event this information is protected by the Federal Confidentiality of Alcohol and Drug Abuse Patient Records regulations: The Federal rules restrict any use of the information to criminally investigate or prosecute any alcohol or drug abuse patient.[facility]ighIn the event this information is protected by the Federal Confidentiality of Alcohol and Drug Abuse Patient Records regulations: The Federal rules restrict any use of the information to criminally investigate or prosecute any alcohol or drug abuse patient.[facility]ighIn the event this information is protected by the Federal Confidentiality of Alcohol and Drug Abuse Patient Records regulations: The Federal rules restrict any use of the information to criminally investigate or prosecute any alcohol or drug abuse patient.[facility]ighIn the event this information is protected by the Federal Confidentiality of Alcohol and Drug Abuse Patient Records regulations: The Federal rules restrict any use of the information to criminally investigate or prosecute any alcohol or drug abuse patient.[facility]ighIn the event this information is protected by the Federal Confidentiality of Alcohol and Drug Abuse Patient Records regulations: The Federal rules restrict any use of the information to criminally investigate or prosecute any alcohol or drug abuse patient.[facility]ighIn the event this information is protected by the Federal Confidentiality of Alcohol and Drug Abuse Patient Records regulations: The Federal rules restrict any use of the information to criminally investigate or prosecute any alcohol or drug abuse patient.[facility]ighIn the event this information is protected by the Federal Confidentiality of Alcohol and Drug Abuse Patient Records regulations: The Federal rules restrict any use of the information to criminally investigate or prosecute any alcohol or drug abuse patient.[facility]ighIn the event this information is protected by the Federal Confidentiality of Alcohol and Drug Abuse Patient Records regulations: The Federal rules restrict any use of the information to criminally investigate or prosecute any alcohol or drug abuse patient.[facility]ighIn the event this information is protected by the Federal Confidentiality of Alcohol and Drug Abuse Patient Records regulations: The Federal rules restrict any use of the information to criminally investigate or prosecute any alcohol or drug abuse patient.[facility]ighIn the event this information is protected by the Federal Confidentiality of Alcohol and Drug Abuse Patient Records regulations: The Federal rules restrict any use of the information to criminally investigate or prosecute any alcohol or drug abuse patient.[facility] Reason for Visit (unrecogniz ed section and content) Reason Comments Consult Specialty Diagnoses / Procedures Referred By Cassandra mccauley Referred To Contact Urology / UROLOGY Diagnoses Renal mass renal mass Procedures OFFICE/OUTPATIENT NEW MODERATE MDM 45 MINUTES NEW UROL Self Bing Arvizu MD [address] [place] [address] Phone: tel: fax: Referral ID Status Reason Start Date Expiration Date Visits Re quested Visits Authorized [id number] Closed 01/03/2025 10/01/2025 1 1 Reason Comments REnal Biopsy Reason Comments BIOPSY APPOINTMENT Reason Comments Pre-Op Visit Specialty Diagnoses / Procedures Referred By Cassandra mccauley Referred To Contact Anesthesiology / ANESTHESIOLOGY Diagnoses DOS 02/27 ROBOTIC LAPAROSCOPIC NEPHRECTOMY PARTIAL [59809] - Abdomen quadrant upper - Left Procedures COMPLETE PACC Bing Arvizu MD [address] [place] [address] Phone: tel: fax: 2, [facility] [address] [place] [address] Phone: tel:[phone] Referral ID Status Reason Start Date Expiration Date V isits Requested Visits Authorized [id number] New Request 02/07/2025 05/08/2025 1 1 Reason Comments Results Reason Comments Patient Update Reason Comments Patient Question Reason Comments Renal Cell Cancer Consult Specialty Diagnoses / Procedures Referred By Contac t Referred To Contact Hematology/Oncology / HEMATOLOGY/ONCOLOGY Diagnoses Renal cell carcinoma (HCC) renal cell carcinoma ref [facility] Bing Celaya MD Procedures OFFICE/OUTPATIENT NEW MODERATE MDM 45 MINUTES [place] [address] [place] [address] Phone: tel: Ernesto Phoenix MD [address] [place] [address] Phone: tel: fax: Referral ID Status Reason Start Date Expiration Date Visits Re quested Visits Authorized [id number] Closed 03/17/2025 10/01/2025 1 1 Reason Comments First Time Treatment Education Specialty Diagnoses / Procedures Referred By Contac t Referred To Contact HEMATOLOGY/ONCOLOGY Diagnoses Examination Chemo ed Keytruda Pt qwil be done with Pet scan Around 10:45am Procedures OFFICE/OUTPATIENT ESTABLISHED MOD MDM 30 MIN CHEMO EDUCATION Ernesto Phoenix MD [address] [place] [address] Phone: tel: fax: Valerie Mosqueda, RN [address] [facility] [address] Phone: tel: Referral ID Status Reason Start Date Expiration Date Visits Re quested Visits Authorized [id number] Closed 04/01/2025 10/01/2025 1 1 Reason Comments Radiology NM Specialty Diagnoses / Procedures Referred By Contac t Referred To Contact MOLECULAR & FUNCTIONAL IMAGING Diagnoses Renal cell carcinoma of left kidney (HCC) Procedures NM PET/CT SKULL-THIGH INITIAL PET IMAGING CT ATTENUATION SKULL BASE MID-THIGH Ernesto Phoenix MD [address] [place] [address] Phone: tel: fax: Molecular Imaging [address] [place] [address] Phone: tel: Referral ID Status Reason Start Date Expiration Date V isits Requested Visits Authorized [id number] Closed Auto-Generate d Referral 04/01/2025 04/17/2026 1 1 Reason Comments Release back to work letter Reason Comments Research IRB [id number] Informed Consent Reason Comments Renal Cell Cancer Reason Comments Referral Information Reason Onset Date Comments Refill Request 04/09/2025 Reason Comments Consult Specialty Diagnoses / Procedures Referred By Contsandie t Referred To Contact HEMATOLOGY/ONCOLOGY Diagnoses Renal cell carcinoma of left kidney (HCC) Procedures CONSULT TO HEMATOLOGY/ONCOLOGY OFFICE/OUTPATIENT [facility] MDM 60 MINUTES Ernesto Phoenix MD [address] [place] [address] [place] [address] Phone: tel: fax: Hematology/Oncology [address] [place] [address] Phone: tel: Referral ID Status Reason Start Date Expiration Date V isits Requested Visits Authorized [id number] Closed PCP Requested Referral 04/08/2025 04/07/2026 1 1 Reason Comments Medication Update Cabometyx Reason Comments Nephrology Referral Reason Comments Care Coordination Treatment plan Reason Comments Medication Authorization Lenvima Reason Comments Oral Anti-cancer Agent Education Lenvati nib Reason Comments Care Coordination Lenvatinib Start Hubert e Reason Comments Care Coordination C1D1 Post Treatment Call & Oral Anti-Cancer Agent Follow Up Reason Comments Lab Orders Reason Comments Nutrition Assessment Specialty Diagnoses / Procedures Referred By Contsandie t Referred To Contact Nutrition / NUTRI [facility] Diagnoses Renal cell carcinoma of left kidney (HCC) Renal cell carcinoma of left kidney (HCC) [C64.2] Procedures SYNCHRONOUS AUDIO-ONLY VISIT EST HIGH MDM 40 MIN PROVIDER SPECIALTY PHONE CALL [facility] [address] [place] [address] Phone: tel: Yesica Calderon, RD [address] [place] [address] Phone: tel: Referral ID Status Reason Start Date Expiration Date Visits Re quested Visits Authorized [id number] Closed 04/17/2025 10/01/2025 1 1 Reason Comments Care Coordination Medication question Reason Comments Care Coordination Treatment prep Reason Comments Care Coordination Medication update Reason Comments Renal Cell Cancer 1 week follow up Specialty Diagnoses / Procedures Referred By Cassandra t Referred To Contact Hematology/Oncology / HEMATOLOGY/ONCOLOGY Diagnoses 1 week followup with lab/ Tox check Procedures EST PATIENT Ernesto Phoenix MD [address] [place] [address] [place] [address] Phone: tel: fax: Ernesto Phoenix MD [address] [place] [address] [place] [address] Phone: tel: fax: Referral ID Status Reason Start Date Expiration Date V isits Requested Visits Authorized [id number] Authorized 05/16/2025 10/01/2025 99 99 Reason Comments Medication Assistance Program [facility] drug application approved FOR RECORDS PERTAINING TO PATIENTS WHO ARE [...] BE BASED ON THE PRIMARY CLINICAL RECORDS. [facility] [employer] [facility]. provides no warranty or guarantee of the accuracy or completeness of information in this document.
[2025-05-24 10:48] LABS: Hematocrit 33.6 % (42.0-54.0); Hemoglobin 11.1 g/dL (14.0-18.0); Immature Granulocytes Abs Auto 0.05 10^3/uL (0.00-0.03); Immature Granulocytes Pct Auto 0.7 % (0.0-0.5); Lymphocytes Absolute Auto 1.1 10^3/uL (1.2-3.8); Mean Corpuscular HGB Conc 33.0 g/dL (29.9-35.2); Mean Corpuscular Hemoglobin 26.8 pg (25.9-34.0); Mean Corpuscular Volume 81.2 fL (80.0-94.0); Platelet Count 177 10^3/uL (150-450); Red Blood Count 4.14 10^6/uL (4.70-6.10); White Blood Count 7.5 10^3/uL (4.0-11.0)
[2025-05-24 11:09] LABS: Alanine Aminotransferase 24 U/L (16-63); Albumin Globulin Ratio 0.7; Albumin Level 3.1 g/dL (3.4-5.0); Alkaline Phosphatase 79 U/L (46-116); Anion Gap 12.6; Aspartate Amino Transferase 19 U/L (15-37); Blood Urea Nitrogen 19.0 mg/dL (7.0-18.0); Calcium 8.7 mg/dL (8.5-10.1); Carbon Dioxide 27.1 mmol/L (21.0-32.0); Chloride 103 mmol/L (98-107); Cholesterol 148 mg/dL (<=200); Estimated GFR (African America 46 (>=60 mL/min/1.73m^2); Estimated GFR (Non-African Ame 38 (>=60 mL/min/1.73m^2); Free T3 2.24 pg/mL (2.18-3.98); Globulin 4.2 g/dL; Glucose 99 mg/dL (74-106); HDL Cholesterol 31 mg/dL (40-60); Potassium 4.7 mmol/L (3.5-5.1); Sodium 138 mmol/L (136-145); Thyroid Stimulating Hormone 3.213 uIU/mL (0.358-3.740); Total Protein 7.3 g/dL (6.4-8.2); Triglycerides 313 mg/dL (<=150); Uric Acid 4.2 mg/dL (3.5-7.2); VLDL CHOLESTEROL 62.6 mg/dL
== END 2025-05-24 10:16 | disposition home or self-care (01) ==
LOC: LAB 10:16
PROVIDERS: PCP Nurse Practitioner Family; Visit Provider Nurse Practitioner Family
DX: Z00.00 Encounter for general adult medical examination without abnormal findings (principal); Z12.5 Encounter for screening for malignant neoplasm of prostate
CPT/HCPCS: 36415; 80053; 80061; 83036; 83525; 84436; 84443; 84481; 84550; 85025; G0103

== ENCOUNTER 2025-05-27 07:15 | Outpatient (OUT) | payer OTHER, SELFPAY ==
--- OUTSIDE RECORDS SUMMARY | 2025-05-27 07:21 | XMS_ITS | CCD ---
Author Organization [facility] Care Team Providers Care Music Artist Name Role Phone JESSICA DAVALOS Attending Unavailable JESSICA DAVALOS Consulting Unavailable SUSANNAH, JESSICA Primary Care Unavailable SUSANNAH, JESSICA Admitting Unavailable Susannah MALL MANAGER-C, Jessica Orozco Attending Provider NIRMALA MENJIVAR Attending Unavailable JESSICA DAVALOS S Referring Unavailable NIRMALA MENJIVAR Attending Unavailable NIRMALA MENJIVAR Admitting Unavailable JESSICA DAVALOS Primary Care Physician Nikolai Acosta MD Attending Provider Unavailable Primary Care Provider Unavailvijaya Davalos CNP, Jessica S Primary Care Provider Nikolai ACOSTA Attending Unavailable Nikolai ACOSTA Attending Unavailable Nikolai ACOSTA Attending Unavailable Nikolai ACOSTA Attending Unavailable Panda ARIAS, Valerie Hernandez Unavailable [phone] Ernesto Phoenix MD Unavailable BING ARVIZU Attending Unavailable SELF Referring Unavailable [...] Unavailable Unavailable Yesica Calderon RD Unavailable Susannah MALL MANAGER-C, Jessica Orozco Primary Care Provider [phone] Carlitos JAMES, Felton Attending Provider Ernesto Phoenix MD Unavailable [phone] SUSANNAH, JESSICA S Primary Care Unavailable VENNEPUREDDY, [...] Medication Allergies] Propensity to adverse reactions (disorder) [facility] Repository (20 sources) tamsulosin; Translations: [TAMSULOSIN] Drug Allergy Other: See Comments [facility] Medications Current Medications Medication Drug Class(es) [...] then 1 tab po QD x 10d, [facility], 182, cm, 10/24/24 9:12:00 EST, Height/Length Dosing, [...] sources) Taking high risk medication; Translations: [Other fdc (current) drug therapy] 04-09-2025 Episodic Other aftercare (1 source) Other intermediate designer (current) drug therapy; Translations: [High risk medication [...] Test Name Value Interpretation Reference Range Facility [facility] 05-20-2025 [facility] Telephone (SDOPRX) SKYLER LE ([id number]) 1960 M Date Time Provider Department 05/20/25 TAMIKA MADISON SDOPRX During your visit today, we recorded the following information about you: Tamika Madison ollie 05/20/2025 8:38 AM Signed [facility] Patient Support fax received stating Skyler has been approved for free Lenvima until 10/01/2025. Tayo Madison, PharmD, BCOP Allergies As of Date: 05/20/2025 Noted Allergy Reaction FLOMAX (TAMSULOSIN) 02/27/2025 14 - Other: See Comments Comments: dizziness and back pain Date Reviewed: 05/16/2025 Reviewed by: Isabella Javier MA - Fully Assessed Reason for Visit: Medication Assistance Program [4072] Cmt: Lenvima free drug application approved Prescriptions [...] Status:Closed by TAMIKA MADISON on 05/20/25 Normal [facility] CBC W Auto Differential pane l (Bld)on 05-16-2025 Basophils (Bld) [#/Vol] 0.13 10*3/uL High <0.11 [facility] Comment on above: Order Comment: Speci men Type: BLOOD SPECIMENOrdering Facility: [facility] Address: [address] [place] [address] Performed By: #### 5 7021-8 ####[facility] LABCLIA [id number] [place] [address] Basophils/100 WBC (Bld) 1.1 % Normal [facility] Comment on above: Order Comment: Speci men Type: BLOOD SPECIMENOrdering Facility: [facility] Address: [address] [place] [address] Performed By: #### 5 7021-8 ####[facility] LABCLIA [id number] [place] [address] Differential cell count method Nom (Bld) Auto Normal [facility] Comment on above: Order Comment: Speci men Type: BLOOD SPECIMENOrdering Facility: [facility] Address: [address] [place] [address] Performed By: #### 5 7021-8 ####[facility] LABCLIA [id number] [place] [address] Eosinophils (Bld) [#/Vol] 0.20 10*3/uL Normal <0.46 [facility] Comment on above: Order Comment: Speci men Type: BLOOD SPECIMENOrdering Facility: [facility] Address: [address] [place] [address] Performed By: #### 5 7021-8 ####[facility] LABCLIA [id number] [place] [address] Eosinophils/100 WBC (Bld) 1.8 % Normal [facility] Comment on above: Order Comment: Speci men Type: BLOOD SPECIMENOrdering Facility: [facility] Address: [address] [place] [address] Performed By: #### 5 7021-8 ####[facility] LABCLIA [id number] [place] [address] Erythrocyte distribution width (RBC) [Ratio] 18.8 % High 11.5-15.0 [facility] Comment on above: Order Comment: Speci men Type: BLOOD SPECIMENOrdering Facility: [facility] Address: [address] [place] [address] Performed By: #### 5 7021-8 ####[facility] LABCLIA [id number] [place] [address] Hematocrit (Bld) [Volume fraction] 37.2 % Low 39.0-51.0 [facility] Comment on above: Order Comment: Speci men Type: BLOOD SPECIMENOrdering Facility: [facility] Address: [address] [place] [address] Performed By: #### 5 7021-8 ####[facility] LABCLIA [id number] [place] [address] Hemoglobin (Bld) [Mass/Vol] 12.4 g/dL Low 13.0-17.0 [facility] Comment on above: Order Comment: Speci men Type: BLOOD SPECIMENOrdering Facility: [facility] Address: [address] [place] [address] Performed By: #### 5 7021-8 ####[facility] LABCLIA [id number] [place] [address] Immature granulocytes (Bld) [#/Vol] 0.05 10*3/uL Normal <0.10 [facility] Comment on above: Order Comment: Speci men Type: BLOOD SPECIMENOrdering Facility: [facility] Address: [address] [place] [address] Performed By: #### 5 7021-8 ####[facility] LABCLIA [id number] [place] [address] Immature granulocytes/100 WBC (Bld) 0.4 % Normal [facility] Comment on above: Order Comment: Speci men Type: BLOOD SPECIMENOrdering Facility: [facility] Address: [address] [place] [address] Performed By: #### 5 7021-8 ####[facility] LABCLIA [id number] [place] [address] Lymphocytes (Bld) [#/Vol] 1.58 10*3/uL Normal 1.00-4.00 [facility] Comment on above: Order Comment: Speci men Type: BLOOD SPECIMENOrdering Facility: [facility] Address: [address] [place] [address] Performed By: #### 5 7021-8 ####[facility] LABCLIA [id number] [place] [address] Lymphocytes/100 WBC (Bld) 13.9 % Normal [facility] Comment on above: Order Comment: Speci men Type: BLOOD SPECIMENOrdering Facility: [facility] Address: [address] [place] [address] Performed By: #### 5 7021-8 ####[facility] LABCLIA [id number] [place] [address] MCH (RBC) [Entitic mass] 26.7 pg Normal 26.0-34.0 [facility] Comment on above: Order Comment: Speci men Type: BLOOD SPECIMENOrdering Facility: [facility] Address: [address] [place] [address] Performed By: #### 5 7021-8 ####[facility] LABCLIA [id number] [place] [address] MCHC (RBC) [Mass/Vol] 33.3 g/dL Normal 30.5-36.0 [facility] Comment on above: Order Comment: Speci men Type: BLOOD SPECIMENOrdering Facility: [facility] Address: [address] [place] [address] Performed By: #### 5 7021-8 ####[facility] LABCLIA [id number] [place] [address] MCV (RBC) [Entitic vol] 80.0 fL Normal 80.0-100.0 [facility] Comment on above: Order Comment: Speci men Type: BLOOD SPECIMENOrdering Facility: [facility] Address: [address] [place] [address] Performed By: #### 5 7021-8 ####[facility] LABCLIA [id number] [place] [address] Monocytes (Bld) [#/Vol] 0.91 10*3/uL High <0.87 [facility] Comment on above: Order Comment: Speci men Type: BLOOD SPECIMENOrdering Facility: [facility] Address: [address] [place] [address] Performed By: #### 5 7021-8 ####[facility] LABCLIA [id number] [place] [address] Monocytes/100 WBC (Bld) 8.0 % Normal [facility] Comment on above: Order Comment: Speci men Type: BLOOD SPECIMENOrdering Facility: [facility] Address: [address] [place] [address] Performed By: #### 5 7021-8 ####[facility] LABCLIA [id number] [place] [address] Neutrophils (Bld) [#/Vol] 8.53 10*3/uL High 1.45-7.50 [facility] Comment on above: Order Comment: Speci men Type: BLOOD SPECIMENOrdering Facility: [facility] Address: [address] [place] [address] Performed By: #### 5 7021-8 ####[facility] LABCLIA [id number] [place] [address] Neutrophils/100 WBC (Bld) 74.8 % Normal [facility] Comment on above: Order Comment: Speci men Type: BLOOD SPECIMENOrdering Facility: [facility] Address: [address] [place] [address] Performed By: #### 5 7021-8 ####[facility] LABCLIA [id number] [place] [address] Nucleated RBC (Bld) [#/Vol] 10*3/uL Normal <0.01 [facility] Comment on above: Order Comment: Speci men Type: BLOOD SPECIMENOrdering Facility: [facility] Address: [address] [place] [address] Performed By: #### 5 7021-8 ####[facility] LABCLIA [id number] [place] [address] Nucleated RBC/100 WBC (Bld) [Ratio] 0.0 /100 WBC Normal [facility] Comment on above: Order Comment: Speci men Type: BLOOD SPECIMENOrdering Facility: [facility] Address: [address] [place] [address] Performed By: #### 5 7021-8 ####[facility] LABCLIA [id number] [place] [address] Platelet mean volume (Bld) [Entitic vol] 9.2 fL Normal 9.0-12.7 [facility] Comment on above: Order Comment: Speci men Type: BLOOD SPECIMENOrdering Facility: [facility] Address: [address] [place] [address] Performed By: #### 5 7021-8 ####[facility] LABCLIA [id number] [place] [address] Platelets (Bld) [#/Vol] 256 10*3/uL Normal 150-400 [facility] Comment on above: Order Comment: Speci men Type: BLOOD SPECIMENOrdering Facility: [facility] Address: [address] [place] [address] Performed By: #### 5 7021-8 ####[facility] LABIA [id number] [place] [address] RBC (Bld) [#/Vol] 4.65 10*6/uL Normal 4.20-6.[address] [facility] Comment on above: Order Comment: Speci men Type: BLOOD SPECIMENOrdering Facility: [facility] Address: [address] [place] [address] Performed By: #### 5 7021-8 ####[facility] LABIA [id number] [place] [address] WBC (Bld) [#/Vol] 11.40 10*3/uL High 3.70-11.00 [facility] Comment on above: Order Comment: Speci men Type: BLOOD SPECIMENOrdering Facility: [facility] Address: [address] [place], [place] [address] Performed By: #### 5 7021-8 ####[facility] LABIA [id number] [place] [address] CNOVSPon 05-16-2025 OVS Visit (SP) Office (HEMASA) SKYLER LE ([id number]) 1960 M Date Time Provider Department 05/16/25 9:20 AM ERNESTO PH[place] During your visit today, we recorded the following information about you: Temperature Pulse Respiration Blood pressure 97.2 degrees 51/minute 16/minute 139/80 Weight Height 116.9 kg 1.78 m Ernesto Phoenix MD 05/16/2025 9:45 AM Signed PATIENT NAME: Skyler Le CLINIC NO.: [id number] ATTENDING PHYSICIAN: Ernesto Phoenix MD DATE OF SERVICE: 05/16/[address] Bing Arvizu [id number] [facility] [address] thank you for referring Skyler Le for [...] unusual findings. Doing well - Works in [employer] and [employer]. - No smoking - No alcohol. - [...] were no (more content not included)... Normal [facility] Comprehensive metabolic 2000 panelon 05-16-2025 Albumin [Mass/Vol] 4.3 g/dL Normal 3.9-4.9 [facility] Comment on above: Order Comment: Speci men Type: BLOOD SPECIMENOrdering Facility: [facility] Address: [address] [place] [address] Performed By: #### 2 4323-8 ####[facility] LABCLIA [id number] [place] [address] ALP [Catalytic activity/Vol] 91 U/L Normal 38-113 [facility] Comment on above: Order Comment: Speci men Type: BLOOD SPECIMENOrdering Facility: [facility] Address: [address] [place] [address] Performed By: #### 2 4323-8 ####[facility] LABCLIA [id number] [place] [address] ALT [Catalytic activity/Vol] 11 U/L Normal 10-54 [facility] Comment on above: Order Comment: Speci men Type: BLOOD SPECIMENOrdering Facility: [facility] Address: [address] [place] [address] Performed By: #### 2 4323-8 ####[facility] LABCLIA [id number] [place] [address] Anion gap [Moles/Vol] 12 mmol/L Normal 8-15 [facility] Comment on above: Order Comment: Speci men Type: BLOOD SPECIMENOrdering Facility: [facility] Address: [address] [place] [address] Performed By: #### 2 4323-8 ####[facility] LABCLIA [id number] [place] [address] AST [Catalytic activity/Vol] 15 U/L Normal 14-40 [facility] Comment on above: Order Comment: Speci men Type: BLOOD SPECIMENOrdering Facility: [facility] Address: [address] [place], [place] [address] Performed By: #### 2 4323-8 ####[facility] LABCLIA [id number] [place] [address] Bilirubin [Mass/Vol] 0.2 mg/dL Normal 0.2-1.3 [facility] Comment on above: Order Comment: Speci men Type: BLOOD SPECIMENOrdering Facility: [facility] Address: [address] [place], [place] [address] Performed By: #### 2 4323-8 ####[facility] LABCLIA [id number] [place] [address] Calcium [Mass/Vol] 9.3 mg/dL Normal 8.5-10.2 [facility] Comment on above: Order Comment: Speci men Type: BLOOD SPECIMENOrdering Facility: [facility] Address: [address] [place] [address] Performed By: #### 2 4323-8 ####[facility] LABCLIA [id number] [place] [address] Chloride [Moles/Vol] 99 mmol/L Normal 98-107 [facility] Comment on above: Order Comment: Speci men Type: BLOOD SPECIMENOrdering Facility: [facility] Address: [address] [place] [address] Performed By: #### 2 4323-8 ####[facility] LABCLIA [id number] [place] [address] CO2 [Moles/Vol] 23 mmol/L Normal 22-30 [facility] Comment on above: Order Comment: Speci men Type: BLOOD SPECIMENOrdering Facility: [facility] Address: [address] [place], [place] [address] Performed By: #### 2 4323-8 ####[facility] LABCLIA [id number] [place] [address] Creatinine [Mass/Vol] 2.97 mg/dL High 0.73-1.22 [facility] Comment on above: Order Comment: Miguelina thomas Type: BLOOD SPECIMENOrdering Facility: [facility] Address: [address] [place] [address] Performed By: #### 2 4323-8 ####[facility] LABCLIA [id number] [place] [address] eGFRcr SerPlBld CKD-EPI 2020 22 mL/min/1.73m??? Low >=60 [facility] Comment on above: Order Comment: Miguelina thomas Type: BLOOD SPECIMENOrdering Facility: [facility] Address: [address] [place] [address] Result Comment: Samantha mated Glomerular Filtration Rate [...] actual GFR. Performed By: #### 2 4323-8 ####[facility] LABCLIA [id number] [place] [address] Glucose [Mass/Vol] 102 mg/dL High 74-99 [facility] Comment on above: Order Comment: Miguelina thomas Type: BLOOD SPECIMENOrdering Facility: [facility] Address: [address] [place], [place] [address] Result Comment: The [place] Diabetes Association (ADA) provides guidance for cutoff [...] Standards of Medical Care in Diabetes 2016, [place] [employer]. Diabetes Care. 2016.39(Suppl 1). Performed By: #### 2 4323-8 ####[facility] LABCLIA [id number] [place] [address] Potassium [Moles/Vol] 4.9 mmol/L Normal 3.7-5.1 [facility] Comment on above: Order Comment: Speci men Type: BLOOD SPECIMENOrdering Facility: [facility] Address: [address] [place] [address] Performed By: #### 2 4323-8 ####[facility] LABCLIA [id number] [place] [address] Protein [Mass/Vol] 7.5 g/dL Normal 6.3-8.0 [facility] Comment on above: Order Comment: Speci men Type: BLOOD SPECIMENOrdering Facility: [facility] Address: [address] [place] [address] Performed By: #### 2 4323-8 ####[facility] LABCLIA [id number] [place] [address] Sodium [Moles/Vol] 134 mmol/L Low 136-144 [facility] Comment on above: Order Comment: Speci men Type: BLOOD SPECIMENOrdering Facility: [facility] Address: [address] [place] [address] Performed By: #### 2 4323-8 ####[facility] LABCLIA [id number] [place] [address] Urea nitrogen [Mass/Vol] 51 mg/dL High 9-24 [facility] Comment on above: Order Comment: Speci men Type: BLOOD SPECIMENOrdering Facility: [facility] Address: [address] [place] [id number] Performed By: #### 2 4323-8 ####[facility] LABCLIA [id number] [place] [address] CNPNon 05-12-2025 [facility] Telephone (HEMASA) SKYLER LE ([id number]) 1960 M Date Time Provider Department 05/12/25 [...] Fully Assessed Reason for Visit: Care Coordination [6158] Cmt: Medication question Prescriptions as of 05/12/2025 [...] 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 Encounter Status:Closed by AVLERIE MOSQUEDA on 05/12/[address] [facility] Telephone (Lumicity) MIMISKYLER RAJAN ([id number]) 1960 M Date Time Provider Department 05/12/25 VALERIE MOSQUEDA During your visit today, we recorded the following information about you: Valerie Mosqueda, JUANA 05/12/2025 9:52 AM Signed Pt states he notified his heel gouger of his lab results and he changed [...] Fully Assessed Reason for Visit: Care Coordination [1491] Cmt: Medication update Prescriptions as of 05/12/2025 [...] Status:Closed by VALERIE MOSQUEDA on 05/12/25 Normal [facility] CBC W Auto Differential pane l (Bld)on 05-09-2025 Basophils (Bld) [#/Vol] 0.09 10*3/uL Normal <0.11 [facility] Comment on above: Order Comment: Speci men Type: BLOOD SPECIMENOrdering Facility: [facility] Address: [address] [place] [address] Performed By: #### 5 7021-8 ####[facility] LABCLIA [id number] [place] [address] Basophils/100 WBC (Bld) 0.9 % Normal [facility] Comment on above: Order Comment: Speci men Type: BLOOD SPECIMENOrdering Facility: [facility] Address: [address] [place] [address] Performed By: #### 5 7021-8 ####[facility] LABCLIA [id number] [place] [address] Differential cell count method Nom (Bld) Auto Normal [facility] Comment on above: Order Comment: Speci men Type: BLOOD SPECIMENOrdering Facility: [facility] Address: [address] [place] [address] Performed By: #### 5 7021-8 ####[facility] LABCLIA [id number] [place] [address] Eosinophils (Bld) [#/Vol] 0.17 10*3/uL Normal <0.46 [facility] Comment on above: Order Comment: Speci men Type: BLOOD SPECIMENOrdering Facility: [facility] Address: [address] [place] [address] Performed By: #### 5 7021-8 ####[facility] LABCLIA [id number] [place] [address] Eosinophils/100 WBC (Bld) 1.6 % Normal [facility] Comment on above: Order Comment: Speci men Type: BLOOD SPECIMENOrdering Facility: [facility] Address: [address] [place] [address] Performed By: #### 5 7021-8 ####[facility] LABCLIA [id number] [place] [address] Erythrocyte distribution width (RBC) [Ratio] 19.9 % High 11.5-15.0 [facility] Comment on above: Order Comment: Speci men Type: BLOOD SPECIMENOrdering Facility: [facility] Address: [address] [place] [address] Performed By: #### 5 7021-8 ####[facility] LABCLIA [id number] [place] [address] Hematocrit (Bld) [Volume fraction] 34.3 % Low 39.0-51.0 [facility] Comment on above: Order Comment: Speci men Type: BLOOD SPECIMENOrdering Facility: [facility] Address: [address] [place] [address] Performed By: #### 5 7021-8 ####[facility] LABCLIA [id number] [place] [address] Hemoglobin (Bld) [Mass/Vol] 11.6 g/dL Low 13.0-17.0 [facility] Comment on above: Order Comment: Speci men Type: BLOOD SPECIMENOrdering Facility: [facility] Address: [address] [place] [address] Performed By: #### 5 7021-8 ####[facility] LABCLIA [id number] [place] [address] Immature granulocytes (Bld) [#/Vol] 0.04 10*3/uL Normal <0.10 [facility] Comment on above: Order Comment: Speci men Type: BLOOD SPECIMENOrdering Facility: [facility] Address: [address] [place] [address] Performed By: #### 5 7021-8 ####[facility] LABCLIA [id number] [place] [address] Immature granulocytes/100 WBC (Bld) 0.4 % Normal [facility] Comment on above: Order Comment: Speci men Type: BLOOD SPECIMENOrdering Facility: [facility] Address: [address] [place] [address] Performed By: #### 5 7021-8 ####[facility] LABCLIA [id number] [place] [address] Lymphocytes (Bld) [#/Vol] 1.82 10*3/uL Normal 1.00-4.00 [facility] Comment on above: Order Comment: Speci men Type: BLOOD SPECIMENOrdering Facility: [facility] Address: [address] [place] [address] Performed By: #### 5 7021-8 ####[facility] LABCLIA [id number] [place] [address] Lymphocytes/100 WBC (Bld) 17.3 % Normal [facility] Comment on above: Order Comment: Speci men Type: BLOOD SPECIMENOrdering Facility: [facility] Address: [address] [place] [address] Performed By: #### 5 7021-8 ####[facility] LABCLIA [id number] [place] [address] MCH (RBC) [Entitic mass] 26.8 pg Normal 26.0-34.0 [facility] Comment on above: Order Comment: Speci men Type: BLOOD SPECIMENOrdering Facility: [facility] Address: [address] [place] [address] Performed By: #### 5 7021-8 ####[facility] LABCLIA [id number] [place] [address] MCHC (RBC) [Mass/Vol] 33.8 g/dL Normal 30.5-36.0 [facility] Comment on above: Order Comment: Speci men Type: BLOOD SPECIMENOrdering Facility: [facility] Address: [address] [place] [address] Performed By: #### 5 7021-8 ####[facility] LABCLIA [id number] [place] [address] MCV (RBC) [Entitic vol] 79.2 fL Low 80.0-100.0 [facility] Comment on above: Order Comment: Speci men Type: BLOOD SPECIMENOrdering Facility: [facility] Address: [address] [place] [address] Performed By: #### 5 7021-8 ####[facility] LABCLIA [id number] [place] [address] Monocytes (Bld) [#/Vol] 0.87 10*3/uL High <0.87 [facility] Comment on above: Order Comment: Speci men Type: BLOOD SPECIMENOrdering Facility: [facility] Address: [address] [place] [address] Performed By: #### 5 7021-8 ####[facility] LABCLIA [id number] [place] [address] Monocytes/100 WBC (Bld) 8.3 % Normal [facility] Comment on above: Order Comment: Speci men Type: BLOOD SPECIMENOrdering Facility: [facility] Address: [address] [place] [address] Performed By: #### 5 7021-8 ####[facility] LABCLIA [id number] [place] [address] Neutrophils (Bld) [#/Vol] 7.54 10*3/uL High 1.45-7.50 [facility] Comment on above: Order Comment: Speci men Type: BLOOD SPECIMENOrdering Facility: [facility] Address: [address] [place] [address] Performed By: #### 5 7021-8 ####[facility] LABCLIA [id number] [place] [address] Neutrophils/100 WBC (Bld) 71.5 % Normal [facility] Comment on above: Order Comment: Speci men Type: BLOOD SPECIMENOrdering Facility: [facility] Address: [address] [place] [address] Performed By: #### 5 7021-8 ####[facility] LABCLIA [id number] [place] [address] Nucleated RBC (Bld) [#/Vol] 10*3/uL Normal <0.01 [facility] Comment on above: Order Comment: Speci men Type: BLOOD SPECIMENOrdering Facility: [facility] Address: [address] [place] [address] Performed By: #### 5 7021-8 ####[facility] LABCLIA [id number] [place] [address] Nucleated RBC/100 WBC (Bld) [Ratio] 0.0 /100 WBC Normal [facility] Comment on above: Order Comment: Speci men Type: BLOOD SPECIMENOrdering Facility: [facility] Address: [address] [place] [address] Performed By: #### 5 7021-8 ####[facility] LABCLIA [id number] [place] [address] Platelet mean volume (Bld) [Entitic vol] 9.2 fL Normal 9.0-12.7 [facility] Comment on above: Order Comment: Speci men Type: BLOOD SPECIMENOrdering Facility: [facility] Address: [address] [place] [address] Performed By: #### 5 7021-8 ####[facility] LABIA [id number] [place] [address] Platelets (Bld) [#/Vol] 227 10*3/uL Normal 150-400 [facility] Comment on above: Order Comment: Speci men Type: BLOOD SPECIMENOrdering Facility: [facility] Address: [address] [place] [address] Performed By: #### 5 7021-8 ####[facility] [id number] [place] [address] RBC (Bld) [#/Vol] 4.33 10*6/uL Normal 4.20-6.[address] [facility] Comment on above: Order Comment: Speci men Type: BLOOD SPECIMENOrdering Facility: [facility] Address: [address] [place] [address] Performed By: #### 5 7021-8 ####[facility] LABIA [id number] [place] [address] WBC (Bld) [#/Vol] 10.53 10*3/uL Normal 3.70-11.00 [facility] Comment on above: Order Comment: Speci men Type: BLOOD SPECIMENOrdering Facility: [facility] Address: [address] [place] [address] Performed By: #### 5 7021-8 ####[facility] LABIA [id number] [place] [address] CNOVSPon 05-09-2025 CNOVSP Visit (SP) Office (HEMASA) SKYLER LE ([id number]) 1960 M Date Time Provider Department 05/09/25 9:20 AM [facility] During your visit today, we recorded the following information about you: Temperature Pulse Respiration Blood pressure 98.3 degrees 52/minute 16/minute 146/81 Weight Height 119.2 kg 1.78 m Ernesto Phoenix MD 05/09/2025 11:02 AM Signed PATIENT NAME: Skyler Le CLINIC NO.: [id number] ATTENDING PHYSICIAN: Ernesto Phoenix MD DATE OF SERVICE: 05/09/[address] Bing Arvizu [address] [facility] [address] thank you for referring Skyler Le for [...] unusual findings. Doing well - Works in [employer] and [employer]. - No smoking - No alcohol. - [...] to car (more content not included)... Normal [facility] Comprehensive metabolic 2000 panelon 05-09-2025 Albumin [Mass/Vol] 4.2 g/dL Normal 3.9-4.9 [facility] Comment on above: Order Comment: Speci men Type: BLOOD SPECIMENOrdering Facility: [facility] Address: [address] [place] [address] Performed By: #### 1 9123-9, 06454-5 ####[facility] LABCLIA [id number] [place] [address] ALP [Catalytic activity/Vol] 89 U/L Normal 38-113 [facility] Comment on above: Order Comment: Speci men Type: BLOOD SPECIMENOrdering Facility: [facility] Address: [address] [id number] Performed By: #### 1 9123-9, 43504-5 ####[facility] LABCLIA [id number] [place] [address] ALT [Catalytic activity/Vol] 10 U/L Normal 10-54 [facility] Comment on above: Order Comment: Speci men Type: BLOOD SPECIMENOrdering Facility: [facility] Address: [address] [place] [address] Performed By: #### 1 9123-9, ####[facility] LABCLIA [id number] [place] [address] Anion gap [Moles/Vol] 10 mmol/L Normal 8-15 [facility] Comment on above: Order Comment: Speci men Type: BLOOD SPECIMENOrdering Facility: [facility] Address: [address] [place] [address] Performed By: #### 1 9123-9, 43711-3 ####[facility] LABCLIA [id number] [place] [address] AST [Catalytic activity/Vol] 13 U/L Low 14-40 [facility] Comment on above: Order Comment: Speci men Type: BLOOD SPECIMENOrdering Facility: [facility] Address: [address] [place] [address] Performed By: #### 1 9123-9, ####[facility] LABCLIA [id number] [place] [address] Bilirubin [Mass/Vol] 0.3 mg/dL Normal 0.2-1.3 [facility] Comment on above: Order Comment: Speci men Type: BLOOD SPECIMENOrdering Facility: [facility] Address: [address] [place] [address] Performed By: #### 1 9123-9, ####[facility] LABCLIA [id number] [place] [address] Calcium [Mass/Vol] 9.6 mg/dL Normal 8.5-10.2 [facility] Comment on above: Order Comment: Speci men Type: BLOOD SPECIMENOrdering Facility: [facility] Address: [address] [place] [address] Performed By: #### 1 9123-9, 95220-1 ####[facility] LABCLIA [id number] [place] [address] Chloride [Moles/Vol] 105 mmol/L Normal 98-107 [facility] Comment on above: Order Comment: Speci men Type: BLOOD SPECIMENOrdering Facility: [facility] Address: [address] [place] [address] Performed By: #### 1 9123-9, ####[facility] LABCLIA [id number] [place] [address] CO2 [Moles/Vol] 20 mmol/L Low 22-30 [facility] Comment on above: Order Comment: Speci men Type: BLOOD SPECIMENOrdering Facility: [facility] Address: [address] [place] [address] Performed By: #### 1 9123-9, ####[facility] LABCLIA [id number] [place] [address] Creatinine [Mass/Vol] 2.47 mg/dL High 0.73-1.22 [facility] Comment on above: Order Comment: Speci men Type: BLOOD SPECIMENOrdering Facility: [facility] Address: [address] [place] [address] Performed By: #### 1 9123-9, ####[facility] LABCLIA [id number] [place] [address] eGFRcr SerPlBld CKD-EPI 2020 28 mL/min/1.73m??? Low >=60 [facility] Comment on above: Order Comment: Speci men Type: BLOOD SPECIMENOrdering Facility: [facility] Address: [address] [place] [address] Result Comment: Samantha mated Glomerular Filtration Rate [...] actual GFR. Performed By: #### 1 9123-9, ####[facility] LABCLIA [id number] [place] [address] Glucose [Mass/Vol] 91 mg/dL Normal 74-99 [facility] Comment on above: Order Comment: Speci men Type: BLOOD SPECIMENOrdering Facility: [facility] Address: [address] [place] [address] Result Comment: The [place] Diabetes Association (ADA) provides guidance for cutoff [...] Standards of Medical Care in Diabetes 2016, [place] [employer]. Diabetes Care. 2016.39(Suppl 1). Performed By: #### 1 9123-9, 30535-3 ####[facility] LABCLIA [id number] [place] [address] Potassium [Moles/Vol] 5.4 mmol/L High 3.7-5.1 [facility] Comment on above: Order Comment: Speci men Type: BLOOD SPECIMENOrdering Facility: [facility] Address: [address] [place] [address] Performed By: #### 1 9123-9, ####[facility] LABCLIA [id number] [place] [address] Protein [Mass/Vol] 7.6 g/dL Normal 6.3-8.0 [facility] Comment on above: Order Comment: Speci men Type: BLOOD SPECIMENOrdering Facility: [facility] Address: [address] [place], [place] [address] Performed By: #### 1 9123-9, 35837-2 ####[facility] LABCLIA [id number] [place] [address] Sodium [Moles/Vol] 135 mmol/L Low 136-144 [facility] Comment on above: Order Comment: Speci men Type: BLOOD SPECIMENOrdering Facility: [facility] Address: [address] [place] [address] Performed By: #### 1 9123-9, 42618-1 ####[facility] LABCLIA [id number] [place] [address] Urea nitrogen [Mass/Vol] 34 mg/dL High 9-24 [facility] Comment on above: Order Comment: Speci men Type: BLOOD SPECIMENOrdering Facility: [facility] Address: [address] [place] [address] Performed By: #### 1 9123-9, 25995-0 ####[facility] LABCLIA [id number] [place] [address] Magnesium SerPl-mCncon 05-09 Magnesium [Mass/Vol] 1.8 mg/dL Normal 1.7-2.3 [facility] Comment on above: Order Comment: Speci men Type: BLOOD SPECIMENOrdering Facility: [facility] Address: [address] [place] [address] Performed By: #### 1 9123-9, 38329-9 ####[facility] LABCLIA [id number] [place] [address] Urinalysis complete panel (U )on 05-09-2025 Bacteria LM.HPF (Urine sed) [#/Area] Negative Normal Negative [facility] Comment on above: Order Comment: Speci men Type: URINE SPECIMENOrdering Facility: [facility] Address: [address] [place] [address] Performed By: #### 2 4356-8 ####[facility] LABCLIA [id number] [place] [address] [place] Bilirubin Ql (U) Negative Normal Negative [facility] Comment on above: Order Comment: Speci men Type: URINE SPECIMENOrdering Facility: [facility] Address: [address] [place] [address] Performed By: #### 2 4356-8 ####[facility] LABCLIA [id number] [address] [place] [address] [place] Clarity (Unsp spec) Clear Normal Clear [facility] Comment on above: Order Comment: Speci men Type: URINE SPECIMENOrdering Facility: [facility] Address: [address] [place] [address] Performed By: #### 2 4356-8 ####[facility] LABCLIA [id number] [place] [id number] [place] Color (U) Yellow Normal Yellow [facility] Comment on above: Order Comment: Speci men Type: URINE SPECIMENOrdering Facility: [facility] Address: [address] [place] [address] Performed By: #### 2 4356-8 ####[facility] LABCLIA [id number] [place] [id number] [place] Epithelial cells LM.HPF (Urine sed) [#/Area] None Seen Normal [facility] Comment on above: Order Comment: Speci men Type: URINE SPECIMENOrdering Facility: [facility] Address: [address] [place] [address] Performed By: #### 2 4356-8 ####[facility] LABCLIA [id number] [address] [place] [address] [place] Glucose Test strip (U) [Mass/Vol] Negative Normal Negative [facility] Comment on above: Order Comment: Speci men Type: URINE SPECIMENOrdering Facility: [facility] Address: [address] [place] [address] Performed By: #### 2 4356-8 ####[facility] LABCLIA [id number] [address] [place] [address] [place] Hemoglobin Ql (U) Negative Normal Negative [facility] Comment on above: Order Comment: Speci men Type: URINE SPECIMENOrdering Facility: [facility] Address: [address] [place] [address] Performed By: #### 2 4356-8 ####[facility] LABCLIA [id number] [place] [address] [place] Hyaline casts (Urine sed) [#/Area] 0 /[LPF] Normal 0 /LPF [facility] Comment on above: Order Comment: Speci men Type: URINE SPECIMENOrdering Facility: [facility] Address: [address] [place] [address] Performed By: #### 2 4356-8 ####[facility] LABCLIA [id number] [place] [address] [place] Ketones Ql (U) Negative Normal Negative [facility] Comment on above: Order Comment: Speci men Type: URINE SPECIMENOrdering Facility: [facility] Address: [address] [place] [address] Performed By: #### 2 4356-8 ####[facility] LABCLIA [id number] [place] [address] [place] Leukocyte esterase Test strip Ql (U) Negative Normal Negative [facility] Comment on above: Order Comment: Speci men Type: URINE SPECIMENOrdering Facility: [facility] Address: [address] [place] [address] Performed By: #### 2 4356-8 ####[facility] LABCLIA [id number] [place] [address] [place] Nitrite Ql (U) Negative Normal Negative [facility] Comment on above: Order Comment: Speci men Type: URINE SPECIMENOrdering Facility: [facility] Address: [address] [place] [address] Performed By: #### 2 4356-8 ####[facility] LABCLIA [id number] [place] [address] [place] pH (U) 6.0 [pH] Normal 5.0-8.0 [facility] Comment on above: Order Comment: Speci men Type: URINE SPECIMENOrdering Facility: [facility] Address: [address] [place] [address] Performed By: #### 2 4356-8 ####[facility] LABIA [id number] [place] [address] [place] Protein (U) [Mass/Vol] 1+ Abnormal Negative [facility] Comment on above: Order Comment: Speci men Type: URINE SPECIMENOrdering Facility: [facility] Address: [address] [place] [address] Performed By: #### 2 4356-8 ####[facility] [id number] [place] [address] [place] RBC LM.HPF (Urine sed) [#/Area] 0-2 /HPF Normal 0-2 /HPF [facility] Comment on above: Order Comment: Speci men Type: URINE SPECIMENOrdering Facility: [facility] Address: [address] [place] [address] Performed By: #### 2 4356-8 ####[facility] [id number] [place] [address] [place] Specific gravity (U) [Rel density] 1.017 Normal 1.005-1.030 [facility] Comment on above: Order Comment: Speci men Type: URINE SPECIMENOrdering Facility: [facility] Address: [address] [place] [address] Performed By: #### 2 4356-8 ####[facility] LABIA [id number] [place] [address] [place] Urobilinogen Ql (U) 0.2 EU/dL Normal 0.2-1.0 EU/dL [facility] Comment on above: Order Comment: Speci men Type: URINE SPECIMENOrdering Facility: [facility] Address: [address] [place] [address] Performed By: #### 2 4356-8 ####[facility] [id number] [address] [place] WBC LM.HPF (Urine sed) [#/Area] 0-5 /HPF Normal 0-5 /HPF [facility] Comment on above: Order Comment: Speci men Type: URINE SPECIMENOrdering Facility: [facility] Address: [address] [place] [address] Performed By: #### 2 4356-8 ####[facility] [id number] [address] [place] [facility] SKYL[facility] LE ([id number]) 1960 M Date Time Provider Department 04/21/25 [...] Fully Assessed Reason for Visit: Care Coordination [2651] Cmt: C1D1 Post Treatment Call AND Oral [...] Status:Closed by STEPHAN ROMERO on 04/21/25 Normal [facility] CBC W Auto Differential pane l (Bld)on 04-18-2025 Basophils (Bld) [#/Vol] 0.04 10*3/uL [facility] Basophils/100 WBC (Bld) 0.4 % [facility] Differential cell count method Nom (Bld) Auto [facility] Eosinophils (Bld) [#/Vol] 0.14 10*3/uL [facility] Eosinophils/100 WBC (Bld) 1.4 % [facility] Erythrocyte distribution width (RBC) [Ratio] 20 % High 11.5 - 15.0 % [facility] Hematocrit (Bld) [Volume fraction] 33.6 % Low 39.0 - 51.0 % [facility] Hemoglobin (Bld) [Mass/Vol] 10.7 g/dL Low 13.0 - 17.0 g/dL [facility] Immature granulocytes (Bld) [#/Vol] 0.11 10*3/uL High NINF [facility] Immature granulocytes/100 WBC (Bld) 1.1 % [facility] Interpretation and review of laboratory results Abnormal [facility] Lymphocytes (Bld) [#/Vol] 1.53 10*3/uL [facility] Lymphocytes/100 WBC (Bld) 15.5 % [facility] MCH (RBC) [Entitic mass] 25.7 pg Low 26.0 - 34.0 pg [facility] MCHC (RBC) [Mass/Vol] 31.8 g/dL 30.5 - 36.0 g/dL [facility] MCV (RBC) [Entitic vol] 80.6 fL 80.0 - 100.0 fL [facility] Monocytes (Bld) [#/Vol] 0.52 10*3/uL [facility] Monocytes/100 WBC (Bld) 5.3 % [facility] Neutrophils (Bld) [#/Vol] 7.55 10*3/uL High [facility] Neutrophils/100 WBC (Bld) 76.3 % [facility] Nucleated RBC (Bld) [#/Vol] [facility] Nucleated RBC/100 WBC (Bld) [Ratio] 0 % /100 WBC [facility] Platelet mean volume (Bld) [Entitic vol] 9.2 fL 9.0 - 12.7 fL [facility] Platelets (Bld) [#/Vol] 206 10*3/uL [facility] RBC (Bld) [#/Vol] 4.17 10*6/uL Low 4.20 - 6.0 0 m/uL [facility] WBC (Bld) [#/Vol] 9.89 10*3/uL [facility] Basophils (Bld) [#/Vol] 0.04 10*3/uL Normal <0.11 [facility] Comment on above: Order Comment: Speci men Type: BLOOD SPECIMENOrdering Facility: [facility] Address: [address] [place] [address] Performed By: #### 5 7021-8 ####[facility] LABCLIA [id number] [place] [address] Basophils/100 WBC (Bld) 0.4 % Normal [facility] Comment on above: Order Comment: Speci men Type: BLOOD SPECIMENOrdering Facility: [facility] Address: [address] [place] [address] Performed By: #### 5 7021-8 ####[facility] LABCLIA [id number] [place] [address] Differential cell count method Nom (Bld) Auto Normal [facility] Comment on above: Order Comment: Speci men Type: BLOOD SPECIMENOrdering Facility: [facility] Address: [address] [place] [address] Performed By: #### 5 7021-8 ####[facility] LABCLIA [id number] [place] [address] Eosinophils (Bld) [#/Vol] 0.14 10*3/uL Normal <0.46 [facility] Comment on above: Order Comment: Speci men Type: BLOOD SPECIMENOrdering Facility: [facility] Address: [address] [place] [address] Performed By: #### 5 7021-8 ####[facility] LABCLIA [id number] [place] [address] Eosinophils/100 WBC (Bld) 1.4 % Normal [facility] Comment on above: Order Comment: Speci men Type: BLOOD SPECIMENOrdering Facility: [facility] Address: [address] [place] [address] Performed By: #### 5 7021-8 ####[facility] LABCLIA [id number] [place] [address] Erythrocyte distribution width (RBC) [Ratio] 20.0 % High 11.5-15.0 [facility] Comment on above: Order Comment: Speci men Type: BLOOD SPECIMENOrdering Facility: [facility] Address: [address] [place] [address] Performed By: #### 5 7021-8 ####[facility] LABCLIA [id number] [place] [address] Hematocrit (Bld) [Volume fraction] 33.6 % Low 39.0-51.0 [facility] Comment on above: Order Comment: Speci men Type: BLOOD SPECIMENOrdering Facility: [facility] Address: [address] [place] [address] Performed By: #### 5 7021-8 ####[facility] LABCLIA [id number] [place] [address] Hemoglobin (Bld) [Mass/Vol] 10.7 g/dL Low 13.0-17.0 [facility] Comment on above: Order Comment: Speci men Type: BLOOD SPECIMENOrdering Facility: [facility] Address: [address] [place] [address] Performed By: #### 5 7021-8 ####[facility] LABCLIA [id number] [place] [address] Immature granulocytes (Bld) [#/Vol] 0.11 10*3/uL High <0.10 [facility] Comment on above: Order Comment: Speci men Type: BLOOD SPECIMENOrdering Facility: [facility] Address: [address] [place] [address] Performed By: #### 5 7021-8 ####[facility] LABCLIA [id number] [place] [address] Immature granulocytes/100 WBC (Bld) 1.1 % Normal [facility] Comment on above: Order Comment: Speci men Type: BLOOD SPECIMENOrdering Facility: [facility] Address: [address] [place] [address] Performed By: #### 5 7021-8 ####[facility] LABCLIA [id number] [place] [address] Lymphocytes (Bld) [#/Vol] 1.53 10*3/uL Normal 1.00-4.00 [facility] Comment on above: Order Comment: Speci men Type: BLOOD SPECIMENOrdering Facility: [facility] Address: [address] [place] [address] Performed By: #### 5 7021-8 ####[facility] LABCLIA [id number] [place] [address] Lymphocytes/100 WBC (Bld) 15.5 % Normal [facility] Comment on above: Order Comment: Speci men Type: BLOOD SPECIMENOrdering Facility: [facility] Address: [address] [place] [address] Performed By: #### 5 7021-8 ####[facility] LABCLIA [id number] [place] [address] MCH (RBC) [Entitic mass] 25.7 pg Low 26.0-34.0 [facility] Comment on above: Order Comment: Speci men Type: BLOOD SPECIMENOrdering Facility: [facility] Address: [address] [place] [address] Performed By: #### 5 7021-8 ####[facility] [facility] LABCLIA [id number] [place] [address] MCHC (RBC) [Mass/Vol] 31.8 g/dL Normal 30.5-36.0 [facility] Comment on above: Order Comment: Speci men Type: BLOOD SPECIMENOrdering Facility: [facility] Address: [address] [place] [address] Performed By: #### 5 7021-8 ####[facility] LABIA [id number] [place] [address] MCV (RBC) [Entitic vol] 80.6 fL Normal 80.0-100.0 [facility] Comment on above: Order Comment: Speci men Type: BLOOD SPECIMENOrdering Facility: [facility] Address: [address] [place] [address] Performed By: #### 5 7021-8 ####[facility] LABCLIA [id number] [place] [address] Monocytes (Bld) [#/Vol] 0.52 10*3/uL Normal <0.87 [facility] Comment on above: Order Comment: Speci men Type: BLOOD SPECIMENOrdering Facility: [facility] Address: [address] [place] [address] Performed By: #### 5 7021-8 ####[facility] LABCLIA [id number] [place] [address] Monocytes/100 WBC (Bld) 5.3 % Normal [facility] Comment on above: Order Comment: Speci men Type: BLOOD SPECIMENOrdering Facility: [facility] Address: [address] [place] [address] Performed By: #### 5 7021-8 ####[facility] LABCLIA [id number] [place] [address] Neutrophils (Bld) [#/Vol] 7.55 10*3/uL High 1.45-7.50 [facility] Comment on above: Order Comment: Speci men Type: BLOOD SPECIMENOrdering Facility: [facility] Address: [address] [place] [address] Performed By: #### 5 7021-8 ####[facility] LABCLIA [id number] [place] [address] Neutrophils/100 WBC (Bld) 76.3 % Normal [facility] Comment on above: Order Comment: Speci men Type: BLOOD SPECIMENOrdering Facility: [facility] Address: [address] [place] [address] Performed By: #### 5 7021-8 ####[facility] LABCLIA [id number] [place] [address] Nucleated RBC (Bld) [#/Vol] 10*3/uL Normal <0.01 [facility] Comment on above: Order Comment: Speci men Type: BLOOD SPECIMENOrdering Facility: [facility] Address: [address] [place] [address] Performed By: #### 5 7021-8 ####[facility] LABCLIA [id number] [place] [address] Nucleated RBC/100 WBC (Bld) [Ratio] 0.0 /100 WBC Normal [facility] Comment on above: Order Comment: Speci men Type: BLOOD SPECIMENOrdering Facility: [facility] Address: [address] [place] [address] Performed By: #### 5 7021-8 ####[facility] LABCLIA [id number] [place] [address] Platelet mean volume (Bld) [Entitic vol] 9.2 fL Normal 9.0-12.7 [facility] Comment on above: Order Comment: Speci men Type: BLOOD SPECIMENOrdering Facility: [facility] Address: [address] [place] [address] Performed By: #### 5 7021-8 ####[facility] LABCLIA [id number] [place] [address] Platelets (Bld) [#/Vol] 206 10*3/uL Normal 150-400 [facility] Comment on above: Order Comment: Speci men Type: BLOOD SPECIMENOrdering Facility: [facility] Address: [address] [place] [address] Performed By: #### 5 7021-8 ####[facility] LABCLIA [id number] [place] [address] RBC (Bld) [#/Vol] 4.17 10*6/uL Low 4.20-6.[address] [facility] Comment on above: Order Comment: Speci men Type: BLOOD SPECIMENOrdering Facility: [facility] Address: [address] [place] [address] Performed By: #### 5 7021-8 ####[facility] LABCLIA [id number] [place] [address] WBC (Bld) [#/Vol] 9.89 10*3/uL Normal 3.70-11.[address] [facility] Comment on above: Order Comment: Speci men Type: BLOOD SPECIMENOrdering Facility: [facility] Address: [address] [place] [address] Performed By: #### 5 7021-8 ####[facility] LABCLIA [id number] [place] [address] CNNURSEon 04-18-2025 CNNURSE Nurse Visit (HEMASA) SKYLER LE ([id number]) 1960 M Date Time Provider Department 04/18/25 10:00 AM [facility] NURSE MICHAEL RODRIGUES During your visit today, we recorded the following information about you: Osmany Echevarria MA 04/18/2025 10:53 AM Signed Patient identified by 2 identifiers. EKG performed as ordered. Osmany Echevarria MA Referring Provider: ERNESTO PHOENIX [[id number]] Allergies As of Date: 04/18/2025 Noted Allergy [...] Encounter Status:Closed by OSMANY ECHEVARRIA on 04/18/25 [facility] CNOVSPon 04-18-2025 CNOVSP Visit (SP) Office (HEMASA) SKYLER LE ([id number]) 1960 M Date Time Provider Department 04/18/25 9:40 AM ERNESTO PHOENIX During your visit today, we recorded the following information about you: Temperature Pulse Respiration Blood pressure 97.3 degrees 52/minute 16/minute 124/58 Weight Height 120.9 kg 1.77 m Ernesto Phoenix MD 04/18/2025 10:33 AM Signed PATIENT NAME: Skyler Le CLINIC NO.: [id number] ATTENDING PHYSICIAN: Ernesto Phoenix MD DATE OF SERVICE: 04/18/[address] Bing Arvizu [address] [facility] [address] thank you for referring Skyler Le for [...] unusual findings. Doing well - Works in [employer] and [employer]. - No smoking - No alcohol. - [...] color, t (more content not included)... Normal [facility] 04-18-2025 CNPN Telephone (HEMASA) SKYLER LE ([id number]) 1960 M Date Time Provider Department 04/18/25 [...] pain Date Reviewed: 04/18/2025 Reviewed by: Osmany Echvearria MA - Fully Assessed Reason for Visit: Care Coordination [1980] Cmt: Lenvatinib Start Date Prescriptions as of [...] Status:Closed by STEPHAN ROMERO on 04/18/25 Normal [facility] 2000 panelOrdered By: Noemi Manzano on 04-18-2025 Albumin [Mass/Vol] 4.2 g/dL 3.9 - 4.9 g/dL [facility] ALP [Catalytic activity/Vol] 81 U/L 38 - 113 U/L [facility] ALT [Catalytic activity/Vol] 10 U/L 10 - 54 U/L [facility] Anion gap [Moles/Vol] 10 mmol/L 8 - 15 mmol/L [facility] AST [Catalytic activity/Vol] 12 U/L Low 14 - 40 U/L [facility] Bilirubin [Mass/Vol] 0.2 mg/dL 0.2 - 1 .3 mg/dL [facility] Calcium [Mass/Vol] 9.2 mg/dL 8.5 - 10. 2 mg/dL [facility] Chloride [Moles/Vol] 103 mmol/L 98 - 10 7 mmol/L [facility] CO2 [Moles/Vol] 22 mmol/L 22 - 30 mmol/L [facility] Creatinine [Mass/Vol] 2.13 mg/dL High 0.73 - 1.22 mg/dL [facility] GFR/1.73 sq M.predicted among non-blacks MDRD (S/P/Bld) [Vol rate/Area] 34 mL/min/{1.73_m2} Low - PINF [facility] Comment on above: Estimated Glomerular Filtration [...] 115 mg/dL High 74 - 99 mg/dL [facility] Comment on above: The [place] Diabete s Association (ADA) provides guidance for [...] Standards of Medical Care in Diabetes 2016, [place] Diabetes Association. Diabetes Care. 2016.39(Suppl 1). Interpretation and review of laboratory results Abnormal [facility] Potassium [Moles/Vol] 4.7 mmol/L 3.7 - 5.1 mmol/L [facility] Protein [Mass/Vol] 7.6 g/dL 6.3 - 8.0 g/dL [facility] Sodium [Moles/Vol] 135 mmol/L Low 136 - 144 mmol/L [facility] Urea nitrogen [Mass/Vol] 33 mg/dL High 9 - 24 mg/dL [facility] Comprehensive metabolic 2000 panelon 04-18-2025 Albumin [Mass/Vol] 4.2 g/dL Normal 3.9-4.9 [facility] Comment on above: Order Comment: Speci men Type: BLOOD SPECIMENOrdering Facility: [facility] Address: [address] [place] [address] Performed By: #### 2 4323-8 ####[facility] LABCLIA [id number] [place] [address] ALP [Catalytic activity/Vol] 81 U/L Normal 38-113 [facility] Comment on above: Order Comment: Speci men Type: BLOOD SPECIMENOrdering Facility: [facility] Address: [address] [place] [address] Performed By: #### 2 4323-8 ####[facility] LABCLIA [id number] [place] [address] ALT [Catalytic activity/Vol] 10 U/L Normal 10-54 [facility] Comment on above: Order Comment: Speci men Type: BLOOD SPECIMENOrdering Facility: [facility] Address: [address] [place] [address] Performed By: #### 2 4323-8 ####[facility] LABCLIA [id number] [place] [address] Anion gap [Moles/Vol] 10 mmol/L Normal 8-15 [facility] Comment on above: Order Comment: Speci men Type: BLOOD SPECIMENOrdering Facility: [facility] Address: [address] [place] [address] Performed By: #### 2 4323-8 ####[facility] LABCLIA [id number] [place] [address] AST [Catalytic activity/Vol] 12 U/L Low 14-40 [facility] Comment on above: Order Comment: Speci men Type: BLOOD SPECIMENOrdering Facility: [facility] Address: [address] [place] [address] Performed By: #### 2 4323-8 ####[facility] LABCLIA [id number] [place] [address] Bilirubin [Mass/Vol] 0.2 mg/dL Normal 0.2-1.3 [facility] Comment on above: Order Comment: Speci men Type: BLOOD SPECIMENOrdering Facility: [facility] Address: [address] [place] [address] Performed By: #### 2 4323-8 ####[facility] LABCLIA [id number] [place] [address] Calcium [Mass/Vol] 9.2 mg/dL Normal 8.5-10.2 [facility] Comment on above: Order Comment: Speci men Type: BLOOD SPECIMENOrdering Facility: [facility] Address: [address] [place] [address] Performed By: #### 2 4323-8 ####[facility] LABCLIA [id number] [place] [address] Chloride [Moles/Vol] 103 mmol/L Normal 98-107 [facility] Comment on above: Order Comment: Speci men Type: BLOOD SPECIMENOrdering Facility: [facility] Address: [address] [place] [address] Performed By: #### 2 4323-8 ####[facility] LABCLIA [id number] [place] [address] CO2 [Moles/Vol] 22 mmol/L Normal 22-30 [facility] Comment on above: Order Comment: Speci men Type: BLOOD SPECIMENOrdering Facility: [facility] Address: [address] [place] [address] Performed By: #### 2 4323-8 ####[facility] LABCLIA [id number] [place] [address] Creatinine [Mass/Vol] 2.13 mg/dL High 0.73-1.22 [facility] Comment on above: Order Comment: Speci men Type: BLOOD SPECIMENOrdering Facility: [facility] Address: [address] [place] [address] Performed By: #### 2 4323-8 ####[facility] LABCLIA [id number] [place] [address] eGFRcr SerPlBld CKD-EPI 2020 34 mL/min/1.73m??? Low >=60 [facility] Comment on above: Order Comment: Speci men Type: BLOOD SPECIMENOrdering Facility: [facility] Address: [address] [place] [address] Result Comment: Samantha mated Glomerular Filtration Rate [...] actual GFR. Performed By: #### 2 4323-8 ####[facility] LABCLIA [id number] [place] [address] Glucose [Mass/Vol] 115 mg/dL High 74-99 [facility] Comment on above: Order Comment: Speci men Type: BLOOD SPECIMENOrdering Facility: [facility] Address: [address] [place], [place] [address] Result Comment: The [place] Diabetes Association (ADA) provides guidance for cutoff [...] Standards of Medical Care in Diabetes 2016, [place] Diabetes Association. Diabetes Care. 2016.39(Suppl 1). Performed By: #### 2 4323-8 ####[facility] LABCLIA [id number] [place] [address] Potassium [Moles/Vol] 4.7 mmol/L Normal 3.7-5.1 [facility] Comment on above: Order Comment: Speci men Type: BLOOD SPECIMENOrdering Facility: [facility] Address: [address] [place] [address] Performed By: #### 2 4323-8 ####[facility] LABCLIA [id number] [place] [address] Protein [Mass/Vol] 7.6 g/dL Normal 6.3-8.0 [facility] Comment on above: Order Comment: Speci men Type: BLOOD SPECIMENOrdering Facility: [facility] Address: [address] [place] [address] Performed By: #### 2 4323-8 ####[facility] LABCLIA [id number] [place] [address] Sodium [Moles/Vol] 135 mmol/L Low 136-144 [facility] Comment on above: Order Comment: Speci men Type: BLOOD SPECIMENOrdering Facility: [facility] Address: [address] [place] [address] Performed By: #### 2 4323-8 ####[facility] LABCLIA [id number] [place] [address] Urea nitrogen [Mass/Vol] 33 mg/dL High 9-24 [facility] Comment on above: Order Comment: Speci men Type: BLOOD SPECIMENOrdering Facility: [facility] Address: [address] [place] [address] Performed By: #### 2 4323-8 ####[facility] LABCLIA [id number] [place] [address] THYROID STIMULATING HORMONEo n 04-18-2025 TSH Qn 2.41 m[IU]/L [facility] TSH Qnon 04-18-2025 Interpretation and review of laboratory results Normal [facility] TSH SerPl-aCncon 04-18-2025 TSH Qn 2.410 m[IU]/L Normal 0.270-4.200 [facility] Comment on above: Order Comment: Speci men Type: BLOOD SPECIMENOrdering Facility: [facility] Address: [address] [place] [address] Performed By: #### 3 016-3 ####[facility] LABCLIA [id number] [place] [id number] [facility] CNPNon 04-15-2025 CNPN Telephone (HEMASA) SKYLER LE ([id number]) 1960 M Date Time Provider Department 04/15/25 [...] Date Reviewed: 04/15/2025 Reviewed by: Helen Felipe APRN.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 - Fully Assessed Reason for Visit: Lab Orders [1688] Primary Visit Diagnosis:Renal cell carcinoma of left kidney (HCC) [C64.2] Other Visit Diagnoses:High risk medication use [Z79.899] Thyroid nodule [E04.1] Order(s):COMPREHENSIVE METABOLIC PANEL [SQCMP] Order #: [id number] FUTURE COMPLETE BLOOD COUNT AND DIFFERENTIAL [SQCBCDIF] Order #: [id number] FUTURE THYROID STIMULATING HORMONE [SQTSH] Order #: [id number] FUTURE Prescriptions as of 04/29/2025 - sennosides [...] Status:Closed by ISABELLA JAVIER on 04/29/25 Normal [facility] CNPNon 04-10-2025 CNPN Telephone (SDOPRX) SKYLER LE ([id number]) 1960 M Date Time Provider Department 04/10/25 ISABELA DE LA FUENTE SDOPRX During your visit today, we recorded the following information about you: Isabela De La Fuente [facility] 04/14/2025 8:19 AM Signed Ambulatory Pharmacy Prior Authorization Note Provider Intervention Required?: No - Pharmacy completed on your behalf. Was the PA documented within the ePA workqueue?: No Rx Plan: Other: [facility] Drug: Lenvima Cover My Meds Amaya: N/A Determination: Denied PA Denied because: Plan EXCLUSION Prior Authorization/Case #: [id number] Prior Authorization Expiration: Time to PA Submission in CMM: 15 min Time to PA Determination in CMM: 1 day Additional Information: Fax PA form to [facility] 04/09/2025 For questions relating to this submission, please contact [facility] at [phone] Tamika Madison [facility] 04/11/2025 1:40 PM Signed Sameer Young and Alban, The Lenvima ordered for Skyler is not covered by his insurance at all. It is a plan exclusion. There is no option for an appeal. The only option for Skyler would be to apply for free drug through the digital marketing manager. This process could take some time. The authorization for Ketyruda is still pending. His insurance plan will cover Cabometyx still, if you wish to go back to that plan. We would still need to change the immunotherapy back to Opdivo and obtain that authorization though. Please advise us on how you would like to move forward. Thank you Tayo Madison PharmD, Tamika Mckeon, [facility] 04/11/2025 2:02 PM Signed Tamika Madison [facility] 04/11/2025 2:02 PM Signed We do have some Lenvima in our drug repository we could use to get him started while we apply for free drug. Tayo Madison PharmD, Ernesto Kaufman MD 04/11/2025 3:19 PM Signed OK to use Lenvima from our drug repository then while waiting for free drug. Thank you Tamika Madison [facility] 04/11/2025 3:28 PM Signed Myrtle please work [...] back pain Date Reviewed: 04/09/2025 Reviewed by: Nkiki Bailey RN - Fully Assessed Reason for [...] ISABELA DE LA FUENTE on 04/14/25 [facility] ([facility] SKYLER LE ([id number]) 1960 M Date Time Provider Department 04/10/25 [...] been approved? Please advise JUANA Son Kathryn [facility] 04/10/2025 3:20 PM Signed Keytruda has not been approved, we were advised to push treatment out until approved. The initial approval was withdrawn when the plan was changed to Opdivo, the PA team has to resubmit for Keytruda approval again. Tayo Madison, Giorgio, OP Valerie Mosqueda RN 04/10/2025 3:32 PM Signed PSS: can [...] am if he can make this appointment. Pealr Morgan 04/10/2025 3:54 PM Signed Patient called back and confirmed RV and treatment for Wednesday 04/18. Tamika Cooney, [facility] 04/11/2025 9:50 AM Signed Follow up call placed to [facility]. Clinical Documentation Spec confirmed that they received the fax 04/10/25 for Lenvima prior authorization. Their TAT is 4-10 business days for prior authorizations. Tayo Madison, AnuradhaD, BCOP Allergies As of Date: 04/10/2025 Noted Allergy Reaction FLOMAX (TAMSULOSIN) 02/27/2025 14 - Other: See Comments Comments: dizziness and back pain Date Reviewed: 04/09/2025 Reviewed by: Nikki Bailey RN - Fully Assessed Reason for Visit: Care Coordination [3062] Cmt: Treatment plan Prescriptions as of 04/11/2025 [...] Encounter Status:Closed by KAMRAN LEONG on 04/11/25 [facility] Visit (SP) Office (HEMCA3) SKYLER LE ([id number]) 1960 M Date Time Provider Department 04/09/25 [...] No Does patient want to see a Dental Assistant Teacher? No (yes to any of above refer patient to schedulers for dietitian appointment) ) Does patient have any new or increased numbness or tingling of extremities? No Is patient interested in fertility information? No Does patient need any prescription refills? No Does patient have an advanced directive in place? No, Patient referred to [facility] Electronically Signed By: JUANA Pablo Timothy D, MD 04/09/2025 2:13 PM Signed [facility] Department of Hematology AND Medical Oncology PATIENT NAME: Skyler Le CLINIC NO: [id number] ATTENDING PHYSICIAN: Jeannine Young MD DATE OF [...] histologic an (more content not included)... Normal [facility] CBC W Auto Differential pane l (Bld)on 04-07-2025 Basophils (Bld) [#/Vol] 0.05 10*3/uL [facility] Basophils/100 WBC (Bld) 0.6 % [facility] Differential cell count method Nom (Bld) Auto [facility] Eosinophils (Bld) [#/Vol] 0.13 10*3/uL [facility] Eosinophils/100 WBC (Bld) 1.5 % [facility] Erythrocyte distribution width (RBC) [Ratio] 19.2 % High 11.5 - 15.0 % [facility] Hematocrit (Bld) [Volume fraction] 33.4 % Low 39.0 - 51.0 % [facility] Hemoglobin (Bld) [Mass/Vol] 10.6 g/dL Low 13.0 - 17.0 g/dL [facility] Immature granulocytes (Bld) [#/Vol] 0.11 10*3/uL High [facility] Immature granulocytes/100 WBC (Bld) 1.3 % [facility] Interpretation and review of laboratory results Abnormal [facility] Lymphocytes (Bld) [#/Vol] 1.25 10*3/uL [facility] Lymphocytes/100 WBC (Bld) 14.7 % [facility] MCH (RBC) [Entitic mass] 25.3 pg Low 26.0 - 34.0 pg [facility] MCHC (RBC) [Mass/Vol] 31.7 g/dL 30.5 - 36.0 g/dL [facility] MCV (RBC) [Entitic vol] 79.7 fL Low 80.0 - 100.0 fL [facility] Monocytes (Bld) [#/Vol] 0.76 10*3/uL [facility] Monocytes/100 WBC (Bld) 8.9 % [facility] Neutrophils (Bld) [#/Vol] 6.23 10*3/uL [facility] Neutrophils/100 WBC (Bld) 73 % [facility] Nucleated RBC (Bld) [#/Vol] [facility] Nucleated RBC/100 WBC (Bld) [Ratio] 0 % /100 WBC [facility] Platelet mean volume (Bld) [Entitic vol] 8.8 fL Low 9.0 - 12.7 fL [facility] Platelets (Bld) [#/Vol] 197 10*3/uL [facility] RBC (Bld) [#/Vol] 4.19 10*6/uL Low 4.20 - 6.0 0 m/uL [facility] WBC (Bld) [#/Vol] 8.53 10*3/uL [facility] Basophils (Bld) [#/Vol] 0.05 10*3/uL Normal <0.11 [facility] Comment on above: Order Comment: Speci men Type: BLOOD SPECIMENOrdering Facility: [facility] Address: [address] [place] [address] Performed By: #### 5 7021-8 ####[facility] LABCLIA [id number] [place] [address] Basophils/100 WBC (Bld) 0.6 % Normal [facility] Comment on above: Order Comment: Speci men Type: BLOOD SPECIMENOrdering Facility: [facility] Address: [address] [place] [address] Performed By: #### 5 7021-8 ####[facility] LABCLIA [id number] [place] [address] Differential cell count method Nom (Bld) Auto Normal [facility] Comment on above: Order Comment: Speci men Type: BLOOD SPECIMENOrdering Facility: [facility] Address: [address] [place] [address] Performed By: #### 5 7021-8 ####[facility] LABCLIA [id number] [place] [address] Eosinophils (Bld) [#/Vol] 0.13 10*3/uL Normal <0.46 [facility] Comment on above: Order Comment: Speci men Type: BLOOD SPECIMENOrdering Facility: [facility] Address: [address] [place] [address] Performed By: #### 5 7021-8 ####[facility] LABCLIA [id number] [place] [address] Eosinophils/100 WBC (Bld) 1.5 % Normal [facility] Comment on above: Order Comment: Speci men Type: BLOOD SPECIMENOrdering Facility: [facility] Address: [address] [place] [address] Performed By: #### 5 7021-8 ####[facility] LABCLIA [id number] [place] [address] Erythrocyte distribution width (RBC) [Ratio] 19.2 % High 11.5-15.0 [facility] Comment on above: Order Comment: Speci men Type: BLOOD SPECIMENOrdering Facility: [facility] Address: [address] [place] [address] Performed By: #### 5 7021-8 ####[facility] LABCLIA [id number] [place] [address] Hematocrit (Bld) [Volume fraction] 33.4 % Low 39.0-51.0 [facility] Comment on above: Order Comment: Speci men Type: BLOOD SPECIMENOrdering Facility: [facility] Address: [address] [place] [address] Performed By: #### 5 7021-8 ####[facility] LABCLIA [id number] [place] [address] Hemoglobin (Bld) [Mass/Vol] 10.6 g/dL Low 13.0-17.0 [facility] Comment on above: Order Comment: Speci men Type: BLOOD SPECIMENOrdering Facility: [facility] Address: [address] [place] [address] Performed By: #### 5 7021-8 ####[facility] LABCLIA [id number] [place] [address] Immature granulocytes (Bld) [#/Vol] 0.11 10*3/uL High <0.10 [facility] Comment on above: Order Comment: Speci men Type: BLOOD SPECIMENOrdering Facility: [facility] Address: [address] [place] [address] Performed By: #### 5 7021-8 ####[facility] LABCLIA [id number] [place] [address] Immature granulocytes/100 WBC (Bld) 1.3 % Normal [facility] Comment on above: Order Comment: Speci men Type: BLOOD SPECIMENOrdering Facility: [facility] Address: [address] [place] [address] Performed By: #### 5 7021-8 ####[facility] LABCLIA [id number] [place] [address] Lymphocytes (Bld) [#/Vol] 1.25 10*3/uL Normal 1.00-4.00 [facility] Comment on above: Order Comment: Speci men Type: BLOOD SPECIMENOrdering Facility: [facility] Address: [address] [place] [address] Performed By: #### 5 7021-8 ####[facility] LABCLIA [id number] [place] [address] Lymphocytes/100 WBC (Bld) 14.7 % Normal [facility] Comment on above: Order Comment: Speci men Type: BLOOD SPECIMENOrdering Facility: [facility] Address: [address] [place] [address] Performed By: #### 5 7021-8 ####[facility] LABCLIA [id number] [place] [address] MCH (RBC) [Entitic mass] 25.3 pg Low 26.0-34.0 [facility] Comment on above: Order Comment: Speci men Type: BLOOD SPECIMENOrdering Facility: [facility] Address: [address] [place] [address] Performed By: #### 5 7021-8 ####[facility] LABCLIA [id number] [place] [address] MCHC (RBC) [Mass/Vol] 31.7 g/dL Normal 30.5-36.0 [facility] Comment on above: Order Comment: Speci men Type: BLOOD SPECIMENOrdering Facility: [facility] Address: [address] [place] [address] Performed By: #### 5 7021-8 ####[facility] LABCLIA [id number] [place] [address] MCV (RBC) [Entitic vol] 79.7 fL Low 80.0-100.0 [facility] Comment on above: Order Comment: Speci men Type: BLOOD SPECIMENOrdering Facility: [facility] Address: [address] [place] [address] Performed By: #### 5 7021-8 ####[facility] LABCLIA [id number] [place] [address] Monocytes (Bld) [#/Vol] 0.76 10*3/uL Normal <0.87 [facility] Comment on above: Order Comment: Speci men Type: BLOOD SPECIMENOrdering Facility: [facility] Address: [address] [place] [address] Performed By: #### 5 7021-8 ####[facility] LABCLIA [id number] [place] [address] Monocytes/100 WBC (Bld) 8.9 % Normal [facility] Comment on above: Order Comment: Speci men Type: BLOOD SPECIMENOrdering Facility: [facility] Address: [address] [place] [address] Performed By: #### 5 7021-8 ####[facility] LABCLIA [id number] [place] [address] Neutrophils (Bld) [#/Vol] 6.23 10*3/uL Normal 1.45-7.50 [facility] Comment on above: Order Comment: Speci men Type: BLOOD SPECIMENOrdering Facility: [facility] Address: [address] [place] [address] Performed By: #### 5 7021-8 ####[facility] LABCLIA [id number] [place] [address] Neutrophils/100 WBC (Bld) 73.0 % Normal [facility] Comment on above: Order Comment: Speci men Type: BLOOD SPECIMENOrdering Facility: [facility] Address: [address] [place] [address] Performed By: #### 5 7021-8 ####[facility] LABCLIA [id number] [place] [address] Nucleated RBC (Bld) [#/Vol] 10*3/uL Normal <0.01 [facility] Comment on above: Order Comment: Speci men Type: BLOOD SPECIMENOrdering Facility: [facility] Address: [address] [place] [address] Performed By: #### 5 7021-8 ####[facility] LABCLIA [id number] [place] [address] Nucleated RBC/100 WBC (Bld) [Ratio] 0.0 /100 WBC Normal [facility] Comment on above: Order Comment: Speci men Type: BLOOD SPECIMENOrdering Facility: [facility] Address: [address] [place] [address] Performed By: #### 5 7021-8 ####[facility] LABCLIA [id number] [place] [address] Platelet mean volume (Bld) [Entitic vol] 8.8 fL Low 9.0-12.7 [facility] Comment on above: Order Comment: Speci men Type: BLOOD SPECIMENOrdering Facility: [facility] Address: [address] [place] [address] Performed By: #### 5 7021-8 ####[facility] LABCLIA [id number] [place] [address] Platelets (Bld) [#/Vol] 197 10*3/uL Normal 150-400 [facility] Comment on above: Order Comment: Speci men Type: BLOOD SPECIMENOrdering Facility: [facility] Address: [address] [place] [address] Performed By: #### 5 7021-8 ####[facility] LABCLIA [id number] [place] [address] RBC (Bld) [#/Vol] 4.19 10*6/uL Low 4.20-6.[address] [facility] Comment on above: Order Comment: Speci men Type: BLOOD SPECIMENOrdering Facility: [facility] Address: [address] [place], [place] [address] Performed By: #### 5 7021-8 ####[facility] LABIA [id number] [place] [address] WBC (Bld) [#/Vol] 8.53 10*3/uL Normal 3.70-11.[address] [facility] Comment on above: Order Comment: Speci men Type: BLOOD SPECIMENOrdering Facility: [facility] Address: [address] [place], [place] [address] Performed By: #### 5 7021-8 ####[facility] LABIA [id number] [place] [address] [facility]HEMASA[facility] SKYLER LE ([id number]) 1960 M Date Time Provider Department 04/07/25 [...] packages. Yes (more content not included)... Normal [facility] CNOVSPon 04-07-2025 CNOVSP Visit (SP) Office (HEMASA) SKYLER LE ([id number]) 1960 M Date Time Provider Department 04/07/25 1:20 PM [facility] During your visit today, we recorded the following information about you: Temperature Pulse Respiration Blood pressure 97 degrees 43/minute 18/minute 119/79 Weight 122.6 kg Ernesto Phoenix MD 04/07/2025 2:27 PM Addendum PATIENT NAME: Skyler Le CLINIC NO.: [id number] ATTENDING PHYSICIAN: Ernesto Phoenix MD DATE OF SERVICE: 04/07/[address] Bing Arvizu [address] [facility] [address] thank you for referring Skyler Le for [...] unusual findings. Doing well - Works in [employer]. - No smoking - No alcohol. - [...] Neuro: Gai (more content not included)... Normal [facility] 04-07-2025 [facility] Telephone (NCCAP) SKYLER LE ([id number]) 1960 M Date Time Provider Department 04/07/25 ERNESTO PHOENIX [facility] During your visit today, we recorded [...] Fully Assessed Reason for Visit: Referral Information [6209] Prescriptions as of 04/09/2025 - cabozantinib (CABOMETYX) [...] Status:Closed by PEARL BURDEN on 04/09/25 Normal [facility] Comprehensive metabolic 2000 panelOrdered By: Domenic Matias on 04-07-2025 Albumin [Mass/Vol] 4.1 g/dL 3.9 - 4.9 g/dL [facility] ALP [Catalytic activity/Vol] 75 U/L 38 - 113 U/L [facility] ALT [Catalytic activity/Vol] 8 U/L Low 10 - 54 U/L [facility] Anion gap [Moles/Vol] 8 mmol/L 8 - 15 mmol/L [facility] AST [Catalytic activity/Vol] 10 U/L Low 14 - 40 U/L [facility] Bilirubin [Mass/Vol] 0.2 mg/dL 0.2 - 1 .3 mg/dL [facility] Calcium [Mass/Vol] 9.7 mg/dL 8.5 - 10. 2 mg/dL [facility] Chloride [Moles/Vol] 100 mmol/L 98 - 10 7 mmol/L [facility] CO2 [Moles/Vol] 25 mmol/L 22 - 30 mmol/L [facility] Creatinine [Mass/Vol] 1.96 mg/dL High 0.73 - 1.22 mg/dL [facility] GFR/1.73 sq M.predicted among non-blacks MDRD (S/P/Bld) [Vol rate/Area] 37 mL/min/{1.73_m2} Low - PINF [facility] Comment on above: Estimated Glomerular Filtration [...] [Mass/Vol] 99 mg/dL 74 - 99 mg/dL [facility] Comment on above: The [place] Diabete s Association (ADA) provides guidance for [...] Standards of Medical Care in Diabetes 2016, [place] Diabetes Association. Diabetes Care. 2016.39(Suppl 1). Interpretation and review of laboratory results Abnormal [facility] Potassium [Moles/Vol] 4.7 mmol/L 3.7 - 5.1 mmol/L [facility] Protein [Mass/Vol] 7.1 g/dL 6.3 - 8.0 g/dL [facility] Sodium [Moles/Vol] 133 mmol/L Low 136 - 144 mmol/L [facility] Urea nitrogen [Mass/Vol] 27 mg/dL High 9 - 24 mg/dL [facility] Comprehensive metabolic 2000 panelon 04-07-2025 Albumin [Mass/Vol] 4.1 g/dL Normal 3.9-4.9 [facility] Comment on above: Order Comment: Speci men Type: BLOOD SPECIMENOrdering Facility: [facility] Address: [address] [place] [address] Performed By: #### 2 532-0, ####[facility] LABCLIA [id number] [place] [address] ALP [Catalytic activity/Vol] 75 U/L Normal 38-113 [facility] Comment on above: Order Comment: Speci men Type: BLOOD SPECIMENOrdering Facility: [facility] Address: [address] [place] [address] Performed By: #### 2 532-0, ####[facility] LABCLIA [id number] [place] [address] ALT [Catalytic activity/Vol] 8 U/L Low 10-54 [facility] Comment on above: Order Comment: Speci men Type: BLOOD SPECIMENOrdering Facility: [facility] Address: [address] [place] [address] Performed By: #### 2 532-0, ####[facility] LABCLIA [id number] [place] [address] Anion gap [Moles/Vol] 8 mmol/L Normal 8-15 [facility] Comment on above: Order Comment: Speci men Type: BLOOD SPECIMENOrdering Facility: [facility] Address: [address] [place] [address] Performed By: #### 2 532-0, ####[facility] LABCLIA [id number] [place] [address] AST [Catalytic activity/Vol] 10 U/L Low 14-40 [facility] Comment on above: Order Comment: Speci men Type: BLOOD SPECIMENOrdering Facility: [facility] Address: [address] [place] [address] Performed By: #### 2 532-0, ####[facility] LABCLIA [id number] [place] [address] Bilirubin [Mass/Vol] 0.2 mg/dL Normal 0.2-1.3 [facility] Comment on above: Order Comment: Speci men Type: BLOOD SPECIMENOrdering Facility: [facility] Address: [address] [place] [address] Performed By: #### 2 532-0, ####[facility] LABCLIA [id number] [place] [address] Calcium [Mass/Vol] 9.7 mg/dL Normal 8.5-10.2 [facility] Comment on above: Order Comment: Speci men Type: BLOOD SPECIMENOrdering Facility: [facility] Address: [address] [place] [address] Performed By: #### 2 532-0, ####[facility] LABCLIA [id number] [place] [address] Chloride [Moles/Vol] 100 mmol/L Normal 98-107 [facility] Comment on above: Order Comment: Speci men Type: BLOOD SPECIMENOrdering Facility: [facility] Address: [address] [place] [address] Performed By: #### 2 532-0, ####[facility] LABCLIA [id number] [place] [address] CO2 [Moles/Vol] 25 mmol/L Normal 22-30 [facility] Comment on above: Order Comment: Speci men Type: BLOOD SPECIMENOrdering Facility: [facility] Address: [address] [place], [place] [address] Performed By: #### 2 532-0, ####[facility] LABCLIA [id number] [place] [address] Creatinine [Mass/Vol] 1.96 mg/dL High 0.73-1.22 [facility] Comment on above: Order Comment: Speci men Type: BLOOD SPECIMENOrdering Facility: [facility] Address: [address] [place] [address] Performed By: #### 2 532-0, 78597-1 ####[facility] LABCLIA [id number] [place] [address] Creatinine and Glomerular filtration rate.predicted panel (S/P/Bld) 37 mL/min/1.73m??? Low >=60 [facility] Comment on above: Order Comment: Miguelina thomas Type: BLOOD SPECIMENOrdering Facility: [facility] Address: [address] [place] [address] Result Comment: Samantha mated Glomerular Filtration Rate [...] actual GFR. Performed By: #### 2 532-0, 44436-1 ####[facility] LABCLIA [id number] [place] [address] Glucose [Mass/Vol] 99 mg/dL Normal 74-99 [facility] Comment on above: Order Comment: Miguelina thomas Type: BLOOD SPECIMENOrdering Facility: [facility] Address: [address] [place] [address] Result Comment: The [place] Diabetes Association (ADA) provides guidance for cutoff [...] Standards of Medical Care in Diabetes 2016, [place] Diabetes Association. Diabetes Care. 2016.39(Suppl 1). Performed By: #### 2 532-0, ####[facility] LABCLIA [id number] [place] [address] Potassium [Moles/Vol] 4.7 mmol/L Normal 3.7-5.1 [facility] Comment on above: Order Comment: Speci men Type: BLOOD SPECIMENOrdering Facility: [facility] Address: [address] [place] [address] Performed By: #### 2 532-0, ####[facility] LABCLIA [id number] [place] [address] Protein [Mass/Vol] 7.1 g/dL Normal 6.3-8.0 [facility] Comment on above: Order Comment: Speci men Type: BLOOD SPECIMENOrdering Facility: [facility] Address: [address] [place] [address] Performed By: #### 2 532-0, ####[facility] LABCLIA [id number] [place] [address] Sodium [Moles/Vol] 133 mmol/L Low 136-144 [facility] Comment on above: Order Comment: Speci men Type: BLOOD SPECIMENOrdering Facility: [facility] Address: [address] [place] [address] Performed By: #### 2 532-0, ####[facility] LABCLIA [id number] [place] [address] Urea nitrogen [Mass/Vol] 27 mg/dL High 9-24 [facility] Comment on above: Order Comment: Speci men Type: BLOOD SPECIMENOrdering Facility: [facility] Address: [address] [place] [address] Performed By: #### 2 532-0, ####[facility] LABCLIA [id number] [place] [address] LACTATE DEHYDROGENASEon 07-0 LDH [Catalytic activity/Vol] 116 U/L Low 135 - 225 U/L [facility] LDH SerPl-cCncon 04-07-2025 LDH [Catalytic activity/Vol] 116 U/L Low 135-225 [facility] Comment on above: Order Comment: Speci men Type: BLOOD SPECIMENOrdering Facility: [facility] Address: [address] [place] [address] Performed By: #### 2 532-0, 46770-6 ####[facility] LABCLIA [id number] [place] [address] LDH [Catalytic activity/Vol] on 04-07-2025 Interpretation and review of laboratory results Abnormal [facility] MISC SEND OUT TST 1on 2024 MISC SCAN TEST RESULTS 1 Normal [facility] Comment on above: Order Comment: Speci men Type: BLOOD SPECIMENOrdering Facility: [facility] Address: [address] [place] [address] Result Comment: Rese arch Performed By: #### M ISC1 ####[facility] LABCLIA [id number] [place] [address] [place] REFERRAL LAB 1 (DROP-DOWN) Normal [facility] Comment on above: Order Comment: Speci men Type: BLOOD SPECIMENOrdering Facility: [facility] Address: [address] [place] [address] Result Comment: Rese arch Performed By: #### M ISC1 ####[facility] LABCLIA [id number] [place] [address] [place] TEST 1 Normal [facility] Comment on above: Order Comment: Speci men Type: BLOOD SPECIMENOrdering Facility: [facility] Address: [address] [place] [address] Result Comment: Rese arch Performed By: #### M ISC1 ####[facility] LABCLIA [id number] [place] [id number] [place] CNPLoren 04-02-2025 CNPN Telephone (FVUROL) LESKYLER MYLES ([id number]) 1960 M Date Time Provider Department 04/02/25 BING ARVIZU During your visit today, we recorded the following information about you: Tamiko Jimenes 04/02/2025 4:02 PM Addendum Patient called into office requesting a release back to work letter from recent surgery with Dr. Arvizu. He is asking for release date of 04/14/2025. Patient can be reached on number listed in [employer] as home/mobile. Krzysztof Gil MA 04/03/2025 10:37 AM Signed Sent letter to patient via WHILL message for patient advising a return to work letter has been sent to his [employer] Krzysztof Gil MA Allergies As of Date: [...] Encounter Status:Closed by KRZYSZTOF GIL on 04/03/25 [facility] CNPN Telephone (SDOPRX) SKYLER LE ([id number]) 1960 M Date Time Provider Department 04/02/25 ISABELA DE LA FUENTE SDOPRX During your visit today, we recorded the following information about you: Isabela De La Fuente [facility] 04/07/2025 1:44 PM Signed Ambulatory Pharmacy Prior Authorization Note Provider Intervention Required?: No - Pharmacy completed on your behalf. Was the PA documented within the ePA workqueue?: No Rx Plan: Other: [employer] Drug: Cabometyx Cover My Meds Amaya: NA Determination: Denied PA Denied because: Step therapy requirement - Patient's insurance prefers P[employer] first line Prior Authorization/Case #: [id number] Prior Authorization Expiration: Time to PA Submission in CMM: 30 min Time to PA Determination in CMM: 3 days Additional Information: Appeal was faxed to [employer] at (Phone #: ) For questions relating to this submission, please contact [facility] at [phone] Isabela De La Fuente RPh 04/09/2025 11:36 AM Addendum Approval received. Must fill at [facility]. New script pended. Pharmacy contact # . Sent [employer] Message to patient updating him on status of medication. Appeal follow-up: Called 04/09/25 : Notified case is in clinical review and could take up to 30 business days. Informed administrative representative that was unacceptable and to please candy the case urgent. Clinical Documentation Spec marked appeal high priority. Case #[id number] Allergies As of Date: 04/02/2025 Noted Allergy Reaction FLOMAX (TAMSULOSIN) 02/27/2025 14 - Other: See Comments Comments: dizziness and back pain Date Reviewed: 03/18/2025 Reviewed by: Isabella Javier MA - Fully Assessed Reason for Visit: Medication Update [9845] Cmt: Cabometyx Prescriptions as of 04/09/2025 - [...] by ISABELA DE LA FUENTE on 04/09/25 [facility] CNPN Telephone (HEMASA) SKYLER LE ([id number]) 1960 M Date Time Provider Department 04/02/25 [...] Status:Closed by NIRMALA FELIZ on 04/10/25 Normal [facility] CNNURSEon 04-01-2025 CNNURSE Nurse Visit (HEMASA) SKYLER LE ([id number]) 1960 M Date Time Provider Department 04/01/25 11:00 AM VALERIE MOSQUEDA During your visit today, we recorded the following information about you: Travis Viveros RPh 04/01/2025 11:52 AM Signed [facility] Department of Pharmacy Oncology Pharmacy Medication [...] pain, diet, (more content not included)... Normal [facility] GLUCOSE, BLOOD (POC)on 04-01 Glucose [Mass/Vol] 104 mg/dL Abnormal 74 - 99 mg/dL [facility] Comment on above: Location:[facility], [address] [place] [address] , [place], [place], [address] The Accu-Chek Inform II glucose meter has [...] Interpretation and review of laboratory results Abnormal [facility] PET/CT SKULL-THIGH INITon 04-01-2025 NM [...] * Uptake Time: 60 minutes * Radiopharmaceutical: E97-Veybmpumfejsusqypz (FDG) COMPARISON: No previous FDG PET/CT available CORRELATION: [facility] CT abdomen/pelvis 12/14/2024 RESULT: REFERENCES: FDG [...] any questi (more content not included)... Normal [facility] PET+CT Guidance for localiza tion of tumor [...] * Uptake Time: 60 minutes * Radiopharmaceutical: B90-Irdzjcebufivagzbmz (FDG) COMPARISON: No previous FDG PET/CT available CORRELATION: [facility] CT abdomen/pelvis 12/14/2024 RESULT: REFERENCES: FDG [...] content not included)... DIVISION OF RADIOLOGY Provider, [facility] - 04/01/2025 * * *Final Report* * [...] * Uptake Time: 60 minutes * Radiopharmaceutical: U74-Buqfelldjyxiglryso (FDG) COMPARISON: No previous FDG PET/CT available [...] reviewed and electroni (more content not included)... [facility] Radiology Study observation (narrative) [facility] PET+CT Guidance for localiza tion of tumor of Skull base to mid-thigh-- W 18F-FDG IVOrdered By: Ccf Provider on 04-01-2025 [facility] 03-28-2025 CNPN Telephone (HEMASA) SKYLER LE ([id number]) 1960 M Date Time Provider Department 03/28/25 [...] nausea/vomiting.Disp: 90 tabletRfl: 2 CONSULT TO SURVIVORSHIP [[id number]] Order #: [id number]: 1 FUTURE CONSULT TO ONCOLOGY NUTRITION [[id number]] Order #: [id number]: 1 FUTURE Prescriptions as of 05/12/2025 - [...] Encounter Status:Closed by VALERIE MOSQUEDA on 05/12/25 [facility] Sarai 03-20-2025 CNPN Telephone (HEMASA) SKYLER LE ([id number]) 1960 M Date Time Provider Department 03/20/25 ERNESTO PHOENIX During your visit today, we recorded the following information about you: Ernesto Phoenix MD 03/20/2025 8:32 AM Signed Please load keytruda 200mg every 3 weeks and schedule it. Thank you Pearl Burden 03/20/2025 8:54 AM Signed Patient is scheduled to begin on 04/07. Tamika Cooney [facility] 03/20/2025 9:32 AM Signed Orders entered and [...] Encounter Status:Closed by TAMIKA MADISON on 03/20/25 [facility] CNOVSPon 03-18-2025 CNOVSP Visit (SP) Office (HEMASA) SKYLER LE ([id number]) 1960 M Date Time Provider Department 03/18/25 4:00 PM ERNESTO [place] During your visit today, we recorded the following information about you: Temperature Pulse Respiration Blood pressure 97 degrees 43/minute 16/minute 144/74 Weight Height 121.3 kg 1.829 m Ernesto Phoenix MD 03/18/2025 4:41 PM Signed PATIENT NAME: Skyler Le CLINIC NO.: [id number] ATTENDING PHYSICIAN: Ernesto Phoenix MD DATE OF SERVICE: March Dear Dr. Bing Arvizu [address] [facility] [address] thank you for referring Skyler Le for [...] unusual findings. Doing well - Works in [employer]. - No smoking - No alcohol. - [...] 03/10/2025 19 (more content not included)... Normal [facility] Ambulatory Visit Summaryon 0 03-14-2025 Ambulatory Visit [...] KARLA JAMES, Nikolai Berry, URL When: Where: [address] [place] [address]- Medications What How Much When Instructions New [...] making and (more content not included)... 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 CT AP w/wo con 12/14/24 [facility] - 6.9 x 6.3 x 6.0 [...] the ER earlier this week, went to [facility]. Pt's potassium was 6.2 and Cr was 2.0. Pt states his potassium was rechecked and has decreased into normal range (per pt). -Proceed with onc consultation at [facility] -Will provide pt with orders for BUN, [...] Information KARLA JAMES, Nikolai Berry, URL [address] [place] [address]- Additional Instructions: 6 mos Patient Education Kidney [...] Medications acetaminoph (more content not included)... Normal [facility] Comment on above: Result Comment: Elec tronically Signed By: Nikolai ACOSTA MD\.br\Date and Time Signed: 03/14/25 08:48 EDT\.br\Electronically Co-Signed By: Yessenia Chandra\.br\Date and Time Co-Signed: 03/14/25 08:45 EDT\.br\Electronically Co-Signed By: Yessenia Chandra\.br\Date and Time Co-Signed: 03/14/25 08:47 EDT CNPNon 06-11-2025 DEEPN Telephone (FVUROL) SKYLER LE ([id number]) 1960 M Date Time Provider Department 03/12/25 BING ARVIZU FVUROL During your visit today, we recorded the following information about you: Darrell Justin RN 03/12/2025 1:35 PM Signed FLMA forms completed and faxed to [facility]. Fax confirmation received. Completed forms placed at the bowling [facility] skating front desk clerk to be scanned into patients chart. Darrell [...] Encounter Status:Closed by DARRELL JUSTIN on 03/12/25 [facility] 03-11-2025 CNPN Telephone (AVPRAD) SKYLER LE ([id number]) 1960 M Date Time Provider Department 03/11/25 [...] go to ED closer to [place] as [place] hour away. All questions [...] Encounter Status:Closed by AUREA RODRIGUEZ on 03/11/25 [facility] CNPN Telephone (FVPRAD) SKYLER LE ([id number]) 1960 Date Time Provider Department 03/11/25 TAMANNA ZHU FVPRAD During your visit today, we recorded the following information about you: Tamanna Zhu APRN.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 03/11/2025 9:31 AM Signed Spoke with Mr. [...] Status:Closed by TAMANNA ZHU on 03/11/25 Normal [facility] Renal function 2000 panelon 03-10-2025 Albumin [Mass/Vol] 3.9 g/dL Normal 3.9-4.9 [facility] Comment on above: Order Comment: Speci william Type: BLOOD SPECIMENOrdering Facility: [facility] Address: [address] [place] [address] Performed By: #### 2 4362-6 ####[facility] LABCLIA [id number] [place] [address] [place] Anion gap [Moles/Vol] 15 mmol/L Normal 8-15 [facility] Comment on above: Order Comment: Speci men Type: BLOOD SPECIMENOrdering Facility: [facility] Address: [address] [place] [address] Performed By: #### 2 4362-6 ####[facility] LABCLIA [id number] [place] [address] [place] Calcium [Mass/Vol] 9.8 mg/dL Normal 8.5-10.2 [facility] Comment on above: Order Comment: Ryliei men Type: BLOOD SPECIMENOrdering Facility: [facility] Address: [address] [place] [address] Performed By: #### 2 4362-6 ####[facility] LABCLIA [id number] [place] [id number] [place] Chloride [Moles/Vol] 100 mmol/L Normal 98-107 [facility] Comment on above: Order Comment: Speci men Type: BLOOD SPECIMENOrdering Facility: [facility] Address: [address] [place] [address] Performed By: #### 2 4362-6 ####[facility] LABCLIA [id number] [place] [id number] [place] CO2 [Moles/Vol] 19 mmol/L Low 22-30 [facility] Comment on above: Order Comment: Speci men Type: BLOOD SPECIMENOrdering Facility: [facility] Address: [address] [place] [address] Performed By: #### 2 4362-6 ####[facility] LABCLIA [id number] [address] [place] Creatinine [Mass/Vol] 2.16 mg/dL High 0.73-1.22 [facility] Comment on above: Order Comment: Speci men Type: BLOOD SPECIMENOrdering Facility: [facility] Address: [address] [place] [address] Performed By: #### 2 4362-6 ####[facility] LABIA [id number] [address] [place] OF [facility] Creatinine and Glomerular filtration rate.predicted panel (S/P/Bld) 33 mL/min/1.73m??? Low >=60 [facility] Comment on above: Order Comment: Speci men Type: BLOOD SPECIMENOrdering Facility: [facility] Address: [address] [place] [address] Result Comment: Samantha mated Glomerular Filtration Rate [...] actual GFR. Performed By: #### 2 4362-6 ####[facility] [id number] [place] [address] [place] Glucose [Mass/Vol] 94 mg/dL Normal 74-99 [facility] Comment on above: Order Comment: Speci men Type: BLOOD SPECIMENOrdering Facility: [facility] Address: [address] [place] [address] Result Comment: The [place] Diabetes Association (ADA) provides guidance for cutoff [...] Standards of Medical Care in Diabetes 2016, [place] [employer] Association. Diabetes Care. 2016.39(Suppl 1). Performed By: #### 2 4362-6 ####[facility] LABIA [id number] [place] [id number] [place] Phosphate [Mass/Vol] 3.7 mg/dL Normal 2.7-4.8 [facility] Comment on above: Order Comment: Ryliei men Type: BLOOD SPECIMENOrdering Facility: [facility] Address: [address] [place] [address] Performed By: #### 2 4362-6 ####[facility] [id number] [place] [id number] [place] Potassium [Moles/Vol] 6.2 mmol/L Critically high 3.7-5.1 [facility] Comment on above: Order Comment: Ryliei men Type: BLOOD SPECIMENOrdering Facility: [facility] Address: [address] [place] [address] Performed By: #### 2 4362-6 ####[facility] [id number] [place] [id number] [place] Sodium [Moles/Vol] 134 mmol/L Low 136-144 [facility] Comment on above: Order Comment: Speci men Type: BLOOD SPECIMENOrdering Facility: [facility] Address: [address] [place] [address] Performed By: #### 2 4362-6 ####[facility] [id number] [place] [address] [place] Urea nitrogen [Mass/Vol] 31 mg/dL High 9-24 [facility] Comment on above: Order Comment: Speci men Type: BLOOD SPECIMENOrdering Facility: [facility] Address: [address] [place] [address] Performed By: #### 2 4362-6 ####[facility] [id number] [place] [id number] [facility] Sarai 03-05-2025 CARLY Telephone (TAYLOR) SKYLER LE ([id number]) 1960 M Date Time Provider Department 03/05/25 [...] Fully Assessed Reason for Visit: Patient Question [2910] Prescriptions as of 03/05/2025 - acetaminophen (TYLENOL) [...] Status:Closed by ANGELA LUIS on 03/05/25 Normal [facility] Renal function 2000 panelon 03-04-2025 Albumin [Mass/Vol] 3.6 g/dL Low 3.9-4.9 [facility] Comment on above: Order Comment: Speci men Type: BLOOD SPECIMENOrdering Facility: [facility] Address: [address] [place] [id number] Performed By: #### 2 4362-6 ####[facility] LABCLIA [id number] [place] [id number] [place] Anion gap [Moles/Vol] 14 mmol/L Normal 8-15 [facility] Comment on above: Order Comment: Speci men Type: BLOOD SPECIMENOrdering Facility: [facility] Address: [address] [place] [address] Performed By: #### 2 4362-6 ####[facility] LABCLIA [id number] [place] [address] [place] Calcium [Mass/Vol] 9.4 mg/dL Normal 8.5-10.2 [facility] Comment on above: Order Comment: Speci men Type: BLOOD SPECIMENOrdering Facility: [facility] Address: [address] [place] [address] Performed By: #### 2 4362-6 ####[facility] LABCLIA [id number] [place] [id number] [place] Chloride [Moles/Vol] 98 mmol/L Normal 98-107 [facility] Comment on above: Order Comment: Speci men Type: BLOOD SPECIMENOrdering Facility: [facility] Address: [address] [place] [address] Performed By: #### 2 4362-6 ####[facility] LABCLIA [id number] [place] [id number] [place] CO2 [Moles/Vol] 21 mmol/L Low 22-30 [facility] Comment on above: Order Comment: Speci men Type: BLOOD SPECIMENOrdering Facility: [facility] Address: [address] [place], [place] [address] Performed By: #### 2 4362-6 ####[facility] LABCLIA [id number] [place] [id number] [place] Creatinine [Mass/Vol] 2.08 mg/dL High 0.73-1.22 [facility] Comment on above: Order Comment: Miguelina thomas Type: BLOOD SPECIMENOrdering Facility: [facility] Address: [address] [place] [address] Performed By: #### 2 4362-6 ####[facility] LABCLIA [id number] [place] [address] [place] Creatinine and Glomerular filtration rate.predicted panel (S/P/Bld) 34 mL/min/1.73m??? Low >=60 [facility] Comment on above: Order Comment: Miguelina thomas Type: BLOOD SPECIMENOrdering Facility: [facility] Address: [address] [place] [address] Result Comment: Samantha mated Glomerular Filtration Rate [...] actual GFR. Performed By: #### 2 4362-6 ####[facility] LABCLIA [id number] [place] [address] [place] Glucose [Mass/Vol] 115 mg/dL High 74-99 [facility] Comment on above: Order Comment: Miguelina thomas Type: BLOOD SPECIMENOrdering Facility: [facility] Address: [address] [place] [address] Result Comment: The [place] Diabetes Association (ADA) provides guidance for cutoff [...] Standards of Medical Care in Diabetes 2016, [place] [employer]. Diabetes Care. 2016.39(Suppl 1). Performed By: #### 2 4362-6 ####[facility] LABCLIA [id number] [address] [address] [place] Phosphate [Mass/Vol] 3.1 mg/dL Normal 2.7-4.8 [facility] Comment on above: Order Comment: Speci men Type: BLOOD SPECIMENOrdering Facility: [facility] Address: [address] [place] [address] Performed By: #### 2 4362-6 ####[facility] LABCLIA [id number] [place] [id number] [place] Potassium [Moles/Vol] 5.6 mmol/L High 3.7-5.1 [facility] Comment on above: Order Comment: Speci men Type: BLOOD SPECIMENOrdering Facility: [facility] Address: [address] [place] [address] Performed By: #### 2 4362-6 ####[facility] LABIA [id number] [address] [address] [place] Sodium [Moles/Vol] 133 mmol/L Low 136-144 [facility] Comment on above: Order Comment: Speci men Type: BLOOD SPECIMENOrdering Facility: [facility] Address: [address] [place], [place] [address] Performed By: #### 2 4362-6 ####[facility] LABCLIA [id number] [address] [address] [place] Urea nitrogen [Mass/Vol] 33 mg/dL High 9-24 [facility] Comment on above: Order Comment: Speci men Type: BLOOD SPECIMENOrdering Facility: [facility] Address: [address] [place], [place] [address] Performed By: #### 2 4362-6 ####[facility] LABCLIA [id number] [facility] [id number] [place], [place] [address] [place] ANES POSTPROC EVALon 025 ANES POSTPROC EVAL HNO ID: [id number] Author: BETH MASTERSON DO Service: Anesthesiology Author [...] February 28, 2025 TIME: 7:22 AM CSN: [id number] Normal [facility] Basic metabolic 2000 panelon 02-28-2025 Anion gap [Moles/Vol] 15 mmol/L Normal 8-15 [facility] Comment on above: Order Comment: Speci men Type: BLOOD SPECIMENOrdering Facility: [facility] Address: [address] [place] [address] Performed By: #### 2 4321-2 ####[facility]ATORY[facility] [id number] [place] [address] [place] Calcium [Mass/Vol] 8.9 mg/dL Normal 8.5-10.2 [facility] Comment on above: Order Comment: Speci men Type: BLOOD SPECIMENOrdering Facility: [facility] Address: [address] [place] [address] Performed By: #### 2 4321-2 ####[facility]ATORYCL[facility] [id number] [place] [id number] [place] Chloride [Moles/Vol] 99 mmol/L Normal 98-107 [facility] Comment on above: Order Comment: Speci men Type: BLOOD SPECIMENOrdering Facility: [facility] Address: [address] [place] [address] Performed By: #### 2 4321-2 ####[facility]ATORYCLIA [id number] [place] [id number] [place] CO2 [Moles/Vol] 21 mmol/L Low 22-30 [facility] Comment on above: Order Comment: Speci men Type: BLOOD SPECIMENOrdering Facility: [facility] Address: [address] [place] [address] Performed By: #### 2 4321-2 ####[facility]ORYCL[facility] [id number] [place] [id number] [place] Creatinine [Mass/Vol] 2.00 mg/dL High 0.73-1.22 [facility] Comment on above: Order Comment: Speci men Type: BLOOD SPECIMENOrdering Facility: [facility] Address: [address] [place] [address] Performed By: #### 2 4321-2 ####[facility]ORYCL[facility] [id number] [place] [id number] [place] Creatinine and Glomerular filtration rate.predicted panel (S/P/Bld) 36 mL/min/1.73m??? Low >=60 [facility] Comment on above: Order Comment: Speci men Type: BLOOD SPECIMENOrdering Facility: [facility] Address: [address] [place] [address] Result Comment: Samantha mated Glomerular Filtration Rate [...] actual GFR. Performed By: #### 2 4321-2 ####[facility] LABORATORYCLIA [id number] [place] [address] [place] Glucose [Mass/Vol] 131 mg/dL High 74-99 [facility] Comment on above: Order Comment: Miguelina thomas Type: BLOOD SPECIMENOrdering Facility: [facility] Address: [address] [place] [address] Result Comment: The [place] Diabetes Association (ADA) provides guidance for cutoff [...] Standards of Medical Care in Diabetes 2016, [place] Diabetes Association. Diabetes Care. 2016.39(Suppl 1). Performed By: #### 2 4321-2 ####[facility] LABORATORYCLIA [id number] [place] [id number] [place] Potassium [Moles/Vol] 4.6 mmol/L Normal 3.7-5.1 [facility] Comment on above: Order Comment: Miguelina thomas Type: BLOOD SPECIMENOrdering Facility: [facility] Address: [address] [place] [id number] Performed By: #### 2 4321-2 ####[facility] LABORATORYCLIA [id number] [place] [id number] [place] Sodium [Moles/Vol] 135 mmol/L Low 136-144 [facility] Comment on above: Order Comment: Speci men Type: BLOOD SPECIMENOrdering Facility: [facility] Address: [address] [place] [address] Performed By: #### 2 4321-2 ####[facility]ATORYCLIA [id number] [place] [address] [place] Urea nitrogen [Mass/Vol] 28 mg/dL High 9-24 [facility] Comment on above: Order Comment: Speci men Type: BLOOD SPECIMENOrdering Facility: [facility] Address: [address] [place] [address] Performed By: #### 2 4321-2 ####[facility]ATORYCLIA [id number] [place] [address] [place] Anion gap [Moles/Vol] 11 mmol/L Normal 8-15 [facility] Comment on above: Order Comment: Speci men Type: BLOOD SPECIMEN [facility]ing Facility: [facility] Address: [address] [place] [address] Performed By: #### 2 4321-2 #### [facility] CLIA [id number] [address] [place] [address] [place] Calcium [Mass/Vol] 8.3 mg/dL Low 8.5-10.2 [facility] Comment on above: Order Comment: Speci men Type: BLOOD SPECIMEN [facility]ing Facility: [facility] Address: [address] [place] [address] Performed By: #### 2 4321-2 #### [facility] CLIA [id number] [place] [address] [place] Chloride [Moles/Vol] 101 mmol/L Normal 98-107 [facility] Comment on above: Order Comment: Speci men Type: BLOOD SPECIMEN [facility]ing Facility: [facility] Address: [address] [place] [address] Performed By: #### 2 4321-2 #### [facility] CLIA [id number] [place] [address] [place] CO2 [Moles/Vol] 22 mmol/L Normal 22-30 [facility] Comment on above: Order Comment: Miguelina thomas Type: BLOOD SPECIMEN [facility]ing Facility: [facility] Address: [address] [place] [address] Performed By: #### 2 4321-2 #### [facility] CLIA [id number] [place] [address] [place] Creatinine [Mass/Vol] 1.99 mg/dL High 0.73-1.22 [facility] Comment on above: Order Comment: Miguelina thomas Type: BLOOD SPECIMEN Ordering Facility: [facility] Address: [address] [place] [address] Performed By: #### 2 4321-2 #### [facility] CLIA [id number] [address] [place] [address] [place] Creatinine and Glomerular filtration rate.predicted panel (S/P/Bld) 36 mL/min/1.73m??? Low >=60 [facility] Comment on above: Order Comment: Miguelina william Type: BLOOD SPECIMEN Ordering Facility: [facility] Address: [address] [place] [address] Result Comment: Samantha mated Glomerular Filtration Rate [...] GFR. Performed By: #### 2 4321-2 #### [facility] CLIA [id number] [address] [place] [address] [place] Glucose [Mass/Vol] 142 mg/dL High 74-99 [facility] Comment on above: Order Comment: Miguelina william Type: BLOOD SPECIMEN [facility]ing Facility: [facility] Address: [address] [place] [address] Result Comment: The [place] Diabetes Association (ADA) provides guidance for cutoff [...] Standards of Medical Care in Diabetes 2016, [place] [employer] Association. Diabetes Care. 2016.39(Suppl 1). Performed By: #### 2 4321-2 #### [facility] CLIA [id number] [address] [place] [address] [place] Potassium [Moles/Vol] 5.8 mmol/L High 3.7-5.1 [facility] Comment on above: Order Comment: Ryliei william Type: BLOOD SPECIMEN Ordering Facility: [facility] Address: [address] [place] [address] Performed By: #### 2 4321-2 #### [facility] CLIA [id number] [address] [place] [address] [place] Sodium [Moles/Vol] 134 mmol/L Low 136-144 [facility] Comment on above: Order Comment: Miguelina thomas Type: BLOOD SPECIMEN [facility]ing Facility: [facility] Address: [address] [place] [address] Performed By: #### 2 4321-2 #### [facility] CLIA [id number] [address] [place] [address] [place] Urea nitrogen [Mass/Vol] 29 mg/dL High 9-24 [facility] Comment on above: Order Comment: Speci men Type: BLOOD SPECIMEN [facility]ing Facility: [facility] Address: [address] [place] [address] Performed By: #### 2 4321-2 #### [facility] CLIA [id number] [address] [place] [address] [place] CBC panel Auto (Bld)on 02-28 Erythrocyte distribution width (RBC) [Ratio] 16.5 % High 11.5-15.0 [facility] Comment on above: Order Comment: Speci men Type: BLOOD SPECIMEN Ordering Facility: [facility] Address: [address] [place] [address] Performed By: #### 5 8410-2 #### [facility] CLIA [id number] [address] [place] [address] Hematocrit (Bld) [Volume fraction] 30.1 % Low 39.0-51.0 [facility] Comment on above: Order Comment: Speci men Type: BLOOD SPECIMEN Ordering Facility: [facility] Address: [address] [place] [address] Performed By: #### 5 8410-2 #### [facility] CLIA [id number] [address] [place] [address] [place] Hemoglobin (Bld) [Mass/Vol] 9.2 g/dL Low 13.0-17.0 [facility] Comment on above: Order Comment: Speci men Type: BLOOD SPECIMEN Ordering Facility: [facility] Address: [address] [place] [address] Performed By: #### 5 8410-2 #### [facility] CLIA [id number] [address] [place] [address] [place] MCH (RBC) [Entitic mass] 24.0 pg Low 26.0-34.0 [facility] Comment on above: Order Comment: Speci men Type: BLOOD SPECIMEN Ordering Facility: [facility] Address: [address] [place] [address] Performed By: #### 5 8410-2 #### [facility] CLIA [id number] [address] [place] [address] [place] MCHC (RBC) [Mass/Vol] 30.6 g/dL Normal 30.5-36.0 [facility] Comment on above: Order Comment: Speci men Type: BLOOD SPECIMEN Ordering Facility: [facility] Address: [address] [place] [address] Performed By: #### 5 8410-2 #### [facility] CLIA [id number] [address] [place] [address] [place] MCV (RBC) [Entitic vol] 78.4 fL Low 80.0-100.0 [facility] Comment on above: Order Comment: Speci men Type: BLOOD SPECIMEN Ordering Facility: [facility] Address: [address] [place] [address] Performed By: #### 5 8410-2 #### [facility] CLIA [id number] [address] [place] [address] [place] Nucleated RBC (Bld) [#/Vol] 10*3/uL Normal <0.01 [facility] Comment on above: Order Comment: Speci men Type: BLOOD SPECIMEN Ordering Facility: [facility] Address: [address] [place] [address] Performed By: #### 5 8410-2 #### [facility] CLIA [id number] [address] [place] [address] [place] Platelet mean volume (Bld) [Entitic vol] 9.1 fL Normal 9.0-12.7 [facility] Comment on above: Order Comment: Speci men Type: BLOOD SPECIMEN Ordering Facility: [facility] Address: [address] [place] [address] Performed By: #### 5 8410-2 #### [facility] CLIA [id number] [address] [place] [address] [place] Platelets (Bld) [#/Vol] 243 10*3/uL Normal 150-400 [facility] Comment on above: Order Comment: Speci men Type: BLOOD SPECIMEN Ordering Facility: [facility] Address: [address] [place] [address] Performed By: #### 5 8410-2 #### [facility] CLIA [id number] [address] [place] [address] [place] RBC (Bld) [#/Vol] 3.84 10*6/uL Low 4.20-6.00 [facility] Comment on above: Order Comment: Speci men Type: BLOOD SPECIMEN Ordering Facility: [facility] Address: [address] [place] [address] Performed By: #### 5 8410-2 #### [facility] CLIA [id number] [address] [place] [address] [place] WBC (Bld) [#/Vol] 12.56 10*3/uL High 3.70-11.00 [facility] Comment on above: Order Comment: Speci men Type: BLOOD SPECIMEN Ordering Facility: [facility] Address: [address] [place] [address] Performed By: #### 5 8410-2 #### [facility] CLIA [id number] [place], [place] [id number] [place] NURSING PROGon 02-28-2025 NURSING PROG HNO ID: [id number] Author: ANABEL BARNETT, RN Service: Nursing Author [...] hold or give metoprolol. Waiting for orders [facility] THERAPY NTon 02-28-2025 THERAPY NT HNO ID: [id number] Author: CAROL ARITA, NINOSKA Service: Respiratory Therapy Author Type: Registered Resp Therapist Type: Therapy (PT/OT/Speech/Resp) Filed: 02/28/2025 03:56 Note Text: RESPIRATORY THERAPY PROGRESS NOTE SERVICE DATE: 02/28/2025 SERVICE TIME: 0000 Patient has home CPAP present, purple team paged for CPAP orders. SIGNATURE: Carol Arita RRT PATIENT NAME: Skyler Le DATE: February 28, 2025 TIME: 3:54 AM PAGER/CONTACT #: [facility] ANES PRE-OPon 02-27-2025 ANES PRE-OP HNO ID: [id number] Author: BETH MASTERSON DO Service: Anesthesiology Author [...] February 27, 2025 TIME: 7:12 AM CSN: [id number] Normal [facility] ARTERIAL BLOOD GASESon 02-27 Base deficit (BldA) [Moles/Vol] -3 mmol/L Low -2-0 [facility] Comment on above: Order Comment: Miguelina thomas Type: ARTERIAL BLOOD SPECIMEN Ordering Facility: [facility] Address: [address] [place] [address] Performed By: #### A LLBG #### [facility] CLIA [id number] [address] [place] [address] [place] Calcium.ionized (Bld) [Mass/Vol] 1.24 mmol/L Normal 1.08-1.30 [facility] Comment on above: Order Comment: Miguelina thomas Type: ARTERIAL BLOOD SPECIMEN Ordering Facility: [facility] Address: [address] [place] [address] Performed By: #### A LLBG #### [facility] CLIA [id number] [address] [place] [address] [place] Calcium.ionized adjusted to pH 7.4 (BldA) [Moles/Vol] 1.20 mmol/L Normal 1.08-1.30 [facility] Comment on above: Order Comment: Speci men Type: ARTERIAL BLOOD SPECIMEN Ordering Facility: [facility] Address: [address] [place] [address] Performed By: #### A LLBG #### [facility] CLIA [id number] [address] [place] [address] [place] Carboxyhemoglobin (BldA) [Mass fraction] 1.4 % Normal 0.0-2.0 [facility] Comment on above: Order Comment: Speci men Type: ARTERIAL BLOOD SPECIMEN Ordering Facility: [facility] Address: [address] [place] [address] Result Comment: Carb oxyhemoglobin Reference Range for Smokers: 2.0-8.0% Performed By: #### A LLBG #### [facility] CLIA [id number] [address] [place] [address] [place] Chloride [Moles/Vol] 103 mmol/L Normal 97-105 [facility] Comment on above: Order Comment: Speci men Type: ARTERIAL BLOOD SPECIMEN Ordering Facility: [facility] Address: [address] [place] [address] Performed By: #### A LLBG #### [facility] CLIA [id number] [address] [place] [address] [place] CO2 (Bld) [Partial pressure] 41 mm Hg Normal 36-46 [facility] Comment on above: Order Comment: Speci men Type: ARTERIAL BLOOD SPECIMEN Ordering Facility: [facility] Address: [address] [place] [address] Performed By: #### A LLBG #### [facility] CLIA [id number] [address] [place] [address] [place] CO2 adjusted to patient's actual temperature (Bld) [Partial pressure] Normal [facility] Comment on above: Order Comment: Speci men Type: ARTERIAL BLOOD SPECIMEN Ordering Facility: [facility] Address: [address] [place] [address] Performed By: #### A LLBG #### [facility] CLIA [id number] [address] [place] [address] [place] Glucose [Mass/Vol] 190 mg/dL High 60-105 [facility] Comment on above: Order Comment: Speci men Type: ARTERIAL BLOOD SPECIMEN Ordering Facility: [facility] Address: [address] [place] [address] Performed By: #### A LLBG #### [facility] CLIA [id number] [address] [place] [address] [place] HCO3 (Bld) [Moles/Vol] 22 mmol/L Normal 22-26 [facility] Comment on above: Order Comment: Speci men Type: ARTERIAL BLOOD SPECIMEN Ordering Facility: [facility] Address: [address] [place] [address] Performed By: #### A LLBG #### [facility] CLIA [id number] [address] [place] [address] [place] Hematocrit (Bld) [Volume fraction] 33.9 % Low 39.0-51.0 [facility] Comment on above: Order Comment: Speci men Type: ARTERIAL BLOOD SPECIMEN Ordering Facility: [facility] Address: [address] [place] [address] Performed By: #### A LLBG #### [facility] CLIA [id number] [address] [place] [address] [place] Hemoglobin (Bld) [Mass/Vol] 11.0 g/dL Low 13.0-17.0 [facility] Comment on above: Order Comment: Speci men Type: ARTERIAL BLOOD SPECIMEN Ordering Facility: [facility] Address: [address] [place] [address] Performed By: #### A LLBG #### [facility] CLIA [id number] [address] [place] [address] [place] Lactate [Moles/Vol] 2.7 mmol/L High 0.5-2.2 [facility] Comment on above: Order Comment: Speci men Type: ARTERIAL BLOOD SPECIMEN Ordering Facility: [facility] Address: [address] [place] [address] Performed By: #### A LLBG #### [facility] CLIA [id number] [address] [place] [address] [place] Methemoglobin (Bld) [Mass fraction] 0.8 % Normal 0.0-1.5 [facility] Comment on above: Order Comment: Speci men Type: ARTERIAL BLOOD SPECIMEN Ordering Facility: [facility] Address: [address] [place] [address] Performed By: #### A LLBG #### [facility] CLIA [id number] [address] [place] [address] [place] Oxygen (Bld) [Partial pressure] 179 mm Hg High 85-95 [facility] Comment on above: Order Comment: Speci men Type: ARTERIAL BLOOD SPECIMEN Ordering Facility: [facility] Address: [address] [place] [address] Performed By: #### A LLBG #### [facility] [place] [id number] [address] [place] [address] [place] Oxygen adjusted to patient's actual temperature (Bld) [Partial pressure] Normal [facility] Comment on above: Order Comment: Speci men Type: ARTERIAL BLOOD SPECIMEN Ordering Facility: [facility] Address: [address] [place] [address] Performed By: #### A LLBG #### [facility] IA [id number] [address] [place] [address] [place] Oxyhemoglobin (BldA) [Mass fraction] 97 % Normal 95-98 [facility] Comment on above: Order Comment: Speci men Type: ARTERIAL BLOOD SPECIMEN Ordering Facility: [facility] Address: [address] [place] [address] Performed By: #### A LLBG #### [facility] CLIA [id number] [address] [place] [address] [place] pH (Bld) 7.35 [pH] Normal 7.35-7.45 [facility] Comment on above: Order Comment: Speci men Type: ARTERIAL BLOOD SPECIMEN Ordering Facility: [facility] Address: [address] [place] [address] Performed By: #### A LLBG #### [facility] CLIA [id number] [address] [place] [address] [place] pH adjusted to patient's actual temperature (Bld) Normal [facility] Comment on above: Order Comment: Speci men Type: ARTERIAL BLOOD SPECIMEN Ordering Facility: [facility] Address: [address] [place] [address] Performed By: #### A LLBG #### [facility] CLIA [id number] [address] [place] [address] [place] Potassium [Moles/Vol] 5.5 mmol/L High 3.5-5.0 [facility] Comment on above: Order Comment: Speci men Type: ARTERIAL BLOOD SPECIMEN Ordering Facility: [facility] Address: [address] [place] [address] Performed By: #### A LLBG #### [facility] CLIA [id number] [address] [place] [address] [place] Sodium [Moles/Vol] 135 mmol/L Low 136-144 [facility] Comment on above: Order Comment: Speci men Type: ARTERIAL BLOOD SPECIMEN Ordering Facility: [facility] Address: [address] [place] [address] Performed By: #### A LLBG #### [facility] CLIA [id number] [address] [place] [address] [place] Base deficit (BldA) [Moles/Vol] -3 mmol/L Low -2-0 [facility] Comment on above: Order Comment: Speci men Type: ARTERIAL BLOOD SPECIMEN Ordering Facility: [facility] Address: [address] [place] [address] Performed By: #### A LLBG #### [facility] CLIA [id number] [address] [place] [address] [place] Calcium.ionized (Bld) [Mass/Vol] 1.24 mmol/L Normal 1.08-1.30 [facility] Comment on above: Order Comment: Speci men Type: ARTERIAL BLOOD SPECIMEN Ordering Facility: [facility] Address: [address] [place] [address] Performed By: #### A LLBG #### [facility] CLIA [id number] [address] [place] [address] [place] Calcium.ionized adjusted to pH 7.4 (BldA) [Moles/Vol] 1.20 mmol/L Normal 1.08-1.30 [facility] Comment on above: Order Comment: Speci men Type: ARTERIAL BLOOD SPECIMEN Ordering Facility: [facility] Address: [address] [place] [address] Performed By: #### A LLBG #### [facility] CLIA [id number] [address] [place] [address] [place] Carboxyhemoglobin (BldA) [Mass fraction] 0.8 % Normal 0.0-2.0 [facility] Comment on above: Order Comment: Speci men Type: ARTERIAL BLOOD SPECIMEN Ordering Facility: [facility] Address: [address] [place] [address] Result Comment: Carb oxyhemoglobin Reference Range for Smokers: 2.0-8.0% Performed By: #### A LLBG #### [facility] IA [id number] [address] [place] [address] [place] Chloride [Moles/Vol] 102 mmol/L Normal 97-105 [facility] Comment on above: Order Comment: Speci men Type: ARTERIAL BLOOD SPECIMEN Ordering Facility: [facility] Address: [address] [place] [address] Performed By: #### A LLBG #### [facility] CLIA [id number] [address] [place] [address] [place] CO2 (Bld) [Partial pressure] 43 mm Hg Normal 36-46 [facility] Comment on above: Order Comment: Speci men Type: ARTERIAL BLOOD SPECIMEN Ordering Facility: [facility] Address: [address] [place] [address] Performed By: #### A LLBG #### [facility] CLIA [id number] [address] [place] [address] [place] CO2 adjusted to patient's actual temperature (Bld) [Partial pressure] Normal [facility] Comment on above: Order Comment: Speci men Type: ARTERIAL BLOOD SPECIMEN Ordering Facility: [facility] Address: [address] [place] [address] Performed By: #### A LLBG #### [facility] CLIA [id number] [address] [place] [address] [place] Glucose [Mass/Vol] 214 mg/dL High 60-105 [facility] Comment on above: Order Comment: Speci men Type: ARTERIAL BLOOD SPECIMEN Ordering Facility: [facility] Address: [address] [place] [address] Performed By: #### A LLBG #### [facility] CLIA [id number] [address] [place] [address] [place] HCO3 (Bld) [Moles/Vol] 22 mmol/L Normal 22-26 [facility] Comment on above: Order Comment: Speci men Type: ARTERIAL BLOOD SPECIMEN Ordering Facility: [facility] Address: [address] [place] [address] Performed By: #### A LLBG #### [facility] CLIA [id number] [address] [place] [address] [place] Hematocrit (Bld) [Volume fraction] 33.9 % Low 39.0-51.0 [facility] Comment on above: Order Comment: Speci men Type: ARTERIAL BLOOD SPECIMEN Ordering Facility: [facility] Address: [address] [place] [address] Performed By: #### A LLBG #### [facility] CLIA [id number] [address] [place] [address] [place] Hemoglobin (Bld) [Mass/Vol] 11.0 g/dL Low 13.0-17.0 [facility] Comment on above: Order Comment: Speci men Type: ARTERIAL BLOOD SPECIMEN Ordering Facility: [facility] Address: [address] [place] [address] Performed By: #### A LLBG #### [facility] CLIA [id number] [address] [place] [address] [place] Lactate [Moles/Vol] 2.2 mmol/L Normal 0.5-2.2 [facility] Comment on above: Order Comment: Speci men Type: ARTERIAL BLOOD SPECIMEN Ordering Facility: [facility] Address: [address] [place] [address] Performed By: #### A LLBG #### [facility] CLIA [id number] [address] [place] [address] [place] Methemoglobin (Bld) [Mass fraction] 0.9 % Normal 0.0-1.5 [facility] Comment on above: Order Comment: Speci men Type: ARTERIAL BLOOD SPECIMEN Ordering Facility: [facility] Address: [address] [place] [address] Performed By: #### A LLBG #### [facility] CLIA [id number] [address] [place] [address] [place] Oxygen (Bld) [Partial pressure] 169 mm Hg High 85-95 [facility] Comment on above: Order Comment: Speci men Type: ARTERIAL BLOOD SPECIMEN Ordering Facility: [facility] Address: [address] [place] [address] Performed By: #### A LLBG #### [facility] IA [id number] [address] [place] [address] [place] Oxygen adjusted to patient's actual temperature (Bld) [Partial pressure] Normal [facility] Comment on above: Order Comment: Speci men Type: ARTERIAL BLOOD SPECIMEN Ordering Facility: [facility] Address: [address] [place] [address] Performed By: #### A LLBG #### [facility] CLIA [id number] [address] [place] [address] [place] Oxyhemoglobin (BldA) [Mass fraction] 97 % Normal 95-98 [facility] Comment on above: Order Comment: Speci men Type: ARTERIAL BLOOD SPECIMEN Ordering Facility: [facility] Address: [address] [place] [address] Performed By: #### A LLBG #### [facility] IA [id number] [address] [place] [address] [place] pH (Bld) 7.34 [pH] Low 7.35-7.45 [facility] Comment on above: Order Comment: Speci men Type: ARTERIAL BLOOD SPECIMEN Ordering Facility: [facility] Address: [address] [place] [address] Performed By: #### A LLBG #### [facility] CLIA [id number] [address] [place] [address] [place] pH adjusted to patient's actual temperature (Bld) Normal [facility] Comment on above: Order Comment: Speci men Type: ARTERIAL BLOOD SPECIMEN Ordering Facility: [facility] Address: [address] [place] [address] Performed By: #### A LLBG #### [facility] CLIA [id number] [address] [place] [address] [place] Potassium [Moles/Vol] 5.9 mmol/L High 3.5-5.0 [facility] Comment on above: Order Comment: Speci men Type: ARTERIAL BLOOD SPECIMEN Ordering Facility: [facility] Address: [address] [place] [address] Performed By: #### A LLBG #### [facility] IA [id number] [address] [place] [address] [place] Sodium [Moles/Vol] 135 mmol/L Low 136-144 [facility] Comment on above: Order Comment: Speci men Type: ARTERIAL BLOOD SPECIMEN Ordering Facility: [facility] Address: [address] [place] [address] Performed By: #### A LLBG #### [facility] CLIA [id number] [address] [place] [address] [place] Base deficit (BldA) [Moles/Vol] -2 mmol/L Normal -2-0 [facility] Comment on above: Order Comment: Speci men Type: ARTERIAL BLOOD SPECIMEN Ordering Facility: [facility] Address: [address] [place] [address] Performed By: #### A LLBG #### [facility] CLIA [id number] [address] [place] [address] [place] Calcium.ionized (Bld) [Mass/Vol] 1.24 mmol/L Normal 1.08-1.30 [facility] Comment on above: Order Comment: Speci men Type: ARTERIAL BLOOD SPECIMEN Ordering Facility: [facility] Address: [address] [place] [address] Performed By: #### A LLBG #### [facility] CLIA [id number] [address] [place] [address] [place] Calcium.ionized adjusted to pH 7.4 (BldA) [Moles/Vol] 1.21 mmol/L Normal 1.08-1.30 [facility] Comment on above: Order Comment: Speci men Type: ARTERIAL BLOOD SPECIMEN Ordering Facility: [facility] Address: [address] [place] [address] Performed By: #### A LLBG #### [facility] CLIA [id number] [address] [place] [address] [place] Carboxyhemoglobin (BldA) [Mass fraction] 1.5 % Normal 0.0-2.0 [facility] Comment on above: Order Comment: Speci men Type: ARTERIAL BLOOD SPECIMEN Ordering Facility: [facility] Address: [address] [place] [address] Result Comment: Carb oxyhemoglobin Reference Range for Smokers: 2.0-8.0% Performed By: #### A LLBG #### [facility] CLIA [id number] [address] [place] [address] [place] Chloride [Moles/Vol] 103 mmol/L Normal 97-105 [facility] Comment on above: Order Comment: Speci men Type: ARTERIAL BLOOD SPECIMEN Ordering Facility: [facility] Address: [address] [place] [address] Performed By: #### A LLBG #### [facility] CLIA [id number] [address] [place] [address] [place] CO2 (Bld) [Partial pressure] 43 mm Hg Normal 36-46 [facility] Comment on above: Order Comment: Speci men Type: ARTERIAL BLOOD SPECIMEN Ordering Facility: [facility] Address: [address] [place] [address] Performed By: #### A LLBG #### [facility] CLIA [id number] [address] [place] [address] [place] CO2 adjusted to patient's actual temperature (Bld) [Partial pressure] Normal [facility] Comment on above: Order Comment: Speci men Type: ARTERIAL BLOOD SPECIMEN Ordering Facility: [facility] Address: [address] [place] [address] Performed By: #### A LLBG #### [facility] CLIA [id number] [address] [place] [address] [place] Glucose [Mass/Vol] 183 mg/dL High 60-105 [facility] Comment on above: Order Comment: Speci men Type: ARTERIAL BLOOD SPECIMEN Ordering Facility: [facility] Address: [address] [place] [address] Performed By: #### A LLBG #### [facility] CLIA [id number] [address] [place] [address] [place] HCO3 (Bld) [Moles/Vol] 23 mmol/L Normal 22-26 [facility] Comment on above: Order Comment: Speci men Type: ARTERIAL BLOOD SPECIMEN Ordering Facility: [facility] Address: [address] [place] [address] Performed By: #### A LLBG #### [facility] CLIA [id number] [address] [place] [address] [place] Hematocrit (Bld) [Volume fraction] 32.5 % Low 39.0-51.0 [facility] Comment on above: Order Comment: Speci men Type: ARTERIAL BLOOD SPECIMEN Ordering Facility: [facility] Address: [address] [place] [address] Performed By: #### A LLBG #### [facility] CLIA [id number] [address] [place] [address] [place] Hemoglobin (Bld) [Mass/Vol] 10.5 g/dL Low 13.0-17.0 [facility] Comment on above: Order Comment: Speci men Type: ARTERIAL BLOOD SPECIMEN Ordering Facility: [facility] Address: [address] [place] [address] Performed By: #### A LLBG #### [facility] CLIA [id number] [address] [place] [address] [place] Lactate [Moles/Vol] 1.8 mmol/L Normal 0.5-2.2 [facility] Comment on above: Order Comment: Speci men Type: ARTERIAL BLOOD SPECIMEN Ordering Facility: [facility] Address: [address] [place] [address] Performed By: #### A LLBG #### [facility] CLIA [id number] [address] [place] [address] [place] Methemoglobin (Bld) [Mass fraction] 0.6 % Normal 0.0-1.5 [facility] Comment on above: Order Comment: Speci men Type: ARTERIAL BLOOD SPECIMEN Ordering Facility: [facility] Address: [address] [place] [address] Performed By: #### A LLBG #### [facility] CLIA [id number] [address] [place] [address] [place] Oxygen (Bld) [Partial pressure] 168 mm Hg High 85-95 [facility] Comment on above: Order Comment: Speci men Type: ARTERIAL BLOOD SPECIMEN Ordering Facility: [facility] Address: [address] [place] [address] Performed By: #### A LLBG #### [facility] CLIA [id number] [address] [place] [address] [place] Oxygen adjusted to patient's actual temperature (Bld) [Partial pressure] Normal [facility] Comment on above: Order Comment: Speci men Type: ARTERIAL BLOOD SPECIMEN Ordering Facility: [facility] Address: [address] [place] [address] Performed By: #### A LLBG #### [facility] CLIA [id number] [address] [place] [address] [place] Oxyhemoglobin (BldA) [Mass fraction] 97 % Normal 95-98 [facility] Comment on above: Order Comment: Speci men Type: ARTERIAL BLOOD SPECIMEN Ordering Facility: [facility] Address: [address] [place] [address] Performed By: #### A LLBG #### [facility] CLIA [id number] [address] [place] [address] [place] pH (Bld) 7.35 [pH] Normal 7.35-7.45 [facility] Comment on above: Order Comment: Speci men Type: ARTERIAL BLOOD SPECIMEN Ordering Facility: [facility] Address: [address] [place] [address] Performed By: #### A LLBG #### [facility] CLIA [id number] [address] [place] [address] [place] pH adjusted to patient's actual temperature (Bld) Normal [facility] Comment on above: Order Comment: Speci men Type: ARTERIAL BLOOD SPECIMEN Ordering Facility: [facility] Address: [address] [place] [address] Performed By: #### A LLBG #### [facility] CLIA [id number] [address] [place] [address] [place] Potassium [Moles/Vol] 5.9 mmol/L High 3.5-5.0 [facility] Comment on above: Order Comment: Speci men Type: ARTERIAL BLOOD SPECIMEN Ordering Facility: [facility] Address: [address] [place] [address] Performed By: #### A LLBG #### [facility] CLIA [id number] [address] [place] [address] [place] Sodium [Moles/Vol] 135 mmol/L Low 136-144 [facility] Comment on above: Order Comment: Speci men Type: ARTERIAL BLOOD SPECIMEN Ordering Facility: [facility] Address: [address] [place] [address] Performed By: #### A LLBG #### [facility] CLIA [id number] [address] [place] [address] [place] Basic metabolic 2000 panelon 02-27-2025 Anion gap [Moles/Vol] 11 mmol/L Normal 8-15 [facility] Comment on above: Order Comment: Speci men Type: BLOOD SPECIMEN Ordering Facility: [facility] Address: [address] [place] [address] Performed By: #### 2 4321-2 #### [facility] CLIA [id number] [address] [place] [address] [place] Calcium [Mass/Vol] 8.3 mg/dL Low 8.5-10.2 [facility] Comment on above: Order Comment: Speci men Type: BLOOD SPECIMEN Ordering Facility: [facility] Address: [address] [place] [address] Performed By: #### 2 4321-2 #### [facility] CLIA [id number] [address] [place] [address] [place] Chloride [Moles/Vol] 102 mmol/L Normal 98-107 [facility] Comment on above: Order Comment: Speci men Type: BLOOD SPECIMEN Ordering Facility: [facility] Address: [address] [place] [address] Performed By: #### 2 4321-2 #### [facility] CLIA [id number] [address] [place] [address] [place] CO2 [Moles/Vol] 22 mmol/L Normal 22-30 [facility] Comment on above: Order Comment: Speci men Type: BLOOD SPECIMEN Ordering Facility: [facility] Address: [address] [place] [address] Performed By: #### 2 4321-2 #### [facility] CLIA [id number] [address] [place] [address] [place] Creatinine [Mass/Vol] 1.52 mg/dL High 0.73-1.22 [facility] Comment on above: Order Comment: Speci men Type: BLOOD SPECIMEN Ordering Facility: [facility] Address: [address] [place] [address] Performed By: #### 2 4321-2 #### [facility] CLIA [id number] [address] [place] [address] [place] Creatinine and Glomerular filtration rate.predicted panel (S/P/Bld) 50 mL/min/1.73m??? Low >=60 [facility] Comment on above: Order Comment: Speci men Type: BLOOD SPECIMEN Ordering Facility: [facility] Address: [address] [place] [address] Result Comment: Samantha mated Glomerular Filtration Rate [...] GFR. Performed By: #### 2 4321-2 #### [facility] CLIA [id number] [address] [place] [address] [place] Glucose [Mass/Vol] 178 mg/dL High 74-99 [facility] Comment on above: Order Comment: Miguelina thomas Type: BLOOD SPECIMEN Ordering Facility: [facility] Address: [address] [place] [address] Result Comment: The [place] Diabetes Association (ADA) provides guidance for cutoff [...] Standards of Medical Care in Diabetes 2016, [place] Diabetes Association. Diabetes Care. 2016.39(Suppl 1). Performed By: #### 2 4321-2 #### [facility] CLIA [id number] [place] [address] [place] Potassium [Moles/Vol] 5.4 mmol/L High 3.7-5.1 [facility] Comment on above: Order Comment: Miguelina thomas Type: BLOOD SPECIMEN Ordering Facility: [facility] Address: [address] [place] [address] Performed By: #### 2 4321-2 #### [facility] CLIA [id number] [address] [place] [address] [place] Sodium [Moles/Vol] 135 mmol/L Low 136-144 [facility] Comment on above: Order Comment: Miguelina thomas Type: BLOOD SPECIMEN Ordering Facility: [facility] Address: [address] [place] [address] Performed By: #### 2 4321-2 #### [facility] CLIA [id number] [address] [place] [address] [place] Urea nitrogen [Mass/Vol] 27 mg/dL High 9-24 [facility] Comment on above: Order Comment: Speci men Type: BLOOD SPECIMEN Ordering Facility: [facility] Address: [address] [place] [address] Performed By: #### 2 4321-2 #### [facility] CLIA [id number] [address] [place] [address] [place] CBC panel Auto (Bld)on 02-27 Erythrocyte distribution width (RBC) [Ratio] 16.7 % High 11.5-15.0 [facility] Comment on above: Order Comment: Speci men Type: BLOOD SPECIMEN Ordering Facility: [facility] Address: [address] [place] [address] Performed By: #### 5 8410-2 #### [facility] CLIA [id number] [address] [place] [address] [place] Hematocrit (Bld) [Volume fraction] 32.1 % Low 39.0-51.0 [facility] Comment on above: Order Comment: Speci men Type: BLOOD SPECIMEN Ordering Facility: [facility] Address: [address] [place] [address] Performed By: #### 5 8410-2 #### [facility] CLIA [id number] [address] [place] [address] [place] Hemoglobin (Bld) [Mass/Vol] 10.3 g/dL Low 13.0-17.0 [facility] Comment on above: Order Comment: Speci men Type: BLOOD SPECIMEN Ordering Facility: [facility] Address: [address] [place] [address] Performed By: #### 5 8410-2 #### [facility] CLIA [id number] [address] [place] [address] [place] MCH (RBC) [Entitic mass] 24.7 pg Low 26.0-34.0 [facility] Comment on above: Order Comment: Speci men Type: BLOOD SPECIMEN Ordering Facility: [facility] Address: [address] [place] [address] Performed By: #### 5 8410-2 #### [facility] CLIA [id number] [address] [place] [address] [place] MCHC (RBC) [Mass/Vol] 32.1 g/dL Normal 30.5-36.0 [facility] Comment on above: Order Comment: Speci men Type: BLOOD SPECIMEN Ordering Facility: [facility] Address: [address] [place] [address] Performed By: #### 5 8410-2 #### [facility] CLIA [id number] [address] [place] [address] [place] MCV (RBC) [Entitic vol] 77.0 fL Low 80.0-100.0 [facility] Comment on above: Order Comment: Speci men Type: BLOOD SPECIMEN Ordering Facility: [facility] Address: [address] [place] [address] Performed By: #### 5 8410-2 #### [facility] CLIA [id number] [address] [place] [address] [place] Nucleated RBC (Bld) [#/Vol] 10*3/uL Normal <0.01 [facility] Comment on above: Order Comment: Speci men Type: BLOOD SPECIMEN Ordering Facility: [facility] Address: [address] [place] [address] Performed By: #### 5 8410-2 #### [facility] CLIA [id number] [address] [place] [address] [place] Platelet mean volume (Bld) [Entitic vol] 9.0 fL Normal 9.0-12.7 [facility] Comment on above: Order Comment: Speci men Type: BLOOD SPECIMEN Ordering Facility: [facility] Address: [address] [place] [address] Performed By: #### 5 8410-2 #### [facility] CLIA [id number] [address] [place], [place] [address] [place] Platelets (Bld) [#/Vol] 264 10*3/uL Normal 150-400 [facility] Comment on above: Order Comment: Speci men Type: BLOOD SPECIMEN Ordering Facility: [facility] Address: [address] [place] [address] Performed By: #### 5 8410-2 #### [facility] CLIA [id number] [address] [place] [address] [place] RBC (Bld) [#/Vol] 4.17 10*6/uL Low 4.20-6.00 [facility] Comment on above: Order Comment: Speci men Type: BLOOD SPECIMEN Ordering Facility: [facility] Address: [address] [place] [address] Performed By: #### 5 8410-2 #### [facility] CLIA [id number] [address] [place] [address] [place] WBC (Bld) [#/Vol] 13.92 10*3/uL High 3.70-11.00 [facility] Comment on above: Order Comment: Speci men Type: BLOOD SPECIMEN Ordering Facility: [facility] Address: [address] [place] [address] Performed By: #### 5 8410-2 #### [facility] CLIA [id number] [address] [place] CNDSon 02-27-2025 CNDS HNO ID: [id number] Author: BING ARVIZU MD Service: Urology Author [...] Your Medications These medications were sent to [facility] [address] [place] [address] Hours: Monday-Monday: 7am-7pm, Sat: 9am-1pm acetaminophen 325 [...] 8% Length of Stay (d) 0 -7% [facility] -6% Admissions (60d) 0 -6% Observations (365d) 0 6% Admission Provider Speciality UROLOGY 5% Memo Scale N/A I have performed the lepr-ql-xybl and relevant services for a total of >30 minutes. SIGNATURE: Tamanna Zhu APRN.CNP DATE: February 27, 2025 TIME: 12:52 PM Normal [facility] NURSING PROGon 02-27-2025 NURSING PROG HNO ID: [id number] Author: LATRICE HATHAWAY RN Service: Nursing Author Type: Registered Nurse Type: Nursing Progress Note Filed: 02/27/2025 18:39 Note Text: Transfer Note: PATIENT NAME: Skyler Le Patient Location: [place] [address]/[id number] Room: [place] [address] Patient transferred into room/unit PK312 in stable condition.[id number]. Actions taken: Oriented to unit,care and orders. murguia draining clear;yellow urine. IVF infusing patient stated had allergy to flomax. Had dizziness and back pain. Meghann Hernández added allergy. flomax not given Normal [facility] OPERATIVE NOon 02-27-2025 OPERATIVE NO HNO ID: [id number] Author: BING ARVIZU MD Service: Urology Author Type: Physician Type: Operative Report Filed: 02/27/2025 12:01 Note Text: OPERATIVE/PROCEDURE REPORT LOG ID: [id number] Surgery/Procedure Date: 02/27/2025 Incision/Procedure Start Time: 8:27 AM Incision Close/Procedure End Time: 12:20 PM Surgeon(s)/Proceduralis t(s) and Supervisor Plating And Point Assembly(s): Surgeons and Role: * Bing Arvizu MD - Primary * Dallas Bullard MD - Resident - Assisting Physician Supervisor Plating And Point Assembly: Yovany Fountain PA-C Procedure(s): 1) left robotic [...] the case. We then placed a 12-mm operational assistant port. The robot was then docked, [...] needed. The robot was undocked. The 12-mm operational assistant port was decided to be our extraction site. The operational assistant port was then extended and the [...] lymph nodes Implantable Devices: None Drains: 16 Spanish Murguia catheter Complications: None Accidental Punctures/Lacerations: None SURGEON: MD MASON Tinoco (more content not included)... Normal [facility] Pathology biopsy report Carlos (Tiss)on 02-27-2025 AP DISCLAIMER [facility] Comment on above: Order Comment: Speci men Type: TISSUE SPECIMEN Ordering Facility: [facility] Address: [address] [place] [address] Result Comment: Zahira craig Developed Test (LDT) Disclaimer: Performance characteristics of immunohistochemical, immunofluorescent, and chromogenic in-situ hybridization tests have been determined by the performing laboratory within [facility]'s [facility] Pathology and Laboratory Medicine Department ([facility], [facility], [facility], [facility], [facility], [facility], or [facility][1]) in a manner consistent with CLIA requirements. One or more of these tests may not have been cleared or approved by the FDA. [facility] is regulated under CLIA as qualified to perform high-complexity testing. These tests are used for clinical purposes. These should not be regarded as investigational or for research. Positive and negative controls stain appropriately. Performed By: #### 6 6121-5 #### [facility] CLIA [id number] [address] [place], [place] [address] [address] OF [facility] CLIA [id number] [place] [address] OF [facility] BLOCK FOR ADDITIONAL BIOMARKERS/MOLECULAR STUDIES [facility] Comment on above: Order Comment: Speci men Type: TISSUE SPECIMEN Ordering Facility: [facility] Address: [address] [place] [address] Result Comment: Carmen l metastasis: B16 Kidney primary: B6, B20 Performed By: #### 6 6121-5 #### [facility] CLIA [id number] [address] [place] [address] LABORATORY CLIA [id number] [address] [place] [address] CASE REPORT Normal [facility] Comment on above: Order Comment: Speci men Type: TISSUE SPECIMEN Ordering Facility: [facility] Address: [address] [place] [address] Result Comment: Surg [facility] Pathology Report Case: [id number] Authorizing Provider: Bing Arvizu MD Collected: 02/27/2025 11:37 AM Ordering Location: [facility] Received: 02/27/2025 12:13 PM Operating Room Pathologist: Shasta Middleton MD Specimens: A) - Lymph Node (Specify Site in Comments), para aortic lymph nodes B) - Kidney, Left, Resection, radical nephrectomy Performed By: #### 6 6121-5 #### [facility] CLIA [id number] [address] [place] [address] LABORATORY CLIA [id number] [address] [place] [address] OF [facility] CLINICAL HISTORY Normal [facility] Comment on above: Order Comment: Speci men Type: TISSUE SPECIMEN Ordering Facility: [facility] Address: [address] [place] [address] Result Comment: 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 Performed By: #### 6 6121-5 #### [facility] CLIA [id number] [address] [place] [address] LABORATORY CLIA [id number] [address] [place] [address] FINAL DIAGNOSIS Normal [facility] Comment on above: Order Comment: Speci men Type: TISSUE SPECIMEN Ordering Facility: [facility] Address: [address] [place] [address] Result Comment: A. L ymph nodes, para-aortic, [...] EDT Performed By: #### 6 6121-5 #### [facility] CLIA [id number] [address] [place] [address] LABORATORY CLIA [id number] [address] [place] [address] [place] FINAL PERFORMING LAB Normal [facility] Comment on above: Order Comment: Speci men Type: TISSUE SPECIMEN Ordering Facility: [facility] Address: [address] [place] [address] Result Comment: Diag nostic interpretation performed at: [facility], [address] [place] [address], [place] [address] CLIA# [id number] Global Compensation Director: Zack Baez MD Performed By: #### 6 6121-5 #### [facility] CLIA [id number] [address] [place] [address] LABORATORY CLIA [id number] [address] [place] [address] GROSS DESCRIPTION Normal [facility] Comment on above: Order Comment: Speci men Type: TISSUE SPECIMEN Ordering Facility: [facility] Address: [address] [place] [address] Result Comment: A. L ymph Node (Specify [...] 2025 2:55 PM Gross examination performed at [facility], [address] [place] [address] B. Kidney, Left, Resection Received in formalin [...] medullary tissue is present. Photographs are taken. Clinical Documentation Spec sections are submitted as follows: B1 ureter [...] adjacent dissecting area from superior pole B12 administrative representative cyst from superior and mid pole B13-B14 adrenal gland with disrupted and nodular areas B15-B16 hilar lymph node HI February 28, 2025 Gross examination performed at [facility] [address] [place] [address] Additional sections of mass are submitted in cassettes B17-B22. WE March 07, 2025 11:29 AM Gross examination performed at [facility], [address] [place] [address] Performed By: #### 6 6121-5 #### [facility] CLIA [id number] [address] [facility] [address] OF [facility] CLIA [id number] SYNOPTIC REPORT Normal [facility] Comment on above: Order Comment: Speci men Type: TISSUE SPECIMEN Ordering Facility: [facility] Address: [address] [place] [address] Result Comment: NIKKO EY: Nephrectomy KIDNEY: RESECTION [...] cysts Performed By: #### 6 6121-5 #### [facility] CLIA [id number] [address] [facility] DESK [id number] [place], [place] [id number] [facility] CLIA [id number] [address] TYPE + SCREENon 02-27-2025 ABO O Normal [facility] Comment on above: Order Comment: Speci men Type: BLOOD SPECIMENOrdering Facility: [facility] Address: [address] [place] [address] Performed By: #### T SCR ####[facility] [id number] [address] OF [place] Rh Nom (Bld) Positive Normal [facility] Comment on above: Order Comment: Speci men Type: BLOOD SPECIMENOrdering Facility: [facility] Address: [address] [place] [address] Performed By: #### T SCR ####[facility] [id number] [address] TYPE AND SCREEN EXPIRATION 03/02/2025 23:59 Normal [facility] Comment on above: Order Comment: Speci men Type: BLOOD SPECIMENOrdering Facility: [facility] Address: [address] [place] [address] Performed By: #### T SCR ####[facility] [id number] [address] OF [place] CNPLoren 02-10-2025 CAR[facility] Telephone (JOVI) SKYLER LE ([id number]) 1960 M Date Time Provider Department 02/10/25 [...] Encounter Status:Closed by [facility] 02[facility]10/[facility] SKYL[facility] ([id number]) 1960 M Date Time Provider Department 02/10/25 ROB ROMERO During your visit today, we recorded the following information about you: Rob Romero APRN.[facility] 02/10/2025 9:37 AM Signed I have ordered two Venofer Infusions for patient . The best location for this patient is the [facility] to have these completed. Annalee Oro RN 02/14/2025 2:49 PM Addendum I called [facility] this am at 10 am. RN notified of Venofer order. States will speak to pharmacist and nurse talent management manager and arrange patient to get Venofer Infusion.[phone] Mehul notified. Allergies As of Date: 02/10/2025 [...] Status:Closed by ROB ROMERO on 02/10/25 Normal [facility] ECG COMPLETEon 02-07-2025 ECG COMPLETE Ventricular Rate : 5 1 BPM Atrial Rate : 51 BPM P-R Interval : 136 ms QRS Duration : 86 ms Q-T Interval : 452 ms QTC Calculation(Bazett) : 416 ms Calculated P Saltese : 50 degrees Calculated R Saltese : 44 degrees Calculated T Saltese : 55 degrees SINUS BRADYCARDIA OTHERWISE NORMAL ECG Confirmed by FRANC SHIPMAN MD ([id number]) on 02/26/2025 3:20:12 PM NAME : SKYLER LE PID : [id number] : 1960 Gender : Male Race : ORD : [id number] Procedure Date : Feb 07 2025 13:03:37 Edit Date : Feb 26 2025 15:20:17 Diagnosis: SINUS BRADYCARDIA OTHERWISE NORMAL ECG Confirmed by FRANC SHIPMAN MD ([id number]) on 02/26/2025 3:20:12 PM Test Reason : Z01.818 Pre-op evaluation Location : 145 : [place] Overread By : FRANC SHIPMAN MD Edited By : FRANC SHIPMAN MD Referred By : BING ARVIZU Acquired by : am, Normal [facility] Ferritin SerPl-mCncon 2024 Ferritin [Mass/Vol] 131.0 ng/mL Normal 30.3-565.7 [facility] Comment on above: Order Comment: Speci men Type: BLOOD SPECIMENOrdering Facility: [facility] Address: [address] [place] [address] Performed By: #### 2 276-4, 28879-3 ####[facility]IA [id number] [place] [address] [place] HISTORY PHYSICALon HISTORY PHYSICAL HNO ID: [id number] Author: ROB ROMERO APRN.CNP Service: ? Author Type: Nurse Practitioner Type: H&P Filed: 02/17/2025 08:06 Note Text: [facility] HISTORY AND PHYSICAL EXAMINATION SERVICE DATE: 02/07/2025 SERVICE TIME: 2:02 PM PRIMARY CARE PHYSICIAN: Jessica Davalos CNP, 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 REASON FOR VISIT: Skyler Le is a [...] 0 (ROSA M compliant with CPAP ) [id number] Score: Age: 65-74 Sex: male CHF history: No Hypertension history: Yes Stroke/TIA/thromboembol ism history: No Vascular disease history: No Diabetes history: Yes [id number] Score: 3 ARISCAT Score: Age: 51-80 Preoperative [...] OF SYST (more content not included)... Normal [facility] HbA1c (Bld)on 02-07-2025 Average glucose Estimated from glycated hemoglobin (Bld) [Mass/Vol] 108 mg/dL Normal [facility] Comment on above: Order Comment: Miguelina thomas Type: BLOOD SPECIMENOrdering Facility: [facility] Address: [address] [place] [address] Result Comment: eAG: (Estimated average glucose) is a calculated value from HgbA1c and is administrative representative of the average blood glucose level in the last 2-3 month period. Performed By: #### 5 5454-3 ####[facility] LAB[facility] [id number] [place] [address] [place] HbA1c (Bld) [Mass fraction] 5.4 % Normal 4.3-5.6 [facility] Comment on above: Order Comment: Miguelina thomas Type: BLOOD SPECIMENOrdering Facility: [facility] Address: [address] [place] [address] Result Comment: [place] Diabetes Association guidelines indicate that patients with HgbA1c in the range 5.7-6.4% are at increased risk for development of diabetes, and intervention by lifestyle modification may be beneficial. HgbA1c greater or equal to 6.5% is considered diagnostic of diabetes. Performed By: #### 5 5454-3 ####[facility]IA [id number] [place] [address] [place] [employer] binding capaci ty panelon 02-07-2025 Iron [Mass/Vol] 23 ug/dL Low 41-186 [facility] Comment on above: Order Comment: Miguelina thomas Type: BLOOD SPECIMENOrdering Facility: [facility] Address: [address] [place] [address] Performed By: #### 2 276-4, 36596-7 ####[facility] LABIA [id number] [place] [address] [place] Iron binding capacity [Mass/Vol] 247 ug/dL Normal 232-386 [facility] Comment on above: Order Comment: Miguelina men Type: BLOOD SPECIMENOrdering Facility: [facility] Address: [address] [place], [place] [address] Performed By: #### 2 276-4, 73351-1 ####[facility] [id number] [place] [id number] [place] Iron/TIBC [Molar ratio] 9.3 % Low 15.0-57.0 [facility] Comment on above: Order Comment: Speci men Type: BLOOD SPECIMENOrdering Facility: [facility] Address: [address] [place], [place] [address] Performed By: #### 2 276-4, 34367-8 ####[facility] [id number] [place] [id number] [place] BRIEF OP NOTon 01-24-2025 BRIEF OP NOT HNO ID: [id number] Author: YOVANY ESTRADA DO Service: Radiology Author Type: Physician Type: Brief Op Note Filed: 01/24/2025 11:55 Note Text: BRIEF OPERATIVE / PROCEDURE NOTE LOG ID: [id number] SURGERY/PROCEDURE DATE: 01/24/2025 INCISION/PROCEDURE START TIME: 11:39 AM INCISION CLOSE/PROCEDURE END TIME: 11:52 AM SURGEON(S)/PROCEDURALIS T(S) AND OVEN TENDER BAGELS(S): Surgeons and Role: * Yovany Estrada DO [...] January 24, 2025 TIME: 11:53 AM Normal [facility] Bacteria Ur Culton Bacteria identified Cx Nom (U) ORGANISM ID: 1 <10,000 CFU/ml Normal urogenital rudy Normal [facility] Comment on above: Performed By: #### 6 30-4 ####[facility] LABCLIA [id number] [address], [place] [address] [place] CBC W Auto Differential pane l (Bld)on 01-24-2025 Basophils (Bld) [#/Vol] 0.07 10*3/uL Normal <0.11 [facility] Comment on above: Order Comment: Speci men Type: BLOOD SPECIMENOrdering Facility: [facility] Address: [address] [place] [address] Performed By: #### 5 7021-8 ####[facility] LABCLIA [id number] [place] [address] [place] Basophils/100 WBC (Bld) 0.5 % Normal [facility] Comment on above: Order Comment: Speci men Type: BLOOD SPECIMENOrdering Facility: [facility] Address: [address] [place] [address] Performed By: #### 5 7021-8 ####[facility] LABCLIA [id number] [place] [address] [place] Differential cell count method Nom (Bld) Auto Normal [facility] Comment on above: Order Comment: Speci men Type: BLOOD SPECIMENOrdering Facility: [facility] Address: [address] [place] [address] Performed By: #### 5 7021-8 ####[facility] LABCLIA [id number] [place] [address] [place] Eosinophils (Bld) [#/Vol] 0.09 10*3/uL Normal <0.46 [facility] Comment on above: Order Comment: Speci men Type: BLOOD SPECIMENOrdering Facility: [facility] Address: [address] [place] [address] Performed By: #### 5 7021-8 ####[facility] LABCLIA [id number] [id number] [address] [place] Eosinophils/100 WBC (Bld) 0.7 % Normal [facility] Comment on above: Order Comment: Speci men Type: BLOOD SPECIMENOrdering Facility: [facility] Address: [address] [place] [address] Performed By: #### 5 7021-8 ####[facility] LABCLIA [id number] [place] [address] [place] Erythrocyte distribution width (RBC) [Ratio] 15.0 % Normal 11.5-15.0 [facility] Comment on above: Order Comment: Speci men Type: BLOOD SPECIMENOrdering Facility: [facility] Address: [address] [place] [address] Performed By: #### 5 7021-8 ####[facility] LABCLIA [id number] [place] [address] [place] Hematocrit (Bld) [Volume fraction] 35.9 % Low 39.0-51.0 [facility] Comment on above: Order Comment: Speci men Type: BLOOD SPECIMENOrdering Facility: [facility] Address: [address] [place] [address] Performed By: #### 5 7021-8 ####[facility] LABIA [id number] [place] [address] [place] Hemoglobin (Bld) [Mass/Vol] 11.1 g/dL Low 13.0-17.0 [facility] Comment on above: Order Comment: Speci men Type: BLOOD SPECIMENOrdering Facility: [facility] Address: [address] [place] [address] Performed By: #### 5 7021-8 ####[facility] LABCLIA [id number] [place] [address] [place] Immature granulocytes (Bld) [#/Vol] 0.09 10*3/uL Normal <0.10 [facility] Comment on above: Order Comment: Speci men Type: BLOOD SPECIMENOrdering Facility: [facility] Address: [address] [place] [address] Performed By: #### 5 7021-8 ####[facility] LABCLIA [id number] [place] [address] [place] [facility] Immature granulocytes/100 WBC (Bld) 0.7 % Normal [facility] Comment on above: Order Comment: Speci men Type: BLOOD SPECIMENOrdering Facility: [facility] Address: [address] [place] [address] Performed By: #### 5 7021-8 ####[facility] LABIA [id number] [place] [address] [place] Lymphocytes (Bld) [#/Vol] 1.32 10*3/uL Normal 1.00-4.00 [facility] Comment on above: Order Comment: Speci men Type: BLOOD SPECIMENOrdering Facility: [facility] Address: [address] [place] [address] Performed By: #### 5 7021-8 ####[facility] LABIA [id number] [place] [address] [place] Lymphocytes/100 WBC (Bld) 10.3 % Normal [facility] Comment on above: Order Comment: Speci men Type: BLOOD SPECIMENOrdering Facility: [facility] Address: [address] [place] [address] Performed By: #### 5 7021-8 ####[facility] LABCLIA [id number] [place] [address] [place] MCH (RBC) [Entitic mass] 24.5 pg Low 26.0-34.0 [facility] Comment on above: Order Comment: Speci men Type: BLOOD SPECIMENOrdering Facility: [facility] Address: [address] [place] [address] Performed By: #### 5 7021-8 ####[facility] LABCLIA [id number] [place] [address] [place] MCHC (RBC) [Mass/Vol] 30.9 g/dL Normal 30.5-36.0 [facility] Comment on above: Order Comment: Speci men Type: BLOOD SPECIMENOrdering Facility: [facility] Address: [address] [place] [address] Performed By: #### 5 7021-8 ####[facility] LABIA [id number] [place] [address] [place] MCV (RBC) [Entitic vol] 79.2 fL Low 80.0-100.0 [facility] Comment on above: Order Comment: Speci men Type: BLOOD SPECIMENOrdering Facility: [facility] Address: [address] [place] [address] Performed By: #### 5 7021-8 ####[facility] LABIA [id number] [place] [address] [place] Monocytes (Bld) [#/Vol] 1.09 10*3/uL High <0.87 [facility] Comment on above: Order Comment: Speci men Type: BLOOD SPECIMENOrdering Facility: [facility] Address: [address] [place] [address] Performed By: #### 5 7021-8 ####[facility] LABIA [id number] [place] [address] [place] Monocytes/100 WBC (Bld) 8.5 % Normal [facility] Comment on above: Order Comment: Speci men Type: BLOOD SPECIMENOrdering Facility: [facility] Address: [address] [place] [address] Performed By: #### 5 7021-8 ####[facility] LABCLIA [id number] [place] [id number] [place] Neutrophils (Bld) [#/Vol] 10.14 10*3/uL High 1.45-7.50 [facility] Comment on above: Order Comment: Speci men Type: BLOOD SPECIMENOrdering Facility: [facility] Address: [address] [place] [address] Performed By: #### 5 7021-8 ####[facility] LABCLIA [id number] [place] [address] [place] Neutrophils/100 WBC (Bld) 79.3 % Normal [facility] Comment on above: Order Comment: Speci men Type: BLOOD SPECIMENOrdering Facility: [facility] Address: [address] [place] [address] Performed By: #### 5 7021-8 ####[facility] LABCLIA [id number] [place] [address] [place] Nucleated RBC (Bld) [#/Vol] 10*3/uL Normal <0.01 [facility] Comment on above: Order Comment: Speci men Type: BLOOD SPECIMENOrdering Facility: [facility] Address: [address] [place] [address] Performed By: #### 5 7021-8 ####[facility] LABCLIA [id number] [place] [address] [place] Nucleated RBC/100 WBC (Bld) [Ratio] 0.0 /100 WBC Normal [facility] Comment on above: Order Comment: Speci men Type: BLOOD SPECIMENOrdering Facility: [facility] Address: [address] [place] [address] Performed By: #### 5 7021-8 ####[facility] LABCLIA [id number] [place] [id number] [place] Platelet mean volume (Bld) [Entitic vol] 9.7 fL Normal 9.0-12.7 [facility] Comment on above: Order Comment: Speci men Type: BLOOD SPECIMENOrdering Facility: [facility] Address: [address] [place] [address] Performed By: #### 5 7021-8 ####[facility] LABCLIA [id number] [place] [address] [place] Platelets (Bld) [#/Vol] 310 10*3/uL Normal 150-400 [facility] Comment on above: Order Comment: Speci men Type: BLOOD SPECIMENOrdering Facility: [facility] Address: [address] [place] [address] Performed By: #### 5 7021-8 ####[facility] LABIA [id number] [place] [address] [place] RBC (Bld) [#/Vol] 4.53 10*6/uL Normal 4.20-6.[address] [facility] Comment on above: Order Comment: Speci men Type: BLOOD SPECIMENOrdering Facility: [facility] Address: [address] [place] [address] Performed By: #### 5 7021-8 ####[facility] LABIA [id number] [place] [address] [place] WBC (Bld) [#/Vol] 12.80 10*3/uL High 3.70-11.00 [facility] Comment on above: Order Comment: Speci men Type: BLOOD SPECIMENOrdering Facility: [facility] Address: [address] [place] [address] Performed By: #### 5 7021-8 ####[facility] [id number] [place] [address] [place] CONFIRM BLOOD TYPEon 025 ABO O Normal [facility] Comment on above: Order Comment: Speci men Type: BLOOD SPECIMENOrdering Facility: [facility] Address: [address] [place] [address] Performed By: #### C ONABO ####[facility] BLOOD BANKIA [id number] [place] [address] [place] Rh Nom (Bld) Positive Normal [facility] Comment on above: Order Comment: Speci men Type: BLOOD SPECIMENOrdering Facility: [facility] Address: [address] [place] [address] Performed By: #### C ONAB ####[facility] BANKIA [id number] [place] [id number] [place] Comprehensive metabolic 2000 panelon 01-24-2025 Albumin [Mass/Vol] 3.8 g/dL Low 3.9-4.9 [facility] Comment on above: Order Comment: Speci men Type: BLOOD SPECIMENOrdering Facility: [facility] Address: [address] [place] [address] Performed By: #### 2 4323-8 ####[facility] LABCLIA [id number] [place] [address] [place] ALP [Catalytic activity/Vol] 66 U/L Normal 38-113 [facility] Comment on above: Order Comment: Speci men Type: BLOOD SPECIMENOrdering Facility: [facility] Address: [address] [place] [address] Performed By: #### 2 4323-8 ####[facility] LABCLIA [id number] [place] [address] [place] ALT [Catalytic activity/Vol] 8 U/L Low 10-54 [facility] Comment on above: Order Comment: Speci men Type: BLOOD SPECIMENOrdering Facility: [facility] Address: [address] [place] [address] Performed By: #### 2 4323-8 ####[facility] LABCLIA [id number] [place] [id number] [place] Anion gap [Moles/Vol] 11 mmol/L Normal 8-15 [facility] Comment on above: Order Comment: Speci men Type: BLOOD SPECIMENOrdering Facility: [facility] Address: [address] [place], [place] [address] Performed By: #### 2 4323-8 ####[facility] LABCLIA [id number] [place] [id number] [place] AST [Catalytic activity/Vol] 12 U/L Low 14-40 [facility] Comment on above: Order Comment: Speci men Type: BLOOD SPECIMENOrdering Facility: [facility] Address: [address] [place] [address] Performed By: #### 2 4323-8 ####[facility] LABCLIA [id number] [place] [address] [place] Bilirubin [Mass/Vol] 0.4 mg/dL Normal 0.2-1.3 [facility] Comment on above: Order Comment: Speci men Type: BLOOD SPECIMENOrdering Facility: [facility] Address: [address] [place] [address] Performed By: #### 2 4323-8 ####[facility] LABCLIA [id number] [place] [address] [place] Calcium [Mass/Vol] 9.2 mg/dL Normal 8.5-10.2 [facility] Comment on above: Order Comment: Speci men Type: BLOOD SPECIMENOrdering Facility: [facility] Address: [address] [place] [address] Performed By: #### 2 4323-8 ####[facility] LABCLIA [id number] [place] [address] [place] Chloride [Moles/Vol] 98 mmol/L Normal 98-107 [facility] Comment on above: Order Comment: Speci men Type: BLOOD SPECIMENOrdering Facility: [facility] Address: [address] [place] [address] Performed By: #### 2 4323-8 ####[facility] LABCLIA [id number] [place] [id number] [place] CO2 [Moles/Vol] 28 mmol/L Normal 22-30 [facility] Comment on above: Order Comment: Speci men Type: BLOOD SPECIMENOrdering Facility: [facility] Address: [address] [place] [address] Performed By: #### 2 4323-8 ####[facility] [id number] [place] [id number] [place] Creatinine [Mass/Vol] 1.44 mg/dL High 0.73-1.22 [facility] Comment on above: Order Comment: Speci men Type: BLOOD SPECIMENOrdering Facility: [facility] Address: [address] [place] [address] Performed By: #### 2 4323-8 ####[facility] [id number] [place] [address] [place] Creatinine and Glomerular filtration rate.predicted panel (S/P/Bld) 54 mL/min/1.73m??? Low >=60 [facility] Comment on above: Order Comment: Speci men Type: BLOOD SPECIMENOrdering Facility: [facility] Address: [address] [place] [address] Result Comment: Samantha mated Glomerular Filtration Rate [...] actual GFR. Performed By: #### 2 4323-8 ####[facility] LABIA [id number] [place] [id number] [place] Glucose [Mass/Vol] 112 mg/dL High 74-99 [facility] Comment on above: Order Comment: Speci men Type: BLOOD SPECIMENOrdering Facility: [facility] Address: [address] [place] [address] Result Comment: The [place] [employer] (ADA) provides guidance for cutoff [...] Standards of Medical Care in Diabetes 2016, [place] [employer]. Diabetes Care. 2016.39(Suppl 1). Performed By: #### 2 4323-8 ####[facility] LABCLIA [id number] [address] [address] [place] Potassium [Moles/Vol] 4.5 mmol/L Normal 3.7-5.1 [facility] Comment on above: Order Comment: Speci men Type: BLOOD SPECIMENOrdering Facility: [facility] Address: [address] [place] [address] Performed By: #### 2 4323-8 ####[facility] LABIA [id number] [place] [id number] [place] Protein [Mass/Vol] 7.6 g/dL Normal 6.3-8.0 [facility] Comment on above: Order Comment: Ryliei men Type: BLOOD SPECIMENOrdering Facility: [facility] Address: [address] [place] [address] Performed By: #### 2 4323-8 ####[facility] LABCLIA [id number] [place] [id number] [place] Sodium [Moles/Vol] 137 mmol/L Normal 136-144 [facility] Comment on above: Order Comment: Speci men Type: BLOOD SPECIMENOrdering Facility: [facility] Address: [address] [place] [address] Performed By: #### 2 4323-8 ####[facility] LABCLIA [id number] [address] [address] [place] Urea nitrogen [Mass/Vol] 24 mg/dL Normal 9-24 [facility] Comment on above: Order Comment: Speci men Type: BLOOD SPECIMENOrdering Facility: [facility] Address: [address] [place] [address] Performed By: #### 2 4323-8 ####[facility] LABCLIA [id number] [id number] [place] [address] [place] HISTORY PHYSICALon HISTORY PHYSICAL HNO ID: [id number] Author: YOVANY ESTRADA DO Service: Radiology Author [...] January 24, 2025 TIME: 9:43 AM Normal [facility] NURSING PROGon 01-24-2025 NURSING PROG HNO ID: [id number] Author: SIA OTTO RN Service: ? Author Type: Registered Nurse Type: Nursing Progress Note Filed: 01/27/2025 08:15 Note Text: Completed post procedure phone call. Skyler is feeling well and has returned to his baseline diet and activity. Skyler denies questions or concerns related to his kidney biopsy appointment on 01/24/25 and had no surgical site concerns. Normal [facility] PT EDon 01-24-2025 PT ED HNO ID: [id number] Author: ML MATA RN Service: Radiology Author [...] RN In Department: HOSP MAIN FB36 Normal [facility] PT panel Coag (PPP)on 2024 INR Coag (PPP) [Relative time] 1.1 {INR} Normal 0.9-1.3 [facility] Comment on above: Order Comment: Speci william Type: BLOOD SPECIMENOrdering Facility: [facility] Address: [address] [place] [address] Result Comment: Leticia min K Antagonist (VKA) Therapeutic Range: INR 2 to 3 (Target INR of 2.5) Note: For patients treated with VKA drugs, such as warfarin, the [place] [employer] 2012 Guideline recommends [...] Chest 2012, 141:7S-47S Waqas RA, et al. [facility] 2017, 70: 252-289 Performed By: #### 3 4528-0, 77882-4 ####[facility] [id number] [place] [id number] [place] PT Coag (PPP) [Time] 12.1 s Normal 9.7-13.0 [facility] Comment on above: Order Comment: Speci men Type: BLOOD SPECIMENOrdering Facility: [facility] Address: [address] [place] [address] Performed By: #### 3 4528-0, 95247-4 ####[facility] [id number] [place] [id number] [place] [facility] Pathology biopsy report Carlos (Tiss)on 01-24-2025 AP DISCLAIMER Normal [facility] Comment on above: Order Comment: Speci men Type: TISSUE SPECIMENOrdering Facility: [facility] Address: [address] [place] [address] Result Comment: Zahira craig Developed Test (LDT) Disclaimer: Performance characteristics of immunohistochemical, immunofluorescent, and chromogenic in-situ hybridization tests have been determined by the performing laboratory within [facility]'s [facility] Pathology and Laboratory Medicine Department ([facility], [facility], [facility], [facility], [facility], [facility], or [facility][1]) in a manner consistent with CLIA requirements. One or more of these tests may not have been cleared or approved by the FDA. [facility] is regulated under CLIA as qualified to perform high-complexity testing. These tests are used for clinical purposes. These should not be regarded as investigational or for research. Positive and negative controls stain appropriately. Performed By: #### 6 6121-5 ####[facility] LABCLIA [id number] [place] [address] [place] CASE REPORT Normal [facility] Comment on above: Order Comment: Speci men Type: TISSUE SPECIMENOrdering Facility: [facility] Address: [address] [place] [address] Result Comment: Surg [facility] Pathology Report Case: [id number] Authorizing Provider: Bg Navas MD Collected: 01/24/2025 11:40 AM Ordering Location: [place] [address] Received: 01/24/2025 04:48 PM Pathologist: Becky Cox MD Specimen: Kidney, Mass, Left, Biopsy Performed By: #### 6 6121-5 ####[facility] LABCLIA [id number] [place] [address] [place] CLINICAL HISTORY left renal lesion Normal [facility] Comment on above: Order Comment: Speci men Type: TISSUE SPECIMENOrdering Facility: [facility] Address: [address] [place] [address] Performed By: #### 6 6121-5 ####[facility] [id number] [place] [address] [place] DIAGNOSIS COMMENT Normal [facility] Comment on above: Order Comment: Speci men Type: TISSUE SPECIMENOrdering Facility: [facility] Address: [address] [place] [address] Result Comment: Immu nohistochemical stains to aid [...] above interpretation. 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 See comment. at 1113 EDT Performed By: #### 6 6121-5 ####[facility] LABCLIA [id number] [place] [address] [place] FINAL PERFORMING LAB Normal [facility] Comment on above: Order Comment: Speci men Type: TISSUE SPECIMENOrdering Facility: [facility] Address: [address] [place] [address] Result Comment: Diag nostic interpretation performed at: [facility], [address] [place] [address] CLIA# [id number] Global Compensation Director: Zack Baez MD Performed By: #### 6 6121-5 ####[facility] LABCLIA [id number] [address] GROSS DESCRIPTION Normal [facility] Comment on above: Order Comment: Speci men Type: TISSUE SPECIMENOrdering Facility: [facility] Address: [address] [place] [address] Result Comment: Mayte mena, Mass, Left, Biopsy Received in formalin are multiple segments of cylindrical tissue aggregating to 2.0 x 0.4 x 0.1 cm, sabillon and of a soft and friable consistency. Totally submitted in one cassette. Gross examination performed at [facility], [address] [place] [address] JT 01/24/2025 5:57 PM Performed By: #### 6 6121-5 ####[facility] LABCLIA [id number] [address] [place] MICROSCOPIC DESCRIPTION Normal [facility] Comment on above: Order Comment: Speci men Type: TISSUE SPECIMENOrdering Facility: [facility] Address: [address] [place] [address] Result Comment: Slid es reveal 4 cores [...] is seen. Performed By: #### 6 6121-5 ####[facility] LABCLIA [id number] [place] [address] [place] TYPE + SCREENon 01-24-2025 ABO O Normal [facility] Comment on above: Order Comment: Speci men Type: BLOOD SPECIMENOrdering Facility: [facility] Address: [address] [place] [address] Performed By: #### T SCR ####[facility] BLOOD BANKIA [id number] [place] [address] [place] Rh Nom (Bld) Positive Normal [facility] Comment on above: Order Comment: Speci men Type: BLOOD SPECIMENOrdering Facility: [facility] Address: [address] [place] [address] Performed By: #### T SCR ####[facility] BLOOD BANKIA [id number] [place] [address] [place] TYPE AND SCREEN EXPIRATION 01/27/2025 23:59 Normal [facility] Comment on above: Order Comment: Speci men Type: BLOOD SPECIMENOrdering Facility: [facility] Address: [address] [place] [address] Performed By: #### T SCR ####[facility] BLOOD BANKIA [id number] [place] [address] [place] US BIOPSY RENALon [...] STUDIES: CT 12/14/2024 STAFF RADIOLOGIST: Dr. Estrada OVEN TENDER BAGELS(S): None. CONSENT: The risks, benefits, treatment options, [...] performed by the: attending radiologist, without an operational assistant. ANESTHESIA/SEDATION: Conscious sedation: Versed: 1.0 mg [...] LEFT RENAL MASS BIOPSY DESCRIBED. v 12.9.21 Barber Shop Operator: YANY Transcribe Date/Time: Jan 24 2025 12:25P Dictated by : YOVANY ESTRADA DO This examination was interpreted and the report reviewed and electronically signed by: YOVANY ESTRADA DO on Jan 24 2025 1:25PM EST [id number] Normal [facility] aPTT PPPon 01-24-2025 aPTT Coag (PPP) [Time] 31.6 s Normal 23.0-32.4 [facility] Comment on above: Order Comment: Speci men Type: BLOOD SPECIMENOrdering Facility: [facility] Address: [address] [place] [address] Performed By: #### 3 4528-0, 25563-2 ####[facility] LABCLIA [id number] [place] [address] [place] NURSING PROGon 01-20-2025 NURSING PROG HNO ID: [id number] Author: NICHOLE DAMON, RN Service: Radiology Author Type: Registered Nurse Type: Nursing Progress Note Filed: 01/20/2025 10:10 Note Text: Pre-procedure instructions: Contacted patient and confirmed appt. for kidney mass biopsy scheduled on 01/24/25, at [facility]. If instructions are not followed your [...] the day of your procedure at the [facility], desk J1-4. Arrival: Please bring your Photo ID and Insurance Card. A general consent may need to be signed. Arrival at 8:30am to desk J1-4 (Lab) Then proceed to desk QB-1 ([facility]) and check in for your procedure. Mail Distribution Clerk/Transportation: How will you be arriving for your procedure? Private car. You will need a responsible adult to accompany you to and from the procedure. Your public transit bus driver is required to stay with you until you are taken into the Procedure room. Recovery expectations: You can expect to be at the hospital for the majority of the day. Please do not schedule any other appointments the day of your procedure. Written instructions provided to patient via [employer] If you have any questions please call [phone] Normal [facility] CNPLoren 01-09-2025 [facility] Telephone (URR) SKYLER LE ([id number]) 1960 M Date Time Provider Department 01/09/25 [facility]ING [facility] During your visit today, we recorded [...] Encounter Status:Closed by ORQUIDEA TERRAZAS on 01/09/25 [facility] Basic metabolic 2000 panelon 01-03-2025 Anion gap [Moles/Vol] 15 mmol/L 8 - 15 mmol/L [facility] Calcium [Mass/Vol] 8.8 mg/dL 8.5 - 10. 2 mg/dL [facility] Chloride [Moles/Vol] 100 mmol/L 98 - 10 7 mmol/L [facility] CO2 [Moles/Vol] 23 mmol/L 22 - 30 mmol/L [facility] Creatinine [Mass/Vol] 1.46 mg/dL High 0.73 - 1.22 mg/dL [facility] GFR/1.73 sq M.predicted among non-blacks MDRD (S/P/Bld) [Vol rate/Area] 53 mL/min/{1.73_m2} Low - PINF [facility] Comment on above: Estimated Glomerular Filtration [...] 115 mg/dL High 74 - 99 mg/dL [facility] Comment on above: The [place] Diabete s Association (ADA) provides guidance for [...] Standards of Medical Care in Diabetes 2016, [place] Diabetes Association. Diabetes Care. 2016.39(Suppl 1). Interpretation and review of laboratory results Abnormal [facility] Potassium [Moles/Vol] 4 mmol/L 3.7 - 5.1 mmol/L [facility] Sodium [Moles/Vol] 138 mmol/L 136 - 144 mmol/L [facility] Urea nitrogen [Mass/Vol] 18 mg/dL 9 - 24 mg/dL [facility] Anion gap [Moles/Vol] 15 mmol/L Normal 8-15 [facility] Comment on above: Order Comment: Miguelina thomas Type: BLOOD SPECIMEN Ordering Facility: [facility] Address: [address] [place] [address] Performed By: #### 2 4321-2 #### [facility] CLIA [id number] [address] [place] [address] [place] Calcium [Mass/Vol] 8.8 mg/dL Normal 8.5-10.2 [facility] Comment on above: Order Comment: Miguelina thomas Type: BLOOD SPECIMEN Ordering Facility: [facility] Address: [address] [place] [address] Performed By: #### 2 4321-2 #### [facility] CLIA [id number] [place] [address] [place] Chloride [Moles/Vol] 100 mmol/L Normal 98-107 [facility] Comment on above: Order Comment: Speci men Type: BLOOD SPECIMEN Ordering Facility: [facility] Address: [address] [place] [address] Performed By: #### 2 4321-2 #### [facility] CLIA [id number] [address] [place] [address] [place] CO2 [Moles/Vol] 23 mmol/L Normal 22-30 [facility] Comment on above: Order Comment: Speci men Type: BLOOD SPECIMEN [facility] Facility[facility] Address: [address] [place] [address] Performed By: #### 2 4321-2 #### [facility] CLIA [id number] [address] [place] [address] [place] Creatinine [Mass/Vol] 1.46 mg/dL High 0.73-1.22 [facility] Comment on above: Order Comment: Speci men Type: BLOOD SPECIMEN [facility]ing Facility: [facility] Address: [address] [place] [address] Performed By: #### 2 4321-2 #### [facility] CLIA [id number] [address] [place] [address] [place] Creatinine and Glomerular filtration rate.predicted panel (S/P/Bld) 53 mL/min/1.73m??? Low >=60 [facility] Comment on above: Order Comment: Speci men Type: BLOOD SPECIMEN Ordering Facility: [facility] Address: [address] [place] [address] Result Comment: Samantha mated Glomerular Filtration Rate [...] GFR. Performed By: #### 2 4321-2 #### [facility] CLIA [id number] [address] [place] [address] [place] Glucose [Mass/Vol] 115 mg/dL High 74-99 [facility] Comment on above: Order Comment: Miguelina thomas Type: BLOOD SPECIMEN [facility]ing Facility: [facility] Address: [address] [place] [address] Result Comment: The [place] Diabetes Association (ADA) provides guidance for cutoff [...] Standards of Medical Care in Diabetes 2016, [place] Diabetes Association. Diabetes Care. 2016.39(Suppl 1). Performed By: #### 2 4321-2 #### [facility] CLIA [id number] [address] [place] [address] [place] Potassium [Moles/Vol] 4.0 mmol/L Normal 3.7-5.1 [facility] Comment on above: Order Comment: Miguelina thomas Type: BLOOD SPECIMEN [facility] Facility: [facility] Address: [address] [place] [address] Performed By: #### 2 4321-2 #### [facility] CLIA [id number] [address] [place] [address] [place] Sodium [Moles/Vol] 138 mmol/L Normal 136-144 [facility] Comment on above: Order Comment: Miguelina thomas Type: BLOOD SPECIMEN [facility]ing Facility: [facility] Address: [address] [place] [address] Performed By: #### 2 4321-2 #### [facility] CLIA [id number] [address] [place] [address] [place] Urea nitrogen [Mass/Vol] 18 mg/dL Normal 9-24 [facility] Comment on above: Order Comment: Miguelina thomas Type: BLOOD SPECIMEN Ordering Facility: [facility] Address: [address] [place] [address] Performed By: #### 2 4321-2 #### [facility] [id number] [address] [place] [address] OF [facility] CNOVon 01-03-2025 CNOV Office Visit (URFMOB ) LESKYLER MYLES ([id number]) 1960 M Date Time Provider Department 01/03/25 2:20 PM [facility] During your visit today, we recorded the following information about you: Pulse Blood pressure 58/minute 149/70 Bing Arvizu MD 01/03/2025 3:11 PM Signed [facility] NEW PATIENT HISTORY AND PHYSICAL [...] neck Extr (more content not included)... Normal [facility] 01-03-2025 [facility] Telephone (IRRFV) SKYLER LE ([id number]) 1960 M Date Time Provider Department 01/03/25 BING ARVIZU [facility] During your visit today, we recorded the following information about you: Mercy Walker 01/03/2025 3:48 PM Signed RADIOLOGY CALL CENTER INTAKE DATE: 01/03/2025 TIME: 3:46pm REQUESTING STAFF: Bing Arvizu MD PHONE/PAGER: [phone] SPECIFICS OF THE REQUEST: Renal Biopsy SPECIAL REQUESTS: TISSUE SAMPLE, LABWORK: N/A IS THIS REQUEST PART OF A RESEARCH PROTOCOL: No MEDICAL DIAGNOSIS: Neoplasm of uncertain behavior of left kidney TYPE AND DATE OF THE EXAM THAT IS THE BASIS OF THE REQUEST: CT Date: 12/14/2024 IMAGING: OUTSIDE [facility] Films: Where is study now: in patient's chart Note to all persons requesting biopsies: All biopsy requests will be scheduled as quickly as possible, based on the clinical urgency, availability of appointment times, the need to hold anti-thrombolytic therapy (aspirin, blood thinners) and the patient?s schedule, including the need for an available public transit bus driver. If a percutaneous biopsy or drainage [...] this procedure: intermediate-high risk. Reference from [facility] [employer] Mechanic: https://[facility].policyuGift. com/dotNet/documents/?d adpt=58152 STAFF SIGNATURE: Rivas Santana MD DATE: January [...] Known Allergies) Date Reviewed: 01/03/2025 Reviewed by: aDrrell Justin RN - Fully Assessed Reason for Visit: REnal Biopsy [Other] Primary Visit Diagnosis:Renal mass, left [N28.89] Problem List As Of Date: 01/03/2025 (None) Encounter Status:Closed by JAMAR CARLTON on 01/06/25 [facility] Ambulatory Visit Summaryon 0 12-20-2024 Ambulatory [...] [facility] [address] , [place] [address]- Someone Will Contact You Regarding These Appointments [facility] External Ambulatory Referral, Service not offered at [facility], Urology, [facility], 12/20/24 8:54:00 EDT, Renal mass Medications What How Much When Instructions New dutasteride (dutasteride 0.5 mg Cap) 1 Capsules By Mouth Every day Duration: 30 Days Refills: 11 Pickup at [facility] #11055 Unchanged allopurinol (allopurinol 300 mg Tab) By [...] physician if questions or concerns Pharmacy Information [facility] #[id number]: [address] [place], [place] [id number] [phone] Allergies No Known Medication Allergies Problems Ongoing [...] including vitamins, herbs, eye drops, creams, and jxdi-aul-gifratk medicines. ??? Any problems you or family [...] for HG. CT AP w/wo con 12/14/24 [facility] - A 6.9 x 6.3 x [...] immediate management. Unable to view image through [facility] portal, cannot assess if he would [...] to lap robotic surgeon -Retrieve image from [facility] 2. BPH with obstruction/lower urinary tract [...] (K59.00: Constipation, unspecified) Has started taking fiber. [place] flomax helped with his constipation. Educated pt on bladder/bowel regimen. -Aggressive bowel management Follow-up With When Contact Information KARLA JAMES, Nikolai Berry, URL [facility] [address], [place] [address]- Additional Instructions: f/u pending referral to surgeon [...] with obst (more content not included)... Normal [facility] Comment on above: Result Comment: Elec tronically Signed By: Nikolai ACOSTA MD\.br\Date and Time Signed: 12/20/24 08:57 EDT\.br\Electronically Co-Signed By: Janeth Huynh\.br\Date and Time Co-Signed: 12/20/24 08:52 EDT\.br\Electronically Co-Signed By: Janeth Huynh\.br\Date and Time Co-Signed: 12/20/24 08:55 EDT Jaren 11-11-2024 L --- Specimen: [id number] Received: 11/12/24 Status: ARABELLA Terry Num: [id number] Spec Type: Cytology Subm Dr: Nikolai Acosta MD Tissues: A URINECYTO (URINE) Procedures: Cyto Prepstain, PAPSTN Age/ Patient Sex Location Account Attending Physician Skyler Le 64/M LABELL [id number] Nikolai Acosta MD SPEC NUM: [id number] RECD: 11/12/24 STATUS: ARABELLA TERRY NUM: [id number] [place]: 11/11/[address]: Nikolai Acosta MD ENTERED: 11/12/[address]: SPEC TYPE: Cytology DEPT: [facility] ENTERED BY: [id number] RECV BY: [id number] ORDERED: Cyto Prepstain, PAPSTN ORDERED: Cyto Prepstain, PAPSTN Pathological Diagnosis Cystoscopy urine: Negative for high-grade urothelial carcinoma. Clinical Information Cystoscopy Gross Description Received fresh is 60 ml pale yellow clear unfixed fluid for cytology said to have been obtained as Urine. ThinPrep preparations are prepared for microscopic examination. (/ri) CPT Codes 28084 Specimen: [id number] Received: 11/12/24 Status: AURORAMalcolm Terry Num: [id number] Spec Type: Cytology Subm Dr: Nikolai Acosta MD Tissues: A URINECYTO (URINE) Procedures: Cyto Prepstain, PAPSTN Patient: Skyler Le [id number] (Continued) Signed (signature on file) Phylicia Altman MD 11/12/24 1522 Normal [facility] C Urineon 10-26-2024 Bacteria identified [...] Locations R1: This test was performed at: [facility], [address] [place] [address], [facility] , , Normal [facility] Comment on above: Performed By: #### 2 [id number] #### [facility] [address] [place] [address] Urology Office/Clinic Noteon 10-24-2024 Urology Office/Clinic Note [...] E&M of New Patient Moderate 45-59 Min 17692 Urine Culture 2. Constipation (K59.00: Constipation, unspecified) Recommended aggressive bowel management. 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 [...] 1 tab (more content not included)... Normal [facility] Comment on above: Result Comment: Elec tronically Signed By: NIRMALA MENJIVAR PA-C\.br\Date and Time Signed: 10/24/24 13:53 EST Urine Cultureon 10-08-2024 Bacteria identified Cx Nom (U) No Growth 2 Days PERFORMED BY: [facility] [address] [place] [address] PATHOLOGIST PRINTING SHOP SUPERVISOR PHYLICIA ALTMAN M.D. Normal [facility] Comment on above: Performed By: #### C UU #### [address] Urine cultureOrdered By: Suzanne Davalos on 10-08-2024 Bacteria identified Cx Nom (U) Urine culture [facility] CBC AUTO DIFFon 08-29-2022 BASO # 0.1 103/ul Normal 0.0-0.1 [facility] Comment on above: Performed By: #### C BC #### [facility] [address] [place] [address] Dr. Med Angulo Basophils/100 WBC (Bld) 0.6 % Normal 0.2-2.0 [facility] Comment on above: Performed By: #### C BC #### [facility] [address] [address] [address] Med Angulo EO # 0.2 103/ul Normal 0.0-0.7 [facility] Comment on above: Performed By: #### C BC #### [facility] [address] [address] [address] Med Angulo Eosinophils/100 WBC (Bld) 1.3 % Normal 0.9-7.0 [facility] Comment on above: Performed By: #### C BC #### [facility] [address] [address] [address] Med Angulo Erythrocyte distribution width (RBC) [Ratio] 13.8 % Normal 11.0-15.0 [facility] Comment on above: Performed By: #### C BC #### [facility] [address] [place] [address] Dr. Med Angulo Hematocrit (Bld) [Volume fraction] 40.6 % Critically low 42.0-54.0 [facility] Comment on above: Performed By: #### C BC #### [facility] [address] [address] [address] Med Angulo Hemoglobin (Bld) [Mass/Vol] 13.7 g/dL Critically low 14.0-18.0 [facility] Comment on above: Performed By: #### C BC #### [facility] [address] [place] [address] Dr. Med Angulo IG # 0.13 10e3/ul Critically high 0.00-0.03 [facility] Comment on above: Performed By: #### C BC #### [facility] [address] [place] [address] Dr. Med Angulo IG % 1.0 % Critically high 0.0-0.5 [facility] Comment on above: Performed By: #### C BC #### [facility] [address] [place] [address] Dr. Med Angulo LYMPH # 2.1 103/ul Normal 1.2-3.8 [facility] Comment on above: Performed By: #### C BC #### [facility] [address] [place] [address] Dr. Med Angulo Lymphocytes/100 WBC (Bld) 16.9 % Critically low 20.5-60.0 [facility] Comment on above: Performed By: #### C BC #### [facility] [address] [place] [address] Dr. Med Angulo MANUAL DIFF REQ NO Normal [facility] Comment on above: Performed By: #### C BC #### [facility] [address] [place] [address] Dr. Med Angulo MCH (RBC) [Entitic mass] 28.7 pg Normal 25.9-34.0 [facility] Comment on above: Performed By: #### C BC #### [facility] [address] [place] [address] Dr. Med Angulo MCHC (RBC) [Mass/Vol] 33.7 g/dL Normal 29.9-35.2 [facility] Comment on above: Performed By: #### C BC #### [facility] [id number] Med Angulo MCV (RBC) [Entitic vol] 85.1 fL Normal 80.0-94.0 [facility] Comment on above: Performed By: #### C BC #### [facility] [address] [address] [address] Med Angulo MONO # 0.8 103/ul Normal 0.3-0.8 [facility] Comment on above: Performed By: #### C BC #### [facility] [address] [address] [address] Med Angulo Monocytes/100 WBC (Bld) 6.4 % Normal 1.7-12.0 [facility] Comment on above: Performed By: #### C BC #### [facility] [address] [place] [address] Dr. Med Angulo NEUT # 9.3 103/ul Critically high 1.4-6.5 [facility] Comment on above: Performed By: #### C BC #### [facility] [address] [place] [address] Dr. Med Angulo Neutrophils/100 WBC (Bld) 73.8 % Normal 43.0-75.0 [facility] Comment on above: Performed By: #### C BC #### [facility] [address] [place], [place] [address] Dr. Med Angulo Platelet mean volume (Bld) [Entitic vol] 9.8 fL Normal 9.5-13.5 [facility] Comment on above: Performed By: #### C BC #### [facility] [address] [place] [address] Dr. Med Angulo PLT 292 103/ul Normal 150-450 [facility] Comment on above: Performed By: #### C BC #### [facility] [address] [place], [place] [id number] Dr. Med Angulo RBC 4.77 106/ul Normal 4.70-6.10 [facility] Comment on above: Performed By: #### C BC #### [facility] [address] [place] [address] Dr. Med Angulo WBC 12.6 103/ul Critically high 4.0-11.0 [facility] Comment on above: Performed By: #### C BC #### [facility] [address] [address] [address] Med Angulo GLYCOHEMOGLOBIN A1Con 2021 ADA RECOMMENDATION SEE BELOW Normal [facility] Comment on above: Result Comment: ADA RECOMMENDED LIMIT 4.0 - 6.0 ADA THERAPEUTIC TARGET < 7.0 ACTION SUGGESTED > 7.0 Performed By: #### A 1C #### [facility] [address] [address] [address] Med Angulo Glucose [Mass/Vol] 111 mg/dL Normal [facility] Comment on above: Performed By: #### A 1C #### [facility] [address] [address] [address] Med Angulo HbA1c (Bld) [Mass fraction] 5.5 % Normal 4.5-6.2 [facility] Comment on above: Performed By: #### A 1C #### [facility] [address] [address] [address] Med Angulo LIPID PROFILEon 08-29-2022 CHOL-HDL RATIO NORM SEE BELOW Normal [facility] Comment on above: Result Comment: 3.3 - 4.4 LOW RISK 4.4 - 7.1 AVERAGE RISK 7.1 - 11.0 MODERATE RISK >11.0 HIGH RISK Performed By: #### L IPID, CMP #### [facility] [address] [address] [address] Med Angulo Cholesterol [Mass/Vol] 128 mg/dL Normal <=200 [facility] Comment on above: Performed By: #### L IPID, CMP #### [facility] [address] [address] [address] Med Angulo Cholesterol in HDL [Mass/Vol] 31 mg/dL Critically low 40-60 [facility] Comment on above: Performed By: #### L IPID, CMP #### [facility] [address] [address] [address] Med Angulo Cholesterol in LDL [Mass/Vol] 43.4 mg/dL Normal [facility] Comment on above: Performed By: #### L IPID, CMP #### [facility] [address] [address] [address] Med Angulo Cholesterol.total/Cho lesterol in HDL [Mass ratio] 4.1 {ratio} Normal [facility] Comment on above: Performed By: #### L IPID, CMP #### [facility] [address] [address] [address] Med Angulo HDL NORMAL > or = 60 mg/dl - LO W CARDIOVASCULAR RISK <40 mg/dl - HIGH CARDIOVASCULAR RISK Normal [facility] Comment on above: Performed By: #### L IPID, CMP #### [facility] [address] [address] [address] Med Angulo LDL CALC NORMAL SEE BELOW Normal [facility] Comment on above: Result Comment: <100 mg/dl OPTIMAL 100 - 129 mg/dl NEAR OR ABOVE OPTIMAL 130 - 159 mg/dl BORDERLINE HIGH 160 - 189 mg/dl HIGH >190 mg/dl VERY HIGH Performed By: #### L IPID, CMP #### [facility] [address] [address] [address] Med Angulo Triglyceride [Mass/Vol] 268 mg/dL Critically high <=150 [facility] Comment on above: Performed By: #### L IPID, CMP #### [facility] [address] [address] [address] Med Angulo VLDL CALC 53.6 mg/dL Normal [facility] Comment on above: Performed By: #### L IPID, CMP #### [facility] [address] [address] [address] Med Angulo PROF 14(COMP METB)on 022 Albumin [Mass/Vol] 3.8 g/dL Normal 3.4-5.0 [facility] Comment on above: Performed By: #### L IPID, CMP #### [facility] [address] [address] [address] Med Angulo Albumin/Globulin [Mass ratio] 0.9 {ratio} Normal [facility] Comment on above: Performed By: #### L IPID, CMP #### [facility] [address] [address] [address] Med Angulo ALP [Catalytic activity/Vol] 63 U/L Normal 46-116 [facility] Comment on above: Performed By: #### L IPID, CMP #### [facility] [address] [address] [address] Med Angulo ALT [Catalytic activity/Vol] 60 U/L Normal 16-63 [facility] Comment on above: Performed By: #### L IPID, CMP #### [facility] [address] [address] [address] Med Angulo Anion gap [Moles/Vol] 12.5 mmol/L Normal [facility] Comment on above: Performed By: #### L IPID, CMP #### [facility] [address] [address] [address] Med Angulo AST [Catalytic activity/Vol] 40 U/L Critically high 15-37 [facility] Comment on above: Performed By: #### L IPID, CMP #### [facility] [address] [address] [address] Med Angulo Bilirubin [Mass/Vol] 0.5 mg/dL Normal 0.2-1.0 [facility] Comment on above: Performed By: #### L IPID, CMP #### [facility] [address] [address] [address] Med Angulo Calcium [Mass/Vol] 9.2 mg/dL Normal 8.5-10.1 [facility] Comment on above: Performed By: #### L IPID, CMP #### [facility] [address] [address] [address] Med Angulo Chloride [Moles/Vol] 99 mmol/L Normal 98-107 [facility] Comment on above: Performed By: #### L IPID, CMP #### [facility] [address] [address] [address] Med Angulo CO2 [Moles/Vol] 29.9 mmol/L Normal 21.0-32.0 [facility] Comment on above: Performed By: #### L IPID, CMP #### [facility] [address] [address] [address] Med Angulo Creatinine [Mass/Vol] 1.83 mg/dL Critically high 0.70-1.30 [facility] Comment on above: Performed By: #### L IPID, CMP #### [facility] [address] [place] [address] Dr. Med Angulo EGFR-AF SCOTTISH 46 mL/min/1.73m2 Critically low >=60 [facility] Comment on above: Performed By: #### L IPID, CMP #### [facility] [address] [place] [address] Dr. Med Angulo EGFR-NON AF SCOTTISH 38 mL/min/1.73m2 Critically low >=60 [facility] Comment on above: Performed By: #### L IPID, CMP #### [facility] [address] [place] [address] Dr. Med Angulo Globulin (S) [Mass/Vol] 4.4 g/dL Normal [facility] Comment on above: Performed By: #### L IPID, CMP #### [facility] [address] [place] [address] Dr. Med Angulo Glucose [Mass/Vol] 95 mg/dL Normal 74-106 [facility] [place] [facility] Comment on above: Performed By: #### L IPID, CMP #### [facility] [address] [place] [address] Dr. Med Angulo Potassium [Moles/Vol] 4.4 mmol/L Normal 3.5-5.1 [facility] Comment on above: Performed By: #### L IPID, CMP #### [facility] [address] [place] [address] Dr. Med Angulo Protein [Mass/Vol] 8.2 g/dL Normal 6.4-8.2 [facility] [place] [facility] Comment on above: Performed By: #### L IPID, CMP #### [facility] [address] [place] [address] Dr. Med Angulo Sodium [Moles/Vol] 137 mmol/L Normal 136-145 [facility] Comment on above: Performed By: #### L IPID, CMP #### [facility] [address] [place], [place] [address] Dr[address] Med Angulo Urea nitrogen [Mass/Vol] 26.0 mg/dL Critically high 7.0-18.0 [facility] Comment on above: Performed By: #### L IPID, CMP #### [facility] [address] [place], [place] [address] Dr[address] Med Angulo Urea nitrogen/Creatinine [Mass ratio] 14.2 mg/mg Normal [facility] Comment on above: Performed By: #### L IPID, CMP #### [facility] [address] [place] [address] [address] Med Angulo Vital Signs Date Time Vital Sign Value Performing Clinician Emmanuelle crowe 05-16-2025 09:07-0400 Body height 178 cm Ernesto Phoenix MD Work Phone: [facility] 05-16-2025 09:07-0400 Body mass index (BMI) [Ratio] 36.9 kg/m2 Ernesto Phoenix MD Work Phone: [facility] 05-16-2025 09:07-0400 Body temperature 97.2 [degF] Ernesto Phoenix MD Work Phone: [facility] 05-16-2025 09:07-0400 Body weight 116.9 kg Ernesto Phoenix MD Work Phone: [facility] 05-16-2025 09:07-0400 Diastolic blood pressure 80 mm[Hg] Ernesto Phoenix MD Work Phone: [facility] 05-16-2025 09:07-0400 Heart rate 51 /min Ernesto Phoenix MD Work Phone: [facility] 05-16-2025 09:07-0400 Respiratory rate 16 /min Ernesto Phoenix MD Work Phone: [facility] 05-16-2025 09:07-0400 SaO2% (BldA) [Mass fraction] 98 % Ernesto Phoenix MD Work Phone: [facility] 05-16-2025 09:07-0400 Systolic blood pressure 139 mm[Hg] Ernesto Phoenix MD Work Phone: [facility] 04-22-2025 15:44-0400 Body height 182.88 cm Jessica Susannah MALL MANAGER-C Work Phone: [facility] 04-22-2025 15:44-0400 Body mass index (BMI) [Ratio] 35.8 kg/m2 Jessica Susannah MALL MANAGER-C Work Phone: [facility] 04-22-2025 15:44-0400 Body weight 119.74 kg Jessica Susannah MALL MANAGER-C Work Phone: [facility] 04-22-2025 15:44-0400 Diastolic blood pressure 73 mm[Hg] Jessica Susannah MALL MANAGER-C Work Phone: [facility] 04-22-2025 15:44-0400 Heart rate 45 /min Jessica Susannah MALL MANAGER-C Work Phone: [facility] 04-22-2025 15:44-0400 Respiratory rate 16 /min Jessica Susannah MALL MANAGER-C Work Phone: [facility] 04-22-2025 15:44-0400 SaO2% (BldA) [Mass fraction] 98 % Jessica Susannah MALL MANAGER-C Work Phone: [facility] 04-22-2025 15:44-0400 Systolic blood pressure 151 mm[Hg] Jessica Susannah MALL MANAGER-C Work Phone: [facility] 04-18-2025 09:33-0400 Body height 177 cm Ernesto Phoenix MD Work Phone: [facility] Comment on above: no shoes verified by 2 04-18-2025 09:33-0400 Body mass index (BMI) [Ratio] 38.59 kg/m2 Ernesto Phoenix MD Work Phone: [facility] 04-18-2025 09:33-0400 Body temperature 97.3 [degF] Ernesto Phoenix MD Work Phone: [facility] 04-18-2025 09:33-0400 Body weight 120.9 kg Ernesto Phoenix MD Work Phone: [facility] 04-18-2025 09:33-0400 Diastolic blood pressure 58 mm[Hg] Ernesto Phoenix MD Work Phone: [facility] 04-18-2025 09:33-0400 Heart rate 52 /min Ernesto Phoenix MD Work Phone: [facility] 04-18-2025 09:33-0400 Respiratory rate 16 /min Ernesto Phoenix MD Work Phone: [facility] 04-18-2025 09:33-0400 SaO2% (BldA) [Mass fraction] 97 % Ernesto Phoenix MD Work Phone: [facility] 04-18-2025 09:33-0400 Systolic blood pressure 124 mm[Hg] Ernesto Phoenix MD Work Phone: [facility] 04-09-2025 12:55-0400 Body height 178 cm Jeannine Young MD Work Phone: [facility] 04-09-2025 12:55-0400 Body mass index (BMI) [Ratio] 38.69 kg/m2 Jeannine Young MD Work Phone: [facility] 04-09-2025 12:55-0400 Body temperature 97.2 [degF] Jeannine Young MD Work Phone: [facility] 04-09-2025 12:55-0400 Body weight 122.6 kg Jeannine Young MD Work Phone: [facility] 04-09-2025 12:55-0400 Diastolic blood pressure 53 mm[Hg] Jeannine Young MD Work Phone: [facility] 04-09-2025 12:55-0400 Heart rate 44 /min Jeannine Young MD Work Phone: [facility] Comment on above: md notified 04-09-2025 12:55-0400 Respiratory rate 20 /min Jeannine Young MD Work Phone: [facility] 04-09-2025 12:55-0400 SaO2% (BldA) [Mass fraction] 98 % Jeannine Young MD Work Phone: [facility] 04-09-2025 12:55-0400 Systolic blood pressure 123 mm[Hg] Jeannine Young MD Work Phone: [facility] 04-07-2025 13:35-0400 Body mass index (BMI) [Ratio] 36.65 kg/m2 Ernesto Phoenix MD Work Phone: [facility] 04-07-2025 13:35-0400 Body temperature 97 [degF] Ernesto Phoenix MD Work Phone: [facility] 04-07-2025 13:35-0400 Body weight 122.6 kg Ernesto Phoenix MD Work Phone: [facility] 04-07-2025 13:35-0400 Diastolic blood pressure 79 mm[Hg] Ernesto Phoenix MD Work Phone: [facility] 04-07-2025 13:35-0400 Heart rate 43 /min Ernesto Phoenix MD Work Phone: [facility] 04-07-2025 13:35-0400 Respiratory rate 18 /min Ernesto Pohenix MD Work Phone: [facility] 04-07-2025 13:35-0400 SaO2% (BldA) [Mass fraction] 99 % Ernesto Phoenix MD Work Phone: [facility] 04-07-2025 13:35-0400 Systolic blood pressure 119 mm[Hg] Ernesto Phoenix MD Work Phone: [facility] 03-18-2025 15:57-0400 Body height 182.9 cm Ernesto Phoenix MD Work Phone: [facility] 03-18-2025 15:57-0400 Body mass index (BMI) [Ratio] 36.26 kg/m2 Ernesto Phoenix MD Work Phone: [facility] 03-18-2025 15:57-0400 Body temperature 97 [degF] Ernesto Phoenix MD Work Phone: [facility] 03-18-2025 15:57-0400 Body weight 121.3 kg Ernesto Phoenix MD Work Phone: [facility] 03-18-2025 15:57-0400 Diastolic blood pressure 74 mm[Hg] Ernesto Phoenix MD Work Phone: [facility] 03-18-2025 15:57-0400 Heart rate 43 /min Ernesto Phoenix MD Work Phone: [facility] 03-18-2025 15:57-0400 Respiratory rate 16 /min Ernesto Phoenix MD Work Phone: [facility] 03-18-2025 15:57-0400 SaO2% (BldA) [Mass fraction] 100 % Ernesto Phoenix MD Work Phone: [facility] 03-18-2025 15:57-0400 Systolic blood pressure 144 mm[Hg] Ernesto Phoenix MD Work Phone: [facility] 02-27-2025 11:00-0400 SaO2% (BldA) [Mass fraction] 100 % [facility] Comment on above: Order Comment: Specimen Type: ARTERIAL B LOOD SPECIMEN Ordering Facility: [facility] Address: [address] [place], [place] [address] [address] Performed By: #### A LLBG #### [facility] [place] [id number] [id number] [facility] 02-27-2025 10:07-0400 SaO2% (BldA) [Mass fraction] 99 % [facility] Comment on above: Order Comment: Specimen Type: ARTERIAL B LOOD SPECIMEN Ordering Facility: [facility] Address: [address] [place] [address] Performed By: #### A LLBG #### [facility] [place] [id number] [place] [address] 02-27-2025 09:07-0400 SaO2% (BldA) [Mass fraction] 100 % [facility] Comment on above: Order Comment: Specimen Type: ARTERIAL B LOOD SPECIMEN Ordering Facility: [facility] Address: [address] [place] [address] Performed By: #### A LLBG #### [facility] [place] [id number] [address] [place] [address] 02-17-2025 09:13-0400 Body temperature 98.4 [degF] Chair Wily Work Phone: [facility] 02-17-2025 09:13-0400 Diastolic blood pressure 80 mm[Hg] Chair Pope Work Phone: [facility] 02-17-2025 09:13-0400 Heart rate 63 /min Chair Pope Work Phone: [facility] 02-17-2025 09:13-0400 Respiratory rate 16 /min Chair Pope Work Phone: [facility] 02-17-2025 09:13-0400 SaO2% (BldA) [Mass fraction] 98 % Chair Pope Work Phone: [facility] 02-17-2025 09:13-0400 Systolic blood pressure 136 mm[Hg] Chair Wily Work Phone: [facility] 02-07-2025 13:47-0400 Body height 182.9 cm Pacc 2 Work Phone: [facility] 02-07-2025 13:47-0400 Body mass index (BMI) [Ratio] 37.3 kg/m2 Pacc 2 Work Phone: [facility] 02-07-2025 13:47-0400 Body temperature 98.49 [degF] Pacc 2 Work Phone: [facility] 02-07-2025 13:47-0400 Body weight 124.74 kg Pacc 2 Work Phone: [facility] 02-07-2025 13:47-0400 Diastolic blood pressure 72 mm[Hg] Pacc 2 Work Phone: [facility] 02-07-2025 13:47-0400 Heart rate 48 /min Pacc 2 Work Phone: [facility] 02-07-2025 13:47-0400 Respiratory rate 16 /min Pacc 2 Work Phone: [facility] 02-07-2025 13:47-0400 SaO2% (BldA) [Mass fraction] 99 % Pacc 2 Work Phone: [facility] 02-07-2025 13:47-0400 Systolic blood pressure 144 mm[Hg] Pacc 2 Work Phone: [facility] 01-03-2025 14:37-0400 Diastolic blood pressure 70 mm[Hg] Bing Arvizu MD Work Phone: [facility] 01-03-2025 14:37-0400 Heart rate 58 /min Bing Arvizu MD Work Phone: [facility] 01-03-2025 14:37-0400 Systolic blood pressure 149 mm[Hg] Bing Arvizu MD Work Phone: [facility] 10-24-2024 08:56-0500 Blood Pressure Location NIRMALA MENJIVAR [facility] 10-24-2024 08:56-0500 Body temperature 98.6 [degF] NIRMALA MENJIVAR [facility] 10-24-2024 08:56-0500 Diastolic blood pressure 70 mm[Hg] NIRMALA MENJIVAR [facility] 10-24-2024 08:56-0500 Heart rate 75 /min NIRMALA MENJIVAR [facility] 10-24-2024 08:56-0500 Respiratory rate 16 /min NIRMALA MENJIVAR [facility] 10-24-2024 08:56-0500 Systolic blood pressure 138 mm[Hg] NIRMALA MENJIVAR [facility] Encounters Encounter Date Encounter Type Care Provider Facility Start: 09-26-2025 ambulatory Nikolai Montano ty:[facility] [place] Start: 05-20-2025 End: 05-23-2025 ambulatory Tamika Madison [facility] Work Phone: [facility] Comment on above: Free Drug Approval!! !! Start: 05-20-2025 End: 05-23-2025 E-mail encounter from caregiver Tamika DiamondRyanne [facility] Work Phone: [facility] -[facility] Start: 05-20-2025 End: 05-20-2025 Telephone encounter Tamika Nathan [facility] Work Phone: [facility] Comment on above: Medication Assistanc e Program (Lenvima free drug application approved) Start: 05-16-2025 End: 05-16-2025 Office outpatient visit 15 minutes Ernesto Phoenix MD Work Phone: Hematology/Oncology Comment on above: Renal cell carcinoma of left kidney (HCC) (Primary Dx) Start: 05-16-2025 End: 05-16-2025 ambulatory JESSICA DAVALOS Facility:[facility] Start: 05-12-2025 End: 05-12-2025 Telephone encounter Valerie Mosqueda RN Work Phone: Hematology/Oncology Comment on above: Care Coordination (M edication question) Care Coordination (M edication update) Start: 05-09-2025 End: 05-09-2025 ambulatory JESSICA DAVALOS Facility:[facility] Start: 04-22-2025 End: 04-22-2025 ambulatory Jessica Davalos MALL MANAGER-C Work Phone: [facility] Work Phone: Start: 04-22-2025 End: 04-22-2025 Patient encounter carl Urbina MD -[facility] [place] Work Phone: Start: 04-21-2025 End: [...] Start: 04-17-2025 End: 04-17-2025 ambulatory JESSICAHANK DAVALOS Facility:[facility] Start: 04-15-2025 End: 04-29-2025 Telephone encounter Ernesto Phoenix MD Work Phone: Hematology/Oncology Comment on above: Lab Orders Start: 04-11-2025 End: 04-11-2025 Social Work Myrtle Holland [facility] Hematology/Oncology Start: 04-10-2025 End: 04-14-2025 Telephone encounter Valerie Mosqueda RN Work Phone: Hematology/Oncology Comment on above: Care Coordination (T reatment plan) Medication Authoriza tion (Lenvima) Start: 04-09-2025 End: 04-09-2025 Refill Isabela De La Fuente [facility] Work Phone: [facility] Comment on above: Refill Request 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); Renal cell carcinoma of left kidney (HCC); High risk medication use; Thyroid nodule Start: 04-07-2025 End: 04-07-2025 Chart abstracting Aminata Lake RN Work Phone: Hematology/Oncology Comment on above: Research (IRB [id number] Informed Consent) Start: 04-07-2025 End: 04-09-2025 Telephone [...] Start: 04-07-2025 End: 04-07-2025 ambulatory JESSICA DAVALOS Facility:[facility] Start: 04-02-2025 End: 04-10-2025 Orders Only Tamika Madison [facility] Work Phone: Hematology/Oncology Comment on above: Release [...] 03-20-2025 End: 03-20-2025 Orders Only Tamika Madison [facility] Work Phone: Hematology/Oncology Start: 03-18-2025 End: 03-18-2025 Office outpatient new 60 minutes Ernesto Phoenix MD Work Phone: Hematology/Oncology Comment on above: Renal cell carcinoma of left kidney (HCC) (Primary Dx) Start: 03-18-2025 End: 03-19-2025 ambulatory JESSICAHANK DAVALOS Facility:[facility] Start: 03-14-2025 End: 03-14-2025 ambulatory Nikolaileonela ACOSTA Facility:[facility] Start: 03-14-2025 End: 03-14-2025 Patient encounter procedure Nikolai ACOSTA [facility] Start: 03-12-2025 End: 03-12-2025 Follow-up encounter Bing Arvizu MD Work Phone: Urology Start: 03-12-2025 End: 03-12-2025 Telephone encounter Bing Arvizu MD Work Phone: Urology Start: 03-11-2025 End: 03-11-2025 Telephone encounter Tamanna Zhu SIGNALING PROJECT ENGINEER.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 Work Phone: [facility] Start: 03-10-2025 End: 03-10-2025 Orders Only Tamanna Zajacz SIGNALING PROJECT ENGINEER.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 Work Phone: [facility] Comment on above: Hyperkalemia (Primar y Dx) Start: 03-05-2025 End: 03-05-2025 Telephone encounter Bing Arvizu MD Work Phone: Urology Comment on above: Patient Question Start: 03-04-2025 End: 03-04-2025 ambulatory JESSICA DAVALOS Facility:[facility] Start: 02-28-2025 End: 02-28-2025 Orders Only Tamanna Zajacz SIGNALING PROJECT ENGINEER.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 Work Phone: [facility] Comment on above: ODALIS (acute kidney in jury) (Primary Dx) Start: 02-27-2025 End: 02-28-2025 Evaluation and management of inpatient BING ARVIZU Facility:[facility] Start: 02-19-2025 End: 02-19-2025 ambulatory JESSICAHANK DAVALOS Facility:[facility] Start: 02-17-2025 End: 02-17-2025 ambulatory Chair Yany [...] Patient Update Start: 02-07-2025 End: 02-07-2025 ambulatory [facility] Facility:[facility] Start: 02-07-2025 End: 02-07-2025 Admission to establishment [facility] 2 Work Phone: Pre Anesthesia Start: 02-07-2025 End: 02-07-2025 Anesthesia consultation [address] [address] Work Phone: Pre Anesthesia Comment on above: Pre-op evaluation (P rimary Dx); Depression, unspecified depression type; Type 2 diabetes mellitus without complication, unspecified whether fdc insulin use (HCC); BPH with obstruction/lower urinary tract symptoms; Hypertension, unspecified type; ROSA M (obstructive sleep apnea); Class 2 obesity due to excess calories without serious comorbidity in adult, unspecified BMI Start: 02-07-2025 End: 02-07-2025 Preprocedural examination done [place] [address] Work Phone: [facility] Start: 02-07-2025 End: 02-07-2025 ambulatory JESSICA Leyla [facility] Facility:[facility] Start: 02-07-2025 Encounter for other preprocedural examination JESSICA SUSANNAH [facility] Start: 01-29-2025 End: 03-31-2025 Follow-up encounter Bing Arvizu MD Work Phone: Urology Start: 01-24-2025 End: 01-24-2025 ambulatory BING ARVIZU Facility:[facility] Start: 01-20-2025 End: 01-20-2025 Orders Only Nichole [...] Start: 11-11-2024 End: 11-11-2024 ambulatory Nikolai Acosta [facility] Work Phone: Start: 11-11-2024 End: 11-11-2024 Departed Referred Jessica Davalos MALL MANAGER-C Work Phone: [facility]-LAB Path Spec [facility] Start: 11-11-2024 End: 11-11-2024 ambulatory Nikolai ACOSTA Facility:[id number] Start: 10-24-2024 End: 10-24-2024 Lab Drop off NIRMALA MENJIVAR [facility] Start: 10-24-2024 End: 10-24-2024 ambulatory NIRMALA MENJIVAR Facility[facility] Start: 10-24-2024 End: 10-24-2024 Patient encounter procedure NIRMALA MENJIVAR [facility] Start: 10-11-2024 ambulatory NIRMALA MENJIVAR Facility :[facility] Start: 10-08-2024 End: 10-08-2024 ambulatory Jessica Orozco Susannah [facility] Work Phone: Start: 10-08-2024 End: 10-08-2024 Departed Referred Jessica Davalos MALL MANAGER-C Work Phone: [facility]-LAB Path Spec [facility] Start: 09-03-2022 Encounter for genera l adult medical examination without abnormal findings JESSICA SUSANNAH [facility] Start: 08-29-2022 End: 08-30-2022 ambulatory [...] Comment: Speci men Type: BLOOD SPECIMENOrdering Facility: [facility] Address: [address] [place] [address] Performed By: #### T SCR ####[facility] BLOOD BANKCLIA [id number] [address] Start: 01-24-2025 Antibody screen JESSICA DAVALOS Comment on above: Order Comment: Speci men Type: BLOOD SPECIMENOrdering Facility: [facility] Address: [address] [place] [address] Performed By: #### T SCR ####[facility] BLOOD BANKCLIA [id number] [address] Start: 11-11-2024 Cystoscopy Nkiolai SANDERS Start: 10-08-2024 Urine culture Jessica COSBY Work Phone: Colonoscopy NIRMALA MENJIVAR Plan of Treatment Date Care Activity Detail Author Start: 2034 RSV Vaccine (1 - 1-dose 75+ series) RSV Vaccine (1 - 1-dose 75+ series) [facility] Start: 01-04-2028 Diabetes Screening Diabetes Screening [facility] Start: 08-10-2025 Hemoglobin A1c measurement HbA1C [facility] [place] Start: 06-20-2025 End: 06-20-2025 Follow-up encounter 06/20/2025 12:30 PM EDT Visit (SP) Office Hematology/Oncology [address] [place], [place] [id number] Jeannine Young MD [address] [place], [place] [id number] follow up per pt req Hematology/Oncolo gy Comment on above: follow up per pt req Start: 06-06-2025 End: 06-06-2025 ambulatory 06/06/2025 11:15 AM EDT Results Only [facility] [address] [place] [address] [place] [address] Young [facility] Comment on above: lab for Dr Young Start: 06-04-2025 End: 09-03-2025 CBC W Auto Differential panel - Blood COMPLETE BLOOD COUNT AND DIFFERENTIAL Lab Routine Renal cell carcinoma of left kidney (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) Expected: 06/04/2025 (Approximate), Expires: 09/03/2025 [facility] Comment on above: Expected: 06/04/2025 (Approximate), Expi res: 09/03/2025 Start: 06-04-2025 End: 09-03-2025 Comprehensive metabolic 2000 panel - Serum or Plasma COMPREHENSIVE METABOLIC PANEL Lab Routine Renal cell carcinoma of left kidney (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) Expected: 06/04/2025 (Approximate), Expires: 09/03/2025 [facility] Comment on above: Expected: 06/04/2025 (Approximate), Expi res: 09/03/2025 Start: 06-04-2025 End: 09-03-2025 Thyrotropin [Units/volume] in Serum or Plasma THYROID STIMULATING HORMONE Lab Routine High risk medication use Expected: 06/04/2025 (Approximate), Expires: 09/03/2025 [facility] Comment on above: Expected: 06/04/2025 (Approximate), Expi res: 09/03/2025 Start: 06-04-2025 End: 09-03-2025 Thyroxine (T4) free [Mass/volume] in Serum or Plasma T4 FREE/FREE THYROXINE Lab Routine High risk medication use Expected: 06/04/2025 (Approximate), Expires: 09/03/2025 [facility] Comment on above: Expected: 06/04/2025 (Approximate), Expi res: 09/03/2025 Start: 06-02-2025 Influenza vaccination [facility] Start: 05-30-2025 End: 08-29-2025 CBC W Auto Differential panel - Blood COMPLETE BLOOD COUNT AND DIFFERENTIAL Lab Routine Renal cell carcinoma of left kidney (HCC) Expected: 05/30/2025 (Approximate), Expires: 08/29/2025 [facility] Work Phone: Comment on above: Expected: 05/30/2025 (Approximate), Expi res: 08/29/2025 Start: 05-30-2025 End: 08-29-2025 Comprehensive metabolic 2000 panel - Serum or Plasma COMPREHENSIVE METABOLIC PANEL Lab Routine Renal cell carcinoma of left kidney (HCC) Expected: 05/30/2025 (Approximate), Expires: 08/29/2025 [facility] Comment on above: Expected: 05/30/2025 (Approximate), Expi res: 08/29/2025 Start: 05-30-2025 End: 08-29-2025 Magnesium [Mass/volume] in Serum or Plasma MAGNESIUM Lab Routine Renal cell carcinoma of left kidney (HCC) Expected: 05/30/2025 (Approximate), Expires: 08/29/2025 [facility] Comment on above: Expected: 05/30/2025 (Approximate), Expi res: 08/29/2025 Start: 05-30-2025 End: 11-28-2025 Protein/Creatinine [Mass Ratio] in Urine PROTEIN / CREATININE RATIO Lab Routine Renal cell carcinoma of left kidney (HCC) Expected: 05/30/2025 (Approximate), Expires: 08/29/2025 [facility] Comment on above: Expected: 05/30/2025 (Approximate), Expi res: 08/29/2025 Start: 05-30-2025 End: 08-29-2025 URINALYSIS, DIPSTICK ONLY URINALYSIS, DIPSTICK ONLY Lab Routine Renal cell carcinoma of left kidney (HCC) Expected: 05/30/2025 (Approximate), Expires: 08/29/2025 [facility] Comment on above: Expected: 05/30/2025 (Approximate), Expi res: 08/29/2025 Start: 05-30-2025 End: 05-30-2025 Follow-up encounter Hematology/Oncolo gy Comment on above: 3 week lab follow up chemotx Keytruda Start: 05-30-2025 End: 05-30-2025 Patient encounter procedure 05/30/2025 9:00 AM EDT Office Visit [facility] [address] [place] [address] 3 week lab follow up chemotx Keytruda [facility] Comment on above: 3 week lab follow up chemotx Keytruda Start: 05-16-2025 End: 05-16-2025 Follow-up encounter 05/16/2025 9:20 AM EDT Visit (SP) Office Hematology/Oncology [address] [place] [address] Ernesto Phoenix MD [address] [place] [place] [address] 1 week followup with lab/ Tox check Hematology/Oncolo gy Comment on above: 1 week followup with lab/ Tox check Start: 05-16-2025 End: 05-16-2025 Patient encounter procedure 05/16/2025 9:00 AM EDT Office Visit [facility] [address] [place] [address] 1 week followup with lab/ Tox check [facility] Comment on above: 1 week followup with lab/ Tox check Start: 05-09-2025 End: 08-08-2025 CBC W Auto Differential panel - Blood COMPLETE BLOOD COUNT AND DIFFERENTIAL Lab Routine Renal cell carcinoma of left kidney (HCC) Expected: 05/09/2025 (Approximate), Expires: 08/08/2025 [facility] Comment on above: Expected: 05/09/2025 (Approximate), Expi res: 08/08/2025 Start: 05-09-2025 End: 08-08-2025 Comprehensive metabolic 2000 panel - Serum or Plasma COMPREHENSIVE METABOLIC PANEL Lab Routine Renal cell carcinoma of left kidney (HCC) Expected: 05/09/2025 (Approximate), Expires: 08/08/2025 [facility] Comment on above: Expected: 05/09/2025 (Approximate), Expi res: 08/08/2025 Start: 05-09-2025 End: 08-08-2025 Magnesium [Mass/volume] in Serum or Plasma MAGNESIUM Lab Routine Renal cell carcinoma of left kidney (HCC) Expected: 05/09/2025 (Approximate), Expires: 08/08/2025 [facility] Comment on above: Expected: 05/09/2025 (Approximate), Expi res: 08/08/2025 Start: 05-09-2025 End: 05-09-2025 Follow-up encounter Hematology/Oncolo gy Comment on above: 3 week lab follow up chemotx Keytruda Start: 05-09-2025 End: 05-09-2025 Patient encounter procedure 05/09/2025 9:00 AM EDT Office Visit [facility] [address] [place] [address] [place] [address] 3 week lab follow up chemotx Keytruda [facility] Comment on above: 3 week lab follow up chemotx Keytruda Start: 05-02-2025 End: 04-18-2026 Echocardiography ECHO Cardiology Routine Renal cell carcinoma of left kidney (HCC) Expected: 05/02/2025 (Approximate), Expires: 04/18/2026 [facility] Work Phone: Comment on above: Expected: 05/02/2025 (Approximate), Expi res: 04/18/2026 Start: 04-18-2025 End: 04-18-2025 Nursing evaluation of patient and report 04/18/2025 10:00 AM EDT Nurse Visit Hematology/Oncology [address] [place] [address] Stephan Romero, RN [address] [place] [address] Chemo Education Added This Date Per Karena Romero Phone Encounter Hematology/Oncolo gy Comment on above: Chemo Education Added This Date Per Gil Romero Phone Encounter Start: 04-18-2025 End: 04-18-2025 Follow-up encounter Hematology/Oncolo gy Comment on above: lab follow up and Opdivo lab follow up and Ke ytruda Start: 04-18-2025 End: 04-18-2025 Patient encounter procedure [facility] Comment on above: lab follow up and Opdivo lab follow up and Ke ytruda Start: 04-17-2025 End: 04-17-2025 Nutrition therapy 04/17/2025 1:30 PM EDT Education Nutrition Therapy [address] [place] [address] Yesica Calderon, RD [address] [place] [address] Renal cell carcinoma of left kidney (HCC) [C64.2] Nutrition Therapy Comment on above: Renal cell carcinoma of left kidney (HCC ) [C64.2] Start: 04-14-2025 End: 04-14-2025 Follow-up encounter Hematology/Oncolo gy Comment on above: lab follow up and Opdivo Start: 04-14-2025 End: 04-14-2025 Patient encounter procedure 04/14/2025 8:30 AM EDT Office Visit [facility] [address] [place] [address] lab follow up and Opdivo [facility] Comment on above: lab follow up and Opdivo Start: 04-07-2025 End: 07-07-2025 [facility] Work Phone: Comment on above: Expected: 04/07/2025, Expires: Start: 04-07-2025 End: 04-07-2025 Follow-up encounter Hematology/Oncolo gy Comment on above: Follow up with lab chemotx Keytruda Start: 04-07-2025 End: 04-07-2025 Patient encounter procedure 04/07/2025 1:15 PM EDT Office Visit [facility] [address] [place] [address] [place] [address] Follow up with lab chemotx Keytruda [facility] Comment on above: Follow up with lab chemotx Keytruda Start: 04-07-2025 End: 04-07-2025 Nursing evaluation of patient and report 04/07/2025 1:00 PM EDT Nurse Visit Hematology/Oncology [address] [place] [address] Valerie Mosqueda RN [address] [place] [address] Chemo Ed opdivo plus cabozantinib Hematology/Oncolo gy Comment on above: Chemo Ed opdivo plus cabozantinib Start: 04-01-2025 End: 04-17-2026 MR Brain WO contrast MRI BRAIN WO IVCON Radiology Routine Renal cell carcinoma of left kidney (HCC) Expected: 04/01/2025 (Approximate), Expires: 04/17/2026 [facility] Comment on above: Expected: 04/01/2025 (Approximate), Expi res: 04/17/2026 Start: 04-01-2025 End: 04-17-2026 PET+CT Guidance for localization of tumor of Skull base to mid-thigh-- W [id number] IV NM PET/CT SKULL-THIGH INITIAL Radiology Routine Renal cell carcinoma of left kidney (HCC) Expected: 04/01/2025, Expires: 04/17/2026 [facility] Work Phone: Comment on above: Expected: 04/01/2025, Expires: Start: 04-01-2025 End: 04-01-2025 Nursing evaluation of patient and report 04/01/2025 11:00 AM EDT Nurse Visit Hematology/Oncology [address] [place] [address] Valerie Mosqueda, RN [address] [place] [address] Chemo ed Keytruda Hematology/Oncolo gy Comment on above: Chemo ed Keytruda Start: 04-01-2025 End: 04-01-2025 Patient encounter procedure 04/01/2025 8:45 AM EDT Appointment Radiology Pet CT [address] [place] [address] Comment on above: Pet scan Start: 03-17-2025 End: 03-17-2025 ambulatory 03/17/2025 1:00 PM EDT Visit (SP) Office Hematology/Oncology [address] [place] [address] Ernesto Phoenix MD [address] [place] [address] renal cell carcinoma Hematology/Oncolo gy Comment on above: renal cell carcinoma Start: 03-10-2025 End: 06-09-2025 Renal function 2000 panel - Serum or Plasma [facility] Work Phone: Comment on above: Expected: 03/10/2025, Expires: Start: 02-28-2025 End: 05-30-2025 Renal function 2000 panel - Serum or Plasma RENAL FUNCTION PANEL Lab Routine ODALIS (acute kidney injury) Expected: 02/28/2025, Expires: 05/30/2025 [facility] Work Phone: Comment on above: Expected: 02/28/2025, Expires: Start: 02-27-2025 End: 02-27-2025 Admission to same day surgery center 02/27/2025 11:30 AM EDT - 02/27/2025 3:15 PM EDT Surgery [facility] Operating Room [address] [place] [address] Bing Arvizu MD [address] [id number] ROBOTIC LAPAROSCOPIC NEPHRECTOMY PARTIAL [facility] Operating Room Comment on above: ROBOTIC LAPAROSCOPIC NEPHRECTOMY PARTIAL Start: 02-27-2025 End: 02-27-2025 Laparoscopy surg partial nephrectomy ROBOTIC LAPAROSCOPIC NEPHRECTOMY PARTIAL Neoplasm of uncertain behavior of left kidney 02/27/2025 11:30 AM EDT [facility] Start: 02-27-2025 Subsequent hospital visit by physician 02/27/2025 11:30 AM EDT Hospital Encounter [facility] Operating Room [address] [place] [address] Bing Arvizu MD [address] [place] [address] 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] [facility] Operating Room Comment on above: Neoplasm of uncertain behavior of left k idney [D41.02] Start: 02-27-2025 End: 02-27-2025 Admission to same day surgery center 02/27/2025 7:30 AM EDT - 02/27/2025 11:15 AM EDT Surgery [facility] Operating Room [address] [place] [address] Bing Arvizu MD [address] [place] [address] ROBOTIC LAPAROSCOPIC NEPHRECTOMY PARTIAL [facility] Operating Room Comment on above: ROBOTIC LAPAROSCOPIC NEPHRECTOMY PARTIAL Start: 02-27-2025 End: 02-27-2025 Laparoscopy surg partial nephrectomy ROBOTIC LAPAROSCOPIC NEPHRECTOMY PARTIAL Neoplasm of uncertain behavior of left kidney 02/27/2025 7:30 AM EDT [facility] Start: 02-27-2025 Subsequent hospital visit by physician 02/27/2025 7:30 AM EDT Hospital Encounter [facility] Operating Room [address] [place] [address] Bing Arvizu MD [address] [place] [address] 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] [facility] Operating Room Comment on above: Neoplasm of uncertain behavior of left k idney [D41.02] Start: 02-19-2025 End: 02-19-2025 ambulatory 02/19/2025 9:00 AM EDT [facility] Hematology/Oncology [address] [place] [address] [facility] Hematology/Oncolo gy Comment on above: [facility] Start: 02-07-2025 End: 05-09-2025 Ferritin [Mass/volume] in Serum or Plasma [facility] Comment on above: Expected: 02/07/2025, Expires: Start: 02-07-2025 End: 05-09-2025 Hemoglobin A1c in Blood [facility] Comment on above: Expected: 02/07/2025, Expires: Start: 02-07-2025 End: 05-09-2025 Iron and Iron binding capacity panel - Serum or Plasma [facility] Work Phone: Comment on above: Expected: 02/07/2025, Expires: Start: 02-07-2025 End: 02-07-2025 Anesthesia consultation 02/07/2025 1:40 PM EDT PAT Pre Anesthesia [address] [place] [address] 2, Pacc Wagoner [address] [place] [address] DOS 02/27 Pre Anesthesia Comment on above: DOS 02/27 Start: 02-06-2025 Subsequent hospital visit by physician 02/06/2025 Hospital Encounter [facility] Operating Room [address] [place] [address] Bing Arvizu MD [address] [place] [address] 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] [facility] Operating Room Comment on above: Neoplasm of uncertain behavior of left k sagarney [D41.02] Start: 01-24-2025 End: 04-25-2025 CBC panel - Blood by Automated count COMPLETE BLOOD COUNT Lab STAT Renal mass, left Expected: 01/24/2025, Expires: 04/25/2025 [facility] Work Phone: Comment on above: Expected: 01/24/2025, Expires: Start: 01-24-2025 End: 04-25-2025 PT panel - Platelet poor plasma by Coagulation assay PROTHROMBIN TIME Lab STAT Renal mass, left Expected: 01/24/2025, Expires: 04/25/2025 [facility] Comment on above: Expected: 01/24/2025, Expires: Start: 01-24-2025 End: 01-24-2025 Admission to same day surgery center 01/24/2025 11:00 AM EDT - 01/24/2025 12:00 PM EDT Surgery [facility]io [address] [place] [address] Bg Navas MD [address], [address] [address] BIOPSY KIDNEY PERCUTANEOUS Ang[facility] Comment on above: BIOPSY KIDNEY PERCUTANEOUS Start: 01-24-2025 End: 01-24-2025 Renal biopsy prq trocar/needle BIOPSY KIDNEY PERCUTANEOUS Neoplasm of uncertain behavior of left kidney 01/24/2025 11:00 AM EDT ANGIO HB6 Start: 01-24-2025 Subsequent hospital visit by physician 01/24/2025 11:00 AM EDT Hospital Encounter [facility] [address] [place] [address] Bg Navas MD [address], [address] [id number] 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] [facility] Comment on above: Neoplasm of uncertain behavior of left k idney [D41.02] Start: 01-06-2025 End: 04-07-2025 CBC W Auto Differential panel - Blood COMPLETE BLOOD COUNT AND DIFFERENTIAL Lab Routine Renal mass, left Expected: 01/06/2025, Expires: 04/07/2025 [facility] Work Phone: Comment on above: Expected: 01/06/2025, Expires: Start: 01-06-2025 End: 04-07-2025 PT panel - Platelet poor plasma by Coagulation assay PROTHROMBIN TIME Lab Routine Renal mass, left Expected: 01/06/2025, Expires: 04/07/2025 [facility] Comment on above: Expected: 01/06/2025, Expires: Start: 01-03-2025 End: 04-04-2025 aPTT in Platelet poor plasma by Coagulation assay ACTIVATED PARTIAL THROMBOPLASTIN TIME Lab Routine Neoplasm of uncertain behavior of left kidney Expected: 01/03/2025, Expires: 04/04/2025 [facility] Comment on above: Expected: 01/03/2025, Expires: Start: 01-03-2025 End: 04-04-2025 Bacteria identified in Urine by Culture BACTERIAL CULTURE, URINE Microbiology Routine Neoplasm of uncertain behavior of left kidney Expected: 01/03/2025, Expires: 04/04/2025 [facility] Comment on above: Expected: 01/03/2025, Expires: Start: 01-03-2025 End: 04-04-2025 CBC W Auto Differential panel - Blood COMPLETE BLOOD COUNT AND DIFFERENTIAL Lab Routine Neoplasm of uncertain behavior of left kidney Expected: 01/03/2025, Expires: 04/04/2025 [facility] Work Phone: Comment on above: Expected: 01/03/2025, Expires: Start: 01-03-2025 End: 04-04-2025 Comprehensive metabolic 2000 panel - Serum or Plasma COMPREHENSIVE METABOLIC PANEL Lab Routine Neoplasm of uncertain behavior of left kidney Expected: 01/03/2025, Expires: 04/04/2025 [facility] Comment on above: Expected: 01/03/2025, Expires: Start: 01-03-2025 End: 04-04-2025 CONFIRM BLOOD TYPE CONFIRM BLOOD TYPE Blood Bank Routine Neoplasm of uncertain behavior of left kidney Expected: 01/03/2025, Expires: 04/04/2025 [facility] Comment on above: Expected: 01/03/2025, Expires: Start: 01-03-2025 End: 04-04-2025 PT panel - Platelet poor plasma by Coagulation assay PROTHROMBIN TIME Lab Routine Neoplasm of uncertain behavior of left kidney Expected: 01/03/2025, Expires: 04/04/2025 [facility] Comment on above: Expected: 01/03/2025, Expires: Start: 01-03-2025 End: 04-04-2025 TYPE + SCREEN TYPE + SCREEN Blood Bank Routine Neoplasm of uncertain behavior of left kidney Expected: 01/03/2025, Expires: 04/04/2025 [facility] Comment on above: Expected: 01/03/2025, Expires: Start: 12-31-2024 Covid-19 Vaccine ( season) Covid-19 Vaccine () [facility] Start: 10-08-2024 Bacteria identified in Urine by Culture Urine Culture [facility] Start: 10-08-2024 Urine culture [facility] Start: 10-02-2024 Advance Directive Discussion Advance Directive Discussion [facility] Start: 06-02-2024 Influenza vaccination Influenza Vaccine (#1) [facility] Start: 2019 RSV Vaccine (1 - Risk 60-74 years 1-dose series) RSV Vaccine (1 - Risk 60-74 years 1-dose series) [facility] Start: 2014 Prostate specific antigen measurement Prostate Cancer Screening Discussion [facility] Start: 2009 Pneumococcal Vaccine: 50+ (1 of 1 - PCV) Pneumococcal Vaccine: 50+ (1 of 1 - PCV) [facility] Start: 2009 Shingrix Vaccine (1 of 2) Shingrix Vaccine (1 of 2) [facility] Start: 01-06-2004 Prostate specific antigen measurement Prostate Cancer Screening Discussion [facility] Start: 01-06-2004 Screening for malignant neoplasm of colon [facility] Start: 1994 Lipid panel Lipid Screening [facility] Start: 1978 Pneumococcal Vaccine: 50+ (1 of 2 - PCV) Pneumococcal Vaccine: 50+ (1 of 2 - PCV) [facility] Start: 1978 Shingrix Vaccine (1 of 2) Shingrix Vaccine (1 of 2) [facility] Start: 1978 Urine microalbumin profile DTaP,Tdap,Td Vaccine (1 - Tdap) [facility] Start: 1977 Annual PCP Team Chronic Disease Visit Annual PCP Team Chronic Disease Visit [facility] Start: 1977 Anxiety Screening Anxiety Screening [facility] Start: 1977 BP Controlled (<130/80) BP Controlled (<130/80) [facility] Start: 1977 Depression Screening Depression Screening [facility] Start: 1977 Hepatitis B surface antibody level LDL Cholesterol [facility] Start: 1977 Hepatitis C screening Hepatitis C Screening [facility] Start: 1977 HIV screening HIV Screening [facility] Start: 1969 Diabetic foot examination [facility] Start: 1969 Glaucoma screening Dilated Retinal Exam [facility] Start: 1969 Hepatitis B screening Urine Albumin:Creatinine Ratio [facility] Start: 01-06-1964 Hemoglobin A1c measurement HbA1C [facility] lianne ECG COMPLETE ECG COMPLETE ECG Routine Pre-op evaluation Depression, unspecified depression type Type 2 diabetes mellitus without complication, unspecified whether intermediate designer insulin use (HCC) BPH with obstruction/lower urinary tract symptoms Hypertension, unspecified type ROSA M (obstructive sleep apnea) Class 2 obesity due to excess calories without serious comorbidity in adult, unspecified BMI Ordered: 02/07/2025 [facility] Comment on above: Ordered: 02/07/2025 End: 04-18-2026 ECG COMPLETE ECG COMPLETE ECG Routine Renal cell carcinoma of left kidney (HCC) 1 Occurrences starting 04/18/2025 until 04/18/2026 [facility] Comment on above: 1 Occurrences starting 04/18/2025 until 04/18/2026 Guidance for percuta neous biopsy of Kidney IMAGING GUIDED BIOPSY RENAL Radiology Routine Neoplasm of uncertain behavior of left kidney Ordered: 01/03/2025 [facility] Work Phone: Comment on above: Ordered: [...] (HCC) 1 Occurrences starting 04/09/2025 until 05/09/2026 [facility] Work Phone: Comment on above: 1 Occurrences starting 04/09/2025 until 05/09/2026 Renal function 2000 panel - Serum or Plasma [facility] US Kidney - bilateral [facility] End: 05-09-2026 US Thyroid gland US THYROID/PARATHYROID Radiology Routine Thyroid nodule 1 Occurrences starting 04/09/2025 until 05/09/2026 [facility] Comment on above: 1 Occurrences starting 04/09/2025 until 05/09/2026 [facility] Immunizations Immunization Date Immunization Notes Care Provider Fa cilityler 07-02-2024 SARS-CoV-2 (COVID-19 ) [id number] vaccine NIRMALA TIARA [facility] 06-29-2024 COVID-19 vaccine (NOVAVAX) Ernesto Phoenix MD Work Phone: [facility] 07-30-2022 SARS-CoV-2 (COVID-19 ) [id number] Nikolai ACOSTA [facility] 02-26-2022 SARS-CoV-2 mRNA ([id number] ose) vaccine Nikolai ACOSTA [facility] 08-29-2021 SARS-CoV-2 (COVID-19 ) mRNA BNT-162b2 vax Nikolai ACOSTA [facility] 01-21-2021 SARS-CoV-2 (COVID-19 ) mRNA BNT-162b2 vax Nikolai ACOSTA [facility] 12-31-2020 SARS-CoV-2 (COVID-19 ) mRNA BNT-162b2 vax Nikolai ACOSTA [facility] Payers Date Payer Category Payer Self-pay 2023 Private Health Insurance [id number] 2023 Unknown [id number] 1959 Unknown [id number] 1959 Unknown [id number] 1959 Unknown [id number] 1959 Unknown [id number] 1959 Unknown [id number] 1959 Unknown [id number] 1959 Unknown [id number] 1959 Unknown [id number] Unknown [facility] unable to read card [id number] Social History Date Type Detail Facility Tobacco smoking stat [facility] Unknown if ever smoked [facility] Work Phone: Start: 05-21-2013 End: 10-09-2024 Sex Male (finding) [facility] Start: 1960 Sex [address] Male [facility] Start: 10-24-2024 End: 02-07-2025 Tobacco smoking status Never smoked tobacco (finding) [facility] Start: 12-20-2024 Tobacco smoking status Never [facility] Start: 01-03-2025 End: 05-15-2025 Sex Assigned At Male [facility] Start: 01-03-2025 End: 05-15-2025 History of Social function [facility] Start: 1960 Sex assigned at Not on file [facility] Start: 02-07-2025 Tobacco use and exposure Smokeless tobacco non-user [facility] Start: 02-07-2025 End: 05-16-2025 Alcoholic beverage intake Current drinker of alcohol (finding) [facility] Start: 02-07-2025 Alcohol Comment once a year, if that [facility] Start: 03-02-2025 Gender identity Identifies as male gender (finding) [facility] Start: 03-02-2025 Sexual orientation Heterosexual (julito blakely) [facility] Sexual Orientation [facility] Functional Status Date Assessment Result Facility 02-28-2025 Are you deaf, or do you have serious difficulty hearing No 02/28/2025 3:36 PM Latrice Pike RN No [facility] 02-28-2025 Are you blind, or do you have serious difficulty seeing, even when wearing glasses No 02/28/2025 3:36 PM Latrice Pike RN No [facility] 02-28-2025 Do you have serious difficulty walking or climbing stairs No 02/28/2025 3:36 PM Latrice Pike RN No [facility] 02-28-2025 Do you have difficul ty dressing or bathing No 02/28/2025 3:36 PM Latrice Pike, JUANA No [facility] 02-28-2025 Because of a physica l, mental, or emotional condition, do you have difficulty doing errands alone such as visiting a physician's office or shopping No 02/28/2025 3:36 PM Latrice Pike RN No [facility] 10-24-2024 Functional Status N/A [facility] Mental Status Date Assessment Result Facility 02-28-2025 Because of a physica l, mental, or emotional condition, do you have serious difficulty concentrating, remembering, or making decisions No 02/28/2025 3:36 PM Latrice Pike, JUANA No [facility] Clinical Notes 10-24-2024 to 05-20-2025 Telephone Encounter - Tamika Madison [facility] - 05/20/2025 8:36 AM EDTTelephone Encounter - Tamika Madison RPh - 05/20/2025 8:36 AM EDTPatient InstructionsPatient InstructionsPatient Instructions Note Date & Type Note Facility 05-20-2025 Telephone encounter Note [facility] Patient Support fax received stating Skyler has been approved for free Lenvima until 10/01/2025. Tayo Madison PharmD, BCOP [facility] 05-20-2025 Miscellaneous Notes [facility] Patient Support fax received stating Skyler has been approved for free Lenvima until 10/01/2025. Tayo Madison PharmD, BCOP documented in this encounter [facility] 05-16-2025 Instructions Ernesto Phoenix MD - 05/16/2025 9:30 AM EDT Due for cycle 3 keytruda on 05/30/25 F/u in 2 weeks documented in this encounter [facility] 05-16-2025 History of Present illness Narrative Images from the original note were not included. PATIENT NAME: Skyler Le CLINIC NO.: [id number] ATTENDING PHYSICIAN: Ernesto Phoenix MD DATE OF SERVICE: 05/16/[address] Bing Arvizu [id number] [address] [facility] [address] thank you for referring Skyler Le for [...] unusual findings. Doing well - Works in [employer] and [employer]. - No smoking - No alcohol. - [...] Range Status 05/09/2025 8.3 % Final Abs Bullock Date Value Ref Range Status 05/09/2025 0.87 (H) <0.87 k/uL Final Abs Eosin Date Value Ref Range Status 05/09/2025 0.17 <0.46 k/uL Final Basophils % Date Value Ref Range Status 05/09/2025 0.9 % Final Abs Baso Date Value Ref Range Status 05/09/2025 0.09 <0.11 k/uL Final PATH: SURGICAL PATHOLOGY: [id number] Order: [id number] Collected 02/27/2025 11:37 AM Status: Final result [...] in [address] Bing Arvizu [id number] [facility] [address] thank you for allowing me to participate in Skyler Le care, if there are any questions or concerns please do not hesitate to contact me at the number below. I spent a total of 20 minutes on the date of the service which included preparing to see the patient, [id number] patient care, completing clinical documentation, obtaining and/or reviewing separately obtained history, performing a medically appropriate examination, counseling and educating the patient/family/caregiver, ordering medications, tests, or procedures, communicating with other HCPs (not separately reported), independently interpreting results (not separately reported), communicating results to the patient/family/caregiver, and care coordination (not separately reported). Ernesto Phoenix MD. Hematology/Medical Oncology CC Wily Freed [phone] CC: documented in this encounter [facility] 05-16-2025 Note HNO ID: [id number] Author: ERNESTO PHOENIX MD Service: ? Author Type: Physician Type: Progress Notes Filed: 05/16/2025 09:45 Note Text: PATIENT NAME: Skyler Le [facility] NO.: [id number] ATTENDING PHYSICIAN: Ernesto Phoenix MD DATE OF SERVICE: 05/16/[address] Bing Arvizu [phone] [facility] [address] thank you for referring Skyler Le for [...] unusual findings. Doing well - Works in [employer] and [employer] room. - No smoking - No alcohol. [...] turgor normal. N (more content not included)... [facility] 05-12-2025 Telephone encounter Note Pt states he notified his heel gouger of his lab results and he changed his medications. His spironolactone was d/c'd and this was changed to lasix. Pt unsure of dose at this time. Valerie Mosqueda RN [facility] Work Phone: 05-12-2025 Miscellaneous Notes Pt states he notified his heel gouger of his lab results and he changed his medications. His spironolactone was d/c'd and this was changed to lasix. Pt unsure of dose at this time. Valerie Mosqueda RN documented in this encounter [facility] 05-12-2025 Telephone encounter Note OK fine. Thank you [facility] 05-12-2025 Miscellaneous Notes OK fine. Thank you [...] Valerie Mosqueda RN documented in this encounter [facility] 05-12-2025 Telephone encounter Note Pt calls stating [...] this and verbalized understanding. Valerie Mosqueda RN [facility] Work Phone: 05-09-2025 Note HNO ID: [id number] Author: BRIGITTE SANTAMARIA RN Service: ? Author Type: Registered Nurse Type: Progress Notes Filed: 05/09/2025 11:18 Note Text: AV aware of CMP, IVF and UA ordered. Script for kayexalate sent to pharmacy. Brigitte Santamaria RN [facility] 05-09-2025 Note HNO ID: [id number] Author: ERNESTO PHOENIX MD Service: ? Author Type: Physician Type: Progress Notes Filed: 05/09/2025 11:02 Note Text: PATIENT NAME: Skyler Le CLINIC NO.: [id number] ATTENDING PHYSICIAN: Ernesto Phoenix MD DATE OF SERVICE: 05/09/[address] Bing Arvizu [address] [address] [facility] [address] thank you for referring Skyler Le for [...] unusual findings. Doing well - Works in [employer] and [employer] room. - No smoking - No alcohol. [...] discharge. Lymph Nodes: (more content not included)... [facility] 04-21-2025 Telephone encounter Note CYCLE 1/DAY 1 [...] instructed to call if unable to comply. Stehpan Romero RN [facility] Work Phone: 04-21-2025 Miscellaneous Notes CYCLE 1/DAY [...] is aware of next appointment in the [facility]: Yes. Verified patient verbalized how to [...] Stephan Romero RN documented in this encounter [facility] 04-18-2025 Note HNO ID: [id number] Author: MYRTLE HOLLAND LSW Service: ? Author Type: Acid Leveler Type: Progress Notes Filed: 04/18/2025 11:54 Note Text: SOCIAL WORK FOLLOW UP NOTE: [facility] Date of service:04/18/2025 Skyler Calvinuld is [...] TIME: 11:53 AM PAGER/CONTACT #: RUKHSANA Nicholas [facility] 04-18-2025 History of Present illness Narrative SOCIAL WORK FOLLOW UP NOTE: [facility] Date of service:04/18/2025 Skyler Le is [...] #: RUKHSANA Nicholas documented in this encounter [facility] 04-18-2025 Note HNO ID: [id number] Author: OSMANY ECHEVARRIA MA Service: ? Author Type: Financial Processing Clerk Type: Progress Notes Filed: 04/18/2025 10:53 Note Text: Patient identified by 2 identifiers. EKG performed as ordered. Osmany Echevarria MA [facility] 04-18-2025 History of Present illness Narrative Patient identified by 2 identifiers. EKG performed as ordered. Osmany Echevarria MA documented in this encounter [facility] 04-18-2025 Telephone encounter Note Patient started/will start taking Lenvatinib on 04/18/25. Stephan Romero, RN [facility] Work Phone: 04-18-2025 Miscellaneous Notes Patient started/will start taking Lenvatinib on 04/18/25. Stephan Romero RN documented in this encounter [facility] 04-18-2025 Note HNO ID: [id number] Author: STEPHAN ROMERO RN Service: ? Author [...] teaching topics as needed. Stephan Romero RN [facility] 04-18-2025 History of Present illness Narrative ORAL [...] Stephan Romero, RN documented in this encounter [facility] 04-18-2025 Instructions Ernesto Phoenix MD - 04/18/2025 9:50 AM EDT Treatment today and in 3 weeks Start lenvatinib 10mg daily Ordered EKG and 2d echo F/u in 3 weeks documented in this encounter [facility] 04-18-2025 History of Present illness Narrative Images from the original note were not included. PATIENT NAME: Skyler Le CLINIC NO.: [id number] ATTENDING PHYSICIAN: Ernesto Phoenix MD DATE OF SERVICE: 04/18/[address] Bing Arvizu [phone] [facility] [address] thank you for referring Skyler Le for [...] unusual findings. Doing well - Works in [employer] and [employer]. - No smoking - No alcohol. - [...] Range Status 04/18/2025 5.3 % Final Abs Bullock Date Value Ref Range Status 04/18/2025 0.52 <0.87 k/uL Final Abs Eosin Date Value Ref Range Status 04/18/2025 0.14 <0.46 k/uL Final Basophils % Date Value Ref Range Status 04/18/2025 0.4 % Final Abs Baso Date Value Ref Range Status 04/18/2025 0.04 <0.11 k/uL Final PATH: SURGICAL PATHOLOGY: [id number] Order: [id number] Collected 02/27/2025 11:37 AM Status: Final result [...] is 2.13 today. 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 - All his questions answered in detail - Follow-up in [address] Bing Arvizu [phone] [facility] [address] thank you for allowing me to participate in Skyler Rashaad [facility], if there are any questions or concerns please do not hesitate to contact me at the number below. I spent a total of 30 minutes on the date of the service which included preparing to see the patient, [id number] patient care, completing clinical documentation, obtaining and/or reviewing separately obtained history, performing a medically appropriate examination, counseling and educating the patient/family/caregiver, ordering medications, tests, or procedures, communicating with other HCPs (not separately reported), independently interpreting results (not separately reported), communicating results to the patient/family/caregiver, and care coordination (not separately reported). Ernesto Phoenix MD. Hematology/Medical Oncology [place] [phone] CC: documented in this encounter [facility] 04-18-2025 Note HNO ID: [id number] Author: ERNESTO PHOENIX MD Service: ? Author Type: Physician Type: Progress Notes Filed: 04/18/2025 10:33 Note Text: PATIENT NAME: [facility] NO.: [id number] ATTENDING PHYSICIAN: Ernesto Phoenix MD DATE OF SERVICE: 04/18/[address] Bing Arvizu [address] [facility] [address] thank you for referring Skyler Le for [...] unusual findings. Doing well - Works in [employer] and [employer]. - No smoking - No alcohol. - [...] Oropharynx: Lips, mucosa, (more content not included)... [facility] 04-18-2025 Note Education (LILIA) SKYLER LE ([id number]) 1960 M Date Time Provider Department 04/18/25 STEPHAN ROMERO Reason for Visit: Oral Anti-cancer Agent Education [5567] Cmt: Lenvatinib Primary Visit Diagnosis:Renal cell carcinoma [...] Encounter Status:Closed by STEPHAN ROMERO on 04/18/25 [facility] 04-17-2025 Note Education (NUTRMA) SKYLER LE ([id number]) 1960 M Date Time Provider Department 04/17/25 1:30 PM YESICA CALDERON Reason for Visit: Nutrition Assessment [1591] Primary Visit Diagnosis:Type 2 diabetes mellitus without complication, unspecified whether intermediate designer insulin use (HCC) [E11.9] Other Visit Diagnoses:Renal cell carcinoma of left kidney (HCC) [C64.2] 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 Author Type: Registered Dietitian Type: Progress Notes Filed: 05/01/2025 19:50 Note Text: [facility] Nutrition Therapy: Virtual Consult - Initial Assessment I have communicated my name and active licensure. The patient?s identity and physical location were verified at the time of this visit. Either the patient or their legal administrative representative has been informed of the risks and benefits of -- and alternatives to -- treatment through a remote evaluation and consents to proceed with the evaluation remotely. 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 The patient s identity and physical location were verified at the time of this visit. Either the patient or their legal administrative representative has been informed of the risks and benefits of -- and alternatives to -- treatment through a remote evaluation and consents to proceed with the evaluation remotely. 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 Isabella Javier MA [facility] 04-15-[address] labs for treatment on 04/18 if needed. Isabella Javier MA documented in this encounter [facility] 04-14-2025 Telephone encounter Note Scheduled patient for Chemo Education with Karena 04/18 as per message below. Deana Art [facility] 04-14-2025 Miscellaneous Notes Scheduled patient for Chemo [...] to apply for free drug through the digital marketing manager. This process could take some time. The [...] the ePA workqueue?: No Rx Plan: Other: [employer] Drug: Lenvima Cover My Meds Amaya: N/A Determination: Denied PA Denied because: Plan EXCLUSION Prior Authorization/Case #: [id number] Prior Authorization Expiration: Time to PA Submission in CMM: 15 min Time to PA Determination in CMM: 1 day Additional Information: Fax PA form to [facility] 04/09/2025 For questions relating to this submission, please contact [facility] at [phone] documented in this encounter [facility] 04-11-2025 Telephone encounter Note Clerical: Pt will need education when here on 04/18. Please add him to my schedule that day since Valerie is out. Thanks! Stephan Romero, JUANA [facility] Work Phone: 04-11-2025 Note HNO ID: [id number] Author: MYRTLE HOLLAND LSW Service: ? Author Type: Acid Leveler Type: Progress Notes Filed: 04/11/2025 15:46 Note [...] to complete a psychosocial assessment. RUKHSANA Nicholas [facility] 04-11-2025 History of Present illness Narrative SOCIAL [...] assessment. RUKHSANA Nicholas documented in this encounter [facility] 04-11-2025 Telephone encounter Note Kt, I am working on the drug repository form now. Myrtle Georges [facility] 04-11-2025 Telephone encounter Note Myrtle please work Skyler up for Repository fill of Lenvima. Thank you Tayo Madison PharmD, BCOP [facility] Work Phone: 04-11-2025 Telephone encounter Note OK to use Lenvima from our drug repository then while waiting for free drug. Thank you [facility] 04-11-2025 Telephone encounter Note We do have some Lenvima in our drug repository we could use to get him started while we apply for free drug. Anuradha JamesD, BCOP [facility] 04-11-2025 Telephone encounter Note Images from the original note were not included. [facility] 04-11-2025 Telephone encounter Note Sameer Young and Alban, The Lenvima ordered for Skyler is not covered by his insurance at all. It is a plan exclusion. There is no option for an appeal. The only option for Skyler would be to apply for free drug through the digital marketing manager. This process could take some time. The authorization for Ketyruda is still pending. His insurance plan will cover Cabometyx still, if you wish to go back to that plan. We would still need to change the immunotherapy back to Opdivo and obtain that authorization though. Please advise us on how you would like to move forward. Thank you Tayo Madison PharmD, BCOP [facility] 04-11-2025 Telephone encounter Note Follow up call placed to [facility]. Clinical Documentation Spec confirmed that they received the fax 04/10/25 for Lenvima prior authorization. Their TAT is 4-10 business days for prior authorizations. Tayo Madison PharmD, BCOP T [facility] Work Phone: 04-11-2025 Miscellaneous Notes Follow up call placed to [facility]. Clinical Documentation Spec confirmed that they received the fax 04/10/25 [...] Valerie Mosqueda RN documented in this encounter [facility] 04-10-2025 Telephone encounter Note Patient called back and confirmed RV and treatment for Wednesday 04/18. Pearl Burden [facility] 04-10-2025 Telephone encounter Note Patient is scheduled with Dr. Urbina on 04/21/25 @ 3:40. [facility] 04-10-2025 Miscellaneous Notes Patient is scheduled with Dr. Urbina on 04/21/25 @ 3:40. Called Dr Urbina officel. Their office has received this referral and will be calling patient soon to get scheduled. Deana Art Referral and records faxed to Dr. Urbina. Steve- please follow up on this, documented in this encounter [facility] 04-10-2025 Telephone encounter Note Call placed to patient, no answer. Left detailed message on VM to call back to reschedule. Tentatively rescheduled patient for Monday, 04/18 starting @ 8:15 am if he can make this appointment. Pearl Burden [facility] 04-10-2025 Telephone encounter Note PSS: can you push pt's appointments on Monday out until later in the week please. Regimen was entered by Dr Young on 04/09. Thanks Valerie Mosqueda RN [facility] Work Phone: 04-10-2025 Telephone encounter Note Keytruda has not been approved, we were advised to push treatment out until approved. The initial approval was withdrawn when the plan was changed to Opdivo, the PA team has to resubmit for Keytruda approval again. Tayo Madison, AnuradhaD, BCOP [facility] 04-10-2025 Telephone encounter Note Pharmacy: has Keytruda been approved? Please advise Valerie Mosqueda RN [facility] 04-10-2025 Telephone encounter Note We can do the keytruda infusion on Monday. We can start Lenvatinib once we get it. Thank you [facility] 04-10-2025 Telephone encounter Note Pt calls asking [...] a week? Please advise Valerie Mosqueda RN [facility] 04-10-2025 Telephone encounter Note Ambulatory Pharmacy Prior Authorization Note Provider Intervention Required?: No - Pharmacy completed on your behalf. Was the PA documented within the ePA workqueue?: No Rx Plan: Other: [employer] Drug: Lenvima Cover My Meds Amaya: N/A Determination: Denied PA Denied because: Plan EXCLUSION Prior Authorization/Case #: [id number] Prior Authorization Expiration: Time to PA Submission in CMM: 15 min Time to PA Determination in CMM: 1 day Additional Information: Fax PA form to [facility] 04/09/2025 For questions relating to this submission, please contact [facility] at [phone] [facility] 04-09-2025 Note HNO ID: [id number] Author: JEANNINE YOUNG MD Service: ? Author Type: Physician Type: Progress Notes Filed: 04/09/2025 14:13 Note Text: [facility], [place] Department of Hematology AND Medical Oncology PATIENT NAME: Skyler Le [facility] NO: [id number] ATTENDING PHYSICIAN: Jeannine Young MD DATE OF [...] carcinoma, we re (more content not included)... [facility] 04-09-2025 History of Present illness Narrative [facility] [place], [place] Department of Hematology & Medical Oncology PATIENT NAME: Skyler Le CLINIC NO: [id number] ATTENDING PHYSICIAN: Jeannine Young MD DATE OF [...] No Does patient want to see a Dental Assistant Teacher? No (yes to any of above refer patient to schedulers for dietitian appointment) ) Does patient have any new or increased numbness or tingling of extremities? No Is patient interested in fertility information? No Does patient need any prescription refills? No Does patient have an advanced directive in place? No, Patient referred to [facility] documented in this encounter [facility] 04-09-2025 Note HNO ID: [id number] Author: NIKKI BAILEY RN Service: ? Author Type: Registered Nurse Type: Progress Notes Filed: 04/09/2025 14:13 Note Text: Additional intake questions: Has the patient had fever, nausea, vomiting, diarrhea, constipation, fatigue for > 1 week? No Does the patient have a decreased appetite? No Does patient want to see a Dental Assistant Teacher? No (yes to any of above refer patient to schedulers for dietitian appointment) ) Does patient have any new or increased numbness or tingling of extremities? No Is patient interested in fertility information? No Does patient need any prescription refills? No Does patient have an advanced directive in place? No, Patient referred to [facility] Electronically Signed By: Nikki Bailey RN [facility] 04-09-2025 Telephone encounter Note Approval received. Must fill at [facility]. New script pended. Pharmacy contact # . Sent [employer] Message to patient updating him on status of medication. Appeal follow-up: Called 04/09/25 : Notified case is in clinical review and could take up to 30 business days. Informed administrative representative that was unacceptable and to please candy the case urgent. Clinical Documentation Spec marked appeal high priority. Case #[id number] [facility] Work Phone: 04-09-2025 Miscellaneous Notes Approval received. Must fill at [facility]. New script pended. Pharmacy contact # . Sent [employer] Message to patient updating him on status of medication. Appeal follow-up: Called 04/09/25 : Notified case is in clinical review and could take up to 30 business days. Informed administrative representative that was unacceptable and to please candy the case urgent. Clinical Documentation Spec marked appeal high priority. Case #[id number] Ambulatory Pharmacy Prior Authorization Note Provider Intervention Required?: No - Pharmacy completed on your behalf. Was the PA documented within the ePA workqueue?: No Rx Plan: Other: [facility] Drug: Cabometyx Cover My Meds Amaya: NA Determination: Denied PA Denied because: Step therapy requirement - Patient's insurance prefers Pembro/Lenvima first line Prior Authorization/Case #: [id number] Prior Authorization Expiration: Time to PA Submission in CMM: 30 min Time to PA Determination in CMM: 3 days Additional Information: Appeal was faxed to [facility] at (Phone #: ) For questions relating to this submission, please contact [facility] at [phone] documented in this encounter [facility] 04-09-2025 Telephone encounter Note FYI: Patient is scheduled with Dr. Young on 04/09. Pearl Burden [facility] 04-09-2025 Miscellaneous Notes FYI: Patient is scheduled with Dr. Young on 04/09. Pearl Burden Sent email to [facility] to refer patient to for second opinion. Pearl Burden documented in this encounter [facility] 04-07-2025 Note HNO ID: [id number] Author: VALERIE MOSQUEDA RN Service: ? Author [...] No 8.) Verifi (more content not included)... [facility] 04-07-2025 History of Present illness Narrative ONCOLOGY [...] Valerie Mosqueda RN documented in this encounter [facility] 04-07-2025 Telephone encounter Note Sent email to [facility] to refer patient to for second opinion. Pearl Burden [facility] 04-07-2025 Telephone encounter Note Called Dr Urbina officel. Their office has received this referral and will be calling patient soon to get scheduled. Deana Gold Pss [facility] 04-07-2025 Instructions Ernesto Phoenix MD - 04/07/2025 2:06 PM EDT Blood work today Refer to [facility] for a second opinion. Med onc with expertise. Schedule treatment next week. documented in this encounter [facility] 04-07-2025 History of Present illness Narrative Summary: IRB [id number] Informed Consent CASE [id number] (IRB [id number]): Tissue [...] Research Nurse Coordinator documented in this encounter [facility] 04-07-2025 Note HNO ID: [id number] Author: AMINATA LAKE, RN Service: ? Author Type: Registered Nurse Type: Progress Notes Filed: 04/07/2025 14:08 Note Text: Summary: IRB [id number] Informed Consent CASE [id number] (IRB [id number]): Tissue [...] Aminata Lake, MSN, RN Research Nurse Coordinator [facility] 04-07-2025 History of Present illness Narrative Images from the original note were not included. PATIENT NAME: Skyler Le CLINIC NO.: [id number] ATTENDING PHYSICIAN: Ernesto Phoenix MD DATE OF SERVICE: 04/07/[address] Bing Arvizu [address] [facility] [address] thank you for referring Skyler Le for [...] unusual findings. Doing well - Works in [employer]. - No smoking - No alcohol. - [...] Range Status 01/24/2025 8.5 % Final Abs Bullock Date Value Ref Range Status 01/24/2025 1.09 (H) <0.87 k/uL Final Abs Eosin Date Value Ref Range Status 01/24/2025 0.09 <0.46 k/uL Final Basophils % Date Value Ref Range Status 01/24/2025 0.5 % Final Abs Baso Date Value Ref Range Status 01/24/2025 0.07 <0.11 k/uL Final PATH: SURGICAL PATHOLOGY: [id number] Order: [id number] Collected 02/27/2025 11:37 AM Status: Final result [...] will do Nivo cabo. - Refer to [facility] for a second opinion. - Check CBC CMP LDH, foundation one - All his questions answered in detail - Follow-up in [address] Bing Arvizu [address] [facility] [address] thank you for allowing me to participate in Skyler Le care, if there are any questions or concerns please do not hesitate to contact me at the number below. I spent a total of 20 minutes on the date of the service which included preparing to see the patient, uzsz-kb-iovq patient care, completing clinical documentation, obtaining and/or reviewing separately obtained history, performing a medically appropriate examination, counseling and educating the patient/family/caregiver, ordering medications, tests, or procedures, communicating with other HCPs (not separately reported), independently interpreting results (not separately reported), communicating results to the patient/family/caregiver, and care coordination (not separately reported). Ernesto Phoeinx MD. Hematology/Medical Oncology [facility] [phone] CC: documented in this encounter [facility] 04-07-2025 Note HNO ID: [id number] Author: ERNESTO PHOENIX MD Service: ? Author Type: Physician Type: Progress Notes Filed: 04/07/2025 14:27 Note Text: PATIENT NAME: Skyler Le CLINIC NO.: [id number] ATTENDING PHYSICIAN: Ernesto Phoenix MD DATE OF SERVICE: 04/07/[address] Bing Arvizu [address] [address] [facility] [address] thank you for referring Skyler Le for [...] unusual findings. Doing well - Works in [employer]. - No smoking - No alcohol. - [...] 134 Chloride (mmol/L (more content not included)... [facility] 04-03-2025 Telephone encounter Note Sent letter to patient via [employer], left message for patient advising a return to work letter has been sent to his mychart Krzysztof Gil MA [facility] 04-03-2025 Miscellaneous Notes Sent letter to patient via [employer] message for patient advising a return to work letter has been sent to his mychart Krzysztof Gil MA Patient called into office requesting a release back to work letter from recent surgery with Dr. Arvizu. He is asking for release date of 04/14/2025. Patient can be reached on number listed in [employer] as home/mobile. documented in this encounter [facility] 04-02-2025 Telephone encounter Note Ambulatory Pharmacy Prior Authorization Note Provider Intervention Required?: No - Pharmacy completed on your behalf. Was the PA documented within the ePA workqueue?: No Rx Plan: Other: [facility] Drug: Cabometyx Cover My Meds Amaya: NA Determination: Denied PA Denied because: Step therapy requirement - Patient's insurance prefers Pembro/Lenvima first line Prior Authorization/Case #: [id number] Prior Authorization Expiration: Time to PA Submission in CMM: 30 min Time to PA Determination in CMM: 3 days Additional Information: Appeal was faxed to [facility] at (Phone #: ) For questions relating to this submission, please contact [facility] at [phone] [facility] 04-02-2025 Telephone encounter Note Patient called into office requesting a release back to work letter from recent surgery with Dr. Arvizu. He is asking for release date of 04/14/2025. Patient can be reached on number listed in [employer] as home/mobile. [facility] Work Phone: 04-02-2025 Telephone encounter Note Referral and records faxed to Dr. Urbina. Steve- please follow up on this, [facility] 04-01-2025 Telephone encounter Note Pt in the office today for chemo ed and does not want us to complete these FMLA forms at this time. Pt feels that he sent us the wrong forms, and will reach out to us when he sends the correct ones. Valerie Mosqueda RN [facility] Work Phone: 04-01-2025 Miscellaneous Notes Pt in the office today for chemo ed and does not want us to complete these FMLA forms at this time. Pt feels that he sent us the wrong forms, and will reach out to us when he sends the correct ones. Valerie Mosqueda RN documented in this encounter [facility] 04-01-2025 Note HNO ID: [id number] Author: VALERIE MOSQUEDA RN Service: ? Author [...] about different insurance options he has through [employer]. Pt did my chart message FMLA forms for our office to fill out. These were printed off at his visit today and pt did not want these forms filled out at this time because they are the wrong forms. Pt will let us know if he has other forms to fill out. Valerie Mosqueda RN [facility] 04-01-2025 History of Present illness Narrative ONCOLOGY [...] about different insurance options he has through [employer]. Pt did my chart message FMLA forms for our office to fill out. These were printed off at his visit today and pt did not want these forms filled out at this time because they are the wrong forms. Pt will let us know if he has other forms to fill out. Valerie Mosqueda RN Images from the original note were not included. [facility] Department of Pharmacy Oncology Pharmacy Medication [...] Travis Viveros RPh documented in this encounter [facility] 04-01-2025 Note HNO ID: [id number] Author: TRAVIS VIVEROS RPh Service: ? Author Type: Pharmacist Type: Progress Notes Filed: 04/01/2025 11:52 Note Text: [facility] Department of Pharmacy Oncology Pharmacy Medication [...] minute increments) with the patient Travis Viveros, [facility] 04-01-2025 History of Present illness Narrative [...] safety can be found using this link: [email or web address]://[email or web address]envir onmental/[email or web address]/files/Rad%20Pro tection%20-%20Diagnostic%20Nuclear %20Medicine%20Procedures.pdf SIGNATURE: SOSA Bates) PATIENT NAME: Skyler Le DATE: April 01, 2025 TIME: 9:08 AM PAGER/CONTACT #: documented in this encounter [facility] 04-01-2025 Note HNO ID: [id number] Author: STEPHAN MAYO RT(R) Service: ? Author [...] safety can be found using this link: [email or web address]://[email or web address]/envir [email or web address]/files/Rad%20Pro tection%20-% 20Diagnostic%20Nuclear%20Medicine% 20Procedures.pdf SIGNATURE: RT Paulo(R) PATIENT NAME: Skyler Le DATE: April 01, 2025 TIME: 9:08 AM PAGER/CONTACT #: [facility] 04-01-2025 Note HNO ID: [id number] Author: SYL TERESA RN Service: ? Author [...] DATE: April 01, 2025 TIME: 9:06 AM [facility] 03-28-2025 Telephone encounter Note Pt will be in for education on Monday. Please sign pending orders. Thanks Valerie Mosqueda RN [facility] 03-28-2025 Miscellaneous Notes Pt will be in for education on Monday. Please sign pending orders. Thanks Valerie Mosqueda RN documented in this encounter [facility] 03-20-2025 Telephone encounter Note Orders entered and routed in a separate encounter. Tayo Madison PharmD, BCOP [facility] Work Phone: 03-20-2025 Miscellaneous Notes Orders entered and routed in a separate encounter. Anuradha JamesD, BCOP Patient is scheduled to begin on 04/07. Pearl Burden Please load keytruda 200mg every 3 weeks and schedule it. Thank you documented in this encounter [facility] 03-20-2025 Telephone encounter Note Patient is scheduled to begin on 04/07. Pearl Burden [facility] 03-20-2025 Telephone encounter Note Please load keytruda 200mg every 3 weeks and schedule it. Thank you [facility] 03-18-2025 Instructions Ernesto Phoenix MD - 03/18/2025 4:24 PM EDT Ordered PET scan and MRI brain Refer to nephrology Chemo teach for keytruda Schedule keytruda treatment in 2 weeks F/u in 2 weeks documented in this encounter [facility] 03-18-2025 History of Present illness Narrative Images from the original note were not included. PATIENT NAME: Skyler Le CLINIC NO.: [id number] ATTENDING PHYSICIAN: Ernesto Phoenix MD DATE OF SERVICE: March Dear Dr. Bing Arvizu [address] [facility] [address] thank you for referring Skyler Le for [...] unusual findings. Doing well - Works in [employer]. - No smoking - No alcohol. - [...] Range Status 01/24/2025 8.5 % Final Abs Bullock Date Value Ref Range Status 01/24/2025 1.09 (H) <0.87 k/uL Final Abs Eosin Date Value Ref Range Status 01/24/2025 0.09 <0.46 k/uL Final Basophils % Date Value Ref Range Status 01/24/2025 0.5 % Final Abs Baso Date Value Ref Range Status 01/24/2025 0.07 <0.11 k/uL Final PATH: SURGICAL PATHOLOGY: [id number] Order: [id number] Collected 02/27/2025 11:37 AM Status: Final result [...] in [address] Bing Arvizu [address] [facility] [address] thank you for allowing me to participate in Skyler Le care, if there are any questions or concerns please do not hesitate to contact me at the number below. I spent a total of 60 minutes on the date of the service which included preparing to see the patient, anyl-go-rkax patient care, completing clinical documentation, obtaining and/or reviewing separately obtained history, performing a medically appropriate examination, counseling and educating the patient/family/caregiver, ordering medications, tests, or procedures, communicating with other HCPs (not separately reported), independently interpreting results (not separately reported), communicating results to the patient/family/caregiver, and care coordination (not separately reported). Ernesto Phoenix MD. Hematology/Medical Oncology [facility] [phone] CC: documented in this encounter [facility] 03-18-2025 Note HNO ID: [id number] Author: ERNESTO PHOENIX MD Service: ? Author Type: Physician Type: Progress Notes Filed: 03/18/2025 16:41 Note Text: PATIENT NAME: Skyler Le CLINIC NO.: [id number] ATTENDING PHYSICIAN: Ernesto Phoenix MD DATE OF SERVICE: March Dear Dr. Bing Arvizu [address] [facility] [address] thank you for referring Skyler Le for [...] unusual findings. Doing well - Works in [employer]. - No smoking - No alcohol. - [...] Bilirubin, Total (mg/dL) (more content not included)... [facility] 03-14-2025 Hospital Discharge instructions Patient Education 03/14/2025 [...] may need more sleep. General instructions Take djbp-nsd-nratbpd and prescription medicines only as told by your health care provider. Consider joining a support group. This can help you cope with the stress of having kidney cancer. Work with your health care provider to manage any side effects of treatment. Keep all follow-up visits. Your health care provider will want to make sure your treatment is working. Where to find more information [place] [employer]: cancer.org National Cancer [place] (NCI): cancer.gov Contact a health care provider [...] provider. Document Revised: 02/28/2023 Document Reviewed: 02/28/2023 [employer] Patient Education 2023 [employer]. Follow Up Care 12/20/2024 09:17:13 With:KARLA JAMES, Nikolai Berry, URL Address: [address] [place] [address]- When: Unknown [facility] 03-14-2025 Note Patient Education Oncology Kidney [...] need more sleep. General instructions ??? Take fysv-ift-weqbbil and prescription medicines only as told by [...] working. Where to find more information ??? [place] [employer]: cancer.org ??? National Cancer [place] (NCI): cancer.gov Contact a health care provider [...] of breath. ?? (more content not included)... [facility] 03-12-2025 Telephone encounter Note FINAL DIAGNOSIS A. [...] 6 weeks after surgery. Bing Arvizu MD [facility] Work Phone: 03-12-2025 Miscellaneous Notes FINAL DIAGNOSIS [...] Bing Arvizu MD documented in this encounter [facility] 03-12-2025 Miscellaneous Notes FLMA forms completed and faxed to [employer]. Fax confirmation received. Completed forms placed at the bowling or skating front desk clerk to be scanned into patients chart. Darrell Justin RN documented in this encounter [facility] 03-12-2025 Telephone encounter Note FLMA forms completed and faxed to [facility]. Fax confirmation received. Completed forms placed at the bowling or skating front desk clerk to be scanned into patients chart. Darrell Justin RN [facility] 03-11-2025 Instructions Tamanna Zhu APRN.DEEP - 03/11/2025 [...] labs obtained today. documented in this encounter [facility] 03-11-2025 Telephone encounter Note Spoke with [...] go to ED closer to home as [place] is almost [place] hour away. All questions answered. Patient inquiring about his pathology results, will follow up with Dr. Arvizu. Aurea Rodriguez MD Urology Resident PGY-1 Pager [facility] Work Phone: 03-11-2025 Miscellaneous Notes Spoke [...] go to ED closer to home as [place] is almost an hour away. All questions answered. Patient inquiring about his pathology results, will follow up with Dr. Arvizu. Aurea Rodriguez MD Urology Resident PGY-1 Pager documented in this encounter [facility] 03-05-2025 Telephone encounter Note Patient needs the provider to complete FMLA paperwork for his medical leave. Patient gave provider the paperwork at his office visit on 01/03/25. Please advise [facility] 03-05-2025 Miscellaneous Notes Patient needs the provider to complete FMLA paperwork for his medical leave. Patient gave provider the paperwork at his office visit on 01/03/25. Please advise documented in this encounter [facility] 02-28-2025 Note HNO ID: [id number] Author: TAMANNA ZHU APRN.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 Service: Urology Author Type: Nurse Practitioner Type: Progress Notes Filed: 03/12/2025 10:45 Note Text: Documentation Query Please specify a diagnosis associated with the Clinical Indicators for this patient {Please select the appropriate option:[id number]:: Obesity Class 2 This document will become part of the patient's medical record. Tamanna Zhu APRN.CNP [facility] 02-28-2025 Note HNO ID: [id number] Author: TAMANNA ZHU APRN.CNP Service: Urology Author Type: Nurse Practitioner Type: Progress Notes Filed: 03/12/2025 10:45 Note Text: Documentation Query Please clarify the diagnosis associated with the clinical indicators {Please select the appropriate option:931430:: Acute kidney injury , This document will become part of the patient's medical record. [facility] 02-28-2025 Note HNO ID: [id number] Author: TAMANNA ZHU APRN.CNP Service: Urology Author Type: Nurse Practitioner Type: Progress Notes Filed: 03/10/2025 09:26 Note Text: Documentation Query Please clarify the diagnosis associated with the clinical indicators for this patient Provider Response: {Please select the appropriate option:[id number]:: Hyperkalemia supported by: Continued Lab Monitoring, Continued Symptom Monitoring, and Other, please specify treatment if hyperkalemia with IV furosemide, dextrose/insulin , This document will become part of the patient's medical record. Tamanna Zhu APRN.CNP [facility] 02-28-2025 Note HNO ID: [id number] Author: JUAN ANTONIO KATZ CPhT Service: ? Author Type: Special Shopper Type: Plan of Care Filed: 02/28/2025 15:07 Note Text: PHARMACY BEDSIDE DELIVERY SERVICE Patient Name: Skyler Le The marked outpatient medications were Filled at: [place] and delivered to the patient's bedside to [...] as: ZESTORETIC Juan Antonio Katz CPhT PAGER: [phone] February 28, 2025 3:07 PM [facility] 02-28-2025 Note HNO ID: [id number] Author: BING ARVIZU MD Service: Urology Author Type: Physician Type: Progress Notes Filed: 02/28/2025 07:52 Note Text: [facility] UROLOGY PROGRESS NOTE Name: Skyler Le Bed: [id number] Date: 02/28/2025 After Hours [facility] Urology Service Pager: [phone] ASSESSMENT AND PLAN Skyler Le is a [...] please page the urology [place]: [phone] for [facility] [phone] for [place] inbound call center representative resident/fellow/staff in [place] for all other [facility] hospitals SUBJECTIVE -see above Objective Vital [...] 1.52* GLUC 142* 178* Imaging reviewed Dallas Bulalrd MD Personal Pager: For weekend or after 5pm issues, please page the urology [place]: [phone] [address] [place] [phone] for [place] inbound call center representative resident/fellow/staff in [facility] for all other [facility] hospitals The above noted history, physical, assessment and plan were reviewed with the provider and critical portions of the HANDP were confirmed. I agree with the plan above and provided direct supervision of the above provider during this patient's care. Bing Arvizu MD [facility] 02-27-2025 Note HNO ID: [id number] Author: BETH MASTERSON DO Service: Nursing Author [...] procedure. Beth Masterson DO SIGNATURE: Ciera Honeycutt APRN.EYE CLINIC MANAGER PATIENT NAME: Skyler Le DATE: February 27, 2025 TIME: 9:04 AM CSN: [id number] [facility] 02-27-2025 Note HNO ID: [id number] Author: CIERA HONEYCUTT APRN.CRNA Service: Nursing Author Type: Nurse Rider Ticket Worker Type: Anesthesia Procedure Notes Filed: 02/27/2025 09:12 [...] Imaging Guidance Used: No SIGNATURE: Ciera Honeycutt APRN.EYE CLINIC MANAGER PATIENT NAME: Skyler Le DATE: February 27, 2025 TIME: 9:03 AM CSN: [id number] [facility] 02-27-2025 Note HNO ID: [id number] Author: CIERA HONEYCUTT APRN.CRNA Service: Nursing Author Type: Nurse Rider Ticket Worker Type: Anesthesia Procedure Notes Filed: 02/27/2025 09:12 Note Text: ANESTHESIOLOGY PROCEDURE NOTE Airway General Information Procedure Start Time/Medication Administration: 02/27/2025 7:56 AM Procedure End Time: 02/27/2025 7:59 AM Patient location during procedure: OR Patient identity confirmed: arm band, care steam table attendant and patient Staffing Anesthesiologist: Beth Masterson DO EYE CLINIC MANAGER: Ciera Honeycutt APRN.EYE CLINIC MANAGER SRNA: Tianna Diego SRNA Performed by: ELICIA [...] February 27, 2025 TIME: 9:00 AM CSN: [id number] [facility] 02-10-2025 Telephone encounter Note I have ordered two Venofer Infusions for patient . The best location for this patient is the [facility] to have these completed. Rob Romero MALL MANAGER-C [facility] 02-10-2025 Miscellaneous Notes I have ordered two Venofer Infusions for patient . The best location for this patient is the [facility] to have these completed. Rob COSBY documented in this encounter [facility] 02-07-2025 Instructions Rob Romero APRN.DEEP - 02/07/2025 2:16 PM EDT PATIENT PREOPERATIVE INSTRUCTIONS Bing Arvizu MD has scheduled you for your procedure at this surgery center: [facility]: [phone] --[phone] [address]. Please check in on the 1st floor [...] SURGERY If you are currently using a svql-pia-zahh injectable or oral medication for diabetes or [...] Procedures: - YOU MUST HAVE A RESPONSIBLE ELEVATOR EXAMINER TAKE YOU HOME. A CNC SERVICE ENGINEER OR ELECTRIC METER INSTALLER CANNOT BE MADE A RESPONSIBLE ELEVATOR EXAMINER. - We recommend that a responsible person [...] Advance Directive, please fax a copy to [phone] or email to for it to be [...] Rob Romero APRN.CNP documented in this encounter [facility] 02-07-2025 History and physical note Images [...] 0 (ROSA M compliant with CPAP ) [id number] Score: Age: 65-74 Sex: male CHF history: No Hypertension history: Yes Stroke/TIA/thromboembolism history: No Vascular disease history: No Diabetes history: Yes [id number] Score: 3 ARISCAT Score: Age: 51-80 Preoperative [...] fevers. Neuro: No history of TIA's, stroke, TYPESETTING MACHINE TENDER tumor, impaired sensorium, hemiplegia, paraplegia or quadraplegia. [...] Admin: COVID-19 vaccine, age 12+ yr, bivalent ([employer]) 02/26/2022 Imm Admin: COVID-19 original vaccine, age 12+ yr, monovalent ([employer] - FERNANDE[employer]) Only the first 5 [...] Skyler Le DATE: 02/07/2025 TIME: 2:13 PM [facility] 02-07-2025 History and physical note Images from the original note were not included. [facility] HISTORY AND PHYSICAL EXAMINATION SERVICE DATE: 02/07/2025 SERVICE TIME: 2:02 PM PRIMARY CARE PHYSICIAN: Jessica Davalos CNP, 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 REASON FOR VISIT: Skyler Le is a [...] 0 (ROSA M compliant with CPAP ) [id number] Score: Age: 65-74 Sex: male CHF history: No Hypertension history: Yes Stroke/TIA/thromboembolism history: No Vascular disease history: No Diabetes history: Yes [id number] Score: 3 ARISCAT Score: Age: 51-80 Preoperative [...] fevers. Neuro: No history of TIA's, stroke, TYPESETTING MACHINE TENDER tumor, impaired sensorium, hemiplegia, paraplegia or quadraplegia. [...] Admin: COVID-19 vaccine, age 12+ yr, bivalent ([employer]) 02/26/2022 Imm Admin: COVID-19 original vaccine, age 12+ yr, monovalent ([employer] TOP) Only the first 5 [...] TIME: 2:13 PM documented in this encounter [facility] 01-09-2025 Telephone encounter Note Left voice message on patients phone and also 's Irene to call Interventional Radiology to schedule his biopsy. They have left 2 messages to call to schedule appointment. [facility] 01-09-2025 Miscellaneous Notes Left voice message on patients phone and also 's Irene to call Interventional Radiology to schedule his biopsy. They have left 2 messages to call to schedule appointment. documented in this encounter [facility] 01-06-2025 Telephone encounter Note Left vm for patient to call back- 1st attempt [facility] 01-06-2025 Miscellaneous Notes Left vm for [...] this procedure: intermediate-high risk. Reference from [facility] [employer]: https://[facility].policyuGift.com/dotNet/ documents/?dkera=08776 STAFF SIGNATURE: Rivas Santana MD DATE: January [...] 3:46pm REQUESTING STAFF: Bing Arvizu MD PHONE/PAGER: [phone] SPECIFICS OF THE REQUEST: Renal Biopsy SPECIAL REQUESTS: TISSUE SAMPLE, LABWORK: N/A IS THIS REQUEST PART OF A RESEARCH PROTOCOL: No MEDICAL DIAGNOSIS: Neoplasm of uncertain behavior of left kidney TYPE AND DATE OF THE EXAM THAT IS THE BASIS OF THE REQUEST: CT Date: 12/14/2024 IMAGING: OUTSIDE [facility] Films: Where is study now: in patient's chart Note to all persons requesting biopsies: All biopsy requests will be scheduled as quickly as possible, based on the clinical urgency, availability of appointment times, the need to hold anti-thrombolytic therapy (aspirin, blood thinners) and the patient s schedule, including the need for an available public transit bus driver. If a percutaneous biopsy or drainage is not felt to be safe or an alternative method for establishing a diagnosis is possible, this will be discussed directly with the requesting physician. documented in this encounter [facility] 01-06-2025 Telephone encounter Note RADIOLOGIST REQUEST [...] this procedure: intermediate-high risk. Reference from [employer]: https://ccf.policytech.com/dotNet/ documents/?avysn=27545 STAFF SIGNATURE: Rivas Santana MD DATE: January 06, 2025 TIME: 9:21 AM [facility] 01-06-2025 Telephone encounter Note BX. [...] DATE: January 06, 2025 TIME: 7:59 AM [facility] 01-03-2025 Telephone encounter Note Summary: Renal biopsy RADIOLOGY CALL CENTER INTAKE DATE: 01/03/2025 TIME: 3:46pm REQUESTING STAFF: Bing Arvizu MD PHONE/PAGER: [phone] SPECIFICS OF THE REQUEST: Renal Biopsy SPECIAL REQUESTS: TISSUE SAMPLE, LABWORK: N/A IS THIS REQUEST PART OF A RESEARCH PROTOCOL: No MEDICAL DIAGNOSIS: Neoplasm of uncertain behavior of left kidney TYPE AND DATE OF THE EXAM THAT IS THE BASIS OF THE REQUEST: CT Date: 12/14/2024 IMAGING: OUTSIDE [facility] Films: Where is study now: in patient's chart Note to all persons requesting biopsies: All biopsy requests will be scheduled as quickly as possible, based on the clinical urgency, availability of appointment times, the need to hold anti-thrombolytic therapy (aspirin, blood thinners) and the patient s schedule, including the need for an available public transit bus driver. If a percutaneous biopsy or drainage is not felt to be safe or an alternative method for establishing a diagnosis is possible, this will be discussed directly with the requesting physician. [facility] 01-03-2025 Note Addended by: BING STEELE on: 01/03/2025 03:33 PM Modules accepted: Orders [facility] 01-03-2025 Miscellaneous Notes Addended by: BING ARVIZU on: 01/03/2025 03:33 PM Modules accepted: Orders documented in this encounter [facility] 01-03-2025 History of Present illness Narrative [facility] NEW PATIENT HISTORY AND PHYSICAL [...] was discussed with the patient or authorized administrative representative. The patient or authorized administrative representative has agreed to proceed with the [...] Surgery is tentatively planned for mid-January. My senior master scheduler will contact you to confirm the [...] within the next two weeks. - My senior master scheduler will contact you to confirm the date of your surgery, tentatively planned for mid. - If you have any questions or concerns, please contact our office. The patient consented to the use of [employer] software for draft documentation of the visit consistent with [facility] s Notice of Privacy Practices. By [...] of Medical Record. documented in this encounter [facility] 01-03-2025 Note HNO ID: [id number] Author: BING ARVIZU MD Service: ? Author Type: Physician Type: Progress Notes Filed: 01/03/2025 15:11 Note Text[facility] H[facility]ORY AND PHYSICAL EXAM PATIENT [...] resident, medical s (more content not included)... [facility] 12-20-2024 Note Patient Education Urology Transurethral Resection [...] including vitamins, herbs, eye drops, creams, and hlxr-cdg-qoorbsd medicines. ??? Any problems you or family [...] tells you to take them. ??? Taking crfn-gib-gnvvdzl medicines, vitamins, herbs, and supplements. Surgery safety [...] bladder. The cathete (more content not included)... [facility] 10-24-2024 Evaluation + Plan note Diagnostic Tests PendingUrine Culture 10/24/24 [facility] 10-24-2024 Hospital Discharge instructions Patient Education [...] as fried or sweet foods. These include slovenian fries, hamburgers, cookies, candies, and soda. Drink enough fluid to keep your urine pale yellow. General instructions Exercise regularly or as told by your health care provider. Try to do 150 minutes of moderate exercise each week. Use the bathroom when you have the urge to go. Do not hold it in. Take irak-tsl-gjzyrpn and prescription medicines only as told by [...] to keep your urine pale yellow. Take tpli-kve-xligbff and prescription medicines only as told by your health care provider. This includes any fiber supplements. This information is not intended to replace advice given to you by your health care provider. Make sure you discuss any questions you have with your health care provider. Document Revised: 08/02/2023 Document Reviewed: 08/02/2023 [employer] Patient Education 2023 [employer] 10/23/2024 16:04:03 Hematuria, Adult Hematuria, Adult [...] Follow these instructions at home: Medicines Take gprz-nrh-fhkerko and prescription medicines only as told by [...] or the blood stops without treatment. Take hpdx-qmx-oevglim and prescription medicines only as told by your health care provider. Drink enough fluid to keep your urine pale yellow. This information is not intended to replace advice given to you by your health care provider. Make sure you discuss any questions you have with your health care provider. Document Revised: 05/19/2021 Document Reviewed: 05/19/2021 [employer] Patient Education 2023 [employer]. Follow Up Care 10/15/2024 09:45:52 With:[facility] Address: When: Unknown Comments:For procedure as scheduled. With:[facility] Address: When: Unknown Comments:For procedure as scheduled. [facility] [employer] 10-24-2024 Note Patient Education Gastroenterology Constipation, Adult [...] as fried or sweet foods. These include slovenian fries, hamburgers, cookies, candies, and soda. ??? Drink enough fluid to keep your urine pale yellow. General instructions ??? Exercise regularly or as told by your health care provider. Try to do 150 minutes of moderate exercise each week. ??? Use the bathroom when you have the urge to go. Do not hold it in. ??? Take fecp-pou-tvaosda and prescription medicines only as told by [...] keep your urine pale yellow. ??? Take xvha-odj-zyxjxrc and prescription medicines only as told by your health care provider. This includes any fiber supplements. This information is not intended to replace advice given to you by your health care provider. Make sure you discuss any questions you have with your health care provider. Document Revised: 08/02/2023 Document Reviewed: 08/02/2023 [employer] Patient Education ? 2023 [employer] Urology Hematuria, Adult Hematuria is blood [...] these instructions at home: Medicines ??? Take fhjf-lel-yarftsz and prescription medicines only as told by [...] back and u (more content not included)... 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 [facility] [place] [facility] Diagnosis Neoplasm of uncertain behavior of left kidney- Primary 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 [facility] [place] [facility] Diagnosis Renal mass, left- Primary Unspecified disorder of kidney and ureter 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 [facility] [place] [facility] Diagnosis Renal mass, left- Primary Unspecified disorder of kidney and ureter Abnormal blood chemistry Other abnormal blood chemistry 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 [facility] [place] [facility]* Diagnosis Pre-op evaluation- Primary Preoperative examination, unspecified Depression, unspecified depression type Type 2 diabetes mellitus without complication, unspecified whether intermediate designer insulin use (HCC) BPH with obstruction/lower urinary [...] any suicidal ideation documented in this encounter [facility] note* Diagnosis Pre-op evaluation- Primary Preoperative examination, unspecified Depression, unspecified depression type Type 2 diabetes mellitus without complication, unspecified whether fdc insulin use (HCC) BPH with obstruction/lower urinary [...] kidney and ureter documented in this encounter [facility] note* Diagnosis Pre-op evaluation- Primary Preoperative examination, unspecified Depression, unspecified depression type Type 2 diabetes mellitus without complication, unspecified whether intermediate designer insulin use (HCC) BPH with obstruction/lower urinary [...] kidney and ureter [facility] [place] [facility]* Diagnosis Pre-op evaluation- Primary Preoperative examination, unspecified Depression, unspecified depression type Type 2 diabetes mellitus without complication, unspecified whether intermediate designer insulin use (HCC) BPH with obstruction/lower urinary [...] kidney failure, unspecified [facility] [place]* Diagnosis Pre-op evaluation- Primary Preoperative examination, unspecified Depression, unspecified depression type Type 2 diabetes mellitus without complication, unspecified whether fdc insulin use (HCC) BPH with obstruction/lower urinary [...] Hyperkalemia- Primary Hyperpotassemia [facility] [place] [facility] Diagnosis Pre-op evaluation- Primary Preoperative examination, unspecified Depression, unspecified depression type Type 2 diabetes mellitus without complication, unspecified whether intermediate designer insulin use (HCC) BPH with obstruction/lower urinary [...] kidney (HCC)- Primary documented in this encounter [facility] note* Diagnosis Pre-op evaluation- Primary Preoperative examination, unspecified Depression, unspecified depression type Type 2 diabetes mellitus without complication, unspecified whether intermediate designer insulin use (HCC) BPH with obstruction/lower urinary [...] left kidney (HCC) documented in this encounter [facility] note* Diagnosis Pre-op evaluation- Primary Preoperative examination, unspecified Depression, unspecified depression type Type 2 diabetes mellitus without complication, unspecified whether fdc insulin use (HCC) BPH with obstruction/lower urinary [...] left kidney (HCC) documented in this encounter [facility] note* Diagnosis Pre-op evaluation- Primary Preoperative examination, unspecified Depression, unspecified depression type Type 2 diabetes mellitus without complication, unspecified whether fdc insulin use (HCC) BPH with obstruction/lower urinary [...] kidney (HCC)- Primary documented in this encounter [facility] note* Diagnosis Pre-op evaluation- Primary Preoperative examination, unspecified Depression, unspecified depression type Type 2 diabetes mellitus without complication, unspecified whether fdc insulin use (HCC) BPH with obstruction/lower urinary [...] kidney (HCC)- Primary [facility] [place] [facility]* Diagnosis Pre-op evaluation- Primary Preoperative examination, unspecified Depression, unspecified depression type Type 2 diabetes mellitus without complication, unspecified whether intermediate designer insulin use (HCC) BPH with obstruction/lower urinary [...] Nontoxic uninodular goiter [facility] [place] [facility] Diagnosis Pre-op evaluation- Primary Preoperative examination, unspecified Depression, unspecified depression type Type 2 diabetes mellitus without complication, unspecified whether intermediate designer insulin use (HCC) BPH with obstruction/lower urinary [...] kidney (HCC)- Primary [facility] [place] [facility]* Diagnosis Pre-op evaluation- Primary Preoperative examination, unspecified Depression, unspecified depression type Type 2 diabetes mellitus without complication, unspecified whether intermediate designer insulin use (HCC) BPH with obstruction/lower urinary [...] kidney (HCC)- Primary [facility] [place] [facility]* Diagnosis Pre-op evaluation- Primary Preoperative examination, unspecified Depression, unspecified depression type Type 2 diabetes mellitus without complication, unspecified whether fdc insulin use (HCC) BPH with obstruction/lower urinary [...] left kidney (HCC) documented in this encounter [facility] note* Diagnosis Pre-op evaluation- Primary Preoperative examination, unspecified Depression, unspecified depression type Type 2 diabetes mellitus without complication, unspecified whether fdc insulin use (HCC) BPH with obstruction/lower urinary [...] left kidney (HCC) documented in this encounter [facility] note* Diagnosis Onset Date Resolution Status Admit Date Anemia of renal disease acute J joey 2024 3:43pm Chronic kidney disease, stag e IV (severe) acute April 22, 2025 3:43pm Diabetic nephropathy acute April 22, 2025 3:43pm History of nephrectomy, left acute April 22, 2025 3:43pm Hypertensive nephropathy acute April 22, 2025 3:43pm Hyperuricemia acute April 22, 2025 3:43pm [facility] Work Phone: Evaluation note* Diagnosis Pre-op evaluation- Primary Preoperative examination, unspecified Depression, unspecified depression type Type 2 diabetes mellitus without complication, unspecified whether fdc insulin use (HCC) BPH with obstruction/lower urinary [...] Nontoxic uninodular goiter [facility] [place] [facility]* Diagnosis Pre-op evaluation- Primary Preoperative examination, unspecified Depression, unspecified depression type Type 2 diabetes mellitus without complication, unspecified whether intermediate designer insulin use (HCC) BPH with obstruction/lower urinary [...] 2 diabetes mellitus without complication, unspecified whether fdc insulin use (HCC)- Primary 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 documented in this encounter [facility] note* Diagnosis Pre-op evaluation- Primary Preoperative examination, unspecified Depression, unspecified depression type Type 2 diabetes mellitus without complication, unspecified whether intermediate designer insulin use (HCC) BPH with obstruction/lower urinary [...] kidney (HCC)- Primary documented in this encounter [facility] note* Diagnosis Pre-op evaluation- Primary Preoperative examination, unspecified Depression, unspecified depression type Type 2 diabetes mellitus without complication, unspecified whether intermediate designer insulin use (HCC) BPH with obstruction/lower urinary [...] kidney (HCC)- Primary documented in this encounter [facility] course Narrative No data available for this section [facility] Hospital Discharge instructions No data available for this section [facility] Progress note No data available for this section [facility] reason for referral (narrative)No reason for referral information [facility] Work Phone: Reason for visit Narrative* [place] Prior Authorization (Routine) - Authorized Specialty Diagnoses / Procedures Referred By Contac t Referred To Contact Diagnoses Intestinal malabsorption, unspecified type (HCC) Iron deficiency anemia, unspecified iron deficiency anemia type Procedures IRON SUCROSE INJECTION PER 1 MG Rob Romero SIGNALING PROJECT ENGINEER.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 [address] [place] [address] Phone: tel: fax: Rob Romero APRN.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 [address] [place] [address] Phone: tel: fax: Referral ID Status Reason Start Date Expiration Date V isits Requested Visits Authorized [id number] Authorized 02/10/2025 10/01/2025 99 99 [facility] for visit Narrative* Consult, Test, Treat (Routine) - Closed Specialty Diagnoses / Procedures Referred By Contac t Referred To Contact Hematology / HEMATOLOGY/ONCOLOGY Diagnoses Malignant neoplasm of left kidney, except renal pelvis (HCC) EKG Procedures OFFICE/OUTPATIENT ESTABLISHED MOD [facility] 30 MIN POINT OF CARE TEST Ernesto Phoenix MD [address] [place] [address] Phone: tel: fax: Landen Ellis Nurse Michael [address] [place] [address] Phone: tel: Referral ID Status Reason Start Date Expiration Date Visits Re quested Visits Authorized [id number] Closed 04/18/2025 10/01/2025 1 1 [facility] for visit Narrative* [place] Prior Authorization (Routine) - Authorized Specialty Diagnoses / Procedures Referred By Contac t Referred To Contact Diagnoses 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 DATE CREATED AUTHOR AUTHOR'S ORGANIZ ATION 10/25/2024 Gurley Mega [facility] DATE CREATED AUTHOR AUTHOR'S ORGANIZ ATION 03/14/2025 [facility] DATE CREATED AUTHOR AUTHOR'S ORGANIZ ATION 03/17/2025 Gooden Hoke [facility] DATE CREATED AUTHOR AUTHOR'S ORGANIZ ATION 04/05/2025 [facility] DATE CREATED AUTHOR AUTHOR'S ORGANIZ ATION 04/05/2025 [facility] DATE CREATED AUTHOR AUTHOR'S ORGANIZ ATION 05/21/2025 [facility] Care Teams (unrecognized sec tion and content) Team Status: Inactive Member Role Status Dates ALEA Cook Attending Provider Active Start: October 08, 2024 End: October 08, 2024 Team Status: Inactive Member Role Status Dates Nikolai Acosta MD Attending Provider Active St art: November 11, 2024 End: November 11, 2024 Music Artist Relationship Specialty Start Date End Date Jessica Davalos CNP [address] [place] [facility] [place] [address] PCP - General Internal Medicine 02/07/25 Music Artist Relationship Specialty Start Date End Date Jessica Davalos CNP [address] [place] [address] PCP - General Internal Medicine 02/07/25 Music Artist Relationship Specialty Start Date End Date Jessica Davalos CNP [address] [place] [address] PCP - General Internal Medicine 02/07/25 Music Artist Relationship Specialty Start Date End Date Jessica Davalos CNP [address] [place] [address] PCP - General Internal Medicine 02/07/25 Music Artist Relationship Specialty Start Date End Date Jessica Davalos CNP [address] [facility] [place] [address] PCP - General Internal Medicine 02/07/25 Music Artist Relationship Specialty Start Date End Date Jessica Davalos CNP [address] [place] [address] PCP - General Internal Medicine 02/07/25 Music Artist Relationship Specialty Start Date End Date Jessica Davalos CNP [address] [place] [address] PCP - General Internal Medicine 02/07/25 Music Artist Relationship Specialty Start Date End Date Jessica Davalos CNP [address] [place] [address] PCP - General Internal Medicine 02/07/25 Music Artist Relationship Specialty Start Date End Date Jessica Davalos CNP [address] [place] [address] PCP - General Internal Medicine 02/07/25 Music Artist Relationship Specialty Start Date End Date Jessica Davalos CNP [address] [place] [address] PCP - General Internal Medicine 02/07/25 Music Artist Relationship Specialty Start Date End Date Jessica Davalos CNP [address] [place] [address] PCP - General Internal Medicine 02/07/25 Music Artist Relationship Specialty Start Date End Date Jessica Davalos CNP [address] [place] [address] PCP - General Internal Medicine 02/07/25 Music Artist Relationship Specialty Start Date End Date Jessica Davalos CNP [address] [place] [address] PCP - General Internal Medicine 02/07/25 Valerie Mosqueda RN [address] [facility] [address] [place], [facility] Specialty Mail Handler Assistant Hematology/Oncology 03/28/25 Ernesto Phoenix MD [address] [place], [facility] Physician Hematology/Oncology 03/28/25 Music Artist Relationship Specialty Start Date End Date Jessica Davalos CNP [address] [place] [address] PCP - General Internal Medicine 02/07/25 Valerie Mosqueda RN [address] [place] [address] Specialty Mail Handler Assistant Hematology/Oncology 03/28/25 Ernesto Phoenix MD [address] [place] [address] Physician Hematology/Oncology 03/28/25 Music Artist Relationship Specialty Start Date End Date Jessica Davalos CNP [address] [place] [address] PCP - General Internal Medicine 02/07/25 Valerie Mosqueda RN [address] [facility] [address] Specialty Mail Handler Assistant Hematology/Oncology 03/28/25 Ernesto Phoenix MD [address] [place] [address] Physician Hematology/Oncology 03/28/25 Music Artist Relationship Specialty Start Date End Date Jessica Davalos CNP [address] [place] [address] PCP - General Internal Medicine 02/07/25 Valerie Mosqueda RN [address] [place] [address] Specialty Mail Handler Assistant Hematology/Oncology 03/28/25 Ernesto Phoenix MD [address] [place] [address] Physician Hematology/Oncology 03/28/25 Music Artist Relationship Specialty Start Date End Date Jessica Davalos CNP [address] [place] [address] PCP - General Internal Medicine 02/07/25 Valerie Mosqueda RN [address] [facility] [address] Specialty Mail Handler Assistant Hematology/Oncology 03/28/25 Ernesto Phoenix MD [address] [place] [address] Physician Hematology/Oncology 03/28/25 Music Artist Relationship Specialty Start Date End Date Jessica Davalos CNP [address] [place] [address] PCP - General Internal Medicine 02/07/25 Valerie Mosqueda RN [address] [facility] [address] Specialty Mail Handler Assistant Hematology/Oncology 03/28/25 Ernesto Phoenix MD [address] [place] [address] Physician Hematology/Oncology 03/28/25 Music Artist Relationship Specialty Start Date End Date Jessica Davalos CNP [address] [place] [address] PCP - General Internal Medicine 02/07/25 Valerie Mosqueda RN [address] [place] [address] Specialty Mail Handler Assistant Hematology/Oncology 03/28/25 Ernesto Phoenix MD [address] [place] [address] Physician Hematology/Oncology 03/28/25 Music Artist Relationship Specialty Start Date End Date Jessica Davalos CNP [address] [place] [address] PCP - General Internal Medicine 02/07/25 Valerie Mosqueda, RN [address] [facility] [address] Specialty Mail Handler Assistant Hematology/Oncology 03/28/25 Ernesto Phoenix MD [address] [facility] [address] Physician Hematology/Oncology 03/28/25 Music Artist Relationship Specialty Start Date End Date Jessica Davalos, 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 [address] [place] [address] PCP - General Internal Medicine 02/07/25 Valerie Mosqueda RN [address] [facility] [address] Specialty Mail Handler Assistant Hematology/Oncology 03/28/25 Ernesto Phoenix MD [address] [place] [address] Physician Hematology/Oncology 03/28/25 [place] [address] [place] [id number] Physician Hematology 04/09/25 Madelin Mc RN Specialty Mail Handler Assistant Hematology/Oncology 04/09/25 Music Artist Relationship Specialty Start Date End Date Jessica Davalos CNP [address] [place] [address] PCP - General Internal Medicine 02/07/25 Valerie Mosqueda RN [address] [facility] [address] Specialty Mail Handler Assistant Hematology/Oncology 03/28/25 Ernesto Phoenix MD [address] [facility] [place] [address] Physician Hematology/Oncology 03/28/25 [place] [address] [place] [id number] Physician Hematology 04/09/25 Madelin Mc, RN Specialty Mail Handler Assistant Hematology/Oncology 04/09/25 Music Artist Relationship Specialty Start Date End Date Jessica Davalos, 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 [address] [place] [address] PCP - General Internal Medicine 02/07/25 Valerie Mosqueda, JUANA [address] [place] [address] Specialty Mail Handler Assistant Hematology/Oncology 03/28/25 Ernesto Phoenix MD [address] [facility] [place] [address] Physician Hematology/Oncology 03/28/25 [place] [address] [place] [id number] Physician Hematology 04/09/25 Madelin Mc, RN Specialty Mail Handler Assistant Hematology/Oncology 04/09/25 Music Artist Relationship Specialty Start Date End Date Jessica Davalos, 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 [address] [place] [address] PCP - General Internal Medicine 02/07/25 Valerie Mosqueda RN [address] [place] [address] Specialty Mail Handler Assistant Hematology/Oncology 03/28/25 Ernesto Phoenix MD [address] [place] [address] Physician Hematology/Oncology 03/28/25 [place] [address] [place] [id number] Physician Hematology 04/09/25 Madelin Mc RN Specialty Mail Handler Assistant Hematology/Oncology 04/09/25 Music Artist Relationship Specialty Start Date End Date Jessica Davalos CNP [address] [place] [address] PCP - General Internal Medicine 02/07/25 Valerie Mosqueda RN [address] [facility] [address] [place], [facility] Specialty Mail Handler Assistant Hematology/Oncology 03/28/25 Ernesto Phoenix MD [address] [place] [address] Physician Hematology/Oncology 03/28/25 [place] [address] [place] [phone] Physician Hematology 04/09/25 Madelin Mc RN Specialty Mail Handler Assistant Hematology/Oncology 04/09/25 Myrtle Holland, OLIVER Acid Leveler 04/11/25 Music Artist Relationship Specialty Start Date End Date Jessica Davalos CNP [address] [place] [address] PCP - General Internal Medicine 02/07/25 Valerie Mosqueda RN [address] [place] [address] Specialty Mail Handler Assistant Hematology/Oncology 03/28/25 Ernesto Phoenix MD [address] [place] [address] Physician Hematology/Oncology 03/28/25 [place] [address] [place] [address] Physician Hematology 04/09/25 Madelin Mc RN Specialty Mail Handler Assistant Hematology/Oncology 04/09/25 Myrtle Holland LSW Acid Leveler 04/11/25 Music Artist Relationship Specialty Start Date End Date Jessica Davalos CNP [address] [place] [address] PCP - General Internal Medicine 02/07/25 Valerie Mosqueda, JUANA [address] [place] [address] Specialty Mail Handler Assistant Hematology/Oncology 03/28/25 Ernesto Phoenix MD [address] [place] [address] Physician Hematology/Oncology 03/28/25 [place] [address] [place] [phone] Physician Hematology 04/09/25 Madelin Mc RN Specialty Mail Handler Assistant Hematology/Oncology 04/09/25 Myrtle Holland, [facility] Acid Leveler 04/11/[address] [place] [address] Nutrition 04/17/25 Music Artist Relationship Specialty Start Date End Date Jessica Davalos CNP [address] [place] [address] PCP - General Internal Medicine 02/07/25 Valerie Mosqueda RN [address] [place] [address] Specialty Mail Handler Assistant Hematology/Oncology 03/28/25 Ernesto Phoenix MD [address] [place] [address] Physician Hematology/Oncology 03/28/25 [place] [address] [place] [address] Physician Hematology 04/09/25 Madelin Mc RN Specialty Mail Handler Assistant Hematology/Oncology 04/09/25 Myrtle Holland, [employer] RE[employer]TER Acid Leveler 04/11/25 Yesica Calderon, DARYL [address] [place] [address] Nutrition 04/17/25 Music Artist Relationship Specialty Start Date End Date Jessica Davalos, DEEP [address] [place] [address] PCP - General Internal Medicine 02/07/25 Valerie Mosqueda, RN [address] [place] [address] Specialty Mail Handler Assistant Hematology/Oncology 03/28/25 Ernesto Phoenix MD [address] [place] [address] Physician Hematology/Oncology 03/28/25 [place] [address] [place] [address] Physician Hematology 04/09/25 Madelin Mc RN Specialty Mail Handler Assistant Hematology/Oncology 04/09/25 Myrtle Holland, [facility] Acid Leveler 04/11/25 Yesica Calderon, DARYL [address] [place] [address] Nutrition 04/17/25 Music Artist Relationship Specialty Start Date End Date Jessica Davalos CNP [address] [place] [address] PCP - General Internal Medicine 02/07/25 Valerie Mosqueda RN [address] [place] [address] Specialty Mail Handler Assistant Hematology/Oncology 03/28/25 Ernesto Phoenix MD [address] [place] [address] Physician Hematology/Oncology 03/28/25 [place] [address] [place] [phone] Physician Hematology 04/09/25 Madelin Mc RN Specialty Mail Handler Assistant Hematology/Oncology 04/09/25 Myrtle Holland, SOCIETY REPORTER Acid Leveler 04/11/25 Yesica Calderon, DARYL [facility]5 [place] [id number] Nutrition 04/17/25 Music Artist Relationship Specialty Start Date End Date Jessica Davalos CNP [address] [place] [address] PCP - General Internal Medicine 02/07/25 Valerie Mosqueda RN [address] [facility] [place] [address] Specialty Mail Handler Assistant Hematology/Oncology 03/28/25 Ernesto Phoenix MD [address] [place] [address] Physician Hematology/Oncology 03/28/25 [place] [address] [place] [address] Physician Hematology 04/09/25 Madelin Mc RN Specialty Mail Handler Assistant Hematology/Oncology 04/09/25 Myrtle Holland, [facility] Acid Leveler 04/11/25 Yesica Calderon, DARYL [address] [place] [address] Nutrition 04/17/25 Music Artist Relationship Specialty Start Date End Date Jessica Davalos CNP [address] [place] [address] PCP - General Internal Medicine 02/07/25 Valerie Mosqueda RN [address] [facility] [place] [address] Specialty Mail Handler Assistant Hematology/Oncology 03/28/25 Ernesto Phoenix MD [address] [place] [address] [place] [address] Physician Hematology/Oncology 03/28/25 [place] [address] [place] [phone] Physician Hematology 04/09/25 Madelin Mc, JUANA Specialty Mail Handler Assistant Hematology/Oncology 04/09/25 Myrtle Holland LSW Acid Leveler 04/11/[address] [place] [address] Nutrition 04/17/25 Team Status: Active Member Role Status Dates Jessica Davalos NP-Rodolfo Primary Care Provider Active Team Status: Inactive Member Role Status Dates Jessica Davalos NP-C Primary Care Provider Active Start: April 22, 2025 End: April 22, 2025 Felton Urbina MD Attending Provider Active Star t: April 22, 2025 End: April 22, 2025 Music Artist Relationship Specialty Start Date End Date Jessica Davalos CNP [address] [place] [address] PCP - General Internal Medicine 02/07/25 Valerie Mosqueda, JUANA [address] [place] [address] Specialty Mail Handler Assistant Hematology/Oncology 03/28/25 Ernesto Phoenix MD [address] [place] [address] [place] [address] Physician Hematology/Oncology 03/28/25 [place] [address] [place] [address] Physician Hematology 04/09/25 Madelin Mc RN Specialty Mail Handler Assistant Hematology/Oncology 04/09/25 Myrtle Holland, SOCIETY REPORTER Acid Leveler 04/11/25 Yesica Calderon, DARYL [address] [place] [address] Nutrition 04/17/25 Music Artist Relationship Specialty Start Date End Date Jessica Davalos, DEEP [address] [place] [address] PCP - General Internal Medicine 02/07/25 Valerie Mosqueda, RN [address] [facility] [address] Specialty Mail Handler Assistant Hematology/Oncology 03/28/25 Ernesto Phoenix MD [address] [place] [address] Physician Hematology/Oncology 03/28/25 [place] [address] [place] [address] Physician Hematology 04/09/25 Madelin Mc RN Specialty Mail Handler Assistant Hematology/Oncology 04/09/25 Myrtle Holland, [facility] Acid Leveler 04/11/25 Yesica Calderon, DARYL [address] [place] [address] Nutrition 04/17/25 Music Artist Relationship Specialty Start Date End Date Jessica Davalos CNP [address] [place] [address] PCP - General Internal Medicine 02/07/25 Valerie Mosqueda, RN [address] [facility] [address] Specialty Mail Handler Assistant Hematology/Oncology 03/28/25 Ernesto Phoenix MD [address] [facility] [address] Physician Hematology/Oncology 03/28/25 [place] [address] [place] [phone] Physician Hematology 04/09/25 Madelin Mc RN Specialty Mail Handler Assistant Hematology/Oncology 04/09/25 Myrtle Holland, SOCIETY REPORTER Acid Leveler 04/11/25 Yesica Calderon, DARYL [facility] [place] [address] Nutrition 04/17/25 Music Artist Relationship Specialty Start Date End Date Jessica Davalos CNP [address] [place] [address] PCP - General Internal Medicine 02/07/25 Valerie Mosqueda RN [address] [facility] [place] [address] Specialty Mail Handler Assistant Hematology/Oncology 03/28/25 Ernesto Phoenix MD [address] [facility] [address] [place] [id number] Physician Hematology/Oncology 03/28/25 [place] [address] [place] [address] Physician Hematology 04/09/25 Madelin Mc RN Specialty Mail Handler Assistant Hematology/Oncology 04/09/25 Myrtle Holland, [facility] Acid Leveler 04/11/25 Yesica Calderon, DARYL [address] [place] [address] Nutrition 04/17/25 Music Artist Relationship Specialty Start Date End Date Jessica Davalos CNP [address] [place] [address] PCP - General Internal Medicine 02/07/25 Valerie Mosqueda RN [address] [facility] [place] [address] Specialty Mail Handler Assistant Hematology/Oncology 03/28/25 Ernesto Phoenix MD [address] [place] [address] [place] [address] Physician Hematology/Oncology 03/28/25 [place] [address] [place] [address] Physician Hematology 04/09/25 Madelin Mc RN Specialty Mail Handler Assistant Hematology/Oncology 04/09/25 Myrtle Holland LSW Acid Leveler 04/11/[address] [place] [address] Nutrition 04/17/25 Goals (unrecognized section and content) [...] or prosecute any alcohol or drug abuse patient.[facility] Hospital[facility] the event this information is protected by the Federal Confidentiality of Alcohol and Drug Abuse Patient Records regulations: The Federal rules restrict any use of the information to criminally investigate or prosecute any alcohol or drug abuse patient.[facility] HospitalIn the event this information is protected by the Federal Confidentiality of Alcohol and Drug Abuse Patient Records regulations: The Federal rules restrict any use of the information to criminally investigate or prosecute any alcohol or drug abuse patient.[facility] HospitalIn the event this information is protected by the Federal Confidentiality of Alcohol and Drug Abuse Patient Records regulations: The Federal rules restrict any use of the information to criminally investigate or prosecute any alcohol or drug abuse patient.[facility] HospitalIn the event this information is protected by the Federal Confidentiality of Alcohol and Drug Abuse Patient Records regulations: The Federal rules restrict any use of the information to criminally investigate or prosecute any alcohol or drug abuse patient.[facility] HospitalIn the event this information is protected by the Federal Confidentiality of Alcohol and Drug Abuse Patient Records regulations: The Federal rules restrict any use of the information to criminally investigate or prosecute any alcohol or drug abuse patient.[facility] HospitalIn the event this information is protected by the Federal Confidentiality of Alcohol and Drug Abuse Patient Records regulations: The Federal rules restrict any use of the information to criminally investigate or prosecute any alcohol or drug abuse patient.[facility] HospitalIn the event this information is protected by the Federal Confidentiality of Alcohol and Drug Abuse Patient Records regulations: The Federal rules restrict any use of the information to criminally investigate or prosecute any alcohol or drug abuse patient.[facility] HospitalIn the event this information is protected by the Federal Confidentiality of Alcohol and Drug Abuse Patient Records regulations: The Federal rules restrict any use of the information to criminally investigate or prosecute any alcohol or drug abuse patient.[facility] HospitalIn the event this information is protected by the Federal Confidentiality of Alcohol and Drug Abuse Patient Records regulations: The Federal rules restrict any use of the information to criminally investigate or prosecute any alcohol or drug abuse patient.[facility] HospitalIn the event this information is protected by the Federal Confidentiality of Alcohol and Drug Abuse Patient Records regulations: The Federal rules restrict any use of the information to criminally investigate or prosecute any alcohol or drug abuse patient.[facility] HospitalIn the event this information is protected by the Federal Confidentiality of Alcohol and Drug Abuse Patient Records regulations: The Federal rules restrict any use of the information to criminally investigate or prosecute any alcohol or drug abuse patient.[facility] HospitalIn the event this information is protected by the Federal Confidentiality of Alcohol and Drug Abuse Patient Records regulations: The Federal rules restrict any use of the information to criminally investigate or prosecute any alcohol or drug abuse patient.[facility] HospitalIn the event this information is protected by the Federal Confidentiality of Alcohol and Drug Abuse Patient Records regulations: The Federal rules restrict any use of the information to criminally investigate or prosecute any alcohol or drug abuse patient.[facility] HospitalIn the event this information is protected by the Federal Confidentiality of Alcohol and Drug Abuse Patient Records regulations: The Federal rules restrict any use of the information to criminally investigate or prosecute any alcohol or drug abuse patient.[facility] HospitalIn the event this information is protected by the Federal Confidentiality of Alcohol and Drug Abuse Patient Records regulations: The Federal rules restrict any use of the information to criminally investigate or prosecute any alcohol or drug abuse patient.[facility] HospitalIn the event this information is protected by the Federal Confidentiality of Alcohol and Drug Abuse Patient Records regulations: The Federal rules restrict any use of the information to criminally investigate or prosecute any alcohol or drug abuse patient.[facility] HospitalIn the event this information is protected by the Federal Confidentiality of Alcohol and Drug Abuse Patient Records regulations: The Federal rules restrict any use of the information to criminally investigate or prosecute any alcohol or drug abuse patient.[facility] HospitalIn the event this information is protected by the Federal Confidentiality of Alcohol and Drug Abuse Patient Records regulations: The Federal rules restrict any use of the information to criminally investigate or prosecute any alcohol or drug abuse patient.[facility] HospitalIn the event this information is protected by the Federal Confidentiality of Alcohol and Drug Abuse Patient Records regulations: The Federal rules restrict any use of the information to criminally investigate or prosecute any alcohol or drug abuse patient.[facility] HospitalIn the event this information is protected by the Federal Confidentiality of Alcohol and Drug Abuse Patient Records regulations: The Federal rules restrict any use of the information to criminally investigate or prosecute any alcohol or drug abuse patient.[facility] HospitalIn the event this information is protected by the Federal Confidentiality of Alcohol and Drug Abuse Patient Records regulations: The Federal rules restrict any use of the information to criminally investigate or prosecute any alcohol or drug abuse patient.[facility] HospitalIn the event this information is protected by the Federal Confidentiality of Alcohol and Drug Abuse Patient Records regulations: The Federal rules restrict any use of the information to criminally investigate or prosecute any alcohol or drug abuse patient.[facility] HospitalIn the event this information is protected by the Federal Confidentiality of Alcohol and Drug Abuse Patient Records regulations: The Federal rules restrict any use of the information to criminally investigate or prosecute any alcohol or drug abuse patient.[facility] HospitalIn the event this information is protected by the Federal Confidentiality of Alcohol and Drug Abuse Patient Records regulations: The Federal rules restrict any use of the information to criminally investigate or prosecute any alcohol or drug abuse patient.[facility] HospitalIn the event this information is protected by the Federal Confidentiality of Alcohol and Drug Abuse Patient Records regulations: The Federal rules restrict any use of the information to criminally investigate or prosecute any alcohol or drug abuse patient.[facility] HospitalIn the event this information is protected by the Federal Confidentiality of Alcohol and Drug Abuse Patient Records regulations: The Federal rules restrict any use of the information to criminally investigate or prosecute any alcohol or drug abuse patient.[facility] HospitalIn the event this information is protected by the Federal Confidentiality of Alcohol and Drug Abuse Patient Records regulations: The Federal rules restrict any use of the information to criminally investigate or prosecute any alcohol or drug abuse patient.[facility] HospitalIn the event this information is protected by the Federal Confidentiality of Alcohol and Drug Abuse Patient Records regulations: The Federal rules restrict any use of the information to criminally investigate or prosecute any alcohol or drug abuse patient.[facility] HospitalIn the event this information is protected by the Federal Confidentiality of Alcohol and Drug Abuse Patient Records regulations: The Federal rules restrict any use of the information to criminally investigate or prosecute any alcohol or drug abuse patient.[facility] HospitalIn the event this information is protected by the Federal Confidentiality of Alcohol and Drug Abuse Patient Records regulations: The Federal rules restrict any use of the information to criminally investigate or prosecute any alcohol or drug abuse patient.[facility] HospitalIn the event this information is protected by the Federal Confidentiality of Alcohol and Drug Abuse Patient Records regulations: The Federal rules restrict any use of the information to criminally investigate or prosecute any alcohol or drug abuse patient.[facility] HospitalIn the event this information is protected by the Federal Confidentiality of Alcohol and Drug Abuse Patient Records regulations: The Federal rules restrict any use of the information to criminally investigate or prosecute any alcohol or drug abuse patient.[facility] HospitalIn the event this information is protected by the Federal Confidentiality of Alcohol and Drug Abuse Patient Records regulations: The Federal rules restrict any use of the information to criminally investigate or prosecute any alcohol or drug abuse patient.[facility] HospitalIn the event this information is protected by the Federal Confidentiality of Alcohol and Drug Abuse Patient Records regulations: The Federal rules restrict any use of the information to criminally investigate or prosecute any alcohol or drug abuse patient.[facility] HospitalIn the event this information is protected by the Federal Confidentiality of Alcohol and Drug Abuse Patient Records regulations: The Federal rules restrict any use of the information to criminally investigate or prosecute any alcohol or drug abuse patient.[facility] HospitalIn the event this information is protected by the Federal Confidentiality of Alcohol and Drug Abuse Patient Records regulations: The Federal rules restrict any use of the information to criminally investigate or prosecute any alcohol or drug abuse patient.[facility] HospitalIn the event this information is protected by the Federal Confidentiality of Alcohol and Drug Abuse Patient Records regulations: The Federal rules restrict any use of the information to criminally investigate or prosecute any alcohol or drug abuse patient.[facility] HospitalIn the event this information is protected by the Federal Confidentiality of Alcohol and Drug Abuse Patient Records regulations: The Federal rules restrict any use of the information to criminally investigate or prosecute any alcohol or drug abuse patient.[facility] HospitalIn the event this information is protected by the Federal Confidentiality of Alcohol and Drug Abuse Patient Records regulations: The Federal rules restrict any use of the information to criminally investigate or prosecute any alcohol or drug abuse patient.[facility] HospitalIn the event this information is protected by the Federal Confidentiality of Alcohol and Drug Abuse Patient Records regulations: The Federal rules restrict any use of the information to criminally investigate or prosecute any alcohol or drug abuse patient.[facility] HospitalIn the event this information is protected by the Federal Confidentiality of Alcohol and Drug Abuse Patient Records regulations: The Federal rules restrict any use of the information to criminally investigate or prosecute any alcohol or drug abuse patient.[facility] HospitalIn the event this information is protected by the Federal Confidentiality of Alcohol and Drug Abuse Patient Records regulations: The Federal rules restrict any use of the information to criminally investigate or prosecute any alcohol or drug abuse patient.[facility] HospitalIn the event this information is protected by the Federal Confidentiality of Alcohol and Drug Abuse Patient Records regulations: The Federal rules restrict any use of the information to criminally investigate or prosecute any alcohol or drug abuse patient.[facility] HospitalIn the event this information is protected by the Federal Confidentiality of Alcohol and Drug Abuse Patient Records regulations: The Federal rules restrict any use of the information to criminally investigate or prosecute any alcohol or drug abuse patient.[facility] HospitalIn the event this information is protected by the Federal Confidentiality of Alcohol and Drug Abuse Patient Records regulations: The Federal rules restrict any use of the information to criminally investigate or prosecute any alcohol or drug abuse patient.[facility] HospitalIn the event this information is protected by the Federal Confidentiality of Alcohol and Drug Abuse Patient Records regulations: The Federal rules restrict any use of the information to criminally investigate or prosecute any alcohol or drug abuse patient.[facility] HospitalIn the event this information is protected by the Federal Confidentiality of Alcohol and Drug Abuse Patient Records regulations: The Federal rules restrict any use of the information to criminally investigate or prosecute any alcohol or drug abuse patient.[facility] HospitalIn the event this information is protected by the Federal Confidentiality of Alcohol and Drug Abuse Patient Records regulations: The Federal rules restrict any use of the information to criminally investigate or prosecute any alcohol or drug abuse patient.[facility] HospitalIn the event this information is protected by the Federal Confidentiality of Alcohol and Drug Abuse Patient Records regulations: The Federal rules restrict any use of the information to criminally investigate or prosecute any alcohol or drug abuse patient.[facility] HospitalIn the event this information is protected by the Federal Confidentiality of Alcohol and Drug Abuse Patient Records regulations: The Federal rules restrict any use of the information to criminally investigate or prosecute any alcohol or drug abuse patient.[facility] HospitalIn the event this information is protected by the Federal Confidentiality of Alcohol and Drug Abuse Patient Records regulations: The Federal rules restrict any use of the information to criminally investigate or prosecute any alcohol or drug abuse patient.[facility] HospitalIn the event this information is protected by the Federal Confidentiality of Alcohol and Drug Abuse Patient Records regulations: The Federal rules restrict any use of the information to criminally investigate or prosecute any alcohol or drug abuse patient.[facility] HospitalIn the event this information is protected by the Federal Confidentiality of Alcohol and Drug Abuse Patient Records regulations: The Federal rules restrict any use of the information to criminally investigate or prosecute any alcohol or drug abuse patient.[facility] Reason for Visit (unrecogniz ed section and content) Reason Comments Consult Specialty Diagnoses / Procedures Referred By Cassandra mccauley Referred To Contact Urology / UROLOGY Diagnoses Renal mass renal mass Procedures OFFICE/OUTPATIENT NEW MODERATE MDM 45 MINUTES NEW UROL Self Bing Arvizu MD [address] [place] [address] Phone: tel: fax: Referral ID Status Reason Start Date Expiration Date Visits Re quested Visits Authorized [id number] Closed 01/03/2025 10/01/2025 1 1 Reason Comments REnal Biopsy Reason Comments BIOPSY APPOINTMENT Reason Comments Pre-Op Visit Specialty Diagnoses / Procedures Referred By Cassandra mccauley Referred To Contact Anesthesiology / ANESTHESIOLOGY Diagnoses DOS 02/27 ROBOTIC LAPAROSCOPIC NEPHRECTOMY PARTIAL [13782] - Abdomen quadrant upper - Left Procedures COMPLETE PACC Bing Arvizu MD [address] [place] [address] Phone: tel: fax: 2, [facility] [address] [place] [address] Phone: tel:[phone] Referral ID Status Reason Start Date Expiration Date V isits Requested Visits Authorized [id number] New Request 02/07/2025 05/08/2025 1 1 Reason [...] [place] [address] [place] [address] Phone: tel: Ernesto Phoenix MD [address] [place] [address] Phone: tel: fax: Referral ID Status Reason Start Date Expiration Date Visits Re quested Visits Authorized [id number] Closed 03/17/2025 10/01/2025 1 1 Reason Comments First Time Treatment Education Specialty Diagnoses / Procedures Referred By Contac t Referred To Contact HEMATOLOGY/ONCOLOGY Diagnoses Examination Chemo ed Keytruda Pt qwil be done with Pet scan Around 10:45am Procedures OFFICE/OUTPATIENT ESTABLISHED MOD MDM 30 MIN CHEMO EDUCATION Ernesto Phoenix MD [address] [place] [address] Phone: tel: fax: Valerie Mosqueda, RN [address] [facility] [place] [address] Phone: tel: Referral ID Status Reason Start Date Expiration Date Visits Re quested Visits Authorized [id number] Closed 04/01/2025 10/01/2025 1 1 Reason Comments Radiology NM Specialty Diagnoses / Procedures Referred By Contac t Referred To Contact MOLECULAR & FUNCTIONAL IMAGING Diagnoses Renal cell carcinoma of left kidney (HCC) Procedures NM PET/CT SKULL-THIGH INITIAL PET IMAGING CT ATTENUATION SKULL BASE MID-THIGH Ernesto Phoenix MD [address] [place] [address] Phone: tel: fax: Molecular Imaging [address] [place] [address] Phone: tel: Referral ID Status Reason Start Date Expiration Date V isits Requested Visits Authorized [id number] Closed Auto-Generate d Referral 04/01/2025 04/17/2026 1 [...] kidney (HCC) Procedures CONSULT TO HEMATOLOGY/ONCOLOGY OFFICE/OUTPATIENT [facility] MDM 60 MINUTES Ernesto Phoenix MD [address] [place] [address] [place] [address] Phone: tel: fax: Hematology/Oncology [address] [place] [address] Phone: tel: Referral ID Status Reason Start Date Expiration Date V isits Requested Visits Authorized [id number] Closed PCP Requested Referral 04/08/2025 04/07/2026 1 [...] t Referred To Contact Nutrition / NUTRI [facility] Diagnoses Renal cell carcinoma of left kidney (HCC) Renal cell carcinoma of left kidney (HCC) [C64.2] Procedures SYNCHRONOUS AUDIO-ONLY VISIT EST HIGH MDM 40 MIN PROVIDER SPECIALTY PHONE CALL [facility] [address] [place] [address] Phone: tel: Yesica Calderno, RD [address] [place] [address] Phone: tel: Referral ID Status Reason Start Date Expiration Date Visits Re quested Visits Authorized [id number] Closed 04/17/2025 10/01/2025 1 1 Reason Comments Care Coordination Medication question Reason Comments Care Coordination Treatment prep Reason Comments Care Coordination Medication update Reason Comments Renal Cell Cancer 1 week follow up Specialty Diagnoses / Procedures Referred By Cassandra t Referred To Contact Hematology/Oncology / HEMATOLOGY/ONCOLOGY Diagnoses 1 week followup with lab/ Tox check Procedures EST PATIENT Ernesto Phoenix MD [address] [place] [address] [place] [address] Phone: tel: fax: Ernesto Phoenix MD [address] [place] [address] [place] [address] Phone: tel: fax: Referral ID Status Reason Start Date Expiration Date V isits Requested Visits Authorized [id number] Authorized 05/16/2025 10/01/2025 99 99 Reason Comments Medication Assistance Program [facility] drug application approved FOR RECORDS PERTAINING TO [...] BE BASED ON THE PRIMARY CLINICAL RECORDS. [facility]. provides no warranty or guarantee of the accuracy or completeness of information in this document.
[2025-05-27 08:17] LABS: Albumin Level 3.2 g/dL (3.4-5.0); Anion Gap 11.5; Blood Urea Nitrogen 22.0 mg/dL (7.0-18.0); Calcium 8.7 mg/dL (8.5-10.1); Carbon Dioxide 29.6 mmol/L (21.0-32.0); Chloride 103 mmol/L (98-107); Estimated GFR (African America 37 (>=60 mL/min/1.73m^2); Estimated GFR (Non-African Ame 30 (>=60 mL/min/1.73m^2); Glucose 88 mg/dL (74-106); Potassium 5.1 mmol/L (3.5-5.1); Sodium 139 mmol/L (136-145)
== END 2025-05-27 07:16 | disposition home or self-care (01) ==
LOC: LAB 07:17
PROVIDERS: PCP Nurse Practitioner Family; Visit Provider Internal Medicine Nephrology
DX: N18.4 Chronic kidney disease, stage 4 (severe) (principal)
CPT/HCPCS: 36415; 80069

== ENCOUNTER 2025-06-21 07:56 | Outpatient (OUT) | payer OTHER, SELFPAY ==
--- OUTSIDE RECORDS SUMMARY | 2025-06-09 15:40 | XMS_ITS | Encounter Summary ---
Author Organization [facility] Address [address] [place] [address] Care Team Providers Care Card Puncher Name Role Phone Jessica Murphy CNP Primary Care Provider + 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 RN Unavailable [phone] Ernesto Phoenix MD Unavailable + Gerald Young MD Unavailable + Madelin Mc RN Unavailable Unavailable Myrtle Holland Unavailable Unavailable Yesica Calderon RD Unavailable Source Comments In the event this information is protected by the Federal Confidentiality of Alcohol and Drug AbusePatient Records regulations: The Federal rules restrict any use of the information to criminally investigate or prosecute any alcohol or drug abuse patient.[facility] Reason for Referral * Outpatient Procedure (Routine) - New Request Specialty Diagnoses / Procedures Referred By Contac t Referred To Contact [facility] Diagnoses Renal cell carcinoma of left kidney (HCC) Procedures US LEG VEIN DVT [facility] DUP-SCAN XTR VEINS COMPLETE BILATERAL STUDY Ernesto Phoenix MD [address] [place] [address] [place] [address] Phone: tel: fax: [facility] [employer] [address] [place] [address] Referral ID Status Reason Start Date Expiration Date Visits Requested Visits Authorized [id number] New Request Auto-Generat ed Referral 06/09/2025 06/09/2026 1 1 Reason for Visit * Consult, Test, Treat (Routine) - Authorized Specialty Diagnoses / Procedures Referred By Contac t Referred To Contact Hematology/Oncology / HEMATOLOGY/ONCOLOGY Diagnoses follow up Procedures EST PATIENT WILY [address] [place] [address] [place] [address] Phone: tel: Ernesto Phoenix MD [address] [place] [address] [place] [address] Phone: tel: fax: Referral ID Status Reason Start Date Expiration Date V isits Requested Visits Authorized [id number] Authorized 06/09/2025 10/01/2025 99 99 Encounter Details Date Type Department Care Team (Latest Contact Info) Description 06/09/2025 3:40 PM EDT Visit (SP) Office Hematology/Oncology [address] [place] [address] [place] [address] Ernesto Phoenix MD [address] [place] [address] [place] [address] Renal cell carcinoma of left kidney (HCC) (Primary Dx); Shortness of breath Social History Tobacco Use Types Packs/Day Years Used Date Smoking Tobacco: Never Smokeless Tobacco: Never Alcohol Use Standard Drinks/Week Comments Yes 0 (1 standard drink = 0.6 oz pur e alcohol) once a year, if that PHQ-2 Answer Date Recorded PHQ-2 score 0 05/15/2025 Area Deprivation Index Answer Date Roland rded National Score (1-100), lower number is lower ri sk 78 01/03/2025 State Score (1-10), lower number is lower risk 6 01/03/2025 Data from: https://www.neighborhoodatlas.medicine.[facility].edu/. Last address used for calculation [address] [facility] 01/03/2025 Sex and Gender Information Value Date Recorded Sex Assigned at Male 03/02/2025 11:28 PM EDT Legal Sex Male 8:56 AM EDT Gender Identity Male 03/02/2025 11:28 PM EDT Sexual Orientation Straight 03/02/2025 11 :28 PM EDT documented as of this encounter Last Filed Vital Signs Vital Sign Reading Time Taken Comments Blood Pressure 187/93 06/09/2025 3:22 PM EDT Pulse 53 06/09/2025 3:22 PM EDT Temperature 36.3 C (97.4 F) 06/09/2025 3:22 PM EDT Respiratory Rate 16 06/09/2025 3:22 PM EDT Oxygen Saturation 97% 06/09/2025 3:22 PM EDT Inhaled Oxygen Concentration - - Weight 127 kg (279 lb 15.8 oz) 06/09/2025 3:22 P M EDT Height 178 cm (5' 10.08 ) 06/09/2025 3:22 PM EDT Body Mass Index 40.08 06/09/2025 3:22 PM EDT documented in this encounter Functional [...] * Patient Instructions* Ernesto Phoenix MD - 06/09/2025 3:59 PM EDT Ordered US doppler to r/o DVT Ordered CXR Urine test today Lisinopril sent to pharmacy F/u next week as scheduled documented in this encounter Progress Notes * Ernesto Phoenix MD - 06/09/2025 3:19 PM EDT Images from the original note were not included. PATIENT NAME: Skyler Stokes CLINIC NO.: [id number] ATTENDING PHYSICIAN: Ernesto Phoenix MD DATE OF SERVICE: 06/09/[address] Rivera Arvizu [address] [facility] [address] thank you for referring Skyler Stokes for an opinion regarding Kidney cancer. Some of the elements of this note have been copied from my previous progress note dated 05/30/25. All the information has been reviewed carefully. CHIEF COMPLAINT: Kidney cancer HPI: Skyler Stokes [...] unusual findings. Doing well - Works in [employer] room. - No smoking - No alcohol. - No family h/o cancer. - No major complaints. 04/07/25: - PET scan (04/01/25)- LÁZARO DISEASE: Metabolically active enlarged left para- aortic retroperitoneal metastatic node. METASTATIC DISEASE: No metabolically [...] appt in june. - Started lasix on Monday05/30/25: - Doing well - No major complaints. - Remains on lenvatinib - Stopped lasix. - Stopped metformin and started glipizide. 06/09/25: - C/o Shortness of Breath and leg swelling - Nephrology ordered lasix - C/o mild erythematous rash on legs. - Stopped norvasc due to headache and Shortness of Breath Current Outpatient Medications Medication Sig metoprolol tartrate, short acting, (LOPRESSOR) 100 mg tablet Take 0.5 tablets by mouth two times a day. amLODIPine (NORVASC) 2.5 mg tablet Take 1 tablet by mouth once daily. SPS, WITH SORBITOL, 15-20 gram/60 mL susp [...] every 6 hours as needed for pain. dutasteride (AVODART) 0.5 mg capsule Take 0.5 mg by mouth once daily. FLUoxetine (PROZAC) 10 mg capsule Take 10 [...] : Deferred LABS: Glucose (mg/dL) Date Value 05/30/2025 105 Potassium (mmol/L) Date Value 05/30/2025 4.6 Sodium (mmol/L) Date Value 05/30/2025 137 Chloride (mmol/L) Date Value 05/30/2025 101 CO2 (mmol/L) Date Value 05/30/2025 26 Creatinine (mg/dL) Date Value 05/30/2025 2.10 BUN (mg/dL) Date Value 05/30/2025 26 Anion Gap (mmol/L) Date Value 05/30/2025 10 Calcium, Total (mg/dL) Date Value 05/30/2025 9.1 Protein, Total (g/dL) Date Value 05/30/2025 6.8 Albumin (g/dL) Date Value 05/30/2025 3.8 Bilirubin, Total (mg/dL) Date Value 05/30/2025 0.3 Alkaline Phosphatase (U/L) Date Value 05/30/2025 82 AST (U/L) Date Value 05/30/2025 15 ALT (U/L) Date Value 05/30/2025 10 WBC Date Value Ref Range Status 05/30/2025 7.72 3.70 - 11.00 k/uL Final RBC Date Value Ref Range Status 05/30/2025 4.13 (L) 4.20 - 6.00 m/uL Final Hemoglobin Date Value Ref Range Status 05/30/2025 10.9 (L) 13.0 - 17.0 g/dL Final Hematocrit Date Value Ref Range Status 05/30/2025 34.3 (L) 39.0 - 51.0 % Final MCV Date Value Ref Range Status 05/30/2025 83.1 80.0 - 100.0 fL Final MCH Date Value Ref Range Status 05/30/2025 26.4 26.0 - 34.0 pg Final MCHC Date Value Ref Range Status 05/30/2025 31.8 30.5 - 36.0 g/dL Final RDW-CV Date Value Ref Range Status 05/30/2025 17.9 (H) 11.5 - 15.0 % Final Platelet Count Date Value Ref Range Status 05/30/2025 166 150 - 400 k/uL Final MPV Date Value Ref Range Status 05/30/2025 9.0 9.0 - 12.7 fL Final Abs Neut Date Value Ref Range Status 05/30/2025 5.83 1.45 - 7.50 k/uL Final Lymphocytes % Date Value Ref Range Status 05/30/2025 13.9 % Final Abs Lymph Date Value Ref Range Status 05/30/2025 1.07 1.00 - 4.00 k/uL Final Monocytes % Date Value Ref Range Status 05/30/2025 7.4 % Final Abs Polk Date Value Ref Range Status 05/30/2025 0.57 <0.87 k/uL Final Abs Eosin Date Value Ref Range Status 05/30/2025 0.16 <0.46 k/uL Final Basophils % Date Value Ref Range Status 05/30/2025 0.6 % Final Abs Baso Date Value Ref Range Status 05/30/2025 0.05 <0.11 k/uL Final PATH: SURGICAL PATHOLOGY: [id number] Order: [id number] Collected 02/27/2025 11:37 AM Status: Final result [...] showed Metabolically active enlarged left para-aortic retroperitoneal metastaticnode measuring 1.7 x 1.5 cm. - MRI brain is unremarkable. - Initial plan was to start him on adjuvant keytruda but given the PET positive left para aortic metastatic retroperitoneal lymph node and aggressive histology of the nephrectomy specimen, We will doIO/TKI. - Seen by on 04/09/25. Recommended Keytruda Lenvatinib. 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 Renal cell carcinoma of left kidney (HCC) - ICD9: 189.0, ICD10: C64.2 - C/o Shortness of Breath and leg swelling - Ordered doppler to r/o DVT - Ordered CXR - He stopped Lenvatinib on 06/02/25. Advised him to resume lenvatinib from today - Nephrology prescribed lasix for leg swelling - Lisinopril prescription sent to pharmacy for HTN - Repeat urine protein/creatinine ratio - Scheduled for PET scan next week - F/u next week. Dear Dr. Rivera Arvizu [address] [facility] [address] thank you for allowing me to participate in [facility], if there areany questions or concerns please do not hesitate to contact me at the number below. I spent a total of 20 minutes on the date of the service which included preparing to see the patient, [id number] patient care, completing clinical documentation, obtaining and/or reviewing separately obtained history, performing a medically appropriate examination, counseling and educating the pat ient/family/caregiver, ordering medications, tests, or procedures, communicating with other HCPs (not separately reported), independently interpreting results (not separately reported), communicatingresults to the patient/family/caregiver, and care coordination (not separately reported). Ernesto Phoenix MD. Hematology/Medical Oncology [facility] [phone] CC: documented in this encounter Plan of Treatment Upcoming Encounters Date Type Department Care Team (Latest Contact Info) Description 07/11/2025 9:00 AM EDT Office Visit [facility] [address] [place] [address] LABS 07/11/2025 9:20 AM EDT Visit (SP) Office Hematology/Oncology [address] [place] [address] Ernesto Phoenix MD [address] [place] [address] Pet scan and lab 07/11/2025 9:40 AM EDT [facility] Hematology/Oncology [address] [place] [address] Pet scan and lab 07/30/2025 2:30 PM EDT [facility] Hematology/Oncology [address] [place] [address] Gerald Young MD [address] [place] [address] pt req virtual appointment after scans due to work schedule and treatment dates Scheduled Orders Name Type Priority Associated Diagnoses Orde r Schedule US LEG VEIN DVT [facility] Vascular Lab Routine Renal cell carcinoma of left kidney (HCC) 1 Occurrences starting 06/09/2025 until 06/09/2026 XR CHEST 2V FRONTAL/LAT Radiology Routine Renal cell carcinoma of left kidney (HCC) Shortness of breath 1 Occurrences starting 06/09/2025 until 07/09/2026 documented as of this encounter Results * (ABNORMAL) PROTEIN / CREATININE RATIO (06/09/2025 4:02 PM EDT) Protein, Urine Random 38(H) 0 - 20 mg/dL 06/10/2025 9:54 AM EDT [facility] Creatinine, Ur Random (UCRR) 31.2 20.0 - 300.0 mg/dL 06/10/2025 9:54 AM EDT [facility] Protein/Creat Ratio 1.22(H) <0.15 mg/mg 06/10/2025 9:54 AM EDT [facility] Comment: Adult Proteinuria Categories: <0.15 mg/mg is considered normal to mildly increased 0.15 - 0.50 mg/mg is considered moderately increased >0.50 mg/mg is considered severely increased KDIGO. (2013). KDIGO 2012 Clinical Practice Guideline for the Evaluation and Management of Chronic Kidney Disease. Official Journal of the International Society of Nephrology, 3(1), 1-150. Urine URINE SPECIMEN / Unknown Non Blood / Unknown 06/09/2025 4:02 PM EDT 06/09/2025 4:02 PM EDT us Ernesto Phoenix MD LABORATORY Final Res ult [facility] [address] [facility] Desk [address] [address], documented in this encounter Visit Diagnoses Diagnosis Renal cell carcinoma of left kidney (HCC)- Primary Shortness of breath documented in this encounter Care Teams Card Puncher Relationship Specialty Start Date End Date Jessica Murphy, PRIVATE EQUITY ANALYST [address] [place] [address] PCP - General Internal Medicine 02/07/25 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 RN [address] [place] [address] Specialty Monogram Machine Operator Hematology/Oncology 03/28/25 Ernesto Phoenix MD [address] [place] [address] Physician Hematology/Oncology 03/28/25 [place] [address] [place] [address] Physician Hematology 04/09/25 Madelin Mc, RN Specialty Monogram Machine Operator Hematology/Oncology 04/09/25 Myrtle Holland LSW Burner Technician 04/11/[address] [place] [address] Nutrition 04/17/25 documented as of this encounter
--- OUTSIDE RECORDS SUMMARY | 2025-06-09 20:56 | XMS_ITS | Continuity of Care Document ---
Author Organization [facility] Address [address] [place] [address] Phone Care Team Providers Care Shot Tube Machine Tender Name Role Phone Jessica MurphyC Primary Care Provider Felton Urbina MD Attending Provider Ernesto Phoenix MD Attending Provider [phone] Care Teams Patient Care Team Team Status: Active Member Role Status Dates Jessica Murphy NP-C Primary Care Provider Active Visit Care Team Team Status: Inactive Member Role Status Dates Jessica Murphy NP-C Primary Care Provider Active Start: April 22, 2025 End: April 22, 2025 Felton Urbina MD Attending Provider Active Star t: April 22, 2025 End: April 22, 2025 Visit Care Team Team Status: Active Member Role Status Dates Felton Urbina MD Attending Provider Active Star t: May 27, 2025 Jessica Murphy NP-Rodolfo Primary Care Provider Active Start: May 27, 2025 Visit Care Team Team Status: Inactive Member Role Status Dates Jessica Murphy NP-C Primary Care Provider Active Start: June 09, 2025 End: June 09, 2025 Ernesto Phoenix MD Attending Provider Active Start: June 09, 2025 End: June 09, 2025 Chief Complaint and Reason for Visit Chief Complaint Admit Date CKD 3 April 22, 2025 3:43 pm R60.0 June 09, 2025 4:40pm Reason for Visit Admit Date Anemia of renal disease April 22, 2025 3:43pm Chronic kidney disease, stage IV (severe ) Darlene 22nd, 2025 3:43pm Diabetic nephropathy April 22, 2025 3:4 3pm History of nephrectomy, left April 22, 2025 3:43pm Hypertensive nephropathy April 22, 2025 3:43pm Hyperuricemia April 22, 2025 3:43 pm Allergies, Adverse Reactions, Alerts Allergen Type Severity Reaction Last Updated Verified Status tamsulosin Allergy Unknown Dizziness April 22, 2025 9:37am Yes Active Social History Smoking Status Status Start Date End Date Date of Observa tion Never smoked tobacco (finding) April 22, 2025 3:54pm Observation Status Observation Response Date of Response Legal Sex Male (finding) Sex Assigned At Male 1960 Family History Relationship Condition Age at Onset Recorded Date/T sofie mother Dementia Unknown father Cerebrovascular accident (CVA) Unknown Problems Active Problems Medical Problem Onset Date Status History of nephrectomy, left Unknown Act amy Chronic kidney disease, stage IV (severe) Unknow n Active Hyperuricemia Unknown Active Anemia of renal disease Unknown Active Diabetic nephropathy Unknown Active Hypertensive nephropathy Unknown Active Medications Medication Status Dose Units Route Directions Qty Days St art Date Stop Date End Date Instructions Adherence Furosemide (Lasix) 40 mg tablet Active 40 MG PO Twice daily 60 May 09, 2025 12:00a m Unknown Metformin 500 mg tablet Active 500 MG PO Twice daily April 22, 2025 12:00a m Unknown Acetaminoph en (Tylenol) 325 mg tablet Active 325 MG PO Every 6 hours as needed April 22, 2025 12:00a m Unknown Metoprolol Tartrate 100 mg tablet Active 100 MG PO Twice daily April 22, 2025 12:00a m Unknown Spironolact one 25 mg tablet Discont inued 25 MG PO Twice daily April 22, 2025 12:00a m Augus t 2024 11:50 am Fluoxetine (Prozac) 10 mg capsule Active 10 MG PO Daily April 22, 2025 12:00a m Unknown Docusate Sodium (Colace) 100 mg capsule Active 100 MG PO Daily April 22, 2025 12:00a m Unknown Allopurinol 300 mg tablet Active 300 MG PO Twice daily April 22, 2025 12:00a m Unknown Dutasteride (Avodart) 0.5 mg capsule Active 0.5 MG PO Daily April 22, 2025 12:00a m Unknown Pembrolizum ab (Keytruda) 25 mg/mL solution Active 200 MG IV EVERY 3 WEEKS April 22, 2025 12:00a m administer over 30 mins Unknown Lenvatinib (Lenvima) 10 mg/day (10 mg x 1) capsule Active 10 MG PO Daily April 22, 2025 12:00a m Unknown Procedures Procedure Date Performed Status US venous duplex LE BI June 09, 2025 4:49p m active XR chest 2V* June 09, 2025 4:50pm compl eted Relevant Diagnostic Tests and/or Laboratory Data Laboratory Results Test Collection Date/Time Result Date/Time Result Interpretation Reference Range Result Comment Performing Site Anion Gap May 27, 2025 7:29am May 27, 2025 7:29am 11.5 Albumin May 27, 2025 7:29am May 27, 2025 7:29am 3.2 g/dL Below low normal 3.4-5.0 BUN/Creatini ne Ratio May 27, 2025 7:29am May 27, 2025 7:29am 10.0 Blood Urea Nitrogen May 27, 2025 7:29am May 27, 2025 7:29am 22.0 mg/dL Above high normal 7.0-18.0 Calcium Level May 27, 2025 7:29am May 27, 2025 7:29am 8.7 mg/dL 8.5-10.1 Chloride Level May 27, 2025 7:29am May 27, 2025 7:29am 103 mmol/L 98-107 Carbon Dioxide Level May 27, 2025 7:29am May 27, 2025 7:29am 29.6 mmol/L 21.0-32.0 Creatinine May 27, 2025 7:29am May 27, 2025 7:29am 2.20 mg/dL Above high normal 0.70-1.30 Estimated GFR () May 27, 2025 7:29am May 27, 2025 7:29am 37 Below low normal >=60 mL/min/1.7 3m 2 Estimated GFR (Non- May 27, 2025 7:29am May 27, 2025 7:29am 30 Below low normal >=60 mL/min/1.7 3m 2 Glucose Level May 27, 2025 7:29am May 27, 2025 7:29am 88 mg/dL 74-106 Potassium Level May 27, 2025 7:29am May 27, 2025 7:29am 5.1 mmol/L 3.5-5.1 Sodium Level May 27, 2025 7:29am May 27, 2025 7:29am 139 mmol/L 136-145 Phosphorus Level May 27, 2025 7:29am May 27, 2025 7:29am 3.7 mg/dL 2.6-4.7 Diagnostic Imaging Reports Author Geovani Weeks [facility] Report Date/Time June 09, 2025 5:40pm [facility] [place] [address] [place] [address] XRay Report Signed Patient: Skyler Stokes MR#: [id number] : 1960 Acct:[id number] Age/Sex: 65 / M ADM Date: 5 Loc: Room: Type: [facility] Attending Dr: Ernesto Phoenix MD Copies to: Ernesto Phoenix MD~ Ordering Provider: Ernesto Phoenix MD Date of Service: 06/09/25 XR/XR chest 2V*: R60.0 PA AND LATERAL CHEST: CLINICAL HISTORY: Shortness breath 2 weeks, dry cough COMPARISON: None FINDINGS: Prominent cardiomediastinal. Lungs are clear. No effusion or pneumothorax. XR/XR chest 2V* IMPRESSION: NO ACUTE CARDIOPULMONARY ABNORMALITY. Impression dictated by: Geovani Weeks M.D. 06/09/2025 5:40 PM Dictation Location: [place] [address] Transcribed By: [facility] 06/09/251739 Dictated By: Geovani Weeks MD 06/09/25 173 Signed By: <Electronically signed by Geovani Weeks MD in OV> 06/09/25 174 Vital Signs Vital Reading Result Reference Range Collection Date/Time Height 72 [in_i] April 22, 2025 3:44pm Weight 119.74 kg April 22, 2025 3:44pm Heart Rate 45 /min 60-100 April 22, 2025 3:44pm Respiratory rate 16 /min 12-24 April 22, 2025 3:44pm Oxygen saturation by Pulse oximetry 98 % 95-10 0 April 22, 2025 3:44pm BP Systolic 151 mm[Hg] 100-140 April 22, 2025 3:44pm BP Diastolic 73 mm[Hg] 60-100 April 22, 2025 3:44pm BMI (Body Mass Index) 35.8 kg/m2 April 022024 3:44pm Advance Directives Advance Directive Response Recorded Date/ Time Advance Directives No April 09 4:13pm Insurance Providers Guarantor Melanie Wagoner Address [address] [place] [address] Contact Info. Home Phone: Payer Policy Id Subscriber's Name Subscriber Id Effectiv e Date Expiration Date [facility] unable to read card Melanie Wagoner unable to read card Encounters Encounter Location(s) Arrival/Admit Date Discharge /Depart Date Provider(s) Departed Physician/Prov ider Office Visit -[facility] [place] April 22, 2025 3:43pm April 22, 2025 4:23pm Felton Urbina MD Non-patient / Non-visit -[facility] May 27, 2025 7:29am Felton Urbina MD Departed Clinical -Ultrasound [facility] June 09, 2025 4:40pm June 09, 2025 4:41pm Ernesto Phoenix MD Recent Diagnosis Onset Date Admit Date Anemia of renal disease Unknown April 3:43pm Chronic kidney disease, stage IV (severe) Unknow n April 22, 2025 3:43pm Diabetic nephropathy Unknown April 22, 2025 3:43pm History of nephrectomy, left Unknown Apr 3:43pm Hypertensive nephropathy Unknown April 222024 3:43pm Hyperuricemia Unknown April 22, 2025 3:43pm Assessments Diagnosis Onset Date Resolution Status Admit Date Anemia of renal disease acute J joey 2024 3:43pm Chronic kidney disease, stag e IV (severe) acute April 22, 2025 3:43pm Diabetic nephropathy acute April 22, 2025 3:43pm History of nephrectomy, left acute April 22, 2025 3:43pm Hypertensive nephropathy acute April 22, 2025 3:43pm Hyperuricemia acute April 22, 2025 3:43pm Plan of Treatment Author Felton Marionkumarmarlon [facility] Authored April 22, 2025 4:22 pm Patient has CKD stage IV fro m left nephrectomy in addition to hypertensive and diabetic nephropathy at baseline. Creatinine up to 2.1 mg/dL following left nephrectomy. Patient at risk for worsening kidney function from Keytruda induced AIN. No recent UA. Explained the patient the necessity of keeping diabetes and blood pressure under good control. Blood pressure seems well-controlled. Will continue spironolactone hypertension and volume management. Instructed the patient to avoid NSAIDs completely. Will follow UA next visit. Will check spot protein urine protein creatinine ratio. Patient has recent diagnosis of left-sided nephrectomy with metastasis. Status post left radical nephrectomy. Currently on Keytruda and follows with hematology neurology clinic Blood pressure seems reasonably controlled with the current medication. Patient only metoprolol and spironolactone. Currently no fluid overload. Advised the patient to monitor blood pressure at home -Explained the patient the necessity of keeping that is under good control to preserve kidney function. Advised patient to reach out to his PCP to switch metformin to diabetic medication due to advanced CKD Last hemoglobin has been ranging between 9.2 to 10.0 g/dL. No active bleeding. Follows with hematology oncology clinic. Will check iron along with folate and vitamin B12 next visit Patient is on high-dose allopurinol 300 mg twice daily for history of gout. No more gout attack. Will check uric acid level next visit Future Tests Future scheduled test information is unavailable Pending Tests Test Name Ordered Date Scheduled Date US venous duplex LE BI June 09, 2025 4:50p m June 09, 2025 4:49pm Renal Function Panel April 22, 2025 4:19pm 3 Mo nths US renal BI April 22, 2025 4:19pm 3 Months Future Visits Future appointment information is unavailable Referrals to Other Providers Referral information is unavailable Future Procedures Procedure Name Ordered Date Scheduled Date Hemogram CBC Without Diff April 22, 2025 4:19pm 3 Months Iron and TIBC Profile April 22, 2025 4:19pm 3 M onths Ferritin April 22, 2025 4:19pm 3 Months Magnesium April 22, 2025 4:19pm 3 Months Protein Creat Ratio Ur Random April 22, 2025 4: 19pm 3 Months Parathyroid Hormone Intact April 22, 2025 4:19p m 3 Months Urinalysis April 22, 2025 4:19pm 3 Months Uric Acid April 22, 2025 4:19pm 3 Months Vit. B12/Folate Profile April 22, 2025 4:19pm 3 Months Vitamin D 25 Hydroxy Total April 22, 2025 4:19p m 3 Months Future Medications Future medication information is unavailable Patient Instructions Patient instructions are unavailable
--- OUTSIDE RECORDS SUMMARY | 2025-06-17 13:17 | XMS_ITS | Encounter Summary ---
Author Organization [facility] Address [address] [place], [place] [id number] Care Team Providers Care Adobe Ball Mixer Name Role Phone Jessica Murphy CNP Primary Care Provider + 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 RN Unavailable [phone] Ernesto Phoenix MD Unavailable + Gerald Young MD Unavailable [phone] Madelin Mc RN Unavailable Unavailable Myrtle Holland Unavailable Unavailable Yesica Calderon RD Unavailable Source Comments In the event this information is protected by the Federal Confidentiality of Alcohol and Drug AbusePatient Records regulations: The Federal rules restrict any use of the information to criminally investigate or prosecute any alcohol or drug abuse patient.[facility] Reason for Referral * Diagnostic Procedure Only (Routine) - Closed Specialty Diagnoses / Procedures Referred By Contac t Referred To Contact MOLECULAR & FUNCTIONAL IMAGING Diagnoses Renal cell carcinoma of left kidney (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) Procedures NM PET/CT SKULL-THIGH SUBSEQUENT PET IMAGING CT ATTENUATION SKULL BASE MID-THIGH Gerald Young MD [address] [place] [address] Phone: tel: fax: Molecular Imaging [address] [phone] Phone: tel: Referral ID Status Reason Start Date Expiration Date V isits Requested Visits Authorized [id number] Closed Auto-Generate d Referral 04/09/2025 05/09/2026 1 1 Reason for Visit * Diagnostic Procedure Only (Routine) - Closed Specialty Diagnoses / Procedures Referred By Contac t Referred To Contact MOLECULAR & FUNCTIONAL IMAGING Diagnoses Renal cell carcinoma of left kidney (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) Procedures NM PET/CT SKULL-THIGH SUBSEQUENT PET IMAGING CT ATTENUATION SKULL BASE MID-THIGH Gerald Young MD [address] [place] [address] Phone: tel: fax: Molecular Imaging [address] [place] [address] Phone: tel: Referral ID Status Reason Start Date Expiration Date V isits Requested Visits Authorized [id number] Closed Auto-Generate d Referral 04/09/2025 05/09/2026 1 1 Encounter Details Date Type Department Care Team (Latest Contact Info) Description 06/17/2025 1:17 PM EDT - 06/17/2025 11:59 PM EDT Hospital Encounter Radiology Pet CT [address] [place] [address] [place] [address] Renal cell carcinoma of left kidney (HCC) [C64.2] Discharge Disposition: Home Social History Tobacco Use Types Packs/Day Years [...] is lower risk 6 01/03/2025 Data from: https://www.neighborhoodatlas[facility]/. Last address used for calculation [address] [...] Trent Adler RN documented in this encounter Medications at Time of Discharge furosemide (LASIX) 40 mg tablet 06/07/2025 lisinopril (ZESTRIL) 5 mg tablet TAKE 1 TABLET BY MOUTH DAILY 90 tablet 06/10/2025 glipiZIDE 2.5 mg tablet TAKE 1 TABLET BY MOUTH DAILY 30 MINUTES BEFORE BREAKFAST metoprolol tartrate, short acting, (LOPRESSOR) 50 mg tablet Take 50 mg by mouth two times a day. TAKE WITH FOOD. SPS, WITH SORBITOL, 15-20 gram/60 mL susp suspension TAKE 60ML BY MOUTH FOR 1 DOSE 60 mL 05/12/2025 sennosides (SENNA LAX PO) Take by mouth. lenvatinib (LENVIMA) 10 mg/day (10 mg x 1) capsule Take 2 capsules by mouth once daily. 60 capsule 2 04/18/2025 9:20 AM EDT 04/09/2025 inulin (FIBER GUMMIES PO) Take 1 each by mouth two times a day. prochlorperazine (COMPAZINE) 10 mg tablet Take 1 tablet by mouth every 6 hours as needed. 100 tablet 2 04/18/2025 9:20 AM EDT 03/28/2025 ondansetron (ZOFRAN) 8 mg tablet Take 1 tablet by mouth every 8 hours as needed for nausea/vomiting . 90 tablet 2 04/18/2025 9:20 AM EDT 03/28/2025 docusate sodium (COLACE ORAL) Take 1 capsule by mouth two times a day. 03/14/2025 allopurinol (ZYLOPRIM) 300 mg tablet Take 300 mg by mouth two times a day. 09/07/2022 acetaminophen (TYLENOL) 325 mg tablet Take 2 tablets by mouth every 6 hours as needed for pain. 40 tablet 02/28/2025 3:04 PM EDT 02/28/2025 dutasteride (AVODART) 0.5 mg capsule Take 0.5 mg by mouth once daily. FLUoxetine (PROZAC) 10 mg capsule Take 10 mg by mouth once daily. documented as of this encounter Progress Notes * Syl Stubbs RN - 06/17/2025 1:30 PM EDT Radiology Service Progress Note DATE OF SERVICE: June 17, 2025 TIME: 1:40 PM PATIENT WEIGHT: [id number] PATIENT IDENTITY VERIFICATION COMPLETED USING TWO (2) [...] CREATININE: Creatinine Date Value Ref Range Status 06/09/2025 2.26 (H) 0.73 - 1.22 mg/dL Final 05/30/2025 2.10 (H) 0.73 - 1.22 mg/dL Final 05/16/2025 2.97 (H) 0.73 - 1.22 mg/dL Final Estimated Glomerular Filtration Rate Date Value Ref Range Status 06/09/2025 31 (L) >=60 mL/min/1.73m Final Comment: Estimated Glomerular Filtration Rate (eGFR) is calculated using the 2020 CKD-EPI creatinine equation. This equation utilizes serum creatinine, sex, and age as parameters. The creatinine assay has traceable calibration to isotope dilution- mass spectrometry. Refer to KDIGO guidelines for clinical interpretation. In patients with unstable renal function, e.g. those with acute kidney injury, the eGFRmay not accurately reflect actual GFR. P.O.C.T. RESULTS: POC done: Yes, See Lab Tab June 17, 2025 TREATMENT: N/A IV SITE: Ambulatory: A peripheral IV was started in the Right antecubital site with a Angio cath: 22 gauge. IV SITE APPEARANCE: Clean,Dry and Intact SIGNATURE: Syl Stubbs RN PATIENT NAME: Skyler Stokes DATE: June 17, 2025 TIME: 1:40 PM documented in this encounter Plan of Treatment Upcoming Encounters Date Type Department Care Team (Latest Contact Info) Description 07/11/2025 9:00 AM EDT Office Visit [facility] [address] [place] [address] LABS 07/11/2025 9:20 AM EDT Visit (SP) Office Hematology/Oncology [address] [place] [address] Ernesto Phoenix MD [address] [place] [address] Pet scan and lab 07/11/2025 9:40 AM EDT [facility] Hematology/Oncology [facility] [place] [address] Pet scan and lab 07/30/2025 2:30 PM EDT [facility] Hematology/Oncology [address] [place] [address] Gerald Young MD [address] [place] [address] pt req virtual appointment after scans due to work schedule and treatment dates documented as of this encounter Procedures Procedure Name Priority Date/Time Associated Diagnosis Comments NM PET/CT SKULL-THIGH SUBSEQUENT Routine 06/17/2025 3:24 PM EDT Renal cell carcinoma of left kidney (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) GLUCOSE, BLOOD (POC) Routine 06/17/2025 1:37 PM EDT documented in this encounter Results * NM PET/CT SKULL-THIGH SUBSEQUENT (06/17/2025 3:24 PM EDT) Anatomical Region Laterality Modality Nuclear Medicine , Nuclear Medicine 06/17/2025 3:24 PM EDT Narrative 06/17/2025 8:51 PM EDT * * *Final Report* * * DATE OF EXAM: Jun 17 2025 3:24PM NRN [id number] - NM PET/CT SKULL-THIGH SUBQ / PROCEDURE REASON: multiple diagnoses * * * * Physician Interpretation * * * * RESULT: EXAMINATION: BODY FDG PET-CT CLINICAL HISTORY: 65-year-old male with left renal cell carcinoma status post left robotic radical nephrectomy and retroperitoneal lymph node dissection, started on Lenvatinib. EXAM CATEGORY: Subsequent treatment strategy. TECHNIQUE: Radiopharmaceutical was administered intravenously [...] some pathology. * CT Dose-Length Product (DLP): 438 mGy*cm * CT Dose Reduction Employed: Yes * Blood glucose: 76 mg/dL * Injection site: Right Forearm-Antecubital * Injected activity: 15.5 mCi * Uptake Time: 57 minutes * Radiopharmaceutical: Q76-[id number] (FDG) COMPARISON: 04/01/2025 CORRELATION: Outside CT 12/14/2024 RESULT: REFERENCES: FDG uptake is used as a surrogate marker for glucose metabolism. All reported standardized uptake values represent maximum SUV (SUVmax) per body weight, unless otherwise specified. SUV reference values, as follows: * Blood Pool (Descending Aorta): SUVmax 1.8 previously 1.9, 3.1 previously 3.2 * Background Liver: SUVmax 3.1 previously 3.2; SUVmean 2.0 previously 2.3 Localizer Images: No additional findings. HEAD AND NECK: Head: No radiotracer avid lesion or mass effect in the imaged intracranial compartment. Aerodigestive Tract: No radiotracer avid lesion. Lymph Nodes: No radiotracer avid lymphadenopathy. Neck Soft Tissues: Right thyroid FDG avid nodule max 8.0 previously 3.7 CHEST: Lungs & Pleura: No radiotracer avid mass, nodule, or consolidation. Bilateral small pleural effusions. Lymph Nodes: No radiotracer avid lymphadenopathy. Mediastinum: No radiotracer avid mass. Cardiovascular: Blood pool activity. No pericardial effusion. Normal heart size. Mild coronary artery calcifications. Chest Wall: No radiotracer avid soft tissue lesion. Gynecomastia. ABDOMEN AND PELVIS: Hepatobiliary: No radiotracer avid lesion. No measurable mass. Spleen: No radiotracer avid lesion. No splenomegaly. Pancreas: No radiotracer avid lesion. Adrenals: No radiotracer avid nodule. Urinary Tract: Physiologic radiotracer excretion in the right renal collecting system and urinary bladder. No hydronephrosis. Stable right kidney cysts. Status post left nephrectomy with redemonstration of fluid collection/seroma in the surgical bed with mild peripheral uptake likely inflammatory. GI Tract: No radiotracer avid lesion. No bowel dilation. Peritoneum: No radiotracer avid lesion. No ascites. Lymph Nodes: Left parotid aortic lymph node less conspicuous as compared to prior 0.5 cm with SUV max 2.2 previously 1.7 cm with SUV max 6.3 (5:211). FDG avid periportal lesion likely lymphadenopathy more prominent as compared to prior 1.7 cm short axis with SUV max 5.9 previously 1.0 cm with SUV max 3.3 (5:179) Vasculature: Blood pool activity. Abdominal aortic atherosclerotic calcifications without aneurysm. Pelvic Organs: No radiotracer avid lesion. MUSCULOSKELETAL: Bones: No radiotracer avid lesion. No lytic or sclerotic lesion. Degenerative changes. Soft Tissues: No radiotracer avid lesion. IMPRESSION Since 04/01/2025, PRIMARY DISEASE SITE: * Status post left nephrectomy with persistent fluid collection/seroma in the surgical bed with mild peripheral activity likely inflammatory. KARIS DISEASE: * Interval improvement of left para-aortic, however progression of periportal FDG avid lymphadenopathy. METASTATIC DISEASE: * No metabolically active distant metastases. ADDITIONAL FINDINGS: * FDG avid right thyroid lobe for correlation with ultrasound. * New bilateral small pleural effusions. Transcribe Date/Time: Jun 17 2025 8:34P Dictated by: YURY MCCORMACK MD This examination was interpreted and the report reviewed and electronically signed by: YURY MCCORMACK MD on Jun 17 2025 8:49PM EST Thank you for allowing us to participate in the care of your patient. Should there be any questions regarding this interpretation, please call [phone]. If you are unable to reach us at the number above, please feel free to contact [facility] at [phone]. Procedure Note Provider, [facility] [place] - 06/17/2025 * * *Final Report* * * DATE OF EXAM: Jun 17 2025 3:24PM NRN [id number] - NM PET/CT SKULL-THIGH SUBQ / PROCEDURE REASON: multiple diagnoses * * * * Physician Interpretation * * * * RESULT: EXAMINATION: BODY FDG PET-CT CLINICAL HISTORY: 65-year-old male with left renal cell carcinoma status post left robotic radical nephrectomy and retroperitoneal lymph node dissection, started on Lenvatinib. EXAM CATEGORY: Subsequent treatment strategy. TECHNIQUE: Radiopharmaceutical was administered intravenously [...] some pathology. * CT Dose-Length Product (DLP): 438 mGy*cm * CT Dose Reduction Employed: Yes * Blood glucose: 76 mg/dL * Injection site: Right Forearm-Antecubital * Injected activity: 15.5 mCi * Uptake Time: 57 minutes * Radiopharmaceutical: W61-[id number] (FDG) COMPARISON: 04/01/2025 CORRELATION: Outside CT 12/14/2024 RESULT: REFERENCES: FDG uptake is used as a surrogate marker for glucose metabolism. All reported standardized uptake values represent maximum SUV (SUVmax) per body weight, unless otherwise specified. SUV reference values, as follows: * Blood Pool (Descending Aorta): SUVmax 1.8 previously 1.9, 3.1 previously 3.2 * Background Liver: SUVmax 3.1 previously 3.2; SUVmean 2.0 previously2.3 Localizer Images: No additional findings. HEAD AND NECK: Head: No radiotracer avid lesion or mass effect in the imaged intracranial compartment. Aerodigestive Tract: No radiotracer avid lesion. Lymph Nodes: No radiotracer avid lymphadenopathy. Neck Soft Tissues: Right thyroid FDG avid nodule max 8.0 previously 3.7 CHEST: Lungs & Pleura: No radiotracer avid mass, nodule, or consolidation. Bilateral small pleural effusions. Lymph Nodes: No radiotracer avid lymphadenopathy. Mediastinum: No radiotracer avid mass. Cardiovascular: Blood pool activity. No pericardial effusion. Normal heart size. Mild coronary artery calcifications. Chest Wall: No radiotracer avid soft tissue lesion. Gynecomastia. ABDOMEN AND PELVIS: Hepatobiliary: No radiotracer avid lesion. No measurable mass. Spleen: No radiotracer avid lesion. No splenomegaly. Pancreas: No radiotracer avid lesion. Adrenals: No radiotracer avid nodule. Urinary Tract: Physiologic radiotracer excretion in the right renal collecting system and urinary bladder. No hydronephrosis. Stable right kidney cysts. Status post left nephrectomy with redemonstration of fluid collection/seroma in the surgical bed with mild peripheral uptake likely inflammatory. GI Tract: No radiotracer avid lesion. No bowel dilation. Peritoneum: No radiotracer avid lesion. No ascites. Lymph Nodes: Left parotid aortic lymph node less conspicuous as compared to prior 0.5 cm with SUV max 2.2 previously 1.7 cm with SUV max 6.3 (5:211). FDG avid periportal lesion likely lymphadenopathy more prominent as compared to prior 1.7 cm short axis with SUV max 5.9 previously 1.0 cm with SUV max 3.3 (5:179) Vasculature: Blood pool activity. Abdominal aortic atherosclerotic calcifications without aneurysm. Pelvic Organs: No radiotracer avid lesion. MUSCULOSKELETAL: Bones: No radiotracer avid lesion. No lytic or sclerotic lesion. Degenerative changes. Soft Tissues: No radiotracer avid lesion. IMPRESSION Since 04/01/2025, PRIMARY DISEASE SITE: * Status post left nephrectomy with persistent fluid collection/seroma in the surgical bed with mild peripheral activity likely inflammatory. KARIS DISEASE: * Interval improvement of left para-aortic, however progression of periportal FDG avid lymphadenopathy. METASTATIC DISEASE: * No metabolically active distant metastases. ADDITIONAL FINDINGS: * FDG avid right thyroid lobe for correlation with ultrasound. * New bilateral small pleural effusions. Transcribe Date/Time: Jun 17 2025 8:34P Dictated by: YURY MCCORMACK MD This examination was interpreted and the report reviewed and electronically signed by: YURY MCCORMACK MD on Jun 17 2025 8:49PM EST Thank you for allowing us to participate in the care of your patient. Should there be any questions regarding this interpretation, please call [phone]. If you are unable to reach us at the number above, please feel free to contact [facility] at [phone]. us Gerald Young MD NM-PAMA Final Resu lt * GLUCOSE, BLOOD (POC) (06/17/2025 1:37 PM EDT) Pathologist [facility] Glucose, Point of Care 76 74 - 99 mg/dL [facility] Comment: Location:[facility], [address] [place] [address] , [place], [place], [address] The Accu-Chek Inform II glucose meter has [...] blood gas instrument) in the above situations. 06/17/2025 1:37 PM EDT us [facility] Provider POC TESTING Final Result [facility] [address] 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 documented in this encounter Care Teams Adobe Ball Mixer Relationship Specialty Start Date End Date Jessica Murphy CNP [address] [place] [address] PCP - General Internal Medicine 02/07/25 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 RN [address] [place] [address] Specialty Staff Command And Control Officer Hematology/Oncology 03/28/25 Ernesto Phoenix MD [address] [place] [address] Physician Hematology/Oncology 03/28/25 [place] [address] [place] [address] Physician Hematology 04/09/25 Madelin Mc RN Specialty Staff Command And Control Officer Hematology/Oncology 04/09/25 Myrtle Holland LSW Software Packager 04/11/[address] [place] [address] Nutrition 04/17/25 documented as of this encounter
--- OUTSIDE RECORDS SUMMARY | 2025-06-18 14:20 | XMS_ITS | Encounter Summary ---
Author Organization [facility] Address [address] [place] [address] Care Team Providers Care Superintendent Meters Name Role Phone Jessica Murphy DEEP Primary Care Provider [phone] Reason for Visit * Reason Comments New Patient Patient is here toda y for bradycardia, as a new patient to establish care with cardilology. Patient had recent Echo and holter monitor. Patient was taking Norvasc which caused him headaches and SOB no longer taking Bradycardia Hypertension Sleep Apnea Encounter Details Date Type Department Care Team (Late st Contact Info) Description 06/18/2025 2:20 PM EDT Office Visit 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) (CMS/HCC) (Primary Dx); Bradycardia Social History Tobacco Use Types Packs/Day Years Used Date Smoking Tobacco: Never Smokeless Tobacco: Never Tobacco Cessation:Counseling Given: Not Answered Alcohol Use Standard Drinks/Week Comments Yes 0 (1 standard drink = 0.6 oz pur e alcohol) Occasional Sex and Gender Information Value Date Recorded Sex Assigned at Male 06/09/2025 4:18 PM EDT Legal Sex Male 8:41 AM EDT Gender Identity Male 06/09/2025 4:18 PM EDT Sexual Orientation Heterosexual or Straight 05/2025 4:18 PM EDT documented as of this encounter Last Filed Vital Signs Vital Sign Reading Time Taken Comments Blood Pressure 178/87 06/18/2025 2:29 PM EDT Pulse 48 06/18/2025 2:29 PM EDT Temperature - - Respiratory Rate - - Oxygen Saturation 98% 06/18/2025 2:29 PM EDT Inhaled Oxygen Concentration - - Weight 121 kg (266 lb) 06/18/2025 2:29 PM EDT Height 182.9 cm (6') 06/18/2025 2:29 PM EDT Body Mass Index 36.08 06/18/2025 2:29 PM EDT documented in this encounter Progress Notes * Chaka Griffin MD - 06/18/2025 2:20 PM EDT Subjective Patient ID: Skyler Stokes is a 65 y.o. male who presents for New Patient (Patient is here today forbradycardia, as a new patient to establish care with cardilology. Patient had recent Echo and holter monitor. Patient was taking Norvasc which caused him headaches and SOB no longer taking), Bradycardia, Hypertension, and Sleep Apnea. 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 Kleber in press room. Found mass in L kidney in January, with some lymph nodes Has been treated with chemo. Remaining kidney working for two of them. Pulse rate is down to 45-48 and metoprolol reduced. Couldn't take norvasc due to headaches and SOB. BP better on lisinopril and metoprolol 50 daily, along with lasix daily. Cr 2.2 recently I personally reviewed recent Holter monitor strips: multiple sinus pauses during the day (6 pm example) over 2 seconds Denies dizziness passing out or blacking out. No LOC Is on lenvatinib (Keytruda) which can cause myocarditis Hypertension Associated symptoms include shortness of breath. Pertinent negatives include no chest pain. Review of Systems Respiratory: Positive for shortness of breath. Negative for chest tightness. Cardiovascular: Negative for chest pain. Gastrointestinal: Negative for anal bleeding. Neurological: Negative for dizziness, seizures and syncope. Psychiatric/Behavioral: Negative for confusion. Objective Visit Vitals BP 178/87 (BP Location: Left arm, Patient Position: Sitting) Pulse (!) 48 Physical Exam Constitutional: Appearance: Normal appearance. He is obese. Cardiovascular: Rate and Rhythm: Normal rate and regular rhythm. No extrasystoles are present. Chest Wall: PMI is not displaced. No thrill. Pulses: Carotid pulses are 2+ on the right side and 2+ on the left side. Radial pulses are 2+ on the right side and 2+ on the left side. Dorsalis pedis pulses are 2+ on the right side and 2+ on the left side. Posterior tibial pulses are 2+ on the right side and 2+ on the left side. Heart sounds: No systolic murmur is present. No diastolic murmur is present. Friction rub present. No gallop. Musculoskeletal: Right lower leg: No edema. Left lower leg: No edema. Neurological: General: No focal deficit present. Mental Status: He is alert and oriented to person, place, and time. Psychiatric: Mood and Affect: Mood normal. Behavior: Behavior normal. Thought Content: Thought content normal. 05/05/25 Echo: moderate LVH and normal LV function 03/11/25 EKG strip reviewed by me: normal Assessment/Plan Mr. Stokes has asymptomatic sinus pauses during sleep and some bradycardia which is asymptomatic. I have advised him that no treatment is needed unless he has symptoms of dizziness or lightheadedness. We also discussed blood pressure control and meds are limited due to CKD and bradycardia. We discussed swelling on amlodipine and will try low dose nifedipine extended release to see it that helps BPcontrol although risk of recurrent swelling is possible. Diagnosis Plan 1. 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 Bradycardia No orders of the defined types were placed in this encounter. No results found for this or any previous visit (from the past 36 hours). Follow up in about 3 weeks (around 07/09/2025) for Recheck. 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
--- OUTSIDE RECORDS SUMMARY | 2025-06-20 09:20 | XMS_ITS | Encounter Summary ---
Author Organization [facility] Address [address] [place], [place] [address] Care Team Providers Care Wall Taper Name Role Phone Jessica Murphy CNP Primary Care Provider + 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 RN Unavailable [phone] Ernesto Phoenix MD Unavailable + Gerald Young MD Unavailable + Madelin Mc RN Unavailable Unavailable Myrtle Holland Unavailable Unavailable Yesica Calderon RD Unavailable Source Comments In the event this information is protected by the Federal Confidentiality of Alcohol and Drug AbusePatient Records regulations: The Federal rules restrict any use of the information to criminally investigate or prosecute any alcohol or drug abuse patient.[facility] Reason for Referral * Diagnostic Procedure Only (Routine) - New Request Specialty Diagnoses / Procedures Referred By Contac t Referred To Contact US IMAGING Diagnoses Thyroid nodule Procedures US THYROID/PARATHYROID US SOFT TISSUE HEAD & NECK REAL TIME IMGE DOCM Ernesto Phoenix MD [address] [place] [address] [place] [address] Phone: tel: fax: [place] [phone] Referral ID Status Reason Start Date Expiration Date Visits Requested Visits Authorized [id number] New Request Auto-Generat ed Referral 06/27/2025 07/20/2026 1 1 Reason for Visit * Reason Comments Renal Cell Cancer OTV Encounter Details Date Type Department Care Team (Latest Contact Info) Description 06/20/2025 9:20 AM EDT Visit (SP) Office Hematology/Oncology [address] [place] [address] Ernesto Phoenix MD [address] [place] [address] [place] [address] Thyroid nodule (Primary Dx); Renal cell carcinoma of left kidney (HCC); 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 Last address used for calculation [address] [place] [address] 01/03/2025 Sex and Gender Information Value Date Recorded Sex Assigned at Male 03/02/2025 11:28 PM EDT Legal Sex Male 8:56 AM EDT Gender Identity Male 03/02/2025 11:28 PM EDT Sexual Orientation Straight 03/02/2025 11 :28 PM EDT documented as of this encounter Last Filed Vital Signs Vital Sign Reading Time Taken Comments Blood Pressure 166/84 06/20/2025 9:08 AM EDT Pulse 55 06/20/2025 9:08 AM EDT Temperature 36.2 C (97.1 F) 06/20/2025 9:08 AM EDT Respiratory Rate 16 06/20/2025 9:08 AM EDT Oxygen Saturation 96% 06/20/2025 9:08 AM EDT Inhaled Oxygen Concentration - - Weight 122.2 kg (269 lb 6.4 oz) 06/20/2025 9:08 AM EDT Height 178 cm (5' 10.08 ) 06/20/2025 9:08 AM EDT Body Mass Index 38.57 06/20/2025 9:08 AM EDT documented in this encounter Functional Status [...] * Patient Instructions* Ernesto Phoenix MD - 06/20/2025 9:23 AM EDT Treatment today and in 3 weeks Continue Lenvatinib Ordered US thyroid. F/u in 3 weeks documented in this encounter Progress Notes * Ernesto Phoenix MD - 06/20/2025 9:20 AM EDT Images from the original note were not included. PATIENT NAME: Skyler Stokes CLINIC NO.: [id number] ATTENDING PHYSICIAN: Ernesto Phoenix MD DATE OF SERVICE: 06/20/[address] Rivera Arvizu [address] [facility] [address] thank you for referring Skyler Stokes for an opinion regarding Kidney cancer. Some of the elements of this note have been copied from my previous progress note dated 06/09/25. Allthe information has been reviewed carefully. CHIEF COMPLAINT: [...] unusual findings. Doing well - Works in [employer]. - No smoking - No alcohol. - [...] due to headache and Shortness of Breath 06/20/25: - Leg swelling has improved - Cycle 4 today - US doppler negative for DVT - Started on nifedipine - Had a heart monitor . - C/o nausea. Current Outpatient Medications Medication Sig lisinopril (ZESTRIL) 5 mg tablet TAKE 1 TABLET BY MOUTH DAILY glipiZIDE 2.5 mg tablet TAKE 1 TABLET [...] : Deferred LABS: Glucose (mg/dL) Date Value 06/09/2025 90 Potassium (mmol/L) Date Value 06/09/2025 4.6 Sodium (mmol/L) Date Value 06/09/2025 138 Chloride (mmol/L) Date Value 06/09/2025 104 CO2 (mmol/L) Date Value 06/09/2025 23 Creatinine (mg/dL) Date Value 06/09/2025 2.26 BUN (mg/dL) Date Value 06/09/2025 24 Anion Gap (mmol/L) Date Value 06/09/2025 11 Calcium, Total (mg/dL) Date Value 06/09/2025 8.8 Protein, Total (g/dL) Date Value 06/09/2025 6.7 Albumin (g/dL) Date Value 06/09/2025 3.7 Bilirubin, Total (mg/dL) Date Value 06/09/2025 0.2 Alkaline Phosphatase (U/L) Date Value 06/09/2025 72 AST (U/L) Date Value 06/09/2025 18 ALT (U/L) Date Value 06/09/2025 9 WBC Date Value Ref Range Status 06/09/2025 9.46 3.70 - 11.00 k/uL Final RBC Date Value Ref Range Status 06/09/2025 4.08 (L) 4.20 - 6.00 m/uL Final Hemoglobin Date Value Ref Range Status 06/09/2025 10.8 (L) 13.0 - 17.0 g/dL Final Hematocrit Date Value Ref Range Status 06/09/2025 34.4 (L) 39.0 - 51.0 % Final MCV Date Value Ref Range Status 06/09/2025 84.3 80.0 - 100.0 fL Final MCH Date Value Ref Range Status 06/09/2025 26.5 26.0 - 34.0 pg Final MCHC Date Value Ref Range Status 06/09/2025 31.4 30.5 - 36.0 g/dL Final RDW-CV Date Value Ref Range Status 06/09/2025 18.0 (H) 11.5 - 15.0 % Final Platelet Count Date Value Ref Range Status 06/09/2025 189 150 - 400 k/uL Final MPV Date Value Ref Range Status 06/09/2025 9.7 9.0 - 12.7 fL Final Abs Neut Date Value Ref Range Status 06/09/2025 7.35 1.45 - 7.50 k/uL Final Lymphocytes % Date Value Ref Range Status 06/09/2025 11.1 % Final Abs Lymph Date Value Ref Range Status 06/09/2025 1.05 1.00 - 4.00 k/uL Final Monocytes % Date Value Ref Range Status 06/09/2025 8.4 % Final Abs [place] Date Value Ref Range Status 06/09/2025 0.79 <0.87 k/uL Final Abs Eosin Date Value Ref Range Status 06/09/2025 0.17 <0.46 k/uL Final Basophils % Date Value Ref Range Status 06/09/2025 0.6 % Final Abs Baso Date Value Ref Range Status 06/09/2025 0.06 <0.11 k/uL Final PATH: SURGICAL PATHOLOGY: [id number] Order: [id number] Collected 02/27/2025 11:37 AM Status: Final result [...] 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 Renal cell carcinoma of left kidney (HCC) - ICD9: 189.0, ICD10: C64.2 - Doing well - Proceed with cycle 4 Keytruda today - Continue lenvatinib 10 mg daily - Tolerating well so far without any major toxicity - Started on nifedipine yesterday by the cardiology. Monitor BP for now - PET scan on 06/17/25 after 3 cycles of Keytruda showed Interval improvement of left para-aortic, however progression of periportal FDG avid lymphadenopathy, FDG avid right thyroid lobe for correlation with ultrasound. - Ordered US thyroid - We will continue Keytruda Lenvatinib for now - CBC CMP stable today - Scheduled to see next month - All his questions answered in detail. - F/u in [address] Rivera Arvizu [address] [facility] [address] thank you for allowing me to participate in [facility], if there areany questions or concerns please do not hesitate to contact me at the number below. I spent a total of 30 minutes on the date of the service which included preparing to see the patient, [id number] patient care, completing clinical documentation, obtaining and/or reviewing separately obtained history, performing a medically appropriate examination, counseling and educating the pat ient/family/caregiver, ordering medications, tests, or procedures, communicating with other HCPs (not separately reported), independently interpreting results (not separately reported), communicatingresults to the patient/family/caregiver, and care coordination (not separately reported). Ernesto Phoenix MD. Hematology/Medical Oncology [facility] [phone] CC: documented in this encounter Plan of Treatment Upcoming Encounters Date Type Department Care Team (Latest Contact Info) Description 07/11/2025 9:00 AM EDT Office Visit [facility] [address] [place] [address] [place] [address] LABS 07/11/2025 9:20 AM EDT Visit (SP) Office Hematology/Oncology [address] [place] [address] [place] [address] Ernesto Phoenix MD [address] [place] [address] Pet scan and lab 07/11/2025 9:40 AM EDT [facility] Hematology/Oncology [address] [place] [address] Pet scan and lab 07/30/2025 2:30 PM EDT [facility] Hematology/Oncology [address] [place] [address] Gerald Young MD [address] [place] [address] pt req virtual appointment after scans due to work schedule and treatment dates Scheduled Orders Name Type Priority Associated Diagnoses Orde r Schedule US THYROID/PARATHYROID Radiology Routine Thyroid nodule Expected: 06/27/2025 (Approximate), Expires: 07/20/2026 COMPLETE BLOOD COUNT AND DIFFERENTIAL Lab Routine Renal cell carcinoma of left kidney (HCC) Thyroid nodule Expected: 07/11/2025 (Approximate), Expires: 10/10/2025 COMPREHENSIVE METABOLIC PANEL Lab Routine Renal cell carcinoma of left kidney (HCC) Thyroid nodule Expected: 07/11/2025 (Approximate), Expires: 10/10/2025 MAGNESIUM Lab Routine Renal cell carcinoma of left kidney (HCC) Thyroid nodule Expected: 07/11/2025 (Approximate), Expires: 10/10/2025 THYROID STIMULATING HORMONE Lab Routine Renal cell carcinoma of left kidney (HCC) Thyroid nodule Expected: 07/11/2025 (Approximate), Expires: 10/10/2025 PROTEIN / CREATININE RATIO Lab Routine Renal cell carcinoma of left kidney (HCC) Thyroid nodule Expected: 07/11/2025 (Approximate), Expires: 10/10/2025 documented as of this encounter Visit Diagnoses Diagnosis Thyroid nodule- Primary Nontoxic uninodular goiter 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 documented in this encounter Care Teams Wall Taper Relationship Specialty Start Date End Date Jessica Murphy CNP [address] [place] [address] PCP - General Internal Medicine 02/07/25 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 RN [address] [place] [address] Specialty Marble Carver Hematology/Oncology 03/28/25 Ernesto Phoenix MD [address] [place] [address] Physician Hematology/Oncology 03/28/25 [place] [address] [place] [address] Physician Hematology 04/09/25 Madelin Mc RN Specialty Marble Carver Hematology/Oncology 04/09/25 Myrtle Holland LSW Product Architect 04/11/[address] [place] [address] Nutrition 04/17/25 documented as of this encounter
--- OUTSIDE RECORDS SUMMARY | 2025-06-20 09:45 | XMS_ITS | Encounter Summary ---
Author Organization [facility] Address [address] [place] [address] Care Team Providers Care Seam Sewer Name Role Phone Jessica Murphy CNP Primary Care Provider + 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 RN Unavailable [phone] Ernesto Phoenix MD Unavailable + Gerald Young MD Unavailable [phone] Madelin Mc RN Unavailable Unavailable Myrtle Holland Unavailable Unavailable Yesica Calderon RD Unavailable Source Comments In the event this information is protected by the Federal Confidentiality of Alcohol and Drug AbusePatient Records regulations: The Federal rules restrict any use of the information to criminally investigate or prosecute any alcohol or drug abuse patient.[facility] Reason for Visit * [place] Prior Authorization (Routine) - Authorized Specialty Diagnoses / Procedures Referred By Contac t Referred To Contact Diagnoses 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) Renal cell carcinoma of left kidney (HCC) Procedures [place] [address] [place] [address] Phone: tel: fax: Hematology/Oncology [address] [place] [address] Phone: tel: Referral ID Status Reason Start Date Expiration Date V [email or web address] Requested Visits Authorized [id number] Authorized 04/15/2025 10/16/2025 99 99 Encounter Details Date Type Department Care Team (Latest Contact Info) Description 06/20/2025 9:45 AM EDT Infusion Center Hematology/Oncolog y [address] [place] [address] 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 Last address used for calculation [address] [place] [address] 01/03/2025 Sex and Gender Information Value Date [...] Description 07/11/2025 9:00 AM EDT Office Visit [facility] [address] [place] [address] [place] [address] LABS 07/11/2025 9:20 AM EDT Visit (SP) Office Hematology/Oncology [address] [place] [address] [place] [address] Ernesto Phoenix MD [address] [facility] [place] [address] Pet scan and lab 07/11/2025 9:40 AM EDT [facility] Hematology/Oncology [address] [facility] [place] [address] Pet scan and lab 07/30/2025 2:30 PM EDT [facility] Hematology/Oncology [address] [place] [address] Gerald Young MD [address] [place] [address] pt req virtual appointment after scans due to work schedule and treatment dates documented as of this encounter Visit Diagnoses Diagnosis 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 Secondary and unspecified malignant neoplasm of intra-abdominal lymph nodes Renal cell carcinoma of left kidney (HCC) documented in this encounter Administered Medications Inactive Administered Medications - up to 3 most recent administrations Medication Order MAR Action Action Date Dose Rate Site pembrolizumab 200 mg in NaCl 0.9% 66 mL (KEYTRUDA) 200 mg, INTRAVENOUS, Administer over 30 Minutes, ONCE, 1 dose, On Mon06/20/25 at 1000, Approx Total Volume: 66 mL EXP: 06/24/2025 0950 Refrigerated Administer with 0.2 micron filter.Indications: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),Renal cell carcinoma of left kidney (HCC) New Bag/Syringe/Bottle 06/20/2025 10:02 AM EDT 200 mg documented in this encounter Care Teams Seam Sewer Relationship Specialty Start Date End Date Jessica Murphy, RIGGING [employer] CONTROLS AIRCRAFT MECHANIC [address] [place] [address] PCP - General Internal Medicine 02/07/25 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 RN [address] [place] [address] Specialty Social Work Job Titles Hematology/Oncology 03/28/25 Ernesto Phoenix MD [address] [place] [place] [address] Physician Hematology/Oncology 03/28/25 [place] [address] [place] [address] Physician Hematology 04/09/25 Madelin Mc RN Specialty Social Work Job Titles Hematology/Oncology 04/09/25 Myrtle Holland LSW Electrician Helper 04/11/[address] [place] [address] Nutrition 04/17/25 documented as of this encounter
--- OUTSIDE RECORDS SUMMARY | 2025-06-21 07:59 | XMS_ITS | Encounter Summary ---
Author Organization [facility] Address [address] [place], [place] [id number] Care Team Providers Care Chicken Sexer Name Role Phone Jessica Murphy CNP Primary Care Provider + 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 RN Unavailable [phone] Ernesto Phoenix MD Unavailable [phone] Gerald Young MD Unavailable [phone] Madelin Mc RN Unavailable Unavailable Myrtle Holland Unavailable Unavailable Yesica Calderon RD Unavailable Source Comments In the event this information is protected by the Federal Confidentiality of Alcohol and Drug AbusePatient Records regulations: The Federal rules restrict any use of the information to criminally investigate or prosecute any alcohol or drug abuse patient.[facility] Encounter Details Date Type Department Care Team (Late st Contact Info) Description 06/03/2025 Telephone Hematology/Oncology [address] [place] [address] [place] [address] Ernesto Phoenix MD [address] [place] [address] [place] [address] Social History Tobacco Use Types Packs/Day [...] is lower risk 6 01/03/2025 Data from: https://www.neighborhoodatlas.medicine.[facility]/. Last address used for calculation [address] 01/03/2025 Sex and Gender Information Value [...] Description 07/11/2025 9:00 AM EDT Office Visit [facility] [address] [facility] [place] [address] LABS 07/11/2025 9:20 AM EDT Visit (SP) Office Hematology/Oncology [address] [place] [address] [place] [address] Ernesto Phoenix MD [address] [facility] [place] [address] Pet scan and lab 07/11/2025 9:40 AM EDT [facility] Hematology/Oncology [address] [place] [address] [place] [address] Pet scan and lab 07/30/2025 2:30 PM EDT [facility] Hematology/Oncology [address] [place] [id number] Gerald Young MD [address] [place] [address] pt req virtual appointment after scans due to work schedule and treatment dates documented as of this encounter Visit Diagnoses Not on filedocumented in this encounter Care Teams Chicken Sexer Relationship Specialty Start Date End Date Jessica Murphy CNP [address] [place] [address] PCP - General Internal Medicine 02/07/25 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 RN [address] [place] [address] Specialty Solar Thermal Technician Hematology/Oncology 03/28/25 Ernesto Phoenix MD [address] [place] [address] Physician Hematology/Oncology 03/28/25 [place] [address] [place] [id number] Physician Hematology 04/09/25 Madelin Mc, RN Specialty Solar Thermal Technician Hematology/Oncology 04/09/25 Myrtle Holland LSW Heading Maker 04/11/25 Yesica Calderon, DARYL [address] [place] [address] Nutrition 04/17/25 documented as of this encounter
--- OUTSIDE RECORDS SUMMARY | 2025-06-21 07:59 | XMS_ITS | Encounter Summary ---
Author Organization [facility] Address [facility] [place] [address] Care Team Providers Care Lecturer Of Portuguese Name Role Phone Jessica Murphy CNP Primary Care Provider + 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 RN Unavailable [phone] Ernesto Phoenix MD Unavailable [phone] Gerald Young MD Unavailable [phone] Madelin Mc RN Unavailable Unavailable Myrtle Holland Unavailable Unavailable Yesica Calderon RD Unavailable Source Comments In the event this information is protected by the Federal Confidentiality of Alcohol and Drug AbusePatient Records regulations: The Federal rules restrict any use of the information to criminally investigate or prosecute any alcohol or drug abuse patient.[facility] Encounter Details Date Type Department Care Team (Late st Contact Info) Description 04/23/2025 Patient [facility] HB-[address] [place] [address] Tamika Evans, [address] [place] [address] Free Drug application Social History Tobacco [...] risk 6 01/03/2025 Data from: https://www.neighborhoodatlas.medicine.[facility]/. Last address used for calculation [address] [facility] 01/03/2025 Sex and Gender Information Value Date [...] Description 07/11/2025 9:00 AM EDT Office Visit [facility] [address] [facility] [place] [address] LABS 07/11/2025 9:20 AM EDT Visit (SP) Office Hematology/Oncology [address] [place] [address] [place] [address] Ernesto Phoenix MD [address] [place] [address] [place] [address] Pet scan and lab 07/11/2025 9:40 AM EDT [facility] Hematology/Oncology [address] [place] [address] [place] [address] Pet scan and lab 07/30/2025 2:30 PM EDT [facility] Hematology/Oncology [address] [place] [address] Gerald Young MD [address] [place] [address] pt req virtual appointment after scans due to work schedule and treatment dates documented as of this encounter Visit Diagnoses Not on filedocumented in this encounter Care Teams Lecturer Of Portuguese Relationship Specialty Start Date End Date Jessica Murphy, REPORTING SPECIALIST [address] [place] [address] PCP - General Internal Medicine 02/07/25 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 RN [address] [place] [address] [place] [address] Specialty Machine Chain Maker Hematology/Oncology 03/28/25 Ernesto Phoenix MD [address] [place] [address] [place] [address] Physician Hematology/Oncology 03/28/25 [place] [address] [place] [address] Physician Hematology 04/09/25 Madelin Mc RN Specialty Machine Chain Maker Hematology/Oncology 04/09/25 Myrtle Holland LSW Cardroom Plastic Card Grader 04/11/25 Yesica Calderon, DARYL [address] [place] [address] Nutrition 04/17/25 documented as of this encounter
--- OUTSIDE RECORDS SUMMARY | 2025-06-21 07:59 | XMS_ITS | Encounter Summary ---
Author Organization [facility] Address [address] [place], [place] [id number] Care Team Providers Care Buyer Grain Name Role Phone Jessica Murphy CNP Primary Care Provider + Herlinda oMsqueda RN Unavailable [phone] Ernesto Phoenix MD Unavailable + Gerald Young MD Unavailable [phone] Madelin Mc RN Unavailable Unavailable Myrtle Holland Unavailable Unavailable Yesica Calderon RD Unavailable Source Comments In the event this information is protected by the Federal Confidentiality of Alcohol and Drug AbusePatient Records regulations: The Federal rules restrict any use of the information to criminally investigate or prosecute any alcohol or drug abuse patient.[facility] Reason for Visit * Reason Comments Radiology US Encounter Details Date Type Department Care Team ([facility] st Contact Info) Description 06/09/2025 Telephone Cancer Appts [address] [place] [address] Ernesto Phoenix MD [address] [place] [address] [place] [address] Radiology US Social History Tobacco Use Types Packs/Day Years [...] is lower risk 6 01/03/2025 Data from: https://www.neighborhoodatlas.medicine.[facility]/. Last address used for calculation [address] 01/03/2025 Sex and Gender Information Value [...] Entry Date Author No 02/28/2025 3:36 PM SARAHYTrent French RN documented in this encounter Miscellaneous Notes * Telephone Encounter - Dagobertolillian Gamez Nirmala L - 06/11/2025 10:48 AM EDT Finalized report scanned. * Telephone Encounter - 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 RN - 06/10/2025 12:34 PM EDT Preliminary report is negative. 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 RN * Telephone Encounter - Nirmala Weiss - 06/10/2025 8:24 AM EDT Preliminary report scanned. * Telephone Encounter - Huyen Burden - 06/09/2025 4:16 PM EDT Patient has been scheduled for STAT US today @ [facility] @ 4:45ish pm - He was leaving from our office and going straight there to be worked into their schedule. Radiology will call w/ results if positive. Huyen Burden documented in this encounter Plan of Treatment Upcoming Encounters Date Type Department Care Team (Latest Contact Info) Description 07/11/2025 9:00 AM EDT Office Visit [facility] [address] [place] [address] [place] [address] LABS 07/11/2025 9:20 AM EDT Visit (SP) Office Hematology/Oncology [address] [place] [address] [place] [address] Ernesto Phoenix MD [address] [place] [address] [place] [address] Pet scan and lab 07/11/2025 9:40 AM EDT [facility] Hematology/Oncology [address] [place] [address] Pet scan and lab 07/30/2025 2:30 PM EDT [facility] Hematology/Oncology [address] [place] [address] Gerald Young MD [address] [facility] [place] [address] pt req virtual appointment after scans due to work schedule and treatment dates documented as of this encounter Visit Diagnoses Not on filedocumented in this encounter Care Teams Buyer Grain Relationship Specialty Start Date End Date Jessica Murphy, LITHOGRAPHER HELPER [address] [place] [address] PCP - General Internal Medicine 02/07/25 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 RN [address] [facility] [place] [address] Specialty Basketball Coach Hematology/Oncology 03/28/25 Ernesto Phoenix MD [address] [place] [address] [place] [address] Physician Hematology/Oncology 03/28/25 [place] [address] [place] [address] Physician Hematology 04/09/25 Madelin Mc RN Specialty Basketball Coach Hematology/Oncology 04/09/25 Myrtle Holland LSW Netbackup Admin 04/11/[address] [place] [address] Nutrition 04/17/25 documented as of this encounter
--- OUTSIDE RECORDS SUMMARY | 2025-06-21 07:59 | XMS_ITS | Encounter Summary ---
Author Organization [facility] Address [address] [place] [address] Care Team Providers Care Dog Barber Name Role Phone Jessica Murphy CNP Primary Care Provider + 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 RN Unavailable [phone] Ernesto Phoenix MD Unavailable [phone] Gerald Young MD Unavailable [phone] Madelin Mc RN Unavailable Unavailable Myrtle Holland [...] (Late st Contact Info) Description 04/09/2025 Patient [facility] HB-[address] [place] [address] Isabela Kenny, [facility] [address] [facility] [address] [employer] Prescription Social History Tobacco Use Types [...] risk 6 01/03/2025 Data from: https://www.neighborhoodatlas.medicine.[facility]/. Last address used for calculation [address] 01/03/2025 Sex and Gender Information Value [...] Description 07/11/2025 9:00 AM EDT Office Visit [facility] [address] [place] [address] LABS 07/11/2025 9:20 AM EDT Visit (SP) Office Hematology/Oncology [address] [place] [address] [place] [address] Ernesto Phoenix MD [address] [place] [address] [place] [address] Pet scan and lab 07/11/2025 9:40 AM EDT [facility] Center Hematology/Oncology [address] [place] [address] [place] [address] Pet scan and lab 07/30/2025 2:30 PM EDT [facility] Hematology/Oncology [address] [place] [address] Gerald Young MD [address] [place] [address] pt req virtual appointment after scans due to work schedule and treatment dates documented as of this encounter Visit Diagnoses Not on filedocumented in this encounter Care Teams Dog Barber Relationship Specialty Start Date End Date Jessica Murphy COMBAT SYSTEMS ENGINEER [address] [place] [address] PCP - General Internal Medicine 02/07/25 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 RN [address] [place] [address] [place] [address] Specialty Wagon Driver Salesperson Hematology/Oncology 03/28/25 Ernesto Phoenix MD [address] [place] [address] [place] [address] Physician Hematology/Oncology 03/28/25 [place] [address] [place] [address] Physician Hematology 04/09/25 Madelin Mc RN Specialty Wagon Driver Salesperson Hematology/Oncology 04/09/25 Myrtle Holland LSW Fish Conservationist 04/11/25 Yesica Calderon, RD [address] [place] [id number] Nutrition 04/17/25 documented as of this encounter
--- OUTSIDE RECORDS SUMMARY | 2025-06-21 07:59 | XMS_ITS | Encounter Summary ---
Author Organization [facility] Address [address] [place] [address] Care Team Providers Care Library Technology Instructor Name Role Phone Jessica Murphy CNP Primary Care Provider [phone] Encounter Details Date Type Department Care Team (Late st Contact Info) Description 06/17/2025 Orders Only [facility] [address] [place] [address] ProviderAnna MD [address] [place] [address] Social History Tobacco Use Types Packs/Day Years Used Date Smoking Tobacco: Never Assessed Sex and Gender Information Value Date Recorded Sex Assigned at Male 06/09/2025 4:18 PM EDT Legal Sex Male 8:41 AM EDT Gender Identity Male 06/09/2025 4:18 PM EDT Sexual Orientation Heterosexual or Straight 05/2025 4:18 PM EDT documented as of this encounter Plan of Treatment Upcoming Encounters Date Type Department Care Team (Late st Contact Info) Description 07/16/2025 9:00 AM EDT Office Visit [facility] [address] [place] [address] Chaka Griffin MD [address] [place] [address] documented as of this encounter Procedures Procedure Name Priority Date/Time Associated Diagnosis Comments HOLTER MONITOR MEDICAL RESEARCHER Routine 025 2:00 PM EDT HOLTER MONITOR ASSISTED Routine 025 2:00 PM EDT COMPLETE TRANSTHORACIC ECHO (TTE) W/WO IMAGING AGENT, STRAIN, 3D, BUBBLE STUDY Routine 05/05/2025 1:59 PM EDT documented in this encounter Results * Holter monitor - skilled nursing (05/12/2025 2:00 PM EDT) Anatomical Region Laterality Modality Other [facility] Provider CV CARDIAC SERVICES PROCE DURES Final Result * Holter monitor - publication specialist (05/12/2025 2:00 PM EDT) Anatomical Region Laterality Modality Other Historical Provider CV CARDIAC SERVICES PROCE DURES Final Result * Complete Echo (TTE) w/wo Imaging Agent, Strain, 3D, Bubble Study (05/05/2025 1:59 PM EDT) Anatomical Region Laterality Modality Ultrasound [facility] Provider CV ECHO PROCEDURES Final Result documented in this encounter Visit Diagnoses Not on filedocumented in this encounter Care Teams Library Technology Instructor Relationship Specialty Start Date End Date Jessica Murphy CNP [address] [place] [address], [place] [address] PCP - General Family Medicine 06/17/25 documented as of this encounter
--- OUTSIDE RECORDS SUMMARY | 2025-06-21 07:59 | XMS_ITS | Encounter Summary ---
Author Organization [facility] Address [address] [place], [place] [address] Care Team Providers Care Plaster Caster Name Role Phone Jessica Murphy CNP Primary Care Provider + 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 RN Unavailable [phone] Ernesto Phoenix MD Unavailable [phone] Gerald Young MD Unavailable [phone] Madelin Mc RN Unavailable Unavailable Myrtle Holland Unavailable Unavailable Yesica Calderon RD Unavailable Source Comments In the event this information is protected by the Federal Confidentiality of Alcohol and Drug AbusePatient Records regulations: The Federal rules restrict any use of the information to criminally investigate or prosecute any alcohol or drug abuse patient.[facility] Reason for Visit * Reason Comments Refill Request Encounter Details Date Type Department Care Team (Late st Contact Info) Description 06/09/2025 Refill Hematology/Oncology [place] [address] Ernesto Pheonix MD [place] [address] Refill Request Social History Tobacco Use Types Packs/Day [...] is lower risk 6 01/03/2025 Data from: https://www.neighborhoodatlas.[facility]/. Last address used for calculation [address] 01/03/2025 Sex and Gender Information Value [...] Description 07/11/2025 9:00 AM EDT Office Visit [facility] Laboratory [address] [facility] [place] [address] LABS 07/11/2025 9:20 AM EDT Visit (SP) Office Hematology/Oncology [address] [place] [address] [place] [address] Ernesto [place] MD [address] [place] [address] [place] [address] Pet scan and lab 07/11/2025 9:40 AM EDT [facility] Hematology/Oncology [address] [place] [address] [place] [address] Pet scan and lab 07/30/2025 2:30 PM EDT [facility] Hematology/Oncology [address] [place] [phone] Gerald Young MD [address] [place] [address] pt req virtual appointment after scans due to work schedule and treatment dates documented as of this encounter Visit Diagnoses Not on filedocumented in this encounter Care Teams Plaster Caster Relationship Specialty Start Date End Date Jessica Murphy CNP [address] [place] [address] PCP - General Internal Medicine 02/07/25 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 RN [address] [facility] [place] [address] Specialty Insulation Cupola Operator Hematology/Oncology 03/28/25 Ernesto Phoenix MD [address] [place] [address] [place] [address] Physician Hematology/Oncology 03/28/25 [place] [address] [place] [phone] Physician Hematology 04/09/25 Madelin Mc, RN Specialty Insulation Cupola Operator Hematology/Oncology 04/09/25 Myrtle Holland LSW Journeyman Press Operator 04/11/25 Yesica Calderon, RD [address] [place] [address] Nutrition 04/17/25 documented as of this encounter
--- OUTSIDE RECORDS SUMMARY | 2025-06-21 07:59 | XMS_ITS | Encounter Summary ---
Author Organization [facility] Address [address] [place], [place] [id number] Care Team Providers Care Lathe Set Up Operator Name Role Phone Jessica Murphy CNP Primary Care Provider + 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 RN Unavailable [phone] Ernesto Phoenix MD Unavailable [phone] Gerald Young MD Unavailable [phone] Madelin Mc RN Unavailable Unavailable Myrtle Holland [...] Care Team (Latest Contact Info) Description 06/20/2025 Travel Social History Tobacco Use Types Packs/Day [...] is lower risk 6 01/03/2025 Data from: https://www.neighborhoodatlas.medicine.[facility]/. Last address used for calculation [address] 01/03/2025 Sex and Gender Information Value [...] Description 07/11/2025 9:00 AM EDT Office Visit [facility] [address] [place] [address] [place] [address] LABS 07/11/2025 9:20 AM EDT Visit (SP) Office Hematology/Oncology [address] [place] [address] [place] [address] Ernesto Phoenix MD [address] [place] [address] [place] [address] Pet scan and lab 07/11/2025 9:40 AM EDT [facility] Center Hematology/Oncology [address] [place] [address] [place] [address] Pet scan and lab 07/30/2025 2:30 PM EDT [facility] Hematology/Oncology [address] [place] [address] Gerald Young MD [address] [place] [address] pt req virtual appointment after scans due to work schedule and treatment dates documented as of this encounter Visit Diagnoses Not on filedocumented in this encounter Care Teams Lathe Set Up Operator Relationship Specialty Start Date End Date Jessica Murphy, MOOSE HUNTER [address] [place] [phone] PCP - General Internal Medicine 02/07/25 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, JUANA [address] [place] [address] [place] [address] Specialty Farm Demonstrator Hematology/Oncology 03/28/25 Ernesto [place] MD [address] [place] [address] [place] [address] Physician Hematology/Oncology 03/28/25 [place] [address] [place] [address] Physician Hematology 04/09/25 Madelin Mc, RN Specialty Farm Demonstrator Hematology/Oncology 04/09/25 Myrtle Holland LSW Product Manager Medical Device 04/11/[address] [place] [phone] Nutrition 04/17/25 documented as of this encounter
--- OUTSIDE RECORDS SUMMARY | 2025-06-21 07:59 | XMS_ITS | Encounter Summary ---
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) ([facility]) Social History Tobacco Use Types Packs/Day Years [...] Encounters Date Type Department Care Team (Late Contact Info) Description 07/16/2025 9:00 AM EDT Office Visit [facility] [address] [place] [address] Chaka Griffin MD [address] [place] [address] documented as of this encounter Visit Diagnoses Diagnosis 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
--- OUTSIDE RECORDS SUMMARY | 2025-06-21 07:59 | XMS_ITS | Encounter Summary ---
Author Organization [facility] Address [address] [place], [place] [id number] Care Team Providers Care Tube And Rod Straightener Name Role Phone Jessica Murphy CNP Primary Care Provider + 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 RN Unavailable [phone] Ernesto Phoenix MD Unavailable [phone] Gerald Young MD Unavailable [phone] Madelin Mc RN Unavailable Unavailable Myrtle Holland Unavailable Unavailable Yesica Calderon RD Unavailable Source Comments In the event this information is protected by the Federal Confidentiality of Alcohol and Drug AbusePatient Records regulations: The Federal rules restrict any use of the information to criminally investigate or prosecute any alcohol or drug abuse patient.[facility] Reason for Visit * Reason Comments Lab Orders Encounter Details Date Type Department Care Team (Late st Contact Info) Description 06/17/2025 Telephone Hematology/Oncology [address] [place], [place] [address] [place] [address] Ernesto Phoenix MD [address] [place] [address] [place] [address] Lab Orders Social History Tobacco Use [...] lower risk 6 01/03/2025 Data from: https://www.neighborhoodatlas.[facility]/. Last address used for calculation [address] 01/03/2025 Sex and Gender Information Value [...] Assessment Author No 02/28/2025 3:36 PM EDT Tretn Adler RN * Are you blind or [...] Telephone Encounter - Isabella Ovalle MA - 06/17/2025 2:[address] labs for [place] on 06/20. Isabella Ovalle MA documented in this encounter Plan of Treatment Upcoming Encounters Date Type Department Care Team (Latest Contact Info) Description 07/11/2025 9:00 AM EDT Office Visit [facility] Laboratory [address] [place] [address] LABS 07/11/2025 9:20 AM EDT Visit (SP) Office Hematology/Oncology [address] [place] [address] [place] [address] Ernesto Phoenix MD [address] [place] [address] Pet scan and lab 07/11/2025 9:40 AM EDT [facility] Hematology/Oncology [address] [place] [address] Pet scan and lab 07/30/2025 2:30 PM EDT [facility] Hematology/Oncology [address] [place] [address] Gerald Young MD [address] [place] [address] pt req virtual appointment after scans due to work schedule and treatment dates documented as of this encounter Results * (ABNORMAL) PROTEIN / CREATININE RATIO (06/20/2025 9:02 AM EDT) Protein, Urine Random 254(H) 0 - 20 mg/dL 06/20/2025 9:08 PM EDT [facility] Creatinine, Ur Random (UCRR) 146.6 20.0 - 300.0 mg/dL 06/20/2025 9:08 PM EDT [facility] Protein/Creat Ratio 1.73(H) <0.15 mg/mg 06/20/2025 9:08 PM EDT [facility] Comment: Adult Proteinuria Categories: <0.15 mg/mg is considered normal to mildly increased 0.15 - 0.50 mg/mg is considered moderately increased >0.50 mg/mg is considered severely increased KDIGO. (2013). KDIGO 2012 Clinical Practice Guideline for the Evaluation and Management of Chronic Kidney Disease. Official Journal of the International Society of Nephrology, 3(1), 1-150. Urine URINE SPECIMEN / Unknown Non Blood / Unknown 06/20/2025 9:02 AM EDT 06/20/2025 9:02 AM EDT us Ernesto Phoenix MD LABORATORY Final Res ult [facility] [address] [facility] [place] [address], [place] * (ABNORMAL) COMPREHENSIVE METABOLIC PANEL (06/20/2025 8:56 AM EDT) Protein, Total 6.9 6.3 - 8.0 g/dL 06/20/2025 9:17 AM EDT [facility] Albumin 3.9 3.9 - 4.9 g/dL 06/20/2025 9:17 AM EDT [facility] Calcium, Total 8.4(L) 8.5 - 10.2 mg/dL 06/20/2025 9:17 AM EDT [facility] Bilirubin, Total 0.4 0.2 - 1.3 mg/dL 06/20/2025 9:17 AM EDT [facility] Alkaline Phosphatase 72 38 - 113 U/L 06/20/2025 9:17 AM EDT [facility] AST 14 14 - 40 U/L 06/20/2025 9:17 AM EDT [facility] ALT 10 10 - 54 U/L 06/20/2025 9:17 AM EDT [facility] Glucose 139(H) 74 - 99 mg/dL 06/20/2025 9:17 AM [facility] Comment: The [place] Diabetes Association (ADA) provides guidance for cutoff [...] Standards of Medical Care in Diabetes 2016, [place] Diabetes Association. Diabetes Care. 2016.39(Suppl 1). BUN 32(H) 9 - 24 mg/dL 06/20/2025 9:17 AM [facility] Creatinine 2.23(H) 0.73 - 1.22 mg/dL 06/20/2025 9:17 AM [facility] Sodium 136 136 - 144 mmol/L 06/20/2025 9:17 AM [facility] Potassium 4.1 3.7 - 5.1 mmol/L 06/20/2025 9:17 AM [facility] Chloride 99 98 - 107 mmol/L 06/20/2025 9:17 AM [facility] CO2 26 22 - 30 mmol/L 06/20/2025 9:17 AM [facility] Anion Gap 11 8 - 15 mmol/L 06/20/2025 9:17 AM [facility] Estimated Glomerular Filtration Rate 32(L) >=60 mL/min/1. 73m 06/20/2025 9:17 AM [facility] Comment:Estimated Glomerular Filtration Rate (eGFR) [...] BLOOD SPECIMEN / Unknown Venipuncture / Unknown 06/20/2025 8:56 AM EDT 06/20/2025 8:56 AM EDT us Ernesto Phoenix MD LABORATORY Final Res ult [facility] [address] [place] [address] * (ABNORMAL) COMPLETE BLOOD COUNT AND DIFFERENTIAL (06/20/2025 8:56 AM EDT) WBC 8.16 3.70 - 11.00 k/uL 06/20/2025 9:01 AM EDT [facility] RBC 4.11(L) 4.20 - 6.00 m/uL 06/20/2025 9:01 AM EDT [facility] Hemoglobin 10.9(L) 13.0 - 17.0 g/dL 06/20/2025 9:01 AM EDT [facility] Hematocrit 34.0(L) 39.0 - 51.0 % 06/20/2025 9:01 AM EDT [facility] MCV 82.7 80.0 - 100.0 fL 06/20/2025 9:01 AM EDT [facility] MCH 26.5 26.0 - 34.0 pg 06/20/2025 9:01 AM EDT [facility] MCHC 32.1 30.5 - 36.0 g/dL 06/20/2025 9:01 AM EDT [facility] RDW-CV 16.6(H) 11.5 - 15.0 % 06/20/2025 9:01 AM EDT [facility] Platelet Count 166 150 - 400 k/uL 06/20/2025 9:01 AM EDT [facility] MPV 9.9 9.0 - 12.7 fL 06/20/2025 9:01 AM EDT [facility] Neutrophils % 78.6 % 06/20/2025 9:01 AM EDT [facility] Abs Neut 6.41 1.45 - 7.50 k/uL 06/20/2025 9:01 AM EDT [facility] Lymphocytes % 12.9 % 06/20/2025 9:01 AM EDT [facility] Abs Lymph 1.05 1.00 - 4.00 k/uL 06/20/2025 9:01 AM EDT [facility] Monocytes % 5.1 % 06/20/2025 9:01 AM EDT [facility] Abs [place] 0.42 <0.87 k/uL 06/20/2025 9:01 AM EDT [facility] Eosinophils % 2.3 % 06/20/2025 9:01 AM EDT [facility] Abs Eosin 0.19 <0.46 k/uL 06/20/2025 9:01 AM EDT [facility] Basophils % 0.9 % 06/20/2025 9:01 AM EDT [facility] Abs Baso 0.07 <0.11 k/uL 06/20/2025 9:01 AM EDT [facility] Immature Granulocytes % 0.2 % 06/20/2025 9:01 AM EDT [facility] Abs Immature Gran <0.03 <0.10 k/uL 06/20/2025 9:01 AM EDT [facility] NRBC 0.0 /100 WBC 06/20/2025 9:01 AM EDT [facility] Absolute nRBC <0.01 <0.01 k/uL 06/20/2025 9:01 AM EDT [facility] Diff Type Auto 06/20/2025 9:01 AM T [facility] Blood BLOOD SPECIMEN / Unknown Venipuncture / Unknown 06/20/2025 8:56 AM EDT 06/20/2025 8:56 AM EDT Ernesto Phoenix MD LABORATORY Final Res ult [facility] [address] [place] [address] documented in this encounter Visit Diagnoses Diagnosis Renal cell carcinoma of left kidney (HCC)- Primary documented in this encounter Care Teams Tube And Rod Straightener Relationship Specialty Start Date End Date Jessica Murphy, EXCEPTIONAL CHILDREN'S TEACHER [address] [place] [address] PCP - General Internal Medicine 02/07/25 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, RN [address] [place] [address] Specialty Cleat Thrower Hematology/Oncology 03/28/25 Ernesto Phoenix MD [address] [place] [address] Physician Hematology/Oncology 03/28/25 [place] [address] [place] [address] Physician Hematology 04/09/25 Madelin Mc, RN Specialty Cleat Thrower Hematology/Oncology 04/09/25 Myrtle Holland LSW Computer Artist 04/11/[address] [place] [address] Nutrition 04/17/25 documented as of this encounter
--- OUTSIDE RECORDS SUMMARY | 2025-06-21 07:59 | XMS_ITS | Encounter Summary ---
Author Organization [facility] Address [address] [place], [place] [id number] Care Team Providers Care Candy Rolling Machine Operator Name Role Phone Jessica Murphy CNP Primary Care Provider + 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 RN Unavailable [phone] Ernesto Phoenix MD Unavailable + Gerald Young MD Unavailable [phone] Madelin Mc RN Unavailable Unavailable Myrtle Holland Unavailable Unavailable Yesica Calderon RD Unavailable Source Comments In the event this information is protected by the Federal Confidentiality of Alcohol and Drug AbusePatient Records regulations: The Federal rules restrict any use of the information to criminally investigate or prosecute any alcohol or drug abuse patient.[facility] Reason for Visit * Reason Comments Care Coordination Shortness of breath, bilateral lower extremity swelling Encounter Details Date Type Department Care Team (Late st Contact Info) Description 06/09/2025 Telephone Hematology/Oncology [address] [place] [address] [place] [address] 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, RN [address] [place] [address] [place] [address] Care Coordination (Shortness of breath, bilateral lower extremity swelling) Social History Tobacco Use Types Packs/Day Years [...] risk 6 01/03/2025 Data from: https://www.neighborhoodatlas.medicine.[facility]/. Last address used for calculation [address] 01/03/2025 Sex and Gender Information Value [...] encounter Miscellaneous Notes * Telephone Encounter - Britney Wells - 06/09/2025 10:24 AM EDT Skyler has been added to the schedule today for labs and a follow up with Dr Ring starting at 315. Britney B PSS * Telephone Encounter - 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 RN - 06/09/2025 10:22 AM EDT He can. I transferred the call to the PSS's to schedule, and had them add him on for labs as well. Please sign pending CBC and CMP Thanks 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 RN * Telephone Encounter - Ernesto Phoenix MD - 06/09/2025 9:35 AM EDT Can he see me today in office ? Thank you * Telephone Encounter - 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 RN - 06/09/2025 9:22 AM EDT Voicemail received from pt stating he was instructed to stop lenvatinib about 10 days ago and was started on Norvasc by PCP same day. Pt states he was having some headaches and shortness of breath sohe stopped the Norvasc 4 days later. Pt states over the weekend he became much more short of breathand he also has swelling in both his feet and ankles. Pt states Dr Ring stopped both is water pills a couple of weeks ago as well. Please advise 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 RN documented in this encounter Plan of Treatment Upcoming Encounters Date Type Department Care Team (Latest Contact Info) Description 07/11/2025 9:00 AM EDT Office Visit [facility] Laboratory [address] [place] [address] LABS 07/11/2025 9:20 AM EDT Visit (SP) Office Hematology/Oncology [address] [place] [address] Ernesto Phoenix MD [address] [place] [address] Pet scan and lab 07/11/2025 9:40 AM EDT [facility] Hematology/Oncology [address] [place] [address] Pet scan and lab 07/30/2025 2:30 PM EDT [facility] Hematology/Oncology [address] [place] [address] Gerald Young MD [address] [place] [address] pt req virtual appointment after scans due to work schedule and treatment dates documented as of this encounter Results * (ABNORMAL) COMPREHENSIVE METABOLIC PANEL (06/09/2025 3:18 PM EDT) Pathologist [facility] Protein, Total 6.7 6.3 - 8.0 g/dL 06/10/2025 5:16 AM EDT [facility] Albumin 3.7(L) 3.9 - 4.9 g/dL 06/10/2025 5:16 AM EDT [facility] Calcium, Total 8.8 8.5 - 10.2 mg/dL 06/10/2025 5:16 AM EDT [facility] Bilirubin, Total 0.2 0.2 - 1.3 mg/dL 06/10/2025 5:16 AM EDT [facility] Alkaline Phosphatase 72 38 - 113 U/L 06/10/2025 5:16 AM EDT [facility] AST 18 14 - 40 U/L 06/10/2025 5:16 AM EDT [facility] ALT 9(L) 10 - 54 U/L 06/10/2025 5:16 AM [facility] Glucose 90 74 - 99 mg/dL 06/10/2025 5:16 AM [facility] Comment: The [place] Diabetes Association (ADA) provides guidance for cutoff [...] Standards of Medical Care in Diabetes 2016, [place] Diabetes Association. Diabetes Care. 2016.39(Suppl 1). BUN 24 9 - 24 mg/dL 06/10/2025 5:16 AM [facility] Creatinine 2.26(H) 0.73 - 1.22 mg/dL 06/10/2025 5:16 AM [facility] Sodium 138 136 - 144 mmol/L 06/10/2025 5:16 AM [facility] Potassium 4.6 3.7 - 5.1 mmol/L 06/10/2025 5:16 AM [facility] Chloride 104 98 - 107 mmol/L 06/10/2025 5:16 AM [facility] CO2 23 22 - 30 mmol/L 06/10/2025 5:16 AM [facility] Anion Gap 11 8 - 15 mmol/L 06/10/2025 5:16 AM [facility] Estimated Glomerular Filtration Rate 31(L) >=60 mL/min/1. 73m 06/10/2025 5:16 AM [facility] Comment:Estimated Glomerular Filtration Rate (eGFR) is [...] BLOOD SPECIMEN / Unknown Venipuncture / Unknown 06/09/2025 3:18 PM EDT 06/09/2025 3:18 PM EDT us Ernesto Phoenix MD LABORATORY Final Res ult [facility] [address] [facility] [address] [place] [address], [place] * (ABNORMAL) COMPLETE BLOOD COUNT AND DIFFERENTIAL (06/09/2025 3:18 PM EDT) WBC 9.46 3.70 - 11.00 k/uL 06/09/2025 3:28 PM EDT [facility] RBC 4.08(L) 4.20 - 6.00 m/uL 06/09/2025 3:28 PM EDT [facility] Hemoglobin 10.8(L) 13.0 - 17.0 g/dL 06/09/2025 3:28 PM EDT [facility] Hematocrit 34.4(L) 39.0 - 51.0 % 06/09/2025 3:28 PM EDT [facility] MCV 84.3 80.0 - 100.0 fL 06/09/2025 3:28 PM EDT [facility] MCH 26.5 26.0 - 34.0 pg 06/09/2025 3:28 PM EDT [facility] MCHC 31.4 30.5 - 36.0 g/dL 06/09/2025 3:28 PM EDT [facility] RDW-CV 18.0(H) 11.5 - 15.0 % 06/09/2025 3:28 PM EDT [facility] Platelet Count 189 150 - 400 k/uL 06/09/2025 3:28 PM EDT [facility] MPV 9.7 9.0 - 12.7 fL 06/09/2025 3:28 PM EDT [facility] Neutrophils % 77.7 % 06/09/2025 3:28 PM EDT [facility] Abs Neut 7.35 1.45 - 7.50 k/uL 06/09/2025 3:28 PM EDT [facility] Lymphocytes % 11.1 % 06/09/2025 3:28 PM EDT [facility] Abs Lymph 1.05 1.00 - 4.00 k/uL 06/09/2025 3:28 PM EDT [facility] Monocytes % 8.4 % 06/09/2025 3:28 PM EDT [facility] Abs [place] 0.79 <0.87 k/uL 06/09/2025 3:28 PM EDT [facility] Eosinophils % 1.8 % 06/09/2025 3:28 PM EDT [facility] Abs Eosin 0.17 <0.46 k/uL 06/09/2025 3:28 PM EDT [facility] Basophils % 0.6 % 06/09/2025 3:28 PM EDT [facility] Abs Baso 0.06 <0.11 k/uL 06/09/2025 3:28 PM EDT [facility] Immature Granulocytes % 0.4 % 06/09/2025 3:28 PM EDT [facility] Abs Immature Gran 0.04 <0.10 k/uL 06/09/2025 3:28 PM EDT [facility] NRBC 0.0 /100 WBC 06/09/2025 3:28 PM EDT [facility] Absolute nRBC <0.01 <0.01 k/uL 06/09/2025 3:28 PM EDT [facility] Diff Type Auto 06/09/2025 3:28 PM EDT [facility] Blood BLOOD SPECIMEN / Unknown Venipuncture / Unknown 06/09/2025 3:18 PM EDT 06/09/2025 3:18 PM EDT us Ernesto Phoenix MD LABORATORY Final Res ult [facility] [address] [place] [address] documented in this encounter Visit Diagnoses Diagnosis Renal cell carcinoma of left kidney (HCC)- Primary documented in this encounter Care Teams Candy Rolling Machine Operator Relationship Specialty Start Date End Date Jessica Murphy, NATURAL GAS PLANT TECHNICIAN [address] [place] [address] PCP - General Internal Medicine 02/07/25 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, JUANA [address] [place] [address] Specialty Acid Pump Operator Hematology/Oncology 03/28/25 Ernesto Phoenix MD [address] [place] [address] Physician Hematology/Oncology 03/28/25 [place] [address] [place] [address] Physician Hematology 04/09/25 Madelin Mc, RN Specialty Acid Pump Operator Hematology/Oncology 04/09/25 Myrtle Holland LSW Sheet Manager 04/11/[address] [place] [address] Nutrition 04/17/25 documented as of this encounter
--- OUTSIDE RECORDS SUMMARY | 2025-06-21 07:59 | XMS_ITS | Clinical Summary ---
Author Organization [facility] Address [address] [place], [place] [address] Care Team Providers Care Car Attendant Name Role Phone Jessica Murphy CNP Primary Care Provider + 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 RN Unavailable [phone] Ernesto Phoenix MD Unavailable [phone] Gerald Young MD Unavailable [phone] Madelin Mc RN Unavailable Unavailable Myrtle Holland Unavailable Unavailable Yesica Calderon RD Unavailable Allergies Active Allergy Reactions Criticality Noted Date Comments Tamsulosin Other: See Comments 02/27/2025 dizziness and back pain Medications dutasteride (AVODART) 0.5 mg capsule Take 0.5 mg by mouth once daily. Active FLUoxetine (PROZAC) 10 mg capsule Take 10 mg by mouth once daily. Active acetaminophen (TYLENOL) 325 mg tablet Take 2 tablets by mouth every 6 hours as needed for pain. 40 tablet 5 3:04 PM EDT 02/29/20 25 Active docusate sodium (COLACE ORAL) Take 1 capsule by mouth two times a day. 03/14/20 25 Active allopurinol (ZYLOPRIM) 300 mg tablet Take 300 mg by mouth two times a day. 09/07/20 22 Active prochlorperazi ne (COMPAZINE) 10 mg tablet Take 1 tablet by mouth every 6 hours as needed. 100 tablet 2 5 9:20 AM EDT 03/28/20 25 Active ondansetron (ZOFRAN) 8 mg tablet Take 1 tablet by mouth every 8 hours as needed for nausea/vomiti ng. 90 tablet 2 5 9:20 AM EDT 03/28/20 25 Active inulin (FIBER GUMMIES PO) Take 1 each by mouth two times a day. Active lenvatinib (LENVIMA) 10 mg/day (10 mg x 1) capsule Take 2 capsules by mouth once daily. 60 capsule 2 5 9:20 AM EDT 04/09/20 25 Active sennosides (SENNA LAX PO) Take by mouth. Active SPS, WITH SORBITOL, 15-20 gram/60 mL susp suspension TAKE 60ML BY MOUTH FOR 1 DOSE 60 mL 05/12/20 25 Active glipiZIDE 2.5 mg tablet TAKE 1 TABLET BY MOUTH DAILY 30 MINUTES BEFORE BREAKFAST Active metoprolol tartrate, short acting, (LOPRESSOR) 50 mg tablet Take 50 mg by mouth two times a day. TAKE WITH FOOD. Active lisinopril (ZESTRIL) 5 mg tablet TAKE 1 TABLET BY MOUTH DAILY 90 tablet 06/10/20 25 Active NIFEdipine XL (ADALAT CC) 30 mg 24 hr tablet TAKE 1 TABLET(30 MG) BY MOUTH BEFORE BREAKFAST. DO NOT CRUSH, CHEW, OR SPLIT 06/18/20 25 Active furosemide (LASIX) 40 mg tablet 06/07/20 25 Active metFORMIN (GLUCOPHAGE) 1,000 mg tablet Take 500 mg by mouth two times a day. 025 Discontinued(Di scontinued by another Health Care Provider) metoprolol tartrate, short acting, (LOPRESSOR) 100 mg tablet Take 100 mg by mouth two times a day. 025 Discontinued(Ad just Sig - Block E-Cancel) furosemide (LASIX) 40 mg tablet Take 1 tablet by mouth every 12 hours. 05/10/20 25 025 Discontinued metoprolol tartrate, short acting, (LOPRESSOR) 100 mg tablet Take 0.5 tablets by mouth two times a day. 180 tablet 05/30/20 25 025 Discontinued(Ch anging Therapy/Dosage Form) amLODIPine (NORVASC) 2.5 mg tablet Take 1 tablet by mouth once daily. 05/28/20 25 025 Discontinued lisinopril (ZESTRIL) 5 mg tablet Take 1 tablet by mouth once daily. 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) 06/20/2025 Travel 06/17/2025 1:17 PM EDT - 06/17/2025 11:59 PM EDT Hospital Encounter Radiology Pet CT [address] [place] [address] Renal cell carcinoma of left kidney (HCC) [C64.2] Discharge Disposition: Home 06/17/2025 Telephone Hematology/Oncolog y [address] [place] [address] Ernesto Phoenix MD Lab Orders 06/09/2025 3:40 PM EDT Visit (SP) Office Hematology/Oncolog y [address] [place] [address] Ernesto Phoenxi MD Renal cell carcinoma of left kidney (HCC) (Primary Dx); Shortness of breath 06/09/2025 Refill Hematology/Oncolog y [address] [place] [address] Ernesto Phoenix MD Refill Request 06/09/2025 Telephone Cancer Appts [address] [place] [address] Ernesto Phoenix MD Radiology US 06/09/2025 Telephone Hematology/Oncolog y [address] [place] [address] 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, RN Care Coordination (Shortness of breath, bilateral lower extremity swelling) 06/03/2025 Telephone Hematology/Oncolog y [address] [place] [address] Ernesto Phoeinx MD 05/30/2025 9:45 AM EDT Infusion Center Hematology/Oncolog y [address] [place] [address] 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); Renal cell carcinoma of left kidney (HCC) 05/30/2025 9:20 AM EDT Visit (SP) Office Hematology/Oncolog y [address] [place] [address] Ernesto Phoenix MD Renal cell carcinoma of left kidney (HCC) (Primary Dx); 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 05/16/2025 9:20 AM EDT Visit (SP) Office Hematology/Oncolog y [address] [place] [address] Ernesto Phoenix MD Renal cell carcinoma of left kidney (HCC) (Primary Dx) 05/16/2025 Travel 05/12/2025 Patient [facility] -[facility] [address] [place] [address] Isabela Kenny [facility] Lenvima free drug application 05/12/2025 Telephone Hematology/Oncolog y [address] [place] [address] 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, RN Care Coordination (Medication update) 05/12/2025 Telephone Hematology/Oncolog y [address] [place] [address] 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, RN Care Coordination (Medication question) 05/12/2025 Refill Hematology/Oncolog y [address] [place] [address] Ernesto Phoenix MD Refill Request 05/11/2025 Refill Hematology/Oncolog y [address] [place] [address] Ernesto Phoenix MD Refill Request 05/09/2025 9:45 AM EDT Infusion Center Hematology/Oncolog y [address] [place] [address] 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 [facility] Free Drug application 04/21/2025 Telephone Hematology/Oncolog y [address] [place] [address] Riya Villeda, RN Care Coordination (C1D1 Post Treatment Call & Oral Anti-Cancer Agent Follow Up) 04/21/2025 Orders Only Hematology/Oncolog y [address] [place] [address] Luz Maria Mcrae APRN.[facility] Renal cell carcinoma of left kidney (HCC) (Primary Dx) 04/18/2025 10:00 AM EDT Nurse Visit Hematology/Oncolog y [address] [place] [address] Cheryl Ellis Nurse Michael High risk medication use (Primary Dx); Renal cell carcinoma of left kidney (HCC) 04/18/2025 10:00 AM EDT Infusion Center Hematology/Oncolog y [address] [place] [address] 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); Renal cell carcinoma of left kidney (HCC) 04/18/2025 9:40 AM EDT Visit (SP) Office Hematology/Oncolog y [address] [place] [address] Ernesto Phoenix MD Renal cell carcinoma of left kidney (HCC) (Primary Dx) 04/18/2025 Social Work Hematology/Oncolog y [address] [place] [address] Myrtle Holland LSW 04/18/2025 Telephone Hematology/Oncolog y [address] [place] [address] Riya Villeda, JUANA Care Coordination (Lenvatinib Start Date) 04/18/2025 Education Hematology/Oncolog y [address] [facility] [place] [address] Riya Villeda, JUANA Oral Anti-cancer Agent Education (Lenvatinib) 04/18/2025 Travel 04/17/2025 1:30 PM EDT Education Nutrition Therapy [address] [place] [id number] Yesica Calderon, DARYL Nutrition Assessment 04/16/2025 Travel 04/15/2025 Telephone Hematology/Oncolog y [address] [facility] [place] [address] Ernesto Phoenix MD Lab Orders 04/11/2025 Social Work Hematology/Oncolog y [address] [facility] [place] [address] Myrtle Holland LSW 04/10/2025 Telephone Hematology/Oncolog y [address] [place] [address] [place] [address] 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 RN Care Coordination (Treatment plan) 04/10/2025 Telephone [facility] [address] [place] [address] Isabela Kenny RPh Medication Authorization (Lenvima) 04/09/2025 1:00 PM EDT Visit (SP) Office Hematology/Oncolog y [address] [place] [address] Gerald Young MD 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); Renal cell carcinoma of left kidney (HCC); High risk medication use; Thyroid nodule 04/09/2025 Telephone Hematology/Oncolog y [address] [place], [place] [id number] Madelin Mc RN Nm Pet Request 04/09/2025 Telephone Hematology/Oncolog y [address] [facility] [place] [address] Ernesto Phoenix MD 04/09/2025 Patient [facility] HB-[address] [place] [address] Isabela Kenny RPh Cabom[employer]x Prescription 04/09/2025 Refill [facility] [address] [place] [address] Isabela Kenny [facility] Refill Request 04/07/2025 1:20 PM EDT Visit (SP) Office Hematology/Oncolog y [address] [facility] [place] [address] Ernesto Phoenix MD Renal cell carcinoma of left kidney (HCC) (Primary Dx) 04/07/2025 1:00 PM EDT Nurse Visit Hematology/Oncolog y [address] [place] [address] 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, 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 cell carcinoma of left kidney (HCC) (Primary Dx) 04/07/2025 Telephone Cancer Appts [address] [place] [address] Ernesto Phoenix MD Referral Information 04/07/2025 Abstract Hematology/Oncolog y [address] [facility] [place] [address] Aminata Flor RN Research ([id number] Informed Consent) 04/07/2025 Travel 04/07/2025 Orders Only Hematology/Oncolog y [address] [place] [address] Ernesto Phoenix MD Renal cell carcinoma of left kidney (HCC) (Primary Dx) 04/02/2025 Telephone [facility] [address] [place] [address] Isabela Kenny [facility] Medication Update (Cabometyx) 04/02/2025 Telephone Urology [address] [place] [address] Rivera Arvizu MD Release back to work letter 04/02/2025 Telephone Hematology/Oncolog y [address] [place] [address] Ernesto Phoenix MD Nephrology Referral 04/02/2025 Orders Only Hematology/Oncolog y [address] [facility] [place] [address] Tamika Evans RPh 04/02/2025 Telephone Hematology/Oncolog y [address] [facility] [place] [address] Ernesto Phoenix MD 04/01/2025 11:00 AM EDT Nurse Visit Hematology/Oncolog y [address] [place] [address] 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, RN Encounter for education (Primary Dx); Renal cell carcinoma of left kidney (HCC) 04/01/2025 8:45 AM EDT - 04/01/2025 11:59 PM EDT Hospital Encounter Radiology Pet CT [address] [facility] [place] [address] Renal cell carcinoma of left kidney (HCC) [C64.2] Discharge Disposition: Home 04/01/2025 Get Medical Advice Hematology/Oncolog y [address] [facility] [place] [address] Ernesto Phoenix MD Fmla paper work 03/28/2025 Telephone Hematology/Oncolog y [address] [place] [address] [place] [address] 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, RN Care Coordination (Treatment prep) from Last 3 Months Immunizations Immunization Administration Dates Next Due COVID-19 vaccine (NOVAVAX) 06/29/2024 COVID-19 vaccine, age 12+ yr (MODERNA SPIKEVAX) 07/08/2023 Social History Tobacco Use Types Packs/Day Years [...] [facility] [email or web address] Last address used for calculation [address] [place] [address] 01/03/2025 Sex and Gender Information Value Date [...] Mass Index 38.57 06/20/2025 9:08 AM EDT Plan of Treatment Upcoming Encounters Date Type Department Care Team (Latest Contact Info) Description 07/11/2025 9:00 AM EDT Office Visit [facility] [address] [place] [address] [place] [address] LABS 07/11/2025 9:20 AM EDT Visit (SP) Office Hematology/Oncology [address] [place] [address] [place] [address] Ernesto Phoenix MD [address] [facility] [place] [address] Pet scan and lab 07/11/2025 9:40 AM EDT [facility] Center Hematology/Oncology [address] [facility] [place] [address] Pet scan and lab 07/30/2025 2:[address] [facility] Hematology/Oncology [address] [place] [address] Gerald Young MD [address] [place] [address] pt req virtual appointment after scans due to work schedule and treatment dates Health Maintenance Due Date Last Done Comments [...] Procedure Name Priority Date/Time Associated Diagnosis Comments PROTEIN CREATININE RATIO Routine 025 9:02 AM EDT Renal cell carcinoma of left kidney (HCC) COMPREHENSIVE METABOLIC PANEL Routine 06/20/2025 8:56 AM EDT Renal cell carcinoma of left kidney (HCC) CBC + DIFF Routine 06/20/2025 8:56 AM EDT Renal cell carcinoma of left kidney (HCC) NM PET/CT SKULL-THIGH SUBSEQUENT Routine 06/17/2025 3:24 PM EDT Renal cell carcinoma of left kidney (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) GLUCOSE, BLOOD (POC) Routine 06/17/2025 1:37 PM EDT EXTERNAL IMAGING 06/11/2025 10:37 AM EDT EXTERNAL IMAGING 06/10/2025 8:13 AM EDT EXTERNAL IMAGING 06/10/2025 8:13 AM EDT PROTEIN CREATININE RATIO Routine 025 4:02 PM EDT Renal cell carcinoma of left kidney (HCC) COMPREHENSIVE METABOLIC PANEL Routine 06/09/2025 3:18 PM EDT Renal cell carcinoma of left kidney (HCC) CBC + DIFF Routine 06/09/2025 3:18 PM EDT Renal cell carcinoma of left kidney (HCC) PROTEIN CREATININE RATIO Routine 025 10:42 AM EDT Renal cell carcinoma of left kidney (HCC) URINALYSIS, DIPSTICK ONLY Routine 2024 10:42 AM EDT Renal cell carcinoma of left kidney (HCC) MAGNESIUM BLD Routine 05/30/2025 8:54 AM EDT Renal cell carcinoma of left kidney (HCC) T4 FREE/FREE THYROX Routine 05/30/2025 8:54 AM EDT High risk medication use TSH BLD Routine 05/30/2025 8:54 AM EDT High risk medication use COMPREHENSIVE METABOLIC PANEL Routine 05/30/2025 8:54 AM EDT Renal cell carcinoma of left kidney (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) CBC + DIFF Routine 05/30/2025 8:54 AM EDT Renal cell carcinoma of left kidney (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) COMPREHENSIVE METABOLIC PANEL Routine 05/16/2025 9:02 AM EDT Renal cell carcinoma of left kidney (HCC) CBC + DIFF Routine 05/16/2025 9:02 AM EDT Renal cell carcinoma of left kidney (HCC) URINALYSIS, WITH MICROSCOPIC Routine 05/09/2025 11:02 AM EDT Renal cell carcinoma of left kidney (HCC) MAGNESIUM BLD Routine 05/09/2025 9:01 AM EDT Renal cell carcinoma of left kidney (HCC) COMPREHENSIVE METABOLIC PANEL Routine 05/09/2025 9:01 AM EDT Renal cell carcinoma of left kidney (HCC) CBC + DIFF Routine 05/09/2025 9:01 AM EDT Renal cell carcinoma of left kidney (HCC) EXTERNAL CARDIOLOGY 05/07/2025 2:08 PM EDT CARDIAC 04/18/2025 11:43 AM EDT ECG COMPLETE [...] kidney (HCC) LD LACTATE DEHYDRO Routine 04/07/2025 2:28 PM EDT Renal cell carcinoma of left kidney (HCC) COMPREHENSIVE METABOLIC PANEL Routine 04/07/2025 2:28 PM EDT Renal cell carcinoma of left kidney (HCC) CBC + DIFF Routine 04/07/2025 2:28 PM EDT Renal cell carcinoma of left kidney (HCC) [facility] SEND OUT TST 1 Routine 04/07/2025 2:28 PM EDT Renal cell carcinoma of left kidney (HCC) NM PET/CT SKULL-THIGH INITIAL Routine 04/01/2025 10:37 AM EDT Renal cell carcinoma of left kidney (HCC) GLUCOSE, BLOOD (POC) Routine 04/01/2025 8:55 AM EDT HEMOGLOBIN A1C Routine 02/07/2025 2:41 PM EDT Pre-op evaluation from Last 3 Months or Most Recently Relevant to Health Maintenance Results * (ABNORMAL) PROTEIN / CREATININE RATIO (06/20/2025 9:02 AM EDT) Only the most recent of3 resultswithin the time period is included. Protein, Urine Random 254(H) 0 - 20 mg/dL 06/20/2025 9:08 PM EDT [facility] Creatinine, Ur Random (UCRR) 146.6 20.0 - 300.0 mg/dL 06/20/2025 9:08 PM EDT [facility] Protein/Creat Ratio 1.73(H) <0.15 mg/mg 06/20/2025 9:08 PM EDT [facility] Comment: Adult Proteinuria Categories: <0.15 [...] Ernesto Phoenix MD LABORATORY Final Res ult [facility] [address] [facility] [address] [address], * (ABNORMAL) COMPREHENSIVE METABOLIC PANEL (06/20/2025 8:56 AM EDT) Only the most recent of7 resultswithin the time period is included. [facility] Protein, Total 6.9 6.3 - 8.0 g/dL 06/20/2025 9:17 AM [facility] Albumin 3.9 3.9 - 4.9 g/dL 06/20/2025 9:17 AM T [facility] Calcium, Total 8.4(L) 8.5 - 10.2 mg/dL 06/20/2025 9:17 AM [facility] Bilirubin, Total 0.4 0.2 - 1.3 mg/dL 06/20/2025 9:17 AM [facility] Alkaline Phosphatase 72 38 - 113 U/L 06/20/2025 9:17 AM [facility] AST 14 14 - 40 U/L 06/20/2025 9:17 AM [facility] ALT 10 10 - 54 U/L 06/20/2025 9:17 AM [facility] Glucose 139(H) 74 - 99 mg/dL 06/20/2025 9:17 AM [facility] Comment: The [place] [employer] (ADA) provides guidance for cutoff [...] Standards of Medical Care in Diabetes 2016, [place] [employer]. Diabetes Care. 2016.39(Suppl 1). BUN 32(H) 9 - 24 mg/dL 06/20/2025 9:17 AM [facility] Creatinine 2.23(H) 0.73 - 1.22 mg/dL 06/20/2025 9:17 AM EDT [facility] Sodium 136 136 - 144 mmol/L 06/20/2025 9:17 AM EDT [facility] Potassium 4.1 3.7 - 5.1 mmol/L 06/20/2025 9:17 AM EDT [facility] Chloride 99 98 - 107 mmol/L 06/20/2025 9:17 AM EDT [facility] CO2 26 22 - 30 mmol/L 06/20/2025 9:17 AM EDT [facility] Anion Gap 11 8 - 15 mmol/L 06/20/2025 9:17 AM EDT [facility] Estimated Glomerular Filtration Rate 32(L) >=60 mL/min/1. 73m 06/20/2025 9:17 AM EDT [facility] Comment:Estimated Glomerular Filtration Rate (eGFR) is [...] Ernesto Phoenix MD LABORATORY Final Res ult [facility] [address] [place] [address] * (ABNORMAL) COMPLETE BLOOD COUNT AND DIFFERENTIAL (06/20/2025 8:56 AM EDT) Only the most recent of7 resultswithin the time period is included. WBC 8.16 3.70 - 11.00 k/uL 06/20/2025 9:01 AM EDT [facility] RBC 4.11(L) 4.20 - 6.00 m/uL 06/20/2025 9:01 AM EDT [facility] Hemoglobin 10.9(L) 13.0 - 17.0 g/dL 06/20/2025 9:01 AM EDT [facility] Hematocrit 34.0(L) 39.0 - 51.0 % 06/20/2025 9:01 AM EDT [facility] MCV 82.7 80.0 - 100.0 fL 06/20/2025 9:01 AM EDT [facility] MCH 26.5 26.0 - 34.0 pg 06/20/2025 9:01 AM EDT [facility] MCHC 32.1 30.5 - 36.0 g/dL 06/20/2025 9:01 AM [facility] RDW-CV 16.6(H) 11.5 - 15.0 % 06/20/2025 [facility] Platelet Count 166 150 - 400 k/uL 06/20/2025 9:01 AM [facility] MPV 9.9 9.0 - 12.7 fL 06/20/2025 9:01 AM [facility] Neutrophils % 78.6 % 06/20/2025 9:01 [facility] Abs Neut 6.41 1.45 - 7.50 k/uL 06/20/2025 9:01 AM EDT [facility] Lymphocytes % 12.9 % 06/20/2025 9:01 AM EDT [facility] Abs Lymph 1.05 1.00 - 4.00 k/uL 06/20/2025 9:01 [facility] Monocytes % 5.1 % 06/20/2025 9:01 [facility] Abs Harmon 0.42 <0.87 k/uL 06/20/2025 9:01 AM EDT [facility] Eosinophils % 2.3 % 06/20/2025 9:01 AM EDT [facility] Abs Eosin 0.19 <0.46 k/uL 06/20/2025 9:01 AM EDT [facility] Basophils % 0.9 % 06/20/2025 9:01 AM EDT [facility] Abs Baso 0.07 <0.11 k/uL 06/20/2025 9:01 AM EDT [facility] Immature Granulocytes % 0.2 % 06/20/2025 9:01 AM EDT [facility] Abs Immature Gran <0.03 <0.10 k/uL 06/20/2025 9:01 AM EDT [facility] NRBC 0.0 /100 WBC 06/20/2025 9:01 AM EDT [facility] Absolute nRBC <0.01 <0.01 k/uL 06/20/2025 9:01 AM EDT [facility] Diff Type Auto 06/20/2025 9:01 AM EDT [facility] Blood BLOOD SPECIMEN / Unknown Venipuncture / Unknown 06/20/2025 8:56 AM EDT 06/20/2025 8:56 AM EDT us Ernesto Phoenix MD LABORATORY Final Res ult [facility] [address] [place] [address] * NM PET/CT SKULL-THIGH SUBSEQUENT (06/17/2025 3:24 [...] * Uptake Time: 57 minutes * Radiopharmaceutical: [id number] (FDG) COMPARISON: 04/01/2025 CORRELATION: Outside CT 12/14/2024 [...] any questions regarding this interpretation, please call [phone]. If you are unable to reach us at the number above, please feel free to contact [facility] at [phone]. Procedure Note Provider, [facility] - 06/17/2025 * * *Final Report* * [...] * Uptake Time: 57 minutes * Radiopharmaceutical: [id number] (FDG) COMPARISON: 04/01/2025 CORRELATION: Outside CT 12/14/2024 [...] any questions regarding this interpretation, please call [phone]. If you are unable to reach us at the number above, please feel free to contact [facility] at [phone]. us Gerald Young MD NM-PAMA Final Resu lt * GLUCOSE, BLOOD (POC) (06/17/2025 1:37 PM EDT) Only the most recent of2 resultswithin the time period is included. Glucose, Point of Care 76 74 - 99 mg/dL [facility] Comment: Location:[facility], [address] [place] [address] Dr[place], [place], [address] The Accu-Chek Inform II glucose meter has [...] us Ccf Provider POC TESTING Final Result [facility] POINT OF CARE [address] [place], [place] * EXTERNAL IMAGING (06/11/2025 10:37 AM EDT) Anatomical Region Laterality Modality Other us External Provider PA-C RADIOLOGY Final Res ult * EXTERNAL IMAGING (06/10/2025 8:13 AM EDT) Anatomical Region Laterality Modality Other us External Provider PA-C RADIOLOGY Final Res ult * EXTERNAL IMAGING (06/10/2025 8:13 AM EDT) Anatomical Region Laterality Modality Other us External Provider PA-C RADIOLOGY Final Res ult * (ABNORMAL) URINALYSIS, DIPSTICK ONLY (05/30/2025 10:42 AM EDT) Color Yellow Yellow 05/30/2025 2:09 PM EDT [facility] Clarity Cloudy(A) Clear 05/30/2025 2:09 PM EDT [facility] Glucose, Urine Negative Negative 05/30/2025 2:09 PM EDT [facility] Bilirubin, Urine Negative Negative 05/30/20 25 2:09 PM EDT [facility] Ketones, Urine Negative Negative 05/30/2025 2:09 PM EDT [facility] Specific [place], Ur 1.018 1.005 - 1.030 05/30/2025 2:09 PM EDT [facility] Hemoglobin/Blood ,Ur Negative Negative 05/30/2025 2:09 PM EDT [facility] pH, Urine 5.5 5.0 - 8.0 05/30/2025 2:09 PM EDT [facility] Protein, Urine 2+(A) Negative 05/30/2025 2:09 PM EDT [facility] Urobilinogen 0.2 EU/dL 0.2-1.0 EU/dL 05/30/2025 2:09 PM EDT [facility] Nitrites Negative Negative 05/30/2025 2:09 PM EDT [facility] Leuk Esterase Negative Negative 05/30/2025 2:09 PM EDT [facility] Urine URINE SPECIMEN / Unknown Non Blood / Unknown 05/30/2025 10:42 AM EDT 05/30/2025 10:43 AM EDT us Ernesto Phoenix MD LABORATORY Final Res ult [facility] [address] [place] [address], * MAGNESIUM (05/30/2025 8:54 AM EDT) Only the most recent of2 resultswithin the time period is included. Magnesium 1.8 1.7 - 2.3 mg/dL 05/30/2025 9:36 AM EDT [facility] Blood BLOOD SPECIMEN / Unknown Venipuncture / Unknown 05/30/2025 8:54 AM EDT 05/30/2025 8:55 AM EDT us Ernesto Phoenix MD LABORATORY Final Res ult [facility] [address] [place] [address] * THYROID STIMULATING HORMONE (05/30/2025 8:54 AM EDT) Only the most recent of2 resultswithin the time period is included. TSH 3.610 0.270 - 4.200 mIU/L 05/30/2025 8:35 PM EDT [facility] Blood BLOOD SPECIMEN / Unknown Venipuncture / Unknown 05/30/2025 8:54 AM EDT 05/30/2025 8:55 AM EDT us Gerald Young MD LABORATORY Final Resu lt Performing Organization Address City/[facility]/ZIP Co de Phone Number [facility] [address] [id number], [place] * T4 FREE/FREE THYROXINE (05/30/2025 8:54 AM EDT) Free T4 0.9 0.9 - 1.7 ng/dL 05/30/2025 8:35 PM EDT [facility] Blood BLOOD SPECIMEN / Unknown Venipuncture / Unknown 05/30/2025 8:54 AM EDT 05/30/2025 8:55 AM EDT us Gerald Young MD LABORATORY Final Resu lt [facility] [address] [place] [address], [place] * (ABNORMAL) URINALYSIS, WITH MICROSCOPIC (05/09/2025 11:02 AM EDT) Color Yellow Yellow 05/09/2025 2:49 PM EDT [facility] Clarity Clear Clear 05/09/2025 2:49 PM EDT [facility] Glucose, Urine Negative Negative 05/09/2025 2:49 PM EDT [facility] Bilirubin, Urine Negative Negative 05/09/20 2:49 PM EDT [facility] Ketones, Urine Negative Negative 05/09/2025 2:49 PM EDT [facility] Specific [place], Ur 1.017 1.005 - 1.030 05/09/2025 2:49 PM EDT [facility] Hemoglobin/Blood ,Ur Negative Negative 05/09/2025 2:49 PM EDT [facility] pH, Urine 6.0 5.0 - 8.0 05/09/2025 2:49 PM EDT [facility] Protein, Urine 1+(A) Negative 05/09/2025 2:49 PM EDT [facility] Urobilinogen 0.2 EU/dL 0.2-1.0 EU/dL 05/09/2025 2:49 PM EDT [facility] Nitrites Negative Negative 05/09/2025 2:49 PM EDT [facility] Leuk Esterase Negative Negative 05/09/2025 2:49 PM EDT [facility] WBC, Urine 0-5 /HPF 0-5 /HPF 05/09/2025 2:49 PM EDT [facility] RBC, Urine 0-2 /HPF 0-2 /HPF 05/09/2025 2:49 PM EDT [facility] Bacteria Negative Negative /HPF 05/09/2025 2:49 PM EDT [facility] Squamous Epithelial Cells None Seen /HPF 05/09/2025 2:49 PM EDT [facility] Casts, Hyaline 0 /LPF 0 /LPF 05/09/2025 2:49 PM EDT [facility] Urine URINE SPECIMEN / Unknown Non Blood / Unknown 05/09/2025 11:02 AM EDT 05/09/2025 11:08 AM EDT Narrative [facility] - 05/09/2025 2:49 PM EDT This test was developed and its performance characteristics determined by [facility]'s [facility] [place] ([facility]). It has not been cleared or approved by the FDA. [facility] is regulated under CLIA as qualified to perform high-complexity testing. This test is used for clinical purposes. It should not be regarded as investigational or for research. Ernesto Phoenix MD LABORATORY Final Res ult [facility] [address] [facility] [address] [place] [address], [place] * EXTERNAL CARDIOLOGY (05/07/2025 2:08 PM EDT) External Provider PA-C CARDIOLOGY Final Res ult * CARDIAC (04/18/2025 11:43 AM EDT) Narrative 04/18/2025 11:43 AM EDT Ordered by an unspecified provider. [facility] Provider CARDIOLOGY Final Result * EXTERNAL IMAGING (04/08/2025 9:39 AM EDT) Anatomical Region Laterality Modality Other External Provider PA-C RADIOLOGY Final Res ult * FOUNDATIONONELIQUIDCDX (04/07/2025 2:28 PM EDT) [facility] Result Status See Report for Final Results [facility] Order Test ID: [id number] 04/18/2025 9:53 AM EDT [facility] Microsatellite Status MSI-High Not Detected 04/18/2025 9:53 AM EDT [facility] Blood Tumor Mutational Ewen 3 Muts/Mb 04/18/2025 9:53 AM T [facility] ctDNA Tumor Fraction Low (< 1.0%) 04/18/2025 9:53 AM [facility] Blood Venipuncture / Unknown 04/07/2025 2:28 PM EDT 04/07/2025 2:28 PM EDT Narrative This result has genomic variants that were not included in this document. Ernesto Phoenix MD LABORATORY Final Res ult [facility] [address] [place] [address], * (ABNORMAL) LACTATE DEHYDROGENASE (04/07/2025 2:28 PM EDT) LD 116(L) 135 - 225 U/L 04/07/2025 3:00 PM EDT [facility] Blood BLOOD SPECIMEN / Unknown Venipuncture / Unknown 04/07/2025 2:28 PM EDT 04/07/2025 2:28 PM EDT Ernesto Phoenix MD LABORATORY Final Res ult [facility] [address] [place] [id number] * MISC SEND OUT TST 1 (04/07/2025 2:28 PM EDT) Test 1 04/14/2025 3:02 PM EDT [facility] Comment:Research Test Results 1 04/14/2025 3:02 PM EDT [facility] Comment:Research Referral Lab 1 04/14/2025 3:02 PM EDT [facility] Comment:Research Blood VENOUS BLOOD SPECIMEN / Unknown Venipuncture / Unknown 04/07/2025 2:28 PM EDT 04/07/2025 2:28 PM EDT Ernesto Phoenix MD LABORATORY Final Res ult [facility] [address] [address], [place] * NM PET/CT SKULL-THIGH INITIAL (04/01/2025 [...] * Uptake Time: 60 minutes * Radiopharmaceutical: [id number] (FDG) COMPARISON: No previous FDG PET/CT available [...] any questions regarding this interpretation, please call [phone]. If you are unable to reach us at the number above, please feel free to contact [facility] at [phone]. Procedure Note Provider, [facility] [place] - 04/01/2025 * * *Final Report* * [...] * Uptake Time: 60 minutes * Radiopharmaceutical: [id number] (FDG) COMPARISON: No previous FDG PET/CT available CORRELATION: [facility] CT abdomen/pelvis 12/14/2024 RESULT: REFERENCES: FDG uptake [...] any questions regarding this interpretation, please call [phone]. If you are unable to reach us at the number above, please feel free to contact [facility]iology at [phone]. us Ernesto Phoenix MD NM-PAMA Final Res ult * HEMOGLOBIN A1C (02/07/2025 2:41 PM EDT) Hemoglobin A1C 5.4 4.3 - 5.6 % 02/08/2025 4:25 PM EDT [facility] Comment:[place] Diabetes As sociation guidelines indicate that patients with HgbA1c in the range 5.7-6.4% are at increased risk for development of diabetes, and intervention by lifestyle modification may be beneficial. HgbA1c greater or equal to 6.5% is considered diagnostic of diabetes. Estimated Average Glucose 108 mg/dL 02/08/2025 4:25 PM EDT [facility] Comment:eAG: (Estimated aver age glucose) is a calculated value from HgbA1c and is accounts receivable representative of the average blood glucose level in the last 2-3 month period. Blood BLOOD SPECIMEN / Unknown Venipuncture / Unknown 02/07/2025 2:41 PM EDT 02/07/2025 2:42 PM EDT us Veronica Romero APRN.[facility]ORAT[facility] Fin al Result [facility] [address] [address], [place] from Last 3 Months or Most Recently Relevant to Health Maintenance Insurance [facility] Care Teams Car Attendant Relationship Specialty Start Date End Date Jessica Murphy SH[employer] TURNER [address] [place] [address] PCP - General Internal Medicine 02/07/25 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 RN [address] [place] [address] Specialty Finance Associate Hematology/Oncology 03/28/25 Ernesto Phoenix MD [address] [place] [address] Physician Hematology/Oncology 03/28/25 [place] [address] [place] [address] Physician Hematology 04/09/25 Madelin Mc RN Specialty Finance Associate Hematology/Oncology 04/09/25 Myrtle Holland LSW Water Filterer 04/11/[address] [place] [address] Nutrition 04/17/25
--- OUTSIDE RECORDS SUMMARY | 2025-06-21 07:59 | XMS_ITS ---
Author Organization [facility] Address [address] [place], [place] [phone] Care Team Providers Care Gluing Crew Leader Name Role Phone Jessica Murphy CNP Primary Care Provider + 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 RN Unavailable [phone] Ernesto Phoenix MD Unavailable [phone] Gerald Young MD Unavailable [phone] Madelin Mc RN Unavailable Unavailable Myrtle Holland [...] Medications Current Day (Day 1 , Cycle 5 - Planned for 07/11/2025) Next Day (Day 1, Cycle 6 - Planned for 08/01/2025) pembrolizumab IV infusion (KEYTRUDA) pembrolizumab 200 mg in NaCl 0.9% 58 mL (KEYTRUDA) pembrolizumab 200 mg in NaCl 0.9% 58 mL (KEYTRUDA) Other Current Plans IRON SUCROSE X 2 DOSES - OVER 2 WEEKS* Plan Start Date:02/17/2025 Plan Provider:Veronica Romero APRN.SALES AND MARKETING ENGINEER Linked Problems Intestinal malabsorption, un specified type [...]
--- OUTSIDE RECORDS SUMMARY | 2025-06-21 07:59 | XMS_ITS | Encounter Summary ---
Author Organization [facility] Address [address] [place] [address] Care Team Providers Care Network Account Manager Name Role Phone Jessica Murphy CNP Primary Care Provider + 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 RN Unavailable [phone] Ernesto Phoenix MD Unavailable [phone] Gerald Young MD Unavailable [phone] Madelin Mc RN Unavailable Unavailable Myrtle Holland Unavailable Unavailable Yesica Calderon RD Unavailable Source Comments In the event this information is protected by the Federal Confidentiality of Alcohol and Drug AbusePatient Records regulations: The Federal rules restrict any use of the information to criminally investigate or prosecute any alcohol or drug abuse patient.[facility] Encounter Details Date Type Department Care Team (Late st Contact Info) Description 03/10/2025 Patient Update [facility] Provider Adult [address] [id number] Tamanna Zhu APRN.[place] [address] [place] [address] Social History Tobacco Use Types Packs/Day Years [...] lower risk 6 01/03/2025 Data from: https://www.neighborhoodatlas.[facility]/. Last address used for calculation [address] 01/03/2025 Sex and Gender Information Value [...] Description 07/11/2025 9:00 AM EDT Office Visit [facility] [address] [place] [address] LABS 07/11/2025 9:20 AM EDT Visit (SP) Office Hematology/Oncology [address] [place] [address] Ernesto Phoenix MD [address] [place] [address] Pet scan and lab 07/11/2025 9:40 AM EDT [facility] Hematology/Oncology [address] [facility] [place] [address] Pet scan and lab 07/30/2025 2:30 PM EDT [facility] Hematology/Oncology [address] [place] [address] Gerald Young MD [address] [place] [address] pt req virtual appointment after scans due to work schedule and treatment dates documented as of this encounter Visit Diagnoses Not on filedocumented in this encounter Care Teams Network Account Manager Relationship Specialty Start Date End Date Jessica Murphy CNP [facility] [place] [address] PCP - General Internal Medicine 02/07/25 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 RN [address] [place] [address] Specialty Financial Aids Officer Hematology/Oncology 03/28/25 Ernesto Phoenix MD [address] [place] [address] Physician Hematology/Oncology 03/28/25 [place] [address] [place] [address] Physician Hematology 04/09/25 Brown, Madelin M, RN Specialty Financial Aids Officer Hematology/Oncology 04/09/25 Myrtle Holland LSW Inspector Packager 04/11/25 Yesica Calderon, DARYL [address] [place] [address] Nutrition 04/17/25 documented as of this encounter
--- OUTSIDE RECORDS SUMMARY | 2025-06-21 08:00 | XMS_ITS | Encounter Summary ---
Author Organization [facility] Address [address] [place] [address] Care Team Providers Care Storage Specialist Name Role Phone Jessica Murphy CNP Primary Care Provider + 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 RN Unavailable [phone] Ernesto Phoenix MD Unavailable [phone] Gerald Young MD Unavailable [phone] Madelin Mc RN Unavailable Unavailable Myrtle Holland Unavailable Unavailable Yesica Caledron RD Unavailable Source Comments In the event this information is protected by the Federal Confidentiality of Alcohol and Drug AbusePatient Records regulations: The Federal rules restrict any use of the information to criminally investigate or prosecute any alcohol or drug abuse patient.[facility] Encounter Details Date Type Department Care Team (Late st Contact Info) Description 01/20/2025 Patient Msg [facility] [address] [place] [address] Provider, [facility] pre procedure instructions for 01/24/25 Social History Tobacco Use Types Packs/Day Years Used Date Smoking Tobacco: Never Assessed Area Deprivation Index Answer Date Roland rded National Score (1-100), lower number is lower ri sk 78 01/03/2025 State Score (1-10), lower number is lower risk 6 01/03/2025 Data from: https://www.neighborhoodatlas.medicine.[facility].edu/. Last address used for calculation [address] 01/03/2025 Sex and Gender Information Value [...] Office Visit [facility] [address] [place] [address] [place] [address] LABS 07/11/2025 9:20 AM EDT Visit (SP) Office Hematology/Oncology [address] [place] [address] [place] [address] Ernesto Phoenix MD [address] [place] [address] [place] [address] Pet scan and lab 07/11/2025 9:40 AM EDT [facility] Hematology/Oncology [address] [place] [address] [place] [address] Pet scan and lab 07/30/2025 2:30 PM EDT [facility] Hematology/Oncology [address] [place] [id number] Gerald Young MD [address] [address] pt req virtual appointment after scans due to work schedule and treatment dates documented as of this encounter Visit Diagnoses Not on filedocumented in this encounter Care Teams Storage Specialist Relationship Specialty Start Date End Date Jessica Murphy CNP [address] [place] [address] PCP - General Internal Medicine 02/07/25 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, RN [address] [place] [address] Specialty Interior Design Director Hematology/Oncology 03/28/25 Ernesto Phoenix MD [address] [place] [address] Physician Hematology/Oncology 03/28/25 [place] [address] [place] [address] Physician Hematology 04/09/25 Madelin Mc RN Specialty Interior Design Director Hematology/Oncology 04/09/25 Myrtle Holland LSW Consulting Property Manager 04/11/[address] [place] [address] Nutrition 04/17/25 documented as of this encounter
--- OUTSIDE RECORDS SUMMARY | 2025-06-21 08:00 | XMS_ITS | Encounter Summary ---
Author Organization [facility] Address [address] [place] [address] Care Team Providers Care Last Remodeler Repairer Name Role Phone Jessica Murphy CNP Primary Care Provider + 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 RN Unavailable [phone] Ernesto Phoenix MD Unavailable [phone] Gerald Young MD Unavailable [phone] Madelin Mc RN Unavailable Unavailable Myrtle Holland [...] Care Team (Late st Contact Info) Description 05/12/2025 Patient [facility] [address] [place] [address] Isabela Kenny, [address] [place] [address] [employer] free drug application Social History Tobacco Use Types Packs/Day [...] is lower risk 6 01/03/2025 Data from: https://www.neighborhoodatlas.medicine.[facility]/. Last address used for calculation [address] 01/03/2025 Sex and Gender Information Value [...] Description 07/11/2025 9:00 AM EDT Office Visit [facility] [address] [place] [address] LABS 07/11/2025 9:20 AM EDT Visit (SP) Office Hematology/Oncology [address] [place] [address] [place] [address] Ernesto Phoenix MD [address] [facility] [place] [address] Pet scan and lab 07/11/2025 9:40 AM EDT [facility] Hematology/Oncology [address] [place] [address] [place] [address] Pet scan and lab 07/30/2025 2:30 PM EDT [facility] Hematology/Oncology [address] [phone] Gerald Young MD [address] [place] [address] pt req virtual appointment after scans due to work schedule and treatment dates documented as of this encounter Visit Diagnoses Not on filedocumented in this encounter Care Teams Last Remodeler Repairer Relationship Specialty Start Date End Date Jessica Murphy CNP [address] [place] [address] PCP - General Internal Medicine 02/07/25 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, JUANA [address] [place] [address] Specialty Licensing Engineer Hematology/Oncology 03/28/25 Ernesto Phoenix MD [address] [place] [address] Physician Hematology/Oncology 03/28/25 [place] [address] [place] [phone] Physician Hematology 04/09/25 Madelin Mc, RN Specialty Licensing Engineer Hematology/Oncology 04/09/25 Myrtle Holland LSW Jogger Operator 04/11/25 Yesica Calderon, DARYL [address] [place] [address] Nutrition 04/17/25 documented as of this encounter
--- OUTSIDE RECORDS SUMMARY | 2025-06-21 08:00 | XMS_ITS | Patient Health Record ---
Author Organization [facility] in [place] Address [address] [place] [address] Care Team Providers Care Respiratory Therapy Manager Name Role Phone Katherine, Jessica Primary Care Provider Robert Martinez Rose [phone] Allergies No Known Allergies Results Component Value [...] ESTERASE (ATILIO) ++ NEG - NEG MG/DL PROF CHEM 8 (BAS METB) Reviewed date:03/11/2025 09:50:30 AM Interpretation: Performing Lab: Notes/Report: [facility] , Sodium 137 136-145 mmol/L Potassium [...] mg/dL Performing Lab: see note ML - [facility] LB CBC AUTO DIFF Reviewed date:05/26/2025 11:38:13 AM Interpretation: Performing Lab: Notes/Report: [facility] , White Blood Count 7.5 4.0-11.0 10 3/uL Red Blood Count 4.14 4.70-6.10 10 6/uL Hemoglobin 11.1 14.0-18.0 g/dL Hematocrit 33.6 42.0-54.0 % Mean Corpuscular Volume 81.2 80.0-94.0 fL Mean Corpuscular Hemoglobin 26.8 25.9-34.0 pg Mean Corpuscular HGB Conc 33.0 29.9-35.2 g/dL Red Cell Distribution Width 17.8 11.0-15.0 % Platelet Count 177 150-450 10 3/uL Mean Platelet Volume 9.8 9.5-13.5 fL Neutrophils Percent Auto 73.9 43.0-75.0 % Lymphocytes Percent Auto 15.2 20.5-60.0 % Monocytes Percent Auto 7.4 1.7-12.0 % Eosinophils Percent Auto 2.3 0.9-7.0 % Basophils Percent Auto 0.5 0.2-2.0 % Immature Granulocytes Pct Auto 0.7 0.0-0.5 % Neutrophils Absolute Auto 5.5 1.4-6.5 10 3/uL Lymphocytes Absolute Auto 1.1 1.2-3.8 10 3/uL Monocytes Absolute Auto 0.6 0.3-0.8 10 3/uL Eosinophils Absolute Auto 0.2 0.0-0.7 10 3/uL Basophils Absolute Auto 0.0 0.0-0.1 10 3/uL Immature Granulocytes Abs Auto 0.05 0.00-0.03 10 3/uL Performing Lab: see note ML - [facility] LB GLYCOHEMOGLOBIN A1C Reviewed date:05/26/2025 11:38:13 AM Interpretation: Performing Lab: Notes/Report: [facility] , Glycohemoglobin A1C 5.4 4.5-6.2 % ADA RECOMMENDED LIMIT 4.0 - 6.0 > 7.0 ADA THERAPEUTIC TARGET < 7.0 ACTION SUGGESTED Estimated Average Glucose 108 Performing Lab: see note ML - [facility] LB INSULIN Reviewed date:05/29/2025 09:17:27 AM Interpretation: Performing Lab: Notes/Report: [facility] , Insulin 20.6 2.6-24.9 uIU/mL [employer]: Suman Dewey PhD, Phone: [phone] Performed at: [facility] [address] [id number] Performing Lab: see note - [facility] LB PROF 14(COMP METB) Reviewed date:05/26/2025 11:38:13 AM Interpretation: Performing Lab: Notes/Report: [facility] , Sodium 138 136-145 mmol/L Potassium 4.7 3.5-5.1 mmol/L Chloride 103 98-107 mmol/L Carbon Dioxide 27.1 21.0-32.0 mmol/L Anion Gap 12.6 Glucose 99 74-106 mg/dL Blood Urea Nitrogen 19.0 7.0-18.0 mg/dL Creatinine 1.81 0.70-1.30 mg/dL Estimated GFR ( Yasmine 46 >=60 mL/min/1.73m 2 Estimated GFR (Non- Janis 38 >=60 mL/min/1.73m 2 BUN Creatinine Ratio 10.5 Calcium 8.7 8.5-10.1 mg/dL Bilirubin Total 0.4 0.2-1.0 mg/dL Aspartate Amino Transferase 19 15-37 U/L Alanine Aminotransferase 24 16-63 U/L Alkaline Phosphatase 79 46-116 U/L Total Protein 7.3 6.4-8.2 g/dL Albumin Level 3.1 3.4-5.0 g/dL Globulin 4.2 Albumin Globulin Ratio 0.7 Performing Lab: see note - [facility] LB T4 Reviewed date:05/26/2025 11:38:13 AM Interpretation: Performing Lab: Notes/Report: [facility] , T4 Thyroxine 5.50 4.50-12.10 ug/dL Performing Lab: see note - [facility] LB TSH Reviewed date:05/26/2025 11:38:13 AM Interpretation: Performing Lab: Notes/Report: [facility] , Thyroid Stimulating Hormone 3.213 0.358-3.740 uIU/mL Performing Lab: see note - [facility] LB URIC ACID SERUM Reviewed date:05/26/2025 11:38:13 AM Interpretation: Performing Lab: Notes/Report: [facility] , Uric Acid 4.2 3.5-7.2 mg/dL Performing Lab: see note ML - [facility] LB UA RANDOM W or MICROSCOPIC Reviewed date:10/10/2024 04:48:34 PM Interpretation: Performing Lab: Notes/Report: [facility] , Color Urine LT. YELLOW YELLOW Clarity Urine CLEAR CLEAR Specific [place] Urine 1.020 1.005-1.025 pH Urine 6.0 5.0-9.0 [...] #/LPF Performing Lab: see note ML - [facility] LB PSA SCREENING Reviewed date:05/26/2025 11:38:13 AM Interpretation: Performing Lab: Notes/Report: [facility] , Prostate Specific Antigen Scrn 0.16 <=4.00 ng/mL Performing Lab: see note ML - [facility] LB LIPID PROFILE Reviewed date:05/26/2025 11:38:13 AM Interpretation: Performing Lab: Notes/Report: [facility] , Triglycerides 313 <=150 mg/dL Cholesterol 148 <=200 mg/dL HDL Cholesterol 31 40-60 mg/dL <40 mg/dl - HIGH CARDIOVASCULAR RISK > or =60 mg/dl - LOW CARDIOVASCULAR RISK LDL Cholesterol Calculated 55.0 >190 mg/dl VERY HIGH 100-129 mg/dl NEAR OR ABOVE OPTIMAL 130-159 mg/dl BORDERLINE HIGH <100 mg/dl OPTIMAL 160-189 mg/dl HIGH VLDL CHOLESTEROL 62.6 Chol HDL Ratio 4.8 7.1 - 11.0 MODERATE RISK 4.4 - 7.1 AVERAGE RISK >11.0 HIGH RISK 3.3 - 4.4 LOW RISK Performing Lab: see note ML - [facility] FREE T3 Reviewed date:05/26/2025 11:38:13 AM Interpretation: Performing Lab: Notes/Report: [facility] , [facility] T3 2.24 2.18-3.98 pg/mL Performing Lab: see note - [facility] CA echo doppler complete Reviewed date:05/06/2025 09:25:35 AM Interpretation: Performing Lab: Notes/Report: Source Facility: [place] [address] Cardiology Report Signed Patient: HARMAN LE MR#: [id number] : 1960 Acct:[id number] Age/Sex: 65 / M ADM Date: 05/05/25 Loc: CARD Attending Dr: Pete Calhoun M.D. Ordering Physician: Pete Calhoun M.D. Date of Service: 05/05/25 Procedure(s): CA echo doppler complete Accession Number(s): [id number] cc: JESSICA MURPHY ; Pete Calhoun M.D. Patient Name: HARMAN LE MR#: [id number] : 1960 Exam Date: 05/05/2025 Ordering Doctor: PETE CALHOUN ECHOCARDIOGRAM REPORT PROCEDURE: CA ECHO DOPPLER COMPLETE INDICATIONS: Therapy with cardiotoxic agents for Renal Cell CA COMPARISON: None. DESCRIPTION: COMPLETE ECHOCARDIOGRAM Real-time transthoracic echocardiography with 2D, M-mode, spectral and color flow Doppler performed. QUALITY: Technical quality was good. LEFT VENTRICLE: Normal chamber size. Moderate concentric left ventricular hypertrophy. Global left ventricular systolic function is normal. Global longitudinal strain is normal at -20.2%. LV EF: Calculated left ventricular ejection fraction is 66%. DIASTOLIC: Normal diastolic function. ATRIAL SEPTUM: LEFT ATRIUM: Normal chamber size. RIGHT ATRIUM: Normal chamber size. RIGHT VENTRICLE: Normal chamber size. Normal right ventricular systolic function. TRICUSPID VALVE: Normal mobility and thickness. No stenosis with trivial regurgitation. No evidence of pulmonary hypertension. RVSP 20 mmHg. MITRAL VALVE: Normal mobility and thickness. No evidence of mitral valve stenosis. There is no mitral annular calcification. No mitral regurgitation. AORTIC VALVE: No visible sclerosis. Normal leaflet mobility. No evidence of aortic valve stenosis. Mild aortic regurgitation. AORTIC ROOT: Normal size aortic root measuring 3.9 cm. The ascending aorta is borderline in size, measures 3.7 cm. PULMONIC VALVE: Normal thickness and mobility. No stenosis. No regurgitation. PERICARDIUM: No evidence of pericardial effusion. IVC: Collapses with inspiration. Normal size PLEURA: CONCLUSION: 1. Moderate concentric left ventricular hypertrophy with normal systolic function. Calculated LVEF is 66%. Global longitudinal strain is normal at -20.2%. 2. Normal right ventricular size and systolic function. 3. Mild aortic regurgitation. 4. Normal diastolic function. 5. Normal right-sided pressures. Adult Echocardiography Procedure Report Left Ventricle LVEDD (3.7 - 5.6 cm): 5.04 cm LVESD (2.2 - 4.0 cm): 3.53 cm LVIVS thickness (0.6 - 1.2 cm): 1.45 cm LVPW thickness (0.5 - 1.0 cm): 1.27 cm e': 0.09 m/s E - e': 9.02 LVOT Diameter 2.57 cm Left Ventricular Ejection Fraction: 66 % Left Atrium LA Volume Index (2D A2C): 30.99 ml/m2 Left Atrium Systolic Dimension: 4.54 cm Mitral Valve MV E to A Ratio: 0.93 Mitral Valve A-Wave Peak Velocity: 0.87 m/s Mitral Valve E-Wave Peak Velocity: 0.81 m/s Right Ventricle RV Internal Diastolic Dimension: 4.61 cm Aorta AO Root Diam: 3.91 cm Ascending Ao Diam: 3.73 cm Aortic Valve Peak Velocity(Antegrade Flow): 1.28 m/s Peak Gradient(Antegrade Flow): 6.58 mm[Hg] Mean Velocity(Antegrade Flow): 0.86 m/s Mean Gradient(Antegrade Flow): 3.40 mm[Hg] Velocity Time Integral: 30.31 cm Tricuspid Valve Peak Velocity (Regurgitant Flow): 1.14 m/s, 2.06 m/s Pulmonic Valve Peak Velocity: 0.87 m/s Peak Gradient: 3.15 mm[Hg], 2.85 mm[Hg] Right Atrium Right Atrium Systolic Pressure: 128.15 ml, 128.15 ml Dictated by: Subhash Oden M.D. on 05/05/2025 at 19:04 Approved by: Subhash Oden M.D. on 05/05/2025 at 19:09 Dictated By: SUBHASH ODEN Signed By: 05/05/251909 DD/ 08 TD/TT: Director Call Center Sales: MR head/brain wo con Reviewed date:03/31/2025 03:42:23 PM Interpretation: Performing Lab: Notes/Report: Source Facility: [place] [address] Magnetic Resonance Report Signed Patient: HARMAN LE MR#: [id number] : 1960 Acct:[id number] Age/Sex: 65 / M ADM Date: 03/31/25 Loc: MRI Attending Dr: Pete Calhoun M.D. Ordering Physician: Pete Calhoun M.D. Date of Service: 03/31/25 Procedure(s): MR head/brain wo con Accession Number(s): [id number] cc: JESSICA MURPHY ; Pete Calhoun M.D. [place] [address] Patient Name: HARMAN LE MRN: [id number] date: 1960 Sex: M Assigned Patient Location: MRI Current Patient Location: MRI Accession/Order Number: [id number] Exam Date: 03/31/2025 14:50 Report Date: 03/31/2025 [...] Jr., D.O. 03/31/2025 2:56 PM Dictation Location: [place] [address] Electronically authenticated by: [id number] Y Date: 03/31/2025 14:56 Dictated By: Russell Lepe M.D. Signed By: 03/31/25 1458 DD/ 1456 TD/TT: Director Call Center Sales: POTASSIUM Reviewed date:03/20/2025 10:32:46 AM Interpretation: Performing Lab: Notes/Report: [facility] , Potassium 5.6 3.5-5.1 mmol/L Performing Lab: see note ML - [facility] LB CREATININE Reviewed date:03/20/2025 10:32:46 AM Interpretation: Performing Lab: Notes/Report: [facility] , Creatinine 2.14 0.70-1.30 mg/dL Estimated GFR ( Yasmine 38 >=60 mL/min/1.73m 2 Estimated GFR (Non- Janis 31 >=60 mL/min/1.73m 2 Performing Lab: see note ML - [facility] LB BUN Reviewed date:03/20/2025 10:32:46 AM Interpretation: Performing Lab: Notes/Report: [facility] , Blood Urea Nitrogen 35.0 7.0-18.0 mg/dL Performing Lab: see note ML - [facility] LB ECG 12 lead Reviewed date:03/12/2025 09:58:55 AM Interpretation: Performing Lab: Notes/Report: Source Facility: [facility] [place] [address] [place] [address] Electrocardiograph Report Signed Patient: HARMAN LE MR#: [id number] : 1960 Acct:[id number] Age/Sex: 65 / M ADM Date: 03/11/25 Loc: ER Attending Dr: Ordering Physician: Brianne Kunz Date of Service: 03/11/25 Procedure(s): ECG 12 lead Accession Number(s): [id number] cc: [facility] Test Date: 2025-03-11 Pat Name: HARMAN LE Department: Room: - 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 Measurements Intervals Roe Rate: 55 P: 42 CT: 134 QRS: 66 QRSD: 92 T: 57 QT: 416 QTc: 406 Interpretive Statements 1100 Sinus rhythm 9110 normal ECG No previous ECG available for comparison Electronically Signed On 03-11-2025 14:17:46 EDT by SUBHASH ODEN M.D. Dictated By: SUBHASH ODEN Signed By: 03/11/25 1418 DD/ 0728 TD/TT: Director Call Center Sales: PROF Packer(COMP METB) Reviewed date:03/11/2025 09:50:30 AM Interpretation: Performing Lab: Notes/Report: [facility] , Sodium 136 136-145 mmol/L Potassium [...] 0.5 Performing Lab: see note ML - [facility] LB CBC AUTO DIFF Reviewed date:03/11/2025 09:50:30 AM Interpretation: Performing Lab: Notes/Report: [facility] , White Blood Count 12.9 4.0-11.0 [...] Performing Lab: see note ML - [facility] LB CT abdomen pelvis wo con Reviewed date:12/16/2024 04:14:13 PM Interpretation: Performing Lab: Notes/Report: Source Facility: [facility]-[address] [place] [address] [place] [address] CT Scan Report Signed Patient: HARMAN LE MR#: [id number] : 1960 Acct:[id number] Age/Sex: 64 / M ADM Date: 12/14/24 Loc: CT Attending Dr: Nirmala SYED Ordering Physician: N[place]ala [place] Date of Service: 12/14/24 Procedure(s): CT abdomen pelvis wo/w con Accession Number(s): [id number] cc: JESSICA MURPHY [place] [id number] Patient Name: HARMAN LE MRN: [id number] date: 1960 Sex: M Assigned Patient Location: CT Current Patient Location: CT Accession/Order Number: [id number] Exam Date: 12/14/2024 13:23 Report Date: 12/14/2024 [...] Dedrick Marshall M.D.12/14/2024 1:35 PM Dictation Location: [place] [address] Electronically authenticated by: [id number] Y Date: 12/14/2024 13:35 Dictated By: Dedrick Marshall D.O. Signed By: 12/14/24 1337 DD/ 1335 TD/TT: Director Call Center Sales: CREATININE Reviewed date:12/16/2024 04:07:05 PM Interpretation: Performing Lab: Notes/Report: [facility] , Creatinine 1.53 0.70-1.30 mg/dL Estimated GFR ( Yasmine 56 >=60 mL/min/1.73m 2 Estimated GFR (Non- Janis 46 >=60 mL/min/1.73m 2 Performing Lab: see note - [facility] LB Box Test Reviewed date:10/10/2024 03:21:54 PM Interpretation: Performing Lab: Notes/Report: URINE CULTURE [facility] , BOX Test Sent Out URINE CULTURE BOX Test Reference Lab [facility] BOX Test Date Sent 10/08/24 BOX Test Result SEE SCANNED REPORT Performing Lab: see note - [facility] LB Urine Culture, Routine Reviewed date:09/24/2024 [...] Status Urine Culture, [facility], Routine Organism: 1.1 O:ESCHCO Isolated Organism: Escherichia coli. : Antibiotic Interpretation JENNYFER Status Urine Culture, Routine [address] [place], [place] [id number] Urine Culture, Routine Organism: 1.1 O:ESCHCO Isolated Organism: Escherichia coli. : Antibiotic Interpretation JENNYFER Status Urine Culture, Routine [employer]: Kunal Dewey PhD, Phone: [phone] Urine Culture, Routine Organism: 1.1 O:ESCHCO Isolated [...] Interpretation JENNYFER Status Urine Culture, Routine Trimethoprim/Sulf ameth oxazole S F Urine Culture, Routine Organism: 1.1 O:ESCHCO Isolated Organism: Escherichia coli. : Antibiotic Interpretation JENNYFER Status Urine Culture, Routine Piperacillin/Tazo bacta m S F Urine Culture, Routine Organism: 1.1 O:ESCHCO Isolated Organism: Escherichia coli. : Antibiotic Interpretation JENNYFER Status Performing Lab: see note SEE REPORT - Newspaper Editor Id information not found for OBX-specific video producer legend LC - [facility] LB UA RANDOM W or MICROSCOPIC Reviewed date:09/23/2024 09:32:27 AM Interpretation: Performing Lab: Notes/Report: [facility] , Color Urine LT. YELLOW YELLOW Clarity Urine CLEAR CLEAR Specific [place] Urine 1.020 1.005-1.025 pH Urine 6.0 5.0-9.0 [...] Performing Lab: see note ML - [facility] LB RENAL FUNCTION PANEL Reviewed date:05/27/2025 08:26:38 AM Interpretation: Performing Lab: Notes/Report: [facility] , Sodium 139 136-145 mmol/L Potassium 5.1 3.5-5.1 mmol/L Chloride 103 98-107 mmol/L Carbon Dioxide 29.6 21.0-32.0 mmol/L Anion Gap 11.5 Glucose 88 74-106 mg/dL Blood Urea Nitrogen 22.0 7.0-18.0 mg/dL Creatinine 2.20 0.70-1.30 mg/dL Estimated GFR ( Yasmine 37 >=60 mL/min/1.73m 2 Estimated GFR (Non- Janis 30 >=60 mL/min/1.73m 2 BUN Creatinine Ratio 10.0 Calcium 8.7 8.5-10.1 mg/dL Phosphorus 3.7 2.6-4.7 mg/dL Albumin Level 3.2 3.4-5.0 g/dL Performing Lab: see note - [facility] LB POTASSIUM Reviewed date:03/25/2025 09:30:11 AM Interpretation: Performing Lab: Notes/Report: [facility] , Potassium 5.1 3.5-5.1 mmol/L Performing Lab: see note - [facility] LB CREATININE Reviewed date:03/25/2025 09:30:01 AM Interpretation: Performing Lab: Notes/Report: [facility] , Creatinine 2.15 0.70-1.30 mg/dL Estimated GFR ( Yasmine 38 >=60 mL/min/1.73m 2 Estimated GFR (Non- Janis 31 >=60 mL/min/1.73m 2 Performing Lab: see note - [facility] LB BUN Reviewed date:03/25/2025 09:30:11 AM Interpretation: Performing Lab: Notes/Report: [facility] , Blood Urea Nitrogen 35.0 7.0-18.0 mg/dL Performing Lab: see note - [facility] LB Reason For Referral Diagnosis 1 Hematuria (R31.9) Referral Organization [facility] Referring Provider First Name Jessica Referring Provider Last Name Katherine Referring Provider [facility] Referred Provider Nikolai Rust Referred Provider Specialty Urology Referral Priority Routine Reason review Holter Diagnosis 1 Bradycardia (R00.1) Referral Organization [facility] Referring Provider First Name Jessica Referring Provider Last Name Katherine Referring Provider [facility] Referred Provider Subhash Oden Referred Provider Specialty Cardiology Referral Priority Routine Medications Medication SIG (Take, Route, Frequency, Duration) Notes Start Date End Date Status Metoprolol Tartrate 50 MG 1 tablet with food Orally Twice a day; Duration: 90 days 05/23/2025 Active amLODIPine Besylate 2.5 MG TAKE 1 TABLET BY MOUTH DAILY; Duration: 90 Active Allopurinol 300 MG TAKE 2 TABLETS BY MOUTH EVERY DAY; Duration: 90 days Active Colace Active Ondansetron HCl Acti ve PROzac 10 MG 1 capsule Orally Onc e a day; Duration: 30 days 09/20/2024 Active Dutasteride 0.5 MG 1 capsule Orally Onc e a day 03/03/2025 Active Lenvima (10 MG Daily Dose) 10 MG 1 capsule Orally Once a day Active Keytruda Every 3 weeks Active glipiZIDE 2.5 MG TAKE 1 TABLET BY MOUTH DAILY 30 MINUTES BEFORE BREAKFAST; Duration: 90 Active Social History Tobacco Use: Social History [...] Status W/U Status Risk Notes Problem Hypertension (86518704) HTN (hypertension) (I10) Active confirmed Problem Gout (79317225) Gout (M10.9) Active confirmed Problem Hematuria (98397584) Hematuria (R31.9) Active confirmed Problem Disorder of kidney and/or ureter (435675452) Left kidney mass (N28.89) Active confirmed Problem Malignant tumor of kidney (497793130) Renal cell carcinoma of left kidney (C64.2) Active confirmed Problem Type II diabetes mellitus without complication (580625447) Diabetes (E11.9) Active confirmed Vital Signs Heart Rate 48 /min 06/04/2025 Blood pressure diastolic 82 mm Hg 06/04/2025 Height 71 in 06/04/2025 Blood pressure systolic 152 mm Hg 06/04/2025 Weight 269.8 lbs 05/23/2025 269.8 BMI 37.63 kg/m2 05/23/2025 269.8 Procedures Procedure Date Ordered Date Performed Result Body Sit e Holter Monitor - 3 days up to 14 days 05/05/2025 N/A Encounters Encounter Location Date Provider Diagnosis [address] [address] 09/20/2024 Jessica Murphy Blood in urine R31.9 ; Wellness examination Z00.00 ; Depression F32.A ; HTN (hypertension) I10 ; Diabetes E11.9 and Gout M10.[address] [address] 05/23/2025 Jessica Murphy Wellness examination Z00.00 ; Bradycardia R00.1 and HTN (hypertension) I10 [address] [place] [address] 09/23/2024 Jessica Murphy [facility] [address] [place] [facility] [place] [place] [address] 09/23/2024 Jessica Murphy [facility] [address] [place] [facility] [place] [place] [address] 09/23/2024 Jessica Murphy [facility] [address] [place] [facility] [place] [place] [address] 10/07/2024 Jessica Murphy UTI (urinary tract infection) N39.0 [facility] [address] [place] [facility] [place] [place] [address] 10/10/2024 Jessica Murphy [facility] [address] [place] [facility] [place] [place] [address] 10/10/2024 Jessica Murphy Hematuria R31.9 [facility] [address] [place] [place] [place] [address] 11/29/2024 Jessica Murphy [facility] [address] [place] [facility] [place] [place] [address] 03/03/2025 Jessica Murphy HTN (hypertension) I10 [facility] [address] [place] [place] [place] [address] 03/04/2025 Jessica Murphy [facility] [address] [place] [place] [place] [address] 05/05/2025 Jessica Murphy Bradycardia R00.1 [facility] [address] [place] [place] [place] [address] 05/27/2025 Jessica Murphy [facility] [address] [place] [facility] [place] [place] [address] 05/28/2025 Jessica Murphy Diabetes E11.9 [facility] [address] [place] [place] [place] [address] 05/30/2025 Jessica Murphy [facility] [address] [place] [place] [place] [address] 06/03/2025 Jessica Murphy [facility] [address] [place] [place] [place] [address] 06/04/2025 Jessica Murphy [facility] [address] [place] [address] 06/04/2025 Robert Martinez [facility] [address] [place] [address] 03/04/2025 Jessica Murphy Assessments Encounter Date Diagnosis (ICD Code) Assessment Notes Treatment Notes Treatment Clinical Notes Section Notes 09/20/2024 Blood in urine (ICD-10 - R31.9) us K and B? 09/20/2024 Wellness examination (ICD-10 - Z00.00) ROS done exam done send labs elsewhere? did not do cologuard last year no repeat CMP check KF? 05/23/2025 Wellness examination (ICD-10 - Z00.00) cologuard ordered ROS done exam done 05/23/2025 Bradycardia (ICD-10 - R00.1) refer to cardiology cut metoprolol in half 10/07/2024 UTI (urinary tract infection) (ICD-10 - N39.0) 10/10/2024 Hematuria (ICD-10 - R31.9) 03/03/2025 HTN (hypertension) (ICD-10 - I10) 05/05/2025 Bradycardia (ICD-10 - R00.1) 05/28/2025 Diabetes (ICD-10 - E11.9) 05/23/2025 HTN (hypertension) (ICD-10 - I10) monitor BP and report one week add norvasc as reducing met dose 09/20/2024 Depression (ICD-10 - F32.A) restart fu one month 09/20/2024 HTN (hypertension) (ICD-10 - I10) 09/20/2024 Diabetes (ICD-10 - E11.9) 09/20/2024 Gout (ICD-10 - M10.9) Plan Of Treatment Pending Test Test Name Order Date CMP (COMPLETE METABOLIC PANEL) 3 CMP (COMPLETE METABOLIC PANEL) 4 UA (URINALYSIS, COMPLETE) 09/20/2024 UA (URINALYSIS, COMPLETE) 10/07/2024 HEMOGLOBIN A1C (GLYCO) 09/27/2023 HEMOGLOBIN A1C (GLYCO) 05/23/2025 HEMOGLOBIN A1C (GLYCO) 09/20/2024 INSULIN, TOTAL 09/20/2024 INSULIN, TOTAL 09/27/2023 INSULIN, TOTAL 05/23/2025 LIPID PANEL (CHOL/TRIG/HDL/LDL) 05/23/20 25 LIPID PANEL (CHOL/TRIG/HDL/LDL) 09/27/20 23 LIPID PANEL (CHOL/TRIG/HDL/LDL) 09/20/20 24 CBC WITH DIFF 09/20/2024 CBC WITH DIFF 09/27/2023 PSA, PROSTATE-SPECIFIC ANTIGEN 3 URIC ACID 09/27/2023 URIC ACID 05/23/2025 URIC ACID 09/20/2024 Urine Culture 09/20/2024 Urine Culture 10/07/2024 UA (Urinalysis, Dipstix only - w/o micro ) 09/20/2024 PSA, TOTAL 09/20/2024 STOOL OCCULT BLOOD 09/20/2024 GLYCOHEMOGLOBIN A1C 05/28/2025 GLYCOHEMOGLOBIN A1C 01/29/2024 URINE MICROSCOPIC ONLY 10/07/2024 THYROID PANEL (T4/TSH/FREE T3) 5 THYROID PANEL (T4/TSH/FREE T3) 4 Holter Monitor - 3 days up to 14 days PSA, SCREENING 05/23/2025 CMP (COMP MET GRIFFITHS) w/eGFR CKD-EPI 2024 CBC WITH DIFF 05/23/2025 Insurance Providers Payer Name Payer Address Payer Phone Subscriber Number Group Number Insured Name Patient Relationship to Insured Coverage Start Date Coverage End Date [employer] [address] [address] [place] [phone] [id number] Harman Le Self - patient is the insured Medical (General) History Surgical History Surgery Date(Month/Year) Cyst Removal Teeth Extraction Left Robotic radical nephrectomy and lym ph node dissection 02/27/2025
--- OUTSIDE RECORDS SUMMARY | 2025-06-21 08:00 | XMS_ITS | Clinical Summary ---
Author Organization [facility] tem Address [facility]-[id number] [address] [place] [address] Care Team Providers Care Elderly Caregiver Name Role Phone Unavailable Primary Care Provider [...]
--- OUTSIDE RECORDS SUMMARY | 2025-06-21 08:00 | XMS_ITS | Encounter Summary ---
Author Organization [facility] Address [address] [place], [place] [id number] Care Team Providers Care Window Shade Ring Coverer Name Role Phone Jessica Murphy CNP Primary Care Provider + 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 RN Unavailable [phone] Ernesto Phoenix MD Unavailable [phone] Gerald Young MD Unavailable [phone] Madelin Mc RN Unavailable Unavailable Myrtle Holland Unavailable Unavailable Yesica Calderon RD Unavailable Source Comments In the event this information is protected by the Federal Confidentiality of Alcohol and Drug AbusePatient Records regulations: The Federal rules restrict any use of the information to criminally investigate or prosecute any alcohol or drug abuse patient.[facility] Encounter Details Date Type Department Care Team (Late st Contact Info) Description 04/02/2025 Telephone Hematology/Oncology [address] [place] [address] [place] [address] Ernesto Phoenix MD [address] [place] [address] [place] [address] Social History Tobacco Use Types Packs/Day [...] is lower risk 6 01/03/2025 Data from: https://www.neighborhoodatlas.[facility]/. Last address used for calculation [address] 01/03/2025 Sex and Gender Information Value [...] Description 07/11/2025 9:00 AM EDT Office Visit [facility] [address] [place] [address] [place] [address] LABS 07/11/2025 9:20 AM EDT Visit (SP) Office Hematology/Oncology [address] [place] [address] Ernesto Phoenix MD [address] [place] [address] Pet scan and lab 07/11/2025 9:40 AM EDT [facility] Hematology/Oncology [address] [place] [address] [place] [address] Pet scan and lab 07/30/2025 2:30 PM EDT [facility] Hematology/Oncology [address] [place] [address] Gerald Young MD [address] [place] [address] pt req virtual appointment after scans due to work schedule and treatment dates documented as of this encounter Visit Diagnoses Not on filedocumented in this encounter Care Teams Window Shade Ring Coverer Relationship Specialty Start Date End Date Jessica Murphy LEG ASSEMBLER [address] [place] [address] PCP - General Internal Medicine 02/07/25 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 RN [address] [place] [address] [place] [address] Specialty Custom Stock Maker Hematology/Oncology 03/28/25 Ernesto Phoenix MD [address] [place] [address] [place] [address] Physician Hematology/Oncology 03/28/25 [place] [address] [place] [address] Physician Hematology 04/09/25 Madelin Mc, RN Specialty Custom Stock Maker Hematology/Oncology 04/09/25 Myrtle Holland LSW Ballistics Tester 04/11/[address] [place] [address] Nutrition 04/17/25 documented as of this encounter
--- OUTSIDE RECORDS SUMMARY | 2025-06-21 08:00 | XMS_ITS | Encounter Summary ---
Author Organization [facility] Address [address] [place] [address] Care Team Providers Care Sales Support Rep Name Role Phone Jessica Murphy CNP Primary Care Provider + 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 RN Unavailable [phone] Ernesto Phoenix MD Unavailable [phone] Gerald Young MD Unavailable [phone] Madelin Mc RN Unavailable Unavailable Myrtle Holland Unavailable Unavailable Yesica Calderon RD Unavailable Source Comments In the event this information is protected by the Federal Confidentiality of Alcohol and Drug AbusePatient Records regulations: The Federal rules restrict any use of the information to criminally investigate or prosecute any alcohol or drug abuse patient.[facility] Encounter Details Date Type Department Care Team (Late st Contact Info) Description 02/14/2025 Patient Msg Cancer [facility]ts [address] [place] [address] Provider, Ccf Iron Infusion Social History Tobacco [...] risk 6 01/03/2025 Data from: https://www.neighborhoodatlas.medicine.[facility].edu/. Last address used for calculation [address] 01/03/2025 Sex and Gender Information Value Date Recorded Sex Assigned at Male 03/02/2025 11:28 PM EDT Legal Sex Male 8:56 AM EDT Gender Identity Male 03/02/2025 11:28 PM EDT Sexual Orientation Straight 03/02/2025 11 :28 PM EDT documented as of this encounter Plan of Treatment Upcoming Encounters Date Type Department Care Team (Latest Contact Info) Description 07/11/2025 9:00 AM EDT Office Visit [facility] [address] [place] [address] [place] [address] LABS 07/11/2025 9:20 AM EDT Visit (SP) Office Hematology/Oncology [address] [place] [address] [place] [address] Ernesto Phoenix MD [address] [facility] [place] [address] Pet scan and lab 07/11/2025 9:40 AM EDT [facility] Hematology/Oncology [address] [place] [address] [place] [address] Pet scan and lab 07/30/2025 2:30 PM EDT [facility] Hematology/Oncology [address] [place] [address] Gerald Young MD [address] [place] [address] pt req virtual appointment after scans due to work schedule and treatment dates documented as of this encounter Visit Diagnoses Not on filedocumented in this encounter Care Teams Sales Support Rep Relationship Specialty Start Date End Date Jessica Murphy, PLASTIC BOAT BUFFER [address] [place] [address] PCP - General Internal Medicine 02/07/25 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 RN [address] [place] [address] [place] [address] Specialty Dry Man Hematology/Oncology 03/28/25 Ernesto Phoenix MD [address] [place] [address] Physician Hematology/Oncology 03/28/25 [place] [address] [place] [address] Physician Hematology 04/09/25 Madelin Mc, JUANA Specialty Dry Man Hematology/Oncology 04/09/25 Myrtle Holland LSW Licensing Engineer 04/11/25 Yesica Calderon, DARYL [address] [place] [address] Nutrition 04/17/25 documented as of this encounter
--- OUTSIDE RECORDS SUMMARY | 2025-06-21 08:00 | XMS_ITS | Encounter Summary ---
Author Organization [facility] Address [address] [place], [place] [address] Care Team Providers Care Fire Department Battalion Chief Name Role Phone Jessica Murphy CNP Primary Care Provider + 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 RN Unavailable [phone] Ernesto Phoenix MD Unavailable [phone] Gerald Young MD Unavailable [phone] Madelin Mc RN Unavailable Unavailable Myrtle Holland Unavailable Unavailable Yesica Calderon RD Unavailable Source Comments In the event this information is protected by the Federal Confidentiality of Alcohol and Drug AbusePatient Records regulations: The Federal rules restrict any use of the information to criminally investigate or prosecute any alcohol or drug abuse patient.[facility] Reason for Visit * Reason Comments Refill Request Encounter Details Date Type Department Care Team (Late st Contact Info) Description 05/11/2025 Refill Hematology/Oncology [facility] [place] [address] Ernesto Phoenix MD [facility] [place] [address] Refill Request Social History Tobacco Use [...] risk 6 01/03/2025 Data from: https://www.neighborhoodatlas.[facility]/. Last address used for calculation [address] 01/03/2025 Sex and Gender Information Value [...] Description 07/11/2025 9:00 AM EDT Office Visit [facility] [address] [facility] [place] [address] LABS 07/11/2025 9:20 AM EDT Visit (SP) Office Hematology/Oncology [address] [place] [address] [place] [address] Ernesto Phoenix MD [address] [place] [address] [place] [address] Pet scan and lab 07/11/2025 9:[address] [facility] Hematology/Oncology [address] [place] [address] [place] [address] Pet scan and lab 07/30/2025 2:30 PM EDT [facility] Hematology/Oncology [address] [place] [id number] Gerald Young MD [address] [place] [address] pt req virtual appointment after scans due to work schedule and treatment dates documented as of this encounter Visit Diagnoses Not on filedocumented in this encounter Care Teams Fire Department Battalion Chief Relationship Specialty Start Date End Date Jessica Murphy CNP [address] [place] [address] PCP - General Internal Medicine 02/07/25 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 RN [address] [place] [address] Specialty Form Coverer Hematology/Oncology 03/28/25 Ernesto Phoenix MD [address] [place] [address] [place] [address] Physician Hematology/Oncology 03/28/25 [place] [address] [place] [id number] Physician Hematology 04/09/25 Madelin Mc, RN Specialty Form Coverer Hematology/Oncology 04/09/25 Myrtle Holland LSW Medical Imaging Specialist 04/11/25 Yesica Calderon, RD [address] [place] [address] Nutrition 04/17/25 documented as of this encounter
--- OUTSIDE RECORDS SUMMARY | 2025-06-21 08:00 | XMS_ITS | Encounter Summary ---
Author Organization [facility] Address [address] [place], [place] [id number] Care Team Providers Care Fund Accountant Name Role Phone Jessica Murphy CNP Primary Care Provider + 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 RN Unavailable [phone] Ernesto Phoenix MD Unavailable [phone] Gerald Young MD Unavailable [phone] Madelin Mc RN Unavailable Unavailable Myrtle Holland Unavailable Unavailable Yesica Calderon RD Unavailable Source Comments In the event this information is protected by the Federal Confidentiality of Alcohol and Drug AbusePatient Records regulations: The Federal rules restrict any use of the information to criminally investigate or prosecute any alcohol or drug abuse patient.[facility] Encounter Details Date Type Department Care Team (Late st Contact Info) Description 04/09/2025 Telephone Hematology/Oncology [address] [place] [address] [place] [address] Ernesto Phoenix MD [address] [place] [address] [place] [address] Social History Tobacco Use Types Packs/Day [...] risk 6 01/03/2025 Data from: https://www.neighborhoodatlas.[facility]/. Last address used for calculation [address] 01/03/2025 Sex and Gender Information Value [...] Description 07/11/2025 9:00 AM EDT Office Visit [facility] [address] [facility] [place] [address] LABS 07/11/2025 9:20 AM EDT Visit (SP) Office Hematology/Oncology [address] [place] [address] [place] [address] Ernesto Phoenix MD [address] [facility] [place] [address] Pet scan and lab 07/11/2025 9:40 AM EDT [facility] Hematology/Oncology [address] [place] [address] [place] [address] Pet scan and lab 07/30/2025 2:30 PM EDT [facility] Hematology/Oncology [address] [place] [address] Gerald Young MD [address] [place] [address] pt req virtual appointment after scans due to work schedule and treatment dates documented as of this encounter Visit Diagnoses Not on filedocumented in this encounter Care Teams Fund Accountant Relationship Specialty Start Date End Date Jessica Murphy, WEALTH MANAGEMENT CONSULTANT [address] [place] [address] PCP - General Internal Medicine 02/07/25 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, RN [address] [place] [address] [place] [address] Specialty Systems Testing Laboratory Technician Hematology/Oncology 03/28/25 Ernesto Phoenix MD [address] [place] [address] [place] [address] Physician Hematology/Oncology 03/28/25 [place] [address] [place] [address] Physician Hematology 04/09/25 Madelin Mc RN Specialty Systems Testing Laboratory Technician Hematology/Oncology 04/09/25 Myrtle Holland LSW Allergist/Pediatric Pulmonologist 04/11/[address] [place] [address] Nutrition 04/17/25 documented as of this encounter
--- OUTSIDE RECORDS SUMMARY | 2025-06-21 08:00 | XMS_ITS | Clinical Summary ---
Author Organization [facility] Address [address] [place] [address] Care Team Providers Care Drop Forge Operator Name Role Phone Jessica Murphy DEEP Primary Care Provider [phone] Allergies Active Allergy Reactions Criticality Noted Date Comments Tamsulosin Other 02/27/2025 dizziness and back pain Medications lisinopril 5 mg tablet Take 5 mg by mouth in the morning. 06/10/20 25 Active glipiZIDE 2.5 mg tablet Take 2.5 mg by mouth in the morning. Active metoprolol tartrate (Lopressor) 50 mg tablet Take 50 mg by mouth two times daily. 05/23/20 25 Active lenvatinib 10 mg daily dose (Lenvima) capsule chemo therapy pack Take 10 mg by mouth in the morning Active ondansetron (Zofran) 8 mg tablet Take 8 mg by mouth every 8 (eight) hours if needed. 03/28/20 25 Active allopurinol (Zyloprim) 300 mg tablet Take 300 mg by mouth twice a day. 09/07/20 22 Active dutasteride (Avodart) 0.5 mg capsule Take 0.5 mg by mouth in the morning. 12/21/19 25 Active FLUoxetine (PROzac) 10 mg capsule Take 10 mg by mouth in the morning. 10/24/19 25 Active furosemide (Lasix) 40 mg tablet Take 1 tablet by mouth Twice daily at 6am and 6pm. 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) Take 1 tablet (30 mg) by mouth before breakfast. Do not crush, chew, or split. 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 Renal cell carcinoma of left kidney 03/18/2025 Kidney mass 02/28/2025 Intestinal malabsorption 02/10/2025 Iron deficiency anemia, unspecified 02/10/2025 BPH with obstruction/lower urinary tract symptom s 02/07/2025 Class 2 obesity due to exces s calories without serious comorbidity in adult 02/07/2025 Depression 02/07/2025 ROSA M (obstructive sleep apnea) 02/07/2025 Diverticulum of bladder 11/11/2024 Encounters Date Type Department Care Team Description 06/18/2025 2:20 PM EDT Office Visit [address] [address] Chaka Griffin MD 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) 06/17/2025 Orders Only [address] [phone] Provider, MD Anna from Last 3 Months Family History Medical History Relation Name Comments Stroke Father Relation Name Status Comments Father Mother Alive Social History Tobacco Use Types Packs/Day Years [...] Heterosexual or Straight 05/2025 4:18 PM EDT Last Filed Vital Signs Vital [...] Mass Index 36.08 06/18/2025 2:29 PM EDT Plan of Treatment Upcoming Encounters Date Type Department Care Team (Late st Contact Info) Description 07/16/2025 9:00 AM EDT Office Visit [facility] [address] [place] [phone] Chaka Griffin MD [address] [place] [phone] Health Maintenance Due Date Last Done Comments CT Colonography 1959 Colonoscopy 1959 Colorectal Cancer Screening 1959 Diabetes: Hemoglobin A1C 1959 FIT-DNA 1959 FIT 1959 FOBT 1959 Sigmoidoscopy 1959 Diabetes: Retinopathy Screening 1969 Depression Screening 1971 Diabetes: Urine Protein Screening 1978 Pneumococcal Vaccine: 50+ Years (1 of 2 - PCV) 1978 Adult Tetanus 1981 Zoster Vaccines (1 of 2) 2009 Fall Risk Screening 01/06/2024 COVID-19 Vaccine ( season) 2025 07/02/2024, 06/29/2024, 07/08/2023, Additional history exists Influenza Vaccine (#1) 2025 HIB Vaccines Aged Out No longer eligi ble based on patient's age to complete this topic HPV Vaccines Aged Out No longer eligi ble based on patient's age to complete this topic IPV Vaccines Aged Out No longer eligi ble based on patient's age to complete this topic Meningococcal B Vaccine Aged Out No l onger eligible based on patient's age to complete this topic Meningococcal Vaccine Aged Out No palomo nancy eligible based on patient's age to complete this topic Rotavirus Vaccines Aged Out No longer eligible based on patient's age to complete this topic Procedures Procedure Name Priority Date/Time Associated Diagnosis Comments HOLTER MONITOR CUSTODIAL Routine 025 2:00 PM EDT HOLTER MONITOR CUSTODIAL Routine 025 2:00 PM EDT COMPLETE TRANSTHORACIC ECHO (TTE) W/WO IMAGING AGENT, STRAIN, 3D, BUBBLE STUDY Routine 05/05/2025 1:59 PM EDT from Last 3 Months Results * Holter monitor - fdc (05/12/2025 2:00 PM EDT) Anatomical Region Laterality Modality Other [facility] Provider CV CARDIAC SERVICES PROCE DURES Final Result * Holter monitor - press tender long goods (05/12/2025 2:00 PM EDT) Anatomical Region Laterality Modality Other [facility] Provider MD CV CARDIAC SERVICES PROCE DURES Final Result * Complete Echo (TTE) w/wo Imaging Agent, Strain, 3D, Bubble Study (05/05/2025 1:59 PM EDT) Anatomical Region Laterality Modality Ultrasound [facility] Provider CV ECHO PROCEDURES Final Result from Last 3 Months Insurance [employer] Care Teams Drop Forge Operator Relationship Specialty Start Date End Date Jessica Murphy CNP [facility] [place] [id number] PCP - General Family Medicine 06/17/25
--- OUTSIDE RECORDS SUMMARY | 2025-06-21 08:00 | XMS_ITS | Encounter Summary ---
Author Organization [facility] Address [facility] [place] [address] Care Team Providers Care Regional Hr Manager Name Role Phone Jessica Murphy CNP Primary Care Provider + 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 RN Unavailable [phone] Ernesto Phoenix MD Unavailable [phone] Gerald Young MD Unavailable [phone] Madelin Mc RN Unavailable Unavailable Myrtle Holland Unavailable Unavailable Yesica Calderon RD Unavailable Source Comments In the event this information is protected by the Federal Confidentiality of Alcohol and Drug AbusePatient Records regulations: The Federal rules restrict any use of the information to criminally investigate or prosecute any alcohol or drug abuse patient.[facility] Encounter Details Date Type Department Care Team (Late st Contact Info) Description 01/06/2025 Patient Msg Pre Anesthesia [address] [place] [address] Provider, [facility] Appointment Social History Tobacco Use Types Packs/Day Years Used Date Smoking Tobacco: Never Assessed Area Deprivation Index Answer Date Roland rded National Score (1-100), lower number is lower ri sk 78 01/03/2025 State Score (1-10), lower number is lower risk 6 01/03/2025 Data from: https://www.neighborhoodatlas.medicine.[facility].edu/. Last address used for calculation [address] 01/03/2025 Sex and Gender Information Value [...] Visit [facility] [address] [place] [address] [place] [address] LABS 07/11/2025 9:20 AM EDT Visit (SP) Office Hematology/Oncology [address] [place] [address] [place] [address] Ernesto Phoenix MD [address] [place] [address] [place] [address] Pet scan and lab 07/11/2025 9:40 AM EDT [facility] Hematology/Oncology [address] [place] [address] [place] [address] Pet scan and lab 07/30/2025 2:30 PM EDT [facility] Hematology/Oncology [address] [place] [address] Gerald Young MD [address] [place] [address] pt req virtual appointment after scans due to work schedule and treatment dates documented as of this encounter Visit Diagnoses Not on filedocumented in this encounter Care Teams Regional Hr Manager Relationship Specialty Start Date End Date Jessica Murphy CNP [address] [place] [address] PCP - General Internal Medicine 02/07/25 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, RN [address] [place] [place] [address] Specialty Upholsterer Helper Hematology/Oncology 03/28/25 Ernesto Phoenix MD [address] [place] [address] Physician Hematology/Oncology 03/28/25 [place] [address] [place] [address] Physician Hematology 04/09/25 Madelin Mc RN Specialty Upholsterer Helper Hematology/Oncology 04/09/25 Myrtle Holland LSW Installation Technician 04/11/[address] [place] [address] Nutrition 04/17/25 documented as of this encounter
--- OUTSIDE RECORDS SUMMARY | 2025-06-21 08:00 | XMS_ITS | Encounter Summary ---
Author Organization [facility] Address [address] [place], [place] [id number] Care Team Providers Care Cloth Edge Singer Name Role Phone Jessica uMrphy CNP Primary Care Provider + 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 RN Unavailable [phone] Ernesto Phoenix MD Unavailable [phone] Gerald Young MD Unavailable [phone] Madelin Mc RN Unavailable Unavailable Myrtle Holland Unavailable Unavailable Yesica Calderon RD Unavailable Source Comments In the event this information is protected by the Federal Confidentiality of Alcohol and Drug AbusePatient Records regulations: The Federal rules restrict any use of the information to criminally investigate or prosecute any alcohol or drug abuse patient.[facility] Reason for Visit * Reason Comments Refill Request Encounter Details Date Type Department Care Team (Late st Contact Info) Description 05/12/2025 Refill Hematology/Oncology [facility] [place] [address] Ernesto Phoenix MD [facility] [place] [address] Refill Request Social History Tobacco Use [...] is lower risk 6 01/03/2025 Data from: https://www.neighborhoodatlas.[facility]/. Last address used for calculation [address] 01/03/2025 Sex and Gender Information Value [...] Visit [facility] [address] [facility] [address] [place] [address] LABS 07/11/2025 9:20 AM EDT Visit (SP) Office Hematology/Oncology [address] [place] [address] [place] [address] Ernesto Phoenix MD [address] [place] [address] [place] [address] Pet scan and lab 07/11/2025 9:40 AM EDT [facility] Hematology/Oncology [address] [place] [address] [place] [address] Pet scan and lab 07/30/2025 2:30 PM EDT [facility] Hematology/Oncology [address] [id number] Gerald Young MD [address] [place] [address] pt req virtual appointment after scans due to work schedule and treatment dates documented as of this encounter Visit Diagnoses Not on filedocumented in this encounter Care Teams Cloth Edge Singer Relationship Specialty Start Date End Date Jessica Murphy CNP [address] [place] [address] PCP - General Internal Medicine 02/07/25 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 RN [address] [place] [address] Specialty Compensation Business Partner Hematology/Oncology 03/28/25 Ernesto Phoenix MD [address] [place] [address] [place] [address] Physician Hematology/Oncology 03/28/25 [place] [address] [place] [id number] Physician Hematology 04/09/25 Madelin Mc, RN Specialty Compensation Business Partner Hematology/Oncology 04/09/25 Myrtle Holland LSW Power Superintendent 04/11/25 Yesica Calderon, RD [address] [place] [address] Nutrition 04/17/25 documented as of this encounter
--- OUTSIDE RECORDS SUMMARY | 2025-06-21 08:00 | XMS_ITS | Encounter Summary ---
Author Organization [facility] Address [address] [place] [address] Care Team Providers Care News Anchor Name Role Phone Jessica Murphy CNP Primary Care Provider + 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 RN Unavailable [phone] Ernesto Phoenix MD Unavailable [phone] Gerald Young MD Unavailable [phone] Madelin Mc RN Unavailable Unavailable Myrtle Holland Unavailable Unavailable Yesica Calderon RD Unavailable Source Comments In the event this information is protected by the Federal Confidentiality of Alcohol and Drug AbusePatient Records regulations: The Federal rules restrict any use of the information to criminally investigate or prosecute any alcohol or drug abuse patient.[facility] Reason for Visit * Reason Comments Nm Pet Request Encounter Details Date Type Department Care Team (Late st Contact Info) Description 04/09/2025 Telephone Hematology/Oncology [address] [place] [address] Madelin Mc, RN Nm Pet [...] lower risk 6 01/03/2025 Data from: https://www.neighborhoodatlas.medicine.[facility]/. Last address used for calculation [address] 01/03/2025 Sex and Gender Information Value [...] ONLY. Is this request for a [facility] [place] PET scan appointment? Yes: Control Systems Engineer: Alexandro Yusuf RN Who do we call [...] Description 07/11/2025 9:00 AM EDT Office Visit [facility] [address] [place] [address] [place] [address] LABS 07/11/2025 9:20 AM EDT Visit (SP) Office Hematology/Oncology [facility] [place] [address] Ernesto Phoenix MD [address] [facility] [address] Pet scan and lab 07/11/2025 9:40 AM EDT [facility] Hematology/Oncology [address] [facility] [place] [address] Pet scan and lab 07/30/2025 2:30 PM EDT [facility] Hematology/Oncology [address] [place] [address] Gerald Young MD [address] [place] [address] pt req virtual appointment after scans due to work schedule and treatment dates documented as of this encounter Visit Diagnoses Not on filedocumented in this encounter Care Teams News Anchor Relationship Specialty Start Date End Date Jessica Murphy CNP [address] [place] [address] PCP - General Internal Medicine 02/07/25 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 RN [address] [facility] [place] [address] Specialty Building Mover Hematology/Oncology 03/28/25 Ernesto Phoenix MD [address] [facility] [place] [address] Physician Hematology/Oncology 03/28/25 [place] [address] [place] [address] Physician Hematology 04/09/25 Madelin Mc RN Specialty Building Mover Hematology/Oncology 04/09/25 Myrtle Holland LSW Shingler 04/11/[address] [place] [address] Nutrition 04/17/25 documented as of this encounter
--- OUTSIDE RECORDS SUMMARY | 2025-06-21 08:03 | XMS_ITS | CCD ---
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 Name Role Phone JESSICA DAVALOS Attending Unavailable JESSICA DAVALOS Consulting Unavailable JESSICA DAVALOS Primary Care Unavailable JESSICA DAVALOS Admitting Unavailable Susannah MANAGER LATIN-C, Jessica Orozco Attending Provider NIRMALA MENJIVAR Attending Unavailable JESSICA DAVALOS Referring Unavailable NIRMALA MENJIVAR Attending Unavailable NIRMALA MENJIVAR Admitting Unavailable JESSICA DAVALOS Primary Care Physician Nikolai Acosta MD Attending Provider [phone] Unavailable Primary Care Provider UnavailJessica Curry CNP Primary Care Provider [phone] Nikolai ACOSTA Attending Unavailable Nikolai ACOSTA Attending Unavailable Nikolai ACOSTA Attending Unavailable Nikolai ACOSTA Attending Unavailable Panda ARIAS, Herlinda Hernandez Unavailable Ernesto Phoenix MD Unavailable BING ARVIZU Attending Unavailable SELF Referring Unavailable BING ARVIZU Referring Unavailable BING ARVIZU Admitting Unavailable BING ARVIZU Attending Unavailable JESSICA DAVALOS Primary Care Unavailable Jeannine Young MD Unavailable [phone] Alexandro ARIAS, Madelin Rich Unavailable Unavailable Myrtle Oliva Unavailable Unavailable Kvng BRITO, Yesica Unavailable Susannah MANAGER LATIN-C, Jessica Orozco Primary Care Provider [phone] Felton Urbina MD Attending Provider [phone] Ernesto Phoenix MD Unavailable Ernesto Phoenix MD Attending Provider Nikolai Acosta Unavailable Nikolai Acosta Attending Unavailable Susannah, Jessica Orozco Attending Unavailable Susannah, Jessica Pam Admitting Unavailable Vennepureddy, Ernesto Attending Unavailable Susannah, Jessica Pam Primary Care Unavailable Vennepureddy, Ernesto Admitting Unavailable SUSANNAH, JESSICA S Primary Care Unavailable SUSANNAH, JESSICA S Primary Care Unavailable SUSANNAH, JESSICA S Primary Care Unavailable VENNEPUREDDY, ERNESTO Attending Unavailable SUSANNAH, JESSICA S Primary Care Unavailable SUSANNAH, JESSICA S Primary Care Unavailable VENNEPUREDDY, ERNESTO Referring Unavailable VENNEPUREDDY, ERNESTO Attending Unavailable RILEYUASSALY, BING Referring Unavailable ABOUASSALY, BING Referring Unavailable SUSANNAH, JESSICA S Primary Care Unavailable SUSANNAH, JESSICA S Primary Care Unavailable VENNEPUREDDY, ERNESTO Referring Unavailable SUSANNAH, JESSICA S Primary Care Unavailable VENNEPUREDDY, ERNESTO Referring Unavailable TAMANNA ZHU Referring Unavailable SUSANNAH, JESSICA S Primary Care Unavailable SUSANNAH, JESSICA S Primary Care Unavailable RILEYUASSALY, BING Referring Unavailable VENNEPUREDDY, ERNESTO Attending Unavailable SUSANNAH, JESSICA S Primary Care Unavailable VENNEPUREDDY, ERNESTO Referring Unavailable SUSANNAH, JESSICA S Primary Care Unavailable VENNEPUREDDY, ERNESTO Referring Unavailable RILEYUASSALY, BING Referring Unavailable BG NAVAS Attending Unavailable Joseph'BG PEREZ Admitting Unavailable SUSANNAH, JESSICA S Primary Care Unavailable VENNEPUREDDY, ERNESTO Referring Unavailable SUSANNAH, JESSICA S Primary Care Unavailable VENNEPUREDDY, ERNESTO Referring Unavailable SUSANNAH, JESSICA S Primary Care Unavailable VENNEPUREDDY, ERNESTO Referring Unavailable VENNEPUREDDY, ERNESTO Attending Unavailable SUSANNAH, JESSICA S Primary Care Unavailable VENNEPUREDDY, ERNESTO Referring Unavailable SUSANNAH, JESSICA S Primary Care Unavailable YESICA CALDERON Attending Unavailable SUSANNAH, JESSICA S Primary Care Unavailable JEANNINE YOUNG Referring Unavailable VENNEPUREDDY, ERNESTO Referring Unavailable SUSANNAH, JESSICA S Primary Care Unavailable VENNEPUREDDY, ERNESTO Attending Unavailable VENNEPUREDDY, ERNESTO Referring Unavailable SUSANNAH, JESSICA S Primary Care Unavailable JEANNINE YOUNG Attending Unavailable ROB ROMERO Referring Unavailable SUSANNAH, JESSICA S Primary Care Unavailable SUSANNAH, JESSICA S Primary Care Unavailable TAMANNA ZHU Referring Unavailable SUSANNAH, JESSICA S Primary Care Unavailable ROB ROMERO Referring Unavailable SUSANNAH, JESSICA [...] Unavailable VENNEPUREDDY, ERNESTO Referring Unavailable VENNEPUREDDY, ERNESTO Referring Unavailable SUSANNAH, JESSICA S Primary Care Unavailable VENNEPUREDDY, ERNESTO Attending Unavailable MÓNICA BOJORQUEZ Attending Unavailable Allergies Allergy Classification Reported Allergen(s) Allergy Type Date of Onset Reaction(s) Facility (2 sources) No Known Medication Allergies; Translations: [No Known Medication Allergies] Propensity to adverse reactions (disorder) [facility] [place] Repository (20 sources) tamsulosin; Translations: [TAMSULOSIN] Drug Allergy 5 Other: See Comments [facility] (1 source) tamsulosin Drug Allergy 5 [facility] Repository Medications Current Medications Medication Drug Class(es) Dates Sig (Normalized) Sig (Original) acetaminophen 325 mg oral tablet (20 sources) Start: 04-22-2025 take 1 tablet by mouth every six hours as needed Start: 03-14-2025 acetaminophen Refills(s) 0 Start Date: 03/14/25 Status: Ordered Repeat number: 1 Start: 02-28-2025 take 2 tablets by mo [facility] every six hours as needed acetaminophen (TYLENOL) [...] take 1 capsule by mouth once daily Start: 03-14-2025 take 1 capsule by mo ut twice daily docusate sodium (COLACE ORAL) Take [...] take 1 capsule by mouth once daily FLUoxetine 10 mg oral capsule (20 sources) Serotonin Reuptake Inhibitor Start: 10-24-2024 take 1 capsule by mouth once daily glipiZIDE 2.5 mg oral tablet (4 sources) Sulfonylurea take 1 tablet by mouth once daily 30 minutes before breakfast glipiZIDE 2.5 mg tablet TAKE 1 TABLET BY MOUTH DAILY 30 MINUTES BEFORE BREAKFAST Active hydroCHLOROthiazide 12.5 mg / lisinopril 20 mg oral tablet (9 sources) Thiazide Diuretic, Angiotensin Converting Enzyme Inhibitor Start: 10-24-2024 hydrochlorothi azide-lisinopr il 12.5 mg-20 mg Tab 1 tab(s), Refill(s) 0 Start Date: 10/24/24 Status: Ordered Repeat number: 1 take 1 tablet by melo once daily lisinopril-hydroCHLOROthiazide (ZESTORET IC) 20-12.5 mg per tablet Take 1 tablet by mouth once daily. Active Inulin (20 sources) take 1 dose by mouth twice daily inulin (FIBER GUMMIES PO) Take 1 each by mouth two times a day. Active lenvatinib 10 mg oral capsule (20 sources) Kinase Inhibitor Start: 04-22-2025 take 1 capsule by mouth once daily Start: 04-09-2025 take 2 capsules by m [...] once daily. 60 capsule 2 04/09/2025 Active lisinopril 5 mg oral tablet (4 sources) Angiotensin Converting Enzyme Inhibitor Start: 06-09-2025 End: 07-09-2025 take 1 tablet by mouth once daily lisinopril (ZESTRIL) 5 mg tablet TAKE 1 TABLET BY MOUTH DAILY 90 tablet 06/10/2025 Active metFORMIN hydrochloride 500 mg oral tablet (20 sources) Biguanide Start: 04-22-2025 take 1 tablet by mouth twice daily Start: 10-24-2024 metformin 1000 mg Tab 1,000 mg = 1 tab(s), Refills(s) 0 Start Date: 10/24/24 Status: Ordered Repeat number: 1 End: 05-30-2025 metFORMIN (GLUCOPHAGE) 1,000 mg tablet Take 500 mg by mouth two times a day. 05/30/2025 Discontinued (Discontinued by another Health Care Provider) ondansetron 8 mg oral tablet (20 sources) [...] Active 4 ml pembrolizumab 25 mg/ml injection (2 sources) Programmed Receptor-1 Blocking Antibody Start: 04-22-2025 prochlorperazine 10 mg oral tablet (20 sources) Phenothiazine Start: 03-28-2025 take 1 tablet by mouth every six hours as needed prochlorperazine (COMPAZINE) 10 mg tablet Take 1 tablet by mouth every 6 hours as needed. 100 tablet 2 04/18/2025 9:20 AM EDT 03/28/2025 Active sennosides (SENNA LAX PO) (19 sources) sennosides (IRMA A LAX PO) Take by mouth. Active sodium polystyrene sulfonate 250 mg/ml oral suspension (11 sources) Start: 05-12-2025 SPS, WITH SORBITOL, 15-20 gram/60 mL susp suspension TAKE 60ML BY MOUTH FOR 1 DOSE 60 mL 05/12/2025 Active sulfamethoxazole 800 mg / trimethoprim 160 mg oral tablet (2 sources) Dihydrofolate Reductase Inhibitor Antibacterial, Sulfonamide Antimicrobial Start: 10-24-2024 End: 11-11-2024 Bactrim D.S. 800 mg-160 mg Tab See Instructions, 24 tab(s), Refill(s) 0, 1 tab po BID x 7d, then 1 tab po QD x 10d, [id number], 182, cm, 10/24/24 9:12:00 EST, Height/Length Dosing, 130, kg, 10/24/24 9:12:00 EST, Weight Dosing Start Date: 10/24/24 Stop Date: 11/11/24 Status: Ordered Completed/Discontinued Medications Medication Drug Class(es) Dates Sig (Normalized) Sig (Original) amLODIPine 2.5 mg oral tablet (6 sources) Dihydropyridine Calcium Channel Robles Start: 05-28-2025 End: 06-17-2025 take 1 tablet by mouth once daily amLODIPine (NORVASC) 2.5 mg tablet Take 1 tablet by mouth once daily. 05/28/2025 06/17/2025 Discontinued bisacodyl 5 mg delayed release oral tablet [...] 1 04/09/2025 04/09/2025 Discontinued (Changing Therapy/Dosage Form) furosemide 40 mg oral tablet (5 sources) Loop Diuretic Start: 05-10-2025 End: 05-30-2025 take 1 tablet by mouth every twelve hours furosemide (LASIX) 40 mg tablet Take 1 tablet by mouth every 12 hours. 05/10/2025 05/30/2025 Discontinued Start: 05-09-2025 take 1 tablet by mouth twice d aily 5 ml iron sucrose 20 mg/ml injection (1 source) Parenteral Iron Replacement Start: 02-17-2025 End: 02-17-2025 200 mg, INTRAVENOUS, ONCE, 1 dose, On Mon02/17/25 at 0930, May administer up to 200 mg via IV push over 5-10 minutes. Please conduct a 30 minute post-dose observation. metoprolol tartrate 100 mg oral tablet (20 sources) beta-Adrenergic Robles Start: 05-30-2025 End: 06-09-2025 take 0.5 tablet by mouth twice daily metoprolol tartrate, short acting, (LOPRESSOR) 100 mg tablet Take 0.5 tablets by mouth two times a day. 180 tablet 05/30/2025 06/09/2025 Discontinued (Changing Therapy/Dosage Form) Start: 04-22-2025 End: 05-30-2025 take 1 tablet by mouth twice daily Start: 10-24-2024 take 1 tablet by mouth once da mitul metoprolol succinate 100 mg ER Tab 100 mg = 1 tab(s), Oral, Daily, Refills(s) 0 Start Date: 10/24/24 Status: Ordered Repeat number: 1 take 1 tablet by melo th twice daily at mealtime metoprolol tartrate, short acting, (LOPRESSOR) 50 mg tablet Take 50 mg by mouth two times a day. TAKE WITH FOOD. Active NaCl 0.9% 500 mL (1 source) Start: 04-18-2025 End: 04-18-2025 INTRAVENOUS, at 999 mL/hr, Administer over 0.5 Hours, ONCE, 1 dose, On Mon04/18/25 at 1100 pembrolizumab 200 mg in NaCl 0.9% 66 mL (KEYTRUDA) (2 sources) Start: 05-30-2025 End: 05-30-2025 200 mg, INTRAVENOUS, Adminis ter over 30 Minutes, ONCE, 1 dose, On Mon05/30/25 at 1000, Approx Total Volume: 66 mL EXP: 0700 06/06/25 Refrigerate Administer with 0.2 micron filter. Start: 04-18-2025 End: 04-18-2025 200 mg, INTRAVENOUS, Adminis ter over 30 Minutes, ONCE, 1 dose, On Mon04/18/25 at 1130, Approx Total Volume: 66 mL EXP: 04/22/2025 1115 Refrigerated Administer with 0.2 micron filter. spironolactone 25 mg oral tablet (20 sources) Aldosterone Antagonist Start: 10-24-2024 End: 05-16-2025 take 1 tablet by mouth twice daily Spironolactone 25 mg tablet Discontinued 25 MG PO Twice daily April 22, 2025 12:00am May 09, 2025 11:50am tamsulosin hydrochloride 0.4 mg oral capsule (14 sources) alpha-Adrenergic Robles Start: 11-11-2024 End: 03-18-2025 take 1 capsule by mouth every twelve hours tamsulosin (FLOMAX) 0.4 mg Take 1 capsule by mouth every 12 hours. 11/11/2024 03/18/2025 Discontinued (Discontinued by Patient) Problems Active Problems Problem Classification Problem Date Documented Da te Episodic/Chronic Administrative/social admission (2 sources) Patient encounter status; Translations: [Counseling, unspecified] Onset: 04-01-2025 04-01-2025 Episodic Cancer of kidney and renal pelvis (20 sources) Malignant tumor of kidney; Translations: [Malignant neoplasm of unspecified kidney, except renal pelvis] Onset: 03-14-2025 Chronic Cardiac dysrhythmias (2 sources) Bradycardia, unspecified; Translations: [Bradycardia, unspecified] Onset: 06-18-2025 Episodic Chronic kidney disease (8 sources) Chronic kidney disease stage 4; Translations: [Chronic kidney disease, stage 4 (severe)] 04-22-2025 Chronic Diabetes mellitus with complications (4 sources) Disorder of kidney due to diabetes mellitus; Translations: [Type 2 diabetes mellitus with diabetic nephropathy] 04-22-2025 Chronic Diabetes mellitus without complication (20 sources) Type 2 diabetes mellitus; Translations: [Type 2 diabetes mellitus without complications] Onset: 02-07-2025 02-07-2025 Chronic Essential hypertension (20 sources) Benign hypertension; Translations: [Hypertensive disorder] Onset: 02-07-2025 10-24-2024 Chronic Genitourinary symptoms and ill-defined conditions (4 sources) Beth hematuria; Translations: [Blood in urine] Onset: 10-23-2024 10-23-2024 Episodic Gout and other crystal arthropathies (1 source) Gout 11-07-2024 Chronic Hyperplasia of prostate (20 sources) Benign prostatic hypertrophy with outflow obstruction; Translations: [Benign prostatic hyperplasia with lower urinary tract symptoms] Onset: 10-24-2024 10-24-2024 Chronic Hypertension with complications and secondary hypertension (6 sources) Hypertensive renal disease; Translations: [Hypertensive chronic kidney disease with stage 1 through stage 4 chronic kidney disease, or unspecified chronic kidney disease] Onset: 06-18-2025 04-22-2025 Chronic Mood disorders (20 sources) Depressive disorder; Translations: [Depression, unspecified depression type] Onset: 02-07-2025 02-07-2025 Chronic Mood disorders (1 source) Mood disorders; Translations: [Depression, unspecified depression type] Onset: 02-07-2025 Other aftercare (3 sources) Taking high risk medication; Translations: [Other correction (current) drug therapy] 04-09-2025 Episodic Other aftercare (1 source) 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; Translations: [High risk medication [...] Translations: [Constipation, unspecified] Onset: 10-24-2024 Episodic Other lower respiratory disease (1 source) Dyspnea; Translations: [Shortness of breath] 06-09-2025 Episodic Other lower respiratory disease (2 sources) Shortness of breath; Translations: [Shortness of breath] Onset: 06-09-2025 Episodic Other nutritional; endocrine; and metabolic disorders [...] Chronic Other nutritional; endocrine; and metabolic disorders (4 sources) Hyperuricemia; Translations: [Hyperuricemia without signs of inflammatory arthritis and tophaceous disease] 04-22-2025 Episodic Residual codes; unclassified (20 sources) Obstructive sleep apnea syndrome; Translations: [Obstructive sleep apnea (adult) (pediatric)] Onset: 02-07-2025 02-07-2025 Chronic Residual codes; unclassified (1 source) Obstructive sleep apnea (adult) (pediatric); Translations: [ROSA M (obstructive sleep apnea)] Onset: 02-07-2025 Chronic Residual codes; unclassified (4 sources) History of nephrectomy; Translations: [Acquired absence [...] Problem Classification Problem Date Documented Date Episodic/Chronic Acute and unspecified renal failure (2 sources) Acute renal failure syndrome; Translations: [Acute kidney failure, unspecified] Onset: 03-04-2025 02-28-2025 Episodic Deficiency and other anemia (20 sources) Iron deficiency anemia; Translations: [Iron deficiency anemia, unspecified] Onset: 02-10-2025 02-10-2025 Episodic Deficiency and other anemia (1 source) Iron deficiency anemia, unspecified; Translations: [Iron deficiency anemia, unspecified iron deficiency anemia type] Onset: 02-10-2025 Episodic Fluid and electrolyte disorders (2 sources) Hyperkalemia; Translations: [Hyperkalemia] Onset: 03-10-2025 03-10-2025 Episodic Neoplasms of unspecified nature or uncertain [...] Test Name Value Interpretation Reference Range Facility Office Visiton 06-18-2025 Follow-up visit [id number] Allan Le 1960 M Date Provider Department Center 06/18/2025 245-MÓNICA BOJORQUEZ SARITA [place] Family History Problem Relation Age of Onset Stroke Father Family Status - Relation Status Age at Mother Alive Father Level of Service:[id number] MD OFFICE/OUTPATIENT NEW MODERATE MDM 45 MINUTES Reason for Visit and Comments: New Patient [632] - Patient is here today for bradycardia, as a new patient to establish care with cardilology. Patient had recent Echo and holter monitor. Patient was taking Norvasc which caused him headaches and SOB no longer taking Bradycardia [052940] Hypertension [327657] Sleep Apnea [348] Normal [facility] CNPNon 06-17-2025 CNPN Normal [facility] GLUCOSE, BLOOD (POC)on 06-17 Glucose [Mass/Vol] 76 mg/dL 74 - 99 mg/dL [facility] Comment on above: Location:[facility], [address] [place] [address] , [place], [place], [facility] The Accu-Chek Inform II glucose [...] blood gas instrument) in the above situations. [facility] NM PET/CT SKULL-THIGH SUBQon 06-17-2025 NM PET/CT SKULL-THIGH SUBQ Normal [facility] Orders Onlyon 06-17-2025 Orders Only [id number] Allan Le 1960 M Date Provider Department [place] 06/17/2025 [id number], HISTORICAL CARD Jennifer Hos Family History Problem Relation Age of Onset Stroke Father Family Status - Relation Status Age at Mother Alive Father Normal [facility] PET+CT Guidance for localiza tion of tumor of Skull base to mid-thigh-- W [id number] Nikita 06-17-2025 * * *Final Report* * * DATE OF EXAM: Jun 17 2025 3:24PM NRN [id number] - [place] PET/CT SKULL-THIGH SUBQ / PROCEDURE REASON: multiple [...] designed to produce diagnostic CT scan quality. Physiologic/non-pathol ogic uptake in some body regions could confound or obscure some pathology. * CT Dose-Length Product (DLP): 438 mGy*cm * CT Dose Reduction Employed: Yes * Blood glucose: 76 mg/dL * Injection site: Right Forearm-Antecubital * Injected activity: 15.5 mCi * Uptake Time: 57 minutes * Radiopharmaceutical: G20-Gjfurobljkpzfunxro (FDG) COMPARISON: 04/01/2025 CORRELATION: Outside CT 12/14/2024 [...] any questions regarding this interpretation, please call [phone]. If you are unable to reach us at the number above, please feel free to contact [facility] at [phone]. DIVISION OF RADIOLOGY Provider, [facility] - 06/17/2025 * * *Final Report* * [...] designed to produce diagnostic CT scan quality. Physiologic/non-pathol ogic uptake in some body regions could confound or obscure some pathology. * CT Dose-Length Product (DLP): 438 mGy*cm * CT Dose Reduction Employed: Yes * Blood glucose: 76 mg/dL * Injection site: Right Forearm-Antecubital * Injected activity: 15.5 mCi * Uptake Time: 57 minutes * Radiopharmaceutical: Y54-Jdtqavpoddikjxoojw (FDG) COMPARISON: 04/01/2025 CORRELATION: Outside CT 12/14/2024 [...] any questions regarding this interpretation, please call [phone]. If you are unable to reach us at the number above, please feel free to contact [facility] eRadiology at [phone]. [facility] Radiology Study observation (narrative) [facility] PET+CT Guidance for localiza tion of tumor of Skull base to mid-thigh-- W 17F-FDG IVOrdered By: Ccf Provider on 06-17-2025 [facility] US venous duplex LE BIon US venous duplex LE BI [facility] [place] [address] Ultrasound Report Signed Patient: Skyler Le MR#: [id number] 3 : 1960 Acct:[id number] Age/Sex: 65 / M ADM Date: 06/09/25 Loc: Room: Type: [facility] Attending Dr: Ernesto Phoenix MD Ordering Provider: Ernesto Phoenix MD Date of Service: 06/09/25 US/US venous duplex LE BI: R60.0 Copies to: Ernesto Phoenix MD BILATERAL LOWER EXTREMITY VENOUS DUPLEX INDICATION: Swollen legs PROCEDURE: Color-flow duplex scanning is used to interrogate the deep venous system of the right and left lower extremities. The common femoral vein, femoral vein and popliteal vein show good compressibility with normal proximal and distal augmentation. The posterior tibial and peroneal veins are compressible. US/US venous duplex LE BI IMPRESSION: NO EVIDENCE FOR DEEP VEIN THROMBOSIS OR PROXIMAL SUPERFICIAL THROMBOPHLEBITIS IN THE RIGHT OR LEFT LOWER EXTREMITY. Impression dictated by: Dedrick Li M.D. 06/11/2025 9:06 AM Dictation Location: [place] [address] Tech: Yamileth Antonio Transcribed By: CLINTON 06/11/25905 Dictated By: Dedrick Li MD 06/11/25904 Signed By: 06/11/25905 Normal [facility] Comprehensive metabolic 2000 panelon 06-10-2025 Albumin [Mass/Vol] 3.7 g/dL Low 3.9 - 4.9 g/dL [facility] ALP [Catalytic activity/Vol] 72 U/L 38 - 113 U/L [facility] ALT [Catalytic activity/Vol] 9 U/L Low 10 - 54 U/L [facility] Anion gap [Moles/Vol] 11 mmol/L 8 - 15 mmol/L [facility] AST [Catalytic activity/Vol] 18 U/L 14 - 40 U/L [facility] Bilirubin [Mass/Vol] 0.2 mg/dL 0.2 - 1 .3 mg/dL [facility] Calcium [Mass/Vol] 8.8 mg/dL 8.5 - 10. 2 mg/dL [facility] Chloride [Moles/Vol] 104 mmol/L 98 - 10 7 mmol/L [facility] CO2 [Moles/Vol] 23 mmol/L 22 - 30 mmol/L [facility] Creatinine [Mass/Vol] 2.26 mg/dL High 0.73 - 1.22 mg/dL [facility] GFR/1.73 sq M.predicted among non-blacks MDRD (S/P/Bld) [Vol rate/Area] 31 mL/min/{1.73_m2} Low - PINF [facility] Comment on above: Estimated Glomerular Filtration Rate [...] not accurately reflect actual GFR. Glucose [Mass/Vol] 90 mg/dL 74 - 99 mg/dL [facility] Comment on above: The [place] Diab[employer] Association (ADA) provides guidance for [...] Standards of Medical Care in Diabetes 2016, [place] [employer]. Diabetes Care. 2016.39(Suppl 1). Interpretation and review of laboratory results Abnormal [facility] Potassium [Moles/Vol] 4.6 mmol/L 3.7 - 5.1 mmol/L [facility] Protein [Mass/Vol] 6.7 g/dL 6.3 - 8.0 g/dL [facility] Sodium [Moles/Vol] 138 mmol/L 136 - 144 mmol/L [facility] Urea nitrogen [Mass/Vol] 24 mg/dL 9 - 24 mg/dL [facility] CBC W Auto Differential pane l (Bld)on 06-09-2025 Basophils (Bld) [#/Vol] 0.06 10*3/uL [facility] Basophils/100 WBC (Bld) 0.6 % C [facility] Differential cell count method Nom (Bld) Auto [facility] Eosinophils (Bld) [#/Vol] 0.17 10*3/uL [facility] Eosinophils/100 WBC (Bld) 1.8 % [facility] Erythrocyte distribution width (RBC) [Ratio] 18.0 % High 11.5 - 15.0 % [facility] Hematocrit (Bld) [Volume fraction] 34.4 % Low 39.0 - 51.0 % [facility] Hemoglobin (Bld) [Mass/Vol] 10.8 g/dL Low 13.0 - 17.0 g/dL [facility] Immature granulocytes (Bld) [#/Vol] 0.04 10*3/[facility]L [facility] Immature granulocytes/100 WBC (Bld) 0.4 % [facility] Interpretation and review of laboratory results Abnormal [facility] Lymphocytes (Bld) [#/Vol] 1.05 10*3/uL [facility] Lymphocytes/100 WBC (Bld) 11.1 % [facility] MCH (RBC) [Entitic mass] 26.5 pg 26.0 - 34.0 pg [facility] MCHC (RBC) [Mass/Vol] 31.4 g/dL 30.5 - 36.0 g/dL [facility] MCV (RBC) [Entitic vol] 84.3 fL 80.0 - 100.0 fL [facility] Monocytes (Bld) [#/Vol] 0.79 10*3/uL [facility] Monocytes/100 WBC (Bld) 8.4 % [facility] Neutrophils (Bld) [#/Vol] 7.35 10*3/uL [facility] Neutrophils/100 WBC (Bld) 77.7 % [facility] Nucleated RBC (Bld) [#/Vol] [facility] Nucleated RBC/100 WBC (Bld) [Ratio] 0.0 % /100 WBC [facility] Platelet mean volume (Bld) [Entitic vol] 9.7 fL 9.0 - 12.7 fL [facility] Platelets (Bld) [#/Vol] 189 10*3/uL [facility] RBC (Bld) [#/Vol] 4.08 10*6/uL Low 4.20 - 6.0 0 m/uL [facility] WBC (Bld) [#/Vol] 9.46 10*3/uL [facility] Basophils (Bld) [#/Vol] 0.06 10*3/uL Normal <0.11 [facility] Comment on above: Order Comment: Speci men Type: BLOOD SPECIMENOrdering Facility: [facility] Address: [address] [place], [place] [address] Performed By: #### 5 7021-8 ####[facility] LABCLIA [id number] [place] [address] Basophils/100 WBC (Bld) 0.6 % Normal C [facility] Comment on above: Order Comment: Speci men Type: BLOOD SPECIMENOrdering Facility: [facility] Address: [address] [place] [address] Performed By: #### 5 7021-8 ####[facility] LABCLIA [id number] [place] [address] Differential cell count method Nom (Bld) Auto Normal [facility] Comment on above: Order Comment: Speci men Type: BLOOD SPECIMENOrdering Facility: [facility] Address: [address] [place] [address] Performed By: #### 5 7021-8 ####[facility] LABCLIA [id number] [place] [address] Eosinophils (Bld) [#/Vol] 0.17 10*3/uL Normal <0.46 [facility] Comment on above: Order Comment: Speci men Type: BLOOD SPECIMENOrdering Facility: [facility] Address: [address] [place] [address] Performed By: #### 5 7021-8 ####[facility] LABCLIA [id number] [place] [address] Eosinophils/100 WBC (Bld) 1.8 % Normal [facility] Comment on above: Order Comment: Speci men Type: BLOOD SPECIMENOrdering Facility: [facility] Address: [address] [place] [address] Performed By: #### 5 7021-8 ####[facility] LABCLIA [id number] [place] [address] Erythrocyte distribution width (RBC) [Ratio] 18.0 % High 11.5-15.0 [facility] Comment on above: Order Comment: Speci men Type: BLOOD SPECIMENOrdering Facility: [facility] Address: [address] [place] [address] Performed By: #### 5 7021-8 ####[facility] LABCLIA [id number] [place] [address] Hematocrit (Bld) [Volume fraction] 34.4 % Low 39.0-51.0 [facility] Comment on above: Order Comment: Speci men Type: BLOOD SPECIMENOrdering Facility: [facility] Address: [address] [place] [address] Performed By: #### 5 7021-8 ####[facility] LABCLIA [id number] [place] [address] Hemoglobin (Bld) [Mass/Vol] 10.8 g/dL Low 13.0-17.0 [facility] Comment on above: Order Comment: Speci men Type: BLOOD SPECIMENOrdering Facility: [facility] Address: [address] [place] [address] Performed By: #### 5 7021-8 ####[facility] LABCLIA [id number] [place] [address] Immature granulocytes (Bld) [#/Vol] 0.04 10*3/uL Normal <0.10 [facility] Comment on above: Order Comment: Speci men Type: BLOOD SPECIMENOrdering Facility: [facility] Address: [address] [place] [address] Performed By: #### 5 7021-8 ####[facility] LABCLIA [id number] [place] [address] Immature granulocytes/100 WBC (Bld) 0.4 % Normal [facility] Comment on above: Order Comment: Speci men Type: BLOOD SPECIMENOrdering Facility: [facility] Address: [address] [place] [address] Performed By: #### 5 7021-8 ####[facility] LABCLIA [id number] [place] [address] Lymphocytes (Bld) [#/Vol] 1.05 10*3/uL Normal 1.00-4.00 [facility] Comment on above: Order Comment: Speci men Type: BLOOD SPECIMENOrdering Facility: [facility] Address: [address] [place] [address] Performed By: #### 5 7021-8 ####[facility] LABCLIA [id number] [place] [address] Lymphocytes/100 WBC (Bld) 11.1 % Normal [facility] Comment on above: Order Comment: Speci men Type: BLOOD SPECIMENOrdering Facility: [facility] Address: [address] [place] [address] Performed By: #### 5 7021-8 ####[facility] LABCLIA [id number] [place] [address] MCH (RBC) [Entitic mass] 26.5 pg Normal 26.0-34.0 [facility] Comment on above: Order Comment: Speci men Type: BLOOD SPECIMENOrdering Facility: [facility] Address: [address] [place] [address] Performed By: #### 5 7021-8 ####[facility] LABCLIA [id number] [place] [address] MCHC (RBC) [Mass/Vol] 31.4 g/dL Normal 30.5-36.0 [facility] Comment on above: Order Comment: Speci men Type: BLOOD SPECIMENOrdering Facility: [facility] Address: [address] [place] [address] Performed By: #### 5 7021-8 ####[facility] LABCLIA [id number] [place] [address] MCV (RBC) [Entitic vol] 84.3 fL Normal 80.0-100.0 [facility] Comment on above: Order Comment: Speci men Type: BLOOD SPECIMENOrdering Facility: [facility] Address: [address] [place] [address] Performed By: #### 5 7021-8 ####[facility] LABCLIA [id number] [place] [address] Monocytes (Bld) [#/Vol] 0.79 10*3/uL Normal <0.87 [facility] Comment on above: Order Comment: Speci men Type: BLOOD SPECIMENOrdering Facility: [facility] Address: [address] [place] [address] Performed By: #### 5 7021-8 ####[facility] LABCLIA [id number] [place] [address] Monocytes/100 WBC (Bld) 8.4 % Normal [facility] Comment on above: Order Comment: Speci men Type: BLOOD SPECIMENOrdering Facility: [facility] Address: [address] [place] [address] Performed By: #### 5 7021-8 ####[facility] LABCLIA [id number] [place] [address] Neutrophils (Bld) [#/Vol] 7.35 10*3/uL Normal 1.45-7.50 [facility] Comment on above: Order Comment: Speci men Type: BLOOD SPECIMENOrdering Facility: [facility] Address: [address] [place] [address] Performed By: #### 5 7021-8 ####[facility] LABCLIA [id number] [place] [address] Neutrophils/100 WBC (Bld) 77.7 % Normal [facility] Comment on above: Order Comment: Speci men Type: BLOOD SPECIMENOrdering Facility: [facility] Address: [address] [place] [address] Performed By: #### 5 7021-8 ####[facility] LABCLIA [id number] [place] [address] Nucleated RBC (Bld) [#/Vol] 10*3/uL Normal <0.01 [facility] Comment on above: Order Comment: Speci men Type: BLOOD SPECIMENOrdering Facility: [facility] Address: [address] [place] [address] Performed By: #### 5 7021-8 ####[facility] LABCLIA [id number] [place] [address] Nucleated RBC/100 WBC (Bld) [Ratio] 0.0 /100 WBC Normal [facility] Comment on above: Order Comment: Speci men Type: BLOOD SPECIMENOrdering Facility: [facility] Address: [address] [place] [address] Performed By: #### 5 7021-8 ####[facility] LABCLIA [id number] [place] [address] Platelet mean volume (Bld) [Entitic vol] 9.7 fL Normal 9.0-12.7 [facility] Comment on above: Order Comment: Speci men Type: BLOOD SPECIMENOrdering Facility: [facility] Address: [address] [place] [address] Performed By: #### 5 7021-8 ####[facility] LABIA [id number] [place] [address] Platelets (Bld) [#/Vol] 189 10*3/uL Normal 150-400 [facility] Comment on above: Order Comment: Speci men Type: BLOOD SPECIMENOrdering Facility: [facility] Address: [address] [place] [address] Performed By: #### 5 7021-8 ####[facility] LABCLIA [id number] [place] [address] RBC (Bld) [#/Vol] 4.08 10*6/uL Low 4.20-6.00 [facility] Comment on above: Order Comment: Speci men Type: BLOOD SPECIMENOrdering Facility: [facility] Address: [address] [place] [address] Performed By: #### 5 7021-8 ####[facility] LABCLIA [id number] [place] [address] WBC (Bld) [#/Vol] 9.46 10*3/uL Normal 3.70-11.00 [facility] Comment on above: Order Comment: Speci men Type: BLOOD SPECIMENOrdering Facility: [facility] Address: [address] [place] [address] Performed By: #### 5 7021-8 ####[facility] LABCLIA [id number] [place] [address] CNOVSPon 06-09-2025 CNOVSP Normal [facility] CNPNon 06-09-2025 CNPN Normal [facility] Comprehensive metabolic 2000 panelon 06-09-2025 Albumin [Mass/Vol] 3.7 g/dL Low 3.9-4.9 [facility] Comment on above: Order Comment: Speci men Type: BLOOD SPECIMENOrdering Facility: [facility] Address: [address] [place] [address] Performed By: #### 2 4323-8 ####[facility] LABCLIA [id number] [place] [address] [place] ALP [Catalytic activity/Vol] 72 U/L Normal 38-113 [facility] Comment on above: Order Comment: Speci men Type: BLOOD SPECIMENOrdering Facility: [facility] Address: [address] [place] [address] Performed By: #### 2 4323-8 ####[facility] LABCLIA [id number] [place] [id number] [place] ALT [Catalytic activity/Vol] 9 U/L Low 10-54 [facility] Comment on above: Order Comment: Speci men Type: BLOOD SPECIMENOrdering Facility: [facility] Address: [address] [place] [address] Performed By: #### 2 4323-8 ####[facility] LABCLIA [id number] [place] [id number] [place] Anion gap [Moles/Vol] 11 mmol/L Normal 8-15 [facility] Comment on above: Order Comment: Speci men Type: BLOOD SPECIMENOrdering Facility: [facility] Address: [address] [place] [id number] Performed By: #### 2 4323-8 ####[facility] LABCLIA [id number] [address] [address] [place] AST [Catalytic activity/Vol] 18 U/L Normal 14-40 [facility] Comment on above: Order Comment: Speci men Type: BLOOD SPECIMENOrdering Facility: [facility] Address: [address] [place] [id number] Performed By: #### 2 4323-8 ####[facility] LABCLIA [id number] [place] [id number] [place] Bilirubin [Mass/Vol] 0.2 mg/dL Normal 0.2-1.3 [facility] Comment on above: Order Comment: Speci men Type: BLOOD SPECIMENOrdering Facility: [facility] Address: [address] [place], [place] [address] Performed By: #### 2 4323-8 ####[facility] LABIA [id number] [address] [address] [place] Calcium [Mass/Vol] 8.8 mg/dL Normal 8.5-10.2 [facility] Comment on above: Order Comment: Speci men Type: BLOOD SPECIMENOrdering Facility: [facility] Address: [address] [place] [address] Performed By: #### 2 4323-8 ####[facility] LABCLIA [id number] [address] [address] [place] Chloride [Moles/Vol] 104 mmol/L Normal 98-107 [facility] Comment on above: Order Comment: Speci men Type: BLOOD SPECIMENOrdering Facility: [facility] Address: [address] [place], [place] [address] Performed By: #### 2 4323-8 ####[facility] LABCLIA [id number] [facility] [address] [place] [address] [place] CO2 [Moles/Vol] 23 mmol/L Normal 22-30 [facility] Comment on above: Order Comment: Speci men Type: BLOOD SPECIMENOrdering Facility: [facility] Address: [address] [place] [address] Performed By: #### 2 4323-8 ####[facility] LABCLIA [id number] [facility] [address] [place] [address] [place] Creatinine [Mass/Vol] 2.26 mg/dL High 0.73-1.22 [facility] Comment on above: Order Comment: Speci men Type: BLOOD SPECIMENOrdering Facility: [facility] Address: [address] [place] [address] Performed By: #### 2 4323-8 ####[facility] LABCLIA [id number] [place] [id number] [place] eGFRcr SerPlBld CKD-EPI 2020 31 mL/min/1.73m??? Low >=60 [facility] Comment on above: Order Comment: Speci men Type: BLOOD SPECIMENOrdering Facility: [facility] Address: [address] [place] [address] Result Comment: Samantha mated Glomerular Filtration Rate [...] actual GFR. Performed By: #### 2 4323-8 ####[facility] LABCLIA [id number] [facility] [address] [place] [address] [place] Glucose [Mass/Vol] 90 mg/dL Normal 74-99 [facility] Comment on above: Order Comment: Speci men Type: BLOOD SPECIMENOrdering Facility: [facility] Address: [address] [place] [address] Result Comment: The [place] [employer] (ADA) provides guidance for cutoff values for fasting glucose and random glucose. The ADA defines fasting as no caloric intake for at least 8 hours. Fasting plasma glucose results between 100 to 125 mg/dL indicate increased risk for diabetes (prediabetes).Fasting plasma glucose results greater than or equal to 126 mg/dL meet the criteria for diagnosis of diabetes. In the absence of unequivocal hyperglycemia, results should be confirmed by repeat testing. In a patient with classic symptoms of hyperglycemia or hyperglycemic crisis, random plasma glucose results greater than or equal to 200 mg/dL meet the criteria for diagnosis of diabetes.Reference: Standards of Medical Care in Diabetes 2016, [place] [employer]. Diabetes Care. 2016.39(Suppl 1). Performed By: #### 2 4323-8 ####[facility] LABCLIA [id number] [place] [id number] [place] Potassium [Moles/Vol] 4.6 mmol/L Normal 3.7-5.1 [facility] Comment on above: Order Comment: Speci men Type: BLOOD SPECIMENOrdering Facility: [facility] Address: [address] [place] [address] Performed By: #### 2 4323-8 ####[facility] LABCLIA [id number] [address] [address] [place] Protein [Mass/Vol] 6.7 g/dL Normal 6.3-8.0 [facility] Comment on above: Order Comment: Speci men Type: BLOOD SPECIMENOrdering Facility: [facility] Address: [address] [place] [address] Performed By: #### 2 4323-8 ####[facility] LABCLIA [id number] [address] [address] [place] Sodium [Moles/Vol] 138 mmol/L Normal 136-144 [facility] Comment on above: Order Comment: Speci men Type: BLOOD SPECIMENOrdering Facility: [facility] Address: [address] [place] [address] Performed By: #### 2 4323-8 ####[facility] LABCLIA [id number] [place] [id number] [place] Urea nitrogen [Mass/Vol] 24 mg/dL Normal 9-24 [facility] Comment on above: Order Comment: Speci men Type: BLOOD SPECIMENOrdering Facility: [facility] Address: [address] [place] [address] Performed By: #### 2 4323-8 ####[facility] LABIA [id number] [place] [address] [place] Prot/Creat Uron 06-09-2025 Protein/Creatinine (U) [Mass ratio] 1.22 mg/mg High <0.15 [facility] Comment on above: Order Comment: Speci men Type: URINE SPECIMENOrdering Facility: [facility] Address: [address] [place] [address] Result Comment: Adul t Proteinuria Categories:<0.15 mg/mg is considered normal to mildly increased0.15 - 0.50 mg/mg is considered moderately increased>0.50 mg/mg is considered severely increasedKDIGO. (2013). KDIGO 2012 Clinical Practice Guideline for the Evaluation and Management of Chronic Kidney Disease. Official Journal of the International Society of Nephrology, 3(1), 1-150. Performed By: #### 2 890-2 ####[facility] LABIA [id number] [place] [id number] [place] Protein/Creatinine (U) [Mass ratio]on 06-09-2025 Creatinine (U) [Mass/Vol] 31.2 mg/dL Normal 20.0-300.0 [facility] Comment on above: Order Comment: Speci men Type: URINE SPECIMENOrdering Facility: [facility] Address: [address] [place] [address] Performed By: #### 2 890-2 ####[facility] LABCLIA [id number] [place] [address] [place] Protein (U) [Mass/Vol] 38 mg/dL High 0-20 [facility] Comment on above: Order Comment: Speci men Type: URINE SPECIMENOrdering Facility: [facility] Address: [address] [place] [address] Performed By: #### 2 890-2 ####[facility] LABCLIA [id number] [place] [id number] [place] X-ray reportOrdered By: Satish Weeks on 06-09-2025 Study report [facility] [address] [address] XRay Report Signed Patient: Skyler Le MR#: [id number] : 1960 Acct:[id number] Age/Sex: 65 / M ADM Date: 5 Loc: [facility]: [facility] Attending Dr: Ernesto Phoenix MD Copies to: [...] Weeks M.D. 06/09/2025 5:40 PM Dictation Location: [place] [address] Transcribed By: [facility] 06/09/251739 Dictated By: Geovani Weeks MD 06/09/251738 Signed By: 06/09/251739 [facility] Work Phone: XR chest 2V*on 06-09-2025 XR chest 2V* [facility] Main [address] [address] XRay Report Signed Patient: Skyler Le MR#: [id number] 3 : 1960 Acct:[id number] Age/Sex: 65 / M ADM Date: 06/09/25 Loc: Room: [facility] Attending Dr: Ernesto Phoenix MD Copies to: Ernesto Phoenix MD Ordering Provider: Ernesto Phoenix MD Date of Service: 06/09/25 XR/XR chest 2V*: R60.0 PA AND LATERAL CHEST: CLINICAL HISTORY: Shortness breath 2 weeks, dry cough COMPARISON: None FINDINGS: Prominent cardiomediastinal. Lungs are clear. No effusion or pneumothorax. XR/XR chest 2V* IMPRESSION: NO ACUTE CARDIOPULMONARY ABNORMALITY. Impression dictated by: Geovani Weeks M.D. 06/09/2025 5:40 PM Dictation Location: [place] [address] Transcribed By: [facility] 06/09/25 174 Dictated By: Geovani Weeks MD 06/09/25 173 Signed By: 06/09/25 174 Normal [facility] CBC W Auto Differential pane l (Bld)on 05-30-2025 Basophils (Bld) [#/Vol] 0.05 10*3/uL Normal <0.11 [facility] Comment on above: Order Comment: Speci men Type: BLOOD SPECIMENOrdering Facility: [facility] Address: [address] [place] [address] Performed By: #### 5 7021-8 ####[facility] LABCLIA [id number] [place] [address] Basophils/100 WBC (Bld) 0.6 % Normal C [facility] Comment on above: Order Comment: Speci men Type: BLOOD SPECIMENOrdering Facility: [facility] Address: [address] [place] [address] Performed By: #### 5 7021-8 ####[facility] LABCLIA [id number] [place] [address] Differential cell count method Nom (Bld) Auto Normal [facility] Comment on above: Order Comment: Speci men Type: BLOOD SPECIMENOrdering Facility: [facility] Address: [address] [place] [address] Performed By: #### 5 7021-8 ####[facility] LABCLIA [id number] [place] [address] Eosinophils (Bld) [#/Vol] 0.16 10*3/uL Normal <0.46 [facility] Comment on above: Order Comment: Speci men Type: BLOOD SPECIMENOrdering Facility: [facility] Address: [address] [place] [address] Performed By: #### 5 7021-8 ####[facility] LABCLIA [id number] [place] [address] Eosinophils/100 WBC (Bld) 2.1 % Normal [facility] Comment on above: Order Comment: Speci men Type: BLOOD SPECIMENOrdering Facility: [facility] Address: [address] [place] [address] Performed By: #### 5 7021-8 ####[facility] LABCLIA [id number] [place] [address] Erythrocyte distribution width (RBC) [Ratio] 17.9 % High 11.5-15.0 [facility] Comment on above: Order Comment: Speci men Type: BLOOD SPECIMENOrdering Facility: [facility] Address: [address] [place] [address] Performed By: #### 5 7021-8 ####[facility] LABCLIA [id number] [place] [address] Hematocrit (Bld) [Volume fraction] 34.3 % Low 39.0-51.0 [facility] Comment on above: Order Comment: Speci men Type: BLOOD SPECIMENOrdering Facility: [facility] Address: [address] [place] [address] Performed By: #### 5 7021-8 ####[facility] LABCLIA [id number] [place] [address] Hemoglobin (Bld) [Mass/Vol] 10.9 g/dL Low 13.0-17.0 [facility] Comment on above: Order Comment: Speci men Type: BLOOD SPECIMENOrdering Facility: [facility] Address: [address] [place] [address] Performed By: #### 5 7021-8 ####[facility] LABCLIA [id number] [place] [address] Immature granulocytes (Bld) [#/Vol] 0.04 10*3/uL Normal <0.10 [facility] Comment on above: Order Comment: Speci men Type: BLOOD SPECIMENOrdering Facility: [facility] Address: [address] [place] [address] Performed By: #### 5 7021-8 ####[facility] LABCLIA [id number] [place] [address] Immature granulocytes/100 WBC (Bld) 0.5 % Normal [facility] Comment on above: Order Comment: Speci men Type: BLOOD SPECIMENOrdering Facility: [facility] Address: [address] [place] [address] Performed By: #### 5 7021-8 ####[facility] LABCLIA [id number] [place] [address] Lymphocytes (Bld) [#/Vol] 1.07 10*3/uL Normal 1.00-4.00 [facility] Comment on above: Order Comment: Speci men Type: BLOOD SPECIMENOrdering Facility: [facility] Address: [address] [place] [address] Performed By: #### 5 7021-8 ####[facility] LABCLIA [id number] [place] [address] Lymphocytes/100 WBC (Bld) 13.9 % Normal [facility] Comment on above: Order Comment: Speci men Type: BLOOD SPECIMENOrdering Facility: [facility] Address: [address] [place] [address] Performed By: #### 5 7021-8 ####[facility] LABCLIA [id number] [place] [address] MCH (RBC) [Entitic mass] 26.4 pg Normal 26.0-34.0 [facility] Comment on above: Order Comment: Speci men Type: BLOOD SPECIMENOrdering Facility: [facility] Address: [address] [place] [address] Performed By: #### 5 7021-8 ####[facility] LABCLIA [id number] [place] [address] MCHC (RBC) [Mass/Vol] 31.8 g/dL Normal 30.5-36.0 [facility] Comment on above: Order Comment: Speci men Type: BLOOD SPECIMENOrdering Facility: [facility] Address: [address] [place] [address] Performed By: #### 5 7021-8 ####[facility] LABCLIA [id number] [place] [address] MCV (RBC) [Entitic vol] 83.1 fL Normal 80.0-100.0 C [facility] Comment on above: Order Comment: Speci men Type: BLOOD SPECIMENOrdering Facility: [facility] Address: [address] [place] [address] Performed By: #### 5 7021-8 ####[facility] LABCLIA [id number] [place] [address] Monocytes (Bld) [#/Vol] 0.57 10*3/uL Normal <0.87 [facility] Comment on above: Order Comment: Speci men Type: BLOOD SPECIMENOrdering Facility: [facility] Address: [address] [place] [address] Performed By: #### 5 7021-8 ####[facility] [facility] LABCLIA [id number] [place] [address] Monocytes/100 WBC (Bld) 7.4 % Normal C [facility] Comment on above: Order Comment: Speci men Type: BLOOD SPECIMENOrdering Facility: [facility] Address: [address] [place] [address] Performed By: #### 5 7021-8 ####[facility] LABCLIA [id number] [place] [address] Neutrophils (Bld) [#/Vol] 5.83 10*3/uL Normal 1.45-7.50 [facility] Comment on above: Order Comment: Speci men Type: BLOOD SPECIMENOrdering Facility: [facility] Address: [address] [place] [address] Performed By: #### 5 7021-8 ####[facility] LABCLIA [id number] [place] [address] Neutrophils/100 WBC (Bld) 75.5 % Normal [facility] Comment on above: Order Comment: Speci men Type: BLOOD SPECIMENOrdering Facility: [facility] Address: [address] [place] [address] Performed By: #### 5 7021-8 ####[facility] LABCLIA [id number] [place] [address] Nucleated RBC (Bld) [#/Vol] 10*3/uL Normal <0.01 [facility] Comment on above: Order Comment: Speci men Type: BLOOD SPECIMENOrdering Facility: [facility] Address: [address] [place] [address] Performed By: #### 5 7021-8 ####[facility] LABCLIA [id number] [place] [address] Nucleated RBC/100 WBC (Bld) [Ratio] 0.0 /100 WBC Normal [facility] Comment on above: Order Comment: Speci men Type: BLOOD SPECIMENOrdering Facility: [facility] Address: [address] [place] [address] Performed By: #### 5 7021-8 ####[facility] LABCLIA [id number] [place] [address] Platelet mean volume (Bld) [Entitic vol] 9.0 fL Normal 9.0-12.7 [facility] Comment on above: Order Comment: Speci men Type: BLOOD SPECIMENOrdering Facility: [facility] Address: [address] [place] [address] Performed By: #### 5 7021-8 ####[facility] LABIA [id number] [place] [address] Platelets (Bld) [#/Vol] 166 10*3/uL Normal 150-400 [facility] Comment on above: Order Comment: Speci men Type: BLOOD SPECIMENOrdering Facility: [facility] Address: [address] [place] [address] Performed By: #### 5 7021-8 ####[facility] LABIA [id number] [place] [address] RBC (Bld) [#/Vol] 4.13 10*6/uL Low 4.20-6.00 [facility] Comment on above: Order Comment: Speci men Type: BLOOD SPECIMENOrdering Facility: [facility] Address: [address] [place] [address] Performed By: #### 5 7021-8 ####[facility] LABIA [id number] [place] [address] WBC (Bld) [#/Vol] 7.72 10*3/uL Normal 3.70-11.00 [facility] Comment on above: Order Comment: Speci men Type: BLOOD SPECIMENOrdering Facility: [facility] Address: [address] [place] [address] Performed By: #### 5 7021-8 ####[facility] LABIA [id number] [place] [address] CNOVSPon 05-30-2025 CNOVSP Normal [facility] metabolic 2000 panelon 05-30-2025 Albumin [Mass/Vol] 3.8 g/dL Low 3.9-4.9 [facility] Comment on above: Order Comment: Speci men Type: BLOOD SPECIMENOrdering Facility: [facility] Address: [address] [place] [address] Performed By: #### 1 9123-9, 54287-2 ####[facility] LABCLIA [id number] [place] [address] ALP [Catalytic activity/Vol] 82 U/L Normal 38-113 [facility] Comment on above: Order Comment: Speci men Type: BLOOD SPECIMENOrdering Facility: [facility] Address: [address] [place] [address] Performed By: #### 1 9123-9, 50141-0 ####[facility] LABCLIA [id number] [place] [address] ALT [Catalytic activity/Vol] 10 U/L Normal 10-54 [facility] Comment on above: Order Comment: Speci men Type: BLOOD SPECIMENOrdering Facility: [facility] Address: [address] [place] [address] Performed By: #### 1 9123-9, 63082-9 ####[facility] LABCLIA [id number] [place] [address] Anion gap [Moles/Vol] 10 mmol/L Normal 8-15 [facility] Comment on above: Order Comment: Speci men Type: BLOOD SPECIMENOrdering Facility: [facility] Address: [address] [place] [address] Performed By: #### 1 9123-9, 80546-7 ####[facility] LABCLIA [id number] [place] [address] AST [Catalytic activity/Vol] 15 U/L Normal 14-40 [facility] Comment on above: Order Comment: Speci men Type: BLOOD SPECIMENOrdering Facility: [facility] Address: [address] [place] [address] Performed By: #### 1 9123-9, 07162-2 ####[facility] LABCLIA [id number] [place] [address] Bilirubin [Mass/Vol] 0.3 mg/dL Normal 0.2-1.3 [facility] Comment on above: Order Comment: Speci men Type: BLOOD SPECIMENOrdering Facility: [facility] Address: [address] [place] [address] Performed By: #### 1 239, ####[facility] LABCLIA [id number] [place] [address] Calcium [Mass/Vol] 9.1 mg/dL Normal 8.5-10.2 [facility] Comment on above: Order Comment: Speci men Type: BLOOD SPECIMENOrdering Facility: [facility] Address: [address] [place] [address] Performed By: #### 1 239, ####[facility] LABCLIA [id number] [place] [address] Chloride [Moles/Vol] 101 mmol/L Normal 98-107 [facility] Comment on above: Order Comment: Speci men Type: BLOOD SPECIMENOrdering Facility: [facility] Address: [address] [place] [address] Performed By: #### 1 239, ####[facility] LABCLIA [id number] [place] [address] CO2 [Moles/Vol] 26 mmol/L Normal 22-30 [facility] Comment on above: Order Comment: Speci men Type: BLOOD SPECIMENOrdering Facility: [facility] Address: [address] [place] [address] Performed By: #### 1 9123-9, 06985-7 ####[facility] LABCLIA [id number] [place] [address] Creatinine [Mass/Vol] 2.10 mg/dL High 0.73-1.22 [facility] Comment on above: Order Comment: Miguelina thomas Type: BLOOD SPECIMENOrdering Facility: [facility] Address: [address] [place], [place] [address] Performed By: #### 1 9123-9, 86575-5 ####[facility] LABCLIA [id number] [place] [address] eGFRcr SerPlBld CKD-EPI 2020 34 mL/min/1.73m??? Low >=60 [facility] Comment on above: Order Comment: Miguelina thomas Type: BLOOD SPECIMENOrdering Facility: [facility] Address: [address] [place] [address] Result Comment: Samantha mated Glomerular Filtration Rate [...] actual GFR. Performed By: #### 1 9123-9, 26368-0 ####[facility] LABCLIA [id number] [place] [address] Glucose [Mass/Vol] 105 mg/dL High 74-99 [facility] Comment on above: Order Comment: Miguelina thomas Type: BLOOD SPECIMENOrdering Facility: [facility] Address: [address] [place], [place] [address] Result Comment: The [place] Diabetes Association (ADA) provides guidance for cutoff values for fasting glucose and random glucose. The ADA defines fasting as no caloric intake for at least 8 hours. Fasting plasma glucose results between 100 to 125 mg/dL indicate increased risk for diabetes (prediabetes).Fasting plasma glucose results greater than or equal to 126 mg/dL meet the criteria for diagnosis of diabetes. In the absence of unequivocal hyperglycemia, results should be confirmed by repeat testing. In a patient with classic symptoms of hyperglycemia or hyperglycemic crisis, random plasma glucose results greater than or equal to 200 mg/dL meet the criteria for diagnosis of diabetes.Reference: Standards of Medical Care in Diabetes 2016, [place] [employer]. Diabetes Care. 2016.39(Suppl 1). Performed By: #### 1 9123-9, ####[facility] LABCLIA [id number] [place] [address] Potassium [Moles/Vol] 4.6 mmol/L Normal 3.7-5.1 [facility] Comment on above: Order Comment: Speci men Type: BLOOD SPECIMENOrdering Facility: [facility] Address: [address] [place] [address] Performed By: #### 1 239, 45716-0 ####[facility] LABCLIA [id number] [place] [address] Protein [Mass/Vol] 6.8 g/dL Normal 6.3-8.0 [facility] Comment on above: Order Comment: Speci men Type: BLOOD SPECIMENOrdering Facility: [facility] Address: [address] [place], [place] [address] Performed By: #### 1 239, 54222-2 ####[facility] LABCLIA [id number] [place] [address] Sodium [Moles/Vol] 137 mmol/L Normal 136-144 [facility] Comment on above: Order Comment: Speci men Type: BLOOD SPECIMENOrdering Facility: [facility] Address: [address] [place] [address] Performed By: #### 1 9, 73282-9 ####[facility] LABCLIA [id number] [place] [address] Urea nitrogen [Mass/Vol] 26 mg/dL High 9-24 [facility] Comment on above: Order Comment: Speci men Type: BLOOD SPECIMENOrdering Facility: [facility] Address: [address] [place] [address] Performed By: #### 1 23, 67086-2 ####[facility] LABCLIA [id number] [place] [address] Magnesium SerPl-mCncon 05-30 Magnesium [Mass/Vol] 1.8 mg/dL Normal 1.7-2.3 [facility] Comment on above: Order Comment: Speci men Type: BLOOD SPECIMENOrdering Facility: [facility] Address: [address] [place] [address] Performed By: #### 1 9123-9, 41196-8 ####[facility] LABCLIA [id number] [place] [address] Prot/Creat Uron 05-30-2025 Protein/Creatinine (U) [Mass ratio] 0.81 mg/mg High <0.15 [facility] Comment on above: Order Comment: Speci men Type: URINE SPECIMENOrdering Facility: [facility] Address: [address] [place] [address] Result Comment: Adul t Proteinuria Categories:<0.15 mg/mg is considered normal to mildly increased0.15 - 0.50 mg/mg is considered moderately increased>0.50 mg/mg is considered severely increasedKDIGO. (2013). KDIGO 2012 Clinical Practice Guideline for the Evaluation and Management of Chronic Kidney Disease. Official Journal of the International Society of Nephrology, 3(1), 1-150. Performed By: #### 2 890-2 ####[facility] LABIA [id number] [place] [id number] [place] Protein/Creatinine (U) [Mass ratio]on 05-30-2025 Creatinine (U) [Mass/Vol] 104.6 mg/dL Normal 20.0-300.0 [facility] Comment on above: Order Comment: Speci men Type: URINE SPECIMENOrdering Facility: [facility] Address: [address] [place] [address] Performed By: #### 2 890-2 ####[facility] LABIA [id number] [place] [id number] [place] Protein (U) [Mass/Vol] 85 mg/dL High 0-20 [facility] Comment on above: Order Comment: Speci men Type: URINE SPECIMENOrdering Facility: [facility] Address: [address] [place] [address] Performed By: #### 2 890-2 ####[facility] LABIA [id number] [place] [address] [place] T4 Free SerPl-mCncon 025 Free T4 [Mass/Vol] 0.9 ng/dL Normal 0.9-1.7 [facility] Comment on above: Order Comment: Speci men Type: BLOOD SPECIMENOrdering Facility: [facility] Address: [address] [place] [address] Performed By: #### 3 024-7, 3016-3 ####[facility] LABIA [id number] [address] [place] TSH SerPl-aCncon 05-30-2025 TSH Qn 3.610 m[IU]/L Normal 0.270-4.200 [facility] Comment on above: Order Comment: Speci men Type: BLOOD SPECIMENOrdering Facility: [facility] Address: [address] [place] [address] Performed By: #### 3 024-7, 3016-3 ####[facility] [id number] [place] [address] [place] URINALYSIS, DIPSTICK ONLYon 05-30-2025 Bilirubin Ql (U) Negative Negative [facility] Clarity (Unsp spec) Cloudy Abnormal Clear [facility] Color (U) Yellow Yellow [facility] Glucose Test strip (U) [Mass/Vol] Negative Negative [facility] Hemoglobin Ql (U) Negative Negative [facility] Interpretation and review of laboratory results Abnormal [facility] Ketones Ql (U) Negative Negative [facility] Leukocyte esterase Test strip Ql (U) Negative Negative [facility] Nitrite Ql (U) Negative Negative [facility] pH (U) 5.5 [pH] 5.0 - 8.0 [facility] Protein (U) [Mass/Vol] 2+ Abnormal Negative [facility] Specific gravity (U) [Rel density] 1.018 1.005 - 1.030 [facility] Urobilinogen Ql (U) 0.2 EU/dL 0.2-1.0 EU/dL [facility] Bilirubin Ql (U) Negative Normal Negative [facility] Comment on above: Order Comment: Speci men Type: URINE SPECIMENOrdering Facility: [facility] Address: [address] [place] [address] Performed By: #### U A ####[facility] LABCLIA [id number] [place] [address] [place] Clarity (Unsp spec) Cloudy Abnormal Clear [facility] Comment on above: Order Comment: Speci men Type: URINE SPECIMENOrdering Facility: [facility] Address: [address] [place] [address] Performed By: #### U A ####[facility] LABCLIA [id number] [place] [address] [place] Color (U) Yellow Normal Yellow [facility] Comment on above: Order Comment: Speci men Type: URINE SPECIMENOrdering Facility: [facility] Address: [address] [place] [address] Performed By: #### U A ####[facility] LABCLIA [id number] [place] [address] [place] Glucose Test strip (U) [Mass/Vol] Negative Normal Negative [facility] Comment on above: Order Comment: Speci men Type: URINE SPECIMENOrdering Facility: [facility] Address: [address] [place] [address] Performed By: #### U A ####[facility] LABCLIA [id number] [place] [address] [place] Hemoglobin Ql (U) Negative Normal Negative [facility] Comment on above: Order Comment: Speci men Type: URINE SPECIMENOrdering Facility: [facility] Address: [address] [place] [address] Performed By: #### U A ####[facility] LABCLIA [id number] [place] [address] [place] Ketones Ql (U) Negative Normal Negative [facility] Comment on above: Order Comment: Speci men Type: URINE SPECIMENOrdering Facility: [facility] Address: [address] [place] [address] Performed By: #### U A ####[facility] LABCLIA [id number] [place] [address] [place] Leukocyte esterase Test strip Ql (U) Negative Normal Negative [facility] Comment on above: Order Comment: Speci men Type: URINE SPECIMENOrdering Facility: [facility] Address: [address] [place] [address] Performed By: #### U A ####[facility] LABCLIA [id number] [place] [address] [place] Nitrite Ql (U) Negative Normal Negative [facility] Comment on above: Order Comment: Speci men Type: URINE SPECIMENOrdering Facility: [facility] Address: [address] [place] [address] Performed By: #### U A ####[facility] LABCLIA [id number] [place] [address] [place] pH (U) 5.5 [pH] Normal 5.0-8.0 [facility] Comment on above: Order Comment: Speci men Type: URINE SPECIMENOrdering Facility: [facility] Address: [address] [place] [address] Performed By: #### U A ####[facility] LABCLIA [id number] [place] [id number] [place] Protein (U) [Mass/Vol] 2+ Abnormal Negative [facility] Comment on above: Order Comment: Speci men Type: URINE SPECIMENOrdering Facility: [facility] Address: [address] [place] [address] Performed By: #### U A ####[facility] [id number] [place] [address] [place] Specific gravity (U) [Rel density] 1.018 Normal 1.005-1.030 [facility] Comment on above: Order Comment: Speci men Type: URINE SPECIMENOrdering Facility: [facility] Address: [address] [place] [address] Performed By: #### U A ####[facility] [id number] [address] [place] Urobilinogen Ql (U) 0.2 EU/dL Normal 0.2-1.0 EU/dL [facility] Comment on above: Order Comment: Speci men Type: URINE SPECIMENOrdering Facility: [facility] Address: [address] [place] [address] Performed By: #### U A ####[facility] [id number] [place] [address] [place] Glomerular filtration rate ( GFR) estimation in non- AmericanOrdered By: Felton Urbina on 05-27-2025 GFR/1.73 sq M.predicted among non-blacks MDRD (S/P/Bld) [Vol rate/Area] 30 mL/min/{1.73_m2} Low >=60 mL/min/1.73m 2 [facility] Laboratory - Chemistry and C hemistry - challengeOrdered By: Felton Urbina on 05-27-2025 Albumin [Mass/Vol] 3.2 g/dL Low 3.4-5.0 [facility] Calcium [Mass/Vol] 8.7 mg/dL 8.5-10.1 [facility] Chloride [Moles/Vol] 103 mmol/L 98-107 [facility] CO2 [Moles/Vol] 29.6 mmol/L 21.0-32.0 [facility] Creatinine [Mass/Vol] 2.20 mg/dL High 0.70-1.30 [facility] GFR/1.73 sq M.predicted MDRD (S/P/Bld) [Vol rate/Area] 37 mL/min/{1.73_m2} Low >=60 mL/min/1.73m 2 [facility] Glucose [Mass/Vol] 88 mg/dL 74-106 [facility] Potassium [Moles/Vol] 5.1 mmol/L 3.5-5.1 [facility] Sodium [Moles/Vol] 139 mmol/L 136-145 [facility] Urea nitrogen [Mass/Vol] 22.0 mg/dL High 7.0-18.0 [facility] Urea nitrogen/Creatinine [Mass ratio] 10.0 mg/mg [facility] No Panel InformationOrdered By: Felton Urbina on 05-27-2025 Phosphorus Level 3.7 mg/dL 2.6-4.7 [facility] Serum or plasma anion gap de terminationOrdered By: Felton Urbina on 05-27-2025 Anion gap [Moles/Vol] 11.5 mmol/L [facility] CNPNon 05-20-2025 CNPN Normal [facility] CBC W Auto Differential pane l (Bld)on 05-16-2025 Basophils (Bld) [#/Vol] 0.13 10*3/uL High <0.11 [facility] Comment on above: Order Comment: Speci men Type: BLOOD SPECIMENOrdering Facility: [facility] Address: [address] [place] [address] Performed By: #### 5 7021-8 ####[facility] LABCLIA [id number] [place] [address] Basophils/100 WBC (Bld) 1.1 % Normal C [facility] Comment on above: Order Comment: Speci men Type: BLOOD SPECIMENOrdering Facility: [facility] Address: [address] [place] [address] Performed By: #### 5 7021-8 ####[facility] LABCLIA [id number] [place] [address] Differential cell count method Nom (Bld) Auto Normal [facility] Comment on above: Order Comment: Speci men Type: BLOOD SPECIMENOrdering Facility: [facility] Address: [address] [place] [address] Performed By: #### 5 7021-8 ####[facility] LABCLIA [id number] [place] [address] Eosinophils (Bld) [#/Vol] 0.20 10*3/uL Normal <0.46 [facility] Comment on above: Order Comment: Speci men Type: BLOOD SPECIMENOrdering Facility: [facility] Address: [address] [place] [address] Performed By: #### 5 7021-8 ####[facility] LABCLIA [id number] [place] [address] Eosinophils/100 WBC (Bld) 1.8 % Normal [facility] Comment on above: Order Comment: Speci men Type: BLOOD SPECIMENOrdering Facility: [facility] Address: [address] [place] [address] Performed By: #### 5 7021-8 ####[facility] LABCLIA [id number] [place] [address] Erythrocyte distribution width (RBC) [Ratio] 18.8 % High 11.5-15.0 [facility] Comment on above: Order Comment: Speci men Type: BLOOD SPECIMENOrdering Facility: [facility] Address: [address] [place] [address] Performed By: #### 5 7021-8 ####[facility] LABIA [id number] [place] [address] Hematocrit (Bld) [Volume fraction] 37.2 % Low 39.0-51.0 [facility] Comment on above: Order Comment: Speci men Type: BLOOD SPECIMENOrdering Facility: [facility] Address: [address] [place] [address] Performed By: #### 5 7021-8 ####[facility] LABIA [id number] [place] [address] Hemoglobin (Bld) [Mass/Vol] 12.4 g/dL Low 13.0-17.0 [facility] Comment on above: Order Comment: Speci men Type: BLOOD SPECIMENOrdering Facility: [facility] Address: [address] [place] [address] Performed By: #### 5 7021-8 ####[facility] LABCLIA [id number] [place] [address] Immature granulocytes (Bld) [#/Vol] 0.05 10*3/uL Normal <0.10 [facility] Comment on above: Order Comment: Speci men Type: BLOOD SPECIMENOrdering Facility: [facility] Address: [address] [place] [address] Performed By: #### 5 7021-8 ####[facility] LABIA [id number] [place] [address] Immature granulocytes/100 WBC (Bld) 0.4 % Normal [facility] Comment on above: Order Comment: Speci men Type: BLOOD SPECIMENOrdering Facility: [facility] Address: [address] [place] [address] Performed By: #### 5 7021-8 ####[facility] LABCLIA [id number] [place] [address] Lymphocytes (Bld) [#/Vol] 1.58 10*3/uL Normal 1.00-4.00 [facility] Comment on above: Order Comment: Speci men Type: BLOOD SPECIMENOrdering Facility: [facility] Address: [address] [place] [address] Performed By: #### 5 7021-8 ####[facility] LABCLIA [id number] [place] [address] Lymphocytes/100 WBC (Bld) 13.9 % Normal [facility] Comment on above: Order Comment: Speci men Type: BLOOD SPECIMENOrdering Facility: [facility] Address: [address] [place] [address] Performed By: #### 5 7021-8 ####[facility] LABCLIA [id number] [place] [address] MCH (RBC) [Entitic mass] 26.7 pg Normal 26.0-34.0 [facility] Comment on above: Order Comment: Speci men Type: BLOOD SPECIMENOrdering Facility: [facility] Address: [address] [place] [address] Performed By: #### 5 7021-8 ####[facility] LABCLIA [id number] [place] [address] MCHC (RBC) [Mass/Vol] 33.3 g/dL Normal 30.5-36.0 [facility] Comment on above: Order Comment: Speci men Type: BLOOD SPECIMENOrdering Facility: [facility] Address: [address] [place] [address] Performed By: #### 5 7021-8 ####[facility] LABCLIA [id number] [place] [address] MCV (RBC) [Entitic vol] 80.0 fL Normal 80.0-100.0 [facility] Comment on above: Order Comment: Speci men Type: BLOOD SPECIMENOrdering Facility: [facility] Address: [address] [place] [address] Performed By: #### 5 7021-8 ####[facility] LABCLIA [id number] [place] [address] Monocytes (Bld) [#/Vol] 0.91 10*3/uL High <0.87 [facility] Comment on above: Order Comment: Speci men Type: BLOOD SPECIMENOrdering Facility: [facility] Address: [address] [place], [place] [address] Performed By: #### 5 7021-8 ####[facility] LABCLIA [id number] [place] [address] Monocytes/100 WBC (Bld) 8.0 % Normal C [facility] Comment on above: Order Comment: Speci men Type: BLOOD SPECIMENOrdering Facility: [facility] Address: [address] [place] [address] Performed By: #### 5 7021-8 ####[facility] LABCLIA [id number] [place] [address] Neutrophils (Bld) [#/Vol] 8.53 10*3/uL High 1.45-7.50 [facility] Comment on above: Order Comment: Speci men Type: BLOOD SPECIMENOrdering Facility: [facility] Address: [address] [place] [address] Performed By: #### 5 7021-8 ####[facility] LABCLIA [id number] [place] [address] Neutrophils/100 WBC (Bld) 74.8 % Normal [facility] Comment on above: Order Comment: Speci men Type: BLOOD SPECIMENOrdering Facility: [facility] Address: [address] [place] [address] Performed By: #### 5 7021-8 ####[facility] LABCLIA [id number] [place] [address] Nucleated RBC (Bld) [#/Vol] 10*3/uL Normal <0.01 [facility] Comment on above: Order Comment: Speci men Type: BLOOD SPECIMENOrdering Facility: [facility] Address: [address] [place] [address] Performed By: #### 5 7021-8 ####[facility] LABCLIA [id number] [place] [address] Nucleated RBC/100 WBC (Bld) [Ratio] 0.0 /100 WBC Normal [facility] Comment on above: Order Comment: Speci men Type: BLOOD SPECIMENOrdering Facility: [facility] Address: [address] [place] [address] Performed By: #### 5 7021-8 ####[facility] LABCLIA [id number] [place] [address] Platelet mean volume (Bld) [Entitic vol] 9.2 fL Normal 9.0-12.7 [facility] Comment on above: Order Comment: Speci men Type: BLOOD SPECIMENOrdering Facility: [facility] Address: [address] [place] [address] Performed By: #### 5 7021-8 ####[facility] LABCLIA [id number] [place] [address] Platelets (Bld) [#/Vol] 256 10*3/uL Normal 150-400 [facility] Comment on above: Order Comment: Speci men Type: BLOOD SPECIMENOrdering Facility: [facility] Address: [address] [place] [address] Performed By: #### 5 7021-8 ####[facility] LABIA [id number] [place] [address] RBC (Bld) [#/Vol] 4.65 10*6/uL Normal 4.20-6.00 [facility] Comment on above: Order Comment: Speci men Type: BLOOD SPECIMENOrdering Facility: [facility] Address: [address] [place] [address] Performed By: #### 5 7021-8 ####[facility] LABCLIA [id number] [place] [address] WBC (Bld) [#/Vol] 11.40 10*3/uL High 3.70-11.00 [facility] Comment on above: Order Comment: Speci men Type: BLOOD SPECIMENOrdering Facility: [facility] Address: [address] [place] [address] Performed By: #### 5 7021-8 ####[facility] LABCLIA [id number] [place] [address] CNOVSPon 05-16-2025 CNOVSP Normal [facility] metabolic 2000 panelon 05-16-2025 Albumin [Mass/Vol] 4.3 g/dL Normal 3.9-4.9 [facility] Comment on above: Order Comment: Speci men Type: BLOOD SPECIMENOrdering Facility: [facility] Address: [address] [place] [address] Performed By: #### 2 4323-8 ####[facility] LABCLIA [id number] [place] [address] ALP [Catalytic activity/Vol] 91 U/L Normal 38-113 [facility] Comment on above: Order Comment: Speci men Type: BLOOD SPECIMENOrdering Facility: [facility] Address: [address] [place] [address] Performed By: #### 2 4323-8 ####[facility] LABCLIA [id number] [place] [address] ALT [Catalytic activity/Vol] 11 U/L Normal 10-54 [facility] Comment on above: Order Comment: Speci men Type: BLOOD SPECIMENOrdering Facility: [facility] Address: [address] [place] [address] Performed By: #### 2 4323-8 ####[facility] LABCLIA [id number] [place] [address] Anion gap [Moles/Vol] 12 mmol/L Normal 8-15 [facility] Comment on above: Order Comment: Speci men Type: BLOOD SPECIMENOrdering Facility: [facility] Address: [address] [place] [address] Performed By: #### 2 4323-8 ####[facility] LABCLIA [id number] [place] [address] AST [Catalytic activity/Vol] 15 U/L Normal 14-40 [facility] Comment on above: Order Comment: Speci men Type: BLOOD SPECIMENOrdering Facility: [facility] Address: [address] [place] [address] Performed By: #### 2 4323-8 ####[facility] LABCLIA [id number] [place] [address] Bilirubin [Mass/Vol] 0.2 mg/dL Normal 0.2-1.3 [facility] Comment on above: Order Comment: Speci men Type: BLOOD SPECIMENOrdering Facility: [facility] Address: [address] [place] [address] Performed By: #### 2 4323-8 ####[facility] LABCLIA [id number] [place] [address] Calcium [Mass/Vol] 9.3 mg/dL Normal 8.5-10.2 [facility] Comment on above: Order Comment: Speci men Type: BLOOD SPECIMENOrdering Facility: [facility] Address: [address] [place] [address] Performed By: #### 2 4323-8 ####[facility] LABCLIA [id number] [place] [address] Chloride [Moles/Vol] 99 mmol/L Normal 98-107 [facility] Comment on above: Order Comment: Speci men Type: BLOOD SPECIMENOrdering Facility: [facility] Address: [address] [place] [address] Performed By: #### 2 4323-8 ####[facility] LABCLIA [id number] [place] [address] CO2 [Moles/Vol] 23 mmol/L Normal 22-30 [facility] Comment on above: Order Comment: Speci men Type: BLOOD SPECIMENOrdering Facility: [facility] Address: [address] [place], [place] [address] Performed By: #### 2 4323-8 ####[facility] LABCLIA [id number] [place] [address] Creatinine [Mass/Vol] 2.97 mg/dL High 0.73-1.22 [facility] Comment on above: Order Comment: Miguelina thomas Type: BLOOD SPECIMENOrdering Facility: [facility] Address: [address] [place] [address] Performed By: #### 2 4323-8 ####[facility] LABCLIA [id number] [place] [address] eGFRcr SerPlBld CKD-EPI 2020 22 mL/min/1.73m??? Low >=60 [facility] Comment on above: Order Comment: Miguelina thomas Type: BLOOD SPECIMENOrdering Facility: [facility] Address: [address] [place] [address] Result Comment: Samantha mated Glomerular Filtration Rate [...] actual GFR. Performed By: #### 2 4323-8 ####[facility] LABCLIA [id number] [place] [address] Glucose [Mass/Vol] 102 mg/dL High 74-99 [facility] Comment on above: Order Comment: Miguelina thomas Type: BLOOD SPECIMENOrdering Facility: [facility] Address: [address] [place], [place] [address] Result Comment: The [place] Diabetes Association (ADA) provides guidance for cutoff values for fasting glucose and random glucose. The ADA defines fasting as no caloric intake for at least 8 hours. Fasting plasma glucose results between 100 to 125 mg/dL indicate increased risk for diabetes (prediabetes).Fasting plasma glucose results greater than or equal to 126 mg/dL meet the criteria for diagnosis of diabetes. In the absence of unequivocal hyperglycemia, results should be confirmed by repeat testing. In a patient with classic symptoms of hyperglycemia or hyperglycemic crisis, random plasma glucose results greater than or equal to 200 mg/dL meet the criteria for diagnosis of diabetes.Reference: Standards of Medical Care in Diabetes 2016, [place] [employer]. Diabetes Care. 2016.39(Suppl 1). Performed By: #### 2 4323-8 ####[facility] LABCLIA [id number] [place] [address] Potassium [Moles/Vol] 4.9 mmol/L Normal 3.7-5.1 [facility] Comment on above: Order Comment: Speci men Type: BLOOD SPECIMENOrdering Facility: [facility] Address: [address] [place] [address] Performed By: #### 2 4323-8 ####[facility] LABCLIA [id number] [place] [address] Protein [Mass/Vol] 7.5 g/dL Normal 6.3-8.0 [facility] Comment on above: Order Comment: Speci men Type: BLOOD SPECIMENOrdering Facility: [facility] Address: [address] [place] [address] Performed By: #### 2 4323-8 ####[facility] LABCLIA [id number] [place] [address] Sodium [Moles/Vol] 134 mmol/L Low 136-144 [facility] Comment on above: Order Comment: Speci men Type: BLOOD SPECIMENOrdering Facility: [facility] Address: [address] [place] [address] Performed By: #### 2 4323-8 ####[facility] LABCLIA [id number] [place] [address] Urea nitrogen [Mass/Vol] 51 mg/dL High 9-24 [facility] Comment on above: Order Comment: Speci men Type: BLOOD SPECIMENOrdering Facility: [facility] Address: [address] [place] [address] Performed By: #### 2 4323-8 ####[facility] LABCLIA [id number] [place] [address] CNPNon 05-12-2025 CNPN Normal [facility] CBC W Auto Differential pane l (Bld)on 05-09-2025 Basophils (Bld) [#/Vol] 0.09 10*3/uL Normal <0.11 [facility] Comment on above: Order Comment: Speci men Type: BLOOD SPECIMENOrdering Facility: [facility] Address: [address] [place] [address] Performed By: #### 5 7021-8 ####[facility] LABCLIA [id number] [place] [address] Basophils/100 WBC (Bld) 0.9 % Normal [facility] Comment on above: Order Comment: Speci men Type: BLOOD SPECIMENOrdering Facility: [facility] Address: [address] [place] [address] Performed By: #### 5 7021-8 ####[facility] LABCLIA [id number] [place] [address] Differential cell count method Nom (Bld) Auto Normal [facility] Comment on above: Order Comment: Speci men Type: BLOOD SPECIMENOrdering Facility: [facility] Address: [address] [place] [address] Performed By: #### 5 7021-8 ####[facility] LABCLIA [id number] [place] [address] Eosinophils (Bld) [#/Vol] 0.17 10*3/uL Normal <0.46 [facility] Comment on above: Order Comment: Speci men Type: BLOOD SPECIMENOrdering Facility: [facility] Address: [address] [place] [address] Performed By: #### 5 7021-8 ####[facility] LABCLIA [id number] [place] [address] Eosinophils/100 WBC (Bld) 1.6 % Normal [facility] Comment on above: Order Comment: Speci men Type: BLOOD SPECIMENOrdering Facility: [facility] Address: [address] [place] [address] Performed By: #### 5 7021-8 ####[facility] LABCLIA [id number] [place] [address] Erythrocyte distribution width (RBC) [Ratio] 19.9 % High 11.5-15.0 [facility] Comment on above: Order Comment: Speci men Type: BLOOD SPECIMENOrdering Facility: [facility] Address: [address] [place] [address] Performed By: #### 5 7021-8 ####[facility] LABIA [id number] [place] [address] Hematocrit (Bld) [Volume fraction] 34.3 % Low 39.0-51.0 [facility] Comment on above: Order Comment: Speci men Type: BLOOD SPECIMENOrdering Facility: [facility] Address: [address] [place] [address] Performed By: #### 5 7021-8 ####[facility] LABIA [id number] [place] [address] Hemoglobin (Bld) [Mass/Vol] 11.6 g/dL Low 13.0-17.0 [facility] Comment on above: Order Comment: Speci men Type: BLOOD SPECIMENOrdering Facility: [facility] Address: [address] [place] [address] Performed By: #### 5 7021-8 ####[facility] LABIA [id number] [place] [address] Immature granulocytes (Bld) [#/Vol] 0.04 10*3/uL Normal <0.10 [facility] Comment on above: Order Comment: Speci men Type: BLOOD SPECIMENOrdering Facility: [facility] Address: [address] [place] [address] Performed By: #### 5 7021-8 ####[facility] LABIA [id number] [place] [address] Immature granulocytes/100 WBC (Bld) 0.4 % Normal [facility] Comment on above: Order Comment: Speci men Type: BLOOD SPECIMENOrdering Facility: [facility] Address: [address] [place] [address] Performed By: #### 5 7021-8 ####[facility] LABCLIA [id number] [place] [address] Lymphocytes (Bld) [#/Vol] 1.82 10*3/uL Normal 1.00-4.00 [facility] Comment on above: Order Comment: Speci men Type: BLOOD SPECIMENOrdering Facility: [facility] Address: [address] [place] [address] Performed By: #### 5 7021-8 ####[facility] LABCLIA [id number] [place] [address] Lymphocytes/100 WBC (Bld) 17.3 % Normal [facility] Comment on above: Order Comment: Speci men Type: BLOOD SPECIMENOrdering Facility: [facility] Address: [address] [place] [address] Performed By: #### 5 7021-8 ####[facility] LABCLIA [id number] [place] [address] MCH (RBC) [Entitic mass] 26.8 pg Normal 26.0-34.0 [facility] Comment on above: Order Comment: Speci men Type: BLOOD SPECIMENOrdering Facility: [facility] Address: [address] [place] [address] Performed By: #### 5 7021-8 ####[facility] LABCLIA [id number] [place] [address] MCHC (RBC) [Mass/Vol] 33.8 g/dL Normal 30.5-36.0 [facility] Comment on above: Order Comment: Speci men Type: BLOOD SPECIMENOrdering Facility: [facility] Address: [address] [place] [address] Performed By: #### 5 7021-8 ####[facility] LABCLIA [id number] [place] [address] MCV (RBC) [Entitic vol] 79.2 fL Low 80.0-100.0 C [facility] Comment on above: Order Comment: Speci men Type: BLOOD SPECIMENOrdering Facility: [facility] Address: [address] [place] [address] Performed By: #### 5 7021-8 ####[facility] LABCLIA [id number] [place] [address] Monocytes (Bld) [#/Vol] 0.87 10*3/uL High <0.87 [facility] Comment on above: Order Comment: Speci men Type: BLOOD SPECIMENOrdering Facility: [facility] Address: [address] [place] [address] Performed By: #### 5 7021-8 ####[facility] LABCLIA [id number] [place] [address] Monocytes/100 WBC (Bld) 8.3 % Normal C [facility] Comment on above: Order Comment: Speci men Type: BLOOD SPECIMENOrdering Facility: [facility] Address: [address] [place] [address] Performed By: #### 5 7021-8 ####[facility] LABCLIA [id number] [place] [address] Neutrophils (Bld) [#/Vol] 7.54 10*3/uL High 1.45-7.50 [facility] Comment on above: Order Comment: Speci men Type: BLOOD SPECIMENOrdering Facility: [facility] Address: [address] [place] [address] Performed By: #### 5 7021-8 ####[facility] LABCLIA [id number] [place] [address] Neutrophils/100 WBC (Bld) 71.5 % Normal [facility] Comment on above: Order Comment: Speci men Type: BLOOD SPECIMENOrdering Facility: [facility] Address: [address] [place] [address] Performed By: #### 5 7021-8 ####[facility] LABCLIA [id number] [place] [address] Nucleated RBC (Bld) [#/Vol] 10*3/uL Normal <0.01 [facility] Comment on above: Order Comment: Speci men Type: BLOOD SPECIMENOrdering Facility: [facility] Address: [address] [place] [address] Performed By: #### 5 7021-8 ####[facility] LABCLIA [id number] [place] [address] Nucleated RBC/100 WBC (Bld) [Ratio] 0.0 /100 WBC Normal [facility] Comment on above: Order Comment: Speci men Type: BLOOD SPECIMENOrdering Facility: [facility] Address: [address] [place] [address] Performed By: #### 5 7021-8 ####[facility] LABCLIA [id number] [place] [address] Platelet mean volume (Bld) [Entitic vol] 9.2 fL Normal 9.0-12.7 [facility] Comment on above: Order Comment: Speci men Type: BLOOD SPECIMENOrdering Facility: [facility] Address: [address] [place] [address] Performed By: #### 5 7021-8 ####[facility] LABCLIA [id number] [place] [address] Platelets (Bld) [#/Vol] 227 10*3/uL Normal 150-400 [facility] Comment on above: Order Comment: Speci men Type: BLOOD SPECIMENOrdering Facility: [facility] Address: [address] [place] [address] Performed By: #### 5 7021-8 ####[facility] LABCLIA [id number] [place] [address] RBC (Bld) [#/Vol] 4.33 10*6/uL Normal 4.20-6.00 [facility] Comment on above: Order Comment: Speci men Type: BLOOD SPECIMENOrdering Facility: [facility] Address: [address] [place] [address] Performed By: #### 5 7021-8 ####[facility] LABCLIA [id number] [place] [address] WBC (Bld) [#/Vol] 10.53 10*3/uL Normal 3.70-11.00 [facility] Comment on above: Order Comment: Speci men Type: BLOOD SPECIMENOrdering Facility: [facility] Address: [address] [place] [address] Performed By: #### 5 7021-8 ####[facility] LABIA [id number] [place] [address] CNOVSPon 05-09-2025 CNOVSP Normal [facility] Comprehensive metabolic 2000 panelon 05-09-2025 Albumin [Mass/Vol] 4.2 g/dL Normal 3.9-4.9 [facility] Comment on above: Order Comment: Speci men Type: BLOOD SPECIMENOrdering Facility: [facility] Address: [address] [place] [address] Performed By: #### 1 9123-9, 33420-3 ####[facility] LABCLIA [id number] [place] [address] ALP [Catalytic activity/Vol] 89 U/L Normal 38-113 [facility] Comment on above: Order Comment: Speci men Type: BLOOD SPECIMENOrdering Facility: [facility] Address: [address] [place] [address] Performed By: #### 1 9123-9, 87882-0 ####[facility] LABCLIA [id number] [place] [address] ALT [Catalytic activity/Vol] 10 U/L Normal 10-54 [facility] Comment on above: Order Comment: Speci men Type: BLOOD SPECIMENOrdering Facility: [facility] Address: [address] [place], [place] [address] Performed By: #### 1 9123-9, 22673-1 ####[facility] LABCLIA [id number] [place] [address] Anion gap [Moles/Vol] 10 mmol/L Normal 8-15 [facility] Comment on above: Order Comment: Speci men Type: BLOOD SPECIMENOrdering Facility: [facility] Address: [address] [place] [address] Performed By: #### 1 9123-9, 49708-3 ####[facility] LABCLIA [id number] [place] [address] AST [Catalytic activity/Vol] 13 U/L Low 14-40 [facility] Comment on above: Order Comment: Speci men Type: BLOOD SPECIMENOrdering Facility: [facility] Address: [address] [place] [address] Performed By: #### 1 9123-9, 07900-6 ####[facility] LABCLIA [id number] [place] [address] Bilirubin [Mass/Vol] 0.3 mg/dL Normal 0.2-1.3 [facility] Comment on above: Order Comment: Speci men Type: BLOOD SPECIMENOrdering Facility: [facility] Address: [address] [place], [place] [address] Performed By: #### 1 9123-9, 11184-2 ####[facility] LABCLIA [id number] [place] [address] Calcium [Mass/Vol] 9.6 mg/dL Normal 8.5-10.2 [facility] Comment on above: Order Comment: Speci men Type: BLOOD SPECIMENOrdering Facility: [facility] Address: [address] [place], [place] [address] Performed By: #### 1 9123-9, 19848-9 ####[facility] LABCLIA [id number] [place] [address] Chloride [Moles/Vol] 105 mmol/L Normal 98-107 [facility] Comment on above: Order Comment: Speci men Type: BLOOD SPECIMENOrdering Facility: [facility] Address: [address] [place] [address] Performed By: #### 1 9123-9, 68263-0 ####[facility] LABCLIA [id number] [place] [address] CO2 [Moles/Vol] 20 mmol/L Low 22-30 [facility] Comment on above: Order Comment: Speci men Type: BLOOD SPECIMENOrdering Facility: [facility] Address: [address] [place] [address] Performed By: #### 1 9123-9, 50664-6 ####[facility] LABCLIA [id number] [place] [address] Creatinine [Mass/Vol] 2.47 mg/dL High 0.73-1.22 [facility] Comment on above: Order Comment: Speci men Type: BLOOD SPECIMENOrdering Facility: [facility] Address: [address] [place] [address] Performed By: #### 1 9123-9, 84450-5 ####[facility] LABCLIA [id number] [place] [address] eGFRcr SerPlBld CKD-EPI 2020 28 mL/min/1.73m??? Low >=60 [facility] Comment on above: Order Comment: Speci men Type: BLOOD SPECIMENOrdering Facility: [facility] Address: [address] [place] [address] Result Comment: Samantha mated Glomerular Filtration Rate [...] reflect actual GFR. Performed By: #### 1 23-9, ####[facility] LABCLIA [id number] [place] [address] Glucose [Mass/Vol] 91 mg/dL Normal 74-99 [facility] Comment on above: Order Comment: Speci men Type: BLOOD SPECIMENOrdering Facility: [facility] Address: [address] [place] [address] Result Comment: The [place] [employer] (ADA) provides guidance for cutoff values for fasting glucose and random glucose. The ADA defines fasting as no caloric intake for at least 8 hours. Fasting plasma glucose results between 100 to 125 mg/dL indicate increased risk for diabetes (prediabetes).Fasting plasma glucose results greater than or equal to 126 mg/dL meet the criteria for diagnosis of diabetes. In the absence of unequivocal hyperglycemia, results should be confirmed by repeat testing. In a patient with classic symptoms of hyperglycemia or hyperglycemic crisis, random plasma glucose results greater than or equal to 200 mg/dL meet the criteria for diagnosis of diabetes.Reference: Standards of Medical Care in Diabetes 2016, [place] [employer]. Diabetes Care. 2016.39(Suppl 1). Performed By: #### 1 9123-9, ####[facility] [facility] LABCLIA [id number] [place] [address] Potassium [Moles/Vol] 5.4 mmol/L High 3.7-5.1 [facility] Comment on above: Order Comment: Speci men Type: BLOOD SPECIMENOrdering Facility: [facility] Address: [address] [place] [address] Performed By: #### 1 9123-9, ####[facility] LABCLIA [id number] [place] [address] Protein [Mass/Vol] 7.6 g/dL Normal 6.3-8.0 [facility] Comment on above: Order Comment: Speci men Type: BLOOD SPECIMENOrdering Facility: [facility] Address: [address] [place] [address] Performed By: #### 1 9123-9, 96435-7 ####[facility] LABCLIA [id number] [place] [address] Sodium [Moles/Vol] 135 mmol/L Low 136-144 [facility] Comment on above: Order Comment: Speci men Type: BLOOD SPECIMENOrdering Facility: [facility] Address: [address] [place] [address] Performed By: #### 1 9123-9, 88252-2 ####[facility] LABIA [id number] [place] [address] Urea nitrogen [Mass/Vol] 34 mg/dL High 9-24 [facility] Comment on above: Order Comment: Speci men Type: BLOOD SPECIMENOrdering Facility: [facility] Address: [address] [place] [address] Performed By: #### 1 9123-9, 01824-9 ####[facility] LABIA [id number] [place] [address] Magnesium SerPl-mCncon 05-09 Magnesium [Mass/Vol] 1.8 mg/dL Normal 1.7-2.3 [facility] Comment on above: Order Comment: Speci men Type: BLOOD SPECIMENOrdering Facility: [facility] Address: [address] [place] [address] Performed By: #### 1 9123-9, 33134-5 ####[facility] LABIA [id number] [place] [address] Urinalysis complete panel (U )on 05-09-2025 Bacteria LM.HPF (Urine sed) [#/Area] Negative Normal Negative [facility] Comment on above: Order Comment: Speci men Type: URINE SPECIMENOrdering Facility: [facility] Address: [address] [place] [address] Performed By: #### 2 4356-8 ####[facility] LABCLIA [id number] [place] [address] [place] Bilirubin Ql (U) Negative Normal Negative [facility] Comment on above: Order Comment: Speci men Type: URINE SPECIMENOrdering Facility: [facility] Address: [address] [place] [address] Performed By: #### 2 4356-8 ####[facility] LABCLIA [id number] [place] [address] [place] Clarity (Unsp spec) Clear Normal Clear [facility] Comment on above: Order Comment: Speci men Type: URINE SPECIMENOrdering Facility: [facility] Address: [address] [place] [address] Performed By: #### 2 4356-8 ####[facility] LABCLIA [id number] [place] [address] [place] [facility] Color (U) Yellow Normal Yellow [facility] Comment on above: Order Comment: Speci men Type: URINE SPECIMENOrdering Facility: [facility] Address: [address] [place] [address] Performed By: #### 2 4356-8 ####[facility] LABCLIA [id number] [place] [address] [place] Epithelial cells LM.HPF (Urine sed) [#/Area] None Seen Normal [facility] Comment on above: Order Comment: Speci men Type: URINE SPECIMENOrdering Facility: [facility] Address: [address] [place], [place] [address] Performed By: #### 2 4356-8 ####[facility] LABCLIA [id number] [place] [id number] [place] Glucose Test strip (U) [Mass/Vol] Negative Normal Negative [facility] Comment on above: Order Comment: Speci men Type: URINE SPECIMENOrdering Facility: [facility] Address: [address] [place] [address] Performed By: #### 2 4356-8 ####[facility] LABCLIA [id number] [place] [address] [place] Hemoglobin Ql (U) Negative Normal Negative [facility] Comment on above: Order Comment: Speci men Type: URINE SPECIMENOrdering Facility: [facility] Address: [address] [place] [address] Performed By: #### 2 4356-8 ####[facility] LABCLIA [id number] [place] [address] [place] Hyaline casts (Urine sed) [#/Area] 0 /[LPF] Normal 0 /LPF [facility] Comment on above: Order Comment: Speci men Type: URINE SPECIMENOrdering Facility: [facility] Address: [address] [place] [address] Performed By: #### 2 4356-8 ####[facility] LABCLIA [id number] [place] [address] [place] Ketones Ql (U) Negative Normal Negative [facility] Comment on above: Order Comment: Speci men Type: URINE SPECIMENOrdering Facility: [facility] Address: [address] [place] [address] Performed By: #### 2 4356-8 ####[facility] LABCLIA [id number] [place] [address] [place] Leukocyte esterase Test strip Ql (U) Negative Normal Negative [facility] Comment on above: Order Comment: Speci men Type: URINE SPECIMENOrdering Facility: [facility] Address: [address] [place] [address] Performed By: #### 2 4356-8 ####[facility] LABCLIA [id number] [place] [address] [place] Nitrite Ql (U) Negative Normal Negative [facility] Comment on above: Order Comment: Speci men Type: URINE SPECIMENOrdering Facility: [facility] Address: [address] [place] [address] Performed By: #### 2 4356-8 ####[facility] LABIA [id number] [place] [address] [place] pH (U) 6.0 [pH] Normal 5.0-8.0 [facility] Comment on above: Order Comment: Speci men Type: URINE SPECIMENOrdering Facility: [facility] Address: [address] [place] [address] Performed By: #### 2 4356-8 ####[facility] LABIA [id number] [place] [address] [place] Protein (U) [Mass/Vol] 1+ Abnormal Negative [facility] Comment on above: Order Comment: Speci men Type: URINE SPECIMENOrdering Facility: [facility] Address: [address] [place] [address] Performed By: #### 2 4356-8 ####[facility] LABIA [id number] [place] [address] [place] RBC LM.HPF (Urine sed) [#/Area] 0-2 /HPF Normal 0-2 /HPF [facility] Comment on above: Order Comment: Speci men Type: URINE SPECIMENOrdering Facility: [facility] Address: [address] [place] [address] Performed By: #### 2 4356-8 ####[facility] LABIA [id number] [place] [id number] [place] Specific gravity (U) [Rel density] 1.017 Normal 1.005-1.030 [facility] Comment on above: Order Comment: Speci men Type: URINE SPECIMENOrdering Facility: [facility] Address: [address] [place] [address] Performed By: #### 2 4356-8 ####[facility] LABIA [id number] [place] [address] [place] Urobilinogen Ql (U) 0.2 EU/dL Normal 0.2-1.0 EU/dL [facility] Comment on above: Order Comment: Speci men Type: URINE SPECIMENOrdering Facility: [facility] Address: [address] [place] [address] Performed By: #### 2 4356-8 ####[facility] LABIA [id number] [place] [address] [place] WBC LM.HPF (Urine sed) [#/Area] 0-5 /HPF Normal 0-5 /HPF [facility] Comment on above: Order Comment: Speci men Type: URINE SPECIMENOrdering Facility: [facility] Address: [address] [place] [address] Performed By: #### 2 4356-8 ####[facility] LABIA [id number] [place] [address] [place] CNPNon 04-21-2025 CNPN Normal [facility] CBC W Auto Differential pane l (Bld)on 04-18-2025 Basophils (Bld) [#/Vol] 0.04 10*3/uL [facility] Basophils/100 WBC (Bld) 0.4 % [facility] Differential cell count method Nom (Bld) Auto [facility] Eosinophils (Bld) [#/Vol] 0.14 10*3/uL [facility] Eosinophils/100 WBC (Bld) 1.4 % [facility] Erythrocyte distribution width (RBC) [Ratio] 20 % High 11.5 - 15.0 % [facility] Hematocrit (Bld) [Volume fraction] 33.6 % Low 39.0 - 51.0 % [facility] Hemoglobin (Bld) [Mass/Vol] 10.7 g/dL Low 13.0 - 17.0 g/dL [facility] Immature granulocytes (Bld) [#/Vol] 0.11 10*3/uL High [facility] Immature granulocytes/100 WBC (Bld) 1.1 % [facility] Interpretation and review of laboratory results Abnormal [facility] Lymphocytes (Bld) [#/Vol] 1.53 10*3/uL [facility] Lymphocytes/100 WBC (Bld) 15.5 % [facility] MCH (RBC) [Entitic mass] 25.7 pg Low 26.0 - 34.0 pg [facility] MCHC (RBC) [Mass/Vol] 31.8 g/dL 30.5 - 36.0 g/dL [facility] MCV (RBC) [Entitic vol] 80.6 fL 80.0 - 100.0 fL [facility] Monocytes (Bld) [#/Vol] 0.52 10*3/uL [facility] Monocytes/100 WBC (Bld) 5.3 % C [facility] Neutrophils (Bld) [#/Vol] 7.55 10*3/uL High [facility] Neutrophils/100 WBC (Bld) 76.3 % [facility] Nucleated RBC (Bld) [#/Vol] NINF [facility] Nucleated RBC/100 WBC (Bld) [Ratio] 0 % /100 WBC [facility] Platelet mean volume (Bld) [Entitic vol] 9.2 fL 9.0 - 12.7 fL [facility] Platelets (Bld) [#/Vol] 206 10*3/uL [facility] RBC (Bld) [#/Vol] 4.17 10*6/uL Low 4.20 - 6.0 0 m/uL [facility] WBC (Bld) [#/Vol] 9.89 10*3/uL [facility] Basophils (Bld) [#/Vol] 0.04 10*3/uL Normal <0.11 [facility] Comment on above: Order Comment: Speci men Type: BLOOD SPECIMENOrdering Facility: [facility] Address: [address] [place] [address] Performed By: #### 5 7021-8 ####[facility] LABCLIA [id number] [place] [address] Basophils/100 WBC (Bld) 0.4 % Normal C [facility] Comment on above: Order Comment: Speci men Type: BLOOD SPECIMENOrdering Facility: [facility] Address: [address] [place] [address] Performed By: #### 5 7021-8 ####[facility] LABCLIA [id number] [place] [address] Differential cell count method Nom (Bld) Auto Normal [facility] Comment on above: Order Comment: Speci men Type: BLOOD SPECIMENOrdering Facility: [facility] Address: [address] [place] [address] Performed By: #### 5 7021-8 ####[facility] LABCLIA [id number] [place] [address] Eosinophils (Bld) [#/Vol] 0.14 10*3/uL Normal <0.46 [facility] Comment on above: Order Comment: Speci men Type: BLOOD SPECIMENOrdering Facility: [facility] Address: [address] [place] [address] Performed By: #### 5 7021-8 ####[facility] LABCLIA [id number] [place] [address] Eosinophils/100 WBC (Bld) 1.4 % Normal [facility] Comment on above: Order Comment: Speci men Type: BLOOD SPECIMENOrdering Facility: [facility] Address: [address] [place] [address] Performed By: #### 5 7021-8 ####[facility] LABCLIA [id number] [place] [address] Erythrocyte distribution width (RBC) [Ratio] 20.0 % High 11.5-15.0 [facility] Comment on above: Order Comment: Speci men Type: BLOOD SPECIMENOrdering Facility: [facility] Address: [address] [place] [address] Performed By: #### 5 7021-8 ####[facility] LABCLIA [id number] [place] [address] Hematocrit (Bld) [Volume fraction] 33.6 % Low 39.0-51.0 [facility] Comment on above: Order Comment: Speci men Type: BLOOD SPECIMENOrdering Facility: [facility] Address: [address] [place] [address] Performed By: #### 5 7021-8 ####[facility] LABCLIA [id number] [place] [address] Hemoglobin (Bld) [Mass/Vol] 10.7 g/dL Low 13.0-17.0 [facility] Comment on above: Order Comment: Speci men Type: BLOOD SPECIMENOrdering Facility: [facility] Address: [address] [place] [address] Performed By: #### 5 7021-8 ####[facility] LABCLIA [id number] [place] [address] Immature granulocytes (Bld) [#/Vol] 0.11 10*3/uL High <0.10 [facility] Comment on above: Order Comment: Speci men Type: BLOOD SPECIMENOrdering Facility: [facility] Address: [address] [place] [address] Performed By: #### 5 7021-8 ####[facility] LABCLIA [id number] [place] [address] Immature granulocytes/100 WBC (Bld) 1.1 % Normal [facility] Comment on above: Order Comment: Speci men Type: BLOOD SPECIMENOrdering Facility: [facility] Address: [address] [place] [address] Performed By: #### 5 7021-8 ####[facility] LABCLIA [id number] [place] [address] Lymphocytes (Bld) [#/Vol] 1.53 10*3/uL Normal 1.00-4.00 [facility] Comment on above: Order Comment: Speci men Type: BLOOD SPECIMENOrdering Facility: [facility] Address: [address] [place] [address] Performed By: #### 5 7021-8 ####[facility] LABCLIA [id number] [place] [address] Lymphocytes/100 WBC (Bld) 15.5 % Normal [facility] Comment on above: Order Comment: Speci men Type: BLOOD SPECIMENOrdering Facility: [facility] Address: [address] [place] [address] Performed By: #### 5 7021-8 ####[facility] LABCLIA [id number] [place] [address] MCH (RBC) [Entitic mass] 25.7 pg Low 26.0-34.0 [facility] Comment on above: Order Comment: Speci men Type: BLOOD SPECIMENOrdering Facility: [facility] Address: [address] [place] [address] Performed By: #### 5 7021-8 ####[facility] LABCLIA [id number] [place] [address] MCHC (RBC) [Mass/Vol] 31.8 g/dL Normal 30.5-36.0 [facility] Comment on above: Order Comment: Speci men Type: BLOOD SPECIMENOrdering Facility: [facility] Address: [address] [place] [address] Performed By: #### 5 7021-8 ####[facility] LABCLIA [id number] [place] [address] MCV (RBC) [Entitic vol] 80.6 fL Normal 80.0-100.0 C [facility] Comment on above: Order Comment: Speci men Type: BLOOD SPECIMENOrdering Facility: [facility] Address: [address] [place] [address] Performed By: #### 5 7021-8 ####[facility] LABIA [id number] [place] [address] Monocytes (Bld) [#/Vol] 0.52 10*3/uL Normal <0.87 [facility] Comment on above: Order Comment: Speci men Type: BLOOD SPECIMENOrdering Facility: [facility] Address: [address] [place] [address] Performed By: #### 5 7021-8 ####[facility] LABCLIA [id number] [place] [address] Monocytes/100 WBC (Bld) 5.3 % Normal [facility] Comment on above: Order Comment: Speci men Type: BLOOD SPECIMENOrdering Facility: [facility] Address: [address] [place] [address] Performed By: #### 5 7021-8 ####[facility] LABCLIA [id number] [place] [address] Neutrophils (Bld) [#/Vol] 7.55 10*3/uL High 1.45-7.50 [facility] Comment on above: Order Comment: Speci men Type: BLOOD SPECIMENOrdering Facility: [facility] Address: [address] [place] [address] Performed By: #### 5 7021-8 ####[facility] LABCLIA [id number] [place] [address] Neutrophils/100 WBC (Bld) 76.3 % Normal [facility] Comment on above: Order Comment: Speci men Type: BLOOD SPECIMENOrdering Facility: [facility] Address: [address] [place] [address] Performed By: #### 5 7021-8 ####[facility] LABCLIA [id number] [place] [address] Nucleated RBC (Bld) [#/Vol] 10*3/uL Normal <0.01 [facility] Comment on above: Order Comment: Speci men Type: BLOOD SPECIMENOrdering Facility: [facility] Address: [address] [place] [address] Performed By: #### 5 7021-8 ####[facility] LABCLIA [id number] [place] [address] Nucleated RBC/100 WBC (Bld) [Ratio] 0.0 /100 WBC Normal [facility] Comment on above: Order Comment: Speci men Type: BLOOD SPECIMENOrdering Facility: [facility] Address: [address] [place] [address] Performed By: #### 5 7021-8 ####[facility] LABCLIA [id number] [place] [address] Platelet mean volume (Bld) [Entitic vol] 9.2 fL Normal 9.0-12.7 [facility] Comment on above: Order Comment: Speci men Type: BLOOD SPECIMENOrdering Facility: [facility] Address: [address] [place] [address] Performed By: #### 5 7021-8 ####[facility] LABCLIA [id number] [place] [address] Platelets (Bld) [#/Vol] 206 10*3/uL Normal 150-400 [facility] Comment on above: Order Comment: Speci men Type: BLOOD SPECIMENOrdering Facility: [facility] Address: [address] [place] [address] Performed By: #### 5 7021-8 ####[facility] LABCLIA [id number] [place] [address] RBC (Bld) [#/Vol] 4.17 10*6/uL Low 4.20-6.00 [facility] Comment on above: Order Comment: Speci men Type: BLOOD SPECIMENOrdering Facility: [facility] Address: [address] [place] [address] Performed By: #### 5 7021-8 ####[facility] LABCLIA [id number] [place] [address] WBC (Bld) [#/Vol] 9.89 10*3/uL Normal 3.70-11.00 [facility] Comment on above: Order Comment: Speci men Type: BLOOD SPECIMENOrdering Facility: [facility] Address: [address] [place] [address] Performed By: #### 5 7021-8 ####[facility] LABCLIA [id number] [place] [address] CNNURSEon 04-18-2025 CNNURSE Normal [facility] CNOVSPon 04-18-2025 CNOVSP Normal [facility] CNPNon 04-18-2025 CNPN Normal [facility] Comprehensive metabolic 2000 panelOrdered By: Noemi Manzano on 04-18-2025 Albumin [Mass/Vol] 4.2 g/dL 3.9 - 4.9 g/dL [facility] ALP [Catalytic activity/Vol] 81 U/L 38 - 113 U/L [facility] ALT [Catalytic activity/Vol] 10 U/L 10 - 54 U/L [facility] Anion gap [Moles/Vol] 10 mmol/L 8 - 15 mmol/L [facility] AST [Catalytic activity/Vol] 12 U/L Low 14 - 40 U/L [facility] Bilirubin [Mass/Vol] 0.2 mg/dL 0.2 - 1 .3 mg/dL [facility] Calcium [Mass/Vol] 9.2 mg/dL 8.5 - 10. 2 mg/dL [facility] Chloride [Moles/Vol] 103 mmol/L 98 - 10 7 mmol/L [facility] CO2 [Moles/Vol] 22 mmol/L 22 - 30 mmol/L [facility] Creatinine [Mass/Vol] 2.13 mg/dL High 0.73 - 1.22 mg/dL [facility] GFR/1.73 sq M.predicted among non-blacks MDRD (S/P/Bld) [Vol rate/Area] 34 mL/min/{1.73_m2} Low - PINF [facility] Comment on above: Estimated Glomerular Filtration Rate [...] 115 mg/dL High 74 - 99 mg/dL [facility] Comment on above: The [place] Diab[employer] Association (ADA) provides guidance for [...] Standards of Medical Care in Diabetes 2016, [place] [employer]. Diabetes Care. 2016.39(Suppl 1). Interpretation and review of laboratory results Abnormal [facility] Potassium [Moles/Vol] 4.7 mmol/L 3.7 - 5.1 mmol/L [facility] Protein [Mass/Vol] 7.6 g/dL 6.3 - 8.0 g/dL [facility] Sodium [Moles/Vol] 135 mmol/L Low 136 - 144 mmol/L [facility] Urea nitrogen [Mass/Vol] 33 mg/dL High 9 - 24 mg/dL [facility] Comprehensive metabolic 2000 panelon 04-18-2025 Albumin [Mass/Vol] 4.2 g/dL Normal 3.9-4.9 [facility] Comment on above: Order Comment: Speci men Type: BLOOD SPECIMENOrdering Facility: [facility] Address: [address] [place] [address] Performed By: #### 2 4323-8 ####[facility] LABCLIA [id number] [place] [address] ALP [Catalytic activity/Vol] 81 U/L Normal 38-113 [facility] Comment on above: Order Comment: Speci men Type: BLOOD SPECIMENOrdering Facility: [facility] Address: [address] [place] [address] Performed By: #### 2 4323-8 ####[facility] LABCLIA [id number] [place] [address] ALT [Catalytic activity/Vol] 10 U/L Normal 10-54 [facility] Comment on above: Order Comment: Speci men Type: BLOOD SPECIMENOrdering Facility: [facility] Address: [address] [place] [address] Performed By: #### 2 4323-8 ####[facility] LABCLIA [id number] [place] [address] Anion gap [Moles/Vol] 10 mmol/L Normal 8-15 [facility] Comment on above: Order Comment: Speci men Type: BLOOD SPECIMENOrdering Facility: [facility] Address: [address] [place] [address] Performed By: #### 2 4323-8 ####[facility] LABCLIA [id number] [place] [address] AST [Catalytic activity/Vol] 12 U/L Low 14-40 [facility] Comment on above: Order Comment: Speci men Type: BLOOD SPECIMENOrdering Facility: [facility] Address: [address] [place] [address] Performed By: #### 2 4323-8 ####[facility] LABCLIA [id number] [place] [address] Bilirubin [Mass/Vol] 0.2 mg/dL Normal 0.2-1.3 [facility] Comment on above: Order Comment: Speci men Type: BLOOD SPECIMENOrdering Facility: [facility] Address: [address] [place] [address] Performed By: #### 2 4323-8 ####[facility] LABCLIA [id number] [place] [address] Calcium [Mass/Vol] 9.2 mg/dL Normal 8.5-10.2 [facility] Comment on above: Order Comment: Speci men Type: BLOOD SPECIMENOrdering Facility: [facility] Address: [address] [place] [address] Performed By: #### 2 4323-8 ####[facility] LABCLIA [id number] [place] [address] Chloride [Moles/Vol] 103 mmol/L Normal 98-107 [facility] Comment on above: Order Comment: Speci men Type: BLOOD SPECIMENOrdering Facility: [facility] Address: [address] [place] [address] Performed By: #### 2 4323-8 ####[facility] LABCLIA [id number] [place] [address] CO2 [Moles/Vol] 22 mmol/L Normal 22-30 [facility] Comment on above: Order Comment: Speci men Type: BLOOD SPECIMENOrdering Facility: [facility] Address: [address] [place] [address] Performed By: #### 2 4323-8 ####[facility] LABCLIA [id number] [place] [address] Creatinine [Mass/Vol] 2.13 mg/dL High 0.73-1.22 [facility] Comment on above: Order Comment: Speci men Type: BLOOD SPECIMENOrdering Facility: [facility] Address: [address] [place] [address] Performed By: #### 2 4323-8 ####[facility] LABCLIA [id number] [place] [address] eGFRcr SerPlBld CKD-EPI 2020 34 mL/min/1.73m??? Low >=60 [facility] Comment on above: Order Comment: Speci men Type: BLOOD SPECIMENOrdering Facility: [facility] Address: [address] [place] [address] Result Comment: Samantha mated Glomerular Filtration Rate [...] actual GFR. Performed By: #### 2 4323-8 ####[facility] LABCLIA [id number] [place] [address] Glucose [Mass/Vol] 115 mg/dL High 74-99 [facility] Comment on above: Order Comment: Speci men Type: BLOOD SPECIMENOrdering Facility: [facility] Address: [address] [place], [place] [address] Result Comment: The [place] Diabetes Association (ADA) provides guidance for cutoff values for fasting glucose and random glucose. The ADA defines fasting as no caloric intake for at least 8 hours. Fasting plasma glucose results between 100 to 125 mg/dL indicate increased risk for diabetes (prediabetes).Fasting plasma glucose results greater than or equal to 126 mg/dL meet the criteria for diagnosis of diabetes. In the absence of unequivocal hyperglycemia, results should be confirmed by repeat testing. In a patient with classic symptoms of hyperglycemia or hyperglycemic crisis, random plasma glucose results greater than or equal to 200 mg/dL meet the criteria for diagnosis of diabetes.Reference: Standards of Medical Care in Diabetes 2016, [place] Diabetes Association. Diabetes Care. 2016.39(Suppl 1). Performed By: #### 2 4323-8 ####[facility] LABCLIA [id number] [place] [address] Potassium [Moles/Vol] 4.7 mmol/L Normal 3.7-5.1 [facility] Comment on above: Order Comment: Speci men Type: BLOOD SPECIMENOrdering Facility: [facility] Address: [address] [place] [address] Performed By: #### 2 4323-8 ####[facility] LABCLIA [id number] [place] [address] Protein [Mass/Vol] 7.6 g/dL Normal 6.3-8.0 [facility] Comment on above: Order Comment: Speci men Type: BLOOD SPECIMENOrdering Facility: [facility] Address: [address] [place], [place] [address] Performed By: #### 2 4323-8 ####[facility] LABCLIA [id number] [place] [address] Sodium [Moles/Vol] 135 mmol/L Low 136-144 [facility] Comment on above: Order Comment: Speci men Type: BLOOD SPECIMENOrdering Facility: [facility] Address: [address] [place] [address] Performed By: #### 2 4323-8 ####[facility] LABCLIA [id number] [place] [address] Urea nitrogen [Mass/Vol] 33 mg/dL High 9-24 [facility] Comment on above: Order Comment: Speci men Type: BLOOD SPECIMENOrdering Facility: [facility] Address: [address] [place] [address] Performed By: #### 2 4323-8 ####[facility] LABCLIA [id number] [place] [address] THYROID STIMULATING HORMONEo n 04-18-2025 TSH Qn 2.41 m[IU]/L [facility] TSH Qnon 04-18-2025 Interpretation and review of laboratory results Normal [facility] TSH SerPl-aCncon 04-18-2025 TSH Qn 2.410 m[IU]/L Normal 0.270-4.200 [facility] Comment on above: Order Comment: Speci men Type: BLOOD SPECIMENOrdering Facility: [facility] Address: [address] [place] [address] Performed By: #### 3 016-3 ####[facility] LABCLIA [id number] [place] [id number] [place] CNCNPATEDon 04-17-2025 CNCNPATED Normal [facility] CNPNon 04-15-2025 CNPN Normal [facility] CNPNon 04-10-2025 CNPN Normal [facility] CNOVSPon 04-09-2025 CNOVSP Normal [facility] CBC W Auto Differential pane l (Bld)on 04-07-2025 Basophils (Bld) [#/Vol] 0.05 10*3/uL NINF [facility] Basophils/100 WBC (Bld) 0.6 % C [facility] Differential cell count method Nom (Bld) Auto [facility] Eosinophils (Bld) [#/Vol] 0.13 10*3/uL [facility] Eosinophils/100 WBC (Bld) 1.5 % [facility] Erythrocyte distribution width (RBC) [Ratio] 19.2 % High 11.5 - 15.0 % [facility] Hematocrit (Bld) [Volume fraction] 33.4 % Low 39.0 - 51.0 % [facility] Hemoglobin (Bld) [Mass/Vol] 10.6 g/dL Low 13.0 - 17.0 g/dL [facility] Immature granulocytes (Bld) [#/Vol] 0.11 10*3/uL High [facility] Immature granulocytes/100 WBC (Bld) 1.3 % [facility] Interpretation and review of laboratory results Abnormal [facility] Lymphocytes (Bld) [#/Vol] 1.25 10*3/uL [facility] Lymphocytes/100 WBC (Bld) 14.7 % [facility] MCH (RBC) [Entitic mass] 25.3 pg Low 26.0 - 34.0 pg [facility] MCHC (RBC) [Mass/Vol] 31.7 g/dL 30.5 - 36.0 g/dL [facility] MCV (RBC) [Entitic vol] 79.7 fL Low 80.0 - 100.0 fL [facility] Monocytes (Bld) [#/Vol] 0.76 10*3/uL [facility] Monocytes/100 WBC (Bld) 8.9 % C [facility] Neutrophils (Bld) [#/Vol] 6.23 10*3/uL [facility] Neutrophils/100 WBC (Bld) 73 % [facility] Nucleated RBC (Bld) [#/Vol] [facility] Nucleated RBC/100 WBC (Bld) [Ratio] 0 % /100 WBC [facility] Platelet mean volume (Bld) [Entitic vol] 8.8 fL Low 9.0 - 12.7 fL [facility] Platelets (Bld) [#/Vol] 197 10*3/uL [facility] RBC (Bld) [#/Vol] 4.19 10*6/uL Low 4.20 - 6.0 0 m/uL [facility] WBC (Bld) [#/Vol] 8.53 10*3/uL [facility] Basophils (Bld) [#/Vol] 0.05 10*3/uL Normal <0.11 [facility] Comment on above: Order Comment: Speci men Type: BLOOD SPECIMENOrdering Facility: [facility] Address: [address] [place] [address] Performed By: #### 5 7021-8 ####[facility] LABCLIA [id number] [place] [address] Basophils/100 WBC (Bld) 0.6 % Normal [facility] Comment on above: Order Comment: Speci men Type: BLOOD SPECIMENOrdering Facility: [facility] Address: [address] [place] [address] Performed By: #### 5 7021-8 ####[facility] LABCLIA [id number] [place] [address] Differential cell count method Nom (Bld) Auto Normal [facility] Comment on above: Order Comment: Speci men Type: BLOOD SPECIMENOrdering Facility: [facility] Address: [address] [place] [address] Performed By: #### 5 7021-8 ####[facility] LABCLIA [id number] [place] [address] Eosinophils (Bld) [#/Vol] 0.13 10*3/uL Normal <0.46 [facility] Comment on above: Order Comment: Speci men Type: BLOOD SPECIMENOrdering Facility: [facility] Address: [address] [place] [address] Performed By: #### 5 7021-8 ####[facility] LABCLIA [id number] [place] [address] Eosinophils/100 WBC (Bld) 1.5 % Normal [facility] Comment on above: Order Comment: Speci men Type: BLOOD SPECIMENOrdering Facility: [facility] Address: [address] [place] [address] Performed By: #### 5 7021-8 ####[facility] LABCLIA [id number] [place] [address] Erythrocyte distribution width (RBC) [Ratio] 19.2 % High 11.5-15.0 [facility] Comment on above: Order Comment: Speci men Type: BLOOD SPECIMENOrdering Facility: [facility] Address: [address] [place] [address] Performed By: #### 5 7021-8 ####[facility] LABCLIA [id number] [place] [address] Hematocrit (Bld) [Volume fraction] 33.4 % Low 39.0-51.0 [facility] Comment on above: Order Comment: Speci men Type: BLOOD SPECIMENOrdering Facility: [facility] Address: [address] [place] [address] Performed By: #### 5 7021-8 ####[facility] LABIA [id number] [place] [address] Hemoglobin (Bld) [Mass/Vol] 10.6 g/dL Low 13.0-17.0 [facility] Comment on above: Order Comment: Speci men Type: BLOOD SPECIMENOrdering Facility: [facility] Address: [address] [place] [address] Performed By: #### 5 7021-8 ####[facility] LABCLIA [id number] [place] [address] Immature granulocytes (Bld) [#/Vol] 0.11 10*3/uL High <0.10 [facility] Comment on above: Order Comment: Speci men Type: BLOOD SPECIMENOrdering Facility: [facility] Address: [address] [place] [address] Performed By: #### 5 7021-8 ####[facility] LABIA [id number] [place] [address] Immature granulocytes/100 WBC (Bld) 1.3 % Normal [facility] Comment on above: Order Comment: Speci men Type: BLOOD SPECIMENOrdering Facility: [facility] Address: [address] [place] [address] Performed By: #### 5 7021-8 ####[facility] LABCLIA [id number] [place] [address] Lymphocytes (Bld) [#/Vol] 1.25 10*3/uL Normal 1.00-4.00 [facility] Comment on above: Order Comment: Speci men Type: BLOOD SPECIMENOrdering Facility: [facility] Address: [address] [place] [address] Performed By: #### 5 7021-8 ####[facility] LABCLIA [id number] [place] [address] Lymphocytes/100 WBC (Bld) 14.7 % Normal [facility] Comment on above: Order Comment: Speci men Type: BLOOD SPECIMENOrdering Facility: [facility] Address: [address] [place] [address] Performed By: #### 5 7021-8 ####[facility] LABCLIA [id number] [place] [address] MCH (RBC) [Entitic mass] 25.3 pg Low 26.0-34.0 [facility] Comment on above: Order Comment: Speci men Type: BLOOD SPECIMENOrdering Facility: [facility] Address: [address] [place] [address] Performed By: #### 5 7021-8 ####[facility] LABCLIA [id number] [place] [address] MCHC (RBC) [Mass/Vol] 31.7 g/dL Normal 30.5-36.0 [facility] Comment on above: Order Comment: Speci men Type: BLOOD SPECIMENOrdering Facility: [facility] Address: [address] [place] [address] Performed By: #### 5 7021-8 ####[facility] LABCLIA [id number] [place] [address] MCV (RBC) [Entitic vol] 79.7 fL Low 80.0-100.0 C [facility] Comment on above: Order Comment: Speci men Type: BLOOD SPECIMENOrdering Facility: [facility] Address: [address] [place] [address] Performed By: #### 5 7021-8 ####[facility] LABCLIA [id number] [place] [address] Monocytes (Bld) [#/Vol] 0.76 10*3/uL Normal <0.87 [facility] Comment on above: Order Comment: Speci men Type: BLOOD SPECIMENOrdering Facility: [facility] Address: [address] [place] [address] Performed By: #### 5 7021-8 ####[facility] LABCLIA [id number] [place] [address] Monocytes/100 WBC (Bld) 8.9 % Normal C [facility] Comment on above: Order Comment: Speci men Type: BLOOD SPECIMENOrdering Facility: [facility] Address: [address] [place] [address] Performed By: #### 5 7021-8 ####[facility] LABCLIA [id number] [place] [address] Neutrophils (Bld) [#/Vol] 6.23 10*3/uL Normal 1.45-7.50 [facility] Comment on above: Order Comment: Speci men Type: BLOOD SPECIMENOrdering Facility: [facility] Address: [address] [place] [address] Performed By: #### 5 7021-8 ####[facility] LABCLIA [id number] [place] [address] Neutrophils/100 WBC (Bld) 73.0 % Normal [facility] Comment on above: Order Comment: Speci men Type: BLOOD SPECIMENOrdering Facility: [facility] Address: [address] [place] [address] Performed By: #### 5 7021-8 ####[facility] LABIA [id number] [place] [address] Nucleated RBC (Bld) [#/Vol] 10*3/uL Normal <0.01 [facility] Comment on above: Order Comment: Speci men Type: BLOOD SPECIMENOrdering Facility: [facility] Address: [address] [place] [address] Performed By: #### 5 7021-8 ####[facility] LABCLIA [id number] [place] [address] Nucleated RBC/100 WBC (Bld) [Ratio] 0.0 /100 WBC Normal [facility] Comment on above: Order Comment: Speci men Type: BLOOD SPECIMENOrdering Facility: [facility] Address: [address] [place] [address] Performed By: #### 5 7021-8 ####[facility] LABCLIA [id number] [place] [address] Platelet mean volume (Bld) [Entitic vol] 8.8 fL Low 9.0-12.7 [facility] Comment on above: Order Comment: Speci men Type: BLOOD SPECIMENOrdering Facility: [facility] Address: [address] [place] [address] Performed By: #### 5 7021-8 ####[facility] LABCLIA [id number] [place] [address] Platelets (Bld) [#/Vol] 197 10*3/uL Normal 150-400 [facility] Comment on above: Order Comment: Speci men Type: BLOOD SPECIMENOrdering Facility: [facility] Address: [address] [place] [address] Performed By: #### 5 7021-8 ####[facility] LABCLIA [id number] [place] [address] RBC (Bld) [#/Vol] 4.19 10*6/uL Low 4.20-6.00 [facility] Comment on above: Order Comment: Speci men Type: BLOOD SPECIMENOrdering Facility: [facility] Address: [address] [place] [address] Performed By: #### 5 7021-8 ####[facility] LABIA [id number] [place] [address] WBC (Bld) [#/Vol] 8.53 10*3/uL Normal 3.70-11.00 [facility] Comment on above: Order Comment: Speci men Type: BLOOD SPECIMENOrdering Facility: [facility] Address: [address] [place], [place] [address] Performed By: #### 5 7021-8 ####[facility] LABIA [id number] [place] [address] CNNURSEon 04-07-2025 CNNURSE Normal [facility] CNOVSPon 04-07-2025 CNOVSP Normal [facility] CNPNon 04-07-2025 CNPN Normal [facility] Comprehensive metabolic 2000 panelOrdered By: Domenic Matias on 04-07-2025 Albumin [Mass/Vol] 4.1 g/dL 3.9 - 4.9 g/dL [facility] ALP [Catalytic activity/Vol] 75 U/L 38 - 113 U/L [facility] ALT [Catalytic activity/Vol] 8 U/L Low 10 - 54 U/L [facility] Anion gap [Moles/Vol] 8 mmol/L 8 - 15 mmol/L [facility] AST [Catalytic activity/Vol] 10 U/L Low 14 - 40 U/L [facility] Bilirubin [Mass/Vol] 0.2 mg/dL 0.2 - 1 .3 mg/dL [facility] Calcium [Mass/Vol] 9.7 mg/dL 8.5 - 10. 2 mg/dL [facility] Chloride [Moles/Vol] 100 mmol/L 98 - 10 7 mmol/L [facility] CO2 [Moles/Vol] 25 mmol/L 22 - 30 mmol/L [facility] Creatinine [Mass/Vol] 1.96 mg/dL High 0.73 - 1.22 mg/dL [facility] GFR/1.73 sq M.predicted among non-blacks MDRD (S/P/Bld) [Vol rate/Area] 37 mL/min/{1.73_m2} Low - PINF [facility] Comment on above: Estimated Glomerular Filtration Rate [...] [Mass/Vol] 99 mg/dL 74 - 99 mg/dL [facility] Comment on above: The [place] Diabete [employer] Association (ADA) provides guidance for [...] Standards of Medical Care in Diabetes 2016, [place] [employer]. Diabetes Care. 2016.39(Suppl 1). Interpretation and review of laboratory results Abnormal [facility] Potassium [Moles/Vol] 4.7 mmol/L 3.7 - 5.1 mmol/L [facility] Protein [Mass/Vol] 7.1 g/dL 6.3 - 8.0 g/dL [facility] Sodium [Moles/Vol] 133 mmol/L Low 136 - 144 mmol/L [facility] Urea nitrogen [Mass/Vol] 27 mg/dL High 9 - 24 mg/dL [facility] Comprehensive metabolic 2000 panelon 04-07-2025 Albumin [Mass/Vol] 4.1 g/dL Normal 3.9-4.9 [facility] Comment on above: Order Comment: Speci men Type: BLOOD SPECIMENOrdering Facility: [facility] Address: [address] [place] [address] Performed By: #### 2 532-0, ####[facility] LABCLIA [id number] [place] [address] ALP [Catalytic activity/Vol] 75 U/L Normal 38-113 [facility] Comment on above: Order Comment: Speci men Type: BLOOD SPECIMENOrdering Facility: [facility] Address: [address] [place] [address] Performed By: #### 2 532-0, ####[facility] LABCLIA [id number] [place] [address] ALT [Catalytic activity/Vol] 8 U/L Low 10-54 [facility] Comment on above: Order Comment: Speci men Type: BLOOD SPECIMENOrdering Facility: [facility] Address: [address] [place] [address] Performed By: #### 2 532-0, ####[facility] LABCLIA [id number] [place] [address] Anion gap [Moles/Vol] 8 mmol/L Normal 8-15 [facility] Comment on above: Order Comment: Speci men Type: BLOOD SPECIMENOrdering Facility: [facility] Address: [address] [place] [address] Performed By: #### 2 532-0, ####[facility] LABCLIA [id number] [place] [address] AST [Catalytic activity/Vol] 10 U/L Low 14-40 [facility] Comment on above: Order Comment: Speci men Type: BLOOD SPECIMENOrdering Facility: [facility] Address: [address] [place] [address] Performed By: #### 2 532-0, ####[facility] LABCLIA [id number] [place] [address] Bilirubin [Mass/Vol] 0.2 mg/dL Normal 0.2-1.3 [facility] Comment on above: Order Comment: Speci men Type: BLOOD SPECIMENOrdering Facility: [facility] Address: [address] [place] [address] Performed By: #### 2 532-0, ####[facility] LABCLIA [id number] [place] [address] Calcium [Mass/Vol] 9.7 mg/dL Normal 8.5-10.2 [facility] Comment on above: Order Comment: Speci men Type: BLOOD SPECIMENOrdering Facility: [facility] Address: [address] [place] [address] Performed By: #### 2 532-0, ####[facility] LABCLIA [id number] [place] [address] Chloride [Moles/Vol] 100 mmol/L Normal 98-107 [facility] Comment on above: Order Comment: Speci men Type: BLOOD SPECIMENOrdering Facility: [facility] Address: [address] [place] [address] Performed By: #### 2 532-0, ####[facility] LABCLIA [id number] [place] [address] CO2 [Moles/Vol] 25 mmol/L Normal 22-30 [facility] Comment on above: Order Comment: Speci men Type: BLOOD SPECIMENOrdering Facility: [facility] Address: [address] [place], [place] [address] Performed By: #### 2 532-0, ####[facility] LABCLIA [id number] [place] [address] Creatinine [Mass/Vol] 1.96 mg/dL High 0.73-1.22 [facility] Comment on above: Order Comment: Speci men Type: BLOOD SPECIMENOrdering Facility: [facility] Address: [address] [place] [address] Performed By: #### 2 532-0, 61211-9 ####[facility] LABCLIA [id number] [place] [address] Creatinine and Glomerular filtration rate.predicted panel (S/P/Bld) 37 mL/min/1.73m??? Low >=60 [facility] Comment on above: Order Comment: Miguelina thomas Type: BLOOD SPECIMENOrdering Facility: [facility] Address: [address] [place] [address] Result Comment: Samantha mated Glomerular Filtration Rate [...] actual GFR. Performed By: #### 2 532-0, 91934-2 ####[facility] LABCLIA [id number] [place] [address] Glucose [Mass/Vol] 99 mg/dL Normal 74-99 [facility] Comment on above: Order Comment: Miguelina thomas Type: BLOOD SPECIMENOrdering Facility: [facility] Address: [address] [place] [address] Result Comment: The [place] Diabetes Association (ADA) provides guidance for cutoff values for fasting glucose and random glucose. The ADA defines fasting as no caloric intake for at least 8 hours. Fasting plasma glucose results between 100 to 125 mg/dL indicate increased risk for diabetes (prediabetes).Fasting plasma glucose results greater than or equal to 126 mg/dL meet the criteria for diagnosis of diabetes. In the absence of unequivocal hyperglycemia, results should be confirmed by repeat testing. In a patient with classic symptoms of hyperglycemia or hyperglycemic crisis, random plasma glucose results greater than or equal to 200 mg/dL meet the criteria for diagnosis of diabetes.Reference: Standards of Medical Care in Diabetes 2016, [place] [employer]. Diabetes Care. 2016.39(Suppl 1). Performed By: #### 2 532-0, 24064-9 ####[facility] LABCLIA [id number] [place] [address] Potassium [Moles/Vol] 4.7 mmol/L Normal 3.7-5.1 [facility] Comment on above: Order Comment: Speci men Type: BLOOD SPECIMENOrdering Facility: [facility] Address: [address] [place] [address] Performed By: #### 2 532-0, 91569-3 ####[facility] LABCLIA [id number] [place] [address] Protein [Mass/Vol] 7.1 g/dL Normal 6.3-8.0 [facility] Comment on above: Order Comment: Speci men Type: BLOOD SPECIMENOrdering Facility: [facility] Address: [address] [place] [address] Performed By: #### 2 532-0, 43550-0 ####[facility] LABCLIA [id number] [place] [address] Sodium [Moles/Vol] 133 mmol/L Low 136-144 [facility] Comment on above: Order Comment: Speci men Type: BLOOD SPECIMENOrdering Facility: [facility] Address: [address] [place] [address] Performed By: #### 2 532-0, 46717-1 ####[facility] LABCLIA [id number] [place] [address] Urea nitrogen [Mass/Vol] 27 mg/dL High 9-24 [facility] Comment on above: Order Comment: Speci men Type: BLOOD SPECIMENOrdering Facility: [facility] Address: [address] [place] [address] Performed By: #### 2 532-0, 58327-2 ####[facility] LABCLIA [id number] [place] [address] LACTATE DEHYDROGENASEon 07-0 -2024 LDH [Catalytic activity/Vol] 116 U/L Low 135 - 225 U/L [facility] LDH SerPl-cCncon 04-07-2025 LDH [Catalytic activity/Vol] 116 U/L Low 135-225 [facility] Comment on above: Order Comment: Speci men Type: BLOOD SPECIMENOrdering Facility: [facility] Address: [address] [place] [address] Performed By: #### 2 532-0, 88372-8 ####[facility] LABCLIA [id number] [place] [address] LDH [Catalytic activity/Vol] on 04-07-2025 Interpretation and review of laboratory results Abnormal [facility] MISC SEND OUT TST 1on 2024 MISC SCAN TEST RESULTS 1 Normal [facility] Comment on above: Order Comment: Speci men Type: BLOOD SPECIMENOrdering Facility: [facility] Address: [address] [place] [address] Result Comment: Rese arch Performed By: #### M ISC1 ####[facility] LABCLIA [id number] [address] [place] REFERRAL LAB 1 (DROP-DOWN) Normal [facility] Comment on above: Order Comment: Speci men Type: BLOOD SPECIMENOrdering Facility: [facility] Address: [address] [place] [address] Result Comment: Rese arch Performed By: #### M ISC1 ####[facility] LABCLIA [id number] [address] [place] TEST 1 Normal [facility] Comment on above: Order Comment: Speci men Type: BLOOD SPECIMENOrdering Facility: [facility] Address: [address] [place] [address] Result Comment: Rese arch Performed By: #### M ISC1 ####[facility] LABCLIA [id number] [place] [id number] [place] CNPLoren 04-02-2025 CARLY Telephone (FVUROL) LESKYLER MYLES ([id number]) 1960 M Date Time Provider Department 04/02/25 BING ARVIZU During your visit today, we recorded the following information about you: Tamiko Jimenes 04/02/2025 4:02 PM Addendum Patient called into office requesting a release back to work letter from recent surgery with Dr. Arvizu. He is asking for release date of 04/14/2025. Patient can be reached on number listed in [employer] as home/mobile. Krzysztof Gil MA 04/03/2025 10:37 AM Signed Sent letter to patient via zerved, Re5ult message for patient advising a return to work letter has been sent to his [employer] Krzysztof Gil MA Allergies As of Date: 04/02/2025 Noted Allergy Reaction FLOMAX (TAMSULOSIN) 02/27/2025 14 - Other: See Comments Comments: dizziness and back pain Date Reviewed: 03/18/2025 Reviewed by: Isabella Ovalle MA - Fully Assessed Reason for Visit: [...] Encounter Status:Closed by KRZYSZTOF GIL on 04/03/25 [facility] CNPN Normal [facility] CNNURSEon 04-01-2025 CNNURSE Normal [facility] GLUCOSE, BLOOD (POC)on 04-01 Glucose [Mass/Vol] 104 mg/dL Abnormal 74 - 99 mg/dL [facility] Comment on above: Location:[facility], [address] [place] [address] , [place], [place], [address] The Accu-Chek Inform II glucose meter has [...] Interpretation and review of laboratory results Abnormal [facility] NM PET/CT SKULL-THIGH INITon 04-01-2025 NM PET/CT SKULL-THIGH INIT Normal [facility] PET+CT Guidance for localiza tion of tumor [...] designed to produce diagnostic CT scan quality. Physiologic/non-pathol ogic uptake in some body regions could confound or obscure some pathology. * CT Dose-Length Product (DLP): 417 mGy*cm * CT Dose Reduction Employed: Yes * Blood glucose: 104 mg/dL * Injection site: Right Forearm-Antecubital * Injected activity: 16.6 mCi * Uptake Time: 60 minutes * Radiopharmaceutical: B96-Huijfbqsstxjltnfwb (FDG) COMPARISON: No previous FDG PET/CT available CORRELATION: [facility] CT abdomen/pelvis 12/14/2024 RESULT: REFERENCES: FDG [...] the posterior/inferior left chest wall are likely postsurgical/inflammat ory. Bilateral gynecomastia. ABDOMEN AND PELVIS: Hepatobiliary: No [...] recommended if there is concern for superimposed infectious/inflammator y process. Attention on follow-up recommended to ensure resolution. KARIS DISEASE: * Metabolically active enlarged left para-aortic retroperitoneal metastatic node. METASTATIC DISEASE: * No metabolically active distant metastases. ADDITIONAL FINDINGS: * Focal metabolic activity at the inferior right thyroid lobe. Further characterization with thyroid ultrasound recommended. * Foci of uptake along the posterior/inferior left chest wall, likely postsurgical/inflammat ory. Transcribe Date/Time: Apr 01 2025 2:38P Dictated by: IRENE POWER MD This examination was interpreted and the report reviewed and electronica (more content not included)... DIVISION OF RADIOLOGY Provider, [facility] - 04/01/2025 * * *Final Report* * [...] designed to produce diagnostic CT scan quality. Physiologic/non-pathol ogic uptake in some body regions could confound or obscure some pathology. * CT Dose-Length Product (DLP): 417 mGy*cm * CT Dose Reduction Employed: Yes * Blood glucose: 104 mg/dL * Injection site: Right Forearm-Antecubital * Injected activity: 16.6 mCi * Uptake Time: 60 minutes * Radiopharmaceutical: Z69-Ruphmeczrhbbrztvww (FDG) COMPARISON: No previous FDG PET/CT available [...] the posterior/inferior left chest wall are likely postsurgical/inflammat ory. Bilateral gynecomastia. ABDOMEN AND PELVIS: Hepatobiliary: No [...] recommended if there is concern for superimposed infectious/inflammator y process. Attention on follow-up recommended to ensure resolution. KARIS DISEASE: * Metabolically active enlarged left para-aortic retroperitoneal metastatic node. METASTATIC DISEASE: * No metabolically active distant metastases. ADDITIONAL FINDINGS: * Focal metabolic activity at the inferior right thyroid lobe. Further characterization with thyroid ultrasound recommended. * Foci of uptake along the posterior/inferior left chest wall, likely postsurgical/inflammat ory. Transcribe Date/Time: Apr 01 2025 2:38P Dictated by: IRENE POWER MD This examination was interpreted and the report reviewed and electroni (more content not included)... [facility] Radiology Study observation (narrative) [facility] PET+CT Guidance for localiza tion of tumor of Skull base to mid-thigh-- W 18F-FDG IVOrdered By: Ccf Provider on 04-01-2025 [facility] Normal [facility] CNPNon 03-20-2025 CNPN Normal [facility] CNOVSPon 03-18-2025 CNOVSP Normal [facility] Ambulatory Visit Summaryon 0 03-14-2025 Ambulatory Visit Summary Ambulatory Visit Summary SKYLER LE :1960 Visit Date:03/14/2025 Ambulatory Visit Instructions 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 Your Care Team Attending Physician - KARLA JAMES, Nikolai Berry Primary Care Physician - JESSICA DAVALOS CNP This Is Your Medications List ciprofloxacin (ciprofloxacin 500 mg Tab) dutasteride (dutasteride 0.5 mg Cap) Contact prescribing physician if questions or concerns acetaminophen allopurinol (allopurinol 300 mg Tab) docusate (Colace) fluoxetine (FLUoxetine 10 mg Cap) hydrochlorothiazide-li sinopril (hydrochlorothiazide-l isinopril 12.5 mg-20 mg Tab) metformin (metformin 1000 [...] Following Appointments Follow Up with KARLA JAMES, BRIGID Venegas When: Where: [address] [place] [address]- Medications What How Much When Instructions New [...] prescribing physician if questions or concerns Unchanged hydrochlorothiazide-li sinopril (hydrochlorothiazide-l isinopril 12.5 mg-20 mg Tab) 1 Tablets Contact [...] making and (more content not included)... Normal [facility] Urology Office/Clinic Noteon 03-14-2025 Urology Office/Clinic Note [...] for HG. CT AP w/wo con 12/14/24 [facility] - 6.9 x 6.3 x 6.0 cm [...] renal mass biopsy 01/24/[address] Yovany Bradley. Path ~RCC with tumor cell necrosis and [...] the ER earlier this week, went to [facility]. Pt's potassium was 6.2 and Cr was 2.0. Pt states his potassium was rechecked and has decreased into normal range (per pt). -Proceed with onc consultation at [facility] -Will provide pt with orders for BUN, Cr, Potassium 2. 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 Extremely thick trabeculation. Diffuse diverticuli most of which were very deep. Started Flomax 0.4 mg bid. PVR 12/20/24 - 37 cc. IPSS 15 (17) Failed [...] Information KARLA JAMES, Nikolai Berry, URL [address] [place] [id number]- Additional Instructions: 6 mos Patient Education Kidney Cancer IYessenia, personally scribed for Dr. Acosta on 03/14/2025 08:43:59. . Documentation recorded by the scribYessenia madison, accurately reflects the services(s) I performed [...] Medications acetaminoph (more content not included)... Normal [facility] Comment on above: Result Comment: Elec tronically Signed By: Nikolai ACOSTA MD\.br\Date and Time Signed: 03/14/25 08:48 EDT\.br\Electronically Co-Signed By: Yessenia Chandra\.br\Date and Time Co-Signed: 03/14/25 08:45 EDT\.br\Electronically Co-Signed By: Yessenia Chandra\.br\Date and Time Co-Signed: 03/14/25 08:47 EDT CNPNon 03-12-2025 CNPN Telephone (FVUROL) SKYLER LE ([id number]) 1960 M Date Time Provider Department 03/12/25 BING ARVIZU FVUROL During your visit today, we recorded the following information about you: Darrell Justin RN 03/12/2025 1:35 PM Signed FLMA forms completed and faxed to [employer]. Fax confirmation received. Completed forms placed at the front desk auxiliary to be scanned into patients chart. Darrell [...] Encounter Status:Closed by DARRELL JUSTIN on 03/12/25 [facility] CNPN Telephone (AVPRAD) SKYLER LE ([id number]) 1960 M Date Time Provider Department 03/11/25 [...] go to ED closer to home as [place] is almost [place] hour away. All questions [...] Encounter Status:Closed by AUREA RODRIGUEZ on 03/11/25 [facility] CNPN Telephone (FVPRAD) MIMISKYLER MOHINI ([id number]) 1960 M Date Time Provider Department 03/11/25 TAMANNA ZHU FVPRAD During your visit today, we recorded the following information about you: Tamanna Zhu APRN.SUSTAINABILITY ENGINEER 03/11/2025 9:31 AM Signed Spoke with Mr. [...] Status:Closed by TAMANNA ZHU on 03/11/25 Normal [facility] Renal function 2000 panelon 03-10-2025 Albumin [Mass/Vol] 3.9 g/dL Normal 3.9-4.9 [facility] Comment on above: Order Comment: Speci men Type: BLOOD SPECIMENOrdering Facility: [facility] Address: [address] [place] [address] Performed By: #### 2 4362-6 ####[facility] LABCLIA [id number] [place] [address] [place] Anion gap [Moles/Vol] 15 mmol/L Normal 8-15 [facility] Comment on above: Order Comment: Speci men Type: BLOOD SPECIMENOrdering Facility: [facility] Address: [address] [place] [address] Performed By: #### 2 4362-6 ####[facility] LABCLIA [id number] [address] [address] [place] Calcium [Mass/Vol] 9.8 mg/dL Normal 8.5-10.2 [facility] Comment on above: Order Comment: Speci men Type: BLOOD SPECIMENOrdering Facility: [facility] Address: [address] [place] [address] Performed By: #### 2 4362-6 ####[facility] LABCLIA [id number] [place] [id number] [place] Chloride [Moles/Vol] 100 mmol/L Normal 98-107 [facility] Comment on above: Order Comment: Speci men Type: BLOOD SPECIMENOrdering Facility: [facility] Address: [address] [place] [address] Performed By: #### 2 4362-6 ####[facility] LABCLIA [id number] [place] [id number] [place] CO2 [Moles/Vol] 19 mmol/L Low 22-30 [facility] Comment on above: Order Comment: Speci men Type: BLOOD SPECIMENOrdering Facility: [facility] Address: [address] [place] [address] Performed By: #### 2 4362-6 ####[facility] LABCLIA [id number] [address] [address] [place] Creatinine [Mass/Vol] 2.16 mg/dL High 0.73-1.22 [facility] Comment on above: Order Comment: Speci men Type: BLOOD SPECIMENOrdering Facility: [facility] Address: [address] [place], [place] [address] Performed By: #### 2 4362-6 ####[facility] LABCLIA [id number] [address] [address] [place] Creatinine and Glomerular filtration rate.predicted panel (S/P/Bld) 33 mL/min/1.73m??? Low >=60 [facility] Comment on above: Order Comment: Miguelina thomas Type: BLOOD SPECIMENOrdering Facility: [facility] Address: [address] [place] [address] Result Comment: Samantha mated Glomerular Filtration Rate [...] actual GFR. Performed By: #### 2 4362-6 ####[facility] LABCLIA [id number] [place] [address] [place] Glucose [Mass/Vol] 94 mg/dL Normal 74-99 [facility] Comment on above: Order Comment: Miguelina thomas Type: BLOOD SPECIMENOrdering Facility: [facility] Address: [address] [place] [address] Result Comment: The [place] Diabetes Association (ADA) provides guidance for cutoff values for fasting glucose and random glucose. The ADA defines fasting as no caloric intake for at least 8 hours. Fasting plasma glucose results between 100 to 125 mg/dL indicate increased risk for diabetes (prediabetes).Fasting plasma glucose results greater than or equal to 126 mg/dL meet the criteria for diagnosis of diabetes. In the absence of unequivocal hyperglycemia, results should be confirmed by repeat testing. In a patient with classic symptoms of hyperglycemia or hyperglycemic crisis, random plasma glucose results greater than or equal to 200 mg/dL meet the criteria for diagnosis of diabetes.Reference: Standards of Medical Care in Diabetes 2016, [place] Diabetes Association. Diabetes Care. 2016.39(Suppl 1). Performed By: #### 2 4362-6 ####[facility] LABIA [id number] [place] [id number] [place] Phosphate [Mass/Vol] 3.7 mg/dL Normal 2.7-4.8 [facility] Comment on above: Order Comment: Speci men Type: BLOOD SPECIMENOrdering Facility: [facility] Address: [address] [place] [address] Performed By: #### 2 4362-6 ####[facility] LABCLIA [id number] [address] [address] [place] Potassium [Moles/Vol] 6.2 mmol/L Critically high 3.7-5.1 [facility] Comment on above: Order Comment: Speci men Type: BLOOD SPECIMENOrdering Facility: [facility] Address: [address] [place] [address] Performed By: #### 2 4362-6 ####[facility] LABCLIA [id number] [address], [place] [address] [place] Sodium [Moles/Vol] 134 mmol/L Low 136-144 [facility] Comment on above: Order Comment: Speci men Type: BLOOD SPECIMENOrdering Facility: [facility] Address: [address] [place] [address] Performed By: #### 2 4362-6 ####[facility] LABCLIA [id number] [place] [address] [place] Urea nitrogen [Mass/Vol] 31 mg/dL High 9-24 [facility] Comment on above: Order Comment: Speci men Type: BLOOD SPECIMENOrdering Facility: [facility] Address: [address] [place] [address] Performed By: #### 2 4362-6 ####[facility] LABIA [id number] [address], [facility] [place] Sarai 03-05-2025 CARLY Telephone (FVSHIVA) MIMISKYLER RAJAN ([id number]) 1960 M Date Time Provider Department 03/05/25 BING ARVIZU During your visit today, we recorded the following information about you: Anegla Luis 03/05/2025 1:52 PM Signed Patient needs [...] Fully Assessed Reason for Visit: Patient Question [8822] Prescriptions as of 03/05/2025 - acetaminophen (TYLENOL) [...] Status:Closed by ANGELA LUIS on 03/05/25 Normal [facility] Renal function 2000 panelon 03-04-2025 Albumin [Mass/Vol] 3.6 g/dL Low 3.9-4.9 [facility] Comment on above: Order Comment: Speci men Type: BLOOD SPECIMENOrdering Facility: [facility] Address: [address] [place] [address] Performed By: #### 2 4362-6 ####[facility] LABCLIA [id number] [place] [address] [place] Anion gap [Moles/Vol] 14 mmol/L Normal 8-15 [facility] Comment on above: Order Comment: Speci men Type: BLOOD SPECIMENOrdering Facility: [facility] Address: [address] [place] [address] Performed By: #### 2 4362-6 ####[facility] LABCLIA [id number] [place] [address] [place] Calcium [Mass/Vol] 9.4 mg/dL Normal 8.5-10.2 [facility] Comment on above: Order Comment: Speci men Type: BLOOD SPECIMENOrdering Facility: [facility] Address: [address] [place] [address] Performed By: #### 2 4362-6 ####[facility] LABCLIA [id number] [place] [id number] [place] Chloride [Moles/Vol] 98 mmol/L Normal 98-107 [facility] Comment on above: Order Comment: Speci men Type: BLOOD SPECIMENOrdering Facility: [facility] Address: [address] [place], [place] [address] Performed By: #### 2 4362-6 ####[facility] LABCLIA [id number] [place] [id number] [place] CO2 [Moles/Vol] 21 mmol/L Low 22-30 [facility] Comment on above: Order Comment: Speci men Type: BLOOD SPECIMENOrdering Facility: [facility] Address: [address] [place] [address] Performed By: #### 2 4362-6 ####[facility] LABCLIA [id number] [place] [id number] [place] Creatinine [Mass/Vol] 2.08 mg/dL High 0.73-1.22 [facility] Comment on above: Order Comment: Speci men Type: BLOOD SPECIMENOrdering Facility: [facility] Address: [address] [place] [address] Performed By: #### 2 4362-6 ####[facility] LABIA [id number] [place] [address] [place] Creatinine and Glomerular filtration rate.predicted panel (S/P/Bld) 34 mL/min/1.73m??? Low >=60 [facility] Comment on above: Order Comment: Speci men Type: BLOOD SPECIMENOrdering Facility: [facility] Address: [address] [place] [address] Result Comment: Samantha mated Glomerular Filtration Rate [...] actual GFR. Performed By: #### 2 4362-6 ####[facility] LABCLIA [id number] [place] [id number] [place] Glucose [Mass/Vol] 115 mg/dL High 74-99 [facility] Comment on above: Order Comment: Speci men Type: BLOOD SPECIMENOrdering Facility: [facility] Address: [address] [place], [place] [address] Result Comment: The [place] Diabetes Association (ADA) provides guidance for cutoff values for fasting glucose and random glucose. The ADA defines fasting as no caloric intake for at least 8 hours. Fasting plasma glucose results between 100 to 125 mg/dL indicate increased risk for diabetes (prediabetes).Fasting plasma glucose results greater than or equal to 126 mg/dL meet the criteria for diagnosis of diabetes. In the absence of unequivocal hyperglycemia, results should be confirmed by repeat testing. In a patient with classic symptoms of hyperglycemia or hyperglycemic crisis, random plasma glucose results greater than or equal to 200 mg/dL meet the criteria for diagnosis of diabetes.Reference: Standards of Medical Care in Diabetes 2016, [place] Diabetes Association. Diabetes Care. 2016.39(Suppl 1). Performed By: #### 2 4362-6 ####[facility] LABIA [id number] [place] [address] [place] Phosphate [Mass/Vol] 3.1 mg/dL Normal 2.7-4.8 [facility] Comment on above: Order Comment: Speci men Type: BLOOD SPECIMENOrdering Facility: [facility] Address: [address] [id number] Performed By: #### 2 4362-6 ####[facility] LABIA [id number] [place] [address] [place] Potassium [Moles/Vol] 5.6 mmol/L High 3.7-5.1 [facility] Comment on above: Order Comment: Speci men Type: BLOOD SPECIMENOrdering Facility: [facility] Address: [address] [id number] Performed By: #### 2 4362-6 ####[facility] LABIA [id number] [place] [id number] [place] Sodium [Moles/Vol] 133 mmol/L Low 136-144 [facility] Comment on above: Order Comment: Speci men Type: BLOOD SPECIMENOrdering Facility: [facility] Address: [address] [place] [id number] Performed By: #### 2 4362-6 ####[facility] LABCLIA [id number] [place] [id number] [place] Urea nitrogen [Mass/Vol] 33 mg/dL High 9-24 [facility] Comment on above: Order Comment: Speci men Type: BLOOD SPECIMENOrdering Facility: [facility] Address: [address] [place] [address] Performed By: #### 2 4362-6 ####[facility] LABIA [id number] [address] [place] ANES POSTPROC EVALon 025 ANES POSTPROC EVAL HNO ID: [id number] Author: BETH MASTERSON DO Service: Anesthesiology Author Type: Anesthesiologist Type: Anesthesia Postprocedure Evaluation Filed: 02/28/2025 07:22 Note Text: POST ANESTHESIA EVALUATION NOTE : 1960 Procedure Summary Date: 02/27/25 Room / Location: [place] [address] / OR Anesthesia Start: 743 Anesthesia Stop: [...] February 28, 2025 TIME: 7:22 AM CSN: [id number] Normal [facility] Basic metabolic 2000 panelon 02-28-2025 Anion gap [Moles/Vol] 15 mmol/L Normal 8-15 [facility] Comment on above: Order Comment: Speci men Type: BLOOD SPECIMENOrdering Facility: [facility] Address: [address] [place] [address] Performed By: #### 2 4321-2 ####[facility]ORY[facility] [id number] [place] [id number] [place] Calcium [Mass/Vol] 8.9 mg/dL Normal 8.5-10.2 [facility] Comment on above: Order Comment: Speci men Type: BLOOD SPECIMENOrdering Facility: [facility] Address: [address] [place] [address] Performed By: #### 2 4321-2 ####[facility]ATORYCLIA [id number] [place] [id number] [place] Chloride [Moles/Vol] 99 mmol/L Normal 98-107 [facility] Comment on above: Order Comment: Speci men Type: BLOOD SPECIMENOrdering Facility: [facility] Address: [address] [place] [address] Performed By: #### 2 4321-2 ####[facility]ATORYCLIA [id number] [place] [id number] [place] CO2 [Moles/Vol] 21 mmol/L Low -30 [facility] Comment on above: Order Comment: Speci men Type: BLOOD SPECIMENOrdering Facility: [facility] Address: [address] [place] [address] Performed By: #### 2 4321-2 ####[facility]ORYCLIA [id number] [place] [id number] [place] Creatinine [Mass/Vol] 2.00 mg/dL High 0.73-1.22 [facility] Comment on above: Order Comment: Speci men Type: BLOOD SPECIMENOrdering Facility: [facility] Address: [address] [place] [address] Performed By: #### 2 4321-2 ####[facility]ATORYCLIA [id number] [place] [id number] [place] Creatinine and Glomerular filtration rate.predicted panel (S/P/Bld) 36 mL/min/1.73m??? Low >=60 [facility] Comment on above: Order Comment: Miguelina thomas Type: BLOOD SPECIMENOrdering Facility: [facility] Address: [address] [place] [address] Result Comment: Samantha mated Glomerular Filtration Rate [...] actual GFR. Performed By: #### 2 4321-2 ####[facility]ATORYCLIA [id number] [place] [id number] [place] Glucose [Mass/Vol] 131 mg/dL High 74-99 [facility] Comment on above: Order Comment: Miguelina william Type: BLOOD SPECIMENOrdering Facility: [facility] Address: [address] [place] [address] Result Comment: The [place] Diabetes Association (ADA) provides guidance for cutoff [...] Standards of Medical Care in Diabetes 2016, [place] Diabetes Association. Diabetes Care. 2016.39(Suppl 1). Performed By: #### 2 4321-2 ####[facility]ORATORYCLIA [id number] [place] [address] [place] Potassium [Moles/Vol] 4.6 mmol/L Normal 3.7-5.1 [facility] Comment on above: Order Comment: Speci men Type: BLOOD SPECIMENOrdering Facility: [facility] Address: [address] [place] [address] Performed By: #### 2 4321-2 ####[facility] LABORATORYCLIA [id number] [place] [address] [place] Sodium [Moles/Vol] 135 mmol/L Low 136-144 [facility] Comment on above: Order Comment: Speci men Type: BLOOD SPECIMENOrdering Facility: [facility] Address: [address] [place] [address] Performed By: #### 2 4321-2 ####[facility]ORATORYCLIA [id number] [place] [address] [place] Urea nitrogen [Mass/Vol] 28 mg/dL High 9-24 [facility] Comment on above: Order Comment: Speci men Type: BLOOD SPECIMENOrdering Facility: [facility] Address: [address] [place] [address] Performed By: #### 2 4321-2 ####[facility] LABORATORYCLIA [id number] [place] [address] [place] Anion gap [Moles/Vol] 11 mmol/L Normal 8-15 [facility] Comment on above: Order Comment: Speci men Type: BLOOD SPECIMEN [facility] Address: [address] [place] [address] Performed By: #### 2 4321-2 #### [facility] CLIA [id number] [place] [address] [place] Calcium [Mass/Vol] 8.3 mg/dL Low 8.5-10.2 [facility] Comment on above: Order Comment: Speci men Type: BLOOD SPECIMEN [facility] Address: [address] [place] [address] Performed By: #### 2 4321-2 #### [facility] CLIA [id number] [place] [address] [place] Chloride [Moles/Vol] 101 mmol/L Normal 98-107 [facility] Comment on above: Order Comment: Speci men Type: BLOOD SPECIMEN [facility] Address: [address] [place] [address] Performed By: #### 2 4321-2 #### [facility] CLIA [id number] [address] [place] [address] [place] CO2 [Moles/Vol] 22 mmol/L Normal 22-30 [facility] Comment on above: Order Comment: Speci men Type: BLOOD SPECIMEN [facility] Address: [address] [place] [address] Performed By: #### 2 4321-2 #### [facility] CLIA [id number] [address] [place] [address] [place] Creatinine [Mass/Vol] 1.99 mg/dL High 0.73-1.22 [facility] Comment on above: Order Comment: Speci men Type: BLOOD SPECIMEN [facility] Address: [address] [place] [address] Performed By: #### 2 4321-2 #### [facility] CLIA [id number] [address] [place] [address] [place] Creatinine and Glomerular filtration rate.predicted panel (S/P/Bld) 36 mL/min/1.73m??? Low >=60 [facility] Comment on above: Order Comment: Speci men Type: BLOOD SPECIMEN [facility] Address: [address] [place] [address] Result Comment: Samantha mated Glomerular Filtration Rate [...] GFR. Performed By: #### 2 4321-2 #### [facility] CLIA [id number] [address] [place] [address] [place] Glucose [Mass/Vol] 142 mg/dL High 74-99 [facility] Comment on above: Order Comment: Miguelina thomas Type: BLOOD SPECIMEN [facility] Address: [address] [place] [address] Result Comment: The [place] [employer] (ADA) provides guidance for cutoff [...] Standards of Medical Care in Diabetes 2016, [place] [employer]. Diabetes Care. 2016.39(Suppl 1). Performed By: #### 2 4321-2 #### [facility] CLIA [id number] [address] [place] [address] [place] Potassium [Moles/Vol] 5.8 mmol/L High 3.7-5.1 [facility] Comment on above: Order Comment: Miguelina thomas Type: BLOOD SPECIMEN [facility] Address: [address] [place] [address] Performed By: #### 2 4321-2 #### [facility] CLIA [id number] [address] [place] [address] [place] Sodium [Moles/Vol] 134 mmol/L Low 136-144 [facility] Comment on above: Order Comment: Miguelina thomas Type: BLOOD SPECIMEN [facility] Address: [address] [place] [address] Performed By: #### 2 4321-2 #### [facility] CLIA [id number] [address] [place] [address] [place] Urea nitrogen [Mass/Vol] 29 mg/dL High 9-24 [facility] Comment on above: Order Comment: Speci men Type: BLOOD SPECIMEN [facility] Address: [address] [place] [address] Performed By: #### 2 4321-2 #### [facility] CLIA [id number] [address] [place] [address] [place] CBC panel Auto (Bld)on 02-28 Erythrocyte distribution width (RBC) [Ratio] 16.5 % High 11.5-15.0 [facility] Comment on above: Order Comment: Speci men Type: BLOOD SPECIMEN [facility] Address: [address] [place] [address] Performed By: #### 5 8410-2 #### [facility] CLIA [id number] [address] [place] [address] [place] Hematocrit (Bld) [Volume fraction] 30.1 % Low 39.0-51.0 [facility] Comment on above: Order Comment: Speci men Type: BLOOD SPECIMEN [facility] Address: [address] [place] [address] Performed By: #### 5 8410-2 #### [facility] CLIA [id number] [address] [place] [address] [place] Hemoglobin (Bld) [Mass/Vol] 9.2 g/dL Low 13.0-17.0 [facility] Comment on above: Order Comment: Speci men Type: BLOOD SPECIMEN [facility] Address: [address] [place] [address] Performed By: #### 5 8410-2 #### [facility] CLIA [id number] [address] [place] [address] [place] MCH (RBC) [Entitic mass] 24.0 pg Low 26.0-34.0 [facility] Comment on above: Order Comment: Speci men Type: BLOOD SPECIMEN [facility] Address: [address] [place] [address] Performed By: #### 5 8410-2 #### [facility] CLIA [id number] [address] [place] [address] [place] MCHC (RBC) [Mass/Vol] 30.6 g/dL Normal 30.5-36.0 [facility] Comment on above: Order Comment: Speci men Type: BLOOD SPECIMEN [facility] Address: [address] [place] [address] Performed By: #### 5 8410-2 #### [facility] CLIA [id number] [address] [place] [address] [place] MCV (RBC) [Entitic vol] 78.4 fL Low 80.0-100.0 [facility] Comment on above: Order Comment: Speci men Type: BLOOD SPECIMEN [facility] Address: [address] [place] [address] Performed By: #### 5 8410-2 #### [facility] CLIA [id number] [address] [place] [address] [place] Nucleated RBC (Bld) [#/Vol] 10*3/uL Normal <0.01 [facility] Comment on above: Order Comment: Speci men Type: BLOOD SPECIMEN [facility] Address: [address] [place] [address] Performed By: #### 5 8410-2 #### [facility] CLIA [id number] [address] [place] [address] [place] Platelet mean volume (Bld) [Entitic vol] 9.1 fL Normal 9.0-12.7 [facility] Comment on above: Order Comment: Speci men Type: BLOOD SPECIMEN [facility] Address: [address] [place] [address] Performed By: #### 5 8410-2 #### [facility] CLIA [id number] [address] [place] [address] [place] Platelets (Bld) [#/Vol] 243 10*3/uL Normal 150-400 [facility] Comment on above: Order Comment: Speci men Type: BLOOD SPECIMEN [facility] Address: [address] [place] [address] Performed By: #### 5 8410-2 #### [facility] CLIA [id number] [address] [place] [address] [place] RBC (Bld) [#/Vol] 3.84 10*6/uL Low 4.20-6.00 [facility] Comment on above: Order Comment: Speci men Type: BLOOD SPECIMEN [facility] Address: [address] [place] [address] Performed By: #### 5 8410-2 #### [facility] CLIA [id number] [address] [place] [address] [place] WBC (Bld) [#/Vol] 12.56 10*3/uL High 3.70-11.00 [facility] Comment on above: Order Comment: Speci men Type: BLOOD SPECIMEN [facility] Address: [address] [place] [address] Performed By: #### 5 8410-2 #### [facility] CLIA [id number] [address] [place] [address] [place] NURSING PROGon 02-28-2025 NURSING PROG HNO ID: [id number] Author: ANABEL BARNETT RN Service: Nursing Author [...] hold or give metoprolol. Waiting for orders Normal [facility] THERAPY NTon 02-28-2025 THERAPY NT HNO ID: [id number] Author: CAROL ARITA RRT Service: Respiratory Therapy Author Type: Registered Resp Therapist Type: Therapy (PT/OT/Speech/Resp) Filed: 02/28/2025 03:56 Note Text: RESPIRATORY THERAPY PROGRESS NOTE SERVICE DATE: 02/28/2025 SERVICE TIME: 0000 Patient has home CPAP present, shiela team paged for CPAP orders. SIGNATURE: Carol Arita RRT PATIENT NAME: Skyler Le DATE: February 28, 2025 TIME: 3:54 AM PAGER/CONTACT #: [facility] ANES PRE-OPon 02-27-2025 ANES PRE-OP HNO ID: [id number] Author: BETH MASTERSON DO Service: Anesthesiology Author [...] Taylor present: no Lip Bite Test: II Microretrognathia/Micr onagthia/Recessed Chin: No DENTAL Dental findings: teeth intact [...] and consent discussed: yes. Patient / Responsible Democrat agrees to proceed: yes Patient / Surrogate agrees to blood products: Yes Significant changes in the patient condition since the History and Physical, not otherwise documented in primary service progress note: no. Potential Anesthesia issues that may suggest increased risk of complications or contraindication to planned procedure: none. Discussed the possibility of lip / dental damage: yes Vitals Value Taken Time BP 145/87 02/27/25646 Pulse 50 02/27/25646 Resp 18 02/27/25646 Temp 36.6 ?C (97.9 ?F) 02/27/25646 SpO2 98 % 02/27/25646 Facility-Administered Medications as of 02/27/2025 Medication Dose [...] February 27, 2025 TIME: 7:12 AM CSN: [id number] Normal [facility] ARTERIAL BLOOD GASESon 02-27 Base deficit (BldA) [Moles/Vol] -3 mmol/L Low -2-0 [facility] Comment on above: Order Comment: Speci men Type: ARTERIAL BLOOD SPECIMEN [facility] Address: [address] [place] [address] Performed By: #### A [facility] #### [facility] CLIA [id number] [address] [place] [address] [place] Calcium.ionized (Bld) [Mass/Vol] 1.24 mmol/L Normal 1.08-1.30 [facility] Comment on above: Order Comment: Speci men Type: ARTERIAL BLOOD SPECIMEN [facility] Address: [address] [place] [address] Performed By: #### A LLBG #### [facility] CLIA [id number] [address] [place] [address] [place] Calcium.ionized adjusted to pH 7.4 (BldA) [Moles/Vol] 1.20 mmol/L Normal 1.08-1.30 [facility] Comment on above: Order Comment: Speci men Type: ARTERIAL BLOOD SPECIMEN [facility] Address: [address] [place] [address] Performed By: #### A LLBG #### [facility] IA [id number] [address] [place] [address] [place] Carboxyhemoglobin (BldA) [Mass fraction] 1.4 % Normal 0.0-2.0 [facility] Comment on above: Order Comment: Speci men Type: ARTERIAL BLOOD SPECIMEN [facility] Address: [address] [place] [address] Result Comment: Carb oxyhemoglobin Reference Range for Smokers: 2.0-8.0% Performed By: #### A LLBG #### [facility] IA [id number] [address] [place] [address] [place] Chloride [Moles/Vol] 103 mmol/L Normal 97-105 [facility] Comment on above: Order Comment: Speci men Type: ARTERIAL BLOOD SPECIMEN [facility] Address: [address] [place] [address] Performed By: #### A LLBG #### [facility] IA [id number] [address] [place] [address] [place] CO2 (Bld) [Partial pressure] 41 mm Hg Normal 36-46 [facility] Comment on above: Order Comment: Speci men Type: ARTERIAL BLOOD SPECIMEN [facility] Address: [address] [place] [address] Performed By: #### A LLBG #### [facility] CLIA [id number] [address] [place] [address] [place] CO2 adjusted to patient's actual temperature (Bld) [Partial pressure] Normal [facility] Comment on above: Order Comment: Speci men Type: ARTERIAL BLOOD SPECIMEN [facility] Address: [address] [place] [address] Performed By: #### A LLBG #### [facility] CLIA [id number] [address] [place] [address] [place] Glucose [Mass/Vol] 190 mg/dL High 60-105 [facility] Comment on above: Order Comment: Speci men Type: ARTERIAL BLOOD SPECIMEN [facility] Address: [address] [place] [address] Performed By: #### A LLBG #### [facility] CLIA [id number] [address] [place] [address] [place] HCO3 (Bld) [Moles/Vol] 22 mmol/L Normal 22-26 [facility] Comment on above: Order Comment: Speci men Type: ARTERIAL BLOOD SPECIMEN [facility] Address: [address] [place] [address] Performed By: #### A LLBG #### [facility] CLIA [id number] [address] [place] [address] [place] Hematocrit (Bld) [Volume fraction] 33.9 % Low 39.0-51.0 [facility] Comment on above: Order Comment: Speci men Type: ARTERIAL BLOOD SPECIMEN [facility] Address: [address] [place] [address] Performed By: #### A LLBG #### [facility] CLIA [id number] [address] [place] [address] [place] Hemoglobin (Bld) [Mass/Vol] 11.0 g/dL Low 13.0-17.0 [facility] Comment on above: Order Comment: Speci men Type: ARTERIAL BLOOD SPECIMEN Order[facility] Address: [address] [place] [address] Performed By: #### A LLBG #### [facility] CLIA [id number] [address] [place] [address] [place] Lactate [Moles/Vol] 2.7 mmol/L High 0.5-2.2 [facility] Comment on above: Order Comment: Speci men Type: ARTERIAL BLOOD SPECIMEN [facility] Address: [address] [place] [address] Performed By: #### A LLBG #### [facility] IA [id number] [address] [place] [address] [place] Methemoglobin (Bld) [Mass fraction] 0.8 % Normal 0.0-1.5 [facility] Comment on above: Order Comment: Speci men Type: ARTERIAL BLOOD SPECIMEN [facility] Address: [address] [place] [address] Performed By: #### A LLBG #### [facility] IA [id number] [address] [place] [address] [place] Oxygen (Bld) [Partial pressure] 179 mm Hg High 85-95 [facility] Comment on above: Order Comment: Speci men Type: ARTERIAL BLOOD SPECIMEN [facility] Address: [address] [place] [address] Performed By: #### A LLBG #### [facility] IA [id number] [address] [place] [address] [place] Oxygen adjusted to patient's actual temperature (Bld) [Partial pressure] Normal [facility] Comment on above: Order Comment: Speci men Type: ARTERIAL BLOOD SPECIMEN [facility] Address: [address] [place] [address] Performed By: #### A LLBG #### [facility] IA [id number] [address] [place] [address] [place] Oxyhemoglobin (BldA) [Mass fraction] 97 % Normal 95-98 [facility] Comment on above: Order Comment: Speci men Type: ARTERIAL BLOOD SPECIMEN [facility] Address: [address] [place] [address] Performed By: #### A LLBG #### [facility] CLIA [id number] [address] [place] [address] [place] pH (Bld) 7.35 [pH] Normal 7.35-7.45 [facility] Comment on above: Order Comment: Speci men Type: ARTERIAL BLOOD SPECIMEN [facility] Address: [address] [place] [address] Performed By: #### A LLBG #### [facility] CLIA [id number] [address] [place] [address] [place] pH adjusted to patient's actual temperature (Bld) Normal [facility] Comment on above: Order Comment: Speci men Type: ARTERIAL BLOOD SPECIMEN [facility] Address: [address] [place] [address] Performed By: #### A LLBG #### [facility] CLIA [id number] [address] [place] [address] [place] Potassium [Moles/Vol] 5.5 mmol/L High 3.5-5.0 [facility] Comment on above: Order Comment: Speci men Type: ARTERIAL BLOOD SPECIMEN [facility] Address: [address] [place] [address] Performed By: #### A LLBG #### [facility] CLIA [id number] [address] [place] [address] [place] Sodium [Moles/Vol] 135 mmol/L Low 136-144 [facility] Comment on above: Order Comment: Speci men Type: ARTERIAL BLOOD SPECIMEN [facility] Address: [address] [place] [address] Performed By: #### A LLBG #### [facility] CLIA [id number] [address] [place] [address] [place] Base deficit (BldA) [Moles/Vol] -3 mmol/L Low -2-0 [facility] Comment on above: Order Comment: Speci men Type: ARTERIAL BLOOD SPECIMEN [facility] Address: [address] [place] [address] Performed By: #### A LLBG #### [facility] CLIA [id number] [address] [place] [address] [place] Calcium.ionized (Bld) [Mass/Vol] 1.24 mmol/L Normal 1.08-1.30 [facility] Comment on above: Order Comment: Speci men Type: ARTERIAL BLOOD SPECIMEN [facility] Address: [address] [place] [address] Performed By: #### A LLBG #### [facility] CLIA [id number] [address] [place] [address] [place] Calcium.ionized adjusted to pH 7.4 (BldA) [Moles/Vol] 1.20 mmol/L Normal 1.08-1.30 [facility] Comment on above: Order Comment: Speci men Type: ARTERIAL BLOOD SPECIMEN [facility] Address: [address] [place] [address] Performed By: #### A LLBG #### [facility] CLIA [id number] [address] [place] [address] [place] Carboxyhemoglobin (BldA) [Mass fraction] 0.8 % Normal 0.0-2.0 [facility] Comment on above: Order Comment: Speci men Type: ARTERIAL BLOOD SPECIMEN Order[facility] Facility: [facility] Address: [address] [place] [address] Result Comment: Carb oxyhemoglobin Reference Range for Smokers: 2.0-8.0% Performed By: #### A LLBG #### [facility] CLIA [id number] [address] [place] [address] [place] Chloride [Moles/Vol] 102 mmol/L Normal 97-105 [facility] Comment on above: Order Comment: Speci men Type: ARTERIAL BLOOD SPECIMEN [facility]: [facility] Address: [address] [place] [address] Performed By: #### A LLBG #### [facility] CLIA [id number] [address] [place] [address] [place] CO2 (Bld) [Partial pressure] 43 mm Hg Normal 36-46 [facility] Comment on above: Order Comment: Speci men Type: ARTERIAL BLOOD SPECIMEN Order[facility] Facility: [facility] Address: [address] [place] [address] Performed By: #### A LLBG #### [facility] CLIA [id number] [address] [place] [address] [place] CO2 adjusted to patient's actual temperature (Bld) [Partial pressure] Normal [facility] Comment on above: Order Comment: Speci men Type: ARTERIAL BLOOD SPECIMEN Order[facility] Facility: [facility] Address: [address] [place] [address] Performed By: #### A LLBG #### [facility] CLIA [id number] [address] [place] [address] [place] Glucose [Mass/Vol] 214 mg/dL High 60-105 [facility] Comment on above: Order Comment: Speci men Type: ARTERIAL BLOOD SPECIMEN Ordering Facility: [facility] Address: [address] [place] [address] Performed By: #### A LLBG #### [facility] CLIA [id number] [address] [place] [address] [place] HCO3 (Bld) [Moles/Vol] 22 mmol/L Normal 22-26 [facility] Comment on above: Order Comment: Speci men Type: ARTERIAL BLOOD SPECIMEN Ordering Facility: [facility] Address: [address] [place] [address] Performed By: #### A LLBG #### [facility] CLIA [id number] [address] [place] [address] [place] Hematocrit (Bld) [Volume fraction] 33.9 % Low 39.0-51.0 [facility] Comment on above: Order Comment: Speci men Type: ARTERIAL BLOOD SPECIMEN Ordering Facility: [facility] Address: [address] [place] [address] Performed By: #### A LLBG #### [facility] CLIA [id number] [address] [place] [address] [place] Hemoglobin (Bld) [Mass/Vol] 11.0 g/dL Low 13.0-17.0 [facility] Comment on above: Order Comment: Speci men Type: ARTERIAL BLOOD SPECIMEN Ordering Facility: [facility] Address: [address] [place] [address] Performed By: #### A LLBG #### [facility] CLIA [id number] [address] [place] [address] [place] Lactate [Moles/Vol] 2.2 mmol/L Normal 0.5-2.2 [facility] Comment on above: Order Comment: Speci men Type: ARTERIAL BLOOD SPECIMEN Ordering Facility: [facility] Address: [address] [place] [address] Performed By: #### A LLBG #### [facility] CLIA [id number] [address] [place] [address] [place] Methemoglobin (Bld) [Mass fraction] 0.9 % Normal 0.0-1.5 [facility] Comment on above: Order Comment: Speci men Type: ARTERIAL BLOOD SPECIMEN Ordering Facility: [facility] Address: [address] [place] [address] Performed By: #### A LLBG #### [facility] CLIA [id number] [address] [place] [address] [place] Oxygen (Bld) [Partial pressure] 169 mm Hg High 85-95 [facility] Comment on above: Order Comment: Speci men Type: ARTERIAL BLOOD SPECIMEN Ordering Facility: [facility] Address: [address] [place] [address] Performed By: #### A LL[facility] #### [facility] CLIA [id number] [address] [place] [address] [place] Oxygen adjusted to patient's actual temperature (Bld) [Partial pressure] Normal [facility] Comment on above: Order Comment: Speci men Type: ARTERIAL BLOOD SPECIMEN Ordering Facility: [facility] Address: [address] [place] [address] Performed By: #### A LL[facility] #### [facility] CLIA [id number] [address] [place] [address] [place] Oxyhemoglobin (BldA) [Mass fraction] 97 % Normal 95-98 [facility] Comment on above: Order Comment: Speci men Type: ARTERIAL BLOOD SPECIMEN Ordering Facility: [facility] Address: [address] [place] [address] Performed By: #### A LL[facility] #### [facility] CLIA [id number] [address] [place] [address] [place] pH (Bld) 7.34 [pH] Low 7.35-7.45 [facility] Comment on above: Order Comment: Speci men Type: ARTERIAL BLOOD SPECIMEN Ordering Facility: [facility] Address: [address] [place] [address] Performed By: #### A LL[facility] #### [facility] CLIA [id number] [address] [place] [address] [place] pH adjusted to patient's actual temperature (Bld) Normal [facility] Comment on above: Order Comment: Speci men Type: ARTERIAL BLOOD SPECIMEN Ordering Facility: [facility] Address: [address] [place] [address] Performed By: #### A LLBG #### [facility] CLIA [id number] [address] [place] [address] [place] Potassium [Moles/Vol] 5.9 mmol/L High 3.5-5.0 [facility] Comment on above: Order Comment: Speci men Type: ARTERIAL BLOOD SPECIMEN Ordering Facility: [facility] Address: [address] [place] [address] Performed By: #### A LLBG #### [facility] CLIA [id number] [address] [place] [address] [place] Sodium [Moles/Vol] 135 mmol/L Low 136-144 [facility] Comment on above: Order Comment: Speci men Type: ARTERIAL BLOOD SPECIMEN Ordering Facility: [facility] Address: [address] [place] [address] Performed By: #### A LLBG #### [facility] CLIA [id number] [address] [place] [address] [place] Base deficit (BldA) [Moles/Vol] -2 mmol/L Normal -2-0 [facility] Comment on above: Order Comment: Speci men Type: ARTERIAL BLOOD SPECIMEN Ordering Facility: [facility] Address: [address] [place] [address] Performed By: #### A LLBG #### [facility] CLIA [id number] [address] [place] [address] OF [place] Calcium.ionized (Bld) [Mass/Vol] 1.24 mmol/L Normal 1.08-1.30 [facility] Comment on above: Order Comment: Speci men Type: ARTERIAL BLOOD SPECIMEN Ordering Facility: [facility] Address: [address] [place] [address] Performed By: #### A LLBG #### [facility] CLIA [id number] [address] [place] [address] [place] OF [facility] Calcium.ionized adjusted to pH 7.4 (BldA) [Moles/Vol] 1.21 mmol/L Normal 1.08-1.30 [facility] Comment on above: Order Comment: Speci men Type: ARTERIAL BLOOD SPECIMEN Ordering Facility: [facility] Address: [address] [place] [address] Performed By: #### A LLBG #### [facility] CLIA [id number] [address] [place] [address] [place] Carboxyhemoglobin (BldA) [Mass fraction] 1.5 % Normal 0.0-2.0 [facility] Comment on above: Order Comment: Speci men Type: ARTERIAL BLOOD SPECIMEN Ordering Facility: [facility] Address: [address] [place] [address] Result Comment: Carb oxyhemoglobin Reference Range for Smokers: 2.0-8.0% Performed By: #### A LLBG #### [facility] CLIA [id number] [address] [place] [address] [place] Chloride [Moles/Vol] 103 mmol/L Normal 97-105 [facility] Comment on above: Order Comment: Speci men Type: ARTERIAL BLOOD SPECIMEN Ordering Facility: [facility] Address: [address] [place] [address] Performed By: #### A LLBG #### [facility] CLIA [id number] [address] [place] [address] [place] CO2 (Bld) [Partial pressure] 43 mm Hg Normal 36-46 [facility] Comment on above: Order Comment: Speci men Type: ARTERIAL BLOOD SPECIMEN Ordering Facility: [facility] Address: [address] [place] [address] Performed By: #### A LLBG #### [facility] CLIA [id number] [address] [place] [address] [place] CO2 adjusted to patient's actual temperature (Bld) [Partial pressure] Normal [facility] Comment on above: Order Comment: Speci men Type: ARTERIAL BLOOD SPECIMEN Ordering Facility: [facility] Address: [address] [place] [address] Performed By: #### A LLBG #### [facility] CLIA [id number] [address] [place] [address] [place] Glucose [Mass/Vol] 183 mg/dL High 60-105 [facility] Comment on above: Order Comment: Speci men Type: ARTERIAL BLOOD SPECIMEN Ordering Facility: [facility] Address: [address] [place] [address] Performed By: #### A LLBG #### [facility] [place] [id number] [address] [place] [address] [place] HCO3 (Bld) [Moles/Vol] 23 mmol/L Normal 22-26 [facility] Comment on above: Order Comment: Speci men Type: ARTERIAL BLOOD SPECIMEN Ordering Facility: [facility] Address: [address] [place] [address] Performed By: #### A LLBG #### [facility] CLIA [id number] [address] [place] [address] [place] Hematocrit (Bld) [Volume fraction] 32.5 % Low 39.0-51.0 [facility] Comment on above: Order Comment: Speci men Type: ARTERIAL BLOOD SPECIMEN Ordering Facility: [facility] Address: [address] [place] [address] Performed By: #### A LLBG #### [facility] CLIA [id number] [address] [place] [address] [place] Hemoglobin (Bld) [Mass/Vol] 10.5 g/dL Low 13.0-17.0 [facility] Comment on above: Order Comment: Speci men Type: ARTERIAL BLOOD SPECIMEN Ordering Facility: [facility] Address: [address] [place] [address] Performed By: #### A LLBG #### [facility] CLIA [id number] [address] [place] [address] [place] Lactate [Moles/Vol] 1.8 mmol/L Normal 0.5-2.2 [facility] Comment on above: Order Comment: Speci men Type: ARTERIAL BLOOD SPECIMEN Ordering Facility: [facility] Address: [address] [place] [address] Performed By: #### A LLBG #### [facility] IA [id number] [address] [place] [address] [place] Methemoglobin (Bld) [Mass fraction] 0.6 % Normal 0.0-1.5 [facility] Comment on above: Order Comment: Speci men Type: ARTERIAL BLOOD SPECIMEN Ordering Facility: [facility] Address: [address] [place] [address] Performed By: #### A LLBG #### [facility] IA [id number] [address] [place] [address] [place] Oxygen (Bld) [Partial pressure] 168 mm Hg High 85-95 [facility] Comment on above: Order Comment: Speci men Type: ARTERIAL BLOOD SPECIMEN Ordering Facility: [facility] Address: [address] [place] [address] Performed By: #### A LLBG #### [facility] CLIA [id number] [address] [place] [address] [place] Oxygen adjusted to patient's actual temperature (Bld) [Partial pressure] Normal [facility] Comment on above: Order Comment: Speci men Type: ARTERIAL BLOOD SPECIMEN Ordering Facility: [facility] Address: [address] [place] [address] Performed By: #### A LLBG #### [facility] CLIA [id number] [address] [place] [address] [place] Oxyhemoglobin (BldA) [Mass fraction] 97 % Normal 95-98 [facility] Comment on above: Order Comment: Speci men Type: ARTERIAL BLOOD SPECIMEN Ordering Facility: [facility] Address: [address] [place] [address] Performed By: #### A LLBG #### [facility] CLIA [id number] [address] [place] [address] [place] pH (Bld) 7.35 [pH] Normal 7.35-7.45 [facility] Comment on above: Order Comment: Speci men Type: ARTERIAL BLOOD SPECIMEN Ordering Facility: [facility] Address: [address] [place] [address] Performed By: #### A LLBG #### [facility] CLIA [id number] [address] [place] [address] [place] pH adjusted to patient's actual temperature (Bld) Normal [facility] Comment on above: Order Comment: Speci men Type: ARTERIAL BLOOD SPECIMEN Ordering Facility: [facility] Address: [address] [place] [address] Performed By: #### A LLBG #### [facility] CLIA [id number] [address] [place] [address] [place] Potassium [Moles/Vol] 5.9 mmol/L High 3.5-5.0 [facility] Comment on above: Order Comment: Speci men Type: ARTERIAL BLOOD SPECIMEN Ordering Facility: [facility] Address: [address] [place] [address] Performed By: #### A LLBG #### [facility] CLIA [id number] [address] [place] [address] [place] Sodium [Moles/Vol] 135 mmol/L Low 136-144 [facility] Comment on above: Order Comment: Speci men Type: ARTERIAL BLOOD SPECIMEN Ordering Facility: [facility] Address: [address] [place] [address] Performed By: #### A LLBG #### [facility] CLIA [id number] [place] [address] [place] Basic metabolic 2000 panelon 02-27-2025 Anion gap [Moles/Vol] 11 mmol/L Normal 8-15 [facility] Comment on above: Order Comment: Speci men Type: BLOOD SPECIMEN Ordering Facility: [facility] Address: [address] [place] [address] Performed By: #### 2 4321-2 #### [facility] CLIA [id number] [address] [place] [address] [place] Calcium [Mass/Vol] 8.3 mg/dL Low 8.5-10.2 [facility] Comment on above: Order Comment: Speci men Type: BLOOD SPECIMEN Ordering Facility: [facility] Address: [address] [place] [address] Performed By: #### 2 4321-2 #### [facility] CLIA [id number] [address] [place] [address] [place] Chloride [Moles/Vol] 102 mmol/L Normal 98-107 [facility] Comment on above: Order Comment: Speci men Type: BLOOD SPECIMEN Ordering Facility: [facility] Address: [address] [place] [address] Performed By: #### 2 4321-2 #### [facility] CLIA [id number] [address] [place] [address] [place] CO2 [Moles/Vol] 22 mmol/L Normal 22-30 [facility] Comment on above: Order Comment: Speci men Type: BLOOD SPECIMEN Ordering Facility: [facility] Address: [address] [place] [address] Performed By: #### 2 4321-2 #### [facility] CLIA [id number] [address] [place] [address] [place] Creatinine [Mass/Vol] 1.52 mg/dL High 0.73-1.22 [facility] Comment on above: Order Comment: Speci men Type: BLOOD SPECIMEN Ordering Facility: [facility] Address: [address] [place], [place] [address] Performed By: #### 2 4321-2 #### [facility] CLIA [id number] [address] [place] [address] [place] Creatinine and Glomerular filtration rate.predicted panel (S/P/Bld) 50 mL/min/1.73m??? Low >=60 [facility] Comment on above: Order Comment: Miguelina thomas Type: BLOOD SPECIMEN Ordering Facility: [facility] Address: [address] [place] [address] Result Comment: Samantha mated Glomerular Filtration Rate [...] GFR. Performed By: #### 2 4321-2 #### [facility] CLIA [id number] [address] [place] [address] [place] Glucose [Mass/Vol] 178 mg/dL High 74-99 [facility] Comment on above: Order Comment: Miguelina thomas Type: BLOOD SPECIMEN Ordering Facility: [facility] Address: [address] [place] [address] Result Comment: The [place] [employer] (ADA) provides guidance for cutoff [...] Standards of Medical Care in Diabetes 2016, [place] [employer]. Diabetes Care. 2016.39(Suppl 1). Performed By: #### 2 4321-2 #### [facility] CLIA [id number] [address] [place] [address] [place] Potassium [Moles/Vol] 5.4 mmol/L High 3.7-5.1 [facility] Comment on above: Order Comment: Speci men Type: BLOOD SPECIMEN Ordering Facility: [facility] Address: [address] [place] [address] Performed By: #### 2 4321-2 #### [facility] CLIA [id number] [address] [place] [address] [place] Sodium [Moles/Vol] 135 mmol/L Low 136-144 [facility] Comment on above: Order Comment: Speci men Type: BLOOD SPECIMEN Ordering Facility: [facility] Address: [address] [place] [address] Performed By: #### 2 4321-2 #### [facility] CLIA [id number] [address] [place] [address] [place] Urea nitrogen [Mass/Vol] 27 mg/dL High 9-24 [facility] Comment on above: Order Comment: Speci men Type: BLOOD SPECIMEN Ordering Facility: [facility] Address: [address] [place] [address] Performed By: #### 2 4321-2 #### [facility] CLIA [id number] [address] [place] [address] [place] CBC panel Auto (Bld)on 02-27 Erythrocyte distribution width (RBC) [Ratio] 16.7 % High 11.5-15.0 [facility] Comment on above: Order Comment: Speci men Type: BLOOD SPECIMEN Ordering Facility: [facility] Address: [address] [place] [address] Performed By: #### 5 8410-2 #### [facility] CLIA [id number] [place] [address] [place] Hematocrit (Bld) [Volume fraction] 32.1 % Low 39.0-51.0 [facility] Comment on above: Order Comment: Speci men Type: BLOOD SPECIMEN Ordering Facility: [facility] Address: [address] [place] [address] Performed By: #### 5 8410-2 #### [facility] CLIA [id number] [address] [place] [address] [place] Hemoglobin (Bld) [Mass/Vol] 10.3 g/dL Low 13.0-17.0 [facility] Comment on above: Order Comment: Speci men Type: BLOOD SPECIMEN Ordering Facility: [facility] Address: [address] [place] [address] Performed By: #### 5 8410-2 #### [facility] CLIA [id number] [address] [place] [address] [place] MCH (RBC) [Entitic mass] 24.7 pg Low 26.0-34.0 [facility] Comment on above: Order Comment: Speci men Type: BLOOD SPECIMEN Ordering Facility: [facility] Address: [address] [place] [address] Performed By: #### 5 8410-2 #### [facility] CLIA [id number] [address] [place] [address] [place] MCHC (RBC) [Mass/Vol] 32.1 g/dL Normal 30.5-36.0 [facility] Comment on above: Order Comment: Speci men Type: BLOOD SPECIMEN Ordering Facility: [facility] Address: [address] [place] [address] Performed By: #### 5 8410-2 #### [facility] CLIA [id number] [address] [place] [address] [place] MCV (RBC) [Entitic vol] 77.0 fL Low 80.0-100.0 [facility] Comment on above: Order Comment: Speci men Type: BLOOD SPECIMEN Ordering Facility: [facility] Address: [address] [place] [address] Performed By: #### 5 8410-2 #### [facility] CLIA [id number] [address] [place] [address] [place] Nucleated RBC (Bld) [#/Vol] 10*3/uL Normal <0.01 [facility] Comment on above: Order Comment: Speci men Type: BLOOD SPECIMEN Ordering Facility: [facility] Address: [address] [place] [address] Performed By: #### 5 8410-2 #### [facility] CLIA [id number] [address] [place] [address] [place] Platelet mean volume (Bld) [Entitic vol] 9.0 fL Normal 9.0-12.7 [facility] Comment on above: Order Comment: Speci men Type: BLOOD SPECIMEN Ordering Facility: [facility] Address: [address] [place] [address] Performed By: #### 5 8410-2 #### [facility] CLIA [id number] [place] [address] [place] Platelets (Bld) [#/Vol] 264 10*3/uL Normal 150-400 [facility] Comment on above: Order Comment: Speci men Type: BLOOD SPECIMEN Ordering Facility: [facility] Address: [address] [place] [address] Performed By: #### 5 8410-2 #### [facility] CLIA [id number] [address] [place] [address] [place] RBC (Bld) [#/Vol] 4.17 10*6/uL Low 4.20-6.00 [facility] Comment on above: Order Comment: Speci men Type: BLOOD SPECIMEN Ordering Facility: [facility] Address: [address] [place] [address] Performed By: #### 5 8410-2 #### [facility] CLIA [id number] [address] [place] [address] [place] WBC (Bld) [#/Vol] 13.92 10*3/uL High 3.70-11.00 [facility] Comment on above: Order Comment: Speci men Type: BLOOD SPECIMEN Ordering Facility: [facility] Address: [address] [place] [address] Performed By: #### 5 8410-2 #### [facility] CLIA [id number] [place] [address] [place] CNDSon 02-27-2025 CNDS HNO ID: [id number] Author: BING ARVIZU MD Service: Urology Author [...] known as: FLOMAX STOP taking these medications lisinopril-hydroCHLORO thiazide 20-12.5 mg per tablet Commonly known as: ZESTORETIC Where to Get Your Medications These medications were sent to [facility] [address] [place] [address] Hours: Monday-Monday: 7am-7pm, Sat: 9am-1pm acetaminophen 325 [...] 8% Length of Stay (d) 0 -7% [facility] -6% Admissions (60d) 0 -6% Observations (365d) 0 6% Admission Provider Speciality UROLOGY 5% Memo Scale N/A I have performed the qpwp-fy-lepx and relevant services for a total of >30 minutes. SIGNATURE: Tamanna Zhu APRN.CNP DATE: February 27, 2025 TIME: 12:52 PM Normal [facility] NURSING PROGon 02-27-2025 NURSING PROG HNO ID: [id number] Author: LATRICE HATHAWAY RN Service: Nursing Author Type: Registered Nurse Type: Nursing Progress Note Filed: 02/27/2025 18:39 Note Text: Transfer Note: PATIENT NAME: Skyler Le Patient Location: [place] [address] [address] Room: [place] [address] Patient transferred into room/unit PK312 in stable condition.[id number]. Actions taken: Oriented to unit,care and orders. murguia draining clear;yellow urine. IVF infusing patient stated had allergy to flomax. Had dizziness and back pain. Messaged added allergy. flomax not given Normal [facility] OPERATIVE NOon 02-27-2025 OPERATIVE NO HNO ID: [id number] Author: BING ARVIZU MD Service: Urology Author Type: Physician Type: Operative Report Filed: 02/27/2025 12:01 Note Text: OPERATIVE/PROCEDURE REPORT LOG ID: [id number] Surgery/Procedure Date: 02/27/2025 Incision/Procedure Start Time: 8:27 AM Incision Close/Procedure End Time: 12:20 PM Surgeon(s)/Procedurali st(s) and Hog Operator(s): Surgeons and Role: * Bing Arvizu MD - Primary * Dallas Bullard MD - Resident - Assisting Physician Hog Operator: Yovany Fountain PA-C Procedure(s): 1) left robotic [...] case. We then placed a 12-mm visitor use assistant port. The robot was then docked, [...] The robot was undocked. The 12-mm visitor use assistant port was decided to be our extraction site. The visitor use assistant port was then extended and the [...] lymph nodes Implantable Devices: None Drains: 16 Gambian Murguia catheter Complications: None Accidental Punctures/Lacerations: None SURGEON: MD MASON Tinoco (more content not included)... Normal [facility] Pathology biopsy report Carlos (Tiss)on 02-27-2025 AP DISCLAIMER Normal [facility] Comment on above: Order Comment: Speci men Type: TISSUE SPECIMEN Ordering Facility: [facility] Address: [address] [place] [address] Result Comment: Zahira craig Developed Test (LDT) Disclaimer: Performance characteristics of immunohistochemical, immunofluorescent, and chromogenic in-situ hybridization tests have been determined by the performing laboratory within [facility]'s Bing Magui [facility]ons Pathology and Laboratory Medicine Department ([facility], [facility], [facility], [facility], [facility], [facility], or [facility]) in a manner consistent with CLIA [...] appropriately. Performed By: #### 6 6121-5 #### [facility] CLIA [id number] [address] [place] [address] LABORATORY CLIA [id number] [address] [place] [address] BLOCK FOR ADDITIONAL BIOMARKERS/MOLECULAR STUDIES Normal [facility] Comment on above: Order Comment: Speci men Type: TISSUE SPECIMEN Ordering Facility: [facility] Address: [address] [place] [address] Result Comment: Carmen l metastasis: B16 Kidney primary: B6, B20 Performed By: #### 6 6121-5 #### [facility] CLIA [id number] [address] [place] [address] LABORATORY CLIA [id number] [address] [place] [address] CASE REPORT Normal [facility] Comment on above: Order Comment: Speci men Type: TISSUE SPECIMEN Ordering Facility: [facility] Address: [address] [place] [address] Result Comment: Surg ica Pathology Report Case: [id number] Authorizing Provider: Bing Arvizu MD Collected: 02/27/2025 11:37 AM Ordering Location: [facility] Received: 02/27/2025 12:13 PM Operating Room Pathologist: Shasta Middleton MD Specimens: A) - Lymph Node (Specify Site in Comments), para aortic lymph nodes B) - Kidney, Left, Resection, radical nephrectomy Performed By: #### 6 6121-5 #### [facility] CLIA [id number] [address] [place] [address] LABORATORY CLIA [id number] [address] [place] [address] CLINICAL HISTORY Normal [facility] Comment on above: Order Comment: Speci men Type: TISSUE SPECIMEN Ordering Facility: [facility] Address: [address] [place] [address] Result Comment: 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 Performed By: #### 6 6121-5 #### [facility] CLIA [id number] [address] [place] [address] LABORATORY CLIA [id number] [address] [place] [address] FINAL DIAGNOSIS Normal [facility] Comment on above: Order Comment: Speci men Type: TISSUE SPECIMEN Ordering Facility: [facility] Address: [address] [place] [address] Result Comment: A. L ymph nodes, para-aortic, [...] EDT Performed By: #### 6 6121-5 #### [facility] CLIA [id number] [address] [place] [address] LABORATORY CLIA [id number] [address] [place] [address] FINAL PERFORMING LAB Normal [facility] Comment on above: Order Comment: Speci men Type: TISSUE SPECIMEN Ordering Facility: [facility] Address: [address] [place] [address] Result Comment: Diag nostic interpretation performed at: [facility], [address] [place] [address] CLIA# [id number] Roofing Sales Representative: Zack Baez MD Performed By: #### 6 6121-5 #### [facility] CLIA [id number] [address] [place] [address] LABORATORY CLIA [id number] [address] [place] [address] GROSS DESCRIPTION Normal [facility] Comment on above: Order Comment: Speci men Type: TISSUE SPECIMEN Ordering Facility: [facility] Address: [address] [place] [address] Result Comment: A. L ymph Node (Specify [...] 2025 2:55 PM Gross examination performed at [facility], [address] [place] [address] B. Kidney, Left, Resection Received in formalin [...] medullary tissue is present. Photographs are taken. Elementary Reading Specialist sections are submitted as follows: B1 ureter [...] adjacent dissecting area from superior pole B12 sales representative church furniture cyst from superior and mid pole B13-B14 adrenal gland with disrupted and nodular areas B15-B16 hilar lymph node KSZ February 28, 2025 Gross [place] [address] Additional sections of mass are submitted in cassettes B17-B22. WE March 07, 2025 11:29 AM Gross examination performed at [facility], [address] [place] [address] Performed By: #### 6 6121-5 #### [facility] CLIA [id number] [address] [place], [place] [address] [address] [facility] CLIA [id number] [address] [place] [address] SYNOPTIC REPORT Normal [facility] Comment on above: Order Comment: Speci men Type: TISSUE SPECIMEN Ordering Facility: [facility] Address: [address] [place] [address] Result Comment: NIKKO EY: Nephrectomy KIDNEY: RESECTION [...] cysts Performed By: #### 6 6121-5 #### [facility] CLIA [id number] [address] [facility] [address] LABORATORY CLIA [id number] [address] TYPE + SCREENon 02-27-2025 ABO [facility] Comment on above: Order Comment: Speci men Type: BLOOD SPECIMENOrdering Facility: [facility] [facility] Address: [address] [place] [address] Performed By: #### T SCR ####[facility] BLOOD BANKCLIA [id number] [address] Rh Nom (Bld) Positive [facility] Comment on above: Order Comment: Speci men Type: BLOOD SPECIMENOrdering Facility: [facility] Address: [address] [place] [address] Performed By: #### T SCR ####[facility] BLOOD BANKCLIA [id number] [address] TYPE AND SCREEN EXPIRATION 03/02/2025 23:59 [facility] Comment on above: Order Comment: Speci men Type: BLOOD SPECIMENOrdering Facility: [facility] Address: [address] [place] [address] Performed By: #### T SCR ####[facility] BLOOD BANKCLIA [id number] [address] [place] CNPNon 02-10-2025 CNPN Normal [facility] ECG COMPLETEon 02-07-2025 ECG COMPLETE Normal [facility] Ferritin SerPl-mCncon 2024 Ferritin [Mass/Vol] 131.0 ng/mL Normal 30.3-565.7 [facility] Comment on above: Order Comment: Speci men Type: BLOOD SPECIMENOrdering Facility: [facility] Address: [address] [place] [address] Performed By: #### 2 276-4, 79865-1 ####[facility] LABCLIA [id number] [address] [place] HISTORY PHYSICALon HISTORY PHYSICAL Normal [facility] HbA1c (Bld)on 02-07-2025 Average glucose Estimated from glycated hemoglobin (Bld) [Mass/Vol] 108 mg/dL Normal [facility] Comment on above: Order Comment: Speci men Type: BLOOD SPECIMENOrdering Facility: [facility] Address: [address] [place] [address] Result Comment: eAG: (Estimated average glucose) is a calculated value from HgbA1c and is sales representative church furniture of the average blood glucose level in the last 2-3 month period. Performed By: #### 5 5454-3 ####[facility] LABIA [id number] [address] STATES OF [facility] HbA1c (Bld) [Mass fraction] 5.4 % Normal 4.3-5.6 [facility] Comment on above: Order Comment: Speci men Type: BLOOD SPECIMENOrdering Facility: [facility] Address: [address] [place] [address] Result Comment: Amer [place] Diabetes Association guidelines indicate that patients with HgbA1c in the range 5.7-6.4% are at increased risk for development of diabetes, and intervention by lifestyle modification may be beneficial. HgbA1c greater or equal to 6.5% is considered diagnostic of diabetes. Performed By: #### 5 5454-3 ####[facility] LABCLIA [id number] [place] [id number] [place] Iron and Iron binding capaci ty panelon 02-07-2025 Iron [Mass/Vol] 23 ug/dL Low 41-186 [facility] Comment on above: Order Comment: Speci men Type: BLOOD SPECIMENOrdering Facility: [facility] Address: [address] [place] [address] Performed By: #### 2 276-4, 88205-1 ####[facility] LABIA [id number] [address] Iron binding capacity [Mass/Vol] 247 ug/dL Normal 232-386 [facility] Comment on above: Order Comment: Speci men Type: BLOOD SPECIMENOrdering Facility: [facility] Address: [address] [place] [address] Performed By: #### 2 276-4, 61329-0 ####[facility] [id number] [address] Iron/TIBC [Molar ratio] 9.3 % Low 15.0-57.0 C [facility] Comment on above: Order Comment: Speci men Type: BLOOD SPECIMENOrdering Facility: [facility] Address: [address] [place] [address] Performed By: #### 2 276-4, 41218-6 ####[facility] LABIA [id number] [address] [place] BRIEF OP NOTon 01-24-2025 BRIEF OP NOT Normal [facility] Bacteria Ur Culton Bacteria identified Cx Nom (U) ORGANISM ID: 1 <10,000 CFU/ml Normal urogenital rudy Normal [facility] Comment on above: Performed By: #### 6 30-4 ####[facility] LABIA [id number] [place] [id number] [place] CBC W Auto Differential pane l (Bld)on 01-24-2025 Basophils (Bld) [#/Vol] 0.07 10*3/uL Normal <0.11 [facility] Comment on above: Order Comment: Speci men Type: BLOOD SPECIMENOrdering Facility: [facility] Address: [address] [place] [address] Performed By: #### 5 7021-8 ####[facility] LABCLIA [id number] [address] [place] [address] [place] Basophils/100 WBC (Bld) 0.5 % Normal [facility] Comment on above: Order Comment: Speci men Type: BLOOD SPECIMENOrdering Facility: [facility] Address: [address] [place] [address] Performed By: #### 5 7021-8 ####[facility] LABCLIA [id number] [address], [place] [address] [place] Differential cell count method Nom (Bld) Auto Normal [facility] Comment on above: Order Comment: Speci men Type: BLOOD SPECIMENOrdering Facility: [facility] Address: [address] [place] [address] Performed By: #### 5 7021-8 ####[facility] LABCLIA [id number] [place] [address] [place] Eosinophils (Bld) [#/Vol] 0.09 10*3/uL Normal <0.46 [facility] Comment on above: Order Comment: Speci men Type: BLOOD SPECIMENOrdering Facility: [facility] Address: [address] [place] [address] Performed By: #### 5 7021-8 ####[facility] LABCLIA [id number] [place] [id number] [place] Eosinophils/100 WBC (Bld) 0.7 % Normal [facility] Comment on above: Order Comment: Speci men Type: BLOOD SPECIMENOrdering Facility: [facility] Address: [address] [place] [address] Performed By: #### 5 7021-8 ####[facility] LABCLIA [id number] [place] [address] [place] Erythrocyte distribution width (RBC) [Ratio] 15.0 % Normal 11.5-15.0 [facility] Comment on above: Order Comment: Speci men Type: BLOOD SPECIMENOrdering Facility: [facility] Address: [address] [place] [address] Performed By: #### 5 7021-8 ####[facility] LABIA [id number] [place] [address] [place] Hematocrit (Bld) [Volume fraction] 35.9 % Low 39.0-51.0 [facility] Comment on above: Order Comment: Speci men Type: BLOOD SPECIMENOrdering Facility: [facility] Address: [address] [place] [address] Performed By: #### 5 7021-8 ####[facility] LABIA [id number] [place] [address] [place] Hemoglobin (Bld) [Mass/Vol] 11.1 g/dL Low 13.0-17.0 [facility] Comment on above: Order Comment: Speci men Type: BLOOD SPECIMENOrdering Facility: [facility] Address: [address] [place] [address] Performed By: #### 5 7021-8 ####[facility] LABIA [id number] [place] [address] [place] Immature granulocytes (Bld) [#/Vol] 0.09 10*3/uL Normal <0.10 [facility] Comment on above: Order Comment: Speci men Type: BLOOD SPECIMENOrdering Facility: [facility] Address: [address] [place] [address] Performed By: #### 5 7021-8 ####[facility] LABIA [id number] [place] [address] [place] Immature granulocytes/100 WBC (Bld) 0.7 % Normal [facility] Comment on above: Order Comment: Speci men Type: BLOOD SPECIMENOrdering Facility: [facility] Address: [address] [place] [address] Performed By: #### 5 7021-8 ####[facility] LABCLIA [id number] [place] [address] [place] Lymphocytes (Bld) [#/Vol] 1.32 10*3/uL Normal 1.00-4.00 [facility] Comment on above: Order Comment: Speci men Type: BLOOD SPECIMENOrdering Facility: [facility] Address: [address] [place] [address] Performed By: #### 5 7021-8 ####[facility] LABCLIA [id number] [place] [address] [place] Lymphocytes/100 WBC (Bld) 10.3 % Normal [facility] Comment on above: Order Comment: Speci men Type: BLOOD SPECIMENOrdering Facility: [facility] Address: [address] [place] [address] Performed By: #### 5 7021-8 ####[facility] LABCLIA [id number] [place] [address] [place] MCH (RBC) [Entitic mass] 24.5 pg Low 26.0-34.0 [facility] Comment on above: Order Comment: Speci men Type: BLOOD SPECIMENOrdering Facility: [facility] Address: [address] [place] [address] Performed By: #### 5 7021-8 ####[facility] LABCLIA [id number] [place] [address] [place] MCHC (RBC) [Mass/Vol] 30.9 g/dL Normal 30.5-36.0 [facility] Comment on above: Order Comment: Speci men Type: BLOOD SPECIMENOrdering Facility: [facility] Address: [address] [place] [address] Performed By: #### 5 7021-8 ####[facility] LABCLIA [id number] [place] [address] [place] MCV (RBC) [Entitic vol] 79.2 fL Low 80.0-100.0 C [facility] Comment on above: Order Comment: Speci men Type: BLOOD SPECIMENOrdering Facility: [facility] Address: [address] [place] [address] Performed By: #### 5 7021-8 ####[facility] LABCLIA [id number] [place] [address] [place] Monocytes (Bld) [#/Vol] 1.09 10*3/uL High <0.87 [facility] Comment on above: Order Comment: Speci men Type: BLOOD SPECIMENOrdering Facility: [facility] Address: [address] [place] [address] Performed By: #### 5 7021-8 ####[facility] LABIA [id number] [place] [address] [place] Monocytes/100 WBC (Bld) 8.5 % Normal [facility] Comment on above: Order Comment: Speci men Type: BLOOD SPECIMENOrdering Facility: [facility] Address: [address] [place] [address] Performed By: #### 5 7021-8 ####[facility] LABIA [id number] [place] [address] [place] Neutrophils (Bld) [#/Vol] 10.14 10*3/uL High 1.45-7.50 [facility] Comment on above: Order Comment: Speci men Type: BLOOD SPECIMENOrdering Facility: [facility] Address: [address] [place] [address] Performed By: #### 5 7021-8 ####[facility] LABIA [id number] [place] [address] [place] Neutrophils/100 WBC (Bld) 79.3 % Normal [facility] Comment on above: Order Comment: Speci men Type: BLOOD SPECIMENOrdering Facility: [facility] Address: [address] [place] [address] Performed By: #### 5 7021-8 ####[facility] LABCLIA [id number] [facility] [address] [place] [address] [place] Nucleated RBC (Bld) [#/Vol] 10*3/uL Normal <0.01 [facility] Comment on above: Order Comment: Speci men Type: BLOOD SPECIMENOrdering Facility: [facility] Address: [address] [place] [address] Performed By: #### 5 7021-8 ####[facility] LABCLIA [id number] [facility] [address], [place] [address] [place] Nucleated RBC/100 WBC (Bld) [Ratio] 0.0 /100 WBC Normal [facility] Comment on above: Order Comment: Speci men Type: BLOOD SPECIMENOrdering Facility: [facility] Address: [address] [place] [address] Performed By: #### 5 7021-8 ####[facility] LABCLIA [id number] [address], [facility] [place] Platelet mean volume (Bld) [Entitic vol] 9.7 fL Normal 9.0-12.7 [facility] Comment on above: Order Comment: Speci men Type: BLOOD SPECIMENOrdering Facility: [facility] Address: [address] [place] [address] Performed By: #### 5 7021-8 ####[facility] LABIA [id number] [place] [id number] [place] Platelets (Bld) [#/Vol] 310 10*3/uL Normal 150-400 [facility] Comment on above: Order Comment: Speci men Type: BLOOD SPECIMENOrdering Facility: [facility] Address: [address] [place], [place] [address] Performed By: #### 5 7021-8 ####[facility] LABCLIA [id number] [place] [address] [place] RBC (Bld) [#/Vol] 4.53 10*6/uL Normal 4.20-6.00 [facility] Comment on above: Order Comment: Speci men Type: BLOOD SPECIMENOrdering Facility: [facility] Address: [address] [place] [address] Performed By: #### 5 7021-8 ####[facility] LABCLIA [id number] [place] [address] [place] WBC (Bld) [#/Vol] 12.80 10*3/uL High 3.70-11.00 [facility] Comment on above: Order Comment: Speci men Type: BLOOD SPECIMENOrdering Facility: [facility] Address: [address] [place] [address] Performed By: #### 5 7021-8 ####[facility] LABIA [id number] [address] [place] BLOOD TYPEon 025 ABO O Normal [facility] Comment on above: Order Comment: Speci men Type: BLOOD SPECIMENOrdering Facility: [facility] Address: [address] [place] [address] Performed By: #### C ONABO ####[facility] BLOOD BANKCLIA [id number] [place] [address] [place] Rh Nom (Bld) Positive Normal [facility] Comment on above: Order Comment: Speci men Type: BLOOD SPECIMENOrdering Facility: [facility] Address: [address] [place] [address] Performed By: #### C ONABO ####[facility] BLOOD BANKCLIA [id number] [place] [address] [place] Comprehensive metabolic 2000 panelon 01-24-2025 Albumin [Mass/Vol] 3.8 g/dL Low 3.9-4.9 [facility] Comment on above: Order Comment: Speci men Type: BLOOD SPECIMENOrdering Facility: [facility] Address: [address] [place] [address] Performed By: #### 2 4323-8 ####[facility] LABCLIA [id number] [facility] [place] [address] [place] ALP [Catalytic activity/Vol] 66 U/L Normal 38-113 [facility] Comment on above: Order Comment: Speci men Type: BLOOD SPECIMENOrdering Facility: [facility] Address: [address] [place] [address] Performed By: #### 2 4323-8 ####[facility] LABCLIA [id number] [facility] [place] [address] [place] ALT [Catalytic activity/Vol] 8 U/L Low 10-54 [facility] Comment on above: Order Comment: Speci men Type: BLOOD SPECIMENOrdering Facility: [facility] Address: [address] [place] [address] Performed By: #### 2 4323-8 ####[facility] LABCLIA [id number] [facility] [place] [address] [place] Anion gap [Moles/Vol] 11 mmol/L Normal 8-15 [facility] Comment on above: Order Comment: Speci men Type: BLOOD SPECIMENOrdering Facility: [facility] Address: [address] [place] [address] Performed By: #### 2 4323-8 ####[facility] LABCLIA [id number] [facility] [place] [address] [place] AST [Catalytic activity/Vol] 12 U/L Low 14-40 [facility] Comment on above: Order Comment: Speci men Type: BLOOD SPECIMENOrdering Facility: [facility] Address: [address] [place] [address] Performed By: #### 2 4323-8 ####[facility] LABCLIA [id number] [place] [id number] [place] Bilirubin [Mass/Vol] 0.4 mg/dL Normal 0.2-1.3 [facility] Comment on above: Order Comment: Speci men Type: BLOOD SPECIMENOrdering Facility: [facility] Address: [address] [place] [address] Performed By: #### 2 4323-8 ####[facility] LABCLIA [id number] [place] [address] [place] Calcium [Mass/Vol] 9.2 mg/dL Normal 8.5-10.2 [facility] Comment on above: Order Comment: Speci men Type: BLOOD SPECIMENOrdering Facility: [facility] Address: [address] [place] [address] Performed By: #### 2 4323-8 ####[facility] LABCLIA [id number] [place] [id number] [place] Chloride [Moles/Vol] 98 mmol/L Normal 98-107 [facility] Comment on above: Order Comment: Speci men Type: BLOOD SPECIMENOrdering Facility: [facility] Address: [address] [place] [address] Performed By: #### 2 4323-8 ####[facility] LABCLIA [id number] [place] [id number] [place] CO2 [Moles/Vol] 28 mmol/L Normal 22-30 [facility] Comment on above: Order Comment: Speci men Type: BLOOD SPECIMENOrdering Facility: [facility] Address: [address] [place] [address] Performed By: #### 2 4323-8 ####[facility] LABCLIA [id number] [place] [id number] [place] Creatinine [Mass/Vol] 1.44 mg/dL High 0.73-1.22 [facility] Comment on above: Order Comment: Miguelina thomas Type: BLOOD SPECIMENOrdering Facility: [facility] Address: [address] [place] [address] Performed By: #### 2 4323-8 ####[facility] LABCLIA [id number] [place] [address] [place] Creatinine and Glomerular filtration rate.predicted panel (S/P/Bld) 54 mL/min/1.73m??? Low >=60 [facility] Comment on above: Order Comment: Miguelina thomas Type: BLOOD SPECIMENOrdering Facility: [facility] Address: [address] [place] [address] Result Comment: Samantha mated Glomerular Filtration Rate [...] actual GFR. Performed By: #### 2 4323-8 ####[facility] LABCLIA [id number] [place] [address] [place] Glucose [Mass/Vol] 112 mg/dL High 74-99 [facility] Comment on above: Order Comment: Miguelina thomas Type: BLOOD SPECIMENOrdering Facility: [facility] Address: [address] [place] [address] Result Comment: The [place] Diabetes Association (ADA) provides guidance for cutoff values for fasting glucose and random glucose. The ADA defines fasting as no caloric intake for at least 8 hours. Fasting plasma glucose results between 100 to 125 mg/dL indicate increased risk for diabetes (prediabetes).Fasting plasma glucose results greater than or equal to 126 mg/dL meet the criteria for diagnosis of diabetes. In the absence of unequivocal hyperglycemia, results should be confirmed by repeat testing. In a patient with classic symptoms of hyperglycemia or hyperglycemic crisis, random plasma glucose results greater than or equal to 200 mg/dL meet the criteria for diagnosis of diabetes.Reference: Standards of Medical Care in Diabetes 2016, [place] Diabetes Association. Diabetes Care. 2016.39(Suppl 1). Performed By: #### 2 4323-8 ####[facility] LABCLIA [id number] [address] [address] [place] Potassium [Moles/Vol] 4.5 mmol/L Normal 3.7-5.1 [facility] Comment on above: Order Comment: Speci men Type: BLOOD SPECIMENOrdering Facility: [facility] Address: [address] [place], [place] [address] Performed By: #### 2 4323-8 ####[facility] LABCLIA [id number] [address] [address] [place] Protein [Mass/Vol] 7.6 g/dL Normal 6.3-8.0 [facility] Comment on above: Order Comment: Speci men Type: BLOOD SPECIMENOrdering Facility: [facility] Address: [address] [place], [place] [address] Performed By: #### 2 4323-8 ####[facility] LABCLIA [id number] [address] [address] [place] Sodium [Moles/Vol] 137 mmol/L Normal 136-144 [facility] Comment on above: Order Comment: Speci men Type: BLOOD SPECIMENOrdering Facility: [facility] Address: [address] [place], [place] [address] Performed By: #### 2 4323-8 ####[facility] LABCLIA [id number] [address] [address] [place] Urea nitrogen [Mass/Vol] 24 mg/dL Normal 9-24 [facility] Comment on above: Order Comment: Speci men Type: BLOOD SPECIMENOrdering Facility: [facility] Address: [address] [place] [address] Performed By: #### 2 4323-8 ####[facility] LABCLIA [id number] [place] [id number] [place] HISTORY PHYSICALon HISTORY PHYSICAL Normal [facility] NURSING PROGon 01-24-2025 NURSING PROG Normal [facility] PT EDon 01-24-2025 PT ED Normal [facility] PT panel Coag (PPP)on 2024 INR Coag (PPP) [Relative time] 1.1 {INR} Normal 0.9-1.3 [facility] Comment on above: Order Comment: Speci men Type: BLOOD SPECIMENOrdering Facility: [facility] Address: [address] [place] [address] Result Comment: Leticia min K Antagonist (VKA) Therapeutic Range: INR 2 to 3 (Target INR of 2.5)Note: For patients treated with VKA drugs, such as warfarin, the [place] [employer] 2012 Guideline recommends a therapeutic INR range of 2 to 3 (target INR of 2.5). This recommendation includes high-risk patients with antiphospholipid syndrome with previous arterial or venous thromboembolism, current-generation mechanical or bioprosthetic aortic heart valve replacement.Note: Patients with mechanical aortic valve replacement and additional risk factors for thromboembolic events (atrial fibrillation, previous thromboembolism, LV dysfunction, hypercoagulable conditions) or an older generation mechanical AVR (i.e., ball in-Cage) or any mechanical MVR should have a INR therapeutic range of 2.5 to 3.5 (target INR of 3).Waqar GH, et al. Chest 2012, 141:7S-47SNishamarjit RA, et al. [facility] 2017, 70: 252-289 Performed By: #### 1 4979-9, 60548-2 ####[facility] LABCLIA [id number] [place] [id number] [place] PT Coag (PPP) [Time] 12.1 s Normal 9.7-13.0 [facility] Comment on above: Order Comment: Speci men Type: BLOOD SPECIMENOrdering Facility: [facility] Address: [address] [place] [id number] Performed By: #### 1 4979-9, 11783-6 ####[facility] LABCLIA [id number] [place] [id number] [facility] OF [place] Pathology biopsy report Carlos (Tiss)on 01-24-2025 AP DISCLAIMER Normal [facility] Comment on above: Order Comment: Speci men Type: TISSUE SPECIMENOrdering Facility: [facility] Address: [address] [place] [address] Result Comment: Zahira craig Developed Test (LDT) Disclaimer:Performance characteristics of immunohistochemical, immunofluorescent, and chromogenic in-situ hybridization tests have been determined by the performing laboratory within [facility]'s [facility] Pathology and Laboratory Medicine Department ([facility], [facility], [facility], [facility], [facility], [facility], or [facility]) in a manner consistent with CLIA requirements. One or more of these tests may not have been cleared or approved by the FDA. [facility] is regulated under CLIA as qualified to perform high-complexity testing. These tests are used for clinical purposes. These should not be regarded as investigational or for research. Positive and negative controls stain appropriately. Performed By: #### 6 6121-5 ####[facility] LABCLIA [id number] [address] [place] CASE REPORT Normal [facility] Comment on above: Order Comment: Speci men Type: TISSUE SPECIMENOrdering Facility: [facility] Address: [address] [place] [address] Result Comment: Surg ica Pathology Report Case: [id number] Provider: Bg Navas MD Collected: 01/24/2025 11:40 AMOrdering Location: [place] [address] Received: 01/24/2025 04:48 PMPathologist: Becky Cox MDSpecimen: Kidney, Mass, Left, Biopsy Performed By: #### 6 6121-5 ####[facility] LABCLIA [id number] [place] [id number] [place] CLINICAL HISTORY left renal lesion Normal C [facility] Comment on above: Order Comment: Speci men Type: TISSUE SPECIMENOrdering Facility: [facility] Address: [address] [place] [address] Performed By: #### 6 6121-5 ####[facility] [id number] [address] [place] DIAGNOSIS COMMENT Normal [facility] Comment on above: Order Comment: Speci men Type: TISSUE SPECIMENOrdering Facility: [facility] Address: [address] [place] [address] Result Comment: Immu nohistochemical stains to aid in classification of the tumor were performed on block A1 and demonstrates the following:PAX8: PositiveCAM5.2: PositiveCA 9: PositiveEMA: HymbmzzuG00: NegativeGATA3: NegativeThis immunophenotype, in conjunction with morphology supports the diagnosis of a renal cell carcinoma with tumor cell necrosis and sarcomatoid differentiation. Although definitive subtype of the tumor cannot be determined within this biopsy specimen due to the poorly differentiated nature of the tumor, overall, I would favor a clear cell renal cell carcinoma subtype.Additionally noted within the background renal parenchyma are [...] with Dr. Brandon Mitchell of medical kidney pathology.This case was reviewed at genitourinary pathology consensus conference on 01/28/25 and Dio Black C. Kao, S. Williamson, and Magui Spencer agree with the above interpretation. 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 See comment. at 1113 EDT Performed By: #### 6 6121-5 ####[facility] LABCLIA [id number] [address] OF [facility] FINAL PERFORMING LAB Normal [facility] Comment on above: Order Comment: Speci men Type: TISSUE SPECIMENOrdering Facility: [facility] Address: [address] [place] [address] Result Comment: Diag nostic interpretation performed at: [facility], [address] [place] [address] CLIA# [id number] Director: Zack Baez MD Performed By: #### 6 6121-5 ####[facility] LABCLIA [id number] [address] GROSS DESCRIPTION Normal [facility] Comment on above: Order Comment: Speci men Type: TISSUE SPECIMENOrdering Facility: [facility] Address: [address] [place] [address] Result Comment: Mayte mena, Mass, Left, BiopsyReceived in formalin are multiple segments of cylindrical tissue aggregating to 2.0 x 0.4 x 0.1 cm, sabillon and of a soft and friable consistency. Totally submitted in one cassette.Gross examination performed at [facility], [address] [place], [place] [address]JT 01/24/2025 5:57 PM Performed By: #### 6 6121-5 ####[facility] LABCLIA [id number] [address] OF [place] MICROSCOPIC DESCRIPTION Normal [facility] Comment on above: Order Comment: Speci men Type: TISSUE SPECIMENOrdering Facility: [facility] Address: [address] [place] [address] Result Comment: Slid es reveal 4 cores [...] is seen. Performed By: #### 6 6121-5 ####[facility] LABCLIA [id number] [place] [address] [place] TYPE + SCREENon 01-24-2025 ABO O Normal [facility] Comment on above: Order Comment: Speci men Type: BLOOD SPECIMENOrdering Facility: [facility] Address: [address] [place] [address] Performed By: #### T SCR ####[facility] BLOOD BANKIA [id number] [place] [address] [place] Rh Nom (Bld) Positive Normal [facility] Comment on above: Order Comment: Speci men Type: BLOOD SPECIMENOrdering Facility: [facility] Address: [address] [place] [address] Performed By: #### T SCR ####[facility] BLOOD BANKIA [id number] [place] [address] [place] TYPE AND SCREEN EXPIRATION 01/27/2025 23:59 Normal [facility] Comment on above: Order Comment: Speci men Type: BLOOD SPECIMENOrdering Facility: [facility] Address: [address] [place] [address] Performed By: #### T SCR ####[facility] BLOOD BANKIA [id number] [place] [address] [place] US BIOPSY RENALon 01-24-2025 US BIOPSY RENAL Normal [facility] aPTT PPPon 01-24-2025 aPTT Coag (PPP) [Time] 31.6 s Normal 23.0-32.4 [facility] Comment on above: Order Comment: Speci men Type: BLOOD SPECIMENOrdering Facility: [facility] Address: [address] [place] [address] Performed By: #### 1 4979-9, 96532-1 ####[facility] LABCLMARK [id number] [place] [address] [place] NURSING PROGon 01-20-2025 NURSING PROG Normal [facility] CNPNon 01-09-2025 [facility]N [facility] SKYLER LE ([id number]) 1960 M Date Time Provider Department 01/09/25 [...] Encounter Status:Closed by ORQUIDEA TERRAZAS on 01/09/25 [facility] Basic metabolic 2000 panelon 01-03-2025 Anion gap [Moles/Vol] 15 mmol/L 8 - 15 mmol/L [facility] Calcium [Mass/Vol] 8.8 mg/dL 8.5 - 10. 2 mg/dL [facility] Chloride [Moles/Vol] 100 mmol/L 98 - 10 7 mmol/L [facility] CO2 [Moles/Vol] 23 mmol/L 22 - 30 mmol/L [facility] Creatinine [Mass/Vol] 1.46 mg/dL High 0.73 - 1.22 mg/dL [facility] GFR/1.73 sq M.predicted among non-blacks MDRD (S/P/Bld) [Vol rate/Area] 53 mL/min/{1.73_m2} Low - PINF [facility] Comment on above: Estimated Glomerular Filtration Rate [...] 115 mg/dL High 74 - 99 mg/dL [facility] Comment on above: The [place] Diabete s Association (ADA) provides guidance for [...] Standards of Medical Care in Diabetes 2016, [place] Diabetes Association. Diabetes Care. 2016.39(Suppl 1). Interpretation and review of laboratory results Abnormal [facility] Potassium [Moles/Vol] 4 mmol/L 3.7 - 5.1 mmol/L [facility] Sodium [Moles/Vol] 138 mmol/L 136 - 144 mmol/L [facility] Urea nitrogen [Mass/Vol] 18 mg/dL 9 - 24 mg/dL [facility] Anion gap [Moles/Vol] 15 mmol/L Normal 8-15 [facility] Comment on above: Order Comment: Miguelina thomas Type: BLOOD SPECIMEN [facility] Address: [address] [place] [address] Performed By: #### 2 4321-2 #### [facility] [place] [id number] [place], [place] [address] [place] Calcium [Mass/Vol] 8.8 mg/dL Normal 8.5-10.2 [facility] Comment on above: Order Comment: Speci men Type: BLOOD SPECIMEN [facility] Address: [address] [place] [address] Performed By: #### 2 4321-2 #### [facility] CLIA [id number] [place] [address] [place] Chloride [Moles/Vol] 100 mmol/L Normal 98-107 [facility] Comment on above: Order Comment: Speci men Type: BLOOD SPECIMEN [facility] Address: [address] [place] [address] Performed By: #### 2 4321-2 #### [facility] CLIA [id number] [address] [place] [address] [place] CO2 [Moles/Vol] 23 mmol/L Normal 22-30 [facility] Comment on above: Order Comment: Speci men Type: BLOOD SPECIMEN [facility] Address: [address] [place] [address] Performed By: #### 2 4321-2 #### [facility] CLIA [id number] [address] [place] [address] [place] Creatinine [Mass/Vol] 1.46 mg/dL High 0.73-1.22 [facility] Comment on above: Order Comment: Speci men Type: BLOOD SPECIMEN [facility] Address: [address] [place] [address] Performed By: #### 2 4321-2 #### [facility] CLIA [id number] [address] [place] [address] [place] Creatinine and Glomerular filtration rate.predicted panel (S/P/Bld) 53 mL/min/1.73m??? Low >=60 [facility] Comment on above: Order Comment: Speci men Type: BLOOD SPECIMEN [facility] Address: [address] [place] [address] Result Comment: Samantha mated Glomerular Filtration Rate [...] GFR. Performed By: #### 2 4321-2 #### [facility] CLIA [id number] [place] [address] [place] Glucose [Mass/Vol] 115 mg/dL High 74-99 [facility] Comment on above: Order Comment: Miguelina thomas Type: BLOOD SPECIMEN [facility] Address: [address] [place] [address] Result Comment: The [place] Diabetes Association (ADA) provides guidance for cutoff [...] Standards of Medical Care in Diabetes 2016, [place] Diabetes Association. Diabetes Care. 2016.39(Suppl 1). Performed By: #### 2 4321-2 #### [facility] CLIA [id number] [address] [place] [address] [place] Potassium [Moles/Vol] 4.0 mmol/L Normal 3.7-5.1 [facility] Comment on above: Order Comment: Miguelina thomas Type: BLOOD SPECIMEN [facility] Address: [address] [place] [address] Performed By: #### 2 4321-2 #### [facility] CLIA [id number] [place] [address] [place] Sodium [Moles/Vol] 138 mmol/L Normal 136-144 [facility] Comment on above: Order Comment: Ryliei men Type: BLOOD SPECIMEN [facility] Address: [address] [place] [id number] Performed By: #### 2 4321-2 #### [facility] CLIA [id number] [address] [place] [id number] [place] Urea nitrogen [Mass/Vol] 18 mg/dL Normal 9-24 [facility] Comment on above: Order Comment: Speci men Type: BLOOD SPECIMEN [facility] Address: [address] [place] [id number] Performed By: #### 2 4321-2 #### [facility] CLIA [id number] [address] [place] [id number] [place] OF [facility] CNOVon 01-03-2025 CNOV Office Visit (URFMOB ) LESKYLER MYLES ([id number]) 1960 M Date Time Provider Department 01/03/25 2:20 PM BING ARVIZU During your visit today, we recorded the following information about you: Pulse Blood pressure 58/minute 149/70 Bing Arvizu MD 01/03/2025 3:11 PM Signed [facility] JENERA NEW PATIENT HISTORY AND PHYSICAL EXAM PATIENT [...] Lymphatic: No enlargement of neck, axillae, groin. Neurologic/Psychiatric : Oriented to time, oriented to place, oriented to person. No depression, no anxiety, no agitation. Musculosckeletal: Normal gait and station of head and neck Extr (more content not included)... Normal [facility] 01-03-2025 [facility] Telephone (IRRFV) SKYLER LE ([id number]) 1960 M Date Time Provider Department 01/03/25 BING ARVIZU During your visit today, we recorded the following information about you: Mercy Walker 01/03/2025 3:48 PM Signed RADIOLOGY CALL CENTER INTAKE DATE: 01/03/2025 TIME: 3:46pm REQUESTING STAFF: Bing Arvizu MD PHONE/PAGER: [phone] SPECIFICS OF THE REQUEST: Renal Biopsy SPECIAL REQUESTS: TISSUE SAMPLE, LABWORK: N/A IS THIS REQUEST PART OF A RESEARCH PROTOCOL: No MEDICAL DIAGNOSIS: Neoplasm of uncertain behavior of left kidney TYPE AND DATE OF THE EXAM THAT IS THE BASIS OF THE REQUEST: CT Date: 12/14/2024 IMAGING: OUTSIDE [facility] Films: Where is study now: in patient's chart Note to all persons requesting biopsies: All biopsy requests will be scheduled as quickly as possible, based on the clinical urgency, availability of appointment times, the need to hold anti-thrombolytic therapy (aspirin, blood thinners) and the patient?s schedule, including the need for an available patrol driver. If a percutaneous biopsy or drainage [...] this procedure: intermediate-high risk. Reference from [facility]: [email or web address] STAFF SIGNATURE: Rivas Santana MD DATE: January [...] Encounter Status:Closed by JAMAR CARLTON on 01/06/25 [facility] Ambulatory Visit Summaryon 0 12-20-2024 Ambulatory Visit [...] mg Tab) fluoxetine (FLUoxetine 10 mg Cap) hydrochlorothiazide-li sinopril (hydrochlorothiazide-l isinopril 12.5 mg-20 mg Tab) metformin (metformin 1000 [...] Follow Up with KARLA JAMES, Nikolai Berry, BRIGID When: Where: [facility] [address], [place] [address]- Someone Will Contact You Regarding These Appointments [facility] External Ambulatory Referral, Service not offered at [facility], Urology, [facility], 12/20/24 8:54:00 EDT, Renal mass Medications What How Much When Instructions New dutasteride (dutasteride 0.5 mg Cap) 1 Capsules By Mouth Every day Duration: 30 Days Refills: 11 Pickup at [facility] #[id number] Unchanged allopurinol (allopurinol 300 mg Tab) By Mouth Contact prescribing physician if questions or concerns Unchanged ciprofloxacin (ciprofloxacin 500 mg Tab) Contact prescribing physician if questions or concerns Unchanged fluoxetine (FLUoxetine 10 mg Cap) 1 Capsules Contact prescribing physician if questions or concerns Unchanged hydrochlorothiazide-li sinopril (hydrochlorothiazide-l isinopril 12.5 mg-20 mg Tab) 1 Tablets Contact [...] physician if questions or concerns Pharmacy Information [facility] #[id number]: [address] [place], [place] [phone] Allergies No Known Medication Allergies Problems Ongoing [...] including vitamins, herbs, eye drops, creams, and tcha-jea-xmbuhpg medicines. ??? Any problems you or family [...] urinate (incontinen (more content not included)... Normal [facility] Urology Office/Clinic Noteon 12-20-2024 Urology Office/Clinic Note [...] for HG. CT AP w/wo con 12/14/24 [facility] - A 6.9 x 6.3 x 6.0 [...] immediate management. Unable to view image through [facility] portal, cannot assess if he would be [...] to lap robotic surgeon -Retrieve image from [facility] 2. BPH with obstruction/lower urinary tract symptoms [...] (K59.00: Constipation, unspecified) Has started taking fiber. [facility] flomax helped with his constipation. Educated pt on bladder/bowel regimen. -Aggressive bowel management Follow-up With When Contact Information KARLA JAMES, Nikolai Berry, URL [facility] [address], [place] [address]- Additional Instructions: f/u pending referral to surgeon Patient Education Transurethral Resection of the Prostate Benign Prostatic Hyperplasia Renal Mass I, Janeth Huynh, personally scribed for Dr. Acosta on 12/20/2024 08:52:10. . Documentation recorded by the scribgricelda, Janeth Huynh, accurately reflects the services(s) I performed and decisions made by me. Authenticated by Dr. Acosta on 12/20/2024 08:56:59. Problem List/Past Medical History Ongoing Benign hypertension (high blood pressure) BPH with obst (more content not included)... Normal [facility] Comment on above: Result Comment: Elec tronically Signed By: Nikolai ACOSTA MD\.br\Date and Time Signed: 12/20/24 08:57 EDT\.br\Electronically Co-Signed By: Janeth Huynh P\.br\Date and Time Co-Signed: 12/20/24 08:52 EDT\.br\Electronically Co-Signed By: Janeth Huynh P\.br\Date and Time Co-Signed: 12/20/24 08:55 EDT Jaren 11-11-2024 L -- ---- Specimen: [id number] Received: 11/12/24 Status: ARABELLA Refugio Num: [id number] Spec Type: Cytology Subm Dr: Nikolai Acosta MD Tissues: A URINECYTO (URINE) Procedures: Cyto Prepstain, PAPSTN ---- Age/ Patient Sex Location Account Attending Physician ---- Skyler Le 64/M [place] [id number] Nikolai Acosta MD ---- SPEC NUM: [id number] RECD: 11/12/24 STATUS: ARABELLA MACEDONamrata NUM: [id number] [place]: 11/11/24 [facility] DR: Nikolai Acosta MD ENTERED: 11/12/[address] [facility] DR: SPEC TYPE: Cytology DEPT: [facility] ENTERED BY: [id number] RECV BY: [id number] ORDERED: Cyto Prepstain, PAPSTN ORDERED: Cyto Prepstain, PAPSTN Pathological Diagnosis Cystoscopy urine: Negative for high-grade urothelial carcinoma. Clinical Information Cystoscopy Gross Description Received fresh is 60 ml pale yellow clear unfixed fluid for cytology said to have been obtained as Urine. ThinPrep preparations are prepared for microscopic examination. (YC/nh) CPT Codes 38328 ---- ---- Specimen: [id number] Received: 11/12/24 Status: ARABELLA Huff Num: [id number] Spec Type: Cytology Subm Dr: Nikolai Acosta MD Tissues: A URINECYTO (URINE) Procedures: Cyto Prepstain, PAPSTN ---- Patient: Skyler Le [id number] (Continued) ---- Signed (signature on file) Phylicia Beltran MD 11/12/24 1522 Normal [facility] C Urineon 10-26-2024 Bacteria identified Cx Nom (U) Microbiology PROCEDURE: Urine Culture [R1] SOURCE: U Random BODY SITE: COLLECTED DATE/TIME: 10/24/2024 09:29 EST RECEIVED DATE/TIME: 10/24/2024 17:59 EST START DATE/TIME: 10/24/2024 17:59 EST FREE TEXT SOURCE: NIRMALA MENJIVAR PA-C, PA-C, NIRMALA [place] FINAL REPORTS Final Report [] Verified Date/Time: 10/26/2024 09:28 EST No growth at 2 days. Performing Locations R1: This test was performed at: [facility], [address] [place] [address], [facility] , , [facility] Comment on above: Performed By: #### 2 [id number] #### [facility] Laboratory [address] [place] [address] Urology Office/Clinic Noteon 10-24-2024 Urology Office/Clinic Note [...] E&M of New Patient Moderate 45-59 Min 86976 Urine Culture 2. Constipation (K59.00: Constipation, unspecified) Recommended aggressive bowel management. Ordered: E&M of New Patient Moderate 45-59 Min 96338 3. BPH with obstruction/lower urinary tract symptoms [...] (N13.8: Other obstructive and reflux uropathy) Orders: sulfamethoxazole-trime thoprim, See Instructions, 24 tab(s), Refill(s) 0, 1 tab po BID x 7d, then 1 tab po QD x 10d, [facility][id number], 182, cm, 10/24/24 9:12:00 EST, Height/Length Dosing, 130, kg, 10/24/24 9:12:00 EST, Weight Dosing Follow-up With When Contact Information [facility] Additional Instructions: For procedure as scheduled. Patient Education Constipation, Adult Hematuria, Adult Problem List/Past Medical History Ongoing Benign hypertension (high blood pressure) BPH with obstruction/lower urinary tract symptoms Constipation Gross hematuria Prostate cancer screening Historical No qualifying data Procedure/Surgical History Colonoscopy. Medications allopurinol 300 mg Tab, Oral Bactrim D.S. 800 mg-160 mg Tab, See Instructions FLUoxetine 10 mg Cap, 10 mg= 1 cap(s) hydrochlorothiazide-li sinopril 12.5 mg-20 mg Tab, 1 tab(s) metformin 1000 mg Tab, 1000 mg= 1 tab (more content not included)... Normal [facility] Comment on above: Result Comment: Elec tronically Signed By: TIARA PAYTON, NIRMALA [place]\.br\Date and Time Signed: 10/24/24 13:53 EST Urine Cultureon 10-08-2024 Bacteria identified Cx Nom (U) No Growth 2 Days PERFORMED BY: [place] [address] PATHOLOGIST EMERGENCY VEHICLE OPERATIONS INSTRUCTOR PHYLICIA BELTRAN M.D. Normal [facility] Comment on above: Performed By: #### C UU #### [address] Urine cultureOrdered By: Suzanne Davalos on 10-08-2024 Bacteria identified Cx Nom (U) Urine culture [facility] CBC AUTO DIFFon 08-29-2022 BASO # 0.1 103/ul Normal 0.0-0.1 [facility] Comment on above: Performed By: #### C BC #### [facility] [address] [place] [address] Dr. Med Angulo Basophils/100 WBC (Bld) 0.6 % Normal 0.2-2.0 [facility] Comment on above: Performed By: #### C BC #### [facility] [address] [place] [address] Dr. Med Angulo EO # 0.2 103/ul Normal 0.0-0.7 [facility] Comment on above: Performed By: #### C BC #### [facility] [address] [place] [address] Dr. Med Angulo Eosinophils/100 WBC (Bld) 1.3 % Normal 0.9-7.0 [facility] Comment on above: Performed By: #### C BC #### [facility] [address] [place] [address] Dr. Med Angulo Erythrocyte distribution width (RBC) [Ratio] 13.8 % Normal 11.0-15.0 [facility] Comment on above: Performed By: #### C BC #### [facility] [address] [place] [address] Dr. Med Angulo Hematocrit (Bld) [Volume fraction] 40.6 % Critically low 42.0-54.0 [facility] Comment on above: Performed By: #### C BC #### [facility] [address] [place] [address] Dr. Med Angulo Hemoglobin (Bld) [Mass/Vol] 13.7 g/dL Critically low 14.0-18.0 [facility] Comment on above: Performed By: #### C BC #### [facility] [address] [place] [address] Dr. Med Angulo IG # 0.13 10e3/ul Critically high 0.00-0.03 [facility] Comment on above: Performed By: #### C BC #### [facility] [address] [place] [address] Dr. Med Angulo IG % 1.0 % Critically high 0.0-0.5 [facility] Comment on above: Performed By: #### C BC #### [facility] [address] [place] [address] Dr. Med Angulo LYMPH # 2.1 103/ul Normal 1.2-3.8 [facility] Comment on above: Performed By: #### C BC #### [facility] [address] [place] [address] Dr. Med Angulo Lymphocytes/100 WBC (Bld) 16.9 % Critically low 20.5-60.0 [facility] Comment on above: Performed By: #### C BC #### [facility] [address] [place] [address] Dr. Med Angulo MANUAL DIFF REQ NO Normal [facility] Comment on above: Performed By: #### C BC #### [facility] [address] [place] [address] Dr. Med Angulo MCH (RBC) [Entitic mass] 28.7 pg Normal 25.9-34.0 [facility] Comment on above: Performed By: #### C BC #### [facility] [address] [place] [address] Dr. Med Angulo MCHC (RBC) [Mass/Vol] 33.7 g/dL Normal 29.9-35.2 [facility] Comment on above: Performed By: #### C BC #### [facility] 90 [place] [address] Dr. Med Angulo MCV (RBC) [Entitic vol] 85.1 fL Normal 80.0-94.0 [facility] Comment on above: Performed By: #### C BC #### [facility] [address] [place] [address] Dr. Med Angulo MONO # 0.8 103/ul Normal 0.3-0.8 [facility] Comment on above: Performed By: #### C BC #### [facility] [address] [place] [address] Dr. Med Angulo Monocytes/100 WBC (Bld) 6.4 % Normal 1.7-12.0 [facility] Comment on above: Performed By: #### C BC #### [facility] [address] [place] [address] Dr. Med Angulo NEUT # 9.3 103/ul Critically high 1.4-6.5 [facility] Comment on above: Performed By: #### C BC #### [facility] [address] [place] [address] Dr. Med Angulo Neutrophils/100 WBC (Bld) 73.8 % Normal 43.0-75.0 [facility] Comment on above: Performed By: #### C BC #### [facility] [address] [place] [address] Dr. Med Angulo Platelet mean volume (Bld) [Entitic vol] 9.8 fL Normal 9.5-13.5 [facility] Comment on above: Performed By: #### C BC #### [facility] [address] [place] [address] Dr. Med Angulo PLT 292 103/ul Normal 150-450 [facility] Comment on above: Performed By: #### C BC #### [facility] [address] [place] [address] Dr. Med Angulo RBC 4.77 106/ul Normal 4.70-6.10 [facility] Comment on above: Performed By: #### C BC #### [facility] [address] [place] [address] Dr. Med Angulo WBC 12.6 103/ul Critically high 4.0-11.0 [facility] Comment on above: Performed By: #### C BC #### [facility] [address] [place] [address] Dr. Med Angulo GLYCOHEMOGLOBIN A1Con 2021 ADA RECOMMENDATION SEE BELOW Normal [facility] Comment on above: Result Comment: ADA RECOMMENDED LIMIT 4.0 - 6.0 ADA THERAPEUTIC TARGET < 7.0 ACTION SUGGESTED > 7.0 Performed By: #### A 1C #### [facility] [address] [place] [address] Dr. Med Angulo Glucose [Mass/Vol] 111 mg/dL Normal [facility] Comment on above: Performed By: #### A 1C #### [facility] [address] [place] [address] Dr. Med Angulo HbA1c (Bld) [Mass fraction] 5.5 % Normal 4.5-6.2 [facility] Comment on above: Performed By: #### A 1C #### [facility] [address] [place] [address] Dr. Med Angulo LIPID PROFILEon 08-29-2022 CHOL-HDL RATIO NORM SEE BELOW Normal [facility] Comment on above: Result Comment: 3.3 - 4.4 LOW RISK 4.4 - 7.1 AVERAGE RISK 7.1 - 11.0 MODERATE RISK >11.0 HIGH RISK Performed By: #### L IPID, CMP #### [facility] [address] [place] [address] Dr. Med Angulo Cholesterol [Mass/Vol] 128 mg/dL Normal <=200 Th [facility] Comment on above: Performed By: #### L IPID, CMP #### [facility] [address] [address] [address] Med Angulo Cholesterol in HDL [Mass/Vol] 31 mg/dL Critically low 40-60 [facility] Comment on above: Performed By: #### L IPID, CMP #### [facility] [address] [address] [address] Med Angulo Cholesterol in LDL [Mass/Vol] 43.4 mg/dL Normal [facility] Comment on above: Performed By: #### L IPID, CMP #### [facility] [address] [address] [address] Med Angulo Cholesterol.total/Christie sterol in HDL [Mass ratio] 4.1 {ratio} Normal [facility] Comment on above: Performed By: #### L IPID, CMP #### [facility] [address] [address] [address] Med Angulo HDL NORMAL > or = 60 mg/dl - LO W CARDIOVASCULAR RISK <40 mg/dl - HIGH CARDIOVASCULAR RISK Normal [facility] Comment on above: Performed By: #### L IPID, CMP #### [facility] [address] [address] [address] Med Angulo LDL CALC NORMAL SEE BELOW Normal [facility] Comment on above: Result Comment: <100 mg/dl OPTIMAL 100 - 129 mg/dl NEAR OR ABOVE OPTIMAL 130 - 159 mg/dl BORDERLINE HIGH 160 - 189 mg/dl HIGH >190 mg/dl VERY HIGH Performed By: #### L IPID, CMP #### [facility] [address] [address] [address] Med Angulo Triglyceride [Mass/Vol] 268 mg/dL Critically high <=150 [facility] Comment on above: Performed By: #### L IPID, CMP #### [facility] [address] [address] [address] Med Angulo VLDL CALC 53.6 mg/dL Normal [facility] Comment on above: Performed By: #### L IPID, CMP #### [facility] [address] [address] [address] Med Angulo PROF 14(COMP METB)on 022 Albumin [Mass/Vol] 3.8 g/dL Normal 3.4-5.0 [facility] Comment on above: Performed By: #### L IPID, CMP #### [facility] [address] [address] [address] Med Angulo Albumin/Globulin [Mass ratio] 0.9 {ratio} Normal [facility] Comment on above: Performed By: #### L IPID, CMP #### [facility] [address] [address] [address] Med Angulo ALP [Catalytic activity/Vol] 63 U/L Normal 46-116 [facility] Comment on above: Performed By: #### L IPID, CMP #### [facility] [address] [place] [address] Dr. Med Angulo ALT [Catalytic activity/Vol] 60 U/L Normal 16-63 [facility] Comment on above: Performed By: #### L IPID, CMP #### [facility] [address] [address] [address] Med Angulo Anion gap [Moles/Vol] 12.5 mmol/L Normal [facility] Comment on above: Performed By: #### L IPID, CMP #### [facility] [address] [address] [address] Med Angulo AST [Catalytic activity/Vol] 40 U/L Critically high 15-37 [facility] Comment on above: Performed By: #### L IPID, CMP #### [facility] [address] [address] [address] Med Angulo Bilirubin [Mass/Vol] 0.5 mg/dL Normal 0.2-1.0 [facility] Comment on above: Performed By: #### L IPID, CMP #### [facility] [address] [address] [address] Med Angulo Calcium [Mass/Vol] 9.2 mg/dL Normal 8.5-10.1 [facility] Comment on above: Performed By: #### L IPID, CMP #### [facility] [address] [address] [address] Med Angulo Chloride [Moles/Vol] 99 mmol/L Normal 98-107 [facility] Comment on above: Performed By: #### L IPID, CMP #### [facility] [address] [address] [address] Med Angulo CO2 [Moles/Vol] 29.9 mmol/L Normal 21.0-32.0 [facility] Comment on above: Performed By: #### L IPID, CMP #### [facility] [address] [address] [address] Med Angulo Creatinine [Mass/Vol] 1.83 mg/dL Critically high 0.70-1.30 [facility] Comment on above: Performed By: #### L IPID, CMP #### [facility] [address] [place] [address] Dr. Med Angulo EGFR-AF UGANDAN 46 mL/min/1.73m2 Critically low >=60 [facility] Comment on above: Performed By: #### L IPID, CMP #### [facility] [address] [place] [address] Dr. Med Angulo EGFR-NON AF UGANDAN 38 mL/min/1.73m2 Critically low >=60 [facility] Comment on above: Performed By: #### L IPID, CMP #### [facility] [address] [place] [address] Dr. Med Angulo Globulin (S) [Mass/Vol] 4.4 g/dL Normal T [facility] Comment on above: Performed By: #### L IPID, CMP #### [facility] [address] [address] [address] Med Angulo Glucose [Mass/Vol] 95 mg/dL Normal 74-106 [facility] Comment on above: Performed By: #### L IPID, CMP #### [facility] [address] [place] [address] Dr. Med Angulo Potassium [Moles/Vol] 4.4 mmol/L Normal 3.5-5.1 [facility] Comment on above: Performed By: #### L IPID, CMP #### [facility] [address] [place] [address] Dr. Med Angulo Protein [Mass/Vol] 8.2 g/dL Normal 6.4-8.2 [facility] Comment on above: Performed By: #### L IPID, CMP #### [facility] [address] [place] [address] Dr. Med Angulo Sodium [Moles/Vol] 137 mmol/L Normal 136-145 [facility] Comment on above: Performed By: #### L IPID, CMP #### [facility] [address] [place] [address] Dr. Med Angulo Urea nitrogen [Mass/Vol] 26.0 mg/dL Critically high 7.0-18.0 [facility] Comment on above: Performed By: #### L IPID, CMP #### [facility] [address] [place] [address] Dr. Med Angulo Urea nitrogen/Creatinine [Mass ratio] 14.2 mg/mg Normal [facility] Comment on above: Performed By: #### L IPID, CMP #### [facility] [address] [place] [address] Dr. Med Angulo Vital Signs Date Time Vital Sign Value Performing Clinician Emmanuelle crowe 06-09-2025 15:22-040 Body height 178 cm Ernesto Phoenix MD Work Phone: [facility] 06-09-2025 15:22-0400 Body mass index (BMI) [Ratio] 40.08 kg/m2 Ernesto Phoenix MD Work Phone: [facility] 06-09-2025 15:22-040 Body temperature 97.39 [degF] Ernesto Phoenix MD Work Phone: [facility] 06-09-2025 15:22-0400 Body weight 127 kg Ernesto Phoenix MD Work Phone: [facility] 06-09-2025 15:22-0400 Diastolic blood pressure 93 mm[Hg] Ernesto Phoenix MD Work Phone: [facility] 06-09-2025 15:22-0400 Heart rate 53 /min Ernesto Phoenix MD Work Phone: [facility] 06-09-2025 15:22-0400 Respiratory rate 16 /min Ernesto Phoenix MD Work Phone: [facility] 06-09-2025 15:22-0400 SaO2% (BldA) [Mass fraction] 97 % Ernesto Phoenix MD Work Phone: [facility] 06-09-2025 15:22-0400 Systolic blood pressure 187 mm[Hg] Ernesto Phoenix MD Work Phone: [facility] 05-30-2025 09:09-0400 Body height 178 cm Ernesto Phoenix MD Work Phone: [facility] 05-30-2025 09:09-0400 Body mass index (BMI) [Ratio] 39.14 kg/m2 Ernesto Phoenix MD Work Phone: [facility] 05-30-2025 09:09-0400 Body temperature 97.2 [degF] Ernesto Phoenix MD Work Phone: [facility] 05-30-2025 09:09-0400 Body weight 124 kg Ernesto Phoenix MD Work Phone: [facility] 05-30-2025 09:09-0400 Diastolic blood pressure 93 mm[Hg] Ernesto Phoenix MD Work Phone: [facility] 05-30-2025 09:09-0400 Heart rate 90 /min Ernesto Phoenix MD Work Phone: [facility] 05-30-2025 09:09-0400 Respiratory rate 16 /min Ernesto Phoenix MD Work Phone: [facility] 05-30-2025 09:09-0400 SaO2% (BldA) [Mass fraction] 97 % Ernesto Phoenix MD Work Phone: [facility] 05-30-2025 09:09-0400 Systolic blood pressure 164 mm[Hg] Ernesto Phoenix MD Work Phone: [facility] 05-16-2025 09:07-0400 Body height 178 cm Ernesto Phoenix MD Work Phone: [facility] 05-16-2025 09:07-0400 Body mass index (BMI) [Ratio] 36.9 kg/m2 Ernesto Phoenix MD Work Phone: [facility] 05-16-2025 09:07-0400 Body temperature 97.2 [degF] Ernesto Phoenix MD Work Phone: [facility] 05-16-2025 09:07-0400 Body weight 116.9 kg Ernesto Phoenix MD Work Phone: [facility] 05-16-2025 09:07-0400 Diastolic blood pressure 80 mm[Hg] Ernesto Phoenix MD Work Phone: [facility] 05-16-2025 09:07-0400 Heart rate 51 /min Ernesto Phoenix MD Work Phone: [facility] 05-16-2025 09:07-0400 Respiratory rate 16 /min Ernesto Phoenix MD Work Phone: [facility] 05-16-2025 09:07-0400 SaO2% (BldA) [Mass fraction] 98 % Ernesto Phoenix MD Work Phone: [facility] 05-16-2025 09:07-0400 Systolic blood pressure 139 mm[Hg] Ernesto Phoenix MD Work Phone: [facility] 04-22-2025 15:44-0400 Body height 182.88 cm Jessica Susannah MANAGER LATIN-C Work Phone: [facility] 04-22-2025 15:44-0400 Body mass index (BMI) [Ratio] 35.8 kg/m2 Jessica Susannah MANAGER LATIN-C Work Phone: [facility] 04-22-2025 15:44-0400 Body weight 119.74 kg Jessica Susannah MANAGER LATIN-C Work Phone: [facility] 04-22-2025 15:44-0400 Diastolic blood pressure 73 mm[Hg] Jessica Susannha MANAGER LATIN-C Work Phone: [facility] 04-22-2025 15:44-0400 Heart rate 45 /min Jessica Susannah MANAGER LATIN-C Work Phone: [facility] 04-22-2025 15:44-0400 Respiratory rate 16 /min Jessica Susannah MANAGER LATIN-C Work Phone: [facility] 04-22-2025 15:44-0400 SaO2% (BldA) [Mass fraction] 98 % Jessica Susannah MANAGER LATIN-C Work Phone: [facility] 04-22-2025 15:44-0400 Systolic blood pressure 151 mm[Hg] Jessica Susannah MANAGER LATIN-C Work Phone: [facility] 04-18-2025 09:33-0400 Body height 177 cm Ernesto Phoenix MD Work Phone: [facility] Comment on above: no shoes verified by 2 04-18-2025 09:33-0400 Body mass index (BMI) [Ratio] 38.59 kg/m2 Ernesto Phoenix MD Work Phone: [facility] 04-18-2025 09:33-0400 Body temperature 97.3 [degF] Ernesto Phoenix MD Work Phone: [facility] 04-18-2025 09:33-0400 Body weight 120.9 kg Ernesto Phoenix MD Work Phone: [facility] 04-18-2025 09:33-0400 Diastolic blood pressure 58 mm[Hg] Ernesto Phoenix MD Work Phone: [facility] 04-18-2025 09:33-0400 Heart rate 52 /min Ernesto Phoenix MD Work Phone: [facility] 04-18-2025 09:33-0400 Respiratory rate 16 /min Ernesto Phoenix MD Work Phone: [facility] 04-18-2025 09:33-0400 SaO2% (BldA) [Mass fraction] 97 % Ernesto Phoenix MD Work Phone: [facility] 04-18-2025 09:33-0400 Systolic blood pressure 124 mm[Hg] Ernesto Phoenix MD Work Phone: [facility] 04-09-2025 12:55-0400 Body height 178 cm Jeannine Young MD Work Phone: [facility] 04-09-2025 12:55-0400 Body mass index (BMI) [Ratio] 38.69 kg/m2 Jeannine Young MD Work Phone: [facility] 04-09-2025 12:55-0400 Body temperature 97.2 [degF] Jeannine Young MD Work Phone: [facility] 04-09-2025 12:55-0400 Body weight 122.6 kg Jeannine Young MD Work Phone: [facility] 04-09-2025 12:55-0400 Diastolic blood pressure 53 mm[Hg] Jeannine Young MD Work Phone: [facility] 04-09-2025 12:55-0400 Heart rate 44 /min Jeannine Young MD Work Phone: [facility] Comment on above: md notified 04-09-2025 12:55-0400 Respiratory rate 20 /min Jeannine Young MD Work Phone: [facility] 04-09-2025 12:55-0400 SaO2% (BldA) [Mass fraction] 98 % Jeannine Young MD Work Phone: [facility] 04-09-2025 12:55-0400 Systolic blood pressure 123 mm[Hg] Jeannine Young MD Work Phone: [facility] 04-07-2025 13:35-0400 Body mass index (BMI) [Ratio] 36.65 kg/m2 Ernesto Phoenix MD Work Phone: [facility] 04-07-2025 13:35-0400 Body temperature 97 [degF] Ernesto Phoenix MD Work Phone: [facility] 04-07-2025 13:35-0400 Body weight 122.6 kg Ernesto Phoenix MD Work Phone: [facility] 04-07-2025 13:35-0400 Diastolic blood pressure 79 mm[Hg] Ernesto Phoenix MD Work Phone: [facility] 04-07-2025 13:35-0400 Heart rate 43 /min Ernesto Phoenix MD Work Phone: [facility] 04-07-2025 13:35-0400 Respiratory rate 18 /min Ernesto Phoenix MD Work Phone: [facility] 04-07-2025 13:35-0400 SaO2% (BldA) [Mass fraction] 99 % Ernesto Phoenix MD Work Phone: [facility] 04-07-2025 13:35-0400 Systolic blood pressure 119 mm[Hg] Ernesto Phoenix MD Work Phone: [facility] 03-18-2025 15:57-0400 Body height 182.9 cm Ernesto Phoenix MD Work Phone: [facility] 03-18-2025 15:57-0400 Body mass index (BMI) [Ratio] 36.26 kg/m2 Ernesto Phoeinx MD Work Phone: [facility] 03-18-2025 15:57-0400 Body temperature 97 [degF] Ernesto Phoenix MD Work Phone: [facility] 03-18-2025 15:57-0400 Body weight 121.3 kg Ernesto Phoenix MD Work Phone: [facility] 03-18-2025 15:57-0400 Diastolic blood pressure 74 mm[Hg] Ernesto Phoenix MD Work Phone: [facility] 03-18-2025 15:57-0400 Heart rate 43 /min Ernesto Phoenix MD Work Phone: [facility] 03-18-2025 15:57-0400 Respiratory rate 16 /min Ernesto Phoenix MD Work Phone: [facility] 03-18-2025 15:57-0400 SaO2% (BldA) [Mass fraction] 100 % Ernesto Phoenix MD Work Phone: [facility] 03-18-2025 15:57-0400 Systolic blood pressure 144 mm[Hg] Ernesto Phoenix MD Work Phone: [facility] 02-27-2025 11:00-0400 SaO2% (BldA) [Mass fraction] 100 % [facility] Comment on above: Order Comment: Specimen Type: ARTERIAL B LOOD SPECIMEN Ordering Facility: [facility] Address: [address] [place] [address] Performed By: #### A LLBG #### [facility] [id number] [address] [place] [address] OF [facility] 02-27-2025 10:07-0400 SaO2% (BldA) [Mass fraction] 99 % [facility] Comment on above: Order Comment: Specimen Type: ARTERIAL B LOOD SPECIMEN Ordering Facility: [facility] Address: [address] [place] [address] Performed By: #### A LLBG #### [facility] CLIA [id number] [id number] [facility] 02-27-2025 09:07-0400 SaO2% (BldA) [Mass fraction] 100 % [facility] Comment on above: Order Comment: Specimen Type: ARTERIAL B LOOD SPECIMEN Ordering Facility: [facility] Address: [facility] [address] Performed By: #### A LLBG #### [facility] CLIA [id number] [address] [id number] [facility] 02-17-2025 09:13-0400 Body temperature 98.4 [degF] Chair Duke Work Phone: [facility] 02-17-2025 09:13-0400 Diastolic blood pressure 80 mm[Hg] Chair Republic Work Phone: [facility] 02-17-2025 09:13-0400 Heart rate 63 /min Chair Republic Work Phone: [facility] 02-17-2025 09:13-0400 Respiratory rate 16 /min Chair Republic Work Phone: [facility] 02-17-2025 09:13-0400 SaO2% (BldA) [Mass fraction] 98 % Chair Republic Work Phone: [facility] 02-17-2025 09:13-0400 Systolic blood pressure 136 mm[Hg] Chair Republic Work Phone: [facility] 02-07-2025 13:47-0400 Body height 182.9 cm Pacc 2 Work Phone: [facility] 02-07-2025 13:47-0400 Body mass index (BMI) [Ratio] 37.3 kg/m2 Pacc 2 Work Phone: [facility] 02-07-2025 13:47-0400 Body temperature 98.49 [degF] Pacc 2 Work Phone: [facility] 02-07-2025 13:47-0400 Body weight 124.74 kg Pacc 2 Work Phone: [facility] 02-07-2025 13:47-0400 Diastolic blood pressure 72 mm[Hg] Pacc 2 Work Phone: [facility] 02-07-2025 13:47-0400 Heart rate 48 /min Pacc 2 Work Phone: [facility] 02-07-2025 13:47-0400 Respiratory rate 16 /min Pacc 2 Work Phone: [facility] 02-07-2025 13:47-0400 SaO2% (BldA) [Mass fraction] 99 % Pacc 2 Work Phone: [facility] 02-07-2025 13:47-0400 Systolic blood pressure 144 mm[Hg] Pacc 2 Work Phone: [facility] 01-03-2025 14:37-0400 Diastolic blood pressure 70 mm[Hg] Bing Arvizu MD Work Phone: [facility] 01-03-2025 14:37-0400 Heart rate 58 /min Bing Arvizu MD Work Phone: [facility] 01-03-2025 14:37-0400 Systolic blood pressure 149 mm[Hg] Bing Arvizu MD Work Phone: [facility] 10-24-2024 08:56-0500 Blood Pressure Location NIRMALA MENJIVAR [facility] 10-24-2024 08:56-0500 Body temperature 98.6 [degF] NIRMALA MENJIVAR [facility] 10-24-2024 08:56-0500 Diastolic blood pressure 70 mm[Hg] NIRMALA MENJIVAR [facility] 10-24-2024 08:56-0500 Heart rate 75 /min NIRMALA MENJIVAR [facility] 10-24-2024 08:56-0500 Respiratory rate 16 /min NIRMALA MENJIVAR [facility] 10-24-2024 08:56-0500 Systolic blood pressure 138 mm[Hg] NIRMAAL MENJIVAR [facility] Encounters Encounter Date Encounter Type Care Provider Facility Start: 09-26-2025 ambulatory Nikolai Montano ty:[facility] Start: 06-18-2025 End: 06-19-2025 ambulatory MÓNICA BOJORQUEZ [facility] Start: 06-17-2025 End: 06-17-2025 Telephone encounter Ernesto Phoenix MD Work Phone: Hematology/Oncology Comment on above: Lab Orders Start: 06-17-2025 End: 06-17-2025 ambulatory JESSICA DAVALOS Facility:[facility] Start: 06-17-2025 End: 06-17-2025 Subsequent hospital visit by physician Arrival Time Radiology Work Phone: Radiology [facility] Comment on above: Renal cell carcinoma of left kidney (HCC) [C64.2] Start: 06-09-2025 End: 06-09-2025 Patient encounter procedure Ernesto Phoenix MD -[facility] Work Phone: Start: 06-09-2025 End: 06-09-2025 ambulatory Jessica Davalos MANAGER LATIN-C Work Phone: [facility] Work Phone: Start: 06-09-2025 End: 06-09-2025 Office outpatient visit 15 minutes Ernesto Phoenix MD Work Phone: Hematology/Oncology Comment on above: Renal cell carcinoma of left kidney (HCC) (Primary Dx); Shortness of breath Start: 06-09-2025 End: 06-09-2025 ambulatory ERNESTO PHOENIX Facility:[facility] Start: 06-09-2025 End: 06-17-2025 Telephone encounter 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 RN Work Phone: Hematology/Oncology Comment on above: Care Coordination (S hortness of breath, bilateral lower extremity swelling) Radiology US Start: 05-30-2025 End: 05-30-2025 Office outpatient visit 25 minutes Ernesto Phoenix MD Work Phone: Hematology/Oncology Comment on above: Renal cell carcinoma of left kidney (HCC) (Primary Dx); 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 !! Start: 05-20-2025 End: 05-23-2025 E-mail encounter from caregiver Tamika Evans [facility] Work Phone: [facility] Start: 05-20-2025 End: 05-20-2025 Telephone encounter Tamika DiamondRyanne [facility]ly [facility] Work Phone: [facility] Comment on above: Medication Assistanc e Program (Lenvima free drug application approved) Start: 05-16-2025 End: 05-16-2025 Office outpatient visit 15 minutes Ernesto Phoenix MD Work Phone: Hematology/Oncology Comment on above: Renal cell carcinoma of left kidney (HCC) (Primary Dx) Start: 05-16-2025 End: 05-16-2025 ambulatory JESSICA DAVALOS Facility:[facility] Start: 05-12-2025 End: 05-12-2025 Telephone encounter 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 RN Work Phone: Hematology/Oncology Comment on above: Care Coordination (M edication question) Care Coordination (M edication update) Start: 05-09-2025 End: 05-09-2025 ambulatory JESSICA DAVALOS Facility:[facility] Start: 04-22-2025 End: 04-22-2025 ambulatory Jessica Davalos MANAGER LATIN-C Work Phone: [facility] Work Phone: Start: 04-22-2025 End: 04-22-2025 Patient encounter procedure Felton Urbina MD -[employer] [facility] [place] Work Phone: Start: 04-21-2025 End: 04-21-2025 Telephone encounter Riya Villeda RN Work Phone: Hematology/Oncology Comment on above: Care Coordination (C 1D1 Post Treatment Call & Oral Anti-Cancer Agent Follow Up) Start: 04-18-2025 End: 04-18-2025 Telephone encounter Riya Villeda RN Work Phone: Hematology/Oncology Comment on above: [...] (Primary Dx) Start: 04-18-2025 End: 04-18-2025 ambulatory Riya Villeda RN Work Phone: Hematology/Oncology Comment on above: Oral Anti-cancer Age nt Education (Lenvatinib) 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); Renal cell carcinoma of left kidney (HCC) Start: 04-17-2025 End: 04-17-[address] Work Phone: Nutrition Therapy Start: 04-17-2025 End: 04-17-2025 Nutrition therapy Yesica Kvng BRITO Work Phone: Nutrition Therapy Comment on above: Nutrition Assessment Start: 04-17-2025 End: 04-17-2025 ambulatory JESSICAGUZMAN DAVALOS Facility:[facility] Start: 04-15-2025 End: 04-29-2025 Telephone encounter Ernesto Phoenix MD Work Phone: Hematology/Oncology Comment on above: Lab Orders Start: 04-11-2025 End: 04-11-2025 Social Work Myrtle Holland [facility] Hematology/Oncology Start: 04-10-2025 End: 04-14-2025 Telephone encounter 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 RN Work Phone: Hematology/Oncology Comment on above: Care Coordination (T reatment plan) Medication Authoriza tion (Lenvima) Start: 04-09-2025 End: 04-09-2025 Refill Isabela Kenny [facility] Work Phone: [facility] Comment on above: Refill Request 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); Renal cell carcinoma of left kidney (HCC); High risk medication use; Thyroid nodule Start: 04-07-2025 End: 04-07-2025 Chart abstracting Aminata Flor RN Work Phone: Hematology/Oncology Comment on above: Research (IRB [phone] [id number] Informed Consent) Start: 04-07-2025 End: 04-09-2025 Telephone encounter Ernesto Phoenix MD Work Phone: Cancer [facility] Comment on above: Referral Information Start: 04-07-2025 End: 04-07-2025 Office outpatient visit 15 minutes Ernesto Phoenix MD Work Phone: Hematology/Oncology Comment on above: Renal cell carcinoma of left kidney (HCC) (Primary Dx) Start: 04-07-2025 End: 04-07-2025 Nursing evaluation of patient and report 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 RN Work Phone: Hematology/Oncology Comment on above: Renal cell carcinoma of left kidney (HCC) (Primary Dx) Start: 04-07-2025 End: 04-07-2025 ambulatory [facility] Facility:[facility] Start: 04-02-2025 End: 04-10-2025 Orders Only Tamika Evans [facility] Work Phone: Hematology/Oncology Comment on above: Release back to work letter Medication Update (C abometyx) Nephrology Referral Start: 04-01-2025 End: 04-01-2025 Nursing evaluation of patient and report 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 RN Work Phone: Hematology/Oncology Comment on [...] [C64.2] Start: 03-28-2025 End: 05-12-2025 Telephone encounter 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 RN Work Phone: Hematology/Oncology Comment on above: Care Coordination (T reatment prep) Start: 03-20-2025 End: 03-20-2025 Orders Only Tamika Evans [facility] Work Phone: Hematology/Oncology Start: 03-18-2025 End: 03-18-2025 Office outpatient new 60 minutes Ernesto Phoenix MD Work Phone: Hematology/Oncology Comment on above: Renal cell carcinoma of left kidney (HCC) (Primary Dx) Start: 03-18-2025 End: 03-19-2025 ambulatory [facility] Facility:[facility] Start: 03-14-2025 End: 03-14-2025 ambulatory Nikolai R ACOSTA Facility:[facility] Start: 03-14-2025 End: 03-14-2025 Patient encounter procedure Nikolai ACOSTA [facility] Jennifer Start: 03-12-2025 End: 03-12-2025 Follow-up encounter Bing Arvizu MD Work Phone: Urology Start: 03-12-2025 End: 03-12-2025 Telephone encounter Bing Arvizu MD Work Phone: Urology Start: 03-11-2025 End: 03-11-2025 Telephone encounter Tamanna Zhu APRN.SUSTAINABILITY ENGINEER Work Phone: Provider Adult Start: 03-10-2025 End: 03-10-2025 Orders Only Tamanna Marko DINING CAR SERVER.SUSTAINABILITY ENGINEER Work Phone: [facility] Comment on above: Hyperkalemia (Primar y Dx) Start: 03-05-2025 End: 03-05-2025 Telephone encounter Bing Arvizu MD Work Phone: Urology Comment on above: Patient Question Start: 03-04-2025 End: 03-04-2025 ambulatory TAMANNALeyla ZUH Facility:[facility] Start: 02-28-2025 End: 02-28-2025 Orders Only Tamanna Pradeepcz DINING CAR SERVER.SUSTAINABILITY ENGINEER Work Phone: [facility] Comment on above: ODALIS (acute kidney in jury) (Primary Dx) Start: 02-27-2025 End: 02-28-2025 Evaluation and management of inpatient BING ARVIZU Facility:[facility] Start: 02-19-2025 End: 02-19-2025 ambulatory ROB ROMERO Facility:[facility] Start: 02-17-2025 End: 02-17-2025 ambulatory Chair [...] Start: 02-07-2025 End: 02-07-2025 ambulatory ROB ROMERO Facility:[facility] Start: 02-07-2025 End: 02-07-2025 Admission to establishment [place] [address] Work Phone: Pre Anesthesia Start: 02-07-2025 End: 02-07-2025 Anesthesia consultation [place] [address] Work Phone: Pre Anesthesia Comment on above: Pre-op evaluation (P rimary Dx); Depression, unspecified depression type; Type 2 diabetes mellitus without complication, unspecified whether correction insulin use ([facility]); BPH with obstruction/lower urinary tract symptoms; Hypertension, unspecified type; ROSA M (obstructive sleep apnea); Class 2 obesity due to excess calories without serious comorbidity in adult, unspecified BMI Start: 02-07-2025 End: 02-07-2025 Preprocedural examination done [place] [address] Work Phone: [facility] Start: 02-07-2025 End: 02-07-2025 [facility] Facility[facility] Start: 02-07-2025 Encounter for other preprocedural examination JESSICA DAVALOS [facility] Start: 01-29-2025 End: 03-31-2025 Follow-up encounter Bing Arvizu MD Work Phone: Urology Start: 01-24-2025 End: 01-24-2025 ambulatory BING ARVIZU Facility:[facility] Start: 01-20-2025 End: 01-20-2025 Orders Only [...] Start: 12-20-2024 End: 12-20-2024 ambulatory Nikolai ACOSTA Facility: [facility] Start: 11-11-2024 End: 11-11-2024 ambulatory Nikolai [facility] Work Phone: Start: 11-11-2024 End: 11-11-2024 Departed Referred Jessica Davalos MANAGER LATIN-C Work Phone: [facility] Path Spec [facility] Start: 11-11-2024 End: 11-11-2024 ambulatory Nikolai Kristi ACOSTA Facility:[id number] Start: 10-24-2024 End: 10-24-2024 Lab Drop off NIRMALA MENJIVAR [facility] Start: 10-24-2024 End: 10-24-2024 ambulatory NIRMALA MENJIVAR Facility:[facility] Start: 10-24-2024 End: 10-24-2024 Patient encounter procedure NIRMALA MENJIVAR [facility] Start: 10-11-2024 ambulatory NIRMALA MENJIVAR Facility :[facility] Start: 10-08-2024 End: 10-08-2024 ambulatory Jessica Orozco Susannah [facility] Work Phone: Start: 10-08-2024 End: 10-08-2024 Departed Referred Jessica Davalos MANAGER LATIN-C Work Phone: [facility] Path Spec [facility] Start: 09-03-2022 Encounter for genera l adult medical examination without abnormal findings JESSICA SUSANNAH [facility] Start: 08-29-2022 End: 08-30-2022 ambulatory JESSICA DAVALOS Facility:[facility] Start: 08-29-2022 End: 08-30-2022 Encounter for general adult medical examination without abnormal findings JESSICA SUSANNAH Facility: Procedures Date Procedure Procedure Detail Performing Clinician Start: 06-17-[address] atten uation skull base mid-thigh Jeannine Young MD Work Phone: Start: 06-17-2025 Gluc bld gluc mntr d ev cleared fda spec home use [facility] Provider Start: 06-09-2025 Plain chest X-ray Yash Davalos MANAGER LATIN-C Work Phone: Start: 05-30-2025 Urnls dip stick/tabl et rgnt auto w/o microscopy Ernesto Phoenix MD Work Phone: Start: 04-01-[address] atten uation skull base mid-thigh Ernesto Phoenix MD Work Phone: Start: 04-01-2025 Gluc bld gluc mntr d ev cleared fda spec home use [facility] Provider Start: 02-27-2025 Antibody screen BING ARVIZU Comment on above: Order Comment: Speci men Type: BLOOD SPECIMENOrdering Facility: [facility] Address: [address] [place] [address] Performed By: #### T SCR ####OMAR BLOOD BANKCLIA [id number] [address] [place] Start: 01-24-2025 Antibody screen JESSICA DAVALOS Comment on above: Order Comment: Speci men Type: BLOOD SPECIMENOrdering Facility: [facility] Address: [address] [place] [address] Performed By: #### T SCR ####CC MAIN BLOOD BANKCLIA [id number] [facility] [id number] [address] [place] Start: 11-11-2024 Cystoscopy Nikolai LETY SANDERS Start: 10-08-2024 Urine culture Jessica lester MANAGER LATIN-C Work Phone: Colonoscopy NIRMALA TIARA Plan of Treatment Date Care Activity Detail Author Start: 2034 RSV Vaccine (1 - 1-dose 75+ series) RSV Vaccine (1 - 1-dose 75+ series) [facility] Start: 01-04-2028 Diabetes Screening Diabetes Screening [facility] Start: 08-10-2025 Hemoglobin A1c measurement HbA1C [facility] Start: 07-30-2025 End: 07-30-2025 Patient encounter procedure 07/30/2025 2:30 PM EDT [facility] Hematology/Oncology [address] [id number] Jeannine Young MD [address] [place] [address] pt req virtual appointment after scans due to work schedule and treatment dates Hematology/Oncolo gy Comment on above: pt req virtual appointment after scans d ue to work schedule and treatment dates Start: 06-20-2025 End: 09-19-2025 CBC W Auto Differential panel - Blood COMPLETE BLOOD COUNT AND DIFFERENTIAL Lab Routine Renal cell carcinoma of left kidney (HCC) Expected: 06/20/2025, Expires: 09/19/2025 [facility] Work Phone: Comment on above: Expected: 06/20/2025, Expires: Start: 06-20-2025 End: 09-19-2025 Comprehensive metabolic 2000 panel - Serum or Plasma COMPREHENSIVE METABOLIC PANEL Lab Routine Renal cell carcinoma of left kidney (HCC) Expected: 06/20/2025, Expires: 09/19/2025 [facility] Comment on above: Expected: 06/20/2025, Expires: Start: 06-20-2025 End: 09-19-2025 Protein/Creatinine [Mass Ratio] in Urine PROTEIN / CREATININE RATIO Lab Routine Renal cell carcinoma of left kidney (HCC) Expected: 06/20/2025, Expires: 09/19/2025 [facility] Comment on above: Expected: 06/20/2025, Expires: Start: 06-20-2025 End: 06-20-2025 Follow-up encounter 06/20/2025 12:30 PM EDT Visit (SP) Office Hematology/Oncology [address] [place] [address] Jeannine Young MD [address] [place] [address] follow up per pt req Hematology/Oncolo gy Comment on above: follow up per pt req Start: 06-20-2025 End: 06-20-2025 ambulatory Hematology/Oncolo gy Comment on above: Pet scan and lab Start: 06-20-2025 End: 06-20-2025 ambulatory Hematology/Oncolo gy Comment on above: Pet scan and lab Start: 06-20-2025 End: 06-20-2025 Patient encounter procedure Radiology Pe t CT Comment on above: Pet scan and lab LABS Start: 06-17-2025 End: 06-17-2025 Patient encounter procedure 06/17/2025 1:30 PM EDT Appointment Radiology Pet CT [address] [place] [address] [place] [address] Comment on above: Pet scan Start: 06-13-2025 End: 06-29-2026 PET+CT Guidance for localization of tumor of Skull base to mid-thigh-- W 18F-FDG IV NM PET/CT SKULL-THIGH SUBSEQUENT Radiology Routine Renal cell carcinoma of left kidney (HCC) Expected: 06/13/2025 (Approximate), Expires: 06/29/2026 [facility] Work Phone: Comment on above: Expected: 06/13/2025 (Approximate), Expi res: 06/29/2026 Start: 06-09-2025 Duplex scan of lower limb veins US venous duplex LE BI [facility] Start: 06-09-2025 US Lower extremity vein - bilateral [facility] Start: 06-09-2025 End: 09-08-2025 Protein/Creatinine [Mass Ratio] in Urine [facility] Work Phone: Comment on above: Expected: 06/09/2025, Expires: Start: 06-06-2025 End: 06-06-2025 ambulatory 06/06/2025 11:15 AM EDT Results Only [facility] [address] [place] [address] [place] [address] Young [facility] Comment on above: lab for Dr Young Start: 06-04-2025 End: 09-03-2025 CBC W Auto Differential panel - Blood COMPLETE BLOOD COUNT AND DIFFERENTIAL Lab Routine Renal cell carcinoma of left kidney (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) Expected: 06/04/2025 (Approximate), Expires: 09/03/2025 [facility] Comment on above: Expected: 06/04/2025 (Approximate), Expi res: 09/03/2025 Start: 06-04-2025 End: 09-03-2025 Comprehensive metabolic 2000 panel - Serum or Plasma COMPREHENSIVE METABOLIC PANEL Lab Routine Renal cell carcinoma of left kidney (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) Expected: 06/04/2025 (Approximate), Expires: 09/03/2025 [facility] Comment on above: Expected: 06/04/2025 (Approximate), Expi res: 09/03/2025 Start: 06-04-2025 End: 09-03-2025 Thyrotropin [Units/volume] in Serum or Plasma THYROID STIMULATING HORMONE Lab Routine High risk medication use Expected: 06/04/2025 (Approximate), Expires: 09/03/2025 [facility] Comment on above: Expected: 06/04/2025 (Approximate), Expi res: 09/03/2025 Start: 06-04-2025 End: 09-03-2025 Thyroxine (T4) free [Mass/volume] in Serum or Plasma T4 FREE/FREE THYROXINE Lab Routine High risk medication use Expected: 06/04/2025 (Approximate), Expires: 09/03/2025 [facility] Comment on above: Expected: 06/04/2025 (Approximate), Expi res: 09/03/2025 Start: 06-02-2025 Influenza vaccination [facility] Start: 05-30-2025 End: 08-29-2025 CBC W Auto Differential panel - Blood COMPLETE BLOOD COUNT AND DIFFERENTIAL Lab Routine Renal cell carcinoma of left kidney (HCC) Expected: 05/30/2025 (Approximate), Expires: 08/29/2025 [facility] Work Phone: Comment on above: Expected: 05/30/2025 (Approximate), Expi res: 08/29/2025 Start: 05-30-2025 End: 08-29-2025 Comprehensive metabolic 2000 panel - Serum or Plasma COMPREHENSIVE METABOLIC PANEL Lab Routine Renal cell carcinoma of left kidney (HCC) Expected: 05/30/2025 (Approximate), Expires: 08/29/2025 [facility] Comment on above: Expected: 05/30/2025 (Approximate), Expi res: 08/29/2025 Start: 05-30-2025 End: 08-29-2025 Magnesium [Mass/volume] in Serum or Plasma MAGNESIUM Lab Routine Renal cell carcinoma of left kidney (HCC) Expected: 05/30/2025 (Approximate), Expires: 08/29/2025 [facility] Comment on above: Expected: 05/30/2025 (Approximate), Expi res: 08/29/2025 Start: 05-30-2025 End: 08-29-2025 Protein/Creatinine [Mass Ratio] in Urine [facility] Comment on above: Expected: 05/30/2025 (Approximate), Expi res: 08/29/2025 Start: 05-30-2025 End: 08-29-2025 URINALYSIS, DIPSTICK ONLY URINALYSIS, DIPSTICK ONLY Lab Routine Renal cell carcinoma of left kidney (HCC) Expected: 05/30/2025 (Approximate), Expires: 08/29/2025 [facility] Comment on above: Expected: 05/30/2025 (Approximate), Expi res: 08/29/2025 Start: 05-30-2025 End: 05-30-2025 Follow-up encounter Hematology/Oncolo gy Comment on above: 3 week lab follow up chemotx Keytruda Start: 05-30-2025 End: 05-30-2025 Patient encounter procedure 05/30/2025 9:00 AM EDT Office Visit [facility] [address] [place] [address] 3 week lab follow up chemotx Keytruda [facility] Comment on above: 3 week lab follow up chemotx Keytruda Start: 05-16-2025 End: 05-16-2025 Follow-up encounter 05/16/2025 9:20 AM EDT Visit (SP) Office Hematology/Oncology [address] [place] [address] Ernesto Phoenix MD [address] [place] [address] 1 week followup with lab/ Tox check Hematology/Oncolo gy Comment on above: 1 week followup with lab/ Tox check Start: 05-16-2025 End: 05-16-2025 Patient encounter procedure 05/16/2025 9:00 AM EDT Office Visit [facility] [address] [place] [address] 1 week followup with lab/ Tox check [facility] Comment on above: 1 week followup with lab/ Tox check Start: 05-09-2025 End: 08-08-2025 CBC W Auto Differential panel - Blood COMPLETE BLOOD COUNT AND DIFFERENTIAL Lab Routine Renal cell carcinoma of left kidney (HCC) Expected: 05/09/2025 (Approximate), Expires: 08/08/2025 [facility] Comment on above: Expected: 05/09/2025 (Approximate), Expi res: 08/08/2025 Start: 05-09-2025 End: 08-08-2025 Comprehensive metabolic 2000 panel - Serum or Plasma COMPREHENSIVE METABOLIC PANEL Lab Routine Renal cell carcinoma of left kidney (HCC) Expected: 05/09/2025 (Approximate), Expires: 08/08/2025 [facility] Comment on above: Expected: 05/09/2025 (Approximate), Expi res: 08/08/2025 Start: 05-09-2025 End: 08-08-2025 Magnesium [Mass/volume] in Serum or Plasma MAGNESIUM Lab Routine Renal cell carcinoma of left kidney (HCC) Expected: 05/09/2025 (Approximate), Expires: 08/08/2025 [facility] Comment on above: Expected: 05/09/2025 (Approximate), Expi res: 08/08/2025 Start: 05-09-2025 End: 05-09-2025 Follow-up encounter Hematology/Oncolo gy Comment on above: 3 week lab follow up chemotx Keytruda Start: 05-09-2025 End: 05-09-2025 Patient encounter procedure 05/09/2025 9:00 AM EDT Office Visit [facility] [address] [address] 3 week lab follow up chemotx Keytruda [facility] Comment on above: 3 week lab follow up chemotx Keytruda Start: 05-02-2025 End: 04-18-2026 Echocardiography ECHO Cardiology Routine Renal cell carcinoma of left kidney (HCC) Expected: 05/02/2025 (Approximate), Expires: 04/18/2026 [facility] Work Phone: Comment on above: Expected: 05/02/2025 (Approximate), Expi res: 04/18/2026 Start: 04-18-2025 End: 04-18-2025 Nursing evaluation of patient and report 04/18/2025 10:00 AM EDT Nurse Visit Hematology/Oncology [address] [place] [address] Riya Villeda, RN [address] [address] Chemo Education Added This Date Per Karena Villeda Phone Encounter Hematology/Oncolo gy Comment on above: Chemo Education Added This Date Per Gil Villeda Phone Encounter Start: 04-18-2025 End: 04-18-2025 Follow-up encounter Hematology/Oncolo gy Comment on above: lab follow up and Opdivo lab follow up and Ke ytruda Start: 04-18-2025 End: 04-18-2025 Patient encounter procedure [facility] Comment on above: lab follow up and Opdivo lab follow up and Ke ytruda Start: 04-17-2025 End: 04-17-2025 Nutrition therapy 04/17/2025 1:30 PM EDT Education Nutrition Therapy [address] [place] [address] Yesica Calderon, RD [address] [place] [address] Renal cell carcinoma of left kidney (HCC) [C64.2] Nutrition Therapy Comment on above: Renal cell carcinoma of left kidney (HCC ) [C64.2] Start: 04-14-2025 End: 04-14-2025 Follow-up encounter Hematology/Oncolo gy Comment on above: lab follow up and Opdivo Start: 04-14-2025 End: 04-14-2025 Patient encounter procedure 04/14/2025 8:30 AM EDT Office Visit [facility] [address] [place] [address] lab follow up and Opdivo [facility] Comment on above: lab follow up and Opdivo Start: 04-07-2025 End: 07-07-2025 [facility]ATIONONELIQUIDCDX [facility] Work Phone: Comment on above: Expected: 04/07/2025, Expires: Start: 04-07-2025 End: 04-07-2025 Follow-up encounter Hematology/Oncolo gy Comment on above: Follow up with lab chemotx Keytruda Start: 04-07-2025 End: 04-07-2025 Patient encounter procedure 04/07/2025 1:15 PM EDT Office Visit [facility] [address] [place] [address] Follow up with lab chemotx Keytruda [facility] Comment on above: Follow up with lab chemotx Keytruda Start: 04-07-2025 End: 04-07-2025 Nursing evaluation of patient and report 04/07/2025 1:00 PM EDT Nurse Visit Hematology/Oncology [address] [place] [address] 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, RN [address] [place] [address] Chemo Ed opdivo plus cabozantinib Hematology/Oncolo gy Comment on above: Chemo Ed opdivo plus cabozantinib Start: 04-01-2025 End: 04-17-2026 MR Brain WO contrast MRI BRAIN WO IVCON Radiology Routine Renal cell carcinoma of left kidney (HCC) Expected: 04/01/2025 (Approximate), Expires: 04/17/2026 [facility] Comment on above: Expected: 04/01/2025 (Approximate), Expi res: 04/17/2026 Start: 04-01-2025 End: 04-17-2026 PET+CT Guidance for localization of tumor of Skull base to mid-thigh-- W 18F-FDG IV NM PET/CT SKULL-THIGH INITIAL Radiology Routine Renal cell carcinoma of left kidney (HCC) Expected: 04/01/2025, Expires: 04/17/2026 [facility] Work Phone: Comment on above: Expected: 04/01/2025, Expires: Start: 04-01-2025 End: 04-01-2025 Nursing evaluation of patient and report 04/01/2025 11:00 AM EDT Nurse Visit Hematology/Oncology [address] [place] [address] 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, RN [address] [place] [address] Chemo ed Keytruda Hematology/Oncolo gy Comment on above: Chemo ed Keytruda Start: 04-01-2025 End: 04-01-2025 Patient encounter procedure 04/01/2025 8:45 AM EDT Appointment Radiology Pet CT [address] [place] [address] [address] Pet CT Comment on above: Pet scan Start: 03-17-2025 End: 03-17-2025 ambulatory 03/17/2025 1:00 PM EDT Visit (SP) Office Hematology/Oncology [address] [place] [address] Ernesto Phoenix MD [address] [place] [address] renal cell carcinoma Hematology/Oncolo gy Comment on above: renal cell carcinoma Start: 03-10-2025 End: 06-09-2025 Renal function 2000 panel - Serum or Plasma [facility] Work Phone: Comment on above: Expected: 03/10/2025, Expires: Start: 02-28-2025 End: 05-30-2025 Renal function 2000 panel - Serum or Plasma RENAL FUNCTION PANEL Lab Routine ODALIS (acute kidney injury) Expected: 02/28/2025, Expires: 05/30/2025 [facility] Work Phone: Comment on above: Expected: 02/28/2025, Expires: Start: 02-27-2025 End: 02-27-2025 Admission to same day surgery center 02/27/2025 11:30 AM EDT - 02/27/2025 3:15 PM EDT Surgery [facility] [address] [place] [address] Bing Arvizu MD [address] [place] [id number] ROBOTIC LAPAROSCOPIC NEPHRECTOMY PARTIAL [facility] Comment on above: ROBOTIC LAPAROSCOPIC NEPHRECTOMY PARTIAL Start: 02-27-2025 End: 02-27-2025 Laparoscopy surg partial nephrectomy ROBOTIC LAPAROSCOPIC NEPHRECTOMY PARTIAL Neoplasm of uncertain behavior of left kidney 02/27/2025 11:30 AM EDT [facility] OR Start: 02-27-2025 Subsequent hospital visit by physician 02/27/2025 11:30 AM EDT Hospital Encounter [facility] [address] [place] [address] Bing Arvizu MD [address] [place] [id number] 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] [facility] Comment on above: Neoplasm of uncertain behavior of left k idney [D41.02] Start: 02-27-2025 End: 02-27-2025 Admission to same day surgery center 02/27/2025 7:30 AM EDT - 02/27/2025 11:15 AM EDT Surgery [facility] [id number] [place] [address] Bing Arvizu MD [address] [place] [address] ROBOTIC LAPAROSCOPIC NEPHRECTOMY PARTIAL [facility] Comment on above: ROBOTIC LAPAROSCOPIC NEPHRECTOMY PARTIAL Start: 02-27-2025 End: 02-27-2025 Laparoscopy surg partial nephrectomy ROBOTIC LAPAROSCOPIC NEPHRECTOMY PARTIAL Neoplasm of uncertain behavior of left kidney 02/27/2025 7:30 AM EDT [facility] OR Start: 02-27-2025 Subsequent hospital visit by physician 02/27/2025 7:30 AM EDT Hospital Encounter [facility] [id number] [place] [address] Bing Arvizu MD [address] [place] [address] 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] [facility] Comment on above: Neoplasm of uncertain behavior of left k idney [D41.02] Start: 02-19-2025 End: 02-19-2025 ambulatory 02/19/2025 9:00 AM EDT Infusion Center Hematology/Oncology [address] [place] [address] [place] [address] [facility] Comment on above: [facility] Start: 02-07-2025 End: 05-09-2025 Ferritin [Mass/volume] in Serum or Plasma [facility] Comment on above: Expected: 02/07/2025, Expires: Start: 02-07-2025 End: 05-09-2025 Hemoglobin A1c in Blood [facility] Comment on above: Expected: 02/07/2025, Expires: Start: 02-07-2025 End: 05-09-2025 Iron and Iron binding capacity panel - Serum or Plasma [facility] Work Phone: Comment on above: Expected: 02/07/2025, Expires: Start: 02-07-2025 End: 02-07-2025 Anesthesia consultation 02/07/2025 1:40 PM EDT PAT Pre Anesthesia [address] [place] [address] 2, [employer] [address] [place] [address] DOS 02/27 Pre Anesthesia Comment on above: DOS 02/27 Start: 02-06-2025 Subsequent hospital visit by physician 02/06/2025 Hospital Encounter [facility] [address] [place] [address] Bing Arvizu MD [address] [place] [address] 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] [facility] Comment on above: Neoplasm of uncertain behavior of left k idney [D41.02] Start: 01-24-2025 End: 04-25-2025 CBC panel - Blood by Automated count COMPLETE BLOOD COUNT Lab STAT Renal mass, left Expected: 01/24/2025, Expires: 04/25/2025 [facility] Work Phone: Comment on above: Expected: 01/24/2025, Expires: Start: 01-24-2025 End: 04-25-2025 PT panel - Platelet poor plasma by Coagulation assay PROTHROMBIN TIME Lab STAT Renal mass, left Expected: 01/24/2025, Expires: 04/25/2025 [facility] Comment on above: Expected: 01/24/2025, Expires: Start: 01-24-2025 End: 01-24-2025 Admission to same day surgery center 01/24/2025 11:00 AM EDT - 01/24/2025 12:00 PM EDT Surgery [facility] [address] [place] [address] Bg Navas MD [address] [place] [address] BIOPSY KIDNEY PERCUTANEOUS [facility] Comment on above: BIOPSY KIDNEY PERCUTANEOUS Start: 01-24-2025 End: 01-24-2025 Renal biopsy prq trocar/needle BIOPSY KIDNEY PERCUTANEOUS Neoplasm of uncertain behavior of left kidney 01/24/2025 11:00 AM EDT ANGIO HB6 Start: 01-24-2025 Subsequent hospital visit by physician 01/24/2025 11:00 AM EDT Hospital Encounter [facility] [address] [place] [address] Bg Navas MD [address], [address] [place] [address] 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] [facility] Comment on above: Neoplasm of uncertain behavior of left k idney [D41.02] Start: 01-06-2025 End: 04-07-2025 CBC W Auto Differential panel - Blood COMPLETE BLOOD COUNT AND DIFFERENTIAL Lab Routine Renal mass, left Expected: 01/06/2025, Expires: 04/07/2025 [facility] Work Phone: Comment on above: Expected: 01/06/2025, Expires: Start: 01-06-2025 End: 04-07-2025 PT panel - Platelet poor plasma by Coagulation assay PROTHROMBIN TIME Lab Routine Renal mass, left Expected: 01/06/2025, Expires: 04/07/2025 [facility] Comment on above: Expected: 01/06/2025, Expires: Start: 01-03-2025 End: 04-04-2025 aPTT in Platelet poor plasma by Coagulation assay ACTIVATED PARTIAL THROMBOPLASTIN TIME Lab Routine Neoplasm of uncertain behavior of left kidney Expected: 01/03/2025, Expires: 04/04/2025 [facility] Comment on above: Expected: 01/03/2025, Expires: Start: 01-03-2025 End: 04-04-2025 Bacteria identified in Urine by Culture BACTERIAL CULTURE, URINE Microbiology Routine Neoplasm of uncertain behavior of left kidney Expected: 01/03/2025, Expires: 04/04/2025 [facility] Comment on above: Expected: 01/03/2025, Expires: Start: 01-03-2025 End: 04-04-2025 CBC W Auto Differential panel - Blood COMPLETE BLOOD COUNT AND DIFFERENTIAL Lab Routine Neoplasm of uncertain behavior of left kidney Expected: 01/03/2025, Expires: 04/04/2025 [facility] Work Phone: Comment on above: Expected: 01/03/2025, Expires: Start: 01-03-2025 End: 04-04-2025 Comprehensive metabolic 2000 panel - Serum or Plasma COMPREHENSIVE METABOLIC PANEL Lab Routine Neoplasm of uncertain behavior of left kidney Expected: 01/03/2025, Expires: 04/04/2025 [facility] Comment on above: Expected: 01/03/2025, Expires: Start: 01-03-2025 End: 04-04-2025 CONFIRM BLOOD TYPE CONFIRM BLOOD TYPE Blood Bank Routine Neoplasm of uncertain behavior of left kidney Expected: 01/03/2025, Expires: 04/04/2025 [facility] Comment on above: Expected: 01/03/2025, Expires: Start: 01-03-2025 End: 04-04-2025 PT panel - Platelet poor plasma by Coagulation assay PROTHROMBIN TIME Lab Routine Neoplasm of uncertain behavior of left kidney Expected: 01/03/2025, Expires: 04/04/2025 [facility] Comment on above: Expected: 01/03/2025, Expires: Start: 01-03-2025 End: 04-04-2025 TYPE + SCREEN TYPE + SCREEN Blood Bank Routine Neoplasm of uncertain behavior of left kidney Expected: 01/03/2025, Expires: 04/04/2025 [facility] Comment on above: Expected: 01/03/2025, Expires: Start: 12-31-2024 Covid-19 Vaccine () Covid-19 Vaccine () [facility] Start: 10-08-2024 Bacteria identified in Urine by Culture Urine Culture [facility] Start: 10-08-2024 Urine culture [facility] Start: 10-02-2024 Advance Directive Discussion Advance Directive Discussion [facility] Start: 06-02-2024 Influenza vaccination Influenza Vaccine (#1) [facility] Start: 2019 RSV Vaccine (1 - Risk 60-74 years 1-dose series) RSV Vaccine (1 - Risk 60-74 years 1-dose series) [facility] Start: 2014 Prostate specific antigen measurement Prostate Cancer Screening Discussion [facility] Start: 2009 Pneumococcal Vaccine: 50+ (1 of 1 - PCV) Pneumococcal Vaccine: 50+ (1 of 1 - PCV) [facility] Start: 2009 Shingrix Vaccine (1 of 2) Shingrix Vaccine (1 of 2) [facility] Start: 01-06-2004 Prostate specific antigen measurement Prostate Cancer Screening Discussion [facility] Start: 01-06-2004 Screening for malignant neoplasm of colon [facility] Start: 1994 Lipid panel Lipid Screening [facility] Start: 1978 Pneumococcal Vaccine: 50+ (1 of 2 - PCV) Pneumococcal Vaccine: 50+ (1 of 2 - PCV) [facility] Start: 1978 Shingrix Vaccine (1 of 2) Shingrix Vaccine (1 of 2) [facility] Start: 1978 Urine microalbumin profile DTaP,Tdap,Td Vaccine (1 - Tdap) [facility] Start: 1977 Annual PCP Team Chronic Disease Visit Annual PCP Team Chronic Disease Visit [facility] Start: 1977 Anxiety Screening Anxiety Screening [facility] Start: 1977 BP Controlled (<130/80) BP Controlled (<130/80) [facility] Start: 1977 Depression Screening Depression Screening [facility] Start: 1977 Hepatitis B surface antibody level LDL Cholesterol [facility] Start: 1977 Hepatitis C screening Hepatitis C Screening [facility] Start: 1977 HIV screening HIV Screening [facility] Start: 1969 Diabetic foot examination Diabetic Foot Exam 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) BPH with obstruction/lower urinary tract symptoms Hypertension, unspecified type ROSA M (obstructive sleep apnea) Class 2 obesity due to excess calories without serious comorbidity in adult, unspecified BMI Ordered: 02/07/2025 [facility] Comment on above: Ordered: 02/07/2025 End: 04-18-2026 ECG COMPLETE ECG COMPLETE ECG Routine Renal cell carcinoma of left kidney (HCC) 1 Occurrences starting 04/18/2025 until 04/18/2026 [facility] Comment on above: 1 Occurrences starting 04/18/2025 until 04/18/2026 Guidance for percuta neous biopsy of Kidney IMAGING GUIDED BIOPSY RENAL Radiology Routine Neoplasm of uncertain behavior of left kidney Ordered: 01/03/2025 [facility] Work Phone: Comment on above: Ordered: [...] (HCC) 1 Occurrences starting 04/09/2025 until 05/09/2026 [facility] Work Phone: Comment on above: 1 Occurrences starting 04/09/2025 until 05/09/2026 Renal function 2000 panel - Serum or Plasma [facility] US Kidney - bilateral [facility] End: 06-09-2026 US Lower extremity veins - bilateral US LEG VEIN DVT [facility] Routine Renal cell carcinoma of left kidney (HCC) 1 Occurrences starting 06/09/2025 until 06/09/2026 [facility] Comment on above: 1 Occurrences starting 06/09/2025 until 06/09/2026 End: 05-09-2026 US Thyroid gland US THYROID/PARATHYROID Radiology Routine Thyroid nodule 1 Occurrences starting 04/09/2025 until 05/09/2026 [facility] Comment on above: 1 Occurrences starting 04/09/2025 until 05/09/2026 End: 07-09-2026 XR Chest PA and Lateral XR CHEST 2V FRONTAL/LAT Radiology Routine Renal cell carcinoma of left kidney (HCC) Shortness of breath 1 Occurrences starting 06/09/2025 until 07/09/2026 [facility] Comment on above: 1 Occurrences starting 06/09/2025 until 07/09/2026 [facility] Immunizations Immunization Date Immunization Notes Care Provider Fa gianluca 07-02-2024 SARS-CoV-2 (COVID-19 ) mRNA-[id number] vaccine NIRMALA TIARA [facility] 06-29-2024 COVID-19 vaccine (NOVAVAX) Ernesto Phoenix MD Work Phone: [facility] 07-30-2022 SARS-CoV-2 (COVID-19 ) [id number] Nikolai ACOSTA [facility] 02-26-2022 SARS-CoV-2 mRNA (wmswzrxvacv-czkf-povm ose) vaccine Nikolai ACOSTA [facility] 08-29-2021 SARS-CoV-2 (COVID-19 ) mRNA BNT-162b2 vax Nikolai ACOSTA [facility] 01-21-2021 SARS-CoV-2 (COVID-19 ) mRNA BNT-162b2 vax Nikolai ACOSTA [facility] 12-31-2020 SARS-CoV-2 (COVID-19 ) mRNA BNT-162b2 vax Nikolai ACOSTA [facility] Payers Date Payer Category Payer Unknown unable to read card [id number] 2024 Self-pay 2023 Private Health Insurance [id number] 2023 Unknown [id number] 1959 Unknown [id number] 1960 Unknown [id number] 2.16.84 [id number] 1959 Unknown [id number] 2.16.8 [id number] 1959 Unknown [id number] 2.16.8 [id number] 1959 Unknown [id number] 2.16.8 [id number] 1959 Unknown [id number] 2.16.8 [id number] 1959 Unknown [id number] 2.16.8 [id number] 1959 Unknown [id number] 2.16.8 [id number] Unknown [id number] 2.16.8 [id number] Social History Date Type Detail Facility Tobacco smoking stat [facility] Unknown if ever smoked [facility] Work Phone: Start: 05-21-2013 End: 10-09-2024 Sex Male (finding) [facility] Start: 1960 Sex Assigned At Male [facility] Start: 10-24-2024 End: 02-07-2025 Tobacco smoking status Never smoked tobacco (finding) [facility] Start: 12-20-2024 Tobacco smoking status Never [facility] Start: 01-03-2025 End: 05-15-2025 Sex Assigned At Male [facility] Start: 01-03-2025 End: 05-15-2025 History of Social function [facility] Start: 1960 Sex assigned at Not on file [facility] Start: 02-07-2025 Tobacco use and exposure Smokeless tobacco non-user [facility] Start: 02-07-2025 End: 05-30-2025 Alcoholic beverage intake Current drinker of alcohol (finding) [facility] Start: 02-07-2025 Alcohol Comment once a year, if that [facility] Start: 03-02-2025 Gender identity Identifies as male gender (finding) [facility] Start: 03-02-2025 Sexual orientation Heterosexual (julito blakely) [facility] Sexual Orientation [facility] Functional Status Date Assessment Result Facility 02-28-2025 Are you deaf, or do you have serious difficulty hearing No 02/28/2025 3:36 PM Latrice Pike, JUANA No [facility] 02-28-2025 Are you blind, or do you have serious difficulty seeing, even when wearing glasses No 02/28/2025 3:36 PM Latrice Pike, JUANA No [facility] 02-28-2025 Do you have serious difficulty walking or climbing stairs No 02/28/2025 3:36 PM Latrice Pike, JUANA No [facility] 02-28-2025 Do you have difficul ty dressing or bathing No 02/28/2025 3:36 PM Latrice Pike, JUANA No [facility] 02-28-2025 Because of a physica l, mental, or emotional condition, do you have difficulty doing errands alone such as visiting a physician's office or shopping No 02/28/2025 3:36 PM Latrice Pike, JUANA No [facility] 10-24-2024 Functional Status N/A [facility] Mental Status Date Assessment Result Facility 02-28-2025 Because of a physica l, mental, or emotional condition, do you have serious difficulty concentrating, remembering, or making decisions No 02/28/2025 3:36 PM Latrice Pike, JUANA No [facility] Clinical Notes 10-24-2024 to 06-18-2025 Telephone Encounter - YamileJamesLANDEN marmolejo - 06/17/2025 2:33 PM EDTTelephone Encounter - YamileIsabellaLANDEN - 06/17/2025 2:33 PM Syl Segovia RN - 06/17/2025 1:30 PM EDTPatient Instructions Note Date & Type Note Facility 06-18-2025 Note Subjective Patient ID: Skyler Le is a 65 y.o. male who presents for New Patient (Patient is here today for bradycardia, as a new patient to establish care with cardilology. Patient had recent Echo and holter monitor. Patient was taking Norvasc which caused him headaches and SOB no longer taking), Bradycardia, Hypertension, and Sleep Apnea. 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 [employer] in press room. Found mass in L [...] strip reviewed by me: normal Assessment/Plan Mr. Le has asymptomatic sinus pauses during sleep and some bradycardia which is asymptomatic. I have advised him that no treatment is needed unless he has symptoms of dizziness or lightheadedness. We also discussed blood pressure control and meds are limited due to CKD and bradycardia. We discussed swelling on amlodipine and will try low dose nifedipine extended release to see it that helps BP control although risk of recurrent swelling is possible. Diagnosis Plan 1. 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) NIFEdipine CC (Adalat CC) 30 mg 24 hr tablet 2. Bradycardia No orders of the defined types were placed in this encounter. No results found for this or any previous visit (from the past 36 hours). Follow up in about 3 weeks (around 07/09/2025) for Recheck. [facility] 06-17-2025 Tele[address] encounter Note Please place labs for TX on 06/20. Isabella Ovalle MA [facility] 06-17-[address] labs for TX on 06/20. Isabella Ovalle MA documented in this encounter [facility] 06-17-2025 History of Present illness Narrative Radiology Service [...] SIGNATURE: Syl Stubbs RN PATIENT NAME: Skyler Le DATE: June 17, 2025 TIME: 1:40 PM documented in this encounter [facility] 06-17-2025 Note [facility] 06-11-2025 Telephone encounter Note Finalized report scanned. [facility] 06-11-2025 Miscellaneous Notes Finalized report scanned. Preliminary report is negative. 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 RN Preliminary report scanned. Patient has been scheduled for STAT US today @ [facility] @ 4:45ish pm - He was leaving from our office and going straight there to be worked into their schedule. Radiology will call w/ results if positive. Huyen Burden documented in this encounter [facility] 06-10-2025 Telephone encounter Note Preliminary report is negative. 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 RN [facility] Work Phone: 06-10-2025 Telephone encounter Note Preliminary report scanned. [facility] 06-09-2025 Telephone encounter Note Patient has been scheduled for STAT US today @ [facility] @ 4:45ish pm - He was leaving from our office and going straight there to be worked into their schedule. Radiology will call w/ results if positive. Huyen Burden [facility] 06-09-2025 Instructions Ernesto Phoenix MD - 06/09/2025 3:59 PM EDT Ordered US doppler to r/o DVT Ordered CXR Urine test today Lisinopril sent to pharmacy F/u next week as scheduled documented in this encounter [facility] 06-09-2025 Note [facility] 06-09-2025 History of Present illness Narrative Images from the original note were not included. PATIENT NAME: Skyler eL [facility] NO.: [id number] ATTENDING PHYSICIAN: Ernesto Phoenix MD DATE OF SERVICE: 06/09/[address] Bing Arvizu [id number] [facility] [phone] thank you for referring Skyler Le for [...] unusual findings. Doing well - Works in [employer]. - No smoking - No alcohol. - [...] Range Status 05/30/2025 7.4 % Final Abs [place] Date Value Ref Range Status 05/30/2025 0.57 <0.87 k/uL Final Abs Eosin Date Value Ref Range Status 05/30/2025 0.16 <0.46 k/uL Final Basophils % Date Value Ref Range Status 05/30/2025 0.6 % Final Abs Baso Date Value Ref Range Status 05/30/2025 0.05 <0.11 k/uL Final PATH: SURGICAL PATHOLOGY: [id number] Order: [id number] Collected 02/27/2025 11:37 AM Status: Final result [...] by on 04/09/25. Recommended Keytruda Lenvatinib. 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 Dear Dr. Bing Arvizu [id number] [facility] [id number] thank you for allowing me to participate in Skyler Mohini [facility], if there are any questions or concerns please do not hesitate to contact me at the number below. I spent a total of 20 minutes on the date of the service which included preparing to see the patient, [id number] patient care, completing clinical documentation, obtaining and/or reviewing separately obtained history, performing a medically appropriate examination, counseling and educating the patient/family/caregiver, ordering medications, tests, or procedures, communicating with other HCPs (not separately reported), independently interpreting results (not separately reported), communicating results to the patient/family/caregiver, and care coordination (not separately reported). Ernesto Phoenix MD. Hematology/Medical Oncology [facility] [phone] CC: documented in this encounter [facility] 06-09-2025 Telephone encounter Note Skyler has been added to the schedule today for labs and a follow up with Dr Ring starting at 315. Britney Saldaña PSS [facility] 06-09-2025 Miscellaneous Notes Skyler has been added to the schedule today for labs and a follow up with Dr Ring starting at 315. Britney Saldaña PSS He can. I transferred the call to the PSS's to schedule, and had them add him on for labs as well. Please sign pending CBC and CMP Thanks 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 RN Can he see me today in office ? Thank you Voicemail received from pt stating he was instructed to stop lenvatinib about 10 days ago and was started on Norvasc by PCP same day. Pt states he was having some headaches and shortness of breath so he stopped the Norvasc 4 days later. Pt states over the weekend he became much more short of breath and he also has swelling in both his feet and ankles. Pt states Dr Ring stopped both is water pills a couple of weeks ago as well. Please advise 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 RN documented in this encounter [facility] 06-09-2025 Telephone encounter Note He can. I transferred the call to the PSS's to schedule, and had them add him on for labs as well. Please sign pending CBC and CMP Thanks 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 RN [facility] 06-09-2025 Telephone encounter Note Can he see me today in office ? Thank you [facility] 06-09-2025 Telephone encounter Note Voicemail received from pt stating he was instructed to stop lenvatinib about 10 days ago and was started on Norvasc by PCP same day. Pt states he was having some headaches and shortness of breath so he stopped the Norvasc 4 days later. Pt states over the weekend he became much more short of breath and he also has swelling in both his feet and ankles. Pt states Dr Ring stopped both is water pills a couple of weeks ago as well. Please advise 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 RN [facility] 05-30-2025 Note HNO ID: [id number] Author: MILLI ARMENTA RN Service: ? Author Type: Registered Nurse Type: Progress Notes Filed: 05/30/2025 10:44 Note Text: Urine sample submitted to lab as send out for UA and Protein/Cr ratio Milli Armenta RN [facility] 05-30-2025 History of Present illness Narrative Urine sample submitted to lab as send out for UA and Protein/Cr ratio Milli Armenta RN documented in this encounter [facility] 05-30-2025 Instructions Ernesto Phoenix MD - 05/30/2025 9:26 AM EDT Treatment today and in 3 weeks Ordered PET scan in 2 weeks F/u in 3 weeks documented in this encounter [facility] 05-30-2025 History of Present illness Narrative Images from the original note were not included. PATIENT NAME: Skyler Rajan [facility] NO.: [id number] ATTENDING PHYSICIAN: Ernesto Phoenix MD DATE OF SERVICE: 05/30/[address] Bing Arvizu [address] [facility] [address] thank you for referring Skyler Le for an opinion regarding Kidney cancer. Some of the elements of this note have been copied from my previous progress note dated 05/16/25. All the information has been reviewed carefully. [...] unusual findings. Doing well - Works in [employer]. - No smoking - No alcohol. - [...] lasix. - Stopped metformin and started glipizide. Current Outpatient Medications Medication Sig furosemide (LASIX) 40 mg tablet Take 1 tablet by mouth every 12 hours. SPS, WITH SORBITOL, 15-20 gram/60 mL susp [...] Take 0.5 mg by mouth once daily. metFORMIN (GLUCOPHAGE) 1,000 mg tablet Take 500 [...] : Deferred LABS: Glucose (mg/dL) Date Value 05/16/2025 102 Potassium (mmol/L) Date Value 05/16/2025 4.9 Sodium (mmol/L) Date Value 05/16/2025 134 Chloride (mmol/L) Date Value 05/16/2025 99 CO2 (mmol/L) Date Value 05/16/2025 23 Creatinine (mg/dL) Date Value 05/16/2025 2.97 BUN (mg/dL) Date Value 05/16/2025 51 Anion Gap (mmol/L) Date Value 05/16/2025 12 Calcium, Total (mg/dL) Date Value 05/16/2025 9.3 Protein, Total (g/dL) Date Value 05/16/2025 7.5 Albumin (g/dL) Date Value 05/16/2025 4.3 Bilirubin, Total (mg/dL) Date Value 05/16/2025 0.2 Alkaline Phosphatase (U/L) Date Value 05/16/2025 91 AST (U/L) Date Value 05/16/2025 15 ALT (U/L) Date Value 05/16/2025 11 WBC Date Value Ref Range Status 05/16/2025 11.40 (H) 3.70 - 11.00 k/uL Final RBC Date Value Ref Range Status 05/16/2025 4.65 4.20 - 6.00 m/uL Final Hemoglobin Date Value Ref Range Status 05/16/2025 12.4 (L) 13.0 - 17.0 g/dL Final Hematocrit Date Value Ref Range Status 05/16/2025 37.2 (L) 39.0 - 51.0 % Final MCV Date Value Ref Range Status 05/16/2025 80.0 80.0 - 100.0 fL Final MCH Date Value Ref Range Status 05/16/2025 26.7 26.0 - 34.0 pg Final MCHC Date Value Ref Range Status 05/16/2025 33.3 30.5 - 36.0 g/dL Final RDW-CV Date Value Ref Range Status 05/16/2025 18.8 (H) 11.5 - 15.0 % Final Platelet Count Date Value Ref Range Status 05/16/2025 256 150 - 400 k/uL Final MPV Date Value Ref Range Status 05/16/2025 9.2 9.0 - 12.7 fL Final Abs Neut Date Value Ref Range Status 05/16/2025 8.53 (H) 1.45 - 7.50 k/uL Final Lymphocytes % Date Value Ref Range Status 05/16/2025 13.9 % Final Abs Lymph Date Value Ref Range Status 05/16/2025 1.58 1.00 - 4.00 k/uL Final Monocytes % Date Value Ref Range Status 05/16/2025 8.0 % Final Abs [place] Date Value Ref Range Status 05/16/2025 0.91 (H) <0.87 k/uL Final Abs Eosin Date Value Ref Range Status 05/16/2025 0.20 <0.46 k/uL Final Basophils % Date Value Ref Range Status 05/16/2025 1.1 % Final Abs Baso Date Value Ref Range Status 05/16/2025 0.13 (H) <0.11 k/uL Final PATH: SURGICAL PATHOLOGY: [id number] Order: [id number] Collected 02/27/2025 11:37 AM Status: Final result Dx: Neoplasm of uncertain behavior of lef... Test Result Released: Yes (seen) 0 Result Notes View Follow-Up Encounter Component Resulting Agency FINAL DIAGNOSIS A. Lymph nodes, para-aortic, regional resection: - Metastatic renal cell carcinoma with sarcomatoid differentiation in one of two lymph nodes (12). B. Kidney, left, radical nephrectomy: - Renal [...] (HCC) - ICD9: 189.0, ICD10: C64.2 - Proceed with cycle 3 Keytruda today - Continue Lenvatininb. Started Lenvatinib on 04/18/25. - Tolerating well so far without major toxicity. - ECHO showed normal EF on 05/05/25. - Creatinine today is 2.10. He stopped lasix and metformin - Ordered repeat PET scan. - All his questions answered in detail - Follow-up in [address] Bing Arvizu [address] [facility] [address] thank you for allowing me to participate in Skyler Rajan Le care, if there are any questions or concerns please do not hesitate to contact me at the number below. I spent a total of 30 minutes on the date of the service which included preparing to see the patient, [id number] patient care, completing clinical documentation, obtaining and/or reviewing separately obtained history, performing a medically appropriate examination, counseling and educating the patient/family/caregiver, ordering medications, tests, or procedures, communicating with other HCPs (not separately reported), independently interpreting results (not separately reported), communicating results to the patient/family/caregiver, and care coordination (not separately reported). Ernesto Phoenix MD. Hematology/Medical Oncology [facility] [phone] CC: documented in this encounter [facility] 05-30-2025 Note [facility] 05-20-2025 Telephone encounter Note [facility] Patient Support fax received stating Skyler has been approved for free Lenvima until 10/01/2025. Tayo Evans PharmD, BCOP [facility] 05-20-2025 Miscellaneous Notes [facility] Patient Support fax received stating Skyler has been approved for free Lenvima until 10/01/2025. Tayo Evans PharmD, BCOP documented in this encounter [facility] 05-16-2025 Instructions Ernesto Phoenix MD - 05/16/2025 9:30 AM EDT Due for cycle 3 keytruda on 05/30/25 F/u in 2 weeks documented in this encounter [facility] 05-16-2025 History of Present illness Narrative Images from the original note were not included. PATIENT NAME: Skyler Le [facility] NO.: [id number] ATTENDING PHYSICIAN: Ernesto Phoenix MD DATE OF SERVICE: 05/16/[address] Bing Arvizu [address] [facility] [address] thank you for referring Skyler Le for [...] unusual findings. Doing well - Works in [employer] and [employer] room. - No smoking - No alcohol. [...] Range Status 05/09/2025 8.3 % Final Abs [place] Date Value Ref Range Status 05/09/2025 0.87 (H) <0.87 k/uL Final Abs Eosin Date Value Ref Range Status 05/09/2025 0.17 <0.46 k/uL Final Basophils % Date Value Ref Range Status 05/09/2025 0.9 % Final Abs Baso Date Value Ref Range Status 05/09/2025 0.09 <0.11 k/uL Final PATH: SURGICAL PATHOLOGY: [id number] Order: [id number] Collected 02/27/2025 11:37 AM Status: Final result [...] in [address] Bing Arvizu [address] [facility] [address] thank you for allowing me to participate in [facility], if there are any questions or concerns please do not hesitate to contact me at the number below. I spent a total of 20 minutes on the date of the service which included preparing to see the patient, [id number] patient care, completing clinical documentation, obtaining and/or reviewing separately obtained history, performing a medically appropriate examination, counseling and educating the patient/family/caregiver, ordering medications, tests, or procedures, communicating with other HCPs (not separately reported), independently interpreting results (not separately reported), communicating results to the patient/family/caregiver, and care coordination (not separately reported). Ernesto Phoenix MD. 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 His spironolactone was d/c'd and this was changed to lasix. Pt unsure of dose at this time. 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, JUANA [facility] Work Phone: 05-12-2025 Miscellaneous Notes Pt states he notified his sales and production manager of his lab results and he changed his medications. His spironolactone was d/c'd and this was changed to lasix. Pt unsure of dose at this time. 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 RN documented in this encounter [facility] 05-12-2025 Telephone encounter Note OK fine. Thank you [facility] 05-12-2025 Miscellaneous Notes OK fine. Thank you [...] Pt aware of this and verbalized understanding. 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 RN documented in this encounter [facility] 05-12-2025 Telephone encounter Note Pt calls stating [...] Pt aware of this and verbalized understanding. 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 RN [facility] Work Phone: 05-09-2025 Note HNO ID: [id number] Author: BRIGITTE SANTAMARIA RN Service: ? Author Type: Registered Nurse Type: Progress Notes Filed: 05/09/2025 11:18 Note Text: AV aware of CMP, IVF and UA ordered. Script for kayexalate sent to pharmacy. Brigitte Santamaria RN [facility] 05-09-2025 Note [facility] 04-22-2025 Evaluation note Diagnosis Onset Date Resolution Anemia of renal disease acute J joey 2024 3:43pm Chronic kidney disease, stage IV (severe) acute April 22 3:43pm Diabetic nephropathy acute April 22, 2025 3:43pm History of nephrectomy, left acute April 22, 2025 3:43pm Hypertensive nephropathy acute April 22, 2025 3:43pm Hyperuricemia acute April 22, 2025 3:43pm [facility] Work Phone: 1(434) 985-200407-21-2025 Telephone encounter Note* Telephone Encounter - Riya Villeda RN - [...] to call if unable to comply. Riya Villeda RN [facility] Work Phone: 1(971) 232-948607-21-2025 Miscellaneous Notes* Telephone Encounter - Riya Villeda RN - [...] is aware of next appointment in the [facility]: Yes. Verified patient verbalized how [...] to call if unable to comply. Riya Villeda RN documented [facility] History of Present illness Narrative* Myrtle Holland LSW - 04/18/2025 11:48 AM EDT SOCIAL WORK FOLLOW UP NOTE: [facility] Date of service:04/18/2025 Skyler Le is being [...] contact information to reach this SW. Patient deniedany immediate psychosocial needs. SW will remain available [...] PAGER/CONTACT #: RUKHSANA Nicholas documented in this encounterCos[facility]-2025 NoteHNO ID: [id number] Author: OSMANY ECHEVARRIA MA Service: ? Author Type: Hatchery Helper Type: Progress Notes Filed: 04/18/2025 10:53 Note Text: Patient identified by 2 identifiers. EKG performed as ordered. Osmany Echevarria MA [facility]07-18-2025 History of Present illness Narrative* Osmany Echevarria MA - 04/18/2025 10:53 AM EDT Patient identified by 2 identifiers. EKG performed as ordered. Osmany Echevarria MA documented in this encounterCos[facility]07-[facility]25 Telephone encounter Note * Telephone Encounter - Riya Villeda RN - 04/18/2025 10:49 AM EDT Patient started/will start taking Lenvatinib on 04/18/25. Riya Villeda RN [facility] Work Phone: [phone]) [phone] Miscellaneous Notes* Telephone Encounter - Riya Villeda RN - 04/18/2025 10:49 AM EDT Patient started/will start taking Lenvatinib on 04/18/25. Riya Villeda RN documented in this encounterCos[facility]07-[facility]-2025 [facility]07-18-2025 History of Present illness Narrative* Riya Villeda RN - 04/18/2025 10:44 AM EDT ORAL ANTI-CANCER AGENTS EDUCATION daughter and patient [...] affecting learning: Sensory Deficit Sight: Corrective lenses MARTINEZ ASSESSMENT: 1.) Verified that patient knows that [...] provide reinforcement of teaching topics as needed. Riya Villeda RN documented in this encounterCosho[facility]07-[facility]-2025 Instructions* Patient Instructions* Ernesto Phoenix MD - 04/18/2025 9:50 AM EDT Treatment today and in 3 weeks Start lenvatinib 10mg daily Ordered EKG and 2d echo F/u in 3 weeks documented in this encounterCos[facility]07-[facility] History of Present illness Narrative* Ernesto Phoenix MD - 04/18/2025 9:40 AM EDT Images from the original note were not included. PATIENT NAME: Skyler Le CLIN[facility] NO.: [id number] ATTENDING PHYSICIAN: Ernesto Phoenix MD DATE OF SERVICE: 04/18/[address] Bing Arvizu [address] [facility] [address] thank you for referring Skyler Le for an opinion regarding Kidney cancer. Some of the elements of this note have been copied from my previous progress note dated 04/07/25. Allthe information has been reviewed carefully. CHIEF [...] unusual findings. Doing well - Works in [employer] and [employer]. - No smoking - No alcohol. - No family h/o cancer. - No major complaints. 04/07/25: - PET scan (04/01/25)- KARIS DISEASE: Metabolically active enlarged left para- aortic [...] Range Status 04/18/2025 5.3 % Final Abs [place] Date Value Ref Range Status 04/18/2025 0.52 <0.87 k/uL Final Abs Eosin Date Value Ref Range Status 04/18/2025 0.14 <0.46 k/uL Final Basophils % Date Value Ref Range Status 04/18/2025 0.4 % Final Abs Baso Date Value Ref Range Status 04/18/2025 0.04 <0.11 k/uL Final PATH: SURGICAL PATHOLOGY: [id number] Order: [id number] Collected 02/27/2025 11:37 AM Status: Final result [...] of the nephrectomy specimen, We will doIO/TKI. PLAN: 1. Renal cell carcinoma of left kidney (HCC) - ICD9: 189.0, ICD10: C64.2 - Seen by on 04/09/25. Recommended Keytruda Lenvatinib. - Proceed with cycle 1 keytruda today - Advised him to take Lenvatinib 10mg daily due to low GFR - Side effects explained in detail including immune mediated side effects, nausea vomiting diarrheahand-foot syndrome cardiotoxicity, cutaneous toxicity etc. - Ordered EKG and 2d echo. - We will repeat PET scan after 2 months. - F/u with nephrology next week. Creatinine is 2.13 today. 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 - All his questions answered in detail - Follow-up in [address] Bing Arvizu [address] [facility] [address] thank you for allowing me to participate in [facility], if there areany questions or concerns please do not hesitate to contact me at the number below. I spent a total of 30 minutes on the date of the service which included preparing to see the patient, [id number] patient care, completing clinical documentation, obtaining and/or reviewing separately obtained history, performing a medically appropriate examination, counseling and educating the pat ient/family/caregiver, ordering medications, tests, or procedures, communicating with other HCPs (not separately reported), independently interpreting results (not separately reported), communicatingresults to the patient/family/caregiver, and care coordination (not separately reported). Ernesto Phoenix MD. Hematology/Medical Oncology [facility] [phone] CC: documented in this encounterCos[facility]07-[facility] History of Present illness Narrative* Yesica Calderon, RD - 04/17/2025 1:29 PM EDT [facility] Nutrition Therapy: Virtual Consult - Initial Assessment I have communicated my name and active licensure. The patient s identity and physical location wereverified at the time of this visit. Either the patient or their legal sales representative church furniture has been informed of the risks and benefits of -- and alternatives to -- treatment through a remote evaluation andconsents to proceed with the evaluation remotely. 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 Isabella Ovalle MA [facility]07-15-2025 Miscellaneous Notes* Telephone Encounter - Isabella Ovalle MA - 04/15/2025 3:[address] labs for treatment on 04/18 if needed. Isabella Ovalle MA documented in this encounterCosho[facility]07-14-2025 Telephone encounter Note * Telephone Encounter - Deana Luque - 04/14/2025 7:19 AM EDT Scheduled patient for Chemo Education with Karena 04/18 as per message below. Deana Art [facility]07-14-2025 Miscellaneous Notes* Telephone Encounter - Deana Luque - 04/14/2025 7:19 AM EDT Scheduled patient for Chemo Education with Karena 04/18 as per message below. Deana Art * Telephone Encounter - Riya Villeda, JUANA - 04/11/2025 4:30 PM EDT Clerical: Pt will need education when here on 04/18. Please add him to my schedule that day since Herlinda is out. Thanks! Riya Villeda, JUANA * Telephone Encounter - Myrtle Holland LSW - 04/11/2025 3:38 PM EDT Kt, I am working on the drug repository form now. Myrtle Georges * Telephone Encounter - Tamika Evans RPh - 04/11/2025 3:27 PM EDT Myrtle please work Skyler up for Repository fill of Lenvima. Thank you Tayo Evans PharmD, MEET * Telephone Encounter - Ernesto Phoenix MD - 04/11/2025 3:19 PM EDT OK to use Lenvima from our drug repository then while waiting for free drug. Thank you * Telephone Encounter - Tamika Evans RPh - 04/11/2025 2:01 PM EDT We do have some Lenvima in our drug repository we could use to get him started while we apply for free drug. Tayo Evans PharmD, BCOP * Telephone Encounter - Tamika Evans RPh - 04/11/2025 2:01 PM EDT Images from the original note were not included. * Telephone Encounter - Tamika Evans RPh - 04/11/2025 1:32 PM EDT Sameer Young and Alban, The Lenvima ordered for Skyler is not covered by his insurance at all. It is a plan exclusion. Thereis no option for an appeal. The only option for Skyler would be to apply for free drug through the passenger brakeman. This process could take some time. The authorization for Ketyruda is still pending. His insurance plan will cover Cabometyx still, if you wish to go back to that plan. We would still need to change the immunotherapy back to Opdivo and obtain that authorization though. Please advise us on how you would like to move forward. Thank you Tayo Evans, PharmD, BCOP * Telephone Encounter - Isabela Kenny RPh - 04/10/2025 9:31 AM EDT Ambulatory Pharmacy Prior Authorization Note Provider Intervention Required?: No - Pharmacy completed on your behalf. Was the PA documented within the ePA workqueue?: No Rx Plan: Other: [facility]: Lenvima Cover My Meds Martinez: N/A Determination: Denied PA Denied because: Plan EXCLUSION Prior Authorization/Case #: [id number] Prior Authorization Expiration: Time to PA Submission in CMM: 15 min Time to PA Determination in CMM: 1 day Additional Information: Fax PA form to Mikki 04/09/2025 For questions relating to this submission, please contact [facility] at [phone] documented in this encounterCos[facility]07-[facility] Telephone encounter Note * Telephone Encounter - Riya Villeda, JUANA - 04/11/2025 4:30 PM EDT Clerical: Pt will need education when here on 04/18. Please add him to my schedule that day since Herlinda is out. Thanks! Riya Villeda RN [facility] Work Phone: [phone]) [phone] [facility] History of Present illness Narrative* Myrtle Holland LSW - 04/11/2025 3:44 PM EDT SOCIAL WORK FOLLOW UP NOTE: [facility] [...] psychosocial assessment. RUKHSANA Nicholas documented in this encounterCoshocton [facility]07-11-2025 Telephone encounter Note * Telephone Encounter - Myrtle Holland LSW - 04/11/2025 3:38 PM EDT Kt, I am working on the drug repository form now. Myrtle Georges [facility]07-11-2025 Telephone encounter Note* Telephone Encounter - Tamika Evans RPh - 04/11/2025 3:27 PM EDT Myrtle please work Skyler up for Repository fill of Lenvima. Thank you Tayo Evans, PharmD, BCOP [facility] Work Phone: [phone] Telephone encounter Note* Telephone Encounter - Ernesto Phoenix MD - 04/11/2025 3:19 PM EDT OK to use Lenvima from our drug repository then while waiting for free drug. Thank you [facility]07-11-2025 Telephone encounter Note* Telephone Encounter - Tamika Evans RPh - 04/11/2025 2:01 PM EDT We do have some Lenvima in our drug repository we could use to get him started while we apply for free drug. Tayo Evans PharmD, BCOP [facility]07-11-2025 Telephone encounter Note* Telephone Encounter - Tamika Evans RPh - 04/11/2025 2:01 PM EDT Images from the original note were not included. [facility] Telephone encounter Note* Telephone Encounter - Tamika Evans RPh - 04/11/2025 1:32 PM EDT Sameer Young and Alban, The Lenvima ordered for Skyler is not covered by his insurance at all. It is a plan exclusion. Thereis no option for an appeal. The only option for Skyler would be to apply for free drug through the passenger brakeman. This process could take some time. The authorization for Ketyruda is still pending. His insurance plan will cover Cabometyx still, if you wish to go back to that plan. We would still need to change the immunotherapy back to Opdivo and obtain that authorization though. Please advise us on how you would like to move forward. Thank you Tayo Evans PharmD, BCOP [facility]07-11-2025 Telephone encounter Note* Telephone Encounter - Tamika Evans RPh - 04/11/2025 9:49 AM EDT Follow up call placed to [facility]. Elementary Reading Specialist confirmed that they received the fax 04/10/25 for Lenvima prior authorization. Their TAT is 4-10 business days for prior authorizations. Tayo Evans PharmD, BCOP [facility] Work Phone: [phone] Miscellaneous Notes* Telephone Encounter - Tamika Evans RPh - 04/11/2025 9:49 AM EDT Follow up call placed to [facility]. Elementary Reading Specialist confirmed that they received the fax 04/10/25 for Lenvima prior authorization. Their TAT is 4-10 business days for prior authorizations. Tayo Evans PharmD, BCOP * Telephone Encounter - Huyen Burden - 04/10/2025 3:54 PM EDT Patient called back and confirmed RV and treatment for Wednesday 04/18. Huyen Burden * Telephone Encounter - Huyen Burden - 04/10/2025 3:39 PM EDT Call placed to patient, no answer. Left detailed message on VM to call back to reschedule. Tentatively rescheduled patient for Monday, 04/18 starting @ 8:15 am if he can make this appointment. Huyen Burden * Telephone Encounter - 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 RN - 04/10/2025 3:30 PM EDT PSS: can you push pt's appointments on Monday out until later in the week please. Regimen was entered by Dr Young on 04/09. Thanks 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 RN * Telephone Encounter - Tamika Evans RPh - 04/10/2025 3:19 PM EDT Keytruda has not been approved, we were advised to push treatment out until approved. The initial approval was withdrawn when the plan was changed to Opdivo, the PA team has to resubmitfor Keytruda approval again. Anuradha JamesD, BCOP * Telephone Encounter - 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 RN - 04/10/2025 3:03 PM EDT Pharmacy: has Keytruda been approved? Please advise 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 RN * Telephone Encounter - Ernesto Phoenix MD - 04/10/2025 12:58 PM EDT We can do the keytruda infusion on Monday. We can start Lenvatinib once we get it. Thank you * Telephone Encounter - 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 RN - 04/10/2025 11:54 AM EDT Pt calls asking if he's going to [...] push this back a week? Please advise 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 RN documented in this encounterCos[facility]07-[facility]-2025 Telephone encounter Note * Telephone Encounter - Huyen Burden - 04/10/2025 3:54 PM EDT Patient called back and confirmed RV and treatment for Wednesday 04/18. Huyen Burden [facility]07-10-2025 Telephone encounter Note* Telephone Encounter - Nirmala Weiss - 04/10/2025 3:44 PM EDT Patient is scheduled with Dr. Urbina on 04/21/25 @ 3:40. [facility]07-10-2025 Miscellaneous Notes* Telephone Encounter - Nirmala Weiss - 04/10/2025 3:44 PM EDT Patient is scheduled with Dr. Urbina on 04/21/25 @ 3:40. * Telephone Encounter - Deana Luque - 04/07/2025 2:[address] Urbina officel. Their office has received this referral and will be calling patient soonto get scheduled. Deana Art * Telephone Encounter - Nirmala Weiss - 04/02/2025 2:18 PM EDT Referral and records faxed to Dr. Urbina. Steve- please follow up on this, documented in this encounterCoshocton [facility]07-10-2025 Telephone encounter Note * Telephone Encounter - Huyen Burden - 04/10/2025 3:39 PM EDT Call placed to patient, no answer. Left detailed message on VM to call back to reschedule. Tentatively rescheduled patient for Monday, 04/18 starting @ 8:15 am if he can make this appointment. Huyen Burden [facility]07-10-2025 Telephone encounter Note* Telephone Encounter - 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 RN - 04/10/2025 3:30 PM EDT PSS: can you push pt's appointments on Monday out until later in the week please. Regimen was entered by Dr Young on 04/09. Thanks 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 RN [facility] Work Phone: [phone] Telephone encounter Note* Telephone Encounter - Tamika Evans RPh - 04/10/2025 3:19 PM EDT Keytruda has not been approved, we were advised to push treatment out until approved. The initial approval was withdrawn when the plan was changed to Opdivo, the PA team has to resubmitfor Keytruda approval again. Tayo Evans, PharmD, BCOP [facility]07-10-2025 Telephone encounter Note* Telephone Encounter - 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 RN - 04/10/2025 3:03 PM EDT Pharmacy: has Keytruda been approved? Please advise 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 RN [facility]07-10-20[facility] Telephone encounter Note* Telephone Encounter - Ernesto Phoenix MD - 04/10/2025 12:58 PM EDT We can do the keytruda infusion on Monday. We can start Lenvatinib once we get it. Thank you [facility]07-10-2025 Telephone encounter Note* Telephone Encounter - 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 RN - 04/10/2025 11:54 AM EDT Pt calls asking if he's going to [...] push this back a week? Please advise 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 RN [facility]07-10-2025 Telephone encounter Note* Telephone Encounter - Isabela Kenny [facility] - 04/10/2025 9:31 AM EDT Ambulatory Pharmacy Prior Authorization Note Provider Intervention Required?: No - Pharmacy completed on your behalf. Was the PA documented within the ePA workqueue?: No Rx Plan: Other: [facility]: Lenvima Cover My Meds Martinez: N/A Determination: Denied PA Denied because: Plan EXCLUSION Prior Authorization/Case #: [id number] Prior Authorization Expiration: Time to PA Submission in CMM: 15 min Time to PA Determination in CMM: 1 day Additional Information: Fax PA form to K[facility] 04/09/2025 For questions relating to this submission, please contact [facility] at [phone] [facility]07-[facility]-2025 [facility] History of Present illness Narrative* Jeannine Young MD - 04/09/2025 1:55 PM EDT [facility] [place], [place] Department of Hematology & Medical Oncology PATIENT NAME: Skyler Le [facility] NO: [id number] ATTENDING PHYSICIAN: Jeannine Young MD DATE OF [...] cell carcinoma. He had lymph node metastases documentedin surgery and a postoperative PET CT scan [...] Medical Decision Making Level: 4 - Moderate * Christine Bailey RN - 04/09/2025 12:54 PM EDT Additional intake questions: Has the patient had fever, nausea, vomiting, diarrhea, constipation, fatigue for > 1 week? No Does the patient have a decreased appetite? No Does patient want to see a Lining Inserter? No (yes to any of above refer patient to schedulers for dietitian appointment) ) Does patient have any new or increased numbness or tingling of extremities? No Is patient interested in fertility information? No Does patient need any prescription refills? No Does patient have an advanced directive in place? No, Patient referred to [facility] Electronically Signed By: Christine Bailey RN documented in this encounterCoshocton Regional [facility] Center07-09-2025 [facility]07-09-2025 Telephone encounter Note* Telephone Encounter - Isabela Kenny RPh - 04/09/2025 10:27 AM EDT Approval received. Must fill at [facility]. New script pended. Pharmacy contact # . Sent The 517 travel Message to patient updating him on status of medication. Appeal follow-up: Called 04/09/25 : Notified case is in clinical review and could take up to 30 business days. Informed sales representative church furniture that was unacceptable and to please candy the case urgent. Elementary Reading Specialist marked appeal high priority. Case #[id number] [facility] Work Phone: [phone] Miscellaneous Notes* Telephone Encounter - Isabela Kenny RPh - 04/09/2025 10:27 AM EDT Approval received. Must fill at [facility]. New script pended. Pharmacy contact # . Sent The 517 travel Message to patient updating him on status of medication. Appeal follow-up: Called 04/09/25 : Notified case is in clinical review and could take up to 30 business days. Informed sales representative church furniture that was unacceptable and to please candy the case urgent. Elementary Reading Specialist marked appeal high priority. Case #[id number] * Telephone Encounter - Isabela Kenny RPh - 04/02/2025 3:58 PM EDT Ambulatory Pharmacy Prior Authorization Note Provider Intervention Required?: No - Pharmacy completed on your behalf. Was the PA documented within the ePA workqueue?: No Rx Plan: Other: [facility]: Cabometyx Cover My Meds Martinez: NA Determination: Denied PA Denied because: Step therapy requirement - Patient's insurance prefers Pembro/Lenvima first line Prior Authorization/Case #: [id number] Prior Authorization Expiration: Time to PA Submission in CMM: 30 min Time to PA Determination in CMM: 3 days Additional Information: Appeal was faxed to [facility] at (Phone #: ) For questions relating to this submission, please contact [facility] at [phone] documented in this encounterCoshocton [facility] Center07-09-2025 Telephone encounter Note * Telephone Encounter - Huyen Burden - 04/09/2025 9:18 AM EDT FYI: Patient is scheduled with Dr. Young on 04/09. Huyen Burden [facility]07-09-2025 Miscellaneous Notes* Telephone Encounter - Huyen Burden - 04/09/2025 9:18 AM EDT FYI: Patient is scheduled with Dr. Young on 04/09. Huyen Burden * Telephone Encounter - Huyen Burden - 04/07/2025 2:27 PM EDT Sent email to [facility] to refer patient to for second opinion. Huyen Burden documented in this encounterCoshocton Regional Medical Center07-07-2025 NoteC[facility]07-07-2025 History of Present illness Narrative* 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 RN - 04/07/2025 3:18 PM EDT ONCOLOGY PATIENT EDUCATION NOTE TOPIC: Immunotherapy, Medications: [...] was provided/discussed including but not limited to: abdominaldiscomfort, anemia, appetite changes, arthralgia, bowel habit changes, [...] patient, which included the importance of reporting anyfever of 100.4F (38.0C) or greater to the [...] Time Spent: 45 minutes REFERRAL (RECOMMENDATION): N/A 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 RN ORAL ANTI-CANCER AGENTS EDUCATION daughter [...] learning: None Physical limitation affecting learning: None AMRTINEZ ASSESSMENT: 1.) Verified that patient knows that [...] provide reinforcement of teaching topics as needed. 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, RN documented in this encounterCoshocton Regional Medical Center07-07-2025 Telephone encounter Note * Telephone Encounter - Huyen Burden - 04/07/2025 2:27 PM EDT Sent email to [facility] to refer patient to for second opinion. Huyen Burden [facility]07-07-2025 Telephone encounter Note* Telephone Encounter - Alla ArtMelizaen - 04/07/2025 2:[address] Urbina officel. Their office has received this referral and will be calling patient soonto get scheduled. Deana Gold Pss [facility]07-07-2025 Instructions* Patient Instructions* Ernesto Phoenix MD - 04/07/2025 2:06 PM EDT Blood work today Refer to [facility] for a second opinion. Med onc with expertise. Schedule treatment next week. documented in this encounterCoshocton Regional Medical Center07-07-2025 History of Present illness Narrative* Aminata Flor RN - 04/07/2025 1:40 PM EDTSummary: IRB [id number] Informed Consent CASE [id number] (IRB [id number]): Tissue [...] for a pretreatment research blood draw. Aminata Flor, MSN, RN Research Nurse Coordinator documented in this encounterCoshocton Regional Medical Center07-07-2025 NoteC[facility]07-07-2025 History of Present illness Narrative* Ernesto Phoenix MD - 04/07/2025 1:20 PM EDT Images from the original note were not included. PATIENT NAME: Skyler Rajan [facility] NO.: [id number] ATTENDING PHYSICIAN: Ernesto Phoenix MD DATE OF SERVICE: 04/07/[address] Bing Arvizu [id number] [facility] [address] thank you for referring Skyler Le for [...] unusual findings. Doing well - Works in [employer]. - No smoking - No alcohol. - No family h/o cancer. - No major complaints. 04/07/25: - PET scan (04/01/25)- KARIS DISEASE: Metabolically active enlarged left para- aortic [...] Range Status 01/24/2025 8.5 % Final Abs [place] Date Value Ref Range Status 01/24/2025 1.09 (H) <0.87 k/uL Final Abs Eosin Date Value Ref Range Status 01/24/2025 0.09 <0.46 k/uL Final Basophils % Date Value Ref Range Status 01/24/2025 0.5 % Final Abs Baso Date Value Ref Range Status 01/24/2025 0.07 <0.11 k/uL Final PATH: SURGICAL PATHOLOGY: [id number] Order: [id number] Collected 02/27/2025 11:37 AM Status: Final result [...] histology of the nephrectomy specimen, We will doNivo cabo. - Refer to [facility] for a second opinion. - Check CBC CMP LDH, foundation one - All his questions answered in detail - Follow-up in [address] Bing Arvizu [address] [facility] [address] thank you for allowing me to participate in [facility], if there areany questions or concerns please do not hesitate to contact me at the number below. I spent a total of 20 minutes on the date of the service which included preparing to see the patient, vpwc-vv-ewwi patient care, completing clinical documentation, obtaining and/or reviewing separately obtained history, performing a medically appropriate examination, counseling and educating the pat ient/family/caregiver, ordering medications, tests, or procedures, communicating with other HCPs (not separately reported), independently interpreting results (not separately reported), communicatingresults to the patient/family/caregiver, and care coordination (not separately reported). Ernesto Phoenix MD. Hematology/Medical Oncology [place] [phone] CC: documented in this encounterCoshocton Regional Medical Center07-07-2025 NoteC[facility]07-03-2025 Telephone encounter Note* Telephone Encounter - Krzysztof Gil MA - 04/03/2025 10:34 AM EDT Sent letter to patient via [employer]erved, left message for patient advising a return to work letter has been sent to his mychart Krzysztof Gil MA [facility]07-03-2025 Miscellaneous Notes* Telephone Encounter - Krzysztof Gil MA - 04/03/2025 10:34 AM EDT Sent letter to patient via [employer], left message for patient advising a return to work letter has been sent to his mychart Krzysztof Gil MA * Telephone Encounter - Tamiko Jimenes - 04/02/2025 3:39 PM EDT Patient called into office requesting a release back to work letter from recent surgery with Dr. Arvizu. He is asking for release date of 04/14/2025. Patient can be reached on number listed in [employer] as home/mobile. documented in this encounterCoshocton Regional Medical Center07-02-2025 Telephone encounter Note * Telephone Encounter - Isabela Kenny RP - 04/02/2025 3:58 PM EDT Ambulatory Pharmacy Prior Authorization Note Provider Intervention Required?: No - Pharmacy completed on your behalf. Was the PA documented within the ePA workqueue?: No Rx Plan: Other: [facility]: Cabometyx Cover My Meds Martinez: NA Determination: Denied PA Denied because: Step therapy requirement - Patient's insurance prefers Pembro/Lenvima first line Prior Authorization/Case #: [id number] Prior Authorization Expiration: Time to PA Submission in CMM: 30 min Time to PA Determination in CMM: 3 days Additional Information: Appeal was faxed to [employer] at (Phone #: ) For questions relating to this submission, please contact [facility] at [phone] [facility]07-02-2025 Telephone encounter Note* Telephone Encounter - Tamiko Jimenes - 04/02/2025 3:39 PM EDT Patient called into office requesting a release back to work letter from recent surgery with Dr. Arvizu. He is asking for release date of 04/14/2025. Patient can be reached on number listed in [employer] as home/mobile. [facility] Work Phone: [phone] Telephone encounter Note* Telephone Encounter - Nirmala Weiss - 04/02/2025 2:18 PM EDT Referral and records faxed to Dr. Urbina. Steve- please follow up on this, [facility]07-01-2025 Telephone encounter Note* Telephone Encounter - 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 RN - 04/01/2025 2:27 PM EDT Pt in the office today for chemo ed and does not want us to complete these FMLA forms at this time.Pt feels that he sent us the wrong forms, and will reach out to us when he sends the correct ones. 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, JUANA [facility] Work Phone: 1([phone]) 504-912207-01-2025 Miscellaneous Notes* Telephone Encounter - 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 RN - 04/01/2025 2:27 PM EDT Pt in the office today for chemo ed and does not want us to complete these FMLA forms at this time.Pt feels that he sent us the wrong forms, and will reach out to us when he sends the correct ones. 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 RN documented in this encounterCoshocton Regional Medical Center07-01-2025 [facility]07-01-2025 History of Present illness Narrative* 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 RN - 04/01/2025 2:15 PM EDT ONCOLOGY PATIENT EDUCATION NOTE TOPIC: Immunotherapy, Medications: [...] was provided/discussed including but not limited to: abdominaldiscomfort, anemia, appetite changes, arthralgia, bowel habit changes, chest pain, diet, electrolyte disturbances, fatigue, headache, hypersensitivity reaction, infection, kidney toxicity, myalgia, na usea/vomitting, neutropenia, rash, risk for DVT, shortness of [...] patient, which included the importance of reporting anyfever of 100.4F (38.0C) or greater to the healthcare team as noted on the provided wallet card and/or magnet. YES - Cancer Wellness Program Pamphlet. YES - [address] [place] [address] Information. YES - Patient services information. YES [...] about different insurance options he has through [employer]. Pt did my chart message FMLA forms for our office to fill out. These were printed off at his visit today and pt did not want these forms filled out at this time because they are the wrong forms. Pt will let us know if he has other forms to fill out. 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 RN * Magy Viveros [facility] - 04/01/2025 11:00 AM EDT Images from the original note were not included. [facility] Department of Pharmacy Oncology Pharmacy Medication Education Patient Name: Skyler Le Primary Oncologist: Alban Diagnosis: Renal cell carcinoma L kidney Skyler Le is a 65 year old patient here today for medication education for IV PEMBROLIZUMAB. Drug Interactions: Clinically significant interactions with chemotherapy, immunosuppression, or other standard of caretreatment plan medications anticipated: No. There are no [...] time (15 minute increments) with the patient Magy Viveros RPh documented in this encounterCoshocton Regional Medical Center07-01-2025 NoteC[facility]07-01-2025 History of Present illness Narrative* Syl Stubbs RN - 04/01/2025 8:45 AM EDT Radiology Service Progress Note DATE OF [...] SIGNATURE: Syl Stubbs RN PATIENT NAME: Skyler Le DATE: April 01, 2025 TIME: 9:06 AM * Riya Mayo RT(R) - 04/01/2025 8:45 AM EDT RADIOLOGY SERVICE PROGRESS NOTE SERVICE DATE: 04/01/2025 SERVICE TIME: 9:08 AM PATIENT IDENTITY VERIFICATION COMPLETED USING TWO (2) STANDARD IDENTIFIERS: Name and Date of confirmed by patient verbally POST EXAM PIV STATUS: Discontinued PROCEDURE TYPE: NM INJECT: PET/CT BODY SCAN. 16.6 mCi F18 FDG. Administered By: . No other medications given.. ADMINISTRATION TIME: 0854 PATIENT DISCHARGED TO: Ambulatory patient, left AL department area. Is this a therapy: No A Diagnostic radioactive procedure has taken place, with no further precautions necessary other than routine body substance precautions. More information regarding radiation safety can be found usingthis link: [email or web address]%[email or web address] SIGNATURE: RT Paulo(Kristi) PATIENT NAME: Skyler Le DATE: April 01, 2025 TIME: 9:08 AM PAGER/CONTACT #: documented in this encounterCoshocton Regional Medical Center07-01-2025 NoteC[facility]07-01-2025 NoteC[facility]06-27-2025 Telephone encounter Note* Telephone Encounter - 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 RN - 03/28/2025 12:45 PM EDT Pt will be in for education on Monday. Please sign pending orders. Thanks 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 RN [facility]06-27-2025 Miscellaneous Notes* Telephone Encounter - 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 RN - 03/28/2025 12:45 PM EDT Pt will be in for education on Monday. Please sign pending orders. Thanks 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 RN documented in this encounterCoshocton Regional Medical Center06-19-2025 Telephone encounter Note * Telephone Encounter - Tamika Evans RP - 03/20/2025 9:32 AM EDT Orders entered and routed in a separate encounter. Tayo Evans PharmD, BCOP [facility] Work Phone: 1(125) 991-928406-19-2025 Miscellaneous Notes* Telephone Encounter - Tamika Evans RP - 03/20/2025 9:32 AM EDT Orders entered [...] schedule it. Thank you documented in this encounterCoshocton Regional Medical Center06-19-2025 Telephone encounter Note * Telephone Encounter - Huyen Burden - 03/20/2025 8:53 AM EDT Patient is scheduled to begin on 04/07. Huyen Burden [facility]06-19-2025 Telephone encounter Note* Telephone Encounter - Ernesto Phoenix MD - 03/20/2025 8:31 AM EDT Please load keytruda 200mg every 3 weeks and schedule it. Thank you [facility]06-17-2025 Instructions* Patient Instructions* Ernesto Phoenix MD - 03/18/2025 4:24 PM EDT Ordered PET scan and MRI brain Refer to nephrology Chemo teach for keytruda Schedule keytruda treatment in 2 weeks F/u in 2 weeks documented in this encounterCoshocton Regional Medical Center06-17-2025 History of Present illness Narrative* Ernesto Phoenix MD - 03/18/2025 4:00 PM EDT Images from the original note were not included. PATIENT NAME: Skyler Le CLINIC NO.: [id number] ATTENDING PHYSICIAN: Ernesto Phoenix MD DATE OF SERVICE: March Dear Dr. Bing Arvizu [id number] [facility] [address] thank you for referring Skyler Le for [...] unusual findings. Doing well - Works in [employer]. - No smoking - No alcohol. - [...] Range Status 01/24/2025 8.5 % Final Abs [place] Date Value Ref Range Status 01/24/2025 1.09 (H) <0.87 k/uL Final Abs Eosin Date Value Ref Range Status 01/24/2025 0.09 <0.46 k/uL Final Basophils % Date Value Ref Range Status 01/24/2025 0.5 % Final Abs Baso Date Value Ref Range Status 01/24/2025 0.07 <0.11 k/uL Final PATH: SURGICAL PATHOLOGY: [id number] Order: [id number] Collected 02/27/2025 11:37 AM Status: Final result [...] in [address] Bing Arvizu [address] [facility] [address] thank you for allowing me to participate in Skyler Le care, if there areany questions or concerns please do not hesitate to contact me at the number below. I spent a total of 60 minutes on the date of the service which included preparing to see the patient, hnyb-vo-ichf patient care, completing clinical documentation, obtaining and/or reviewing separately obtained history, performing a medically appropriate examination, counseling and educating the pat ient/family/caregiver, ordering medications, tests, or procedures, communicating with other HCPs (not separately reported), independently interpreting results (not separately reported), communicatingresults to the patient/family/caregiver, and care coordination (not separately reported). Ernesto Phoenix MD. Hematology/Medical Oncology [facility] [phone] CC: documented in this encounterCoshocton Regional Medical Center06-17-2025 NoteC[facility]06-13-2025 Hospital Discharge instructions Patient Education 03/14/2025 08:40:04 [...] a tumor to grow. This type of therapytries to limit damage to your healthy cells. [...] you need help quitting, ask your health careprovider. Get enough sleep. Most adults need 6 8 hours of sleep each night. During treatment, you may need more sleep. General instructions Take rmdw-jyj-yujimpp and prescription medicines only as told by your health care provider. Consider joining a support group. This can help you cope with the stress of having kidney cancer. Work with your health care provider to manage any side effects of treatment. Keep all follow-up visits. Your health care provider will want to make sure your treatment is working. Where to find more information [place] [employer]: cancer.org National Cancer [place] (NCI): cancer.gov Contact a health care provider [...] provider. Document Revised: 02/28/2023 Document Reviewed: 02/28/2023 Virtual Call Center Patient Education 2023 [employer]. Follow Up Care 12/20/2024 09:17:13 With:KARLA JAMES, Nikolai Berry, URL Address: [address] [place] [address]- When: Unknown [facility] 06-13-2025 NotePatient Education Oncology Kidney Cancer Kidney cancer is [...] need more sleep. General instructions ??? Take eczl-yju-qpvsojt and prescription medicines only as told by [...] working. Where to find more information ??? [place] [employer]: cancer.org ??? National Cancer [place] (NCI): cancer.gov Contact a health care provider [...] short of breath. ?? (more content not included)...[facility]06-11-2025 Telephone encounter Note* Telephone Encounter - Bing Arvizu MD - 03/12/2025 2:10 PM EDT [...] 6 weeks after surgery. Bing Arvizu MD [facility] Work Phone: 1(268) 513-555306-11-2025 Miscellaneous Notes* Telephone Encounter - Bing Arvizu MD - 03/12/2025 2:10 PM EDT [...] surgery. Bing Arvizu MD documented in this encounterCoshocton Regional Medical Center06-11-2025 Miscellaneous Notes* Telephone Encounter - Darrell Justin RN - 03/12/2025 1:30 PM EDT [employer] forms completed and faxed to [employer]. Fax confirmation received. Completed forms placed at the front desk auxiliary to be scanned into patients chart. Darrell Justin RN documented in this encounterCos[facility] Telephone encounter Note * Telephone Encounter - Darrell Justin RN - 03/12/2025 1:30 PM EDT [employer] forms completed and faxed to [employer]. Fax confirmation received. Completed forms placed at the front desk auxiliary to be scanned into patients chart. Darrell Justin RN [facility]06-10-[facility] Instructions* Patient Instructions* Tamanna Zhu APRN.CNP - 03/11/2025 9:31 AM EDT Spoke with [...] have labs obtained today. documented in this encounterCoshocton [facility]06-10-2025 Telephone encounter Note * Telephone Encounter - Aurea Rodriguez MD [...] togo to ED closer to home as [place] away. All questions answered. Patient inquiring about his pathology results, will follow up with Dr. Arvizu. Aurea Rodriguez MD Urology Resident PGY-1 Pager [facility] Work Phone: [phone]) 763-565806-10-2025 Miscellaneous Notes* Telephone Encounter - Aurea Rodriguez MD - [...] togo to ED closer to home as [place] is almost [place] hour away. All questions answered. Patient inquiring about his pathology results, will follow up with Dr. Arvizu. Aurea Rodriguez MD Urology Resident PGY-1 Pager documented in this encounterCoshoct[facility]06-04-2025 Telephone encounter Note * Telephone Encounter - Angela Luis - 03/05/2025 1:49 PM EDT Patient needs the provider to complete FMLA paperwork for his medical leave. Patient gave provider the paperwork at his office visit on 01/03/25. Please advise [facility]06-04-[facility]25 Miscellaneous Notes* Telephone Encounter - Angela Luis - 03/05/2025 1:49 PM EDT Patient needs the provider to complete FMLA paperwork for his medical leave. Patient gave provider the paperwork at his office visit on 01/03/25. Please advise documented in this encounterCoshocton [facility]05-30-2025 NoteHNO ID: [id number] Author: TAMANNA ZHU APRN.SUSTAINABILITY ENGINEER Service: Urology Author Type: Nurse Practitioner Type: Progress Notes Filed: 03/12/2025 10:45 Note Text: Documentation Query Please specify a diagnosis associated with the Clinical Indicators for this patient {Please select the appropriate option:400043:: Obesity Class 2 This document will become part of the patient's medical record. Tamanna Zhu APRN.CNPStillman [id number] NoteHNO ID: [id number] Author: TAMANNA ZHU APRN.CNP Service: Urology Author Type: Nurse Practitioner Type: Progress Notes Filed: 03/12/2025 10:45 Note Text: Documentation Query Please clarify the diagnosis associated with the clinical indicators {Please select the appropriate option:[id number]:: Acute kidney injury , This document will become part of the patient's medical record.[facility] 02-28-2025 NoteHNO ID: [id number] Author: TAMANNA ZHU APRN.CNP Service: Urology Author Type: Nurse Practitioner Type: Progress Notes Filed: 03/10/2025 09:26 Note Text: Documentation Query Please clarify the diagnosis associated with the clinical indicators for this patient Provider Response: {Please select the appropriate option:[id number]:: Hyperkalemia supported by: Continued Lab Monitoring, Continued Symptom Monitoring, and Other, please specify treatment if hyperkalemia with IV furosemide, dextrose/insulin , This document will become part of the patient's medical record. Tamanna Zhu APRN.[facility]05-30-2025 NoteHNO ID: [id number] Author: JUAN ANTONIO KATZ CPhT Service: ? Author Type: Manager Respiratory Care Type: Plan of Care Filed: 02/28/2025 15:07 Note Text: PHARMACY BEDSIDE DELIVERY SERVICE Patient Name: Skyler Le The marked outpatient medications were Filled at: [place] and delivered to the patient's bedside to [...] as: ZESTORETIC Juan Antonio Katz CPhT PAGER: [phone] February 28, 2025 3:07 [facility]05-30-2025 NoteHNO ID: [id number] Author: BING ARVIZU MD Service: Urology Author Type: Physician Type: Progress Notes Filed: 02/28/2025 07:52 Note Text: [facility] UROLOGY PROGRESS NOTE Name: Skyler Le Bed: [id number] Date: 02/28/2025 After Hours [facility] Urology Service Pager: [phone] ASSESSMENT AND PLAN Skyler Le is a [...] please page the urology on-call pager at: [phone] for [facility] [phone] for Meraux mechanical design 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 I agree with the plan above and provided direct supervision of the above provider during this patient's care. Bing Arvizu MDStillman [id number] NoteHNO ID: [id number] Author: BETH MASTERSON DO Service: Nursing Author [...] procedure. Beth Masterson DO SIGNATURE: Ciera Honeycutt APRN.CRNA PATIENT NAME: Skyler Le DATE: February 27, 2025 TIME: 9:04 AM CSN: [id number] NoteHNO ID: [id number] Author: CIERA HONEYCUTT APRN.CRNA Service: Nursing Author Type: Nurse Systematic Theology Professor Type: Anesthesia Procedure Notes Filed: 02/27/2025 09:12 [...] Imaging Guidance Used: No SIGNATURE: Ciera Honeycutt APRN.GAS TRUCK DRIVER PATIENT NAME: Skyler Le DATE: February 27, 2025 TIME: 9:03 AM CSN: [id number] [place], [place] [id number] NoteHNO ID: [id number] Author: CIERA HONEYCUTT APRN.GAS TRUCK DRIVER Service: Nursing Author Type: Nurse Systematic Theology Professor Type: Anesthesia Procedure Notes Filed: 02/27/2025 09:12 Note Text: ANESTHESIOLOGY PROCEDURE NOTE Airway General Information Procedure Start Time/Medication Administration: 02/27/2025 7:56 AM Procedure End Time: 02/27/2025 7:59 AM Patient location during procedure: OR Patient identity confirmed: arm band, care teamsite developer and patient Staffing Anesthesiologist: Beth Masterson DO GAS TRUCK DRIVER: Ciera Honeycutt APRN.GAS TRUCK DRIVER SRNA: Tianna Diego SRNA Performed by: ELICIA [...] handed mask with oral airway SIGNATURE: Ciera Honecyutt APRN.CRNA PATIENT NAME: Skyler Le DATE: February 27, 2025 TIME: 9:00 AM CSN: [id number] Telephone encounter Note * Telephone Encounter - Rob Romero APRN.CNP - 02/10/2025 9:36 AM EDT I have ordered two Venofer Infusions for patient . The best location for this patient is the [facility] to have these completed. Rob Romero NP-C [facility]05-12[facility]25 Miscellaneous Notes* Telephone Encounter - Rob Romero APRN.CNP - 02/10/2025 9:36 AM EDT I have ordered two Venofer Infusions for patient . The best location for this patient is the [facility] to have these completed. Rob COSBY documented in this encounterCoshocton [facility] Center05-09-2025 Instructions* Patient Instructions* Rob Romero APRN.CNP - 02/07/2025 2:16 PM EDT PATIENT PREOPERATIVE INSTRUCTIONS Bing Arvizu MD has scheduled you for your procedure at this surgery center: [facility]: [phone] --[phone] [phone]. Please check in on the1st floor at registration desk 6. Please read [...] SURGERY If you are currently using a dent-llu-lnpy injectable or oral medication for diabetes or weight loss such as Dulaglutide (Trulicity), Exenatide (Byetta, Bydureon), Liraglutide (Victoza, Saxenda), Semaglutide (Ozempic, Wegovy, Rybelsus), or Tirzepatide (Mounjaro), the medicine should be stopped at least 7 days before surgery. These medicines can cause food to remain in your stomach for a very longtime and increase the risks from surgery and [...] Procedures: - YOU MUST HAVE A RESPONSIBLE WOODEN FENCE ERECTOR TAKE YOU HOME. A FUEL CELL DESIGNER OR MACHINE ZIPPER TRIMMER CANNOT BE MADE A RESPONSIBLE WOODEN FENCE ERECTOR. - We recommend that a responsible person stays with you overnight to take care of you. - You cannot stay in a hotel alone after outpatient surgery. You will not be permitted to have yoursurgery, if you do not have someone to [...] Advance Directive, please fax a copy to [phone] or email to for it to be added to your chart. If you do not have an Advance Directive, you can find the appropriate form and more information at [email or web address]. We recommend that youcomplete the Advance Directive form found on the website and bring it with you the day of your surgery. It can be witnessed and scanned into your chart that day. Rob Romero APRN.CNP documented in this encounterCoshocton [facility]05-09-2025 History and physical note * Rob Romero APRN.CNP - 02/07/2025 2:02 PM EDT Images from the original note were not included. [facility] HISTORY AND PHYSICAL EXAMINATION SERVICE DATE: 02/07/2025 SERVICE TIME: 2:02 PM PRIMARY CARE PHYSICIAN: Jessica Davalos CNP, SUSTAINABILITY ENGINEER REASON FOR VISIT: Skyler Le is a [...] Taylor present: no Lip Bite Test: II Microretrognathia/Micronagthia/Recessed Chin: No DENTAL Dental findings: teeth intact. [...] 0 (ROSA M compliant with CPAP ) [id number] Score: Age: 65-74 Sex: male CHF history: No Hypertension history: Yes Stroke/TIA/thromboembolism history: No Vascular disease history: No Diabetes history: Yes [id number] Score: 3 ARISCAT Score: Age: 51-80 Preoperative [...] evaluation of a renal mass seen on CTA/P on 12/14/2024. The patient reports that a renal tumor was discovered following an episode of hematuria. Initial evaluation included a cystoscopy and urine cytology, which were negative for malignant cells. Subsequent CT imaging revealed a renal tumor REVIEW OF SYSTEMS: PAIN ASSESSMENT: General: No weight loss, malaise or fevers. Neuro: No history of TIA's, stroke, COAL LOADER tumor, impaired sensorium, hemiplegia, paraplegia or quadraplegia. [...] or clotting disorder. Pt is not taking anti- coagulation or platelet medications. No history of hematological [...] Admin: COVID-19 vaccine, age 12+ yr, bivalent ([employer]) 02/26/2022 Imm Admin: COVID-19 original vaccine, age 12+ yr, monovalent ([employer] - [employer]) Only the first 5 [...] Skyler Le DATE: 02/07/2025 TIME: 2:13 PM [facility]05-09-[facility] History and physical note* Rob Romero APRN.CNP - 02/07/2025 2:02 PM EDT Images from the original note were not included. [facility] Pre[facility]esthesia [facility]ation [facility] HISTORY [...] Taylor present: no Lip Bite Test: II Microretrognathia/Micronagthia/Recessed Chin: No DENTAL Dental findings: teeth intact. [...] 0 (ROSA M compliant with CPAP ) [id number] Score: Age: 65-74 Sex: male CHF history: No Hypertension history: Yes Stroke/TIA/thromboembolism history: No Vascular disease history: No Diabetes history: Yes [id number] Score: 3 ARISCAT Score: Age: 51-80 Preoperative [...] evaluation of a renal mass seen on CTA/P on 12/14/2024. The patient reports that a renal tumor was discovered following an episode of hematuria. Initial evaluation included a cystoscopy and urine cytology, which were negative for malignant cells. Subsequent CT imaging revealed a renal tumor REVIEW OF SYSTEMS: PAIN ASSESSMENT: General: No weight loss, malaise or fevers. Neuro: No history of TIA's, stroke, COAL LOADER tumor, impaired sensorium, hemiplegia, paraplegia or quadraplegia. [...] or clotting disorder. Pt is not taking anti- coagulation or platelet medications. No history of hematological [...] Admin: COVID-19 vaccine, age 12+ yr, bivalent ([employer]) 02/26/2022 Imm Admin: COVID-19 original vaccine, age 12+ yr, monovalent ([employer]) Only the first 5 [...] 02/07/2025 TIME: 2:13 PM documented in this encounterCoshocton [facility] Center04-10-2025 Telephone encounter Note * Telephone Encounter - Orquidea Terrazas - 01/09/2025 10:24 AM EDT Left voice message on patients phone and also 's Irene to call Interventional Radiology to schedule his biopsy. They have left 2 messages to call to schedule appointment. [facility]04-10-2025 Miscellaneous Notes* Telephone Encounter - Orquidea Terrazas - 01/09/2025 10:24 AM EDT Left voice message on patients phone and also 's Irene to call Interventional Radiology to schedule his biopsy. They have left 2 messages to call to schedule appointment. documented in this encounterCoshocton [facility] Center04-07-2025 Telephone encounter Note * Telephone Encounter - Jamar Carlton - 01/06/2025 2:02 PM EDT Left vm for patient to call back- 1st attempt [facility]04-07-2025 Miscellaneous Notes* Telephone Encounter - Jamar Carlton - 01/06/2025 2:02 PM EDT Left vm for patient to call back- 1st attempt * Telephone Encounter - Rivas Santana MD - 01/06/2025 9:21 AM EDT RADIOLOGIST REQUEST / APPROVAL FORM STAFF RADIOLOGIST:Max [...] for this procedure: intermediate-high risk. Reference from [facility] Machine Captain: https://ccf.[employer]Vide[employer].com/dotNet/documents/?paacg=64412 STAFF SIGNATURE: Rivas Santana MD DATE: January 06, 2025 TIME: 9:21 AM * Telephone Encounter - Sia Kendall LPN - 01/06/2025 7:58 AM EDT BX. 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 If a percutaneous biopsy or drainage is not felt to be safe or an alternative method for establishing a diagnosis is possible, this will be discussed directly with the requesting physician. documented in this encounterCoshocton [facility] Center04-07-2025 Telephone encounter Note * Telephone Encounter - Rivas Santana MD - 01/06/2025 9:21 AM EDT RADIOLOGIST REQUEST / APPROVAL FORM STAFF RADIOLOGIST:Max [...] for this procedure: intermediate-high risk. Reference from [facility] Machine Captain: https://ccf.[email or web address]/dotNet/documents/?bfoup=00817 STAFF SIGNATURE: Rivas Santana MD DATE: January 06, 2025 TIME: 9:21 AM [facility]04-07-[facility] Telephone encounter Note* Telephone Encounter - Sia Kendall LPN - 01/06/2025 7:58 AM EDT BX. 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 If a percutaneous biopsy or drainage is not felt to be safe or an alternative method for establishing a diagnosis is possible, this will be discussed directly with the requesting physician. [facility]04-04-2025 Note* Addendum Note - Bing Arvizu MD - 01/03/2025 3:33 PM EDTAddended by: BING ARVIZU on: 01/03/2025 03:33 PM Modules accepted: Orders [facility]04-04-2025 Miscellaneous Notes* Addendum Note - Bing Arvizu MD - 01/03/2025 3:33 PM EDTAddended by: BING ARVIZU on: 01/03/2025 03:33 PM Modules accepted: Orders documented in this encounterCoshocton Regional Medical Center04-04-2025 History of Present illness Narrative* Bing Arvizu MD - 01/03/2025 2:20 PM EDT [facility] NEW PATIENT HISTORY AND PHYSICAL EXAM PATIENT INFO: Skyler Le 64 year old REFERRING M.D.: SELF CHIEF COMPLAINT: The patient is a 64-year-old male presenting for evaluation of a renal tumor.Renalmass HISTORY: Skyler Le is a 64 year old male with a hx of BPH w/ LUTS presenting for evaluationof a renal mass seen on CT A/P [...] recent post-void residual ultrasound showed a residual volumeof 37 mL, which he was informed was [...] was discussed with the patient or authorized sales representative church furniture. The patient or authorized sales representative church furniture has agreed to proceed with the sensitive [...] due to his diabetes and other medical conditions.If it is urothelial then he will need a robotic nephro ureterectomy. Described the procedures in detail. Will schedule him for the kidney mass biopsy as well as surgery for the kidney. Discussed R/B/A of a robotic/laparoscopic, possible open left partial nephrectomy. Discussed risks of bleeding (possibly requiring transfusion), infection, injury to adjacent structures (e.g. spleen,pancreas, aorta, among other structures). Discussed possible need for conversion to a radical nephre ctomy, or conversion to an open procedure. We talked about possible medical complications including, but not limited to cardiac, respiratory and renal complications, as well as DVT/PE and other life threatening or minor complications. We talked about the possibility of urine leak and/or delayed lianna l bleeding requiring intervention. Patient understood these risks [...] easy for a few days to minimize bleedingrisk. - Patient understands and agrees with the [...] of bleeding. The radiologist will provide specific post- procedure instructions. - Once the biopsy results are [...] Surgery is tentatively planned for mid-January. My energy scheduler will contact you to confirm the date. We discussed your kidney function: - Blood work has been ordered to assess your current kidney function. Please complete this lab testtoday in the hospital lobby. - The results will help determine whether your right kidney can adequately support your body if theleft kidney is removed. Your right kidney appears [...] within the next two weeks. - My energy scheduler will contact you to confirm the date of your surgery, tentatively planned for mid. - If you have any questions or concerns, please contact our office. The patient consented to the use of [employer] software for draft documentation of the visit consistent with [facility] s Notice of Privacy Practices. By signing my name below, I, Al Finney, attest that this documentation has been prepared under the direction and in the presence of Dr. Arvizu. Electronically signed, Wlae Knox Provider Attestation: Bing Aceves MD, personally performed the services described in this documentation. All medical record entries made by the scribe were at my direction and in my presence. I have reviewed thechart and discharge instructions (if applicable) and agree that the record reflects my personal perf ormance and is accurate and complete. Dr. Bing Arvizu MD January 03, 2025 3:10 PM New Patient is sent as a consult from Dr. Bobo Acosta for my opinion regarding left renal neoplasm.My final recommendations will be communicated back to the requesting physician by way of Medical Record. documented in this encounterCoshocton Regional Medical Center04-04-2025 NoteHNO ID: [id number] Author: BING ARVIZU MD Service: ? Author Type: Physician Type: Progress Notes Filed: 01/03/2025 15:11 Note Text: [facility] NEW PATIENT HISTORY AND PHYSICAL EXAM PATIENT [...] resident, medical s (more content not included)... [id number] NotePatient Education Urology Transurethral Resection of the Prostate [...] light, a camera, and an electric cutting edge(resectoscope) is passed through the urethra and into the prostate. The opening of the urethra is at the end of the penis. Tell a health care provider about: ??? Any allergies you have. ??? All medicines you are taking, including vitamins, herbs, eye drops, creams, and nuci-ves-shhwejo medicines. ??? Any problems you or family [...] tells you to take them. ??? Taking aith-rzb-hbiypeo medicines, vitamins, herbs, and supplements. Surgery safety [...] your bladder. The cathete (more content not included)...[facility]01-23-2025 Evaluation + Plan note Diagnostic Tests Pending * Urine Culture 10/24/24 [facility] [id number] Hospital Discharge instructions Patient Education 10/24/2024 09:44:19 Constipation, Adult Constipation, Adult Constipation is when a person has fewer than three bowel movements in a week, has difficulty havinga bowel movement, or has stools (feces) that are dry, hard, or larger than normal. Constipation maybe caused by an underlying condition. It may [...] as fried or sweet foods. These include citizen of [place] fries, hamburgers, cookies, candies, and soda. Drink enough fluid to keep your urine pale yellow. General instructions Exercise regularly or as told by your health care provider. Try to do 150 minutes of moderate exercise each week. Use the bathroom when you have the urge to go. Do not hold it in. Take tgff-lco-pakdmut and prescription medicines only as told by [...] bowel movements in a week, has difficulty havinga bowel movement, or has stools (feces) that are dry, hard, or larger than normal. Eat foods that have a lot of fiber, such as beans, whole grains, and fresh fruits and vegetables. Drink enough fluid to keep your urine pale yellow. Take idbb-pxe-owtsprx and prescription medicines only as told by your health care provider. This includes any fiber supplements. This information is not intended to replace advice given to you by your health care provider. Make sure you discuss any questions you have with your health care provider. Document Revised: 08/02/2023 Document Reviewed: 08/02/2023 [employer] Patient Education 2023 [employer] 10/23/2024 16:04:03 Hematuria, Adult Hematuria, Adult Hematuria is blood in the urine. Blood may be visible in the urine, or it may be identified with a test. This condition can be caused by infections of the bladder, urethra, kidney, or prostate. Otherpossible causes include: Kidney stones. Cancer of the [...] blood in your urine, even if it ispainless or the blood stops without treatment. Blood in the urine, when it happens and then stops and then happens again, can be a symptom of a very serious condition, including cancer. There is no pain in the initial stages of many urinary cancers. Follow these instructions at home: Medicines Take uxtn-jhu-lxeozqr and prescription medicines only as told by your health care provider. If you were prescribed an antibiotic medicine, take it as told by your health care provider. Do notstop taking the antibiotic even if you start to feel better. Eating and drinking Drink enough fluid to keep your urine pale yellow. It is recommended that you drink 3 4 quarts (2.83.8 L) a day. If you have been diagnosed with an infection, drinking cranberry juice in addition tolarge amounts of water is recommended. Avoid caffeine, [...] about any blood in your urine, even ifit is painless or the blood stops without treatment. Take nblf-vhd-fzdysgx and prescription medicines only as told by your health care provider. Drink enough fluid to keep your urine pale yellow. This information is not intended to replace advice given to you by your health care provider. Make sure you discuss any questions you have with your health care provider. Document Revised: 05/19/2021 Document Reviewed: 05/19/2021 [employer] Patient Education 2023 [employer]. Follow Up Care 10/15/2024 09:45:52 With:[facility] Address: When: Unknown Comments:For procedure as scheduled. With:[facility] Address: When: Unknown Comments:For procedure as scheduled. [facility] [place] 01-23-2025 NotePatient Education Gastroenterology Constipation, Adult Constipation is when a person has fewer than three bowel movements in a week, has difficulty havinga bowel movement, or has stools (feces) that are dry, hard, or larger than normal. Constipation maybe caused by an underlying condition. It may [...] as fried or sweet foods. These include citizen of [place] fries, hamburgers, cookies, candies, and soda. ??? Drink enough fluid to keep your urine pale yellow. General instructions ??? Exercise regularly or as told by your health care provider. Try to do 150 minutes of moderate exercise each week. ??? Use the bathroom when you have the urge to go. Do not hold it in. ??? Take azih-gtf-igiaqcn and prescription medicines only as told by [...] keep your urine pale yellow. ??? Take oswg-zsh-ispkxzg and prescription medicines only as told by your health care provider. This includes any fiber supplements. This information is not intended to replace advice given to you by your health care provider. Make sure you discuss any questions you have with your health care provider. Document Revised: 08/02/2023 Document Reviewed: 08/02/2023 [employer] Patient Education ? 2023 [employer] Urology Hematuria, Adult Hematuria is blood in the urine. Blood may be visible in the urine, or it may be identified with a test. This condition can be caused by infections of the bladder, urethra, kidney, or prostate. Otherpossible causes include: ??? Kidney stones. ??? Cancer [...] blood in your urine, even if it ispainless or the blood stops without treatment. Blood in the urine, when it happens and then stops and then happens again, can be a symptom of a very serious condition, including cancer. There is no pain in the initial stages of many urinary cancers. Follow these instructions at home: Medicines ??? Take ackt-iyh-jxndnqr and prescription medicines only as told by your health care provider. ??? If you were prescribed an antibiotic medicine, take it as told by your health care provider. Donot stop taking the antibiotic even if you [...] kidney stone, follow your health care provider's instructionsabout straining your urine to catch the stone. ??? Empty your bladder often. Avoid holding urine for long periods of time. ??? If you are female: ? After a bowel movement, wipe from front to back and u (more content not included)...[facility] Future Appointments Appointment Date:09/26/2025 09:45:00 AM Scheduled Provider:Nikolai ACOSTA MD Location:[facility] Appointment Type:URO Office Visit Diagnostic Tests Pending * BUN 03/14/25 * Creatinine 03/14/25 * Potassium Level 03/14/25 [facility] evaluation noteNo assessment information available [facility] Work Phone: Evaluation note* Diagnosis Screening for nephropathy- Primary 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 [facility] Diagnosis Neoplasm of uncertain behavior of left kidney- Primary 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 [facility] Diagnosis Renal mass, left- Primary Unspecified disorder of kidney and ureter 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 [facility] Diagnosis Renal mass, left- Primary Unspecified disorder of kidney and ureter Abnormal blood chemistry Other abnormal blood chemistry 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 [facility]* Diagnosis Pre-op evaluation- Primary Preoperative examination, unspecified Depression, unspecified depression type Type 2 diabetes mellitus without complication, 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) BPH with obstruction/lower urinary [...] any suicidal ideation [facility] Pre-op evaluation- Primary Preoperative examination, unspecified Depression, unspecified depression type Type 2 diabetes mellitus without complication, 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) BPH with obstruction/lower urinary [...] kidney and ureter [facility] Diagnosis Pre-op evaluation- Primary Preoperative examination, unspecified Depression, unspecified depression type Type 2 diabetes mellitus without complication, 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) BPH with obstruction/lower urinary [...] kidney and ureter [facility] Diagnosis Pre-op evaluation- Primary Preoperative examination, unspecified Depression, unspecified depression type Type 2 diabetes mellitus without complication, 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) BPH with obstruction/lower urinary [...] kidney failure, unspecified [facility] Diagnosis Pre-op evaluation- Primary Preoperative examination, unspecified Depression, unspecified depression type Type 2 diabetes mellitus without complication, 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) BPH with obstruction/lower urinary [...] Hyperkalemia- Primary Hyperpotassemia [facility] Diagnosis Pre-op evaluation- Primary Preoperative examination, unspecified Depression, unspecified depression type Type 2 diabetes mellitus without complication, 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) BPH with obstruction/lower urinary [...] kidney (HCC)- Primary [facility] Diagnosis Pre-op evaluation- Primary Preoperative examination, unspecified Depression, unspecified depression type Type 2 diabetes mellitus without complication, 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) BPH with obstruction/lower urinary [...] left kidney (HCC) documented in this encounter [facility] note* Diagnosis Pre-op evaluation- Primary Preoperative examination, unspecified Depression, unspecified depression type Type 2 diabetes mellitus without complication, unspecified whether correction insulin use (HCC) BPH with obstruction/lower urinary [...] left kidney (HCC) documented in this encounter [facility] note* Diagnosis Pre-op evaluation- Primary Preoperative examination, unspecified Depression, unspecified depression type Type 2 diabetes mellitus without complication, unspecified whether correction insulin use (HCC) BPH with obstruction/lower urinary [...] (HCC)- Primary documented in this encounter [facility] note* Diagnosis Pre-op evaluation- Primary Preoperative examination, unspecified Depression, unspecified depression type Type 2 diabetes mellitus without complication, unspecified whether correction insulin use (HCC) BPH with obstruction/lower urinary [...] (HCC)- Primary documented in this encounter [facility] note* Diagnosis Pre-op evaluation- Primary Preoperative examination, unspecified Depression, unspecified depression type Type 2 diabetes mellitus without complication, unspecified whether correction insulin use (HCC) BPH with obstruction/lower urinary [...] uninodular goiter documented in this encounter [facility] note* Diagnosis Pre-op evaluation- Primary Preoperative examination, unspecified Depression, unspecified depression type Type 2 diabetes mellitus without complication, 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) BPH with obstruction/lower urinary [...] (HCC)- Primary documented in this encounter [facility] note* Diagnosis Pre-op evaluation- Primary Preoperative examination, unspecified Depression, unspecified depression type Type 2 diabetes mellitus without complication, 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) BPH with obstruction/lower urinary [...] (HCC)- Primary documented in this encounter [facility] note* Diagnosis Pre-op evaluation- Primary Preoperative examination, unspecified Depression, unspecified depression type Type 2 diabetes mellitus without complication, 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) BPH with obstruction/lower urinary [...] left kidney (HCC) [facility] Diagnosis Pre-op evaluation- Primary Preoperative examination, unspecified Depression, unspecified depression type Type 2 diabetes mellitus without complication, 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) BPH with obstruction/lower urinary [...] left kidney (HCC) documented in this encounter [facility] note* Diagnosis Onset Date Resolution Status Admit Date Anemia of renal disease acute J joey 2024 3:43pm Chronic kidney disease, stag e IV (severe) acute April 22, 2025 3:43pm Diabetic nephropathy acute April 22, 2025 3:43pm History of nephrectomy, left acute April 22, 2025 3:43pm Hypertensive nephropathy acute April 22, 2025 3:43pm Hyperuricemia acute April 22, 2025 3:43pm [facility] Work Phone: Evaluation note* Diagnosis Pre-op evaluation- Primary Preoperative examination, unspecified Depression, unspecified depression type Type 2 diabetes mellitus without complication, 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) BPH with obstruction/lower urinary [...] Nontoxic uninodular goiter [facility] Diagnosis Pre-op evaluation- Primary Preoperative examination, unspecified Depression, unspecified depression type Type 2 diabetes mellitus without complication, unspecified whether correction insulin use (HCC) BPH with obstruction/lower urinary [...] 2 diabetes mellitus without complication, unspecified whether correction insulin use (HCC)- Primary 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 [facility]* Diagnosis Pre-op evaluation- Primary Preoperative examination, unspecified Depression, unspecified depression type Type 2 diabetes mellitus without complication, unspecified whether correction insulin use (HCC) BPH with obstruction/lower urinary [...] kidney (HCC)- Primary [facility]* Diagnosis Pre-op evaluation- Primary Preoperative examination, unspecified Depression, unspecified depression type Type 2 diabetes mellitus without complication, unspecified whether correction insulin use (HCC) BPH with obstruction/lower urinary [...] kidney (HCC)- Primary [facility] Diagnosis Pre-op evaluation- Primary Preoperative examination, unspecified Depression, unspecified depression type Type 2 diabetes mellitus without complication, unspecified whether correction insulin use (HCC) BPH with obstruction/lower urinary [...] cell carcinoma of left kidney (HCC)- Primary 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 documented [facility] Diagnosis Pre-op evaluation- Primary Preoperative examination, unspecified Depression, unspecified depression type Type 2 diabetes mellitus without complication, unspecified whether correction insulin use (HCC) BPH with obstruction/lower urinary [...] left kidney (HCC) documented [facility] Diagnosis Pre-op evaluation- Primary Preoperative examination, unspecified Depression, unspecified depression type Type 2 diabetes mellitus without complication, 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) BPH with obstruction/lower urinary [...] Shortness of breath [facility] Diagnosis Pre-op evaluation- Primary Preoperative examination, unspecified Depression, unspecified depression type Type 2 diabetes mellitus without complication, unspecified whether correction insulin use (HCC) BPH with obstruction/lower urinary [...] kidney (HCC)- Primary [facility] Diagnosis Pre-op evaluation- Primary Preoperative examination, unspecified Depression, unspecified depression type Type 2 diabetes mellitus without complication, unspecified whether correction insulin use (HCC) BPH with obstruction/lower urinary [...] (HCC)- Primary documented in this encounter [facility] note* Diagnosis Pre-op evaluation- Primary Preoperative examination, unspecified Depression, unspecified depression type Type 2 diabetes mellitus without complication, 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) BPH with obstruction/lower urinary [...] intra-abdominal lymph nodes documented in this encounter [facility] course Narrative No data available for this section [facility] Hospital Discharge instructions No data available for this section [facility] Progress note No data available for this section [facility] reason for referral (narrative)No reason for referral [facility] Work Phone: Reason for visit Narrative* [place] Prior Authorization (Routine) - Authorized Specialty Diagnoses / Procedures Referred By Contac t Referred To Contact Diagnoses Intestinal malabsorption, unspecified type (HCC) Iron deficiency anemia, unspecified iron deficiency anemia type Procedures IRON SUCROSE INJECTION PER 1 MG Rob Romero, DINING CAR SERVER.SUSTAINABILITY ENGINEER [address] [place] [address] Phone: tel: fax: Rob Romero, DINING CAR SERVER.SUSTAINABILITY ENGINEER [address] [place] [address] Phone: tel: fax: Referral ID Status Reason Start Date Expiration Date V isits Requested Visits Authorized [id number] Authorized 02/10/2025 10/01/2025 99 99 [facility] for visit Narrative* Consult, Test, Treat (Routine) - Closed Specialty Diagnoses / Procedures Referred By Contac t Referred To Contact Hematology / HEMATOLOGY/ONCOLOGY Diagnoses Malignant neoplasm of left kidney, except renal pelvis (HCC) EKG Procedures OFFICE/OUTPATIENT ESTABLISHED MOD MDM 30 MIN POINT OF CARE TEST Ernesto Phoenix MD 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) Renal cell carcinoma of left kidney (HCC) Procedures INJ PEMBROLIZUMAB Jeannine Young MD [address] [place] [address] Phone: tel: fax: Hematology/Oncology [address] [place] [address] Phone: tel: Referral ID Status Reason Start Date Expiration Date V isits Requested Visits Authorized [id number] Authorized 04/15/2025 10/16/2025 99 99 [facility] for visit Narrative* Consult, Test, Treat (Routine) - Authorized Specialty Diagnoses / Procedures Referred By Contac t Referred To Contact Hematology/Oncology / HEMATOLOGY/ONCOLOGY Diagnoses follow up Procedures EST PATIENT [facility]KE [address] [place] [address] [place] [address] Phone: tel: Ernesto Phoenix MD [address] [place] [address] [place] [address] Phone: tel: fax: Referral ID Status Reason Start Date Expiration Date V isits Requested Visits Authorized [id number] Authorized 06/09/2025 10/01/2025 99 99 [facility]* Diagnostic Procedure Only (Routine) - Closed Specialty Diagnoses / Procedures Referred By Contac t Referred To Contact MOLECULAR & FUNCTIONAL IMAGING Diagnoses Renal cell carcinoma of left kidney (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) Procedures NM PET/CT SKULL-THIGH SUBSEQUENT PET IMAGING CT ATTENUATION SKULL BASE MID-THIGH Jeannine Young MD [address] [place] [address] Phone: tel: fax: Molecular Imaging [address] [place] [address] Phone: tel: Referral ID Status Reason Start Date Expiration Date V isits Requested Visits Authorized [id number] Closed Auto-Generate d Referral 04/09/2025 05/09/2026 1 1 [facility] Summary Purpose Family History No Family History Records Found Relationship Condition Age at Onset Recorded Date/T sofie mother Dementia Unknown father Cerebrovascular accident (CVA) Unknown Advance Directives No Advanced Directives Records Found Advance Directive Response Recorded Date/ Time Advance [...] 3:43pm Hyperuricemia April 22, 2025 3:43 pm Chief Complaint Admit Date CKD 3 April [...] and content) DATE CREATED AUTHOR 09/03/2022 [facility] DATE CREATED AUTHOR AUTHOR'S ORGANIZ ATION 10/25/2024 [facility] DATE CREATED AUTHOR AUTHOR'S ORGANIZ ATION 03/14/2025 [facility] DATE CREATED AUTHOR AUTHOR'S ORGANIZ ATION 03/17/2025 [facility] DATE CREATED AUTHOR AUTHOR'S ORGANIZ ATION 04/05/2025 [facility] DATE CREATED AUTHOR AUTHOR'S ORGANIZ ATION 06/16/2025 [facility] DATE CREATED AUTHOR AUTHOR'S ORGANIZ ATION 06/18/2025 [facility] DATE CREATED AUTHOR AUTHOR'S ORGANIZ ATION 06/20/2025 [facility] Care Teams (unrecognized sec tion and content) Team Status: Inactive Member Role Status Dates ALEA Cook Attending Provider Active Start: October 08, 2024 End: October 08, 2024 Team Status: Inactive Member Role Status Dates Nikolai Acosta MD Attending Provider Active St art: November 11, 2024 End: November 11, 2024 Heavy Truck Technician Relationship Specialty Start Date End Date Jessica Davalos CNP [address] [place] [address] PCP - General Internal Medicine 02/07/25 Heavy Truck Technician Relationship Specialty Start Date End Date Jessica Davalos CNP [address] [place] [address] PCP - General Internal Medicine 02/07/25 Heavy Truck Technician Relationship Specialty Start Date End Date Jessica Davalos CNP [address] [place] [address] PCP - General Internal Medicine 02/07/25 Heavy Truck Technician Relationship Specialty Start Date End Date Jessica Davalos CNP [address] [place] [place] [id number] PCP - General Internal Medicine 02/07/25 Heavy Truck Technician Relationship Specialty Start Date End Date Jessica Davalos CNP [address] [place] [address] PCP - General Internal Medicine 02/07/25 Heavy Truck Technician Relationship Specialty Start Date End Date Jessica Davalos CNP [address] [place] [place] [id number] PCP - General Internal Medicine 02/07/25 Heavy Truck Technician Relationship Specialty Start Date End Date Jessica Davalos CNP [address] [place] [place] [id number] PCP - General Internal Medicine 02/07/25 Heavy Truck Technician Relationship Specialty Start Date End Date Jessica Davalos CNP [address] [place] [place] [id number] PCP - General Internal Medicine 02/07/25 Heavy Truck Technician Relationship Specialty Start Date End Date Jessica Davalos CNP [address] [place] [address] PCP - General Internal Medicine 02/07/25 Heavy Truck Technician Relationship Specialty Start Date End Date Jessica Davalos CNP [address] [place] [id number] PCP - General Internal Medicine 02/07/25 Heavy Truck Technician Relationship Specialty Start Date End Date Jessica Davalos CNP [address] [place] [address] PCP - General Internal Medicine 02/07/25 Heavy Truck Technician Relationship Specialty Start Date End Date Jessica Davalos CNP [address] [place] [address] PCP - General Internal Medicine 02/07/25 Heavy Truck Technician Relationship Specialty Start Date End Date Jessica Davalos CNP [address] [place] [address] PCP - General Internal Medicine 02/07/25 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 RN [address] [address] Specialty Chain Testing Machine Operator Hematology/Oncology 03/28/25 Ernesto Phoenix MD [address] [address] Physician Hematology/Oncology 03/28/25 Heavy Truck Technician Relationship Specialty Start Date End Date Jessica Davalos CNP [address] [place] [address] PCP - General Internal Medicine 02/07/25 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 RN [address] [facility] [address] Specialty Chain Testing Machine Operator Hematology/Oncology 03/28/25 Ernesto Phoenix MD [address] [facility] [address] Physician Hematology/Oncology 03/28/25 Heavy Truck Technician Relationship Specialty Start Date End Date Jessica Davalos CNP [address] [place] [address] PCP - General Internal Medicine 02/07/25 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 RN [address] [facility] [address] Specialty Chain Testing Machine Operator Hematology/Oncology 03/28/25 Ernesto Phoenix MD [address] [place] [address] Physician Hematology/Oncology 03/28/25 Heavy Truck Technician Relationship Specialty Start Date End Date Jessica Davalos CNP [address] [place] [address] PCP - General Internal Medicine 02/07/25 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 RN [address] [facility] [address] Specialty Chain Testing Machine Operator Hematology/Oncology 03/28/25 Ernesto Phoenix MD [address] [facility] [place] [address] Physician Hematology/Oncology 03/28/25 Heavy Truck Technician Relationship Specialty Start Date End Date Jessica Davalos CNP [address] [place] [address] PCP - General Internal Medicine 02/07/25 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 RN [address] [facility] [address] Specialty Chain Testing Machine Operator Hematology/Oncology 03/28/25 Ernesto Phoenix MD [address] [facility] [address] Physician Hematology/Oncology 03/28/25 Heavy Truck Technician Relationship Specialty Start Date End Date Jessica Davalos CNP [address] [place] [address] PCP - General Internal Medicine 02/07/25 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 RN [address] [facility] [address] Specialty Chain Testing Machine Operator Hematology/Oncology 03/28/25 Ernesto Phoenix MD [address] [facility] [place] [address] Physician Hematology/Oncology 03/28/25 Heavy Truck Technician Relationship Specialty Start Date End Date Jessica Davalos CNP [address] [place] [address] PCP - General Internal Medicine 02/07/25 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 RN [address] [facility] [address] Specialty Chain Testing Machine Operator Hematology/Oncology 03/28/25 Ernesto Phoenix MD [address] [facility] [address] Physician Hematology/Oncology 03/28/25 Heavy Truck Technician Relationship Specialty Start Date End Date Jessica Davalos CNP [address] [place] [address] PCP - General Internal Medicine 02/07/25 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 RN [address] [facility] [address] Specialty Chain Testing Machine Operator Hematology/Oncology 03/28/25 Ernesto Phoenix MD [address] [place] [address] Physician Hematology/Oncology 03/28/25 Heavy Truck Technician Relationship Specialty Start Date End Date Jessica Davalos CNP [address] [place] [address] PCP - General Internal Medicine 02/07/25 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 RN [address] [facility] [place] [address] Specialty Chain Testing Machine Operator Hematology/Oncology 03/28/25 Ernesto Phoenix MD [address] [facility] [place] [address] Physician Hematology/Oncology 03/28/25 [place] [address] [place] [id number] Physician Hematology 04/09/25 Madelin Mc, RN Specialty Chain Testing Machine Operator Hematology/Oncology 04/09/25 Heavy Truck Technician Relationship Specialty Start Date End Date Jessica Davalos, DEEP [address] [place] [id number] PCP - General Internal Medicine 02/07/25 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 RN [address] [facility] [address] Specialty Chain Testing Machine Operator Hematology/Oncology 03/28/25 Ernesto Phoenix MD [address] [facility] [place] [address] Physician Hematology/Oncology 03/28/25 [place] [address] [place] [id number] Physician Hematology 04/09/25 Madelin Mc, RN Specialty Chain Testing Machine Operator Hematology/Oncology 04/09/25 Heavy Truck Technician Relationship Specialty Start Date End Date Jessica Davalos CNP [address] [place] [address] PCP - General Internal Medicine 02/07/25 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 RN [address] [facility] [place] [address] Specialty Chain Testing Machine Operator Hematology/Oncology 03/28/25 Ernesto Phoenix MD [address] [facility] [place] [address] Physician Hematology/Oncology 03/28/25 [place] [address] [place] [address] Physician Hematology 04/09/25 Madelin Mc, RN Specialty Chain Testing Machine Operator Hematology/Oncology 04/09/25 Heavy Truck Technician Relationship Specialty Start Date End Date Jessica Davalos, SUSTAINABILITY ENGINEER [address] [place] [address] PCP - General Internal Medicine 02/07/25 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 RN [address] [facility] [place] [address] Specialty Chain Testing Machine Operator Hematology/Oncology 03/28/25 Ernesto Phoenix MD [address] [place] [address] Physician Hematology/Oncology 03/28/25 [place] [address] [place] [address] Physician Hematology 04/09/25 Madelin Mc RN Specialty Chain Testing Machine Operator Hematology/Oncology 04/09/25 Heavy Truck Technician Relationship Specialty Start Date End Date Jessica Davalos SUSTAINABILITY ENGINEER [address] [place] [address] PCP - General Internal Medicine 02/07/25 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 RN [address] [facility] [address] Specialty Chain Testing Machine Operator Hematology/Oncology 03/28/25 Ernesto Phoenix MD [address] [facility] [address] Physician Hematology/Oncology 03/28/25 [place] [address] [place] [address] Physician Hematology 04/09/25 Madelin Mc, RN Specialty Chain Testing Machine Operator Hematology/Oncology 04/09/25 Myrtle Holland, PHYSICS TECHNICAL OFFICER Retail Coordinator 04/11/25 Heavy Truck Technician Relationship Specialty Start Date End Date Jessica Davalso, SUSTAINABILITY ENGINEER [address] [place], [place] [id number] PCP - General Internal Medicine 02/07/25 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 RN [address] [facility] [place] [address] Specialty Chain Testing Machine Operator Hematology/Oncology 03/28/25 Ernesto Phoenix MD [address] [facility] [place] [address] Physician Hematology/Oncology 03/28/25 [place] [address] [place] [address] Physician Hematology 04/09/25 Madelin Mc RN Specialty Chain Testing Machine Operator Hematology/Oncology 04/09/25 Myrtle Holland, PHYSICS TECHNICAL OFFICER Retail Coordinator 04/11/25 Heavy Truck Technician Relationship Specialty Start Date End Date Jessica Davalos, DEEP [address] [place] [address] PCP - General Internal Medicine 02/07/25 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 RN [address] [facility] [place] [address] Specialty Chain Testing Machine Operator Hematology/Oncology 03/28/25 Ernesto Phoenix MD [address] [facility] [place] [address] Physician Hematology/Oncology 03/28/25 [place] [address] [place] [id number] Physician Hematology 04/09/25 Madelin Mc, RN Specialty Chain Testing Machine Operator Hematology/Oncology 04/09/25 Myrtle Holland, [place] Retail Coordinator 04/11/25 Yesica Calderon, DARYL [facility] [place] [address] Nutrition 04/17/25 Heavy Truck Technician Relationship Specialty Start Date End Date Jessica Davalos, SUSTAINABILITY ENGINEER [address] [place] [address] PCP - General Internal Medicine 02/07/25 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 RN [address] [facility] [address] Specialty Chain Testing Machine Operator Hematology/Oncology 03/28/25 Ernesto Phoenix MD [address] [place] [address] [place] [address] Physician Hematology/Oncology 03/28/25 [place] [address] [place] [address] Physician Hematology 04/09/25 Madelin Mc RN Specialty Chain Testing Machine Operator Hematology/Oncology 04/09/25 Myrtle Holland, [facility] Retail Coordinator 04/11/25 Yesica Calderon, DARYL [address] [place] [address] Nutrition 04/17/25 Heavy Truck Technician Relationship Specialty Start Date End Date Jessica Davalos CNP [address] [place] [address] PCP - General Internal Medicine 02/07/25 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 RN [address] [facility] [address] [address] Specialty Chain Testing Machine Operator Hematology/Oncology 03/28/25 Ernesto Phoenix MD [address] [place] [address] [place] [address] Physician Hematology/Oncology 03/28/25 [place] [address] [place] [id number] Physician Hematology 04/09/25 Madelin Mc, RN Specialty Chain Testing Machine Operator Hematology/Oncology 04/09/25 Myrtle Holland, PHYSICS TECHNICAL OFFICER Retail Coordinator 04/11/[address] [place] [address] Nutrition 04/17/25 Heavy Truck Technician Relationship Specialty Start Date End Date Jessica Davalos, SUSTAINABILITY ENGINEER [address] [place] [address] PCP - General Internal Medicine 02/07/25 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 RN [address] [facility] [address] Specialty Chain Testing Machine Operator Hematology/Oncology 03/28/25 Ernesto Phoenix MD [address] [facility] [place] [address] Physician Hematology/Oncology 03/28/25 [place] [address] [place] [phone] Physician Hematology 04/09/25 Madelin Mc, JUANA Specialty Chain Testing Machine Operator Hematology/Oncology 04/09/25 Myrtle Holland, [place] Retail Coordinator 04/11/25 Yesica Calderon, DARYL [address] [place] [address] Nutrition 04/17/25 Heavy Truck Technician Relationship Specialty Start Date End Date Jessica Davalos SUSTAINABILITY ENGINEER [address] [place] [address] PCP - General Internal Medicine 02/07/25 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 RN [address] [place] [address] Specialty Chain Testing Machine Operator Hematology/Oncology 03/28/25 Ernesto Phoenix MD [address] [place] [address] [place] [address] Physician Hematology/Oncology 03/28/25 [place] [address] [facility] [place] [address] Physician Hematology 04/09/25 Madelin Mc, JUANA Specialty Chain Testing Machine Operator Hematology/Oncology 04/09/25 Myrtle Holladn, PHYSICS TECHNICAL OFFICER Retail Coordinator 04/11/[address] [place], [place] [phone] Nutrition 04/17/25 Heavy Truck Technician Relationship Specialty Start Date End Date Jessica Davalos, SUSTAINABILITY ENGINEER [address] [place] [address] PCP - General Internal Medicine 02/07/25 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, JUANA [address] [place] [address] Specialty Chain Testing Machine Operator Hematology/Oncology 03/28/25 Ernesto Phoenix MD [address] [facility] [place] [address] Physician Hematology/Oncology 03/28/25 [place] [address] [place] [address] Physician Hematology 04/09/25 Madelin Mc RN Specialty Chain Testing Machine Operator Hematology/Oncology 04/09/25 Myrtle Holland, PHYSICS TECHNICAL OFFICER Retail Coordinator 04/11/[address] [place] [address] Nutrition 04/17/25 Team Status: Active Member Role Status Dates ALEA Cook Primary Care Provider Active Team Status: Inactive Member Role Status Dates ALEA Cook Primary Care Provider Active Start: April 22, 2025 End: April 22, 2025 Felton Urbina MD Attending Provider Active Star t: April 22, 2025 End: April 22, 2025 Heavy Truck Technician Relationship Specialty Start Date End Date Jessica Davalos CNP [address] [place] [address] PCP - General Internal Medicine 02/07/25 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 RN [address] [facility] [address] Specialty Chain Testing Machine Operator Hematology/Oncology 03/28/25 Ernesto Phoenix MD [address] [place] [address] [place] [address] Physician Hematology/Oncology 03/28/25 [place] [address] [place] [address] Physician Hematology 04/09/25 Madelin Mc RN Specialty Chain Testing Machine Operator Hematology/Oncology 04/09/25 Myrtle Holland LSW Retail Coordinator 04/11/[address] [place] [address] Nutrition 04/17/25 Heavy Truck Technician Relationship Specialty Start Date End Date Jessica Davalos CNP [address] [place] [address] PCP - General Internal Medicine 02/07/25 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 RN [address] [facility] [address] Specialty Chain Testing Machine Operator Hematology/Oncology 03/28/25 Ernesto Phoenix MD [address] [facility] [place] [address] Physician Hematology/Oncology 03/28/25 [place] [address] [place] [phone] Physician Hematology 04/09/25 Madelin Mc, RN Specialty Chain Testing Machine Operator Hematology/Oncology 04/09/25 Myrtle Holland, PHYSICS TECHNICAL OFFICER Retail Coordinator 04/11/25 Yesica Calderon, DARYL [facility] [place] [address] Nutrition 04/17/25 Heavy Truck Technician Relationship Specialty Start Date End Date Jessica Davalos CNP [address] [place] [address] PCP - General Internal Medicine 02/07/25 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 RN [address] [facility] [address] Specialty Chain Testing Machine Operator Hematology/Oncology 03/28/25 Ernesto Phoenix MD [address] [facility] [place] [address] Physician Hematology/Oncology 03/28/25 [place] [address] [place] [phone] Physician Hematology 04/09/25 Madelin Mc, JUANA Specialty Chain Testing Machine Operator Hematology/Oncology 04/09/25 Myrtle Holland, [place] Retail Coordinator 04/11/25 Yesica Calderon, DARYL [address] [place] [address] Nutrition 04/17/25 Heavy Truck Technician Relationship Specialty Start Date End Date Jessica Davalos CNP [address] [place] [address] PCP - General Internal Medicine 02/07/25 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 RN [address] [facility] [address] Specialty Chain Testing Machine Operator Hematology/Oncology 03/28/25 Ernesto Phoenix MD [address] [facility] [address] [address] Physician Hematology/Oncology 03/28/25 [place] [address] [place] [address] Physician Hematology 04/09/25 Madelin Mc, RN Specialty Chain Testing Machine Operator Hematology/Oncology 04/09/25 Myrtle Holland, [place] Retail Coordinator 04/11/[address] [place], [place] [phone] Nutrition 04/17/25 Heavy Truck Technician Relationship Specialty Start Date End Date Jessica Davalos, SUSTAINABILITY ENGINEER [address] [place] [address] PCP - General Internal Medicine 02/07/25 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 RN [address] [facility] [place] [address] Specialty Chain Testing Machine Operator Hematology/Oncology 03/28/25 Ernesto Phoenix MD [address] [facility] [place] [address] Physician Hematology/Oncology 03/28/25 [place] [address] [place] [address] Physician Hematology 04/09/25 Madelin Mc RN Specialty Chain Testing Machine Operator Hematology/Oncology 04/09/25 Myrtle Holland, [place] Retail Coordinator 04/11/[address] [place] [address] Nutrition 04/17/25 Heavy Truck Technician Relationship Specialty Start Date End Date Jessica Davalos CNP [address] [place] [address] PCP - General Internal Medicine 02/07/25 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, RN [address] [facility] [address] Specialty Chain Testing Machine Operator Hematology/Oncology 03/28/25 Ernesto Phoenix MD [address] [facility] [place] [address] Physician Hematology/Oncology 03/28/25 [place] [address] [place] [phone] Physician Hematology 04/09/25 Madelin Mc RN Specialty Chain Testing Machine Operator Hematology/Oncology 04/09/25 Myrtle Holland LSW Retail Coordinator 04/11/[address] [facility] [place] [address] Nutrition 04/17/25 Heavy Truck Technician Relationship Specialty Start Date End Date Jessica Davalos CNP [facility] [place] [address] PCP - General Internal Medicine 02/07/25 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, JUANA [address] [facility] [address] Specialty Chain Testing Machine Operator Hematology/Oncology 03/28/25 Ernesto Phoenix MD [address] [place] [address] Physician Hematology/Oncology 03/28/25 [place] [address] [place] [address] Physician Hematology 04/09/25 Madelin Mc, RN Specialty Chain Testing Machine Operator Hematology/Oncology 04/09/25 Myrtle Holland, [place] Retail Coordinator 04/11/[address] [place] [address] Nutrition 04/17/25 Heavy Truck Technician Relationship Specialty Start Date End Date Jessica Davalos CNP [address] [place] [address] PCP - General Internal Medicine 02/07/25 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 RN [address] [facility] [place] [address] Specialty Chain Testing Machine Operator Hematology/Oncology 03/28/25 Ernesto Phoenix MD [address] [facility] [facility] [address] [place] [id number] Physician Hematology/Oncology 03/28/25 [place] [address] [place] [phone] Physician Hematology 04/09/25 Madelin Mc, RN Specialty Chain Testing Machine Operator Hematology/Oncology 04/09/25 Myrtle Holland, [facility] Retail Coordinator 04/11/[address] [place] [phone] Nutrition 04/17/25 Team Status: Active Member Role Status Dates Felton Urbina MD Attending Provider Active Star t: May 27, 2025 ALEA Cook Primary Care Provider Active Start: May 27, 2025 Team Status: Inactive Member Role Status Dates ALEA Cook Primary Care Provider Active Start: June 09, 2025 End: June 09, 2025 Ernesto Phoenix MD Attending Provider Active Start: June 09, 2025 End: June 09, 2025 Heavy Truck Technician Relationship Specialty Start Date End Date Jessica Davalos CNP [address] [place] [address] PCP - General Internal Medicine 02/07/25 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, RN [address] [facility] [address] Specialty Chain Testing Machine Operator Hematology/Oncology 03/28/25 Ernesto Phoenxi MD [address] [place] [address] [place] [address] Physician Hematology/Oncology 03/28/25 [place] [address] [place] [address] Physician Hematology 04/09/25 Madelin Mc RN Specialty Chain Testing Machine Operator Hematology/Oncology 04/09/25 Myrtle Holland, PHYSICS TECHNICAL OFFICER Retail Coordinator 04/11/[address] [place], [place] [phone] Nutrition 04/17/25 Heavy Truck Technician Relationship Specialty Start Date End Date Jessica Davalos CNP [address] [place] [address] PCP - General Internal Medicine 02/07/25 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 RN [address] [facility] [address] Specialty Chain Testing Machine Operator Hematology/Oncology 03/28/25 Ernesto Phoenix MD [address] [facility] [place] [address] Physician Hematology/Oncology 03/28/25 [place] [address] [place] [address] Physician Hematology 04/09/25 Madelin Mc RN Specialty Chain Testing Machine Operator Hematology/Oncology 04/09/25 Myrtle Holland LSW Retail Coordinator 04/11/[address] [place] [address] Nutrition 04/17/25 Heavy Truck Technician Relationship Specialty Start Date End Date Jessica DavalosDEEP [address] [place] [address] PCP - General Internal Medicine 02/07/25 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 RN [address] [place] [address] Specialty Chain Testing Machine Operator Hematology/Oncology 03/28/25 Ernesto Phoenix MD [address] [place] [address] Physician Hematology/Oncology 03/28/25 [place] [address] [place] [address] Physician Hematology 04/09/25 Madelin Mc RN Specialty Chain Testing Machine Operator Hematology/Oncology 04/09/25 Myrtle Holland LSW Retail Coordinator 04/11/[address] [place] [address] Nutrition 04/17/25 Goals (unrecognized section and content) Goals may be documented in a n alternate section No data available for this section No data available for this sectionGoals may be documented in an alternate section No data available for this sectionGoals may be documented in an alternate sectionGoals may be documented in an alternate section Source Comments (unrecognize d section and content) In the event this informatio n is protected by the Federal Confidentiality of Alcohol and Drug Abuse Patient Records regulations: The Federal rules restrict any use of the information to criminally investigate or prosecute any alcohol or drug abuse patient.[facility] Center[facility] the event this information is protected by the Federal Confidentiality of Alcohol and Drug Abuse Patient Records regulations: The Federal rules restrict any use of the information to criminally investigate or prosecute any alcohol or drug abuse patient.[facility] Center[facility] the event this information is protected by the Federal Confidentiality of Alcohol and Drug Abuse Patient Records regulations: The Federal rules restrict any use of the information to criminally investigate or prosecute any alcohol or drug abuse patient.[facility] Center[facility] the event this information is protected by the Federal Confidentiality of Alcohol and Drug Abuse Patient Records regulations: The Federal rules restrict any use of the information to criminally investigate or prosecute any alcohol or drug abuse patient.[facility] CenterIn the event this information is protected by the Federal Confidentiality of Alcohol and Drug Abuse Patient Records regulations: The Federal rules restrict any use of the information to criminally investigate or prosecute any alcohol or drug abuse patient.[facility] CenterIn the event this information is protected by the Federal Confidentiality of Alcohol and Drug Abuse Patient Records regulations: The Federal rules restrict any use of the information to criminally investigate or prosecute any alcohol or drug abuse patient.[facility] Center[facility] the event this information is protected by the Federal Confidentiality of Alcohol and Drug Abuse Patient Records regulations: The Federal rules restrict any use of the information to criminally investigate or prosecute any alcohol or drug abuse patient.[facility] CenterIn the event this information is protected by the Federal Confidentiality of Alcohol and Drug Abuse Patient Records regulations: The Federal rules restrict any use of the information to criminally investigate or prosecute any alcohol or drug abuse patient.[facility] Center[facility] the event this information is protected by the Federal Confidentiality of Alcohol and Drug Abuse Patient Records regulations: The Federal rules restrict any use of the information to criminally investigate or prosecute any alcohol or drug abuse patient.[facility] CenterIn the event this information is protected by the Federal Confidentiality of Alcohol and Drug Abuse Patient Records regulations: The Federal rules restrict any use of the information to criminally investigate or prosecute any alcohol or drug abuse patient.[facility] CenterIn the event this information is protected by the Federal Confidentiality of Alcohol and Drug Abuse Patient Records regulations: The Federal rules restrict any use of the information to criminally investigate or prosecute any alcohol or drug abuse patient.[facility] CenterIn the event this information is protected by the Federal Confidentiality of Alcohol and Drug Abuse Patient Records regulations: The Federal rules restrict any use of the information to criminally investigate or prosecute any alcohol or drug abuse patient.[facility] CenterIn the event this information is protected by the Federal Confidentiality of Alcohol and Drug Abuse Patient Records regulations: The Federal rules restrict any use of the information to criminally investigate or prosecute any alcohol or drug abuse patient.[facility] CenterIn the event this information is protected by the Federal Confidentiality of Alcohol and Drug Abuse Patient Records regulations: The Federal rules restrict any use of the information to criminally investigate or prosecute any alcohol or drug abuse patient.[facility] CenterIn the event this information is protected by the Federal Confidentiality of Alcohol and Drug Abuse Patient Records regulations: The Federal rules restrict any use of the information to criminally investigate or prosecute any alcohol or drug abuse patient.[facility] CenterIn the event this information is protected by the Federal Confidentiality of Alcohol and Drug Abuse Patient Records regulations: The Federal rules restrict any use of the information to criminally investigate or prosecute any alcohol or drug abuse patient.[facility] CenterIn the event this information is protected by the Federal Confidentiality of Alcohol and Drug Abuse Patient Records regulations: The Federal rules restrict any use of the information to criminally investigate or prosecute any alcohol or drug abuse patient.[facility] CenterIn the event this information is protected by the Federal Confidentiality of Alcohol and Drug Abuse Patient Records regulations: The Federal rules restrict any use of the information to criminally investigate or prosecute any alcohol or drug abuse patient.[facility] CenterIn the event this information is protected by the Federal Confidentiality of Alcohol and Drug Abuse Patient Records regulations: The Federal rules restrict any use of the information to criminally investigate or prosecute any alcohol or drug abuse patient.[facility] CenterIn the event this information is protected by the Federal Confidentiality of Alcohol and Drug Abuse Patient Records regulations: The Federal rules restrict any use of the information to criminally investigate or prosecute any alcohol or drug abuse patient.[facility] CenterIn the event this information is protected by the Federal Confidentiality of Alcohol and Drug Abuse Patient Records regulations: The Federal rules restrict any use of the information to criminally investigate or prosecute any alcohol or drug abuse patient.[facility] CenterIn the event this information is protected by the Federal Confidentiality of Alcohol and Drug Abuse Patient Records regulations: The Federal rules restrict any use of the information to criminally investigate or prosecute any alcohol or drug abuse patient.[facility] CenterIn the event this information is protected by the Federal Confidentiality of Alcohol and Drug Abuse Patient Records regulations: The Federal rules restrict any use of the information to criminally investigate or prosecute any alcohol or drug abuse patient.[facility] CenterIn the event this information is protected by the Federal Confidentiality of Alcohol and Drug Abuse Patient Records regulations: The Federal rules restrict any use of the information to criminally investigate or prosecute any alcohol or drug abuse patient.[facility] CenterIn the event this information is protected by the Federal Confidentiality of Alcohol and Drug Abuse Patient Records regulations: The Federal rules restrict any use of the information to criminally investigate or prosecute any alcohol or drug abuse patient.[facility] CenterIn the event this information is protected by the Federal Confidentiality of Alcohol and Drug Abuse Patient Records regulations: The Federal rules restrict any use of the information to criminally investigate or prosecute any alcohol or drug abuse patient.[facility] CenterIn the event this information is protected by the Federal Confidentiality of Alcohol and Drug Abuse Patient Records regulations: The Federal rules restrict any use of the information to criminally investigate or prosecute any alcohol or drug abuse patient.[facility] CenterIn the event this information is protected by the Federal Confidentiality of Alcohol and Drug Abuse Patient Records regulations: The Federal rules restrict any use of the information to criminally investigate or prosecute any alcohol or drug abuse patient.[facility] CenterIn the event this information is protected by the Federal Confidentiality of Alcohol and Drug Abuse Patient Records regulations: The Federal rules restrict any use of the information to criminally investigate or prosecute any alcohol or drug abuse patient.[facility] CenterIn the event this information is protected by the Federal Confidentiality of Alcohol and Drug Abuse Patient Records regulations: The Federal rules restrict any use of the information to criminally investigate or prosecute any alcohol or drug abuse patient.[facility] CenterIn the event this information is protected by the Federal Confidentiality of Alcohol and Drug Abuse Patient Records regulations: The Federal rules restrict any use of the information to criminally investigate or prosecute any alcohol or drug abuse patient.[facility] CenterIn the event this information is protected by the Federal Confidentiality of Alcohol and Drug Abuse Patient Records regulations: The Federal rules restrict any use of the information to criminally investigate or prosecute any alcohol or drug abuse patient.[facility] CenterIn the event this information is protected by the Federal Confidentiality of Alcohol and Drug Abuse Patient Records regulations: The Federal rules restrict any use of the information to criminally investigate or prosecute any alcohol or drug abuse patient.[facility] CenterIn the event this information is protected by the Federal Confidentiality of Alcohol and Drug Abuse Patient Records regulations: The Federal rules restrict any use of the information to criminally investigate or prosecute any alcohol or drug abuse patient.[facility] CenterIn the event this information is protected by the Federal Confidentiality of Alcohol and Drug Abuse Patient Records regulations: The Federal rules restrict any use of the information to criminally investigate or prosecute any alcohol or drug abuse patient.[facility] CenterIn the event this information is protected by the Federal Confidentiality of Alcohol and Drug Abuse Patient Records regulations: The Federal rules restrict any use of the information to criminally investigate or prosecute any alcohol or drug abuse patient.[facility] CenterIn the event this information is protected by the Federal Confidentiality of Alcohol and Drug Abuse Patient Records regulations: The Federal rules restrict any use of the information to criminally investigate or prosecute any alcohol or drug abuse patient.[facility] CenterIn the event this information is protected by the Federal Confidentiality of Alcohol and Drug Abuse Patient Records regulations: The Federal rules restrict any use of the information to criminally investigate or prosecute any alcohol or drug abuse patient.[facility] CenterIn the event this information is protected by the Federal Confidentiality of Alcohol and Drug Abuse Patient Records regulations: The Federal rules restrict any use of the information to criminally investigate or prosecute any alcohol or drug abuse patient.[facility] CenterIn the event this information is protected by the Federal Confidentiality of Alcohol and Drug Abuse Patient Records regulations: The Federal rules restrict any use of the information to criminally investigate or prosecute any alcohol or drug abuse patient.[facility] CenterIn the event this information is protected by the Federal Confidentiality of Alcohol and Drug Abuse Patient Records regulations: The Federal rules restrict any use of the information to criminally investigate or prosecute any alcohol or drug abuse patient.[facility] CenterIn the event this information is protected by the Federal Confidentiality of Alcohol and Drug Abuse Patient Records regulations: The Federal rules restrict any use of the information to criminally investigate or prosecute any alcohol or drug abuse patient.[facility] CenterIn the event this information is protected by the Federal Confidentiality of Alcohol and Drug Abuse Patient Records regulations: The Federal rules restrict any use of the information to criminally investigate or prosecute any alcohol or drug abuse patient.[facility] CenterIn the event this information is protected by the Federal Confidentiality of Alcohol and Drug Abuse Patient Records regulations: The Federal rules restrict any use of the information to criminally investigate or prosecute any alcohol or drug abuse patient.[facility] CenterIn the event this information is protected by the Federal Confidentiality of Alcohol and Drug Abuse Patient Records regulations: The Federal rules restrict any use of the information to criminally investigate or prosecute any alcohol or drug abuse patient.[facility] CenterIn the event this information is protected by the Federal Confidentiality of Alcohol and Drug Abuse Patient Records regulations: The Federal rules restrict any use of the information to criminally investigate or prosecute any alcohol or drug abuse patient.[facility] CenterIn the event this information is protected by the Federal Confidentiality of Alcohol and Drug Abuse Patient Records regulations: The Federal rules restrict any use of the information to criminally investigate or prosecute any alcohol or drug abuse patient.[facility] CenterIn the event this information is protected by the Federal Confidentiality of Alcohol and Drug Abuse Patient Records regulations: The Federal rules restrict any use of the information to criminally investigate or prosecute any alcohol or drug abuse patient.[facility] CenterIn the event this information is protected by the Federal Confidentiality of Alcohol and Drug Abuse Patient Records regulations: The Federal rules restrict any use of the information to criminally investigate or prosecute any alcohol or drug abuse patient.[facility] CenterIn the event this information is protected by the Federal Confidentiality of Alcohol and Drug Abuse Patient Records regulations: The Federal rules restrict any use of the information to criminally investigate or prosecute any alcohol or drug abuse patient.[facility] CenterIn the event this information is protected by the Federal Confidentiality of Alcohol and Drug Abuse Patient Records regulations: The Federal rules restrict any use of the information to criminally investigate or prosecute any alcohol or drug abuse patient.[facility] CenterIn the event this information is protected by the Federal Confidentiality of Alcohol and Drug Abuse Patient Records regulations: The Federal rules restrict any use of the information to criminally investigate or prosecute any alcohol or drug abuse patient.[facility] CenterIn the event this information is protected by the Federal Confidentiality of Alcohol and Drug Abuse Patient Records regulations: The Federal rules restrict any use of the information to criminally investigate or prosecute any alcohol or drug abuse patient.[facility] CenterIn the event this information is protected by the Federal Confidentiality of Alcohol and Drug Abuse Patient Records regulations: The Federal rules restrict any use of the information to criminally investigate or prosecute any alcohol or drug abuse patient.[facility] CenterIn the event this information is protected by the Federal Confidentiality of Alcohol and Drug Abuse Patient Records regulations: The Federal rules restrict any use of the information to criminally investigate or prosecute any alcohol or drug abuse patient.[facility] CenterIn the event this information is protected by the Federal Confidentiality of Alcohol and Drug Abuse Patient Records regulations: The Federal rules restrict any use of the information to criminally investigate or prosecute any alcohol or drug abuse patient.[facility] CenterIn the event this information is protected by the Federal Confidentiality of Alcohol and Drug Abuse Patient Records regulations: The Federal rules restrict any use of the information to criminally investigate or prosecute any alcohol or drug abuse patient.[facility] CenterIn the event this information is protected by the Federal Confidentiality of Alcohol and Drug Abuse Patient Records regulations: The Federal rules restrict any use of the information to criminally investigate or prosecute any alcohol or drug abuse patient.[facility] CenterIn the event this information is protected by the Federal Confidentiality of Alcohol and Drug Abuse Patient Records regulations: The Federal rules restrict any use of the information to criminally investigate or prosecute any alcohol or drug abuse patient.[facility] CenterIn the event this information is protected by the Federal Confidentiality of Alcohol and Drug Abuse Patient Records regulations: The Federal rules restrict any use of the information to criminally investigate or prosecute any alcohol or drug abuse patient.[facility] CenterIn the event this information is protected by the Federal Confidentiality of Alcohol and Drug Abuse Patient Records regulations: The Federal rules restrict any use of the information to criminally investigate or prosecute any alcohol or drug abuse patient.[facility] Reason for Visit (unrecogniz ed section and content) Reason Comments Consult Specialty Diagnoses / Procedures Referred By Cassandra mccauley Referred To Contact Urology / UROLOGY Diagnoses Renal mass renal mass Procedures OFFICE/OUTPATIENT NEW MODERATE MDM 45 MINUTES NEW UROL Self Abouapelon, MD Bing [address] [place] [address] Phone: tel: fax: Referral ID Status Reason Start Date Expiration Date Visits Re quested Visits Authorized [id number] Closed 01/03/2025 10/01/2025 1 1 Reason Comments REnal Biopsy Reason Comments BIOPSY APPOINTMENT Reason Comments Pre-Op Visit Specialty Diagnoses / Procedures Referred By Cassandra mccauley Referred To Contact Anesthesiology / ANESTHESIOLOGY Diagnoses DOS 02/27 ROBOTIC LAPAROSCOPIC NEPHRECTOMY PARTIAL [14418] - Abdomen quadrant upper - Left Procedures COMPLETE PACC Bing Arvizu MD [address] [place] [address] Phone: tel: fax: 2, Pacc Giorgio [address] [place] [address] Phone: tel:[phone] Referral ID Status Reason Start Date Expiration Date V isits Requested Visits Authorized [id number] New Request 02/07/2025 05/08/2025 1 1 Reason [...] [place] [address] [place] [address] Phone: tel: Ernesto Phoenix MD [address] [place] [address] Phone: tel: fax: Referral ID Status Reason Start Date Expiration Date Visits Re quested Visits Authorized [id number] Closed 03/17/2025 10/01/2025 1 1 Reason Comments First Time Treatment Education Specialty Diagnoses / Procedures Referred By Contac t Referred To Contact HEMATOLOGY/ONCOLOGY Diagnoses Examination Chemo ed Keytruda Pt qwil be done with Pet scan Around 10:45am Procedures OFFICE/OUTPATIENT ESTABLISHED MOD MDM 30 MIN CHEMO EDUCATION Ernesto Phoenix MD [address] [place] [address] Phone: tel: fax: 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, RN [address] [place] [address] Phone: tel: Referral ID Status Reason Start Date Expiration Date Visits Re quested Visits Authorized [id number] Closed 04/01/2025 10/01/2025 1 1 Reason Comments Radiology NM Specialty Diagnoses / Procedures Referred By Contac t Referred To Contact MOLECULAR & FUNCTIONAL IMAGING Diagnoses Renal cell carcinoma of left kidney (HCC) Procedures NM PET/CT SKULL-THIGH INITIAL PET IMAGING CT ATTENUATION SKULL BASE MID-THIGH Ernesto Phoenix MD [address] [place] [address] [place] [address] Phone: tel: fax: Molecular Imaging [address] [place] [address] Phone: tel: Referral ID Status Reason Start Date Expiration Date V isits Requested Visits Authorized [id number] Closed Auto-Generate d Referral 04/01/2025 04/17/2026 1 1 Reason Comments Release back to work letter Reason Comments Research IRB [id number] Informed Consent Reason Comments Renal Cell Cancer Reason Comments Referral Information Reason Onset Date Comments Refill Request 04/09/2025 Reason Comments Consult Specialty Diagnoses / Procedures [facility] To Contact HEMATOLOGY/ONCOLOGY Diagnoses Renal cell carcinoma of left kidney (HCC) Procedures CONSULT TO HEMATOLOGY/ONCOLOGY OFFICE/OUTPATIENT [facility] MDM 60 MINUTES Ernesto Phoenix MD [address] [place] [address] [place] [address] Phone: tel: fax: Hematology/Oncology [address] [place] [address] Phone: tel: Referral ID Status Reason Start Date Expiration Date V isits Requested Visits Authorized [id number] Closed PCP Requested Referral 04/08/2025 04/07/2026 1 [...] Assessment Specialty Diagnoses / Procedures [facility] Referred To Contact Nutrition / [facility] Diagnoses Renal cell carcinoma of left kidney (HCC) Renal cell carcinoma of left kidney (HCC) [C64.2] Procedures SYNCHRONOUS AUDIO-ONLY VISIT EST HIGH MDM 40 MIN PROVIDER SPECIALTY PHONE CALL [facility] [address] [facility] [place] [address] Phone: tel: Yesica Calderon, RD [address] [place] [address] Phone: tel: Referral ID Status Reason Start Date Expiration Date Visits Re quested Visits Authorized [id number] Closed 04/17/2025 10/01/2025 1 1 Reason Comments Care Coordination Medication question Reason Comments Care Coordination Treatment prep Reason Comments Care Coordination Medication update Reason Comments Renal Cell Cancer 1 week follow up Specialty Diagnoses / Procedures Referred By Contsandie t Referred To Contact Hematology/Oncology / HEMATOLOGY/ONCOLOGY Diagnoses 1 week followup with lab/ Tox check Procedures EST PATIENT Ernesto Phoenix MD [address] [place] [address] [place] [address] Phone: tel: fax: Ernesto Phoenix MD [address] [place] [address] [place] [address] Phone: tel: fax: Referral ID Status Reason Start Date Expiration Date V isits Requested Visits Authorized [id number] Authorized 05/16/2025 10/01/2025 99 99 Reason Comments Medication Assistance Program [facility] drug application approved Reason Comments Renal Cell Cancer Treatment visit Reason Comments Care Coordination Shortness of breath, bilateral lower extremity swelling Reason Comments Radiology US FOR RECORDS PERTAINING TO PATIENTS WHO ARE [...] BE BASED ON THE PRIMARY CLINICAL RECORDS. [employer] provides no warranty or guarantee of the accuracy or completeness of information in this document.
--- NOTE | 2025-06-21 08:04 | US_ITS ---
The [address] [address] Patient Name: HARMAN LE MRN: [id number] date: 1960 Sex: M Assigned Patient Location: US Current Patient Location: US Accession/Order Number: [id number] Exam Date: 06/21/2025 08:09 Report Date: 06/21/2025 10:29 At the request of: SOFYA MENESES Procedure: US renal BI BILATERAL RENAL AND BLADDER ULTRASOUND CLINICAL HISTORY: STAGE 4 CHRONIC KIDNEY DISEASE N18.9 COMPARISON: CT abdomen pelvis 12/14/2024 Estimation of renal size is approximately 13.1 x 5.9 x 7.0 cm on the right. Multiple cysts identified right kidney largest 6.4 x 6.7 x 3.4 cm within the mid to inferior pole. Otherwise, no contour deforming mass, shadowing stone or hydronephrosis. Left kidney surgically absent. Within the nephrectomy bed, there is focal soft tissue noted 7.4 x 3.6 x 5.9 cm in size appearing without increased vascular flow. The urinary bladder is partially distended with a volume of 162 ml. No shadowing stone or focal lesion. US/US renal BI IMPRESSION: NO OBSTRUCTIVE UROPATHY. SOFT TISSUES DENSITY WITHIN THE LEFT NEPHRECTOMY BED 7.4 CM IN SIZE COULD REPRESENT POSTSURGICAL CHANGE VERSUS EVOLVING SEROMA OR HEMATOMA. CONSIDER SHORT-TERM IMAGING FOLLOW-UP. Impression dictated by: Geovnai Weeks M.D. 06/21/2025 10:29 AM Dictation Location: [place] [address] Electronically authenticated by: [id number] Y Date: 06/21/2025 10:29
[2025-06-21 09:22] LABS: Hematocrit 36.4 % (42.0-54.0); Hemoglobin 11.7 g/dL (14.0-18.0); Mean Corpuscular HGB Conc 32.1 g/dL (29.9-35.2); Mean Corpuscular Hemoglobin 26.5 pg (25.9-34.0); Mean Corpuscular Volume 82.4 fL (80.0-94.0); Platelet Count 142 10^3/uL (150-450); Red Blood Count 4.42 10^6/uL (4.70-6.10); White Blood Count 6.3 10^3/uL (4.0-11.0)
[2025-06-21 10:11] LABS: Albumin Level 3.2 g/dL (3.4-5.0); Anion Gap 11.4; Blood Urea Nitrogen 31.0 mg/dL (7.0-18.0); Calcium 8.5 mg/dL (8.5-10.1); Carbon Dioxide 29.8 mmol/L (21.0-32.0); Chloride 102 mmol/L (98-107); Estimated GFR (African America 40 (>=60 mL/min/1.73m^2); Estimated GFR (Non-African Ame 33 (>=60 mL/min/1.73m^2); Glucose 108 mg/dL (74-106); Magnesium 1.9 mg/dL (1.8-2.4); Potassium 4.2 mmol/L (3.5-5.1); Sodium 139 mmol/L (136-145); Uric Acid 5.0 mg/dL (3.5-7.2)
[2025-06-21 10:17] LABS: Iron 41.0 ug/dL (65.0-175.0); Percent Iron Saturation 16.2 %; Total Iron Binding Capacity 253.0 ug/dL (250.0-450.0)
[2025-06-21 10:31] LABS: Glucose Urine UA NEGATIVE (NEGATIVE)
[2025-06-21 10:56] LABS: Protein Creatinine Ratio Urine 2.86; Total Protein Urine Random 244.2 mg/dL (<=11.9)
[2025-06-21 11:10] LABS: Ferritin 119.0 ng/mL (26.0-388.0); Folate 8.00 ng/mL (8.60-58.90)
[2025-06-22 06:37] LABS: Vitamin B12 515 pg/mL (232-1245)
== END 2025-06-21 07:57 | disposition home or self-care (01) ==
PROVIDERS: PCP Nurse Practitioner Family; Visit Provider Internal Medicine Nephrology
DX: E79.0 Hyperuricemia without signs of inflammatory arthritis and tophaceous disease (principal); N18.9 Chronic kidney disease, unspecified; D63.1 Anemia in chronic kidney disease; E11.21 Type 2 diabetes mellitus with diabetic nephropathy; I12.9 Hypertensive chronic kidney disease with stage 1 through stage 4 chronic kidney disease, or unspecified chronic kidney disease; Z90.5 Acquired absence of kidney; N18.4 Chronic kidney disease, stage 4 (severe)
CPT/HCPCS: 36415; 76775; 80069; 81003; 82306; 82570; 82607; 82728; 82746; 83540; 83550; 83735; 83970; 84156; 84550; 85027